=== PATIENT | female | born 1970 | race Caucasian/White ===

== ENCOUNTER 2021-10-04 09:16 | Outpatient (CLI) | payer BC, OTHER, SELFPAY ==
[2021-10-04 13:38] LABS: Basophils Absolute Auto 0.02 K/uL (0.00-0.30); Basophils Percent Auto 0.3 % (0.0-3.0); Eosinophils Absolute Auto 0.13 K/uL (0.00-0.50); Eosinophils Percent Auto 2.1 % (0.0-7.0); Hematocrit 39.6 % (33.0-51.0); Hemoglobin* 13.7 gm/dL (12.0-16.0); Immature Granulocytes Abs Auto 0.01 K/uL (0.00-0.30); Lymphocytes Absolute Auto 1.54 K/uL (0.90-2.90); Lymphocytes Percent Auto 24.7 % (20-44); Mean Corpuscular HGB Conc 35 gm/dL (32-36); Mean Corpuscular Hemoglobin 32 pg (26-34); Mean Corpuscular Volume 92 fL (80-100); Monocytes Percent Auto 8.8 % (0.0-11.0); Neutrophils Absolute Auto 3.99 K/uL (1.7-7.0); Neutrophils Percent Auto 63.9 % (42.0-72.0); Platelet Count* 293 K/uL (140-440); RDW Coefficient of Variation % 12.2 % (11.5-15.5); Red Blood Count 4.32 m/uL (4.00-5.20); White Blood Count* 6.24 K/uL (4.50-11.00)
[2021-10-04 13:40] LABS: Slide Review Reflex No
[2021-10-04 13:46] LABS: Albumin* 4.6 g/dL (3.3-5.0); Chloride* 102 mmol/L (96-114); Potassium* 4.1 mmol/L (3.6-5.1); Sodium* 136 mmol/L (135-149)
[2021-10-04 13:48] LABS: Cholesterol* 179 mg/dL (90-199)
[2021-10-04 13:49] LABS: Alanine Aminotransferase* 21 U/L (4-35); Alkaline Phosphatase* 65 U/L (40-150); Aspartate Amino Transferase* 29 U/L (12-35); Bilirubin Total* 0.6 mg/dL (0.1-1.5); Blood Urea Nitrogen* 15 mg/dL (7-30); Calcium* 9.3 mg/dL (8.4-10.6); Carbon Dioxide* 24 mmol/L (20-32); Creatinine* 0.7 mg/dL (0.5-1.5); Estimated Glomerular Filt Rate 104 ml/min; Glucose* 93 mg/dL (60-115); HDL Cholesterol* 69 mg/dL (>=50); LDL Cholesterol Calculated 88 mg/dL (<100); Total Protein* 8.1 g/dL (6.0-8.3); Triglycerides* 109 mg/dL (40-149)
[2021-10-04 14:02] LABS: Free T4 Free Thyroxine* 1.19 ng/dL (0.70-1.85)
[2021-10-05 12:42] LABS: Total T3 73 ng/dL (80-200)
== END 2021-10-04 09:17 | disposition home or self-care (01) ==
PROVIDERS: PCP Nurse Practitioner Family; Visit Provider Nurse Practitioner Family
DX: Z00.00 Encounter for general adult medical examination without abnormal findings (principal); E03.9 Hypothyroidism, unspecified; E78.5 Hyperlipidemia, unspecified; R10.31 Right lower quadrant pain; F41.9 Anxiety disorder, unspecified
CPT/HCPCS: 36415; 80053; 80061; 84439; 84443; 84480; 85025

== ENCOUNTER 2021-10-22 11:42 | Outpatient (CLI) | payer BC, OTHER, SELFPAY ==
--- OUTSIDE RECORDS SUMMARY | 2021-10-22 11:45 | XMS_ITS | Encounter Summary ---
:1970 Author Organization [facility] Address [address] [place] [address] Care Team Providers Name Role Phone Tiffanie Mcgovern APRN, KYLE Primary Care Provider [phone] Reason for Visit Reason Comments Med Refill Encounter Details Date Type Department Care Team Description 06/11/2021 Refill SE Endocrinology Muthusamy, Postablative hypothyroidism [address] [facility] MD Valerie [place], [place] [address] Social History Tobacco Use Types Packs/Day Years Used Date Former Smoker Quit: 10/2018 Smokeless Tobacco: Never Used Alcohol Use Standard Drinks/Week Comments Yes 0 (1 standard drink = 0.6 oz pure alcoho l) Alcohol Habits Answer Date Recorded How often do you have a drink containing alcohol? Never 06/09/2019 How many drinks containing alcohol do you have on a typical Not asked day when you are drinking? How often do you have six or more drinks on one occasion? No t asked Comment: Not asked Sex Assigned at Date Recorded Female 10/20/2019 7:44 AM CDT documented as of this encounter Miscellaneous Notes Telephone Encounter - Chelsea Romero RN - 06/11/2021 8:26 AM CDT Please refuse, patient has switched cares to another provider. Telephone Encounter - Jo Ann Anaya MA - 06/11/2021 7:34 AM CDT Images from the original note were not included. See patient message note dated 03/04/21: Will forward rx request to PCP. Telephone Encounter - Kathleen Martinez LPN - 06/11/2021 7:22 AM CDT Last visit in provider department: 09/27/2020 Last visit requested medication was discussed: 09/27/2020 Per note on 09/27/2020 Follow-up visit will be arranged in 6 months with repeat TSH and free T4. If stable at that point, we can consider transitioning care to primary care provider. Last Rx: 09/27/2020 # 90, 1 refill Requested Prescriptions Pending Prescriptions Disp Refills ??? levothyroxine (SYNTHROID) 100 MCG tablet [Pharmacy Med Name: LEVOTHYROXINE SODIUM 100MCG TABS] 90 tablet 1 Sig: TAKE ONE TABLET BY MOUTH DAILY - 6 DAYS OF THE WEEK FROM FRIDAY THRU FRIDAY , AND TAKE ONE AND ONE-HALF TABLETS ON FRIDAY. Labs: Component Latest Ref Rng & Units 02/21/2021 Free T4 0.78 - 2.19 ng/dL 1.24 Component Latest Ref Rng & Units 02/21/2021 TSH 0.46 - 4.68 mIU/L 2.17 No pending labs Vitals: BP Readings from Last 2 Encounters: 02/27/21 126/84 09/20/20 126/88 Upcoming appointment with provider: Visit date not found Patient is due for appointment, and labs.. PSR/Nurse: Please contact patient to assist with scheduling. documented in this encounter Plan of Treatment Not on filedocumented as of this encounter Visit Diagnoses Diagnosis Postablative hypothyroidism Other postablative hypothyroidism documented in this encounter Care Teams Air Compressor Engineer Relationship Specialty Start Date End Date Tiffanie Mcgovern, DEVELOPMENT ARCHITECT, WARES SORTER PCP - General Family Medicine 02/27/[address] [place] [address] ERNESTO MACEDO [id number] documented as of this encounter
--- OUTSIDE RECORDS SUMMARY | 2021-10-22 11:45 | XMS_ITS | Encounter Summary ---
:1970 Author Organization [facility] Address [address] [place] [address] Care Team Providers Name Role Phone Roopa Lopez MD Primary Care Provider Encounter Details Date Type Department Care Team Description 10/10/2020 Orders Only Roopa Caldwell Other migraine without [address] MD Raheel status migrainosus, not Robert Guerrero MD [phone] intractable (Primary [phone] [facility]) [place] [address] Social History Tobacco Use Types Packs/Day Years [...] AM CDT documented as of this encounter Plan of Treatment Not on filedocumented as of this encounter Visit Diagnoses Diagnosis Other migraine without status migrainosu s, not intractable - Primary documented in this encounter Care Teams Social Sciences Department Chair Relationship Specialty Start Date End Date Roopa Lopez MD PCP - General Family Medicine 07/15/19 02/26/[address] [place] [address] documented as of this encounter
--- OUTSIDE RECORDS SUMMARY | 2021-10-22 11:45 | XMS_ITS | Encounter Summary ---
:1970 Author Organization [facility] Address [address] [place] [address] Care Team Providers Name Role Phone Roopa Lopez MD Primary Care Provider Reason for Visit Reason Comments Hypothyroidism Graves' Disease Encounter Details Date Type Department Care Team Description 03/29/2020 [facility] Endocrinology Moriah, Postablative hypothyroidism (Primary Dx); [facility] MD Valerie Graves disease; [place] [address] Stress at home [phone] Social History Tobacco Use Types Packs/Day Years [...] AM CDT documented as of this encounter Patient Instructions Patient InstructionsValerie Major MD - 03/29/2020 9:00 AM CST 1. Call COVID triage line at [phone] 2. Continue the same dose of Levothyroxine 3. Recheck thyroid labs in 3 months ISITIONS LOGISTICS ANALYST documented in this encounter Progress Notes Valerie Major MD - 03/29/2020 9:00 AM CST Estab Patient Telehealth Primary Care Provider: Roopa Lopez MD Chief Complaint: Follow-up of postablative hypothyroidism and Graves' disease Subjective Patient ID: Laura Novak is a 49 y.o. female. DISEASE SUMMARY: Patient presented for initial consultation on 07/02/2019 with completely suppressed TSH with elevated free T4 and free T3 of 3.30 (0.78-2.19) and 7 (2.8-4.4) and thyrotropin receptor antibody of 2.76 (0-1.75). Her presenting symptoms include fatigue and generalized achiness since April 2019 and symptoms of palpitations, shakiness and sense of pressure in her throat for 1 month. She was initially started on methimazole but opted for radioiodine treatment and methimazole wasdiscontinued on 07/10/2019. She subsequently underwent radioiodine treatment with 14 MCI of I-131 on 07/21/2019. Noted to be hypothyroid and started on levothyroxine replacement in 09/2019. HPI S/p radioiodine treatment with 14 MCI of I-131 on 07/21/2019 Last telemedicine visit in 12/2019. Patient reports having symptoms of achiness and vomiting since yesterday night. No fever. Otherwise was feeling at baseline prior. Taking Levothyroxine appropriately and compliantly. Not taking any interfering supplements. No Biotin intake. Not much concerns with edema/fluid retention. Not taking Furosemide mostly. Continues to have low energy and daytime sleepiness. Denies any sleep concerns. No bowel concerns. Had some palpitations last night but none otherwise. No tremors. Has heat intolerance. Reports some change in mood related to stress at home. Denies any weight change. SOCIAL HISTORY: . Lives with her . Has 2 children aged 21 and 17. 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 Review of systems: As in HPI. All other systems negative. LAB RESULTS Recent Results (from the past 336 hour(s)) T4, free Collection Time: 03/27/20 9:58 AM Result Value Ref Range Free T4 1.17 0.78 - 2.19 ng/dL TSH Collection Time: 03/27/20 9:58 AM Result Value Ref Range TSH, Sensitive 0.87 0.46 - 4.68 mIU/L Outpatient Encounter Medications as of 03/29/2020 Medication Sig Dispense Refill ??? levothyroxine (SYNTHROID) 112 MCG tablet Take 1 tablet daily on empty stomach with water in morning; wait 1/2 hr to eat/drink anything else; separate vitamins to evening 90 tablet 1 ??? LORazepam (ATIVAN) 1 MG tablet May take one tab daily if needed for anxiety 30 tablet 1 ??? sertraline (ZOLOFT) 50 MG tablet TAKE ONE TABLET BY MOUTH EVERY MORNING FOR ANXIETY AND DEPRESSION (Patient taking differently: TAKE 1 TABLET BY MOUTH EVERY MORNING FOR ANXIETY AND DEPRESSION) 90 tablet 3 ??? simvastatin (ZOCOR) 20 MG tablet Take 1 tablet (20 mg total) by mouth every night 90 tablet 3 ??? traZODone (DESYREL) 50 MG tablet Take 1 tablet (50 mg total) by mouth every night 1 to 2 nightly(Patient taking differently: 1 to 2 tablets every night) 90 tablet 3 ??? verapamil ER (VERELAN) 240 MG 24 hr capsule TAKE ONE CAPSULE BY MOUTH ONCE DAILY 90 capsule 3 ??? [DISCONTINUED] levothyroxine (SYNTHROID) 112 MCG tablet Take 1 tablet daily on empty stomach with water in morning; wait 1/2 hr to eat/drink anything else; separate vitamins to evening 90 tablet 1 ??? Bacillus Coagulans-Inulin (PROBIOTIC-PREBIOTIC PO) Take 1-2 each by mouth 1 (one) time each day Chewables ??? furosemide (LASIX) 20 MG tablet TAKE ONE TABLET BY MOUTH EVERY DAY (Patient not taking: Reportedon 12/28/2019) 90 tablet 1 No facility-administered encounter medications on file as of 03/29/2020. Allergies as of 03/29/2020 - Reviewed 03/29/2020 Allergen Reaction Noted ??? Morphine Itching 07/13/2010 ??? Oxycodone-acetaminophen Itching 07/13/2010 Objective Visit Vitals Smoking Status Former Smoker Physical Exam General-appears well, no apparent distress Assessment/Plan Diagnoses and all orders for this visit: Postablative hypothyroidism - levothyroxine (SYNTHROID) 112 MCG tablet; Take 1 tablet daily on empty stomach with water in morning; wait 1/2 hr to eat/drink anything else; separate vitamins to evening - T4, free; Future - TSH; Future - T4, free; Future - TSH; Future Graves disease Stress at home S/p radioiodine treatment with 14 MCI of I-131 on 07/21/2019 1. Her thyroid levels are currently optimal and she will continue on the same dose of Levothyroxine. 2. Follow-up thyroid labs will be arranged in 3 months and follow-up visit in 6 months with repeat TSH and free T4. 3. Patient otherwise takes her levothyroxine optimally and compliantly. 4. Patient was given contact for [place] [address] triage line with acute onset symptoms including myalgias. 5. Also with ongoing stress in life, recommended patient to communicate with us if desiring to proceed with psychology counseling at any time.. Patient understands and agrees with the above plan. ISITIONS LOGISTICS ANALYST Belem Moraes - 03/29/2020 9:00 AM CST Scheduled. Patient will do labs in 3 months in [place] ISITIONS LOGISTICS ANALYST documented in this encounter Plan of Treatment Not on filedocumented as of this encounter Results TSH (09/25/2020 8:21 AM CDT) athologist Signature TSH, Sensitive 3.02 0.46 - 09/25/2020 [facility] 4.68 mIU/L 2:31 PM CDT [facility] Comment: The results from this or any other diagn ostic test should be used and interpreted only in the context of the overall clinical picture. Biotin levels in serum remain elevated f or up to 24 hours after oral or intravenous biotin adminis tration and may interfere with this assay to produce unr eliable results. Heterophilic antibodies in serum or plas ma samples may cause interference in immunoassays. ??Exposure to animal antigens, either in the environment or as part of treatment or imaging procedures, may have circulating anti-an imal antibodies present. These antibodies may interfere with the assay reagents to produce unreliable results. ??Results which are inconsistent with clinical observations indicate the need for additional testing. Specimen Anatomical Collection Method Collection Time Receive d Time (Source) Location / / Volume Laterality Blood 09/25/2020 8:21 AM 1 CDT 12:58 PM CDT Valerie Major MD LAB BLOOD ORDERABLES Performing Organization Address [facility]/ZIP [facility] [facility] [address] [place] [address] T4, free (09/25/2020 8:21 AM CDT) P athologist Signature Free T4 1.10 0.78 - 2.19 09/25/2020 [facility] ng/dL 2:31 PM CDT [facility] Comment: The results from this or any other diagn ostic test should be used and interpreted only in the context of the overall clinical picture. Heterophilic antibodies in serum or plas ma samples may cause interference in immunoassays. ??Exposure to animal antigens, either in the environment or as part of treatment or imaging procedures, may have circulating anti-an imal antibodies present. These antibodies may interfere with the assay reagents to produce unreliable results. ??Results which are inconsistent with clinical observations indicate the need for additional testing. Specimen Anatomical Collection Method Collection Time Receive d Time (Source) Location / / Volume Laterality Blood 09/25/2020 8:21 AM 1 CDT 12:58 PM CDT Valerie Major MD LAB BLOOD ORDERABLES Performing Organization Address [facility] Phon e Number [facility] [address] [place] [phone] (ABNORMAL) TSH (06/27/2020 8:27 AM CDT) Analysis Performed At Patho logist Time Signature TSH, Sensitive 0.26 (L) 0.46 - 06/27/2020 [facility] 4.68 mIU/L 2:55 PM CDT [facility] Comment: The results from this or any other diagn ostic test should be used and interpreted only in the context of the overall clinical picture. Biotin levels in serum remain elevated f or up to 24 hours after oral or intravenous biotin adminis tration and may interfere with this assay to produce unr eliable results. Heterophilic antibodies in serum or plas ma samples may cause interference in immunoassays. ??Exposure to animal antigens, either in the environment or as part of treatment or imaging procedures, may have circulating anti-an imal antibodies present. These antibodies may interfere with the assay reagents to produce unreliable results. ??Results which are inconsistent with clinical observations indicate the need for additional testing. Specimen Anatomical Collection Method Collection Time Receive d Time (Source) Location / / Volume Laterality Blood 06/27/2020 8:27 AM 1 1:08 CDT PM CDT Valerie Major MD LAB BLOOD ORDERABLES Performing Organization Address [facility] Phon e Number [facility] [address] [place] [phone] T4, free (06/27/2020 8:27 AM CDT) athologist Signature Free T4 1.31 0.78 - 2.19 06/27/2020 [facility] ng/dL 2:53 PM CDT [facility] Comment: The results from this or any other diagn ostic test should be used and interpreted only in the context of the overall clinical picture. Heterophilic antibodies in serum or plas ma samples may cause interference in immunoassays. ??Exposure to animal antigens, either in the environment or as part of treatment or imaging procedures, may have circulating anti-an imal antibodies present. These antibodies may interfere with the assay reagents to produce unreliable results. ??Results which are inconsistent with clinical observations indicate the need for additional testing. Specimen Anatomical Collection Method Collection Time Receive d Time (Source) Location / / Volume Laterality Blood 06/27/2020 8:27 AM 1 1:08 CDT PM CDT Valerie Major MD LAB BLOOD ORDERABLES Performing Organization Address City/[facility] Code [facility] e Number [facility] [address] [place] [phone] documented in this encounter Visit Diagnoses Diagnosis Postablative hypothyroidism - Primary Other postablative hypothyroidism Graves disease Toxic diffuse goiter without mention of thyrotoxic crisis or storm Stress at home documented in this encounter Care Teams Paver Relationship Specialty Start Date End Date Roopa Lopez MD PCP - General Family Medicine 07/15/19 02/26/[address] [place] [address] documented as of this encounter
--- OUTSIDE RECORDS SUMMARY | 2021-10-22 11:45 | XMS_ITS | Encounter Summary ---
:1970 Author Organization [facility] Address [address] [place] [address] Care Team Providers Name Role Phone Roopa Lopez MD Primary Care Provider Encounter Details Date Type Department Care Team Description 06/27/2020 Lab Robert Guerrero History of coronary vasospas m; [address] Mixed hyperlipidemia; [place] [address] Essential hypertension; [phone] Postablative hy pothyroidism Social History Tobacco Use Types Packs/Day Years [...] Not on filedocumented as of this encounter Procedures Procedure Name Priority Date/Time Associated Diagnosis Comme nts GLOMERULAR FILTRATION Routine 06/27/2020 8:27 Essential hypert ension Results for this RATE AM CDT procedure are i n the results section. TSH Routine 06/27/2020 8:27 Postablative Results for this AM CDT hypothyroidism procedure are in the results section. T4, FREE Routine 06/27/2020 8:27 Postablative Results for this AM CDT hypothyroidism procedure are in the results section. MAGNESIUM Routine 06/27/2020 8:27 History of coronary Resul ts for this AM CDT vasospasm procedure are i n the results section. HEMOGLOBIN A1C Routine 06/27/2020 8:27 Mixed hyperlipidemia Re sults for this AM CDT procedure are i n the results section. LIPID PANEL Routine 06/27/2020 8:27 Mixed hyperlipidemia Resu lts for this AM CDT procedure are i n the results section. COMPREHENSIVE Routine 06/27/2020 8:27 Essential hypertension R esults for this METABOLIC PANEL AM CDT procedure ar e in the results section. documented in this encounter Results Glomerular filtration rate (GFR) (06/27/2020 8:27 AM CDT) athologist Signature GFR >60 06/27/2020 [facility] 2:13 PM CDT [facility] >60 06/27/2020 [facility] Latvian GFR 2:13 PM CDT [facility] Comment: GFR calculated from serum creatinine v alue Chronic Kidney Disease less than 60 mL/m in/1.73 m2 Kidney Failure less than 15 mL/min/1.73 m2 Note: effective 07/23/06 IDMS-Traceable MDRD Study Equation used. Specimen Anatomical Collection Method Collection Time Receive d Time (Source) Location / / Volume Laterality 06/27/2020 8:27 AM 8:27 CDT AM CDT Catalina Pennington APRN, BOWLING OR SKATING FRONT DESK CLERK LAB BLOOD ORDERABLES Performing Organization Address City/State/ZIP Code Phon e Number [facility] [address] [place] [address] T4, free (06/27/2020 8:27 AM CDT) athologist Signature Free T4 1.31 0.78 - 2.19 06/27/2020 [facility] ng/dL 2:53 PM CDT [facility] Comment: [...] MD LAB BLOOD ORDERABLES Performing Organization Address [facility] Code Phon e Number [facility] [address] [place] [address] (ABNORMAL) TSH (06/27/2020 8:27 AM CDT) Analysis Performed At Patho logist Time Signature TSH, Sensitive 0.26 (L) 0.46 - 06/27/2020 [facility] 4.68 mIU/L 2:55 PM CDT [facility] Comment: The results from this [...] MD LAB BLOOD ORDERABLES Performing Organization Address City/[facility] Code Phon e Number [facility] [address] [place] [address] (ABNORMAL) Comprehensive metabolic panel (06/27/2020 8:27 AM CDT) Patholo gist Method Time Signature Total Protein 7.3 6.3 - 8.2 06/27/2020 [facility] g/dL 2:13 PM [facility] Albumin, Serum 4.2 3.5 - 5.0 06/27/2020 [facility] g/dL 2:13 PM CDT [facility] Total Bilirubin <0.7 0.1 - 1.0 06/27/2020 [facility] mg/dL 2:13 PM [facility] AST 26 8 - 43 U/L 06/27/2020 [facility] 2:13 PM [facility] Alkaline 66 38 - 128 06/27/2020 [facility] Phosphatase U/L 2:13 PM [facility] ALT (SGPT) 19 0 - 34 U/L 06/27/2020 [facility] 2:13 PM [facility] Sodium 139 135 - 145 06/27/2020 [facility] mEq/L 2:13 PM [facility] Potassium 4.1 3.5 - 5.1 06/27/2020 [facility] mEq/L 2:13 PM [facility] Chloride 106 98 - 107 06/27/2020 [facility] mEq/L 2:13 PM [facility] CO2 27 22 - 29 06/27/2020 [facility] mmol/L 2:13 PM [facility] BUN 17 5 - 25 06/27/2020 [facility] mg/dL 2:13 PM [facility] Creatinine 0.7 0.4 - 1.2 06/27/2020 [facility] mg/dL 2:13 PM [facility] Glucose 105 (H) 70 - 100 06/27/2020 [facility] mg/dL 2:13 PM [facility] Calcium, Total,S 9.3 8.4 - 10.2 06/27/2020 [facility] mg/dL 2:13 PM [facility] Specimen Anatomical Collection Method Collection Time Receive d Time (Source) Location / / Volume Laterality Blood 06/27/2020 8:27 AM CDT 12:50 PM CDT Catalina Pennington APRN, KYLE LAB BLOOD ORDERABLES Performing Organization Address City/State/ZIP Code Phon e Number [facility] [address] [place] [address] Hemoglobin A1c (06/27/2020 8:27 AM CDT) P athologist Signature Hemoglobin A1C 5.4 4.0 - 5.6 06/27/2020 [facility] % A1C 2:09 PM [facility] Comment: Reference Range 4.0-5.6% is for non-preg nant adults >=18 yrs <5.6% ? Non-Diabetic 5.7-6.4% ??Increased risk of Diabetes >=6.5% ?Indicative of Diabetes <7.0% ? ADA goal for glycemic contro l Methodology may not detect all hemoglobi n variants which can affect A1c results. Method certified by National Glycohemoglobin Standardization Program. Specimen Anatomical Collection Method Collection Time Receive d Time (Source) Location / / Volume Laterality Blood 06/27/2020 8:27 AM CDT 12:50 PM CDT Catalina Pennington APRN, CNP LAB BLOOD ORDERABLES Performing Organization Address City/State/ZIP Code Phon e Number [facility] [address] [place] [address] Lipid panel (06/27/2020 8:27 AM CDT) athologist Signature Cholesterol 166 0 - 199 06/27/2020 [facility] mg/dL 2:13 PM [facility] Comment: Recommended by National Cholesterol Education Program (ATP III) -------- Cholesterol Ranges -------- <200 ?Desirable 200-239 ? Borderline high >=240 ? High Triglycerides 126 0 - 149 mg/dL 06/27/2020 2:13 PM T [facility] Comment: -------- TRIG Ranges -------- <150 ?Normal 150-199 ? Borderline high 200-499 ? High >=500 ? Very high HDL 58 40 - 250 mg/dL 06/27/2020 2:13 PM CDT [facility] Comment: -------- HDL Ranges -------- <40 ?Low 40-59 ?Normal >=60 ? Optimal LDL Calculated 83 0 - 99 mg/dL 06/27/2020 2:13 PM CDT [facility] Comment: -------- LDL Ranges -------- <100 ? Optimal 100-129 ?Near optimal/above op timal 130-159 ?Borderline high 160-189 ?High >=190 ?Very high Fasting? Yes 06/27/2020 8:31 AM CDT [facility] Specimen Anatomical Collection Method Collection Time Receive d Time (Source) Location / / Volume Laterality Blood 06/27/2020 8:27 AM 1 CDT 12:50 PM CDT Catalina Pennington APRN, CNP LAB BLOOD ORDERABLES Performing Organization Address City/[facility]/ZIP Code Phon e Number [facility] [address] [place] [phone] Magnesium (06/27/2020 8:27 AM CDT) P athologist Signature Magnesium 2.0 1.6 - 2.3 06/27/2020 [facility] mg/dL 2:13 PM CDT [facility] Specimen Anatomical Collection Method Collection Time Receive d Time (Source) Location / / Volume Laterality Blood 06/27/2020 8:27 AM 1 CDT 12:50 PM CDT Catalina Pennington APRN, CNP LAB BLOOD ORDERABLES Performing Organization Address City/[facility] Phon e Number [facility] [address] [place] [address] documented in this encounter Visit Diagnoses Diagnosis History of coronary vasospasm Mixed hyperlipidemia Essential hypertension Unspecified essential hypertension Postablative hypothyroidism Other postablative hypothyroidism documented in this encounter Care Teams Pretzel Cooker Relationship Specialty Start Date End Date Roopa Lopez MD PCP - General Family Medicine 07/15/19 02/26/[address] [place] [address] documented as of this encounter
--- OUTSIDE RECORDS SUMMARY | 2021-10-22 11:45 | XMS_ITS | Encounter Summary ---
:1970 Author Organization [facility] Address [address] [place] [address] Care Team Providers Name Role Phone Roopa Lopez MD Primary Care Provider Reason for Visit Reason Comments tb testing Encounter Details Date Type Department Care Team Description 06/27/2020 Immunization Robert Guerrero Visit for TB skin test [address] (Primary Dx) Robert Guerrero [place] [address] Social History Tobacco Use Types Packs/Day Years [...] AM CDT documented as of this encounter Progress Notes Zuleyka Manriquez LPN - 06/27/2020 8:10 AM CDT Laura had her TB testing today, she was reminded that we need to check results in 48 hours. She willprobably have the nurse read in at her work. documented in this encounter Plan of Treatment Not on filedocumented as of this encounter Visit Diagnoses Diagnosis Visit for TB skin test - Primary documented in this encounter Care Teams Instructional Resource Teacher Relationship Specialty Start Date End Date Roopa Lopez MD PCP - General Family Medicine 07/15/19 02/26/[address] [place] [address] documented as of this encounter
--- OUTSIDE RECORDS SUMMARY | 2021-10-22 11:45 | XMS_ITS | Encounter Summary ---
:1970 Author Organization [facility] Address [address] [place] [address] Care Team Providers Name Role Phone Roopa Lopez MD Primary Care Provider Encounter Details Date Type Department Care Team Description 05/31/2020 Orders Only SE Family [facility] Roopa Lopez MD [address] [facility] [address] [place] [address] [place], [place] [phone] (Wo rk) Social History Tobacco Use Types Packs/Day Years [...] filedocumented as of this encounter Visit Diagnoses Not on filedocumented in this encounter Care Teams Neonatal Critical Care Nurse Relationship Specialty Start Date End Date Roopa Lopez MD PCP - General Family Medicine 07/15/19 02/26/[address] [place] [address] documented as of this encounter
--- OUTSIDE RECORDS SUMMARY | 2021-10-22 11:45 | XMS_ITS | Encounter Summary ---
:1970 Author Organization [facility] Address [address] [place] [address] Care Team Providers Name Role Phone Roopa Lopez MD Primary Care Provider Reason for Visit Reason Comments Med Refill Encounter Details Date Type Department Care Team Description 07/05/2020 Refill SE Endocrinology M[place], Postablative hypothyroidism [address] MD [place]erie [place], [place] [id number] Social History Tobacco Use Types Packs/Day Years [...] this encounter Miscellaneous Notes Telephone Encounter - Kathleen Martinez LPN - 07/05/2020 7:47 AM CDT [facility] is requesting medication. Previous script was sent to [facility] Last visit in provider department: 03/29/2020 Last visit requested medication was discussed: 03/29/2020 Upcoming appointment with provider: 09/27/2020 Last Rx: 03/29/2020 # 90, 1 refill Requested Prescriptions Pending Prescriptions Disp Refills ??? levothyroxine (SYNTHROID) 112 MCG tablet [Pharmacy Med Name: LEVOTHYROXINE SODIUM 112MCG TABS] 90 tablet 1 Sig: TAKE ONE TABLET BY MOUTH EVERY DAY IN THE MORNING ON AN EMPTY STOMACH WITH WATER. WAIT 30 MINUTES TO EAT/DRINK AFTER TAKING; SEPARATE VITAMINS TO EVENING. Labs: Component Latest Ref Rng & Units 06/27/2020 Free T4 0.78 - 2.19 ng/dL 1.31 Component Latest Ref Rng & Units 06/27/2020 TSH 0.46 - 4.68 mIU/L 0.26 (L) Patient has pending labs Vitals: BP Readings from Last 2 Encounters: 06/29/20 132/84 04/27/20 130/67 Please advise pharmacy on refill request, thank you! documented in this encounter Plan of Treatment Not on filedocumented as of this encounter Visit Diagnoses Diagnosis Postablative hypothyroidism Other postablative hypothyroidism documented in this encounter Care Teams Orthopedic Specialist Relationship Specialty Start Date End Date Roopa Lopez MD PCP - General Family Medicine 07/15/19 02/26/[address] [place] [address] documented as of this encounter
--- OUTSIDE RECORDS SUMMARY | 2021-10-22 11:45 | XMS_ITS | Encounter Summary ---
:1970 Author Organization [facility] Address [address] [place] [address] Care Team Providers Name Role Phone Roopa Lopez MD Primary Care Provider Reason for Visit Reason Comments Med Refill Encounter Details Date Type Department Care Team Description 10/22/2020 Refill Roopa Caldwell, History of coronary [address] [facility] [address] vasospasm [place] [address] [phone] Rogelio Guerrero ERNESTO [address] Social History Tobacco Use Types Packs/Day Years [...] this encounter Miscellaneous Notes Telephone Encounter - Maris Gunderson MA - 10/26/2020 12:47 PM CDT Last visit in provider department: 09/20/2020 Last visit requested medication was discussed: 09/20/20 Upcoming appointment with provider: none Last Rx: 09/02/20, #90, 3 refills Requested Prescriptions Pending Prescriptions Disp Refills ??? verapamil ER (VERELAN) 240 MG 24 hr capsule [Pharmacy Med Name: VERAPAMIL HCL ER 240MG CP24] 90 capsule 3 Sig: TAKE ONE CAPSULE BY MOUTH ONCE DAILY documented in this encounter Plan of Treatment Not on filedocumented as of this encounter Visit Diagnoses Diagnosis History of coronary vasospasm documented in this encounter Care Teams Core Maker Helper Relationship Specialty Start Date End Date Roopa Lopez MD PCP - General Family Medicine 07/15/19 02/26/[address] [place] [address] documented as of this encounter
--- OUTSIDE RECORDS SUMMARY | 2021-10-22 11:45 | XMS_ITS | Encounter Summary ---
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 07/15/19 02/26/21 [address] [place] [address] documented as of this encounter
--- OUTSIDE RECORDS SUMMARY | 2021-10-22 11:45 | XMS_ITS | Encounter Summary ---
:1970 Author Organization [facility] Address [address] [place] [address] Care Team Providers Name Role Phone Roopa Lopez MD Primary Care Provider Reason for Visit Reason Comments Follow-up Encounter Details Date Type Department Care Team Description 06/29/2020 Office Visit Rogelio Guerrero Catalina Pennington A, Moderate episode of recurren t major depressive disorder (HCC) (Primary Dx); [address] SURGERY ATTENDANT, SKIVER BLOCKERS Anxiety; ERNESTO Savage [address] Insomnia, unspecified type; [phone] [place], [place] Migraine with aura and without status migrainosus, not intractable; [address] Weight disorder; [phone] Urinary inconti nence, unspecified type (Work) Social History Tobacco Use Types Packs/Day Years [...] Sign Reading Time Taken Comments Blood Pressure 132/84 06/29/2020 1:00 PM CDT Pulse 62 06/29/2020 1:00 PM CDT Temperature 36.3 ??C (97.4 ??F) 06/29/2020 1:00 PM CDT Respiratory Rate 16 06/29/2020 1:00 PM CDT Oxygen Saturation 96% 06/29/2020 1:00 PM CDT Inhaled Oxygen Concentration - - Weight 90.3 kg (199 lb) 06/29/2020 1:00 PM CDT Height 173.3 cm (5' 8.23) 06/29/2020 1:00 PM CDT Body Mass Index 30.06 06/29/2020 1:00 PM CDT documented in this encounter Patient Instructions Patient InstructionsCatalina Pennington APRN, CNP - 06/29/2020 1:00 PM CDT The code red-eating tips. Discussed tricia fruit/almond flour. documented in this encounter Progress Notes Catalina Pennington APRN, CNP - 06/29/2020 1:00 PM CDT Subjective Patient ID: Laura Novak is a 49 y.o. female. Chief Complaint Patient presents with ??? Follow-up HPI Patient presents to the [facility] for questions about weight gain and depression. Her lastvisit was approximately 2 months ago with due follow-up next month. She is concern for weight gain due to some recent medication changes. History of migraine headache with aura: Overall is doing well since our last visit. She is taking verapamil daily, she use the nortriptyline nightly for 30 days then stop the medication as she ran out of it. She is using naproxen twice a day as needed. Overall her headache has been well managed and she has a mild headache sensation every other day but does not relate this to her migraine. States she feels that her head is there. Depression/anxiety: She is concerned for weight gain due to the recent medication changes. States does not feel good about herself. She has been watching her intake, participating daily exercises without improvement of weight. She has a history of eating disorder as a child. Urinary incontinence: She is participating in physical therapy and states this is helping she does not need to use the oxybutynin medication. The following portions of the patient's chart were reviewed in this encounter and updated as appropriate: Tobacco Allergies Meds Med Hx Surg Hx Fam Hx Current Outpatient Medications: ??? levothyroxine (SYNTHROID) 112 MCG tablet, Take 1 tablet daily on empty stomach with water in morning; wait 1/2 hr to eat/drink anything else; separate vitamins to evening, Disp: 90 tablet, Rfl: 1 ??? LORazepam (ATIVAN) 1 MG tablet, May take one tab daily if needed for anxiety, Disp: 30 tablet, Rfl: 1 ??? naproxen (NAPROSYN) 375 MG tablet, Take 1 tablet (375 mg total) by mouth 2 (two) times a day if needed for mild pain Take with food., Disp: , Rfl: ??? sertraline (ZOLOFT) 50 MG tablet, TAKE ONE TABLET BY MOUTH EVERY MORNING FOR ANXIETY AND DEPRESSION (Patient taking differently: TAKE 1 TABLET BY MOUTH EVERY MORNING FOR ANXIETY AND DEPRESSION), Disp: 90 tablet, Rfl: 3 ??? simvastatin (ZOCOR) 40 MG tablet, Take 1 tablet (40 mg total) by mouth every night, Disp: 90 tablet, Rfl: 3 ??? traZODone (DESYREL) 50 MG tablet, Take 3 tablets (150 mg total) by mouth every night, Disp: 90 tablet, Rfl: 3 ??? verapamil ER (VERELAN) 240 MG 24 hr capsule, TAKE ONE CAPSULE BY MOUTH ONCE DAILY, Disp: 90 capsule, Rfl: 3 ??? Bacillus Coagulans-Inulin (PROBIOTIC-PREBIOTIC PO), Take 1-2 each by mouth 1 (one) time each dayChewables, Disp: , Rfl: ??? buPROPion (WELLBUTRIN) 75 MG tablet, Take 1 tablet (75 mg total) by mouth 2 (two) times a day 75mg daily x6 days then 75mg twice a day., Disp: 60 tablet, Rfl: 1 ??? furosemide (LASIX) 20 MG tablet, TAKE ONE TABLET BY MOUTH EVERY DAY (Patient not taking: Reported on 12/28/2019), Disp: 90 tablet, Rfl: 1 ??? metoclopramide (Reglan) 10 MG tablet, Take 1 tablet (10 mg total) by mouth every 4 (four) hours if needed (nausea/vomiting/migraine. max 4 tabs/day) (Patient not taking: Reported on 06/29/2020), Disp: 10 tablet, Rfl: 3 Allergies Allergen Reactions ??? Fluorouracil Other (see comments) Hx prinzmetal angina. ??? Propranolol Other (see comments) Hx prinzmetal angina. ??? Triptans Other (see comments) Hx prinzmetal angina. ??? Morphine Itching ??? Oxycodone-Acetaminophen Itching Review of Systems All systems reviewed and negative except HPI Objective Blood pressure 132/84, pulse 62, temperature 36.3 ??C (97.4 ??F), temperature source Temporal, resp.rate 16, height 1.733 m (5' 8.23), weight 90.3 kg (199 lb), SpO2 96 %. Physical Exam Constitutional: Appearance: Normal appearance. Cardiovascular: Rate and Rhythm: Normal rate and regular rhythm. Pulmonary: Effort: Pulmonary effort is normal. Breath sounds: Normal breath sounds. Musculoskeletal: Right lower leg: No edema. Left lower leg: No edema. Neurological: Mental Status: She is alert and oriented to person, place, and time. Psychiatric: Mood and Affect: Mood normal. Behavior: Behavior normal. Thought Content: Thought content normal. Judgment: Judgment normal. Comments: [id number] Assessment/Plan Problem List Items Addressed This Visit Nervous Migraine with aura and without status migrainosus, not intractable Overview Verapamil ER 240 daily. 04/27/20 Nortriptyline 25 mg nightly; patient used for 30days with improvement. Concern for weight gain therefore will go ahead and stop. Relevant Medications traZODone (DESYREL) 50 MG tablet naproxen (NAPROSYN) 375 MG tablet buPROPion (WELLBUTRIN) 75 MG tablet Genitourinary Urinary incontinence Overview Did not need to use the oxybutynin. Is doing well on therapy. Other Recurrent major depressive disorder (HCC) - Primary Overview Major Depressive Disorder, Recurrent Episode, Unspecified Degree unknown date of dx zoloft 50mg daily Nortriptyline 25mg nightly added 04/27/20. Patient used for 30 days and stopped. Will hold for now due to concern for weight gain. 06/29/20: Start wellbutrin 75mg BID-taper up as tolerable. Relevant Medications traZODone (DESYREL) 50 MG tablet buPROPion (WELLBUTRIN) 75 MG tablet Anxiety Overview Zoloft 50mg daily Ativan prn. Last refilled 09/2019 Insomnia Overview Patient uses 150mg nightly total. Relevant Medications traZODone (DESYREL) 50 MG tablet Weight disorder Overview History of eating disorder as a child per patient. Reviewed patient's weight from 2019 until present day she has been fluctuating in the high from 188 to 199 pounds. Today she does not have any significant weight gain compared to her trends in the past. Last visit 04/27/20 patient was at 201lbs. Patient states she is been exercising daily doing weights, treadmill, and a lot of walking. She has been participating physical therapy and states her daughter is a computer technology trainer. Also trying to lose weight and watching her intake and calories. Overall states she does not feel good about herself. Reviewed her intake from yesterday. For dinner she had a salad, lunch she had enchilada, beans and rice. States she does not drink a lot of pop and if she does she drinks the mini can of soda. She takes a lot of water and does not drink any alcohol. Weight does trend down in the warmer months. Reviewed indication for Wellbutrin she was agreeable to try this. Denies any history of seizures. Has been on this many years ago without concerns. Discussed low carb changes. Do not recommend medications like phentermine due to her cardiac history. Patient declined nutrition referral. Patient Instructions The code red-eating tips. Discussed tricia fruit/almond flour. documented in this encounter Plan of Treatment Not on filedocumented as of this encounter Visit Diagnoses Diagnosis Moderate episode of recurrent major depr essive disorder (HCC) - Primary Anxiety Anxiety state, unspecified Insomnia, unspecified type Migraine with aura and without status mi grainosus, not intractable Weight disorder Urinary incontinence, unspecified type documented in this encounter Care Teams Physical Sciences Professor Relationship Specialty Start Date End Date Roopa Lopez MD PCP - General Family Medicine 07/15/19 02/26/[address] [place] [address] documented as of this encounter
--- OUTSIDE RECORDS SUMMARY | 2021-10-22 11:45 | XMS_ITS | Encounter Summary ---
:1970 Author Organization [facility] Address [address] [place] [address] Care Team Providers Name Role Phone Tiffanie Mcgovern APRN, GLAZING SUPERINTENDENT Primary Care Provider [phone] Reason for Visit Reason Comments Cough Generalized Body Aches Nasal Congestion Encounter Details Date Type Department Care Team Description 02/27/2021 Office Visit Feliciano Restrepo, COVID-19 virus infection (Pr imary Dx); [address] [place] [address] [place] [address] [place], [place] [phone] [id number] Social History Tobacco Use Types Packs/Day Years [...] Sign Reading Time Taken Comments Blood Pressure 126/84 02/27/2021 9:40 AM DIRECT SERVICE PROVIDER Pulse 72 02/27/2021 9:40 AM DIRECT SERVICE PROVIDER Temperature 37.1 ??C (98.8 ??F) 02/27/2021 9:40 AM DIRECT SERVICE PROVIDER Respiratory Rate 12 02/27/2021 9:40 AM DIRECT SERVICE PROVIDER Oxygen Saturation 96% 02/27/2021 9:40 AM DIRECT SERVICE PROVIDER Inhaled Oxygen Concentration - - Weight 86.4 kg (190 lb 8 oz) 02/27/2021 9:40 AM DIRECT SERVICE PROVIDER Height - - Body Mass Index 28.77 09/20/2020 4:05 PM CDT documented in this encounter Patient Instructions Patient InstructionsFeliciano Anderson MD - 02/27/2021 9:40 AM CST Called patient to report positive test result for COVID- 19. Patient provided instructions for monitoring and management of symptoms at home. Patient instructed to seek immediate medical attention if they develop trouble breathing, persistent pain or pressure inthe chest, new confusion, inability to wake or stay awake, bluish lips or face, and/or other severe symptoms. Patient instructed to call 911 if there is a medical emergency and notify dispatch personnel that they may have COVID-19. Patient instructed to contact their provider if they have new or worsening symptoms or any other concerns. Repeat testing is not recommended for 90 days following a positive result. Discussed importance of self-isolation and reviewed instructions to discontinue home isolation: at least 1 days (24 hours) have passed since recovery, defined as resolution of fever without the use of fever-reducing medications and improvement in respiratory symptoms (e.g., cough, shortness of breath); AND, at least 10 days have passed since symptoms first appeared. If asymptomatic, instructed to self-isolate at least 10 days since positive lab test. If you are vaccinated, you will need to quarantine regardless of vaccination status. If you are symptom free and develop symptoms, you will need to self-isolate for 10 days from the onset of your symptoms. Further instructions provided for care of close contacts without symptoms: monitor health for fever,cough and shortness of breath during the 14 days after the last day you were in close contact with the sick person with COVID-19. Do not go to work or school, and avoid public places for 14 days. If caregiver is fully vaccinated and asymptomatic, caregiver does not need to quarantine. If you are, have an upcoming surgery/procedure, or have an upcoming appointment please contact your provider right away to inform them of this positive test result. If appropriate, patient instructed to contact their employer or school district for specific instructions regarding their return to work. [facility] was notified of positive test result. CT SERVICE PROVIDER documented in this encounter Progress Notes Feliciano Anderson MD - 02/27/2021 9:40 AM CST Subjective Patient ID: Laura Novak is a 50 y.o. female. Chief Complaint Patient presents with ??? Cough ??? Generalized Body Aches ??? Nasal Congestion HPI Patient reports sore throat, body aches, cough, right lower abdominal pain, sinus drainage, ears feel plugged, and feeling feverish/ cold/ sweats, decreased appetite, change to taste, nausea without vomiting. Symptoms really hitting hard in the past 48 hours. Denies diarrhea or constipation. She just flew back from [place], [place] a couple days ago. Was celebrating daughter's 23rd birthday and went out a bit. Patient works at [email or web address] in [employer] department. The sinus drainage and lower abdominal pain have been persistent for a few weeks. She had recent Thyroid testing which was unremarkable. She does get some allergy symptoms every time she mows the lawn but no known allergies. History of total hysterectomy. Intact ovaries. Per review of chart has had RLQ pain in October 2019 and seen with unremarkable work up including CT abdomen. The following portions of the patient's chart were reviewed in this encounter and updated as appropriate: Tobacco Allergies Meds Med Hx Surg Hx Fam Hx Soc Hx Current Outpatient Medications Medication Instructions ??? levothyroxine (SYNTHROID) 100 MCG tablet Take 1 tablet daily 6 days of the week from Friday-Friday and 1 and 1/2 tablets on Friday ??? LORazepam (ATIVAN) 1 MG tablet May take one tab daily if needed for anxiety ??? ondansetron (Zofran) 4 MG tablet May take one tab every 8 hours if needed for nausea ??? sertraline (ZOLOFT) 50 MG tablet TAKE ONE TABLET BY MOUTH EVERY MORNING FOR ANXIETY AND DEPRESSION ??? simvastatin (ZOCOR) 40 mg, Oral, Nightly ??? traZODone (DESYREL) 50 MG tablet TAKE 1 TO 2 TABLETS BY MOUTH EVERY NIGHT ??? verapamil ER (VERELAN) 240 MG 24 hr capsule TAKE ONE CAPSULE BY MOUTH ONCE DAILY ??? ZOLMitriptan (Zomig) 5 MG tablet May take one at the start of a migraine and repeat in 2 hours if needed. No more than 2 in 24 hours or 4 in a week ROS ROS done as noted in HPI Objective Visit Vitals BP 126/84 (BP Location: Right arm, Patient Position: Sitting, BP Cuff Size: Adult) Pulse 72 Temp 37.1 ??C (98.8 ??F) (Temporal) Resp 12 Wt 86.4 kg (190 lb 8 oz) SpO2 96% BMI 28.77 kg/m?? Smoking Status Former Smoker BSA 2.04 m?? Physical Exam Vitals reviewed. Constitutional: General: She is not in acute distress. Appearance: She is ill-appearing. She is not diaphoretic. HENT: Nose: Congestion present. Mouth/Throat: Mouth: Mucous membranes are moist. Pharynx: Oropharynx is clear. No oropharyngeal exudate or posterior oropharyngeal erythema. Eyes: General: No scleral icterus. Conjunctiva/sclera: Conjunctivae normal. Cardiovascular: Rate and Rhythm: Normal rate and regular rhythm. Heart sounds: Normal heart sounds. No murmur heard. No friction rub. No gallop. Pulmonary: Effort: Pulmonary effort is normal. No respiratory distress. Breath sounds: Normal breath sounds. No stridor. No wheezing, rhonchi or rales. Musculoskeletal: Cervical back: Neck supple. No rigidity. Right lower leg: No edema. Left lower leg: No edema. Lymphadenopathy: Cervical: No cervical adenopathy. Neurological: General: No focal deficit present. Mental Status: She is alert and oriented to person, place, and time. Assessment/Plan Diagnosis Plan 1. COVID-19 virus infection 2. Cough Covid-19, Rudolph ID Now, PCR Flu, Rudolph ID Now, PCR Patient Instructions Called patient to report positive test result for COVID- 19. Patient provided instructions for monitoring and management of symptoms at home. Patient instructed to seek immediate medical attention if they develop trouble breathing, persistent pain or pressure inthe chest, new confusion, inability to wake or stay awake, bluish lips or face, and/or other severe symptoms. Patient instructed to call 911 if there is a medical emergency and notify dispatch personnel that they may have COVID-19. Patient instructed to contact their provider if they have new or worsening symptoms or any other concerns. Repeat testing is not recommended for 90 days following a positive result. Discussed importance of self-isolation and reviewed instructions to discontinue home isolation: at least 1 days (24 hours) have passed since recovery, defined as resolution of fever without the use of fever-reducing medications and improvement in respiratory symptoms (e.g., cough, shortness of breath); AND, at least 10 days have passed since symptoms first appeared. If asymptomatic, instructed to self-isolate at least 10 days since positive lab test. If you are vaccinated, you will need to quarantine regardless of vaccination status. If you are symptom free and develop symptoms, you will need to self-isolate for 10 days from the onset of your symptoms. Further instructions provided for care of close contacts without symptoms: monitor health for fever,cough and shortness of breath during the 14 days after the last day you were in close contact with the sick person with COVID-19. Do not go to work or school, and avoid public places for 14 days. If caregiver is fully vaccinated and asymptomatic, caregiver does not need to quarantine. If you are, have an upcoming surgery/procedure, or have an upcoming appointment please contact your provider right away to inform them of this positive test result. If appropriate, patient instructed to contact their employer or school district for specific instructions regarding their return to work. [facility] was notified of positive test result. Return if symptoms worsen or fail to improve. Note created using voice dictation software. CT SERVICE PROVIDER documented in this encounter Plan of Treatment Not on filedocumented as of this encounter Procedures Procedure Name Priority Date/Time Associated Diagnosis Comme nts FLU(A/B), RUDOLPH ID Routine 02/27/2021 10:00 AM Cough R esults for this NOW, PCR DIRECT SERVICE PROVIDER procedure are i n the results section. COVID-19, RUDOLPH ID Routine 02/27/2021 10:00 AM Cough R esults for this NOW, PCR DIRECT SERVICE PROVIDER procedure are i n the results section. documented in this encounter Results Flu, Rudolph ID Now, PCR (02/27/2021 10:00 AM DIRECT SERVICE PROVIDER) [facility] Flu Source Nasal 02/27/2021 [facility] 10:40 AM DIRECT SERVICE PROVIDER [place] Influenza A, NEGATIVE 02/27/2021 [facility] PCR 10:40 AM DIRECT SERVICE PROVIDER [place] Influenza B, NEGATIVE Negative 02/27/2021 [facility] PCR 10:40 AM DIRECT SERVICE PROVIDER [place] Flu Interp see below 02/27/2021 [facility] 10:40 AM DIRECT SERVICE PROVIDER [place] Comment: Flu A Viral RNA Not Detected; Flu B Viral RNA Not Detected. Testing was performed using the Rudolph I D NOW A & B 2 Assay. Specimen Anatomical Collection Method Collection Time Receive d Time (Source) Location / / Volume Laterality Swab 02/27/2021 10:00 02/27/2021 AM DIRECT SERVICE PROVIDER 10:07 AM DIRECT SERVICE PROVIDER Feliciano Anderson MD LAB MOLECULAR DIAGNOSTICS OR DERABLES Performing Organization Address City/State/ZIP Code Phon e Number [facility] [address] [place] [address] (ABNORMAL) Covid-19, Rudolph ID Now, PCR (02/27/2021 10:00 AM DIRECT SERVICE PROVIDER) [facility] Method Time Signature Covid Source Nasal 02/27/2021 [facility] 10:40 AM DIRECT SERVICE PROVIDER [place]ALL[place] Covid-19, ID POSITIVE (A) Negative 02/27/2021 [facility] Now PCR 10:40 AM DIRECT SERVICE PROVIDER [place] Comment: REPORTABLE DISEASE Agent. Must be report ed to MD within 1 working day. ??(Department rece iving report is responsible for filling out [facility]-Disease Report Card). Positive results do not rule out bacteri al infection or co-infection with other viruses. Testing was performed using the Rudolph I D NOW Covid-19 assay. Fact sheets for this Emergency Use Autho rization (EUA) assay can be found at the following link s: ??Rudolph NOW Fact Sheet for Health Care Providers (fda.gov) ??Rudolph NOW Fact Sheet for Patients (f da.gov) Specimen Anatomical Collection Method Collection Time Receive d Time (Source) Location / / Volume Laterality Swab (Nasal) 02/27/2021 10:00 02/27/2021 AM DIRECT SERVICE PROVIDER 10:07 AM DIRECT SERVICE PROVIDER Feliciano Anderson MD LAB MOLECULAR DIAGNOSTICS OR DERABLES Performing Organization Address City/State/ZIP Code Phon e Number [facility] [address] [place] [address] documented in this encounter Visit Diagnoses Diagnosis COVID-19 virus infection - Primary Cough documented in this encounter Additional Health Concerns Infection Onset Date Last Indicated Resolved Time COVID-19 Rule Out 02/27/2021 02/27/2021 02/27/2021 10: 40 AM DIRECT SERVICE PROVIDER documented as of this encounter Care Teams Truck Jumper Relationship Specialty Start Date End Date Tiffanie Mcgovern, EMPLOYMENT AGENCY MANAGER, GLAZING SUPERINTENDENT PCP - General Family Medicine 02/27/21 [address] [facility] [place] [address] documented as of this encounter
--- OUTSIDE RECORDS SUMMARY | 2021-10-22 11:45 | XMS_ITS | Encounter Summary ---
:1970 Author Organization [facility] Address [address] [place] [address] Care Team Providers Name Role Phone Mynor Mcgovern APRN, KYLE Primary Care Provider [phone] Reason for Visit Reason Comments Med Refill Encounter Details Date Type Department Care Team Description 08/20/2021 Refill [place] Roopa Lopez, GUSTAVO (generalized anxiety [address] [facility] 20 MD disorder) Robert Guerrero [place] [phone] [phone] [place] [address] Social History Tobacco Use Types Packs/Day Years [...] this encounter Miscellaneous Notes Telephone Encounter - Lili Carranza LPN - 08/23/2021 4:45 PM CDT PATIENT SEE'S MYNOR MCGOVERN Telephone Encounter - Ana Le MA - 08/23/2021 9:00 AM CDT Last visit in provider department: 02/27/2021 Last visit requested medication was discussed: 09/20/2020 Last Rx: 09/05/2020 # 90, 3 refill Requested Prescriptions Pending Prescriptions Disp Refills ??? sertraline (ZOLOFT) 50 MG tablet [Pharmacy Med Name: SERTRALINE HCL 50MG TABS] 90 tablet 3 Sig: TAKE ONE TABLET BY MOUTH EVERY MORNING FOR ANXIETY AND DEPRESSION 02/27/2021 PHQ9: 6 / GAD7: 3 Upcoming appointment with provider: none Pt due to be seen. Please work with your PSR to help pt set up appt. Please advise on extension until appt. documented in this encounter Plan of Treatment Not on filedocumented as of this encounter Visit Diagnoses Diagnosis GUSTAVO (generalized anxiety disorder) Generalized anxiety disorder documented in this encounter Care Teams Solar Energy Consultant And Designer Relationship Specialty Start Date End Date Mynor Mcgovern, TESTING ANALYST, MANAGER OF CASE MANAGEMENT PCP - General Family Medicine 02/27/[address] [place] [address] [place] [id number] documented as of this encounter
--- OUTSIDE RECORDS SUMMARY | 2021-10-22 11:45 | XMS_ITS | Encounter Summary ---
:1970 Author Organization [facility] Address [address] [place] [address] Care Team Providers Name Role Phone Tiffanie Mcgovern APRN, KYLE Primary Care Provider [phone] Reason for Visit Reason Comments Med Refill Encounter Details Date Type Department Care Team Description 04/03/2021 Refill [place] Roopa Lopez MD Anxiety [address] [place], [place] [address] [place], [place] [phone] [phone] (Wo rk) Social History Tobacco Use Types [...] this encounter Miscellaneous Notes Telephone Encounter - Alyce Shah - 04/04/2021 10:59 AM CST Rx faxed to [facility] BER HAND Telephone Encounter - Chelsea Romero RN - 04/04/2021 10:53 AM CST Please fax Rx to pharmacy. BER HAND Telephone Encounter - Celsa Childs MA - 04/04/2021 10:25 AM CST Last visit in provider department: 02/27/2021 Last visit requested medication was discussed: 09/20/2020 Upcoming appointment with provider: None Last Rx: 09/20/2020- 30 with 1 refill Requested Prescriptions Pending Prescriptions Disp Refills ??? LORazepam (ATIVAN) 1 MG tablet [Pharmacy Med Name: LORAZEPAM 1MG TABS] 30 tablet 1 Sig: TAKE ONE TABLET BY MOUTH EVERY DAY NEEDED FOR ANXIETY .(REFILL NO SOONER THAN 30 DAYS) 02/27/2021- PHQ-9- 6/1 GUSTAVO-7- 3/0 Vitals: BP Readings from Last 2 Encounters: 02/27/21 126/84 09/20/20 126/88 BER HAND documented in this encounter Plan of Treatment Not on filedocumented as of this encounter Visit Diagnoses Diagnosis Anxiety Anxiety state, unspecified documented in this encounter Additional Health Concerns Infection Onset Date Last Indicated Resolved Time COVID-19 Confirmed 02/27/2021 02/27/2021 05/28/2021 8: 17 PM CDT documented as of this encounter Care Teams Painter Ski Edge Relationship Specialty Start Date End Date Tiffanie Mcgovern, ELECTRONIC SECURITY TECHNICIAN, MYSQL DATABASE ADMINISTRATOR PCP - General Family Medicine 02/27/[address] [place] [address] [place] [address] documented as of this encounter
--- OUTSIDE RECORDS SUMMARY | 2021-10-22 11:45 | XMS_ITS | Encounter Summary ---
:1970 Author Organization [facility] Address [address] [place] [address] Care Team Providers Name Role Phone Roopa Lopez MD Primary Care Provider Encounter Details Date Type Department Care Team Description 07/06/2020 Orders Only SE Endocrinology Muthusamy, Postablative [address] [place] [address] Social History Tobacco Use Types Packs/Day Years [...] hypothyroidism documented in this encounter Care Teams Belt Press Operator Relationship Specialty Start Date End Date Roopa Lopez MD PCP - General Family Medicine 07/15/19 02/26/[address] [place] [address] documented as of this encounter
--- OUTSIDE RECORDS SUMMARY | 2021-10-22 11:45 | XMS_ITS | Encounter Summary ---
:1970 Author Organization [facility] Address [address] [place] [address] Care Team Providers Name Role Phone Tiffanie Mcgovern APRN, KYLE Primary Care Provider [phone] Reason for Visit Reason Comments Med Refill Encounter Details Date Type Department Care Team Description 09/13/2021 [place]ill [place] GUSTAV[place] (generalized anxiety [address] [facility] 20 MD disorder) [place] [address] [phone] [place] [address] Social History Tobacco Use Types Packs/Day Years [...] this encounter Miscellaneous Notes Telephone Encounter - Roopa Lopez MD - 09/17/2021 3:38 PM CDT Pt has a different provider Telephone Encounter - Chelsea Romero RN - 09/17/2021 1:43 PM CDT Please refuse, patient has new pcp and does not need this filled from us. Telephone Encounter - Ana Le MA - 09/17/2021 1:34 PM CDT Last visit in provider department: 09/20/2020 Last visit requested medication was discussed: 09/20/2020 Last Rx: 09/05/2020 # 90, 3 refill Requested Prescriptions Pending Prescriptions Disp Refills ??? sertraline (ZOLOFT) 50 MG tablet [Pharmacy Med Name: SERTRALINE HCL 50MG TABS] 90 tablet 3 Sig: TAKE ONE TABLET BY MOUTH EVERY MORNING FOR ANXIETY AND DEPRESSION Vitals: BP Readings from Last 2 Encounters: 02/27/21 126/84 09/20/20 126/88 Upcoming appointment with provider: Visit date not found Pt due to be seen. Please work with your PSR to help pt set up appt. Please advise on extension until appt. documented in this encounter Plan of Treatment Not on filedocumented as of this encounter Visit Diagnoses Diagnosis GUSTAVO (generalized anxiety disorder) Generalized anxiety disorder documented in this encounter Care Teams Watchmaker Apprentice Relationship Specialty Start Date End Date Tiffanie Mcgovern, POT FEEDER, LOST CHARGE CARD CLERK PCP - General Family Medicine 02/27/[address] [place] [address] [place] [address] documented as of this encounter
--- OUTSIDE RECORDS SUMMARY | 2021-10-22 11:45 | XMS_ITS | Clinical Summary ---
:1970 Author Organization [facility] Address [address] [place] [address] Care Team Providers Name Role Phone Tiffanie Mcgovern APRN, KYLE Primary Care Provider [phone] Allergies Active Allergy Reactions Severity Noted Date Comments Fluorouracil Other (see comments) High 04/28/2020 Hx prin zmetal angina. Morphine Itching Low 07/13/2010 Oxycodone-Acetaminophen Itching Low 07/13/2010 Propranolol Other (see comments) High 04/28/2020 Hx prin zmetal angina. Triptans Other (see comments) High 04/28/2020 Hx prin zmetal angina. Medications Medication Sig Dispensed Refills Start Date End Date Status sertraline (ZOLOFT) TAKE ONE TABLET BY 90 tablet 3 09/05/2020 Active 50 MG MOUTH EVERY MORNING tabletIndications: FOR ANXIETY AND GUSTAVO (generalized DEPRESSION anxiety disorder) ondansetron (Zofran) May take one tab 10 tablet 3 09/20/2020 Active 4 MG every 8 hours if tabletIndications: needed for nausea Migraine without status migrainosus, not intractable, unspecified migraine type Additional Information Patient not taking. Reported on 02/27/2021 ZOLMitriptan (Zomig) 5 MG May take one at the 9 tablet 3 05/2020 Active tabletIndications: Other start of a migraine migraine without status and repeat in 2 hours migrainosus, not intractable if needed. No more than 2 in 24 hours or 4 in a week Additional Information Patient not taking. Reported on 02/27/2021 verapamil ER (VERELAN) 240 MG 24 TAKE ONE CAPSULE BY 90 capsule 3 10/26/2020 Active hr capsuleIndications: History MOUTH ONCE DAILY of coronary vasospasm traZODone (DESYREL) 50 MG TAKE 1 TO 2 TABLETS 90 tablet 3 09/2020 Active tabletIndications: Insomnia, BY MOUTH EVERY NIGHT unspecified type LORazepam (ATIVAN) 1 MG TAKE ONE TABLET BY 30 tablet 1 022 Active tabletIndications: Anxiety MOUTH EVERY DAY NEEDED FOR ANXIETY .(REFILL NO SOONER THAN 30 DAYS) levothyroxine (SYNTHROID) 100 TAKE ONE TABLET BY 90 tablet 1 0 06/11/2021 Active MCG tabletIndications: MOUTH DAILY - 6 DAYS Postablative hypothyroidism OF THE WEEK FROM FRIDAY THRU FRIDAY , AND TAKE ONE AND ONE-HALF TABLETS ON FRIDAY. simvastatin (ZOCOR) 40 MG Take 1 tablet (40 mg 90 tablet 3 08/2021 Active tabletIndications: Mixed total) by mouth hyperlipidemia every night Active Problems Problem Noted Date Insomnia 06/29/2020 Overview: Patient uses 150mg nightly total. Weight disorder 06/29/2020 Overview: History of eating disorder as a child pe r patient. Reviewed patient's weight from 2019 until present day she has been fluctuating in the high from 188 to 199 pounds. Today she does not have any signific ant weight gain compared to her trends i n the past. Last visit 04/27/20 patient was at 201lbs. Patient states she is been exercising daily doing weights, treadmill, and a lot of walking. She has been par ticipating physical therapy and states h er daughter is a certified personal trainer. Also trying to lose weight and watching her intake and calories. Overall states she does not feel good about herself. Reviewed her intak e from yesterday. For dinner she had a s alad, lunch she had enchilada, beans and rice. States she does not drink a lot of pop and if she does she drinks the mini can of soda. She takes a lot of water and does not drink any alcohol. Weight does trend down in the warmer fris. Urinary incontinence 04/28/2020 Overview: Did not need to use the oxybutynin. Is d oing well on therapy. Last Assessment & Plan: Oxybutynin XL 5 mg daily. Refer to physi mayuri therapy. History of coronary vasospasm 04/28/2020 Overview: triptans added to allergy list to not us e. Hypothyroidism 04/25/2020 Anxiety 04/25/2020 Overview: Zoloft 50mg daily Ativan prn. Last refilled 09/2019 Essential hypertension 04/25/2020 Overview: Verapamil ER 240 daily Last Assessment & Plan: Doing well no changes needed. If needed in the future, consider amlodipine 5- 10mg daily. Graves disease 07/09/2019 Overview: Followed by Endocrinology, Dr. Ventura . Had radioactive ablation. 07/2019. GERD without esophagitis 09/25/2015 Migraine with aura and without status migrainosus, not intractable 06/08/2015 Overview: Verapamil ER 240 daily. 04/27/20 Nortriptyline 25 mg nightly; pat ient used for 30days with improvement. Concern for weight gain therefore will go ahead and stop. Last Assessment & Plan: Patient is already on verapamil for high blood pressure also will benefit her migraine. Transitioned trazodone to nortriptyline for sleep/depression/migraine prevention. Toradol given in office, with im provement before leaving. Added naproxen twice a day starting tomorrow. Due to history of prinzmetal angina will discontinue imitrex, have not taken. Hopefully we can taper up nortriptyline to 50mg nigh tly if needed. She can message us if she decides to increase the nortriptyline. Pharmacy and patient were updated on the imitrex changes. Laura was ok with sending in the reglan to use as needed for future occurrences migraine/nausea/vomiting. Today she woke up without a headache, sh e did use an Excedrin and does not have any discomfort right now. Follow up in 3mons. Hyperlipidemia 03/01/2015 Overview: 04/27/2020: Increase Zocor to 40 mg night ly Recurrent major depressive disorder 04/24/2012 Overview: Major Depressive Disorder, Recurrent Epi sode, Unspecified Degree unknown date of dx zoloft 50mg daily Nortriptyline 25mg nightly added 04/27/20 . Patient used for 30 days and stopped. Will hold for now due to concern for weight gain. 06/29/20: Start wellbutrin 75mg BID-taper up as tolerable. Resolved Problems Problem Noted Date Resolved Date Chest pain 09/25/2015 04/25/2020 Prinzmetal angina 09/15/2015 04/25/2020 Tachycardia 02/27/2015 04/25/2020 Cervicalgia 05/17/2014 04/25/2020 Encounters Date Type Specialty Care Team Description 09/13/2021 Refill Family Medicine Roopa Lopez MD GUSTAVO (generalized anxiety disorder) 08/20/2021 Refill Family Medicine Roopa Lopez MD GUSTAVO (generalized anxiety disorder) from Last 3 Months Immunizations Name Administration Dates Next Due Hepatitis B 09/27/2002, 08/18/2002, 05/19/2002, 08/22/1998 Influenza (IM) Preservative Free 12/22/2009 Influenza 6mo-49yrs Quad Preservative 01/12/2019, 12/17/2016 Free IM Tdap 08/29/2017, 10/24/2005 Family History Medical History Relation Comments Heart failure Father Hyperthyroidism Mother Michael's thyroiditis Sister Relation Status Comments Brother 1 Alive Brother 2 Alive Daughter 1 Alive Daughter 2 Alive Father Mother Alive Sister Alive Social History Tobacco Use Types Packs/Day Years [...] Date Recorded Female 10/20/2019 7:44 AM CDT Last Filed Vital Signs Vital Sign Reading Time Taken Comments Blood Pressure 126/84 02/27/2021 9:40 AM SUPERVISOR MACHINE SETTER Pulse 72 02/27/2021 9:40 AM SUPERVISOR MACHINE SETTER Temperature 37.1 ??C (98.8 ??F) 02/27/2021 9:40 AM SUPERVISOR MACHINE SETTER Respiratory Rate 12 02/27/2021 9:40 AM SUPERVISOR MACHINE SETTER Oxygen Saturation 96% 02/27/2021 9:40 AM SUPERVISOR MACHINE SETTER Inhaled Oxygen Concentration - - Weight 86.4 kg (190 lb 8 oz) 02/27/2021 9:40 AM SUPERVISOR MACHINE SETTER Height 173.3 cm (5' 8.23) 09/20/2020 4:05 PM CDT Body Mass Index 28.77 09/20/2020 4:05 PM CDT Plan of Treatment Health Maintenance Due Date Last Done Comments COVID-19 Vaccine (3 - 09/30/2020 05/03/2020, Booster for Moderna series) 04/05/2020 Mammogram 11/07/2020 11/08/2019, 10/27/2018, 10/27/2018 Colorectal Cancer Screenin05/12/2023 05/11/2020 FIT-DNA [facility] Pneumococcal Vaccine: 2034 65+ Years (1 - PCV) HPV Vaccines Aged Out No longer eligib le based on patient's age to complete this to pic [facility] Pneumococcal Vaccine: Aged Out No ivette britt eligible based <64 on patient's age to complete this to pic Pap Smear Discontinued Insurance Payer Benefit Plan / Subscriber ID Effective Dates Phone Addre ss Type Group BCBS OF BCBS OF [id number] 2020-Prese [address] [address] [place] [address] [address] [facility] [place] [id number] Care Teams Editor Map Relationship Specialty Start Date End Date Tiffanie Mcgovern, TIME CLOCK MECHANIC, RAW PRODUCTS DIRECTOR PCP - General Family Medicine 02/27/21 [address] [facility] [place] [address]
--- OUTSIDE RECORDS SUMMARY | 2021-10-22 11:45 | XMS_ITS | Encounter Summary ---
:1970 Author Organization [facility] Address [address] [place] [address] Care Team Providers Name Role Phone Roopa Lopez MD Primary Care Provider Reason for Visit Reason Comments Med Refill Encounter Details Date Type Department Care Team Description 09/03/2020 Refill [place] Gandhi, GUSTAVO (generalized anxiety [address] [facility] 20 MD disorder) Robert Guerrero [place] [address] [phone] [place] [address] Social History Tobacco Use Types Packs/Day Years [...] Telephone Encounter - Maris Gunderson MA - 09/05/2020 2:15 PM CDT Last visit in provider department: 06/29/20 Last visit requested medication was discussed: 06/29/20 Upcoming appointment with provider: none Last Rx: 09/24/19, #90, 3 refills Requested Prescriptions Pending Prescriptions Disp Refills ??? sertraline (ZOLOFT) 50 MG tablet [Pharmacy Med Name: SERTRALINE HCL 50MG TABS] 90 tablet 3 Sig: TAKE ONE TABLET BY MOUTH EVERY MORNING FOR ANXIETY AND DEPRESSION documented in this encounter Plan of Treatment Not on filedocumented as of this encounter Visit Diagnoses Diagnosis GUSTAVO (generalized anxiety disorder) Generalized anxiety disorder documented in this encounter Care Teams Power Plant Manager Relationship Specialty Start Date End Date Roopa Lopez MD PCP - General Family Medicine 07/15/19 02/26/[address] [place] [address] documented as of this encounter
--- OUTSIDE RECORDS SUMMARY | 2021-10-22 11:45 | XMS_ITS | Encounter Summary ---
:1970 Author Organization [facility] Address [address] [place] [address] Care Team Providers Name Role Phone Tiffanie Mcgovern APRN, KYLE Primary Care Provider [phone] Reason for Visit Reason Onset Date Comments Med Refill 06/13/2021 Encounter Details Date Type Department Care Team Description 06/13/2021 Refill [place] Roopa Lopez, Mixed hyperlipidemia [address] MD Rogelio Guerrero [place] [address] [address] [address] [place] [phone] [place] [address] (Wo rk) Social History Tobacco Use Types [...] this encounter Miscellaneous Notes Telephone Encounter - America Roland LPN - 06/13/2021 1:58 PM CDT Last visit in provider department: 02/27/2021 Last visit requested medication was discussed:04/27/20 Last Rx: 04/27/20 #90 3 refills Requested Prescriptions Pending Prescriptions Disp Refills ??? simvastatin (ZOCOR) 40 MG tablet 90 tablet 3 Sig: Take 1 tablet (40 mg total) by mouth every night Labs: Component Latest Ref Rng & Units 06/27/2020 Fasting? Yes Cholesterol 0 - 199 mg/dL 166 Triglycerides 0 - 149 mg/dL 126 HDL 40 - 250 mg/dL 58 LDL Calculated 0 - 99 mg/dL 83 Vitals: BP Readings from Last 2 Encounters: 02/27/21 126/84 09/20/20 126/88 Upcoming appointment with provider: Visit date not found Patient is due for CP and Lab appointment. PSR/Nurse: Please contact patient to assist with scheduling. documented in this encounter Plan of Treatment Not on filedocumented as of this encounter Visit Diagnoses Diagnosis Mixed hyperlipidemia documented in this encounter Care Teams Plate Filler Relationship Specialty Start Date End Date Tiffanie Mcgovern, DIRECTOR INDUSTRIAL, LOW PRESSURE FIRER PCP - General Family Medicine 02/27/[address] [place] [address] [place] [address] documented as of this encounter
--- OUTSIDE RECORDS SUMMARY | 2021-10-22 11:45 | XMS_ITS | Encounter Summary ---
:1970 Author Organization [facility] Address [address] [place] [address] Care Team Providers Name Role Phone Roopa Lopez MD Primary Care Provider Reason for Visit Reason Comments Graves' Disease Hypothyroidism Encounter Details Date Type Department Care Team Description 09/27/2020 [facility] Endocrinology [place], Postablative hypothyroidism (Primary Dx); [address] [facility] MD Valerie [place] [address] Social History Tobacco Use Types Packs/Day Years [...] Patient Instructions Patient InstructionsValerie Major MD - 09/27/2020 9:00 AM CDT 1. To increase thyroid dose by taking 1 tablet daily 6 days of the week and 1 and 1/2 tablet one dayof the week Recheck thyroid labs in 2 months documented in this encounter Progress Notes Valerie Major MD - 09/27/2020 9:00 AM CDT Estab Patient Telehealth Primary Care Provider: Roopa Lopez MD Chief Complaint: Follow-up of postablative hypothyroidism and Graves' disease Subjective Patient ID: Laura Novak is a 50 y.o. female. DISEASE SUMMARY: Patient presented for [...] I-131 on 07/21/2019 Last telemedicine visit in 03/2020 Taking Levothyroxine appropriately and compliantly. Not taking any interfering supplements. No Biotin intake. Reports being unable to lose weight. Looking at a supplement called [employer] level has been ok. Has been exercising and walking. No bowel concerns. No tremors or palpitations. No temperature intolerance. Reports continued stress but mood being stable. Has been noticing more migraines. SOCIAL HISTORY: . Lives with her . Has 2 children aged 21 and 17. 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 Review of systems: As in HPI. All other systems negative. LAB RESULTS Recent Results (from the past 336 hour(s)) TSH Collection Time: 09/25/20 8:21 AM Result Value Ref Range TSH, Sensitive 3.02 0.46 - 4.68 mIU/L T4, free Collection Time: 09/25/20 8:21 AM Result Value Ref Range Free T4 1.10 0.78 - 2.19 ng/dL Outpatient Encounter Medications as of 09/27/2020 Medication Sig Dispense Refill ??? levothyroxine (SYNTHROID) 100 MCG tablet Take 1 tablet daily 6 days of the week from Friday-Friday and 1 and 1/2 tablets on Friday 90 tablet 1 ??? LORazepam (ATIVAN) 1 MG tablet May take one tab daily if needed for anxiety 30 tablet 1 ??? ondansetron (Zofran) 4 MG tablet May take one tab every 8 hours if needed for nausea 10 tablet 3 ??? sertraline (ZOLOFT) 50 MG tablet TAKE ONE TABLET BY MOUTH EVERY MORNING FOR ANXIETY AND DEPRESSION 90 tablet 3 ??? simvastatin (ZOCOR) 40 MG tablet Take 1 tablet (40 mg total) by mouth every night 90 tablet 3 ??? traZODone (DESYREL) 50 MG tablet Take 3 tablets (150 mg total) by mouth every night 90 tablet 3 ??? verapamil ER (VERELAN) 240 MG 24 hr capsule TAKE ONE CAPSULE BY MOUTH ONCE DAILY 90 capsule 3 ??? [DISCONTINUED] levothyroxine (SYNTHROID) 100 MCG tablet Take 1 tablet by mouth every day in the morning on an empty stomach with water. Wait 30 minutes to eat/drink after taking, separate vitamins to evening 90 tablet 1 ??? [DISCONTINUED] Bacillus Coagulans-Inulin (PROBIOTIC-PREBIOTIC PO) Take 1-2 each by mouth 1 (one)time each day Chewables ??? [DISCONTINUED] naproxen (NAPROSYN) 375 MG tablet Take 1 tablet (375 mg total) by mouth 2 (two) times a day if needed for mild pain Take with food. No facility-administered encounter medications on file as of 09/27/2020. Allergies as of 09/27/2020 - Reviewed 09/27/2020 Allergen Reaction Noted ??? Fluorouracil Other (see comments) 04/28/2020 ??? Propranolol Other (see comments) 04/28/2020 ??? Triptans Other (see comments) 04/28/2020 ??? Morphine Itching 07/13/2010 ??? Oxycodone-acetaminophen Itching 07/13/2010 Objective Visit Vitals Smoking Status Former Smoker Physical Exam General-appears well, no apparent distress Assessment/Plan Diagnoses and all orders for this visit: Postablative hypothyroidism - TSH; Future - TSH; Future - T4, free; Future - levothyroxine (SYNTHROID) 100 MCG tablet; Take 1 tablet daily 6 days of the week from Friday-Friday and 1 and 1/2 tablets on Friday History of Graves' disease S/p radioiodine treatment with 14 MCI of I-131 on 07/21/2019 1. Her thyroid levels are currently within the normal range. With desire for weight loss maintainingTSH <3 would be reasonable. Recommended to slightly increase the dose by taking 100 MCG 1 tablet 6 days of the week and 1 and a half tablet 1 day of the week. Follow-up TSH will be completed in 2 months. 2. We reviewed details of the supplement that she is planning to take. Enforced to by morethan 4 hours from levothyroxine to prevent interference with absorption. 3. Follow-up visit will be arranged in 6 months with repeat TSH and free T4. If stable at that point, we can consider transitioning care to primary care provider. Patient understands and agrees with the above plan. Belem Moraes - 09/27/2020 9:00 AM CDT scheduled documented in this encounter Plan of Treatment Not on filedocumented as of this encounter Visit Diagnoses Diagnosis Postablative hypothyroidism - Primary Other postablative hypothyroidism History of Graves' disease documented in this encounter Care Teams Hoist Operator Relationship Specialty Start Date End Date Roopa Lopez MD PCP - General Family Medicine 07/15/19 02/26/21 [address] [place] [address] documented as of this encounter
--- OUTSIDE RECORDS SUMMARY | 2021-10-22 11:45 | XMS_ITS | Encounter Summary ---
:1970 Author Organization [facility] Address [address] [place] [address] Care Team Providers Name Role Phone Roopa Lopez MD Primary Care Provider Reason for Visit Reason Comments Migraine Encounter Details Date Type Department Care Team Description 09/20/2020 Office Visit Roopa Caldwell Migraine without status migr ainosus, not intractable, unspecified migraine type (Primary Dx); [address] [place], [place] [address] [address] [facility] [address] [place] [address] Social History Tobacco Use Types Packs/Day Years [...] Sign Reading Time Taken Comments Blood Pressure 126/88 09/20/2020 4:05 PM CDT Pulse 60 09/20/2020 4:05 PM CDT Temperature 36.8 ??C (98.3 ??F) 09/20/2020 4:05 PM CDT Respiratory Rate 16 09/20/2020 4:05 PM CDT Oxygen Saturation 94% 09/20/2020 4:05 PM CDT Inhaled Oxygen Concentration - - Weight 90.3 kg (199 lb) 09/20/2020 4:05 PM CDT Height 173.3 cm (5' 8.23) 09/20/2020 4:05 PM CDT Body Mass Index 30.06 09/20/2020 4:05 PM CDT documented in this encounter Progress Notes Roopa Lopez MD - 09/20/2020 4:00 PM CDT Estab Patient Visit Subjective Patient ID: Laura Novak is a 50 y.o. female. HPI the patient is here today because of a bad migraine headache. The patient is our 50-year-old individual who has had a history of migraine headaches going back 30+years if not more. [facility] and at that time she was taken off actually a lot of her medications that which she was using for migraines and actually her migraines improved. There was a discussion for possible Botox but she preferred not to go that route and in reality in the last year or slightly more she has had only 3 bad migraine headaches that have put her down for a couple days or so. This most recent headache now started about 3 days ago and she has tried a variety of things including Naprosyn Tylenol rest she does have some Imitrex that does not seem to work that well either. It got to the point she wanted to just come in and get a Toradol shot that usually helps settle it down. She feels its her classic her typical migraine just lasted an extra couple days longer than usual for her. She states actually she gets nauseous from this but she actually prefers to throw up if she can because it seems like her headaches get better after she throws up. She is keeping herself hydrated about as well as she could she has not felt like eating as much as she normally would eat. Review of Systems Objective Physical Exam Assessment/Plan Diagnoses and all orders for this visit: Migraine without status migrainosus, not intractable, unspecified migraine type - ketorolac (TORADOL) injection 60 mg - ondansetron (Zofran) 4 MG tablet; May take one tab every 8 hours if needed for nausea Anxiety - LORazepam (ATIVAN) 1 MG tablet; May take one tab daily if needed for anxiety The overall assessment is migraine headache lasting for approximately 3+ days. The plan at this time once we did give her a Toradol shot we then discussed Other means and methods to try to help deal with her headache and we did give her some Zofran to take for nausea if she wouldlike to we refilled her prescription for Ativan which she has not had for over a year meaning she had 30 pills a year ago and 1 refill and she still has not gone through everything. We advised her to go home try to rest she can take a Zofran for nausea she can take one of her Ativan to see if she can relax and then we recommended she consider trying sitting in a warm tub of water and having the showerhead with warm water basically positioned so it strikes her forehead and facial area as sometimes the relaxation effect of gentle showerhead spray along with relaxation of her muscles might allow her to feel better quicker. She will contact us or call us if she has questions problems or concerns her was here to drive her home. Consult time was 20 minutes all 20 minutes was spent in review of her history of migraines discussion of treatment for migraines and medication review and renewal. documented in this encounter Plan of Treatment Not on filedocumented as of this encounter Visit Diagnoses Diagnosis Migraine without status migrainosus, not intractable, unspecified migraine type - Primary Anxiety Anxiety state, unspecified documented in this encounter Administered Medications Inactive Administered Medications - up to 3 most recent administrations Medication Order MAR Action Action Date Dose Rate Site ketorolac (TORADOL) injection 60 Given 09/20/2020 4:04 PM CDT 60 mg Other mg 60 mg, Intramuscular, Once, On Fri09/20/20 at 1700, For 1 dose documented in this encounter Care Teams Informatics Application Analyst Relationship Specialty Start Date End Date Roopa Lopez MD PCP - General Family Medicine 07/15/19 02/26/[address] [place] [address] documented as of this encounter
--- OUTSIDE RECORDS SUMMARY | 2021-10-22 11:45 | XMS_ITS | Encounter Summary ---
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 Called and informed pharmacy and patient. STYRENE BEAD MOLDER Telephone Encounter - Chelsea Romero RN - 04/28/2020 11:23 AM CST Pharmacy informed. STYRENE BEAD MOLDER Telephone Encounter - Catalina Pennington APRN, CNP - 04/28/2020 10:44 AM CST Max 200mg/24hr. STYRENE BEAD MOLDER Telephone Encounter - Chelsea Romero RN - 04/28/2020 10:01 AM CST Pharmacy has a question on patients Imitrex rx. They wanted to know if there is a max daily dose forthis medication? STYRENE BEAD MOLDER Telephone Encounter - Tammi Bar - 04/28/2020 9:32 AM CST Pharmacy has questions on RX given yesterday. Please call [phone]. STYRENE BEAD MOLDER documented in this encounter Plan of Treatment Not on filedocumented as of this encounter Visit Diagnoses Not on filedocumented in this encounter Care Teams Adolescent Psychiatrist Relationship Specialty Start Date End Date Roopa Lopez MD PCP - General Family Medicine 07/15/19 02/26/[address] [place] [address] documented as of this encounter
--- OUTSIDE RECORDS SUMMARY | 2021-10-22 11:45 | XMS_ITS | Encounter Summary ---
:1970 Author Organization [facility] Address [address] [place] [address] Care Team Providers Name Role Phone Roopa Lopez MD Primary Care Provider Reason for Visit Reason Comments Med Refill Encounter Details Date Type Department Care Team Description 05/22/2020 [place], Insomnia, unspecified [address] [place] type [place]STO [place] [address] [phone] [place] [address] Social History Tobacco Use Types Packs/Day Years [...] this encounter Miscellaneous Notes Telephone Encounter - Ana Le MA - 05/24/2020 11:12 AM CDT Last visit in provider department: 04/27/2020 WAE Last visit requested medication was discussed: 04/27/2020 Upcoming appointment with provider: none Last Rx: 12/06/2019 # 90, 3 refill. Med was dc'd 04/27/2020 by Catalina Pennington CNP. Please review and advise pharmacy. Requested Prescriptions Pending Prescriptions Disp Refills ??? traZODone (DESYREL) 50 MG tablet [Pharmacy Med Name: TRAZODONE HCL 50MG TABS] 90 tablet 3 Sig: TAKE 1 TO 2 TABLETS BY MOUTH EVERY NIGHT documented in this encounter Plan of Treatment Not on filedocumented as of this encounter Visit Diagnoses Diagnosis Insomnia, unspecified type documented in this encounter Care Teams Crystal Syrup Maker Relationship Specialty Start Date End Date Roopa Lopez MD PCP - General Family Medicine 07/15/19 02/26/[address] [place] [address] documented as of this encounter
--- OUTSIDE RECORDS SUMMARY | 2021-10-22 11:45 | XMS_ITS | Encounter Summary ---
:1970 Author Organization [facility] Address [address] [place] [address] Care Team Providers Name Role Phone Roopa Lopez MD Primary Care Provider Encounter Details Date Type Department Care Team Description 01/09/2021 Orders Only SE Family [facility] Roopa Lopez MD [address] [facility] [address] [place] [address] [place], [place] [phone] (Wo rk) Social History Tobacco Use Types [...] on filedocumented in this encounter Care Teams Dope House Operator Helper Relationship Specialty Start Date End Date Roopa Lopez MD PCP - General Family Medicine 07/15/19 02/26/[address] [place] [address] documented as of this encounter
--- OUTSIDE RECORDS SUMMARY | 2021-10-22 11:45 | XMS_ITS | Encounter Summary ---
:1970 Author Organization [facility] Address [address] [place] [address] Care Team Providers Name Role Phone Roopa Lopez MD Primary Care Provider Encounter Details Date Type Department Care Team Description 09/20/2020 Telephone [place] MD [address] [facility] [address] [facility] [address] [place], [place] [address] [place], [place] [phone] (Wo rk) Social History Tobacco Use Types [...] Telephone Encounter - Chelsea Romero RN - 09/21/2020 9:56 AM CDT Patient informed. Telephone Encounter - Catalina Pennington APRN, KYLE - 09/21/2020 9:48 AM CDT Sent oral toradol 10mg Q6h prn. Hold other nsaids while using. If gets upset stomach may need to usepepcid or omeprazole (antacids). To family combs. Telephone Encounter - Lili Carranza LPN - 09/20/2020 9:42 AM CDT The Reglan is not working at all for Laura's migraines. She is wondering if there is something that is comparable to the Toradol injections that work in clinic. Is there a medication that can be prescribed that is comparable that she can use PRN at home? The vasospasm's are great lately. Imetrix she has tried and failed. documented in this encounter Plan of Treatment Not on filedocumented as of this encounter Visit Diagnoses Diagnosis Migraine with aura and without status mi grainosus, not intractable - Primary documented in this encounter Care Teams Decorator Mannequin Relationship Specialty Start Date End Date Roopa Lopez MD PCP - General Family Medicine 07/15/19 02/26/[address] [place] [address] documented as of this encounter
--- OUTSIDE RECORDS SUMMARY | 2021-10-22 11:45 | XMS_ITS | Encounter Summary ---
:1970 Author Organization [facility] Address [address] [place] [address] Care Team Providers Name Role Phone Roopa Lopez MD Primary Care Provider Encounter Details Date Type Department Care Team Description 09/25/2020 Lab Robert Guerrero Postablative hypothyroidism [address] [place], [place] [address] Social History Tobacco Use Types [...] Name Priority Date/Time Associated Diagnosis Comme nts TSH Routine 09/25/2020 8:21 AM Postablative Results f or this CDT hypothyroidism procedure are in the results section. T4, FREE Routine 09/25/2020 8:21 AM Postablative Results f or this CDT hypothyroidism procedure are in the results section. documented in this encounter Results T4, free (09/25/2020 8:21 AM CDT) P [...] MD LAB BLOOD ORDERABLES Performing Organization Address City/[facility] Code Phon e Number [facility] [address] [place] [phone] TSH (09/25/2020 8:21 AM CDT) athologist Signature [...] MD LAB BLOOD ORDERABLES Performing Organization Address City/[facility]/ZIP Code Phon e Number [facility] [address] [place] [phone] documented in this encounter Visit Diagnoses Diagnosis Postablative hypothyroidism Other postablative hypothyroidism documented in this encounter Care Teams Physical Trainer Relationship Specialty Start Date End Date Roopa Lopez MD PCP - General Family Medicine 07/15/19 02/26/[address] [place] [address] documented as of this encounter
--- OUTSIDE RECORDS SUMMARY | 2021-10-22 11:45 | XMS_ITS | Encounter Summary ---
:[address] [facility] Address [address] [place] [address] Care Team Providers Name Role Phone Roopa Lopez MD Primary Care Provider Encounter Details Date Type Department Care Team Description 02/21/2021 Lab Robert Guerrero Postablative hypothyroidism [address] [place], [place] [address] Social History Tobacco Use [...] Date/Time Associated Diagnosis Comme nts TSH Routine 02/21/2021 8:30 AM Postablative Results f or this EXHAUSTER ENGINEER hypothyroidism procedure are in the results section. T4, FREE Routine 02/21/2021 8:30 AM Postablative Results f or this EXHAUSTER ENGINEER hypothyroidism procedure are in the results section. documented in this encounter Results T4, free (02/21/2021 8:30 AM EXHAUSTER ENGINEER) P athologist Signature Free T4 1.24 0.78 - 2.19 02/21/2021 [facility] ng/dL 2:16 PM EXHAUSTER ENGINEER [facility] Comment: The results from this [...] (Source) Location / / Volume Laterality Blood 02/21/2021 8:30 AM EXHAUSTER ENGINEER 12:39 PM EXHAUSTER ENGINEER Valerie Major MD LAB BLOOD ORDERABLES Performing Organization Address City/[facility] Code Phon e Number [facility] [address] [place] [address] TSH (02/21/2021 8:30 AM EXHAUSTER ENGINEER) athologist Signature TSH, Sensitive 2.17 0.46 - 02/21/2021 [facility] 4.68 mIU/L 2:17 PM EXHAUSTER ENGINEER [facility] Comment: The results from this [...] (Source) Location / / Volume Laterality Blood 02/21/2021 8:30 AM 1 EXHAUSTER ENGINEER 12:39 PM EXHAUSTER ENGINEER Valerie Major MD LAB BLOOD ORDERABLES Performing Organization Address City/[facility] Phon e Number [facility] [address] [place] [address] documented in this encounter Visit Diagnoses Diagnosis Postablative hypothyroidism Other postablative hypothyroidism documented in this encounter Care Teams Rural Mail Carrier Relationship Specialty Start Date End Date Roopa Lopez MD PCP - General Family Medicine 07/15/19 02/26/21 [address] [facility] [address] [place] [address] documented as of this encounter
--- OUTSIDE RECORDS SUMMARY | 2021-10-22 11:45 | XMS_ITS | Encounter Summary ---
:1970 Author Organization [facility] Address [address] [place] [address] Care Team Providers Name Role Phone Roopa Lopez MD Primary Care Provider Encounter Details Date Type Department Care Team Description 06/29/2020 Lab Robert Guerrero Mixed hyperlipidemia [address] [place], [place] [address] Social History Tobacco Use [...] Name Priority Date/Time Associated Diagnosis Comme nts MICROALBUMIN/CREATI Routine 06/29/2020 8:30 AM Mixed hyperlipi demia Results for this NINE RATIO CDT procedure are i n the results section. documented in this encounter Results Microalbumin/Creatinine Ratio (06/29/2020 8:30 AM CDT) athologist Signature Microalbumin,m 7.1 0.0 - 16.6 06/29/2020 [facility] g/day mg/L 3:01 PM CDT [facility] Comment: . Creatinine, Urine 185 mg/dL 06/29/2020 3:02 PM CDT [facility] Comment: No established reference range. Microalb/Creat Ratio 4 0 - 24 mg/g 06/29/2020 3:0 2 PM CDT [facility] Specimen Anatomical Collection Method Collection Time Receive d Time (Source) Location / / Volume Laterality Urine 06/29/2020 8:30 AM CDT 12:33 PM CDT Catalina Pennington APRN, CNP LAB URINE ORDERABLES Performing Organization Address City/State/ZIP Code Phon e Number [facility] [address] [place] [address] documented in this encounter Visit Diagnoses Diagnosis Mixed hyperlipidemia documented in this encounter Care Teams Kennel Supervisor Relationship Specialty Start Date End Date Roopa Lopez MD PCP - General Family Medicine 07/15/19 02/26/[address] [place] [address] documented as of this encounter
--- OUTSIDE RECORDS SUMMARY | 2021-10-22 11:45 | XMS_ITS | Encounter Summary ---
:1970 Author Organization [facility] Address [address] [place] [address] Care Team Providers Name Role Phone Roopa Lopez MD Primary Care Provider Reason for Visit Reason Onset Date Comments Naproxen Rx 05/01/2020 Encounter Details Date Type Department Care Team Description 05/01/2020 Telephone [place] Catalina Pennington APRN, CNP Naproxen Rx [address] [facility] [place], [place] [address] [place] [address] [phone] (Wo rk) Social History Tobacco Use Types [...] Telephone Encounter - Chelsea Romero RN - 05/01/2020 10:34 AM CST Patient informed. HICS EDIT TECHNICIAN Telephone Encounter - Catalina Pennington APRN, CNP - 05/01/2020 10:26 AM CST Sent a different naproxen. Also she don't have to use Asprin 81mg daily as discussed I sent a my chart message but looks like she have not read it. HICS EDIT TECHNICIAN Telephone Encounter - Chelsea Romero RN - 05/01/2020 10:21 AM CST Pharmacy called stating the Naproxen EC is expensive and the patient did not pick this up. They are wondering they can substitute for the regular Naproxen or if it has to be delayed release? HICS EDIT TECHNICIAN Telephone Encounter - Chelsea Romero RN - 05/01/2020 9:36 AM CST No answer at pharmacy. HICS EDIT TECHNICIAN Telephone Encounter - Alyce Shah - 05/01/2020 8:35 AM CST Martin with [facility] called requesting to talk with a nurse about Pt's Naproxen delayed release Rx. Please call Martin at [phone] to advise. HICS EDIT TECHNICIAN documented in this encounter Plan of Treatment Not on filedocumented as of this encounter Visit Diagnoses Diagnosis Migraine with aura and without status mi grainosus, not intractable - Primary documented in this encounter Care Teams Veneer Measurer Relationship Specialty Start Date End Date Roopa Lopez MD PCP - General Family Medicine 07/15/19 02/26/[address] [place] [address] documented as of this encounter
--- OUTSIDE RECORDS SUMMARY | 2021-10-22 11:46 | XMS_ITS | Encounter Summary ---
:1970 Author Organization [facility] Address [address] [place] [address] Care Team Providers Name Role Phone Roopa Lopez MD Primary Care Provider Encounter Details Date Type Department Care Team Description 10/18/2019 Telephone [facility] Valerie Major MD [address] [place] [address] Social History Tobacco Use Types Packs/Day Years [...] this encounter Miscellaneous Notes Telephone Encounter - Cristiano Stratton - 10/18/2019 1:00 PM CDT Spoke with patient and she will call back once she has her schedule. Needs 2 month follow up with labs for Dr. Major documented in this encounter Plan of Treatment Not on filedocumented as of this encounter Visit Diagnoses Not on filedocumented in this encounter Care Teams Quality Intern Relationship Specialty Start Date End Date Roopa Lopez MD PCP - General Family Medicine 07/15/19 02/26/[address] [place] [address] documented as of this encounter
--- OUTSIDE RECORDS SUMMARY | 2021-10-22 11:46 | XMS_ITS | Encounter Summary ---
:1970 Author Organization [facility] Address [address] [place] [address] Care Team Providers Name Role Phone Roopa Lopez MD Primary Care Provider Reason for Visit Reason Comments Graves' Disease Encounter Details Date Type Department Care Team Description 12/28/2019 [facility] Endocrinology [place], Postablative hypothyroidism (Primary Dx); [address] [facility] MD Valerie Graves disease; [place] [address] Generalized edema [phone] Social History Tobacco Use Types Packs/Day Years [...] Patient Instructions Patient InstructionsValerie Major MD - 12/28/2019 2:00 PM CDT 1. OK to restart Lasix and continue 2. Continue the same dose of Levothyroxine 3. OK to take probiotic or vitamin. Separate more than 4 hours from thyroid documented in this encounter Progress Notes Valerie Major MD - 12/28/2019 2:00 PM CDT Estab Patient Telehealth Primary Care Provider: Roopa Lopez MD Chief Complaint: Follow-up of Graves' disease Subjective Patient ID: Laura Novak [...] I-131 on 07/21/2019 Last telemedicine visit in 10/2019. Taking Levothyroxine appropriately and compliantly. Not taking any interfering supplements. Also stopped probiotic due to concerns of interference with thyroid medication. No Biotin intake. She stopped furosemide due to perception of lack of refills. This was refilled by Dr. Lopez in 11/2019. Reports noticing generalized edema/fluid retention. Continues to have low energy. Has sleep awakening at night. Has variable bowel movements. Has some palpitations. No tremors. Has heat intolerance. Denies any weight gain. Mood stable. SOCIAL HISTORY: . Lives with her . Has 2 children aged 21 and 17. 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 Review of systems: As in HPI. All other systems negative. LAB RESULTS Recent Results (from the past 336 hour(s)) T4, free Collection Time: 12/22/19 1:11 PM Result Value Ref Range Free T4 1.24 0.78 - 2.19 ng/dL TSH Collection Time: 12/22/19 1:11 PM Result Value Ref Range TSH, Sensitive 0.46 0.46 - 4.68 mIU/L Outpatient Encounter Medications as of 12/28/2019 Medication Sig Dispense Refill ??? levothyroxine (SYNTHROID) [...] eat/drink anything else; separate vitamins to evening 60 tablet 1 ??? Bacillus Coagulans-Inulin (PROBIOTIC-PREBIOTIC PO) Take 1-2 each by mouth 1 (one) time each day Chewables ??? furosemide (LASIX) 20 MG tablet TAKE ONE TABLET BY MOUTH EVERY DAY (Patient not taking: Reportedon 12/28/2019) 90 tablet 1 ??? traZODone (DESYREL) 50 MG tablet Take 1 tablet (50 mg total) by mouth every night 1 to 2 nightly(Patient taking differently: 1 to 2 tablets every night) 90 tablet 3 No facility-administered encounter medications on file as of 12/28/2019. Allergies as of 12/28/2019 - Reviewed 12/28/2019 Allergen Reaction Noted ??? Morphine Itching 07/13/2010 ??? Oxycodone-acetaminophen Itching 07/13/2010 Objective Visit Vitals Smoking Status Former Smoker Physical Exam General-appears well, no apparent distress Assessment/Plan Diagnoses and all orders for this visit: Postablative hypothyroidism - T4, free; Future - TSH; Future - levothyroxine (SYNTHROID) 112 MCG tablet; Take 1 tablet daily on empty stomach with water in morning; wait 1/2 hr to eat/drink anything else; separate vitamins to evening Graves disease Generalized edema S/p radioiodine treatment with 14 MCI of I-131 on 07/21/2019 1. Her thyroid levels are currently optimal and she will continue on the same dose of Levothyroxine. 2. Patient understands that she can consider probiotic or multivitamin as long as it is more than 4 hours from thyroid medication. 3. Patient was reassured that it is okay to return back to diuretic if it symptomatically benefits. Potassium was normal while she was on diuretic previously. 4. Follow-up visit in 3 months with repeat TSH and free T4 arranged. Patient understands and agrees with the above plan. documented in this encounter Plan of Treatment Not on filedocumented as of this encounter Results TSH (03/27/2020 9:58 AM STAFFING PROGRAM MANAGER) athologist Signature TSH, Sensitive 0.87 0.46 - 03/28/2020 [facility] L 4.68 mIU/L 3:06 PM STAFFING PROGRAM MANAGER [facility] Comment: The results from this [...] (Source) Location / / Volume Laterality Blood 03/27/2020 9:58 AM 1:18 STAFFING PROGRAM MANAGER PM STAFFING PROGRAM MANAGER Valerie Major MD LAB BLOOD ORDERABLES Performing Organization Address City/State/ZIP Code Phon e Number [facility] [address] [place] [address] T4, free (03/27/2020 9:58 AM STAFFING PROGRAM MANAGER) athologist Signature Free T4 1.17 0.78 - 2.19 03/28/2020 [facility] ng/dL 2:36 PM STAFFING PROGRAM MANAGER [facility] Comment: The results from this [...] (Source) Location / / Volume Laterality Blood 03/27/2020 9:58 AM 1 1:18 STAFFING PROGRAM MANAGER PM STAFFING PROGRAM MANAGER Valerie Major MD LAB BLOOD ORDERABLES Performing Organization Address City/State/ZIP Code Phon e Number [facility] [address] [place] [address] documented in this encounter Visit Diagnoses Diagnosis Postablative hypothyroidism - Primary Other postablative hypothyroidism Graves disease Toxic diffuse goiter without mention of thyrotoxic crisis or storm Generalized edema Edema documented in this encounter Care Teams Hot Worker Relationship Specialty Start Date End Date Roopa Lopez MD PCP - General Family Medicine 07/15/19 02/26/[address] [place] [address] documented as of this encounter
--- OUTSIDE RECORDS SUMMARY | 2021-10-22 11:46 | XMS_ITS | Encounter Summary ---
:1970 Author Organization [facility] Address [address] [place] [address] Care Team Providers Name Role Phone Roopa Lopez MD Primary Care Provider Encounter Details Date Type Department Care Team Description 11/04/2019 Telephone ConcepcionRoopa Gandhi MD [address] [facility] 20 [address] [facility] [address] [place], [place] [address] [place], [place] [phone] (Wo rk) Social History Tobacco Use Types [...] Telephone Encounter - Chelsea Romero RN - 11/04/2019 2:34 PM CDT Results received and given to the provider. Provider contacted patient to discuss. Telephone Encounter - Alyce Shah - 11/04/2019 10:[address] referral face sheet and lab results faxed to [facility] radiology as requested (STAT). documented in this encounter Plan of Treatment Not on filedocumented as of this encounter Visit Diagnoses Not on filedocumented in this encounter Care Teams Or Nurse Manager Relationship Specialty Start Date End Date Roopa Lopez MD PCP - General Family Medicine 07/15/19 02/26/21 [address] [place] [address] documented as of this encounter
--- OUTSIDE RECORDS SUMMARY | 2021-10-22 11:46 | XMS_ITS | Encounter Summary ---
:1970 Author Organization [facility] Address [address] [place] [address] Care Team Providers Name Role Phone Roopa Lopez MD Primary Care Provider Encounter Details Date Type Department Care Team Description 02/14/2020 Lab Robert Guerrero Postablative hypothyroidism [address] [place], [place] [address] Social History Tobacco Use [...] Date/Time Associated Diagnosis Comme nts TSH Routine 02/14/2020 4:01 PM Postablative Results f or this TUGBOAT CAPTAIN hypothyroidism procedure are in the results section. T4, FREE Routine 02/14/2020 4:01 PM Postablative Results f or this TUGBOAT CAPTAIN hypothyroidism procedure are in the results section. documented in this encounter Results T4, free (02/14/2020 4:01 PM TUGBOAT CAPTAIN) P athologist Signature Free T4 1.07 0.78 - 2.19 02/15/2020 [facility] ng/dL 3:25 PM TUGBOAT CAPTAIN [facility] Comment: The results from this [...] (Source) Location / / Volume Laterality Blood 02/14/2020 4:01 PM 0 2:29 TUGBOAT CAPTAIN PM TUGBOAT CAPTAIN Valerie Major MD LAB BLOOD ORDERABLES Performing Organization Address City/[facility] Code Phon e Number [facility] [address] [place] [phone] TSH (02/14/2020 4:01 PM TUGBOAT CAPTAIN) athologist Signature TSH, Sensitive 0.93 0.46 - 02/15/2020 [facility] 4.68 mIU/L 3:36 PM TUGBOAT CAPTAIN [facility] Comment: The results from this [...] (Source) Location / / Volume Laterality Blood 02/14/2020 4:01 PM 0 2:29 TUGBOAT CAPTAIN PM TUGBOAT CAPTAIN Valerie Major MD LAB BLOOD ORDERABLES Performing Organization Address [facility] Phon e Number [facility] [address] [place] [address] documented in this encounter Visit Diagnoses Diagnosis Postablative hypothyroidism Other postablative hypothyroidism documented in this encounter Care Teams Head Refrigerating Engineer Relationship Specialty Start Date End Date Roopa Lopez MD PCP - General Family Medicine 07/15/19 02/26/[address] [place] [address] documented as of this encounter
--- OUTSIDE RECORDS SUMMARY | 2021-10-22 11:46 | XMS_ITS | Encounter Summary ---
:[address] [facility] Address [address] [place] [address] Care Team Providers Name Role Phone Roopa Lopez MD Primary Care Provider Reason for Visit Reason Onset Date Comments Med Refill 12/06/2019 Encounter Details Date Type Department Care Team Description 12/06/2019 Refill Roopa Caldwell Hyperlipidemia, unspecified hyperlipidemia type; [address] [place]heel Insomnia, unspecified [place] [address] [phone] [place] [address] Social History Tobacco Use Types Packs/Day Years [...] this encounter Miscellaneous Notes Telephone Encounter - Kika Au MA - 12/06/2019 10:18 AM CDT Last visit in provider department: 11/04/2019 Dr. Palacios PHQ-9 0 09/08/2019 [id number] 3 Last visit requested medication was discussed: 12/14/2018 Tiffanie Mcgovern Upcoming appointment with provider: Visit date not found Last Rx: Simvastatin 20mg #90 +2 refills 03/08/2019 Trazodone 50mg #90 +2 refills 04/02/2019 Requested Prescriptions Pending Prescriptions Disp Refills ??? simvastatin (ZOCOR) 20 MG tablet 90 tablet 2 Sig: Take 1 tablet (20 mg total) by mouth every night Labs: Lipids Component Latest Ref Rng & Units 12/14/2018 Cholesterol 0 - 199 mg/dL 171 Triglycerides 0 - 149 mg/dL 150 (A) HDL 40 - 60 mg/dL 59 LDL Calculated 0 - 99 mg/dL 82 Fasting? Yes Vitals: BP Readings from Last 2 Encounters: 11/04/19 144/90 10/18/19 120/62 Patient is due for appointment. PSR/Nurse: Please contact patient to assist with scheduling. documented in this encounter Plan of Treatment Not on filedocumented as of this encounter Visit Diagnoses Diagnosis Hyperlipidemia, unspecified hyperlipidem ia type Insomnia, unspecified type documented in this encounter Care Teams Technical Advisor Relationship Specialty Start Date End Date Roopa Lopez MD PCP - General Family Medicine 07/15/19 02/26/[address] [place] [address] documented as of this encounter
--- OUTSIDE RECORDS SUMMARY | 2021-10-22 11:46 | XMS_ITS | Encounter Summary ---
:1970 Author Organization [facility] Address [address] [place] [address] Care Team Providers Name Role Phone Roopa Lopez MD Primary Care Provider Encounter Details Date Type Department Care Team Description 10/22/2019 Telephone SE Endocrinology Valerie Major MD [address] [place] [address] Social History Tobacco Use Types [...] this encounter Miscellaneous Notes Telephone Encounter - Jo Ann Anaya MA - 11/12/2019 11:17 AM CDT Patient informed of above message and verbalized an understanding. [facility] Telephone Encounter - Valerie Major MD - 11/12/2019 10:30 AM CDT That lab timing was not an issue. Please inform the patient that the labs showed that her TSH was mildly low indicating that the dose is slightly too much. Recommend to cut down the dose to 112 MCG. Prescription has been forwarded. Please help postpone her visit to 6 weeks from now to see how the current dose change is working. She will need repeat thyroid labs done a couple days ahead of the visit. Order placed. Telephone Encounter - Samreen Van - 11/11/2019 9:34 AM CDT Pt is scheduled for mychart video visit on 12/16. Pt stated she did labs but isn't sure if it was toosoon. Please advise. Telephone Encounter - Cristiano Stratton - 11/03/2019 3:58 PM CDT Left message to call back Telephone Encounter - Cristiano Stratton - 10/22/2019 8:23 AM CDT Left message to call back Telephone Encounter - Cristiano Stratton - 10/22/2019 8:23 AM CDT ----- Message from Belem Moraes sent at 10/18/2019 12:06 PM CDT ----- Return in about 2 months (around 12/18/2019). With Dr Major. Patient left without setting up follow up appt documented in this encounter Plan of Treatment Not on filedocumented as of this encounter Results T4, free (12/22/2019 1:11 PM CDT) P athologist Signature Free T4 1.24 0.78 - 2.19 12/23/2019 [facility] ng/dL 1:52 PM CDT [facility] Comment: The results [...] (Source) Location / / Volume Laterality Blood 12/22/2019 1:11 PM 0 CDT 12:27 PM CDT Valerie Major MD LAB BLOOD ORDERABLES Performing Organization Address City/[facility] Code Phon e Number [facility] [address] [place] [phone] TSH (12/22/2019 1:11 PM CDT) athologist Signature TSH, Sensitive 0.46 0.46 - 12/23/2019 [facility] 4.68 mIU/L 1:52 PM CDT [facility] Comment: The results [...] (Source) Location / / Volume Laterality Blood 12/22/2019 1:11 PM 0 CDT 12:27 PM CDT Valerie Major MD LAB BLOOD ORDERABLES Performing Organization Address City/[facility]/ZIP Code Phon e Number [facility] [address] [place] [address] documented in this encounter Visit Diagnoses Diagnosis Postablative hypothyroidism Other postablative hypothyroidism documented in this encounter Care Teams Senior Engineering Tech Relationship Specialty Start Date End Date Roopa Lopez MD PCP - General Family Medicine 07/15/19 02/26/[address] [place] [address] documented as of this encounter
--- OUTSIDE RECORDS SUMMARY | 2021-10-22 11:46 | XMS_ITS | Encounter Summary ---
:1970 Author Organization [facility] Address [address] [place] [address] Care Team Providers Name Role Phone Tiffanie Mcgovern APRN, KYLE Primary Care Provider [phone] Reason for Visit Reason Comments Med Refill Encounter Details Date Type Department Care Team Description 12/28/2019 Refill SE Endocrinology Muthusamy, Edema, unspecified type [address] [facility] [place] [address] Social History Tobacco Use Types [...] this encounter Miscellaneous Notes Telephone Encounter - Tatianna Banda LPN - 12/28/2019 3:56 PM CDT Requested Prescriptions Pending Prescriptions Disp Refills ??? furosemide (LASIX) 20 MG tablet [Pharmacy Med Name: FUROSEMIDE 20MG TABS] 30 tablet 1 Sig: TAKE ONE TABLET BY MOUTH EVERY DAY #90, 1 refill e-prescribed to [facility] (requesting pharmacy) E-Prescribing Status: Receipt confirmed by pharmacy (11/14/2019 ??8:55 AM CDT) Refills available at requesting pharmacy. Pharmacy notified. documented in this encounter Plan of Treatment Not on filedocumented as of this encounter Visit Diagnoses Diagnosis Edema, unspecified type documented in this encounter Additional Health Concerns Infection Onset Date Last Indicated Resolved Time COVID-19 Rule Out 02/18/2020 02/18/2020 02/18/2020 4:4 1 PM HTML DEVELOPER COVID-19 Rule Out 02/27/2021 02/27/2021 02/27/2021 10: 40 AM HTML DEVELOPER COVID-19 Confirmed 02/27/2021 02/27/2021 05/28/2021 8: 17 PM CDT documented as of this encounter Care Teams School Fundraising Director Relationship Specialty Start Date End Date Tiffanie Mcgovern APRN, SENIOR FINANCIAL REPORTING ANALYST PCP - General Family Medicine 02/27/[address] [place] [address] documented as of this encounter
--- OUTSIDE RECORDS SUMMARY | 2021-10-22 11:46 | XMS_ITS | Encounter Summary ---
:1970 Author Organization [facility] Address [address] [place] [address] Care Team Providers Name Role Phone Roopa Lopez MD Primary Care Provider Encounter Details Date Type Department Care Team Description 09/26/2019 Orders Only SE Endocrinology Muthusamy, Postablative [address] MD Valerie hypothyroidism ([place] [address] Dx) [phone] Social History Tobacco Use Types Packs/Day Years [...] as of this encounter Results T4, free (10/14/2019 8:03 AM CDT) P athologist Signature Free T4 1.19 0.78 - 2.19 10/14/2019 [facility] ng/dL 3:54 PM CDT [facility] Comment: The results [...] (Source) Location / / Volume Laterality Blood 10/14/2019 8:03 AM 0 1:46 CDT PM CDT Valerie Major MD LAB BLOOD ORDERABLES Performing Organization Address City/[facility]/ZIP Code Phon e Number [facility] [address] [place] [address] TSH (10/14/2019 8:03 AM CDT) athologist Signature TSH, Sensitive 2.70 0.46 - 10/14/2019 [facility] 4.68 mIU/L 3:54 PM CDT [facility] Comment: The results [...] (Source) Location / / Volume Laterality Blood 10/14/2019 8:03 AM 0 1:46 CDT PM CDT Valerie Major MD LAB BLOOD ORDERABLES Performing Organization Address City/[facility]/ZIP Code Phon e Number [facility] [address] [place] [phone] documented in this encounter Visit Diagnoses Diagnosis Postablative hypothyroidism - Primary Other postablative hypothyroidism documented in this encounter Care Teams Wood Tool Maker Relationship Specialty Start Date End Date Roopa Lopez MD PCP - General Family Medicine 07/15/19 02/26/21 [address] [facility] [address] [place] [address] documented as of this encounter
--- OUTSIDE RECORDS SUMMARY | 2021-10-22 11:46 | XMS_ITS | Encounter Summary ---
:1970 Author Organization [facility] Address [address] [place] [address] Care Team Providers Name Role Phone Roopa Lopez MD Primary Care Provider Encounter Details Date Type Department Care Team Description 09/13/2019 Orders Only Roopa Caldwell Anxiety (Primary Dx) [address] [facility] 20 [place], [place] [address] [phone] [place] [address] Social History Tobacco Use Types Packs/Day Years [...] of this encounter Visit Diagnoses Diagnosis Anxiety - Primary Anxiety state, unspecified documented in this encounter Care Teams Chute Worker Relationship Specialty Start Date End Date Roopa Lopez MD PCP - General Family Medicine 07/15/19 02/26/[address] [place] [address] documented as of this encounter
--- OUTSIDE RECORDS SUMMARY | 2021-10-22 11:46 | XMS_ITS | Encounter Summary ---
:1970 Author Organization [facility] Address [address] [place] [address] Care Team Providers Name Role Phone Roopa Lopez MD Primary Care Provider Reason for Visit Reason Comments Graves' Disease Encounter Details Date Type Department Care Team Description 10/18/2019 Office Visit Endocrinology Muthusamy, Postablative hypothyroidism (Primary Dx); [facility] Valerie Graves disease; [place] [address] Edema, unspecified type [phone] Social History Tobacco Use Types Packs/Day Years [...] Sign Reading Time Taken Comments Blood Pressure 120/62 10/18/2019 10:01 AM CDT Pulse 72 10/18/2019 10:01 AM CDT Temperature 36.9 ??C (98.4 ??F) 10/18/2019 10:01 AM CDT Respiratory Rate 16 10/18/2019 10:01 AM CDT Oxygen Saturation 98% 10/18/2019 10:01 AM CDT Inhaled Oxygen Concentration - - Weight 86.7 kg (191 lb 0.5 oz) 10/18/2019 10:01 AM CDT Height 174.8 cm (5' 8.82) 10/18/2019 10:01 AM CDT Body Mass Index 28.36 10/18/2019 10:01 AM CDT documented in this encounter Patient Instructions Patient InstructionsValerie Major MD - 10/18/2019 10:15 AM CDT 1. Continue the same dose of Levothyroxine documented in this encounter Progress Notes Valerie Major MD - 10/18/2019 10:15 AM CDT Estab Patient Visit Primary Care Provider: Roopa Lopez MD Chief [...] started on levothyroxine replacement in 09/2019. HPI Last telemedicine visit on 08/12/19. Consult on 07/02/19. Weight stable. Previously had communicated regarding concerns of joint pain, trouble walking. Was noted to have concerns of leg swelling previously and provided a prescription for Lasix. She had not started it and reported that leg swelling had improved. She reports that this was recommended to be started by Dr. Satnam powers after an encounter in 09/2019. She reports that these symptoms have improved currently. Still has some fatigue. Mobility improved. Weight overall Taking Levothyroxine appropriately and compliantly. Takes MVI later in the day, but often forgets. SOCIAL HISTORY: . Lives with her . Has 2 children aged 21 and 17. 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 Review of systems: As in HPI. All other systems negative. LAB RESULTS Recent Results (from the past 336 hour(s)) T4, free Collection Time: 10/14/19 8:03 AM Result Value Ref Range Free T4 1.19 0.78 - 2.19 ng/dL TSH Collection Time: 10/14/19 8:03 AM Result Value Ref Range TSH, Sensitive 2.70 0.46 - 4.68 mIU/L Outpatient Encounter Medications as of 10/18/2019 Medication Sig Dispense Refill ??? furosemide (Lasix) 20 MG tablet Take 1 tablet (20 mg total) by mouth 1 (one) time each day 30 tablet 1 ??? levothyroxine (SYNTHROID) 125 MCG tablet Take 1 tablet daily on empty stomach with water in morning; wait 1/2 hr to eat/drink anything else; separate vitamins to evening 60 tablet 1 ??? LORazepam (ATIVAN) 1 MG tablet May take one tab daily if needed for anxiety 30 tablet 1 ??? Multiple Vitamins-Minerals (MULTIVITAMIN WOMEN PO) Take 1 tablet by mouth 1 (one) time each day ??? sertraline (ZOLOFT) 50 MG tablet TAKE ONE TABLET BY MOUTH EVERY MORNING FOR ANXIETY AND DEPRESSION (Patient taking differently: TAKE 1 1/2 TABLET BY MOUTH EVERY MORNING FOR ANXIETY AND DEPRESSION) 90 tablet 3 ??? simvastatin (ZOCOR) 20 MG tablet TAKE ONE TABLET BY MOUTH AT BEDTIME 90 tablet 2 ??? traMADol (ULTRAM) 50 MG tablet May take 1-2 every 6 hours if needed for acute dental pain limit 6/24 hours or 42/week. 42 tablet 1 ??? traZODone (DESYREL) 50 MG tablet Take 1 tablet (50 mg total) by mouth every night 1 to 2 [id number] tablet 3 ??? verapamil ER (VERELAN) 240 MG 24 hr capsule Take one a day for heart 90 capsule 3 ??? Bacillus Coagulans-Inulin (PROBIOTIC-PREBIOTIC PO) Take 1-2 each by mouth 1 (one) time each day Chewables ??? Naproxen Sodium (Aleve) 220 MG capsule Take 440 mg by mouth 1 (one) time each day Joint pain No facility-administered encounter medications on file as of 10/18/2019. Allergies as of 10/18/2019 - Reviewed 10/18/2019 Allergen Reaction Noted ??? Morphine Itching 07/13/2010 ??? Oxycodone-acetaminophen Itching 07/13/2010 Objective Visit Vitals BP 120/62 (BP Location: Left arm, Patient Position: Sitting) Pulse 72 Temp 36.9 ??C (98.4 ??F) (Temporal) Resp 16 Ht 1.748 m (5' 8.82) Wt 86.7 kg (191 lb 0.5 oz) SpO2 98% BMI 28.36 kg/m?? Smoking Status Former Smoker BSA 2.05 m?? Physical Exam General-appears well, no apparent distress Neck: thyroid mildly diffusely enlarged. No cervical/supraclavicular lymphadenopathy CVS: RRR, no murmur LE: No edema Assessment/Plan Diagnoses and all orders for this visit: Postablative hypothyroidism - T4, free; Future - TSH; Future - TSH; Future - T4, free; Future Graves disease Edema, unspecified type - Basic metabolic panel; Future S/p radioiodine treatment with 14 MCI of I-131 on 07/21/2019 1. Her thyroid levels are currently optimal and she will continue on the same dose of Levothyroxine.Guidelines for appropriate intake was reinforced. Needs close monitoring to evaluate any further changes, allowing further time for levothyroxine to reach steady state and due to continued possible dose changes from effect of radioiodine treatment. Follow-up thyroid labs arranged in 1 month and again follow-up visit in 2 months with repeat TSH and free T4. 2. With the use of diuretic, basic metabolic panel will be updated currently. 3. She will return for follow-up visit in 2 months. Patient understands and agrees with the above plan. I have spent 20 minutes in patient care and greater then 50% of the time spent in counseling on evaluation, management and plan of her endocrine issues. documented in this encounter Plan of Treatment Not on filedocumented as of this encounter Results (ABNORMAL) TSH (11/04/2019 9:40 AM CDT) Analysis Performed At Patho logist Time Signature TSH, Sensitive 0.15 (L) 0.46 - 11/04/2019 NICOLE 4.68 mIU/L 2:45 PM [facility] Comment: The results from [...] (Source) Location / / Volume Laterality Blood 11/04/2019 9:40 AM 0 1:26 CDT PM CDT Valerie Major MD LAB BLOOD ORDERABLES Performing Organization Address City/State/ZIP Code Phon e Number [facility] [address] [place] [phone] T4, free (11/04/2019 9:40 AM CDT) P athologist Signature Free T4 1.50 0.78 - 2.19 11/04/2019 [facility] ng/dL 2:32 PM [facility] Comment: The results from this [...] (Source) Location / / Volume Laterality Blood 11/04/2019 9:40 AM 0 1:26 CDT PM CDT Valerie Major MD LAB BLOOD ORDERABLES Performing Organization Address City/[facility] Phon e Number [facility] [address] [place] [phone] (ABNORMAL) Basic metabolic panel (10/18/2019 11:08 AM CDT) [facility] Time Signature Sodium 138 135 - 145 10/18/2019 NICOLE mEq/L 3:22 PM [facility] Potassium 3.6 3.5 - 5.1 10/18/2019 [place] mEq/L 3:22 PM [facility] Chloride 103 98 - 107 10/18/2019 [place] mEq/L 3:22 PM [facility] CO2 26 22 - 29 10/18/2019 [place] mmol/L 3:22 PM [facility] Creatinine 0.7 0.4 - 1.2 10/18/2019 [place] mg/dL 3:22 PM [facility] BUN 14 5 - 25 10/18/2019 [place] mg/dL 3:22 PM [facility] Glucose 105 (H) 70 - 100 10/18/2019 N[place]LE mg/dL 3:22 PM [facility] Calcium, 9.2 8.4 - 10.2 10/18/2019 N[place]LE Total,S mg/dL 3:22 PM [facility] Fasting? No 10/18/2019 NICOLE 11:08 AM [facility] Specimen Anatomical Collection Method Collection Time Receive d Time (Source) Location / / Volume Laterality Blood 10/18/2019 11:08 10/18/2019 2:17 AM T PM T Valerie Major MD LAB BLOOD ORDERABLES Performing Organization Address [facility] Phon e Number [facility] [address] [place] [address] documented in this encounter Visit Diagnoses Diagnosis Postablative hypothyroidism - Primary Other postablative hypothyroidism Graves disease Toxic diffuse goiter without mention of thyrotoxic crisis or storm Edema, unspecified type documented in this encounter Care Teams Procurement Professional Logistics Relationship Specialty Start Date End Date Roopa Lopez MD PCP - General Family Medicine 07/15/19 02/26/[address] [place] [address] documented as of this encounter
--- OUTSIDE RECORDS SUMMARY | 2021-10-22 11:46 | XMS_ITS | Encounter Summary ---
:1970 Author Organization [facility] Address [address] [place] [address] Care Team Providers Name Role Phone Tiffanie Mcgovern APRN, KYLE Primary Care Provider [phone] Encounter Details Date Type Department Care Team Description 12/06/2019 Telephone [place] Roopa Lopez MD [address] [facility] [address] [facility] [address] [place], [place] [address] [place], [place] [phone] (Wo rk) Social History Tobacco Use Types [...] Diagnoses Not on filedocumented in this encounter Additional Health Concerns Infection Onset Date Last Indicated Resolved Time COVID-19 Rule Out 02/18/2020 02/18/2020 02/18/2020 4:4 1 PM PARK MAINTENANCE TECHNICIAN COVID-19 Rule Out 02/27/2021 02/27/2021 02/27/2021 10: 40 AM PARK MAINTENANCE TECHNICIAN COVID-19 Confirmed 02/27/2021 02/27/2021 05/28/2021 8: 17 PM CDT documented as of this encounter Care Teams Refinery Operator Helper Cracking Unit Relationship Specialty Start Date End Date Tiffanie Mcgovern APRN, FRESH FOOD MANAGER PCP - General Family Medicine 02/27/[address] [place] [address] ERNESTO MACEDO [id number] documented as of this encounter
--- OUTSIDE RECORDS SUMMARY | 2021-10-22 11:46 | XMS_ITS | Encounter Summary ---
:1970 Author Organization [facility] Address [address] [place] [address] Care Team Providers Name Role Phone Roopa Lopez MD Primary Care Provider Encounter Details Date Type Department Care Team Description 11/04/2019 Telephone Penny Rasmussen MD [address] [place], [place] [address] Social History Tobacco Use [...] this encounter Miscellaneous Notes Telephone Encounter - Penny Palacios MD - 11/04/2019 12:38 PM CDT I spoke to patient on the phone regarding the results of her CT abdomen pelvis which was obtained this morning. I explained to her that it was overall reassuring no appendicitis or bowel obstruction ordiverticulitis. Equivocal for mild colitis. She is having ongoing pain, some loose stool, no blood. We discussed oral hydration. I offered to send in a prescription for nausea but she declined this. She plans to rest and monitor symptoms and if things worsen or fail to improve, she will follow-up. documented in this encounter Plan of Treatment Not on filedocumented as of this encounter Visit Diagnoses Not on filedocumented in this encounter Care Teams Claim Agent Relationship Specialty Start Date End Date Roopa Lopez MD PCP - General Family Medicine 07/15/19 02/26/[address] [place] [address] documented as of this encounter
--- OUTSIDE RECORDS SUMMARY | 2021-10-22 11:46 | XMS_ITS | Encounter Summary ---
:1970 Author Organization [facility] Address [address] [place] [address] Care Team Providers Name Role Phone Roopa Lopez MD Primary Care Provider Encounter Details Date Type Department Care Team Description 09/24/2019 Lab Robert Guerrero Glucose intolerance; [address] Graves disease ERNESTO Ramirez [address] Social History Tobacco Use Types [...] Name Priority Date/Time Associated Diagnosis Comme nts FASTING ? Routine 09/24/2019 8:07 AM Glucose intolerance Re sults for this CDT procedure are i n the results section . T3 Routine 09/24/2019 8:07 AM Graves disease Results for this CDT procedure are i n the results section . TSH Routine 09/24/2019 8:07 AM Graves disease Results for this CDT procedure are i n the results section . T4, FREE Routine 09/24/2019 8:07 AM Graves disease Results for this CDT procedure are i n the results section . GLUCOSE Routine 09/24/2019 8:07 AM Glucose intolerance Re sults for this CDT procedure are i n the results section . documented in this encounter Results Fasting ? (09/24/2019 8:07 AM CDT) athologist Signature Fasting? Yes 09/24/2019 [facility] 8:13 AM CDT [facility] Specimen Anatomical Collection Method Collection Time Receive d Time (Source) Location / / Volume Laterality 09/24/2019 8:07 AM 0 8:13 CDT AM CDT Roopa Lopez MD LAB BLOOD ORDERABLES Performing Organization Address [facility]/ZIP Code Phon e Number [facility] [address] [place] [address] (ABNORMAL) T4, free (09/24/2019 8:07 AM CDT) athologist Signature Free T4 0.16 (L) 0.78 - 2.19 09/24/2019 [facility] ng/dL 1:52 PM CDT [facility] Comment: [...] (Source) Location / / Volume Laterality Blood 09/24/2019 8:07 AM 0 CDT 12:37 PM CDT Valerie Major MD LAB BLOOD ORDERABLES Performing Organization Address City/[facility]/ZIP Code Phon e Number [facility] [address] [place] [address] (ABNORMAL) TSH (09/24/2019 8:07 AM CDT) [facility] gist Method Time Signature TSH, Sensitive 15.70 (H) 0.46 - 09/24/2019 NICOLE 4.68 mIU/L 2:04 PM CDT [facility] Comment: The [...] (Source) Location / / Volume Laterality Blood 09/24/2019 8:07 AM 0 CDT 12:37 PM CDT Valerie Major MD LAB BLOOD ORDERABLES Performing Organization Address City/[facility] Phon e Number [facility] [address] [place] [address] (ABNORMAL) T3 (09/24/2019 8:07 AM CDT) athologist Signature T3, Total 0.74 (L) 0.97 - 1.69 09/24/2019 [facility] ng/mL 2:04 PM CDT [facility] Comment: The results [...] (Source) Location / / Volume Laterality Blood 09/24/2019 8:07 AM 0 CDT 12:37 PM CDT Valerie Major MD LAB BLOOD ORDERABLES Performing Organization Address City/[facility] Phon e Number [facility] [address] [place] [address] Glucose, fasting (09/24/2019 8:07 AM CDT) athologist Signature Glucose 97 70 - 100 09/24/2019 [facility] mg/dL 1:51 PM CDT [facility] Specimen Anatomical Collection Method Collection Time Receive d Time (Source) Location / / Volume Laterality Blood (Blood, 09/24/2019 8:07 AM 09/24/19 20 Venous) CDT 12:51 PM CDT Roopa Lopez MD LAB BLOOD ORDERABLES Performing Organization Address City/State/ZIP Code Phon e Number [facility] [address] [place] [phone] documented in this encounter Visit Diagnoses Diagnosis Glucose intolerance Graves disease Toxic diffuse goiter without mention of thyrotoxic crisis or storm documented in this encounter Care Teams Local Area Network Administrator Relationship Specialty Start Date End Date Roopa Lopez MD PCP - General Family Medicine 07/15/19 02/26/[address] [place] [address] documented as of this encounter
--- OUTSIDE RECORDS SUMMARY | 2021-10-22 11:46 | XMS_ITS | Encounter Summary ---
:1970 Author Organization [facility] Address [address] [place] [address] Care Team Providers Name Role Phone Roopa Lopez MD Primary Care Provider Reason for Referral Consultation (Routine) - Closed Specialty Diagnoses / Procedures Referred By Contact Refer red To Contact Diagnoses Right lower quadrant abdominal pain Penny Palacios MD [address] [phone] [address] Phone: Fax: Referral ID Status Reason Start Date Expiration Date Visits Requ ested Visits Authorized [id number] Closed 11/04/2019 11/04/2020 1 1 Reason for Visit Reason Comments Lower Right Side Pain Encounter Details Date Type Department Care Team Description 11/04/2019 [place] Right lower quadrant [address] MD Calvin abdominal pain [place], [place] (Primary Dx ) [phone] Social History Tobacco Use Types Packs/Day Years [...] Sign Reading Time Taken Comments Blood Pressure 144/90 11/04/2019 9:16 AM CDT Pulse 74 11/04/2019 9:16 AM CDT Temperature 36.5 ??C (97.7 ??F) 11/04/2019 9:16 AM CDT Respiratory Rate 18 11/04/2019 9:16 AM CDT Oxygen Saturation 97% 11/04/2019 9:16 AM CDT Inhaled Oxygen Concentration - - Weight 85.3 kg (188 lb) 11/04/2019 9:16 AM CDT Height 174.8 cm (5' 8.82) 11/04/2019 9:16 AM CDT Body Mass Index 27.91 11/04/2019 9:16 AM CDT documented in this encounter Progress Notes Penny Palacios MD - 11/04/2019 9:20 AM CDT Estab Patient Visit Subjective Patient ID: Laura Novak is a 49 y.o. female. Chief Complaint Patient presents with ??? Lower Right Side Pain HPI Patient is a 49-year-old female with hypothyroidism who presents for worsening acute abdominal pain.This morning, the pain was severe and associated with decreased appetite, nausea and watery diarrhea. The pain is in the right lower abdomen and radiates into the groin. With movement it is worse. She has had no fever but has had chills. She reports some urinary hesitancy that has been present for thelast week. She said the pain on the right side has been present to a much lesser extent and intermittent over the last week or so and today suddenly worsened. She has had hysterectomy at age 33. She has a distant history of urinary tract infections. She has no history of kidney stones. She normally takes Lasix but did not take it this morning. She denies any chest pain. Current Outpatient Medications on File Prior to Visit Medication Sig Dispense Refill ??? Bacillus Coagulans-Inulin (PROBIOTIC-PREBIOTIC PO) Take 1-2 each by mouth 1 (one) time each day Chewables ??? furosemide (Lasix) 20 MG tablet Take [...] MOUTH AT BEDTIME 90 tablet 2 ??? traZODone (DESYREL) 50 MG tablet Take 1 tablet (50 mg total) by mouth every night 1 to 2 [id number] tablet 3 ??? verapamil ER (VERELAN) 240 MG 24 hr capsule Take one a day for heart 90 capsule 3 No current facility-administered medications on file prior to visit. Morphine and Oxycodone-acetaminophen The following portions of the patient's chart were reviewed in this encounter and updated as appropriate: Tobacco Allergies Meds Med Hx Surg Hx Fam Hx Review of Systems See HPI. Objective Physical Exam Blood pressure 144/90, pulse 74, temperature 36.5 ??C (97.7 ??F), temperature source Temporal, resp.rate 18, height 1.748 m (5' 8.82), weight 85.3 kg (188 lb), SpO2 97 %. Generally she is uncomfortable appearing but able to speak in complete sentences. She is able to get on the exam table without assistance. Pupils equal round reactive to light, sclera anicteric. Oropharynx shows moist mucous membranes. Neck supple without lymphadenopathy or thyromegaly. Heart regular rate and rhythm without murmurs rubs or gallops. Lungs clear to auscultation bilaterally. Abdomen with decreased bowel sounds and she has no distention but tenderness to palpation on the right lower abdomen with some guarding but no rebound. Palpation of the left side produces pain on the right. She has no CVA tenderness. Lower extremities without edema. Lab Results Component Value Date GLUCOSE 105 (H) 10/18/2019 CALCIUM 9.2 10/18/2019 NA 138 10/18/2019 K 3.6 10/18/2019 CO2 26 10/18/2019 CL 103 10/18/2019 BUN 14 10/18/2019 CREATININE 0.7 10/18/2019 Lab Results Component Value Date WBC 4.8 06/16/2019 HGB 13.6 06/16/2019 HCT 39.1 06/16/2019 MCV 87.1 06/16/2019 PLT 279 06/16/2019 Normal UA. Assessment/Plan Diagnoses and all orders for this visit: Right lower quadrant abdominal pain - CBC Branch Off w/Diff; Future - Urinalysis with reflex microscopic; Future - Basic metabolic panel; Future Her labs are unrevealing as to the etiology of her acute right lower abdominal pain and discussed monitoring or having a CT to exclude the possibility of appendicitis. Recommend CT which was able to beset up at [facility] in [place]. I have asked them to call me with results. I will be in touch with patient later today. This dictation was created with voice recognition software and therefore may contain errors that went unnoticed. There are no Patient Instructions on file for this visit. documented in this encounter Plan of Treatment Scheduled Referrals Name Type Priority Associated Order Schedule Diagnoses Ambulatory External Outpatient Referral Routine Right lower O rdered: Referral quadrant abdominal 0 pain documented as of this encounter Results (ABNORMAL) Urinalysis with reflex microscopic (11/04/2019 9:45 AM CDT) [facility] Method Time Signature Type CLEAN CATCH 11/04/2019 [facility] 10:12 AM CDT [place] Color, Urine YELLOW YELLOW 11/04/2019 [facility] 10:12 AM CDT [place] Clarity, CLEAR CLEAR 11/04/2019 [facility] Urine 10:12 AM CDT [place] Glucose, NEGATIVE NEGATIVE 11/04/2019 [facility] Urine mg/dL 10:12 AM CDT [place] Bilirubin, NEGATIVE NEGATIVE 11/04/2019 [facility] Urine 10:12 AM CDT [place] Ketones, NEGATIVE NEGATIVE 11/04/2019 [facility] Urine mg/dL 10:12 AM CDT [place] Specific 1.020 1.000 11/04/2019 [facility] Hale, ->=1.030 10:12 AM CDT [place] Urine Blood, Urine NEGATIVE NEGATIVE 11/04/2019 [facility] 10:12 AM CDT [place] pH, Urine 7.5 (A) 5.0 - 7.0 11/04/2019 [facility] 10:12 AM CDT [place] Protein, NEGATIVE NEGATIVE-TRA 11/04/2019 [facility] Urine CE mg/dL 10:12 AM CDT [place] Urobilinogen, 0.2 0.2 - 1.0 11/04/2019 [facility] Urine E.U./dL 10:12 AM CDT [place] Nitrite, NEGATIVE NEGATIVE 11/04/2019 [facility] Urine 10:12 AM CDT [place] Leukocytes, NEGATIVE NEGATIVE 11/04/2019 [facility] Urine 10:12 AM CDT [place] Specimen Anatomical Collection Method Collection Time Receive d Time (Source) Location / / Volume Laterality Urine (Urine, 11/04/2019 9:45 AM 11/04/19 9:47 Clean Catch) CDT AM CDT Penny Palacios MD LAB URINE ORDERABLES Performing Organization Address City/State/ZIP Code Phon e Number [facility] [address] [place] [address] Basic metabolic panel (11/04/2019 9:40 AM CDT) P athologist Signature Sodium 136 135 - 145 11/04/2019 [facility] mmol/L 10:11 AM CDT [place] Potassium 4.3 3.5 - 5.1 11/04/2019 [facility] mmol/L 10:11 AM CDT [place] Comment: . Chloride 104 98 - 107 mmol/L 11/04/2019 10:11 AM CDT [facility] [place] Comment: . CO2 27 22 - 29 mmol/L 11/04/2019 10:11 AM CDT [facility] [place] Comment: . Creatinine 0.6 0.4 - 1.2 mg/dL 11/04/2019 10:11 AM CDT [facility] [place] Comment: . BUN 12 5 - 25 mg/dL 11/04/2019 10:11 AM CDT [facility] [place] Comment: . Glucose 97 70 - 100 mg/dL 11/04/2019 10:11 AM CDT [facility] [place] Calcium, Total,S 9.7 8.4 - 10.2 mg/dL 11/04/2019 10:11 AM CDT [facility] [place] Comment: . Fasting? Yes 11/04/2019 9:50 AM CDT [facility] [place] Specimen Anatomical Collection Method Collection Time Receive d Time (Source) Location / / Volume Laterality Blood 11/04/2019 9:40 AM 0 9:50 CDT AM CDT Penny Palacios MD LAB BLOOD ORDERABLES Performing Organization Address City/State/ZIP Code Phon e Number [facility] [address] [place] [address] CBC Branch Off w/Diff (11/04/2019 9:40 AM CDT) P athologist Signature WBC 5.9 3.5 - 10.5 11/04/2019 [facility] K/uL 10:11 AM CDT [place] RBC 4.75 3.90 - 11/04/2019 [facility] 5.00 M/uL 10:11 AM CDT [place] Hemoglobin 14.5 12.0 - 11/04/2019 [facility] 15.5 g/dL 10:11 AM CDT [place] Hematocrit 41.2 35.0 - 11/04/2019 [facility] 44.0 % 10:11 AM CDT [place] Platelets 327 150 - 450 11/04/2019 [facility] K/uL 10:11 AM CDT [place] MCV 86.7 81.6 - 11/04/2019 [facility] 98.3 fL 10:11 AM CDT [place] MCH 30.5 26.0 - 11/04/2019 [facility] 32.0 pg 10:11 AM CDT [place] MCHC 35.2 32.0 - 11/04/2019 [facility] 36.0 g/dL 10:11 AM CDT [place] RDW 14.3 11.9 - 11/04/2019 [facility] 15.5 % 10:11 AM CDT [place] Lymphocytes % 26.8 % 11/04/2019 [facility] 10:11 AM CDT [place] Mid-size Cells 12.0 % 11/04/2019 [facility] 10:11 AM CDT [place] Granulocytes/Leslie 61.2 % 11/04/2019 [facility] trophils 10:11 AM CDT [place] Lymphocytes 1.6 0.9 - 2.9 11/04/2019 [facility] Absolute K/uL 10:11 AM CDT [place] MIDS Absolute 0.7 0.4 - 1.5 11/04/2019 [facility] K/uL 10:11 AM CDT [place] Granulocytes/Leslie 3.6 1.7 - 7.0 11/04/2019 [facility] trophils K/uL 10:11 AM CDT [place] Absolute Specimen Anatomical Collection Method Collection Time Receive d Time (Source) Location / / Volume Laterality Blood 11/04/2019 9:40 AM 0 9:50 CDT AM CDT Penny Palacios MD LAB BLOOD ORDERABLES Performing Organization Address City/State/ZIP Code Phon e Number [facility] [place] [address] [place] [address] documented in this encounter Visit Diagnoses Diagnosis Right lower quadrant abdominal pain - Pr imary documented in this encounter Care Teams Pit Crane Operator Relationship Specialty Start Date End Date Roopa Lopez MD PCP - General Family Medicine 07/15/19 02/26/[address] [place] [address] documented as of this encounter
--- OUTSIDE RECORDS SUMMARY | 2021-10-22 11:46 | XMS_ITS | Encounter Summary ---
:1970 Author Organization [facility] Address [address] [place] [address] Care Team Providers Name Role Phone Roopa Lopez MD Primary Care Provider Encounter Details Date Type Department Care Team Description 08/12/2019 Travel Social History Tobacco Use Types Packs/Day Years [...] Date Recorded Female 10/20/2019 7:44 AM CDT COVID-19 Exposure Response Date Recorded In the last month, have you been in contact with No / Unsure 08/12/2019 8:21 AM CDT someone who was confirmed or suspected to have Coronavirus / COVID-19? documented as of this encounter Plan of Treatment Not on filedocumented as of this encounter Visit Diagnoses Not on filedocumented in this encounter Care Teams Care Manager Relationship Specialty Start Date End Date Roopa Lopez MD PCP - General Family Medicine 07/15/19 02/26/[address] [place] [address] documented as of this encounter
--- OUTSIDE RECORDS SUMMARY | 2021-10-22 11:46 | XMS_ITS | Encounter Summary ---
:1970 Author Organization [facility] Address [address] [place] [address] Care Team Providers Name Role Phone Roopa Lopez MD Primary Care Provider Encounter Details Date Type Department Care Team Description 11/04/2019 Lab [place] Postablative hypothyroidism; [address] Right lower quadrant abdomin al pain [place]NESTO Ramirez [phone] Social History Tobacco [...] Name Priority Date/Time Associated Diagnosis Comme nts URINALYSIS WITH Routine 11/04/2019 9:45 Right lower quadrant R esults for this REFLEX MICROSCOPIC AM CDT abdominal pain procedu re are in the results section. GLOMERULAR Routine 11/04/2019 9:40 Right lower quadrant Resu lts for this FILTRATION RATE AM CDT abdominal pain procedure are in the results section. CBC BRANCH OFFICE Routine 11/04/2019 9:40 Right lower quadrant Results for this W/DIFF AM CDT abdominal pain procedure are in the results section. TSH Routine 11/04/2019 9:40 Postablative Results for this AM CDT hypothyroidism procedure are in the results section. T4, FREE Routine 11/04/2019 9:40 Postablative Results for this AM CDT hypothyroidism procedure are in the results section. BASIC METABOLIC Routine 11/04/2019 9:40 Right lower quadrant R esults for this PANEL AM CDT abdominal pain procedure are in the results section. documented in this encounter Results (ABNORMAL) Urinalysis with reflex microscopic (11/04/2019 9:45 AM CDT) [facility] Method Time Signature Type CLEAN CATCH 11/04/2019 [facility] 10:12 AM CDT [place] Color, Urine YELLOW YELLOW 11/04/2019 [facility] 10:12 AM CDT [place] Clarity, CLEAR CLEAR 11/04/2019 [facility] Urine 10:12 AM CDT [place] Glucose, NEGATIVE NEGATIVE 11/04/2019 [facility] Urine mg/dL 10:12 AM CDT [place] Bilirubin, NEGATIVE NEGATIVE 11/04/2019 [facility] Urine 10:12 AM CDT [place] Ketones, NEGATIVE NEGATIVE 11/04/2019 [facility] Urine mg/dL 10:12 AM CDT [place] Specific 1.020 1.000 11/04/2019 [facility] [place], ->=1.030 10:12 AM CDT [place] Urine Blood, Urine NEGATIVE NEGATIVE 11/04/2019 [facility] 10:12 AM CDT [place] pH, Urine 7.5 (A) 5.0 - 7.0 11/04/2019 [facility] 10:12 AM CDT [place] Protein, NEGATIVE NEGATIVE-TRA 11/04/2019 [facility] Urine CE mg/dL 10:12 AM CDT [place] Urobilinogen, 0.2 0.2 - 1.0 11/04/2019 [facility] Urine E.U./dL 10:12 AM CDT [place] Nitrite, NEGATIVE NEGATIVE 11/04/2019 [facility] Urine 10:12 AM CDT [place] Leukocytes, NEGATIVE NEGATIVE 11/04/2019 [facility] Urine 10:12 AM CDT [place] Specimen Anatomical Collection Method Collection Time Receive d Time (Source) Location / / Volume Laterality Urine (Urine, 11/04/2019 9:45 AM 11/04/19 9:47 Clean Catch) CDT AM CDT Penny Palacios MD LAB URINE ORDERABLES Performing Organization Address City/[facility] [address]/ZIP Code Phon e Number [facility] [place] [address] [place] [address] Glomerular filtration rate (GFR) (11/04/2019 9:40 AM CDT) athologist Signature GFR >60 11/04/2019 [facility] 10:11 AM CDT [facility] >60 11/04/2019 [facility] Chile[place] GFR 10:11 AM CDT [facility] Comment: GFR calculated from serum creatinine v alue Chronic Kidney Disease less than 60 mL/m in/1.73 m2 Kidney Failure less than 15 mL/min/1.73 m2 Note: effective 07/23/06 IDMS-Traceable MDRD Study Equation used. Specimen Anatomical Collection Method Collection Time Receive d Time (Source) Location / / Volume Laterality 11/04/2019 9:40 AM 0 9:40 CDT AM CDT Penny Palacios MD LAB BLOOD ORDERABLES Performing Organization Address City/[facility] [address]/ZIP Code Phon e Number [facility] [address] [place] [address] Basic metabolic panel (11/04/2019 9:40 AM CDT) athologist Signature Sodium 136 135 - 145 11/04/2019 [facility] mmol/L 10:11 AM CDT [place] Potassium 4.3 3.5 - 5.1 11/04/2019 [facility] mmol/L 10:11 AM CDT [place] Comment: . Chloride 104 98 - 107 mmol/L 11/04/2019 10:11 AM CDT [facility] [place] Comment: . CO2 27 22 - 29 mmol/L 11/04/2019 10:11 AM CDT [facility] [place] Comment: . Creatinine 0.6 0.4 - 1.2 mg/dL 11/04/2019 10:11 AM CDT [facility] [place] Comment: . BUN 12 5 - 25 mg/dL 11/04/2019 10:11 AM CDT [facility] [place] Comment: . Glucose 97 70 - 100 mg/dL 11/04/2019 10:11 AM CDT [facility] [place] Calcium, Total,S 9.7 8.4 - 10.2 mg/dL 11/04/2019 10:11 AM CDT [facility] [place] Comment: . Fasting? Yes 11/04/2019 9:50 AM CDT [facility] [place] Specimen Anatomical Collection Method Collection Time Receive d Time (Source) Location / / Volume Laterality Blood 11/04/2019 9:40 AM 0 9:50 CDT AM CDT Penny Palacios MD LAB BLOOD ORDERABLES Performing Organization Address City/State/ZIP Code Phon e Number [facility] [place] [address] [place] [address] CBC Branch Off w/Diff (11/04/2019 9:40 AM CDT) P athologist Signature WBC 5.9 3.5 - 10.5 11/04/2019 [facility] K/uL 10:11 AM CDT [place] RBC 4.75 3.90 - 11/04/2019 [facility] 5.00 M/uL 10:11 AM CDT [place] Hemoglobin 14.5 12.0 - 11/04/2019 [facility] 15.5 g/dL 10:11 AM CDT [place] Hematocrit 41.2 35.0 - 11/04/2019 [facility] 44.0 % 10:11 AM CDT [place] Platelets 327 150 - 450 11/04/2019 [facility] K/uL 10:11 AM CDT [place] MCV 86.7 81.6 - 11/04/2019 [facility] 98.3 fL 10:11 AM CDT [place] MCH 30.5 26.0 - 11/04/2019 [facility] 32.0 pg 10:11 AM CDT [place] MCHC 35.2 32.0 - 11/04/2019 [facility] 36.0 g/dL 10:11 AM CDT [place] RDW 14.3 11.9 - 11/04/2019 [facility] 15.5 % 10:11 AM CDT [place] Lymphocytes % 26.8 % 11/04/2019 [facility] 10:11 AM CDT [place] Mid-size Cells 12.0 % 11/04/2019 [facility] 10:11 AM CDT [place] Granulocytes/Leslie 61.2 % 11/04/2019 [facility] trophils 10:11 AM CDT [place] Lymphocytes 1.6 0.9 - 2.9 11/04/2019 [facility] Absolute K/uL 10:11 AM CDT [place] MIDS Absolute 0.7 0.4 - 1.5 11/04/2019 [facility] K/uL 10:11 AM CDT [place] Granulocytes/Leslie 3.6 1.7 - 7.0 11/04/2019 [facility] trophils K/uL 10:11 AM CDT [place] Absolute Specimen Anatomical Collection Method Collection Time Receive d Time (Source) Location / / Volume Laterality Blood 11/04/2019 9:40 AM 0 9:50 CDT AM CDT Penny Palacios MD LAB BLOOD ORDERABLES Performing Organization Address City/[facility] [address]/ZIP Code Phon e Number [facility] [place] [address] [place] [address] (ABNORMAL) TSH (11/04/2019 9:40 AM CDT) Analysis Performed At Patho logist Time Signature TSH, Sensitive 0.15 (L) 0.46 - 11/04/2019 [place] 4.68 mIU/L 2:45 PM CDT [facility] Comment: The results from this [...] Organization Address City/State/ZIP Code Phon e Number [facility] [address] [place] [address] T4, free (11/04/2019 9:40 AM CDT) P athologist Signature Free T4 1.50 0.78 - 2.19 11/04/2019 [facility] ng/dL 2:32 PM CDT [facility] Comment: The results [...] Organization Address City/State/ZIP Code Phon e Number [facility] [address] [place] [address] documented in this encounter Visit Diagnoses Diagnosis Postablative hypothyroidism Other postablative hypothyroidism Right lower quadrant abdominal pain documented in this encounter Care Teams Plasticator Relationship Specialty Start Date End Date Roopa Lopez MD PCP - General Family Medicine 07/15/19 02/26/[address] [place] [address] documented as of this encounter
--- OUTSIDE RECORDS SUMMARY | 2021-10-22 11:46 | XMS_ITS | Encounter Summary ---
:1970 Author Organization [facility] Address [address] [place] [address] Care Team Providers Name Role Phone Roopa Lopez MD Primary Care Provider Reason for Visit Reason Comments Med Refill Encounter Details Date Type Department Care Team Description 09/21/2019 Refill ChloeRoopa Gandhi, GUSTAVO (generalized anxiety [address] [facility] [address] MD disorder) [place] [phone] [phone] [place] [phone] Social History Tobacco Use Types Packs/Day Years [...] Telephone Encounter - Ana Le MA - 09/24/2019 7:57 AM CDT Last visit in provider department: 06/09/2019 Last visit requested medication was discussed: 06/09/2019 Upcoming appointment with provider: none Last Rx: 06/09/2019 # 90, 1 refill. Was filled at [facility] mail is requesting. Requested Prescriptions Pending Prescriptions Disp Refills ??? sertraline (ZOLOFT) 50 MG tablet [Pharmacy Med Name: SERTRALINE HCL 50MG TABS] 150 tablet 0 Sig: TAKE ONE TABLET BY MOUTH EVERY MORNING FOR ANXIETY AND DEPRESSION Labs: 09/08/2019 PHQ9: 15 / GAD7: 3 Vitals: BP Readings from Last 2 Encounters: 09/08/19 132/72 07/02/19 112/74 documented in this encounter Plan of Treatment Not on filedocumented as of this encounter Visit Diagnoses Diagnosis GUSTAVO (generalized anxiety disorder) Generalized anxiety disorder documented in this encounter Care Teams Financial Management Consultant Relationship Specialty Start Date End Date Roopa Lopez MD PCP - General Family Medicine 07/15/19 02/26/[address] [place] [address] documented as of this encounter
--- OUTSIDE RECORDS SUMMARY | 2021-10-22 11:46 | XMS_ITS | Encounter Summary ---
:1970 Author Organization [facility] Address [address] [place] [address] Care Team Providers Name Role Phone Roopa Lopez MD Primary Care Provider Encounter Details Date Type Department Care Team Description 12/22/2019 Lab [place] Postablative hypothyroidism [address] [place] [address] Social History Tobacco Use Types Packs/Day Years [...] Date/Time Associated Diagnosis Comme nts TSH Routine 12/22/2019 1:11 PM Postablative Results f or this CDT hypothyroidism procedure are in the results section. T4, FREE Routine 12/22/2019 1:11 PM Postablative Results f or this CDT hypothyroidism procedure are in the results section. documented in this encounter Results TSH (12/22/2019 1:11 PM CDT) P athologist Signature TSH, Sensitive 0.46 0.46 - [...] MD LAB BLOOD ORDERABLES Performing Organization Address [facility] Phon e Number [facility] [address] [place] [address] T4, free (12/22/2019 1:11 PM CDT) P athologist Signature Free T4 1.24 0.78 - 2.19 12/23/2019 [facility] ng/dL 1:52 PM CDT [facility] [...] MD LAB BLOOD ORDERABLES Performing Organization Address [facility] Phon e Number [facility] [address] [place] [address] documented in this encounter Visit Diagnoses Diagnosis Postablative hypothyroidism Other postablative hypothyroidism documented in this encounter Care Teams Learning Specialist Relationship Specialty Start Date End Date Roopa Lopez MD PCP - General Family Medicine 07/15/19 02/26/21 [address] [facility] [address] [place] [address] documented as of this encounter
--- OUTSIDE RECORDS SUMMARY | 2021-10-22 11:46 | XMS_ITS | Encounter Summary ---
:1970 Author Organization [facility] Address [address] [place] [address] Care Team Providers Name Role Phone Roopa Lopez MD Primary Care Provider Reason for Visit Reason Comments Med Refill Encounter Details Date Type Department Care Team Description 11/08/2019 Refill Roopa Caldwell, History of coronary [address] [facility] 20 vasospasm [place] [address] [phone] Rogelio Guerrero [place]ST[place] [address] Social History Tobacco Use Types Packs/Day Years [...] this encounter Miscellaneous Notes Telephone Encounter - Celsa Childs MA - 11/10/2019 8:58 AM CDT Last visit in provider department: 11/04/2019 Last visit requested medication was discussed: 09/02/2018 Upcoming appointment with provider: None Last Rx: 09/02/2018- 90 with 3 refills Requested Prescriptions Pending Prescriptions Disp Refills ??? verapamil ER (VERELAN) 240 MG 24 hr capsule [Pharmacy Med Name: VERAPAMIL HCL ER 240MG CP24] 90 capsule 0 Sig: TAKE ONE CAPSULE BY MOUTH ONCE DAILY Labs: Component Latest Ref Rng & Units 06/16/2019 Total Protein 6.3 - 8.2 g/dL 7.1 Albumin, Serum 3.5 - 5.0 g/dL 4.0 Total Bilirubin 0.1 - 1.0 mg/dL 0.9 AST 8 - 43 U/L 60 (H) Alkaline Phosphatase 38 - 128 U/L 42 ALT (SGPT) 0 - 34 U/L 56 (H) Sodium 135 - 145 mEq/L 134 (L) Potassium 3.5 - 5.1 mEq/L 4.0 Chloride 98 - 107 mEq/L 98 CO2 22 - 29 mmol/L 26 BUN 5 - 25 mg/dL 12 Creatinine 0.4 - 1.2 mg/dL 0.5 Glucose 70 - 100 mg/dL 156 (H) Calcium, Total,S 8.4 - 10.2 mg/dL 9.8 Fasting? No Vitals: BP Readings from Last 2 Encounters: 11/04/19 144/90 10/18/19 120/62 documented in this encounter Plan of Treatment Not on filedocumented as of this encounter Visit Diagnoses Diagnosis History of coronary vasospasm documented in this encounter Care Teams Business Associate Relationship Specialty Start Date End Date Roopa Lopez MD PCP - General Family Medicine 07/15/19 02/26/21 [address] [place] [address] documented as of this encounter
--- OUTSIDE RECORDS SUMMARY | 2021-10-22 11:46 | XMS_ITS | Encounter Summary ---
:1970 Author Organization [facility] Address [address] [place] [address] Care Team Providers Name Role Phone Roopa Lopez MD Primary Care Provider Encounter Details Date Type Department Care Team Description 09/02/2019 Lab Robert Guerrero Graves disease; [address] Edema, unspecified type ERNESTO Ramirez [address] Social History Tobacco [...] Priority Date/Time Associated Diagnosis Comme nts GLOMERULAR Routine 09/02/2019 9:17 AM Edema, unspecified Res ults for this FILTRATION RATE CDT type procedure ar e in the results section. TSH Routine 09/02/2019 9:17 AM Graves disease Results for this CDT procedure are i n the results section. T4, FREE Routine 09/02/2019 9:17 AM Graves disease Results for this CDT procedure are i n the results section. BASIC METABOLIC Routine 09/02/2019 9:17 AM Edema, unspecified Results for this PANEL CDT type procedure are i n the results section. documented in this encounter Results Glomerular filtration rate (GFR) (09/02/2019 9:17 AM CDT) P athologist Signature GFR >60 09/02/2019 [facility] 1:07 PM CDT CENTER LAB[facility]ATORY >60 09/02/2019 [facility] Solomon Islander GFR 1:07 PM T CENTER LAB[facility]ORY Comment: GFR calculated from serum creatinine v alue Chronic Kidney Disease less than 60 mL/m in/1.73 m2 Kidney Failure less than 15 mL/min/1.73 m2 Note: effective 07/23/06 IDMS-Traceable MDRD Study Equation used. Specimen Anatomical Collection Method Collection Time Receive d Time (Source) Location / / Volume Laterality 09/02/2019 9:17 AM 0 9:17 CDT AM CDT Valerie Major MD LAB BLOOD ORDERABLES Performing Organization Address City/State/ZIP Code Phon e Number [facility] [address] [place] [address] (ABNORMAL) Basic metabolic panel (09/02/2019 9:17 AM CDT) Analysis Performed At Patho logist Time Signature Sodium 138 135 - 145 09/02/2019 [place] mEq/L 1:07 PM [facility] Potassium 3.7 3.5 - 5.1 09/02/2019 [place] mEq/L 1:07 PM [facility] Chloride 105 98 - 107 09/02/2019 [place] mEq/L 1:07 PM [facility] CO2 24 22 - 29 09/02/2019 [place] mmol/L 1:07 PM [facility] Creatinine 0.5 0.4 - 1.2 09/02/2019 [place] mg/dL 1:07 PM [facility] BUN 14 5 - 25 09/02/2019 [place] mg/dL 1:07 PM [facility] Glucose 119 (H) 70 - 100 09/02/2019 [place] mg/dL 1:07 PM CDT [facility] Calcium, 9.8 8.4 - 10.2 09/02/2019 [facility] Total,S mg/dL 1:07 PM [facility] Fasting? Yes 09/02/2019 [facility] 9:20 AM [facility] Specimen Anatomical Collection Method Collection Time Receive d Time (Source) Location / / Volume Laterality Blood 09/02/2019 9:17 AM 0 1:07 CDT PM CDT Valerie Major MD LAB BLOOD ORDERABLES Performing Organization Address City/[facility]/ZIP Code Phon e Number [facility] [address] [place] [address] [facility] [address] [place] [address] LABORATORY T4, free (09/02/2019 9:17 AM CDT) athologist Signature Free T4 1.84 0.78 - 2.19 09/03/2019 [facility] ng/dL 2:34 PM [facility] Comment: The results from this or [...] (Source) Location / / Volume Laterality Blood 09/02/2019 9:17 AM 0 1:04 CDT PM CDT Valerie Major MD LAB BLOOD ORDERABLES Performing Organization Address City/State/ZIP Code Phon e Number [facility] [address] [place] [address] (ABNORMAL) TSH (09/02/2019 9:17 AM CDT) [facility] Time Signature TSH, Sensitive <0.01 (L) 0.46 - 09/03/2019 [place] 4.68 mIU/L 2:50 PM [facility] CENTER [facility]AT[facility] Comment: The results from this [...] (Source) Location / / Volume Laterality Blood 09/02/2019 9:17 AM 0 1:04 CDT PM CDT Valerie Major MD LAB BLOOD ORDERABLES Performing Organization Address City/State/ZIP Code Phon e Number [facility] [address] [place] [address] documented in this encounter Visit Diagnoses Diagnosis Graves disease Toxic diffuse goiter without mention of thyrotoxic crisis or storm Edema, unspecified type documented in this encounter Care Teams Director Of Athletics Relationship Specialty Start Date End Date Roopa Lopez MD PCP - General Family Medicine 07/15/19 02/26/21 [address] [place] [address] documented as of this encounter
--- OUTSIDE RECORDS SUMMARY | 2021-10-22 11:46 | XMS_ITS | Encounter Summary ---
:[address] [facility] Address [address] [place] [address] Care Team Providers Name Role Phone Roopa Lopez MD Primary Care Provider Encounter Details Date Type Department Care Team Description 09/13/2019 Orders Only Roopa Caldwell MD [address] [place], [place] [address] [place], [place] [phone] [address] (Wo rk) Social History Tobacco Use Types [...] on filedocumented in this encounter Care Teams Behavioral Health Technician Relationship Specialty Start Date End Date Roopa Lopez MD PCP - General Family Medicine 07/15/19 02/26/[address] [place] [address] documented as of this encounter
--- OUTSIDE RECORDS SUMMARY | 2021-10-22 11:46 | XMS_ITS | Encounter Summary ---
:1970 Author Organization [facility] Address [address] [place] [address] Care Team Providers Name Role Phone Roopa Lopez MD Primary Care Provider Encounter Details Date Type Department Care Team Description 02/18/2020 Lab [facility] Screening examination for [facility] inf ectious disease [address] [place] [address] Social History Tobacco Use Types Packs/Day Years [...] Name Priority Date/Time Associated Diagnosis Comme nts SARS CORONAVIRUS 2 Routine 02/18/2020 7:58 AM Screening Res ults for this RNA DETECTION, V HADOOP DEVELOPER examination for procedur e are in infectious disease the resul ts section. documented in this encounter Results SARS Coronavirus 2 RNA detection, v (02/18/2020 7:58 AM HADOOP DEVELOPER) [facility] Method Time Signature SARS Covid Nasopharyngeal 02/18/2020 [facility] specimen 4:41 PM HADOOP DEVELOPER LABORATORIES source Patient Race White 02/18/2020 [facility] 4:41 PM HADOOP DEVELOPER LABORATORIES Patient DECLINE 02/18/2020 [facility] Ethnicity 4:41 PM HADOOP DEVELOPER LABORATORIES SARS CoV2 Undetected Undetected 02/18/2020 [facility] RNA 4:41 PM HADOOP DEVELOPER LABORATORIES Comment: SARS-CoV-2 RNA absent. This result does not rule out COVID-19 in the patient, as the sensitiv ity of the test depends on the timing of the specimen co llection and the quality of the specimen. Result should b e correlated with patient's history and clinical presentat ion. Method - 02/18/2020 4:41 PM HADOOP DEVELOPER [facility] LABORATORIES Comment: THFSH- This test uses the TaqPath COVID- 19 Combo Kit ([employer] Murray.) and is performed on the Floqq magnetic particle processor and [employer] 7500 Fast Dx Real-Time PCR System. It has rec eived Emergency Use Authorization (EUA) by the U.S. Food and Drug Administration. Performance characterist ics were verified by [facility] in a manner consistent wi CLIA requirements. Fact sheets for this Emergency Use Autho rization (EUA) can be found at the following links: https://www.fda.gov/media/897625/downloa d for Healthcare Providers https://www.fda.gov/media/916255/downloa d for Patients Test Performed by: [place] [address] Lieutenant/Deputy: Butch Guerrero M.D. Ph. D.; CLIA# [id number] Specimen Anatomical Collection Method Collection Time Receive d Time (Source) Location / / Volume Laterality Swab 02/18/2020 7:58 AM 0 9:28 (Nasopharyngeal) HADOOP DEVELOPER AM HADOOP DEVELOPER Lina Goldstein APRN, DRY KILN LOADER LAB MOLECULAR DIAGNOSTICS O RDERABLES Performing Organization Address City/State/ZIP Code Phon e Number [facility] see result attachment for specific address documented in this encounter Visit Diagnoses Diagnosis Screening examination for infectious dis ease Screening examination for unspecified in fectious disease documented in this encounter Additional Health Concerns Infection Onset Date Last Indicated Resolved Time COVID-19 Rule Out 02/18/2020 02/18/2020 02/18/2020 4:4 1 PM HADOOP DEVELOPER documented as of this encounter Care Teams Disc Ruler Operator Relationship Specialty Start Date End Date Roopa Lopez MD PCP - General Family Medicine 07/15/19 02/26/[address] [place] [address] documented as of this encounter
--- OUTSIDE RECORDS SUMMARY | 2021-10-22 11:46 | XMS_ITS | Encounter Summary ---
:1970 Author Organization [facility] Address [address] [place] [address] Care Team Providers Name Role Phone Roopa Lopez MD Primary Care Provider Encounter Details Date Type Department Care Team Description 10/14/2019 Lab Rogelio Guerrero Postablative hypothyroidism [address] [place], [place] [address] Social History Tobacco Use [...] Date/Time Associated Diagnosis Comme nts TSH Routine 10/14/2019 8:03 AM Postablative Results f or this CDT hypothyroidism procedure are in the results section. T4, FREE Routine 10/14/2019 8:03 AM Postablative Results f or this CDT hypothyroidism procedure are in the results section. documented in this encounter Results TSH (10/14/2019 8:03 AM CDT) P athologist Signature TSH, Sensitive 2.70 0.46 - [...] MD LAB BLOOD ORDERABLES Performing Organization Address [facility] Code Phon e Number [facility] [address] [place] [phone] T4, free (10/14/2019 8:03 AM CDT) P athologist Signature Free T4 1.19 0.78 - 2.19 10/14/2019 [facility] ng/dL 3:54 PM CDT CENTER LAB[facility]ATORY Comment: [...] MD LAB BLOOD ORDERABLES Performing Organization Address [facility] Phon e Number [facility] [address] [place] [phone] documented in this encounter Visit Diagnoses Diagnosis Postablative hypothyroidism Other postablative hypothyroidism documented in this encounter Care Teams Roofer Metal Relationship Specialty Start Date End Date Roopa Lopez MD PCP - General Family Medicine 07/15/19 02/26/21 [address] [facility] [address] [place] [address] documented as of this encounter
--- OUTSIDE RECORDS SUMMARY | 2021-10-22 11:46 | XMS_ITS | Encounter Summary ---
:1970 Author Organization [facility] Address [address] [place] [address] Care Team Providers Name Role Phone Roopa Lopez MD Primary Care Provider Encounter Details Date Type Department Care Team Description 10/18/2019 Lab [facility] Edema, unspecified type [address] [place] [address] Social History Tobacco Use Types [...] Date/Time Associated Diagnosis Comme nts GLOMERULAR Routine 10/18/2019 11:08 Edema, unspecified Resul ts for this FILTRATION RATE AM CDT type procedure ar e in the results section. BASIC METABOLIC Routine 10/18/2019 11:08 Edema, unspecified Re sults for this PANEL AM CDT type procedure are i n the results section. documented in this encounter Results Glomerular filtration rate (GFR) (10/18/2019 11:08 AM CDT) P athologist Signature GFR >60 10/18/2019 [facility] 3:22 PM CDT CENTER LABORATORY >60 10/18/2019 [facility] Romanian GFR 3:22 PM [facility] Comment: GFR calculated from serum creatinine v alue Chronic Kidney Disease less than 60 mL/m in/1.73 m2 Kidney Failure less than 15 mL/min/1.73 m2 Note: effective 07/23/06 IDMS-Traceable MDRD Study Equation used. Specimen Anatomical Collection Method Collection Time Receive d Time (Source) Location / / Volume Laterality 10/18/2019 11:08 10/18/2019 AM CDT 11:08 AM CDT Valerie Major MD LAB BLOOD ORDERABLES Performing Organization Address City/State/ZIP Code Phon e Number [facility] [address] [place] [phone] (ABNORMAL) Basic metabolic panel (10/18/2019 11:08 AM CDT) Analysis Performed At Patho logist Time Signature Sodium 138 135 - 145 10/18/2019 [place] mEq/L 3:22 PM [facility] Potassium 3.6 3.5 - 5.1 10/18/2019 [place] mEq/L 3:22 PM [facility] Chloride 103 98 - 107 10/18/2019 [place] mEq/L 3:22 PM [facility] CO2 26 22 - 29 10/18/2019 [place] mmol/L 3:22 PM [facility] Creatinine 0.7 0.4 - 1.2 10/18/2019 [place] mg/dL 3:22 PM [facility] BUN 14 5 - 25 10/18/2019 [place] mg/dL 3:22 PM [facility] Glucose 105 (H) 70 - 100 10/18/2019 [place] mg/dL 3:22 PM [facility] Calcium, 9.2 8.4 - 10.2 10/18/2019 [place] Total,S mg/dL 3:22 PM [facility] Fasting? No 10/18/2019 [place] 11:08 AM [facility] Specimen Anatomical Collection Method Collection Time Receive d Time (Source) Location / / Volume Laterality Blood 10/18/2019 11:08 10/18/2019 2:17 AM CDT PM CDT Valerie Major MD LAB BLOOD ORDERABLES Performing Organization Address City/State/ZIP Code Phon e Number [facility] [address] [place] [address] documented in this encounter Visit Diagnoses Diagnosis Edema, unspecified type documented in this encounter Care Teams Endocrinology Specialist Relationship Specialty Start Date End Date Roopa Lopez MD PCP - General Family Medicine 07/15/19 02/26/[address] [place] [address] documented as of this encounter
--- OUTSIDE RECORDS SUMMARY | 2021-10-22 11:46 | XMS_ITS | Encounter Summary ---
:1970 Author Organization [facility] Address [address] [place] [address] Care Team Providers Name Role Phone Roopa Lopez MD Primary Care Provider Encounter Details Date Type Department Care Team Description 03/27/2020 Lab Robert Guerrero Postablative hypothyroidism [address] [place], [place] [address] Social History Tobacco Use [...] Date/Time Associated Diagnosis Comme nts TSH Routine 03/27/2020 9:58 AM Postablative Results f or this [facility] hypothyroidism procedure are in the results section. T4, FREE Routine 03/27/2020 9:58 AM Postablative Results f or this [employer] [employer] hypothyroidism procedure are in the results section. documented in this encounter Results TSH (03/27/2020 9:58 AM [facility]) P athologist Signature TSH, Sensitive 0.87 0.46 - 03/28/2020 [facility] 4.68 mIU/L 3:06 PM [facility] Comment: The results from this [...] Volume Laterality Blood 03/27/2020 9:58 AM 1:18 [facility] PM [facility] Valerie Major MD LAB BLOOD ORDERABLES Performing Organization Address [facility] Code Phon e Number [facility] [address] [place] [phone] T4, free (03/27/2020 9:58 AM CASING [place]W) P athologist Signature Free T4 1.17 0.78 - 2.19 03/28/2020 [facility] ng/dL 2:36 PM [facility] Comment: The results from this [...] Volume Laterality Blood 03/27/2020 9:58 AM 1:18 [place] PM [facility] Valerie Major MD LAB BLOOD ORDERABLES Performing Organization Address [facility] Phon e Number [facility] [address] [place] [phone] documented in this encounter Visit Diagnoses Diagnosis Postablative hypothyroidism Other postablative hypothyroidism documented in this encounter Care Teams Supervisor Fertilizer Relationship Specialty Start Date End Date Roopa Lopez MD PCP - General Family Medicine 07/15/19 02/26/21 [address] [facility] [address] [place] [address] documented as of this encounter
--- OUTSIDE RECORDS SUMMARY | 2021-10-22 11:46 | XMS_ITS | Encounter Summary ---
:1970 Author Organization [facility] Address [address] [place] [address] Care Team Providers Name Role Phone Roopa Lopez MD Primary Care Provider Reason for Visit Reason Onset Date Comments Covid Triage 02/18/2020 Encounter Details Date Type Department Care Team Description 02/18/2020 Telephone [facility] Jeyson Keating APRN, Covid Triage [address] [facility] [address] [place], [place] [address] [place] [address] [phone] [address] (Wo rk) Social History Tobacco Use Types [...] documented as of this encounter Progress Notes Jeyson Keating APRN, SHIPPING TECHNICIAN - 02/18/2020 7:50 AM CST 02/18/20 0700 COVID Algorithm Question A - Patient has the following symptoms: Headache;Nasal congestion;Fatigue;Muscle pain Date of onset of symptoms 02/16/20 Acuity evaluation - patient has the following symptoms: None Question B - Patient belongs to a high risk group: Healthcare professional;Has chronic health condition Question C - Patient has the following special indications Employee/Employer requesting surveillance Question D - Patient has close contact with confirmed COVID case: Yes Any positive indication in any question? Yes - proceed with COVID screening and education Last exposure: 02/16/2020 Patient instructed to report to the screening station for testing and then home. Patient instructed to remain home until: ??? Notified of results AND If symptomatic: ??? No fever for at least 24 hours (one full day without fever without the use of fever reducers AND ??? Other symptoms have improved Patient instructed that if they want to be seen by a provider for their symptoms, they can request atelehealth visit when calling to schedule. IAC EXERCISE SPECIALIST documented in this encounter Plan of Treatment Not on filedocumented as of this encounter Results SARS Coronavirus 2 RNA detection, v (02/18/2020 7:58 AM CARDIAC EXERCISE SPECIALIST) [facility] Method Time Signature SARS Covid Nasopharyngeal 02/18/2020 [facility] specimen 4:41 PM CARDIAC EXERCISE SPECIALIST LABORATORIES source Patient Race White 02/18/2020 [facility] 4:41 PM CARDIAC EXERCISE SPECIALIST LABORATORIES Patient DECLINE 02/18/2020 [facility] Ethnicity 4:41 PM CARDIAC EXERCISE SPECIALIST LABORATORIES SARS CoV2 Undetected Undetected 02/18/2020 [facility] RNA 4:41 PM CARDIAC EXERCISE SPECIALIST LABORATORIES Comment: SARS-CoV-2 RNA absent. This result does not rule out COVID-19 in the patient, as the sensitiv ity of the test depends on the timing of the specimen co llection and the quality of the specimen. Result should b e correlated with patient's history and clinical presentat ion. Method - 02/18/2020 4:41 PM CARDIAC EXERCISE SPECIALIST [facility] DICAL [facility] Comment: THFSH- This test uses the TaqPath COVID- 19 Combo Kit ([employer].) and is performed on the [employer] magnetic particle processor and [employer] Fast Dx Real-Time PCR System. It has rec eived Emergency Use Authorization (EUA) by the U.S. Food and Drug Administration. Performance characterist ics were verified by [facility] in a manner consistent wi CLIA requirements. Fact sheets for this Emergency Use Autho rization (EUA) can be found at the following links: https://www.fda.gov/media/822142/downloa d for Healthcare Providers https://www.fda.gov/media/401750/downloa d for Patients Test Performed by: [facility] [address] [place] [address] 94 Shot Coat Tender: Butch Guerrero M.D. Ph. D.; [facility]# [id number] Specimen Anatomical Collection Method Collection Time Receive d Time (Source) Location / / Volume Laterality Swab 02/18/2020 7:58 AM 0 9:28 (Nasopharyngeal) CARDIAC EXERCISE SPECIALIST AM CARDIAC EXERCISE SPECIALIST Lina Goldstein APRN, SHIPPING TECHNICIAN LAB MOLECULAR DIAGNOSTICS O RDERABLES Performing Organization Address City/State/ZIP Code Phon e Number [facility] see result attachment for specific address documented in this encounter Visit Diagnoses Diagnosis Screening examination for infectious dis ease - Primary Screening examination for unspecified in fectious disease documented in this encounter Care Teams Water Plant Pump Operator Supervisor Relationship Specialty Start Date End Date Roopa Lopez MD PCP - General Family Medicine 07/15/19 02/26/[address] [place] [address] documented as of this encounter
--- OUTSIDE RECORDS SUMMARY | 2021-10-22 11:46 | XMS_ITS | Encounter Summary ---
:1970 Author Organization [facility] Address [address] [place] [address] Care Team Providers Name Role Phone Roopa Lopez MD Primary Care Provider Reason for Visit Reason Onset Date Comments Lab request 02/14/2020 Encounter Details Date Type Department Care Team Description 02/14/2020 Telephone SE Endocrinology [place] [address] Social History Tobacco Use Types Packs/Day Years [...] Encounter - Jo Ann Anaya MA - 02/14/2020 3:05 PM CST Patient informed of above message and verbalized an understanding. INSPECTOR Telephone Encounter - Valerie Major MD - 02/14/2020 12:10 PM CST Check TSH and FT4 now. Order placed. INSPECTOR Telephone Encounter - Jo Ann Anaya MA - 02/14/2020 10:46 AM CST Patient called and is wondering about get her labs done early. She states that she is extremely fatigue and slept about 14-16 hours a day this weekend, body aches, itching, and brain fog. Patient did go for COVID testing to rule this out and she was negative. Please advise if she can go in for labs. INSPECTOR documented in this encounter Plan of Treatment Not on filedocumented as of this encounter Results TSH (02/14/2020 4:01 PM MEAT INSPECTOR) athologist Signature TSH, Sensitive 0.93 0.46 - 02/15/2020 [facility] 4.68 mIU/L 3:36 PM MEAT INSPECTOR [facility] Comment: The results from this [...] Laterality Blood 02/14/2020 4:01 PM 0 2:29 MEAT INSPECTOR PM MEAT INSPECTOR Valerie Major MD LAB BLOOD ORDERABLES Performing Organization Address City/State/ZIP Code Phon e Number [facility] [address] [place] [address] T4, free (02/14/2020 4:01 PM MEAT INSPECTOR) athologist Signature Free T4 1.07 0.78 - 2.19 02/15/2020 [facility] ng/dL 3:25 PM MEAT INSPECTOR [facility] Comment: The results from this [...] Laterality Blood 02/14/2020 4:01 PM 0 2:29 MEAT INSPECTOR PM MEAT INSPECTOR Valerie Major MD LAB BLOOD ORDERABLES Performing Organization Address City/State/ZIP Code Phon e Number [facility] [address] [place] [address] documented in this encounter Visit Diagnoses Diagnosis Postablative hypothyroidism - Primary Other postablative hypothyroidism documented in this encounter Care Teams Milanese Knitting Machine Operator Relationship Specialty Start Date End Date Roopa Lopez MD PCP - General Family Medicine 07/15/19 02/26/[address] [place] [address] documented as of this encounter
--- OUTSIDE RECORDS SUMMARY | 2021-10-22 11:46 | XMS_ITS | Encounter Summary ---
:1970 Author Organization [facility] Address [address] [place] [address] Care Team Providers Name Role Phone Roopa Lopez MD Primary Care Provider Reason for Visit Reason Comments joint pain on going swelling bilateral lower extremities Shortness of Breath multiple symptoms- emotional, tired, shaking, b rain fog, blurry vision, increased urination, weight gain, swelling, ring finger, right eye Depression Encounter Details Date Type Department Care Team Description 09/08/2019 Office Visit Roopa Caldwell Graves disease (Primary Dx); [address] MD Raheel Myalgia; [place], [place] [address] [address] Arthralgia, unspecified join t; [phone] [place] Fluid retention; [place], [place] Glucose int olerance [phone] Social History Tobacco Use Types Packs/Day Years [...] / COVID-19? documented as of this encounter Last Filed Vital Signs Vital Sign Reading Time Taken Comments Blood Pressure 132/72 09/08/2019 2:27 PM CDT Pulse 68 09/08/2019 2:27 PM CDT Temperature 36.9 ??C (98.4 ??F) 09/08/2019 2:27 PM CDT Respiratory Rate 16 09/08/2019 2:27 PM CDT Oxygen Saturation 93% 09/08/2019 2:27 PM CDT Inhaled Oxygen Concentration - - Weight 88.3 kg (194 lb 10.7 oz) 09/08/2019 2:27 PM CDT Height 174.8 cm (5' 8.82) 09/08/2019 2:27 PM CDT Body Mass Index 28.9 09/08/2019 2:27 PM CDT documented in this encounter Progress Notes Roopa Lopez MD - 09/08/2019 2:20 PM CDT Estab Patient Visit Subjective Patient ID: Laura Novak is a 49 y.o. female. HPI the patient is here today to review laboratory testing recent history of diagnosis of Graves' disease recent history of elevated fasting blood sugar along with fluid retention joint pain muscle aches having emotions are getting up and down fatigue and at times what she describes as a brain fog difficulty concentrating. Is important to note the patient been recently discovered to have Graves' disease with a suppressed TSH and elevated T3-T4 and thyrotropin antibody testing. She has seen [facility] non destructive evaluation manager Dr. Major and she has received in the last I believe 4 weeks or so a modest dose of radioactive iodine to try to suppress her thyroid functions not necessarily kill entirely her thyroid. However she has not felt better since she has had this initiated though some of her tests or studies in particular the T3-T4 levels have come down her TSH itself is still markedly suppressed and this will just take time. We did discuss with the patient that if this continues to be an issue is that this can take time that her thyroid will go up and come down and then she will have more problems and or issues that at some point in time it may be necessary for her just to receive a dose of radioactive iodine that will actually kill her thyroid and then should go on supplementation. She did state that the only way that she is kind of feeling better recently she is no longer having any cardiac palpitations. It was noted that on the particular test recently that her blood sugar was elevated fasting 118 willrecheck that the next time she has her thyroid test drawn. She is also noted fluid retention of close to maybe 15+ pounds settling in her feet. She had been given a prescription for Lasix from Dr Ventura she has not picked it up yet and we have encouraged her to do so I suspect that her fluid retention is primarily secondary to fluid retention not weight gain from calories. She has however noted that this fluid retention has happened just since she is received the radioactive iodine and she has been eating a little bit more as well. She also recently went off of her Zoloft as she was not certain that she wanted to continue to take it however at this point in time because of the mood changes and her emotional change I did feel it be reasonable to have her restart her Zoloft at the 50 mg/day level and we will probably go up to 75 mg in a period of time She has also been noticing in the last year or so that she has been having a fair amount of joint pain muscle aches and so forth without other symptoms other than achiness stiffness and so forth. Her laboratory test in regard to that have all been normal including sed rate CRP rheumatoid factor and testing cyclic citrulline peptide antibody test. It is possible she could still have some type of underlying arthritic condition and we have offered to refer her to rheumatology she works up I believe [facility] she is going to get the name or the group of lockstitch collar setter and we will refer her to them for evaluation. In the meantime we did offer her a round of prednisone as the best way to treat her underlying pain however given her somewhat elevated blood sugar given her fluid retention she did not want to start at this time and she finds that taking 2 Aleve at one time actually helps about 50% her aches and pains as such we will have her increase that to twice a day and hopefully she will get a better than 50% response overall. I did tell the patient it is possible that her underlying thyroid condition where her hormones are fluctuating could be partially responsible for a good part of her symptoms and that is possible rheumatology will not come up with anything more specific but will make the referral to get another opinion. 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 Counseled time was 25 minutes and all 25 minutes was in regard to review of her symptoms review overhistory review laboratory testing and coordination of cares. documented in this encounter Plan of Treatment Not on filedocumented as of this encounter Results Glucose, fasting (09/24/2019 8:07 AM CDT) athologist Signature Glucose 97 70 - 100 09/24/2019 [facility] mg/dL 1:51 PM CDT [facility] Specimen Anatomical Collection Method Collection Time Receive d Time (Source) Location / / Volume Laterality Blood (Blood, 09/24/2019 8:07 AM 09/24/19 20 Venous) CDT 12:51 PM CDT Roopa Lopez MD LAB BLOOD ORDERABLES Performing Organization Address City/State/ZIP Code Phon e Number [facility] [address] [place] [address] documented in this encounter Visit Diagnoses Diagnosis Graves disease - Primary Toxic diffuse goiter without mention of thyrotoxic crisis or storm Myalgia Unspecified myalgia and myositis Arthralgia, unspecified joint Fluid retention Fluid overload Glucose intolerance documented in this encounter Care Teams Prevention Rn Relationship Specialty Start Date End Date Roopa Lopez MD PCP - General Family Medicine 07/15/19 02/26/[address] [place] [address] documented as of this encounter
--- OUTSIDE RECORDS SUMMARY | 2021-10-22 11:47 | XMS_ITS | Encounter Summary ---
:1970 Author Organization [facility] Address [address] [place] [address] Care Team Providers Name Role Phone Tiffanie Mcgovern APRN, KYLE Primary Care Provider [phone] Encounter Details Date Type Department Care Team Description 06/22/2019 Orders Only Levi Godoy MD [address] [place] [address] Social History Tobacco Use Types Packs/Day Years Used Date Current Some Day Smoker Smokeless Tobacco: Never Used Alcohol Use Standard [...] been in contact with No / Unsure 06/16/2019 8:43 AM CDT someone who was confirmed or suspected to have Coronavirus / COVID-19? documented as of this encounter Plan of Treatment Not on filedocumented as of this encounter Visit Diagnoses Not on filedocumented in this encounter Care Teams Manager Home Healthcare Relationship Specialty Start Date End Date Tiffanie Mcgovern APRN, VIROLOGIST PCP - General 10/14/17 07/14/19 [address] [facility] [place] [address] documented as of this encounter
--- OUTSIDE RECORDS SUMMARY | 2021-10-22 11:47 | XMS_ITS | Encounter Summary ---
:1970 Author Organization [facility] Address [address] [place] [address] Care Team Providers Name Role Phone Roopa Lopez MD Primary Care Provider Reason for Visit Reason Comments Hyperthyroidism Encounter Details Date Type Department Care Team Description 08/12/2019 [facility] Endocrinology [place], Graves disease (Primary Dx); [address] [facility] MD Valerie [place]ema, [place] [address] Social History Tobacco Use Types [...] / COVID-19? documented as of this encounter Patient Instructions Patient InstructionsValerie Major MD - 08/12/2019 8:30 AM CDT 1. Start Lasix 20 mg daily. If too much urination can cut down to 1/2 tablet daily 2. Raise your feet above the level of heart for 30 minutes twice a day 3. Blood work in 1 week, 09/02/19 and 09/22/19 4. Walk as much as possible. Start doing some arm and leg muscle strengthening exercises documented in this encounter Progress Notes Valerie Major MD - 08/12/2019 8:30 AM CDT Estab Patient Telehealth Primary Care Provider: Roopa Lopez MD Chief Complaint: Follow-up of Graves' disease Subjective Patient ID: Laura Novak is a 48 y.o. female. HPI Patient presented for initial consultation on 07/02/2019 with completely suppressed TSH with elevatedfree T4 and free T3 of 3.30 (0.78-2.19) and 7 (2.8- 4.4) and thyrotropin receptor antibody of 2.76 (0-1.75). Her presenting symptoms include fatigue and generalized achiness since April 2019 and symptoms of palpitations, shakiness and sense of pressure in her throat for 1 month. She was initially started on methimazole but opted for radioiodine treatment and methimazole was discontinued on 07/10/2019. She subsequently underwent radioiodine treatment with 14 MCI of I-131 on 07/21/2019. Does have more energy. Still feels short of breath with activity-same. Lower extremity swelling has worsened. No orthopnea. Tremors have improved. Less palpitations. Joint pains have improved but stillpresent. BM-2-5/day, consistency varies, Mood-does have some anxiety. Working from home. SOCIAL HISTORY: . Lives with her . Has 2 children age 21 and 17. 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 Review of systems: As in HPI. All other systems negative. LAB RESULTS Recent Results (from the past 336 hour(s)) T3 Collection Time: 08/10/19 8:30 AM Result Value Ref Range T3, Total 3.16 (H) 0.97 - 1.69 ng/mL TSH Collection Time: 08/10/19 8:30 AM Result Value Ref Range TSH, Sensitive <0.01 (L) 0.46 - 4.68 mIU/L T4, free Collection Time: 08/10/19 8:30 AM Result Value Ref Range Free T4 2.63 (H) 0.78 - 2.19 ng/dL Outpatient Encounter Medications as of 08/12/2019 Medication Sig Dispense Refill ??? Bacillus Coagulans-Inulin (PROBIOTIC-PREBIOTIC PO) Take 1-2 each by mouth 1 (one) time each day Chewables ??? LORazepam (ATIVAN) 1 MG tablet Take 1 mg by mouth if needed ??? Multiple Vitamins-Minerals (MULTIVITAMIN WOMEN PO) Take 1 tablet by mouth 1 (one) time each day ??? simvastatin (ZOCOR) 20 MG tablet TAKE ONE TABLET BY MOUTH AT BEDTIME 90 tablet 2 ??? verapamil ER (VERELAN) 240 MG 24 hr capsule Take one a day for heart 90 capsule 3 ??? amoxicillin (AMOXIL) 875 MG tablet Take one twice a day for 10 days. Take with food. (Patient not taking: Reported on 08/12/2019) 20 tablet 1 ??? sertraline (ZOLOFT) 50 MG tablet Take ONE a day in the AM for anxiety/depression (Patient not taking: Reported on 08/12/2019) 90 tablet 1 ??? traMADol (ULTRAM) 50 MG tablet May take 1-2 every 6 hours if needed for acute dental pain limit 24 hours or 42/week. (Patient not taking: Reported on 08/12/2019) 42 tablet 1 ??? traZODone (DESYREL) 50 MG tablet Take 1 tablet (50 mg total) by mouth every night 1 to 2 nightly(Patient not taking: Reported on 08/12/2019) 90 tablet 3 ??? [DISCONTINUED] omeprazole (PriLOSEC) [address] capsule Take 1 capsule by mouth if needed No facility-administered encounter medications on file as of 08/12/2019. Allergies as of 08/12/2019 - Reviewed 08/12/2019 Allergen Reaction Noted ??? Morphine Nausea And Vomiting 07/13/2010 ??? Oxycodone-acetaminophen Hives and Itching 07/13/2010 Objective Visit Vitals Smoking Status Former Smoker Physical Exam General-appears well, no apparent distress Assessment/Plan Diagnoses and all orders for this visit: Graves disease - T4, free; Future - TSH; Future - T4, free; Future - TSH; Future - T3; Future Edema, unspecified type - furosemide (Lasix) 20 MG tablet; Take 1 tablet (20 mg total) by mouth 1 (one) time each day - Basic metabolic panel; Future S/p radioiodine treatment with 14 MCI of I-131 on 07/21/2019 1. There is noted to be mild decrease in degree of hyperthyroidism. We will continue to monitor closely for transition post radioiodine treatment. 2. With significant complaints of edema, recommended Lasix 20 mg daily. Will recheck basic metabolicpanel in 1 week. She understands to elevate her feet above the level of heart 30 minutes twice a day. 3. If edema and shortness of breath continues to be a significant concern, echocardiogram will be considered at follow-up. 4. During this transition I discussed about challenges with endurance and weight and to start engaging in some walking and seated arm and leg mild muscle strengthening exercises as able. She understands to also be cognitive of her diet and prevent weight gain. 5. She will have recheck thyroid labs in 3 weeks and return for follow-up visit in 6 weeks with repeat thyroid labs. Patient understands and agrees with the above plan. I have spent 20 minutes in patient care and greater then 50% of the time spent in counseling on evaluation, management and plan of her endocrine issues. documented in this encounter Plan of Treatment Not on filedocumented as of this encounter Results (ABNORMAL) T3 (09/24/2019 8:07 AM CDT) P athologist Signature T3, Total 0.74 (L) 0.97 - 1.69 09/24/2019 [facility] ng/mL 2:04 PM CDT [facility] Comment: [...] MD LAB BLOOD ORDERABLES Performing Organization Address City/[facility]/ZIP Code Phon e Number [facility] [address] [place] [phone] (ABNORMAL) TSH (09/24/2019 8:07 AM CDT) Patholo gist Method Time Signature TSH, Sensitive 15.70 (H) 0.46 - 09/24/2019 [facility] 4.68 mIU/L 2:04 PM CDT [facility] Comment: The results from this [...] MD LAB BLOOD ORDERABLES Performing Organization Address [facility] Code Phon e Number [facility] [address] [place] [phone] (ABNORMAL) T4, free (09/24/2019 8:07 AM CDT) P athologist Signature Free T4 0.16 (L) 0.78 - 2.19 09/24/2019 [facility] ng/dL 1:52 PM CDT CENTER [...] MD LAB BLOOD ORDERABLES Performing Organization Address City/[facility]/ZIP Code Phon e Number [facility] [address] [place] [address] (ABNORMAL) TSH (09/02/2019 9:17 AM CDT) Patholo gist Method Time Signature TSH, Sensitive <0.01 (L) 0.46 - 09/03/2019 [facility] 4.68 mIU/L 2:50 PM CDT [facility] Comment: The [...] MD LAB BLOOD ORDERABLES Performing Organization Address City/[facility]/ZIP Code Phon e Number [facility] [address] [place] [address] T4, free (09/02/2019 9:17 AM CDT) P athologist Signature Free T4 1.84 0.78 - 2.19 09/03/2019 [facility] ng/dL 2:34 PM CDT [facility] Comment: The results [...] Organization Address City/State/ZIP Code Phon e Number [facility] [address] [place] [phone] (ABNORMAL) Basic metabolic panel (09/02/2019 9:17 AM CDT) Analysis Performed At Patho logist Time Signature Sodium 138 135 - 145 09/02/2019 [facility] mEq/L 1:07 PM [facility] Potassium 3.7 3.5 - 5.1 09/02/2019 [facility] mEq/L 1:07 PM [facility] Chloride 105 98 - 107 09/02/2019 [facility] mEq/L 1:07 PM [facility] CO2 24 22 - 29 09/02/2019 [facility] mmol/L 1:07 PM [facility] Creatinine 0.5 0.4 - 1.2 09/02/2019 [facility] mg/dL 1:07 PM [facility] BUN 14 5 - 25 09/02/2019 [facility] mg/dL 1:07 PM [facility] Glucose 119 (H) 70 - 100 09/02/2019 [facility] mg/dL 1:07 PM [facility] Calcium, 9.8 8.4 - 10.2 09/02/2019 [facility] Total,S mg/dL 1:07 PM [facility] Fasting? Yes 09/02/2019 C JONES 9:20 AM CDT [facility] Specimen Anatomical Collection Method Collection Time Receive d Time (Source) Location / / Volume Laterality Blood 09/02/2019 9:17 AM 0 1:07 CDT PM CDT Valerie Major MD LAB BLOOD ORDERABLES Performing Organization Address City/State/ZIP Code Phon e Number [facility] [place] [place] [address] [place] [address] [facility] [address] [place] [address] LABORATORY documented in this encounter Visit Diagnoses Diagnosis Graves disease - Primary Toxic diffuse goiter without mention of thyrotoxic crisis or storm Edema, unspecified type documented in this encounter Care Teams Sign Builder Supervisor Relationship Specialty Start Date End Date Roopa Lopez MD PCP - General Family Medicine 07/15/19 02/26/[address] [place] [address] documented as of this encounter
--- OUTSIDE RECORDS SUMMARY | 2021-10-22 11:47 | XMS_ITS | Encounter Summary ---
:1970 Author Organization [facility] Address [address] [place] [address] Care Team Providers Name Role Phone Roopa Lopez MD Primary Care Provider Encounter Details Date Type Department Care Team Description 07/15/2019 Orders Only Roopa Caldwell Pain, dental (Primary [address] MD Raheel Dx) [place], [place] [address] [facility] [address] [place] [address] Social History Tobacco Use Types Packs/Day Years [...] as of this encounter Visit Diagnoses Diagnosis Pain, dental - Primary documented in this encounter Care Teams Package Collector Relationship Specialty Start Date End Date Roopa Lopez MD PCP - General Family Medicine 07/15/19 02/26/[address] [place] [address] documented as of this encounter
--- OUTSIDE RECORDS SUMMARY | 2021-10-22 11:47 | XMS_ITS | Encounter Summary ---
:1970 Author Organization [facility] Address [address] [place] [address] Care Team Providers Name Role Phone Tiffanie Mcgovern APRN, KYLE Primary Care Provider [phone] Reason for Referral Hospital - Outpatient (Routine) - Closed Specialty Diagnoses / Procedures Referred By Contact Refer red To Contact Radiology Diagnoses Valerie Major MD Nuclear Medicine Procedures Nuclear medicine thyroid uptake with scan single [address] [facility] [address] [place] [address] [place] [address] Phone: Fax: Referral ID Status Reason Start Date Expiration Date Visits Requ ested Visits Authorized [id number] Closed 07/12/2019 01/08/2020 1 1 Encounter Details Date Type Department Care Team Description 07/12/2019 Orders Only SE Endocrinology Valerie Major MD [address] [place] [address] Social History Tobacco Use Types [...] Name Priority Date/Time Associated Diagnosis Comme nts NM THYROID UPTAKE Routine 07/16/2019 11:42 AM Res ults for this WITH SCAN SINGLE CDT procedure a re in the results section. documented in this encounter Results Nuclear medicine thyroid uptake with scan single (07/16/2019 11:42 AM CDT) Anatomical Region Laterality Modality Head and Neck Nuclear Medicine Specimen (Source) Anatomical Collection Method Collection Time Re ceived Time Location / / Volume Laterality 07/16/2019 11:42 AM CDT Impressions 07/16/2019 11:50 AM CDT IMPRESSION: Total thyroid uptake at 24 hours is elev ated, measuring 50.9%. ??In the setting of a low or undetectable TSH lev el, an elevated total thyroid uptake at 24 hours can be seen in patien ts with Graves' disease. Please correlate with laboratory findings. Narrative 07/16/2019 11:50 AM CDT INDICATION: For evaluation of hyperthyroidism and to assist with dose calculation for radioiodine treatment COMPARISON: None. TECHNIQUE: Anterior and oblique planar images of th e thyroid gland were obtained. FINDINGS: There is uniform distribution of the rad iotracer diffusely throughout the thyroid gland. ??No abnormal focal areas of increased radiotracer uptake or photopenia to suggest cold nodule or hyp erfunctioning nodule. Thyroid uptake: RIGHT LOBE: 28% LEFT LOBE: 24% TOTAL: 50.9% Note: Thyroid Uptake normal range is 10- 35 % at 24 hours. Procedure Note Yuan Reardon MD - 07/16/2019 INDICATION: For evaluation of hyperthyroidism and to assist with dose calculation for radioiodine treatment COMPARISON: None. TECHNIQUE: Anterior and oblique planar images of th e thyroid gland were obtained. FINDINGS: There is uniform distribution of the rad iotracer diffusely throughout the thyroid gland. No abnormal focal areas o f increased radiotracer uptake or photopenia to suggest cold nodule or hyp erfunctioning nodule. Thyroid uptake: RIGHT LOBE: 28% LEFT LOBE: 24% TOTAL: 50.9% Note: Thyroid Uptake normal range is 10- 35 % at 24 hours. IMPRESSION: Total thyroid uptake at 24 hours is elev ated, measuring 50.9%. In the setting of a low or undetectable TSH lev el, an elevated total thyroid uptake at 24 hours can be seen in patien ts with Graves' disease. Please correlate with laboratory findings. Valerie Major MD IMG NM PROCEDURES documented in this encounter Visit Diagnoses Not on filedocumented in this encounter Care Teams Communications Professor Relationship Specialty Start Date End Date Tiffnaie Mcgovern, COOK ROAST, AVIONICS ENGINEER PCP - General 10/14/17 07/14/19 [address] [place] [address] documented as of this encounter
--- OUTSIDE RECORDS SUMMARY | 2021-10-22 11:47 | XMS_ITS | Encounter Summary ---
:1970 Author Organization [facility] Address [address] [place] [address] Care Team Providers Name Role Phone Tiffanie Mcgovern APRN, KYLE Primary Care Provider [phone] Reason for Referral Consultation (Routine) - Closed Specialty Diagnoses / Procedures Referred By Contact Refer red To Contact Endocrinology Diagnoses Hyperthyroidism Roopa Gupta MD [address] [place] [address] Referral ID Status Reason Start Date Expiration Date Visits V isits Requested Authorized [id number] Closed Specialty 06/29/2019 06/28/2020 1 1 Services Required Scheduling Instructions We are referring Laura to Dr. Ventura for evaluation of abnormal thyroid testing. We genaro blood yesterday and will be sent out today with results probably by 06/30. Please place Laura on Dr. Brandon fernandes's schedule for a phone consult on Friday to discuss lab results and to decide furthe r possible treatment options. If Dr. Ventura feels that an in person evalua tion is more appropriate patient would be willing to drive [place] [facility] Encounter Details Date Type Department Care Team Description 06/28/2019 Telephone Endocrinology Valerie Major MD [address] [place], [place] [address] Social History Tobacco Use Types Packs/Day Years [...] / COVID-19? documented as of this encounter Miscellaneous Notes Telephone Encounter - Valerie Major MD - 06/29/2019 2:[address] Gupta, patient is scheduled to see me on Friday. Thanks much for reaching out to us and the updates. Addendum Note - Roopa Gupta MD - 06/29/2019 7:44 AM CDT Addended by: Roopa GUPTA on: 06/29/2019 07:44 AM Modules accepted: Orders Telephone Encounter - Valerie Major MD - 06/28/2019 2:[address] Gupta, Tried reaching your office currently but unable to. See that she is moderately hyperthyroid. 2 additional lab tests needed-total T3 and thyrotropin receptor antibody. We can see her GRAYSON in person or via telehealth visit in endocrine. Please let us know so we can arrange. Thanks, Valerie Og nurse, JEWEL Telephone Encounter - Jo Ann Anaya MA - 06/28/2019 1:41 PM CDT Please review Dr. Gupta's note. Telephone Encounter - Cristiano Stratton - 06/28/2019 1:[address] Gupta called from [facility] wanting to know what would be needed for labs to be seen in Endocrinology. Please give him a call if need to discuss anything at all. documented in this encounter Plan of Treatment Scheduled Referrals Name Type Priority Associated Diagnoses Order S [facility] Ambulatory referral Outpatient Routine Hyperthyroidism Order ed: to Endocrinology Referral 06/29/2019 documented as of this encounter Results (ABNORMAL) Thyrotropin receptor antibody (06/28/2019 3:58 PM CDT) [facility] Method Time Signature Thyrotropin 2.76 (H) 0.00 - 06/29/2019 [facility] Receptor Ab 1.75 IU/L 7:45 PM CDT LABORATORIES Comment: ADDITIONAL INFORMATIO N At a decision limit of 1.75 IU/L, this a ssay has 97% sensitivity and 99% specificity for detection of Graves' disease. In healthy individuals and in patients with thyroid disease without diagnosis of Graves' disease, th e upper limit of anti-TSHR values are 1.22 IU/L and 1.58 IU/L, respectively (97.5th percenti les). Test Performed by: [facility] [address] [place] [address] Freight Weigher: Butch Guerrero M.D. Ph. D.; CLIA# [id number] Specimen Anatomical Collection Method Collection Time Receive d Time (Source) Location / / Volume Laterality Blood (Blood, 06/28/2019 3:58 PM 06/29/19 1:58 Venous) CDT PM CDT D. Raheel Gupta MD LAB BLOOD ORDERABLES Performing Organization Address City/State/ZIP Code Phon e Number [facility] see result attachment for specific address (ABNORMAL) T3, free (06/28/2019 3:58 PM CDT) P athologist Signature T3, Free 7.0 (H) 2.8 - 4.4 06/29/2019 [facility] pg/mL 7:51 PM CDT LABORATORIES Comment: Test Performed by: [facility] [address] [place] [address] Freight Weigher: Butch Guerrero M.D. Ph. D.; IA# [id number] Specimen Anatomical Collection Method Collection Time Receive d Time (Source) Location / / Volume Laterality Blood (Blood, 06/28/2019 3:58 PM 06/29/19 1:58 Venous) CDT PM CDT D. Raheel Gupta MD LAB BLOOD ORDERABLES Performing Organization Address City/State/ZIP Code Phon e Number [facility] see result attachment for specific address documented in this encounter Visit Diagnoses Diagnosis Hyperthyroidism - Primary Thyrotoxicosis without mention of goiter or other cause, without mention of thyrotoxic crisis or storm documented in this encounter Care Teams Paste Up Worker Relationship Specialty Start Date End Date Tiffanie Mcgovern, CONSULTING SME, BABY DOCTOR PCP - General 10/14/17 07/14/19 [address] [facility] [place] [address] documented as of this encounter
--- OUTSIDE RECORDS SUMMARY | 2021-10-22 11:47 | XMS_ITS | Encounter Summary ---
:1970 Author Organization [facility] Address [address] [place] [address] Care Team Providers Name Role Phone Tiffanie Mcgovern APRN, KYLE Primary Care Provider [phone] Encounter Details Date Type Department Care Team Description 06/28/2019 Lab [facility] Hyperthyroidism [address] [place], [place] [address] Social History Tobacco Use [...] Name Priority Date/Time Associated Diagnosis Comme nts THYROTROPIN RECEPTOR Routine 06/28/2019 3:58 PM Hyperthyroidis m Results for this ANTIBODY CDT procedure are i n the results section. T3, FREE Routine 06/28/2019 3:58 PM Hyperthyroidism Result s for this CDT procedure are i n the results section. documented in this encounter Results (ABNORMAL) T3, free (06/28/2019 3:58 PM CDT) P athologist Signature T3, Free 7.0 (H) 2.8 - 4.4 06/29/2019 [facility] pg/mL 7:51 PM CDT LABORATORIES Comment: Test Performed by: [facility] [address] [facility] [place] [address] Glass Maker: Butch Guerrero M.D. Ph. D.; CLIA# [id number] Specimen Anatomical Collection Method Collection Time Receive d Time (Source) Location / / Volume Laterality Blood (Blood, 06/28/2019 3:58 PM 06/29/19 1:58 Venous) CDT PM CDT Roopa Lopez MD LAB BLOOD ORDERABLES Performing Organization Address City/State/ZIP Code Phon e Number [facility] see result attachment for specific address (ABNORMAL) Thyrotropin receptor antibody (06/28/2019 3:58 PM CDT) Patholo gist Method Time Signature Thyrotropin 2.76 (H) 0.00 - 06/29/2019 [facility] Receptor Ab 1.75 IU/L 7:45 PM [...] respectively (97.5th percenti les). Test Performed by: [facility] [address] [facility] [place] [address] Glass Maker: Butch Guerrero M.D. Ph. D.; CLIA# [id number] Specimen Anatomical Collection Method Collection Time Receive d Time (Source) Location / / Volume Laterality Blood (Blood, 06/28/2019 3:58 PM 06/29/19 1:58 Venous) CDT PM CDT Roopa Lopez MD LAB BLOOD ORDERABLES Performing Organization Address City/State/ZIP Code Phon e Number [facility] see result attachment for specific address documented in this encounter Visit Diagnoses Diagnosis Hyperthyroidism Thyrotoxicosis without mention of goiter or other cause, without mention of thyrotoxic crisis or storm documented in this encounter Care Teams Computer Installer Relationship Specialty Start Date End Date Tiffanie Mcgovern, IT APPLICATIONS DEVELOPER, ELECTROMECHANIC PCP - General 10/14/17 07/14/19 [address] [facility] [place] [address] documented as of this encounter
--- OUTSIDE RECORDS SUMMARY | 2021-10-22 11:47 | XMS_ITS | Encounter Summary ---
:1970 Author Organization [facility] Address [address] [place] [address] Care Team Providers Name Role Phone Roopa Lopez MD Primary Care Provider Encounter Details Date Type Department Care Team Description 08/10/2019 Lab [facility] Graves disease [address] [place] [address] Social History Tobacco Use [...] Name Priority Date/Time Associated Diagnosis Comme nts T3 Routine 08/10/2019 8:30 AM Graves disease Results for this CDT procedure are i n the results section . TSH Routine 08/10/2019 8:30 AM Graves disease Results for this CDT procedure are i n the results section . T4, FREE Routine 08/10/2019 8:30 AM Graves disease Results for this CDT procedure are i n the results section . documented in this encounter Results (ABNORMAL) T4, free (08/10/2019 8:30 AM CDT) P athologist Signature Free T4 2.63 (H) 0.78 - 2.19 08/10/2019 [facility] ng/dL 3:09 PM CDT [facility] Comment: The results [...] (Source) Location / / Volume Laterality Blood 08/10/2019 8:30 AM 0 1:02 CDT PM CDT Valerie Major MD LAB BLOOD ORDERABLES Performing Organization Address City/State/ZIP Code Phon e Number [facility] [address] [place] [address] (ABNORMAL) TSH (08/10/2019 8:30 AM CDT) Patholo gist Method Time Signature TSH, Sensitive <0.01 (L) 0.46 - 08/10/2019 [place] 4.68 mIU/L 3:28 PM CDT [facility] Comment: The [...] (Source) Location / / Volume Laterality Blood 08/10/2019 8:30 AM 0 1:02 CDT PM CDT Valerie Major MD LAB BLOOD ORDERABLES Performing Organization Address City/[facility]/ZIP Code Phon e Number [facility] [address] [place] [address] (ABNORMAL) T3 (08/10/2019 8:30 AM CDT) P athologist Signature T3, Total 3.16 (H) 0.97 - 1.69 08/10/2019 [facility] ng/mL 3:28 PM CDT [facility] Comment: The results [...] (Source) Location / / Volume Laterality Blood 08/10/2019 8:30 AM 0 1:02 CDT PM CDT Valerie Major MD LAB BLOOD ORDERABLES Performing Organization Address City/[facility] Phon e Number [facility] [address] [place] [phone] documented in this encounter Visit Diagnoses Diagnosis Graves disease Toxic diffuse goiter without mention of thyrotoxic crisis or storm documented in this encounter Care Teams Wrap Turner Relationship Specialty Start Date End Date Roopa Lopez MD PCP - General Family Medicine 07/15/19 02/26/[address] [place] [address] documented as of this encounter
--- OUTSIDE RECORDS SUMMARY | 2021-10-22 11:47 | XMS_ITS | Encounter Summary ---
:1970 Author Organization [facility] Address [address] [place] [address] Care Team Providers Name Role Phone Roopa Lopez MD Primary Care Provider Encounter Details Date Type Department Care Team Description 07/21/2019 Travel Social History Tobacco Use Types Packs/Day [...] been in contact with No / Unsure 07/21/2019 7:17 AM CDT someone who was confirmed or suspected to have Coronavirus / COVID-19? documented as of this encounter Plan of Treatment Not on filedocumented as of this encounter Visit Diagnoses Not on filedocumented in this encounter Care Teams Partition Assembly Machine Operator Relationship Specialty Start Date End Date Roopa Lopez MD PCP - General Family Medicine 07/15/19 02/26/[address] [place] [address] documented as of this encounter
--- OUTSIDE RECORDS SUMMARY | 2021-10-22 11:47 | XMS_ITS | Encounter Summary ---
:1970 Author Organization [facility] Address [address] [place] [address] Care Team Providers Name Role Phone Tiffanie Mcgovern APRN, KYLE Primary Care Provider [phone] Encounter Details Date Type Department Care Team Description 06/09/2019 Telemedicine [place] Roopa Lopez GUSTAVO (generalized [address] MD Raheel anxiety disorder) [place], [place] [address] (Primary Dx) [phone] [place] [address] Social History Tobacco Use Types Packs/Day Years [...] been in contact with No / Unsure 06/09/2019 8:25 AM CDT someone who was confirmed or suspected to have Coronavirus / COVID-19? documented as of this encounter Progress Notes Roopa Lopez MD - 06/09/2019 11:20 AM CDT Telephone Visit Subjective Patient ID: Laura Novak is a 48 y.o. female. HPI this is a phone consultation with the patient today regarding her chief complaint of anxiety symptoms. This appointment was conducted by telephone without visualization by either green party due to the national emergency created by the pandemic. Therefore no physical exam was possible and we are unable to perform vital signs or other [id number] testing or assessments. The patient understands the limitations of this form of communication she understands the reason for it at this time she wished to proceedwith this consultation by phone and she states that she is in a safe private environment and her privacy is protected. The only 2 individuals present during this conversation with myself and the patient. The patient's chief complaint is an episode of some panic attack and concerns and questions regarding medications and how to take them. 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 She underwent a complete and full evaluation at [facility] they did not notice any hardening of her arteries no plaques were noted and no stents were placed but they were able to reinduce a spasm and her symptoms. As such she has been treated with calcium channel blockers since that time with a fairly reasonable response. Approximately 6 months or so ago she came to was she was having some more chest pain and discomfort we increased her dose of verapamil from 180 mg a day to 240 mg/day she saw her bird tender they agreed with pro cess and she is really done quite well since that time. A couple of months ago she came to the office and saw my nurse practitioner Dennis at that point in time she was prescribed Zoloft to help assist with issues related to anxiety and depression. However she misunderstood the instructions and she was only taking the Zoloft on a infrequent basis as she thought that was how she was supposed to take it. However she was also given Ativan which she has about 14 tablets left to use for acute anxiety and that she should do occasionally but the Zoloft she should do on a regular basis daily. She also has trazodone that she uses at night to sleep and that is one that she can use either nightly or as needed as well. Therefore we discussed with her how to take the medications the Ativan if needed the Zoloft on a daily basis and the trazodone as needed. Unfortunately she had an event last night where she went to the emergency room because she had this chest pain chest heaviness little difficulty to breathe a little increased respirations and she was not certain whether this is related to her heart or anxiety. As such she went to the emergency room she had EKG chest x-rays laboratory test and everything was quite normal and they felt it was related to most likely anxiety not her underlying vasospasm. We did spend a little bit of time in discussion with her that it will be difficult to tell the difference sometimes between anxiety symptoms as compared to her chest pain symptoms but that something she will have to do her best job as she is able to and she has questions or concerns she is to let us know. She was told that certainly if she develops any substernal chest heaviness that is persisting that does not respond to her nitroglycerin after use of 2 doses that she should then proceed and go to the emergency room. However if this chest pain resolves with the use of Ativan and she feels better she does not need togo to the emergency room. At this point in time we prescribed her Zoloft 50 mg tablet she will take 1 a day previously she wasprescribed 25 mg which is a small dose so we increased that dose. We did tell the patient that we may need to increase that dose over time and she will have to let us know as to its effectiveness and how well it is working and whether we need to go up on the dose. 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 Counseled time was 15 minutes all 15 minutes was spent in review of the patient's symptoms or history medication management. documented in this encounter Plan of Treatment Not on filedocumented as of this encounter Visit Diagnoses Diagnosis GUSTAVO (generalized anxiety disorder) - Kaitlynn epstein Generalized anxiety disorder documented in this encounter Care Teams Director Stars Relationship Specialty Start Date End Date Tiffanie Mcgovern, GROUP MANAGING DIRECTOR, ALLOCATION ANALYST PCP - General 10/14/17 07/14/19 [address] [facility] [place] [address] documented as of this encounter
--- OUTSIDE RECORDS SUMMARY | 2021-10-22 11:47 | XMS_ITS | Encounter Summary ---
:1970 Author Organization [facility] Address [address] [place] [address] Care Team Providers Name Role Phone Roopa Lopez MD Primary Care Provider Reason for Referral Hospital - Outpatient (Routine) - Closed Specialty Diagnoses / Procedures Referred By Contact Refer red To Contact Radiology Diagnoses Graves disease Valerie Major MD Nuclear Medicine Procedures Nuclear medicine thyroid therapy ablation hyperthyroid [address] [place] [address] [place] [address] Phone: Fax: Referral ID Status Reason Start Date Expiration Date Visits Requ ested Visits Authorized [id number] Closed 07/16/2019 01/12/2020 1 1 Encounter Details Date Type Department Care Team Description 07/16/2019 Orders Only SE Endocrinology Craig Major disease (Primary [address] MD Valerie Dx) [place] [address] Social History Tobacco Use Types [...] documented as of this encounter Progress Notes Valerie Major MD - 07/16/2019 3:14 PM CDT nuc ther documented in this encounter Plan of Treatment Not on filedocumented as of this encounter Procedures Procedure Name Priority Date/Time Associated Comments Diagnosis NM THYROID THERAPY Routine 07/21/2019 11:30 Graves disease Res ults for this ABLATION BASIC AM CDT procedure are in HYPERTHYROID the results section. documented in this encounter Results Nuclear medicine thyroid therapy ablation hyperthyroid (07/21/2019 11:30 AM CDT) Anatomical Region Laterality Modality Head and Neck Nuclear Medicine Specimen (Source) Anatomical Collection Method Collection Time Re ceived Time Location / / Volume Laterality 07/21/2019 11:30 AM CDT Impressions 07/21/2019 3:41 PM CDT IMPRESSION: Outpatient 14.5 mCi I-131 therapy for hy perthyroidism. Narrative 07/21/2019 3:41 PM CDT INDICATION: Recommend treatment with 14 MCI of I-131 . (200/0.59 X 40 gram)/1000 mci COMPARISON: Thyroid scan 07/16/2019 TECHNIQUE: History: 48 Yo female with symptomatic h yperthyroidism with 24 hour uptake of 50.9 % on I-123 scan performed on 10/2019. ??Patient is currently off anti-thyroid medications. Technique: Dose was prescribed (written directive) by ??Moriah in conjunction with Authorized User, ?? Yuan Reardon. ??Risks, benefits and potential complications of radioactive I -131 therapy were discussed in detail with the patient by the Radiation Medical Imaging Technician (Jaimie Maharaj). ?? Verbal and written informed consent was obtained. ??Written instructions were given for radiation safety precauti ons to be observed for 3 days as an outpatient. ??Patient-specific exposu re calculations were done by RSO to ensure estimated maximum dose to any ind ividual exposed to patient was less than 0.5 rem or 5 mSv. ??Patient wa s specifically advised to avoid close contact with children, wo men, and other members of public. ?? Patient head hysterectomy in 2003. ??Dos e was verified in dose calibrator and patient was given oral I-131 pill un rajni RSO direct supervision. ?? Exposure rate at 1 meter was documented prior to patient release. ??No immediate complications. RADIOPHARM: RADIOPHARM: I 131 SODIUM IODINE CAPSULE 14.5 millicurie 07/21/2019 ORAL FINDINGS: As above. Procedure Note Yuan Reardon MD - 07/21/2019 INDICATION: Recommend treatment with 14 MCI of I-131 . (200/0.59 X 40 gram)/1000 mci COMPARISON: Thyroid scan 07/16/2019 TECHNIQUE: History: 48 Yo female with symptomatic h yperthyroidism with 24 hour uptake of 50.9 % on I-123 scan performed on 10/2019. Patient is currently off anti-thyroid medications. Technique: Dose was prescribed (written directive) by Dr. Major in conjunction with Authorized User, Dr. Gene Reardon. Risks, benefits and potential complications of radioactive I -131 therapy were discussed in detail with the patient by the Radiation Medical Imaging Technician (Jaimie Maharaj). Verbal and written informed consent was obtained. Written instructions were given for radiation safety precauti ons to be observed for 3 days as an outpatient. Patient-specific exposure calculations were done by RSO to ensure estimated maximum dose to any ind ividual exposed to patient was less than 0.5 rem or 5 mSv. Patient was specifically advised to avoid close contact with children, wo men, and other members of public. Patient head hysterectomy in 2003. Dose was verified in dose calibrator and patient was given oral I-131 pill un rajni RSO direct supervision. Exposure rate at 1 meter was documented prior to patient release. No immediate complications. RADIOPHARM: RADIOPHARM: I 131 SODIUM IODINE CAPSULE 14.5 millicurie 07/21/2019 ORAL FINDINGS: As above. IMPRESSION: Outpatient 14.5 mCi I-131 therapy for hy perthyroidism. Valerie Major MD IM NM PROCEDURES documented in this encounter Visit Diagnoses Diagnosis Graves disease - Primary Toxic diffuse goiter without mention of thyrotoxic crisis or storm documented in this encounter Care Teams Pillowcase Cutter Relationship Specialty Start Date End Date Roopa Lopez MD PCP - General Family Medicine 07/15/19 02/26/[address] [place] [address] documented as of this encounter
--- OUTSIDE RECORDS SUMMARY | 2021-10-22 11:47 | XMS_ITS | Encounter Summary ---
:1970 Author Organization [facility] Address [address] [place] [address] Care Team Providers Name Role Phone Tiffanie Mcgovern APRN, KYLE Primary Care Provider [phone] Reason for Visit Reason Comments Hyperthyroidism Consultation (Routine) - Closed Specialty Diagnoses / Procedures Referred By Contact Refer red To Contact Endocrinology Diagnoses Hyperthyroidism Roopa Lopez MD [address] [address] Referral ID Status Reason Start Date Expiration Date Visits V isits Requested Authorized [id number] Closed Specialty 06/29/2019 06/28/2020 1 1 Services Required Encounter Details Date Type Department Care Team Description 07/02/2019 Consult [facility] Endocrinology Roopa Lopez MD [address] [place] [address] Hyperthyroidism (Primary Dx); [address] [facility] [place] [address] Social History Tobacco Use Types Packs/Day Years [...] Sign Reading Time Taken Comments Blood Pressure 112/74 07/02/2019 12:20 PM CDT Pulse 86 07/02/2019 12:20 PM CDT Temperature 36.8 ??C (98.3 ??F) 07/02/2019 12:20 PM CDT Respiratory Rate 16 07/02/2019 12:20 PM CDT Oxygen Saturation 98% 07/02/2019 12:20 PM CDT Inhaled Oxygen Concentration - - Weight 87.1 kg (192 lb 2.1 oz) 07/02/2019 12:20 PM CDT Height 175 cm (5' 8.9) 07/02/2019 12:20 PM CDT Body Mass Index 28.46 07/02/2019 12:20 PM CDT documented in this encounter Patient Instructions Patient InstructionsValerie Major MD - 07/02/2019 12:30 PM CDT 1. Start Methimazole 10 mg daily 2. Call us with questions at [phone] documented in this encounter Progress Notes Valerie Major MD - 07/02/2019 12:30 PM CDT Consultation Primary Care Provider: Tiffanie Mcgovern APRN, GUARD SUPERVISOR Referring Provider: Roopa Lopez MD Chief Complaint: New consult for evaluation and management of hyperthyroidism Subjective Patient ID: Laura Novak is a 48 y.o. female. HPI Patient is a pleasant woman who is accompanied by her with symptoms of fatigue andgeneralized achiness since April 2019. In the last month she started also experiencing palpitations, generalized shakiness, sensation of pressure in her throat. She has history of cardiac comorbidities with coronary vasospasm induced SC in 2010. Subsequently she was seen for virtual visit by cardiology at [place] and underwent Holter monitoring which did not show any significant arrhythmias in May 2019. She subsequently underwent thyroid lab testing at [facility] on 06/16/2019 that showed a completely suppressed TSH of less than 0.01 (0.46-4.68). Baseline TSH from 08/2017 was 1.46. Free T4 was elevated at 3.30 (0.78-2.19) and free T3 is 7 (2.8-4.4). Thyrotropin receptor antibody is noted to be elevated at 2.76 (0-1.75). She reports noticing fluctuation in bowel movements from several loose stools per day to being constipated. She notices increased heat intolerance. Is noted to have a 5 pound weight loss over the last 3 months. She underwent hysterectomy with intact ovaries at age 33. Denies any change in mood. She also reports noticing some exertional shortness of breath and lower extremity edema. She denies any recent viral illness or pain over the thyroid area. No history of fragility fractures. No biotin use. No use of seaweed or kelp. No recent IV contrast exposure. There is history of hypothyroidism in her mother and Michael's thyroiditis in her sister. Denies any eye symptoms with double vision or eye pain. Review of systems: As in HPI. All other systems negative. LAB RESULTS Recent Results (from the past 1008 hour(s)) SARS Coronavirus 2 RNA detection, v Collection Time: 06/14/19 8:55 AM Result Value Ref Range SARS Covid specimen source Nasopharyngeal SARS CoV2 RNA Undetected Undetected Comprehensive metabolic panel Collection Time: 06/16/19 9:03 AM Result Value Ref Range Total Protein 7.1 6.3 - 8.2 g/dL Albumin, Serum 4.0 3.5 - 5.0 g/dL Total Bilirubin 0.9 0.1 - 1.0 mg/dL AST 60 (H) 8 - 43 U/L Alkaline Phosphatase 42 38 - 128 U/L ALT (SGPT) 56 (H) 0 - 34 U/L Sodium 134 (L) 135 - 145 mEq/L Potassium 4.0 3.5 - 5.1 mEq/L Chloride 98 98 - 107 mEq/L CO2 26 22 - 29 mmol/L BUN 12 5 - 25 mg/dL Creatinine 0.5 0.4 - 1.2 mg/dL Glucose 156 (H) 70 - 100 mg/dL Calcium, Total,S 9.8 8.4 - 10.2 mg/dL Fasting? No Vitamin D, Total Collection Time: 06/16/19 9:03 AM Result Value Ref Range Vitamin D, Total 56.3 ng/mL Cyclic citrullinated peptide antibody Collection Time: 06/16/19 9:03 AM Result Value Ref Range Cyclic Citrullin Peptide Ab <15.6 <20.0 (Negative) U Thyroid Function [place] Collection Time: 06/16/19 9:03 AM Result Value Ref Range TSH, Sensitive <0.01 (L) 0.46 - 4.68 mIU/L Rheumatoid factor Collection Time: 06/16/19 9:03 AM Result Value Ref Range Rheumatoid Factor 6 1 - 11 IU/mL ROCÍO Collection Time: 06/16/19 9:03 AM Result Value Ref Range ROCÍO 0.7 <=1.0 (Negative) U C-reactive protein ([facility] preferred) Collection Time: 06/16/19 9:03 AM Result Value Ref Range CRP 2.0 0.0 - 4.9 mg/L ESR-Sed rate Collection Time: 06/16/19 9:03 AM Result Value Ref Range Sed Rate 23 0 - 29 mm/hr CBC Branch Off w/Diff Collection Time: 06/16/19 9:03 AM Result Value Ref Range WBC 4.8 3.5 - 10.5 K/uL RBC 4.49 3.90 - 5.00 M/uL Hemoglobin 13.6 12.0 - 15.5 g/dL Hematocrit 39.1 35.0 - 44.0 % Platelets 279 150 - 450 K/uL MCV 87.1 81.6 - 98.3 fL MCH 30.3 26.0 - 32.0 pg MCHC 34.8 32.0 - 36.0 g/dL RDW 11.7 (L) 11.9 - 15.5 % Lymphocytes % 22.3 18.0 - 45.0 % Mid-size Cells 12.2 (H) 3.3 - 10.1 % Granulocytes/Neutrophils 65.5 45.8 - 73.7 % Lymphocytes Absolute 1.1 0.9 - 2.9 K/uL MIDS Absolute 0.6 0.2 - 0.8 K/uL Granulocytes/Neutrophils Absolute 3.1 2.1 - 8.7 K/uL Glomerular filtration rate (GFR) Collection Time: 06/16/19 9:03 AM Result Value Ref Range GFR >60 GFR >60 T4, free Collection Time: 06/16/19 9:03 AM Result Value Ref Range Free T4 3.30 (H) 0.78 - 2.19 ng/dL Thyroperoxidase (TPO) Ab Collection Time: 06/16/19 9:03 AM Result Value Ref Range Thyroid Peroxidase (TPO) Ab 9.3 (H) <9.0 IU/mL Add-On Test Request Collection Time: 06/17/19 2:35 PM Result Value Ref Range Add-on Testing SEE BELOW Thyrotropin receptor antibody Collection Time: 06/28/19 3:58 PM Result Value Ref Range Thyrotropin Receptor Ab 2.76 (H) 0.00 - 1.75 IU/L T3, free Collection Time: 06/28/19 3:58 PM Result Value Ref Range T3, Free 7.0 (H) 2.8 - 4.4 pg/mL Outpatient Encounter Medications as of 07/02/2019 Medication Sig Dispense Refill ??? Bacillus Coagulans-Inulin (PROBIOTIC-PREBIOTIC PO) Take 1-2 each by mouth 1 (one) time each day Chewables ??? LORazepam (ATIVAN) 1 MG tablet Take 1 mg by mouth if needed ??? Multiple Vitamins-Minerals (MULTIVITAMIN WOMEN PO) Take 1 tablet by mouth 1 (one) time each day ??? omeprazole (PriLOSEC) [address] capsule Take 1 capsule by mouth if needed ??? sertraline (ZOLOFT) 50 MG tablet Take ONE a day in the AM for anxiety/depression 90 tablet 1 ??? simvastatin (ZOCOR) 20 MG tablet TAKE ONE TABLET BY MOUTH AT BEDTIME 90 tablet 2 ??? traZODone (DESYREL) 50 MG tablet Take 1 tablet (50 mg total) by mouth every night 1 to 2 [id number] tablet 3 ??? verapamil ER (VERELAN) 240 MG 24 hr capsule Take one a day for heart 90 capsule 3 No facility-administered encounter medications on file as of 07/02/2019. Allergies as of 07/02/2019 - Reviewed 07/02/2019 Allergen Reaction Noted ??? Morphine Nausea And Vomiting 07/13/2010 ??? Oxycodone-acetaminophen Hives and Itching 07/13/2010 Past Medical History: Diagnosis Date ??? Allergic ??? Allergic rhinitis ??? Arthritis ??? GERD (gastroesophageal reflux disease) ??? Headache History ??? SC (myocardial infarction) (HCC) 06/18/2010 History of cardiovascular disorder Acute SC secondary to Vasospasm. No stents required. No heart damage. This occurred on 06/18/2010 started on Verapamil and Simvastatin ??? Urinary tract infection ??? Varicella ??? Visual impairment Past Surgical History: Procedure Laterality Date ??? HYSTERECTOMY History Family History Problem Relation Age of Onset ??? Hyperthyroidism Mother ??? Heart failure Father ??? Michael's thyroiditis Sister No family history of other autoimmune disorders. SOCIAL HISTORY: . Lives with her . Has 2 children age 21 and 17. 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 Does not smoke. Rare alcohol use. Objective Visit Vitals BP 112/74 (BP Location: Left arm, Patient Position: Sitting) Pulse 86 Temp 36.8 ??C (98.3 ??F) (Temporal) Resp 16 Ht 1.75 m (5' 8.9) Wt 87.1 kg (192 lb 2.1 oz) SpO2 98% BMI 28.46 kg/m?? Smoking Status Former Smoker BSA 2.06 m?? Physical Exam General-patient appears well no apparent distress HEENT-pupils equal reactive to light, no proptosis. No eye lid redness or puffiness; no conjunctivalinjection. Normal oral cavity [id number] to palpate, no dominant nodularity or obvious enlargement. No cervical or supraclavicular lymphadenopathy Lungs-clear to auscultation Cardiovascular-regular rate and rhythm, no murmur Abdomen- soft, nontender, no hepatosplenomegaly; Extremities- tremors on outstretched hands; no lower extremity edema Neuro- deep tendon reflex 2+ Skin- normal; no pretibial myxedema Assessment/Plan Diagnoses and all orders for this visit: Hyperthyroidism Graves disease - T4, free; Future - TSH; Future - T3; Future - methIMAzole (TAPAZOLE) 10 MG tablet; Take 1 tablet (10 mg total) by mouth 1 (one) time each day 1. I reviewed the physiology of pituitary thyroid regulation and noted the labs consistent with hyperthyroidism. 2. I reviewed the differential including subacute thyroiditis, autoimmune thyroid disease and nodular thyroid disease. With elevated thyrotropin receptor antibody I discussed about most likely diagnosis being autoimmune thyroid disease/Graves' disease. 3. I discussed about role of 24-hour radioiodine uptake and scan and neck ultrasound. We have decided to hold off on these additional tests for now due to ongoing Covid-19 threat 4.. I discussed about treatment options including medical therapy, radioiodine treatment and surgery. After discussing pros and cons in detail we have decided to proceed with medical therapy currently.Started on methimazole 10 mg daily. Discussed about side effect profile including rash, migratory polyarthritis, liver disease/agranulocytosis. 5. She is on calcium channel katie and is not noted to be tachycardic. We will hold off on beta-katie use. 6. She is noted to have mild underlying elevation of liver enzymes which is likely due to the hyperthyroidism. Not a contraindication to initiation of methimazole. 7. Follow-up visit arranged in 2 weeks with repeat TSH, free T4 and total T3. The patient understands and agrees with the above recommendations. I have spent 45 minutes in patient consultation and greater than 50% of the time in discussing about further evaluation, management and followup of thyroid concerns. documented in this encounter Plan of Treatment Not on filedocumented as of this encounter Results (ABNORMAL) T3 (08/10/2019 8:30 AM CDT) P athologist Signature T3, Total 3.16 (H) 0.97 - 1.69 08/10/2019 [facility] ng/mL 3:28 PM CDT [facility] Comment: [...] MD LAB BLOOD ORDERABLES Performing Organization Address City/[facility]/ZIP Code Phon e Number [facility] [address] [place] [phone] (ABNORMAL) TSH (08/10/2019 8:30 AM CDT) Patholo gist Method Time Signature TSH, Sensitive <0.01 (L) 0.46 - 08/10/2019 [facility] 4.68 mIU/L 3:28 PM CDT [facility] Comment: The results [...] MD LAB BLOOD ORDERABLES Performing Organization Address [facility]/ZIP Code Phon e Number [facility] [address] [place] [phone] (ABNORMAL) T4, free (08/10/2019 8:30 AM CDT) P athologist Signature Free T4 2.63 (H) 0.78 - 2.19 08/10/2019 [facility] ng/dL 3:09 PM CDT [facility] Comment: [...] Organization Address City/State/ZIP Code Phon e Number [facility] [address] [place] [address] documented in this encounter Visit Diagnoses Diagnosis Hyperthyroidism - Primary Thyrotoxicosis without mention of goiter or other cause, without mention of thyrotoxic crisis or storm Graves disease Toxic diffuse goiter without mention of thyrotoxic crisis or storm documented in this encounter Care Teams Delinquency Prevention Social Worker Relationship Specialty Start Date End Date Tiffanie Mcgovern APRN, GUARD SUPERVISOR PCP - General 10/14/17 07/14/19 [address] [place] [address] documented as of this encounter
--- OUTSIDE RECORDS SUMMARY | 2021-10-22 11:47 | XMS_ITS | Encounter Summary ---
:[address] [facility] Address [address] [place] [address] Care Team Providers Name Role Phone Tiffanie Mcgovern APRN, CNP Primary Care Provider Reason for Visit Reason Comments Joint Pain Encounter Details Date Type Department Care Team Description 06/15/2019 Telemedicine Tiffanie Acuna Arthralgia, [address] M, KYLE [place] unspecified joint ERNESTO Ramirez [address] (Primary Dx) [address] [place] [address] Social History Tobacco Use Types Packs/Day Years [...] as of this encounter Patient Instructions Patient InstructionsChpatel Mcgovern APRN, CNP - 06/15/2019 1:20 PM CDT Please come in for labs documented in this encounter Progress Notes Tiffanie Mcgovern APRN, CNP - 06/15/2019 1:20 PM CDT Telephone Visit Subjective Patient ID: Laura Novak is a 48 y.o. female patient of Tiffanie Mcgovern APRN, CNP, who is called on the phone from [place] to discuss Chief Complaint Patient presents with ??? Joint Pain HPI Patient is on the phone today with joint pain that she has had since February, which is worsening, affecting her activities of daily living, even walking up stairs is becoming painful. The patient reports every joint in her body aches from her shoulders to her toes, she feels fatigued, with a low energy. The patient reports the joints do not look deformed nor warm to touch. She will have swelling in her leg ankles and feet at the end of the evening which resolved. The patient reports the symptoms are not necessarily new she feels she has had a in the wintertime for several years in a row but never this bad and they seem better as spring and summer of life. She has a decreased taste just does not fe el good and is uncertain if she lost weight. The patient did have a bout of palpitations last Friday presented to the emergency room at which time they felt it was anxiety gave her Ativan placed a Holter monitor the patient does not feel this was anxiety, and does not feel anxious at this time.. She has reached out to her senior director of global commercial technology solutions who did a Holter monitor they have not return the Holter monitor and therefore the results are unavailable. The senior director of global commercial technology solutions is going to be referring her to a [facility] again she just does not feel this is anxiety. The patient has a history of a myocardialinfarction, secondary to vasospasms, and is on a calcium channel katie per cardiology recommendations. The patient has a history of hyperlipidemia is currently on Zocor 20 mg daily and due for lipid panel at this time. The patient reports she did have a negative troponin. The patient does have some shortness of breath. No fever nor chills. The patient does have some muscle aches but did try to exercise starting exercise routine about 2 weeks ago and the muscle aches she is experiencing are from the workout otherwise she does not have muscle aches. The patient reports she did increase her vitamin D feeling that in the past this could be a vitamin D deficiency she is concerned about fibromyalgia. The patient's mother and sister both have thyroid dysfunction. The patient is a non-smoker. The patient reports when she contacted the clinic for her appointment they did send her for COVID-19testing which was negative. ROS: GENERAL: See HPI. No fever, no chills. The patient does experience fatigue. The patient has had a decreased appetite and is uncertain if she lost weight. CARDIOVASCULAR: See HPI. The patient did experience palpitations a week ago was evaluated in the emergency room diagnosed with anxiety and is following up with cardiology by doing a Holter monitor. Shereports she had a negative troponin. The patient has a history of a myocardial infarction, secondaryto vasospasms, and is on a calcium channel katie per cardiology recommendations. The patient has ahistory of hyperlipidemia is currently on Zocor 20 mg daily and due for lipid panel at this time. RESPIRATORY: See HPI. The patient does experience some shortness of breath. ENDOCRINOLOGY: See HPI. No history of thyroid dysfunction. MUSCULOSKELETAL: See HPI. The patient has joint pain in all of her joints that started in February and is worsening affecting her activities of daily living making it difficult to go up and down the stairs. NEUROLOGICAL: See HPI. The patient does have a history of migraine headaches. PSYCHIATRIC: See HPI. The patient reports she does not feel anxious at this time. EXAM: Psych: Patient is conversant and pleasant over the phone. She endorses euthymic mood and is in no acute distress. Rest of exam unable to be completed due to phone interview. Assessment/Plan Problem List Items Addressed This Visit None Visit Diagnoses Arthralgia, unspecified joint - Primary Relevant Orders CBC Branch Off w/Diff ESR-Sed rate C-reactive protein ([facility] preferred) ROCÍO Rheumatoid factor Thyroid Function Keith Cyclic citrullinated peptide antibody Vitamin D, Total Comprehensive metabolic panel Discussed the plan of care with the patient. We need to rule out autoimmune deficiency particularly her thyroid function as she did have some palpitations and it has been a while since we have evaluated her TSH particularly with her family history. The patient did come agrees to come in for the labs. The patient will continue her work-up with the senior director of global commercial technology solutions regarding palpitations during this coronavirus pandemic they will continue the evaluation when able. The patient be notified of her lab results. The patient agrees and understands this plan of care. No follow-ups on file. The patient has consented to be consulted over the telephone without the capability of a physical exam and understands that this does not replace the importance of a face to face visit if problems persist. This is being done during the phase of the CDC COVID crisis and feel that it is in the patient's best interest to be treated over the phone at this time, as the benefits outweigh the risks. Additionally, the patient was made aware that this visit will be billed by time spent. The patient indicatesunderstanding of these issues and agrees with the plan. Time spent during this phone call was 17 minutes. documented in this encounter Plan of Treatment Not on filedocumented as of this encounter Results (ABNORMAL) Comprehensive metabolic panel (06/16/2019 9:03 AM CDT) [facility] Method Time Signature Total Protein 7.1 6.3 - 8.2 06/16/2019 [facility] g/dL 12:28 PM [facility] Albumin, Serum 4.0 3.5 - 5.0 06/16/2019 [place] g/dL 12:28 PM [facility] Total Bilirubin 0.9 0.1 - 1.0 06/16/2019 [place] mg/dL 12:28 PM [facility] AST 60 (H) 8 - 43 U/L 06/16/2019 [place] 12:28 PM [facility] Alkaline 42 38 - 128 06/16/2019 [place] Phosphatase U/L 12:28 PM [facility] ALT (SGPT) 56 (H) 0 - 34 U/L 06/16/2019 [place] 12:28 PM [facility] Sodium 134 (L) 135 - 145 06/16/2019 [place] mEq/L 12:28 PM [facility] Potassium 4.0 3.5 - 5.1 06/16/2019 [place] mEq/L 12:28 PM [facility] Chloride 98 98 - 107 06/16/2019 [place] mEq/L 12:28 PM [facility] CO2 26 22 - 29 06/16/2019 [place] mmol/L 12:28 PM [facility] BUN 12 5 - 25 06/16/2019 [place] mg/dL 12:28 PM [facility] Creatinine 0.5 0.4 - 1.2 06/16/2019 [place] mg/dL 12:28 PM [facility] Glucose 156 (H) 70 - 100 06/16/2019 [place] mg/dL 12:28 PM [facility] Calcium, Total,S 9.8 8.4 - 10.2 06/16/2019 [place] mg/dL 12:28 PM [facility] Fasting? No 06/16/2019 [place] 9:12 AM [facility] Specimen Anatomical Collection Method Collection Time Receive d Time (Source) Location / / Volume Laterality Blood 06/16/2019 9:03 AM 0 CDT 11:53 AM CDT Tiffanie Mcgovern APRN, CNP LAB BLOOD ORDERABLES Performing Organization Address City/State/ZIP Code Phon e Number [facility] [address] [place] [phone] Vitamin D, Total (06/16/2019 9:03 AM CDT) P athologist Signature Vitamin D, 56.3 ng/mL 06/16/2019 [facility] Total 12:38 PM [facility] Comment: Deficient ?<20 ? ng/mL Insufficient ? 20-<30 ??ng/mL Sufficient ? 30-100 ??ng/mL Vitamin D2/D3 fractionation is recommend ed at the discretion of the clinician if Total Vitamin D is w ithin deficient or insufficient range. Specimen Anatomical Collection Method Collection Time Receive d Time (Source) Location / / Volume Laterality Blood 06/16/2019 9:03 AM 0 CDT 11:53 AM CDT Tiffanie Mcgovern APRN, CNP LAB BLOOD ORDERABLES Performing Organization Address City/State/ZIP Code Phon e Number [facility] [address] [place] [address] Cyclic citrullinated peptide antibody (06/16/2019 9:03 AM CDT) P athologist Signature Cyclic <15.6 <20.0 06/17/2019 [facility] Citrullin (Negative) 7:02 PM CDT LABORATORIES Peptide Ab U Comment: Test Performed by: [facility] [place] [address] [address] Finisher: Btuch Guerrero M.D. Ph. D.; CLIA# [id number] Specimen Anatomical Collection Method Collection Time Receive d Time (Source) Location / / Volume Laterality Blood (Blood, 06/16/2019 9:03 AM 06/16/19 2:16 Venous) CDT PM CDT Tiffanie Mcgovern APRN, CNP LAB BLOOD ORDERABLES Performing Organization Address City/[facility]/ZIP Code Phon e Number [facility] see result attachment for specific address (ABNORMAL) Thyroid Function Keith (06/16/2019 9:03 AM CDT) Patholo gist Method Time Signature TSH, Sensitive <0.01 (L) 0.46 - 06/17/2019 [place] 4.68 mIU/L 2:16 PM CDT [facility] Comment: The results [...] Location / / Volume Laterality Blood (Blood, 06/16/2019 9:03 AM 06/17/19 20 Venous) CDT 12:05 PM CDT Tiffanie Mcgovern APRN, CNP LAB BLOOD ORDERABLES Performing Organization Address City/[facility]/ZIP Code Phon e Number [facility] [address] [place] [address] Rheumatoid factor (06/16/2019 9:03 AM CDT) athologist Signature Rheumatoid 6 1 - 11 06/16/2019 [facility] Factor IU/mL 12:48 PM CDT CENTER [facility] Specimen Anatomical Collection Method Collection Time Receive d Time (Source) Location / / Volume Laterality Blood (Blood, 06/16/2019 9:03 AM 06/16/19 20 Venous) CDT 12:01 PM CDT Tiffanie Mcgovern APRN, CNP LAB BLOOD ORDERABLES Performing Organization Address [facility] Phon e Number [facility] [address] [place] [address] ROCÍO (06/16/2019 9:03 AM CDT) athologist [facility] ROCÍO 0.7 <=1.0 06/17/2019 [facility] (Negative) 4:17 PM CDT LABORATORIES U Comment: ADDITIONAL INFORMATIO N Method: Enzyme-linked immunoassay using HEp-2 nuclear extract supplemented with purified antig ens. Test Performed by: [place] [address] [address] Finisher: Butch Guerrero M.D. Ph. D.; CLIA# [id number] Specimen Anatomical Collection Method Collection Time Receive d Time (Source) Location / / Volume Laterality Blood (Blood, 06/16/2019 9:03 AM 06/16/19 20 2:16 Venous) CDT PM CDT Tiffanie Mcgovern APRN, CNP LAB BLOOD ORDERABLES Performing Organization Address [facility]/ZIP Code Phon e Number [facility] see result attachment for specific address C-reactive protein ([facility] preferred) (06/16/2019 9:03 AM CDT) athologist Signature CRP 2.0 0.0 - 4.9 06/16/2019 [facility] mg/L 12:28 PM CDT [facility] Specimen Anatomical Collection Method Collection Time Receive d Time (Source) Location / / Volume Laterality Blood 06/16/2019 9:03 AM 0 CDT 11:53 AM CDT Tiffanie Mcgovern APRN, CNP LAB BLOOD ORDERABLES Performing Organization Address City/[facility]/ZIP Code Phon e Number [facility] [address] [place] [address] ESR-Sed rate (06/16/2019 9:03 AM CDT) P athologist Signature Sed Rate 23 0 - 29 06/16/2019 [facility] mm/hr 1:44 PM CDT [facility] Specimen Anatomical Collection Method Collection Time Receive d Time (Source) Location / / Volume Laterality Blood 06/16/2019 9:03 AM 0 CDT 11:53 AM CDT Tiffanie Mcgovern APRN, KYLE LAB BLOOD ORDERABLES Performing Organization Address City/[facility]/ZIP Code Phon e Number [facility] [address] [place] [phone] (ABNORMAL) CBC Branch Off w/Diff (06/16/2019 9:03 AM CDT) Patholo gist Method Time Signature WBC 4.8 3.5 - 10.5 06/16/2019 [facility] K/uL 11:00 AM CDT [facility] RBC 4.49 3.90 - 06/16/2019 [facility] 5.00 M/uL 11:00 AM CDT [facility] Hemoglobin 13.6 12.0 - 06/16/2019 [facility] 15.5 g/dL 11:00 AM CDT [facility] Hematocrit 39.1 35.0 - 06/16/2019 [facility] 44.0 % 11:00 AM CDT [facility] Platelets 279 150 - 450 06/16/2019 [facility] K/uL 11:00 AM CDT [facility] MCV 87.1 81.6 - 06/16/2019 [facility] 98.3 fL 11:00 AM CDT [facility] MCH 30.3 26.0 - 06/16/2019 [facility] 32.0 pg 11:00 AM CDT [facility] MCHC 34.8 32.0 - 06/16/2019 [facility] 36.0 g/dL 11:00 AM CDT [facility] RDW 11.7 (L) 11.9 - 06/16/2019 [facility] JONES 15.5 % 11:00 AM CDT [facility] Lymphocytes % 22.3 18.0 - 06/16/2019 [facility] JONES 45.0 % 11:00 AM CDT [facility] Mid-size Cells 12.2 (H) 3.3 - 10.1 06/16/2019 [facility] JONES % 11:00 AM CDT [facility] Granulocytes/Leslie 65.5 45.8 - 06/16/2019 [facility] JONES trophils 73.7 % 11:00 AM CDT [facility] Lymphocytes 1.1 0.9 - 2.9 06/16/2019 [facility] JONES Absolute K/uL 11:00 AM CDT [facility] MIDS Absolute 0.6 0.2 - 0.8 06/16/2019 [facility] JONES K/uL 11:00 AM CDT [facility] Granulocytes/Leslie 3.1 2.1 - 8.7 06/16/2019 [facility] JONES trophils K/uL 11:00 AM CDT [facility] Absolute Specimen Anatomical Collection Method Collection Time Receive d Time (Source) Location / / Volume Laterality Blood 06/16/2019 9:03 AM 0 9:12 CDT AM CDT Tiffanie Mcgovern APRN, CNP LAB BLOOD ORDERABLES Performing Organization Address City/State/ZIP Code Phon e Number [facility] ROBERT LOWE [address] [place] [address] documented in this encounter Visit Diagnoses Diagnosis Arthralgia, unspecified joint - Primary documented in this encounter Care Teams Bill Poster Installer Relationship Specialty Start Date End Date Tiffanie Mcgovern APRN, HEEL PADDER PCP - General 10/14/17 07/14/19 [address] [facility] NIKKI GOVINDERNESTO [place]S [address] documented as of this encounter
--- OUTSIDE RECORDS SUMMARY | 2021-10-22 11:47 | XMS_ITS | Encounter Summary ---
:1970 Author Organization [facility] Address [address] [place] [address] Care Team Providers Name Role Phone Tiffanie Mcgovern APRN, CNP Primary Care Provider Encounter Details Date Type Department Care Team Description 06/09/2019 Travel Social History Tobacco Use Types Packs/Day [...] on filedocumented in this encounter Care Teams Financial Intern Relationship Specialty Start Date End Date Tiffanie Mcgovern APRN, KYLE PCP - General 10/14/17 07/14/19 100 [facility] [place] [address] documented as of this encounter
--- OUTSIDE RECORDS SUMMARY | 2021-10-22 11:47 | XMS_ITS | Encounter Summary ---
:1970 Author Organization [facility] Address [address] [place] [address] Care Team Providers Name Role Phone Roopa Lopez MD Primary Care Provider Encounter Details Date Type Department Care Team Description 07/15/2019 Orders Only Roopa Caldwell Dental infection [address] MD Raheel (Primary Dx) [place], [place] [address] [facility] [address] [place] [address] Social History Tobacco Use Types Packs/Day Years [...] as of this encounter Visit Diagnoses Diagnosis Dental infection - Primary documented in this encounter Care Teams Cattle Producers Relationship Specialty Start Date End Date Roopa Lopez MD PCP - General Family Medicine 07/15/19 02/26/[address] [place] [address] documented as of this encounter
--- OUTSIDE RECORDS SUMMARY | 2021-10-22 11:47 | XMS_ITS | Encounter Summary ---
:1970 Author Organization [facility] Address [address] [place] [address] Care Team Providers Name Role Phone Roopa Lopez MD Primary Care Provider Reason for Visit Reason Onset Date Comments Thyroid Problem 06/28/2019 Encounter Details Date Type Department Care Team Description 06/28/2019 [place]phone [place] Thyroid Problem [address] [place], [place] [address] [place], [place] [phone] (Wo rk) Social History Tobacco Use Types [...] Telephone Encounter - Lili Carranza LPN - 06/28/2019 1:17 PM CDT She doesn't know if this could be related but wanted to bring it to your attention that her legs, ankles, and feet on both sides have edema. She said its gone on two or three weeks. Could you ask Endocrinology about this too? Telephone Encounter - Roopa Lopez MD - 06/28/2019 1:09 PM CDT Let Laura know that I am going to discuss her thyroid tests with [facility] Endocr[facility] department. Telephone Encounter - Chelsea Romero RN - 06/28/2019 10:53 AM CDT Patient discussed her lab results with Dr. Goodman who advised that she contact the clinic Friday to get next steps. She reports that she is still having leg and hand swelling, she isn't sure if this isrelated to the thyroid. She asked that you review her results and her notes and call her. Would you like there to make a telephone visit to discuss? Please advise. Telephone Encounter - Elaine Abreu - 06/28/2019 10:42 AM CDT Please call Laura with her lab results. documented in this encounter Plan of Treatment Not on filedocumented as of this encounter Visit Diagnoses Not on filedocumented in this encounter Care Teams Corrections Sergeant Relationship Specialty Start Date End Date Roopa Lopez MD PCP - General Family Medicine 07/15/19 02/26/[address] [place] [address] documented as of this encounter
--- OUTSIDE RECORDS SUMMARY | 2021-10-22 11:47 | XMS_ITS | Encounter Summary ---
:1970 Author Organization [facility] Address [address] [place] [address] Care Team Providers Name Role Phone Tiffanie Mcgovern APRN, CNP Primary Care Provider Encounter Details Date Type Department Care Team Description 06/16/2019 Travel Social History Tobacco Use Types Packs/Day [...] on filedocumented in this encounter Care Teams Curriculum Developer Relationship Specialty Start Date End Date Tiffanie Mcgovern APRN, KYLE PCP - General 10/14/17 07/14/19 100 [facility] [place] [address] documented as of this encounter
--- OUTSIDE RECORDS SUMMARY | 2021-10-22 11:47 | XMS_ITS | Encounter Summary ---
:1970 Author Organization [facility] Address [address] [place] [address] Care Team Providers Name Role Phone Tiffanie Mcgovern APRN, KYLE Primary Care Provider [phone] Encounter Details Date Type Department Care Team Description 06/16/2019 Lab Robert Guerrero Arthralgia, unspecified join t [address] [place] [address] Social History Tobacco Use [...] Procedure Name Priority Date/Time Associated Comments Diagnosis GLOMERULAR FILTRATION Routine 06/16/2019 9:03 Arthralgia, Res ults for this RATE AM CDT unspecified joint procedure are in the results section. THYROPEROXIDASE (TPO) Routine 06/16/2019 9:03 Res ults for this AB AM CDT procedure are i n the results section. THYROID FUNCTION Routine 06/16/2019 9:03 Arthralgia, Results for this CASCADE AM CDT unspecified joint procedure are in the results section. VITAMIN D, TOTAL Routine 06/16/2019 9:03 Arthralgia, Results for this AM CDT unspecified joint procedure are in the results section. CBC BRANCH OFFICE Routine 06/16/2019 9:03 Arthralgia, Results for this W/DIFF AM CDT unspecified joint procedure are in the results section. CYCLIC CITRULLINATED Routine 06/16/2019 9:03 Arthralgia, Resu lts for this PEPTIDE ANITBODY AM CDT unspecified joint proced ure are in the results section. SEDIMENTATION RATE, Routine 06/16/2019 9:03 Arthralgia, Resul ts for this AUTOMATED AM CDT unspecified joint procedure are in the results section. RHEUMATOID FACTOR Routine 06/16/2019 9:03 Arthralgia, Results for this AM CDT unspecified joint procedure are in the results section. C-REACTIVE PROTEIN Routine 06/16/2019 9:03 Arthralgia, Result s for this AM CDT unspecified joint procedure are in the results section. ROCÍO Routine 06/16/2019 9:03 Arthralgia, Results for this AM CDT unspecified joint procedure are in the results section. T4, FREE Routine 06/16/2019 9:03 Arthralgia, Results for this AM CDT unspecified joint procedure are in the results section. COMPREHENSIVE METABOLIC Routine 06/16/2019 9:03 Arthralgia, R esults for this PANEL AM CDT unspecified joint procedure are in the results section. documented in this encounter Results (ABNORMAL) Thyroperoxidase (TPO) Ab (06/16/2019 9:03 AM CDT) [facility] Method Time Signature Thyroid 9.3 (H) <9.0 06/18/2019 [facility] Peroxidase IU/mL 1:58 PM CDT LABORATORIES (TPO) Ab Comment: Test Performed by: [facility] [address] [address] Policyholder Information Clerk: Butch Guerrero M.D. Ph. D.; CLIA# [id number] Specimen Anatomical Collection Method Collection Time Receive d Time (Source) Location / / Volume Laterality 06/16/2019 9:03 AM 0 CDT 10:09 PM CDT Tiffanie Mcgovern APRN, CNP LAB BLOOD ORDERABLES Performing Organization Address City/State/ZIP Code Phon e Number [facility] see result attachment for specific address (ABNORMAL) T4, free (06/16/2019 9:03 AM CDT) athologist Signature Free T4 3.30 (H) 0.78 - 2.19 06/17/2019 [facility] ng/dL 3:56 PM CDT CENTER [facility]ORY Comment: The results [...] Time (Source) Location / / Volume Laterality 06/16/2019 9:03 AM 0 CDT 12:05 PM CDT Tiffanie Mcgovern APRN, CNP LAB BLOOD ORDERABLES Performing Organization Address City/[facility]/ZIP Code Phon e Number [facility] [address] [place] [phone] Glomerular filtration rate (GFR) (06/16/2019 9:03 AM CDT) athologist Signature GFR >60 06/16/2019 [facility] 12:28 PM CDT [facility] >60 06/16/2019 [facility] Filipino GFR 12:28 PM CDT [facility] Comment: GFR calculated from serum creatinine v alue Chronic Kidney Disease less than 60 mL/m in/1.73 m2 Kidney Failure less than 15 mL/min/1.73 m2 Note: effective 07/23/06 IDMS-Traceable MDRD Study Equation used. Specimen Anatomical Collection Method Collection Time Receive d Time (Source) Location / / Volume Laterality 06/16/2019 9:03 AM 0 9:03 CDT AM CDT Tiffanie Mcgovern APRN, CNP LAB BLOOD ORDERABLES Performing Organization Address City/State/ZIP Code Phon e Number [facility] [address] [place] [address] (ABNORMAL) CBC Branch Off w/Diff (06/16/2019 9:03 AM CDT) [facility] Method Time Signature WBC 4.8 3.5 - 10.5 06/16/2019 [facility] K/uL 11:00 AM CDT [place] RBC 4.49 3.90 - 06/16/2019 [facility] 5.00 M/uL 11:00 AM CDT [place] Hemoglobin 13.6 12.0 - 06/16/2019 [facility] 15.5 g/dL 11:00 AM CDT [place] Hematocrit 39.1 35.0 - 06/16/2019 [facility] 44.0 % 11:00 AM CDT [place] Platelets 279 150 - 450 06/16/2019 [facility] K/uL 11:00 AM CDT [place] MCV 87.1 81.6 - 06/16/2019 [facility] 98.3 fL 11:00 AM CDT [place] MCH 30.3 26.0 - 06/16/2019 [facility] 32.0 pg 11:00 AM CDT [place] MCHC 34.8 32.0 - 06/16/2019 [facility] 36.0 g/dL 11:00 AM CDT [place] RDW 11.7 (L) 11.9 - 06/16/2019 [facility] 15.5 % 11:00 AM CDT [place] Lymphocytes % 22.3 18.0 - 06/16/2019 [facility] 45.0 % 11:00 AM CDT [place] Mid-size Cells 12.2 (H) 3.3 - 10.1 06/16/2019 [facility] % 11:00 AM CDT [place] Granulocytes/Leslie 65.5 45.8 - 06/16/2019 [facility] trophils 73.7 % 11:00 AM CDT [place] Lymphocytes 1.1 0.9 - 2.9 06/16/2019 [facility] Absolute K/uL 11:00 AM CDT [place] MIDS Absolute 0.6 0.2 - 0.8 06/16/2019 [facility] K/uL 11:00 AM CDT [place] Granulocytes/Leslie 3.1 2.1 - 8.7 06/16/2019 [facility] JONES trophils K/uL 11:00 AM CDT [place] Absolute Specimen Anatomical Collection Method Collection Time Receive d Time (Source) Location / / Volume Laterality Blood 06/16/2019 9:03 AM 0 9:12 CDT AM CDT Tiffanie Mcgovern APRN, CNP LAB BLOOD ORDERABLES Performing Organization Address City/[facility]/ZIP Code Phon e Number [facility] [place] [address] [place] [address] ESR-Sed rate (06/16/2019 9:03 AM CDT) athologist Signature Sed Rate 23 0 - 29 06/16/2019 [facility] mm/hr 1:44 PM CDT [facility] Specimen Anatomical Collection Method Collection Time Receive d Time (Source) Location / / Volume Laterality Blood 06/16/2019 9:03 AM 0 CDT 11:53 AM CDT Tiffanie Mcgovern APRN, CNP LAB BLOOD ORDERABLES Performing Organization Address City/[facility]/ZIP Code Phon e Number [facility] [address] [place] [address] C-reactive protein ([facility] preferred) (06/16/2019 9:03 AM CDT) athologist Signature CRP 2.0 0.0 - 4.9 06/16/2019 [facility] mg/L 12:28 PM CDT [facility] Specimen Anatomical Collection Method Collection Time Receive d Time (Source) Location / / Volume Laterality Blood 06/16/2019 9:03 AM 0 CDT 11:53 AM CDT Tiffanie Mcgovern APRN, CNP LAB BLOOD ORDERABLES Performing Organization Address City/[facility]/ZIP Code Phon e Number [facility] [address] [place] [address] ROCÍO (06/16/2019 9:03 AM CDT) athologist Signature ROCÍO 0.7 <=1.0 06/17/2019 [facility] (Negative) 4:17 PM CDT LABORATORIES U Comment: ADDITIONAL INFORMATIO N Method: Enzyme-linked immunoassay using HEp-2 nuclear extract supplemented with purified antig ens. Test Performed by: [facility] [address] [address] Policyholder Information Clerk: Butch Guerrero M.D. Ph. D.; CLIA# [id number] Specimen Anatomical Collection Method Collection Time Receive d Time (Source) Location / / Volume Laterality Blood (Blood, 06/16/2019 9:03 AM 06/16/19 20 2:16 Venous) CDT PM CDT Tiffanie Mcgovern APRN, CNP LAB BLOOD ORDERABLES Performing Organization Address City/State/ZIP Code Phon e Number [facility] see result attachment for specific address Rheumatoid factor (06/16/2019 9:03 AM CDT) athologist Signature Rheumatoid 6 1 - 11 06/16/2019 [facility] Factor IU/mL 12:48 PM T [facility] Specimen Anatomical Collection Method Collection Time Receive d Time (Source) Location / / Volume Laterality Blood (Blood, 06/16/2019 9:03 AM 06/16/19 20 Venous) CDT 12:01 PM CDT Tiffanie Mcgovern APRN, CNP LAB BLOOD ORDERABLES Performing Organization Address City/State/ZIP Code Phon e Number [facility] [address] [place] [address] (ABNORMAL) Thyroid Function [place] (06/16/2019 9:03 AM CDT) Patholo gist Method Time Signature TSH, Sensitive <0.01 (L) 0.46 - 06/17/2019 [facility] 4.68 mIU/L 2:16 PM CDT [facility] Comment: The results from [...] Phon e Number [facility] [address] [place] [address] Cyclic citrullinated peptide antibody (06/16/2019 9:03 AM CDT) athologist Signature Cyclic <15.6 <20.0 06/17/2019 [facility] Citrullin (Negative) 7:02 PM CDT LABORATORIES Peptide Ab U Comment: Test Performed by: [facility] [address] [address] Policyholder Information Clerk: Butch Guerrero M.D. Ph. D.; IA# [id number] Specimen Anatomical Collection Method Collection Time Receive d Time (Source) Location / / Volume Laterality Blood (Blood, 06/16/2019 9:03 AM 06/16/19 20 2:16 Venous) CDT PM CDT Tiffanie Mcgovern APRN, CNP LAB BLOOD ORDERABLES Performing Organization Address City/[facility]/ZIP Code Phon e Number [facility] see result attachment for specific address Vitamin D, Total (06/16/2019 9:03 AM CDT) athologist Signature Vitamin D, 56.3 ng/mL 06/16/2019 [facility] Total 12:38 PM CDT CENTER [facility] Comment: Deficient ?<20 ? ng/mL [...] e Number [facility] [address] [place] [address] (ABNORMAL) Comprehensive metabolic panel (06/16/2019 9:03 AM CDT) [facility] Method Time Signature Total Protein 7.1 6.3 - 8.2 06/16/2019 [facility] g/dL 12:28 PM [facility] Albumin, Serum 4.0 3.5 - 5.0 06/16/2019 [facility] g/dL 12:28 PM [facility] Total Bilirubin 0.9 0.1 - 1.0 06/16/2019 [facility] mg/dL 12:28 PM [facility] AST 60 (H) 8 - 43 U/L 06/16/2019 [facility] 12:28 PM [facility] Alkaline 42 38 - 128 06/16/2019 [facility] Phosphatase U/L 12:28 PM [facility] ALT (SGPT) 56 (H) 0 - 34 U/L 06/16/2019 [facility] 12:28 PM [facility] Sodium 134 (L) 135 - 145 06/16/2019 [facility] mEq/L 12:28 PM [facility] Potassium 4.0 3.5 - 5.1 06/16/2019 [facility] mEq/L 12:28 PM [facility] Chloride 98 98 - 107 06/16/2019 [facility] mEq/L 12:28 PM [facility] CO2 26 22 - 29 06/16/2019 [facility] mmol/L 12:28 PM [facility] BUN 12 5 - 25 06/16/2019 [facility] mg/dL 12:28 PM [facility] Creatinine 0.5 0.4 - 1.2 06/16/2019 [place] mg/dL 12:28 PM [facility] Glucose 156 (H) 70 - 100 06/16/2019 [place] mg/dL 12:28 PM [facility] Calcium, Total,S 9.8 8.4 - 10.2 06/16/2019 [facility] mg/dL 12:28 PM [facility] Fasting? No 06/16/2019 [facility] 9:12 AM [facility] Specimen Anatomical Collection Method Collection Time Receive d Time (Source) Location / / Volume Laterality Blood 06/16/2019 9:03 AM 0 CDT 11:53 AM CDT Tiffanie Mcgovern APRN, CNP LAB BLOOD ORDERABLES Performing Organization Address City/State/ZIP Code Phon e Number [facility] [address] [place] [address] documented in this encounter Visit Diagnoses Diagnosis Arthralgia, unspecified joint documented in this encounter Care Teams Restaurant Expeditor Relationship Specialty Start Date End Date Tiffanie Mcgovern APRN, COMMERCIAL HOUSEKEEPER PCP - General 10/14/17 07/14/[address] [place] [address] documented as of this encounter
--- OUTSIDE RECORDS SUMMARY | 2021-10-22 11:47 | XMS_ITS | Encounter Summary ---
:1970 Author Organization [facility] Address [address] [place] [address] Care Team Providers Name Role Phone Tiffanie Mcgovern BRIDAL CONSULTANT, SURGICAL SCHEDULER Primary Care Provider [phone] Encounter Details Date Type Department Care Team Description 06/17/2019 Orders Only Robert Guerrero Tiffanie Mcgovern, Arthralgia, [address] BRIDAL CONSULTANT, KYLE unspecified joint Robert Guerrero [place] [address] (Primary Dx) [address] [place] [address] Social History Tobacco Use Types Packs/Day Years [...] Name Priority Date/Time Associated Diagnosis Comme nts ADD-ON TEST REQUEST Routine 06/17/2019 2:35 PM Arthralgia, Re sults for this CDT unspecified joint procedure are in the results section. documented in this encounter Results Add-On Test Request (06/17/2019 2:35 PM CDT) [facility] gist Method Time Signature Add-on Testing SEE BELOW 06/17/2019 [place] 2:41 PM CDT [facility] Comment: TPO added to [id number] Specimen Anatomical Collection Method Collection Time Receive d Time (Source) Location / / Volume Laterality 06/17/2019 2:35 PM 0 2:35 CDT PM CDT Tiffanie Mcgovern APRN, SURGICAL SCHEDULER LAB BLOOD ORDERABLES Performing Organization Address City/State/ZIP Code Phon e Number [facility] [address] [place] [address] documented in this encounter Visit Diagnoses Diagnosis Arthralgia, unspecified joint - Primary documented in this encounter Care Teams Latex Caster Relationship Specialty Start Date End Date Tiffanie Mcgovern APRN, SURGICAL SCHEDULER PCP - General 10/14/17 07/14/19 [address] [place] [address] documented as of this encounter
--- OUTSIDE RECORDS SUMMARY | 2021-10-22 11:48 | XMS_ITS | Encounter Summary ---
:1970 Author Organization [facility] Address [address] [place] [address] Care Team Providers Name Role Phone Tiffanie Mcgovern APRN, COATING AND BAKING OPERATOR Primary Care Provider [phone] Encounter Details Date Type Department Care Team Description 07/21/2018 Orders Only Robert Guerrero Tiffanie Mcgovern, Screening for [address] SURFACING TECHNICIAN, KYLE diabetes mellitus Robert Guerrero [place] [address] (Primary Dx) [address] [place] [address] Social History Tobacco Use Types Packs/Day Years [...] on filedocumented as of this encounter Results Hemoglobin A1c (07/22/2018 2:20 PM CDT) athologist Signature Hemoglobin A1C 5.3 4.0 - 5.6 07/23/2018 [facility] % A1C 1:44 PM CDT CENTER LABORATORY Comment: Reference Range [...] Location / / Volume Laterality Blood (Blood, 07/22/2018 2:20 PM 07/24/19 19 Venous) CDT 12:17 PM CDT Tiffanie Mcgovern APRN, COATING AND BAKING OPERATOR LAB BLOOD ORDERABLES Performing Organization Address City/State/ZIP Code Phon e Number [facility] [address] [place] [address] documented in this encounter Visit Diagnoses Diagnosis Screening for diabetes mellitus - Primar y documented in this encounter Care Teams Welding Machine Operator Submerged Arc Relationship Specialty Start Date End Date Tiffanie Mcgovern APRN, COATING AND BAKING OPERATOR PCP - General 10/14/17 07/14/19 [address] [place] [address] documented as of this encounter
--- OUTSIDE RECORDS SUMMARY | 2021-10-22 11:48 | XMS_ITS | Encounter Summary ---
:[address] [facility] Address [address] [place] [address] Care Team Providers Name Role Phone Tiffanie Mcgovern APRN, CNP Primary Care Provider [phone] Encounter Details Date Type Department Care Team Description 11/29/2017 Orders Only Rogelio Guerrero Tiffanie Mcgovern, Diarrhea, unspecified [address] [place] type (Primary Dx) ERNESTO Savage [address] [facility] [address] [place] [address] Social History Tobacco Use Types Packs/Day Years Used Date Never Assessed Alcohol Habits Answer Date Recorded How often [...] as of this encounter Visit Diagnoses Diagnosis Diarrhea, unspecified type - Primary documented in this encounter Care Teams Mender Hand Relationship Specialty Start Date End Date Tiffanie Mcgovern APRN, CNP PCP - General 10/14/17 07/14/19 100 [place] [address] documented as of this encounter
--- OUTSIDE RECORDS SUMMARY | 2021-10-22 11:48 | XMS_ITS | Encounter Summary ---
:1970 Author Organization [facility] Address [address] [place] [address] Care Team Providers Name Role Phone Tiffanie Mcgovern APRN, CNP Primary Care Provider [phone] Encounter Details Date Type Department Care Team Description 10/27/2018 [place], [address] [place] [address] [address] [facility] [phone] [place], [place] [address] Social History Tobacco Use Types Packs/Day Years [...] this encounter Miscellaneous Notes Telephone Encounter - Tiffanie Mcgovern APRN, CNP - 10/27/2018 10:52 AM CDT The patient was notified of the mammogram results. documented in this encounter Plan of Treatment Not on filedocumented as of this encounter Visit Diagnoses Not on filedocumented in this encounter Care Teams All Source Intelligence Relationship Specialty Start Date End Date Tiffanie Mcgovern, DRUG ABUSE COUNSELOR, SENIOR TECH MANUFACTURING ENGINEERING PCP - General 10/14/17 07/14/19 100 [facility] [place] [address] documented as of this encounter
--- OUTSIDE RECORDS SUMMARY | 2021-10-22 11:48 | XMS_ITS | Encounter Summary ---
:1970 Author Organization [facility] Address [address] [place] [address] Care Team Providers Name Role Phone Tiffanie Mcgovern APRN, KYLE Primary Care Provider [phone] Encounter Details Date Type Department Care Team Description 07/22/2018 [facility] Robert Guerrero Screening for diabetes melli tus; [address] [facility] [place], [place] [address] Social History Tobacco Use [...] Name Priority Date/Time Associated Diagnosis Comme nts HEMOGLOBIN A1C Routine 07/22/2018 2:20 PM Screening for Result s for this CDT diabetes mellitus procedure are in the results section . documented in this encounter Results Hemoglobin A1c (07/22/2018 2:20 PM CDT) athologist Signature Hemoglobin A1C 5.3 4.0 - 5.6 07/23/2018 [facility] % A1C 1:44 PM CDT CENTER LABORATORY [...] CDT 12:17 PM CDT Tiffanie Mcgovern APRN, HUMAN RESOURCES SAFETY MANAGER LAB BLOOD ORDERABLES Performing Organization Address City/State/ZIP Code Phon e Number [facility] [address] [place] [address] documented in this encounter Visit Diagnoses Diagnosis Screening for diabetes mellitus Shakiness Abnormal involuntary movements documented in this encounter Care Teams Community Health Director Relationship Specialty Start Date End Date Tiffanie Mcgovern APRN, HUMAN RESOURCES SAFETY MANAGER PCP - General 10/14/17 07/14/19 [address] [place] [address] documented as of this encounter
--- OUTSIDE RECORDS SUMMARY | 2021-10-22 11:48 | XMS_ITS | Encounter Summary ---
:1970 Author Organization [facility] Address [address] [place] [address] Care Team Providers Name Role Phone Tiffanie Mcgovern APRN, KYLE Primary Care Provider [phone] Encounter Details Date Type Department Care Team Description 12/14/2018 Lab Robert Guerrero Preoperative examination; [address] Hyperlipidemia, unspecified hyperlipidemia type ERNESTO Ramirez [phone] Social History [...] Name Priority Date/Time Associated Diagnosis Comme nts CBC BRANCH OFFICE Routine 12/14/2018 10:14 Preoperative Result s for this W/DIFF AM CDT examination procedure are i n the results section. HEMOCUE GLUCOSE Routine 12/14/2018 10:14 Results for this AM CDT procedure are i n the results section. POTASSIUM Routine 12/14/2018 10:14 Results for this AM CDT procedure are i n the results section. LIPID PANEL Routine 12/14/2018 10:14 Hyperlipidemia, Results for this AM CDT unspecified procedure are i n hyperlipidemia type the resu lts section. FASTING ? Routine 12/14/2018 10:00 Results for this AM CDT procedure are i n the results section. documented in this encounter Results Potassium (12/14/2018 10:14 AM CDT) athologist Signature Potassium 4.0 3.5 - 5.1 12/15/2018 [facility] mEq/L 1:10 PM CDT [facility] Specimen Anatomical Collection Method Collection Time Receive d Time (Source) Location / / Volume Laterality 12/14/2018 10:14 12/15/2018 AM CDT 12:35 PM CDT Tiffanie Mcgovern APRN, CNP LAB BLOOD ORDERABLES Performing Organization Address City/[facility]/ZIP Code Phon e Number [facility] [address] [place] [address] HemoCue glucose (12/14/2018 10:14 AM CDT) athologist [facility] Glucose, Bld 87 70 - 100 12/14/2018 [facility] mg/dL 10:32 AM CDT [place] Comment: . Specimen Anatomical Collection Method Collection Time Receive d Time (Source) Location / / Volume Laterality 12/14/2018 10:14 12/14/2018 AM CDT 10:14 AM CDT Tiffanie Mcgovern APRN, CNP LAB BLOOD ORDERABLES Performing Organization Address City/[facility]/ZIP Code Phon e Number [facility] [place] [address] [place] [address] (ABNORMAL) Lipid panel (12/14/2018 10:14 AM CDT) athologist Signature Cholesterol 171 0 - 199 12/15/2018 [facility] mg/dL 1:10 PM CDT [facility] Comment: Recommended by National Cholesterol Education Program (ATP III) -------- Cholesterol Ranges -------- <200 ? Desirable 200-239 ? Borderline high >=240 ? High Triglycerides 150 (A) 0 - 149 mg/dL 12/15/2018 1:10 PM CDT [facility] Comment: -------- TRIG Ranges -------- <150 ?Normal 150-199 ? Borderline high 200-499 ? High >=500 ? Very high HDL 59 40 - 60 mg/dL 12/15/2018 1:10 PM CDT [facility] Comment: -------- HDL Ranges -------- <40 ?Low 40-59 ?Normal >=60 ? Optimal LDL Calculated 82 0 - 99 mg/dL 12/15/2018 1:10 PM CDT [facility] Comment: -------- LDL Ranges -------- <100 ? Optimal 100-129 ?Near optimal/above op timal 130-159 ?Borderline high 160-189 ?High >=190 ?Very high Fasting? Yes 12/14/2018 10:27 AM CDT [facility] Specimen Anatomical Collection Method Collection Time Receive d Time (Source) Location / / Volume Laterality Blood 12/14/2018 10:14 12/15/2018 AM CDT 12:35 PM CDT Tiffanie Mcgovern APRN, [employer] LAB BLOOD ORDERABLES Performing Organization Address City/State/ZIP Code Phon e Number [facility] [address] [place] [id number] CBC Branch Off w/Diff (12/14/2018 10:14 AM CDT) P athologist Signature WBC 6.2 3.5 - 10.5 12/14/2018 [facility] K/uL 10:32 AM CDT [place] RBC 4.36 3.90 - 12/14/2018 [facility] 5.00 M/uL 10:32 AM CDT [place] Hemoglobin 13.8 12.0 - 12/14/2018 [facility] 15.5 g/dL 10:32 AM CDT [place] Hematocrit 39.8 35.0 - 12/14/2018 [facility] 44.0 % 10:32 AM CDT [place] Platelets 329 150 - 450 12/14/2018 [facility] K/uL 10:32 AM CDT [place] MCV 91.3 81.6 - 12/14/2018 [facility] 98.3 fL 10:32 AM CDT [place] MCH 31.7 26.0 - 12/14/2018 [facility] 32.0 pg 10:32 AM CDT [place] MCHC 34.7 32.0 - 12/14/2018 [facility] 36.0 g/dL 10:32 AM CDT [place] RDW 12.6 11.9 - 12/14/2018 [facility] 15.5 % 10:32 AM CDT [place] Lymphocytes % 26.2 18.0 - 12/14/2018 [facility] 45.0 % 10:32 AM CDT [place] Mid-size Cells 9.2 3.3 - 10.1 12/14/2018 [facility] % 10:32 AM CDT [place] Granulocytes/Leslie 64.6 45.8 - 12/14/2018 [facility] trophils 73.7 % 10:32 AM CDT [place] Lymphocytes 1.6 0.9 - 2.9 12/14/2018 [facility] Absolute K/uL 10:32 AM CDT [place] MIDS Absolute 0.6 0.2 - 0.8 12/14/2018 [facility] K/uL 10:32 AM CDT [place] Granulocytes/Leslie 4.0 2.1 - 8.7 12/14/2018 [facility] trophils K/uL 10:32 AM CDT [place] Absolute Specimen Anatomical Collection Method Collection Time Receive d Time (Source) Location / / Volume Laterality Blood 12/14/2018 10:14 12/14/2018 AM CDT 10:14 AM CDT Tiffanie Mcgovern BRIM BUSTER, [employer]CH[employer]DEL MAKER LAB BLOOD ORDERABLES Performing Organization Address City/State/ZIP Code Phon e Number [facility] [place] [address] [place] [id number] Fasting ? (12/14/2018 10:00 AM CDT) P athologist Signature Fasting? Yes 12/14/2018 [facility] 10:27 AM CDT [place] Specimen Anatomical Collection Method Collection Time Receive d Time (Source) Location / / Volume Laterality 12/14/2018 10:00 12/14/2018 AM CDT 10:00 AM CDT Tiffanie Mcgovern APRN, CNP LAB BLOOD ORDERABLES Performing Organization Address City/State/ZIP Code Phon e Number [facility] [address] [place] [phone] documented in this encounter Visit Diagnoses Diagnosis Preoperative examination Unspecified pre-operative examination Hyperlipidemia, unspecified hyperlipidem ia type documented in this encounter Care Teams Drapery Supervisor Relationship Specialty Start Date End Date Tiffanie Mcgovern APRN, KYLE PCP - General 10/14/17 07/14/[address] [place] [address] [place] [id number] documented as of this encounter
--- OUTSIDE RECORDS SUMMARY | 2021-10-22 11:48 | XMS_ITS | Encounter Summary ---
:1970 Author Organization [facility] Address [address] [place] [address] Care Team Providers Name Role Phone Tiffanie Mcgovern STRATEGIC BUYER, DEBONE SUPERVISOR Primary Care Provider [phone] Reason for Visit Reason Comments Pre-op Exam Pre-op physiocal, DOS: 12/18, Left Hip Encounter Details Date Type Department Care Team Description 12/14/2018 Consult Tiffanie Acuna, Preoperative examination (Pr imary Dx); [address] STRATEGIC BUYER, KYLE Tear of left acetabular labrum, subseque nt encounter; ERNESTO Ramirez [address] Hyperlipidemia, unspecified hyperlipidem ia type [address] [place] [address] Social History Tobacco Use Types Packs/Day Years [...] Sign Reading Time Taken Comments Blood Pressure 110/68 12/14/2018 8:58 AM CDT Pulse 66 12/14/2018 8:58 AM CDT Temperature 36.6 ??C (97.8 ??F) 12/14/2018 8:58 AM CDT Respiratory Rate 16 12/14/2018 8:58 AM CDT Oxygen Saturation 97% 12/14/2018 8:58 AM CDT Inhaled Oxygen Concentration - - Weight 86 kg (189 lb 9.5 oz) 12/14/2018 8:58 AM CDT Height 175 cm (5' 8.9) 12/14/2018 8:58 AM CDT Body Mass Index 28.08 12/14/2018 8:58 AM CDT documented in this encounter Patient Instructions Patient InstructionsChpatel Mcgovern APRN, CNP - 12/14/2018 9:00 AM CDT Nothing to eat or drink after midnight No over the counter medications until after surgery documented in this encounter Progress Notes Tiffanie Mcgovern APRN, CNP - 12/14/2018 9:00 AM CDT Preoperative History and Physical Assessment/Plan Laura Novak is a 48 y.o. female here for a preoperative evaluation for a left hip scope, labral repair, possible pincer resection, chondroplasty, capsule closure, under the care of Dr. Cortes, at [facility] in [place], on December 18, 2018. The preoperative risk assessment has determined the following: No contraindications to planned surgery No problems updated. Laura was seen today for pre-op exam. Diagnoses and all orders for this visit: Preoperative examination (Primary) - Cancel: Glucose; Future - CBC Branch Off w/Diff; Future - X-ray Chest 2 Views; Future - X-ray Chest 2 Views - Add-On Test Request; Future - Add-On Test Request - ECG 12 lead Tear of left acetabular labrum, subsequent encounter Hyperlipidemia, unspecified hyperlipidemia type - Lipid panel; Future Discussed the plan of care with the patient. The patient may proceed with the elective proposed lefthip scope, labral repair, possible pincer resection, chondroplasty, capsule closure, under the care of Dr. Cortes, at [facility] in [place], on December 18, 2018. The patient will hold all [id number] medications at this time and take the remainder of her medications as prescribed.The patient will be notified of her labs, official radiology report of her chest x-ray, and officialcardiology report of her EKG. The patient understands she should be n.p.o. after midnight and have adriver. Subjective HPI: The patient is a pleasant 48-year-old female presenting ambulatory to the clinical setting today forhistory and physical for a left hip scope, labral repair, possible pincer resection, chondroplasty, capsule closure, under the care of Dr. Cortes, at [facility], in [place], on December 18, 2018. The patient reports she has been experiencing bilateral hip pain for the past year, withoutan injury, has been under the care of [facility], where MRIs were completed, with a labral tear of both hips, however, the right hip responded to therapy and she is no longer having any discomfort, and the left hip did not. She reports her left hip pain is worsening, a feeling of [id number].The patient reports she typically does not take anything for pain; however, yesterday after she mowed her lawn, she took a tramadol, which is infrequent. The patient reports she did have a CT scan of her left hip a couple of weeks ago for 3D risk reconstruction. The patient met with Dr. Cortes were treatment options were discussed and she plans on proceeding with preoperative clearance today. No Known Allergies Current Outpatient Medications: ??? omeprazole (PriLOSEC) [address] capsule, Take 1 capsule by mouth daily, Disp: , Rfl: ??? simvastatin (ZOCOR) 20 MG tablet, TAKE ONE TABLET BY MOUTH AT BEDTIME, Disp: 90 tablet, Rfl: 0 ??? tiZANidine (ZANAFLEX) 2 MG tablet, Take 2 mg by mouth if needed, Disp: , Rfl: ??? traMADol (ULTRAM) 50 MG tablet, Take 50 mg by mouth 1 (one) time each day if needed, Disp: , Rfl: ??? traZODone (DESYREL) 50 MG tablet, Take 1 tablet by mouth at bed time, Disp: , Rfl: ??? verapamil ER (VERELAN) 240 MG 24 hr capsule, Take one a day for heart, Disp: 90 capsule, Rfl: 3 Immunization History Administered Date(s) Administered ??? Hepatitis B 08/22/1998, 05/19/2002, 08/18/2002, 09/27/2002 ??? Influenza (IM) Preservative Free 12/22/2009 ? ? Influenza (IM)>3yr Quadrivalent Preservative Free 12/17/2016 ??? Tdap 10/24/2005, 08/29/2017 Past Medical History: Diagnosis Date ??? Allergic ??? Allergic rhinitis ??? Arthritis ??? GERD (gastroesophageal reflux disease) ??? Headache History ??? 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 No stents required. No heart damage. This occurred on 06/18/2010 started on Verapamil and Simvastatin ??? Urinary tract infection ??? Varicella ??? Visual impairment Past Surgical History: Procedure Laterality Date ??? HYSTERECTOMY History Family History Problem Relation Age of Onset ??? Heart failure Father Social History Socioeconomic History ??? Marital status: Spouse name: Not on file ??? Number of children: Not on file ??? Years of education: Not on file ??? Highest education level: Not on file Occupational History ??? Not on file Social Needs ??? Financial resource strain: Not on file ??? Food insecurity: Worry: Not on file Inability: Not on file ??? Transportation needs: Medical: Not on file Non-medical: Not on file Tobacco Use ??? Smoking status: Current Some Day Smoker ??? Smokeless tobacco: Never Used Substance and Sexual Activity ??? Alcohol use: Yes Frequency: Never ??? Drug use: Never ??? Sexual activity: Not on file Lifestyle ??? Physical activity: Days per week: Not on file Minutes per session: Not on file ??? Stress: Not on file Relationships ??? Social connections: Talks on phone: Not on file Gets together: Not on file Attends jew service: Not on file Active member of club or organization: Not on file Attends meetings of clubs or organizations: Not on file Relationship status: Not on file ??? Intimate partner violence: Fear of current or ex partner: Not on file Emotionally abused: Not on file Physically abused: Not on file Forced sexual activity: Not on file Other Topics Concern ??? Not on file Social History Narrative ??? Not on file ROS: No personal or family history of bleeding or clotting disorders. No family history of malignant hyperthermia. GENERAL: No fever, chills, sweats, change in weight, change in appetite and/or fatigue. INTEGUMENTARY: No rashes, lesions, and/or pruritus. HEAD/NECK: No headache or dizziness. EYES: No visual changes. The patient wears glasses and sees an eye doctor on a regular basis. EARS: No hearing loss, pain and/or tinnitus. NOSE: No epistaxis, discharge, sneezing, and/or chronic sinusitis. The patient developed nasal congestion and nasal drainage, clear in color 4 weeks ago, which is clearing and improving. MOUTH/THROAT: No problems with teeth, gums, and/or trouble swallowing. The patient sees a dentist lenin regular basis. CARDIOVASCULAR: The patient has a history of a myocardial infarction, secondary to vasospasms, and is on a calcium channel katie per cardiology recommendations. The patient has a history of hyperlipidemia is currently on Zocor 20 mg daily and due for lipid panel at this time. No chest pain, pressure, palpitations, peripheral edema, lightheadedness, dizziness, presyncope, syncope, and/or cardiac murmurs. RESPIRATORY: The patient reports she developed an upper respiratory infection, with a cough and associated wheezing, and to a lesser extent dyspnea, about 4 weeks ago, and feels she is recovering. No history of sleep apnea. GASTROINTESTINAL: No nausea, vomiting, diarrhea, heartburn, loss of appetite, abdominal pain, hematemesis, constipation, melena, and/or hematochezia. GENITOURINARY: No dysuria, urinary frequency, urgency, nocturia and/or hematuria. 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 ENDOCRINOLOGY: No thyroid dysfunction, diabetes, nor osteoporosis. MUSCULOSKELETAL: See HPI. The patient has had bilateral hip, labral tears, discomfort for the past year without any apparent injury. The patient's right hip pain improved with physical therapy; however, her left hip did not; therefore, they are going to proceed with left hip surgery. NEUROLOGICAL: No numbness, tingling, weakness, migraine headache, and/or seizures. PSYCHIATRIC: No anxiety nor depression. Objective Pulmonary Risk SpO2: 97 % Visit Vitals BP 110/68 (BP Location: Right arm, Patient Position: Sitting) Pulse 66 Temp 36.6 ??C (97.8 ??F) (Temporal) Resp 16 Ht 1.75 m (5' 8.9) Wt 86 kg (189 lb 9.5 oz) SpO2 97% BMI 28.08 kg/m?? Smoking Status Current Some Day Smoker BSA 2.04 m?? GENERAL: The patient is alert, orientated and in no apparent distress. HEET: Head normocephalic. Eyes - pupils round and reactive to light. EOMs intact without nystagmus. Ears - normal canals, normal, pearly lewis TMs bilaterally. Throat - normal oropharynx. Uvula rises midline. No erythema. NECK: Supple. No cervical or posterior lymphadenopathy. No thyromegaly. Neck circumference size 14.5inches. INTEGUMENTARY: Skin is warm and dry. No evidence of lesions. CARDIOVASCULAR: Normal heart rate and rhythm. No murmur. No peripheral edema. Positive peripheral pulses, x4. RESPIRATORY: Initially auscultated a possible inspiratory wheeze in the left upper lobe which cleared upon reexamination. The remainder of her lungs were clear. Oxygen level was 97% on room air. The patient did not cough during the clinical visit today. MUSCULOSKELETAL: The patient moves freely about the room. GASTROENTEROLOGY: Abdomen is soft, no organomegaly, positive bowel sounds. NEUROLOGICAL: The patient is alert and oriented to person, place, time, and situation. PSYCHIATRIC: The patient's affect is appropriate. Radiology Tests to be Ordered: Chest x-ray appears normal official radiology report is pending. EKGm ventricular rate 50 sinus bradycardia otherwise normal, official cardiology report is pending. Laboratory Tests to be Ordered: CBC with differential, potassium, glucose, and lipid panel. Lab on 12/14/2018 Component Date Value Ref Range Status ??? WBC 12/14/2018 6.2 3.5 - 10.5 K/uL Final ??? RBC 12/14/2018 4.36 3.90 - 5.00 M/uL Final ??? Hemoglobin 12/14/2018 13.8 12.0 - 15.5 g/dL Final ??? Hematocrit 12/14/2018 39.8 35.0 - 44.0 % Final ??? Platelets 12/14/2018 329 150 - 450 K/uL Final ??? MCV 12/14/2018 91.3 81.6 - 98.3 fL Final ??? MCH 12/14/2018 31.7 26.0 - 32.0 pg Final ??? MCHC 12/14/2018 34.7 32.0 - 36.0 g/dL Final ??? RDW 12/14/2018 12.6 11.9 - 15.5 % Final ??? Lymphocytes % 12/14/2018 26.2 18.0 - 45.0 % Final ??? Mid-size Cells 12/14/2018 9.2 3.3 - 10.1 % Final ??? Granulocytes/Neutrophils 12/14/2018 64.6 45.8 - 73.7 % Final ??? Lymphocytes Absolute 12/14/2018 1.6 0.9 - 2.9 K/uL Final ??? MIDS Absolute 12/14/2018 0.6 0.2 - 0.8 K/uL Final ??? Granulocytes/Neutrophils Absolute 12/14/2018 4.0 2.1 - 8.7 K/uL Final ??? Cholesterol 12/14/2018 171 0 - 199 mg/dL Final ??? Triglycerides 12/14/2018 150* 0 - 149 mg/dL Final ??? HDL 12/14/2018 59 40 - 60 mg/dL Final ??? LDL Calculated 12/14/2018 82 0 - 99 mg/dL Final ??? Fasting? 12/14/2018 Yes Final ??? Glucose, Bld 12/14/2018 87 70 - 100 mg/dL Final ??? Fasting? 12/14/2018 Yes Final ??? Potassium 12/14/2018 4.0 3.5 - 5.1 mEq/L Final Contact Anesthesiologist regarding: Referrals/Consultations: Immunizations: Tetanus Influenza Comments: You should not drive for at least 24 hours after your surgery, or as instructed by your surgeon. Instructed patient to quit tobacco use. Medication Instructions: verapamil ER (VERELAN) 240 MG 24 hr capsule KEEP taking medication through morning of surgery with asmall sip of water. simvastatin (ZOCOR) 20 MG tablet Do NOT take medication on morning of surgery. Bring this and all your medications to hospital omeprazole (PriLOSEC) [address] capsule KEEP taking medication through morning of surgery with a small sip of water. documented in this encounter Plan of Treatment Not on filedocumented as of this encounter Procedures Procedure Name Priority Date/Time Associated Diagnosis Comme nts ADD-ON TEST REQUEST Routine 12/14/2018 12:09 Preoperative Resu lts for this PM CDT examination procedure are i n the results section. XR CHEST 2 VIEWS Routine 12/14/2018 10:16 Preoperative Results for this AM CDT examination procedure are i n the results section. ECG 12-LEAD Routine 12/14/2018 12:00 Preoperative Results for this AM CDT examination procedure are i n the results section. documented in this encounter Results Add-On Test Request (12/14/2018 12:09 PM CDT) [facility] gist Method Time Signature Add-on Testing SEE BELOW 12/14/2018 [place] 12:14 PM T [facility] Comment: K+ was added to testing. Specimen Anatomical Collection Method Collection Time Receive d Time (Source) Location / / Volume Laterality 12/14/2018 12:09 12/14/2018 PM CDT 12:09 PM CDT Tiffanie Mcgovern APRN, CNP LAB BLOOD ORDERABLES Performing Organization Address City/State/ZIP Code Phon e Number [facility] [address] [place] [id number] X-ray Chest 2 Views (12/14/2018 10:16 AM CDT) Anatomical Region Laterality Modality Body Radiographic Imaging Specimen (Source) Anatomical Collection Method Collection Time Re ceived Time Location / / Volume Laterality 12/14/2018 10:16 AM CDT Impressions 12/14/2018 10:23 AM CDT IMPRESSION: Unremarkable exam. Narrative 12/14/2018 10:23 AM CDT INDICATION: preoperative examination COMPARISON: Chest x-ray September 02, 2018 FINDINGS: CHEST 2 VIEWS No pulmonary vascular cephalization. Hea rt size is within normal limits. ?? The lungs show no confluent infiltrate. ??No pneumothorax or pleural effusion. Procedure Note Ruthann Parmar MD - 12/14/2018 INDICATION: preoperative examination COMPARISON: Chest x-ray September 02, 2018 FINDINGS: CHEST 2 VIEWS No pulmonary vascular cephalization. Hea rt size is within normal limits. The lungs show no confluent infiltrate. No pneumothorax or pleural effusion. IMPRESSION: Unremarkable exam. Tiffanie Mcgovern APRN, CNP IMG XR PROCEDURES CBC Branch Off w/Diff (12/14/2018 10:14 AM CDT) P athologist Signature WBC 6.2 3.5 - 10.5 12/14/2018 [facility] K/uL 10:32 AM CDT [place] RBC 4.36 3.90 - 12/14/2018 [facility] 5.00 M/uL 10:32 AM CDT [place] Hemoglobin 13.8 12.0 - 12/14/2018 [facility] 15.5 g/dL 10:32 AM CDT [place] Hematocrit 39.8 35.0 - 12/14/2018 [facility] 44.0 % 10:32 AM CDT [place] Platelets 329 150 - 450 12/14/2018 [facility] K/uL 10:32 AM CDT [place] MCV 91.3 81.6 - 12/14/2018 [facility] 98.3 fL 10:32 AM CDT [place] MCH 31.7 26.0 - 12/14/2018 [facility] 32.0 pg 10:32 AM CDT [place] MCHC 34.7 32.0 - 12/14/2018 [facility] 36.0 g/dL 10:32 AM CDT [place] RDW 12.6 11.9 - 12/14/2018 [facility] 15.5 % 10:32 AM CDT [place] Lymphocytes % 26.2 18.0 - 12/14/2018 [facility] 45.0 % 10:32 AM CDT [place] Mid-size Cells 9.2 3.3 - 10.1 12/14/2018 [facility] % 10:32 AM CDT [place] Granulocytes/Leslie 64.6 45.8 - 12/14/2018 [facility] trophils 73.7 % 10:32 AM CDT [place] Lymphocytes 1.6 0.9 - 2.9 12/14/2018 [facility] Absolute K/uL 10:32 AM CDT [place] MIDS Absolute 0.6 0.2 - 0.8 12/14/2018 [facility] K/uL 10:32 AM CDT [place] Granulocytes/Leslie 4.0 2.1 - 8.7 12/14/2018 [facility] trophils K/uL 10:32 AM CDT [place] Absolute Specimen Anatomical Collection Method Collection Time Receive d Time (Source) Location / / Volume Laterality Blood 12/14/2018 10:14 12/14/2018 AM CDT 10:14 AM CDT Tiffanie Mcgovern STRATEGIC BUYER, DEBONE SUPERVISOR LAB BLOOD ORDERABLES Performing Organization Address City/State/ZIP Code Phon e Number [facility] [place] [address] [place] [address] (ABNORMAL) Lipid panel (12/14/2018 10:14 AM CDT) P athologist Signature Cholesterol 171 0 - 199 12/15/2018 [facility] mg/dL 1:10 PM [facility] Comment: Recommended by National Cholesterol Education Program (ATP III) -------- Cholesterol Ranges -------- <200 ? Desirable 200-239 ? Borderline high >=240 ? High Triglycerides 150 (A) 0 - 149 mg/dL 12/15/2018 1:10 PM T [facility] Comment: -------- TRIG Ranges -------- <150 ?Normal 150-199 ? Borderline high 200-499 ? High >=500 ? Very high HDL 59 40 - 60 mg/dL 12/15/2018 1:10 PM T [facility] Comment: -------- HDL Ranges -------- <40 ?Low 40-59 ?Normal >=60 ? Optimal LDL Calculated 82 0 - 99 mg/dL 12/15/2018 1:10 PM T [facility] Comment: -------- LDL Ranges -------- <100 ? Optimal 100-129 ?Near optimal/above op timal 130-159 ?Borderline high 160-189 ?High >=190 ?Very high Fasting? Yes 12/14/2018 10:27 AM CDT [facility] Specimen Anatomical Collection Method Collection Time Receive d Time (Source) Location / / Volume Laterality Blood 12/14/2018 10:14 12/15/2018 AM CDT 12:35 PM CDT Tiffanie Mcgovern APRN, CNP LAB BLOOD ORDERABLES Performing Organization Address City/State/ZIP Code Phon e Number [facility] [address] [place] [address] ECG 12 lead (12/14/2018 12:00 AM CDT) Narrative This result has an attachment that is no t available. Tiffanie Mcgovern APRN, CNP ECG ORDERABLES documented in this encounter Visit Diagnoses Diagnosis Preoperative examination - Primary Unspecified pre-operative examination Tear of left acetabular labrum, subseque nt encounter Hyperlipidemia, unspecified hyperlipidem ia type documented in this encounter Care Teams Pipe Line Repairer Relationship Specialty Start Date End Date Tiffanie Mcgovern APRN, CNP PCP - General 10/14/17 07/14/19 [address] [place] [address] documented as of this encounter
--- OUTSIDE RECORDS SUMMARY | 2021-10-22 11:48 | XMS_ITS | Encounter Summary ---
:1970 Author Organization [facility] Address [address] [place] [address] Care Team Providers Name Role Phone Tiffanie Mcgovern APRN, CNP Primary Care Provider [phone] Reason for Visit Reason Comments Sinusitis Encounter Details Date Type Department Care Team Description 01/29/2019 Office Visit Tiffanie Acuna Acute sinusitis, [address], [place] recurrence not [place] [address] specified, [address] [place] [address] unspecified location [phone] (Primary Dx) Social History Tobacco Use Types Packs/Day Years [...] Sign Reading Time Taken Comments Blood Pressure 114/74 01/29/2019 9:34 AM CAR UNLOADER Pulse 76 01/29/2019 9:34 AM CAR UNLOADER Temperature 36.2 ??C (97.1 ??F) 01/29/2019 9:34 AM CAR UNLOADER Respiratory Rate 18 01/29/2019 9:34 AM CAR UNLOADER Oxygen Saturation 95% 01/29/2019 9:34 AM CAR UNLOADER Inhaled Oxygen Concentration - - Weight 88.4 kg (194 lb 14.2 oz) 01/29/2019 9:34 AM CAR UNLOADER Height 175 cm (5' 8.9) 01/29/2019 9:34 AM CAR UNLOADER Body Mass Index 28.87 01/29/2019 9:34 AM CAR UNLOADER documented in this encounter Patient Instructions Patient InstructionsChpatel Mcgovern APRN, CNP - 01/29/2019 9:40 AM CAR UNLOADER Take antibiotic as directed UNLOADER documented in this encounter Progress Notes Tiffanie Mcgovern APRN, CNP - 01/29/2019 9:40 AM CST Estab Patient Visit Subjective Patient ID: Laura Novak is a 48 y.o. female presenting for the following concerns. Chief Complaint Patient presents with ??? Sinusitis HPI: The patient is a pleasant 48 y.o. year old female presenting ambulatory to the clinical setting concerned she has a sinus infection. The patient reports her symptoms started on Friday, 5 days ago, withnasal congestion, nasal drainage thick yellow in color, maxillary sinus pressure bilaterally, a swollen feeling around her right eye, chest tightness with a productive cough of the postnasal drainage. No wheezing but at times she does feel short of breath. The patient reports the postnasal drainage pools in the back of her throat during the night and she coughs up bloody, yellow drainage in the morning. The patient does have upper jaw discomfort, no lower jaw discomfort. The patient reports her throat has been sore, raw and her voice is hoarse. The patient has felt feverish and chilled; no actual temperature taken. The patient has taken DayQuil and NyQuil and is finding some relief, but not sustained relief. No recent travels. Immunizations are up-to-date. ROS: GENERAL: See HPI. The patient has experienced fevers and chills. EYES: The patient reports she feels pressure around her right eye. NOSE: See HPI. The patient reports she had nasal congestion, nasal drainage yellow thick in color. The patient reports she had significant maxillary sinus pressure bilaterally, worse on the right when compared to the left. MOUTH/THROAT: See HPI. The patient reports her throat feels quite raw. The patient reports the postnasal drainage pools in the back of her throat during the night and she wakes up in the morning coughing up thick yellow, bloody drainage. The patient has upper jaw discomfort, no lower jaw discomfort. RESPIRATORY: See HPI. The patient reports she has had a productive cough of the postnasal drainage. She has a sense of chest tightness and dyspnea but no wheezing. The following portions of the patient's chart were reviewed in this encounter and updated as appropriate: Tobacco Allergies Meds Problems Med Hx Surg Hx Fam Hx Current Outpatient Medications: ??? omeprazole (PriLOSEC) 20 [...] MG tablet, Take 1 tablet by mouth if needed , Disp: , Rfl: ??? verapamil ER (VERELAN) 240 MG 24 hr capsule, Take one a day for heart, Disp: 90 capsule, Rfl: 3 ??? amoxicillin (AMOXIL) 875 MG tablet, Take 1 tablet (875 mg total) by mouth 2 (two) times a day for 10 days Take with food., Disp: 20 tablet, Rfl: 0 Objective Visit Vitals BP 114/74 (BP Location: Left arm, Patient Position: Sitting) Pulse 76 Temp 36.2 ??C (97.1 ??F) (Temporal) Resp 18 Ht 1.75 m (5' 8.9) Wt 88.4 kg (194 lb 14.2 oz) SpO2 95% BMI 28.87 kg/m?? Smoking Status Current Some Day Smoker BSA 2.07 m?? GENERAL: The patient is alert, orientated, and in no apparent distress. HEENT: Head normocephalic. Facial swelling noted over the left maxillary sinus area without any erythema or skin color tissue changes. Eyes - pupils round and reactive to light. Ears - normal canals, normal pearly lewis TMs bilaterally. Throat -erythematous oropharynx with evidence of thick, yellow drainage in the posterior oropharynx. Neck - Supple. No cervical or posterior lymphadenopathy. INTEGUMENTARY: Skin is warm and dry. No evidence of lesions. CARDIOVASCULAR: Normal heart rate and rhythm. No murmur. RESPIRATORY: Lungs are clear, bilaterally. No wheezing. DIAGNOSTICS: None. Assessment/Plan Laura was seen today for sinusitis. Diagnoses and all orders for this visit: Acute sinusitis, recurrence not specified, unspecified location (Primary) - amoxicillin (AMOXIL) 875 MG tablet; Take 1 tablet (875 mg total) by mouth 2 (two) times a day for 10 days Take with food. Discussed the plan of care with the patient. Prescribed amoxicillin 875 mg tablet, 1 tablet p.o. twice daily x10 days. If the patient's symptoms persist, worsen, she agrees to contact me. The patient can continue the DayQuil and NyQuil if she finds relief from the medication. The patient agrees and und erstands this plan of care. Tiffanie Mcgovern APRN, CNP UNLOADER documented in this encounter Plan of Treatment Not on filedocumented as of this encounter Visit Diagnoses Diagnosis Acute sinusitis, recurrence not specifie d, unspecified location - Primary documented in this encounter Care Teams Superintendent Operations Division Relationship Specialty Start Date End Date Tiffanie Mcgovern APRN, HR SPECIALIST PCP - General 10/14/17 07/14/19 [address] [place] [address] documented as of this encounter
--- OUTSIDE RECORDS SUMMARY | 2021-10-22 11:48 | XMS_ITS | Encounter Summary ---
:1970 Author Organization [facility] Address [address] [place] [address] Care Team Providers Name Role Phone Tiffanie Mcgovern APRN, CNP Primary Care Provider [phone] Reason for Visit Reason Comments Follow-up Still not feeling well Encounter Details Date Type Department Care Team Description 07/17/2018 Office Visit Tiffanie Acuna Sinusitis, unspecified chron icity, unspecified location (Primary Dx); [address] [place], [place] Shakiness; [place] [address] Other fatigue; [address] [place] [address] Muscle cramps; [phone] Diaphore sis; Motion sickness , initial encounter Social History Tobacco Use Types Packs/Day Years [...] Sign Reading Time Taken Comments Blood Pressure 128/80 07/17/2018 11:20 AM CDT Pulse 64 07/17/2018 11:20 AM CDT Temperature 36.6 ??C (97.8 ??F) 07/17/2018 11:20 AM CDT Respiratory Rate 16 07/17/2018 11:20 AM CDT Oxygen Saturation 98% 07/17/2018 11:20 AM CDT Inhaled Oxygen Concentration - - Weight 85.7 kg (188 lb 15 oz) 07/17/2018 11:20 AM CDT Height 175 cm (5' 8.9) 07/17/2018 11:20 AM CDT Body Mass Index 27.98 07/17/2018 11:20 AM CDT documented in this encounter Patient Instructions Patient InstructionsChpatel Mcgovern APRN, CNP - 07/17/2018 11:20 AM CDT Take the antibiotic as prescribed documented in this encounter Progress Notes Tiffanie Mcgovern APRN, CNP - 07/17/2018 11:20 AM CDT Estab Patient Visit Subjective Patient ID: Laura Novak is a 47 y.o. female presenting for the following concerns. Chief Complaint Patient presents with ??? Follow-up Still not feeling well HPI: The patient is a pleasant 39-year-old female presenting ambulatory to the clinical setting today feeling ill since last Friday, 9 days ago. The patient's symptoms initially started with a prodromal feeling, then significant throat discomfort, which was primarily left-sided. The patient reports she c ontinues to have episodes of throat discomfort primarily in the morning, which has improved. She hasdeveloped significant nasal congestion, nasal drainage, and postnasal drainage inducing a cough of thick, chunky mucus, at times mixed with blood, unable to describe the color of the blood. The patienthas felt short of breath, no wheezing. The patient has had a headache on the top of her head this morning, took Excedrin Migraine, and now the headache is over her temporal areas bilaterally. The patient continues to have episodes of hypoglycemic, 3 episodes this week, as she did in the clinical visit, when she first arrived today, as she was sweaty, shaky, clammy, with a blood glucose of 61, ate peanut butter, with alleviation of her symptoms. 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 The patient had fevers yesterday, has felt hot, cold, sweating, no actual temperature taken. No chills. The patient has she felt tired. No nausea, vomiting, and/or diarrhea. The patient continues to have muscle cramping in her lower extremities, her toes will curl up when she is sitting, causing muscle aches. 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 No rashes. The patient has been taking Nyquil and DayQuil without relief of her persistent symptoms. Non-smoker. The patient will be going on a cruise in a couple of weeks and is requesting a scopolamine patch. ROS: GENERAL: See HPI. The patient has had fevers, chills, and diaphoresis. No actual temperature taken. INTEGUMENTARY: The patient has felt diaphoretic. The patient had unusual bruising on the inner aspect of her thighs. NOSE: The patient has had nasal congestion, nasal congestion, and postnasal drainage. MOUTH/THROAT: The patient has had intermittent throat discomfort for the past 10 days, initially on the left side, and now more significant in the morning, which seems to be improving. RESPIRATORY: See HPI. The patient has had a cough likely induced from the postnasal drainage, without wheezing or increased work of breathing. GASTROINTESTINAL: No nausea, vomiting, and/or diarrhea. MUSCULOSKELETAL: See HPI. The patient reports she has had muscle cramping for the past couple of weeks. ENDOCRINOLOGY: The patient has experienced hypoglycemic episodes, 3 in the past week. The following portions of the patient's chart were reviewed in this encounter and updated as appropriate: Tobacco Allergies Meds Med Hx Surg Hx Fam Hx Soc Hx Objective Visit Vitals BP 128/80 (BP Location: Left arm, Patient Position: Sitting) Pulse 64 Temp 36.6 ??C (97.8 ??F) (Temporal) Resp 16 Ht 1.75 m (5' 8.9) Wt 85.7 kg (188 lb 15 oz) SpO2 98% BMI 27.98 kg/m?? Smoking Status Current Some Day Smoker BSA 2.04 m?? GENERAL: The patient is alert, orientated, and in no apparent distress. HEENT: Head normocephalic. Eyes - pupils round and reactive to light. Ears - normal canals, normal, pearly lewsi TMs bilaterally. Throat - normal oropharynx. Uvula rises midline. No erythema. Neck - Supple. No cervical or posterior lymphadenopathy. No thyromegaly. INTEGUMENTARY: Skin is diaphoretic. RESPIRATORY: Lungs are clear, bilaterally. No wheezing. GASTROENTEROLOGY: Abdomen is soft, no organomegaly, positive bowel sounds. DIAGNOSTICS: CBC with diff, BMP, Lyme's, Liver, HGB A1c, and [place]. [place] negative. Lab Results Component Value Date WBC 9.9 07/17/2018 HGB 14.1 07/17/2018 HCT 39.7 07/17/2018 MCV 91.7 07/17/2018 PLT 302 07/17/2018 Assessment/Plan Laura was seen today for follow-up. Diagnoses and all orders for this visit: Sinusitis, unspecified chronicity, unspecified location (Primary) - amoxicillin (AMOXIL) 875 MG tablet; Take 1 tablet (875 mg total) by mouth 2 (two) times a day for 10 days Take with food. Shakiness - Cancel: Glucose, fasting; Future - Basic metabolic panel; Future - Hemoglobin A1c; Future Other fatigue - Mononucleosis screen; Future - CBC Branch Off w/Diff; Future - Lyme Disease Serology; Future - Liver panel; Future Muscle cramps - Lyme Disease Serology; Future Diaphoresis - CBC Branch Off w/Diff; Future - Lyme Disease Serology; Future Motion sickness, initial encounter - scopolamine (TRANSDERM-SCOP) 1 MG/3DAYS patch 72 hour; Apply 1 patch topically every 3rd (third) day Discussed the plan of care with the patient. Prescribed amoxicillin 875 mg tablet, 1 tablet p.o. twice daily x10 days quantity 20 tablets, with no refills. The patient will notify me if her symptoms persist, worsen, or other symptoms develop. The patient was encouraged to eat small meals often, to prevent hypoglycemic episodes. The patient will apply the scopolamine patch, before she boards the ship and then change every 3 days. The patient will be notified of the lab results. The patient agrees andunderstands this plan of care. Tiffanie Mcgovern APRN, GRAPHICS INTERN documented in this encounter Plan of Treatment Not on filedocumented as of this encounter Results Liver panel (07/17/2018 11:55 AM CDT) P athologist Signature Total Protein 7.8 6.3 - 8.2 07/17/2018 [place] g/dL 7:15 PM [facility] Albumin, Serum 4.4 3.5 - 5.0 07/17/2018 [place] g/dL 7:15 PM [facility] Total Bilirubin <0.7 0.1 - 1.0 07/17/2018 [place] mg/dL 7:15 PM [facility] Bilirubin, <0.1 0.0 - 0.3 07/17/2018 [place] Direct mg/dL 7:15 PM [facility] AST 26 8 - 43 U/L 07/17/2018 [place] 7:15 PM [facility] Alkaline 59 38 - 128 07/17/2018 [place] Phosphatase U/L 7:15 PM [facility] ALT (SGPT) 28 0 - 34 U/L 07/17/2018 [place] 7:15 PM [facility] Specimen Anatomical Collection Method Collection Time Receive d Time (Source) Location / / Volume Laterality Blood (Blood, 07/17/2018 11:55 07/17/2018 6:44 Venous) AM CDT PM CDT Tiffanie Mcgovern COMMERCIAL DECORATOR, GRAPHICS INTERN LAB BLOOD ORDERABLES Performing Organization Address City/State/ZIP Code Phon e Number [facility] [address] [place] [phone] (ABNORMAL) Basic metabolic panel (07/17/2018 11:55 AM CDT) Analysis Performed At Patho logist Time Signature Sodium 137 135 - 145 07/17/2018 [place] mEq/L 7:15 PM [facility] Potassium 4.2 3.5 - 5.1 07/17/2018 [place] mEq/L 7:15 PM [facility] Chloride 102 98 - 107 07/17/2018 [place] mEq/L 7:15 PM [facility] CO2 25 22 - 29 07/17/2018 [place] mmol/L 7:15 PM [facility] Creatinine 0.7 0.4 - 1.2 07/17/2018 [place] mg/dL 7:15 PM [facility] BUN 13 5 - 25 07/17/2018 [place] mg/dL 7:15 PM [facility] Glucose 109 (H) 70 - 100 07/17/2018 [place] mg/dL 7:15 PM [facility] Calcium, 9.9 8.4 - 10.2 07/17/2018 [place] Total,S mg/dL 7:15 PM [facility] Fasting? No 07/17/2018 [facility] 12:02 PM [place] Specimen Anatomical Collection Method Collection Time Receive d Time (Source) Location / / Volume Laterality Blood (Blood, 07/17/2018 11:55 07/17/2018 6:44 Venous) AM CDT PM CDT Tiffanie Mcgovern APRN, CNP LAB BLOOD ORDERABLES Performing Organization Address [facility] Phon e Number [facility] [address] [place] [address] [facility] [address] [place] [address] LABORATORY Lyme Disease Serology (07/17/2018 11:55 AM CDT) [facility] Method Time Signature Lyme Disease Negative Negative 07/20/2018 [facility] Serology 3:45 PM [facility] Comment: No evidence of antibodies to B. burgdorf serenity detected. False negative results may occur in rece ntly infected patients (<=2 weeks) due to low or undet ectable antibody levels to B. burgdorferi. If recent expo sure is suspected, a second sample should be collected and tested in 2-4 weeks. Test Performed by: [facility] [address] [place], [place] [address] Specimen Anatomical Collection Method Collection Time Receive d Time (Source) Location / / Volume Laterality Blood (Blood, 07/17/2018 11:55 07/17/2018 9:07 Venous) AM CDT PM CDT Tiffanie Mcgovern APRN, CNP LAB BLOOD ORDERABLES Performing Organization Address [facility]/ZIP [facility] Phon e Number [facility] see result attachment for specific address (ABNORMAL) CBC Branch Off w/Diff (07/17/2018 11:55 AM CDT) [facility] Method Time Signature WBC 9.9 3.5 - 10.5 07/17/2018 [facility] K/uL 12:02 PM CDT [place] RBC 4.33 3.90 - 07/17/2018 [facility] 5.00 M/uL 12:02 PM CDT [place] Hemoglobin 14.1 12.0 - 07/17/2018 [facility] 15.5 g/dL 12:02 PM CDT [place] Hematocrit 39.7 35.0 - 07/17/2018 [facility] 44.0 % 12:02 PM CDT [place] Platelets 302 150 - 450 07/17/2018 [facility] K/uL 12:02 PM CDT [place] MCV 91.7 81.6 - 07/17/2018 [facility] 98.3 fL 12:02 PM CDT [place] MCH 32.6 (H) 26.0 - 07/17/2018 [facility] 32.0 pg 12:02 PM CDT [place] MCHC 35.5 32.0 - 07/17/2018 [facility] 36.0 g/dL 12:02 PM CDT [place] RDW 12.7 11.9 - 07/17/2018 [facility] 15.5 % 12:02 PM CDT [place] Lymphocytes % 19.1 18.0 - 07/17/2018 [facility] 45.0 % 12:02 PM CDT [place] Mid-size Cells 8.9 3.3 - 10.1 07/17/2018 [facility] % 12:02 PM CDT [place] Granulocytes/Leslie 72.0 45.8 - 07/17/2018 [facility] trophils 73.7 % 12:02 PM CDT [place] Lymphocytes 1.9 0.9 - 2.9 07/17/2018 [facility] Absolute K/uL 12:02 PM CDT [place] MIDS Absolute 0.9 (H) 0.2 - 0.8 07/17/2018 [facility] K/uL 12:02 PM CDT [place] Granulocytes/Leslie 7.1 2.1 - 8.7 07/17/2018 [facility] trophils K/uL 12:02 PM CDT [place] Absolute Specimen Anatomical Collection Method Collection Time Receive d Time (Source) Location / / Volume Laterality Blood (Blood, 07/17/2018 11:55 07/17/2018 Venous) AM CDT 12:02 PM CDT Tiffanie Mcgovern APRN, CNP LAB BLOOD ORDERABLES Performing Organization Address City/[facility]/ZIP Code Phon e Number [facility] [address] [place] [address] Mononucleosis screen (07/17/2018 11:55 AM CDT) athologist Signature Monospot NEGATIVE Negative 07/17/2018 [facility] 12:04 PM CDT [place] Specimen Anatomical Collection Method Collection Time Receive d Time (Source) Location / / Volume Laterality Blood (Blood, 07/17/2018 11:55 07/17/2018 Venous) AM CDT 12:02 PM CDT Tiffanie Mcgovern APRN, CNP LAB BLOOD ORDERABLES Performing Organization Address [facility]/ZIP Code Phon e Number [facility] [place] [address] [place] [address] documented in this encounter Visit Diagnoses Diagnosis Sinusitis, unspecified chronicity, unspe cified location - Primary Shakiness Abnormal involuntary movements Other fatigue Muscle cramps Diaphoresis Generalized hyperhidrosis Motion sickness, initial encounter documented in this encounter Care Teams Woodworking Craftsman Relationship Specialty Start Date End Date Tiffanie Mcgovern APRN, CNP PCP - General 10/14/17 07/14/19 [address] [facility] [place] [address] documented as of this encounter
--- OUTSIDE RECORDS SUMMARY | 2021-10-22 11:48 | XMS_ITS | Encounter Summary ---
:1970 Author Organization [facility] Address [address] [place] [address] Care Team Providers Name Role Phone Tiffanie Mcgovern APRN, CNP Primary Care Provider [phone] Encounter Details Date Type Department Care Team Description 07/12/2018 Orders Only Robert Guerrero Tiffanie Mcgovern, Influenza-like [address] [place] illness (Primary Dx) [place] [address] [facility] [address] [place] [address] Social History Tobacco Use Types Packs/Day Years [...] as of this encounter Visit Diagnoses Diagnosis Influenza-like illness - Primary documented in this encounter Care Teams Grinder Set Up Operator External Relationship Specialty Start Date End Date Tiffanie Mcgovern APRN, CNP PCP - General 10/14/17 07/14/19 [address] [place] [address] documented as of this encounter
--- OUTSIDE RECORDS SUMMARY | 2021-10-22 11:48 | XMS_ITS | Encounter Summary ---
:1970 Author Organization [facility] Address [address] [place] [address] Care Team Providers Name Role Phone Tiffanie Mcgovern APRN, CNP Primary Care Provider Encounter Details Date Type Department Care Team Description 12/16/2018 [place] Only [place], [address] [place] Robert Guerre[place] [address] [address] [phone] [place], [place] [address] Social History Tobacco Use [...] documented as of this encounter Progress Notes Chelsea Romero RN - 12/16/2018 7:57 AM CDT ECG performed at preop visit. Please place order for this. Tiffanie Mcgovern APRN, KYLE - 12/16/2018 7:57 AM CDT Order placed. Chelsea Romero RN - 12/16/2018 7:57 AM CDT Noted. documented in this encounter Plan of Treatment Not on filedocumented as of this encounter Visit Diagnoses Not on filedocumented in this encounter Care Teams Rack Worker Relationship Specialty Start Date End Date Tiffanie Mcgovern APRN, COMMERCIAL ADMINISTRATOR PCP - General 10/14/17 07/14/19 100 [place] [address] documented as of this encounter
--- OUTSIDE RECORDS SUMMARY | 2021-10-22 11:48 | XMS_ITS | Encounter Summary ---
:1970 Author Organization [facility] Address [address] [place] [address] Care Team Providers Name Role Phone Tiffanie Mcgovern APRN, KYLE Primary Care Provider Reason for Visit Reason Comments Med Refill Encounter Details Date Type Department Care Team Description 03/06/2019 [place], Hyperlipidemia, [address] [place] unspecified [place] [address] [address] [facility] hyperlipidemia type [phone] [place], [place] [address] Social History Tobacco Use [...] this encounter Miscellaneous Notes Telephone Encounter - Beth García MA - 03/08/2019 4:13 PM CST Last visit in Provider Department: 12/14/2018 Upcoming appointment with Provider: Visit date not found Last Rx: 12/08/2018 Requested Prescriptions Pending Prescriptions Disp Refills ??? simvastatin (ZOCOR) 20 MG tablet [Pharmacy Med Name: SIMVASTATIN 20MG TABS] 90 tablet 0 Sig: TAKE ONE TABLET BY MOUTH AT BEDTIME Labs: Component Latest Ref Rng & Units 12/14/2018 Cholesterol 0 - 199 mg/dL 171 Triglycerides 0 - 149 mg/dL 150 (A) HDL 40 - 60 mg/dL 59 LDL Calculated 0 - 99 mg/dL 82 Fasting? Yes No future labs pending NATION MACHINE OPERATOR documented in this encounter Plan of Treatment Not on filedocumented as of this encounter Visit Diagnoses Diagnosis Hyperlipidemia, unspecified hyperlipidem ia type documented in this encounter Care Teams Freight Weigher Relationship Specialty Start Date End Date Tiffanie Mcgovern, SAP ADMINISTRATOR, CASE THERAPIST PCP - General 10/14/17 07/14/19 100 [facility] [place] [address] documented as of this encounter
--- OUTSIDE RECORDS SUMMARY | 2021-10-22 11:48 | XMS_ITS | Encounter Summary ---
:1970 Author Organization [facility] Address [address] [place] [address] Care Team Providers Name Role Phone Tiffanie Mcgovern APRN, CNP Primary Care Provider [phone] Encounter Details Date Type Department Care Team Description 02/11/2019 Orders Only Rogelio Guerrero Tiffanie Mcgovern, Sinusitis, [address] [place] unspecified Rogelio Guerrero [place] [address] [facility] chronicity, [address] [place] [address] unspecified location [phone] (Primary Dx) Social History Tobacco Use Types [...] as of this encounter Visit Diagnoses Diagnosis Sinusitis, unspecified chronicity, unspe cified location - Primary documented in this encounter Care Teams Plan Consultant Relationship Specialty Start Date End Date Tiffanie Mcgovern APRN, KYLE PCP - General 10/14/17 07/14/19 100 [place] [address] documented as of this encounter
--- OUTSIDE RECORDS SUMMARY | 2021-10-22 11:48 | XMS_ITS | Encounter Summary ---
:1970 Author Organization [facility] Address [address] [place] [address] Care Team Providers Name Role Phone Tiffanie Mcgovern APRN, CNP Primary Care Provider [phone] Reason for Visit Reason Comments Med Refill Encounter Details Date Type Department Care Team Description 09/02/2018 Refill [place], Hyperlipidemia, [address] [place] unspecified [place] Ramirez [address] [address] [facility] hyperlipidemia type [phone] [place], [place] [address] (Primary Dx) Social History Tobacco Use Types [...] this encounter Miscellaneous Notes Telephone Encounter - Krsytal Rice MA - 09/04/2018 1:57 PM CDT Left detailed message Telephone Encounter - Tiffanie Mcgovern APRN, CNP - 09/04/2018 1:48 PM CDT Please let the patient know that the Zocor has been renewed x90 days and she is due for medication renewal and labs. Thanks Dennis Telephone Encounter - Ana Le MA - 09/04/2018 11:43 AM CDT Simvastatin (Zocor) 20 mg tablet last rx, 08/29/17 # 90, 3 refill Last date med(s) reviewed: 08/12/17 Physical No Appt scheduled Pt due to be seen. Please work with your PSR to help pt set up appt. Please advise on extension until appt. Component Latest Ref Rng & Units 08/29/2017 Fasting? Yes Cholesterol 0 - 199 mg/dL 161 Triglycerides 0 - 149 mg/dL 162 (A) HDL 40 - 60 mg/dL 54 LDL Calculated 0 - 99 mg/dL 75 documented in this encounter Plan of Treatment Not on filedocumented as of this encounter Visit Diagnoses Diagnosis Hyperlipidemia, unspecified hyperlipidem ia type - Primary documented in this encounter Additional Health Concerns Infection Onset Date Last Indicated Resolved Time COVID-19 Rule Out 06/14/2019 06/14/2019 06/14/2019 10: 56 PM CDT COVID-19 Rule Out 02/18/2020 02/18/2020 02/18/2020 4:4 1 PM LEAD BLENDER COVID-19 Rule Out 02/27/2021 02/27/2021 02/27/2021 10: 40 AM LEAD BLENDER COVID-19 Confirmed 02/27/2021 02/27/2021 05/28/2021 8: 17 PM CDT documented as of this encounter Care Teams Payroll Director Relationship Specialty Start Date End Date Tiffanie Mcgovern APRN, TRIM SETTER HELPER PCP - General Family Medicine 02/27/21 [address] [place] [address] documented as of this encounter
--- OUTSIDE RECORDS SUMMARY | 2021-10-22 11:48 | XMS_ITS | Encounter Summary ---
:[address] [facility] Address [address] [place] [address] Care Team Providers Name Role Phone Tiffanie Mcgovern APRN, KYLE Primary Care Provider [phone] Reason for Visit Reason Comments Shortness of Breath Dizziness Encounter Details Date Type Department Care Team Description 09/02/2018 Office Visit [place] Roopa Lopez History of coronary vasospas m (Primary Dx); [address] MD Raheel Shortness of breath [place], [place] [address] [address] [place] [address] Social History Tobacco Use Types Packs/Day Years [...] Sign Reading Time Taken Comments Blood Pressure 122/82 09/02/2018 1:51 PM CDT Pulse 58 09/02/2018 1:51 PM CDT Temperature 36.6 ??C (97.9 ??F) 09/02/2018 1:51 PM CDT Respiratory Rate 20 09/02/2018 1:51 PM CDT Oxygen Saturation 98% 09/02/2018 1:51 PM CDT Inhaled Oxygen Concentration - - Weight 87.9 kg (193 lb 12.6 oz) 09/02/2018 1:51 PM CDT Height 175 cm (5' 8.9) 09/02/2018 1:51 PM CDT Body Mass Index 28.7 09/02/2018 1:51 PM CDT documented in this encounter Progress Notes Roopa Lopez MD - 09/02/2018 2:00 PM CDT Estab Patient Visit Subjective Patient ID: Laura Novak is a 48 y.o. female. HPI The patient is here today because of a 3-day history of being more short of breath a little throat or neck tightness little chest Issues feeling may be just a little lightheaded. The patient is our 48-year-old individual who 9 years ago she had an event where it started out similar to this and gradually got a lot worse as if there was an elephant sitting on her chest she went to the local emergency room and everything was actually perfectly okay her initial troponins were okayEKG okay in approximately 6 hours later as they were watching her her troponins kary they sent her down to [facility] all initial studies and tests were perfectly okay they then wound up doing a cardiac angiogram and this was actually okay however because of the rise of the troponin everything was indicated and then they tested her for possible vasospasm and reproduced spasm of her right coronary art lori and her symptoms. As such she actually did have a heart attack from the vasospasm a small area of heart damage was noted but she is done really quite well with her verapamil 180 mg dose for the last 9 years. 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 She has been nauseous has not thrown up Review of Systems Objective Physical Exam She is alert she is appears comfortable at time she looks like she is had a little prominent catching her mouth and can take a deeper breath in and actually after she stood up on occasion she had to stop hesitate and then moved forward Blood pressure 122/82 pulse is 58 regular rate and rhythm temp 97.5 respirations 20 O2 sats 98% Her pupils are equal conjunctiva clear Throat is clear Neck no neck vein distention no adenopathy no carotid bruits Lungs are clear without wheeze rales or rhonchi Cardiac is regular rate and rhythm with a heart murmur There are abdomen soft nontender no hepatosplenomegaly no epigastric tenderness Extremities are without edema Laboratory tests were not felt to be needed However chest x-ray was done was normal and an EKG that was done was normal We truly had a sense and she did to that this was probably recurrence of her vasospasm episode that she had 9 years ago she classified this has about the level of one quarter of where she was 9 years ago. We talked about giving her on Nitro tablet because this would certainly help with vasospasm but she stated the last time she had nitro she had such a severe headache afterwards that she needed IV Toradol that actually reverse the effects of the nitroglycerin and she declined the nitro We then discussed with her treatment options including going to the emergency room including being further evaluated for observation she really did not quite want to do this so that we then recommendedgoing home and taking her verapamil which she takes in the late evenings of been about almost 18 hours since her dose and recommend she went home to take the 180 mg tablet. I also told her that she needs to go to the ER if this does not improve or gets worse and she agreed I then called her a couple hours later and she was much improved and back back to normal after taking her 180 mg tablet of verapamil. We then called to her pharmacy she will pecan picker on 80 mg immediate release tablet and she will take that tonight before she goes to bed. She will then pecan picker a new tablet for 240 mg 1/day extended release and take that one time per day. If this higher dose helps she does not have to be followed up at this time. We also discussed the potential in the future if this higher dose works we will keep her on this dose but we might even consider getting her the 80 mg tablet rapid acting was that she could cut in half and take acutely if thisepisode occurs again we will see how things go. Assessment/Plan Diagnoses and all orders for this visit: History of coronary vasospasm - verapamil ER (VERELAN) 240 MG 24 hr capsule; Take one a day for heart Shortness of breath - ECG 12 lead - X-ray Chest 2 Views; Future The overall assessment is Chest pain consistent with her history of coronary arterial vasospasm. Plan was as stated documented in this encounter Plan of Treatment Not on filedocumented as of this encounter Procedures Procedure Name Priority Date/Time Associated Diagnosis Comme nts XR CHEST 2 VIEWS Routine 09/02/2018 2:44 PM Shortness of breat h Results for this CDT procedure are i n the results section. ECG 12-LEAD Routine 09/02/2018 2:29 PM Shortness of breath Re sults for this CDT procedure are i n the results section. documented in this encounter Results X-ray Chest 2 Views (09/02/2018 2:44 PM CDT) Anatomical Region Laterality Modality Body Radiographic Imaging Specimen (Source) Anatomical Collection Method Collection Time Re ceived Time Location / / Volume Laterality 09/02/2018 2:44 PM CDT Impressions 09/02/2018 2:47 PM CDT IMPRESSION: Unremarkable exam. Narrative 09/02/2018 2:47 PM CDT INDICATION: Shortness of breath COMPARISON: Chest x-ray February 27, 2015 FINDINGS: CHEST 2 VIEWS No pulmonary vascular cephalization. Hea rt size is within normal limits. ?? The lungs show no confluent infiltrate. ??No pneumothorax or pleural effusion. Procedure Note Ruthann Parmar MD - 09/02/2018 INDICATION: Shortness of breath COMPARISON: Chest x-ray February 27, 2015 FINDINGS: CHEST 2 VIEWS No pulmonary vascular cephalization. Hea rt size is within normal limits. The lungs show no confluent infiltrate. No pneumothorax or pleural effusion. IMPRESSION: Unremarkable exam. Roopa Lopez MD IMG XR PROCEDURES ECG 12 lead (09/02/2018 2:29 PM CDT) Specimen (Source) Anatomical Collection Method Collection Time Re ceived Time Location / / Volume Laterality 09/02/2018 2:29 PM CDT Narrative 09/02/2018 12:00 AM CDT This result has an attachment that is no t available. EKG performed in clinic. Patient tolerat ed well. Paper copy sent for interpretation. D. Raheel Lopez MD ECG ORDERABLES documented in this encounter Visit Diagnoses Diagnosis History of coronary vasospasm - Primary Shortness of breath documented in this encounter Care Teams Checkering Machine Operator Relationship Specialty Start Date End Date Tiffanie Mcgovern APRN, MULTIPLE GAMES DEALER PCP - General 10/14/17 07/14/19 100 [place] [address] documented as of this encounter
--- OUTSIDE RECORDS SUMMARY | 2021-10-22 11:48 | XMS_ITS | Encounter Summary ---
:1970 Author Organization [facility] Address [address] [place] [address] Care Team Providers Name Role Phone Tiffanie Mcgovern APRN, KYLE Primary Care Provider [phone] Encounter Details Date Type Department Care Team Description 07/09/2018 Lab Robert Guerrero Screening for diabetes melli tus; [address] Pharyngitis, unspecified bailey ology; [place] [address] Influenza-like illness [phone] Social History Tobacco Use Types Packs/Day Years [...] Name Priority Date/Time Associated Diagnosis Comme nts RAPID GROUP A STREP Routine 07/09/2018 4:00 PM Pharyngitis, Re sults for this SCREEN CDT unspecified etiology procedu re are in the results section. STREP A CULTURE, Routine 07/09/2018 4:00 PM Pharyngitis, Resul ts for this THROAT CDT unspecified etiology procedu re are in the results section. LYME DISEASE SEROLOGY Routine 07/09/2018 3:56 PM Influenza-lik e Results for this CDT illness procedure are i n the results section. FASTING ? Routine 07/09/2018 3:56 PM Results f or this CDT procedure are i n the results section. MANUAL DIFFERENTIAL Routine 07/09/2018 3:56 PM Pharyngitis, Re sults for this (AFTER VERIF OF AUTO) CDT unspecified etiolog y procedure are in the results section. CBC BRANCH OFFICE Routine 07/09/2018 3:56 PM Pharyngitis, Resu lts for this W/DIFF CDT unspecified etiology procedu re are in the results section. HEMOCUE GLUCOSE Routine 07/09/2018 3:56 PM Result s for this CDT procedure are i n the results section. documented in this encounter Results Strep A culture, throat (07/09/2018 4:00 PM CDT) [facility] Method Time Signature Throat Strep Negative for 07/11/2018 [facility] Culture Group A 6:37 AM CDT [facility] Strep at 48 LABORATORY hrs. Specimen Anatomical Collection Method Collection Time Receive d Time (Source) Location / / Volume Laterality 07/09/2018 4:00 PM 9 CDT 12:21 PM CDT Tiffanie Mcgovern APRN, CNP LAB MICROBIOLOGY - GENERA L ORDERABLES Performing Organization Address City/State/ZIP Code Phon e Number [facility] [address] [place] [address] Rapid strep screen (07/09/2018 4:00 PM CDT) P athologist Signature Strep A Ag, NEGATIVE Negative 07/09/2018 [facility] [place] Rapid 4:13 PM CDT [place] Specimen Anatomical Collection Method Collection Time Receive d Time (Source) Location / / Volume Laterality Swab (Throat 07/09/2018 4:00 PM 9 4:04 Swab) CDT PM CDT Tiffanie Mcgovern APRN, CNP LAB BODY FLUIDS AND STOOL S ORDERABLES Performing Organization Address City/State/ZIP Code Phon e Number [facility] [place] [employer] [address] [place] [address] Lyme Disease Serology (07/09/2018 3:56 PM CDT) [facility] Method Time Signature Lyme Disease Negative Negative 07/11/2018 [facility] Serology 12:29 PM CDT LABORATORIES Comment: No evidence of antibodies to B. burgdorf serenity detected. False negative results may occur in rece ntly infected patients (<=2 weeks) due to low or undet ectable antibody levels to B. burgdorferi. If recent expo sure is suspected, a second sample should be collected and tested in 2-4 weeks. Test Performed by: [facility] [address] [place], [place] [address] Specimen Anatomical Collection Method Collection Time Receive d Time (Source) Location / / Volume Laterality Blood (Blood, 07/09/2018 3:56 PM 07/11/19 19 1:20 Venous) CDT PM CDT Tiffanie Mcgovern APRN, BRIDGE/STRUCTURE INSPECTION TEAM LEADER LAB BLOOD ORDERABLES Performing Organization Address City/State/ZIP Code Phon e Number [facility] see result attachment for specific address (ABNORMAL) Manual Differential (after verif of auto) (07/09/2018 3:56 PM CDT) [facility] gist Method Time Signature Manual PERFORMED 07/10/2018 [place] Differential 1:30 PM [facility] Neutrophils % 86.0 % 07/10/2018 [place] 1:27 PM CDT [facility] Lymphocytes % 9.0 % 07/10/2018 [place] 1:27 PM [facility] Monocytes % 4.0 % 07/10/2018 [place] 1:27 PM [facility] Eosinophils % 1.00 % 07/10/2018 [place] 1:27 PM [facility] Basophils % 0.0 % 07/10/2018 [place] 1:27 PM [facility] Absolute 10.3 (H) 1.7 - 7.0 07/10/2018 [place] Neutrophils K/uL 1:27 PM [facility] Lymphocytes 1.1 0.9 - 2.9 07/10/2018 [place] Absolute K/uL 1:27 PM [facility] Monocytes 0.5 0.3 - 0.9 07/10/2018 [place] Absolute K/uL 1:27 PM [facility] Eosinophils 0.1 0.1 - 0.5 07/10/2018 [place] Absolute K/uL 1:27 PM [facility] Basophils 0.0 0.0 - 0.1 07/10/2018 [place] Absolute K/uL 1:27 PM [facility] Slide Review PERFORMED 07/10/2018 [place] 1:30 PM [facility] RBC Morphology NORMAL 07/10/2018 [place] 1:30 PM [facility] PLT Morphology ADEQUATE 07/10/2018 [place] 1:30 PM [facility] Total Counted 100 07/10/2018 [place] 1:30 PM [facility] Specimen Anatomical Collection Method Collection Time Receive d Time (Source) Location / / Volume Laterality 07/09/2018 3:56 PM 9 CDT 12:04 PM CDT Tiffanie Mcgovern APRN, CNP LAB BLOOD ORDERABLES Performing Organization Address City/[facility]/ZIP Code Phon e Number [facility] [address] [place] [address] Fasting ? (07/09/2018 3:56 PM CDT) athologist Signature Fasting? No 07/09/2018 4:07 [facility] PM CDT [place] Specimen Anatomical Collection Method Collection Time Receive d Time (Source) Location / / Volume Laterality 07/09/2018 3:56 PM 9 4:05 CDT PM CDT Tiffanie Mcgovern APRN, CNP LAB BLOOD ORDERABLES Performing Organization Address City/[facility]/ZIP Code Phon e Number [facility] [place] [address] [place] [address] HemoCue glucose (07/09/2018 3:56 PM CDT) P athologist Signature Glucose, Bld 98 70 - 100 07/09/2018 [facility] mg/dL 4:07 PM CDT [place] Comment: . Specimen Anatomical Collection Method Collection Time Receive d Time (Source) Location / / Volume Laterality 07/09/2018 3:56 PM 9 4:05 CDT PM CDT Tiffanie Mcgovern APRN, CNP LAB BLOOD ORDERABLES Performing Organization Address City/[facility]/ZIP Code Phon e Number [facility] [place] [address] [place] [address] (ABNORMAL) CBC Branch Off w/Diff (07/09/2018 3:56 PM CDT) [facility] gist Method Time Signature WBC 12.0 (H) 3.5 - 10.5 07/09/2018 [facility] K/uL 4:07 PM CDT [place] RBC 4.13 3.90 - 07/09/2018 [facility] 5.00 M/uL 4:07 PM CDT [place] Hemoglobin 13.6 12.0 - 07/09/2018 [facility] 15.5 g/dL 4:07 PM CDT [place] Hematocrit 37.9 35.0 - 07/09/2018 [facility] [place] 44.0 % 4:07 PM CDT [place] Platelets 320 150 - 450 07/09/2018 [facility] K/uL 4:07 PM CDT [place] MCV 91.8 81.6 - 07/09/2018 [facility] 98.3 fL 4:07 PM CDT [place] MCH 32.9 (H) 26.0 - 07/09/2018 [facility] [place] 32.0 pg 4:07 PM CDT [place] MCHC 35.9 32.0 - 07/09/2018 [facility] 36.0 g/dL 4:07 PM CDT [place] RDW 12.3 11.9 - 07/09/2018 [facility] [place] 15.5 % 4:07 PM CDT [place] Lymphocytes % 12.6 (L) 18.0 - 07/09/2018 [facility] [place] 45.0 % 4:07 PM CDT [place] Mid-size Cells 7.4 3.3 - 10.1 07/09/2018 [facility] [place] % 4:07 PM CDT [place] Granulocytes/Leslie 80.0 (H) 45.8 - 07/09/2018 [facility] trophils 73.7 % 4:07 PM CDT [place] Lymphocytes 1.5 0.9 - 2.9 07/09/2018 [facility] Absolute K/uL 4:07 PM CDT [place] MIDS Absolute 0.9 (H) 0.2 - 0.8 07/09/2018 [facility] [place] K/uL 4:07 PM CDT [place] Granulocytes/Leslie 9.6 (H) 2.1 - 8.7 07/09/2018 [facility] [place] trophils K/uL 4:07 PM CDT [place] Absolute Specimen Anatomical Collection Method Collection Time Receive d Time (Source) Location / / Volume Laterality Blood (Blood, 07/09/2018 3:56 PM 07/10/19 19 4:05 Venous) CDT PM CDT Tiffanie Mcgovern APRN, CNP LAB BLOOD ORDERABLES Performing Organization Address City/State/ZIP Code Phon e Number [facility] ROBERT GUERRERO [address] [place] [id number] documented in this encounter Visit Diagnoses Diagnosis Screening for diabetes mellitus Pharyngitis, unspecified etiology Influenza-like illness documented in this encounter Care Teams Java Spring Developer Relationship Specialty Start Date End Date Tiffanie Mcgovern APRN, KYLE PCP - General 10/14/17 07/14/19 100 [facility] [place] [address] documented as of this encounter
--- OUTSIDE RECORDS SUMMARY | 2021-10-22 11:48 | XMS_ITS | Encounter Summary ---
:1970 Author Organization [facility] Address [address] [place] [address] Care Team Providers Name Role Phone Tiffanie Mcgovern APRN, CNP Primary Care Provider [phone] Reason for Visit Reason Comments Muscle Pain Sore Throat Encounter Details Date Type Department Care Team Description 07/09/2018 [place] Pharyngitis, unspecified bailey ology (Primary Dx); [address] M, [place] Screening for diabetes mellitus; [place] [address] Influenza-like illness [address] [place] [address] Social History Tobacco Use Types Packs/Day Years [...] Sign Reading Time Taken Comments Blood Pressure 128/72 07/09/2018 3:30 PM CDT Pulse 70 07/09/2018 3:30 PM CDT Temperature 36.4 ??C (97.5 ??F) 07/09/2018 3:30 PM CDT Respiratory Rate 18 07/09/2018 3:30 PM CDT Oxygen Saturation 97% 07/09/2018 3:30 PM CDT Inhaled Oxygen Concentration - - Weight 87.1 kg (192 lb 0.3 oz) 07/09/2018 3:30 PM CDT Height 175 cm (5' 8.9) 07/09/2018 3:30 PM CDT Body Mass Index 28.44 07/09/2018 3:30 PM CDT documented in this encounter Patient Instructions Patient InstructionsChpatel Mcgovern APRN, CNP - 07/09/2018 3:20 PM CDT Tylenol and/or ibuprofen per label directions Continue to monitor and if worsening symptoms CT scan of the neck documented in this encounter Progress Notes Tiffanie Mcgovern APRN, CNP - 07/09/2018 3:20 PM CDT Estab Patient Visit Subjective Patient ID: Laura Novak is a 47 y.o. female presenting for the following concerns. Chief Complaint Patient presents with ??? Muscle Pain ??? Sore Throat HPI: The patient is a pleasant 47-year-old female presenting ambulatory to the clinical setting today stating she has not felt well for the past couple of days. The patient reports she had a prodromal feeling on Friday, 2 days ago, and then yesterday developed significant throat discomfort, primarily left sided. The patient reports she was clammy, sweaty, and shaky, as if she had low blood sugar, around 11:38 yesterday morning, ate lunch then felt slightly better. The patient redeveloped the same experience this morning, around 10:30, again felt clammy, sweaty, shaky, then ate, but did not feel significantly better. No history of diabetes. The patient has been nauseated without vomiting or abdominalpain. The patient???s appetite has decreased, and she is eating because she knows she has to. The patient developed fevers and chills; no actual temperature taken. The patient has been sweating for thepast 24 hours. The patient has a cough from the postnasal drainage, but not from her lungs. The patient has experienced muscle cramps for the past couple weeks, which are worsening, and most prevalent as she points to her thighs, so significant in her thighs yesterday, she had to stand up during a meeting to alleviate the discomfort. No headache discomfort. The patient reports she had an itchy, rash o n her elbows bilaterally about 2 weeks ago, which seems to be dissipating. The patient reports she was in a mock rescue, last , a week ago, and had ticks crawling all over her, but did not remove one. The patient does have a sensitive area in the right occipital area, which she cannot see to evaluate. The patient is a non-smoker. ROS: GENERAL: See HPI. The patient has had fevers, chills, and diaphoresis for the past 24 hours. No actual temperature taken. The patient's appetite is diminished, and she eats because she knows she has to. INTEGUMENTARY: See HPI. The patient had an itchy rash on her elbows, bilaterally, which erupted 2 weeks ago, and actually is starting to improve. NOSE: Nasal congestion postnasal drainage. MOUTH/THROAT: See HPI. The patient has a significant sore throat for the past 24 hours, more on the left than the right. RESPIRATORY: The patient has a cough from the postnasal drainage without wheezing and/or increased work of breathing. GASTROINTESTINAL: See HPI. The patient has felt nauseated without vomiting, diarrhea, and/or abdominal pain. MUSCULOSKELETAL: The patient reports she has had muscle cramping for the past couple weeks, along her anterior thighs, which is worsening to the point, she had to stand up in a meeting yesterday, because of the cramping. The following portions of the patient's chart were reviewed in this encounter and updated as appropriate: Tobacco Allergies Meds Problems Med Hx Surg Hx Fam Hx Soc Hx Objective Visit Vitals BP 128/72 (BP Location: Left arm, Patient Position: Sitting) Pulse 70 Temp 36.4 ??C (97.5 ??F) (Temporal) Resp 18 Ht 1.75 m (5' 8.9) Wt 87.1 kg (192 lb 0.3 oz) SpO2 97% BMI 28.44 kg/m?? Smoking Status Current Some Day Smoker BSA 2.06 m?? GENERAL: The patient is alert, orientated, in no apparent distress but ill-appearing. HEENT: Head normocephalic. Eyes - pupils round and reactive to light. Ears - normal canals, normal pearly lewis TMs bilaterally. Throat -slightly erythematous oropharynx. Uvula rises midline. No erythema. Neck - Supple. No cervical or posterior lymphadenopathy. INTEGUMENTARY: Examining the patient's elbow, discrete small scabs; She has a small pustule in her right occipital area, with no erythema surrounding it. CARDIOVASCULAR: Normal heart rate and rhythm. No murmur. RESPIRATORY: Lungs are clear, bilaterally. No wheezing. MUSCULOSKELETAL: The patient moves freely about the room. DIAGNOSTICS: Strep negative; throat culture pending. CBC with differential. Glucose 98. Lyme's titre, which is pending. Lab Results Component Value Date WBC 12.0 (H) 07/09/2018 HGB 13.6 07/09/2018 HCT 37.9 07/09/2018 MCV 91.8 07/09/2018 PLT 320 07/09/2018 Assessment/Plan Laura was seen today for muscle pain and sore throat. Diagnoses and all orders for this visit: Pharyngitis, unspecified etiology (Primary) - CBC Branch Off w/Diff; Future - Rapid strep screen; Future Screening for diabetes mellitus - Cancel: Glucose, fasting; Future Influenza-like illness - Lyme Disease Serology; Future Discussed the plan of care with the patient. Recommended she push fluids, take ibuprofen, Tylenol, and if her throat symptoms persist or worsen, I would recommend a CT scan of the neck concerning for aperitonsillar abscess. The patient agrees to call me with any concerns and/or questions she has. Will call the patient with the Lyme's titer results. The patient agrees and understands this plan of care. Tiffanie Mcgovern APRN, INTERNAL AUDIT DIRECTOR documented in this encounter Plan of Treatment Not on filedocumented as of this encounter Results Rapid strep screen (07/09/2018 4:00 PM CDT) P athologist Signature Strep A Ag, NEGATIVE Negative 07/09/2018 [facility] Rapid 4:13 PM CDT [place] Specimen Anatomical Collection Method Collection Time Receive d Time (Source) Location / / Volume Laterality Swab (Throat 07/09/2018 4:00 PM 9 4:04 Swab) CDT PM CDT Tiffanie Mcgovern APRN, CNP LAB BODY FLUIDS AND STOOL S ORDERABLES Performing Organization Address [facility] Code Phon e Number [facility] [place] [address] [place] [address] Lyme Disease Serology (07/09/2018 3:56 PM CDT) [facility] Method Time Signature Lyme Disease Negative Negative 07/11/2018 [facility] Serology 12:29 PM CDT LABORATORIES Comment: No evidence of antibodies to B. burgdorf serenity detected. False negative results may occur in rece ntly infected patients (<=2 weeks) due to low or undet ectable antibody levels to B. burgdorferi. If recent expo sure is suspected, a second sample should be collected and tested in 2-4 weeks. Test Performed by: [facility] [address] [place] [id number] 90 Specimen Anatomical Collection Method Collection Time Receive d Time (Source) Location / / Volume Laterality Blood (Blood, 07/09/2018 3:56 PM 07/11/19 19 1:20 Venous) CDT PM CDT Tiffanie Mcgovern APRN, CNP LAB BLOOD ORDERABLES Performing Organization Address [facility] Code Phon e Number [facility] see result attachment for specific address (ABNORMAL) CBC Branch Off w/Diff (07/09/2018 3:56 PM CDT) [facility] Method Time Signature WBC 12.0 (H) 3.5 - 10.5 07/09/2018 [facility] K/uL 4:07 PM CDT [place] RBC 4.13 3.90 - 07/09/2018 [facility] 5.00 M/uL 4:07 PM CDT [place] Hemoglobin 13.6 12.0 - 07/09/2018 [facility] 15.5 g/dL 4:07 PM CDT [place] Hematocrit 37.9 35.0 - 07/09/2018 [facility] 44.0 % 4:07 PM CDT [place] Platelets 320 150 - 450 07/09/2018 [facility] K/uL 4:07 PM CDT [place] MCV 91.8 81.6 - 07/09/2018 [facility] 98.3 fL 4:07 PM CDT [place] MCH 32.9 (H) 26.0 - 07/09/2018 [facility] 32.0 pg 4:07 PM CDT [place] MCHC 35.9 32.0 - 07/09/2018 [facility] 36.0 g/dL 4:07 PM CDT [place] RDW 12.3 11.9 - 07/09/2018 [facility] 15.5 % 4:07 PM CDT [place] Lymphocytes % 12.6 (L) 18.0 - 07/09/2018 [facility] 45.0 % 4:07 PM CDT [place] Mid-size Cells 7.4 3.3 - 10.1 07/09/2018 [facility] % 4:07 PM CDT [place] Granulocytes/Leslie 80.0 (H) 45.8 - 07/09/2018 [facility] trophils 73.7 % 4:07 PM CDT [place] Lymphocytes 1.5 0.9 - 2.9 07/09/2018 [facility] Absolute K/uL 4:07 PM CDT [place] MIDS Absolute 0.9 (H) 0.2 - 0.8 07/09/2018 [facility] K/uL 4:07 PM CDT [place] Granulocytes/Leslie 9.6 (H) 2.1 - 8.7 07/09/2018 [facility] trophils K/uL 4:07 PM CDT [place] Absolute Specimen Anatomical Collection Method Collection Time Receive d Time (Source) Location / / Volume Laterality Blood (Blood, 07/09/2018 3:56 PM 07/10/19 19 4:05 Venous) CDT PM CDT Tiffanie Mcgovern APRN, CNP LAB BLOOD ORDERABLES Performing Organization Address City/State/ZIP Code Phon e Number [facility] [place] [address] [place] [address] documented in this encounter Visit Diagnoses Diagnosis Pharyngitis, unspecified etiology - Prim yareli Screening for diabetes mellitus Influenza-like illness documented in this encounter Care Teams Restaurant Associate Relationship Specialty Start Date End Date Tiffanie Mcgovern APRN, INTERNAL AUDIT DIRECTOR PCP - General 10/14/17 07/14/19 100 [facility] [place] [address] documented as of this encounter
--- OUTSIDE RECORDS SUMMARY | 2021-10-22 11:48 | XMS_ITS | Encounter Summary ---
:1970 Author Organization [facility] Address [address] [place] [address] Care Team Providers Name Role Phone Tiffanie Mcgovern APRN, DOWEL MACHINE OPERATOR Primary Care Provider [phone] Encounter Details Date Type Department Care Team Description 07/17/2018 Lab [place] Other fatigue; [address] Shakiness; [place] [address] Muscle cramps; [phone] Diaphoresis; Influenza-like illness Social History Tobacco Use Types Packs/Day Years [...] Date/Time Associated Comments Diagnosis GLOMERULAR FILTRATION Routine 07/17/2018 11:55 Shakiness Re sults for this RATE AM CDT procedure are i n the results section. LYME DISEASE SEROLOGY Routine 07/17/2018 11:55 Other fat igue Results for this AM CDT Muscle cramps procedure are in Diaphoresis the results section. CBC BRANCH OFFICE Routine 07/17/2018 11:55 Other fatigue Results for this W/DIFF AM CDT Diaphoresis procedure are i n the results section. MONONUCLEOSIS SCREEN Routine 07/17/2018 11:55 Other fatigue Re sults for this AM CDT procedure are i n the results section. HEPATIC FUNCTION PANEL Routine 07/17/2018 11:55 Other fatigue Results for this AM CDT procedure are i n the results section. BASIC METABOLIC PANEL Routine 07/17/2018 11:55 Shakiness Re sults for this AM CDT procedure are i n the results section. documented in this encounter Results Glomerular filtration rate (GFR) (07/17/2018 11:55 AM CDT) athologist Signature GFR >60 07/17/2018 [facility] 7:15 PM CDT CENTER LABORATORY >60 07/17/2018 [facility] Chilean GFR 7:15 PM CDT CENTER LABORATORY Comment: GFR calculated from serum creatinine v alue Chronic Kidney Disease less than 60 mL/m in/1.73 m2 Kidney Failure less than 15 mL/min/1.73 m2 Note: effective 07/23/06 IDMS-Traceable MDRD Study Equation used. Specimen Anatomical Collection Method Collection Time Receive d Time (Source) Location / / Volume Laterality 07/17/2018 11:55 07/17/2018 AM CDT 11:55 AM CDT Tiffanie Mcgovern APRN, CNP LAB BLOOD ORDERABLES Performing Organization Address City/[facility]/ZIP Code Phon e Number [facility] [address] [place] [id number] Mononucleosis screen (07/17/2018 11:55 AM CDT) athologist Signature Monospot NEGATIVE Negative 07/17/2018 [facility] 12:04 PM CDT [place] Specimen Anatomical Collection Method Collection Time Receive d Time (Source) Location / / Volume Laterality Blood (Blood, 07/17/2018 11:55 07/17/2018 Venous) AM CDT 12:02 PM CDT Tiffanie Mcgovern APRN, CNP LAB BLOOD ORDERABLES Performing Organization Address City/[facility]/ZIP Code Phon e Number [facility] [address] [place] [address] (ABNORMAL) CBC Branch Off w/Diff (07/17/2018 11:55 AM CDT) [facility] Method Time Signature WBC 9.9 3.5 - 10.5 07/17/2018 [facility] K/uL 12:02 PM CDT [place] RBC 4.33 3.90 - 07/17/2018 [facility] 5.00 M/uL 12:02 PM CDT [place] Hemoglobin 14.1 12.0 - 07/17/2018 [facility] 15.5 g/dL 12:02 PM CDT [place] Hematocrit 39.7 35.0 - 07/17/2018 [facility] 44.0 % 12:02 PM CDT [place] Platelets 302 150 - 450 07/17/2018 [facility] K/uL 12:02 PM CDT [place] MCV 91.7 81.6 - 07/17/2018 [facility] 98.3 fL 12:02 PM CDT [place] MCH 32.6 (H) 26.0 - 07/17/2018 [facility] 32.0 pg 12:02 PM CDT [place] MCHC 35.5 32.0 - 07/17/2018 [facility] 36.0 g/dL 12:02 PM CDT [place] RDW 12.7 11.9 - 07/17/2018 [facility] 15.5 % 12:02 PM CDT [place] Lymphocytes % 19.1 18.0 - 07/17/2018 [facility] 45.0 % 12:02 PM CDT [place] Mid-size Cells 8.9 3.3 - 10.1 07/17/2018 [facility] % 12:02 PM CDT [place] Granulocytes/Leslie 72.0 45.8 - 07/17/2018 [facility] trophils 73.7 % 12:02 PM CDT [place] Lymphocytes 1.9 0.9 - 2.9 07/17/2018 [facility] Absolute K/uL 12:02 PM CDT [place] MIDS Absolute 0.9 (H) 0.2 - 0.8 07/17/2018 [facility] K/uL 12:02 PM CDT [place] Granulocytes/Leslie 7.1 2.1 - 8.7 07/17/2018 [facility] trophils K/uL 12:02 PM CDT [place] Absolute Specimen Anatomical Collection Method Collection Time Receive d Time (Source) Location / / Volume Laterality Blood (Blood, 07/17/2018 11:55 07/17/2018 Venous) AM CDT 12:02 PM CDT Tiffanie Mcgovern FOOD AND BEVERAGE INTERN, DOWEL MACHINE OPERATOR LAB BLOOD ORDERABLES Performing Organization Address [facility] Phon e Number [facility] [place] [address] [place] [address] Lyme Disease Serology (07/17/2018 11:55 AM CDT) [facility] gist Method Time Signature Lyme Disease Negative Negative 07/20/2018 [facility] Serology 3:45 PM CDT LABORATORIES Comment: No evidence of antibodies to B. burgdorf serenity detected. False negative results may occur in rece ntly infected patients (<=2 weeks) due to low or undet ectable antibody levels to B. burgdorferi. If recent expo sure is suspected, a second sample should be collected and tested in 2-4 weeks. Test Performed by: [facility] [address] [place], [place] [address] Specimen Anatomical Collection Method Collection Time Receive d Time (Source) Location / / Volume Laterality Blood (Blood, 07/17/2018 11:55 07/17/2018 9:07 Venous) AM CDT PM CDT Tiffanie Mcgovern APRN, CNP LAB BLOOD ORDERABLES Performing Organization Address [facility] Code Phon e Number [facility]IES see result attachment for specific address (ABNORMAL) Basic metabolic panel (07/17/2018 11:55 AM CDT) Analysis Performed At [facility] logist Time Signature Sodium 137 135 - 145 07/17/2018 [place] mEq/L 7:15 PM [facility] CENTER LABORATORY Potassium 4.2 3.5 - 5.1 07/17/2018 [place] mEq/L 7:15 PM [facility] Chloride 102 98 - 107 07/17/2018 [place] mEq/L 7:15 PM [facility] CO2 25 22 - 29 07/17/2018 [place] mmol/L 7:15 PM [facility] Creatinine 0.7 0.4 - 1.2 07/17/2018 [place] mg/dL 7:15 PM [facility] BUN 13 5 - 25 07/17/2018 [place] mg/dL 7:15 PM [facility] Glucose 109 (H) 70 - 100 07/17/2018 [place] mg/dL 7:15 PM [facility] Calcium, 9.9 8.4 - 10.2 07/17/2018 [place] Total,S mg/dL 7:15 PM [facility] Fasting? No 07/17/2018 [facility] 12:02 PM [facility] [place] Specimen Anatomical Collection Method Collection Time Receive d Time (Source) Location / / Volume Laterality Blood (Blood, 07/17/2018 11:55 07/17/2018 6:44 Venous) AM CDT PM CDT Tiffanie Mcgovern APRN, CNP LAB BLOOD ORDERABLES Performing Organization Address City/[facility]/ZIP Code Phon e Number [facility]ERT [place]ERR[place] [address] [place] [address] [facility] [address] [place] [address] LABORATORY Liver panel (07/17/2018 11:55 AM CDT) athologist Signature Total Protein 7.8 6.3 - 8.2 07/17/2018 [place] g/dL 7:15 PM [facility] Albumin, Serum 4.4 3.5 - 5.0 07/17/2018 [place] g/dL 7:15 PM [facility] Total Bilirubin <0.7 0.1 - 1.0 07/17/2018 [place] mg/dL 7:15 PM [facility] Bilirubin, <0.1 0.0 - 0.3 07/17/2018 [place] Direct mg/dL 7:15 PM [facility] AST 26 8 - 43 U/L 07/17/2018 [place] 7:15 PM [facility] Alkaline 59 38 - 128 07/17/2018 [place] Phosphatase U/L 7:15 PM [facility] ALT (SGPT) 28 0 - 34 U/L 07/17/2018 [place] 7:15 PM [facility] Specimen Anatomical Collection Method Collection Time Receive d Time (Source) Location / / Volume Laterality Blood (Blood, 07/17/2018 11:55 07/17/2018 6:44 Venous) AM CDT PM CDT Tiffanie Mcgovern APRN, CNP LAB BLOOD ORDERABLES Performing Organization Address City/[facility]/ZIP Code Phon e Number [facility] [address] [place] [address] documented in this encounter Visit Diagnoses Diagnosis Other fatigue Shakiness Abnormal involuntary movements Muscle cramps Diaphoresis Generalized hyperhidrosis Influenza-like illness documented in this encounter Care Teams Buttonhole Marker Relationship Specialty Start Date End Date Tiffanie Mcgovern APRN, DOWEL MACHINE OPERATOR PCP - General 10/14/17 07/14/19 100 [facility] [place] [address] documented as of this encounter
--- OUTSIDE RECORDS SUMMARY | 2021-10-22 11:48 | XMS_ITS | Encounter Summary ---
:1970 Author Organization [facility] Address [address] [place] [address] Care Team Providers Name Role Phone Tiffanie Mcgovern APRN, KYLE Primary Care Provider [phone] Encounter Details Date Type Department Care Team Description 05/17/2019 Travel Social History Tobacco Use Types Packs/Day [...] on filedocumented in this encounter Care Teams Supervisor Inspection Department Relationship Specialty Start Date End Date Tiffanie Mcgovern APRN, EVENT COORDINATOR MARKETING AND SALES PCP - General 10/14/17 07/14/19 100 [facility] [place] [address] documented as of this encounter
--- OUTSIDE RECORDS SUMMARY | 2021-10-22 11:48 | XMS_ITS | Encounter Summary ---
:1970 Author Organization [facility] Address [address] [place] [address] Care Team Providers Name Role Phone Tiffanie Mcgovern APRN, CNP Primary Care Provider Reason for Visit Reason Onset Date Comments PINK EYE 01/27/2018 Encounter Details Date Type Department Care Team Description 01/27/2018 Telephone CarterTiffanie Perera, PINK EYE [address] [place] [address] 100 [facility] [phone] [place], [place] [address] Social History Tobacco Use [...] Telephone Encounter - Chelsea Romero RN - 01/27/2018 11:43 AM CST Patient informed. OM STOP ATTACHER Telephone Encounter - Tiffanie Mcgovern APRN, KYLE - 01/27/2018 10:58 AM BOTTOM STOP ATTACHER Absolutely the prescription has been sent to [facility]. Happy Thanksgiving. Dennis Alberts OM STOP ATTACHER Telephone Encounter - Krystal Rice MA - 01/27/2018 9:49 AM CST Could you send drops into [facility]? OM STOP ATTACHER Telephone Encounter - Tammi Bar - 01/27/2018 9:30 AM CST Daughter had pink eye and now mother has the same. She is wondering if RX could be called to [facility]. Please advise. OM STOP ATTACHER documented in this encounter Plan of Treatment Not on filedocumented as of this encounter Visit Diagnoses Diagnosis Conjunctivitis, unspecified conjunctivit is type, unspecified laterality - Primary documented in this encounter Care Teams Knotter Hand Relationship Specialty Start Date End Date Tiffanie Mcgovern APRN, EXPEDITER SERVICE ORDER PCP - General 10/14/17 07/14/19 100 [facility] [place] [address] documented as of this encounter
--- OUTSIDE RECORDS SUMMARY | 2021-10-22 11:48 | XMS_ITS | Encounter Summary ---
:1970 Author Organization [facility] Address [address] [place] [address] Care Team Providers Name Role Phone Tiffanie Mcgovern APRN, KYLE Primary Care Provider [phone] Reason for Visit Reason Comments Med Refill Encounter Details Date Type Department Care Team Description 12/04/2018 Refill [place]iffanie Perera, Hyperlipidemia, [address] KYLE [place] unspecified ERNESTO Ramirez 550 09 100 [facility] hyperlipidemia type [phone] [place], [place] [address] Social History Tobacco Use [...] Telephone Encounter - Tatianna Banda LPN - 12/08/2018 9:33 AM CDT Last visit in Provider Department: 09/02/2018 Upcoming appointment with Provider: 12/14/2018 Last Rx: #90, 0 refills 09/04/18 Requested Prescriptions Pending Prescriptions Disp Refills ??? simvastatin (ZOCOR) 20 MG tablet [Pharmacy Med Name: SIMVASTATIN 20MG TABS] 90 tablet 0 Sig: TAKE ONE TABLET BY MOUTH AT BEDTIME Labs: Ref. Range 08/29/2017 08:17 Cholesterol Latest Ref Range: 0 - 199 mg/dL 161 Triglycerides Latest Ref Range: 0 - 149 mg/dL 162 (A) HDL Latest Ref Range: 40 - 60 mg/dL 54 LDL Calculated Latest Ref Range: 0 - 99 mg/dL 75 Vitals: BP Readings from Last 2 Encounters: 09/02/18 122/82 07/17/18 128/80 documented in this encounter Plan of Treatment Not on filedocumented as of this encounter Visit Diagnoses Diagnosis Hyperlipidemia, unspecified hyperlipidem ia type documented in this encounter Care Teams Line Clearance Foreman Relationship Specialty Start Date End Date Tiffanie Mcgovern, LABORATORY EQUIPMENT CLEANER, METALLIC YARN SLITTING MACHINE OPERATOR PCP - General 10/14/17 07/14/19 100 [place] [address] documented as of this encounter
--- OUTSIDE RECORDS SUMMARY | 2021-10-22 11:48 | XMS_ITS | Encounter Summary ---
:1970 Author Organization [facility] Address [address] [place] [address] Care Team Providers Name Role Phone Tiffanie Mcgovern GRIEVANCE AND APPEALS COORDINATOR, PSYCHOLOGY LECTURER Primary Care Provider [phone] Reason for Visit Reason Onset Date Comments [place] 05/18/2019 Encounter Details Date Type Department Care Team Description 05/18/2019 Telephone LettsTiffanie Perera, [place] [address] GRIEVANCE AND APPEALS COORDINATOR, KYLE ERNESTO Ramirez 550 [address] 100 [facility] [phone] [place], [place] [address] Social History Tobacco Use [...] Telephone Encounter - Chelsea Romero RN - 05/18/2019 11:02 AM CDT Patient said that she feels a little worse today, she doesn't have a productive cough but a dry hack. She said her body aches are what is worse and she has diarrhea. Please call patient to advise. Telephone Encounter - Lili Carranza LPN - 05/18/2019 8:35 AM CDT Call Laura and see how she is doing this afternoon. ??She was having a cough/some SOB and symptoms suggestive of the flu though a negative test. ??We did put her on Tamiflu. ??If she is getting a more productive cough I would put her on the Zpak. documented in this encounter Plan of Treatment Not on filedocumented as of this encounter Visit Diagnoses Not on filedocumented in this encounter Additional Health Concerns Infection Onset Date Last Indicated Resolved Time COVID-19 Rule Out 06/14/2019 06/14/2019 06/14/2019 10: 56 PM CDT documented as of this encounter Care Teams Linter Saw Sharpener Relationship Specialty Start Date End Date Tiffanie Mcgovern APRN, PSYCHOLOGY LECTURER PCP - General 10/14/17 07/14/[address] [place] [address] [place] [address] documented as of this encounter
--- OUTSIDE RECORDS SUMMARY | 2021-10-22 11:48 | XMS_ITS | Encounter Summary ---
:1970 Author Organization [facility] Address [address] [place] [address] Care Team Providers Name Role Phone Tiffanie Mcgovern APRN, KYLE Primary Care Provider Reason for Visit Reason Comments Flu Symptoms Encounter Details Date Type Department Care Team Description 05/17/2019 Office Visit Roopa Caldwell Cough (Primary Dx); [address] MD Raheel Body aches; ERNESTO Ramirez [phone] SOB (shortness of breath); [phone] [place]; [place] Fever, unsp ecified fever cause [phone] Social History Tobacco Use Types Packs/Day Years [...] Sign Reading Time Taken Comments Blood Pressure 144/88 05/17/2019 11:20 AM CDT Pulse 86 05/17/2019 11:20 AM CDT Temperature 35.9 ??C (96.7 ??F) 05/17/2019 11:20 AM CDT Respiratory Rate 18 05/17/2019 11:20 AM CDT Oxygen Saturation 96% 05/17/2019 11:20 AM CDT Inhaled Oxygen Concentration - - Weight 89 kg (196 lb 3.4 oz) 05/17/2019 11:20 AM CDT Height 175 cm (5' 8.9) 05/17/2019 11:20 AM CDT Body Mass Index 29.06 05/17/2019 11:20 AM CDT documented in this encounter Progress Notes Roopa Lopez MD - 05/17/2019 11:20 AM CDT Estab Patient Visit Subjective Patient ID: Laura Novak is a 48 y.o. female. HPI the patient is here today secondary to not feeling well over the previous 5 days or so. It started in the upper respiratory system little sinus nasal discharge cough and probably some possible fever is having chills. She has had no specific productive cough she has had that may be a little thicker possible phlegm production but not that much. She does feel little short of breath or chest tightness with cough and just feels quite under the weather. Her joints ache her muscles are tight she just feels pretty down. She did get a flu shot this year she is not necessarily prone to getting bronchitis is and so forth. She is alert and she appears somewhat uncomfortable blood pressures Review of Systems Objective Physical Exam slightly elevated 144/88 her pulse is 86 temp 96.7 O2 sat is 96% on room air Her ears were clear Pupils equal conjunctiva clear Tongue is moist throat is clear Neck no adenopathy Her lungs are perfectly clear without any specific wheeze rales or rhonchi Cardiac is regular rate and rhythm without heart murmur Her white blood count was normal and her rapid influenza test was negative We discussed with her that her symptoms are primarily consistent with most likely an influenza type pattern even though her rapid flu test was negative. She does not have enough evidence for a significant bronchitis despite her cough and some chest tightness as she has minimal phlegm and she thinks ismostly draining from her sinuses As such we will treat her empirically with Tamiflu and we have asked her specifically to call us if she gets worse or she has more of a productive cough. It should be noted she has had no particular travel in the last 6 months and has not been exposed anyone who could potentially have a new stringer virus. I get assessment this cough Assessment/Plan Diagnoses and all orders for this visit: Cough - Rapid influenza A/B antigens; Future Body aches - Rapid influenza A/B antigens; Future - Rapid influenza A/B antigens; Future - oseltamivir (TAMIFLU) 75 MG capsule; Take 1 capsule (75 mg total) by mouth 2 (two) times a day for5 days SOB (shortness of breath) - Rapid influenza A/B antigens; Future Chills - Rapid influenza A/B antigens; Future Fever, unspecified fever cause - Rapid influenza A/B antigens; Future With symptoms consistent with probable influenza-like illness and plan was the Tamiflu as stated. documented in this encounter Plan of Treatment Not on filedocumented as of this encounter Results Rapid influenza A/B antigens (05/17/2019 11:35 AM CDT) athologist Signature Rapid NEGATIVE Negative 05/17/2019 [facility] Influenza A 12:03 PM CDT [place] Rapid NEGATIVE Negative 05/17/2019 [facility] Influenza B 12:03 PM CDT [place] Comment: A negative test is presumptive and does not exclude influenza virus infection. Specimen Anatomical Collection Method Collection Time Receive d Time (Source) Location / / Volume Laterality Swab 05/17/2019 11:35 05/17/2019 (Nasopharynx) AM CDT 11:46 AM CDT Roopa Lopez MD LAB BODY FLUIDS AND STOOLS O RDERABLES Performing Organization Address City/State/ZIP Code Phon e Number [facility] [address] [place] [address] documented in this encounter Visit Diagnoses Diagnosis Cough - Primary Body aches Generalized pain SOB (shortness of breath) Shortness of breath Chills Chills (without fever) Fever, unspecified fever cause documented in this encounter Care Teams Bookie Relationship Specialty Start Date End Date Tiffanie Mcgovern, PAINTER SKI EDGE, EQUIPMENT HIRE MANAGER PCP - General 10/14/17 07/14/19 [address] [facility] [place] [address] documented as of this encounter
--- OUTSIDE RECORDS SUMMARY | 2021-10-22 11:48 | XMS_ITS | Encounter Summary ---
:1970 Author Organization [facility] Address [address] [place] [address] Care Team Providers Name Role Phone Tiffanie Mcgovern VISUAL EDUCATION TEACHER, LEVEL GLASS VIAL FILLER Primary Care Provider [phone] Reason for Visit Reason Onset Date Comments Pre-op H&P 12/16/2018 Encounter Details Date Type Department Care Team Description 12/16/2018 Telephone JulianTiffanie Perera, Pre-op H&P [address] VISUAL EDUCATION TEACHER, LEVEL GLASS VIAL FILLER [place] [address] [address] [facility] [phone] [place], [place] [address] Social History Tobacco Use [...] Notes Telephone Encounter - Alyce Shah - 12/16/2018 4:16 PM CDT Pre-op paperwork faxed to [facility] at [phone] as requested. Telephone Encounter - Chelsea Romero RN - 12/16/2018 3:45 PM CDT Please fax. Telephone Encounter - Tiffanie Mcgovern APRN, KYLE - 12/16/2018 3:32 PM CDT Completed. Please fax. Dennis Alberts Telephone Encounter - Chelsea Romero RN - 12/16/2018 2:54 PM CDT Pre-op physical needs to be signed. ECG no completed yet. Telephone Encounter - Alyce Shah - 12/16/2018 2:44 PM CDT Jackie with [facility] called requesting Pt's Pre-op physical and any EKG and lab work be faxed to [phone] as Pt's surgery is this Friday12/18/18. Any questions please call Jackie at [phone], documented in this encounter Plan of Treatment Not on filedocumented as of this encounter Visit Diagnoses Not on filedocumented in this encounter Care Teams Customer Service Driver Relationship Specialty Start Date End Date Tiffanie Mcgovern APRN, KYLE PCP - General 10/14/17 07/14/19 100 [facility] [place] [address] documented as of this encounter
--- OUTSIDE RECORDS SUMMARY | 2021-10-22 11:48 | XMS_ITS | Encounter Summary ---
:1970 Author Organization [facility] Address [address] [place] [address] Care Team Providers Name Role Phone Tiffanie Mcgovern APRN, KYLE Primary Care Provider [phone] Encounter Details Date Type Department Care Team Description 05/17/2019 Lab [place] SOB (shortness of breath); [address] Cough; [place] [address] [place]; [phone] Fever, unspecif ied fever cause; Body aches Social History Tobacco Use Types Packs/Day Years [...] Diagnosis Comme nts CBC BRANCH OFFICE Routine 05/17/2019 11:58 AM Res ults for this W/DIFF CDT procedure are i n the results section. RAPID INFLUENZA A/B Routine 05/17/2019 11:35 AM SOB (shortness of Results for this ANTIGENS CDT breath) procedure are in Cough the results [place] section. Fever, unspecified fever cause Body aches documented in this encounter Results (ABNORMAL) CBC Branch Off w/Diff (05/17/2019 11:58 AM CDT) [facility] Method Time Signature WBC 5.1 3.5 - 10.5 05/17/2019 [facility] K/uL 12:05 PM CDT [place] RBC 4.19 3.90 - 05/17/2019 [facility] 5.00 M/uL 12:05 PM CDT [place] Hemoglobin 13.1 12.0 - 05/17/2019 [facility] 15.5 g/dL 12:05 PM CDT [place] Hematocrit 36.9 35.0 - 05/17/2019 [facility] 44.0 % 12:05 PM CDT [place] Platelets 276 150 - 450 05/17/2019 [place] [facility] K/uL 12:05 PM CDT [place] MCV 88.1 81.6 - 05/17/2019 [place] [facility] 98.3 fL 12:05 PM CDT [place] MCH 31.3 26.0 - 05/17/2019 [facility] 32.0 pg 12:05 PM CDT [place] MCHC 35.5 32.0 - 05/17/2019 [place] [facility] 36.0 g/dL 12:05 PM CDT [place] RDW 12.1 11.9 - 05/17/2019 [place] [facility] 15.5 % 12:05 PM CDT [place] Lymphocytes % 25.9 18.0 - 05/17/2019 [place] [facility] 45.0 % 12:05 PM CDT [place] Mid-size Cells 11.1 (H) 3.3 - 10.1 05/17/2019 [place] % 12:05 PM CDT [place] Granulocytes/Leslie 63.0 45.8 - 05/17/2019 [place] trophils 73.7 % 12:05 PM CDT [place] Lymphocytes 1.3 0.9 - 2.9 05/17/2019 [place] [facility] Absolute K/uL 12:05 PM CDT [place] MIDS Absolute 0.6 0.2 - 0.8 05/17/2019 [place] K/uL 12:05 PM CDT [place] Granulocytes/Leslie 3.2 2.1 - 8.7 05/17/2019 [place] [facility] trophils K/uL 12:05 PM CDT [place] Absolute Specimen Anatomical Collection Method Collection Time Receive d Time (Source) Location / / Volume Laterality 05/17/2019 11:58 05/17/2019 AM CDT 12:02 PM CDT Roopa Lopez MD LAB BLOOD ORDERABLES Performing Organization Address City/[facility]/ZIP Code Phon e Number [place] [address] [place] [address] Rapid influenza A/B antigens (05/17/2019 11:35 AM CDT) athologist Signature Rapid NEGATIVE Negative 05/17/2019 [place] [facility] Influenza A 12:03 PM CDT [place] Rapid NEGATIVE Negative 05/17/2019 [facility] Influenza B 12:03 PM CDT [place] Comment: A negative test is presumptive and does not exclude influenza virus infection. Specimen Anatomical Collection Method Collection Time Receive d Time (Source) Location / / Volume Laterality Swab 05/17/2019 11:35 05/17/2019 (Nasopharynx) AM CDT 11:46 AM CDT Roopa Lopez MD LAB BODY FLUIDS AND STOOLS O RDERABLES Performing Organization Address City/[facility]/ZIP Code Phon e Number [place] [facility] [place] [address] [place] [address] documented in this encounter Visit Diagnoses Diagnosis SOB (shortness of breath) Shortness of breath Cough Chills Chills (without fever) Fever, unspecified fever cause Body aches Generalized pain documented in this encounter Care Teams Drawing Operator Relationship Specialty Start Date End Date Tiffanie Mcgovern, MUSHROOM SORTER GRADER, DIRECTOR OF MUSIC PCP - General 10/14/17 07/14/19 100 [place] [address] documented as of this encounter
--- OUTSIDE RECORDS SUMMARY | 2021-10-22 11:48 | XMS_ITS | Encounter Summary ---
:[address] [facility] Address [address] [place] [address] Care Team Providers Name Role Phone Tiffanie Mcgovern APRN, CNP Primary Care Provider [phone] Reason for Visit Reason Comments Sleep Aid Encounter Details Date Type Department Care Team Description 04/02/2019 Office Visit Tiffanie Acuna Anxiety (Primary Dx); [address] M, KYLE [place] Stress; ERNEST[place] Ramirez [address] Insomnia, unspecified type; [address] [place] [address] Right hip pain [phone] Social History Tobacco Use Types Packs/Day Years [...] Sign Reading Time Taken Comments Blood Pressure 108/58 04/02/2019 9:47 AM BUTTER MAKER Pulse 72 04/02/2019 9:47 AM BUTTER MAKER Temperature 36.4 ??C (97.5 ??F) 04/02/2019 9:47 AM BUTTER MAKER Respiratory Rate 18 04/02/2019 9:47 AM BUTTER MAKER Oxygen Saturation 96% 04/02/2019 9:47 AM BUTTER MAKER Inhaled Oxygen Concentration - - Weight 89.4 kg (197 lb) 04/02/2019 9:47 AM BUTTER MAKER Height 175 cm (5' 8.9) 04/02/2019 9:47 AM BUTTER MAKER Body Mass Index 29.18 04/02/2019 9:47 AM BUTTER MAKER documented in this encounter Patient Instructions Patient InstructionsChpatel Mcgovern APRN, CNP - 04/02/2019 9:40 AM BUTTER MAKER Zoloft 25 mg daily Tramadol for severe pain Trazodone 50 mg as needed Ativan 0.5 mg daily as needed for severe anxiety ER MAKER documented in this encounter Progress Notes Tiffanie Mcgovern APRN, CNP - 04/02/2019 9:40 AM CST Estab Patient Visit Subjective Patient ID: Laura Novak is a 48 y.o. female presenting for the following concerns. Chief Complaint Patient presents with ??? Sleep Aid HPI: The patient is a pleasant 48 y.o. year old female presenting ambulatory to the clinical setting withhigh levels of stress leading to insomnia and anxiety. The patient???s stepmother fell and fracturedher neck on March 13, 2019, was diagnosed with a UTI and Paget's disease, with an unclear prognosis at this time. The patient's stepmother is in a correction with a declining memory, likely early dementia, which has not been diagnosed. The patient reports she is going to be moving her biological mother from [place] to [place], next week, to assist her with her cares. The patient feels she needs to be an advocate for both her mother and her stepmother. The patient reports the cumulation of these responsibilities has certainly increased her stress, anxiety level, which has lead to insomnia, as she is sleeping poorly. The patient feels her stress level rises when she is making medical decisions for her step mother, then questions the decisions, always wanting to do the right thing, when in fact there may not be a right answer. The patient internalizes conversations and feels she is failing.The patient reports on Friday morning, 2 days ago, she experienced a panic attack, when her heart was racing, and she had burning her arms, which were numb, shaky, she could not catch her breath, and was overwhelmed with anxiety, a true panic attack. 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 She reports her attention to detail and her concentration has decreased. The patient feels as if the whole world is caving in, making it difficult for her to function, and she has never felt like this before. The patient reports she was diagnosed with depression after her daughter, who is 19 years old was born, and has not been depressed since. The patient reports she is not taking trazodone as she truly forgot it had been prescribed. The patient does have a sister who resides in [place], who has had mental health issues, and is not sharing in the responsibilities of caring for their mother. The patient is not suicidal nor has ever been suicidal. The patient denies any recreational drug use. No alcohol. Non-smoking. The patient filled out aPHQ-9 and GUSTAVO-7 form. The patient had a left labrum tear repaired in December,. The patient is now having pain in her right hip as well, with similar symptoms, and knows she has bursitis, and a likely a labrum tear, andis not able to seek medical attention at this time. The patient reports her right hip pain has been keeping her awake, and she is infrequently taking tramadol when her pain level increases beyond an acceptable, intolerable pain level. She is requesting a prescription renewal for Tramadol, and understands the addictive potential of this medication. ROS: GENERAL: See HPI. The patient is experiencing insomnia from her high levels of stress and anxiety. MUSCULOSKELETAL: See HPI. The patient had a left labrum tear repaired in December,. The patient has developed similar discomfort in her right hip, and knows she has bursitis, which keeps her awake when the pain is severe. PSYCHIATRIC: See HPI. The patient has been experiencing high levels of stress, anxiety, and had a panic attack on Friday morning, 2 days ago. The patient???s stress is related to the responsibility ofcaring for both her stepmother and mother, causing her to feel overwhelmed. The following portions of the patient's chart were reviewed in this encounter and updated as appropriate: Tobacco Allergies Meds Problems Med Hx Surg Hx Fam Hx Current Outpatient Medications: ??? simvastatin (ZOCOR) 20 MG tablet, TAKE ONE TABLET BY MOUTH AT BEDTIME, Disp: 90 tablet, Rfl: 2 ??? traMADol (ULTRAM) 50 MG tablet, Take 1 tablet (50 mg total) by mouth every 8 (eight) hours if needed for severe pain for up to 7 days, Disp: 30 tablet, Rfl: 0 ??? traZODone (DESYREL) 50 MG tablet, Take 1 tablet (50 mg total) by mouth every night 1 to 2 nightly, Disp: 90 tablet, Rfl: 3 ??? verapamil ER (VERELAN) 240 MG 24 hr capsule, Take one a day for heart, Disp: 90 capsule, Rfl: 3 ??? LORazepam (ATIVAN) 0.5 MG tablet, Take 1 tablet (0.5 mg total) by mouth 1 (one) time each day ifneeded for anxiety, Disp: 10 tablet, Rfl: 1 ??? omeprazole (PriLOSEC) [address] capsule, Take 1 capsule by mouth daily, Disp: , Rfl: ??? sertraline (ZOLOFT) 25 MG tablet, Take 1 tablet (25 mg total) by mouth 1 (one) time each day, Disp: 30 tablet, Rfl: 1 Objective Visit Vitals BP 108/58 (BP Location: Right arm, Patient Position: Sitting) Pulse 72 Temp 36.4 ??C (97.5 ??F) (Temporal) Resp 18 Ht 1.75 m (5' 8.9) Wt 89.4 kg (197 lb) SpO2 96% BMI 29.18 kg/m?? Smoking Status Current Some Day Smoker BSA 2.08 m?? GENERAL: The patient is alert, orientated, and in no apparent distress. MUSCULOSKELETAL: The patient moves freely about the room. PSYCHIATRIC: The patient's affect is appropriate. The patient became teary-eyed when discussing her mother's and her stepmother's prognoses. The patient's PHQ-9 score was 10 and her GUSTAVO-7 score was 12 today. DIAGNOSTICS: None. Assessment/Plan Encounter Diagnoses Name Primary? Anxiety Yes ??? Stress ??? Insomnia, unspecified type ??? Right hip pain Discussed the plan of care with the patient. Prescribed Zoloft 25 mg daily at bedtime, Ativan 0.5 mgdaily as needed for severe anxiety, quantity 10 tablets for 30 days, with 1 refill, trazodone 50 mg at bedtime for insomnia, and tramadol 50 mg every 8 hours as needed for severe right hip pain, quantity 30 tablets, for 7 days, with no refills. The patient agrees to follow-up in 1 month. The patient agrees and understands this plan of care. Tiffanie Mcgovern APRN, KYLE ER MAKER documented in this encounter Plan of Treatment Not on filedocumented as of this encounter Visit Diagnoses Diagnosis Anxiety - Primary Anxiety state, unspecified Stress Other psychological or physical stress, not elsewhere classified Insomnia, unspecified type Right hip pain Pain in joint, pelvic region and thigh documented in this encounter Care Teams Hide And Skin Fleshing Machine Operator Relationship Specialty Start Date End Date Tiffanie Mcgovern APRN, KYLE PCP - General 10/14/17 07/14/19 100 [facility] [place] [address] documented as of this encounter
--- OUTSIDE RECORDS SUMMARY | 2021-10-22 11:48 | XMS_ITS | Encounter Summary ---
:1970 Author Organization [facility] Address [address] [place] [address] Care Team Providers Name Role Phone Tiffanie Mcgovern DELINQUENCY PREVENTION SOCIAL WORKER, WASTEWATER PROCESS ENGINEER Primary Care Provider [phone] Reason for Visit Reason Onset Date Comments status update 05/19/2019 Encounter Details Date Type Department Care Team Description 05/19/2019 Telephone Tiffanie Acuna, status update [address] DELINQUENCY PREVENTION SOCIAL WORKER, KYLE ERNESTO Ramirez [address] [facility] [phone] [place], [place] [address] Social History Tobacco Use [...] Notes Telephone Encounter - Alyce Shah - 05/20/2019 3:59 PM CDT Note picked up by Pt's , Clint. Telephone Encounter - Chelsea Romero RN - 05/19/2019 3:23 PM CDT Patient informed, clint will pharmacy picking technician note. Telephone Encounter - Roopa Lopez MD - 05/19/2019 3:04 PM CDT Work note written. Laura can pharmacy picking technician or ask her where to fax this to. Telephone Encounter - Chelsea Romero RN - 05/19/2019 2:53 PM CDT Patient is not currently on a zpak, please send to Family la[facility]yn. She is requesting a note through Friday. Patient will call if she isn't better to make an appointment for Friday. Telephone Encounter - Roopa Lopez MD - 05/19/2019 2:40 PM CDT I would have her continue with the Tamiflu and the Zpak. If she needs a work note for this coming Friday we can extend her previous note. If she isn't much better by the end of I would recheckher on Friday with blood counts and possible chest x-ray. Telephone Encounter - Chelsea Romero RN - 05/19/2019 2:26 PM CDT Patient reports today she woke up with a headache, chills, and body aches. She said that she thinks its worse than when she saw you on Friday. Patient hasn't taken her temperature but she said she feels febrile. Telephone Encounter - Alyce Shah - 05/19/2019 1:51 PM CDT Pt called, per Dr. Lopez request, to give an update on how she is doing. Pt can be reached at [phone]. documented in this encounter Plan of Treatment Not on filedocumented as of this encounter Visit Diagnoses Diagnosis Bronchitis - Primary Bronchitis, not specified as acute or ch ronic documented in this encounter Care Teams Bookseamer Blindstitch Relationship Specialty Start Date End Date Tiffanie Mcgovern, DELINQUENCY PREVENTION SOCIAL WORKER, WASTEWATER PROCESS ENGINEER PCP - General 10/14/17 07/14/19 [address] [facility] [place] [address] documented as of this encounter
--- OUTSIDE RECORDS SUMMARY | 2021-10-22 11:48 | XMS_ITS | Encounter Summary ---
:1970 Author Organization [facility] Address [address] [place] [address] Care Team Providers Name Role Phone Tiffanie Mcgovern APRN, SAFETY AND SECURITY OFFICER Primary Care Provider [phone] Reason for Visit Reason Onset Date Comments TC FOLLOW UP 07/09/2018 Encounter Details Date Type Department Care Team Description 07/09/2018 Telephone Tiffanie Acuna TC FOLLOW UP [address] LAWN MOWER MECHANIC, KYLE ERNESTO Ramirez [address] 100 [facility] [phone] [place], [place] [address] Social History Tobacco Use [...] this encounter Miscellaneous Notes Telephone Encounter - Na Emmanuel RN - 07/11/2018 8:12 AM CDT Negative culture at 48 hours Telephone Encounter - Lili Carranza LPN - 07/09/2018 4:24 PM CDT STREP Patient #: [id number] Pharmacy: [facility] medication of choice if positive- The provider will call patient if positive and will prescribed if positive. documented in this encounter Plan of Treatment Not on filedocumented as of this encounter Visit Diagnoses Not on filedocumented in this encounter Care Teams Olive Packer Relationship Specialty Start Date End Date Tiffanie Mcgovern APRN, SAFETY AND SECURITY OFFICER PCP - General 10/14/17 07/14/[address] [place], [place] [address] [address] documented as of this encounter
--- OUTSIDE RECORDS SUMMARY | 2021-10-22 11:50 | XMS_ITS | Encounter Summary ---
:1970 Author Organization [facility] Address [address] [place] [address] Care Team Providers Name Role Phone Elsewhere, Pcp Primary Care Provider Unavailable Encounter Details Date Type Department Care Team Description 01/15/2021 Orders Only RST PCP [facility] Lili Tobar M.D. [address] [place], [place] [phone] (Wo rk) Social History Tobacco Use Types Packs/Day Years Used Date Smoking Tobacco: Former Cigarettes Smokeless Tobacco: Never Comments: occasional pack/year Alcohol Use Standard Drinks/Week Comments Yes 2 (1 standard drink = 0.6 oz pure alcoho l) Alcohol Habits Answer Date Recorded How often do you have a drink containing alcohol? 2-3 times a week 06/22/2019 How many drinks containing alcohol do you have on a 1 or 2 06/22/2019 typical day when you are drinking? How often do you have six or more drinks on one Less than mo nthly 06/22/2019 occasion? Comment: Not asked Social Isolation Answer Date Recorded In a typical week, how many times do you More than three john es a week 06/22/2019 talk on the phone with family, friends, or neighbors? How often do you get together with friends Twice a week 06/22/2019 or relatives? How often do you attend mandaeism or More than 4 times per year 06/22/2019 mandaeism services? Do you belong to any clubs or No 06/22/2019 organizations such as mandaeism groups, unions, fraternal or athletic groups, or school groups? How often do you attend meetings of the Never 06/22/2019 clubs or organizations you belong to? Are you now , , , 06/22/2019 , never or living with a partner? Physical Activity Answer Date Recorded On average, how many days per week do you engage in moderate to 0 days 06/22/2019 strenuous exercise (like walking fast, running, jogging, dancing, swimming, biking, or other activities that cause a light or heavy sweat)? On average, how many minutes do you engage in exercise at th is 0 min 06/22/2019 level? Stress Answer Date Recorded Do you feel stress - tense, restless, nervous, or anxious, o r Very much 06/22/2019 unable to sleep at night because your mind is troubled all the time - these days? Financial Resource Strain Answer Date Recorded How hard is it for you to pay for the very basics like Not v lori hard 06/22/2019 food, housing, medical care, and heating? Food Insecurity Answer Date Recorded Within the past 12 months, you worried that your food would Never true 06/22/2019 run out before you got money to buy more. Within the past 12 months, the food you bought just didn't N ever true 06/22/2019 last and you didn't have money to get more. Transportation Needs Answer Date Recorded In the past 12 months, has lack of transportation kept you f rom No 06/22/2019 medical appointments or from getting medications? In the past 12 months, has lack of transportation kept you f rom No 06/22/2019 meetings, work, or getting things needed for daily living? Education Answer Date Recorded What is the highest level of school Associate degree: academ [employer] program 06/22/2019 you have completed or the highest degree you have received? Sex Assigned at Date Recorded Not on file documented as of this encounter Plan of Treatment Not on filedocumented as of this encounter Visit Diagnoses Not on filedocumented in this encounter Additional Health Concerns Assessment Noted Time PHQ-9 Depression Total Score: 3 09/15/2015 2:08 PM CDT documented as of this encounter Care Teams Substation Operator Transforming Relationship Specialty Start Date End Date Elsewhere, Pcp PCP - General Internal Medicine 06/08/19 06/15/21 documented as of this encounter
--- OUTSIDE RECORDS SUMMARY | 2021-10-22 11:50 | XMS_ITS | Encounter Summary ---
:1970 Author Organization [facility] Address [address] [place] [address] Care Team Providers Name Role Phone Elsewhere, Pcp Primary Care Provider Unavailable Reason for Referral Specialty Diagnoses / Procedures Referred By Contact Refer red To Contact Lili Brown M.D. [facility] [address] [place] [phone] Referral ID Status Reason Start Date Expiration Date Visits Requ ested Visits Authorized MANAGER Encounter Details Date Type Department Care Team Description 01/15/2021 Orders Only RST PCP [facility] Lili Brown M.D. [address] [place] [phone] (Wo rk) Social History Tobacco [...] or relatives? How often do you attend yazidism or More than 4 times per year 06/22/2019 presybeterian services? Do you belong to any clubs or No 06/22/2019 organizations such as yazidism groups, unions, fraternal or athletic groups, or [...] highest level of school Associate degree: academ [employer] program 06/22/2019 you have completed or the highest degree you have received? Sex Assigned at Date Recorded Not on file documented as of this encounter Plan of Treatment Scheduled Referrals Name Type Priority Associated Order Schedule Diagnoses Covid immunization Outpatient Referral Routine Ex pected: office visit Booster 021 (Approximate), Expires: 01/15/2022 documented as of this encounter Visit Diagnoses Not on filedocumented in this encounter Additional Health Concerns Assessment Noted Time PHQ-9 Depression Total Score: 3 09/15/2015 2:08 PM CDT documented as of this encounter Care Teams Group Art Supervisor Relationship Specialty Start Date End Date Elsewhere, Pcp PCP - General Internal Medicine 06/08/19 06/15/21 documented as of this encounter
--- OUTSIDE RECORDS SUMMARY | 2021-10-22 11:50 | XMS_ITS | Encounter Summary ---
:1970 Author Organization [facility] Address [address] [place] [address] Care Team Providers Name Role Phone Elsewhere, Pcp Primary Care Provider Unavailable Reason for Referral Outpatient (Routine) - Closed Specialty Diagnoses / Procedures Referred By Contact Refer red To Contact Diagnoses Pain Leg Right Remberto Prasad, C.N.P. [facility] Region Procedures US Lower Extremity Veins Right [address] [place] [address] Referral ID Status Reason Start Date Expiration Date Visits Requ ested Visits Authorized [id number] Closed 06/18/2021 06/18/2022 1 1 Reason for Visit Reason Comments Leg Pain Pt presents to ED with right leg pain that started 06/14/21. Pt reports pain behind right knee and into r ight calf. Encounter Details Date Type Department Care Team Description 06/18/2021 Emergency [place] [facility] Remberto Prasad Pain Leg Right (Primary Department C.N.P. Dx) [address] [place] [address] [phone] Social History Tobacco Use Types Packs/Day Years [...] or relatives? How often do you attend judaism or More than 4 times per year 06/22/2019 alevism services? Do you belong to any clubs or No 06/22/2019 organizations such as judaism groups, unions, fraternal or athletic groups, or [...] the highest level of school Associate degree: [employer] program 06/22/2019 you have completed or the highest degree you have received? Sex Assigned at Date Recorded Not on file documented as of this encounter Last Filed Vital Signs Vital Sign Reading Time Taken Comments Blood Pressure 151/83 06/18/2021 10:15 AM CDT Pulse 62 06/18/2021 10:20 AM CDT Temperature - - Respiratory Rate - - Oxygen Saturation 98% 06/18/2021 10:20 AM CDT Inhaled Oxygen Concentration - - Weight 90 kg (198 lb 6.6 oz) 06/18/2021 10:14 AM CDT Height - - Body Mass Index 29.22 09/24/2018 10:06 AM CDT documented in this encounter Discharge Instructions Discharge InstructionsRemberto Prasad C.N.P. - 06/18/2021 12:18 PM CDT I suspect your pain likely musculoskeletal cause. However, given concern for possible DVT as well, and ultrasound has been ordered in the outpatient setting. If the ultrasound result is positive you will be notified. If negative, consider follow-up primary care providers next week for further evaluation of your pain. For pain control: Tylenol 500 mg every 4 hours as needed. Ibuprofen 400 mg every 8 hours as needed. Over the counter lidocaine or salonpas every 12 hours as needed. Flexeril 10 mg 3 times a day as needed but do not drink alcohol or operate machinery as it does cause drowsiness. If you develop complete loss of sensation, severe 10/10 pain, or worsening symptoms, you can always return to the emergency department for further evaluation. documented in this encounter Medications at Time of Discharge Medication Sig Dispensed Refills Start Date End Date cyclobenzaprine (FLEXERIL) Take 1 tablet (10 mg 21 tablet 0 06/18/2021 10 mg tablet total) by mouth 3 (three) times a day as needed for muscle spasms for up to 10 days. levothyroxine (SYNTHROID, TAKE ONE TABLET BY 0 LEVOTHROID) 100 mcg tablet MOUTH DAILY - 6 DAYS OF THE WEEK FROM FRIDAY THRU FRIDAY , AND TAKE ONE AND ONE-HALF TABLETS ON FRIDAY. LORazepam (ATIVAN) 0.5 mg Take 0.5 mg by mouth 0 04/02/2019 tablet daily as needed. nabumetone (RELAFEN) 500 Take 500 mg by mouth 0 0 08/12/2018 mg tablet as needed for pain. omeprazole (PriLOSEC) 20 Take 1 capsule by 0 10/[address] capsule mouth daily. ondansetron (ZOFRAN) 4 mg May take one tab 0 09/07 tablet every 8 hours if needed for nausea sertraline (ZOLOFT) 50 mg TAKE ONE TABLET BY 0 tablet MOUTH EVERY MORNING FOR ANXIETY AND DEPRESSION simvastatin (ZOCOR) 20 mg Take 20 mg by mouth 0 0 09/04/2018 tablet daily. traZODone (DESYREL) 50 mg Take 50 mg by mouth 0 0 08/12/2018 tablet Medrol Dose Pack scheduling ONLY. verapamil (VERELAN) 240 mg Take 240 mg by mouth 0 09/02/2018 24 hr capsule daily. documented as of this encounter ED Notes Remberto Prasad C.NMaggie - 06/18/2021 10:22 AM CDT Images from the original note were not included. SUBJECTIVE CHIEF COMPLAINT/REASON FOR VISIT Leg Pain (Pt presents to ED with right leg pain that started 06/14/21. Pt reports pain behind right knee and into right calf.) HISTORY OF PRESENT ILLNESS Laura Novak is a 50 y.o. female who presents to the ED concerning for right calf pain. Patientreports she has been having pain to the back of her knee radiating down to the right calf since June 14, 2021. She does endorse pain on palpation. She denies any recent travel, being on estrogen, recent surgery, or prolonged immobilization. She denies any history of DVT. Denies any fever, chills, or chest pain. No other complaint noted. REVIEW OF SYSTEMS Constitutional: Negative for chills and fever. HENT: Negative for facial swelling. Eyes: Negative for kimberli-orbital edema. Respiratory: Negative. Negative for cough. Cardiovascular: Negative for chest pain and leg swelling. Gastrointestinal: Negative. Genitourinary: Negative for dysuria, flank pain, frequency and urgency. Musculoskeletal: Negative. Right leg pain Skin: Negative. Neurological: Negative. Psychiatric/Behavioral: Negative. All other systems reviewed and are negative. OBJECTIVE Initial Vitals Temp Pulse Rate Heart Rate Resp Blood Pressure SpO2 -- 06/18/21 1015 -- -- 06/18/21 1015 06/18/21 1015 62 151/83 96 % Pain Score 06/18/21 1027 4 PHYSICAL EXAMINATION Constitutional: Nursing note and vitals reviewed. She appears not lethargic. No distress. HENT: Head: Normocephalic. Nose: Nose normal. Eyes: Conjunctivae are normal. Neck: No tracheal deviation present. Pulmonary/Chest: Effort normal. Abdominal: exhibits no distension. Musculoskeletal: Right lower leg: Tenderness present. No swelling, deformity, lacerations or bony tenderness. No edema. Right ankle: Normal. Legs: Comments: Tenderness on palpation along the right posterior knee. No obvious mass or swelling notedposteriorly. No swelling of the right lower extremity no. No rerythema or warmth noted. Neurological: Alert. Skin: Skin is warm and dry. She is not diaphoretic. Psychiatric: She has a normal mood and affect. ASSESSMENT/PLAN IMPRESSION AND PLAN Differential diagnoses includes the life threatening complication of DVT, compartment syndrome, Necrotizing Fasciitis. Other diagnoses considered included fractures, radiculopathy, phlebitis, arthritis, tendonitis, sprain and strain. Patient presents concerning for right leg pain. On exam, there is no swelling, erythema, or warmth noted to the right lower extremity. No unilateral leg swelling noted. No rash noted. No masses noted posterior to the right knee. Cap refill less than 2nd. Neurovascular status intact. Patient does note tenderness along palpation of the the vein. Given this, D-dimer obtain. Dimer is positive. Patient isgiven a shot of Lovenox in the ED. given she is neurovascularly intact with no fever or severe 10/10pain, do not suspect her symptom is due to compartment syndrome or necrotizing fascitis. Do not suspect arterial occlusion. After considering the context of the patient's history, exam, and diagnostic results, my impression is??leg pain. Plan: With the positive D-dimer and no ultrasound capability in this ED, did offer treatment option with the patient including transfer to another ED versus outpatient ultrasound. She is okay with outpatient ultrasound. Strict return precaution given. Patient states understanding. I personally reviewed the lab result(s) and my interpretation is abnormal. ED Course as of 06/18/21 1219 Mon Jun 18, 2021 1209 D-Dimer, P(!): 769 Final Diagnoses: as of 06/18/21 1219 Pain Leg Right Remberto Prasad, C.N.P. 06/18/21 1219 documented in this encounter Plan of Treatment Not on filedocumented as of this encounter Procedures Procedure Name Priority Date/Time Associated Comments Diagnosis PROTHROMBIN TIME (PT), STAT 06/18/2021 10:34 R esults for this P AM CDT procedure are i n the results section. D-DIMER, P STAT 06/18/2021 10:34 Results for this AM CDT procedure are i n the results section. CBC WITHOUT STAT 06/18/2021 10:34 Results for this DIFFERENTIAL, B AM CDT procedure ar e in the results section. COMPREHENSIVE STAT 06/18/2021 10:34 Results fo r this METABOLIC PANEL, S/P AM CDT procedu re are in the results section. documented in this encounter Results US Lower Extremity Veins Right (06/18/2021 1:23 PM CDT) Anatomical Region Laterality Modality Lower Extremity, Ultrasound RST LOS, Ultrasound ARZ LOS, Rig ht Ultrasound Ultrasound FLA LOS Specimen (Source) Anatomical Collection Method Collection Time Re ceived Time Location / / Volume Laterality 06/18/2021 1:24 PM CDT Impressions 06/18/2021 1:25 PM CDT Negative for acute DVT. Narrative 06/18/2021 1:25 PM CDT EXAM: US LOWER EXTREMITY VEINS RIGHT Exam performed with color and spectral D oppler analysis. COMPARISON: None. FINDINGS: RIGHT: Common Femoral Vein: Negative. Profunda Femoral Vein: Negative. Femoral Vein: Negative. Popliteal Vein: Negative. Gastrocnemius Veins: Negative where seen . Soleal Veins: Negative where seen. Posterior Tibial Veins: Negative where s een. Peroneal Veins: Negative where seen. Great Saphenous Vein: Negative where see n. Small Saphenous Vein: Not evaluated. Popliteal Fossa: Negative. Other: n/a Information on venous thrombosis and man agement can be found on the [employer] site. Link [email or web address]/[email or web address]/clinical-answers/[email or web address]/[email or web address] [email or web address] Procedure Note Grey Stratton M.D. - 06/18/2021Formatt ing of this note might be different from the original. EXAM: US LOWER EXTREMITY VEINS RIGHT Exam performed with color and spectral D oppler analysis. COMPARISON: None. FINDINGS: RIGHT: Common Femoral Vein: Negative. Profunda Femoral Vein: Negative. Femoral Vein: Negative. Popliteal Vein: Negative. Gastrocnemius Veins: Negative where seen . Soleal Veins: Negative where seen. Posterior Tibial Veins: Negative where s een. Peroneal Veins: Negative where seen. Great Saphenous Vein: Negative where see n. Small Saphenous Vein: Not evaluated. Popliteal Fossa: Negative. Other: n/a Information on venous thrombosis and man agement can be found on the [employer] site. Link [email or web address]/topic/clinical-answers/[email or web address]/[email or web address] IMPRESSION: Negative for acute DVT. Remberto EwingNMaggie IMG US PROCEDURES Prothrombin Time (PT) (06/18/2021 10:34 AM CDT) P athologist Signature Prothrombin 10.8 9.4 - 12.5 06/18/2021 [facility] Time, P sec 10:45 AM CDT INR 1.0 0.9 - 1.1 06/18/2021 [facility] 10:45 AM CDT Comment: ----ADDITIONAL INFORMATION---- Standard intensity warfarin therapeutic range: 2.0 to 3.0 ?? High intensity warfarin therapeutic rang e: 2.5 to 3.5 Specimen Anatomical Collection Method Collection Time Receive d Time (Source) Location / / Volume Laterality Blood (Blood, 06/18/2021 10:34 06/18/2021 Venous) AM CDT 10:36 AM CDT Remberto EwingNMaggie LAB BLOOD ADD-ON Performing Organization Address City/State/ZIP Code Phon e Number [address] [phone] [facility] [address] [address] Comprehensive Metabolic Panel (06/18/2021 10:34 AM CDT) P athologist Signature Potassium, P 4.2 3.6 - 5.2 06/18/2021 [facility] mmol/L 11:03 AM CDT Sodium, P 137 135 - 145 06/18/2021 [facility] mmol/L 11:03 AM CDT Chloride, P 102 98 - 107 06/18/2021 [facility] mmol/L 11:03 AM CDT Bicarbonate, P 22 22 - 29 06/18/2021 [facility] mmol/L 11:03 AM CDT Anion Gap, P 13 7 - 15 06/18/2021 [facility] 11:03 AM CDT BUN (Blood Urea 12 6 - 21 06/18/2021 [facility] Nitrogen), P mg/dL 11:03 AM CDT Creatinine, P 0.66 0.59 - 1.04 06/18/2021 [facility] mg/dL 11:03 AM CDT eGFR-Black/Afri >90 >=60 06/18/2021 [facility] can Ugandan mL/min/BSA 11:03 AM CDT Comment: ----ADDITIONAL INFORMATION---- Estimated GFR calculated using the 2009 CKD_EPI creatinine equation. eGFR Non-Black/ >90 >=60 mL/min/BSA 06/18/2021 11:03 AM CDT CN[facility] Comment: ----ADDITIONAL INFORMATION---- Estimated GFR calculated using the 2009 CKD_EPI creatinine equation. Calcium, Total, P 9.4 8.6 - 10.0 mg/dL 06/18/2021 11:0 3 AM CDT CN[facility] Glucose, P 98 70 - 140 mg/dL 06/18/2021 11:03 AM CDT CN[facility] Protein, Total, P 7.3 6.3 - 7.9 g/dL 06/18/2021 11:03 AM CDT CN[facility] Albumin, P 4.3 3.5 - 5.0 g/dL 06/18/2021 11:03 AM CDT CN[facility] Aspartate Aminotransferase 24 8 - 43 U/L 06/18/2021 1 1:03 AM CDT CNFL (AST), P Alkaline Phosphatase, P 61 35 - 104 U/L 06/18/2021 11 :03 AM CDT CN[facility] Alanine Aminotransferase (ALT), 19 7 - 45 U/L 022 11:03 AM CDT CNFL P Bilirubin, Total, P 0.6 <=1.2 mg/dL 06/18/2021 11:03 A M CDT CN[facility] Specimen Anatomical Collection Method Collection Time Receive d Time (Source) Location / / Volume Laterality Blood (Blood, 06/18/2021 10:34 06/18/2021 Venous) AM CDT 10:36 AM CDT Remberto N Shanice C.N.P. LAB BLOOD ADD-ON Performing Organization Address City/State/[facility] Code Phon e Number [facility]- [address] [place] [phone] [place] [address] CBC without Differential (06/18/2021 10:34 AM CDT) P athologist Signature Hemoglobin 13.4 11.6 - 06/18/2021 [facility] 15.0 g/dL 10:49 AM CDT Hematocrit 38.6 35.5 - 06/18/2021 [facility] 44.9 % 10:49 AM CDT Erythrocytes 4.19 3.92 - 06/18/2021 [facility] 5.13 10:49 AM CDT x10(12)/L MCV 92.1 78.2 - 06/18/2021 [facility] 97.9 fL 10:49 AM CDT RBC Distrib Width 12.3 12.2 - 06/18/2021 [facility] 16.1 % 10:49 AM CDT Platelet Count 291 157 - 371 06/18/2021 [facility] x10(9)/L 10:49 AM CDT Leukocytes 5.8 3.4 - 9.6 06/18/2021 [facility] x10(9)/L 10:49 AM CDT Specimen Anatomical Collection Method Collection Time Receive d Time (Source) Location / / Volume Laterality Blood (Blood, 06/18/2021 10:34 06/18/2021 Venous) AM CDT 10:36 AM CDT Remberto Prasad C.N.P. LAB BLOOD ADD-ON Performing Organization Address [facility] Phon e Number [facility]- [address] [place] [phone] [place] [address] (ABNORMAL) D-Dimer (06/18/2021 10:34 AM CDT) P athologist Signature D-Dimer, P 769 (H) <=500 ng/mL 06/18/2021 [facility] FEU 12:09 PM CDT Comment: D-dimer concentrations increase with age . ??For DVT/PE exclusion, in addition to clinical pre-test probabi lity, age-adjusted D-dimer cut-offs are suggested for patients >50 years old. For additional information refer to the D-dimer assay i n the Laboratory Test Catalog (LTC) and/or [employer] (NATASHA) . ----ADDITIONAL INFORMATION---- D-dimer values less than or equal to 500 ng/mL fibrinogen equivalent units (FEU) may be used in co njunction with clinical pre-test probability to exclude deep vein thrombosis (DVT) and/or pulmonary emboli sm (PE). Specimen Anatomical Collection Method Collection Time Receive d Time (Source) Location / / Volume Laterality Blood (Blood, 06/18/2021 10:34 06/18/2021 Venous) AM CDT 10:36 AM CDT Remberto Prasad C.N.P. LAB BLOOD ADD-ON Performing Organization Address City/[facility] Code Phon e Number [facility]- [address] [place] [phone] [place] [address] [address] documented in this encounter Visit Diagnoses Diagnosis Pain Leg Right - Primary Pain Leg Right documented in this encounter Administered Medications Inactive Administered Medications - up to 3 most recent administrations Medication Order MAR Action Action Date Dose Rate Site enoxaparin injection 30 Given 06/18/2021 12:18 PM 30 mg Left Upper Abdomen mg (LOVENOX) CDT 30 mg, subcutaneous, Once, On Fri06/18/21 at 1215, For 1 dose ibuprofen tablet 400 mg (ADVIL,MOTRIN) Given 06/18/2021 10:27 AM CDT 400 mg 400 mg, oral, Once, On Fri06/18/21 at 1024, For 1 dose, Take with food or milk if GI disturbances occur with use. documented in this encounter Active and Recently Administered Medications Times are shown in CDT. Scheduled Medication Order 06/16/2021 06/17/2021 06/18/2021 enoxaparin injection 30 mg (LOVENOX) (COMPLETED) 1218 (Given - Provider: Oswaldo Silverio R.N.) 30 mg, subcutaneous, Once, On Fri06/18/21 at 1215, For 1 dose ibuprofen tablet 400 mg (ADVIL,MOTRIN) (COMPLETED) 1027 (Given - Provider: Oswaldo Silverio R.N.) 400 mg, oral, Once, On Fri06/18/21 at 10 24, For 1 dose, Take with food or milk if GI disturbances occur with use. documented in this encounter Additional Health Concerns Assessment Noted Time PHQ-9 Depression Total Score: 3 09/15/2015 2:08 PM CDT documented as of this encounter Care Teams Hitting Coach Relationship Specialty Start Date End Date Elsewhere, Pcp PCP - General Internal Medicine 06/18/21 documented as of this encounter
--- OUTSIDE RECORDS SUMMARY | 2021-10-22 11:50 | XMS_ITS | Encounter Summary ---
:1970 Author Organization [facility] Address [address] [place] [address] Care Team Providers Name Role Phone Elsewhere, Pcp Primary Care Provider Unavailable Reason for Referral Outpatient (Routine) - Closed Specialty Diagnoses / Procedures Referred By Contact Refer red To Contact Diagnoses Pain Leg Right Remberto Prasad, C.N.P. [facility] [place] Region Procedures US Lower Extremity Veins Right [address] [place] [address] Referral ID Status Reason Start Date Expiration Date Visits Requ ested Visits Authorized [id number] Closed 06/18/2021 06/18/2022 1 1 Reason for Visit Outpatient (Routine) - Closed Specialty Diagnoses / Procedures Referred By Contact Refer red To Contact Diagnoses Pain Leg Right Remberto Prasad, C.N.P. [facility] [place] Region Procedures US Lower Extremity Veins Right [address] [place] [address] Referral ID Status Reason Start Date Expiration Date Visits Requ ested Visits Authorized [id number] Closed 06/18/2021 06/18/2022 1 1 Encounter Details Date Type Department Care Team Description 06/18/2021 Hospital Encounter Department of Radiology Remberto Prasad , Pain Leg Right in [place], Maryo stanley C.N.P. [address] [facility] [address] [place] [address] [place], [place] [phone] Social History Tobacco Use Types Packs/Day Years [...] or relatives? How often do you attend sabianism or More than 4 times per year 06/22/2019 quaker services? Do you belong to any clubs or No 06/22/2019 organizations such as sabianism groups, unions, fraternal or athletic groups, or [...] the highest level of school Associate degree: [employer] program 06/22/2019 you have completed or the highest degree you have received? Sex Assigned at Date Recorded Not on file documented as of this encounter Medications at Time of Discharge [...] (PriLOSEC) 20 Take 1 capsule by 0 07/0 10/[address] capsule mouth daily. ondansetron [...] capsule daily. documented as of this encounter Plan of Treatment Not on filedocumented as of this encounter Procedures Procedure Name Priority Date/Time Associated Comments Diagnosis US LOWER RAD - Routine 06/18/2021 1:23 Pain Leg Right Results f or this EXTREMITY VEINS (most inpatients PM CDT procedur e are in RIGHT and all the results outpatients) section. documented in this encounter Results US [...] man agement can be found on the [employer] site. Link [email or web address].org/topic/clinical-answers/[email or web address]/[email or web address] Procedure Note Grey Stratton M.D. - 06/18/2021Formatt [...] man agement can be found on the [employer] site. Link [email or web address]/topic/clinical-answers/[email or web address]/[email or web address] IMPRESSION: Negative for acute DVT. Remberto LOPEZ US PROCEDURES documented in this encounter Visit Diagnoses Diagnosis Pain Leg Right documented in this encounter Additional Health Concerns Assessment Noted Time PHQ-9 Depression Total Score: 3 09/15/2015 2:08 PM CDT documented as of this encounter Care Teams Supervisor [employer] Relationship Specialty Start Date End Date Elsewhere, Pcp PCP - General Internal Medicine 06/18/21 documented as of this encounter
--- OUTSIDE RECORDS SUMMARY | 2021-10-22 11:50 | XMS_ITS | Encounter Summary ---
:1970 Author Organization [facility] Address [address] [place] [address] Care Team Providers Name Role Phone Elsewhere, Pcp Primary Care Provider Unavailable Reason for Visit Reason Onset Date Comments Outpatient COVID-19 Testing 12/15/2019 Encounter Details Date Type Department Care Team Description 12/15/2019 External Outreach Department of [facility] Riddhi Rainey Infection Upper Medicine, [place] [facility] (Primary Clinic, in [place] [address] [address]) [place], [place] [address] [address] [place], [place] [phone] [address] (Work) [phone] Social History Tobacco Use Types Packs/Day Years [...] or relatives? How often do you attend catholic or More than 4 times per year 06/22/2019 tenriism services? Do you belong to any clubs or No 06/22/2019 organizations such as catholic groups, unions, fraternal or athletic groups, or [...] highest level of school Associate degree: [employer] program 06/22/2019 you have completed or the highest degree you have received? Sex Assigned at Date Recorded Not on file documented as of this encounter Progress Notes Kenyetta Cruz L.P.N. - 12/15/2019 7:53 AM CDT Encounter created for the drive-through COVID-19 testing. documented in this encounter Plan of Treatment Not on filedocumented as of this encounter Procedures Procedure Name Priority Date/Time Associated Diagnosis Comme nts SARS CORONAVIRUS-2 Routine 12/15/2019 10:15 AM Infection Upper Results for this RNA, V CDT Respiratory procedure are i n the results section. documented in this encounter Results SARS Coronavirus-2 RNA, V Symptomatic (12/15/2019 10:15 AM CDT) [facility] Method Time Signature SARS-CoV-2 Swab, 12/15/2019 [facility] Specimen Nasopharynx 9:44 PM CDT Source SARS CoV-2 Undetected Undetected 12/15/2019 [facility] RNA, TMA 9:44 PM CDT Comment: SARS-CoV-2 RNA absent. This result does not rule out COVID-19 in the patient, as the sensitivity of the test depends o n the timing of the specimen collection and the quality of the specim en. Result should be correlated with patient's history and clinical presentat ion. ----ADDITIONAL INFORMATION---- This test is performed using the Aptima SARS-CoV-2 assay ([employer] which has received Emergency Use Authori zation (EUA) by the U.S. Food and Drug Administration. Fact sheets for this Emergency Use Autho rization (EUA) assay can be found at the following links: For Healthcare Providers: https://www.fd a.gov/media/544956/download For Patients: https://www.fda.gov/media/ 654456/download Specimen Anatomical Collection Method Collection Time Receive d Time (Source) Location / / Volume Laterality Varies 12/15/2019 10:15 12/15/2019 3:12 (Nasopharynx) AM CDT PM CDT Carl Rainey P.A.-C. LAB MICROBIOLOGY - GENERAL O [place] Performing Organization Address City/State/ZIP Code Phon e Number [facility]- [address] [place] [phone] [facility] [place] [place] [address] [address] documented in this encounter Visit Diagnoses Diagnosis Infection Upper Respiratory - Primary documented in this encounter Additional Health Concerns Infection Onset Date Last Indicated Resolved Time COVID19 Pending 12/15/2019 12/15/2019 12/15/2019 9:45 PM CDT Assessment Noted Time PHQ-9 Depression Total Score: 3 09/15/2015 2:08 PM CDT documented as of this encounter Care Teams Hide Grader Relationship Specialty Start Date End Date Elsewhere, Pcp PCP - General Internal Medicine 06/08/19 06/15/21 documented as of this encounter
--- OUTSIDE RECORDS SUMMARY | 2021-10-22 11:50 | XMS_ITS | Clinical Summary ---
:1970 Author Organization [facility] Address [address] [place] [address] Care Team Providers Name Role Phone Elsewhere, Pcp Primary Care Provider Unavailable Source Comments Patient records contain information from all sites at [facility]. For routine questions regarding patient records, call [phone] during business hours, M-F 8:00 AM - 5:00 PM Central Time. Record requests for emergency care only can be directed to [phone] at any time.[facility] Allergies Active Allergy Reactions Severity Noted Date Comments Morphine Other (see comments) 07/13/2010 Oxycodone-Acetaminophen Other (see comments) 1 Medications Medication Sig Dispensed Refills Start Date End Date Status simvastatin (ZOCOR) 20 Take 20 mg by 0 09/04/2018 Active mg tablet mouth daily. verapamil (VERELAN) 240 Take 240 mg by 0 09/02/2018 Active mg 24 hr capsule mouth daily. nabumetone (RELAFEN) Take 500 mg by 0 08/12/2018 Active 500 mg tablet mouth as needed for pain. omeprazole (PriLOSEC) Take 1 capsule by 0 09/15/[address] capsule mouth daily. traZODone (DESYREL) 50 Take 50 mg by 0 08/12/2018 Active mg tablet mouth Medrol Dose Pack scheduling ONLY. LORazepam (ATIVAN) 0.5 Take 0.5 mg by 0 04/02/2019 Active mg tablet mouth daily as needed. LORazepam (ATIVAN) 1 mg Take 1 tablet (1 14 tablet 0 0 Active tablet mg total) by mouth 2 (two) times a day as needed for anxiety for up to 7 days. levothyroxine TAKE ONE TABLET 0 06/11/2021 Active (SYNTHROID, LEVOTHROID) BY MOUTH DAILY - 100 mcg tablet 6 DAYS OF THE WEEK FROM FRIDAY THRU FRIDAY , AND TAKE ONE AND ONE-HALF TABLETS ON FRIDAY. ondansetron (ZOFRAN) 4 May take one tab 0 09/20/2020 Active mg tablet every 8 hours if needed for nausea sertraline (ZOLOFT) 50 TAKE ONE TABLET 0 09/05/2020 Active mg tablet BY MOUTH EVERY MORNING FOR ANXIETY AND DEPRESSION cyclobenzaprine Take 1 tablet (10 21 tablet 0 06/18/2021 Active (FLEXERIL) 10 mg tablet mg total) by mouth 3 (three) times a day as needed for muscle spasms for up to 10 days. 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.] or relatives? How often do you attend confucianist or More than 4 times per year 06/22/2019 restoration services? Do you belong to any clubs or No 06/22/2019 organizations such as confucianist groups, unions, fraternal or athletic groups, or [...] highest level of school Associate degree: academ ic program 06/22/2019 you have completed or the highest degree you have received? Sex Assigned at Date Recorded Not on file Last Filed Vital Signs Vital Sign Reading Time Taken Comments Blood Pressure 151/83 06/18/2021 10:15 AM CDT Pulse 62 06/18/2021 10:20 AM CDT Temperature 36.4 ??C (97.5 ??F) 06/08/2019 3:55 PM CDT Respiratory Rate 14 06/08/2019 5:30 PM CDT Oxygen Saturation 98% 06/18/2021 10:20 AM CDT Inhaled Oxygen Concentration - - Weight 90 kg (198 lb 6.6 oz) 06/18/2021 10:14 AM CDT Height 175.5 cm (5' 9.09) 09/24/2018 10:06 AM CDT Body Mass Index 29.22 09/24/2018 10:06 AM CDT Plan of Treatment Health Maintenance Due Date Last Done Comments CT Colonography 1969 Cologuard 1970 Colonoscopy 1969 Colorectal Cancer Screening 1969 Depression Monitoring 1969 (PHQ-9) FIT 1969 HIV Screening 1970 Hepatitis C Screening 1970 Office Visit for Blood 1969 Pressure Check / Re-check Zoster Vaccines (1 of 2) 08/16/2019 COVID-19 Vaccine (3 - 09/30/2020 05/03/2020, 04/05/2020 Booster for Moderna series) Mammogram 11/07/2020 11/08/2019, 10/27/2018, 05/06/2017, Additional history exists Influenza Vaccine (#1) 2022 01/12/2019, 12/17/2016, 12/22/2009 Thyroid Stimulating Hormone 02/21/2022 02/21/2021, 09/26/19 21, (TSH) test for thyroid 06/27/2020, Additional function history exists Fasting Glucose for 06/18/2024 06/18/2021, 06/27/2020, Diabetes Screening 07/22/2018, Additional history exists Fasting Lipid Panel 06/27/2025 06/27/2020, 12/14/2018, 08/29/2017, Additional history exists DTaP,Tdap,and Td Vaccines 08/30/2027 08/29/2017, 10/24/2005 (3 - Td or Tdap) Hepatitis B Vaccines Completed 09/27/2002, 09/27/2002, 08/18/2002, Additional history exists Pneumococcal vaccine (0-64 Aged Out No lo nger eligible years) based on patient 's age to complete this topic Insurance Payer Benefit Plan Subscriber ID Effective Dates Phone Address Type / Group [employer] [employer] [place] [id number] 2020-Prese [phone] [address] [address] PPO BLUE SHIELD nt [address] [place] [address] Care Teams Aircraft Fueler Relationship Specialty Start Date End Date Elsewhere, Pcp PCP - General Internal Medicine 06/18/21
--- OUTSIDE RECORDS SUMMARY | 2021-10-22 11:50 | XMS_ITS | Encounter Summary ---
:1970 Author Organization [facility] Address [address] [place] [address] Care Team Providers Name Role Phone Elsewhere, Pcp Primary Care Provider Unavailable Reason for Referral Specialty Diagnoses / Procedures Referred By Contact Refer red To Contact Lili Brown M.D. [facility] [address] [place] [phone] Referral ID Status Reason Start Date Expiration Date Visits Requ ested Visits Authorized PSYCHOTHERAPIST Encounter Details Date Type Department Care Team Description 01/19/2021 Orders Only RST PCP HLTH MNT Lili Brown M.D. [address] [place] [address] [phone] (Wo rk) Social History Tobacco [...] or relatives? How often do you attend taoist or More than 4 times per year 06/22/2019 yazidism services? Do you belong to any clubs or No 06/22/2019 organizations such as taoist groups, unions, fraternal or athletic groups, or [...] highest level of school Associate degree: academ [employer] program 06/22/2019 you have completed or the highest degree you have received? Sex Assigned at Date Recorded Not on file documented as of this encounter Plan of Treatment Scheduled Referrals Name Type Priority Associated Order Schedule Diagnoses Covid immunization Outpatient Referral Routine Ex pected: office visit Booster 021 (Approximate), Expires: 01/19/2022 documented as of this encounter Visit Diagnoses Not on filedocumented in this encounter Additional Health Concerns Assessment Noted Time PHQ-9 Depression Total Score: 3 09/15/2015 2:08 PM CDT documented as of this encounter Care Teams Multi Operation Machine Operator Relationship Specialty Start Date End Date Elsewhere, Pcp PCP - General Internal Medicine 06/08/19 06/15/21 documented as of this encounter
--- OUTSIDE RECORDS SUMMARY | 2021-10-22 11:51 | XMS_ITS | Encounter Summary ---
:1970 Author Organization [facility] Address [address] [place] [address] Care Team Providers Name Role Phone Elsewhere, Pcp Primary Care Provider Unavailable Reason for Visit Outpatient (Routine) - Closed Specialty Diagnoses / Procedures Referred By Contact Refer red To Contact Diagnoses Palpitations Mahamed Campos M.D. [facility] Procedures ECG Heart Rhythm Monitor (Holter) [address] [place] [address] Referral ID Status Reason Start Date Expiration Date Visits Requ ested Visits Authorized [id number] Closed 06/09/2019 06/08/2020 1 1 Encounter Details Date Type Department Care Team Description 06/10/2019 Ancillary Procedure Department of Mahamed Campos Palp itations Cardiovascular Diseases Janene Up in [facility] [address] [facility] [address] [place] [phone] Social History Tobacco Use Types Packs/Day Years [...] or relatives? How often do you attend tenriism or More than 4 times per year 06/22/2019 jewish services? Do you belong to any clubs or No 06/22/2019 organizations such as tenriism groups, unions, fraternal or athletic groups, or [...] or getting things needed for daily living? Sex Assigned at Date Recorded Not on file documented as of this encounter Progress Notes Yash Felder, L.P.N. - 06/10/2019 3:00 PM CDT Patient here for placement of Holter monitor. Was instructed not to get Holter wet, ie- no showers or bathing. No electric blankets or heating pads. Instructions given on use of diary. Holter and diaryneed to be returned in 24 hours. Patient has no questions at this time. documented in this encounter Plan of Treatment Not on filedocumented as of this encounter Procedures Procedure Name Priority Date/Time Associated Diagnosis Comme nts HOLTER MONITOR - IN Routine 06/10/2019 3:09 PM Palpitations Re sults for this CLINIC SALESPERSON RECREATIONAL VEHICLES CDT procedure are in the results section. documented in this encounter Results HOLTER MONITOR - IN CLINIC SALESPERSON RECREATIONAL VEHICLES (06/10/2019 3:09 PM CDT) [facility] gist Method Time Signature VE Max Per [id number] HOLTER Hour Time SENTINEL Min Heart Rate [id number] HOLTER Time SENTINEL VE Max Per 7 count HOLTER Hour SENTINEL SVT Runs 1 count HOLTER SENTINEL Analysis Date 20,200,407 HOLTER SENTINEL Max Heart Rate 106 bpm HOLTER SENTINEL VT Runs 0 count HOLTER SENTINEL AF Count 0 count HOLTER SENTINEL VE Percent 0 percent HOLTER Beats SENTINEL Mean Heart 73 bpm HOLTER Rate SENTINEL SVE Total 52 count HOLTER Beats SENTINEL Holter Pauses 0 count HOLTER SENTINEL Recording Date HOLTER SENTINEL Max Heart Rate [id number] HOLTER Time SENTINEL SVE Max Per 9 count HOLTER Hour SENTINEL SVE Max Per [id number] HOLTER Hour Time SENTINEL VE Total Beats 25 count HOLTER SENTINEL Tachycardia 0 count HOLTER Runs SENTINEL SVE Percent 0 percent HOLTER Beats SENTINEL SVT Max Rate 129 bpm HOLTER SENTINEL Min Heart Rate 59 bpm HOLTER SENTINEL Bradycardia 0 count HOLTER Runs SENTINEL Specimen (Source) Anatomical Collection Method Collection Time Re ceived Time Location / / Volume Laterality 06/10/2019 2:58 PM CDT Narrative This result has an attachment that is no t available. Mahamed Campos M.D. [facility] PROCEDUR ES Performing Organization Address City/State/ZIP Code Phon e Number HOLTER SENTINEL HOLTER SENTINEL NA documented in this encounter Visit Diagnoses Diagnosis Palpitations documented in this encounter Additional Health Concerns Assessment Noted Time PHQ-9 Depression Total Score: 3 09/15/2015 2:08 PM CDT documented as of this encounter Care Teams Director Of Extension Work Relationship Specialty Start Date End Date Elsewhere, Pcp PCP - General Internal Medicine 06/08/19 06/15/21 documented as of this encounter
--- OUTSIDE RECORDS SUMMARY | 2021-10-22 11:51 | XMS_ITS | Encounter Summary ---
:1970 Author Organization [facility] Address [address] [place] [address] Care Team Providers Name Role Phone Unavailable Primary Care Provider Unavailable Reason for Visit Physical Therapy (Routine) - Closed Specialty Diagnoses / Procedures Referred By Contact Refer red To Contact Diagnoses Aftercare Surgery Injury Ganesh Cortes M.D. [facility] Procedures PT Ongoing treatment [address] [place] [address] Referral ID Status Reason Start Date Expiration Date Visits Requ ested Visits Authorized [id number] Closed 12/21/2018 03/09/2019 99 99 Encounter Details Date Type Department Care Team Description 01/08/2019 Clinical Support Department of Ganesh Cortes M.D. [address] [place] [place] [address] Aftercare Surgery Rehabilitation Alyce Salguero, P.T. [address] [place] [phone] Injury Services in [address] [phone] Social History Tobacco Use Types Packs/Day Years Used Date Smoking Tobacco: Light Smoker Cigarettes Smokeless Tobacco: Never Comments: occasional pack/year [...] or relatives? How often do you attend sabianist or More than 4 times per year 06/22/2019 methodist services? Do you belong to any clubs or No 06/22/2019 organizations such as sabianist groups, unions, fraAicent or athletic groups, or school groups? How [...] documented as of this encounter Progress Notes Alyce Salguero P.T. - 01/08/2019 3:30 PM CDT Physical Therapy Outpatient Treatment Note SUBJECTIVE Patient's Name: Laura Novak Referring Provider: Ganesh Cortes M.D. Visit Diagnosis: 1. Aftercare Surgery Injury Payor: [employer] / Plan: [employer] / Product Type: PPO / No data recorded Epic Visit Count: 3 Patient comments: Patient had her followup with her surgical team and is allowed to progress WB to 50# on the left LE. She will also discontinue the brace. Precautions: WB to 50# on the left LE; No hip flexion greater than 90 degrees, abduction restricted to 45 degrees, no extension and no ER. OBJECTIVE Pain: controlled TREATMENT Treatment today consisted of: Performed the stationary bicycle with the seat elevated in no resistance. Patient did not go beyond 90?? of hip flexion. She was able to perform 10 minutes without difficulty. Performed passive range of motion to the left upper extremity hip flexion to 80??, abduction to 30?? and log roll with the leg extended. We then progressed in added bridging into her home exercise program with cuing on TA set and glute contraction. Patient was able to perform them without difficulty. Also initiated rollouts with the physio ball. Patient will limit hip flexion to 90??. Patient is independent with all other exercises and progressing nicely. Worked on ambulation with 50 lb weight-bearing through the left lower extremity utilizing bilateral crutches. Patient is demonstrating excellent gait pattern and is able to maintain weight-bearing restrictions. Home Exercise Program/Education: Patient will add in the bridging, physio ball roll outs and stationary bicycle and her home exercise program will continuing all of her exercises. Patient also begin ambulation with weight-bearing at 50 lb utilizing bilateral crutches. Pt reports good compliance with her HEP. Assessment Clinical Impression: Patient tolerated treatment session well. Patient is progressing nicely. Patient is following restrictions very closely. She is doing well with her home exercise program. Patient will continue to benefit from skilled physical therapy to optimize range of motion, strength and function. Functional Goals and Timeframes: PT Goal #1: Patient was safe independently perform an independent home exercise program in 4 weeks. PT Goal #2: Patient will ambulate with a normalized gait pattern without the use an assistive devicein 6 weeks. PT Goal #3: Patient will demonstrate full pain-free hip range of motion within 6 weeks. PT Goal #4: Patient will be able return to prior activities without pain or irritation in 12 weeks. Plan Plan for next session: Continue with current plan of care with progression to week four exercises. Time frame: Weeks 3-6 Goals: -Protect repair -Wean from crutches -Normalize gait pattern -Initiate closed chain and weight shift exercises -Continue with phase 1 exercises as appropriate Exercises: Week 4 exercises: -Wean from crutches -Stationary bike (no resistance, seat high, no recumbent bike) -Double leg bridges with abduction -?? Kneeling weight shifts -?? Kneeling single arm row/single arm extension (with sport cord or theraband) -Standing hip abduction isometrics (against wall or foam roller) -Hip hikes (off edge of step) Time Spent with Patient Therapeutic Exercise (min): 30 min Time Calculation Total Timed Units (min): 30 min Total Treatment Time (min): 30 min Functional G-code Worksheet Alyce Salguero P.T. Department of Rehabilitation Services in [address] [phone] Dept: [phone] documented in this encounter Plan of Treatment Not on filedocumented as of this encounter Visit Diagnoses Diagnosis Aftercare Surgery Injury documented in this encounter Additional Health Concerns Assessment Noted Time PHQ-9 Depression Total Score: 3 09/15/2015 2:08 PM CDT documented as of this encounter
--- OUTSIDE RECORDS SUMMARY | 2021-10-22 11:51 | XMS_ITS | Encounter Summary ---
:1970 Author Organization [facility] Address [address] [place] [address] Care Team Providers Name Role Phone Unavailable Primary Care Provider Unavailable Reason for Visit Physical Therapy (Routine) - Closed Specialty Diagnoses / Procedures Referred By Contact Refer red To Contact Diagnoses Aftercare Surgery Injury Ganesh Cortes M.D. [facility] Procedures PT Ongoing treatment [address] [place] [address] Referral ID Status Reason Start Date Expiration Date Visits Requ ested Visits Authorized [id number] Closed 12/21/2018 03/09/2019 99 99 Encounter Details Date Type Department Care Team Description 12/29/2018 Clinical Support Department of Ganesh Cortes M.D. [address] [place] [address] Aftercare Surgery Rehabilitation Alyce Salguero, P.T. [address] [place] [phone] Injury Services in [address] [phone] Social History Tobacco Use Types Packs/Day Years [...] or relatives? How often do you attend orthodoxy or More than 4 times per year 06/22/2019 uatsdin services? Do you belong to any clubs or No 06/22/2019 organizations such as orthodoxy groups, unions, fraTrevi Therapeutics or athletic groups, or school groups? How [...] encounter Progress Notes Alyce Salguero P.T. - 12/29/2018 2:00 PM CDT Physical Therapy Outpatient Treatment Note SUBJECTIVE Patient's Name: Laura Novak Referring Provider: Ganesh Cortes M.D. Visit Diagnosis: 1. Aftercare Surgery Injury Payor: [employer] / Plan: [employer] / Product Type: PPO / No data recorded Epic Visit Count: 2 Patient comments: Patient reports she is doing well. She is having a lot of itching especially underthe brace. She does wear her brace over clothing. Precautions: NWB on the left lower extremity. No hip flexion greater than 90 degrees, abduction restricted to 45 degrees, no extension and no ER. Hip brace x 2 weeks. OBJECTIVE Pain: Pain is controlled, primarily without the pain medication. TREATMENT Treatment today consisted of: Today performed gentle range of motion for hip flexion to 70??, abduction 10?? and logroll with leg extended for assessment of mobility. Performed quad sets, gluteal sets and TA sets in supine 2 x 10 repetitions. We initiated quadruped head cat and Camel, quadruped head rock back with a slight posterior pelvic tilt, quadruped head bird dogs each at 2 x 10 repetitions. Also performed standing hip abduction with the foot internally rotated 2 x 10 repetitions. With all exercises maintain patient precautions on mobility. Home Exercise Program/Education: Patient will added exercises as performed in our session today. Shewill continue with previous exercises well. Patient remains nonweightbearing. Pt reports good compliance with her HEP. Assessment Clinical Impression: Tolerated treatment session well. Patient felt exercises felt good and did not increase her pain levels. Patient's maintain compliance to her restrictions at this time. Patient continues to benefit from skilled physical therapy for range of motion and strengthening and gait training. Functional Goals and Timeframes: PT Goal #1: [...] Plan Plan for next session: Continue with progression of protocol next session to week 3 per protocol. Exercises: Initial exercises: -Stationary bike (no resistance, seat high, no recumbent bike) -Log rolls -Hip circumductions -Soft tissue mobilizations -Seated or long sitting hamstring stretch -Isometrics (focus on TA/obliques/multifidi prior to all. Also special focus on gluteals and abductors) -Prone lying 2-3 hours a day Week 2 exercises: Continue all week 1 exercises -Quadruped cat and camel -Standing abduction with IR -Quadruped rockback (with slight posterior pelvic tilt) -Quadruped hip extensions (within motion limitations, being careful when approaching full ext in thepresence of core weakness) -Quadruped bird dogs (if demonstrating appropriate muscle firing patterns) Week 3 exercises: Continue all week 1 and 2 exercises -Double leg bridges -Stool rotations (within ROM restrictions) -Physioball rollouts Criteria to progress: -Well-controlled postoperative pain -No frontal/sagittal plane deviations of hip and pelvis when ambulating -Physician clearance Time Spent with Patient Therapeutic Exercise (min): 25 min Time Calculation Total Timed Units (min): 25 min Total Treatment Time (min): 25 min Functional G-code Worksheet Alyce Salguero P.T. Department of Rehabilitation Services in [address] [phone] Dept: [phone] documented in this encounter Plan of Treatment Not on filedocumented as of this encounter Visit Diagnoses Diagnosis Aftercare Surgery Injury documented in this encounter Additional Health Concerns Assessment Noted Time PHQ-9 Depression Total Score: 3 09/15/2015 2:08 PM CDT documented as of this encounter
--- OUTSIDE RECORDS SUMMARY | 2021-10-22 11:51 | XMS_ITS | Encounter Summary ---
:1970 Author Organization [facility] Address [address] [place] [address] Care Team Providers Name Role Phone Elsewhere, Pcp Primary Care Provider Unavailable Reason for Referral Outpatient (Routine) - Closed Specialty Diagnoses / Referred By Contact Referred To Contact Procedures Cardiovascular Diseases / Diagnoses Pain Chest Atypical Mahamed Campos, [facility] Cardiovascular Disease [facility] [address] [place] [address] Referral ID Status Reason Start Date Expiration Date Visits Requ ested Visits Authorized [id number] Closed 06/10/2019 06/09/2020 1 1 Encounter Details Date Type Department Care Team Description 06/10/2019 Orders Only Department of Mahamed Campos Pain Chest Atypical Cardiovascular Diseases Janene Up (Primary Dx) in [facility] [address] [place] [address] [place] [phone] Social History Tobacco Use Types Packs/Day Years [...] or relatives? How often do you attend zoroastrianism or More than 4 times per year 06/22/2019 tenriism services? Do you belong to any clubs or No 06/22/2019 organizations such as zoroastrianism groups, unions, fraTrig Medical or athletic groups, or school groups? How [...] Name Type Priority Associated Order Schedule Diagnoses Cardiovascular Disease Outpatient Referral Routine Pain Chest Expected: - Women's heart consult Atypical 04/2019 (clinic) (Approximate), Expires: 06/09/2022 documented as of this encounter Visit Diagnoses Diagnosis Pain Chest Atypical - Primary documented in this encounter Additional Health Concerns Assessment Noted Time PHQ-9 Depression Total Score: 3 09/15/2015 2:08 PM CDT documented as of this encounter Care Teams Welder Metal Fab Relationship Specialty Start Date End Date Elsewhere, Pcp PCP - General Internal Medicine 06/08/19 06/15/21 documented as of this encounter
--- OUTSIDE RECORDS SUMMARY | 2021-10-22 11:51 | XMS_ITS | Encounter Summary ---
:1970 Author Organization [facility] Address [address] [place] [address] Care Team Providers Name Role Phone Elsewhere, Pcp Primary Care Provider Unavailable Encounter Details Date Type Department Care Team Description 06/09/2019 Documentation Department of Cardiovascular Campos, Duncan Up, Diseases in [place] Kiran M.D. [place] [address] [facility] [address] [place] [phone] (Wo rk) Social History Tobacco Use Types [...] documented as of this encounter Progress Notes Mahamed Campos M.D. - 06/09/2019 3:15 PM CDT I returned a call to Laura. She was seen in the emergency room for a combination of symptoms. The emergency room note has not been completed at the time of my review. The patient informs me that she has experienced a squeezing sensation in the chest. She describes this as very mild and a 2/10 intensity. She further describes sometimes I can't catch my breat and notices a tightness in the neck. She also reports occasional palpitations and fluttering in the chest. She will have these episodes up to 3 times a day. Laura does have a prior history of chest pain with mildly elevated troponin I back in 2010. Coronaryangiogram showed normal coronary arteries but with administration of Methergine, the patient experienced typical chest and throat discomfort. There was no focal spasm but diffuse spasm of the ramus intermediate was noted. She was started on verapamil at that time. She had a subsequent episode of chestdiscomfort in 2016. Troponins were normal at that time and coronary angiogram once again showed normal coronary arteries. Unfortunately, nitrates have been poorly tolerated due to migraines. She has continued on verapamil 240 mg daily. I do not have a perfect explanation for her symptoms. She denies anxiety or depression although thatwas the diagnosis given in the emergency room. Although her symptoms are very mild, she is very focused on them. I tried to reassure Laura that both prior invasive coronary aniograms have all been reassuring. I am very reluctant to pursue additional coronary testing given low pretest probability of identifying pathology. Having said that, I do think there is some value in Holter monitor. Identifying a benign rhythm suchas SVT may go a long way to providing reassurance for this patient. She is agreeable with the plan. documented in this encounter Plan of Treatment Not on filedocumented as of this encounter Visit Diagnoses Not on filedocumented in this encounter Additional Health Concerns Assessment Noted Time PHQ-9 Depression Total Score: 3 09/15/2015 2:08 PM CDT documented as of this encounter Care Teams Paper Gluing Operator Relationship Specialty Start Date End Date Elsewhere, Pcp PCP - General Internal Medicine 06/08/19 06/15/21 documented as of this encounter
--- OUTSIDE RECORDS SUMMARY | 2021-10-22 11:51 | XMS_ITS | Encounter Summary ---
:1970 Author Organization [facility] Address [address] [place] [address] Care Team Providers Name Role Phone Elsewhere, Pcp Primary Care Provider Unavailable Encounter Details Date Type Department Care Team Description 06/10/2019 Clinical Communication Department of Mahamed Campos Cardiovascular Medicine Janene Up in [place] [facility] [address] [facility] [address] [place] [phone] Social History Tobacco Use Types Packs/Day Years [...] or relatives? How often do you attend jain or More than 4 times per year 06/22/2019 church services? Do you belong to any clubs or No 06/22/2019 organizations such as jain groups, unions, fraternal or athletic groups, or [...] on file documented as of this encounter Miscellaneous Notes Telephone Encounter - Mahamed Campos M.D. - 06/15/2019 11:36 AM CDT I'm ok with F2F. THanks Telephone Encounter - Keri Mcdonald M.D. - 06/14/2019 12:21 PM CDT Alex Henry I thought it would be better than she be seen in person given the anxiety issues etc. I don't see an urgency (other than her concern). I figured that a NFTF would just be a precursor to her wanting a FTF, so thought I would just do one rather than both. But if you feel strongly, then we can do a phone visit (won't be video since likely it would take place from home) Thanks Joel Telephone Encounter - Katina Head - 06/14/2019 12:[address] Mcdonald, please advise on Dr. Campos's question about a virtual consult. Thank you, Katina Telephone Encounter - Mahamed Campos M.D. - 06/14/2019 11:14 AM CDT Would it be possible for this patient to be seen sooner as a virtual consult? Thanks Andres Telephone Encounter - Katina Head - 06/14/2019 8:[address] Campos, Dr. Mcdonald did review and think this is appropriate, so I have added that indication to my list. I apologize for the miscommunication. Per Dr. Mcdonald, we will call the pt once we are able to schedule F2F. Thank you, Katina Telephone Encounter - Mahamed Campos M.D. - 06/11/2019 12:48 PM CDT Looks like my message was cut off..in continuum: Kushal Saavedra, This is a fairly young female patient diagnosed with an NSTEMI back in 2000 with a very minor elevation of troponin I (somewhat overly sensitive as you will recall). Angiogram showed mild focal spasm of the ramus intermediate during Methergine infusion, coronaries otherwise normal. Since then, she hascarried this label of coronary vasospasm and has had recurrent atypical chest pain episodes. She has also been given a recent diagnosis of anxiety and depression although she does not endorse convincing symptoms for this either. My concern is that she is getting a snowball of diagnoses and a snowball of medications with no clear end. My thought is that she would benefit from a virtual consult with [facility]. I think reassurance would go along way but I think she needs the [place] experience to reaffirm this. Thanks in advance Andres Telephone Encounter - Mahamed Campos M.D. - 06/11/2019 12:42 PM CDT Error Telephone Encounter - Katina Head - 06/11/2019 11:[address] Campos, I am attaching Dr. Mcdonald, head of [facility], so she can assess as well, as she can say for sure if this patient is appropriate. 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 - 06/11/2019 11:07 AM CDT Greetings Katina, This patient is female, has documented coronary vasospasm, and repeated evaluations for atypical chest pain. If this is not an appropriate indication for [facility], then what is? I am genuinely curious. Thanks Andres Telephone Encounter - Katina Head - 06/10/2019 2:31 PM CDT Heljohn Campos, Please place an order for a gen card internal consult as it is more appropriate for atypical chest pain, unless there were other diagnoses that need to be taken into consideration in selecting a subspeciality. [facility] does not typically see for chest pain. Then we can call to schedule. Thank you, Katina documented in this encounter Plan of Treatment Not on filedocumented as of this encounter Visit Diagnoses Not on filedocumented in this encounter Additional Health Concerns Assessment Noted Time PHQ-9 Depression Total Score: 3 09/15/2015 2:08 PM CDT documented as of this encounter Care Teams Civil Preparedness Coordinator Relationship Specialty Start Date End Date Elsewhere, Pcp PCP - General Internal Medicine 06/08/19 06/15/21 documented as of this encounter
--- OUTSIDE RECORDS SUMMARY | 2021-10-22 11:51 | XMS_ITS | Encounter Summary ---
:1970 Author Organization [facility] Address [address] [place] [address] Care Team Providers Name Role Phone Unavailable Primary Care Provider Unavailable Encounter Details Date Type Department Care Team Description 09/06/2013 Hospital Encounter [facility]X [facility] [place] Elio Roberts M.D. Social History Tobacco Use Types Packs/Day Years Used Date Smoking Tobacco: Never Assessed Alcohol Habits Answer Date Recorded [...] More than 4 times per year 06/22/2019 druze services? Do you belong to any clubs [...] Sign Reading Time Taken Comments Blood Pressure 120/70 09/06/2013 3:24 PM CDT Pulse 72 09/06/2013 3:24 PM CDT Temperature - - Respiratory Rate 16 09/06/2013 3:24 PM CDT Oxygen Saturation - - Inhaled Oxygen Concentration - - Weight 84.8 kg (186 lb 15.2 oz) 09/06/2013 3:24 PM CDT Height 173 cm (5' 8.11) 09/06/2013 3:24 PM CDT Body Mass Index 28.33 09/06/2013 3:24 PM CDT documented in this encounter Progress Notes Elio Roberts M.D. - 09/06/2013 3:16 PM CDT [id number] German comes in complaining of a headache. She has had it for the past week. She has used nobp-jev-hakrbzb medication, ibuprofen, Aleve, Tylenol, Excedrin without any benefits. She has also developed heartburn and that has been quite distressing for her, too. She is concerned because she had a heart attack about 3 years ago and her initial symptoms she thought was heartburn and so she is little bit worried about this. She does tend to get migraines. She says she gets 1 about every 3 months. It is unusual that this 1 is lasting as long as it has been. She says she has only had a couple hours in the past when she has not had the headache. She is having trouble sleeping because of this, but is gettingsome sleep. She has not had much of an appetite. She has felt nauseous but she has not thrown up. Denies any diarrhea or constipation. Denies any palpitations or shortness of breath. She thinks she maybe has had Imitrex in the past, but can't remember if it has worked or not. She is complaining of photophobia, phonophobia and nausea and these symptoms are typical for her when she gets her migraine. PHYSICAL EXAMINATION GENERAL: She is sitting in a darkened room. She has sunglasses on. She is alert and oriented, but itseems like her speech may be a little bit slow she denies any weakness or paresthesias in her arms or legs. HEENT: Head is normocephalic, atraumatic. TMs are clear. Pharynx is clear. NECK: Supple without lymphadenopathy. No carotid bruits. PERRLA. Extraocular movements are intact. LUNGS: Clear. HEART: Regular. ABDOMEN: Soft. She is a little tender in the epigastric area. There is no hepatomegaly or splenomegaly. IMPRESSION/REPORT/PLAN Migraine headache, not responsive to qegd-yzj-djuypts medications, esophageal reflux, chest pain. AnEKG was done and shows sinus bradycardia, no acute changes. Troponin was also done just to be sure she did not have any cardiac origin for this and was negative. She was given 60 mg of Toradol and a GI cocktail with slight but not dramatic relief. 6 mg of Imitrex was then given subcutaneously. She said it seemed to kind of open up, had the sensation of opening up her head and maybe a little increasedpressure, but she felt that she could maybe go home and sleep. I did give her a prescription for Vicodin and told her that she could always come back to the emergency room for their migraine protocol if her symptoms got worse again. She is wondering about tapering off her Prozac she is on 40 mg a day. I suggested she go to 20 mg a day and if she continues to feel good after a month could discontinue the Prozac. Also suggested she get some xjnj-glj-diyzawa Prilosec and take it daily for the heartburn. Elio Roberts M.D./shimon Electronically Signed By: ELIO ROBERTS MD On: 09/08/2013 07:49 AM Source: [facility] MHSDOLBEYNONRADSYS Document Id: [id number] documented in this encounter Miscellaneous Notes Miscellaneous - Raven Jaramillo LSonjaP.N. - 03/08/2014 1:52 PM CST Quality Measures Quality Measures Entered On: 03/09/2014 13:53 LEAD RIDER Performed On: 03/08/2014 13:52 LEAD RIDER by RAVEN JARAMILLO LPN Depression PHQ-9 Score : 2 RAVEN JARAMILLO LPN - 03/09/2014 13:52 LEAD RIDER Source: [facility] POWERCHART Document Id: [id number] LEAD RIDER!3 RIDER Miscellaneous - Elio Roberts M.D. - 09/06/2013 5:15 PM CDT Ambulatory Patient Summary [facility] [address] [place], [place] [id number] Visit Information Name: GERMAN NOVAK [facility] Number: [id number] Current Date: 09/06/2013 17:15:09 Physicians Attending Provider: ELIO ROBERTS MD Primary Care Provider: JUVE CHRISTIANSEN DNP, DITCH INSPECTOR YUSEFFERNANDOGERMANE has been given the following list of follow-up instructions, medication list, andpatient education materials: Follow-up Instructions Your Medications Here is a list of your medications. It is important to take your medications as directed. Use a pillbox or chart to help remind you to take your medications. Please let your doctor or nurse know if you have problems taking your medications. Medication/Strength How to Take Indications/Special Instructions/Comments/Notes for Patient Medication Changes/Routing ascorbic acid (Vitamin C 500 mg oral tablet) 1 Tablet(s), Oral, once a day aspirin (aspirin 81 mg oral tablet) 1 Tablet(s), Oral, once a day ergocalciferol (Vitamin D 400 iu oral tablet) 1 Tablet(s), Oral, once a day FLUoxetine (PROzac 20 mg oral capsule) 1 cap, Oral, once a day This is a CHANGE [facility] [address] HYDROcodone-acetaminophen (Vicodin 5 mg-300 mg oral tablet) 1 Tablet(s), Oral, every 4 hours as needed for Pain No more than 4,000mg acetaminophen/24hrs New Routed to [employer] multivitamin (Multiple Vitamins oral tablet) 1 Tablet(s), Oral, once a day simvastatin (simvastatin 20 mg oral tablet) 1 Tablet(s), Oral, once a day (at bedtime) for high cholesterols Stop Taking the Following Medications: Medication list as of 09-06-13 17:15 Attention: If you have any medications at home that are not on this list, DO NOT take them until youcontact your provider for clarification. Give a copy of your medication list to your primary care provider. Update your medication list any time medications or doses are changed and carry your medication list at all times in case of emergency. Electronically Signed By: ELIO ROBERTS MD Signed On:06-SEP-2013 17:14:45 Your Allergies & Intolerances Substance Reaction Symptoms Category Comments morphine Drug narcotic analgesics itch Drug Toradol Drug Percocet 5/325 Drug Your Problem List Problem Status Onset Comments Common migraine Active Hyperlipidemia Active 03/11/2013 02/14/12 unknown date of dx; 04/10/12 Patient stated she does not have this diagnosis History of - myocardial infarction Active 06/18/2010 04/24/12 NSTEMI 06/2010; 03/11/[address] elevation myocardial infarction secondary to coronary vasospasm Mrs. Novak was transferred from the [place] emergency department where he initial troponin was 0.06, and a CK-MB was 5.9. [facility] She was transferred to [facility] for evaluation of her elevation in her cardiac serial biomarkers. Due to her associated symptoms of headache and shortness of breath with the chest pain, a head CT was obtained upon arrival to [facility] and did not reveal any abnormalities. She also underwent a chest CT which was negative for dissection and pulmonary embolus. e proceeded with a coronary angiogram which revealed normal coronary arteries and right sided dominance. Following administration of Methergine, she experienced her typical chest and throat discomfort and although focal vasospasm was not seen, there was diffuse distal spasm of the ramus intermediate coronary artery. An echocardiogram was obtained and revealed normal left ventricular size and functionwith an ejection fraction of 58%, with focal inferolateral wall motion abnormalities in the distribution of the ramus intermediate coronary artery, the same vessel with diffuse spasm with Methergine. Verapamil and simvastatin were initiated, and sublingual nitroglycerine as needed for acute recurrent symptoms. Long acting nitrate therapy was avoided due the history of complex migraine headaches. An abdominal ultrasound was obtained to rule out biliary disease and revealed no intrahepatic or extrahepatic biliary dilatation and no cholelithiasis. 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 She has also been advised to cease using Hydroxycut, an appetite suppressant that may contain vasoconstricting agents. Major Depressive Disorder, Recurrent Episode, Unspecified Degree Active 03/11/13 unknown date of dx Echocardiogram abnormal Active 06/20/2010 03/11/13 Final Impressions 1. BEDSIDE ECHOCARDIOGRAM: 2. Normal left ventricular size; normal global systolic function; calculated ejection fraction 58%. 3. Akinesis of inferolateral (mid); hypokinesis of inferolateral (base) martinez of left ventricle. 4. Trivial mitral valve regurgitation; mild left atrial enlargement. 5. Normal right ventricular size; normal systolic function; unable to accurately estimate RV systolic pressure. 6. Trivial tricuspid valve regurgitation; normal right atrial size. Your Upcoming Appointments Date Time Location Reason Provider No Appointments found Attention: Contact your local Clinic if further appointment detail needed. Your Goals/Additional instructions: Source: [facility] POWERCHART Document Id: [id number] Miscellaneous - Elio Roberts M.D. - 09/06/2013 5:15 PM CDT Ambulatory Discharge Medication List [address] [id number] Visit Information Name: GERMAN NOVAK [facility] Number: [id number] Visit Date: 09/06/2013 17:15:08 Attending Provider: ELIO ROBERTS MD Primary Care Provider: JUVE CHRISTIANSEN [facility], DITCH INSPECTOR GERMAN NOVAK has been given the following list of medications: Your Medications It is important to take your medications as directed. Use a pill box or chart to help remind you to take your medications. Please let your doctor or nurse know if you have problems taking your medications. Medication/Strength How to Take Indications/Special Instructions/Comments/Notes for Patient Medication Changes/Routing ascorbic acid (Vitamin C 500 mg oral tablet) 1 Tablet(s), Oral, once a day aspirin (aspirin 81 mg oral tablet) 1 Tablet(s), Oral, once a day ergocalciferol (Vitamin D 400 iu oral tablet) 1 Tablet(s), Oral, once a day FLUoxetine (PROzac 20 mg oral capsule) 1 cap, Oral, once a day This is a CHANGE Routed to [address] [address] HYDROcodone-acetaminophen (Vicodin 5 mg-300 mg oral tablet) 1 Tablet(s), Oral, every 4 hours as needed for Pain No more than 4,000mg acetaminophen/24hrs [facility] (Multiple Vitamins oral tablet) 1 Tablet(s), Oral, once a day simvastatin (simvastatin 20 mg oral tablet) 1 Tablet(s), Oral, once a day (at bedtime) for high cholesterols Stop Taking the Following Medications: Medication list as of 09-06-13 17:15 Attention: If you have any medications at home that are not on this list, DO NOT take them until youcontact your provider for clarification. Give a copy of your medication list to your primary care provider. Update your medication list any time medications or doses are changed and carry your medication list at all times in case of emergency. Electronically Signed By: ELIO ROBERTS MD Signed On:06-SEP-2013 17:14:45 Additional Information: Source: [facility] POWERCHART Document Id: [id number] Miscellaneous - Robert Del Rio L.P.N. 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 trouble findiing words Peripheral Pulse Rate : 72 /min Respiratory Rate : 16 /min Heart Rhythm : Regular Systolic Blood Pressure : 120 mmHg Diastolic Blood Pressure : 70 mmHg NIBP Mean : 87 mmHg BP Location : Right upper extremity Blood Pressure Cuff Size : Regular Height : 173 cm(Converted to: 5 ft 8 inch(es), 68 inch(es)) Actual Weight : 84.8 kg(Converted to: 186 lb 15 oz) Weight Source : Standing scale Dosing Weight Clinic : 84.8 kg Clinic BSA : 2.02 Body Mass Index : 28.33 kg/m2 ROBERT DEL RIO - 09/06/2013 15:24 CDT General Info Information Given By : Patient Languages : Turkmen ROBERT DEL RIO - 09/06/2013 15:24 CDT Subjective Pain Symptoms : Yes ROBERT DEL RIO 09/06/2013 15:24 CDT Pain Pain Assessment Grid Pain 1 Location : Head Intensity : 5 ROBERT DEL RIO 09/06/2013 15:24 CDT Dependent Habits Tobacco Use/Currently Using : No Exposure to Tobacco Smoke : Care provider denies smoking in home Smoking Status : Former smoker ROBERT DEL RIO 09/06/2013 15:24 CDT Tobacco Use Grid Type : Cigarettes Last Use : 04/09/12 ROBERT DEL RIO - 09/06/2013 15:24 CDT Caffeine Use Grid Caffeine Use : Current Type : Soft drinks Frequency : Daily Amount : 1 ROBERT DEL RIO - 09/06/2013 15:24 CDT Recreational Drug Use Grid Drug Use : None ELIANE ROBERT - 09/06/2013 15:24 CDT Source: [facility] POWERCHART Document Id: [id number]!44 documented in this encounter Plan of Treatment Not on filedocumented as of this encounter Procedures Procedure Name Priority Date/Time Associated Diagnosis Comme nts TROPONIN T, 5TH Routine 09/06/2013 4:01 PM Result s for this GEN, P CDT procedure are i n the results section. documented in this encounter Results Troponin T (09/06/2013 4:01 PM CDT) P athologist Signature Troponin T, S <0.01 0.00 - 0.10 POWERCHART NGML Comment: 0.03 - 0.1 ng/mL Intermediate Z one Specimen (Source) Anatomical Collection Method Collection Time Re ceived Time Location / / Volume Laterality Blood 09/06/2013 4:01 PM CDT Elio Roberts M.D. LAB BLOOD ADD-ON Performing Organization Address City/State/ZIP Code Phon e Number POWERCHART documented in this encounter Visit Diagnoses Not on filedocumented in this encounter Additional Health Concerns Assessment Noted Time PHQ-9 Depression Total Score: 10 03/11/2013 2:22 PM CS T documented as of this encounter
--- OUTSIDE RECORDS SUMMARY | 2021-10-22 11:51 | XMS_ITS | Encounter Summary ---
:1970 Author Organization [facility] Address [address] [place] [address] Care Team Providers Name Role Phone Elsewhere, Pcp Primary Care Provider Unavailable Encounter Details Date Type Department Care Team Description 06/11/2019 Orders Only Department of Cardiovascular [place]o Campos, [place] [address] [facility] [address] [place] [phone] (Wo rk) Social History Tobacco Use Types [...] or relatives? How often do you attend hoahaoism or More than 4 times per year 06/22/2019 adventism services? Do you belong to any clubs or No 06/22/2019 organizations such as hoahaoism groups, unions, fraternal or athletic groups, or [...] documented as of this encounter Care Teams Board Filler Relationship Specialty Start Date End Date Elsewhere, Pcp PCP - General Internal Medicine 06/08/19 06/15/21 documented as of this encounter
--- OUTSIDE RECORDS SUMMARY | 2021-10-22 11:51 | XMS_ITS | Encounter Summary ---
:1970 Author Organization [facility] Address [address] [place] [address] Care Team Providers Name Role Phone Unavailable Primary Care Provider Unavailable Encounter Details Date Type Department Care Team Description 03/14/2014 Hospital Encounter HX [facility] Tiffanie Munoz, ALVERTO, C.N.P., D.N.P. [address] [place], [place] [phone] (Wo rk) Social History Tobacco Use Types [...] or relatives? How often do you attend adventist or More than 4 times per year 06/22/2019 jew services? Do you belong to any clubs or No 06/22/2019 organizations such as adventist groups, unions, fraternal or athletic groups, or [...] Sign Reading Time Taken Comments Blood Pressure - - Pulse - - Temperature - - Respiratory Rate - - Oxygen Saturation - - Inhaled Oxygen Concentration - - Weight - - Height 173 cm (5' 8.11) 03/14/2014 10:12 AM THERMODYNAMIC PHYSICIST Body Mass Index - - documented in this encounter Plan of Treatment Not on filedocumented as of this encounter Procedures Procedure Name Priority Date/Time Associated Comments Diagnosis 5-HYDROXYINDOLEACETIC Routine 03/14/2014 6:00 AM Results for this ACID, 24 HR U THERMODYNAMIC PHYSICIST procedure are in the results section. CATECHOLAMINE FRACT, Routine 03/14/2014 6:00 AM R esults for this FREE, U THERMODYNAMIC PHYSICIST procedure are i n the results section. documented in this encounter Results 5-Hydroxyindoleacetic Acid (5-HIAA), 24 Hour, Urine (03/14/2014 6:00 AM THERMODYNAMIC PHYSICIST) P athologist Signature 5-Hydroxyindole 4.8 <=8.0 POWERCHART acetic Acid, U MG24HR HXHrs 24 HR POWERCHART 5-HIAA-[place] HXTV 1425 ML POWERCHART 5-HIAA-[place] Comment: Test Performed by: [facility] [place] [address] Timekeeper Supervisor: Leanne Jorge Specimen (Source) Anatomical Collection Method Collection Time Re ceived Time Location / / Volume Laterality Urine 03/14/2014 6:00 AM THERMODYNAMIC PHYSICIST Tiffanie Munoz APRN, C.N.P., D.N.P. LAB URINE ORDE [place] Performing Organization Address City/[facility] Code Phon e Number POWERCHART (ABNORMAL) Catecholamine Fractionation, Free, 24 Hour, Urine (03/14/2014 6:00 AM THERMODYNAMIC PHYSICIST) Patholo gist Method Time Signature HXHrs Catech 24 HR POWERCHART Free-[place] HXTV Catech 1425 ML POWERCHART Free-[place] Norepinephrine 12 (L) 15 - 80 POWERCHART Epinephrine 1.1 <21 POWERCHART Dopamine 229 65 - 400 POWERCHART Comment: Test Performed by: [facility] [place] [address] Timekeeper Supervisor: Leanne Jorge Specimen (Source) Anatomical Collection Method Collection Time Re ceived Time Location / / Volume Laterality Urine 03/14/2014 6:00 AM THERMODYNAMIC PHYSICIST Tiffanie Munoz APRN, C.N.P., D.N.P. LAB URINE ORDE ED Performing Organization Address City/[facility] Code Phon e Number POWERCHART documented in this encounter Visit Diagnoses Not on filedocumented in this encounter Additional Health Concerns Assessment Noted Time PHQ-9 Depression Total Score: 10 03/11/2013 2:22 PM CS T documented as of this encounter
--- OUTSIDE RECORDS SUMMARY | 2021-10-22 11:51 | XMS_ITS | Encounter Summary ---
:1970 Author Organization [facility] Address [address] [place] [address] Care Team Providers Name Role Phone Elsewhere, Pcp Primary Care Provider Unavailable Encounter Details Date Type Department Care Team Description 06/16/2019 Documentation Department of Cardiovascular Campos, [place] Up, Medicine in [facility] [address] [facility] [address] [place] [phone] (Wo rk) Social History Tobacco Use Types [...] or relatives? How often do you attend anglican or More than 4 times per year 06/22/2019 episcopal services? Do you belong to any clubs or No 06/22/2019 organizations such as anglican groups, unions, fraternal or athletic groups, or [...] encounter Progress Notes Mahamed Campos M.D. - 06/16/2019 9:49 AM CDT ASSESSMENT / PLAN #1 Holter results #2 Infrequent ventricular ectopy (less than 1%) appears to correlate with symptom of flutter PLAN: I contacted Laura with the results of her Holter. The overall result was reassuring. The symptom of flutter correlated with rare ventricular ectopy. This is benign and does not require any further intervention. She had a very brief 3-beat run of SVT which did not appear to be symptomatic. I notified Laura that we have made arrangements for [id number]. She is very much looking forward to this. She has no additional complaints or concerns at this time but understands she can contact me in the future as needed. CT CT Job ID: [id number]/mc documented in this encounter Plan of Treatment Not on filedocumented as of this encounter Visit Diagnoses Not on filedocumented in this encounter Additional Health Concerns Assessment Noted Time PHQ-9 Depression Total Score: 3 09/15/2015 2:08 PM CDT documented as of this encounter Care Teams Bilingual Student Tutor Relationship Specialty Start Date End Date Elsewhere, Pcp PCP - General Internal Medicine 06/08/19 06/15/21 documented as of this encounter
--- OUTSIDE RECORDS SUMMARY | 2021-10-22 11:51 | XMS_ITS | Encounter Summary ---
:1970 Author Organization [facility] Address [address] [place] [address] Care Team Providers Name Role Phone Unavailable Primary Care Provider Unavailable Reason for Visit Physical Therapy (Routine) - Closed Specialty Diagnoses / Procedures Referred By Contact Refer red To Contact Diagnoses Aftercare Surgery Injury Ganesh Cortes M.D. [facility] Procedures PT Ongoing treatment [address] [place] [address] Referral ID Status Reason Start Date Expiration Date Visits Requ ested Visits Authorized [id number] Closed 12/21/2018 03/09/2019 99 99 Encounter Details Date Type Department Care Team Description 01/15/2019 Clinical Support Department of Ganesh Cortes M.D. [address] [place] [address] Aftercare Surgery Rehabilitation Alyce Salguero, P.T. [address] [place] [phone] Injury Services in [address] [phone] Social History Tobacco Use Types Packs/Day Years [...] or relatives? How often do you attend islam or More than 4 times per year 06/22/2019 jew services? Do you belong to any clubs or No 06/22/2019 organizations such as islam groups, unions, fraWisegate or athletic groups, or school groups? How [...] encounter Progress Notes Alyce Salguero P.T. - 01/15/2019 3:30 PM CST Physical Therapy Outpatient Treatment Note SUBJECTIVE Patient's Name: Laura Novak Referring Provider: Ganesh Cortes M.D. Visit Diagnosis: 1. Aftercare Surgery Injury Payor: [employer] / Plan: [employer] / Product Type: PPO / No data recorded Epic Visit Count: 4 Patient comments: patient reports that she return to work. She reported that involved a lot of walking which is causing soreness over the hip flexor. Therefore she took a break on her exercises over the week. OBJECTIVE Pain: Soreness over the left hip flexor. Patient was able to ambulate safely independently without the use an assistive device full weight-bearing on the involved lower extremity. Patient demonstrates a slight decreased stride length on the left lower extremity. Patient was able to correct this with verbal cuing. Patient was able to negotiate steps going step over step utilizing hand rail. TREATMENT Treatment today consisted of: Patient performed 5 minutes on the stationary bicycle. We then progressed home exercise program withhip hike on the step, double bridges with hip abduction utilizing a blue Thera-Band, half kneel weight shifts, half kneeling single arm rows in single arm extension with Jjyig-Iouz-hsddal, standing hipabduction isometrics against the wall. We then worked on ambulation with verbal cuing to increase stride length on the uninvolved lower extremity. Patient is safe independently ambulate without the useof assistive device at this time. Patient will also work on icing of the hip flexor to decrease soreness. Home Exercise Program/Education: Patient will at exercises into her home exercise program as performed in our therapy session today. She may discontinue week 1 exercises but will continue with week to exercises. Pt reports good compliance with her HEP. Assessment Clinical Impression: Patient tolerated treatment session well. Patient does have some irritation of the hip flexor. Patient work on calming that with rest and icing. Patient will begin ambulating without the use of assistive device. She will gradually progress home program as tolerated without pain reproduction in hip flexor. Functional Goals and Timeframes: PT Goal #1: [...] 12 weeks. Plan Plan for next session: Progress to week 5 exercises: Week 5 exercises: -Sidelying clam shells (pain free ROM, add/progress TB resistance according to firing pattern) -Standing lateral and forward/backward weight shifts -Single leg stance and balance progression -Quadruped fire hydrant -?? Kneeling upper body lifts/chops with sport cord (no torso or hip rotation) -Double leg ?? squats -Forward step-ups Time Spent with Patient Gait Training (min): 10 min Therapeutic Exercise (min): 15 min Time Calculation Total Timed Units (min): 25 min Total Treatment Time (min): 25 min Functional G-code Worksheet Alyce Salguero P.T. Department of Rehabilitation Services in [address] [phone] Dept: [phone] OR'S ASSISTANT documented in this encounter Plan of Treatment Not on filedocumented as of this encounter Visit Diagnoses Diagnosis Aftercare Surgery Injury documented in this encounter Additional Health Concerns Assessment Noted Time PHQ-9 Depression Total Score: 3 09/15/2015 2:08 PM CDT documented as of this encounter
--- OUTSIDE RECORDS SUMMARY | 2021-10-22 11:51 | XMS_ITS | Encounter Summary ---
:1970 Author Organization [facility] Address [address] [place] [address] Care Team Providers Name Role Phone Unavailable Primary Care Provider Unavailable Encounter Details Date Type Department Care Team Description 12/01/2014 Hospital Encounter HX [facility] Shayla Baez, VOCATIONAL REHABILITATION SUPERVISOR, C.N.P. [address] [place], [place] [address] (Wo rk) Social History Tobacco Use Types [...] More than 4 times per year 06/22/2019 holiness services? Do you belong to any clubs or No 06/22/2019 organizations such as orthodoxy groups, unions, fraternal or athletic groups, or [...] - - Height 173 cm (5' 8.11) 12/01/2014 4:16 PM CDT Body Mass Index - - documented in this encounter Procedure Notes Lea Stratton, L.P.N. - 12/01/2014 4:26 PM CDT PPD Reading PPD Reading Entered On: 12/01/2014 16:27 CDT Performed On: 12/01/2014 16:26 CDT by LEA STRATTON LPN PPD Reading MM of Induration : 0 mm PPD Interpretation : Negative PPD Placed On : Right inner forearm PPD Date/Time Administered : 11/29/2014 16:00 CDT LEA STRATTON LPN - 12/01/2014 16:26 CDT Source: [facility] POWERCHART Document Id: [id number] documented in this encounter Plan of Treatment Not on filedocumented as of this encounter Procedures Procedure Name Priority Date/Time Associated Diagnosis Comme nts HX TB SKIN TEST-LAB Routine 12/01/2014 4:26 PM Re sults for this CDT procedure are i n the results section. documented in this encounter Results HX TB SKIN TEST-LAB (12/01/2014 4:26 PM CDT) P athologist Signature TB Skin Test 0 MM POWERCHART TB Skin Test Negative POWERCHART Specimen (Source) Anatomical Collection Method Collection Time Re ceived Time Location / / Volume Laterality 12/01/2014 4:26 PM CDT Historical Provider LAB HISTORICAL ORDERS Performing Organization Address City/State/ZIP Code Phon e Number POWERCHART documented in this encounter Visit Diagnoses Not on filedocumented in this encounter Additional Health Concerns Assessment Noted Time PHQ-9 Depression Total Score: 10 03/11/2013 2:22 PM CS T documented as of this encounter
--- OUTSIDE RECORDS SUMMARY | 2021-10-22 11:51 | XMS_ITS | Encounter Summary ---
:1970 Author Organization [facility] Address [address] [place] [address] Care Team Providers Name Role Phone Elsewhere, Pcp Primary Care Provider Unavailable Reason for Referral Outpatient (Routine) - Closed Specialty Diagnoses / Procedures Referred By Contact Refer red To Contact Diagnoses Screening Mammogram Breast Cancer Paul Abarca M.D. [facility] [place] [facility] Procedures BI Breast Screening Bilateral [address] [place], [place] [address] [address] Referral ID Status Reason Start Date Expiration Date Visits Requ ested Visits Authorized [id number] Closed 11/05/2019 11/04/2020 1 1 Reason for Visit Outpatient (Routine) - Closed Specialty Diagnoses / Procedures Referred By Contact Refer red To Contact Diagnoses Screening Mammogram Breast Cancer Paul Abacra M.D. [facility] [place] [facility] Procedures BI Breast Screening Bilateral [address] [place] [phone] Referral ID Status Reason Start Date Expiration Date Visits Requ ested Visits Authorized [id number] Closed 11/05/2019 11/04/2020 1 1 Encounter Details Date Type Department Care Team Description 11/08/2019 Hospital Encounter Department of Paul Abarca, Screen ing Mammogram Radiology in [facility] [id number] [place] [address] [place]io Guerre[place], [phone] [place] [phone] Social History Tobacco Use Types Packs/Day Years [...] More than 4 times per year 06/22/2019 adventist services? Do you belong to any clubs [...] the highest level of school Associate degree: Engrade program 06/22/2019 you have completed or the highest degree you have received? Sex Assigned at Date Recorded Not on file documented as of this encounter Medications at Time of Discharge Medication Sig Dispensed Refills Start Date End Date LORazepam (ATIVAN) 0.5 Take 0.5 mg by mouth 0 mg tablet daily as needed. nabumetone (RELAFEN) 500 Take 500 mg by mouth as 0 08/12/2018 mg tablet needed for pain. omeprazole (PriLOSEC) 20 Take 1 capsule by mouth 0 09/15/[address] capsule daily. simvastatin (ZOCOR) 20 Take 20 mg by mouth 0 08/09 mg tablet daily. traZODone (DESYREL) 50 Take 50 mg by mouth 0 07/2018 mg tablet Medrol Dose Pack scheduling ONLY. verapamil (VERELAN) 240 Take 240 mg by mouth 0 mg 24 hr capsule daily. documented as of this encounter Plan of Treatment Not on filedocumented as of this encounter Procedures Procedure Name Priority Date/Time Associated Comments Diagnosis BI BREAST RAD - Routine 11/08/2019 1:20 Screening Results for this SCREENING (most inpatients PM CDT Mammogram Breast procedu re are in BILATERAL and all Cancer the results outpatients) section. documented in this encounter Results BI Breast Screening Bilateral (11/08/2019 1:20 PM CDT) Anatomical Region Laterality Modality Breast, Breast Imaging RST LOS, Breast Imaging ARZ LOS, [place] [address] Bilateral Mammography Imaging FLA LOS Specimen (Source) Anatomical Collection Method Collection Time Re ceived Time Location / / Volume Laterality 11/09/2019 9:54 AM CDT Impressions 11/09/2019 9:59 AM CDT Negative. RECOMMENDATION: ??Annual Screening Mammo gram ASSESSMENT: ??BI-RADS: 1: Negative. Narrative 11/09/2019 9:59 AM CDT EXAM: ??BI BREAST SCREENING BILATERAL Current study was evaluated with a [employer] Aided Detection (CAD) system. INDICATION: ??Screening mammogram. COMPARISON: ??Prior exam(s) were availab le and reviewed for comparison. DENSITY: ??c. The breast(s) are heteroge neously dense, which may obscure small masses. FINDINGS: ??No mammographic findings of malignancy. Procedure Note Grey Stratton M.D. - 11/09/2019Formatt ing of this note might be different from the original. EXAM: BI BREAST SCREENING BILATERAL Current study was evaluated with a [employer] Aided Detection (CAD) system. INDICATION: Screening mammogram. COMPARISON: Prior exam(s) were available and reviewed for comparison. DENSITY: c. The breast(s) are heterogene ously dense, which may obscure small masses. FINDINGS: No mammographic findings of ma lignancy. IMPRESSION: Negative. RECOMMENDATION: Annual Screening Mammogr am ASSESSMENT: BI-RADS: 1: Negative. Paul LOPEZ BI PROCEDURES documented in this encounter Visit Diagnoses Diagnosis Screening Mammogram Breast Cancer documented in this encounter Additional Health Concerns Assessment Noted Time PHQ-9 Depression Total Score: 3 09/15/2015 2:08 PM CDT documented as of this encounter Care Teams Restaurant Expeditor Relationship Specialty Start Date End Date Elsewhere, Pcp PCP - General Internal Medicine 06/08/19 06/15/21 documented as of this encounter
--- OUTSIDE RECORDS SUMMARY | 2021-10-22 11:51 | XMS_ITS | Encounter Summary ---
:1970 Author Organization [facility] Address [address] [place] [address] Care Team Providers Name Role Phone Elsewhere, Pcp Primary Care Provider Unavailable Reason for Visit Reason Comments Shortness of Breath Encounter Details Date Type Department Care Team Description 06/08/2019 Emergency [place] [facility] Adis Cardenas, Shortness Of Breath (Primary Dx); Department M.D. Anxiety [id number] [address] Rogelio Guerrero [place] [phone] Social History Tobacco Use Types Packs/Day [...] or relatives? How often do you attend religious or More than 4 times per year 06/22/2019 sikhism services? Do you belong to any clubs or No 06/22/2019 organizations such as religious groups, unions, fraternal or athletic groups, or [...] Sign Reading Time Taken Comments Blood Pressure 129/65 06/08/2019 5:30 PM CDT Pulse 71 06/08/2019 5:30 PM CDT Temperature 36.4 ??C (97.5 ??F) 06/08/2019 3:55 PM CDT Respiratory Rate 14 06/08/2019 5:30 PM CDT Oxygen Saturation 99% 06/08/2019 5:30 PM CDT Inhaled Oxygen Concentration - - Weight - - Height - - Body Mass Index - - documented in this encounter Medications at Time of Discharge Medication Sig Dispensed Refills Start Date End Date LORazepam (ATIVAN) 0.5 Take 0.5 mg by mouth 0 mg tablet daily as needed. LORazepam (ATIVAN) 1 mg Take 1 tablet (1 mg 14 tablet 0 tablet total) by mouth 2 (two) times a day as needed for anxiety for up to 7 days. nabumetone (RELAFEN) 500 Take 500 mg by [...] documented as of this encounter ED Notes Adis Cardenas M.D. - 06/08/2019 5:49 PM CDT SUBJECTIVE CHIEF COMPLAINT/REASON FOR VISIT Shortness of Breath HISTORY OF PRESENT ILLNESS Two weeks of variable chest discomfort associated with shortness of breath. She is particularly concerned because she had a non-STEMI ND a many years ago. As a result of that she had a cardiac catheterization that showed clean arteries. She has had no significant cardiac events since then. She quit smoking month ago she has been prescribed Zoloft that she is not taking that and she is most concerned about her heart. And does not feel that she has anxiety. REVIEW OF SYSTEMS Constitutional: Negative. HENT: Negative. Respiratory: Negative. Cardiovascular: Negative. Gastrointestinal: Negative. Endocrine: Negative. Genitourinary: Negative. Musculoskeletal: Negative. Allergic/Immunologic: Negative. Neurological: Negative. OBJECTIVE Initial Vitals Temperature Pulse Rate Heart Rate Resp Rate Blood Pressure SpO2 06/08/19 1555 06/08/19 1600 06/08/19 1555 06/08/19 1555 06/08/19 1555 06/08/19 1555 36.4 ??C 78 72 13 150/77 99 % Pain Score 06/08/19 1557 0 - No pain PHYSICAL EXAMINATION Constitutional: Nursing note reviewed. HENT: Head: Normocephalic. Mouth/Throat: Mucous membranes are moist. Eyes: Pupils are equal, round, and reactive to light. Neck: Normal range of motion. Cardiovascular: Normal rate and regular rhythm. Pulses are palpable. Pulmonary/Chest: Effort normal. Musculoskeletal: Normal range of motion. Neurological: She is alert and oriented to person, place, and time. Skin: Skin is warm. Psychiatric: Pressured speech. Anxious features. Coherent. No diaphoresis or tremulousness. ASSESSMENT/PLAN Impression and Plan Chest discomfort with dyspnea. EKG shows no ischemic changes and troponin is normal. Remarkable improvement with lorazepam Suggested that she begin her already prescribed sertraline and offered her lorazepam 1 mg b.i.d. p.r.n. for 1 week for symptoms of anxiety. Differential Diagnoses Angina, acute coronary syndrome. Generalized anxiety. Costochondritis. I reviewed previous medical records including lab results and EKG images/reports. I personally reviewed the lab result(s) and my interpretation is normal. Final Diagnoses: as of Jun 08 1529 Shortness Of Breath Anxiety Adis Cardenas M.D. 06/09/19 1535 Kari Delgado R.N. - 06/08/2019 3:50 PM CDT Patient presents to ED with complaints of increased SOB and chest tightness that she has had over the past 2 weeks but the symptoms are worse today. Kari Delgado R.N. 06/08/19 1551 documented in this encounter Plan of Treatment Not on filedocumented as of this encounter Procedures Procedure Name Priority Date/Time Associated Diagnosis Comme nts TROPONIN T, 5TH STAT 06/08/2019 4:23 PM Result s for this GEN, P CDT procedure are i n the results section. ECG Routine 06/08/2019 3:46 PM Results f or this CDT procedure are i n the results section. documented in this encounter Results Troponin T, 5th Generation (06/08/2019 4:23 PM CDT) P athologist Signature Troponin T, 5th <6 <=10 ng/L 06/08/2019 CNFL gen 4:47 PM CDT Comment: Biotin has been identified by the hailey maradiaga as a potential interfering substance. ??Higher concentr ations of biotin may be found in multivitamins, hair/nail supple ments, and workout supplements. ??If the result does not ma [facility] clinical observations, repeat testing after patient refrains fr om the use of supplements for at least 12 hours. Specimen Anatomical Collection Method Collection Time Receive d Time (Source) Location / / Volume Laterality Blood (Blood, 06/08/2019 4:23 PM 06/08/19 20 4:26 Venous) CDT PM CDT Adis Cardenas M.D. LAB BLOOD ADD-ON Performing Organization Address [facility] Phon e Number [address] [address] [place] [address] System [address] ECG 12 Lead (06/08/2019 3:46 PM CDT) P athologist Signature Ventricular Rate 74 BPM MUSE ECG/Min MO Interval 164 ms MUSE QRSD Interval 88 ms MUSE QT Interval 436 ms MUSE QTC Interval 483 ms MUSE P [place] 54 degrees MUSE R [place] 10 degrees MUSE T Wave [place] 17 degrees MUSE Specimen Anatomical Collection Method Collection Time Receive d Time (Source) Location / / Volume Laterality 06/08/2019 3:46 PM 0 3:53 CDT PM CDT Impressions MUSE - 06/08/2019 3:53 PM CDT Normal sinus rhythm Prolonged QT When compared with ECG of 14-SEP-2015 17 :22, QT has lengthened Reviewed by KARLOS Goncalves Narrative This result has an attachment that is no t available. Procedure Note Owen Harmon M.D., Ph.D. - 0 IMPRESSION: Normal sinus rhythm Prolonged QT When compared with ECG of 14-SEP-2015 17 :22, QT has lengthened Reviewed by KARLOS Goncalves Adis W Nordahl M.D. ECG ORDERABLES Performing Organization Address City/State/ZIP Code Phon e Number MUSE MUSE NA documented in this encounter Visit Diagnoses Diagnosis Shortness Of Breath - Primary Anxiety documented in this encounter Administered Medications Inactive Administered Medications - up to 3 most recent administrations Medication Order MAR Action Action Date Dose Rate Site LORazepam tablet 1 mg (ATIVAN) Given 06/08/2019 5:03 PM CDT 1 mg 1 mg, oral, Once, On Fri06/08/19 at 1657, For 1 dose documented in this encounter Active and Recently Administered Medications Times are shown in CDT. Scheduled Medication Order 06/06/2019 06/07/2019 06/08/2019 LORazepam tablet 1 mg (ATIVAN) (COMPLETED) 1703 (Given - Provider: Kari Delgado R.N.) 1 mg, oral, Once, On Fri06/08/19 at 1657, For 1 dose documented in this encounter Additional Health Concerns Assessment Noted Time PHQ-9 Depression Total Score: 3 09/15/2015 2:08 PM CDT documented as of this encounter Care Teams Labelling Machine Operator Relationship Specialty Start Date End Date Elsewhere, Pcp PCP - General Internal Medicine 06/08/19 06/15/21 documented as of this encounter
--- OUTSIDE RECORDS SUMMARY | 2021-10-22 11:51 | XMS_ITS | Encounter Summary ---
:1970 Author Organization [facility] Address [address] [place] [address] Care Team Providers Name Role Phone Elsewhere, Pcp Primary Care Provider Unavailable Reason for Referral Outpatient (Routine) - Closed Specialty Diagnoses / Procedures Referred By Contact Refer red To Contact Diagnoses Palpitations Mahamed Campos M.D. [facility] Procedures ECG Heart Rhythm Monitor (Holter) [address] [place] [address] Referral ID Status Reason Start Date Expiration Date Visits Requ ested Visits Authorized [id number] Closed 06/09/2019 06/08/2020 1 1 Encounter Details Date Type Department Care Team Description 06/09/2019 Orders Only Department of Mahamed Campos Palpitation s (Primary Cardiovascular Diseases Janene Up Dx) in [facility] [address] [facility] [address] [place] [phone] Social History Tobacco Use Types Packs/Day Years [...] or relatives? How often do you attend mosque or More than 4 times per year 06/22/2019 yarsani services? Do you belong to any clubs or No 06/22/2019 organizations such as mosque groups, unions, [employer] or athletic groups, or school groups? How [...] on filedocumented as of this encounter Results HOLTER MONITOR - IN CLINIC EGG TESTER (06/10/2019 3:09 PM CDT) [facility] gist Method Time Signature VE Max Per [id number] HOLTER Hour Time SENTINEL Min Heart Rate [id number] HOLTER Time SENTINEL VE Max Per 7 [...] Recording Date HOLTER SENTINEL Max Heart Rate [id number] HOLTER Time SENTINEL SVE Max Per 9 count HOLTER Hour SENTINEL SVE Max Per [id number] HOLTER Hour Time SENTINEL VE Total Beats [...] in this encounter Visit Diagnoses Diagnosis Palpitations - Primary documented in this encounter Additional Health Concerns Assessment Noted Time PHQ-9 Depression Total Score: 3 09/15/2015 2:08 PM CDT documented as of this encounter Care Teams Agronomy Research Manager Relationship Specialty Start Date End Date Elsewhere, Pcp PCP - General Internal Medicine 06/08/19 06/15/21 documented as of this encounter
--- OUTSIDE RECORDS SUMMARY | 2021-10-22 11:51 | XMS_ITS | Encounter Summary ---
:1970 Author Organization [facility] Address [address] [place] [address] Care Team Providers Name Role Phone Unavailable Primary Care Provider Unavailable Encounter Details Date Type Department Care Team Description 03/15/2014 Hospital Encounter HX [facility] Juve Christiansen, ALVERTO, C.N.P., D. N.P. [address] [place] [address] (Wo rk) Social History Tobacco Use Types [...] or relatives? How often do you attend advent or More than 4 times per year 06/22/2019 church services? Do you belong to any clubs or No 06/22/2019 organizations such as advent groups, unions, fraternal or athletic groups, or [...] Sign Reading Time Taken Comments Blood Pressure 116/65 03/15/2014 7:32 AM BOAT CLEANER Pulse 66 03/15/2014 7:32 AM BOAT CLEANER Temperature - - Respiratory Rate 16 03/15/2014 7:32 AM BOAT CLEANER Oxygen Saturation - - Inhaled Oxygen Concentration - - Weight 88.2 kg (194 lb 7.1 oz) 03/15/2014 7:32 AM BOAT CLEANER Height 173 cm (5' 8.11) 03/15/2014 7:32 AM BOAT CLEANER Body Mass Index 29.47 03/15/2014 7:32 AM BOAT CLEANER documented in this encounter Progress Notes Juve Christiansen D.N.P., C.N.P. - 03/15/2014 7:19 AM CST [id number] CHIEF COMPLAINT/REASON FOR VISIT Followup hyperhidrosis. HISTORY OF PRESENT ILLNESS Patient is a 43-year-old female who presents to the clinic today with ongoing complaints of excessive sweating (please see my dictation from March 08, 2014). Currently morning cortisol has been obtained and noted to be normal. However evening cortisol level is still pending. TSH on 03/08/2014 was noted to be 2.63 with a free T4 of 1.2. A 24-hour urine catecholamine and metanephrines and a 24-hour urine 5-hydroxyindoleacetic acid is presently pending. She was provided these results yesterday. She feels that her hyperhidrosis is specifically secondary to menopause in which she underwent a vaginal h ysterectomy in 2004. She is coming in today to further discuss initiation of glycopyrrolate. She otherwise denies having any other further concerns or issues. PAST MEDICAL/SURGICAL HISTORY Reviewed. Please see chart. FAMILY HISTORY Reviewed. Please see chart. MEDICATIONS Reviewed. Please see chart. ALLERGIES Reviewed. Please see chart. PHYSICAL EXAMINATION GENERAL: Patient is an alert, well-nourished, 43-year-old female who otherwise appears to be in no acute distress. HEAD: Normocephalic, atraumatic. Remainder of further examination deferred at this time. IMPRESSION/REPORT/PLAN Reports of hyperhidrosis. PLAN: Discussed overall findings at length with the patient. Presently, at this time we did opt to initiate glycopyrrolate 1 mg tablets with instructions that she can take 1/2 tablet to 1 tablet by mouth 3 times a day as needed excessive sweating. Side effects of the medication and also information regarding the medication from the [facility] Education site were discussed. Medication check with hercurrent simvastatin and as-needed usage of Excedrin were discussed at length the patient. Again, side effects of the medication were discussed. The patient felt very comfortable with this treatment plan. We initiated this medication which we will plan on having her follow up if symptoms do not improve. She denied having further questions or concerns. The patient left our clinic in no acute distress. Ready to learn. No apparent learning barriers were identified. Learning preferences include listening. Explained diagnosis and treatment plan. Patient/Child/Caregiver expressed understanding of the content. Eb Phan.P./ManoloNMaryann/shimon Electronically Signed By: JUVE CHRISTIANSEN DNP, FNP On: 03/15/2014 12:22 PM Source: [facility] MHSDOLBEYNONRADSYS Document Id: [id number] CLEANER documented in this encounter Miscellaneous Notes Miscellaneous - Juve Christiansen D.N.P., C.N.P. - 03/15/2014 8:10 AM BOAT CLEANER Ambulatory Patient Summary [address] [id number] Visit Information Name: GERMAN NOVAK JATIN [facility] Number: [id number] Current Date: 03/15/2014 08:10:26 Physicians Attending Provider: JUVE CHRISTIANSEN DNP, FNP Primary Care Provider: JUVE CHRISTIANSEN DNP, FNP GERMAN NOVAK has been given the following [...] tablet) 1 Tablet(s), Oral, once a day glycopyrrolate (glycopyrrolate 1 mg oral tablet) 0.5-1 tab(s), Oral, three times a day as needed forExcessive sweating x 90 day(s) New Routed to [facility] [address] [address] simvastatin (simvastatin 20 mg oral tablet) 1 Tablet(s), Oral, once a day (at bedtime) for high cholesterols Please advise labs needed for further refills. Stop Taking the Following Medications: Medication list as of 03-15-14 08:10 Attention: If you have any medications at home that are not on this list, DO NOT take them until youcontact your provider for clarification. Give a copy of your medication list to your primary care provider. Update your medication list any time medications or doses are changed and carry your medication list at all times in case of emergency. Electronically Signed By: JUVE CHRISTIANSEN DNP, FNP Signed On:15-MAR-2014 08:08:17 Your Allergies & Intolerances Substance Reaction Symptoms [...] vasospasm Mrs. Novak was transferred from the [place] emergency department where he initial troponin was 0.06, and a CK-MB was 5.9. [facility] She was transferred to [facility] for evaluation of her elevation in her cardiac serial biomarkers. Due to her associated symptoms of headache and shortness of breath with the chest pain, a head CT was obtained upon arrival to [facility] and did not reveal any abnormalities. 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 Your Upcoming Appointments Date Time Location Provider 03/15/2014 08:30 [facility] Room 1 Attention: Contact your local Clinic if further appointment detail needed. Your Goals/Additional instructions: Future Appointment: in June for routine exam and echo Lab: _ Radiology: _ Need Prior Auth: _ NO Prior Auth: _ Consult: _ Release of MR_ PHI_ Source: [facility] POWERCHART Document Id: [id number] CLEANER Miscellaneous - Juve Christiansen D.N.P., C.N.P. - 03/15/2014 8:10 AM BOAT CLEANER Ambulatory Discharge Medication List [address] [id number] Visit Information Name: CAROL NOVAKNDFloyd STEINER [facility] Number: [id number] Visit Date: 03/15/2014 08:10:25 Attending Provider: JUVE CHRISTIANSEN DNP, FNP Primary Care Provider: JUVE CHRISTIANSEN DNP, FNP GERMAN NOVAK has been given the following [...] tablet) 1 Tablet(s), Oral, once a day glycopyrrolate (glycopyrrolate 1 mg oral tablet) 0.5-1 tab(s), Oral, three times a day as needed forExcessive sweating x 90 day(s) New Routed to [address] [address] simvastatin (simvastatin 20 mg oral tablet) 1 Tablet(s), Oral, once a day (at bedtime) for high cholesterols Please advise labs needed for further refills. Stop Taking the Following Medications: Medication list as of 03-15-14 08:10 Attention: If you have any medications at home that are not on this list, DO NOT take them until youcontact your provider for clarification. Give a copy of your medication list to your primary care provider. Update your medication list any time medications or doses are changed and carry your medication list at all times in case of emergency. Electronically Signed By: JUVE CHRISTIANSEN DNP, FNP Signed On:15-MAR-2014 08:08:17 Additional Information: Source: [facility] [employer] Document Id: [id number] CLEANER Miscellaneous - Damaris Medrano, L.P.N. - 03/15/2014 7:40 AM CST Meaningful Use Influenza Exclusion Meaningful Use Influenza Exclusion Entered On: 03/15/2014 7:40 BOAT CLEANER Performed On: 03/15/2014 7:40 BOAT CLEANER by DAMARIS MEDRANO LPN Influenza Vaccine Exclusion Influenza Vaccine Exclusion : Patient declined DAMARIS MEDRANO LPN - 03/15/2014 7:40 BOAT CLEANER Source: [facility] [employer] Document Id: [id number] BOAT CLEANER!3 CLEANER Miscellaneous - Damaris Medrano, L.P.NSonja - 03/15/2014 7:32 AM CST Adult Evening Sitter Intake/History Adult Evening Sitter Intake/History Entered On: 03/15/2014 7:39 BOAT CLEANER Performed On: 03/15/2014 7:32 BOAT CLEANER by DAMARIS MEDRANO LPN Intake Chief Complaint : F/U on blood work and go over diet Temperature Core : 36.1 DegC(Converted to: 97.0 DegF) (LOW) Peripheral Pulse Rate : 66 /min Respiratory Rate : 16 /min Heart Rhythm : Regular Systolic Blood Pressure : 116 mmHg Diastolic Blood Pressure : 65 mmHg NIBP Mean : 82 mmHg BP Location : Left upper extremity Blood Pressure Cuff Size : Large Height : 173 cm(Converted to: 5 ft 8 inch(es), 68 inch(es)) Actual Weight : 88.2 kg(Converted to: 194 lb 7 oz) Weight Source : Standing scale Dosing Weight Clinic : 88.2 kg Clinic BSA : 2.06 Body Mass Index : 29.47 kg/m2 DAMARIS MEDRANO LPN - 03/15/2014 7:32 BOAT CLEANER General Info Information Given By : Patient Languages : [place]er Is Patient Female and 13-50 no hysterectomy : No DAMARIS MEDRANO LPN - 03/15/2014 7:32 BOAT CLEANER Subjective Pain Symptoms : No DAMARIS MEDRANO LPN - 03/15/2014 7:32 BOAT CLEANER Dependent Habits Tobacco Use/Currently Using : No Tobacco Use/Last 12 months : No Tobacco Use/Advised to Quit : No Exposure to Tobacco Smoke : Care provider denies smoking in home Smoking Status : Former smoker DAMARIS MEDRANO LPN - 03/15/2014 7:32 BOAT CLEANER Tobacco Use Grid Type : Cigarettes Last Use : 04/09/12 DAMARIS MEDRANO LPN - 03/15/2014 7:32 BOAT CLEANER Alcohol Use : Yes DAMARIS MEDRANO LPN - 03/15/2014 7:32 BOAT CLEANER Caffeine Use Grid Caffeine Use : Current Type : Soft drinks Frequency : Daily Amount : 1 DAMARIS MEDRANO LPN - 03/15/2014 7:32 BOAT CLEANER Recreational Drug Use Grid Drug Use : None DAMARIS MEDRANO LPN - 03/15/2014 7:32 BOAT CLEANER ID Screen Drug Resistant Organism : No Travel Within Last 21 Days : No DAMARIS MEDRANO LPN - 03/15/2014 7:32 BOAT CLEANER Source: [facility] POWERCHART Document Id: [id number] BOAT CLEANER!47 CLEANER documented in this encounter Plan of Treatment Not on filedocumented as of this encounter Visit Diagnoses Not on filedocumented in this encounter Additional Health Concerns Assessment Noted Time PHQ-9 Depression Total Score: 10 03/11/2013 2:22 PM CS T documented as of this encounter
--- OUTSIDE RECORDS SUMMARY | 2021-10-22 11:51 | XMS_ITS | Encounter Summary ---
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, is having symptoms that pt would like to discuss Appointment Request (Routine) - Closed Specialty Diagnoses / Procedures Referred By Contact Refer red To Contact Family Medicine Referral ID Status Reason Start Date Expiration Date Visits Requ ested Visits Authorized [id number] Closed 09/09/2018 09/09/2019 1 1 Encounter Details Date Type Department Care Team Description 09/24/2018 Office Visit Department of Mahamed Campos Pain Chest Atypical Cardiovascular Diseases Janene Up (Primary Dx) in [facility] [address] [facility] [address] [place] [phone] Social History Tobacco Use Types Packs/Day Years [...] or relatives? How often do you attend voodoo or More than 4 times per year 06/22/2019 temple services? Do you belong to any clubs or No 06/22/2019 organizations such as voodoo groups, unions, fraternal or athletic groups, or [...] Sign Reading Time Taken Comments Blood Pressure 128/58 09/24/2018 10:06 AM CDT Pulse 82 09/24/2018 10:06 AM CDT Temperature - - Respiratory Rate - - Oxygen Saturation - - Inhaled Oxygen Concentration - - Weight 86.2 kg (190 lb 0.6 oz) 09/24/2018 10:06 AM CDT Height 175.5 cm (5' 9.09) 09/24/2018 10:06 AM CDT Body Mass Index 27.99 09/24/2018 10:06 AM CDT documented in this encounter Consult Notes Mahamed Campos M.D. - 09/24/2018 9:46 AM CDT CARDIOLOGY CONSULTATION NOTE SUBJECTIVE REASON FOR CONSULT Atypical chest pain. HISTORY OF PRESENT ILLNESS Laura is a pleasant 48-year-old female from [place], [place]. 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 She previously followed in [facility] with Dr. Paul pedraza back in 2011. At that time, statin and verapamil were discontinued. She subsequently re-presented in 2015 with recurrent atypical chest symptoms which were described as heartburn or retrosternal burning. She proceeded straight to a coronary angiogram which I have personallyreviewed. She had mild tortuosity of the vessels, but no obstructive lesions and no definite vasospasm. The formal catheterization report suggested normal coronary arteries. Since then, she has been maintained on simvastatin. She was also advised to restart verapamil. She also has a history of bilateral hip dysplasia resulting in severe bilateral hip pain. This has been the primary impediment to regular aerobic activity. She has undergone evaluation in the Orthopedic Clinic ([facility] in the [facility]). She is not felt to be a surgical candidate at this time.Injection therapy provided minimal relief. There was discussion of physical therapy. It is in this context that Laura presents with recurrent burning-type chest discomfort. She also describes a dizzy sensation which she further elaborates as a sense that I can't catch my breath. When she is able to catch a good breath she says that her symptoms improve. She also has a pressure sensation in the neck and head. She describes herself as active, but does not participate in a formal exercise program. She gets her activity primarily walking her dog and taking the stairs. 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 She is with 2 kids. She is a social smoker. Social alcohol use. FAMILY HISTORY Mom is alive at age 78 with good health. Dad at 77 who following complications of brain bleed and bur hole evacuation. He had history of ischemic heart disease complicated by congestive heartfailure. He was a smoker. The patient has 3 siblings, 2 brothers, 1 sister. They are identified with hypertension and thyroid disorder. OBJECTIVE PHYSICAL EXAMINATION Vital Signs: Height 175.5 cm, weight 86.2 kg. Heart rate 82 regular. Blood pressure 128/58. General: This is a healthy-appearing middle-aged female sitting comfortably in no acute distress. Eyes: Anicteric. ENT: The mucous membranes are moist. Lungs: Clear to auscultation without dullness or wheezing breath sounds. Bilateral carotid upstrokesnormal amplitude without a bruit. Bilateral radial pulse 4/4 regular. Heart: Central venous pressure normal. Cardiac: Auscultation normal. Extremities: Warm without edema. Skin: No visible ecchymosis, bruising or breakdown. Psychiatric: Alert, oriented, responding appropriately. Neurologic: Afocal. ASSESSMENT / PLAN #1 Atypical chest pain #2 Bilateral hip pain due to hip dysplasia #3 History of [place] 2010 attributed to vasospasm #4 Tobacco abuse PLAN: 1. It was a pleasure to visit with Laura in consultation. Overall, I do not elicit concerning signs or symptoms that would suggest ischemic heart disease or heart failure. Her activity levels are modest and she does not participate in formal exercise program. This is partly due to her chronic hip painfrom hip dysplasia. I do think that she would benefit from some stress relieving and relaxation activities. Yoga may be an ideal exercise for her given the inability to walk or utilize aerobic machinesbecause of her hip pain. I did discuss with her how to access online yoga videos via [employer]. 2. I would advise 3 to 6 months of working on conditioning and stress relieving behaviors. If this provides suboptimal improvement in her atypical chest symptoms, then we could consider medical therapyfor endothelial dysfunction. 3. I have emphasized at great length the importance of quitting smoking. I emphasized the relationship between endothelial dysfunction and vasospasm. Twenty-five minutes in consultation with greater than 50% in direct hytf-up-ybfu counseling. CT CT Job ID: [id number] documented in this encounter Plan of Treatment Not on filedocumented as of this encounter Visit Diagnoses Diagnosis Pain Chest Atypical - Primary documented in this encounter Additional Health Concerns Assessment Noted Time PHQ-9 Depression Total Score: 3 09/15/2015 2:08 PM CDT documented as of this encounter
--- OUTSIDE RECORDS SUMMARY | 2021-10-22 11:51 | XMS_ITS | Encounter Summary ---
:1970 Author Organization [facility] Address [address] [place] [address] Care Team Providers Name Role Phone Unavailable Primary Care Provider Unavailable Encounter Details Date Type Department Care Team Description 06/17/2013 Hospital Encounter HX [facility] Tiffanie Christiansen, ALVERTO, C.N.P., D.N.P. [address], [place] [phone] (Wo rk) Social History [...] or relatives? How often do you attend rastafari or More than 4 times per year 06/22/2019 voodoo services? Do you belong to any clubs or No 06/22/2019 organizations such as rastafari groups, unions, fraternal or athletic groups, or [...] - - Height 173 cm (5' 8.11) 06/17/2013 7:52 AM CDT Body Mass Index - - documented in this encounter Miscellaneous Notes Miscellaneous - Tiffanie Christiansen D.N.P., C.N.P. - 06/18/2013 4:10 PM CDT Normal Results Letter 18 June 2013 GERMAN NOVAK [address] [facility] [id number] Dear GERMAN NOVAK, I am pleased to report that your cholesterols are much better! It is recommended to target your LDL (bad) cholesterol to less than 70 due to your heart history. We could either recheck this in one yearwith no changes to your medication, or we could slightly increase your cholesterol medication to improve your cholesterol numbers. Please let me know what you would like to do! If you have questions orconcerns, please do not hesitate to call our office. Result Name Current Result Previous Result Normal Range ALT (U/L) 17 06/17/2013 15 - 37 Cholesterol (mg/dL) 182 06/17/2013 (H) 271 03/11/2013 0 - 200 Trig (mg/dL) 114 06/17/2013 (H) 171 03/11/2013 9 - 150 HDL (mg/dL) (H) 67 06/17/2013 (H) 85 03/11/2013 35 - 60 LDL Calculated (mg/dL) (L) 92 06/17/2013 (H) 151 03/11/2013 100 - 129 Chol/HDL Ratio 3 06/17/2013 3 03/11/2013 Sincerely, TIFFANIE CHRISTIANSEN [address] [place] [address] Electronic Signature Electronically Signed By: TIFFANIE CHRISTIANSEN DNP, FNP On: 18 June 2013 This document has images extracted. Source: [facility] POWERCHART Document Id: [id number] Electronically signed by Vipin [facility] Lead Level Designer [id number] at 08/06/2016 9:02 AM CDT documented in this encounter Plan of Treatment Not on filedocumented as of this encounter Procedures Procedure Name Priority Date/Time Associated Comments Diagnosis LIPID PANEL, S Routine 06/17/2013 7:55 Results fo r this AM CDT procedure are i n the results section. ALANINE AMINOTRANSFERASE Routine 06/17/2013 7:55 Results for this (ALT), S/P AM CDT procedure are i n the results section. documented in this encounter Results ALT (Alanine Aminotransferase) (06/17/2013 7:55 AM CDT) P athologist Signature Alanine 17 15 - 37 UL POWERCHART Amniotransferas e, LD Specimen (Source) Anatomical Collection Method Collection Time Re ceived Time Location / / Volume Laterality Blood 06/17/2013 7:55 AM CDT Tiffanie Christiansen HOT MAN, C.N.P., D.N.P. LAB BLOOD ADD- ON Performing Organization Address City/[facility] Code Phon e Number POWERCHART (ABNORMAL) Lipid Panel (06/17/2013 7:55 AM CDT) P athologist Signature Cholesterol, 182 0 - 200 POWERCHART Total MGDL Comment: <200 mg/dL Desirable 200-239 mg/dL Borderline High >239 mg/dL High HX HDL 67 (H) 35 - 60 MGDL POWERCHART Comment: > 60 mg/dL Desirable 40 ? 60 mg/dL Low Risk <40 mg/dL Undesirable Triglycerides 114 9 - 150 MGDL POWERCHART Comment: <150 mg/dL Desirable 150-199 mg/dL Borderline High 200-499 mg/dL High > 499 Very High Calculated LDL 92 (L) 100 - 129 MGDL POWERCHART Total Cholesterol/HDL Ratio 3 PO WERCHART Specimen (Source) Anatomical Collection Method Collection Time Re ceived Time Location / / Volume Laterality Blood 06/17/2013 7:55 AM CDT Tiffanie Christiansen APRN, C.N.P., D.N.P. LAB BLOOD ADD- ON Performing Organization Address City/State/[facility] Code Phon e Number POWERCHART documented in this encounter Visit Diagnoses Not on filedocumented in this encounter Additional Health Concerns Assessment Noted Time PHQ-9 Depression Total Score: 03/11/2013 2:22 PM CS T documented as of this encounter
--- OUTSIDE RECORDS SUMMARY | 2021-10-22 11:51 | XMS_ITS | Encounter Summary ---
:1970 Author Organization [facility] Address [address] [place] [address] Care Team Providers Name Role Phone Unavailable Primary Care Provider Unavailable Encounter Details Date Type Department Care Team Description 09/14/2015 Hospital Encounter HX NO MAPPING Hilario, Helena Perdomo, YANG N, C.N.P., D.N.P. [address] [place], [place] [phone] (Wo rk) Social History [...] More than 4 times per year 06/22/2019 sikh services? Do you belong to any clubs [...] Sig Dispensed Refills Start Date End Date aspirin 81 mg chewable Chew 4 tablets once. 0 09/201509/24/2018 tablet documented as of this encounter Plan of Treatment Not on filedocumented as of this encounter Visit Diagnoses Not on filedocumented in this encounter Additional Health Concerns Assessment Noted Time PHQ-9 Depression Total Score: 10 03/11/2013 2:22 PM CS T documented as of this encounter
--- OUTSIDE RECORDS SUMMARY | 2021-10-22 11:51 | XMS_ITS | Encounter Summary ---
:1970 Author Organization [facility] Address [address] [place] [address] Care Team Providers Name Role Phone Unavailable Primary Care Provider Unavailable Encounter Details Date Type Department Care Team Description 09/14/2016 Hospital Encounter HX [facility] Alexa Abarca M.D. [address] [place] [address] ERNESTO Ramirez [phone] (Wo rk) Social History Tobacco Use Types Packs/Day Years Used Date Smoking Tobacco: Some Days Alcohol Habits Answer Date Recorded How often [...] or relatives? How often do you attend pentecostal or More than 4 times per year 06/22/2019 gnosticism services? Do you belong to any clubs or No 06/22/2019 organizations such as pentecostal groups, unions, fraternal or athletic groups, or [...] Sign Reading Time Taken Comments Blood Pressure 102/78 09/14/2016 10:19 AM CDT Pulse 68 09/14/2016 10:19 AM CDT Temperature - - Respiratory Rate 16 09/14/2016 10:19 AM CDT Oxygen Saturation - - Inhaled Oxygen Concentration - - Weight 85.5 kg (188 lb 7.9 oz) 09/14/2016 10:19 AM CDT Height 173 cm (5' 8.11) 09/14/2016 10:19 AM CDT Body Mass Index 28.57 09/14/2016 10:19 AM CDT documented in this encounter Medications at Time of Discharge Medication Sig Dispensed Refills Start Date End Date omeprazole (PriLOSEC) 20 Take 1 capsule by 0 10/[address] capsule mouth daily. aspirin 81 mg chewable Chew 4 tablets once. 0 09/201509/24/2018 tablet documented as of this encounter Progress Notes Alexa Abarca M.D. - 09/14/2016 11:45 AM CDT Clinic Full Note CHIEF COMPLAINT/REASON FOR VISIT Extreme sore throat, body aches, fever, started yesterday HISTORY OF PRESENT ILLNESS Starting yesterday, she has had a severe sore throat with myalgias and low- grade fever. She has no nausea but has decreased appetite. She is drinking fluids to keep her hydration. She has no congestion rhinorrhea, no sinus pain, and no rash. She has strep exposure. She denies cough or wheeze. MEDICATIONS aspirin 81 mg oral tablet, 324 mg, 4 tab(s), Chewed, Once simvastatin 20 mg oral tablet, 20 mg, 1 tab(s), for high cholesterolsPlease advise labs needed for further refills., PO, Bedtime, 0 refills topiramate 25 mg oral capsule, 25 mg, 1 cap(s), PO, Daily verapamil 40 mg oral tablet, 40 mg, 1 tab(s), Once daily, PO ALLERGIES morphine narcotic analgesics (itch) Percocet 5/325 Toradol PAST MEDICAL HISTORY Chronic Echocardiogram abnormal History of - myocardial infarction Hyperlipidemia Major Depressive Disorder, Recurrent Episode, Unspecified Degree Historical No historical problems PROCEDURES/SURGICAL HISTORY C VAGINAL HYSTERECTOMY - 06/06/04 (06/06/2004), LEEP procedure of cervix (08/22/1996), Total abdominal hysterectomy (corpus and cervix), with or without removal of tube(s), with or without removal of ovary(s);... SOCIAL HISTORY Date Time: 09/14/2016 10:19 Tobacco: Smoking Status: Former smoker Exposure: Care provider denies smoking in home Alcohol: Use: No Results Found Recreational Drugs: Use: None Type: No Results Found FAMILY HISTORY Mother:Positive: Hypertension; Hypothyroidism Father:Positive: Peripheral vascular disease Sister:Positive: Hypothyroidism Brother:Positive: Hypertension Brother:Positive: Hypertension SYSTEMS REVIEW CONSTITUTIONAL: No fevers, chills, sweats, weight loss, or fatigue. EYES: No blurriness or diplopia. EARS, NOSE, MOUTH, THROAT: See HPI. CARDIOVASCULAR: No chest pain or palpitations. RESPIRATORY: See HPI. GASTROINTESTINAL: No nausea, vomiting, diarrhea, constipation, abdominal pain, or black bloody or tarry stools. VITAL SIGNS T: 37.3 ??C (Core) HR: 68 RR: 16 BP: 102 / 78 HT: 173 cm WT: 85.5 kg BMI: 28.57 PHYSICAL EXAMINATION GENERAL: No acute distress. Alert and oriented x3. Normal affect. Appropriate dress and eye contact. EYE: Conjunctiva is clear. ENT: Tympanic membranes are clear. Canals are patent. Face is nontender. Nares clear. Oropharynx shows severely red tonsils that are enlarged . NECK: Supple. Shotty submandibular lymphadenopathy is present CARDIOVASCULAR: Regular rate and rhythm without murmur, gallop or rub. LUNGS: Clear to auscultation bilaterally. ABDOMEN: Soft and nontender. SKIN: Clear. IMPRESSION/REPORT/PLAN Sore Throat (ST) NOS If not feeling better in 3 days or if worsening, recommend reevaluation. Side effects of treatmentsdiscussed. Ordered: amoxicillin, 500 mg = 1 cap(s), PO, 3xDay, # 30 cap(s), 0 Refill(s), Acute, other reason (Rx) OV Est Pt Level 3 - 36440 - 15 min Rapid Strep Confirmation Electronically Signed By: ALEXA ABARCA MD On: 09/14/2016 11:48 AM Source: [employer] POWERCHART Document Id: [id number] documented in this encounter Miscellaneous Notes Miscellaneous - Alexa Abarca M.D. - 09/14/2016 11:41 AM CDT Ambulatory Patient Summary [address] [phone] Visit Information Name: GERMAN NOVAK [facility] Number: [id number] Current Date: 09/14/2016 11:41:20 Physicians Attending Provider: ALEXA ABARCA MD Primary Care Provider: PCP, ELSEWHERE YUSEFFERNANDOIVÁNFloyd STEINER has been given the following list of [...] Take Indications/Special Instructions/Comments/Notes for Patient Medication Changes/Routing amoxicillin (Amoxicot 500 mg oral capsule) 1 cap, Oral, three times a day New simvastatin (simvastatin 20 mg oral tablet) 1 Tablet(s), Oral, once a day (at bedtime) for high cholesterols Please advise labs needed for further refills. verapamil (verapamil 40 mg oral tablet) 1 Tablet(s), Oral Once daily Stop Taking the Following Medications: aspirin (aspirin 81 mg oral tablet) topiramate (topiramate 25 mg oral capsule) Medication list as of 09-14-16 11:41 Attention: If you have any medications at home that are not on this list, DO NOT take them until youcontact your provider for clarification. Give a copy of your medication list to your primary care provider. Update your medication list any time medications or doses are changed and carry your medication list at all times in case of emergency. Electronically Signed By: ALEXA ABARCA MD Signed On:14-SEP-2016 11:41:17 Your Allergies & Intolerances Substance Reaction Symptoms [...] vasospasm Mrs. Novak was transferred from the [place] emergency department where he initial troponin was 0.06, and a CK-MB was 5.9. [facility]. She was transferred to [place] [...] Your Upcoming Appointments Date Time Location Provider No Appointments found Attention: Contact your local Clinic if further appointment detail needed. Consider Using Patient Online Services Patient Online Services is a secure online and Mobile application that lets you: ?? View lab and test results ?? View portions of your medical record including clinical notes, immunizations and discharge summaries ?? Request an appointment or medication refill ?? Review your appointment schedule ?? Send secure messages to your care team Its easy to create an account if you dont have one. Go to [email or web address] and click on Create Your Account. Then, follow the directions to complete the online form. Youll be asked for your [facility] number which you can find at the top of this document. Your Goals/Additional instructions: Source: [facility] POWERCHART Document Id: [id number] A ELENA Boateng - Alexa Abarca M.D. - 09/14/2016 11:41 AM CDT Ambulatory Discharge Medication List [address] [place] [phone] Visit Information Name: GERMAN NOVAK [facility] Number: [id number] Current Date: 09/14/2016 11:41:19 Attending Provider: ALEXA ABARCA MD Primary Care Provider: PCP, DESEAN GERMAN NOVAK has been given the following list of medications: Your Medications It is important to take your medications as directed. Use a pill box or chart to help remind you to take your medications. Please let your doctor or nurse know if you have problems taking your medications. Medication/Strength How to Take Indications/Special Instructions/Comments/Notes for Patient Medication Changes/Routing amoxicillin (Amoxicot 500 mg oral capsule) 1 cap, Oral, three times a day New simvastatin (simvastatin 20 mg oral tablet) 1 Tablet(s), Oral, once a day (at bedtime) for high cholesterols Please advise labs needed for further refills. verapamil (verapamil 40 mg oral tablet) 1 Tablet(s), Oral Once daily Stop Taking the Following Medications: aspirin (aspirin 81 mg oral tablet) topiramate (topiramate 25 mg oral capsule) Medication list as of 09-14-16 11:41 Attention: If you have any medications at home that are not on this list, DO NOT take them until youcontact your provider for clarification. Give a copy of your medication list to your primary care provider. Update your medication list any time medications or doses are changed and carry your medication list at all times in case of emergency. Electronically Signed By: ALEXA ABARCA MD Signed On:14-SEP-2016 11:41:17 Additional Information: Source: [facility] POWERCHART Document Id: [id number] A ELENA Boateng - Lori Maciel L.PJayla - 09/14/2016 10:19 AM CDT Adult Cap Maker Intake/History Adult Cap Maker Intake/History Entered On: 09/14/2016 10:22 CDT Performed On: 09/14/2016 10:19 CDT by LORI MACIEL LPN Intake Chief Complaint : Extreme sore throat, body aches, fever, started yesterday Temperature Core : 37.3 DegC(Converted to: 99.1 DegF) Peripheral Pulse Rate : 68 /min Respiratory Rate : 16 /min Heart Rhythm : Regular Systolic Blood Pressure : 102 mmHg Diastolic Blood Pressure : 78 mmHg NIBP Mean : 86 mmHg BP Location : Left upper extremity Blood Pressure Cuff Size : Large Height : 173 cm(Converted to: 5 ft 8 inch(es), 68 inch(es)) Actual Weight : 85.5 kg(Converted to: 188 lb 8 oz) Weight Source : Standing scale Dosing Weight Clinic : 85.5 kg Clinic BSA : 2.03 Body Mass Index : 28.57 kg/m2 LORI MACIEL LPN - 09/14/2016 10:19 CDT General Info Languages : Faroese Is Patient Female and 13-50 no hysterectomy : No LORI MACIEL LPN - 09/14/2016 10:19 CDT Subjective Pain Symptoms : Yes LORI MACIEL LPN - 09/14/2016 10:19 CDT Pain Scale Pain Scale Verbal 0-10 : Open LORI MACIEL LPN - 09/14/2016 10:19 CDT Pain Pain Assessment Grid Pain 1 Location : Other: sore throat and body aches LORI MACIEL LPN - 09/14/2016 10:19 CDT Dependent Habits Exposure to Tobacco Smoke : Care provider denies smoking in home Smoking Status : Former smoker Tobacco 2A : Yes Tobacco Use/Currently Using : No Tobacco Use/Last 30 Days : No Tobacco Use/Last 12 months : No LORI MACIEL LPN - 09/14/2016 10:19 CDT Caffeine Use Grid Caffeine Use : Current Type : Soft drinks Frequency : Daily Amount : 1 LORI MACIEL LPN - 09/14/2016 10:19 CDT Recreational Drug Use Grid Drug Use : None LORI MACIEL LPN - 09/14/2016 10:19 CDT Source: [facility] POWERCHART Document Id: [id number] CDT!45 documented in this encounter Plan of Treatment Not on filedocumented as of this encounter Procedures Procedure Name Priority Date/Time Associated Diagnosis Comme nts RAPID STREP A Routine 09/14/2016 10:29 AM Results for this SCREEN CDT procedure are i n the results section. RAPID STREP A Routine 09/14/2016 10:29 AM Results for this SCREEN CDT procedure are i n the results section. documented in this encounter Results Rapid Strep A Screen (09/14/2016 10:29 AM CDT) [facility] Method Time Signature HXRapid Strep POWERCHART Confirmation HXFinal See Scanned POWERCHART Report Specimen Anatomical Collection Method Collection Time Receive d Time (Source) Location / / Volume Laterality Throat 09/14/2016 10:29 09/14/2016 AM CDT 10:29 AM CDT Alexa Abarca M.D. LAB MICROBIOLOGY - GENERAL O RDERABLES Performing Organization Address City/State/ZIP Code Phon e Number POWERCHART POWERCHART NA Rapid Strep A Screen (09/14/2016 10:29 AM CDT) [facility] Method Time Signature HXStrep A POWERCHART Screen Rapid HXFinal Negative for POWERCHART Strep Group A by rapid screen. HXFinal Culture POWERCHART confirmation to follow. Specimen (Source) Anatomical Collection Method Collection Time Re ceived Time Location / / Volume Laterality Throat 09/14/2016 10:29 AM CDT Alexa Abarca M.D. LAB MICROBIOLOGY - GENERAL O RDERABLES Performing Organization Address City/State/ZIP Code Phon e Number POWERCHART documented in this encounter Visit Diagnoses Not on filedocumented in this encounter Additional Health Concerns Assessment Noted Time PHQ-9 Depression Total Score: 3 09/15/2015 2:08 PM CDT documented as of this encounter
--- OUTSIDE RECORDS SUMMARY | 2021-10-22 11:51 | XMS_ITS | Encounter Summary ---
:1970 Author Organization [facility] Address [address] [place] [address] Care Team Providers Name Role Phone Elsewhere, Pcp Primary Care Provider Unavailable Reason for Visit Outpatient (Routine) - Closed Specialty Diagnoses / Referred By Contact Referred To Contact Procedures Cardiovascular Diseases / Diagnoses Pain Chest Atypical Mahamed Campos, [facility] Cardiovascular Disease M.D. [address] [place] [address] Referral ID Status Reason Start Date Expiration Date Visits Requ ested Visits Authorized [id number] Closed 06/10/2019 06/09/2020 1 1 Encounter Details Date Type Department Care Team Description 06/24/2019 Virtual Visit Department of Ashlie Jacobs Pain Chest Atypical; Cardiovascular Medicine Janene Maldonado Angina Prinzmetal (HCC) in [facility] [address] [place] [phone] Social History Tobacco Use Types Packs/Day Years [...] or relatives? How often do you attend protestant or More than 4 times per year 06/22/2019 restorationist services? Do you belong to any clubs or No 06/22/2019 organizations such as protestant groups, unions, fraternal or athletic groups, or [...] highest level of school Associate degree: academ [employer] program 06/22/2019 you have completed or the highest degree you have received? Sex Assigned at Date Recorded Not on file documented as of this encounter Consult Notes Ashlie Jacobs M.D. - 06/24/2019 9:45 AM CDT [id number] PHONE VISIT A phone call care discussion in the setting of the national COVID19 pandemic was completed consistent with [facility] institutional direction. This visit was peformed by telephone call today. Referred by : Mahamed Campos M.D. HISTORY OF PRESENT ILLNESS Ms. Laura Novak is a 48 y.o. female who had presented to the emergency department on 06/08/2019, and was subsequently seen by my colleague Dr. Campos for symptoms of chest discomfort. She has a past medical history consistent with coronary spasm, treated with verapamil. The patient is quite pleasant, and both understanding and appreciative of the phone call today in light of the COVID-19 pandemic resulting in her [id number] appointment being rescheduled. 2010: She reportedly had atypical symptoms described as chest heaviness, left arm and neck discomfort, as well as dyspnea. She had presented with a non-STEMI with evidence of elevated cardiac biomarkers, andpresence of inferolateral wall akinesis At that time she did undergo a coronary angiogram on 06/20/2010-that demonstrated: 1. Normal coronary arteries 2. Negative methergine Note, following the administration of Methergine, the patient experienced her classic chest and throat discomfort, although no coronary spasms were noted. 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 She has since continued on verapamil 240 mg daily. She has been intolerant of nitrates due to headaches. 2016: Given symptoms of dyspnea and neck tightness, and epigastric discomfort, she again underwent a coronary angiogram which was normal and did not demonstrate coronary atherosclerosis. At some point she had discontinued her verapamil, and this was restarted again. Was also question whether her symptoms could be GI related. 2019: She was well until approximately a month ago, when she started experiencing intermittent dyspnea, palpitations and neck tightness. For the most part she describes her symptoms being constant all day long, and worse with laying down. She denies any chest pain. She did have a significant episode a couple weeks ago. Symptoms are significantly improved. However even while talking to me, she reports feeling mildly short of breath (specially when talking). She also endorses experiencing dyspnea on exertion. She does not feel particularly anxious or depressed, and does not think that there is a mood component to her symptoms. On 06/08/2019, she ate cord her primary care physician for consultation, and was prompted by the phone schedulers to seek evaluation in the emergency department. Lastly, she also reports experiencing joint pains for approximately the last 2 weeks, although they are better over the last 2 days. She has never previously been on a beta-katie. Past medical history significant for undergoing hysterectomy, without oophorectomy at age 33. Family history: Father with a CABG in his 60s. He also had some valve disorder. History of CHF. Mother no premature coronary atherosclerosis or other cardiovascular disease. Social history: She is a prior smoker with a 5 pack-year smoking history, and smoked intermittently for about 30 years. No significant alcohol usage. DIAGNOSTICS I have personally reviewed the patient's available current laboratory, imaging, and other diagnosticstudies. ECG from 06/08/2019-largely unrevealing with the exception of a prolonged QT. Holter monitor 06/10/2019-no significant arrhythmias to explain the patient's episodes of chest discomfort. Laboratory studies: Her troponin on 06/08/2019 was negative. Outside laboratory studies from [facility]: 06/16/2019: TSH less than 0.01 (normal range 0.46-4.7) T4 was 3.3 (normal range 0.78-2.19) AST 60 ALT December: HDL 59 LDL 82 Triglycerides 150 She was supposedly also tested for flu and COVID-19, both of which were negative. (results not personally reviewed). ASSESSMENT / PLAN #1 Pain Chest Atypical The exact etiology of her chest pain is unclear, and may potentially be related to the prior empiricdiagnosis of coronary spasm. She has previously been on verapamil, which she continues. It is also possible that her symptoms may be a manifestation of hypothyroidism, and she was asked toseek consultation regarding further management of this. Given her negative coronary angiogram in 2016, it is very unlikely that her symptoms are due to nakul macrovascular coronary obstruction, particularly in light of a negative troponin. Additionally, her symptoms may be related to microvascular disease of the coronary arteries. For now, after discussion of the differential diagnosis, the patient favor waiting before proceedingwith additional testing. I personally do not think that these are urgent either. Will set up follow-up visit in approximately 1.5 months to follow-up. The patient was advised that if she had worsening symptoms, to give us a call back. Decision Priority (Choose one): Elective Next visit preference: Face to face (or non face to face visit). I spent 47 minutes reviewing records, testing, discussion and follow up. documented in this encounter Plan of Treatment Not on filedocumented as of this encounter Visit Diagnoses Diagnosis Pain Chest Atypical Angina Prinzmetal (HCC) documented in this encounter Additional Health Concerns Assessment Noted Time PHQ-9 Depression Total Score: 3 09/15/2015 2:08 PM CDT documented as of this encounter Care Teams Cyber Incident Analyst Relationship Specialty Start Date End Date Elsewhere, Pcp PCP - General Internal Medicine 06/08/19 06/15/21 documented as of this encounter
--- OUTSIDE RECORDS SUMMARY | 2021-10-22 11:51 | XMS_ITS | Encounter Summary ---
:1970 Author Organization [facility] Address [address] [place] [address] Care Team Providers Name Role Phone Elsewhere, Pcp Primary Care Provider Unavailable Reason for Referral MRI/CAT/PET Scan (Routine) - Closed Specialty Diagnoses / Procedures Referred By Contact Refer red To Contact Radiology Diagnoses Pain Right Lower Quadrant Penny Palacios M.D. [facility] [place] [facility] Procedures CT Abdomen Pelvis with IV Contrast [place] [facility] ABD&PELVIS [address] [place] [address] Referral ID Status Reason Start Date Expiration Date Visits Requ ested Visits Authorized [id number] Closed 11/04/2019 11/03/2020 1 1 Reason for Visit MRI/CAT/PET Scan (Routine) - Closed Specialty Diagnoses / Procedures Referred By Contact Refer red To Contact Radiology Diagnoses Pain Right Lower Quadrant Penny Palacios M.D. [facility] [place] [facility] Procedures CT Abdomen Pelvis with IV Contrast [place] ABD&PELVIS [address] [facility] [address] [place] [address] Referral ID Status Reason Start Date Expiration Date Visits Requ ested Visits Authorized [id number] Closed 11/04/2019 11/03/2020 1 1 Encounter Details Date Type Department Care Team Description 11/04/2019 Hospital Encounter Department of Penny Palacios Pain Right Lower Radiology in Rogelio Coleman M.D. [place], [place] [address] [place] [address] [address] [address] [place], [place] [phone] (Work) [phone] Social History Tobacco Use Types Packs/Day Years [...] or relatives? How often do you attend mu-ism or More than 4 times per year 06/22/2019 uatsdin services? Do you belong to any clubs or No 06/22/2019 organizations such as mu-ism groups, unions, fraternal or athletic groups, or [...] the highest level of school Associate degree: [employer] program 06/22/2019 you have completed or the [...] Procedure Name Priority Date/Time Associated Comments Diagnosis CT ABDOMEN PELVIS RAD - Routine 11/04/2019 10:56 Pain Right Lower R esults for this WITH IV CONTRAST (most inpatients AM CDT Quadrant procedu re are in and all the results outpatients) section. documented in this encounter Results CT Abdomen Pelvis with IV Contrast (11/04/2019 10:56 AM CDT) Anatomical Region Laterality Modality Abdomen, Pelvis, Abdominal RST LOS, Abdominal ARZ LOS, N/A Computed Tomography Abdominal FLA LOS Specimen (Source) Anatomical Collection Method Collection Time Re ceived Time Location / / Volume Laterality 11/04/2019 11:03 AM CDT Impressions 11/04/2019 11:11 AM CDT No appendicitis, bowel obstruction or di verticulitis. Equivocal mild colitis. Narrative 11/04/2019 11:11 AM CDT EXAM: CT ABDOMEN PELVIS WITH IV CONTRAST COMPARISON: 09/14/2015 CT FINDINGS: LUNG BASES: No consolidation or pleural effusion. LIVER: No suspicious mass or intrahepati c biliary ductal dilatation. GALL BLADDER: No radiopaque stones. PANCREAS: No suspicious mass. SPLEEN: No splenomegaly. ADRENAL GLANDS: No suspicious nodularity . KIDNEYS AND URETERS: No hydronephrosis. Symmetric nephrograms. Probable renal cysts, too small to characterize. INTRAPERITONEAL SPACE: No pneumoperitone um or significant free fluid in the abdomen or pelvis. Trace mesenteric stra nding. STOMACH AND SMALL BOWEL: No dilated loop s of small bowel or evidence for bowel obstruction. COLON: No diverticulitis. Cannot exclude subtle colonic wall thickening, however the colon is relatively decompressed, li miting evaluation. APPENDIX: No evidence for acute appendic itis. MAJOR VASCULATURE: No abdominal aortic a neurysm. LYMPH NODES: No lymphadenopathy in the a bdominal or pelvis by size criteria. PELVIS: Urinary bladder is unremarkable. ANTERIOR ABDOMINAL WALL: Unremarkable. BONES/OTHER SOFT TISSUES: No suspicious bone lesions. ??Mild sclerosis about the sacroiliac joints. Procedure Note Grey Stratton M.D. - 11/04/2019Formatt ing of this note might be different from the original. EXAM: CT ABDOMEN PELVIS WITH IV CONTRAST COMPARISON: 09/14/2015 CT FINDINGS: LUNG BASES: No consolidation or pleural effusion. LIVER: No suspicious mass or intrahepati c biliary ductal dilatation. GALL BLADDER: No radiopaque stones. PANCREAS: No suspicious mass. SPLEEN: No splenomegaly. ADRENAL GLANDS: No suspicious nodularity . KIDNEYS AND URETERS: No hydronephrosis. Symmetric nephrograms. Probable renal cysts, too small to characterize. INTRAPERITONEAL SPACE: No pneumoperitone um or significant free fluid in the abdomen or pelvis. Trace mesenteric stra nding. STOMACH AND SMALL BOWEL: No dilated loop s of small bowel or evidence for bowel obstruction. COLON: No diverticulitis. Cannot exclude subtle colonic wall thickening, however the colon is relatively decompressed, li miting evaluation. APPENDIX: No evidence for acute appendic itis. MAJOR VASCULATURE: No abdominal aortic a neurysm. LYMPH NODES: No lymphadenopathy in the a bdominal or pelvis by size criteria. PELVIS: Urinary bladder is unremarkable. ANTERIOR ABDOMINAL WALL: Unremarkable. BONES/OTHER SOFT TISSUES: No suspicious bone lesions. Mild sclerosis about the sacroiliac joints. IMPRESSION: No appendicitis, bowel obstruction or di verticulitis. Equivocal mild colitis. Penny LOPEZ CT PROCEDURES documented in this encounter Visit Diagnoses Diagnosis Pain Right Lower Quadrant documented in this encounter Administered Medications Inactive Administered Medications - up to 3 most recent administrations Medication Order MAR Action Action Date Dose Rate Site iohexoL 300 mg iodine/mL solution Given 11/04/2019 10:52 AM CDT 129 mL 129 mL (OMNIPAQUE) 129 mL, intravenous, Once in imaging, contrast, Starting on Rani 11/04/19 at 1029, For 1 dose sodium chloride 0.9 % flush 82 mL Given 11/04/2019 10:52 AM CDT 82 mL 82 mL, intravenous, Once in imaging, line care, Starting on Rani 11/04/19 at 1029, For 1 dose sodium chloride 0.9 % injection 10 mL Given 11/04/2019 10:52 AM CDT 10 mL 10 mL, intravenous, As needed, line care, Starting on Rani 11/04/19 at 1029 documented in this encounter Additional Health Concerns Assessment Noted Time PHQ-9 Depression Total Score: 3 09/15/2015 2:08 PM CDT documented as of this encounter Care Teams Piercer Relationship Specialty Start Date End Date Elsewhere, Pcp PCP - General Internal Medicine 06/08/19 06/15/21 documented as of this encounter
--- OUTSIDE RECORDS SUMMARY | 2021-10-22 11:51 | XMS_ITS | Encounter Summary ---
:1970 Author Organization [facility] Address [address] [place] [address] Care Team Providers Name Role Phone Unavailable Primary Care Provider Unavailable Encounter Details Date Type Department Care Team Description 09/14/2015 - Hospital Encounter HX RST Adis Zambrano, 09/15/2015 Janene, Ph.D. [address] [place] [address] Social History Tobacco Use Types Packs/Day Years [...] or relatives? How often do you attend oriental orthodox or More than 4 times per year 06/22/2019 protestant services? Do you belong to any clubs or No 06/22/2019 organizations such as oriental orthodox groups, unions, fraternal or athletic groups, or [...] Sign Reading Time Taken Comments Blood Pressure 121/71 09/15/2015 12:30 NIBP - Value om PM CDT [facility]. Pulse 52 09/15/2015 12:30 Value from [facility] tplus. PM CDT Temperature - - Respiratory Rate 16 09/15/2015 12:15 Value from [facility] rtplus. PM CDT Oxygen Saturation - - Inhaled Oxygen - - Concentration Weight 82.5 kg (181 lb 14.1 09/15/2015 8:00 AM Value fr om [employer]. oz) CDT Height 172 cm (5' 7.72) 09/14/2015 2:00 PM CDT Body Mass Index 27.89 09/14/2015 2:00 PM CDT documented in this encounter Medications at Time of Discharge Medication Sig Dispensed Refills Start Date End Date omeprazole (PriLOSEC) 20 Take 1 capsule by 0 070 10/[address] capsule mouth daily. aspirin 81 mg chewable Chew 4 tablets once. 0 09/201509/24/2018 tablet documented as of this encounter Plan of Treatment Not on filedocumented as of this encounter Procedures Procedure Name Priority Date/Time Associated Diagnosis Comme nts TROPONIN T, 5TH Routine 09/14/2015 5:29 PM Result s for this GEN, P CDT procedure are i n the results section. ECG Routine 09/14/2015 5:22 PM Results f or this CDT procedure are i n the results section. documented in this encounter Results Troponin T (09/14/2015 5:29 PM CDT) P athologist Signature Troponin T, S <0.01 <0.01 [facility] Specimen Anatomical Collection Method Collection Time Receive d Time (Source) Location / / Volume Laterality 09/14/2015 5:29 PM 6 5:29 CDT PM CDT Ailyn Dee M.D., Ph.D. LAB BLOOD ADD-ON Performing Organization Address City/State/ZIP Code Phon e Number [facility] [address] [place], [place] [address] [facility] ECG 12 Lead (09/14/2015 5:22 PM CDT) Specimen (Source) Anatomical Collection Method Collection Time Re ceived Time Location / / Volume Laterality 09/14/2015 5:22 PM CDT [facility] - 09/14/2015 5:27 PM CDT [id number] 17:22 VENTRICULAR RATE 52 Sinus bradycardia Low voltage QRS When compared with ECG of 14-SEP-2015 10 :15, No significant change was found [id number]^JR JENNY ROSALES^JUVENTINO Procedure Note Juventino Rosales Jr., M.D. - 05/29/2017For matting of this note might be different from the original. [id number] 17:22 VENTRICULAR RATE 52 Sinus bradycardia Low voltage QRS When compared with ECG of 14-SEP-2015 10 :15, No significant change was found [id number]^JR JENNY ROSALES^JUVENTINO Ailyn Dee M.D., Ph.D. ECG ORDERABLES Performing Organization Address City/State/ZIP Code Phon e Number HX [facility] [address] [place] [address], [place] documented in this encounter Visit Diagnoses Not on filedocumented in this encounter Additional Health Concerns Assessment Noted Time PHQ-9 Depression Total Score: 10 03/11/2013 2:22 PM CS T documented as of this encounter
--- OUTSIDE RECORDS SUMMARY | 2021-10-22 11:51 | XMS_ITS | Encounter Summary ---
:1970 Author Organization [facility] Address [address] [place] [address] Care Team Providers Name Role Phone Unavailable Primary Care Provider Unavailable Encounter Details Date Type Department Care Team Description 03/15/2014 Hospital Encounter [facility] Karen Fernandez, ALVERTO, C.N.P., D. N.P. [address], [place] [phone] (Wo rk) Social History [...] or relatives? How often do you attend hindu or More than 4 times per year 06/22/2019 uatsdin services? 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
--- OUTSIDE RECORDS SUMMARY | 2021-10-22 11:51 | XMS_ITS | Encounter Summary ---
:1970 Author Organization [facility] Address [address] [place] [address] Care Team Providers Name Role Phone Unavailable Primary Care Provider Unavailable Encounter Details Date Type Department Care Team Description 09/14/2015 Hospital Encounter HX [facility] ED Jayne Lopez M.D. [address] [place], [place] [phone] (Wo rk) Social History [...] or relatives? How often do you attend jainism or More than 4 times per year 06/22/2019 scientologist services? Do you belong to any clubs or No 06/22/2019 organizations such as jainism groups, unions, fraternal or athletic groups, or [...] Sign Reading Time Taken Comments Blood Pressure 133/84 09/14/2015 12:17 PM CDT Pulse - - Temperature - - Respiratory Rate 14 09/14/2015 12:17 PM CDT Oxygen Saturation - - Inhaled Oxygen Concentration - - Weight 88.3 kg (194 lb 10.7 oz) 09/14/2015 10:12 AM CDT Height - - Body Mass Index 29.5 12/01/2014 4:16 PM CDT documented in this encounter Discharge Summaries Valarie Centeno, R.N. - 09/14/2015 1:14 PM CDT ED Depart Summary [facility] Emergency Department Clinical Discharge Summary PERSON INFORMATION Name GERMAN NOVAK Age 45 Years 1970 12:00 AM Sex Female Language Maldivian PCP PCP, ELSEWHERE Marital Status N [id number] Visit Id Visit Reason Chest pain; rule out heart attack Specialty Enc Type Emergency Med Service Emergency Medicine Referred by Track Group [facility] ED Discharge 09/14/2015 1:05 PM Tracking Id [id number] Checkout 09/14/2015 1:05 PM Checkin 09/14/2015 10:07 AM Acuity 2 -Emergent Dispo Type Disch/Trans ShortTerm Gen Hosp-Inpt Care Arrival 09/14/2015 10:07 AM Reg Status LOS 000 02:58 Address: [address] [place] [address] [place] [phone] Comment: PROVIDER INFORMATION Provider Role Provider Contact Time CLARENCE LOPEZ MD ED Provider 09/14/15 10:09 VALARIE CENTENO SCRAP SAWYER Nurse 09/14/15 10:55 DIAGNOSIS Comment: PATIENT EDUCATION INFORMATION Instructions: Follow up: Source: [facility] [employer] Document Id: [id number] Valarie Centeno R.N. - 09/14/2015 1:14 PM CDT ED Discharge Instructions [address] [address] Name: GERMAN NOVAK Date of : 1970 12:00 AM Visit Date: 09/14/2015 10:07 AM [facility] Number: [id number] Address: [address] [place] [address] Rogelio Guerrero [place] [id number] Primary Care Provider: PCP, ELSEWHERE IMPORTANT: [facility] in [place] would like to thank you for allowing us to assist you with your healthcare needs. The following includes patient education materials and informationregarding your injury/illness. Diagnosis: Follow-Up Instructions: Your Upcoming Appointments: Date Time Location Provider No Appointments found Patient Education Materials: Consider Using Patient Online Services Patient Online [...] if you dont have one. Go to [email or web address] and click on Create Your Account. Then, follow the directions to complete the online form. Youll be asked for your [facility] number which you can find at the top of this document. ED Tests and Procedures: Order Status Automated Diff-5 Part Completed Basic Metabolic Panel Completed AST Completed ALT Completed Lipase Level Completed Bilirubin Direct Completed Bilirubin Total Completed Troponin T Completed Urinalysis with Microscopic Completed XR Chest [address] Abdomen/Pelvis w/ contrast Completed CBC (includes Auto Differential) Completed Discharge Prescriptions & Home Medications: Medication/Strength Dose Route Frequency Indications/Special Instructions/Comments/Notes aspirin (aspirin 81 mg oral tablet) 324 mg Chewed once topiramate (topiramate 25 mg oral capsule) 25 mg Oral once a day simvastatin (simvastatin 20 mg oral tablet) 20 mg Oral once a day (at bedtime) for high cholesterolsPlease advise labs needed for further refills. Comment: Attention: If you have any medications at home not on this list, DO NOT take them until you contact your provider for clarification. Give a copy of your medication list to your primary care provider. Update your medication list any time medications or doses are changed and carry your medication list at all times in case of emergency. IMPORTANT: We examined and treated you today on an emergency basis only. This was not a substitute for, or an effort to provide, complete medical care. In most cases, you must let your doctor check youagain. Tell your doctor about any new or lasting problems. We cannot recognize and treat all injuries or illnesses in one Emergency Department visit. If you had special tests, such as EKG's or X- rays, we will review them again within 24 hours. We will call you if there are any new suggestions. Please follow the instructions above carefully. If you are being transferred to another facility your followup plan of care will be determined by the receiving facility. If you are a patient that is being discharged from the Emergency Department after receiving narcotics or other medications that may impair your judgment you may be a risk to yourself or others if you operate a motor vehicle. We recommend that you arrange a ride home with a responsible libertarian. I, ROEBER, GERMAN JATIN , or responsible libertarian have received this information and my questions have been answered. I have discussed any challenges I see with this plan with the nurse or physician. Patient Signature or Responsible Green Party/Relationship Date Time Provider Signature Date Time IMPORTANT: We examined and treated you today on an emergency basis only. This was not a substitute for, or an effort to provide, complete medical care. In most cases, you must let your doctor check youagain. Tell your doctor about any new or lasting problems. We cannot recognize and treat all injuries or illnesses in one Emergency Department visit. If you had special tests, such as EKG's or X- rays, we will review them again within 24 hours. We will call you if there are any new suggestions. Please follow the instructions above carefully. If you are being transferred to another facility your followup plan of care will be determined by the receiving facility. If you are a patient that is being discharged from the Emergency Department after receiving narcotics or other medications that may impair your judgment you may be a risk to yourself or others if you operate a motor vehicle. We recommend that you arrange a ride home with a responsible libertarian. MURALI Romo WENDY SUE , or responsible libertarian have received this information and my questions have been answered. I have discussed any challenges I see with this plan with the nurse or physician. Patient Signature or Responsible Green Party/Relationship Date Time Provider Signature Date Time Source: [facility] POWERCHART Document Id: [id number] documented in this encounter Medications at Time of Discharge Medication Sig Dispensed Refills Start Date End Date aspirin 81 mg chewable Chew 4 tablets once. 0 09/201509/24/2018 tablet documented as of this encounter ED Notes Valarie Centeno R.N. - 09/14/2015 1:10 PM CDT ED Pain Assessment ED Pain Assessment Entered On: 09/14/2015 13:10 CDT Performed On: 09/14/2015 13:10 CDT by VALARIE CENTENO RN Pain Assessment Pain Symptoms : Yes VALARIE CENTENO RN - 09/14/2015 13:10 CDT Pain Scale Pain Scale Verbal 0-10 : Open VALARIE CENTENO RN - 09/14/2015 13:10 CDT Pain Pain Assessment Grid Pain 1 Pain 2 Pain 3 Location : Chest Abdomen Head Intensity : 0 0 (Comment: tight-squeeze [VALARIE CENTENO RN - 09/14/2015 13:10 CDT] ) 5 VALARIE CENTENO RN - 09/14/2015 13:10 CDT VALARIE CENTENO RN - 09/14/2015 13:10 CDT VALARIE CENTENO RN - 09/14/2015 13:10 CDT [facility] Document Id: [id number] CDT!16 Valarie Centeno R.N. - 09/14/2015 1:10 PM CDT ED Treatments and Procedures ED Treatments and Procedures Entered On: 09/14/2015 13:11 CDT Performed On: 09/14/2015 13:10 CDT by VALARIE CENTENO RN Cardiac Monitoring Monitoring Lead : II Monitoring Lead Parts Analyst : Discontinued Cardiac Rhythm Tech : Sinus bradycardia VALARIE CENTENO RN - 09/14/2015 13:10 CDT Peripheral IV Peripheral IV Assess/Intervention Grid Peripheral IV #1 Date of Insertion : 09/14/2015 CDT IV Site : Antecubital Laterality : Right Catheter Size : 18 Catheter Type : Protective Comments (Comment: IV LEFT IN PLACE FOR TRANSFER [VALARIE CENTENO RN - 09/14/2015 13:10 CDT] ) VALARIE CENTENO RN - 09/14/2015 13:10 CDT Source: [employer] Document Id: [id number] CDT!13 Valarie Centeno R.N. - 09/14/2015 1:09 PM CDT ED Disposition Summary ED Disposition Summary Entered On: 09/14/2015 13:10 CDT Performed On: 09/14/2015 13:09 CDT by VALARIE CENTENO SCRAP SAWYER Disposition Summary Present in Room During Exam/Procedure : EMS Mode of Discharge : Stretcher Transportation : Ground ambulance Nurse Receiving Report : FLORENCIO Briseno RN- [place] Ed Referral Date/Time Nurse Received Report : 09/14/2015 13:05 CDT Transporter : EMT, Auto Rental Supervisor Discharge From ED With : Able Bodied Tankerman Printed Discharge Instructions Given to Patient : No Reason Discharge Instructions Not Given : Transfer SMR-Cardiology Patient Status at Discharge from ED : Improved VALARIE CENTENO RN - 09/14/2015 13:09 CDT Source: [employer] Document Id: [id number] CDT!12 Valarie Centeno R.N. - 09/14/2015 12:16 PM CDT ED Nurse Reassess ED Nurse Reassess Entered On: 09/14/2015 12:17 CDT Performed On: 09/14/2015 12:16 CDT by MIGUELINA MARLAMABEL Gutierrez RN Pain Assessment Pain Symptoms : Yes VALARIE CENTENO RN - 09/14/2015 12:16 CDT Pain Scale Pain Scale Verbal 0-10 : Open VALARIE CENTENO RN - 09/14/2015 12:16 CDT Pain Pain Assessment Grid Pain 1 Pain 2 Pain 3 Location : Chest Abdomen Head Intensity : 0 0 (Comment: squeeze sensation [VALARIE CENTENO RN - 09/14/2015 12:16 CDT] ) 0 VALARIE CENTENO RN - 09/14/2015 12:16 CDT VALARIE CENTENO Brenda RN - 09/14/2015 12:16 CDT VALARIE CENTENO Brenda RN - 09/14/2015 12:16 CDT Comfort Measures Comfort Measures Response : Comfort level increased VALARIE CENTENO RN - 09/14/2015 12:16 CDT Resp Reassess Respiratory Patient Stated Symptoms : None VALARIE CENTENO RN - 09/14/2015 12:16 CDT CV Reassess CV Patient Stated Symptoms : None VALARIE CENTENO RN - 09/14/2015 12:16 CDT Neuro Reassess Last Well Time Known : Not applicable Orientation : Oriented x 3 Characteristics of Speech : Appropriate for age Level of Consciousness : Alert Neuro Patient Stated Symptoms : Other: arm numbness/tingling Gait : Steady VALARIE CENTENO - 09/14/2015 12:16 CDT Maame Coma Eye Opening Response Maame : Spontaneously Best Verbal Response Maame : Oriented Best Motor Response Maame : Obeys simple commands [place] Coma Score : 15 VALARIE CENTENO RN - 09/14/2015 12:16 CDT GI Reassess GI Patient Stated Symptoms : Abdominal pain VALARIE CENTENO RN - 09/14/2015 12:16 CDT /OB Reassess Patient Stated Symptoms : None VALARIE CENTENO RN - 09/14/2015 12:16 CDT Integumentary Integumentary Patient Stated Symptoms : None VALARIE CENTENO GILES - 09/14/2015 12:16 CDT Source: [employer] POWERCHART Document Id: [id number] CDT!40 Valarie Centeno R.N. - 09/14/2015 10:44 AM CDT ED Primary Assessment Document Has Been Updated ED Primary Assessment Entered On: 09/14/2015 10:48 CDT Performed On: 09/14/2015 10:44 CDT by VALARIE CENTENO RN Reason For Visit (As Of: 09/14/2015 10:48:05 CDT) Problems(Active) Common migraine (SNOMED CT :54279056 ) Name of Problem: Common migraine ; Onset Date: Unknown ; Recorder: NELLIE JOHNSON RN; Confirmation: Confirmed ; Classification: Nursing ; Code: 51479195 ; Contributor System: [employer] ; Last Updated: 06/19/2010 11:18 CDT ; Life Cycle Status: Active ; Vocabulary:SNInPronto CT Echocardiogram abnormal (SNOMED CT :753287611 ) Name of Problem: Echocardiogram abnormal ; Onset Date: 06/20/2010 ; Recorder: JUVE CHRISTIANSEN DNP, FNP; Confirmation: Confirmed ; Classification: Medical ; Code: 966417530 ; Contributor System: [employer] ; Last Updated: 07/28/2013 8:54 CDT ; Life Cycle Date: 03/11/2013 ; Life Cycle Status: Active ; Responsible Provider: JUVE CHRISTIANSEN DNP, FNP; Vocabulary: SNOMED CT ; Comments: 03/11/2013 14:44 - JUVE CHRISTIANSEN DNP, FNP Final Impressions1. BEDSIDE ECHOCARDIOGRAM: 2. Normal left ventricular size; normal global systolic function; calculated ejection fraction 58%. 3. Akinesis of inferolateral (mid); hypokinesis of inferolateral (base) martinez of left ventricle. 4. Trivial mitral valve regurgitation; mild left atrial enlargement. 5. Normalright ventricular size; normal systolic function; unable to accurately estimate RV systolic pressure. 6. Trivial tricuspid valve regurgitation; normal right atrial size. 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 Novak was transferred from the [place] emergen [facility] department where he initial troponin was 0.06, and a CK-MB was 5.9. Her ECG at the outside facility was unremarkable. She was transferred to [facility] for evaluation of her elevation in her cardiac serial biomarkers. Due to her associated symptoms of headache and shortness of breath with the chest pain, a head CT was obtained upon arrival to [facility] and did not reveal any abnormalities. She also underwent a chest CT which was negative for dissection and pulmonary embolus. She proceeded with a coronary angiogram which revealed normal coronary arteries and right sided dominance. 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 She has also been advised to cease using Hydroxycut, an appetite suppressant that may contain vasoconstricting agents. 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 ; Life Cycle Status: Active ; Responsible Provider: MAXIME VARGHESE RN; Vocabulary: SNOMED CT ; Comments: 02/14/2012 13:17 - FRANCISCO COLINDRES LPN unknown date of dx 04/10/2012 10:43 - JUAN ALBERTO CENTENO RN Patient stated she does not have this diagnosis Major Depressive Disorder, Recurrent Episode, Unspecified Degree (ICD-9-CM :296.30 ) Name of Problem: Major Depressive Disorder, Recurrent Episode, Unspecified Degree ; Recorder: NICKY MONTIEL MD; Confirmation: Confirmed ; Classification: Medical ; Code: 296.30 ; Contributor System: [employer] ; Last Updated: 04/24/2012 13:29 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 ; 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 ; Life Cycle Status: Active ; Responsible Provider: NCIKY MONTIEL MD; Vocabulary: ICD-9-CM ; Comments: 03/11/2013 13:49 - FRANCISCO COLINDRES LPN unknown date of dx Diagnoses(Active) Chest pain Date: 09/14/2015 ; Diagnosis Type: Reason For Visit ; Confirmation: Confirmed ; Clinical Dx: Chest pain ; Classification: Medical ; Clinical Service: Emergency medicine ; Code: PNED ; Probability: 0 ; Diagnosis Code: [id number] Triage Chief Complaint Description : See Triage Note Information Given By : Patient Present in Room During Exam/Procedure : Spouse Mode of Arrival ED : Private vehicle Track : Medical Languages : Maldivian Patient Informed of Triage Location : Emergency department Vital Signs Assessed : Yes GCS Assessed : Yes Treatments Prior to Arrival : Aspirin Is Patient Female and 13-50 no hysterectomy : No VALARIE CENTENO RN - 09/14/2015 10:44 CDT Vital Signs Apical Heart Rate : 59 /min (LOW) Respiratory Rate : 16 /min Systolic Blood Pressure : 132 mmHg Diastolic Blood Pressure : 88 mmHg NIBP Mean : 103 mmHg SpO2 : 96 % Oxygen Therapy : Room air VALARIE CENTENO RN - 09/14/2015 10:44 CDT [place] Coma Eye Opening Response Maame : Spontaneously Best Verbal Response [place] : Oriented Best Motor Response [place] : Obeys simple commands Maame Coma Score : 15 VALARIE CENTENO RN - 09/14/2015 10:44 CDT Pain Assessment Pain Symptoms : Yes VALARIE CENTENO RN - 09/14/2015 10:44 CDT ED Physician Notification Time ED Physician Notification Time : 09/14/2015 10:07 CDT COSMEGEO DE LA FUENTERoxanna Gutierrez RN - 09/14/2015 10:44 CDT SAEED SAEED Level 1 : No SAEED Level 2 : No SAEED Level 3 : One VALARIE CENTENO RN - 09/14/2015 10:44 CDT DCP GENERIC CODE Tracking Acuity : 2 -Emergent Tracking Group : [facility] ED GEO CENTENORoxanna Gutierrez RN - 09/14/2015 10:44 CDT Allergy (As Of: 09/14/2015 10:48:05 CDT) Allergies (Active) morphine Estimated Onset Date: Unspecified ; Created By: RAVEN DELUNA LPN; Reaction Status: Active ; Category: Drug ; Substance: morphine ; Type: Allergy ; Updated By: RAVEN DELUNA LPN; Reviewed Date: 09/14/2015 10:47 CDT narcotic analgesics Estimated Onset Date: Unspecified ; Reactions: itch ; Created By: NELLIE JOHNSON RN; Reaction Status: Active ; Category: Drug ; Substance: narcotic analgesics ; Type: Sensitivity ; Updated By: NELLIE JOHNSON RN; Reviewed Date: 09/14/2015 10:47 CDT Percocet 5/325 Estimated Onset Date: Unspecified ; Created By: RAVEN DELUNA LPN; Reaction Status:Active ; Category: Drug ; Substance: Percocet 5/325 ; Type: Allergy ; Updated By: RAVEN DELUNA LPN; Reviewed Date: 09/14/2015 10:47 CDT Toradol Estimated Onset Date: Unspecified ; Created By: RAVEN DELUNA LPN; Reaction Status: Active; Category: Drug ; Substance: Toradol ; Type: Allergy ; Updated By: RAVEN DELUNA LPN; Reviewed Date: 09/14/2015 10:47 CDT ID Screen Drug Resistant Organism : No VALARIE CENTENO RN - 09/14/2015 10:44 CDT Immunizations Immunizations Current : Yes VALARIE CENTENO RN - 09/14/2015 10:44 CDT Respiratory Airway : Patent Respirations : Unlabored Respiratory Pattern : Regular Oxygen Therapy : Room air Respiratory Detailed Assessment : Yes GEO CENTENORoxanna Gutierrez RN - 09/14/2015 10:44 CDT Resp Detailed Respiratory Patient Stated Symptoms : None COSMEMARGUERITECynthiaGEORoxanna Gutierrez RN - 09/14/2015 10:44 CDT Cardiovascular Heart Rhythm : Regular Skin Color : Normal for ethnicity Skin Description : Dry Skin Temperature : Warm Cardiovascular Detailed Assessment : Yes Monitoring Lead : II COSMESUDHAKARGEORoxanna Gutierrez RN - 09/14/2015 10:44 CDT CV Detailed CV Patient Stated Symptoms : Chest pain Nail Bed Color : [place] Capillary Refill : Less than 2 seconds Heart Sounds ICU : S1S2 Cardiac Rhythm : Sinus bradycardia Edema Assessment : No MIGUELINADALTONDAMINA Gutierrez RN - 09/14/2015 10:44 CDT Neurological Last Well Time Known : Not applicable Level of Consciousness : Alert Orientation : Oriented x 3 Characteristics of Speech : Appropriate for age Neuro Patient Stated Symptoms : Other: arm numbness/tingling Gait : Steady Swallowing Difficulty/Aspiration Risk : None MIGUELINA VALARIE Gutierrez RN - 09/14/2015 10:44 CDT ED Psychosocial Affect/Behavior : Calm, Cooperative, Appropriate Domestic Abuse Concerns : None, Unable to Screen Behavioral Health Screen/Safety Assmt : No Emotional Support Available : Yes ED Psychosocial Deviation : at bedside MIGUELINAGEORoxanna Gutierrez RN - 09/14/2015 10:44 CDT Gastrointestinal Nutrition ED : Adequate GI Detailed Assessment : Yes MIGUELINADALTONDAMIAN Gutierrez RN - 09/14/2015 10:44 CDT GI Detailed GI Patient Stated Symptoms : Abdominal pain, Nausea Bowel Movement Last Date : 09/14/2015 CDT Stool Color : Other: green Stool Description : Loose Abdomen Description : Symmetric Abdomen Palpation : Tender Tenderness : Right lower quadrant MIGUELINADALTONDAMIAN Gutierrez RN - 09/14/2015 10:44 CDT /OB Assessment Patient Stated Symptoms : None VALARIE CENTENO RN - 09/14/2015 10:44 CDT Integumentary Integumentary Patient Stated Symptoms : None Skin Turgor : Elastic Skin Integrity : Intact Mucous Membrane Color : [place] Mucous Membrane Description : Moist Skin Color : Normal for ethnicity Skin Description : Dry Skin Temperature : Warm VALARIE CENTENO RN - 09/14/2015 10:44 CDT Musculoskeletal Fall Prevention Education Provided : Yes VALARIE CENTENO RN - 09/14/2015 10:44 CDT Musculoskeletal Abnormality Ultragrid Musculoskeletal #1 Location : Bilateral arms Abnormality : Other: tingling VALARIE CENTENO RN - 09/14/2015 10:44 CDT Social Habits Exposure to Tobacco Smoke : Care provider denies smoking in home Smoking Status : Current some day smoker Tobacco 2A : Yes Tobacco Use/Currently Using : Yes Tobacco Use/Last 30 Days : Yes Tobacco Use/Last 12 months : Yes Type : Cigarettes: Less than 20 per day Tobacco Use/Advised to Quit : Yes VALARIE CENTENO RN - 09/14/2015 10:44 CDT Alcohol Use Grid Alcohol Use : Yes Frequency : Occasionally VALARIE CENTENO RN - 09/14/2015 10:44 CDT Recreational Drug Use Grid Drug Use : None VALARIE CENTENO RN - 09/14/2015 10:44 CDT Peripheral IV Peripheral IV Assess/Intervention Grid Peripheral IV #1 Date of Insertion : 09/14/2015 CDT IV Site : Antecubital Laterality : Right Catheter Size : 18 Catheter Type : Protective VALARIE CENTENO RN - 09/14/2015 10:44 CDT Source: [facility] [employer]CHART Document Id: [id number] CDT!129 Valarie Centeno R.N. - 09/14/2015 10:20 AM CDT ED Treatments and Procedures ED Treatments and Procedures Entered On: 09/14/2015 10:43 CDT Performed On: 09/14/2015 10:20 CDT by VALARIE CENTENO RN Peripheral IV Peripheral IV Assess/Intervention Grid Peripheral IV #1 IV Activity : Start Number of Attempts : 1 Date of Insertion : 09/14/2015 CDT IV Site : Antecubital Laterality : Right Catheter Size : 18 Catheter Type : Protective Site Condition : No complications Drainage Description : None Site/Line Care : Secured with tape Dressing/ Activity : Dry, Intact, Transparent Flow/ Patency : No complications IV Equipment/Supplies : Extension, set VALARIE CENTENO RN - 09/14/2015 10:42 CDT Source: [facility] [employer] Document Id: [id number] CDT!17 Valarie Centeno R.N. - 09/14/2015 10:12 AM CDT ED Triage Assessment Document Has Been Updated ED Triage Assessment Entered On: 09/14/2015 10:42 CDT Performed On: 09/14/2015 10:12 CDT by VALARIE CENTENO RN Reason For Visit (As Of: 09/14/2015 10:42:53 CDT) Problems(Active) Common migraine (SNOMED CT :46905459 ) Name of Problem: Common migraine ; Onset Date: Unknown ; Recorder: NELLIE JOHNSON RN; Confirmation: Confirmed ; Classification: Nursing ; Code: 52628632 ; Contributor System: [employer] ; Last Updated: 06/19/2010 11:18 CDT ; Life Cycle Status: Active ; Vocabulary:OOYYO CT Echocardiogram abnormal (SNOMED CT :114281189 ) Name of Problem: Echocardiogram abnormal ; Onset Date: 06/20/2010 ; Recorder: JUVE CHRISTIANSEN DNP, FNP; Confirmation: Confirmed ; Classification: Medical ; Code: [id number] ; Contributor System: [employer] ; Last Updated: 07/28/2013 8:54 CDT ; Life Cycle Date: 03/11/2013 ; Life Cycle Status: Active ; Responsible Provider: JUVE CHRISTIANSEN DNP, FNP; Vocabulary: SNOMED CT ; Comments: 03/11/2013 14:44 - JUVE CHRISTIANSEN DNP, FNP Final Impressions1. BEDSIDE ECHOCARDIOGRAM: 2. Normal left ventricular size; normal global systolic function; calculated ejection fraction 58%. 3. Akinesis of inferolateral (mid); hypokinesis of inferolateral (base) martinez of left ventricle. 4. Trivial mitral valve regurgitation; mild left atrial enlargement. 5. Normalright ventricular size; normal systolic function; unable to accurately estimate RV systolic pressure. 6. Trivial tricuspid valve regurgitation; normal right atrial size. 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 Novak was transferred from the [place] [facility] [place] [facility] department where he initial troponin was 0.06, and a CK-MB was 5.9. Her ECG at the outside facility was unremarkable. She was transferred to [facility] for evaluation of her elevation in her cardiac serial biomarkers. Due to her associated symptoms of headache and shortness of breath with the chest pain, a head CT was obtained upon arrival to [facility] and did not reveal any abnormalities. She also underwent a chest CT which was negative for dissection and pulmonary embolus. She proceeded with a coronary angiogram which revealed normal coronary arteries and right sided dominance. 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 She has also been advised to cease using Hydroxycut, an appetite suppressant that may contain vasoconstricting agents. 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/11/2012 ; Life Cycle Status: Active ; Responsible Provider: MAXIME VARGHESE RN; Vocabulary: SNOMED CT ; Comments: 02/14/2012 13:17 - FRANCISCO COLINDRES LPN unknown date of dx 04/10/2012 10:43 - JUAN ALBERTO CENTENO RN Patient stated she does not have this diagnosis Major Depressive Disorder, Recurrent Episode, Unspecified Degree (ICD-9-CM :296.30 ) Name of Problem: Major Depressive Disorder, Recurrent Episode, Unspecified Degree ; Recorder: NICKY MONTIEL MD; Confirmation: Confirmed ; Classification: Medical ; Code: 296.30 ; Contributor System: [employer] ; Last Updated: 04/24/2012 13:29 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 ; 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 ; Life Cycle Status: Active ; Responsible Provider: NICKY MONTIEL MD; Vocabulary: ICD-9-CM ; Comments: 03/11/2013 13:49 - FRANCISCO COLINDRES LPN unknown date of dx Diagnoses(Active) Chest pain Date: 09/14/2015 ; Diagnosis Type: Reason For Visit ; Confirmation: Confirmed ; Clinical Dx: Chest pain ; Classification: Medical ; Clinical Service: Emergency medicine ; Code: PNED ; Probability: 0 ; Diagnosis Code: [id number] Triage Chief Complaint Description : 45 yo female presents to the ED via private vehicle with c/o central chest burning sensation, and bilateral arm numbness which has been present since 0200. Pt. c/o right abd. px which has been present x2 weeeks. Information Given By : Patient Present in Room During Exam/Procedure : Spouse Mode of Arrival ED : Private vehicle Track : Medical Languages : Maldivian Vital Signs Assessed : Yes Treatments Prior to Arrival : Aspirin Is Patient Female and 13-50 no hysterectomy : No VALARIE CENTENO RN - 09/14/2015 10:39 CDT Vital Signs Temperature Core : 36.2 DegC(Converted to: 97.2 DegF) (LOW) Apical Heart Rate : 59 /min (LOW) Respiratory Rate : 12 /min (LOW) Systolic Blood Pressure : 152 mmHg (HI) Diastolic Blood Pressure : 88 mmHg NIBP Mean : 109 mmHg BP Location : Left upper extremity SpO2 : 96 % Oxygen Therapy : Room air Actual Weight : 88.3 kg Actual Weight Conversion to Pounds : 194.26 lb Weight Source : Standing scale VALARIE CENTENO RN - 09/14/2015 10:39 CDT Pain Assessment Pain Symptoms : Yes VALARIE CENTENO RN - 09/14/2015 10:39 CDT Pain Scale Pain Scale Verbal 0-10 : Open VALARIE CENTENO RN - 09/14/2015 10:39 CDT Pain Pain Assessment Grid Pain 1 Pain 2 Location : Chest Abdomen Laterality : Bilateral Right Intensity : 2 3 Time Pattern : Acute Acute Onset : Sudden Sudden Quality : Burning Pressure, Tightness VALARIE CENTENO RN - 09/14/2015 10:39 CDT VALARIE CENTENO RN - 09/14/2015 10:39 CDT ED Physician Notification Time ED Physician Notification Time : 09/14/2015 10:07 CDT VALARIE CENTENO RN - 09/14/2015 10:39 CDT SAEED SAEED Level 1 : No SAEED Level 2 : No SAEED Level 3 : Many Vital Signs SAEED : No VALARIE CENTENO RN - 09/14/2015 10:39 CDT DCP GENERIC CODE Tracking Acuity : 2 -Emergent Tracking Group : [facility] ED VALARIE CENTENO RN - 09/14/2015 10:39 CDT Allergy (As Of: 09/14/2015 10:42:53 CDT) Allergies (Active) morphine Estimated Onset Date: Unspecified ; Created By: RAVEN DELUNA LPN; Reaction Status: Active ; Category: Drug ; Substance: morphine ; Type: Allergy ; Updated By: RAVEN DELUNA LPN; Reviewed Date: 09/14/2015 10:42 CDT narcotic analgesics Estimated Onset Date: Unspecified ; Reactions: itch ; Created By: NELLIE JOHNSON RN; Reaction Status: Active ; Category: Drug ; Substance: narcotic analgesics ; Type: Sensitivity ; Updated By: NELLIE JOHNSON RN; Reviewed Date: 09/14/2015 10:42 CDT Percocet 5/325 Estimated Onset Date: Unspecified ; Created By: RAVEN DELUNA LPN; Reaction Status:Active ; Category: Drug ; Substance: Percocet 5/325 ; Type: Allergy ; Updated By: RAVEN DELUNA LPN; Reviewed Date: 09/14/2015 10:42 CDT Toradol Estimated Onset Date: Unspecified ; Created By: RAVEN DELUNA LPN; Reaction Status: Active; Category: Drug ; Substance: Toradol ; Type: Allergy ; Updated By: RAVEN DELUNA LPN; Reviewed Date: 09/14/2015 10:42 CDT ID Screen Drug Resistant Organism : No VALARIE CENTENO RN - 09/14/2015 10:39 CDT Immunizations Immunizations Current : Yes VALARIE CENTENO RN - 09/14/2015 10:39 CDT Source: [employer] Document Id: [id number] CDT!58 Valarie Centeno R.N. - 09/14/2015 10:12 AM CDT ED Treatments and Procedures ED Treatments and Procedures Entered On: 09/14/2015 10:44 CDT Performed On: 09/14/2015 10:12 CDT by VALARIE CENTENO RN Cardiac Monitoring Monitoring Lead : II Monitoring Lead Parts Analyst : Initiated Cardiac Rhythm Tech : Sinus bradycardia VALARIE CENTENO RN - 09/14/2015 10:43 CDT Source: [facility] POWERCHART Document Id: [id number] CDT!5 Clarence Lopez M.D. - 09/14/2015 10:09 AM CDT Chest pain Document Contains Addenda Patient: GERMAN NOVAK Age: 45 years Sex: Female : 1970 Author: CLARENCE LOPEZ MD Attachments: None Basic Information Time seen: Immediately upon arrival. History source: Patient. Arrival mode: Private vehicle. History of Present Illness The patient presents with chest pain. The onset was 09/14/2015 02:00:00 . The course/duration of symptoms is constant. Location: substernal. Radiating pain: jaw. The character of symptoms is tightness.The degree at onset was moderate. The degree at maximum was moderate. The degree at present is moderate. The exacerbating factor is none. The relieving factor is none. Risk factors consist of NSTEMI due to cornorary vasospasm June 2010. Prior episodes: coronary vasospasms with NSTEMI. Therapy today Tums, no relief. Associated symptoms: nausea. Additional history: In addition, the patient has right sided abdominal pain. Review of Systems Constitutional symptoms: Negative except as documented in HPI. Skin symptoms: Negative except as documented in HPI. Eye symptoms: Negative except as documented in HPI. Respiratory symptoms: Negative except as documented in HPI. Cardiovascular symptoms: Negative except as documented in HPI. Gastrointestinal symptoms: Abdominal pain, right lower quadrant, right flank and nausea. Musculoskeletal symptoms: Negative except as documented in HPI. Additional review of systems information: All other systems reviewed and otherwise negative. Health Status Allergies: Allergic Reactions (All) Severity Not Documented Morphine- No reactions were documented. Percocet 5/325- No reactions were documented. Toradol- No reactions were documented. Nonallergic Reactions (All) Severity Not Documented Narcotic analgesics- Itch.. Past Medical/ Family/ Social History Medical history: No active or resolved past medical history items have been selected or recorded.. Surgical history: C VAGINAL HYSTERECTOMY - 06/06/04 on 06/06/2004 at 33 Years. LEEP procedure of cervix ([id number]) on 08/22/1996 at 26 Years. Total abdominal hysterectomy (corpus and cervix), with or without removal of tube(s), with or without removal of ovary(s); (63870). Comments: 07/13/2010 11:39 - RAVEN DELUNA LPN date unknown. Family history: Hypertension Mother Brother Brother Hypothyroidism Mother Sister Peripheral vascular disease Father . Physical Examination Vital Signs: Reviewed Results: Vital Signs(Date Range: 09/13/2015 0:00 CDT - 09/14/2015 10:45 CDT). General: Alert and mild distress. Skin: Warm and dry. Head: Normocephalic and atraumatic. Neck: Trachea midline. Eye: Extraocular movements are intact. Cardiovascular: Regular rate and rhythm, No murmur, Normal peripheral perfusion and No edema. Respiratory: Lungs are clear to auscultation and respirations are non-labored. Chest wall: No tenderness. Gastrointestinal: Soft and significant tenderness to RLQ, mild RUQ tenderness. Neurological: Alert and oriented to person, place, time, and situation. Medical Decision Making Differential Diagnosis:Angina. OrdersLaunch Order Profile (Selected) Inpatient Orders Ordered Notify Nurse - EKG Ordered: Completed ALT: AST: Automated Diff-5 Part: Basic Metabolic Panel: Bilirubin Direct: Bilirubin Total: CBC (includes Auto Differential): EKG: Lipase Level: NS Bolus: 90 mL, IV Push, Once Notify Radiology - EKG Ordered: Saline flush: 10 mL, IV Push, Once Troponin T: Urinalysis with Microscopic: Zofran: 4 mg, 2 mL, IV Push, Once fentaNYL: 50 mcg, 1 mL, IV Push, Once iohexol 300 mg/mL: 140 mL, IV Push, Once Completed (Final) CT Abdomen/Pelvis w/ contrast: XR Chest 2 Views: Order Processing fentaNYL: 50 mcg, IV Push, Once Documented Medications Documented aspirin 81 mg oral tablet: 324 mg, 4 tab(s), Chewed, Once topiramate 25 mg oral capsule: 25 mg, 1 cap(s), PO, Daily. Electrocardiogram:Time 09/14/2015 10:46:00, normal sinus rhythm, No ST-T changes, normal CT & QRS intervals. Reexamination/ Reevaluation First troponin is negative. Discussed the case with Dr. Paul Jones (Cardiology). He would suggest to send the patient to [facility] for further care. Awaiting CT results and will discus with patient. Contacted [facility] and discussed with Dr. Cricket Kearney. The patient will be directly admitted to the comprehensive cardiology service. CT negative, labs are reassuring. Impression and Plan 45 year old female patient with a history of NSTEMI due to coronary vasopasm in the June of 2010 who is presenting with substernal chest pain. The patient initially expierenced an episode yesterday that resolved but then returned around 2AM last night. It is radiating to the jaw and associated with some LUE numbness. Her symptoms are reminiscent of her previous NSTEMI. Tums have not helped the pain.Ddx includes ACS, GERD, pancreatitis, less likely aortic pathology given her atypical symptoms for this condition. EKG, exam and vital signs so far are reassuring. I am planning to send serial cardiac enzymes and the patient will likely need to be admitted for observation given her history. In addition, Ms. Novak also has abdominal pain which seemed to be distinctly different from the chest pain. She is focally tender to the RLQ raising the suspicion of acute appendicits. She does have some RUQ tenderness but point of care ultrasound of the gallbladder shows a normal configured galbladder, with normal wall thickness, no pericholecystic fluid, negative sonographic Mills's sign and no stone. I will obtain a CT of the abdomen and pelvis to rule out appendicits or other significant abdominal pathology. Addendum Teaching-Supervisory Addendum-Brief Electronically Signed By: CLARENCE LOPEZ MD On: 09/14/2015 01:54 PM Modified by and Electronically Signed by: CLARENCE LOPEZ MD On: 09/14/2015 01:54 PM Source: [facility] POWERCHART Document Id: [id number] documented in this encounter Miscellaneous Notes Transfer of Care - Valarie Centeno R.N. 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 Patient's Condition for Transfer : Stable VALARIE CENTENO RN - 09/14/2015 13:11 CDT Transfer Requirements Transfer Requirements Met : Patient has received a medical screening, Patient will be transferred byqualified personnel and transportation equipment as required, including the use of necessary appropriate life support measures, Receiving facility has agreed to accept transfer and to provide appropriate medical treatments, Receiving facility has available space and qualified personnel for the treatment of the patient, Risks and benefits of transfer explained to patient Transferring Physician : CLARENCE LOPEZ MD Receiving Facility Accepting Transfer : [facility]-cARDIOLOGY Photo Booth Operator of receiving facility accepting patient : Date/Time Transfer Accepted : 09/14/2015 12:35 CDT Accepting Physician : Date/Time Physician Accepted Patient : 09/14/2015 12:35 CDT Nurse Receiving Report : Jane Harris RN Date/Time Nurse Received Report : 09/14/2015 13:05 CDT VALARIE CENTENO RN - 09/14/2015 13:11 CDT Details of Transfer Mode of Transfer : Ground ambulance Data Sent with Patient : Chart copy, Face Sheet (patient demographics), Emergency Department Notes, Progress notes, Laboratory reports, Radiology reports and copies of films as ordered (indicate which films), EKG copy, Nursing database, medication records, progress notes, Discharge Summary (if available), Physician Certification for Transfer form completed (keep original - send copy), Patient Consentfor Transfer signed (keep original - send copy), Ambulance specific Physician Certification Statement completed if going by ambulance, Interinstitutional Transfer orders Required Personnel for Transfer : EMT, Auto Rental Supervisor VALARIE CENTENO RN - 09/14/2015 13:11 CDT Vital Signs Temperature Core : 36.2 DegC(Converted to: 97.2 DegF) (LOW) Apical Heart Rate : 54 /min (LOW) Respiratory Rate : 12 /min (LOW) Systolic Blood Pressure : 137 mmHg Diastolic Blood Pressure : 82 mmHg NIBP Mean : 100 mmHg BP Location : Left upper extremity SpO2 : 98 % Oxygen Therapy : Room air VALARIE CENTENO RN - 09/14/2015 13:11 CDT Valuables/Belongings Belongings Sent Home With : ALL BELONGINGS SENT WITH PATIENT/FAMILY Home Medication Disposition : None brought in with patient VALARIE CENTENO RN - 09/14/2015 13:11 CDT Source: [employer] Document Id: [id number] CDT!31 Miscellaneous - Valarie Centeno R.N. - 09/14/2015 1:11 PM CDT Valuables/Belongings Valuables/Belongings Entered On: 09/14/2015 13:11 CDT Performed On: 09/14/2015 13:11 CDT by VALARIE CENTENO RN Valuables/Belongings Belongings Sent Home With : ALL BELONGINGS SENT WITH PATIENT/FAMILY Home Medication Disposition : None brought in with patient VALARIE CENTENO RN - 09/14/2015 13:11 CDT Source: [employer] Document Id: [id number] CDT!4 Miscellaneous - Conversion, Historical Provider Ser - 09/14/2015 1:05 PM CDT Coding Summary-Paper Based CODING DATE: 09/21/2015 FINAL [place] [facility] STATUS: Disch/Trans ShortTerm Gen Hosp-Inpt Care PAYOR: Commercial Insurance ADMIT DX: R07.2 Precordial pain REASON FOR VISIT DX: R07.2 Precordial pain FINAL DX: PRINCIPAL: R07.2 Precordial pain SECONDARY: R10.9 Unspecified abdominal pain R11.0 Nausea I25.2 Old myocardial infarction E78.5 Hyperlipidemia, unspecified F17.210 Nicotine dependence, cigarettes, uncomplicated Z88.8 Allergy status to other drugs, medicaments and biological substances status Z88.5 Allergy status to narcotic agent status PROCEDURES DOCTOR NAME DATE NOTE: The code number assigned matches the documented diagnosis and / or procedure in the patient's chart. However, the narrative phrase printed from the coding software may appear abbreviated, or result in slightly different terminology. Coded By: NGHIA LIZA Date Saved: 09/21/2015 12:30 pm [facility] Document Id: [id number] Miscellaneous - Valarie Centeno RSonjaN. - 09/14/2015 10:07 AM CDT Facility Charge Ticket 2.0 11.0 DX Facility Charge Ticket 2.0 11.0 DX Entered On: 09/14/2015 13:11 CDT Performed On: 09/14/2015 10:07 CDT by VALARIE CENTENO RN Facility Charge Ticket 2.0 11.0 DX ED Other Charges : Standard ED Encounter TVL Level Translated RTF : Chest pain TVL:5 TVL Level for Facility Charge Ticket : Level 5 Arrival Mode Calc : 129 Mode of Arrival ED : Private vehicle [facility] Mode of Arrival Interpreted : Standard [facility] Process Management : None Order Management RTF : Laboratory CBC (includes Auto Differential),09/14/15 10:26,CLARENCE LOPEZ MD Completed Basic Metabolic Panel,09/14/15 10:26,CLARENCE LOPEZ MD Completed AST,09/14/15 10:26,CLARENCE LOPEZ MD Completed ALT,09/14/15 10:26,CLARENCE LOPEZ MD Completed Lipase Level,09/14/15 10:26,CLARENCE LOPEZ MD Completed Bilirubin Direct,09/14/15 10:26,CLARENCE LOPEZ MD Completed Bilirubin Total,09/14/15 10:26,CLARENCE LOPEZ MD Completed Troponin T,09/14/15 10:26,CLARENCE LOPEZ MD Completed Urinalysis with Microscopic,09/14/15 10:26,CLARENCE LOPEZ MD Completed Automated Diff-5 Part,09/14/15 10:46,CLARENCE LOPEZ MD Completed Xray XR Chest 2 Views,09/14/15 10:27,CLARENCE LOPEZ MD Completed CT / MRI / Ultrasound CT Abdomen/Pelvis w/ contrast,09/14/15 10:34,CLARENCE LOPEZ MD Completed [facility] Order Management : CT/MRI/Ultrasound, Lab tests, Xray - plain films 30 Minutes Critical Care : No Nursing Notes RTF : Triage Forms ED Triage Assessment,09/14/15 10:12,VALARIE CENTENO RN Nursing Notes ED Primary Assessment,09/14/15 10:44,VALARIE CENTENO RN ED Nurse Reassess,09/14/15 12:16,VALARIE CENTENO RN ED Pain Assessment,09/14/15 13:10,VALARIE CENTENO RN [facility] Nursing Assessment : Triage and 6+ nursing assessments [facility] Disposition : Transfer/Return to Hospital/SNF [facility] Total Points with Diagnosis Control : 21 [facility] Visit Level : 74130 Level 5 Treatments Prior to Arrival : Aspirin VALARIE CENTENO RN - 09/14/2015 13:11 CDT Chief Complaint 11.0 Reason For Visit Category : Cardiorespiratory TVL Calculation : 20 ED Chief Complaint Cardiorespiratory 11.0 : Chest pain TVL for Facility Charge Ticket Dx : Level 5 VALARIE CENTENO RN - 09/14/2015 13:11 CDT Source: [employer] Document Id: [id number] CDT!23 documented in this encounter Plan of Treatment Not on filedocumented as of this encounter Procedures Procedure Name Priority Date/Time Associated Comments Diagnosis URINALYSIS WITH Routine 09/14/2015 10:29 Results for this MICROSCOPIC AM CDT procedure are i n the results section. AUTOMATED DIFFERENTIAL, Routine 09/14/2015 10:20 Results for this B AM CDT procedure are i n the results section. CBC WITH DIFFERENTIAL, B Routine 09/14/2015 10:20 Results for this AM CDT procedure are i n the results section. TROPONIN T, 5TH GEN, P Routine 09/14/2015 10:20 R esults for this AM CDT procedure are i n the results section. ALANINE AMINOTRANSFERASE Routine 09/14/2015 10:20 Results for this (ALT), S/P AM CDT procedure are i n the results section. ASPARTATE Routine 09/14/2015 10:20 Results for this AMINOTRANSFERASE (AST), AM CDT proc edure are in S/P the results section. LIPASE, S/P Routine 09/14/2015 10:20 Results for this AM CDT procedure are i n the results section. BILIRUBIN DIRECT, S/P Routine 09/14/2015 10:20 Re sults for this AM CDT procedure are i n the results section. BILIRUBIN, TOT, S/P Routine 09/14/2015 10:20 Resu lts for this AM CDT procedure are i n the results section. BASIC METABOLIC PANEL, Routine 09/14/2015 10:20 R esults for this S/P AM CDT procedure are i n the results section. documented in this encounter Results (ABNORMAL) Urinalysis, Complete, Includes Microscopic (09/14/2015 10:29 AM CDT) [facility] Signature Clarity Slightly Clear POWERCHART Cloudy (A) HXUr Color Yellow Colorless POWERCHART Specific 1.020 POWERCHART [place], POCT, U pH, POCT, Urine 7.5 <5.0 POWERCHART Protein, Ur, Negative Negative POWERCHART Dip MGDL Glucose Negative Negative POWERCHART MGDL Ketones, QL(U) Negative Negative POWERCHART MGDL HXBILIRUBIN Negative Negative POWERCHART HXBLOOD Negative Negative POWERCHART Leukocyte Negative Negative POWERCHART Esterase HXNITRITE Negative Negative POWERCHART Urobilinogen 0.2 0.2 MGDL POWERCHART HXUR WBC. None Seen None Seen POWERCHART HPF HXUR RBC. None Seen None Seen POWERCHART HPF Specimen (Source) Anatomical Collection Method Collection Time Re ceived Time Location / / Volume Laterality Urine, First 09/14/2015 10:29 Voided AM CDT Clarence Lopez M.D. LAB URINE ORDERABLES Performing Organization Address City/State/ZIP Code Phon e Number POWERCHART Automated Differential (09/14/2015 10:20 AM CDT) athologist Signature Absolute 4.64 1.70 - POWERCHART Neutrophils 7.00 109L Lymphocytes 1.32 0.90 - POWERCHART 2.90 X109L Monocytes 0.55 0.30 - POWERCHART 0.90 X109L Eosinophils 0.17 0.05 - POWERCHART 0.50 X109L Absolute 0.03 0.00 - POWERCHART Basophil 0.30 X109L Specimen Anatomical Collection Method Collection Time Receive d Time (Source) Location / / Volume Laterality Blood 09/14/2015 10:20 09/14/2015 AM CDT 10:20 AM CDT Clarence Lopez M.D. LAB BLOOD ADD-ON Performing Organization Address City/State/ZIP Code Phon e Number POWERCHART CBC with Differential (09/14/2015 10:20 AM CDT) P athologist Signature Leukocytes 6.7 3.4 - 10.5 POWERCHART X109L Erythrocytes 4.48 3.90 - 5.03 POWERCHART [id number] Hemoglobin 14.7 12.0 - 15.5 POWERCHART GDL Hematocrit 40.7 34.9 - 44.5 POWERCHART MCV 90.8 81.6 - 98.3 POWERCHART FL HX RDW 12.2 11.9 - 15.5 POWERCHART Platelet Count 304 150 - 450 POWERCHART X109L Specimen (Source) Anatomical Collection Method Collection Time Re ceived Time Location / / Volume Laterality Blood 09/14/2015 10:20 AM CDT Clarence Lopez M.D. LAB BLOOD ADD-ON Performing Organization Address City/State/ZIP Code Phon e Number POWERCHART Troponin T (09/14/2015 10:20 AM CDT) P athologist Signature Troponin T, S <0.01 <=0.01 NGML POWERCHART Comment: 0.03 - 0.1 ng/mL Intermediate Z one Specimen (Source) Anatomical Collection Method Collection Time Re ceived Time Location / / Volume Laterality Blood 09/14/2015 10:20 AM CDT Clarence Lopez M.D. LAB BLOOD ADD-ON Performing Organization Address City/State/ZIP Code Phon e Number POWERCHART Bilirubin, Total (09/14/2015 10:20 AM CDT) P athologist Signature Bilirubin, 0.8 0.1 - 1.0 POWERCHART Total, S MGDL Specimen (Source) Anatomical Collection Method Collection Time Re ceived Time Location / / Volume Laterality Blood 09/14/2015 10:20 AM CDT Clarence Lopez M.D. LAB BLOOD ADD-ON Performing Organization Address City/[facility]/ZIP Code Phon e Number POWERCHART Bilirubin Direct (09/14/2015 10:20 AM CDT) P athologist Signature Bilirubin, 0.1 0.0 - 0.3 POWERCHART Direct, S MGDL Specimen (Source) Anatomical Collection Method Collection Time Re ceived Time Location / / Volume Laterality Blood 09/14/2015 10:20 AM CDT Clarence Lopez M.D. LAB BLOOD ADD-ON Performing Organization Address City/[facility]/ZIP Code Phon e Number POWERCHART Lipase (09/14/2015 10:20 AM CDT) P athologist Signature Lipase, S 33.3 10.0 - 73.0 POWERCHART UL Specimen (Source) Anatomical Collection Method Collection Time Re ceived Time Location / / Volume Laterality Blood 09/14/2015 10:20 AM CDT Clarence Lopez M.D. LAB BLOOD ADD-ON Performing Organization Address [facility]/ZIP Code Phon e Number POWERCHART ALT (Alanine Aminotransferase) (09/14/2015 10:20 AM CDT) P athologist Signature Alanine 26 7 - 45 POWERCHART Amniotransferas UNITL e, LD Specimen (Source) Anatomical Collection Method Collection Time Re ceived Time Location / / Volume Laterality Blood 09/14/2015 10:20 AM CDT Clarence Lopez M.D. LAB BLOOD ADD-ON Performing Organization Address City/[facility]/ZIP Code Phon e Number POWERCHART AST (Aspartate Aminotransferase) (09/14/2015 10:20 AM CDT) Patholo gist Method Time Signature Aspartate 28 8 - 43 POWERCHART Aminotransferase UNITL (AST), S Specimen (Source) Anatomical Collection Method Collection Time Re ceived Time Location / / Volume Laterality Blood 09/14/2015 10:20 AM CDT Clarence Lopez M.D. LAB BLOOD ADD-ON Performing Organization Address City/[facility]/ZIP Code Phon e Number POWERCHART BMP (Basic Metabolic Panel) (09/14/2015 10:20 AM CDT) P athologist Signature Sodium, S 136.1 135.0 - POWERCHART 145.0 MML Potassium, S 4.0 3.6 - 4.8 POWERCHART MMOLL Chloride, S 101 98 - 107 POWERCHART MMOLL CO2 Total 23.7 23.0 - 29.0 POWERCHART MMOLL BUN (Blood Urea 8 7 - 18 MGDL POWERCHART Nitrogen), S Creatinine, S 0.66 0.60 - 1.30 POWERCHART MGDL Calcium, Total, 9.5 8.6 - 10.0 POWERCHART S MGDL Anion Gap 11 10 - 20 POWERCHART MMOLL eGFR >60 >=60 POWERCHART Black/ [id number] Mauritian Glucose 103 70 - 139 POWERCHART MGDL HXeGFR (MDRD) >60 >=60 POWERCHART [id number] Specimen (Source) Anatomical Collection Method Collection Time Re ceived Time Location / / Volume Laterality Blood 09/14/2015 10:20 AM CDT Clarence Lopez M.D. LAB BLOOD ADD-ON Performing Organization Address City/State/ZIP Code Phon e Number POWERCHART documented in this encounter Visit Diagnoses Not on filedocumented in this encounter Additional Health Concerns Assessment Noted Time PHQ-9 Depression Total Score: 10 03/11/2013 2:22 PM CS T documented as of this encounter
--- OUTSIDE RECORDS SUMMARY | 2021-10-22 11:51 | XMS_ITS | Encounter Summary ---
:1970 Author Organization [facility] Address [address] [place] [address] Care Team Providers Name Role Phone Elsewhere, Pcp Primary Care Provider Unavailable Encounter Details Date Type Department Care Team Description 06/08/2019 Nurse Triage Department of Rosario Arceo, Medicine, [facility] in [place], [place] [address] [place] [address] [place] [address] [phone] Social History Tobacco Use Types Packs/Day Years [...] or relatives? How often do you attend evangelical or More than 4 times per year 06/22/2019 amish services? Do you belong to any clubs or No 06/22/2019 organizations such as evangelical groups, unions, fraternal or athletic groups, or [...] this encounter Miscellaneous Notes Telephone Encounter - Rosario Tijerina R.N. - 06/08/2019 3:31 PM CDT COVID-19 Nurse Line Screening ASSESSMENT COVID 19 Screening Have you had close contact with a person who has a LABORATORY CONFIRMED case of COVID-19?: No - Continue screening. In the last 48 hours have you had a fever OR new symptoms?: Yes - Continue screening. Do you have any urgent symptoms?: Having trouble breathing or is your breathing worsening PLAN Endpoint recommendation: Emergency Department Care Points provided: Wash hands often with soap and water for at least 20 seconds, especially afterblowing your nose, coughing, sneezing, or having been in a public place If soap and water aren't available, use a hand apron operator that contains at least 60% alcohol Avoid touching your face, nose and eyes Stay home except to get medical care Avoid public areas (do not go to work, school, etc) Avoid public transportation Stay in a specific room away from other people and pets Use a separate bathroom ifpossible Wear a facemask if you are sick before you enter the medical office Advise to contact theiremployer/occupational health department If patient is living with a high risk family member, seek medical advice from their primary care provider. *High risk includes family member with heart of lung disease (e.g. asthma, COPD), immunosuppression (e.g. cancer, HIV/AIDS), women, or 65 years and older Education: patient/caregiver Patient/caregiver able to teach back Patient agreeable to plan of care: Yes The following references were used: [facility] Telephone Triage Protocols for Nurses Nursing judgement documented in this encounter Plan of Treatment Not on filedocumented as of this encounter Visit Diagnoses Not on filedocumented in this encounter Additional Health Concerns Assessment Noted Time PHQ-9 Depression Total Score: 3 09/15/2015 2:08 PM CDT documented as of this encounter Care Teams Big Machine Consultant Relationship Specialty Start Date End Date Elsewhere, Pcp PCP - General Internal Medicine 06/08/19 06/15/21 documented as of this encounter
--- OUTSIDE RECORDS SUMMARY | 2021-10-22 11:51 | XMS_ITS | Encounter Summary ---
:1970 Author Organization [facility] Address [address] [place] [address] Care Team Providers Name Role Phone Unavailable Primary Care Provider Unavailable Reason for Referral Physical Therapy (Routine) - Closed Specialty Diagnoses / Procedures Referred By Contact Refer red To Contact Diagnoses Aftercare Surgery Injury Ganesh Cortes M.D. [facility] [place] [facility] Procedures PT Ongoing treatment [address] [place] [address] Referral ID Status Reason Start Date Expiration Date Visits Requ ested Visits Authorized [id number] Closed 12/21/2018 03/09/2019 99 99 hysical Therapy (Routine) - Closed Specialty Diagnoses / Procedures Referred By Contact Refer red To Contact Diagnoses Aftercare Surgery Ganesh Recinos M.D. [facility] [place] [facility] Procedures PT Ongoing treatment [address] [place] [address] Referral ID Status Reason Start Date Expiration Date Visits Requ ested Visits Authorized [id number] Closed 12/21/2018 03/09/2019 99 99 Reason for Visit Physical Therapy (Routine) - Closed Specialty Diagnoses / Procedures Referred By Contact Refer red To Contact Diagnoses Aftercare Surgery Ganesh Recinos M.D. [facility] [place] [facility] Procedures PT Evaluate and treat [address] [place] [address] [address] Referral ID Status Reason Start Date Expiration Date Visits Requ ested Visits Authorized [id number] Closed 11/27/2018 11/27/2019 1 1 Encounter Details Date Type Department Care Team Description 12/21/2018 Comprehensive Visit Department of Vida Cortes M.D. [address] [place] [address] Aftercare Surgery Rehabilitation Alyce Salguero P.T. [address] [place] [phone] Injury Services in [address] [address] Social History Tobacco Use Types Packs/Day Years [...] or relatives? How often do you attend buddhism or More than 4 times per year 06/22/2019 adventism services? Do you belong to any clubs or No 06/22/2019 organizations such as buddhism groups, unions, fraternal or athletic groups, or [...] documented as of this encounter Consult Notes Alyce Salguero P.T. - 12/21/2018 3:30 PM CDT Consults Physical Therapy Outpatient Evaluation/Treatment By co-signing this note, the provider certifies the therapy being provided to this patient is reasonable and necessary for the diagnosis or treatment of this patient. SUBJECTIVE Patient's Name: Laura Novak Referring Provider: Ganesh Cortes M.D. Visit Diagnosis: 1. Aftercare Surgery Injury Payor: [employer] / Plan: [employer] / Product Type: PPO / Oris4 Visit Count: 1 PERTINENT MEDICAL / SURGICAL HISTORY: Patient Active Problem List Diagnosis ??? Depression Major Recurrent (HCC) ??? Angina Prinzmetal (HCC) ??? Aftercare Surgery Injury Past Surgical History: Procedure Laterality Date ??? LOOP ELECTRO EXCISION OF CERVIX N/A 08/22/1996 LEEP procedure of cervix ??? OTHER CONVERTED SHX (SEE COMMENT) N/A 02/06/1998 Gel ripening/Pitocin induction. >Normal spontaneous vaginal delivery, Raman ??? TOTAL ABDOMINAL HYSTERECTOMY WITH BILATERAL SALPINGO-OOPHORECTOMY N/A Total abdominal hysterectomy (corpus and cervix), with or without removal of tube(s), with or without removal of ovary(s);.. Precautions: NWB on the left lower extremity. No hip flexion greater than 90 degrees, abduction restricted to 45 degrees, no extension and no ER. Hip brace x 2 weeks. Laura Novak is a 48 y.o. female who presents to outpatient physical therapy for evaluation. Hersymptoms consist of: 1. Left hip pain Overall she reports her status is improving. History of Present Illness: patient is status post a left hip scope with labral repair, chondroplasty, capsular closure performed by Dr. Cortes at [facility] in [place] on December 18, 2018. Aggravating Factors: Movement and ambulation (NWB with crutches). Relieving Factors: Rest, ice and Tylenol. Previous Treatments: Physical Therapy and Surgery. Prior Level of Function: History of bilateral hip pain, greater than one year. Patient independent. Patient goals: To resolve pain and return to previous level of function. OBJECTIVE PHYSICAL EXAM Pain: /10, patient is trying not to take pain medication as it makes her itchy. She is taking Tylenol minimally. Ortho Exam Patient presents to physical therapy today in wheelchair. Patient has hip brace on. Patient has beenambulating with crutches at home. Longer distances are difficult due to right hip pain and upper extremity fatigue. Patient ambulates nonweightbearing on the left lower extremity with the use of crutches. Patient is able to tolerate short distances independently. Patient does fatigue quickly and has mild balance reactions. Patient was able to maintain nonweightbearing status. Patient also ambulated with the use of a front wheel walker. Patient was significantly more steady with this. Patient had improved endurance and improved posture. Recommend the patient utilize a front wheeled walker for ambulation. Would recommend patient continue to utilize crutches for stairs. Patient transfers independently. Patient does demonstrate a rapid to stand on stand to sit transfer.Patient was cued to extend the involved lower extremity and slowly lowered to sitting surface. Passive range of motion for the left hip flexion to 70??, abduction 10??. Ankle range of motion is within normal limits. Dorsiflexion, plantar flexion and extensor hallucis longus 5/5 in strength. Homans test is negative. TREATMENT Treatment today consisted of: Today performed gentle range of motion for hip flexion to 70??, abduction 10?? and logroll with leg extended for assessment of mobility. Instructed patient on ambulation. Would recommend use of a frontwheeled walker for improved stability and endurance. Patient was able to maintain nonweightbearing status. Patient was instructed on restrictions per protocol. Patient ring nonweightbearing utilizing hip brace. Patient will be void hip flexion beyond 90??. Patient will avoid hip abduction beyond 45??.Patient will avoid hip extension and external rotation. Home Exercise Program/Education: Patient is performing the CPM at home Week 1 0- 45 degrees. Week 2 0-75 degrees. Week 3 0-90 degrees. Patient provided with a home exercise program to perform only to tolerance. Patient to not push through pain. Exercises included transverse abdominal contraction 3 x 10 repetitions. Hamstring stretch in a seated position with leg extended avoiding hip flexion beyond 90??. Patient perform up to 3 repetitions times 30 seconds. Patient instructed on isometric hip abduction in supine with legs extended while performing a transverse abdominal contraction at 2 x 10 repetitions. Patient instructed on a gluteal set at 2 x 10 repetitions with patient in supine with legs extended. Patient will trial prone lying. Patient verbalized understanding. Patient given written handout with illustrations. Patient is ready to learn with no apparent learning barriers noted. Patient's spouse was present as well. Assessment Clinical Impression: Ms. Novak presents to physical therapy with signs and symptoms consistent with left hip labral repair. Impairments: Pain, decreased range of motion, decreased strength decreased mobility with restricted gait. Functional Deficits: Decreased positional and activity tolerance. Nonweightbearing left lower extremity for ambulation. Rehab Potential: Ms. Novak has good potential to achieve established physical therapy goals within the time frame outlined below, provided she actively participates in her physical therapy treatment plan and home program. Functional Goals and Timeframes: PT Goal #1: [...] pain or irritation in 12 weeks. Plan Ms. Novak was educated regarding evaluative findings, diagnosis, prognosis, potential risks and benefits of rehabilitation interventions. A collaborative effort was used to establish goals and plan ofcare. She was informed of her right to make decisions regarding her care, including refusal of examination or treatment or selection of services from another provider if desired. The treatment plan maybe progressed or modified based upon her response to treatment. Treatment Plan: Start of Plan of Care: 12/21/2018 Number of Visits: 12 visits PT Duration: 12 weeks PT Frequency: 1-2x/week Treatment interventions may include: Patient education, home exercise program, range of motion, stretching, strengthening, gait and balance training. Physical therapy plan of care will follow provider's protocol. Plan for next session: Continue with weak when exercises working on gentle passive range of motion within restrictions and initiating the following exercises per protocol: Quadruped cat and camel -Standing abduction with IR -Quadruped rockback (with slight posterior pelvic tilt) -Quadruped hip extensions (within motion limitations, being careful when approaching full ext in thepresence of core weakness) -Quadruped bird dogs (if demonstrating appropriate muscle firing patterns) Time Spent with Patient PT Evaluation (min): 40 min Time Calculation Total Treatment Time (min): 40 min Functional G-code Worksheet Alyce Salguero P.T. Department of Rehabilitation Services in [address] [address] Dept: [phone] documented in this encounter Plan of Treatment Not on filedocumented as of this encounter Visit Diagnoses Diagnosis Aftercare Surgery Injury documented in this encounter Additional Health Concerns Assessment Noted Time PHQ-9 Depression Total Score: 3 09/15/2015 2:08 PM CDT documented as of this encounter
--- OUTSIDE RECORDS SUMMARY | 2021-10-22 11:51 | XMS_ITS | Encounter Summary ---
:1970 Author Organization [facility] Address [address] [place] [address] Care Team Providers Name Role Phone Unavailable Primary Care Provider Unavailable Encounter Details Date Type Department Care Team Description 03/08/2014 Hospital Encounter HX [facility] Juve Christiansen, ALVERTO, C.N.P., D. N.P. [address] [place] [address] (Wo rk) Social History Tobacco [...] or relatives? How often do you attend worship or More than 4 times per year 06/22/2019 sikh services? Do you belong to any clubs or No 06/22/2019 organizations such as worship groups, unions, fraternal or athletic groups, or [...] Sign Reading Time Taken Comments Blood Pressure 136/74 03/08/2014 7:51 AM CONSULTING MARINE ENGINEER Pulse 60 03/08/2014 7:51 AM CONSULTING MARINE ENGINEER Temperature - - Respiratory Rate 16 03/08/2014 7:51 AM CONSULTING MARINE ENGINEER Oxygen Saturation - - Inhaled Oxygen Concentration - - Weight 87.6 kg (193 lb 2 oz) 03/08/2014 7:51 AM CONSULTING MARINE ENGINEER Height 173 cm (5' 8.11) 03/08/2014 7:51 AM CONSULTING MARINE ENGINEER Body Mass Index 29.27 03/08/2014 7:51 AM CONSULTING MARINE ENGINEER documented in this encounter Progress Notes Juve Christiansen D.N.P., C.N.P. - 03/08/2014 7:32 AM CST [id number] CHIEF COMPLAINT/REASON FOR VISIT Excessive sweating. HISTORY OF PRESENT ILLNESS Patient is a 43-year-old female who presents to the clinic today with a chief complaint of having some excessive sweating status post vaginal hysterectomy in 2004. She also has a history of a myocardial infarction in 2010. She indicates that she has excessive hot flashes which are not necessarily anxiety driven. She reports that on occasion just randomly she will perspire, drenching her clothing. Sheindicates more so her axillary area and her chest area are the causes. She indicates that this is becoming more bothersome for her. She also indicates that she has been having some difficulty being able to lose weight, however does admit that she probably could be making further dietary changes. She does report that she is currently exercising to help combat her weight. She otherwise reports that sheis not having any other complaints at this time. PAST MEDICAL/SURGICAL HISTORY Reviewed. Please see chart. FAMILY HISTORY Reviewed. Please see chart. MEDICATIONS Reviewed. Please see chart. ALLERGIES Reviewed. Please see chart. PHYSICAL EXAMINATION GENERAL: Patient is alert/oriented x3. HEAD: Normocephalic/atraumatic. PUPILS: GONZALO. OROPHARYNX: [place] and moist. TYMPANIC MEMBRANES: Bilateral TMs are clear, bony landmarks noted and within normal limits. NARES: Patent, no erythema or drainage noted. NECK: No anterior/posterior lymphadenopathy noted. HEART: Regular S1, S2, no murmurs, rubs, or gallops noted. LUNGS: Clear to auscultation, no prolonged expiratory phases, wheezing, rales, or rhonchi noted. SKIN: Without unusual rashes or suspicious lesions. DIAGNOSTICS Cortisol a.m. and p.m., TSH, free T4, 24-hour urine, 5-HIAA, and a 24-hour urine catecholamine test are presently pending. PHQ-9 score noted to be a total of 2 with a score of 0 on question #9. IMPRESSION/REPORT/PLAN Complaints of hyperhidrosis. PLAN: Discussed overall findings at length with the patient. Will have the patient return to the clinic in 1 week duration for followup on her labs. Given her medical history, we will further discuss treatment if all testing is otherwise unremarkable as also she is not a candidate for hormone replacement therapy, given her history of myocardial infarction in 2010. These plans were discussed at lengththe patient. The patient feels very comfortable with this treatment plan. She denies having further questions or concerns. The patient left clinic in no acute distress. Ready to learn. No apparent learning barriers were identified. Learning preferences include listening. Explained diagnosis and treatment plan. Patient/Child/Caregiver expressed understanding of the content. Juve Christiansen D.N.P./Ronel/shimon Electronically Signed By: JUVE CHRISTIANSEN DNP, FNP On: 03/08/2014 10:15 AM Source: [facility] MHSDOLBEYNONRADSYS Document Id: [id number] ULTING MARINE ENGINEER documented in this encounter Miscellaneous Notes Miscellaneous - Juve Christiansen D.N.P., Ken.N.P. - 03/08/2014 8:37 AM CONSULTING MARINE ENGINEER Ambulatory Patient Summary [address] [id number] Visit Information Name: MURALI GERMAN JATIN [facility] Number: [id number] Current Date: 03/08/2014 08:37:59 Physicians Attending Provider: JUVE CHRISTIANSEN DNP, FNP [...] the Following Medications: Medication list as of 03-08-14 08:37 Attention: If you have any medications at [...] Signed By: JUVE CHRISTIANSEN DNP, FNP Signed On:08-MAR-2014 08:37:28 Your Allergies & Intolerances Substance Reaction Symptoms [...] vasospasm Mrs. Novak was transferred from the [place] emergency department where he initial troponin was 0.06, and a CK-MB was 5.9. [facility]. She was transferred to [facility] for evaluation of her elevation in her cardiac serial biomarkers. Due to her associated symptoms of headache and shortness of breath with the chest pain, a head CT was obtained upon arrival to [facility] and did not reveal any abnormalities. [...] of increased severe stressors at home and [employer], we have set up a psychology [...] detail needed. Your Goals/Additional instructions: Future Appointment: follow up in one week Lab: _ Radiology: _ Need Prior Auth: _ NO Prior Auth: _ Consult: _ Release of MR_ PHI_ Source: [facility] [employer] Document Id: [id number] ULTING MARINE ENGINEER Miscellaneous - Juve Christiansen, Cynthia.N.P., C.N.P. - 03/08/2014 8:37 AM CONSULTING MARINE ENGINEER Ambulatory Discharge Medication List [address] [id number] Visit Information Name: GERMAN NOVAK [facility] Number: [id number] Visit Date: 03/08/2014 08:37:58 Attending Provider: JUVE CHRISTIANSEN DNP, FNP Primary [...] the Following Medications: Medication list as of 03-08-14 08:37 Attention: If you have any medications at [...] Signed By: JUVE CHRISTIANSEN DNP, FNP Signed On:08-MAR-2014 08:37:28 Additional Information: Source: [facility] POWERCHART Document Id: [id number] ULTING MARINE ENGINEER Miscellaneous - Conversion, Historical Provider Ser - 03/08/2014 7:51 AM CONSULTING MARINE ENGINEER Adult Frame Gate Mortiser Operator Intake/History Adult Frame Gate Mortiser Operator Intake/History Entered On: 03/08/2014 7:56 CONSULTING MARINE ENGINEER Performed On: 03/08/2014 7:51 CONSULTING MARINE ENGINEER by ARLETTE MADSEN LPN Intake Chief Complaint : excessive sweating all over body . Gaining weight. Onset of Symptoms : 2-3 months. Temperature Core : 36.2 DegC(Converted to: 97.2 DegF) (LOW) Peripheral Pulse Rate : 60 /min Respiratory Rate : 16 /min Heart Rhythm : Regular Systolic Blood Pressure : 136 mmHg Diastolic Blood Pressure : 74 mmHg NIBP Mean : 95 mmHg BP Location : Left upper extremity Blood Pressure Cuff Size : Large SpO2 : 98 % Oxygen Therapy : Room air Height : 173 cm(Converted to: 5 ft 8 inch(es), 68 inch(es)) Actual Weight : 87.6 kg(Converted to: 193 lb 2 oz) Dosing Weight Clinic : 87.6 kg Clinic BSA : 2.05 Body Mass Index : 29.27 kg/m2 ARLETTE MADSEN LPN - 03/08/2014 7:51 CONSULTING MARINE ENGINEER General Info Information Given By : Patient Languages : Occitan Is Patient Female and 13-50 no hysterectomy : No ARLETTE MADSEN [facility] - 03/08/2014 7:51 CONSULTING MARINE ENGINEER Subjective Pain Symptoms : ARLETTE Carranza [facility] - 03/08/2014 7:51 CONSULTING MARINE ENGINEER Dependent Habits Tobacco Use/Currently Using : No Exposure to Tobacco Smoke : Care provider denies smoking in home Smoking Status : Former smoker ARLETTE MADSEN [facility] - 03/08/2014 7:51 CONSULTING MARINE ENGINEER Tobacco Use Grid Type : Cigarettes Last Use : 04/09/12 ARLETTE MADSEN [facility] - 03/08/2014 7:51 CONSULTING MARINE ENGINEER Caffeine Use Grid Caffeine Use : Current Type : Soft drinks Frequency : Daily Amount : 1 ARLETTE MADSEN [facility] - 03/08/2014 7:51 CONSULTING MARINE ENGINEER Recreational Drug Use Grid Drug Use : None ARLETTE MADSEN [facility] - 03/08/2014 7:51 CONSULTING MARINE ENGINEER ID Screen Drug Resistant Organism : No Travel Within Last 21 Days : ARLETTE Carranza [facility] - 03/08/2014 7:51 CONSULTING MARINE ENGINEER Source: [employer] Document Id: [id number] CONSULTING MARINE ENGINEER!46 documented in this encounter Plan of Treatment Not on filedocumented as of this encounter Procedures Procedure Name Priority Date/Time Associated Diagnosis Comme nts THYROID-STIMULATING Routine 03/08/2014 8:25 AM Re sults for this HORMONE-SENSITIVE CONSULTING MARINE ENGINEER procedure are in (S-TSH) the results section. T4 (THYROXINE), Routine 03/08/2014 8:25 AM Result s for this FREE, S CONSULTING MARINE ENGINEER procedure are i n the results section. CORTISOL, S Routine 03/08/2014 8:25 AM Results f or this CONSULTING MARINE ENGINEER procedure are i n the results section. documented in this encounter Results T4 (Thyroxine), Free (03/08/2014 8:25 AM CONSULTING MARINE ENGINEER) P athologist Signature T4 (Thyroxine), 1.2 NGDL POWERCHART Free, S Comment: REFERENCE VALUE------ 0.8-1.8 Elevated values are seen in patients on thyroxine therapy. Test Performed by: [place] [address] Stud Sheep Farmer: Leanne Jorge Specimen (Source) Anatomical Collection Method Collection Time Re ceived Time Location / / Volume Laterality Blood 03/08/2014 8:25 AM CONSULTING MARINE ENGINEER Juve Christiansen APRN, C.N.P., D.N.P. LAB BLOOD ADD- ON Performing Organization Address City/[facility] Code Phon e Number POWERCHART Thyroid-Stimulating Hormone-Sensitive (s-TSH) (03/08/2014 8:25 AM CONSULTING MARINE ENGINEER) P athologist Signature TSH 2.63 0.27 - 4.20 POWERCHART (Thyrotropin) MIUL Specimen (Source) Anatomical Collection Method Collection Time Re ceived Time Location / / Volume Laterality Blood 03/08/2014 8:25 AM CONSULTING MARINE ENGINEER Juve Christiansen APRN, C.N.P., D.N.P. LAB BLOOD ADD- ON Performing Organization Address [facility] Code Phon e Number POWERCHART Cortisol (03/08/2014 8:25 AM CONSULTING MARINE ENGINEER) P athologist Signature Cortisol AM 16 7 - 25 POWERCHART Result MCGDL Comment: Test Performed by: [place] [address] Stud Sheep Farmer: Leanne Jorge Specimen (Source) Anatomical Collection Method Collection Time Re ceived Time Location / / Volume Laterality Blood 03/08/2014 8:25 AM CONSULTING MARINE ENGINEER Juve Christiansen APRN, C.N.P., D.N.P. LAB BLOOD ADD- ON Performing Organization Address City/[facility] Code Phon e Number POWERCHART documented in this encounter Visit Diagnoses Not on filedocumented in this encounter Additional Health Concerns Assessment Noted Time PHQ-9 Depression Total Score: 10 03/11/2013 2:22 PM CS T documented as of this encounter
--- OUTSIDE RECORDS SUMMARY | 2021-10-22 11:52 | XMS_ITS | Encounter Summary ---
:1970 Author Organization [facility] Address [address] [place] [address] Care Team Providers Name Role Phone Unavailable Primary Care Provider Unavailable Encounter Details Date Type Department Care Team Description 08/06/2009 Hospital Encounter HX [facility] Brenda Garvey M.D. [address] [place] [phone] (Wo rk) Social History Tobacco Use Types [...] More than 4 times per year 06/22/2019 taoist services? Do you belong to any clubs or No 06/22/2019 organizations such as islam groups, unions, fraternal or athletic groups, or [...]
--- OUTSIDE RECORDS SUMMARY | 2021-10-22 11:52 | XMS_ITS | Encounter Summary ---
:1970 Author Organization [facility] Address [address] [place] [address] Care Team Providers Name Role Phone Unavailable Primary Care Provider Unavailable Encounter Details Date Type Department Care Team Description 06/21/2009 Hospital Encounter HX [facility] Alaina Larkin, P.AArunC. [address] [place] [address] (Wo rk) Social History Tobacco Use Types [...] or relatives? How often do you attend religion or More than 4 times per year 06/22/2019 mormonism services? Do you belong to any clubs or No 06/22/2019 organizations such as religion groups, unions, fraternal or athletic groups, or [...]
--- OUTSIDE RECORDS SUMMARY | 2021-10-22 11:52 | XMS_ITS | Encounter Summary ---
:1970 Author Organization [facility] Address [address] [place] [address] Care Team Providers Name Role Phone Unavailable Primary Care Provider Unavailable Encounter Details Date Type Department Care Team Description 08/06/2009 Hospital Encounter HX [facility] Brenda Garvey M.D. [address] [place] [phone] (Wo rk) Social History Tobacco [...] More than 4 times per year 06/22/2019 evangelical services? Do you belong to any clubs [...]
--- OUTSIDE RECORDS SUMMARY | 2021-10-22 11:52 | XMS_ITS | Encounter Summary ---
:1970 Author Organization [facility] Address [address] [place] [address] Care Team Providers Name Role Phone Unavailable Primary Care Provider Unavailable Encounter Details Date Type Department Care Team Description 06/07/2004 Hospital Encounter [facility] Shahriar Marina M.D. [facility] [place], [place] [address] (Wo rk) Social History Tobacco Use Types [...] or relatives? How often do you attend faith or More than 4 times per year 06/22/2019 zoroastrianism services? Do you belong to any clubs or No 06/22/2019 organizations such as faith groups, unions, fraternal or athletic groups, or [...] documented as of this encounter Miscellaneous Notes Miscellaneous - Butch Parada M.D. - 06/07/2004 12:00 AM CST [id number] Date: 06/07/2004 Name: Laura Novak Birthdate: 1970 Soc.Sec.No: [id number] The patient was seen at: [facility] Restrictions if any: OFF Work from 06/06/04 until 07/19/04. Laura had major surgery 06/06/04. Butch Parada M.D. OBSTETRICS/GYNECOLOGY [facility] Source: [facility]ENTER[facility]XTRANSXRTFSYBenjamín Document Id: [id number] Electronically signed by Conversion, [facility] Mortgage Field Inspector [id number] at 08/12/2016 9:15 PM CDT Miscellaneous - Butch Parada M.D. - 06/07/2004 12:00 AM CST [id number] [facility] [address] [facility], [address] Name: Laura Novak Birthdate: 1970 SSN: [id number] [facility] Admission Date: 06/06/04 Allergy: Review of patient's allergies indicates no known allergies. PHYSICIAN's DISCHARGE / TRANSFER ORDERS DISCHARGE TO: Home MEDICATIONS: Motrin 400mg or 600 mg every 6 hours as needed for pain, take with food Tylenol extra strength, 2 every 4 hours as needed for pain DIET: regular HOSPITAL COURSE: Complications: none Discharge hemoglobin - 11.9 g/dL. Admitting Diagnosis: dysmenorrhea, menorrhagia. Discharge Diagnosis: dysmenorrhea, menorrhagia. Discharge exam - B/P - 112/63 Lungs - clear Abdomen - soft Vaginal discharge - minimal No costovertebral angle (CVA) tenderness No leg tenderness . CONDITION ON DISCHARGE: Satisfactory LEVEL OF ACTIVITY: no driving for 1 week, no intercourse for 6 weeks and no lifting over 10 lbs for 6 weeks, may bathe or shower APPOINTMENTS: With surgeon in 6 weeks REFERRALS: NONE OTHER ORDERS/COMMENTS: Call if heavy bleeding, severe cramps or temperature over 100.4 degrees DISCHARGE SUMMARY DICTATED?: See Hospital Course information above. PROCEDURE(S) PERFORMED: Total Vaginal Hysterectomy Time spent in discharging patient - less than [address] BUTCH PARADA 06/07/2004 Source: [facility] JOSE ENRIQUEHXTRANSXRTFSYS Document Id: [id number] Electronically signed by Conversion, [facility] Mortgage Field Inspector [id number] at 08/12/2016 9:15 PM CDT documented in this encounter Plan of Treatment Not on filedocumented as of this encounter Visit Diagnoses Not on filedocumented in this encounter
--- OUTSIDE RECORDS SUMMARY | 2021-10-22 11:52 | XMS_ITS | Encounter Summary ---
:1970 Author Organization [facility] Address [address] [place] [address] Care Team Providers Name Role Phone Unavailable Primary Care Provider Unavailable Encounter Details Date Type Department Care Team Description 04/24/2012 Hospital Encounter HX [facility] Nicky Llanes M.D. [address] [place] [address] ERNESTO Ramirez [phone] (Wo rk) Social History Tobacco Use Types [...] or relatives? How often do you attend christian or More than 4 times per year 06/22/2019 christian services? Do you belong to any clubs or No 06/22/2019 organizations such as christian groups, unions, fraternal or athletic groups, or [...] Sign Reading Time Taken Comments Blood Pressure 116/72 04/24/2012 9:04 AM PUTTY MAKER Pulse 64 04/24/2012 9:04 AM PUTTY MAKER Temperature - - Respiratory Rate 16 04/24/2012 9:04 AM PUTTY MAKER Oxygen Saturation - - Inhaled Oxygen Concentration - - Weight 83.7 kg (184 lb 8.4 oz) 04/24/2012 9:04 AM PUTTY MAKER Height 173 cm (5' 8.11) 04/24/2012 9:04 AM PUTTY MAKER Body Mass Index 27.97 04/24/2012 9:04 AM PUTTY MAKER documented in this encounter Progress Notes Nicky Gomez M.D. - 04/24/2012 8:37 AM CST [id number] CHIEF COMPLAINT/REASON FOR VISIT Follow-up mood and skin lesions. HISTORY OF PRESENT ILLNESS German is a 41-year-old female who comes in today to follow up on her mood. She states thatsince we increased the Prozac in February things have been going great. She really has no concerns about her mood. Her PHQ-9 score today is 4 stating that several days out of the week she feels down, depressed or hopeless, has difficulty with her sleep, feels tired or feels bad about herself. This is much improved over her score of 15 three months ago. She denies any side effects with the Prozac. The patient also reports that the spot to her right mandaeism seems to be getting a little bit more raised and darker. We had previously discussed removing it if it continued to change and the patient is interested in this. Lastly, she reports that she needs to have her lipids checked to follow up on stopping the simvastatin per cardiology's recommendation in January. CURRENT MEDICATIONS Reconciled. No changes. ALLERGIES Narcotics, namely Percocet and morphine as well as Toradol. SYSTEMS REVIEW Review of systems as per history of present illness. She does note that the spot to the right templeitches from time to time. VITAL SIGNS Temperature 36.2, pulse is 64 beats per minute. Respiratory rate is 16 breaths per minute, blood pressure is 116/72. Oxygen saturation is 98% on room air. Height is 173 cm. Weight is 83.7 kg. BMI is 27.9. PHYSICAL EXAMINATION GENERAL: Patient is alert and oriented, in no acute distress. PSYCHIATRIC: Patient's mood is euthymic. Affect is mood congruent. Speech is of regular rate and rhythm. Thought process is linear and goal directed and judgment and insight are adequate. SKIN: Over the patient's right mandaeism within her hairline, there is a brown, raised lesion that is approximately 7 mm x 8 mm. It does have some darker freckles in it and hairs growing through it. Margins are fairly distinct. PROCEDURE: Shave biopsy of the right mandaeism. We discussed the procedure today including risks of bleeding, infection and scarring. We also discussed different options for removal stating that the shave biopsy would likely be best to leave the least amount of scar. Patient voiced understanding. Consent was signed. [place] protocol was followed.The entirety of the procedure was completed by Jj Velásquez, fourth year medical student working with me today. This was under my direct supervision the entire time. The lesion was cleansed withBetadine times 3. It was then anesthetized with 1% lidocaine with epinephrine. Then using the Dermablade, the lesion was removed with a shave procedure. It was sent to pathology. Pressure was held to control the bleeding and we then used silver nitrate to cauterize any remaining blood vessels. Bleeding was minimal. Patient tolerated the procedure well. A band-aid was placed over it. IMPRESSION/REPORT/PLAN 1. Major depressive disorder in full remission. Patient will continue on her Prozac. She has had a very good response. We will see her back in 6 months to a year for this. 2. Skin lesion of uncertain behavior. Likely this is a seborrheic keratosis, but it is changing and the patient is worried about it so we completed a shave biopsy today and this will be sent to pathology. 3. Hyperlipidemia. Patient will return when she is fasting to have her cholesterol checked. PATIENT EDUCATION: Ready to learn No apparent learning barriers were identified Learning preferences include listening Explained diagnosis and treatment plan Patient/Child/Caregiver expressed understanding of the content Nicky Manzo M.D./latasha DOCID: [id number] Electronically Signed By: NICKY MONTIEL MD On: 05/01/2012 07:37 AM Modified by and Electronically Signed by: NICKY MONTIEL MD On: 05/01/2012 07:36 AM Source: [facility] [id number] Document Id: [id number] Y MAKER documented in this encounter Miscellaneous Notes Miscellaneous - Rebecca Granados LSonjaP.N. - 04/24/2012 3:07 PM CST PHQ-9 PHQ-9 Entered On: 04/24/2012 15:08 PUTTY MAKER Performed On: 04/24/2012 15:07 PUTTY MAKER by REBECCA GRANADOS CUSTOM STOCK MAKER, RT PHQ-9 Little interest or pleasure in doing things : Not at all Feeling down, depressed, or hopeless : Several days Trouble falling or staying asleep, or sleeping too much : Several days Feeling tired or having little energy : Several days Poor appetite or overeating : Not at all Feeling bad about yourself or that you are a failure : Several days Trouble concentrating on things : Not at all Moving or speaking slowly; restless or fidgety : Not at all Thoughts that you would be better off /hurting self : Not at all PHQ-9 Calculated Score : 4 Problems make work, home, or dealing with others : Not difficult at all REBECCA GRANADOS LPN, RT - 04/24/2012 15:07 PUTTY MAKER Source: [facility] LeanKit Document Id: [id number] Y MAKER Miscellaneous - Nicky Gomez M.D. - 04/24/2012 1:22 PM PUTTY MAKER Ambulatory Patient Summary [address] [address] Visit Information Name: GERMAN NOVAK [facility] Number: [id number] Current Date: 04/24/2012 13:22:57 Physicians Attending Provider: NICKY MONTIEL MD Primary Care Provider: LAVELL BUCHANAN RN, BUSINESS PLANNER Your Medications Here is a list of your medications. It is important to take your medications as directed. Use a pillbox or chart to help remind you to take your medications. Please let your doctor or nurse know if you have problems taking your medications. Medication/Strength Dose Route Frequency Indications/Special Instructions/Comments fluoxetine (Prozac 40 mg oral capsule) 40 mg Oral once a day ergocalciferol (Vitamin D 400 iu oral tablet) 400 IntU Oral once a day ascorbic acid (Vitamin C 500 mg oral tablet) 500 mg Oral once a day aspirin (aspirin 81 mg oral tablet) 1 tab(s) Oral once a day multivitamin (Multiple Vitamins oral tablet) 1 tab(s) Oral once a day Attention: If you have any medications at home that are not on this list, DO NOT take them until youcontact your provider for clarification. Your Allergies & Intolerances Substance Reaction Symptoms Category Comments morphine Drug narcotic analgesics itch Drug Toradol Drug Percocet 5/325 Drug Your Problem List Problem Status Onset Comments Common migraine Active Hyperlipidemia Active 02/14/12 unknown date of dx; 04/10/12 Patient stated she does not have this diagnosis History of - myocardial infarction Active 04/24/12 NSTEMI 06/2010 Your Upcoming Appointments Date Time Location Reason Provider No Appointments found Your Goals/Additional instructions: [facility]: [id number] Y MAKER Miscellaneous - Nicky Gomez M.D. - 04/24/2012 1:22 PM PUTTY MAKER Ambulatory Depart Summary [address] [address] Visit Information Name: GERMAN NOVAK [facility] Number: [id number] Visit Date: 04/24/2012 13:22:57 Attending Provider: NICKY MONTIEL MD Primary Care Provider: LAVELL BUCHANAN RN, BUSINESS PLANNER YUSEFFERNANDOGERMANE has been given the following list of medications: Your Medications It is important to take your medications as directed. Use a pill box or chart to help remind you to take your medications. Please let your doctor or nurse know if you have problems taking your medications. Medication/Strength Dose Route Frequency Indications/Special Instructions/Comments fluoxetine (Prozac 40 mg oral capsule) 40 mg Oral once a day ergocalciferol (Vitamin D 400 iu oral tablet) 400 IntU Oral once a day ascorbic acid (Vitamin C 500 mg oral tablet) 500 mg Oral once a day aspirin (aspirin 81 mg oral tablet) 1 tab(s) Oral once a day multivitamin (Multiple Vitamins oral tablet) 1 tab(s) Oral once a day Attention: If you have any medications at home that are not on this list, DO NOT take them until youcontact your provider for clarification. Additional Information: [facility] Document Id: [id number] Y MAKER Miscellaneous - Damaris Colindres L.P.N. 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, wants cholesterol checked, Temperature Core : 36.2C(Converted to: 97.2DegF) (LOW) Peripheral Pulse Rate : 64/min Respiratory Rate : 16/min Heart Rhythm : Regular Systolic Blood Pressure : 116mmHg Diastolic Blood Pressure : 72mmHg NIBP Mean : 87mmHg BP Location : Left upper extremity Blood Pressure Cuff Size : Regular SpO2 : 98% Oxygen Therapy : Room air Height : 173.0cm(Converted to: 5ft 8inch(es), 68.11inch(es)) Actual Weight : 83.7kg(Converted to: 184lb 8oz) Weight Source : Standing scale Dosing Weight Clinic : 83.70kg Clinic BSA : 2.01 Body Mass Index : 27.97kg/m2 DAMARIS COLINDRES LPN - 04/24/2012 9:04 PUTTY MAKER General Info Information Given By : Patient Languages : Lao DAMARIS COLINDRES LPN - 04/24/2012 9:04 PUTTY MAKER Subjective Pain Symptoms : No DAMARIS COLINDRES LPN - 04/24/2012 9:04 PUTTY MAKER Dependent Habits Tobacco Use/Currently Using : No Tobacco Use/Last 12 months : No Tobacco Use/Advised to Quit : No Exposure to Tobacco Smoke : Care provider denies smoking in home Smoking Status : Former smoker DAMARIS COLINDRES LPN - 04/24/2012 9:04 PUTTY MAKER Tobacco Use Grid Type : Cigarettes Last Use : 04/09/12 DAMARIS COLINDRES LPN - 04/24/2012 9:04 PUTTY MAKER Alcohol Use : Yes DAMARIS COLINDRES LPN - 04/24/2012 9:04 PUTTY MAKER Caffeine Use Grid Caffeine Use : Current Type : Soft drinks Frequency : Daily Amount : 1 DAMARIS COLINDRES LPN - 04/24/2012 9:04 PUTTY MAKER Recreational Drug Use Grid Drug Use : None DAMARIS COLINDRES LPN - 04/24/2012 9:04 PUTTY MAKER Allergy Allergies (Active) morphine Estimated Onset Date: Unspecified ; Created By: RAVEN DELUNA LPN; Reaction Status: Active ; Category: Drug ; Substance: morphine ; Type: Allergy ; Updated By: RAVEN DELUNA LPN; Reviewed Date: 04/24/2012 9:03 PUTTY MAKER narcotic analgesics Estimated Onset Date: Unspecified ; Reactions: itch ; Created By: NELLIE JOHNSON RN; Reaction Status: Active ; Category: Drug ; Substance: narcotic analgesics ; Type: Sensitivity ; Updated By: NELLIE JOHNSON RN; Reviewed Date: 04/24/2012 9:03 PUTTY MAKER Percocet 5/325 Estimated Onset Date: Unspecified ; Created By: RAVEN DELUNA LPN; Reaction Status:Active ; Category: Drug ; Substance: Percocet 5/325 ; Type: Allergy ; Updated By: RAVEN DELUNA LPN; Reviewed Date: 04/24/2012 9:03 PUTTY MAKER Toradol Estimated Onset Date: Unspecified ; Created By: RAVEN DELUNA LPN; Reaction Status: Active; Category: Drug ; Substance: Toradol ; Type: Allergy ; Updated By: RAVEN DELUNA LPN; Reviewed Date: 04/24/2012 9:03 PUTTY MAKER Source: [facility] [employer] Document Id: [id number] Y MAKER Miscellaneous - Barbara Mao N.P. - 04/17/2012 8:49 AM CST School or Work Excuse Document Has Been Updated School or Work Excuse Entered On: 04/17/2012 8:49 PUTTY MAKER Performed On: 04/17/2012 8:49 PUTTY MAKER by BARBARA MAO NP School or Work Excuse Date Patient Seen : 04/10/2012 PUTTY MAKER School or Work Restrictions : No Restrictions BARBARA MAO NP - 04/17/2012 8:49 PUTTY MAKER Date of Return to School/Work Without Restrictions : 04/11/2012 PUTTY MAKER BARBARA MAO NP - 04/17/2012 8:50 PUTTY MAKER Source: [facility] POWERCHART Document Id: [id number] Y MAKER Miscellaneous - Alyce Robbins - 04/14/2012 12:31 PM CST General Message Document Contains Addenda Addendum by ALYCE ROBBINS RN on 20 April 2012 15:08:53 PUTTY MAKER Thank you. Addendum by SHAWN TALLEY RN on 17 April 2012 09:33:26 PUTTY MAKER This was faxed, pt notified by message on VM Addendum by SHAWN TALLEY RN on 17 April 2012 08:38:38 PUTTY MAKER From: SHAWN TALLEY RN To: BARBARA MAO DIRECTOR PERIOPERATIVE; SHAWN TALLEY RN; Sent: 04/17/2012 08:38:38 PUTTY MAKER Subject: FW: General Message Sent to you as provider Pt requests a note that says she was seen in the ED on 04/10/12 and that she is okay to return to work. Would you be willing to write this for her? Addendum by SHAWN TALLEY RN on 15 April 2012 16:40:12 PUTTY MAKER From: SHAWN TALLEY RN To: ALYCE ROBBINS RN; Sent: 04/15/2012 16:40:12 PUTTY MAKER Subject: FW: General Message Pt requests that when this note is complete that it goes to Anna at fax [phone]. Pt requests call when done [phone]. Addendum by NICKY MONTIEL MD on 15 April 2012 12:59:58 PUTTY MAKER From: NICKY MONTIEL MD To: ALYCE ROBBINS RN; Sent: 04/15/2012 12:59:58 PUTTY MAKER Subject: RE: General Message Jen. Bill I have had no time to read that note to address this. Nicky Addendum by SHAWN TALLEY RN on 15 April 2012 10:03:04 PUTTY MAKER From: SHAWN TALLEY RN To: RESHMA LYNNE III, MD; Sent: 04/15/2012 10:03:04 PUTTY MAKER Subject: FW: General Message Sent to you as provider Pt needs note ok to return to work Was seen by Dr. Cardenas in ED 04/10/2012 for chest pain (non cardiac) Discharged home after eval.Pt isasymptomatic today. Pt requests note to include Pt seen in ED 04/10/12. OK to return to work today (04/15/12) without restrictions Addendum by ALYCE ROBBINS RN on 14 April 2012 13:28:17 PUTTY MAKER From: ALYCE ROBBINS RN To: NICKY MONTIEL MD; Sent: 04/14/2012 13:28:17 PUTTY MAKER Subject: FW: General Message Bill, please see Dr Cardenas's dictation from 04/10/2012. Let me know if this is not sufficient. Thanks. Addendum by NICKY MONTIEL MD on 14 April 2012 13:17:11 PUTTY MAKER From: NICKY MONTIEL MD To: ALYCE ROBBINS RN; Sent: 04/14/2012 13:17:11 PUTTY MAKER Subject: RE: General Message I do not know why she was seen in the ED or when she was seen. I need more information please. Nicky Alberts From: ALYCE ROBBINS RN To: NICKY MONTIEL MD; Sent: 04/14/2012 12:31:17 PUTTY MAKER Subject: General Message Seen in ED with Dr Cardenas who is not here today. Says is switching to you as PCP. Needs return to work note. Prefers include: Seen in ED but okay to return to work without restrictions. Patient will collect, needs it for work tomorrow (Wed). Can you do this for her? Source: [facility] POWERCHART Document Id: [id number] Electronically signed by Conversion, [facility] Customer Strategy Manager [id number] at 08/07/2016 7:31 PM CDT documented in this encounter Plan of Treatment Not on filedocumented as of this encounter Visit Diagnoses Not on filedocumented in this encounter Additional Health Concerns Assessment Noted Time PHQ-9 Depression Total Score: 4 04/24/2012 3:07 PM PUTTY MAKER documented as of this encounter
--- OUTSIDE RECORDS SUMMARY | 2021-10-22 11:52 | XMS_ITS | Encounter Summary ---
:1970 Author Organization [facility] Address [address] [place] [address] Care Team Providers Name Role Phone Unavailable Primary Care Provider Unavailable Encounter Details Date Type Department Care Team Description 06/07/2004 Hospital Encounter HX NO MAPPING Butch Mitchell M.D. [facility] [place], [place] [address] (Wo rk) Social History [...] or relatives? How often do you attend druze or More than 4 times per year 06/22/2019 caodaism services? Do you belong to any clubs or No 06/22/2019 organizations such as druze groups, unions, fraternal or athletic groups, or [...] of this encounter Miscellaneous Notes Miscellaneous - Conversion, Historical Provider Ser - 06/07/2004 12:00 AM TREND INVESTIGATOR [id number] Name: Laura Novak Birthdate: 1970 SSN: [id number] [facility] Allergy: Review of patient's allergies indicates no known allergies. Discharge Date: 06/07/2004 Discharge Instructions Discharged to: Home - Activities: No driving for 1 week. no intercourse for six weeks. No lifting over 10 pounds for 6 weeks. May bathe or shower. Medications: Motrin 400 or 600 mg every six hours as needed for pain, take with food. Tylenol extra strength as needed for pain, 2 every four hours. did not have these medications this A.M. Discharge Vital Signs: Temp: 98.0 degrees Fahrenheit; B/P: 112/63mHg; Pulse: 80; Respiration: 20. Pain Management: Most recent pain medication 0; . Discharge Pain Score: 0/10 . Time the discharge pain score was documented Nursing Instructions Call if heavy bleeding, severe cramps, or [id number]. Diet: regular Appointment(s): To see MD. Call for appointment with surgeon since you go to [place]. I have all of my belongings . I understand my discharge instructions. My medications were reviewed with me. Patient's Signature: Nurse Discharging this patient signature: RN Signature & Date: Lady Phan RN Date: 06/07/2004 Please see paper chart for additional discharge documentation info: (time, how & by). Source: [facility] [email or web address] Document Id: [id number] documented in this encounter Plan of Treatment Not on filedocumented as of this encounter Visit Diagnoses Not on filedocumented in this encounter
--- OUTSIDE RECORDS SUMMARY | 2021-10-22 11:52 | XMS_ITS | Encounter Summary ---
:1970 Author Organization [facility] Address [address] [place] [address] Care Team Providers Name Role Phone Unavailable Primary Care Provider Unavailable Encounter Details Date Type Department Care Team Description 02/14/2012 Hospital Encounter HX [facility] Nicky Llanes M.D. [address] [place] [address] ERNESTO Ramirez [phone] (Wo rk) Social History Tobacco Use Types [...] or relatives? How often do you attend alevism or More than 4 times per year 06/22/2019 hoahaoism services? Do you belong to any clubs or No 06/22/2019 organizations such as alevism groups, unions, fraternal or athletic groups, or [...] Sign Reading Time Taken Comments Blood Pressure 120/74 02/14/2012 1:18 PM WHEAT SHIPPER Pulse 68 02/14/2012 1:18 PM WHEAT SHIPPER Temperature - - Respiratory Rate 16 02/14/2012 1:18 PM WHEAT SHIPPER Oxygen Saturation - - Inhaled Oxygen Concentration - - Weight 84.2 kg (185 lb 10 oz) 02/14/2012 1:18 PM WHEAT SHIPPER Height 173.3 cm (5' 8.23) 02/14/2012 1:18 PM WHEAT SHIPPER Body Mass Index 28.04 02/14/2012 1:18 PM WHEAT SHIPPER documented in this encounter Progress Notes Nicky Gomez M.D. - 02/14/2012 1:11 PM CST [id number] CHIEF COMPLAINT/REASON FOR VISIT 1. Follow-up labs. 2. Right skin lesion. HISTORY OF PRESENT ILLNESS German is a 41-year-old female who recently saw her beam builder helper and had some complaints about hot flashes, feeling tired and depressed mood. He thought maybe she was going through menopause and an FSH was ordered. She comes in to follow-up on that. She had a hysterectomy at age 33 and therefore no longer has periods. She still has her ovaries. She is uncertain when her mom went through menopause but she thinks she was definitely older. The patient reports that she has had hot flashes intermittently since her hysterectomy but they are becoming more frequent. She also feels like she sweats a lot, is tired all the time and does not get good sleep. She reports that she has decreased sexual interest. She also feels like her mood is more depressed. She was started on Prozac about 1.5 years ago after she had a heart attack and she states initially it did help her mood but now for the past 3 to 4 months it has been worse. She just does not feel like herself. She filled out a PHQ9 today. The lupe henriquez's score was 15. The patient also states that she has noticed a mole in her right mu-ism in the hairline for awhile now and it seems to be getting darker and bigger. She has never had any skin lesions removed in the past. She had a lot of sun exposure when she was younger. Her father does have a history of skin canceron his back. She does not remember what type. CURRENT MEDICATIONS Reconciled. New medicine today is Prozac 40 mg by mouth daily. ALLERGIES Narcotics, Percocet, Toradol and morphine. SYSTEMS REVIEW As per history of present illness. VITAL SIGNS Temperature 36.5. Pulse is 68 beats per minute. Respiratory rate is 16 breaths per minute. Blood pressure is 120/74. Height is 173.3 cm. Weight is 84.2 kg. BMI is 28.0. PHYSICAL EXAMINATION GENERAL: The patient is alert and oriented in no acute distress. SKIN: In the patient's right mu-ism there is a well-circumscribed, minimally asymmetric, mildly raised lesion that is uniformly light brown in color measuring 6 mm x 8 mm. PSYCHIATRIC: The patient's mood appears euthymic today. Affect is mood congruent. Speech is of regular rate and rhythm. Thought process is linear and goal-directed. No suicidal ideation. LABORATORY DATA: FSH was 9.7. IMPRESSION/REPORT/PLAN 1. Major depressive disorder, moderate, recurrent. We discussed that many of the patient's symptoms could be related to worsening depression. At this time she has responded to the Prozac in the past and has tolerated it so we discussed increasing that versus switching to another medicine such as Effexor. The patient states she is willing to do either. I recommended that we first max out the Prozac dose so we will increase her to 40 mg daily. We will have her follow- up in 4 weeks' time to monitor forimprovement. We discussed that it does take about 4 to 6 weeks for this medicine to reach its full effect. 2. Suspect seborrheic keratosis to right mu-ism. At this time I think this lesion is most consistentwith a seborrheic keratosis, but again it has been getting a little bit larger. We measured it todayand we will recheck it with the patient's next visit. If it continues to grow we will remove it. 3. Hot flashes. We discussed that the patient's FSH is not in the significantly elevated phase that would make us worry about menopause but certainly she may be in the perimenopause stage. We discussedthat it is possible that the increased Prozac dose may help. Otherwise other medicine such as Effexor can be beneficial. We will continue to follow-up. Patient Education Ready to learn No apparent learning barriers were identified Learning preferences include listening Explained diagnosis and treatment plan Patient/Child/Caregiver expressed understanding of the content Nicky Manzo M.D./[facility] Electronically Signed By: NICKY MONTIEL MD On: 02/20/2012 09:48 AM Modified by and Electronically Signed by: NICKY MONTIEL MD On: 02/20/2012 09:48 AM Source: [facility] [id number] Document Id: [id number] T SHIPPER documented in this encounter Miscellaneous Notes Miscellaneous - Nicky Gomez M.D. - 02/14/2012 1:52 PM WHEAT SHIPPER Ambulatory Patient Summary [address] [address] Visit Information Name: GERMAN NOVAK [facility] Number: [id number] Current Date: 02/14/2012 13:52:23 Physicians Attending Provider: NICKY MONTIEL MD Primary Care Provider: LAVELL BUCHANAN RN, ORACLE SOA CONSULTANT Your Medications Here is a list of [...] Active Hyperlipidemia Active 02/14/12 unknown date of dx Your Upcoming Appointments Date Time Location Reason Provider No Appointments found Your Goals/Additional instructions: Source: [facility] POWERCHART Document Id: [id number] T SHIPPER Miscellaneous - Nicky Gomez M.D. - 02/14/2012 1:52 PM WHEAT SHIPPER Ambulatory Depart Summary [address] [address] Visit Information Name: GERMAN NOVAK [facility] Number: [id number] Visit Date: 02/14/2012 13:52:22 Attending Provider: NICKY MONTIEL MD Primary Care Provider: LAVELL BUCHANAN RN, ORACLE SOA CONSULTANT MURALI GERMAN STEINER has been given the following list [...] your provider for clarification. Additional Information: Source: [facility] POWERCHART Document Id: [id number] T SHIPPER Miscellaneous - Nicky Gomez M.D. - 02/14/2012 1:41 PM WHEAT SHIPPER PHQ-9 PHQ-9 Entered On: 02/14/2012 13:43 WHEAT SHIPPER Performed On: 02/14/2012 13:41 WHEAT SHIPPER by NICKY MONTIEL MD PHQ-9 Little interest or pleasure in doing things : Several days Feeling down, depressed, or hopeless : More than half the days Trouble falling or staying asleep, or sleeping too much : Nearly every day Feeling tired or having little energy : Nearly every day Poor appetite or overeating : More than half the days Feeling bad about yourself or that you are a failure : Nearly every day Trouble concentrating on things : Several days Moving or speaking slowly; restless or fidgety : Not at all Thoughts that you would be better off /hurting self : Not at all PHQ-9 Calculated Score : 15 Problems make work, home, or dealing with others : Somewhat difficult NICKY OMNTIEL MD - 02/14/2012 13:41 WHEAT SHIPPER Source: [facility] POWERCHART Document Id: [id number] T SHIPPER Miscellaneous - Damaris Medrano L.PSonjaNSonja - 02/14/2012 1:18 PM CST Adult Junior Brand Manager Intake/History Adult Junior Brand Manager Intake/History Entered On: 02/14/2012 13:23 WHEAT SHIPPER Performed On: 02/14/2012 13:18 WHEAT SHIPPER by DAMARIS MEDRANO LPN Intake Chief Complaint : Go over labs, check spot on right side of hair line Temperature Core : 36.5C(Converted to: 97.7DegF) Peripheral Pulse Rate : 68/min Respiratory Rate : 16/min Heart Rhythm : Regular Systolic Blood Pressure : 120mmHg Diastolic Blood Pressure : 74mmHg NIBP Mean : 89mmHg BP Location : Left upper extremity Blood Pressure Cuff Size : Regular Height : 173.3cm(Converted to: 5ft 8inch(es), 68.23inch(es)) Actual Weight : 84.2kg(Converted to: 185lb 10oz) Weight Source : Standing scale Dosing Weight Clinic : 84.20kg Clinic BSA : 2.01 Body Mass Index : 28.04kg/m2 DAMARIS MEDRANO LPN - 02/14/2012 13:18 WHEAT SHIPPER Subjective Pain Symptoms : No DAMARIS MEDRANO LPN - 02/14/2012 13:18 WHEAT SHIPPER Dependent Habits Tobacco Use/Currently Using : No Tobacco Use/Last 12 months : No Tobacco Use/Advised to Quit : No Exposure to Tobacco Smoke : Care provider denies smoking in home Smoking Status : Former smoker DAMARIS MEDRANO LPN - 02/14/2012 13:18 WHEAT SHIPPER Tobacco Use Grid Type : Cigarettes Last Use : 06/18/2010 DAMARIS MEDRANO LPN - 02/14/2012 13:18 WHEAT SHIPPER Alcohol Use : Yes DAMARIS MEDRANO LPN - 02/14/2012 13:18 WHEAT SHIPPER Caffeine Use Grid Caffeine Use : Current Type : Soft drinks Frequency : Daily Amount : 1 DAMARIS MEDRANO LPN - 02/14/2012 13:18 WHEAT SHIPPER Recreational Drug Use Grid Drug Use : None DAMARIS MEDRANO LPN - 02/14/2012 13:18 WHEAT SHIPPER Allergy Allergies (Active) morphine Estimated Onset Date: Unspecified ; Created By: RAVEN DELUNA LPN; Reaction Status: Active ; Category: Drug ; Substance: morphine ; Type: Allergy ; Updated By: RAVEN DELUNA LPN; Reviewed Date: 02/14/2012 13:17 WHEAT SHIPPER narcotic analgesics Estimated Onset Date: Unspecified ; Reactions: itch ; Created By: NELLIE JOHNSON RN; Reaction Status: Active ; Category: Drug ; Substance: narcotic analgesics ; Type: Sensitivity ; Updated By: NELLIE JOHNSON RN; Reviewed Date: 02/14/2012 13:17 WHEAT SHIPPER Percocet 5/325 Estimated Onset Date: Unspecified ; Created By: RAVEN DELUNA LPN; Reaction Status:Active ; Category: Drug ; Substance: Percocet 5/325 ; Type: Allergy ; Updated By: RAVEN DELUNA LPN; Reviewed Date: 02/14/2012 13:17 WHEAT SHIPPER Toradol Estimated Onset Date: Unspecified ; Created By: RAVEN DELUNA LPN; Reaction Status: Active; Category: Drug ; Substance: Toradol ; Type: Allergy ; Updated By: RAVEN DELUNA LPN; Reviewed Date: 02/14/2012 13:17 WHEAT SHIPPER Source: [facility] [employer] Document Id: [id number] T SHIPPER Miscellaneous - Damaris Medrano L.P.NSonja - 02/14/2012 1:18 PM CST Health Assessment Health Assessment Entered On: 02/14/2012 13:24 WHEAT SHIPPER Performed On: 02/14/2012 13:18 WHEAT SHIPPER by DAMARIS MEDRANO LPN Health Assessment Complete Health Assessment Complete or Modified : Annual Health Assessment Annual Health Assessment Completed : Yes DAMARIS MEDRANO LPN - 02/14/2012 13:18 WHEAT SHIPPER Nutrition Nutrition Risk Factors by History Adult : None DAMARIS MEDRANO LPN - 02/14/2012 13:18 WHEAT SHIPPER Functional Current Daily Living Assistance : None DAMARIS MEDRANO LPN - 02/14/2012 13:18 WHEAT SHIPPER Dependent Habits Tobacco Use/Currently Using : No Smoking Status : Former smoker DAMARIS MEDRANO LPN - 02/14/2012 13:18 WHEAT SHIPPER Tobacco Use Grid Type : Cigarettes Last Use : 06/18/2010 DAMARIS MEDRANO LPN - 02/14/2012 13:18 WHEAT SHIPPER Caffeine Use Grid Caffeine Use : Current Type : Soft drinks Frequency : Daily Amount : 1 DAMARIS MEDRANO LPN - 02/14/2012 13:18 WHEAT SHIPPER Psychosocial Domestic Abuse Concerns : None DAMARIS MEDRANO LPN - 02/14/2012 13:18 WHEAT SHIPPER Advance Directive Advanced Directives : No DAMARIS MEDRANO LPN - 02/14/2012 13:18 WHEAT SHIPPER Educ Needs Learning Style Preference Adult Grid Patient : None Family : None DAMARIS MEDRANO LPN - 02/14/2012 13:18 WHEAT SHIPPER Source: [employer] Document Id: [id number] T SHIPPER documented in this encounter Plan of Treatment Not on filedocumented as of this encounter Visit Diagnoses Not on filedocumented in this encounter Additional Health Concerns Assessment Noted Time PHQ-9 Depression Total Score: 15 02/14/2012 1:41 PM CS T documented as of this encounter
--- OUTSIDE RECORDS SUMMARY | 2021-10-22 11:52 | XMS_ITS | Encounter Summary ---
:1970 Author Organization [facility] Address [address] [place] [address] Care Team Providers Name Role Phone Unavailable Primary Care Provider Unavailable Encounter Details Date Type Department Care Team Description 03/11/2013 Hospital En[facility] Tiffanie Christiansen, ALVERTO, C.N.P., D.N.P. [address], [place] [phone] (Wo rk) Social History [...] or relatives? How often do you attend adventism or More than 4 times per year 06/22/2019 latter day services? Do you belong to any clubs or No 06/22/2019 organizations such as adventism groups, unions, fraternal or athletic groups, or [...] of this encounter Miscellaneous Notes Miscellaneous - Tiffanie Christiansen D.N.P., C.N.P. - 03/16/2013 7:02 AM REGULATORY LAW SPECIALIST Normal Results Letter 16 March 2013 GERMAN NOVAK [address] [facility] [id number] Dear GERMAN NOVAK, I am pleased to report that your results from the lipoprotein A were normal! (The lipoprotein A is the cholesterol test that is determined by your genetics.) Please follow up with us as we discussed during your visit or sooner if you have any concerns. If you have questions or concerns, please do not hesitate to call our office. Result Name Current Result Normal Range Lipoprotein (a)-Eligio (mg/dL) 15 03/11/2013 <=30 - Sincerely, TIFFANIE CHRISTIANSEN [address] [place] [address] Electronic Signature Electronically Signed By: TIFFANIE CHRISTIANSEN DNP, FNP On: 16 March 2013 This document has images extracted. Source: [facility] [employer]oodle Document Id: [id number] Electronically signed by Conversion, [facility] Mail Forwarding System Markup Clerk [id number] at 08/06/2016 2:46 PM CDT Miscellaneous - Tiffanie Christiansen, D.N.P., C.N.P. - 03/11/2013 10:32 AM REGULATORY LAW SPECIALIST Normal Results Letter 11 March 2013 GERMAN NOVAK [address] [facility] [id number] Dear GERMAN NOVAK, I apologize, as I was unable to reach you by phone, but I do want to talk with you at some point regarding your cholesterols. Given your history of your heart attack, we recommend your LDL (bad) cholesterol be as close to or lower than 70 as possible in order to lower your risks of future heart attacks and strokes. Your thyroid test was normal and I will send you a copy of your lipoprotein A results when they return from [place]. Please follow up with us as we discussed during your visit or soonerif you have any concerns. If you have questions or concerns, please do not hesitate to call our office. Result Name Current Result Normal Range Cholesterol (mg/dL) (H) 271 03/11/2013 0 - 200 Trig (mg/dL) (H) 171 03/11/2013 9 - 150 HDL (mg/dL) (H) 85 03/11/2013 35 - 60 LDL Calculated (mg/dL) (H) 151 03/11/2013 100 - 129 Chol/HDL Ratio 3 03/11/2013 TSH (mcIU/mL) 1.27 03/11/2013 0.30 - 5.00 Sincerely, TIFFANIE CHRISTIANSEN [address] [place] [address] Electronic Signature Electronically Signed By: TIFFANIE CHRISTIANSEN DNP, FNP On: 11 March 2013 This document has images extracted. Source: [facility] [employer] PvtCHART Document Id: [id number] Electronically signed by Conversion, [facility] Mail Forwarding System Markup Clerk [id number] at 08/06/2016 2:46 PM CDT documented in this encounter Plan of Treatment Not on filedocumented as of this encounter Procedures Procedure Name Priority Date/Time Associated Comments Diagnosis LIPID PANEL, S Routine 03/11/2013 9:24 AM Results for this REGULATORY LAW SPECIALIST procedure are i n the results section. LIPOPROTEIN (A), S/P Routine 03/11/2013 9:24 AM R esults for this REGULATORY LAW SPECIALIST procedure are i n the results section. THYROID-STIMULATING Routine 03/11/2013 9:24 AM Re sults for this HORMONE-SENSITIVE REGULATORY LAW SPECIALIST procedure are in (S-TSH) the results section. documented in this encounter Results Thyroid-Stimulating Hormone-Sensitive (s-TSH) (03/11/2013 9:24 AM REGULATORY LAW SPECIALIST) P athologist Signature TSH 1.27 0.30 - 5.00 POWERCHART (Thyrotropin) MCIUML Specimen (Source) Anatomical Collection Method Collection Time Re ceived Time Location / / Volume Laterality Blood 03/11/2013 9:24 AM REGULATORY LAW SPECIALIST Tiffanie Christiansen APRN, C.N.P., D.N.P. LAB BLOOD ADD- ON Performing Organization Address City/State/ZIP Code Phon e Number POWERCHART (ABNORMAL) Lipid Panel (03/11/2013 9:24 AM REGULATORY LAW SPECIALIST) P athologist Signature Cholesterol, 271 (H) 0 - 200 POWERCHART Total MGDL Comment: <200 mg/dL Desirable 200-239 mg/dL Borderline High >239 mg/dL High HX HDL 85 (H) 35 - 60 MGDL POWERCHART Comment: > 60 mg/dL Desirable 40 ? 60 mg/dL Low Risk <40 mg/dL Undesirable Triglycerides 171 (H) 9 - 150 MGDL POWERCHART Comment: <150 mg/dL Desirable 150-199 mg/dL Borderline High 200-499 mg/dL High > 499 Very High Calculated LDL 151 (H) 100 - 129 MGDL POWERCHART Total Cholesterol/HDL Ratio 3 PO WERCHART Specimen (Source) Anatomical Collection Method Collection Time Re ceived Time Location / / Volume Laterality Blood 03/11/2013 9:24 AM REGULATORY LAW SPECIALIST Tiffanie Christiansen APRN, C.N.P., D.N.P. LAB BLOOD ADD- ON Performing Organization Address City/State/ZIP Code Phon e Number POWERCHART Lipoprotein (a) (03/11/2013 9:24 AM REGULATORY LAW SPECIALIST) P athologist Signature Lp(a) 15 <=30 MGDL POWERCHART Cholesterol Comment: Test Performed by: [address] [address] Stabilizing Machine Operator: Babatunde elder III, M.D. Specimen (Source) Anatomical Collection Method Collection Time Re ceived Time Location / / Volume Laterality Blood 03/11/2013 9:24 AM REGULATORY LAW SPECIALIST Tiffanie Christiansen APRN, C.N.P., D.N.P. LAB BLOOD ADD- ON Performing Organization Address City/State/ZIP Code Phon e Number POWERCHART documented in this encounter Visit Diagnoses Not on filedocumented in this encounter Additional Health Concerns Assessment Noted Time PHQ-9 Depression Total Score: 10 03/11/2013 2:22 PM CS T documented as of this encounter
--- OUTSIDE RECORDS SUMMARY | 2021-10-22 11:52 | XMS_ITS | Encounter Summary ---
:1970 Author Organization [facility] Address [address] [place] [address] Care Team Providers Name Role Phone Unavailable Primary Care Provider Unavailable Encounter Details Date Type Department Care Team Description 10/19/2007 - Hospital Encounter HX [facility] [place], 10/20/2007 INPT/OBSRV M.D. [address] [place] [phone] (Wo rk) Social History Tobacco Use Types [...] or relatives? How often do you attend cheondoism or More than 4 times per year 06/22/2019 restoration services? Do you belong to any clubs or No 06/22/2019 organizations such as cheondoism groups, unions, fraternal or athletic groups, or [...]
--- OUTSIDE RECORDS SUMMARY | 2021-10-22 11:52 | XMS_ITS | Encounter Summary ---
:1970 Author Organization [facility] Address [address] [place] [address] Care Team Providers Name Role Phone Unavailable Primary Care Provider Unavailable Encounter Details Date Type Department Care Team Description 06/19/2010 - 06/21/2010 Hospital Encounter HX [facility] Social History Tobacco Use Types Packs/Day Years [...] Name Priority Date/Time Associated Diagnosis Comme nts US ABDOMEN LIMITED Routine 06/21/2010 8:31 AM Res ults for this CDT procedure are i n the results section. documented in this encounter Results US Abdomen Limited (06/21/2010 8:31 AM CDT) Anatomical Region Laterality Modality Abdomen N/A Ultrasound Specimen (Source) Anatomical Collection Method Collection Time Re ceived Time Location / / Volume Laterality 06/21/2010 8:31 AM CDT Narrative 06/21/2010 8:36 AM CDT 21-Jun-2010 08:31:00 ??Exam: US Abdomen Limited Indications: [id number] - Abd Limite d - chest pain r/t biliary - hepato- biliary ultrasound for assessment of biliary issues contributing to chest pain discomfort ORIGINAL REPORT - 21-Jun-2010 08:36:00 Limited abdominal ultrasound. The gallbladder contains anechoic bile. No cholelithiasis. No gallbladder wall thickening or pericholecystic fluid. No intrahepatic or extrahepatic biliary dilatation. Visualized portions of pancreas ar e normal. The abdominal aorta is normal in diameter. Electronically signed by: ?? Gerald Simon MD [phone] ([id number]) 21-Jun-2010 08:36 Procedure Note Naveen Simon M.D. - 06/07/2017For matting of this note might be different from the original. 21-Jun-2010 08:31:00 Exam: US Abdomen [facility] Indications: [id number] - Abd Limite d - chest pain r/t biliary - hepato- biliary ultrasound for assessment of biliary issues contributing to chest pain discomfort ORIGINAL REPORT - 21-Jun-2010 08:36:00 Limited abdominal ultrasound. The gallbladder contains anechoic bile. No cholelithiasis. No gallbladder wall thickening or pericholecystic fluid. No intrahepatic or extrahepatic biliary dilatation. Visualized portions of pancreas are normal. The abdominal aorta is normal in diameter. Electronically signed by: Gerald Simon MD [phone] ([id number]) 21-Jun-2010 08:36 Butch LOPEZ US PROCEDURES documented in this encounter Visit Diagnoses Not on filedocumented in this encounter
--- OUTSIDE RECORDS SUMMARY | 2021-10-22 11:52 | XMS_ITS | Encounter Summary ---
:1970 Author Organization [facility] Address [address] [place] [address] Care Team Providers Name Role Phone Unavailable Primary Care Provider Unavailable Encounter Details Date Type Department Care Team Description 03/11/2013 Hospital Encounter HX [facility] Tiffanie Christiansen, ALVERTO, C.N.P., D. N.P. [address] [place] [address] (Wo rk) Social History Tobacco [...] or relatives? How often do you attend nondenominational or More than 4 times per year 06/22/2019 sabianist services? Do you belong to any clubs or No 06/22/2019 organizations such as nondenominational groups, unions, fraternal or athletic groups, or [...] Sign Reading Time Taken Comments Blood Pressure 132/86 03/11/2013 2:12 PM SIGN BOARD ERECTOR Pulse 52 03/11/2013 2:12 PM SIGN BOARD ERECTOR Temperature - - Respiratory Rate 16 03/11/2013 2:12 PM SIGN BOARD ERECTOR Oxygen Saturation - - Inhaled Oxygen Concentration - - Weight 85.8 kg (189 lb 2.5 oz) 03/11/2013 2:12 PM SIGN BOARD ERECTOR Height 173 cm (5' 8.11) 03/11/2013 2:12 PM SIGN BOARD ERECTOR Body Mass Index 28.67 03/11/2013 2:12 PM SIGN BOARD ERECTOR documented in this encounter Miscellaneous Notes Miscellaneous - Tiffanie Christiansen D.N.P., C.N.P. - 03/11/2013 4:01 PM SIGN BOARD ERECTOR Ambulatory Patient Summary [id number] [place] [address] Visit Information Name: GERMAN NOVAK [facility] Number: [id number] Current Date: 03/11/2013 16:01:41 Physicians Attending Provider: TIFFANIE CHRISTIANSEN DNP, NURSE PRACTITIONER PHYSICIANS ASSISTANT Primary Care Provider: PCP, DESEAN GERMAN NOVAK [...] 1 Tablet(s), Oral, once a day FLUoxetine (Prozac 40 mg oral capsule) 1 cap, Oral, once a day multivitamin (Multiple Vitamins oral tablet) 1 Tablet(s), Oral, once a day simvastatin (simvastatin 20 mg oral tablet) 1 Tablet(s), Oral, once a day (at bedtime) for high cholesterols Stop Taking the Following Medications: Medication list as of 03-11-13 16:01 Attention: If you have any medications at home that are not on this list, DO NOT take them until youcontact your provider for clarification. Give a copy of your medication list to your primary care provider. Update your medication list any time medications or doses are changed and carry your medication list at all times in case of emergency. Your Allergies & Intolerances Substance Reaction Symptoms Category Comments morphine Drug narcotic analgesics itch Drug Toradol Drug Percocet 5/325 Drug Your Problem List Problem Status Onset Comments Common migraine Active Hyperlipidemia Active 03/11/2013 02/14/12 unknown date of dx; 04/10/12 Patient stated she does not have this diagnosis History of - myocardial infarction Active 06/18/2010 04/24/12 NSTEMI 06/2010; 01/02/[address] elevation myocardial infarction secondary to coronary vasospasm Mrs. Novak was transferred from the [facility] emergency department where he initial troponin was 0.06, and a CK-MB was 5.9. [facility] was transferred to [facility] for evaluation of her elevation in her cardiac serial biomarkers. Due to her associated symptoms of headache and shortness of breath with the chest pain, a head CT was obtained upon arrival to [facility] and did not reveal any abnormalities. [...] Upcoming Appointments Date Time Location Reason Provider 03/15/2013 14:00 [facility] yearly follow-up Joel Jones MD Attention: Contact your local Clinic if further appointment detail needed. Your Goals/Additional instructions: Source: [facility] POWERCHART Document Id: [id number] BOARD ERECTOR Miscellaneous - Tiffanie Christiansen D.N.P., C.N.P. - 03/11/2013 4:01 PM SIGN BOARD ERECTOR Ambulatory Depart Summary [id number] [place] [address] Visit Information Name: GERMAN NOVAK [facility] Number: [id number] Visit Date: 03/11/2013 16:01:38 Attending Provider: TIFFANIE CHRISTIANSEN DNP, NURSE PRACTITIONER PHYSICIANS ASSISTANT Primary Care Provider: PCP, DESEAN GERMAN NOVAK [...] 1 Tablet(s), Oral, once a day FLUoxetine (Prozac 40 mg oral capsule) 1 cap, Oral, once a day multivitamin (Multiple Vitamins oral tablet) 1 Tablet(s), Oral, once a day simvastatin (simvastatin 20 mg oral tablet) 1 Tablet(s), Oral, once a day (at bedtime) for high cholesterols Stop Taking the Following Medications: Medication list as of 03-11-13 16:01 Attention: If you have any medications at home that are not on this list, DO NOT take them until youcontact your provider for clarification. Give a copy of your medication list to your primary care provider. Update your medication list any time medications or doses are changed and carry your medication list at all times in case of emergency. Additional Information: Source: [facility] POWERCHART Document Id: [id number] BOARD ERECTOR Miscellaneous - Francisco Medrano L.P.N. - 03/11/2013 2:12 PM CST Adult Tractor Operator Battery Intake/History Adult Tractor Operator Battery Intake/History Entered On: 03/11/2013 14:18 SIGN BOARD ERECTOR Performed On: 03/11/2013 14:12 SIGN BOARD ERECTOR by FRANCISCO MEDRANO LPN Intake Chief Complaint : .Go over labs, Temperature Core : 36.4 DegC(Converted to: 97.5 DegF) (LOW) Peripheral Pulse Rate : 52 /min (LOW) Respiratory Rate : 16 /min Heart Rhythm : Regular Systolic Blood Pressure : 132 mmHg Diastolic Blood Pressure : 86 mmHg NIBP Mean : 101 mmHg BP Location : Right upper extremity Blood Pressure Cuff Size : Regular Height : 173.0 cm(Converted to: 5 ft 8 inch(es), 68.11 inch(es)) Actual Weight : 85.8 kg(Converted to: 189 lb 3 oz) Weight Source : Standing scale Dosing Weight Clinic : 85.8 kg Clinic BSA : 2.03 Body Mass Index : 28.67 kg/m2 FRANCISCO MEDRANO LPN - 03/11/2013 14:12 SIGN BOARD ERECTOR General Info Information Given By : Patient Languages : Micronesian FRANCISCO MEDRANO LPN - 03/11/2013 14:12 SIGN BOARD ERECTOR Subjective Pain Symptoms : No FRANCISCO MEDRANO LPN - 03/11/2013 14:12 SIGN BOARD ERECTOR Dependent Habits Tobacco Use/Currently Using : No Tobacco Use/Last 12 months : No Tobacco Use/Advised to Quit : No Exposure to Tobacco Smoke : Care provider denies smoking in home Smoking Status : Former smoker FRANCISCO MEDRANO LPN - 03/11/2013 14:12 SIGN BOARD ERECTOR Tobacco Use Grid Type : Cigarettes Last Use : 04/09/12 FRANCISCO MEDRANO LPN - 03/11/2013 14:12 SIGN BOARD ERECTOR Alcohol Use : Yes FRANCISCO MEDRANO LPN - 03/11/2013 14:12 SIGN BOARD ERECTOR Caffeine Use Grid Caffeine Use : Current Type : Soft drinks Frequency : Daily Amount : 1 FRANCISCO MEDRANO LPN - 03/11/2013 14:12 SIGN BOARD ERECTOR Recreational Drug Use Grid Drug Use : None MEDRANOFRANCISCO LPN - 03/11/2013 14:12 SIGN BOARD ERECTOR Source: [employer] Document Id: [id number] SIGN BOARD ERECTOR!43 BOARD ERECTOR Miscellaneous - Francisco Medrano L.PSonjaNSonja - 03/11/2013 2:12 PM CST Health Assessment Health Assessment Entered On: 03/11/2013 14:18 SIGN BOARD ERECTOR Performed On: 03/11/2013 14:12 SIGN BOARD ERECTOR by FRANCISCO MEDRANO LPN Health Assessment Complete Health Assessment Complete or Modified : Annual Health Assessment Annual Health Assessment Completed : Yes FRANCISCO MEDRANO LPN - 03/11/2013 14:12 SIGN BOARD ERECTOR Nutrition Nutrition Risk Factors by History Adult : None FRANCISCO MEDRANO LPN - 03/11/2013 14:12 SIGN BOARD ERECTOR Functional Current Daily Living Assistance : None FRANCISCO MEDRANO GEOPHYSICIST - 03/11/2013 14:12 SIGN BOARD ERECTOR Dependent Habits Tobacco Use/Currently Using : No Exposure to Tobacco Smoke : Care provider denies smoking in home Smoking Status : Former smoker FRANCISCO MEDRANO GEOPHYSICIST - 03/11/2013 14:12 SIGN BOARD ERECTOR Tobacco Use Grid Type : Cigarettes Last Use : 04/09/12 FRANCISCO MEDRANO LPN - 03/11/2013 14:12 SIGN BOARD ERECTOR Caffeine Use Grid Caffeine Use : Current Type : Soft drinks Frequency : Daily Amount : 1 FRANCISCO MEDRANO LPN - 03/11/2013 14:12 SIGN BOARD ERECTOR Recreational Drug Use Grid Drug Use : None FRANCISCO MEDRANO LPN - 03/11/2013 14:12 SIGN BOARD ERECTOR Psychosocial Domestic Abuse Concerns : None FRANCISCO MEDRANO GEOPHYSICIST - 03/11/2013 14:12 SIGN BOARD ERECTOR Advance Directive Advanced Directives : No Advance Directive Additional Information : No FRANCISCO MEDRANO LPN - 03/11/2013 14:12 SIGN BOARD ERECTOR Educ Needs Learning Style Preference Adult Grid Patient : None Family : None FRANCISCO MEDRANO LPN - 03/11/2013 14:12 SIGN BOARD ERECTOR [facility] Document Id: [id number] SIGN BOARD ERECTOR!34 BOARD ERECTOR documented in this encounter Plan of Treatment Not on filedocumented as of this encounter Visit Diagnoses Not on filedocumented in this encounter Additional Health Concerns Assessment Noted Time PHQ-9 Depression Total Score: 10 03/11/2013 2:22 PM CS T documented as of this encounter
--- OUTSIDE RECORDS SUMMARY | 2021-10-22 11:52 | XMS_ITS | Encounter Summary ---
:1970 Author Organization [facility] Address [address] [place] [address] Care Team Providers Name Role Phone Unavailable Primary Care Provider Unavailable Encounter Details Date Type Department Care Team Description 08/27/2007 Hospital Encounter HX [facility] INPT/OBSRV Lindy Palacios M.D. [address] [place] [address] (Wo rk) Social History Tobacco Use Types [...] or relatives? How often do you attend synagogue or More than 4 times per year 06/22/2019 samaritan services? Do you belong to any clubs or No 06/22/2019 organizations such as synagogue groups, unions, fraternal or athletic groups, or [...]
--- OUTSIDE RECORDS SUMMARY | 2021-10-22 11:52 | XMS_ITS | Encounter Summary ---
:1970 Author Organization [facility] Address [address] [place] [address] Care Team Providers Name Role Phone Unavailable Primary Care Provider Unavailable Encounter Details Date Type Department Care Team Description 09/08/[address] [facility] INPT/OBSRV Lindy Palacios M.D. [address] [place] [address] (Wo rk) Social History Tobacco [...] or relatives? How often do you attend shinto or More than 4 times per year 06/22/2019 tenriism services? Do you belong to any clubs or No 06/22/2019 organizations such as shinto groups, unions, fraternal or athletic groups, or [...]
--- OUTSIDE RECORDS SUMMARY | 2021-10-22 11:52 | XMS_ITS | Encounter Summary ---
:1970 Author Organization [facility] Address [address] [place] [address] Care Team Providers Name Role Phone Unavailable Primary Care Provider Unavailable Encounter Details Date Type Department Care Team Description 06/19/2010 Hospital Encounter HX NO MAPPING Social History Tobacco Use Types Packs/Day Years [...]
--- OUTSIDE RECORDS SUMMARY | 2021-10-22 11:52 | XMS_ITS | Encounter Summary ---
:1970 Author Organization [facility] Address [address] [place] [address] Care Team Providers Name Role Phone Unavailable Primary Care Provider Unavailable Encounter Details Date Type Department Care Team Description 01/13/2007 Hospital Encounter HX [facility] INPT/OBSRV Lindy Palacios M.D. [address] [place] [place] [address] (Wo rk) Social History Tobacco [...] More than 4 times per year 06/22/2019 mosque services? Do you belong to any clubs [...]
--- OUTSIDE RECORDS SUMMARY | 2021-10-22 11:52 | XMS_ITS | Encounter Summary ---
:[address] [facility] Address [address] [place] [address] Care Team Providers Name Role Phone Unavailable Primary Care Provider Unavailable Encounter Details Date Type Department Care Team Description 08/29/2010 Hospital Encounter HX [facility] Linda Martinez M.D. [address] [place] [phone] (Wo rk) Social [...] More than 4 times per year 06/22/2019 jehovah's witness services? Do you belong to any clubs [...] of this encounter Miscellaneous Notes Miscellaneous - Cj Miner L.P.N. - 08/29/2010 10:39 AM CDT Ambulatory Vitals Height Weight Ambulatory Vitals Height Weight Entered On: 08/29/2010 10:42 CDT Performed On: 08/29/2010 10:39 CDT by CJ MINER LPN Vitals/Ht/Wt Peripheral Pulse Rate: 56/min (LOW) Systolic Blood Pressure: 112mmHg Diastolic Blood Pressure: 68mmHg (Comment: Feeling Lightheaded Feeling heartburn and can't catch breath June 19 had a heart attack with update RN for further Check out [CJ MINER LPN - 08/29/2010 10:39 CDT] ) NIBP Mean: 83mmHg BP Location: Left upper extremity Heart Rhythm: Regular CJ MINER LPN - 08/29/2010 10:39 CDT Source: [facility] Specific Media Document Id: [id number] CDT!8 documented in this encounter Plan of Treatment Not on filedocumented as of this encounter Visit Diagnoses Not on filedocumented in this encounter
--- OUTSIDE RECORDS SUMMARY | 2021-10-22 11:52 | XMS_ITS | Encounter Summary ---
:1970 Author Organization [facility] Address [address] [place] [address] Care Team Providers Name Role Phone Unavailable Primary Care Provider Unavailable Encounter Details Date Type Department Care Team Description 10/28/2007 Hospital Encounter HX [facility] INPT/OBSRV [place] [address] [place] [phone] (Wo rk) Social [...]
--- OUTSIDE RECORDS SUMMARY | 2021-10-22 11:52 | XMS_ITS | Encounter Summary ---
:1970 Author Organization [facility] Address [address] [place] [address] Care Team Providers Name Role Phone Unavailable Primary Care Provider Unavailable Encounter Details Date Type Department Care Team Description 06/19/2010 Hospital Encounter HX [facility] Radha Lopez, INPT/OBSRV M.[place] [id number] [place] [id number] (Wo rk) Social [...] or relatives? How often do you attend sikh or More than 4 times per year 06/22/2019 mormon services? Do you belong to any clubs or No 06/22/2019 organizations such as sikh groups, unions, fraternal or athletic groups, or [...] on file documented as of this encounter Discharge Summaries Lea Arreola, R.N. - 06/19/2010 4:33 PM CDT Discharge Summary Discharge Summary Entered On: 06/19/2010 16:34 CDT Performed On: 06/19/2010 16:33 CDT by LEA ARREOLA RN DC Information Discharged to: Other: banner Mode of Discharge: Stretcher Discharge Transportation: Ground ambulance Accompanied By: Other: ems Report called to: transfered to [facility] er Transfer forms sent with: all emtla paers with and labs and drugs given Date/Time of Discharge: 06/19/2010 16:20 CDT LEA ARREOLA RN - 06/19/2010 16:33 CDT Source: [facility] POWER[employer] Document Id: [id number] CDT!9 Lea Arreola R.N. - 06/19/2010 4:32 PM CDT Discharge Summary Discharge Summary Entered On: 06/19/2010 16:33 CDT Performed On: 06/19/2010 16:32 CDT by LEA ARREOLA RN DC Information Date/Time of Discharge: 06/19/2010 16:20 CDT LEA ARREOLA RN - 06/19/2010 16:32 CDT Source: [facility] [employer] Document Id: [id number] CDT!3 Nellie Jerez R.N. - 06/19/2010 10:23 AM CDT ED Discharge Instructions [address] [address] Name: GERMAN NOVAK Date of : 1970 12:00 AM Visit Date: 06/19/2010 8:54 AM Address: [address] [place] [phone] Primary Care Provider: RADHA VALDERRAMA MD IMPORTANT: [facility] would like to thank you for allowing us to assist you with your healthcare needs. The following includes patient education materials and information regarding your injury/illness. Follow-Up Instructions: Patient Education Materials: Discharge Prescriptions & Home Medications: Medication/Strength Dose Route Frequency Indications/Special Instructions/Comments Misc Prescription (Misc Prescription) 1 tab Oral once a day Attention: If you have any medications at home that are not on this list, please contact your provider for clarification. Medication Reconciliation: Reconciliation is a process of identifying the most accurate list of all medications a patient is taking - including name, dosage, frequency, and route - and using this list to provide to the patient information about how to take those medications. GERMAN NOVAK or annyee has reviewed the home medications you have listed with us. Review the following instructions: You have NOT received any prescriptions and you have told us you are not currently taking any home medications You have NOT received any prescriptions. You have been provided a discharge medications list and you may CONTINUE taking your medications as previously prescribed by your regular providers. You have received the listed prescriptions and BEGIN all listed prescriptions as directed. Since you have listed no home medications, please check with your family doctor if you are taking any other medications. You have received the listed prescriptions and BEGIN all listed prescriptions as directed. Youhave been provided a discharge medications list and you may CONTINUE all home medications as previously prescribed by your regular providers. You have received the listed prescriptions and BEGIN all listed prescriptions as directed. Youhave been provided a discharge medications list. The following CHANGES have been made to your medication list; Otherwise, CONTINUE all home medications as previously prescribed by your regular provider. IMPORTANT: We examined and treated you today [...] the instructions above carefully. If you are a patient that is being discharged from the Emergency Department after receiving narcotics or other medications that may impair your judgment you may be a risk to yourself or others if you operate a motor vehicle. We recommend that you arrange a ride home with a responsible democrat. I, GERMAN NOVAK , or responsible democrat have received this information and my questions have been answered. I have discussed any challenges I see with this plan with the nurse or physician. Patient Signature or Responsible Libertarian Date/Time Provider Signature Date/Time Medication Reconciliation: Reconciliation is a process of identifying the most accurate list of all medications a patient is taking - including name, dosage, frequency, and route - and using this list to provide to the patient information about how to take those medications. GERMAN NOVAK or jeff has reviewed the home medications you have listed with us. Review the following instructions: You have NOT received any prescriptions and you have told us you are not currently taking any home medications You have NOT received any prescriptions. You have been provided a discharge medications list and you may CONTINUE taking your medications as previously prescribed by your regular providers. You have received the listed prescriptions and BEGIN all listed prescriptions as directed. Since you have listed no home medications, please check with your family doctor if you are taking any other medications. You have received the listed prescriptions and BEGIN all listed prescriptions as directed. Youhave been provided a discharge medications list and you may CONTINUE all home medications as previously prescribed by your regular providers. You have received the listed prescriptions and BEGIN all listed prescriptions as directed. Youhave been provided a discharge medications list. The following CHANGES have been made to your medication list; Otherwise, CONTINUE all home medications as previously prescribed by your regular provider. IMPORTANT: We examined and treated you today [...] the instructions above carefully. If you are a patient that is being discharged from the Emergency Department after receiving narcotics or other medications that may impair your judgment you may be a risk to yourself or others if you operate a motor vehicle. We recommend that you arrange a ride home with a responsible democrat. I, GERMAN NOVAK , or responsible democrat have received this information and my questions have been answered. I have discussed any challenges I see with this plan with the nurse or physician. Patient Signature or Responsible Libertarian Date/Time Provider Signature Date/Time Source: [employer] Document Id: [id number] Nellie Jerez R.N. - 06/19/2010 10:23 AM CDT ED Depart Summary [facility] Emergency Department Clinical Discharge Summary PERSON INFORMATION Name GERMAN NOVAK Age 39 Years 1970 12:00 AM Sex Female Language PCP RADHA VALDERRAMA MD Marital Status Visit Id Visit Reason Chest pain; chest pain Specialty Enc Type Emergency Med Service Emergency Medicine Referred by Track Group [facility] ED Discharge Tracking Id [id number] Checkout 06/19/2010 10:23 AM Checkin 06/19/2010 8:54 AM Acuity 2 -Emergent Dispo Type Admitted as Inpatient to this Hospital Arrival 06/19/2010 8:54 AM Reg Status LOS 000 01:29 Address: [address] [place] [phone] Comment: PROVIDER INFORMATION DIAGNOSIS Comment: PATIENT EDUCATION INFORMATION Instructions: Follow up: Source: [employer] Document Id: [id number] documented in this encounter H&P Notes Radha Valderrama M.D. - 06/19/2010 12:00 AM CDT [id number] IMPRESSION/REPORT/PLAN DIAGNOSTICS: An EKG is done which shows nonspecific ST segment changes. Laboratory tests are done and show a slight increase in D-dimer. The patient had a CT scan of her lungs which is negative for pulmonary embolism. EMERGENCY ROOM TREATMENT: The patient was given nitroglycerin sublingual x2 and she was also given morphine with significant relief of pain. Initial presentation pain was a 9/10. At the time the patient was transferred to the floor the pain was 2/10. The patient's hyperventilation was decreased. The findings of the laboratory work are discussed with the patient and her . PLAN: The patient is admitted for observation. We will do serial enzymes. We will also add a C-reactive protein to rule out any underlying pericarditis. The patient is given Toradol for headache. The patient also gets itchy from morphine so she was also given Zofran and Benadryl. The rest of the management will be done accordingly. CHIEF COMPLAINT/REASON FOR VISIT This 39-year-old female presented to the Emergency Room along with her complaining of chest pressure and pain radiating to the neck and a headache for about the last hour. HISTORY OF PRESENT ILLNESS She said that she could not find a comfortable position last night. She was in discomfort. She said that she has a significant amount of chest pressure. Last night around 11 o'clock she felt some tingling of her fingers and arms and then she went to sleep. The pain started at about 8 o'clock this morning when she had a significant amount of chest pressure and severe pain in her chest. She said that the pain on the pain scale was 8-9/10. She also had shortness of breath, a hard time taking a full, deep breath. She did not have any illness prior. She denies any recent fever or chills. No nausea or vomiting. She said that the mild discomfort started about a half hour before she took her Hydroxycut. She said that she takes that medication for weight loss one pill every day. She has never had any issues before. She feels the pain is radiating to both of her arms. She never had any similar symptoms before. She denies any other underlying cardiac history. She did not complain of any recent leg cramps or previous history of physical examination or deep venous thrombosis. She said that it hurts to take a deeper breath. She has a hard time taking a full deep breath. The patient is hyperventilating and appears to be in quite a bit of discomfort because of discomfort and pain. ALLERGIES No known drug allergies. SYSTEM REVIEW The patient does complain of a significant amount of headaches at the time of presentation. She said that she has a history of migraine headaches but for about the last two years she did not have any migraine headaches and to have the headache again is quite unusual. The patient denies any changes in vision. She does complain of neck stiffness and pain. No fever or chills. No hematemesis or hemoptysis. No burning urination. No abdominal pain or heartburn or belching or burping. She said that the pain is mostly in the mid sternal and anterior chest area radiating to both arms and back and also to the neck and she also has a headache. PAST MEDICAL/SURGICAL HISTORY Past medical history otherwise is fairly unremarkable. Past surgical history is significant for a hysterectomy. SOCIAL HISTORY The patient smokes about one pack of cigarettes per week. 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 She is exposed to significant allergens. She said that she denies any previous history of asthma or any significant allergies to pet dander or other allergens. The patient is and lives with her and two daughters. VITAL SIGNS Vitals are reviewed. BLOOD PRESSURE: Initial blood pressure is 148/77. OXYGEN SATURATION: 100% on room air. PHYSICAL EXAM HEENT: Pupils equal and normally reactive to light. Extraocular muscles are normal. Normal tympanic membranes bilaterally. Pharynx with mildly erythematous tonsillar pillars and uvula. NECK: No lymphadenopathy, no thyromegaly, no carotid bruits. CHEST: Slight decrease in breath sounds at the bases of both lungs. CARDIOVASCULAR: Normal S1, S2; regular rate and rhythm. No murmurs, no gallop. ABDOMEN: Soft, nontender. LEGS: No edema, no erythema. NEUROLOGIC: Cranial nerves are intact. Sensorimotor exam is unremarkable. MUSCULOSKELETAL: Unremarkable. Radha Valderrama M.D. / Electronically Signed By: RADHA VALDERRAMA MD On: 06/19/2010 04:00 Source: [facility] MHSDOLBEYNONRADSYS Document Id: [id number] documented in this encounter Nursing Notes Lea Arreola R.N. - 06/19/2010 4:27 PM CDT transfer to [facility] Pt left to [facility] after cardicac emzymes 2 draw done hepain started and nitro fusion going pt explaoned poc and family present oxygen on at 4 liters monitor was nsr left at 1620 [facility] ambulance to er Source: [facility] [employer] Document Id: [id number] Lea Arreola R.N. - 06/19/2010 10:02 AM CDT PRN Response PRN Response Entered On: 06/19/2010 10:09 CDT Performed On: 06/19/2010 10:02 CDT by LEA ARREOLA RN PRN Medication Effectiveness Evaluation PRN Medication Effective: Yes Post Medication Pain Assessment: 6 LEA ARREOLA RN - 06/19/2010 10:08 CDT Source: [employer] Document Id: [id number] CDT!4 Lea Arreola R.N. - 06/19/2010 9:38 AM CDT PRN Response PRN Response Entered On: 06/19/2010 10:08 CDT Performed On: 06/19/2010 9:38 CDT by LEA ARREOLA RN PRN Medication Effectiveness Evaluation PRN Medication Effective: Yes Post Medication Pain Assessment: 8 LEA ARREOLA RN - 06/19/2010 10:08 CDT [facility] Document Id: [id number] CDT!4 Nellie Jerez R.N. - 06/19/2010 9:31 AM CDT ED Pain Assessment ED Pain Assessment Entered On: 06/19/2010 9:31 CDT Performed On: 06/19/2010 9:31 CDT by NELLIE JEREZ RN Pain Pain Assessment Grid Pain 1 Pain 2 Location: Head Chest Laterality: Bilateral Left Intensity: 10 32 Time Pattern: Acute Acute Onset: Sudden Sudden Quality: Throbbing Throbbing Pain Radiation: No Yes Radiation Characteristics: hands Aggravating Factors: None None Alleviating Factors: None None Associated Symptoms: None None NELLIE JEREZ RN - 06/19/2010 9:31 CDT NELLIE JEREZ RN - 06/19/2010 9:31 CDT Source: [employer] Document Id: [id number] CDT!26 Nellie Jerez R.N. - 06/19/2010 9:21 AM CDT ED Primary Assessment ED Primary Assessment Entered On: 06/19/2010 9:27 CDT Performed On: 06/19/2010 9:21 CDT by NELLIE JEREZ RN Reason For Visit Diagnoses(Active) Chest pain Date: 06/19/2010 9:07 CDT ; Diagnosis Type: Reason For Visit ; Confirmation: Confirmed ; Classification: Medical ; Clinical Service: Emergency medicine ; Code: PNED ; Probability: 0 ; Diagnosis Code: [id number] Triage Chief Complaint Description: 39 year old female presents to er c/o left sided chest pain and sudden severe headache Information Given By: Patient, Spouse Accompanied By: Spouse Mode of Arrival ED: Private vehicle Track: Medical Languages: Turkmen Pain Symptoms: Yes Pain Medication Requested: No GCS Assessed: Yes NELLIE JEREZ RN - 06/19/2010 9:21 CDT Pain Pain Assessment Grid Pain 1 Pain 2 Location: Head Chest Laterality: Bilateral Left Intensity: 10 3 Time Pattern: Acute Acute Onset: Sudden Sudden Quality: Throbbing Throbbing Pain Radiation: No Yes Radiation Characteristics: hands Aggravating Factors: None None Alleviating Factors: None None Associated Symptoms: None None NELLIE JEREZ RN - 06/19/2010 9:21 CDT NELLIE JEREZ RN - 06/19/2010 9:21 CDT [place] Eye Opening Response Maame: Spontaneously Best Verbal Response [place]: Oriented Best Motor Response Maame: Obeys simple commands Maame Coma Score: 15 NELLIE JEREZ RN - 06/19/2010 9:21 CDT ED Physician Notification Time ED Physician Notification Time: 06/19/2010 8:50 CDT NELLIE JEREZ RN - 06/19/2010 9:21 CDT SAEED DCP GENERIC CODE Tracking Acuity: 2 -Emergent Tracking Group: [facility] ED NELLIE JEREZ RN - 06/19/2010 9:21 CDT Allergy Allergies (Active) narcotic analgesics Estimated Onset Date: Unspecified ; Reactions: itch ; Created By: NELLIE JEREZ RN; Reaction Status: Active ; Category: Drug ; Substance: narcotic analgesics ; Type: Sensitivity ; Updated By: NELLIE JEREZ RN; Reviewed Date: 06/19/2010 9:23 CDT ID Screen Drug Resistant Organism: No NELLIE JEREZ RN - 06/19/2010 9:21 CDT Immunizations Immunizations Current: Yes Last Tetanus: < 5 years Influenza: This year NELLIE JEREZ RN - 06/19/2010 9:21 CDT Respiratory Airway: Patent Respirations: Hyperpnea Respiratory Pattern: Regular Oxygen Start Time: 06/19/2010 8:50 CDT Oxygen Therapy: Nasal Cannula Oxygen Flow Rate: 4.000L/min NELLIE JEREZ RN - 06/19/2010 9:21 CDT Cardiovascular Heart Rhythm: Regular Skin Color: Normal for ethnicity Skin Description: Moist Skin Temperature: Cold NELLIE JEREZ RN - 06/19/2010 9:21 CDT Neurological Level of Consciousness: Alert Orientation: Oriented x 3 Characteristics of Speech: Clear NELLIE JEREZ RN - 06/19/2010 9:21 CDT ED Psychosocial Affect/Behavior: Anxious, Crying, Fearful, Restless Domestic Concerns: None NELLIE JEREZ RN - 06/19/2010 9:21 CDT Domestic Violence Screen Partner Emotional/Physical Abuse Hx: No NELLIE JEREZ RN - 06/19/2010 9:21 CDT Gastrointestinal Nutrition ED: Adequate NELLIE JEREZ RN - 06/19/2010 9:21 CDT /OB Assessment Patient Stated Symptoms: None Urine Description: Clear Urine Color: Yellow NELLIE JEREZ RN - 06/19/2010 9:21 CDT Integumentary Integumentary Patient Stated Symptoms: None NELLIE JEREZ RN - 06/19/2010 9:21 CDT Musculoskeletal Fall Prevention Education Provided: Yes NELLIE JEREZ RN - 06/19/2010 9:21 CDT Social Habits Tobacco Use Grid Tobacco Use: Within the past year Type: Cigarettes Comments (Comment: less than weekly [NELLIE JEREZ RN - 06/19/2010 9:21 CDT] ) NELLIE JEERZ RN - 06/19/2010 9:21 CDT Peripheral IV Peripheral IV Assess/Intervention Grid Peripheral IV #1 IV Activity: Start Number of Attempts: 1 Date of Insertion: 06/19/2010 CDT IV Site: Antecubital Laterality: Right Catheter Size: 18 Catheter Type: Protective Site Condition: No complications Drainage Description: None Primary Tubing Changed: 06/19/2010 CDT Dressing/ Activity: Dry Flow/ Patency: No complications IV Equipment/Supplies: IV securement device, Regular NELLIE JEREZ RN - 06/19/2010 9:21 CDT Source: Present [employer] Document Id: [id number] CDT!105 Nellie Jerez R.Chad - 06/19/2010 9:15 AM CDT ED Pain Assessment ED Pain Assessment Entered On: 06/19/2010 9:15 CDT Performed On: 06/19/2010 9:15 CDT by NELLIE JEREZ RN Pain Pain Assessment Grid Pain 1 Pain 2 Location: Head Chest Laterality: Bilateral Left Intensity: 10 3 Time Pattern: Acute Acute Onset: Sudden Sudden Quality: Throbbing Throbbing Pain Radiation: No Yes Radiation Characteristics: hands Aggravating Factors: None None Alleviating Factors: None None Associated Symptoms: None None NELLIE JEREZ RN - 06/19/2010 9:15 CDT NELLIE JEREZ RN - 06/19/2010 9:15 CDT Source: [employer] Document Id: [id number] CDT!26 Nellie Jerez RJayla - 06/19/2010 8:55 AM CDT ED Pain Assessment ED Pain Assessment Entered On: 06/19/2010 9:15 CDT Performed On: 06/19/2010 8:55 CDT by NELLIE JEREZ RN Pain Pain Assessment Grid Pain 1 Pain 2 Location: Head Chest Laterality: Bilateral Left Intensity: 10 5 Time Pattern: Acute Acute Onset: Sudden Sudden Quality: Throbbing Throbbing Pain Radiation: No Yes Radiation Characteristics: hands Aggravating Factors: None None Alleviating Factors: None None Associated Symptoms: None None NELLIE JEREZ RN - 06/19/2010 9:13 CDT NELLIE JEREZ RN - 06/19/2010 9:13 CDT Source: [employer] Document Id: [id number] CDT!26 documented in this encounter ED Notes Nellie Jerez RSonjaNSonja - 06/19/2010 10:21 AM CDT ED Treatments and Procedures ED Treatments and Procedures Entered On: 06/19/2010 10:21 CDT Performed On: 06/19/2010 10:21 CDT by NELLIE JEREZ RN Oxygen Therapy Oxygen Start Time: 06/19/2010 8:50 CDT Oxygen Therapy: Nasal Cannula Oxygen Stop Time: 06/19/2010 10:21 CDT Oxygen Flow Rate: 4.000L/min NELLIE JEREZ RN - 06/19/2010 10:21 CDT Source: [employer] Document Id: [id number] CDT!6 Radha Valderrama M.D. - 06/19/2010 9:37 AM CDT Chest pain Patient: GERMAN NOVAK - CF MRN Age: 39 years Sex: Female : 1970 Author: RADHA VALDERRAMA MD Basic Information Time seen: Immediately upon arrival. History source: Patient, family. History of Present Illness The patient presents with chest pain. The onset was 1 hours ago,patient had some numbness of hands last night and this am started having severe pain in her chest ,lot of pressure , pain scale #8 ,. andpatient was still in bed when this happened , no associated exertional activity ,took her hydroxycutthis am , patient has been taking hydroxycut for last one month , taking one pill every dfay. The course/duration of symptoms is constant. Location: Anterior central chest. Radiating pain: arm(s). bothsides of the jaw. both sides of the neck. The character of symptoms is heaviness, tightness, pressure and stabbing. The degree at onset was severe and 9 /10. . The degree at present is severe and 8 /10. . Exacerbating factors consist of breathing. The relieving factor is none. Risk factors consist of taking hydroycut one a day for weight loss. Prior episodes: none. Therapy today None. Associated symptoms: shortness of breath. Review of Systems Constitutional symptoms: Fatigue, could not rest last night , was uneasy through out the night,tossing turnig ,restless. no fever, no chills, no sweats, no weakness. Skin symptoms: no jaundice no rash, no pruritus, no abrasions. Eye symptoms: no recent vision problems no pain, no discharge. Respiratory symptoms: Shortness of breath, no cough. Cardiovascular symptoms: Chest pain. Gastrointestinal symptoms: Nausea no abdominal pain, no vomiting, no diarrhea. Genitourinary symptoms: no dysuria no hematuria. Musculoskeletal symptoms: no back pain no Muscle pain. Neurologic symptoms: Headache, dizziness,history of migraine headaches , but have not had migraine for last two years, headache today am and last night was out of ordinary , patient continue to c/o severe headache no altered level of consciousness, no numbness, no tingling, no weakness. Psychiatric symptoms: no anxiety no depression, no sleeping problems, no substance abuse. Endocrine symptoms: no polyuria no polydipsia, no polyphagia, no hyperglycemia, no hypoglycemia. Hematologic/Lymphatic symptoms: bleeding tendency negative bruising tendency negative, no petechiae,no gum bleeding, no swollen nodes. Allergy/immunologic symptoms: no seasonal allergies no food allergies, no recurrent infections, no impaired immunity. Health Status Allergies: . No active allergies recorded. Medications: . Medication Orders nitroglycerin, 0.4 mg, 1 tab(s), SL, q5min, PRN, Max of 3 doses Sodium Chloride 0.9% (Saline flush), 10 mL, IV, PRN, PRN Continuous Infusion Orders Sodium Chloride 0.9% 1,000 mL, 30 mL/hr, IV Past Medical/ Family/ Social History Medical history: Negative. Surgical history: Surgical history, No active procedure history items have been selected or recorded.hysterectomy. Family history: Not significant. 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 Physical Examination Vital signs: Per nurse's notes. General: Severe distress Skin: Warm. dry. Head: Normocephalic. atraumatic. Neck: Supple. trachea midline. no tenderness. Eye: Pupils are equal, round and reactive to light. extraocular movements are intact. normal conjunctiva. vision unchanged. Ears, nose, mouth and throat: Tympanic membranes clear. Oral mucosa moist. No pharyngeal erythema orexudate. Cardiovascular: Regular rate and rhythm. No murmur. Bruit: none. Arterial pulses: normal. Edema: none. Capillary refill: within normal limits. Respiratory: Breath sounds are equal. Respirations: tachypneic. Breath sounds: diminished, no pleural friction rub present. Retractions: none. Chest wall: No tenderness Back: Nontender. Normal range of motion. Musculoskeletal: Normal ROM. normal strength. no tenderness. no swelling. Gastrointestinal: Soft. Nontender. Non distended. Normal bowel sounds. Genitourinary Neurological: Alert and oriented to person, place, time, and situation. No focal neurological deficit observed. CN II-XII intact. normal sensory observed. normal motor observed. normal speech observed.normal coordination observed. Lymphatics: No lymphadenopathy Psychiatric: Cooperative. appropriate mood & affect. Medical Decision Making Differential Diagnosis:Atypical chest pain, dyspnea, chest pain R/o PE or MN. Electrocardiogram:The Rhythm is sinus. , The Valier is normal. , STT segments Non specific changes, T wave Normal, Ectopy None, QT interval, Previous EKG available None available. Results review:Lab results : Lab View. 06/19/2010 8:55 CDT Hgb 14.5 gm/dL Hct 41.0 % WBC 5.5 K/mcL RBC 4.32 K/mcL MCV 95.0 fL MCH 33.5 g/dL MCHC 35.3 g/dL MPV 7.1 fL RDW 11.4 % LOW Platelet 270 K/mcL Neutro % 50.9 % Lymph % 35.9 % Leon % 6.2 % Eos % 6.0 % HI Baso % 1.0 % Neutro Absolute 2.79 K/UL Lymph Absolute 1.97 K/UL Monocyte Absol 0.34 K/UL Eosino Absolute 0.33 K/UL Basophil Absol 0.05 K/UL Differential? Auto PT 9.7 second(s) INR 0.94 PTT 26.5 second(s) D-Dimer 0.56 mg/L FEU HI Sodium Lvl 135.5 mmol/L Potassium Lvl 3.7 mmol/L Chloride 101 mmol/L CO2 30.1 mmol/L HI AGAP 4 mmol/L LOW Glucose Fasting 97 mg/dL Creatinine 0.7 mg/dL EGFR >60 mL/min/1.73m2 HI EGFR >60 mL/min NA BUN 12 mg/dL BUN/Creat Ratio 17.0 Calcium Lvl 8.9 mg/dL CK-MB 5.9 ng/mL Troponin-T 0.06 ng/mL Chest X-Ray: Radiology results:Computed tomography, interpretation: negative for PE. Reexamination/ Reevaluation Re-examination/Re-evaluation:Vital signs Per nurse's notes, Course Improving, Pain status Decreased,pain level 2 out of 10, Assessment significant improvement in her symptoms. Procedure Procedure notes: patint was given 4 baby ASA, started on monitor , ekg is done , no sigificant change , given two doses of morphine , significant decrease in pain , sl nitro helped with pain. pt started vomiting , zofran was given , see all med orders Impression and Plan Diagnosis Chest pain 786.5 (Discharge, Emergency medicine, Medical) Dyspnea 786.09 (Discharge, Emergency medicine, Medical) Source: [facility] [employer] Document Id: {[id number]} documented in this encounter Miscellaneous Notes Miscellaneous - Lea Arreola R.N. - 06/19/2010 4:33 PM CDT Valuables/Belongings Valuables/Belongings Entered On: 06/19/2010 16:33 CDT Performed On: 06/19/2010 16:33 CDT by LEA ARREOLA RN Valuables/Belongings Home Medication Disposition: Sent home with family LEA ARREOLA RN - 06/19/2010 16:33 CDT Source: [employer] Document Id: [id number] CDT!3 Miscellaneous - Lea Arreola RJayla - 06/19/2010 1:35 PM CDT Adult Pain Assessment Adult Pain Assessment Entered On: 06/19/2010 13:35 CDT Performed On: 06/19/2010 13:35 CDT by LEA ARREOLA RN Pain Pain Assessment Grid Pain 1 Pain 2 Location: Head Chest Laterality: Bilateral Left Intensity: 3 1 Time Pattern: Acute Acute Onset: Sudden Sudden Quality: Throbbing Throbbing Pain Radiation: No Yes Radiation Characteristics: hands Aggravating Factors: None None Alleviating Factors: None None Associated Symptoms: None None Comment: feeling better LEA ARREOLA RN - 06/19/2010 13:35 CDT LEA ARREOLA RN - 06/19/2010 13:35 CDT Source: [employer] [facility] Document Id: [id number] CDT!27 Miscellaneous - Nellie Jerez R.N. - 06/19/2010 11:16 AM CDT Adult Admission History Adult Admission History Entered On: 06/19/2010 11:32 CDT Performed On: 06/19/2010 11:16 CDT by NELLIE JEREZ RN General Info Preferred Name: German Mode of Arrival: Cart Accompanied By: Spouse Preferred Communication Mode: Verbal Information Given By: Patient Languages: Turkmen Status: Patient denies NELLIE JEREZ RN - 06/19/2010 11:16 CDT Allergy Allergies (Active) narcotic analgesics Estimated Onset Date: Unspecified ; Reactions: itch ; Created By: NELLIE JEREZ RN; Reaction Status: Active ; Category: Drug ; Substance: narcotic analgesics ; Type: Sensitivity ; Updated By: NELLIE JEREZ RN; Reviewed Date: 06/19/2010 9:23 CDT Problem List/Diagnoses Problems(Active) Common migraine Name of Problem: Common migraine ; Onset Date: Unknown ; Recorder: NELLIE JEREZ RN;Confirmation: Confirmed ; Classification: Nursing ; Code: 738854 ; Contributor System: [employer] ; Last Updated: 06/18/2010 19:00 CDT ; Life Cycle Date: Unknown ; Life Cycle Status: Active ; Vocabulary: SNOMED CT Diagnoses(Active) Chest pain Date: 06/19/2010 9:07 CDT ; Diagnosis Type: Reason For Visit ; Confirmation: Confirmed ; Classification: Medical ; Clinical Service: Emergency medicine ; Code: PNED ; Probability: 0 ; Diagnosis Code: [id number] Chest pain 786.5 Date: 06/19/2010 11:02 CDT ; Diagnosis Type: Discharge ; Confirmation: Confirmed ; Classification: Medical ; Clinical Service: Emergency medicine ; Code: ICD-9-CM ; Probability: 0 ; Diagnosis Code: 786.50 Dyspnea 786.09 Date: 06/19/2010 11:02 CDT ; Diagnosis Type: Discharge ; Confirmation: Confirmed ; Classification: Medical ; Clinical Service: Emergency medicine ; Code: ICD-9-CM ; Probability: 0 ; Diagnosis Code: 786.09 Anesth/Transfusion Anesthesia/Transfusions: Unknown NELLIE JEREZ RN - 06/19/2010 11:16 CDT ID Screen Drug Resistant Organism: No ALEXNELLIE Roxanna RN - 06/19/2010 11:16 CDT Nutrition Nutrition Risk Factors by History Adult: None Home Diet: Regular Feeding Ability: Complete independence Eating Difficulties: None Appetite: Good NELLIE JEREZ RN - 06/19/2010 11:16 CDT Home Environment Current Daily Living Assistance: None Living Situation: Home with family care Mobility Assistance Prior to Admission: Independent NELLIE JEREZ RN - 06/19/2010 11:16 CDT Dependent Habits Tobacco Use/Currently Using: Yes NELLIE JEREZ RN - 06/19/2010 11:16 CDT Tobacco Use Grid Type: Cigarettes Last Use: 06/18/2010 Comments (Comment: approx weekly [NELLIE JEREZ RN - 06/19/2010 11:16 CDT] ) NELLIE JEREZ RN - 06/19/2010 11:16 CDT Alcohol Use: Yes NELLIE JEREZ RN - 06/19/2010 11:16 CDT AUDIT Tool How Often Do You Have A Drink: 2 to 3 times a week How Many Drinks in a Day When Drinkin or 4 Six or More Drinks On One Occassion: Weekly Audit Phase 1 Score: 7 Not Able To Stop Drinking Once Started: Never Failed To Do What Is Normally Expected: Never Needed A First Drink In The Morning: Never Feeling of Guilt/Remorse After Drinking: Never Unable to Remember What Happened: Never Has Your Drinking Caused Injury: No Anyone Concerned About Your Drinking: No AUDIT Phase 2 Score: 0 AUDIT Score: 7 NELLIE JEREZ RN - 06/19/2010 11:16 CDT Psychosocial Adult Domestic Concerns: None NELLIE JEREZ RN - 06/19/2010 11:16 CDT Advance Directive Advanced Directives: No NELLIE JEREZ RN - 06/19/2010 11:16 CDT Educ Needs Learning Style Preference Adult Grid Patient: None Family: None NELLIE JEREZ RN - 06/19/2010 11:16 CDT DC Needs Anticipated Discharge Date: 06/20/2010 CDT Discharge To, Anticipated: Home with family care NELLIE JEREZ RN - 06/19/2010 11:16 CDT Health History I Ocular Past Medical History Grid Cataract: Grandparents Glaucoma: Grandparents NELLIE JEREZ RN - 06/19/2010 11:16 CDT HEENT Peds Health History Grid Ear Infections: Self NELLIE JEREZ RN - 06/19/2010 11:16 CDT Cardiovascular Past Medical History Grid Chest Pain/Angina: Self, Father Dizziness: Self Heart Attack: Father Heart Disease: Father, Grandparents Heart Failure: Father High Blood Pressure: Father, Sibling High Cholesterol: Sibling, Father Irregular Heartbeat/Palpitations: pt states she had a heart murmur when younger NELLIE JEREZ RN - 06/19/2010 11:16 CDT Respiratory Past Medical History Grid Frequent Bronchitis: Grandparents Emphysema: Grandparents NELLIE JEREZ RN - 06/19/2010 11:16 CDT Gastrointestinal Past Medical Hx Grid Heartburn: Children NELLIE JEREZ RN - 06/19/2010 11:16 CDT Health History II Musculoskeletal Past Medical Hx Grid Arthritis: Grandparents, Mother Osteoporosis: Mother, Grandparents NELLIE JEREZ RN - 06/19/2010 11:16 CDT Endocrine/Metabolic Past Med Hx Grid Thyroid Disease: Mother, Sibling NELLIE JEREZ RN - 06/19/2010 11:16 CDT Neurological Past Medical History Grid Frequent Headaches: Self, Mother, Sibling Migraines: Self, Mother, Sibling Numbness/Tingling: Self Stroke: Grandparents NELLIE JEREZ RN - 06/19/2010 11:16 CDT [facility] Document Id: [id number] CDT!86 Miscellaneous - Nellie Jerez R.N. - 06/19/2010 11:12 AM CDT Adult Admission Assessment Adult Admission Assessment Entered On: 06/19/2010 11:16 CDT Performed On: 06/19/2010 11:12 CDT by NELLIE JEREZ RN Respiratory Respiratory Patient Stated Symptoms: None Respirations: Unlabored Respiratory Pattern: Regular All Lobes Breath Sounds: Clear Cough: None Sputum Amount: None NELLIE JEREZ RN 06/19/2010 11:12 CDT Cardiovascular CV Patient Stated Symptoms: Other: pressure Heart Rhythm: Regular Nail Bed Color: [place] Capillary Refill: Less than 2 seconds Edema: None Fredrick's Sign: Negative Pacer: No NELLIE JEREZ - 06/19/2010 11:12 CDT Pulses Grid Radial Pulse, Left: 2+ Normal Radial Pulse, Right: 2+ Normal NELLIE JEREZ - 06/19/2010 11:12 CDT Skin Color: Normal for ethnicity Skin Description: Moist Skin Temperature: Warm Activity Tolerance: Without distress NELLIE JEREZ - 06/19/2010 11:12 CDT Neurological Neuro Patient Stated Symptoms: None Orientation: Oriented x 3 Level of Consciousness: Alert Gait: Steady NELLIE JEREZ - 06/19/2010 11:12 CDT Maame Coma Eye Opening Response Maame: Spontaneously Best Verbal Response [place]: Oriented Best Motor Response Maame: Obeys simple commands Maame Coma Score: 15 NELLIE JEREZ - 06/19/2010 11:12 CDT Psycho/Emotional Pain Symptoms: Yes NELLIE JEREZ - 06/19/2010 11:12 CDT FLACC Face FLACC: No particular expression or smile Legs FLACC: Normal position or relaxed Activity FLACC: Lying quietly, normal position, moves easily Cry FLACC: No cry, awake or asleep Consolabillity FLACC: Content, relaxed FLACC Pain Scale Score: 0 NELLIE JEREZ - 06/19/2010 11:12 CDT Pain Pain Assessment Grid Pain 1 Pain 2 Location: Head Chest Laterality: Bilateral Left Intensity: 3 1 Time Pattern: Acute Acute Onset: Sudden Sudden Quality: Throbbing Throbbing Pain Radiation: No Yes Radiation Characteristics: hands Aggravating Factors: None None Alleviating Factors: None None Associated Symptoms: None None NELLIE JEREZ - 06/19/2010 11:12 CDT NELLIE JEREZ - 06/19/2010 11:12 CDT Gastrointestinal GI Patient Stated Symptoms: None Abdomen Description: Flat Abdomen Palpation: Soft Bowel Movement Last Date: 06/19/2010 CDT Bowel Sounds All Quadrants: Present NELLIE JEREZ - 06/19/2010 11:12 CDT Genitourinary Patient Stated Symptoms: None NELLIE JEREZ - 06/19/2010 11:12 CDT Integumentary Integumentary Patient Stated Symptoms: None NELLIE JEREZ RN - 06/19/2010 11:12 CDT Horace Sensory Perception Horace: No impairment Moisture Horace: Rarely moist Activity Horace: Walks frequently Mobility Horace: No limitations Nutrition Horace: Excellent NELLIE JEREZ RN - 06/19/2010 11:12 CDT Musculoskeletal Musculoskeletal Patient Stated Symptoms: None NELLIE JEREZ RN - 06/19/2010 11:12 CDT Peripheral IV Peripheral IV Assess/Intervention Grid Peripheral IV #1 IV Activity: Start Number of Attempts: 1 Date of Insertion: 06/19/2010 CDT IV Site: Antecubital Laterality: Right Catheter Size: 18 Catheter Type: Protective Site Condition: No complications Drainage Description: None Primary Tubing Changed: 06/19/2010 CDT Dressing/ Activity: Dry Flow/ Patency: No complications IV Equipment/Supplies: IV securement device, Regular NELLIE JEREZ RN - 06/19/2010 11:12 CDT Hendrich II Fall Risk Confusion/Disorientation Hendrich: No Depression Fall Risk Hendrich: No Altered Elimination Fall Risk Hendrich: No Dizziness/Vertigo Fall Risk Hendrich: No Gender, Male Fall Risk Hendrich: No Prescribed Antiepileptics Hendrich: No Prescribed Benzodiazepines Hendrich: Yes Rising From Chair Fall Risk Hendrich: Pushes up, successful in one attempt Fall Risk Score Hendrich II: 2 NELLIE JEREZ RN - 06/19/2010 11:12 CDT Source: [employer] Document Id: [id number] CDT!111 Miscellaneous - Nellie Jerez RJayla - 06/19/2010 11:10 AM CDT Adult Activities of Daily Living Adult Activities of Daily Living Entered On: 06/19/2010 11:10 CDT Performed On: 06/19/2010 11:10 CDT by NELLIE JEREZ RN ADLs I Activity Status ADL: Ambulating in room, Up with assistance Activity Assistance: Independent Range of Motion LUE: Active Range of Motion RUE: Active Range of Motion LLE: Active Range of Motion RLE: Active Ambulation Patient Effort: Good NELLIE JEREZ RN - 06/19/2010 11:10 CDT ADLs II Standard Safety: Bed in low position, Call device within reach, ID band check, Non-Slip footwear, Upper/Half-length side-rails up NELLIE JEREZ RN - 06/19/2010 11:10 CDT Source: [employer] [facility] Document Id: [id number] CDT!11 Miscellaneous - Lea Arreola R.N. - 06/19/2010 10:11 AM CDT Valuables/Belongings Valuables/Belongings Entered On: 06/19/2010 10:11 CDT Performed On: 06/19/2010 10:11 CDT by LEA ARREOLA RN Valuables/Belongings Home Medication Disposition: Sent home with family LEA ARREOLA RN - 06/19/2010 10:11 CDT Source: [employer] [facility] Document Id: [id number] CDT!3 Miscellaneous - Nellie Jerez RJayla - 06/19/2010 10:03 AM CDT Basic Admission Information Basic Admission Information Entered On: 06/19/2010 11:34 CDT Performed On: 06/19/2010 10:03 CDT by NELLIE JEREZ RN Vital Signs Temperature Core: 36.4C(Converted to: 97.5DegF) (LOW) Peripheral Pulse Rate: 64/min Respiratory Rate: 16/min Systolic Blood Pressure: 154mmHg (HI) Diastolic Blood Pressure: 89mmHg NIBP Mean: 111mmHg BP Location: Left upper extremity SpO2: 100% Oxygen Flow Rate: 2.000L/min Oxygen Therapy: Nasal Cannula NELLIE JEREZ RN - 06/19/2010 11:32 CDT Allergy Rule Allergies (Active) narcotic analgesics Estimated Onset Date: Unspecified ; Reactions: itch ; Created By: NELLIE JEREZ RN; Reaction Status: Active ; Category: Drug ; Substance: narcotic analgesics ; Type: Sensitivity ; Updated By: NELLIE JEREZ RN; Reviewed Date: 06/19/2010 9:23 CDT Valuables/Belongings Home Medication Disposition: Sent home with family NELLIE JEREZ RN - 06/19/2010 11:32 CDT Source: [employer] Document Id: [id number] CDT!14 Miscellaneous - Lea Arreola RJayla - 06/19/2010 8:54 AM CDT Facility Charge Ticket Facility Charge Ticket Entered On: 06/19/2010 10:11 CDT Performed On: 06/19/2010 8:54 CDT by LEA ARREOLA RN Facility Charge TVL Level for Facility Charge Ticket: Level 5 Mode of Arrival ED: Private vehicle [facility] Mode of Arrival Interpreted: Standard [facility] Process Management: None [facility] Order Management: EKG, RT, Ancillary Services, CT/MRI/Ultrasound, Xray - plain films, Lab tests 30 Minutes Critical Care: No [facility] Nursing Assessment: Triage and 1-2 nursing assessments [facility] Disposition: Admit - Observation, Inpatient, or other Outpatient [facility] Total Points with Diagnosis Control: 20 [facility] Visit Level: 54072 Level 5 LEA ARREOLA RN - 06/19/2010 10:11 CDT Source: [employer] Document Id: [id number] CDT!12 documented in this encounter Plan of Treatment Not on filedocumented as of this encounter Visit Diagnoses Not on filedocumented in this encounter
--- OUTSIDE RECORDS SUMMARY | 2021-10-22 11:52 | XMS_ITS | Encounter Summary ---
:1970 Author Organization [facility] Address [address] [place] [address] Care Team Providers Name Role Phone Unavailable Primary Care Provider Unavailable Encounter Details Date Type Department Care Team Description 04/10/2012 Hospital Encounter HX [facility] ED Chris Cardenas M.D. [id number] [place] [address] ERNESTO Ramirez [phone] (Wo rk) Social History Tobacco Use Types [...] or relatives? How often do you attend restorationism or More than 4 times per year 06/22/2019 hinduism services? Do you belong to any clubs or No 06/22/2019 organizations such as restorationism groups, unions, fraternal or athletic groups, or [...] Sign Reading Time Taken Comments Blood Pressure 127/86 04/10/2012 1:21 PM PHARMACY STUDENT Pulse - - Temperature - - Respiratory Rate 20 04/10/2012 1:21 PM PHARMACY STUDENT Oxygen Saturation - - Inhaled Oxygen Concentration - - Weight 92.8 kg (204 lb 9.4 oz) 04/10/2012 10:00 AM PHARMACY STUDENT Height 173 cm (5' 8.11) 04/10/2012 10:00 AM PHARMACY STUDENT Body Mass Index 31.01 04/10/2012 10:00 AM PHARMACY STUDENT documented in this encounter Discharge Summaries Valarie Centeno R.N. - 04/10/2012 1:34 PM CST ED Discharge Instructions [address] [address] Name: GERMAN NOVAK Date of : 1970 12:00 AM Visit Date: 04/10/2012 9:53 AM [facility] Number: [id number] Address: [address] [place] [phone] Primary Care Provider: LAVELL BUCHANAN RN, AIRPLANE PATROLLER IMPORTANT: [facility] in [place] would like to thank you for allowing us to assist you with your healthcare needs. The following includes patient education materials and informationregarding your injury/illness. Chief Complaint: Chest pain; HEART Follow-Up Instructions: With: Address: When: LAVELL BUCHANAN [address] [place] [address] Business (1) Within As Needed Comments: Patient Education Materials: [id number] CHEST PAIN, NONCARDIAC Based on your visit today, the exact cause of your chest pain is not certain. Your condition does not seem serious and your pain does not appear to be coming from your heart. However, sometimes the signs of a serious problem take more time to appear. Therefore, please watch for the warning signs listed below. HOME CARE: 1. Rest today and avoid strenuous activity. 2. Take any prescribed medicine as directed. FOLLOW UP with your doctor or this facility as instructed or if you do not start to feel better within 24 hours. [NOTE: If an X-ray or EKG (cardiogram) was made, it will be reviewed by another specialist. You willbe notified of any new findings that may affect your care.] GET PROMPT MEDICAL ATTENTION if any of the following occur: ?? A change in the type of pain: if it feels different, becomes more severe, lasts longer, or beginsto spread into your shoulder, arm, neck, jaw or back ?? Shortness of breath or increased pain with breathing ?? Cough with dark colored sputum (phlegm) or blood ?? Weakness, dizziness, or fainting ?? Fever over 100.0?? F (37.8?? C) Swelling, pain or redness in one leg ?? [id number] [employer], [address] [place] [address], [place] [address]. All rights reserved. This information is not intended as a substitute for professional medical care. Always follow your healthcare professional's instructions. ED Tests and Procedures: Order Status rdOxygen - ER Ordered Basic Metabolic Panel Completed CBC (includes Auto Differential) Completed CKMB Completed Creatine Kinase Completed PT/INR Completed PTT Completed Troponin T Completed XR Chest 1 view portable Completed Oxygen - ER Ordered Thyroid Stimulating Hormone Canceled Automated Diff-5 Part Completed Discharge Prescriptions & Home Medications: Medication/Strength Dose Route Frequency Indications/Special Instructions/Comments fluoxetine (Prozac 40 mg oral capsule) 40 mg Oral once a day *ergocalciferol (Vitamin D 400 iu oral tablet) 400 IntU Oral once a day *ascorbic acid (Vitamin C 500 mg oral tablet) 500 mg Oral once a day aspirin (aspirin 81 mg oral tablet) 1 tab(s) Oral once a day *multivitamin (Multiple Vitamins oral tablet) 1 tab(s) Oral once a day * You have let us know that you are not taking this medication as listed. Please talk with your primary care provider or the health care provider who prescribed the medication as soon as possible. Comment: Attention: If you have any medications at home not on this list, DO NOT take them until you contact your provider for clarification. Medication Reconciliation: [...] arrange a ride home with a responsible republican. IMURALI WENDY SUE , or responsible republican have received this information and my questions have been answered. I have discussed any challenges I see with this plan with the nurse or physician. Patient Signature or Responsible Democrat/Relationship Date Time Provider Signature Date Time Medication Reconciliation: Reconciliation is a process of [...] arrange a ride home with a responsible republican. IMURALI WENDY SUE , or responsible republican have received this information and my questions have been answered. I have discussed any challenges I see with this plan with the nurse or physician. Patient Signature or Responsible Democrat/Relationship Date Time Provider Signature Date Time This document has images extracted. Please consider using [employer] for all your patient education needs. Source: [employer] Document Id: [id number] MACY STUDENT Valarie Centeno R.N. - 04/10/2012 1:34 PM CST ED Depart Summary [facility] Emergency Department Clinical Discharge Summary PERSON INFORMATION Name GERMAN NOVAK Age 41 Years 1970 12:00 AM Sex Female Language Citizen Of [place] PCP LAVELL BUCHANAN RN, AIRPLANE PATROLLER Marital Status Visit Id Visit Reason Chest pain; HEART Specialty Enc Type Emergency Med Service Emergency Medicine Referred by Track Group [facility] ED Discharge 04/10/2012 1:32 PM Tracking Id [id number] Checkout 04/10/2012 1:32 PM Checkin 04/10/2012 9:53 AM Acuity 2 -Emergent Dispo Type * Discharged to Home or Self Care Arrival 04/10/2012 9:53 AM Reg Status Complete LOS 000 03:39 Address: [address] [place] [phone] Comment: PROVIDER INFORMATION Provider Role Provider Contact Time DIAGNOSIS Precordial chest pain 786.51 Comment: PATIENT EDUCATION INFORMATION Instructions: CHEST PAIN, NonCardiac Follow up: With: Address: When: LAVELL BUCHANAN [address] [place] [id number] [facility] () Within As Needed Comments: Source: [facility] [employer] Document Id: [id number] MACY STUDENT documented in this encounter Nursing Notes Valarie Centeno R.N. - 04/10/2012 1:20 PM CST ED Pain Assessment ED Pain Assessment Entered On: 04/10/2012 13:20 PHARMACY STUDENT Performed On: 04/10/2012 13:20 PHARMACY STUDENT by VALARIE CENTENO RN Pain Assessment Pain Symptoms : No VALARIE CENTENO RN - 04/10/2012 13:20 PHARMACY STUDENT Source: [facility] [employer]ART Document Id: [id number] MACY STUDENT Valarie Centeno R.N. - 04/10/2012 10:40 AM CST PRN Response PRN Response Entered On: 04/10/2012 10:48 PHARMACY STUDENT Performed On: 04/10/2012 10:40 PHARMACY STUDENT by VALARIE CENTENO RN PRN Medication Effectiveness Evaluation PRN Medication Effective : Yes Post Medication Pain Assessment : 0 VALARIE CENTENO RN - 04/10/2012 10:48 PHARMACY STUDENT Source: [facility] POWERCHART Document Id: [id number] MACY STUDENT William Arredondo R.N. - 04/10/2012 10:20 AM CST ED Primary Assessment ED Primary Assessment Entered On: 04/10/2012 10:30 PHARMACY STUDENT Performed On: 04/10/2012 10:20 PHARMACY STUDENT by WILLIAM ARREDONDO RN Reason For Visit Problems(Active) Common migraine Name of Problem: Common migraine ; Onset Date: Unknown ; Recorder: NELLIE JOHNSON RN;Confirmation: Confirmed ; Classification: Nursing ; Code: 995114 ; Contributor System: [employer] ; Last Updated: 06/19/2010 11:18 CDT ; Life Cycle Status: Active ; Vocabulary: SNOMED CT Hyperlipidemia Name of Problem: Hyperlipidemia ; Recorder: MAXIME VARGHESE RN; Confirmation: Confirmed ; Classification: Medical ; Code: 046893 ; Contributor System: [employer] ; Last Updated: 02/14/2012 13:41 PHARMACY STUDENT ; Life Cycle Date: 02/11/2012 ; Life Cycle Status: Active ; Responsible Provider: MAXIME VARGHESE RN; Vocabulary: SNOMED CT ; Comments: 02/14/2012 13:17 - FRANCISCO COLINDRES LPN unknown date of dx Diagnoses(Active) Chest pain Date: 04/10/2012 ; Diagnosis Type: Reason For Visit ; Confirmation: Complaint of ; Clinical Dx: Chest pain ; Classification: Medical ; Clinical Service: Emergency medicine ; Code: PNED ; Probability: 0 ; Diagnosis Code: [id number] Triage Chief Complaint Description : see triage Information Given By : Patient, Significant other Accompanied By : Significant other Mode of Arrival ED : Private vehicle Track : Medical Languages : Citizen Of [place] Patient Informed of Triage Location : Emergency department Vital Signs Assessed : Yes GCS Assessed : Yes WILLIAM ARREDONDO RN - 04/10/2012 10:20 PHARMACY STUDENT Vital Signs Temperature Core : 37.6C(Converted to: 99.7DegF) Apical Heart Rate : 78/min Respiratory Rate : 20/min Systolic Blood Pressure : 132mmHg Diastolic Blood Pressure : 93mmHg (>HHI) NIBP Mean : 106mmHg BP Location : Left upper extremity SpO2 : 99% Oxygen Saturation Monitoring Frequency : Continuous Oxygen Flow Rate : 2L/min Oxygen Therapy : Nasal Cannula WILLIAM ARREDONDO RN - 04/10/2012 10:20 PHARMACY STUDENT [place] Coma Eye Opening Response Maame : Spontaneously Best Verbal Response [place] : Oriented Best Motor Response Maame : Obeys simple commands Maame Coma Score : 15 WILLIAM ARREDONDO RN - 04/10/2012 10:20 PHARMACY STUDENT Pain Assessment Pain Symptoms : No WILLIAM ARREDONDO RN - 04/10/2012 10:20 PHARMACY STUDENT ED Physician Notification Time ED Physician Notification Time : 04/10/2012 10:00 PHARMACY STUDENT WILLIAM ARREDONDO RN - 04/10/2012 10:20 PHARMACY STUDENT SAEED SAEED Level 1 : No SAEED Level 2 : No SAEED Level 3 : Many Vital Signs SAEED : Danger zone (HR > 100, RR > 20, SaO2 < 92%) WILLIAM ARREDONDO RN - 04/10/2012 10:20 PHARMACY STUDENT DCP GENERIC CODE Tracking Acuity : 2 -Emergent Tracking Group : [facility] WILLIAM ARREDONDO RN - 04/10/2012 10:20 PHARMACY STUDENT Allergy Latex Reaction : No WILLIAM ARREDONDO RN - 04/10/2012 10:20 PHARMACY STUDENT Allergies (Active) morphine Estimated Onset Date: Unspecified ; Created By: RAVEN DELUNA LPN; Reaction Status: Active ; Category: Drug ; Substance: morphine ; Type: Allergy ; Updated By: RAVEN DELUNA LPN; Reviewed Date: 04/10/2012 10:21 PHARMACY STUDENT narcotic analgesics Estimated Onset Date: Unspecified ; Reactions: itch ; Created By: NELLIE JOHNSON RN; Reaction Status: Active ; Category: Drug ; Substance: narcotic analgesics ; Type: Sensitivity ; Updated By: NELLIE JOHNSON RN; Reviewed Date: 04/10/2012 10:21 PHARMACY STUDENT Percocet 5/325 Estimated Onset Date: Unspecified ; Created By: RAVEN DELUNA LPN; Reaction Status:Active ; Category: Drug ; Substance: Percocet 5/325 ; Type: Allergy ; Updated By: RAVEN DELUNA LPN; Reviewed Date: 04/10/2012 10:21 PHARMACY STUDENT Toradol Estimated Onset Date: Unspecified ; Created By: RAVEN DELUNA LPN; Reaction Status: Active; Category: Drug ; Substance: Toradol ; Type: Allergy ; Updated By: RAVEN DELUNA LPN; Reviewed Date: 04/10/2012 10:21 PHARMACY STUDENT ID Screen Drug Resistant Organism : No WILLIAM ARREDONDO RN - 04/10/2012 10:20 PHARMACY STUDENT Immunizations Immunizations Current : Yes Last Tetanus : < 5 years Pneumovac : None Influenza : Last year WILLIAM ARREDONDO RN - 04/10/2012 10:20 PHARMACY STUDENT Respiratory Airway : Patent Respirations : Unlabored Respiratory Pattern : Regular Oxygen Start Time : 04/10/2012 10:15 PHARMACY STUDENT Oxygen Therapy : Nasal Cannula Oxygen Flow Rate : 2L/min Respiratory Detailed Assessment : Yes WILLIAM ARREDONDO RN - 04/10/2012 10:20 PHARMACY STUDENT Resp Detailed Respiratory Patient Stated Symptoms : Shortness of breath Distress : None Cough : None Sputum Amount : None WILLIAM ARREDONDO RN - 04/10/2012 10:20 PHARMACY STUDENT Breath Sounds Assessment Grid BUL : Clear BLL : Diminished WILLIAM ARREDONDO RN - 04/10/2012 10:20 PHARMACY STUDENT Cardiovascular Heart Rhythm : Regular Skin Color : Normal for ethnicity Skin Description : Dry Skin Temperature : Warm Cardiovascular Detailed Assessment : Yes Monitoring Lead : I Monitoring Lead Security Shift Manager : Initiated WILLIAM ARREDONDO RN - 04/10/2012 10:20 PHARMACY STUDENT CV Detailed CV Patient Stated Symptoms : Palpitations Nail Bed Color : [place] Capillary Refill : Less than 2 seconds Heart Sounds ICU : S1S2 Cardiac Rhythm : Sinus rhythm WILLIAM ARREDONDO RN - 04/10/2012 10:20 PHARMACY STUDENT Edema Detailed Grid Pretibial Edema Bilateral : None WILLIAM ARREDONDO RN - 04/10/2012 10:20 PHARMACY STUDENT Radial Pulse, Left : 2+ Normal Radial Pulse, Right : 2+ Normal WILLIAM ARREDONDO RN - 04/10/2012 10:20 PHARMACY STUDENT Neurological Last Well Time Known : Not applicable Level of Consciousness : Alert Orientation : Oriented x 3 Characteristics of Speech : Appropriate for age Neuro Patient Stated Symptoms : None Gait : Steady Swallowing Difficulty/Aspiration Risk : None WILLIAM ARREDONDO RN - 04/10/2012 10:20 PHARMACY STUDENT ED Psychosocial Affect/Behavior : Calm, Cooperative, Appropriate Domestic Abuse Concerns : None Emotional Support Available : Yes WILLIAM ARREDONDO RN - 04/10/2012 10:20 PHARMACY STUDENT Gastrointestinal Nutrition ED : Adequate WILLIAM ARREDONDO RN - 04/10/2012 10:20 PHARMACY STUDENT /OB Assessment Patient Stated Symptoms : None WILLIAM ARREDONDO RN - 04/10/2012 10:20 PHARMACY STUDENT Integumentary Integumentary Patient Stated Symptoms : None Skin Turgor : Elastic Skin Integrity : Intact Mucous Membrane Color : [place] Mucous Membrane Description : Moist Skin Color : Normal for ethnicity Skin Description : Dry Skin Temperature : Warm WILLIAM ARREDONDO RN - 04/10/2012 10:20 PHARMACY STUDENT Musculoskeletal Fall Prevention Education Provided : WILLIAM COSBY RN - 04/10/2012 10:20 PHARMACY STUDENT Social Habits Tobacco Use/Currently Using : Yes Exposure to Tobacco Smoke : Care provider denies smoking in home Smoking Status : Current some day smoker WILLIAM ARREDONDO RN - 04/10/2012 10:20 PHARMACY STUDENT Tobacco Use Grid Type : Cigarettes Last Use : Last PM WILLIAM ARREDONDO RN - 04/10/2012 10:20 PHARMACY STUDENT Alcohol Use Grid Alcohol Use : Yes Last Use : Last PM WILLIAM ARREDONDO RN - 04/10/2012 10:20 PHARMACY STUDENT Recreational Drug Use Grid Drug Use : None WILLIAM ARREDONDO RN - 04/10/2012 10:20 PHARMACY STUDENT Peripheral IV Peripheral IV Assess/Intervention Grid Peripheral IV #1 Peripheral IV #2 IV Activity : Start Start Number of Attempts : 1 1 Date of Insertion : 04/10/2012 PHARMACY STUDENT 04/10/2012 PHARMACY STUDENT IV Site : Antecubital Antecubital Laterality : Left Right Catheter Size : 18 18 Catheter Type : Over the needle Over the needle Site Condition : No complications No complications Drainage Description : None None Site/Line Care : Secured with tape Secured with tape Dressing/ Activity : Dry, Intact, Transparent Dry, Intact, Transparent Flow/ Patency : No complications No complications IV Equipment/Supplies : Extension, set Extension, set WILLIAM ARREDONDO RN - 04/10/2012 10:20 PHARMACY STUDENT WILLIAM ARREDONDO RN - 04/10/2012 10:20 PHARMACY STUDENT Source: [employer] Document Id: [id number] MACY STUDENT documented in this encounter ED Notes Valarie Centeno R.N. - 04/10/2012 1:33 PM CST ED Treatments and Procedures ED Treatments and Procedures Entered On: 04/10/2012 13:33 PHARMACY STUDENT Performed On: 04/10/2012 13:33 PHARMACY STUDENT by VALARIE CENTENO RN Oxygen Therapy Oxygen Start Time : 04/10/2012 10:15 PHARMACY STUDENT Oxygen Therapy : Room air Oxygen Stop Time : 04/10/2012 10:59 PHARMACY STUDENT Oxygen Flow Rate : 2L/min VALARIE CENTENO RN - 04/10/2012 13:33 PHARMACY STUDENT Peripheral IV Peripheral IV Assess/Intervention Grid Peripheral IV #1 Peripheral IV #2 IV Activity : Discontinue Discontinue Number of Attempts : 1 1 Date of Insertion : 04/10/2012 PHARMACY STUDENT 04/10/2012 PHARMACY STUDENT IV Site : Antecubital Antecubital Laterality : Left Right Catheter Size : 18 18 Catheter Type : Over the needle Over the needle VALARIE CENTENO RN - 04/10/2012 13:33 PHARMACY STUDENT VALARIE CENTENO RN - 04/10/2012 13:33 PHARMACY STUDENT [facility] [place] Document Id: [id number] MACY STUDENT Valarie Centeno R.N. - 04/10/2012 1:31 PM CST ED Treatments and Procedures ED Treatments and Procedures Entered On: 04/10/2012 13:32 PHARMACY STUDENT Performed On: 04/10/2012 13:31 PHARMACY STUDENT by VALARIE CENTENO RN Cardiac Monitoring Monitoring Lead : I Monitoring Lead Security Shift Manager : Discontinued VALARIE CENTENO RN - 04/10/2012 13:31 PHARMACY STUDENT Oxygen Therapy Oxygen Start Time : 04/10/2012 10:15 PHARMACY STUDENT Oxygen Therapy : Room air Oxygen Flow Rate : 2L/min VALARIE CENTENO RN - 04/10/2012 13:31 PHARMACY STUDENT Peripheral IV Peripheral IV Assess/Intervention Grid Peripheral IV #1 Peripheral IV #2 IV Activity : Discontinue Discontinue Number of Attempts : 1 1 Date of Insertion : 04/10/2012 PHARMACY STUDENT 04/10/2012 PHARMACY STUDENT IV Site : Antecubital Antecubital Laterality : Left Right Catheter Size : 18 18 Catheter Type : Over the needle Over the needle Comments (Comment: iv dc cannula intact [VALARIE CENTENO RN - 04/10/2012 13:31 PHARMACY STUDENT] ) (Comment: iv dc cannula intact [VALARIE CENTENO RN - 04/10/2012 13:31 PHARMACY STUDENT] ) VALARIE CENTENO RN - 04/10/2012 13:31 PHARMACY STUDENT VALARIE CENTENO RN - 04/10/2012 13:31 PHARMACY STUDENT Source: [facility] POWERCHART Document Id: [id number] MACY STUDENT Valarie Centeno R.N. - 04/10/2012 12:59 PM CST ED Nurse Reassess ED Nurse Reassess Entered On: 04/10/2012 13:00 PHARMACY STUDENT Performed On: 04/10/2012 12:59 PHARMACY STUDENT by VALARIE CENTENO RN Pain Assessment Pain Symptoms : No VALARIE CENTENO RN - 04/10/2012 12:59 PHARMACY STUDENT Resp Reassess Respiratory Patient Stated Symptoms : None VALARIE CENTENO RN - 04/10/2012 12:59 PHARMACY STUDENT CV Reassess CV Patient Stated Symptoms : None VALARIE CENTENO RN - 04/10/2012 12:59 PHARMACY STUDENT Neuro Reassess Last Well Time Known : Not applicable Orientation : Oriented x 3 Characteristics of Speech : Appropriate for age Level of Consciousness : Alert Neuro Patient Stated Symptoms : None Gait : Steady VALARIE CENTENO RN - 04/10/2012 12:59 PHARMACY STUDENT [place] Coma Eye Opening Response [place] : Spontaneously Best Verbal Response [place] : Oriented Best Motor Response Maame : Obeys simple commands Maame Coma Score : 15 VALARIE CENTENO RN - 04/10/2012 12:59 PHARMACY STUDENT Behavioral Health Screen/Safety Reassmt Affect/Behavior : Calm, Cooperative, Appropriate VALARIE CENTENO RN - 04/10/2012 12:59 PHARMACY STUDENT GI Reassess GI Patient Stated Symptoms : None VALARIE CENTENO RN - 04/10/2012 12:59 PHARMACY STUDENT /OB Reassess Patient Stated Symptoms : None VALARIE CENTENO RN - 04/10/2012 12:59 PHARMACY STUDENT Source: [employer] Document Id: [id number] MACY STUDENT Elvis Cardenas M.D. - 04/10/2012 12:11 PM CST ED Disposition Summary ED Disposition Summary Entered On: 04/10/2012 12:12 PHARMACY STUDENT Performed On: 04/10/2012 12:11 PHARMACY STUDENT by ELVIS CARDENAS MD ED Disposition Summary Accompanied By : Spouse Mode of Discharge : Ambulatory Discharge From ED With : Home Med List Printed Discharge Instructions Given to Patient : Yes Patient Status at Discharge from ED : Improved ELVIS CARDENAS MD - 04/10/2012 12:11 PHARMACY STUDENT Source: [employer] Document Id: [id number] MACY STUDENT Valarie Centeno R.N. - 04/10/2012 11:45 AM CST ED Treatments and Procedures ED Treatments and Procedures Entered On: 04/10/2012 12:06 PHARMACY STUDENT Performed On: 04/10/2012 11:45 PHARMACY STUDENT by VALARIE CENTEON RN Ambulate Ambulation Distance : 200m Ambulation Patient Effort : Good Assistive Device : None Ambulation Patient Response : No shortness of breath/ no chest pain Ambulation Treatment Response : Expected Activity Assistance : Independent VALARIE CENTENO RN - 04/10/2012 12:02 PHARMACY STUDENT Source: [facility] POWERCHART Document Id: [id number] MACY STUDENT Valarie Centeno R.N. - 04/10/2012 11:42 AM CST ED Nurse Reassess ED Nurse Reassess Entered On: 04/10/2012 11:43 PHARMACY STUDENT Performed On: 04/10/2012 11:42 PHARMACY STUDENT by VALARIE CENTENO RN Pain Assessment Pain Symptoms : No VALARIE CENTENO RN - 04/10/2012 11:42 PHARMACY STUDENT Comfort Measures Comfort Measures Response : Comfort level increased VALARIE CENTENO RN - 04/10/2012 11:42 PHARMACY STUDENT Resp Reassess Respiratory Patient Stated Symptoms : None Distress : None Airway : Patent Respiratory Pattern : Regular Respirations : Unlabored Cough : None Sputum Amount : None VALARIE CENTENO RN - 04/10/2012 11:42 PHARMACY STUDENT CV Reassess CV Patient Stated Symptoms : None Skin Color : Normal for ethnicity Skin Description : Dry Skin Temperature : Warm Nail Bed Color : [place] Capillary Refill : Less than 2 seconds Heart Rhythm : Regular Monitoring Lead : I Cardiac Rhythm : Sinus rhythm VALARIE CENTENO RN - 04/10/2012 11:42 PHARMACY STUDENT Neuro Reassess Last Well Time Known : Not applicable Orientation : Oriented x 3 Characteristics of Speech : Appropriate for age Level of Consciousness : Alert Neuro Patient Stated Symptoms : None Gait : Steady VALARIE CENTENO RN - 04/10/2012 11:42 PHARMACY STUDENT [place] Coma Eye Opening Response [place] : Spontaneously Best Verbal Response [place] : Oriented Best Motor Response [place] : Obeys simple commands Maame Coma Score : 15 VALARIE CENTENO RN - 04/10/2012 11:42 PHARMACY STUDENT Behavioral Health Screen/Safety Reassmt Affect/Behavior : Calm, Cooperative, Appropriate VALARIE CENTENO RN - 04/10/2012 11:42 PHARMACY STUDENT GI Reassess GI Patient Stated Symptoms : None VALARIE CENTENO RN - 04/10/2012 11:42 PHARMACY STUDENT /OB Reassess Patient Stated Symptoms : None VALARIE CENTENO RN - 04/10/2012 11:42 PHARMACY STUDENT Integumentary Integumentary Patient Stated Symptoms : None VALARIE CENTENO RN - 04/10/2012 11:42 PHARMACY STUDENT Source: [facility] [place] Document Id: [id number] MACY STUDENT Valarie Centeno R.N. - 04/10/2012 10:59 AM CST ED Treatments and Procedures ED Treatments and Procedures Entered On: 04/10/2012 10:59 PHARMACY STUDENT Performed On: 04/10/2012 10:59 PHARMACY STUDENT by VALARIE CENTENO RN Oxygen Therapy Oxygen Start Time : 04/10/2012 10:15 PHARMACY STUDENT Oxygen Therapy : Nasal Cannula Oxygen Stop Time : 04/10/2012 10:59 PHARMACY STUDENT Oxygen Flow Rate : 2L/min VALARIE CENTENO RN - 04/10/2012 10:59 PHARMACY STUDENT Source: [employer] Document Id: [id number] MACY STUDENT Elvis Cardenas M.D. - 04/10/2012 10:42 AM CST Chest pain Patient: GERMAN NOVAK Age: 41 years Sex: Female : 1970 Author: ELVIS CARDENAS MD Attachments: None Associated Diagnosis: Precordial chest pain 786.51 Basic Information Time seen: Date 04/10/2012, Immediately upon arrival. History source: Patient. Arrival mode: Private vehicle, walking. History limitation: None. Additional information: Chief Complaint from Nursing Triage Note : Chief Complaint Description. 04/10/2012 10:20 PHARMACY STUDENT Chief Complaint Description see triage 04/10/2012 10:00 PHARMACY STUDENT Chief Complaint Description 41 year old female presents to the ED after presenting to clinic triage with c/o being lightheaded, feeling sweaty, and palpitations. Patient has a hx NSTEMI- June 21, 2010. History of Present Illness The patient presents with chest pain andsqueezing sub sternal central sensation with sense of heart irregularity and clammy feeling. No radiation to arms, neck, or back.. The onset was 2 hours ago. Thecourse/duration of symptoms is fluctuating in intensity and 2/10 while at home and 1-1/2 /10 after ED labs, and Xray. Relented then returned while in ED. Location: Central substernal epigastric. Radiating pain: none. The character of symptoms is tightness and pressure. The degree at onset was minimal.The degree at maximum was minimal, 0.5 /10. . There are exacerbating factors including none and resturant outing last night and 5-6 drinks and cigarettes last noc.. The relieving factor is oxygen. Riskfactors consist of coronary artery disease. Prior episodes: cardiac, myocardial infarction times 1 and last myocardial infarction was 2 year ago. Therapy today None. Associated symptoms: diaphoresis, anxiety, palpitations, denies shortness of breath, denies nausea and denies vomiting. Review of Systems Constitutional symptoms: No fever, no chills, no sweats or no weakness. Skin symptoms: No jaundice, no rash or no pruritus. Eye symptoms: No recent vision problems. ENMT symptoms: No ear pain or no sore throat. Respiratory symptoms: No hemoptysis or no stridor. Cardiovascular symptoms: Chest pain, but no palpitations, no tachycardia or no diaphoresis. Gastrointestinal symptoms: No abdominal pain, no nausea, no vomiting or no diarrhea. Genitourinary symptoms: No dysuria. Neurologic symptoms: No altered level of consciousness or no tingling. Psychiatric symptoms: Anxiety. Endocrine symptoms: No polyuria or no polyphagia. Hematologic/Lymphatic symptoms: Bleeding tendency negative or no swollen nodes. Allergy/immunologic symptoms: No impaired immunity. Additional review of systems information: All other systems reviewed and otherwise negative. Health Status Allergies: . Allergic Reactions (Selected) Severity Not Documented Morphine- No reactions were documented. Percocet 5/325- No reactions were documented. Toradol- No reactions were documented. Nonallergic Reactions (Selected) Severity Not Documented Narcotic analgesics- Itch. Medications: (Selected). Inpatient Medications Ordered Saline flush: 10 mL, IV Push, PRN, PRN: Maintain IV access Sodium Chloride 0.9% 1000 mL: 100 mL/hr, IV nitroglycerin: 0.4 mg, SL, q5min, PRN: Chest Pain Prescriptions Ordered Prozac 40 mg oral capsule: 40 mg, 1 cap(s), PO, Daily, 30 cap(s) Documented Medications Ordered Multiple Vitamins oral tablet: 1 tab(s), PO, Daily, 30 tab(s) Vitamin C 500 mg oral tablet: 500 mg, 1 tab(s), PO, Daily, 90 tab(s) Vitamin D 400 iu oral tablet: 400 IntU, 1 tab(s), PO, Daily, 100 tab(s) aspirin 81 mg oral tablet: 1 tab(s), PO, Daily, 90 tab(s) Immunizations: Include Immunizations. Previous diphtheria/pertussis, acel/tetanus adult: Ad hoc dose () 10/24/2005 CDT. hepatitis B adult vaccine: Ad hoc dose () 08/22/1998 CDT, Ad hoc dose () 05/19/2002 PHARMACY STUDENT, Ad hoc dose() 08/18/2002 CDT, Ad hoc dose () 09/27/2002 CDT. Future No future immunizations have been selected or recorded. Menstrual history: Unknown. history: not currently . Past Medical/ Family/ Social History Medical history: . No active or resolved past medical history items have been selected or recorded. Surgical history: . LEEP procedure of cervix ([id number]) in 1996 at 26 Years. Total abdominal hysterectomy (corpus and cervix), with or without removal of tube(s), with or without removal of ovary(s); ([id number]). Comments: 07/13/2010 11:39 - RAVEN DELUNA LPN date unknown Family history: Not significant. Social history: Alcohol use: Occasionally, Tobacco use: Occasionally, Drug use: Denies, Occupation: Employed, Family/social situation: . Problem list: . Problem list reviewed. Physical Examination Vital Signs Vital Signs. 04/10/2012 10:20 PHARMACY STUDENT Temperature Core 37.6 C Apical Heart Rate 78 /min Respiratory Rate 20 /min SpO2 99 % Systolic Blood Pressure 132 mmHg Diastolic Blood Pressure 93 mmHg >HHI Mean Arterial Pressure 106 mmHg BP Location Left upper 04/10/2012 10:00 PHARMACY STUDENT Temperature Core 37.5 C Apical Heart Rate 84 /min Respiratory Rate 24 /min HI SpO2 97 % Systolic Blood Pressure 135 mmHg Diastolic Blood Pressure 84 mmHg Mean Arterial Pressure 101 mmHg BP Location Left upper Measurements. 04/10/2012 10:00 PHARMACY STUDENT Height 173 cm Height Source Stated Dosing Weight 92.8 kg Actual Weight 92.8 kg Weight Source Bed scale Body Mass Index 31.01 kg/m2 SpO2. 04/10/2012 10:20 PHARMACY STUDENT SpO2 99 % 04/10/2012 10:00 PHARMACY STUDENT SpO2 97 % General: Alert and mild distress. Skin: Warm, dry and intact. Head: Normocephalic and atraumatic. Neck: Supple and no tenderness. Eye: Pupils are equal, round and reactive to light, extraocular movements are intact and vision grossly normal. Ears, nose, mouth and throat: Oral mucosa moist and no pharyngeal erythema or exudate. Cardiovascular: Regular rate and rhythm, No murmur, S1, S2, cardiac rub, click, Edema: not pedal andCapillary refill: < 2 seconds. Respiratory: Breath sounds are equal, Breath sounds: Clear, Retractions: None and Clubbing of nails:None. Chest wall: No tenderness. Back: Nontender, Normal range of motion and Normal alignment. Musculoskeletal: Normal ROM. normal strength. no tenderness. no swelling. Gastrointestinal: Soft, Non distended and Normal bowel sounds. Neurological: Alert and oriented to person, place, time, and situation, No focal neurological deficit observed, CN II-XII intact, normal sensory observed, normal motor observed and normal speech observed. Lymphatics: No lymphadenopathy. Psychiatric: Cooperative, appropriate mood & affect and normal judgment. Medical Decision Making Differential Diagnosis:Unstable angina, anxiety, atypical chest pain, gastroesophageal reflux disease, chest wall pain. Documents reviewed:Prior records. OrdersLaunch Orders. Laboratory: TSH (Order Processing): Stat, 04/10/2012 11:12 PHARMACY STUDENT, Once Patient Care: ED ACS (STEMI, NSTEMI, UA) (Order Processing) Vital Signs q 15 Minutes - ED (Order Processing): 04/10/2012 11:12 PHARMACY STUDENT Pharmacy: NS 250 mL Bolus and Continuous 1000 mL (Order Processing): 100 mL/hr, IV aspirin (Order Processing): 324 mg, PO, Once nitroglycerin additive 25 mg [0.15 mcg/kg/min] + Premix Bag 250 mL (Order Processing): 8.35 mL/hr, IV ED: Oxygen - ER (Order Processing): 04/10/2012 11:12 PHARMACY STUDENT, Once, PRN Order, to keep oxygen saturation above 90%, 24 Electrocardiogram:Normal sinus rhythm, No ST-T changes, normal DE & QRS intervals. monitoring manager:Rate 76. Results review:All Results : Results. 04/10/2012 10:59 PHARMACY STUDENT ED Treatments and Procedures - Text 04/10/2012 10:40 PHARMACY STUDENT PRN Response - Text 04/10/2012 10:32 PHARMACY STUDENT ED Nurse Reassess - Text 04/10/2012 10:30 PHARMACY STUDENT XR Chest 1 view portable Report 04/10/2012 10:20 PHARMACY STUDENT ED Nursing Note 04/10/2012 10:07 PHARMACY STUDENT ED Triage Note - Text (In Error) 04/10/2012 10:00 PHARMACY STUDENT ED Triage Note - Text 04/10/2012 11:13 PHARMACY STUDENT Apical Heart Rate 70 /min SpO2 98 % Systolic Blood Pressure 122 mmHg Diastolic Blood Pressure 80 mmHg BP Location Left upper Oxygen Therapy Room air Vital Signs Form Vital Signs Form 04/10/2012 10:59 PHARMACY STUDENT Apical Heart Rate 64 /min SpO2 97 % Systolic Blood Pressure 128 mmHg Diastolic Blood Pressure 82 mmHg BP Location Left upper Oxygen Therapy Room air Oxygen Therapy Nasal Cannula Oxygen Flow Rate 2 L/min Oxygen Start Time 04/10/2012 10:15 Oxygen Stop Time 04/10/2012 10:59 ED Treatments and Procedures Form ED Treatments and Procedures Form Vital Signs Form Vital Signs Form 04/10/2012 10:48 PHARMACY STUDENT Temperature Core 37.5 C Apical Heart Rate 69 /min Respiratory Rate 20 /min SpO2 98 % Systolic Blood Pressure 127 mmHg Diastolic Blood Pressure 84 mmHg BP Location Left upper Oxygen Therapy Nasal Cannula Oxygen Saturation Monitoring Frequency Continuous Oxygen Flow Rate 2 L/min Vital Signs Form Vital Signs Form 04/10/2012 10:40 PHARMACY STUDENT Apical Heart Rate 78 /min SpO2 96 % Systolic Blood Pressure 125 mmHg Diastolic Blood Pressure 82 mmHg BP Location Left upper PRN Medication Effective Yes Post Medication Pain Assessment 0 Response Response Oxygen Therapy Nasal Cannula Oxygen Saturation Monitoring Frequency Continuous Oxygen Flow Rate 2 L/min Vital Signs Form Vital Signs Form 04/10/2012 10:35 PHARMACY STUDENT Apical Heart Rate 77 /min SpO2 98 % Systolic Blood Pressure 132 mmHg Diastolic Blood Pressure 88 mmHg BP Location Left upper Oxygen Therapy Nasal Cannula Oxygen Saturation Monitoring Frequency Continuous Oxygen Flow Rate 2 L/min nitroglycerin 0.4 mg mg Sodium Chloride 0.9% Begin Bag 1,000 mL mL Vital Signs Form Vital Signs Form 04/10/2012 10:34 PHARMACY STUDENT aspirin 324 mg mg 04/10/2012 10:32 PHARMACY STUDENT Pain Symptoms Yes Pain 1 Location Other: Chest/Heart Pain 1 Laterality Bilateral Pain 1 Intensity 2 Pain 1 Time Pattern Acute Pain 1 Onset Sudden Pain 1 Quality Pressure, Sharp Pain 1 Radiation No Pain 1 Aggravating Factors None Pain 1 Alleviating Factors None Pain 1 Associated Symptoms Palpitations Pain 1 Interventions MD notified ED Nurse Reassess Form ED Nurse Reassess Form 04/10/2012 10:25 PHARMACY STUDENT 12 Lead EKG Done 04/10/2012 10:20 PHARMACY STUDENT Temperature Core 37.6 C Apical Heart Rate 78 /min Respiratory Rate 20 /min SpO2 99 % Systolic Blood Pressure 132 mmHg Diastolic Blood Pressure 93 mmHg >HHI Mean Arterial Pressure 106 mmHg BP Location Left upper Pain Symptoms No Distress None Nail Bed Color [place] Capillary Refill Less than 2 seconds Heart Sounds ICU S1S2 Heart Rhythm Regular CV Patient Stated Symptoms Palpitations Radial Pulse, Left 2+ Normal Radial Pulse, Right 2+ Normal Bilateral Pretibial Edema None Cardiac Rhythm Sinus rhythm Monitoring Lead I Monitoring Lead Security Shift Manager Initiated Respirations Unlabored Respiratory Patient Stated Symptoms Shortness of breath Respiratory Pattern Regular Upper Lobes Breath Sounds, Bilaterally Clear Lower Lobes Breath Sounds, Bilaterally Diminished Cough None Sputum Amount None Airway Patent Oxygen Therapy Nasal Cannula Oxygen Therapy Nasal Cannula Oxygen Saturation Monitoring Frequency Continuous Oxygen Flow Rate 2 L/min Oxygen Flow Rate 2 L/min Integumentary Patient Stated Symptoms None Skin Color Normal for ethnicity Skin Color Normal for ethnicity Skin Temperature Warm Skin Temperature Warm Skin Description Dry Skin Description Dry Skin Integrity Intact Skin Turgor Elastic Mucous Membrane Color [place] Mucous Membrane Description Moist Peripheral IV #1 Activity Start Peripheral IV #1 Date of Insertion 04/10/2012 Peripheral IV #1 Number of Attempts 1 Peripheral IV #1 Catheter Type Over the needle Peripheral IV #1 Catheter Size/Length 18 Peripheral IV #1 Site Antecubital Peripheral IV #1 Laterality Left Peripheral IV #1 Site Condition No complications Peripheral IV #1 Dressing/Activity Dry, Intact, Transparent Peripheral IV #1 Drainage Description None Peripheral IV #1 Site/Line Care Secured with tape Peripheral IV #1 Flow/Patency No complications Peripheral IV #1 Equipment/Supplies Extension, set Peripheral IV #2 Activity Start Peripheral IV #2 Date of Insertion 04/10/2012 Peripheral IV #2 Number of Attempts 1 Peripheral IV #2 Catheter Type Over the needle Peripheral IV #2 Catheter Size/Length 18 Peripheral IV #2 Site Antecubital Peripheral IV #2 Laterality Right Peripheral IV #2 Site Condition No complications Peripheral IV #2 Dressing/Activity Dry, Intact, Transparent Peripheral IV #2 Drainage Description None Peripheral IV #2 Site/Line Care Secured with tape Peripheral IV #2 Flow/Patency No complications Peripheral IV #2 Equipment/Supplies Extension, set Neuro Patient Stated Symptoms None Gait Steady Swallowing Difficulty None Characteristics of Speech Appropriate for age Level of Consciousness Alert Last Well Time Known Not applicable Eye Opening Response Maame Spontaneously Best Motor Response Maame Obeys simple commands Best Verbal Response Maame Oriented [place] Coma Score 15 Affect/Behavior Calm, Cooperative, Appropriate Orientation Oriented x 3 Domestic Abuse Concerns None Emotional Support Available Yes Nutrition ED Adequate Patient Stated Symptoms None Latex Reaction No Oxygen Start Time 04/10/2012 10:15 Tracking Acuity 2 -Emergent Tracking Group [facility] ED Drug Resistant Organism No Tobacco Use/Currently Using Yes Exposure to Tobacco Smoke Care provider denies smoking in home Tobacco Use Grid Tobacco Use Grid Alcohol Use Grid Alcohol Use Grid Recreational Drug Use Grid Recreational Drug Use Grid Chief Complaint Description see triage Mode of Arrival ED Private vehicle Track Medical Accompanied by Significant other Information Given by Patient, Significant other Immunizations Current Yes Last Tetanus < 5 years Pneumovac None Influenza Last year Languages [place] ED Physician Notification Time 04/10/2012 10:00 SAEED Level 1 No SAEED Level 2 No SAEED Level 3 Many Vital Signs SAEED Danger zone (HR > 100, RR > 20, SaO2 < 92%) Vital Signs Assessed Yes Cardiovascular Detailed Assessment Yes GCS Assessed Yes Respiratory Detailed Assessment Yes 04/10/2012 10:08 PHARMACY STUDENT Sodium Lvl 138.4 mM/L Potassium Lvl 3.8 mmol/L Chloride 103 mmol/L CO2 25.3 mmol/L AGAP 10 mmol/L Glucose Lvl 126 mg/dL Creatinine 0.68 mg/dL EGFR (MDRD) >60 mL/min/1.73m2 EGFR (MDRD) >60 mL/min/1.73m2 BUN 13 mg/dL Calcium Lvl 8.8 mg/dL CK 82 U/L CK-MB 1.7 ng/mL Troponin-T <0.01 ng/mL Hgb 13.6 g/dL Hct 39.4 % WBC 5.0 x10(9)/L RBC 4.26 x10(12)/L MCV 92.5 fL RDW 12.0 % Platelet 265 x10(9)/L Neutro % 54.9 % Lymph % 27.9 % [place] % 10.9 % Eos % 5.7 % HI Baso % 0.6 % Neutro Absolute 2.72 10(9)/L Lymph Absolute 1.38 x10(9)/L [place] Absolute 0.54 x10(9)/L Eos Absolute 0.28 x10(9)/L Baso Absolute 0.03 x10(9)/L Differential? Auto PT 9.5 second(s) INR 0.92 PTT 24.3 second(s) 04/10/2012 10:07 PHARMACY STUDENT ED Triage Assessment Adult ([facility]) Form In Error (In Error) 04/10/2012 10:00 PHARMACY STUDENT Height 173 cm Height Source Stated Dosing Weight 92.8 kg Actual Weight 92.8 kg Weight Source Bed scale Body Mass Index 31.01 kg/m2 Temperature Core 37.5 C Apical Heart Rate 84 /min Respiratory Rate 24 /min HI SpO2 97 % Systolic Blood Pressure 135 mmHg Diastolic Blood Pressure 84 mmHg Mean Arterial Pressure 101 mmHg BP Location Left upper Pain Symptoms No Oxygen Therapy Room air Eye Opening Response [place] Spontaneously Best Motor Response [place] Obeys simple commands Best Verbal Response [place] Oriented Maame Coma Score 15 Latex Reaction No Tracking Acuity 2 -Emergent Tracking Group [facility] ED Drug Resistant Organism No Chief Complaint Description 41 year old female presents to the ED after presenting to clinic triagewith c/o being lightheaded, feeling sweaty, and palpitations. Patient has a hx NSTEMI- June 21, 2010. Mode of Arrival ED Private vehicle Track Medical Accompanied by Significant other Information Given by Patient, Significant other Immunizations Current Yes Last Tetanus < 5 years Pneumovac None Influenza Last year Languages [place] ED Physician Notification Time 04/10/2012 10:00 SAEED Level 1 No SAEED Level 2 No SAEED Level 3 Many Vital Signs SAEED Danger zone (HR > 100, RR > 20, SaO2 < 92%) Vital Signs Assessed Yes GCS Assessed Yes ED Triage Assessment Adult ([facility]) Form ED Triage Assessment Adult ([facility]) Form Radiology results:X-ray, reveals no acute disease process. Reexamination/ Reevaluation Vital signs results included from flowsheet : Vital Signs 04/10/2012 11:13 PHARMACY STUDENT Apical Heart Rate 70 /min SpO2 98 % Systolic Blood Pressure 122 mmHg Diastolic Blood Pressure 80 mmHg BP Location [facility] 04/10/2012 10:59 PHARMACY STUDENT Apical Heart Rate 64 /min SpO2 97 % Systolic Blood Pressure 128 mmHg Diastolic Blood Pressure 82 mmHg BP Location [facility] 04/10/2012 10:48 PHARMACY STUDENT Temperature Core 37.5 C Apical Heart Rate 69 /min Respiratory Rate 20 /min SpO2 98 % Systolic Blood Pressure 127 mmHg Diastolic Blood Pressure 84 mmHg BP Location Left [facility] 04/10/2012 10:40 PHARMACY STUDENT Apical Heart Rate 78 /min SpO2 96 % Systolic Blood Pressure 125 mmHg Diastolic Blood Pressure 82 mmHg BP Location [facility] 04/10/2012 10:35 PHARMACY STUDENT Apical Heart Rate 77 /min SpO2 98 % Systolic Blood Pressure 132 mmHg Diastolic Blood Pressure 88 mmHg BP Location [facility] 04/10/2012 10:20 PHARMACY STUDENT Temperature Core 37.6 C Apical Heart Rate 78 /min Respiratory Rate 20 /min SpO2 99 % Systolic Blood Pressure 132 mmHg Diastolic Blood Pressure 93 mmHg >HHI Mean Arterial Pressure 106 mmHg BP Location [facility] 04/10/2012 10:00 PHARMACY STUDENT Temperature Core 37.5 C Apical Heart Rate 84 /min Respiratory Rate 24 /min HI SpO2 97 % Systolic Blood Pressure 135 mmHg Diastolic Blood Pressure 84 mmHg Mean Arterial Pressure 101 mmHg BP Location [facility] SpO2 04/10/2012 11:13 PHARMACY STUDENT SpO2 98 % 04/10/2012 10:59 PHARMACY STUDENT SpO2 97 % 04/10/2012 10:48 PHARMACY STUDENT SpO2 98 % 04/10/2012 10:40 PHARMACY STUDENT SpO2 96 % 04/10/2012 10:35 PHARMACY STUDENT SpO2 98 % 04/10/2012 10:20 PHARMACY STUDENT SpO2 99 % 04/10/2012 10:00 PHARMACY STUDENT SpO2 97 % Impression and Plan Diagnosis Precordial chest pain 786.51 (Discharge, Emergency medicine, Medical) Plan Condition: Improved. Disposition: Discharged: to home. Patient was given the following educational materials: CHEST PAIN, NonCardiac. Follow up with: Primary Care Physician, In: as needed. Counseled: Patient, Friend, Regarding diagnosis, Regarding diagnostic results, Regarding treatment plan, Regarding prescription, Patient indicated understanding of instructions. Electronically Signed By: ELVIS CARDENAS MD On: 04/10/2012 01:27 PM Modified by and Electronically Signed by: ELVIS CARDENAS MD On: 04/10/2012 01:27 PM Source: [facility] POWERCHART Document Id: [id number]} MACY STUDENT Valarie Centeno R.N. - 04/10/2012 10:32 AM CST ED Nurse Reassess ED Nurse Reassess Entered On: 04/10/2012 10:37 PHARMACY STUDENT Performed On: 04/10/2012 10:32 PHARMACY STUDENT by VALARIE CENTENO RN Pain Assessment Pain Symptoms : Yes VALARIE CENTENO RN - 04/10/2012 10:32 PHARMACY STUDENT Pain Pain Assessment Grid Pain 1 Location : Other: Chest/Heart Laterality : Bilateral Intensity : 2 Time Pattern : Acute Onset : Sudden Quality : Pressure, Sharp Pain Radiation : No Aggravating Factors : None Alleviating Factors : None Associated Symptoms : Palpitations Interventions : MD notified VALARIE CENTENO RN - 04/10/2012 10:41 PHARMACY STUDENT [facility] [place] Document Id: [id number] MACY STUDENT William Arredondo R.N. - 04/10/2012 10:00 AM CST ED Triage Assessment ED Triage Assessment Entered On: 04/10/2012 10:20 PHARMACY STUDENT Performed On: 04/10/2012 10:00 PHARMACY STUDENT by WILLIAM ARREDONDO RN Reason For Visit Problems(Active) Common migraine Name of Problem: Common migraine ; Onset Date: Unknown ; Recorder: NELLIE JOHNSON RN;Confirmation: Confirmed ; Classification: Nursing ; Code: 816802 ; Contributor System: [employer] ; Last Updated: 06/19/2010 11:18 CDT ; Life Cycle Status: Active ; Vocabulary: SNOMED CT Hyperlipidemia Name of Problem: Hyperlipidemia ; Recorder: MAXIME VARGHESE RN; Confirmation: Confirmed ; Classification: Medical ; Code: 990779 ; Contributor System: [employer] ; Last Updated: 02/14/2012 13:41 PHARMACY STUDENT ; Life Cycle Date: 02/11/2012 ; Life Cycle Status: Active ; Responsible Provider: MAXIME VARGHESE RN; Vocabulary: SNOMED CT ; Comments: 02/14/2012 13:17 - FRANCISCO COLINDRES LPN unknown date of dx Diagnoses(Active) Chest pain Date: 04/10/2012 ; Diagnosis Type: Reason For Visit ; Confirmation: Complaint of ; Clinical Dx: Chest pain ; Classification: Medical ; Clinical Service: Emergency medicine ; Code: PNED ; Probability: 0 ; Diagnosis Code: [id number] Triage Chief Complaint Description : 41 year old female presents to the ED after presenting to clinic triage with c/o being lightheaded, feeling sweaty, and palpitations. Patient has a hx NSTEMI- June 21, 2010. Information Given By : Patient, Significant other Accompanied By : Significant other Mode of Arrival ED : Private vehicle Track : Medical Languages : Citizen [place] Patient Informed of Triage Location : Emergency department Vital Signs Assessed : Yes GCS Assessed : Yes WILLIAM ARREDONDO RN - 04/10/2012 10:14 PHARMACY STUDENT Vital Signs Temperature Core : 37.5C(Converted to: 99.5DegF) Apical Heart Rate : 84/min Respiratory Rate : 24/min (HI) Systolic Blood Pressure : 135mmHg Diastolic Blood Pressure : 84mmHg NIBP Mean : 101mmHg BP Location : Left upper extremity SpO2 : 97% Oxygen Therapy : Room air Height : 173cm(Converted to: 5ft 8inch(es)) Actual Weight : 92.8kg Actual Weight Conversion to Pounds : 204.160lb Weight Source : Bed scale Dosing Weight : 92.8kg Dosing Weight Conversion to Pounds : 204.160lb Height Source : Stated Body Mass Index : 31.01kg/m2 WILLIAM ARREDONDO RN - 04/10/2012 10:14 PHARMACY STUDENT [place] Coma Eye Opening Response Maame : Spontaneously Best Verbal Response [place] : Oriented Best Motor Response Maame : Obeys simple commands [place] Coma Score : 15 WILLIAM ARREDONDO RN - 04/10/2012 10:14 PHARMACY STUDENT Pain Assessment Pain Symptoms : No WILLIAM ARREDONDO RN - 04/10/2012 10:14 PHARMACY STUDENT ED Physician Notification Time ED Physician Notification Time : 04/10/2012 10:00 PHARMACY STUDENT WILLIAM ARREDONDO RN - 04/10/2012 10:14 PHARMACY STUDENT SAEED SAEED Level 1 : No SAEED Level 2 : No SAEED Level 3 : Many Vital Signs SAEED : Danger zone (HR > 100, RR > 20, SaO2 < 92%) WILLIAM ARREDONDO RN - 04/10/2012 10:14 PHARMACY STUDENT DCP GENERIC CODE Tracking Acuity : 2 -Emergent Tracking Group : [facility] ED WILLIAM ARREDONDO RN - 04/10/2012 10:14 PHARMACY STUDENT Allergy Latex Reaction : No WILLIAM ARREDONDO RN - 04/10/2012 10:14 PHARMACY STUDENT Allergies (Active) morphine Estimated Onset Date: Unspecified ; Created By: RAVEN DELUNA LPN; Reaction Status: Active ; Category: Drug ; Substance: morphine ; Type: Allergy ; Updated By: RAVEN DELUNA LPN; Reviewed Date: 04/10/2012 10:20 PHARMACY STUDENT narcotic analgesics Estimated Onset Date: Unspecified ; Reactions: itch ; Created By: NELLIE JOHNSON RN; Reaction Status: Active ; Category: Drug ; Substance: narcotic analgesics ; Type: Sensitivity ; Updated By: NELLIE JOHNSON RN; Reviewed Date: 04/10/2012 10:20 PHARMACY STUDENT Percocet 5/325 Estimated Onset Date: Unspecified ; Created By: RAVEN DELUNA LPN; Reaction Status:Active ; Category: Drug ; Substance: Percocet 5/325 ; Type: Allergy ; Updated By: RAVEN DELUNA LPN; Reviewed Date: 04/10/2012 10:20 PHARMACY STUDENT Toradol Estimated Onset Date: Unspecified ; Created By: RAVEN DELUNA LPN; Reaction Status: Active; Category: Drug ; Substance: Toradol ; Type: Allergy ; Updated By: RAVEN DELUNA LPN; Reviewed Date: 04/10/2012 10:20 PHARMACY STUDENT ID Screen Drug Resistant Organism : No WILLIAM ARREDONDO RN - 04/10/2012 10:14 PHARMACY STUDENT Immunizations Immunizations Current : Yes Last Tetanus : < 5 years Pneumovac : None Influenza : Last year WILLIAM ARREDONDO RN - 04/10/2012 10:14 PHARMACY STUDENT Source: [facility] POWERCHART Document Id: [id number] MACY STUDENT documented in this encounter Miscellaneous Notes Miscellcriselda - Valarie Centeno R.N. - 04/10/2012 1:31 PM CST Valuables/Belongings Valuables/Belongings Entered On: 04/10/2012 13:31 PHARMACY STUDENT Performed On: 04/10/2012 13:31 PHARMACY STUDENT by VALARIE CENTENO RN Valuables/Belongings Valuables/Belongings Grid Valuables with Patient Clothes, Patient Valuables : Jacket, Pants, Shirt, Shoes, Undergarments Electronic Devices : Cell phone VALARIE CENTENO RN - 04/10/2012 13:31 PHARMACY STUDENT Home Medication Disposition : None brought in with patient VALARIE CENTENO RN - 04/10/2012 13:31 PHARMACY STUDENT Source: [facility] [place] Document Id: [id number] MACY STUDENT [employer] - Valarie Centeno R.N. - 04/10/2012 1:21 PM CST Discharge Vital Signs Form Discharge Vital Signs Form Entered On: 04/10/2012 13:21 PHARMACY STUDENT Performed On: 04/10/2012 13:21 PHARMACY STUDENT by VALARIE CENTENO RN Vital Signs Temperature Core : 37.3C(Converted to: 99.1DegF) Apical Heart Rate : 58/min (LOW) Respiratory Rate : 20/min Systolic Blood Pressure : 127mmHg Diastolic Blood Pressure : 86mmHg NIBP Mean : 100mmHg BP Location : Left upper extremity SpO2 : 98% Oxygen Therapy : Room air VALARIE CENTENO RN - 04/10/2012 13:21 PHARMACY STUDENT Source: [facility] [place] Document Id: [id number] MACY STUDENT Kilo - Valarie Centeno R.N. - 04/10/2012 9:53 AM CST Facility Charge Ticket Facility Charge Ticket Entered On: 04/10/2012 13:34 PHARMACY STUDENT Performed On: 04/10/2012 9:53 PHARMACY STUDENT by VALARIE CENTENO RN Facility Charge TVL Level for Facility Charge Ticket : Level 5 Mode of Arrival ED : Private vehicle [place] Mode of Arrival Interpreted : Standard [place] Process Management : None [place] Order Management : EKG, RT, Ancillary Services, Lab tests, Xray - plain films 30 Minutes Critical Care : No [place] Nursing Assessment : Triage and 3-5 nursing assessments [facility] Disposition : Discharge [place] Total Points with Diagnosis Control : 15 [place] Visit Level : 65360 Level 5 VALARIE CENTENO RN - 04/10/2012 13:33 PHARMACY STUDENT Chief Complaint 8.50.02 Reason For Visit Category : Cardiorespiratory ED Chief Complaint Cardiorespiratory 8.5 : Palpitations TVL Calc : 20 TVL for Facility Charge Ticket Dx : Level 5 VALARIE CENTENO RN - 04/10/2012 13:33 PHARMACY STUDENT Source: [facility] [employer] [place] Document Id: [id number] MACY STUDENT documented in this encounter Plan of Treatment Not on filedocumented as of this encounter Procedures Procedure Name Priority Date/Time Associated Comments Diagnosis CREATINE KINASE (CK) MB Routine 04/10/2012 10:08 Results for this ISOENZYME, S AM PHARMACY STUDENT procedure are i n the results section. AUTOMATED DIFFERENTIAL, Routine 04/10/2012 10:08 Results for this B AM PHARMACY STUDENT procedure are i n the results section. ACTIVATED PARTIAL Routine 04/10/2012 10:08 Result s for this THROMBOPLASTIN TIME AM PHARMACY STUDENT procedur e are in (APTT), P the results section. PROTHROMBIN TIME (PT), Routine 04/10/2012 10:08 R esults for this P AM PHARMACY STUDENT procedure are i n the results section. CBC WITH DIFFERENTIAL, Routine 04/10/2012 10:08 R esults for this B AM PHARMACY STUDENT procedure are i n the results section. TROPONIN T, 5TH GEN, P Routine 04/10/2012 10:08 R esults for this AM PHARMACY STUDENT procedure are i n the results section. CREATINE KINASE (CK), S Routine 04/10/2012 10:08 Results for this AM PHARMACY STUDENT procedure are i n the results section. BASIC METABOLIC PANEL, Routine 04/10/2012 10:08 R esults for this S/P AM PHARMACY STUDENT procedure are i n the results section. documented in this encounter Results (ABNORMAL) Automated Differential (04/10/2012 10:08 AM PHARMACY STUDENT) Analysis Performed At Patho logist Time Signature Neutro % 54.9 42.0 - POWERCHART 77.0 Lymphocytes % 27.9 23.0 - POWERCHART 44.0 HX [place] % 10.9 2.0 - 18.0 POWERCHART HX Eos % 5.7 (H) 1.0 - 5.0 POWERCHART HX Baso % 0.6 0.0 - 1.0 POWERCHART Absolute 2.72 1.70 - POWERCHART Neutrophils 7.00 109L Lymphocytes 1.38 0.90 - POWERCHART 2.90 X109L Monocytes 0.54 0.30 - POWERCHART 0.90 X109L Eosinophils 0.28 0.05 - POWERCHART 0.50 X109L Absolute 0.03 0.00 - POWERCHART Basophil 0.30 X109L Specimen Anatomical Collection Method Collection Time Receive d Time (Source) Location / / Volume Laterality Blood 04/10/2012 10:08 04/10/2012 AM PHARMACY STUDENT 10:08 AM PHARMACY STUDENT Elvis Cardenas M.D. LAB BLOOD ADD-ON Performing Organization Address City/[facility]/ZIP Code Phon e Number POWERCHART APTT (Activated Partial Thromboplastin Time) (04/10/2012 10:08 AM PHARMACY STUDENT) Analysis Performed At Patho logist Time Signature Prothrombin 24.3 23.0 - 31.0 POWERCHART Time, P SECONDS Specimen (Source) Anatomical Collection Method Collection Time Re ceived Time Location / / Volume Laterality Blood 04/10/2012 10:08 AM PHARMACY STUDENT Elvis Cardenas M.D. LAB BLOOD ADD-ON Performing Organization Address City/State/ZIP Code Phon e Number POWERCHART PT (Prothrombin Time) with INR (04/10/2012 10:08 AM PHARMACY STUDENT) Analysis Performed At Patho logist Time Signature Prothrombin 9.5 9.3 - 11.3 POWERCHART Time, P SECONDS INR 0.92 0.90 - 1.10 POWERCHART Specimen (Source) Anatomical Collection Method Collection Time Re ceived Time Location / / Volume Laterality Blood 04/10/2012 10:08 AM PHARMACY STUDENT Elvis Cardenas M.D. LAB BLOOD ADD-ON Performing Organization Address City/State/ZIP Code Phon e Number POWERCHART CBC with Differential (04/10/2012 10:08 AM PHARMACY STUDENT) P athologist Signature Leukocytes 5.0 3.4 - 10.5 POWERCHART X109L Erythrocytes 4.26 3.90 - POWERCHART 5.03 H1221L Hemoglobin 13.6 12.0 - POWERCHART 15.5 GDL Hematocrit 39.4 34.9 - POWERCHART 44.5 MCV 92.5 82.0 - POWERCHART 98.0 FL HX RDW 12.0 11.9 - POWERCHART 15.5 Platelet Count 265 150 - 450 POWERCHART X109L HXDifferential? Auto POWERCHART Specimen (Source) Anatomical Collection Method Collection Time Re ceived Time Location / / Volume Laterality Blood 04/10/2012 10:08 AM PHARMACY STUDENT Elvis Cardenas M.D. LAB BLOOD ADD-ON Performing Organization Address City/State/ZIP Code Phon e Number POWERCHART Troponin T (04/10/2012 10:08 AM PHARMACY STUDENT) P athologist Signature Troponin T, S <0.01 0.00 - 0.10 POWERCHART NGML Comment: 0.03 ? 0.1 ng/mL Intermediate Zone Specimen (Source) Anatomical Collection Method Collection Time Re ceived Time Location / / Volume Laterality Blood 04/10/2012 10:08 AM PHARMACY STUDENT Elvis Cardenas M.D. LAB BLOOD ADD-ON Performing Organization Address City/State/ZIP Code Phon e Number POWERCHART CK (Creatine Kinase) (04/10/2012 10:08 AM PHARMACY STUDENT) P athologist Signature Creatine Kinase 82 21 - 232 UL POWERCHART (CK), S Specimen (Source) Anatomical Collection Method Collection Time Re ceived Time Location / / Volume Laterality Blood 04/10/2012 10:08 AM PHARMACY STUDENT Elvis Cardenas M.D. LAB BLOOD ADD-ON Performing Organization Address City/State/ZIP Code Phon e Number POWERCHART BMP (Basic Metabolic Panel) (04/10/2012 10:08 AM PHARMACY STUDENT) P athologist Signature Sodium, S 138.4 135.0 - POWERCHART 145.0 MML Potassium, S 3.8 3.6 - 4.8 POWERCHART MMOLL Chloride, S 103 100 - 108 POWERCHART MMOLL CO2 Total 25.3 23.0 - 29.0 POWERCHART MMOLL BUN (Blood Urea 13 7 - 18 MGDL POWERCHART Nitrogen), S Creatinine, S 0.68 0.60 - 1.30 POWERCHART MGDL Calcium, Total, 8.8 8.5 - 10.1 POWERCHART S MGDL Anion Gap 10 10 - 20 POWERCHART MMOLL eGFR >60 >=60 POWERCHART Black/ [id number] [place] Glucose 126 70 - 139 POWERCHART MGDL HXeGFR (MDRD) >60 >=60 POWERCHART [id number] Comment: A GFR of <60 mL/min is indicative of chr onic kidney disease. (MDRD calculation valid on patients 18 - 70 years.) Specimen (Source) Anatomical Collection Method Collection Time Re ceived Time Location / / Volume Laterality Blood 04/10/2012 10:08 AM PHARMACY STUDENT Elvis Cardenas M.D. LAB BLOOD ADD-ON Performing Organization Address City/State/ZIP Code Phon e Number POWERCHART Creatine Kinase (CK) MB Isoenzyme (04/10/2012 10:08 AM PHARMACY STUDENT) athologist Signature Creatine 1.7 0.1 - 6.2 POWERCHART Kinase(CK) MB NGML Isoenzyme, S Specimen (Source) Anatomical Collection Method Collection Time Re ceived Time Location / / Volume Laterality Blood 04/10/2012 10:08 AM PHARMACY STUDENT Elvis Cardenas M.D. LAB BLOOD ADD-ON Performing Organization Address City/State/ZIP Code Phon e Number POWERCHART documented in this encounter Visit Diagnoses Not on filedocumented in this encounter Additional Health Concerns Assessment Noted Time PHQ-9 Depression Total Score: 15 02/14/2012 1:41 PM CS T documented as of this encounter
--- OUTSIDE RECORDS SUMMARY | 2021-10-22 11:52 | XMS_ITS | Encounter Summary ---
:1970 Author Organization [facility] Address [address] [place] [address] Care Team Providers Name Role Phone Unavailable Primary Care Provider Unavailable Encounter Details Date Type Department Care Team Description 10/23/2007 Hospital Encounter [facility]X [facility], INPT/OBSRV [facility] [address] [place] [phone] (Wo rk) Social [...] or relatives? How often do you attend jewish or More than 4 times per year 06/22/2019 latter day services? Do you belong to any clubs or No 06/22/2019 organizations such as jewish groups, unions, fraternal or athletic groups, or [...]
--- OUTSIDE RECORDS SUMMARY | 2021-10-22 11:52 | XMS_ITS | Encounter Summary ---
:1970 Author Organization [facility] Address [address] [place] [address] Care Team Providers Name Role Phone Unavailable Primary Care Provider Unavailable Encounter Details Date Type Department Care Team Description 08/09/2009 Hospital Encounter HX [facility] INPT/OBSRV Debi Baez P.A.-C. [address] [place] [address] (Wo rk) Social History Tobacco [...] More than 4 times per year 06/22/2019 episcopalian services? Do you belong to any clubs [...]
--- OUTSIDE RECORDS SUMMARY | 2021-10-22 11:52 | XMS_ITS | Encounter Summary ---
:1970 Author Organization [facility] Address [address] [place] [address] Care Team Providers Name Role Phone Unavailable Primary Care Provider Unavailable Encounter Details Date Type Department Care Team Description 03/11/2013 Hospital Encounter [facility]X [facility] FAMILY ME Juve Christiansen, ALVERTO, C.N.P., D. N.P. [address] [place] [address] (Wo rk) Social History Tobacco [...] or relatives? How often do you attend jehovah's witness or More than 4 times per year 06/22/2019 episcopal services? Do you belong to any clubs or No 06/22/2019 organizations such as jehovah's witness groups, unions, fraternal or athletic groups, or [...] documented as of this encounter Progress Notes Juve Christiansen D.N.P., C.N.P. - 03/11/2013 3:08 PM CST [id number] CHIEF COMPLAINT/REASON FOR VISIT Labs. HISTORY OF PRESENT ILLNESS Patient is a 42-year-old female who presents to the clinic today in which she indicates that she is aware that she is overdue on routine labs include a cholesterol. She actually does have a history of a myocardial infarction on June 18, 2010. It was noted that she had presented to the Emergency Room at that time with the initial troponin of 0.06 as she had just had an onset of chest pain. She was noted have a CK-MB at 5.9 and her ECG was unremarkable. She was transferred to [place] for evaluation of her elevation in cardiac 0 biomarkers. She did proceed with a coronary angiogram which revealed normal coronary arteries and a right side dominance. Following administration of Methergine, she experienced the typical chest pain she had presented with and some throat discomfort and although focal vasospasm was not seen, there was diffuse distal spasm of the ramus intermediate coronary artery. An echocardiogram was then obtained and revealed normal left ventricular size and function with the injection fraction of 58%, with focal inferior lateral wall motion abnormalities in the distribution of the ramus intermediate coronary artery, the same vessel with diffuse spasm with Methergine. She was then started on Verapamil and Simvastatin as initiated. She was coming in todayas she is currently not taking the Simvastatin and then indicates that she is unsure of what her cholesterol levels are at this time. She otherwise indicates that she also has a history of anxiety and depression which also probably contributes to her symptoms and indicates that she would like to trialtherapy for this at this time. She indicates that she is not having suicidal ideation. Denies havingany other further concerns or issues. PAST MEDICAL/SURGICAL HISTORY FAMILY HISTORY Reviewed and brought up-to-date in the EMR. Please see EMR for documentation. MEDICATIONS ALLERGIES Reviewed. Please see chart. PHYSICAL EXAM OBJECTIVE: Patient is alert/oriented x3. HEAD: Normocephalic/atraumatic. PUPILS: GONZALO. OROPHARYNX: Trommald and moist. TMs: Bilateral TMs are clear, bony landmarks noted and WNL. NARES: Patent, no erythema or drainage noted. NECK: No anterior/posterior lymphadenopathy noted. HEART: Regular S1, S2, no murmurs, rubs or gallops noted. LUNGS: Clear to auscultation, no prolonged expiratory phases, wheezing, rales or rhonchi noted. SKIN: Without unusual rashes or suspicious lesions LABORATORY DATA Total cholesterol 271, triglycerides of 71, HDL 85, lipoprotein 815, LDL 151 and TSH of 1.27. PHQ-9 score is noted be a total of 10 with a score of 0 on question #9. IMPRESSION/REPORT/PLAN 1. Hyperlipidemia. 2. Depression. PLAN 1. Hyperlipidemia: Presently discussed overall findings at length with the patient. We did opt to reinstate her simvastatin 20 mg by mouth daily a quantity of 90 with 3 refills are authorized. We will also plan on rechecking cholesterols in 3 months duration in which at that time we will also check her liver function. We will determine the course of action at that time regarding her cholesterol management as I discussed overall cholesterol management would be to target her LDL closer a goal of 70. Patient stated she understands this plan. I do also recommend she follow up with our Oral Health Therapist for further overall wellness improvement. Patient again felt comfortable with this treatment plan. 2. Depression: Presently at this time she is to continue her previously prescribed Prozac 40 mg by mouth daily but again we will plan on having her follow up with Health and Oral Health Therapist for further evaluation to see if we can provide some further improvement regarding her overall depression. We also discussed anxiety at length and the overall need to minimize this as well given her history of her ID. The patient stated she understands the plan. She otherwise denied having any further questions and felt comfortable with this treatment plan. She otherwise denied having any other further concerns or issues. Patient ambulated out of the clinic in no acute distress. PATIENT EDU #1 Patient Education Ready to learn No apparent learning barriers were identified Learning preferences include listening Explained diagnosis and treatment plan Patient/Child/Caregiver expressed understanding of the content. Juve Christiansen D.N.P./F.N.P/solis Electronically Signed By: JUVE CHRISTIANSEN DNP, FNP On: 03/20/2013 12:11 PM Source: 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 Patient was seen in [facility] on 03/11/2013 for initial wellness coaching visit around thearea of lifestyle management. CHIEF COMPLAINT/REASON FOR VISIT Initial wellness coaching visit. SESSION OVERVIEW Today I met with Laura Yeager for the first time in regard to a wellness overhaul. She met with her primary care physician, Juve Christiansen today and in a general visit with her daughter also has some blood work done on herself around her lab work and cholesterol and was surprised to find out that her cholesterol is elevated at 270. She is very nervous about this as she did have a heart attack in 2010 and this was a stress induced heart attack. Throughout our discussion we discussed her level of energy, mood, sleep and stress she rated that she has a 1 out of 10 for level of energy, a 4 out of 10 formood, is 5 out of 10 for sleep and this 6 out of 10 for stress level. She shared that she has very, very low energy and fatigue most days, her mood is compromised in addition to sleeping 10 to 12 hourseach evening. She generally will go to bed around 9 p.m. and wake up between 8:30 and 9 a.m. and still feels tired. She has 2 children, 2 daughters Samreen who is 15 and Aaron who is 13 along with her and animals that she lives with. 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 She ideally would like to feel better overall her around her health, lose 30 pounds, increase her mood, her energy and decreased stress level. She indicatedsome areas of her life that are working, one is that her girls and her relationship with them. She also enjoys her animals, her 3 cats and 2 dogs. She also enjoys working from home currently; was is not working in her life is that she needs more social interaction, her job long-term she wants something that she is more connection and purpose. She is also feeling that her sleep schedule and the amountthat she sleeps is not working for her, her connection and relationship with her is not curre ntly working at this time. She also is challenged with alcohol use of both herself and her . She also would like to have a better diet and nutrition plan. ACTION ITEMS She is interested in creating more of a healthy lifestyle and integrating activity into her life like walking at the [employer] whether it would be in the mornings or in the evenings as well. She alsowould like to cut out alcohol in addition to in integrating more healthy fruits and vegetables into her diet on a daily basis. She also is going to look up the Love Language Book and figure out by taking the online quiz what love language she is and how she gives and receives love and also what way her gives and receives love so they can have better communication and connection. FOLLOWUP PLAN We did discuss for her see the dietitian, Aiyana, as she has some questions around nutrition, carb breakdown and how she can lower her cholesterol in a healthy way. She also wants to continue to meet on a weekly basis moving forward making goals and creating a wellness lifestyle plan that works for her by managing her stress level and also increasing her level of connection with her and overallquality of life. Will complete a goal setting worksheet along with in looking into the Love Language book and will follow up on both of these items next week. Na Balderas Electronically Signed By: NA FONSECA On: 03/16/2013 04:02 PM Source: [facility] Document Id: [id number] documented in this encounter Plan of Treatment Not on filedocumented as of this encounter Visit Diagnoses Not on filedocumented in this encounter Additional Health Concerns Assessment Noted Time PHQ-9 Depression Total Score: 10 03/11/2013 2:22 PM CS T documented as of this encounter
--- OUTSIDE RECORDS SUMMARY | 2021-10-22 11:52 | XMS_ITS | Encounter Summary ---
:1970 Author Organization [facility] Address [address] [place] [address] Care Team Providers Name Role Phone Unavailable Primary Care Provider Unavailable Encounter Details Date Type Department Care Team Description 10/19/2007 Hospital Encounter HX [facility] Y[facility] Lopez, INPT/OBSRV [place] [address] [place] [phone] (Wo rk) Social [...] More than 4 times per year 06/22/2019 moravian services? Do you belong to any clubs or No 06/22/2019 organizations such as zoroastrianism groups, unions, fraternal or athletic groups, or [...]
--- OUTSIDE RECORDS SUMMARY | 2021-10-22 11:52 | XMS_ITS | Encounter Summary ---
:1970 Author Organization [facility] Address [address] [place] [address] Care Team Providers Name Role Phone Unavailable Primary Care Provider Unavailable Encounter Details Date Type Department Care Team Description 07/19/2004 Hospital Encounter HX NO MAPPING Provider, Historical Social History Tobacco Use Types Packs/Day Years [...]
--- OUTSIDE RECORDS SUMMARY | 2021-10-22 11:52 | XMS_ITS | Encounter Summary ---
:1970 Author Organization [facility] Address [address] [place] [address] Care Team Providers Name Role Phone Unavailable Primary Care Provider Unavailable Encounter Details Date Type Department Care Team Description 01/07/2011 Hospital Encounter HX NO MAPPING Akanksha Ladd M.D. [address] [place], [place] [phone] (Wo rk) Social History [...] or relatives? How often do you attend yazdanism or More than 4 times per year 06/22/2019 rastafari services? Do you belong to any clubs or No 06/22/2019 organizations such as yazdanism groups, unions, fraternal or athletic groups, or [...] documented as of this encounter Consult Notes Joel Ladd M.D. - 01/07/2011 12:00 AM CDT CARDCONOS IMPRESSION/REPORT/PLAN 1. History of stress induced acute coronary syndrome, suspect apical ballooning with no evidence of recurrence. 2. Mood disorder. 3. History of dyslipidemia, on statin therapy. RECOMMENDATIONS: The patient is a delightful 40-year-old female who had an abnormal ECG with Dr. Christianson. Those changes have resolved and she now only has evidence of early repolarization which is really a normal variant. I have reassured her about that and she is delighted. She also has likely a mood disorder and I am making a referral to psychiatry for evaluation of her depression. She tells me the depression does impair her ability to do work on a daily basis intermittently and she would like to have this evaluated. The patient's lipids have been controlled and I will defer to Dr. Christianson for further management of that. It was a pleasure to see her. MARGIN CODE: P4 CHIEF COMPLAINT/REASON FOR VISIT Laura is referred by Lindy Christianson for evaluation of possible ECG abnormality. HISTORY OF PRESENT ILLNESS She is a delightful 40-year-old female who suffered a stress induced acute coronary syndrome several years ago and comes back today because Dr. Christianson saw an abnormal ECG on recent general exam. The patient has done reasonably well without much in the way of cardiovascular symptoms. She is not having any frequent chest pain or dyspnea. She denies orthopnea and paroxysmal nocturnal dyspnea. Her major struggle has been with depression. She has been started on antidepressant therapy with Dr. Christianson and Dr. Christianson recommended she speak with me about being referred to a mental health specialist. CURRENT MEDICATIONS Fluoxetine. Aspirin. Simvastatin. Verapamil. Multivitamin. ALLERGIES Morphine. Narcotic analgesics. Percocet. Toradol. SYSTEM REVIEW Please see history of present illness. PAST MEDICAL/SURGICAL HISTORY 1. Coronary artery disease. 2. History of depression. 3. Dyslipidemia. SOCIAL HISTORY She lives at home with her family. 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 No use of tobacco or alcohol. FAMILY HISTORY Family history is negative. VITAL SIGNS HEIGHT: 172 cm WEIGHT: 81 kg HEART RATE: 58 BLOOD PRESSURE: 108/64 PHYSICAL EXAM GENERAL: Normal Body habitus. Well groomed. PSYCHIATRIC: Normal mood and affect. Oriented to person, place, and time. MUSCULOSKELETAL: Gait normal. EXTREMITIES: No clubbing or cyanosis. EYES: No xanthelasma or conjunctivitis. ENT: No oral mucosa pallor or cyanosis. HEART: Normal cardiac palpation. Normal first and second heart sounds. No murmurs, gallops, or rubs. Jugular venous pressure and pulsation normal. No lower extremity edema. VESSELS: No carotid bruits. Normal pedal pulses. LUNGS: Normal respiratory effort and air movement. Clear to auscultation. ABDOMEN: Normal sized liver and spleen. No abdominal masses or tenderness. SKIN: No stasis dermatitis or ulceration. DIAGNOSTICS: I have viewed her ECG from today and it shows sinus bradycardia rate 54, early repolarization changes, otherwise unremarkable. Akanksha Ladd M.D. /latasha CC: Lindy Christianson M.D. Electronically Signed By: Joel LADD MD On: 06/13/2011 09:42 AM Source: [facility] MHSDOLBEYNONRADSYS Document Id: [id number] documented in this encounter Miscellaneous Notes Miscellaneous - Maxime Varghese RSonjaN. 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 last one 3 weeks. Midsternal - nonradiating. Pressure in neck area. SOB. Apical Heart Rate : 58/min (LOW) Systolic Blood Pressure : 108mmHg Diastolic Blood Pressure : 64mmHg NIBP Mean : 79mmHg BP Location : Right upper extremity Height : 172cm(Converted to: 5ft 8inch(es), 67.72inch(es)) Actual Weight : 81kg(Converted to: 178lb 9oz) Dosing Weight Clinic : 81.00kg Clinic BSA : 1.97 Body Mass Index : 27.38kg/m2 MAXIME VARGHESE RN - 01/07/2011 13:50 CDT General Info Information Given By : Patient Preferred Communication Mode : Verbal Languages : Urdu MAXIME VARGHESE RN - 01/07/2011 13:50 CDT Subjective Pain Symptoms : No MAXIME VARGHESE RN - 01/07/2011 13:50 CDT Dependent Habits Tobacco Use/Currently Using : No Smoking Status : Former smoker MAXIME VARGHESE RN - 01/07/2011 13:50 CDT Tobacco Use Grid Type : Cigarettes Last Use : 06/18/2010 MAXIME VARGHESE RN - 01/07/2011 13:50 CDT Alcohol Use : Yes MAXIME VARGHESE RN - 01/07/2011 13:50 CDT Caffeine Use Grid Caffeine Use : Current Type : Soft drinks Frequency : Daily Amount : 1 MAXIME VARGHESE RN - 01/07/2011 13:50 CDT Allergy Allergies (Active) morphine Estimated Onset Date: Unspecified ; Created By: RAVEN DELUNA LPN; Reaction Status: Active ; Category: Drug ; Substance: morphine ; Type: Allergy ; Updated By: RAVEN DELUNA LPN; Reviewed Date: 01/07/2011 13:50 CDT narcotic analgesics Estimated Onset Date: Unspecified ; Reactions: itch ; Created By: NELLIE JOHNSON RN; Reaction Status: Active ; Category: Drug ; Substance: narcotic analgesics ; Type: Sensitivity ; Updated By: NELLIE JOHNSON RN; Reviewed Date: 01/07/2011 13:50 CDT Percocet 5/325 Estimated Onset Date: Unspecified ; Created By: RAVEN DELUNA LPN; Reaction Status:Active ; Category: Drug ; Substance: Percocet 5/325 ; Type: Allergy ; Updated By: RAVEN DELUNA LPN; Reviewed Date: 01/07/2011 13:50 CDT Toradol Estimated Onset Date: Unspecified ; Created By: RAVEN DELUNA LPN; Reaction Status: Active; Category: Drug ; Substance: Toradol ; Type: Allergy ; Updated By: RAVEN DELUNA LPN; Reviewed Date: 01/07/2011 13:50 CDT Health History I Ocular Past Medical History Grid Cataract : Grandparents Glaucoma : Grandparents MAXIME VARGHESE RN - 01/07/2011 13:50 CDT HEENT Peds Health History Grid Ear Infections : Self MAXIME VARGHESE RN - 01/07/2011 13:50 CDT Cardiovascular Past Medical History Grid Chest Pain/Angina : Self, Father Dizziness : Self Heart Attack : Father Heart Disease : Father, Grandparents Heart Failure : Father High Blood Pressure : Father, Sibling High Cholesterol : Sibling, Father Irregular Heartbeat/Palpitations : pt states she had a heart murmur when younger MAXIME VARGHESE RN - 01/07/2011 13:50 CDT Respiratory Past Medical History Grid Frequent Bronchitis : Grandparents Emphysema : Grandparents MAXIME VARGHESE RN - 01/07/2011 13:50 CDT Gastrointestinal Past Medical Hx Grid Heartburn : Children MAXIME VARGHESE RN - 01/07/2011 13:50 CDT [facility] Luc[facility] TechnologiesCHART Document Id: [id number] CDT!54 documented in this encounter Plan of Treatment Not on filedocumented as of this encounter Visit Diagnoses Not on filedocumented in this encounter
--- OUTSIDE RECORDS SUMMARY | 2021-10-22 11:52 | XMS_ITS | Encounter Summary ---
:1970 Author Organization [facility] Address [address] [place] [address] Care Team Providers Name Role Phone Unavailable Primary Care Provider Unavailable Encounter Details Date Type Department Care Team Description 03/11/2013 Hospital Encounter HX [facility] Karen Fernandez, ALVERTO, C.N.P., D. N.P. [address] [place], [place] [phone] (Wo rk) Social History [...]
--- OUTSIDE RECORDS SUMMARY | 2021-10-22 11:52 | XMS_ITS | Encounter Summary ---
:1970 Author Organization [facility] Address [address] [place] [address] Care Team Providers Name Role Phone Unavailable Primary Care Provider Unavailable Encounter Details Date Type Department Care Team Description 06/21/2009 Hospital Encounter HX [facility] Jaymie Lopez M.D. [address] [place] [phone] (Wo rk) Social History Tobacco Use Types [...] or relatives? How often do you attend holiness or More than 4 times per year 06/22/2019 lutheran services? Do you belong to any clubs or No 06/22/2019 organizations such as holiness groups, unions, fraternal or athletic groups, or [...]
--- OUTSIDE RECORDS SUMMARY | 2021-10-22 11:52 | XMS_ITS | Encounter Summary ---
:1970 Author Organization [facility] Address [address] [place] [address] Care Team Providers Name Role Phone Unavailable Primary Care Provider Unavailable Encounter Details Date Type Department Care Team Description 04/01/2007 Hospital Encounter HX [facility] Lopez, INPT/OBSRV [place] [address] [place] [phone] (Wo rk) Social [...] or relatives? How often do you attend amish or More than 4 times per year 06/22/2019 shinto services? Do you belong to any clubs or No 06/22/2019 organizations such as amish groups, unions, fraternal or athletic groups, or [...]
--- OUTSIDE RECORDS SUMMARY | 2021-10-22 11:52 | XMS_ITS | Encounter Summary ---
:1970 Author Organization [facility] Address [address] [place] [address] Care Team Providers Name Role Phone Unavailable Primary Care Provider Unavailable Encounter Details Date Type Department Care Team Description 06/06/2004 - Hospital Encounter HX NO MAPPING Butch Mitchell M.D. 06/07/2004 [address] [place], [place] [address] (Wo rk) Social History [...] More than 4 times per year 06/22/2019 orthodoxy services? Do you belong to any clubs [...]
--- OUTSIDE RECORDS SUMMARY | 2021-10-22 11:52 | XMS_ITS | Encounter Summary ---
:1970 Author Organization [facility] Address [address] [place] [address] Care Team Providers Name Role Phone Unavailable Primary Care Provider Unavailable Encounter Details Date Type Department Care Team Description 06/18/2004 Hospital Encounter HX [facility] Shahriar Marina M.D. [facility] [place], [place] [address] (Wo rk) Social History [...] or relatives? How often do you attend jew or More than 4 times per year 06/22/2019 sabianist services? Do you belong to any clubs or No 06/22/2019 organizations such as jew groups, unions, fraternal or athletic groups, or [...] this encounter Miscellaneous Notes Telephone Encounter - Conversion, Historical Provider Kiran - 06/18/2004 12:00 AM CDT [id number] Patient is returning your call for her surgery results. She had surgery 06/06/2004 with you. Her # [phone]. [facility] Document Id: [id number] documented in this encounter Plan of Treatment Not on filedocumented as of this encounter Visit Diagnoses Not on filedocumented in this encounter
--- OUTSIDE RECORDS SUMMARY | 2021-10-22 11:52 | XMS_ITS | Encounter Summary ---
:1970 Author Organization [facility] Address [address] [place] [address] Care Team Providers Name Role Phone Unavailable Primary Care Provider Unavailable Encounter Details Date Type Department Care Team Description 07/30/2012 Hospital Encounter HX [facility] Javan Mcdonald P.A.-C. [address] [place] [address] (Wo rk) Social History Tobacco [...] More than 4 times per year 06/22/2019 faith services? Do you belong to any clubs [...] Sign Reading Time Taken Comments Blood Pressure 104/66 07/30/2012 5:33 PM CDT Pulse 66 07/30/2012 5:33 PM CDT Temperature - - Respiratory Rate 22 07/30/2012 5:33 PM CDT Oxygen Saturation - - Inhaled Oxygen Concentration - - Weight 82.8 kg (182 lb 8.7 oz) 07/30/2012 5:33 PM CDT Height - - Body Mass Index 27.67 04/24/2012 9:04 AM ZYGLO TECHNICIAN documented in this encounter Progress Notes Estephanie Ellington - 07/30/2012 5:20 PM CDT [id number] CHIEF COMPLAINT/REASON FOR VISIT This is a 41-year-old female seen today concerned of dog scratches on her left forearm. HISTORY OF PRESENT ILLNESS She states that she was scratched yesterday. 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 She has noted some redness and swelling. It is getting very tender and she is alsofeeling a little bit nauseous from it. She is concerned that it is getting infected. CURRENT MEDICATIONS Aspirin 81 mg 1 tablet daily. Multivitamin daily. Prozac 40 mg 1 tablet daily. Vitamin C daily. Vitamin D daily. ALLERGIES Morphine. Narcotics. Percocet. Toradol. PAST MEDICAL/SURGICAL HISTORY Past medical history and surgical history are reviewed in the EMR. VITAL SIGNS Temperature is 36.6, heart rate 66, respirations 22, blood pressure 104/66, O2 sat is 98% on room air, weight 82.8 kg. PHYSICAL EXAMINATION GENERAL: She is alert, interactive and cooperative. Appears to be well- nourished, well-hydrated, in no acute distress. SKIN: On inspection of her left forearm, there are two scratches measuring approximately 7 cm in length both with some surrounding erythema, mild swelling, and a fair amount of tenderness to palpation.There is no drainage noted. IMPRESSION/REPORT/PLAN Infected scratches. PLAN: I am going to treat her with Augmentin 875 mg tabs 1 tablet by mouth 2 times a day for 10 days. She should return if it is not improving, otherwise call or return for any other questions or concerns. Estephanie Ellington P.A.-C./latasha Electronically Signed By: ESTEPHANIE ELLINGTON On: 08/04/2012 12:11 PM Source: [facility] MHSDOLBEYNONRADSYS Document Id: [id number] documented in this encounter Miscellaneous Notes Miscellaneous - Estephanie Ellington - 07/30/2012 7:58 PM CDT Ambulatory Patient Summary [id number] [place] [address] Visit Information Name: GERMAN NOVAK [facility] Number: [id number] Current Date: 07/30/2012 19:58:15 Physicians Attending Provider: ESTEPHANIE ELLINGTON Primary Care Provider: LAVELL BUCHANAN RN, TOBACCO SIEVE OPERATOR Your Medications Here is a list of your medications. It is important to take your medications as directed. Use a pillbox or chart to help remind you to take your medications. Please let your doctor or nurse know if you have problems taking your medications. Medication/Strength Dose Route Frequency Indications/Special Instructions/Comments amoxicillin-clavulanate (Augmentin 875 mg-125 mg oral tablet) 1 tab(s) Oral two times a day for 10 Days fluoxetine (Prozac 40 mg oral capsule) 40 [...] - myocardial infarction Active 04/24/12 NSTEMI 06/2010 Major Depressive Disorder, Recurrent Episode, Unspecified Degree Active Your Upcoming Appointments Date Time Location Reason Provider No Appointments found Your Goals/Additional instructions: Source: [facility] POWERCHART Document Id: [id number] Miscellaneous - Estephanie Ellington - 07/30/2012 7:58 PM CDT Ambulatory Depart Summary [address] [address] Visit Information Name: GERMAN NOVAK [facility] Number: [id number] Visit Date: 07/30/2012 19:58:14 Attending Provider: ESTEPHANIE ELLINGTON Primary Care Provider: LAVELL BUCHANAN RN, TOBACCO SIEVE OPERATOR GERMAN NOVAK has been given the following list of medications: Your Medications It is important to take your medications as directed. Use a pill box or chart to help remind you to take your medications. Please let your doctor or nurse know if you have problems taking your medications. Medication/Strength Dose Route Frequency Indications/Special Instructions/Comments amoxicillin-clavulanate (Augmentin 875 mg-125 mg oral tablet) 1 tab(s) Oral two times a day for 10 Days fluoxetine (Prozac 40 mg oral capsule) 40 [...] your provider for clarification. Additional Information: Source: [facility] POWERCHART Document Id: [id number] Miscellaneous - Lori Coyle, L.P.N. 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 Intake/History Entered On: 07/30/2012 17:36 CDT Performed On: 07/30/2012 17:33 CDT by LORI GOYAL DRAIN TILER Intake Chief Complaint : scratched yesterday on left forearm area is tender, painful, swollen sick to her stomach Temperature Core : 36.6 DegC(Converted to: 97.9 DegF) Peripheral Pulse Rate : 66 /min Respiratory Rate : 22 /min (HI) Heart Rhythm : Regular Systolic Blood Pressure : 104 mmHg Diastolic Blood Pressure : 66 mmHg NIBP Mean : 79 mmHg BP Location : Left upper extremity Blood Pressure Cuff Size : Regular SpO2 : 98 % Oxygen Therapy : Room air Actual Weight : 82.8 kg(Converted to: 182 lb 9 oz) Weight Source : Standing scale Dosing Weight Clinic : 82.8 kg SANDY GOYALFloyd Marie [facility] 07/30/2012 17:33 CDT General Info Information Given By : Patient Languages : East Timorese LORI GOYAL [facility] 07/30/2012 17:33 CDT Subjective Pain Symptoms : Yes LORI GOYAL Cynthia [facility] 07/30/2012 17:33 CDT Pain Pain Assessment Grid Pain 1 Location : Other: left forearm Intensity : 1 JAY JAY LORI Marie [facility] - 07/30/2012 17:33 CDT Dependent Habits Tobacco Use/Currently Using : No Exposure to Tobacco Smoke : Care provider denies smoking in home Smoking Status : Former smoker JAY JAY, LORI Marie [facility] - 07/30/2012 17:33 CDT Tobacco Use Grid Type : Cigarettes Last Use : 04/09/12 JAY JAY LORI Marie [facility] 07/30/2012 17:33 CDT Alcohol Use : Yes LORI GOYAL [facility] 07/30/2012 17:33 CDT Caffeine Use Grid Caffeine Use : Current Type : Soft drinks Frequency : Daily Amount : 1 JAY JAY LORI Marie [facility] - 07/30/2012 17:33 CDT Recreational Drug Use Grid Drug Use : None JAY JAY LORI Marie [facility] 07/30/2012 17:33 CDT Source: [employer] Document Id: [id number] CDT!45 documented in this encounter Plan of Treatment Not on filedocumented as of this encounter Visit Diagnoses Not on filedocumented in this encounter Additional Health Concerns Assessment Noted Time PHQ-9 Depression Total Score: 4 04/24/2012 3:07 PM ZYGLO TECHNICIAN documented as of this encounter
--- OUTSIDE RECORDS SUMMARY | 2021-10-22 11:52 | XMS_ITS | Encounter Summary ---
:1970 Author Organization [facility] Address [address] [place] [address] Care Team Providers Name Role Phone Unavailable Primary Care Provider Unavailable Encounter Details Date Type Department Care Team Description 12/07/2008 Hospital Encounter HX [facility] Jaymie Lopez M.D. [address] [place] [id number] (Wo rk) Social History Tobacco Use Types [...] or relatives? How often do you attend gnosticism or More than 4 times per year 06/22/2019 jehovah's witness services? Do you belong to any clubs or No 06/22/2019 organizations such as gnosticism groups, unions, fraternal or athletic groups, or [...]
--- OUTSIDE RECORDS SUMMARY | 2021-10-22 11:52 | XMS_ITS | Encounter Summary ---
:1970 Author Organization [facility] Address [address] [place] [address] Care Team Providers Name Role Phone Unavailable Primary Care Provider Unavailable Encounter Details Date Type Department Care Team Description 09/14/2007 Hospital Encounter HX [facility] INPT/OBSRV Morelia Reynoso M.D. [address] [place] [id number] (Wo rk) Social History Tobacco [...] More than 4 times per year 06/22/2019 anabaptism services? Do you belong to any clubs [...]
--- OUTSIDE RECORDS SUMMARY | 2021-10-22 11:52 | XMS_ITS | Encounter Summary ---
:1970 Author Organization [facility] Address [address] [place] [address] Care Team Providers Name Role Phone Unavailable Primary Care Provider Unavailable Encounter Details Date Type Department Care Team Description 02/03/2012 Hospital Encounter HX NO MAPPING Akanksha Ladd M.D. [address] [place], [place] [phone] (Wo rk) Social History [...] More than 4 times per year 06/22/2019 spiritism services? Do you belong to any clubs [...] Sign Reading Time Taken Comments Blood Pressure 122/80 02/03/2012 2:52 PM BEARING RING ASSEMBLER Pulse 60 02/03/2012 2:52 PM BEARING RING ASSEMBLER Temperature - - Respiratory Rate - - Oxygen Saturation - - Inhaled Oxygen Concentration - - Weight 84.6 kg (186 lb 8.2 oz) 02/03/2012 2:52 PM BEARING RING ASSEMBLER Height 172 cm (5' 7.72) 02/03/2012 2:52 PM BEARING RING ASSEMBLER Body Mass Index 28.6 02/03/2012 2:52 PM BEARING RING ASSEMBLER documented in this encounter Consult Notes Joel Ladd M.D. - 02/03/2012 2:41 PM CST CARDCONOS IMPRESSION/REPORT/PLAN 1. Calcium channel katie intolerance. 2. Dyslipidemia, query whether statin therapy is warranted. Recommendations: I think we can safely discontinue verapamil in this patient. This should alleviate any of the side effects she is feeling. I also am not confident she needs a statin. She did not have an atherosclerotic related ACS; instead, she had a stress related apical ballooning syndrome. She hadnormal coronaries to my recollection. Dr. Guthrie had suggested in his dismissal summary to her that she should not need to be on lifelong statin therapy. Accordingly, we will stop the simvastatin and see how she does in three months time and remeasure lipids. She will work with Alessandra Hogue to have these done and I will be happy to review with Alessandra at that time. Questions were answered. I would like to see the patient back in one year's time. MARGIN CODE: E4 CHIEF COMPLAINT/REASON FOR VISIT Cardiology consultation. 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 She is having side effects from what sounds like verapamil and is interested in coming off that medication. She is having a dry mouth and fatigue. She has been free of angina and dyspnea or any cardiovascular symptoms. She has had no further hospitalizations. Her life is going well. She saw a physician for her depression at my suggestion in December of 2010 and has been on antidepressant medication since and has been doing well. CURRENT MEDICATIONS Verapamil 240 mg a day. Simvastatin 20 mg a day. Prozac 20 mg a day. Multivitamin daily. Aspirin 81 mg a day. ALLERGIES Morphine. Narcotic analgesics. Percocet. Toradol. SYSTEM REVIEW Review of systems negative except as described in the history of present illness. PAST MEDICAL/SURGICAL HISTORY 1. Coronary artery disease. 2. History of depression. 3. Dyslipidemia. SOCIAL HISTORY She lives at home with her family. 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 No use of tobacco or alcohol. FAMILY HISTORY Family history is negative. VITAL SIGNS BLOOD PRESSURE: 122/80 PULSE: 60 WEIGHT: 84.6 kg HEIGHT: 172 PHYSICAL EXAM GENERAL: Normal Body habitus. Well groomed. PSYCHIATRIC: Normal mood and affect. Oriented to person, place, and time. MUSCULOSKELETAL: Gait normal. EXTREMITIES: No clubbing or cyanosis. EYES: No xanthelasma or conjunctivitis. ENT: No oral mucosa pallor or cyanosis. HEART: Normal cardiac palpation. Normal first and second heart sounds. No murmurs, gallops, or rubs.Jugular venous pressure and pulsation normal. No lower extremity edema. VESSELS: No carotid bruits. Normal pedal pulses. LUNGS: Normal respiratory effort and air movement. Clear to auscultation. ABDOMEN: Normal sized liver and spleen. No abdominal masses or tenderness. SKIN: No stasis dermatitis or ulceration. Akanksha Ladd M.D./latasha Electronically Signed By: Joel LADD MD On: 06/29/2012 03:19 PM Source: [facility] [email or web address] Document Id: [id number] documented in this encounter Miscellaneous Notes Miscellaneous - Maxime Varghese R.N. - 02/03/2012 2:52 PM CST Adult Sister Superior Intake/History Adult Sister Superior Intake/History Entered On: 02/03/2012 14:55 BEARING RING ASSEMBLER Performed On: 02/03/2012 14:52 BEARING RING ASSEMBLER by MAXIME VARGHESE RN Intake Chief Complaint : Here to review meds Onset of Symptoms : Wants to discuss verapamil and simvastatin. Tired. Peripheral Pulse Rate : 60/min Systolic Blood Pressure : 122mmHg Diastolic Blood Pressure : 80mmHg NIBP Mean : 94mmHg Height : 172cm(Converted to: 5ft 8inch(es), 67.72inch(es)) Actual Weight : 84.6kg(Converted to: 186lb 8oz) Dosing Weight Clinic : 84.60kg Clinic BSA : 2.01 Body Mass Index : 28.60kg/m2 MAXIME VARGHESE RN - 02/03/2012 14:52 BEARING RING ASSEMBLER General Info Information Given By : Patient Preferred Communication Mode : Verbal MAXIME VARGHESE RN - 02/03/2012 14:52 BEARING RING ASSEMBLER Subjective Pain Symptoms : No MAXIME VARGHESE RN - 02/03/2012 14:52 BEARING RING ASSEMBLER Dependent Habits Tobacco Use/Currently Using : No Smoking Status : Former smoker MAXIME VARGHESE RN - 02/03/2012 14:52 BEARING RING ASSEMBLER Tobacco Use Grid Type : Cigarettes Last Use : 06/18/2010 MAXIME VARGHESE RN - 02/03/2012 14:52 BEARING RING ASSEMBLER Alcohol Use : Yes MAXIME VARGHESE RN - 02/03/2012 14:52 BEARING RING ASSEMBLER Caffeine Use Grid Caffeine Use : Current Type : Soft drinks Frequency : Daily Amount : 1 MAXIME VARGHESE RN - 02/03/2012 14:52 BEARING RING ASSEMBLER Allergy Allergies (Active) morphine Estimated Onset Date: Unspecified ; Created By: RAVEN DELUNA LPN; Reaction Status: Active ; Category: Drug ; Substance: morphine ; Type: Allergy ; Updated By: RAVEN DELUNA LPN; Reviewed Date: 02/03/2012 14:52 BEARING RING ASSEMBLER narcotic analgesics Estimated Onset Date: Unspecified ; Reactions: itch ; Created By: NELLIE JOHNSON RN; Reaction Status: Active ; Category: Drug ; Substance: narcotic analgesics ; Type: Sensitivity ; Updated By: NELLIE JOHNSON RN; Reviewed Date: 02/03/2012 14:52 BEARING RING ASSEMBLER Percocet 5/325 Estimated Onset Date: Unspecified ; Created By: RAVEN DELUNA LPN; Reaction Status:Active ; Category: Drug ; Substance: Percocet 5/325 ; Type: Allergy ; Updated By: RAVEN DELUNA LPN; Reviewed Date: 02/03/2012 14:52 BEARING RING ASSEMBLER Toradol Estimated Onset Date: Unspecified ; Created By: RAVNE DELUNA LPN; Reaction Status: Active; Category: Drug ; Substance: Toradol ; Type: Allergy ; Updated By: RAVEN DELUNA LPN; Reviewed Date: 02/03/2012 14:52 BEARING RING ASSEMBLER Source: [facility] [employer] Document Id: [id number] ING RING ASSEMBLER documented in this encounter Plan of Treatment Not on filedocumented as of this encounter Visit Diagnoses Not on filedocumented in this encounter
--- OUTSIDE RECORDS SUMMARY | 2021-10-22 11:52 | XMS_ITS | Encounter Summary ---
:1970 Author Organization [facility] Address [address] [place] [address] Care Team Providers Name Role Phone Unavailable Primary Care Provider Unavailable Encounter Details Date Type Department Care Team Description 10/19/2007 - Hospital Encounter HX [facility] Yonas Meadows, 10/20/2007 INPT/OBSRV M.D. [id number] [place] Ramirez [phone] (Wo rk) Social [...] of this encounter Miscellaneous Notes Miscellaneous - Stiven Garza RMargaret. - 02/26/2013 8:53 AM CST Med Management Document Contains Addenda Addendum by STIVEN GARZA RN on 26 February 2013 16:01:16 LOCOMOTIVE LUBRICATING SYSTEMS CLERK noted Addendum by LAVELL BUCHANAN RN, TIP LENGTH CHECKER on 26 February 2013 12:25:19 LOCOMOTIVE LUBRICATING SYSTEMS CLERK Approved with modifications: Order:FLUoxetine (Prozac 40 mg oral capsule) 1 cap(s) PO Daily Qty: 90 cap(s) Refills: 0 Substitutions Allowed Route To Pharmacy - [facility] Signed by LAVELL BUCHANAN RN, TIP LENGTH CHECKER 02/26/2013 12:25:00 From: STIVEN GARZA RN To: LAVELL BUCHANAN RN, TIP LENGTH CHECKER; STIVEN GARZA RN; Sent: 02/26/2013 08:53:31 LOCOMOTIVE LUBRICATING SYSTEMS CLERK Subject: Med Management On hold pending signature Order:FLUoxetine (Prozac 40 mg oral capsule) 1 cap(s) PO Daily Qty: 30 cap(s) Refills: 11 Substitutions Allowed Route To Pharmacy - [facility] review refill. Karen Source: [employer] Document Id: [id number] Miscellaneous - Molly Gomez M.D. - 05/01/2012 9:12 AM LOCOMOTIVE LUBRICATING SYSTEMS CLERK biopsy results From: MOLLY MONTIEL MD To: MOLLY MONTIEL MD; Sent: 05/01/2012 09:12:10 LOCOMOTIVE LUBRICATING SYSTEMS CLERK Subject: biopsy results Spoke with Laura gunter: her biopsy results which showed a seborrheic keratosis. Discussed that this is noncancerous. Patient reports that it is healing well. She has no other concerns. Source: [employer] Document Id: [id number] documented in this encounter Plan of Treatment Not on filedocumented as of this encounter Visit Diagnoses Not on filedocumented in this encounter
--- OUTSIDE RECORDS SUMMARY | 2021-10-22 11:52 | XMS_ITS | Encounter Summary ---
:1970 Author Organization [facility] Address [address] [place] [address] Care Team Providers Name Role Phone Unavailable Primary Care Provider Unavailable Encounter Details Date Type Department Care Team Description 02/13/2012 Hospital Encounter HX [facility] Alessandra Hogue AP RN, C.N.P., D.N.P. [address] [place], [place] [phone] (Wo rk) Social History Tobacco Use Types [...] or relatives? How often do you attend restoration or More than 4 times per year 06/22/2019 church services? Do you belong to any clubs or No 06/22/2019 organizations such as restoration groups, unions, fraternal or athletic groups, or [...] Name Priority Date/Time Associated Diagnosis Comme nts FOLLICLE-STIM Routine 02/13/2012 8:05 AM Results for this HORMONE (FSH), S MONKEY TRAINER procedure a re in the results section. documented in this encounter Results FSH (Follicle-Stimulationg Hormone) (02/13/2012 8:05 AM MONKEY TRAINER) P athologist Signature Follicle-Stim 9.7 INTUL POWERCHART Hormone (FSH), S Comment: -- REFERENCE VALUE -- Premenopausal: 3.9-8.8 ??(Follicular) 4.5-22.5 (Midcycle) 1.8-5.1 ??(Luteal) Postmenopausal: 16.7-113.6 Test Performed by: [facility] [place] [address] Glue Jointer Operator: Babatunde elder III, M.D. Specimen (Source) Anatomical Collection Method Collection Time Re ceived Time Location / / Volume Laterality Blood 02/13/2012 8:05 AM MONKEY TRAINER Ken Tolentino APRN.N.P., D.N.P. LAB BLOOD ADD-ON Performing Organization Address City/State/ZIP Code Phon e Number POWERCHART documented in this encounter Visit Diagnoses Not on filedocumented in this encounter
--- OUTSIDE RECORDS SUMMARY | 2021-10-22 11:53 | XMS_ITS | Encounter Summary ---
:1970 Author Organization [facility] Address [address] [place] [address] Care Team Providers Name Role Phone Unavailable Primary Care Provider Unavailable Encounter Details Date Type Department Care Team Description 06/25/2001 - 06/29/2001 Hospital Encounter HX RST [facility] 2D Social History Tobacco Use Types Packs/Day Years [...] or relatives? How often do you attend rastafarian or More than 4 times per year 06/22/2019 mormonism services? Do you belong to any clubs or No 06/22/2019 organizations such as rastafarian groups, unions, fraternal or athletic groups, or [...] Procedure Name Priority Date/Time Associated Comments Diagnosis ECHOCARDIOGRAM Routine 06/29/2001 8:24 AM CDT MR BRAIN AND MR BRAIN Routine 06/26/2001 1:32 PM Results for this ANGIOGRAM AND MR NECK CDT proced ure are in ANGIOGRAM the results section. EEG ROUTINE - AWAKE AND Routine 06/26/2001 10:16 Results for this SLEEP AM CDT procedure are i n the results section. ECG Routine 06/25/2001 7:20 PM Results f or this CDT procedure are i n the results section. documented in this encounter Results Echocardiogram (06/29/2001 8:24 AM CDT) Anatomical Region Laterality Modality Echocardiography Specimen (Source) Anatomical Collection Method Collection Time Re ceived Time Location / / Volume Laterality 06/29/2001 8:24 AM CDT Historical Provider CV ECHO PROCEDURES MR BRAIN AND MR BRAIN ANGIOGRAM AND MR NECK ANGIOGRAM (06/26/2001 1:32 PM CDT) Anatomical Region Laterality Modality Magnetic Resonance Specimen (Source) Anatomical Collection Method Collection Time Re ceived Time Location / / Volume Laterality 06/26/2001 1:32 PM CDT Narrative 06/26/2001 4:48 PM CDT 26-Jun-2001 13:32:00 ??Exam: MRI Hd &MRA Nk wo&w &MRA Hd wo Indications: MRI MRA head and neck w/uzma ^bolus ??lanisocoria, lt arm ORIGINAL REPORT - 26-Jun-2001 16:48:00 Brain MR with contrast, contrast enhance d neck MRA, [place] MRA: Brain MR: No intracranial hemorrhage, fo mayuri mass, or mass effect. No acute infarct on diffusion. Possible small right occipital arachnoid cyst. Right mastoid inflammatory changes. Oval 1.0cm left extrac alvarial soft tissue lesion, well circum scribed, lateral to the superolateral aspect of the right orbital wall. This may represent a sebaceous cyst. ?? Neck MRI: No major vessel occlusion or s ignificant stenosis. No vascular anomalies. ?? [place] MRA: Normal examination . No evidence of vascular anomaly. No occlusion or significant stenosis. ?? ([id number]) Ind: 110.543 ?? Dia.120 ?? Electronically signed by: ?? Felipe Meadows M.D. [phone] 26-Jun-2001 16: 48 Procedure Note Felipe Meadows M.D., M.B.A. - 06/13/2017 26-Jun-2001 13:32:00 Exam: MRI Hd &MRA N k wo&w &MRA Hd wo Indications: MRI MRA head and neck w/uzma ^bolus lanisocoria, lt arm ORIGINAL REPORT - 26-Jun-2001 16:48:00 Brain MR with contrast, contrast enhance d neck MRA, [place] MRA: Brain MR: No intracranial hemorrhage, fo mayuri mass, or mass effect. No acute infarct on diffusion. Possible small right occipital arachnoid cyst. Right mastoid inflammatory changes. Oval 1.0cm left extracalvarial soft tissue lesion, well circumscribed, lateral to t he superolateral aspect of the right orbital wall. This may represent a sebaceous cyst. Neck MRI: No major vessel occlusion or s ignificant stenosis. No vascular anomalies. [place] MRA: Normal examination . No evidence of vascular anomaly. No occlusion or significant stenosis. ([id number]) Ind: 110.543 Dia.120 Electronically signed by: Felipe Meadows M.D. [phone] 26-Jun-2001 16: 48 jJ Correia M.D. IMG MRI PROCEDURES EEG routine - awake and sleep (06/26/2001 10:16 AM CDT) Specimen (Source) Anatomical Collection Method Collection Time Re ceived Time Location / / Volume Laterality 06/26/2001 10:16 AM CDT [facility] RADIOLOGY SYSTEM - 06/26/2001 10:16 AM CDT ?? 26 Jun 2001 ? Electroencephalography ?Final Report ? Referring Physician: ??Nora ?Date: ??26 Jun 2001 ?? EEG Insulator Cutter And Former: ? Jimenez [id number] [phone] ?? Clinical Problem: ? Spell- r/o s z ?? CLINICAL INTERPRETATION: ??This stud y is within normal limits during wakefulness and sleep. ??No epileptiform activity ?? was seen. ?? EEG CLASSIFICATION: ??Normal (awake and asleep); EKG and pulse oximeter monitors. ?? REPORT: ??The background during wake fulness contains frequent moderate amplitude 10 Hz alpha activity which is symmetric ?? in the posterior head regions and at tenuates bilaterally with eye opening. ??Occasional low amplitude 15-20 Hz beta ?? activity is seen symmetrically in th e anterior head regions. ??Hyperventilation produced no change, and photic ?? stimulation elicited occasional low amplitude symmetric driving responses in the posterior head regions. ?? The patient fell asleep spontaneousl y during the recording, and adequate levels of sleep were attained. ??Sleep ?? activity, including frequent V-waves and spindles, was present and symmetric, and no abnormalities were activated by ?? sleep. ?? An cushion mat maker during the recording showed a normal sinus rhythm with a rate of 52-61/minute, and an oximeter during a ?? portion of the recording showed a sa turation of 97-99 percent. Jimenez Jimenez (Signature date Jun 2001 14:14) Procedure Note Leoncio Jimenez M.D. - 06/23/2017 26 Jun 2001 Electroencephalography Fin al Report Referring Physician: Nora Date : 26 Jun 2001 EEG Insulator Cutter And Former: Jimenez Jimenez [phone] Clinical Problem: Spell- r/o sz CLINICAL INTERPRETATION: This study is within normal limits during wakefulness and sleep. No epileptiform activity was seen. EEG CLASSIFICATION: Normal (awake and a sleep); EKG and pulse oximeter monitors. REPORT: The background during wakefulne ss contains frequent moderate amplitude 10 Hz alpha activity which is symmetric in the posterior head regions and atten uates bilaterally with eye opening. Occasional low amplitude 15-20 Hz beta activity is seen symmetrically in the a nterior head regions. Hyperventilation produced no change, and photic stimulation elicited occasional low amp litude symmetric driving responses in the posterior head regions. The patient fell asleep spontaneously d uring the recording, and adequate levels of sleep were attained. Sleep activity, including frequent V-waves an d spindles, was present and symmetric, and no abnormalities were activated by sleep. An cushion mat maker during the recording melony wed a normal sinus rhythm with a rate of 52-61/minute, and an oximeter during a portion of the recording showed a satur ation of 97-99 percent. Jimenez Jimenez (Signature date Jun 2001 14:14) Historical Provider NEUROLOGY ORDERABLES Performing Organization Address City/State/ZIP Code Phon e Number HX [facility] [address] [place] [address], U ECG 12 Lead (06/25/2001 7:20 PM CDT) Specimen (Source) Anatomical Collection Method Collection Time Re ceived Time Location / / Volume Laterality 06/25/2001 7:20 PM CDT [facility] RADIOLOGY SYSTEM - 06/26/2001 4:46 AM CDT [id number] 19:20 VENTRICULAR RATE 66 Normal sinus rhythm Left atrial enlargement Otherwise normal ECG Previous tracing exists but is not avail able for comparison [id number]^MINA ??^ANIKET Procedure Note Aniket Cruz M.D. - 06/02/2017Form atting of this note might be different from the original. [id number] 19:20 VENTRICULAR RATE 66 Normal sinus rhythm Left atrial enlargement Otherwise normal ECG Previous tracing exists but is not avail able for comparison [id number]^MINA ALVARADO^ANIKET Historical Provider ECG ORDERABLES Performing Organization Address City/State/ZIP Code Phon e Number HX [facility] [address] [place] [address], U SA documented in this encounter Visit Diagnoses Not on filedocumented in this encounter
--- OUTSIDE RECORDS SUMMARY | 2021-10-22 11:53 | XMS_ITS | Encounter Summary ---
:1970 Author Organization [facility] Address [address] [place] [address] Care Team Providers Name Role Phone Unavailable Primary Care Provider Unavailable Encounter Details Date Type Department Care Team Description 06/25/2001 - 06/29/2001 Hospital Encounter HX NO MAPPING Social History [...] or relatives? How often do you attend latter-day or More than 4 times per year 06/22/2019 adventism services? Do you belong to any clubs or No 06/22/2019 organizations such as latter-day groups, unions, fraternal or athletic groups, or [...] Name Priority Date/Time Associated Diagnosis Comme nts CT HEAD WITHOUT IV Routine 06/25/2001 8:33 PM Res ults for this CONTRAST CDT procedure are i n the results section. documented in this encounter Results CT Head without IV Contrast (06/25/2001 8:33 PM CDT) Anatomical Region Laterality Modality Head N/A Computed Tomography Specimen (Source) Anatomical Collection Method Collection Time Re ceived Time Location / / Volume Laterality 06/25/2001 8:33 PM CDT Narrative 06/26/2001 8:55 AM CDT 25-Jun-2001 20:33:00 ??Exam: CT Head wo Indications: Left and right sided weakne ss ORIGINAL REPORT - 25-Jun-2001 21:38:00 ([id number]) ?? Noncontrast head CT is neg ative. Ind: 101.5424 ?? Dia.120 ?? Electronically signed by: ?? Mamta Ford [phone] ([id number]) 25-Jun-2001 2 1:38 I have reviewed the films/images and agr ee with the above interpretation. Electronically signed by: ?? Chan Anaya MD. ??[phone] 26-Jun-2001 08:55 Procedure Note Abdoulaye Anaya M.D. - 06/13/2017Formattin g of this note might be different from the original. 25-Jun-2001 20:33:00 Exam: CT Head wo Indications: Left and right sided weakne ss ORIGINAL REPORT - 25-Jun-2001 21:38:00 ([id number]) Noncontrast head CT is negati ve. Ind: 101.5424 Dia.120 Electronically signed by: Mamta Ford [phone] ([id number]) 25-Jun-2001 2 1:38 I have reviewed the films/images and agr ee with the above interpretation. Electronically signed by: Chan Anaya MD. [phone] 26-Jun-2001 08:55 Alex Ledbetter M.D. IMMary CT PROCEDURES documented in this encounter Visit Diagnoses Not on filedocumented in this encounter
--- OUTSIDE RECORDS SUMMARY | 2021-10-22 11:53 | XMS_ITS | Encounter Summary ---
:1970 Author Organization [facility] Address [address] [place] [address] Care Team Providers Name Role Phone Unavailable Primary Care Provider Unavailable Encounter Details Date Type Department Care Team Description 02/06/1998 - Hospital Encounter HX RST UN[address] 42 OBSTETRICS 02/09/1998 Social History Tobacco Use Types Packs/Day Years [...]
--- OUTSIDE RECORDS SUMMARY | 2021-10-22 11:53 | XMS_ITS | Encounter Summary ---
:1970 Author Organization [facility] Address [address] [place] [address] Care Team Providers Name Role Phone Unavailable Primary Care Provider Unavailable Encounter Details Date Type Department Care Team Description 05/10/2004 Hospital Encounter HX NO MAPPING Provider, Historical [...] or relatives? How often do you attend spiritism or More than 4 times per year 06/22/2019 episcopal services? Do you belong to any clubs or No 06/22/2019 organizations such as spiritism groups, unions, fraternal or athletic groups, or [...]
--- OUTSIDE RECORDS SUMMARY | 2021-10-22 11:53 | XMS_ITS | Encounter Summary ---
:1970 Author Organization [facility] Address [address] [place] [address] Care Team Providers Name Role Phone Unavailable Primary Care Provider Unavailable Encounter Details Date Type Department Care Team Description 02/05/1998 - Hospital Encounter HX RST UNIT 31 02/06/1998 LABOR/DELIV Social History Tobacco Use Types Packs/Day Years [...] More than 4 times per year 06/22/2019 confucianist services? Do you belong to any clubs [...]
--- OUTSIDE RECORDS SUMMARY | 2021-10-22 11:53 | XMS_ITS | Encounter Summary ---
:1970 Author Organization [facility] Address [address] [place] [address] Care Team Providers Name Role Phone Unavailable Primary Care Provider Unavailable Encounter Details Date Type Department Care Team Description 06/06/2004 Hospital Encounter HX NO MAPPING Provider, Historical [...]
--- OUTSIDE RECORDS SUMMARY | 2021-10-22 11:53 | XMS_ITS | Encounter Summary ---
:1970 Author Organization [facility] Address [address] [place] [address] Care Team Providers Name Role Phone Unavailable Primary Care Provider Unavailable Encounter Details Date Type Department Care Team Description 05/11/2004 Hospital Encounter HX [facility] Shahriar Marina M.D. [facility] [place], [place] [address] (Wo rk) Social History [...] or relatives? How often do you attend confucianism or More than 4 times per year 06/22/2019 yazidi services? Do you belong to any clubs or No 06/22/2019 organizations such as confucianism groups, unions, fraternal or athletic groups, or [...] Miscellaneous - Conversion, Historical Provider Ser - 05/11/2004 12:00 AM VP OF GLOBAL MARKETING [id number] SURGERY SCHEDULE CHECKLIST Patient Name: Laura Novak Date of : 1970 Gender: female Patient Phone numbers: [phone] (home) [phone] (work), (cell)[phone] Surgeon: Butch Mitchell M.D. DATE OF SURGERY: 06/06/2004 TIME OF SURGERY: TBD Place of Surgery: [place] Procedure/CPT Code: [id number] Diagnosis (reason for surgery)/Diagnosis Code: No diagnosis found. Case Type: AM ADMIT Pre-op MD: Meghan Date of Pre-op appt: TBD Type of anesthetic: Choice Type of prosthesis / additional equipment: NONE Allergies: Review of patient's allergies indicates not on file. Does patient have latex allergy? No Diabetes? No Social History Tobacco/Alcohol use not on file Taking herbal supplements? No Coumadin/blood thinner? No SCHEDULING INFORMATION Scheduled with: by:Diana on: 05/11/2004 Entered into Department Log/Book: YES INSURANCE INFORMATION: Payor[place] Product Type: Medicaid Note: This is the primary coverage, but no account was found for this location or the patient's primary location. Insurance/MA/WC ID number: [id number] Group #: {:if no insurance information please forward to [facility] CREDIT} Precertification Required? {to be completed by finance:[id number]} Credit Approval: {:to be completed by credit} DISCHARGE PLANNING ASSESSMENT: Plan after Discharge: {[facility] RESIDENT:[id number]} Resident of: {[facility]:455653} How are you getting home/to other facility after discharge from hospital? Telephone #: TRIGGERS FOR MORE COMPLETE DISCHARGE PLANS: {[facility] DC TRIGGER PLANS:[id number]} Person responsible for consent for procedure? {[facility] RESPONSIBLE PERSONS:807174} Patient {does:680675::does not} need further assessment to determine ability to provide for continued care and for activities of daily living (ADL's). RECOMMENDED DISCHARGE PLAN: Concerns: Referrals Completed: PREOP EDUCATION Date of Pre-0p Class: Hospital Information given: {YES IS DEFAULT/NO :[id number]::YES} Pt Education booklets: Pre-op letter for OOT pre-ops: Order for H&P consult: Have you had a heart attack or stroke in the last 6 months? NO Have you had heart surgery or a heart vessel balloon angiogaphy in the last 5 months? NO Do you have heart valve disease? NO Do you have congestive heart failure(CHF)? NO Have you had an angina attack in the last month requiring a trip to the emergency room or hospitalization? NO Have you had an asthma attack in the last month requiring a trip to the emergency room or hospitalization? NO Do you have chronic obstructive pulmonary disease (COPD)? NO Are you on home oxygen (O2) therapy? NO Do you weigh over 250 pounds? NO Do you have sleep apnea? NO Have you ever had a tracheostomy in your neck for breathing? NO Have you ever had a cervical neck fusion? NO Have you ever had cirrhosis of the liver? NO Do you require kidney dialysis? NO Do you have a personal or family history of severe allergic reactions to anesthetic agents? NO Do you have a personal family history of malignant hyperthermia or atypical pseudocholinsterase disease? NO If the patient answers YES to any of the above questions route letter to the following address (cut and paste into 'ROUTE TO' section) : C RW ANESTHESIOLOGY P RW SSC CREDIT P RW SSC SCHEDULING P RW P RW PATIENT ACCOUNTS ([facility]) Source[facility] Document Id: [id number] documented in this encounter Plan of Treatment Not on filedocumented as of this encounter Visit Diagnoses Not on filedocumented in this encounter
--- OUTSIDE RECORDS SUMMARY | 2021-10-22 11:53 | XMS_ITS | Encounter Summary ---
:1970 Author Organization [facility] Address [address] [place] [address] Care Team Providers Name Role Phone Unavailable Primary Care Provider Unavailable Encounter Details Date Type Department Care Team Description 02/04/1998 Hospital Encounter HX [facility] LABOR/DELIV Social History Tobacco Use Types Packs/Day [...] More than 4 times per year 06/22/2019 baptism services? Do you belong to any clubs [...]
--- NOTE | 2021-10-22 13:24 | W.ANESCHARGE ---
Anesthesia Charges Start Date/Time Anesthesia Start Date: 10/22/21 Anesthesia Start Time: 12:20 Stop Date/Time Anesthesia Stop Date: 10/22/21 Anesthesia Stop Time: 13:21 Summary Emergency: No
--- NOTE | 2021-10-22 13:27 | W.ANESCHARGE ---
Anesthesia Charges Start Date/Time Anesthesia Start Date: 10/22/21 Anesthesia Start Time: 12:20 Stop Date/Time Anesthesia Stop Date: 10/22/21 Anesthesia Stop Time: 13:21 Summary Emergency: No
== END 2021-10-22 11:43 | disposition home or self-care (01) ==
LOC: OP CLINIC 11:43
PROVIDERS: PCP Nurse Practitioner Family; Visit Provider Surgery
DX: Z12.11 Encounter for screening for malignant neoplasm of colon (principal); K62.1 Rectal polyp; Z83.71 Family history of colonic polyps
CPT/HCPCS: 00811; 45385; 88305

== ENCOUNTER 2022-01-22 10:04 | Outpatient (CLI) | payer BC, OTHER, SELFPAY ==
--- OUTSIDE RECORDS SUMMARY | 2022-01-22 10:07 | XMS_ITS | Encounter Summary ---
:[address] [facility] Address [address] [place] [address] Care Team Providers Name Role Phone Tiffanie Mcgovern APRN, COMPUTER SECURITY SPECIALIST Primary Care Provider [phone] Reason for Visit Reason Comments Med Refill Encounter Details Date Type Department Care Team Description 06/11/2021 Refill SE Endocrinology Muthusamy, Postablative hypothyroidism [address] [place] [address] Social History Tobacco Use Types Packs/Day Years [...] hypothyroidism documented in this encounter Care Teams Electrician Aircraft Relationship Specialty Start Date End Date Tiffanie Mcgovern, WELDER FIRST CLASS, COMPUTER SECURITY SPECIALIST PCP - General Family Medicine 02/27/21 [address] [facility] [place] [address] documented as of this encounter
--- OUTSIDE RECORDS SUMMARY | 2022-01-22 10:07 | XMS_ITS | Clinical Summary ---
:1970 Author Organization [facility] Address [address] [place] [address] Care Team Providers Name Role Phone Tiffanie Mcgovern APRN, PRIVATE EQUITY ASSOCIATE Primary Care Provider [phone] Allergies Active Allergy Reactions Severity Noted Date [...] and states h er daughter is a employment trainer. Also trying to lose weight and [...] Weight does trend down in the warmer fri. Urinary incontinence 04/28/2020 Overview: Did not need [...] Encounters Date Type Specialty Care Team Description 11/22/2021 Refill Family Medicine Roopa Lopez MD Pos tablative hypothyroidism from Last 3 Months Immunizations Name Administration [...] Comments Blood Pressure 126/84 02/27/2021 9:40 AM RECRUITER MANAGER Pulse 72 02/27/2021 9:40 AM RECRUITER MANAGER Temperature 37.1 ??C (98.8 ??F) 02/27/2021 9:40 AM RECRUITER MANAGER Respiratory Rate 12 02/27/2021 9:40 AM RECRUITER MANAGER Oxygen Saturation 96% 02/27/2021 9:40 AM RECRUITER MANAGER Inhaled Oxygen Concentration - - Weight 86.4 kg (190 lb 8 oz) 02/27/2021 9:40 AM RECRUITER MANAGER Height 173.3 cm (5' 8.23) 09/20/2020 4:05 PM CDT Body Mass Index 28.77 09/20/2020 4:05 PM CDT Plan of Treatment Health Maintenance Due Date Last Done Comments CT Colonography 1970 Colonoscopy 1970 Sigmoidoscopy 1970 iFOBT 1970 Zoster Vaccines (1 of 2) 08/16/2019 COVID-19 Vaccine (3 - Booster 09/30/2020 05/03/2020, for Moderna series) 04/05/2020 Mammogram 11/07/2020 11/08/2019, 10/27/2018, 10/27/2018 Colorectal Cancer Screening 10/22/2024 FIT-DNA 10/22/2024 10/22/2021, 05/11/2020 HPV Vaccines Aged Out No longer eligib le based on patient 's age to complete this topic Pap Smear Discontinued Pneumococcal Vaccine: Aged Out No longer eligible Pediatrics (0 to 5 Years) and ba sed on patient's age At-Risk Patients (6 to 64 to com plete this topic Years) Insurance Payer Benefit Plan / Subscriber ID Effective Dates Phone Addre ss Type Group BCBS OF BCBS OF [id number] 2020-[place] [address] [address] [place] [address] Care Teams Bowling Alley Floors Installer Relationship Specialty Start Date End Date Tiffanie Mcgovern, SUPERVISOR CONCRETE PIPE PLANT, PRIVATE EQUITY ASSOCIATE PCP - General Family Medicine 02/27/[address] [place] [address] [place] [id number]
--- OUTSIDE RECORDS SUMMARY | 2022-01-22 10:07 | XMS_ITS | Encounter Summary ---
:1970 Author Organization [facility] Address [address] [place] [address] Care Team Providers Name Role Phone Tiffanie Mcgovern APRN, MANAGER ASSURANCE Primary Care Provider [phone] Reason for Visit Reason Comments Med Refill Encounter Details Date Type Department Care Team Description 09/13/2021 Refill [place]Roopa Gandhi, GUSTAVO (generalized anxiety [address] [facility] 20 MD disorder) [place], [place] [address] [phone] [place] [address] Social History Tobacco Use Types Packs/Day Years [...] disorder documented in this encounter Care Teams Tile Layer Drainage Relationship Specialty Start Date End Date Tiffanie Mcgovern, STOCK HOLDER, MANAGER ASSURANCE PCP - General Family Medicine 02/27/[address] [place] [address] [place] [address] documented as of this encounter
--- OUTSIDE RECORDS SUMMARY | 2022-01-22 10:07 | XMS_ITS | Encounter Summary ---
:1970 Author Organization [facility] Address [address] [place] [address] Care Team Providers Name Role Phone Mynor Mcgovern APRN, LINING CLOSER Primary Care Provider [phone] Reason for Visit Reason Comments Med Refill Encounter Details Date Type Department Care Team Description 08/20/2021 Refill [place] Roopa Lopez, GUSTAVO (generalized anxiety [address] [facility] 20 MD disorder) [place], [place] [address] [phone] [place] [address] Social History Tobacco Use Types Packs/Day Years [...] disorder documented in this encounter Care Teams Trim Attacher Relationship Specialty Start Date End Date Mynor Mcgovern APRN, LINING CLOSER PCP - General Family Medicine 02/27/[address] [place] [address] documented as of this encounter
--- OUTSIDE RECORDS SUMMARY | 2022-01-22 10:08 | XMS_ITS | Encounter Summary ---
:1970 Author Organization [facility] Address [address] [place] [address] Care Team Providers Name Role Phone Roopa Lopez MD Primary Care Provider Encounter Details Date Type Department Care Team Description 10/10/2020 Orders Only Roopa Caldwell Other migraine without [address] MD Raheel status migrainosus, not [place] [phone] intractable (Primary [phone] [facility]) [place] [address] Social History Tobacco Use Types Packs/Day Years [...] Primary documented in this encounter Care Teams Leather Cutter Relationship Specialty Start Date End Date Roopa Lopez MD PCP - General Family Medicine 07/15/19 02/26/[address] [place] [address] documented as of this encounter
--- OUTSIDE RECORDS SUMMARY | 2022-01-22 10:08 | XMS_ITS | Encounter Summary ---
:1970 Author Organization [facility] Address [address] [place] [address] Care Team Providers Name Role Phone Roopa Lopez MD Primary Care Provider Reason for Visit Reason Onset Date Comments RX 04/28/2020 Encounter Details Date Type Department Care Team Description 04/28/2020 Telephone [place] Catalina Pennington APRN, KYLE RX 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 Called and informed pharmacy and patient. T GUARD Telephone Encounter - Chelsea Romero RN - 04/28/2020 11:23 AM CST Pharmacy informed. T GUARD Telephone Encounter - Catalina Pennington APRN, CNP - 04/28/2020 10:44 AM CST Max 200mg/24hr. T GUARD Telephone Encounter - Chelsea Romero RN - 04/28/2020 10:01 AM CST Pharmacy has a question on patients Imitrex rx. They wanted to know if there is a max daily dose forthis medication? T GUARD Telephone Encounter - Tammi Bar - 04/28/2020 9:32 AM CST Pharmacy has questions on RX given yesterday. Please call [phone]. T GUARD documented in this encounter Plan of Treatment Not on filedocumented as of this encounter Visit Diagnoses Not on filedocumented in this encounter Care Teams Ballpoint Pen Cartridge Tester Relationship Specialty Start Date End Date Roopa Lopez MD PCP - General Family Medicine 07/15/19 02/26/21 [address] [place] [address] documented as of this encounter
--- OUTSIDE RECORDS SUMMARY | 2022-01-22 10:08 | XMS_ITS | Encounter Summary ---
:[address] [facility] Address [address] [place] [address] Care Team Providers Name Role Phone Roopa Lopez MD Primary Care Provider Encounter Details Date Type Department Care Team Description 09/20/2020 Telephone [place] Roopa Lopez MD [address] [facility] 20 [address] [facility] [place], [place] [address] [place], [place] [phone] [address] (Wo rk) Social History Tobacco Use Types [...] informed. Telephone Encounter - Catalina Pennington APRN, CORRECTIONAL SUPERVISING COOK - 09/21/2020 9:48 AM CDT Sent oral toradol 10mg Q6h prn. Hold other nsaids while using. If gets upset stomach may need to usepepcid or omeprazole (antacids). To family lauryn. Telephone Encounter - Lili Carranza LPN - [...] Primary documented in this encounter Care Teams Braided Band Assembler Relationship Specialty Start Date End Date Roopa Lopez MD PCP - General Family Medicine 07/15/19 02/26/[address] [place] [address] documented as of this encounter
--- OUTSIDE RECORDS SUMMARY | 2022-01-22 10:08 | XMS_ITS | Encounter Summary ---
:1970 Author Organization [facility] Address [address] [place] [address] Care Team Providers Name Role Phone Roopa Lopez MD Primary Care Provider Reason for Visit Reason Comments Med Refill Encounter Details Date Type Department Care Team Description 05/22/2020 Refill [place], Insomnia, unspecified [address] [place] type [place] [phone] [phone] [place] [address] Social History Tobacco Use Types Packs/Day Years [...] type documented in this encounter Care Teams Metal Riveting Machine Operator Relationship Specialty Start Date End Date Roopa Lopez MD PCP - General Family Medicine 07/15/19 02/26/[address] [place] [address] documented as of this encounter
--- OUTSIDE RECORDS SUMMARY | 2022-01-22 10:08 | XMS_ITS | Encounter Summary ---
:1970 Author Organization [facility] Address [address] [place] [address] Care Team Providers Name Role Phone Roopa Lopez MD Primary Care Provider Encounter Details Date Type Department Care Team Description 02/14/2020 Lab [place] Guerre[place] Postablative hypothyroidism [address] [place] [address] Social History Tobacco [...] 4:01 PM Postablative Results f or this RESIDENTIAL BUILDER hypothyroidism procedure are in the results section. T4, FREE Routine 02/14/2020 4:01 PM Postablative Results f or this RESIDENTIAL BUILDER hypothyroidism procedure are in the results section. documented in this encounter Results T4, free (02/14/2020 4:01 PM RESIDENTIAL BUILDER) P athologist Signature Free T4 1.07 0.78 - 2.19 02/15/2020 [facility] ng/dL 3:25 PM [facility] Comment: The results from this [...] Laterality Blood 02/14/2020 4:01 PM 0 2:29 RESIDENTIAL BUILDER PM RESIDENTIAL BUILDER Valerie Major MD LAB BLOOD ORDERABLES Performing Organization Address City/[facility] Code Phon e Number [facility] [address] [place] [address] TSH (02/14/2020 4:01 PM RESIDENTIAL BUILDER) athologist Signature TSH, Sensitive 0.93 0.46 - 02/15/2020 [facility] 4.68 mIU/L 3:36 PM [facility] Comment: The results from this [...] Laterality Blood 02/14/2020 4:01 PM 0 2:29 RESIDENTIAL BUILDER PM RESIDENTIAL BUILDER Valerie Major MD LAB BLOOD ORDERABLES Performing Organization Address [facility] Phon e Number [facility] [address] [place] [address] documented in this encounter Visit Diagnoses Diagnosis Postablative hypothyroidism Other postablative hypothyroidism documented in this encounter Care Teams Concession Cashier Relationship Specialty Start Date End Date Roopa Lopez MD PCP - General Family Medicine 07/15/19 02/26/21 [address] [facility] 20 [place] [address] documented as of this encounter
--- OUTSIDE RECORDS SUMMARY | 2022-01-22 10:08 | XMS_ITS | Encounter Summary ---
:1970 Author Organization [facility] Address [address] [place] [address] Care Team Providers Name Role Phone Tiffanie Mcgovern APRN, ELECTRIC NEEDLE SPECIALIST Primary Care Provider [phone] Reason for Visit Reason Comments Med Refill Encounter Details Date Type Department Care Team Description 12/28/2019 Refill SE Endocrinology Muthusamy, Edema, unspecified type [address] [facility] [place] [address] Social History Tobacco Use Types Packs/Day Years [...] #90, 1 [facility] E-Prescribing Status: Receipt confirmed by pharmacy (11/14/2019 ??8:55 AM CDT) Refills available at requesting pharmacy. Pharmacy notified. documented in this encounter Plan of Treatment Not on filedocumented as of this encounter Visit Diagnoses Diagnosis Edema, unspecified type documented in this encounter Additional Health Concerns Infection Onset Date Last Indicated Resolved Time COVID-19 Rule Out 02/18/2020 02/18/2020 02/18/2020 4:4 1 PM RN HOME HEALTH COVID-19 Rule Out 02/27/2021 02/27/2021 02/27/2021 10: 40 AM RN HOME HEALTH COVID-19 Confirmed 02/27/2021 02/27/2021 05/28/2021 8: 17 PM CDT documented as of this encounter Care Teams Endband Sizer Relationship Specialty Start Date End Date Tiffanie Mcgovern APRN, ELECTRIC NEEDLE SPECIALIST PCP - General Family Medicine 02/27/[address] [place] [address] [place] [address] documented as of this encounter
--- OUTSIDE RECORDS SUMMARY | 2022-01-22 10:08 | XMS_ITS | Encounter Summary ---
:1970 Author Organization [facility] Address [address] [place] [address] Care Team Providers Name Role Phone Roopa Lopez MD Primary Care Provider Encounter Details Date Type Department Care Team Description 02/18/2020 Lab [facility] Screening examination for [address] [facility] [place] inf ectious disease [address] [place] [address] Social History Tobacco Use Types [...] Res ults for this RNA DETECTION, V GERIATRICS PHYSICIAN examination for procedur e are in infectious disease the resul ts section. documented in this encounter Results SARS Coronavirus 2 RNA detection, v (02/18/2020 7:58 AM GERIATRICS PHYSICIAN) [facility] Method Time Signature SARS Covid Nasopharyngeal 02/18/2020 [facility] specimen 4:41 PM GERIATRICS PHYSICIAN LABORATORIES source Patient Race White 02/18/2020 [facility] 4:41 PM GERIATRICS PHYSICIAN LABORATORIES Patient DECLINE 02/18/2020 [facility] Ethnicity 4:41 PM GERIATRICS PHYSICIAN LABORATORIES SARS CoV2 Undetected Undetected 02/18/2020 [facility] RNA 4:41 PM GERIATRICS PHYSICIAN LABORATORIES Comment: SARS-CoV-2 RNA absent. This result does not rule out COVID-19 in the patient, as the sensitiv ity of the test depends on the timing of the specimen co llection and the quality of the specimen. Result should b e correlated with patient's history and clinical presentat ion. Method - 02/18/2020 4:41 PM GERIATRICS PHYSICIAN [facility] Comment: THFSH- This test uses the TaqPath COVID- 19 Combo Kit (Stem Murray.) and is performed on the InstantQ magnetic particle processor and Applied Penzata Fast Dx Real-Time PCR System. It has rec eived Emergency Use Authorization (EUA) by the U.S. Food and Drug Administration. Performance characterist ics were verified by [facility] in a manner consistent wi CLIA requirements. Fact sheets for this Emergency Use Autho rization (EUA) can be found at the following links: https://www.fda.gov/media/415896/downloa d for Healthcare Providers https://www.fda.gov/media/470042/downloa d for Patients Test Performed by: [place] [address] Medical Equipment Sales: Butch Guerrero M.D. Ph. D.; CLIA# [id number] Specimen Anatomical Collection Method Collection Time Receive d Time (Source) Location / / Volume Laterality Swab 02/18/2020 7:58 AM 0 9:28 (Nasopharyngeal) GERIATRICS PHYSICIAN AM GERIATRICS PHYSICIAN Lina Goldstein APRN, FIREBOAT OPERATOR LAB MOLECULAR DIAGNOSTICS O RDERABLES Performing Organization Address City/State/ZIP Code Phon e Number [facility] see result attachment for specific address documented in this encounter Visit Diagnoses Diagnosis Screening examination for infectious dis ease Screening examination for unspecified in fectious disease documented in this encounter Additional Health Concerns Infection Onset Date Last Indicated Resolved Time COVID-19 Rule Out 02/18/2020 02/18/2020 02/18/2020 4:4 1 PM GERIATRICS PHYSICIAN documented as of this encounter Care Teams Electric Shipyard Operator Relationship Specialty Start Date End Date Roopa Lopez MD PCP - General Family Medicine 07/15/19 02/26/[address] [place] [address] documented as of this encounter
--- OUTSIDE RECORDS SUMMARY | 2022-01-22 10:08 | XMS_ITS | Encounter Summary ---
:1970 Author Organization [facility] Address [address] [place] [address] Care Team Providers Name Role Phone Roopa [...] 8:30 AM Postablative Results f or this HEAD CONCIERGE hypothyroidism procedure are in the results section. T4, FREE Routine 02/21/2021 8:30 AM Postablative Results f or this HEAD CONCIERGE hypothyroidism procedure are in the results section. documented in this encounter Results T4, free (02/21/2021 8:30 AM HEAD CONCIERGE) P athologist Signature Free T4 1.24 0.78 - 2.19 02/21/2021 [facility] ng/dL 2:16 PM [facility] Comment: The results from this [...] Volume Laterality Blood 02/21/2021 8:30 AM 1 HEAD CONCIERGE 12:39 PM HEAD CONCIERGE Valerie Major MD LAB BLOOD ORDERABLES Performing Organization Address City/[facility] Phon e Number [facility] [address] [place] [address] TSH (02/21/2021 8:30 AM HEAD CONCIERGE) athologist Signature TSH, Sensitive 2.17 0.46 - 02/21/2021 [facility] 4.68 mIU/L 2:17 PM [facility] Comment: The results from this [...] Volume Laterality Blood 02/21/2021 8:30 AM 1 HEAD CONCIERGE 12:39 PM HEAD CONCIERGE Valerie Major MD LAB BLOOD ORDERABLES Performing Organization Address City/[facility] Phon e Number [facility] [address] [place] [address] documented in this encounter Visit Diagnoses Diagnosis Postablative hypothyroidism Other postablative hypothyroidism documented in this encounter Care Teams Principal Ios Developer Relationship Specialty Start Date End Date Roopa Lopez MD PCP - General Family Medicine 07/15/19 02/26/[address] [place] [address] documented as of this encounter
--- OUTSIDE RECORDS SUMMARY | 2022-01-22 10:08 | XMS_ITS | Encounter Summary ---
:1970 Author Organization [facility] Address [address] [place] [address] Care Team Providers Name Role Phone Roopa Lopez MD Primary Care Provider Reason for Visit Reason Comments Follow-up Encounter Details Date Type Department Care Team Description 06/29/2020 Office Visit Rogelio Guerrero Catalina Pennington A, Moderate episode of recurren t major depressive disorder (HCC) (Primary Dx); [address] OBSTETRICS GYNECOLOGY PHYSICIAN, BENEFITS TECHNICIAN Anxiety; ERNESTO Savage [address] Insomnia, unspecified type; [phone] [place], [place] Migraine with aura and without status migrainosus, not intractable; [address] Weight disorder; [phone] Urinary inconti nence, unspecified type (Work) Social [...] ??? Follow-up HPI Patient presents to the [place] [facility] for questions about weight gain and [...] and states her daughter is a computer trainer. Also trying to lose weight and [...] type documented in this encounter Care Teams Regional Climate Change Analyst Relationship Specialty Start Date End Date Roopa Lopez MD PCP - General Family Medicine 07/15/19 02/26/[address] [place] [address] documented as of this encounter
--- OUTSIDE RECORDS SUMMARY | 2022-01-22 10:08 | XMS_ITS | Encounter Summary ---
:1970 Author Organization [facility] Address [address] [place] [address] Care Team Providers Name Role Phone Roopa Lopez MD Primary Care Provider Reason for Visit Reason Comments Med Refill Encounter Details Date Type Department Care Team Description 07/05/2020 Refill SE Endocrinology Muthusamy, Postablative hypothyroidism [address] [place] [address] Social History Tobacco Use Types Packs/Day Years [...] Martinez LPN - 07/05/2020 7:47 AM CDT [facility] is requesting medication. Previous script was sent to [facility] Last visit in provider department: [...] hypothyroidism documented in this encounter Care Teams Brand Analyst Relationship Specialty Start Date End Date Roopa Lopez MD PCP - General Family Medicine 07/15/19 02/26/[address] [place] [address] documented as of this encounter
--- OUTSIDE RECORDS SUMMARY | 2022-01-22 10:08 | XMS_ITS | Encounter Summary ---
:1970 Author Organization [facility] Address [address] [place] [address] Care Team Providers Name Role Phone Tiffanie Mcgovern APRN, MEDICAL/SURGERY REGISTERED NURSE Primary Care Provider [phone] Reason for Visit Reason Comments Med Refill Encounter Details Date Type Department Care Team Description 04/03/2021 Refill [place] Roopa Lopez MD Anxiety [address] [place], [place] [address] [place], [place] [phone] (Wo rk) Social History Tobacco Use Types [...] AM CST Rx fax[facility] to [facility] TH COACH Telephone Encounter - Chelsea Romero RN - 04/04/2021 10:53 AM CST Please fax Rx to pharmacy. TH COACH Telephone Encounter - Celsa Childs MA - [...] Last 2 Encounters: 02/27/21 126/84 09/20/20 126/88 TH COACH documented in this encounter Plan of Treatment Not on filedocumented as of this encounter Visit Diagnoses Diagnosis Anxiety Anxiety state, unspecified documented in this encounter Additional Health Concerns Infection Onset Date Last Indicated Resolved Time COVID-19 Confirmed 02/27/2021 02/27/2021 05/28/2021 8: 17 PM CDT documented as of this encounter Care Teams Tool Dresser Relationship Specialty Start Date End Date Tiffanie Mcgovern, KISS MIXER, MEDICAL/SURGERY REGISTERED NURSE PCP - General Family Medicine 02/27/[address] [place] [address] ERNESTO MACEDO [id number] documented as of this encounter
--- OUTSIDE RECORDS SUMMARY | 2022-01-22 10:08 | XMS_ITS | Encounter Summary ---
:[address] [facility] Address [address] [place] [address] Care Team Providers Name Role Phone Roopa Lopez MD Primary Care Provider Reason for Visit Reason Onset Date Comments Lab request 02/14/2020 Encounter Details Date Type Department Care Team Description 02/14/2020 Telephone SE Endocrinology Valerie Major MD Lab request [address] [place] [address] Social History Tobacco Use Types Packs/Day Years [...] of above message and verbalized an understanding. ASSEMBLY WIRER Telephone Encounter - Valerie Maojr MD - 02/14/2020 12:10 PM CST Check TSH and FT4 now. Order placed. ASSEMBLY WIRER Telephone Encounter - Jo Ann Anaya MA [...] if she can go in for labs. ASSEMBLY WIRER documented in this encounter Plan of Treatment Not on filedocumented as of this encounter Results TSH (02/14/2020 4:01 PM PRE ASSEMBLY WIRER) athologist Signature TSH, Sensitive 0.93 0.46 - 02/15/2020 [facility] L 4.68 mIU/L 3:36 PM PRE ASSEMBLY WIRER [facility] Comment: The results from this [...] Laterality Blood 02/14/2020 4:01 PM 0 2:29 PRE ASSEMBLY WIRER PM PRE ASSEMBLY WIRER Valerie Major MD LAB BLOOD ORDERABLES Performing Organization Address City/State/ZIP Code Phon e Number [facility] [address] [place] [address] T4, free (02/14/2020 4:01 PM PRE ASSEMBLY WIRER) athologist Signature Free T4 1.07 0.78 - 2.19 02/15/2020 [facility] ng/dL 3:25 PM PRE ASSEMBLY WIRER [facility] Comment: The results from this [...] Laterality Blood 02/14/2020 4:01 PM 0 2:29 PRE ASSEMBLY WIRER PM PRE ASSEMBLY WIRER Valerie Major MD LAB BLOOD ORDERABLES Performing Organization Address City/State/ZIP Code Phon e Number [facility] [address] [place] [address] documented in this encounter Visit Diagnoses Diagnosis Postablative hypothyroidism - Primary Other postablative hypothyroidism documented in this encounter Care Teams Wild Animal Caretaker Relationship Specialty Start Date End Date Roopa Lopez MD PCP - General Family Medicine 07/15/19 02/26/[address] [place] [address] documented as of this encounter
--- OUTSIDE RECORDS SUMMARY | 2022-01-22 10:08 | XMS_ITS | Encounter Summary ---
:1970 Author Organization [facility] Address [address] [place] [address] Care Team Providers Name Role Phone Roopa Lopez MD Primary Care Provider Reason for Visit Reason Onset Date Comments Covid Triage 02/18/2020 Encounter Details Date Type Department Care Team Description 02/18/[address] [facility] Jeyson Keating APRN, Covid Triage [address] [facility] [address] [place] [address] [place], [place] [phone] (Wo rk) Social History Tobacco Use [...] this encounter Progress Notes Jeyson Keating APRN, EMPLOYMENT OFFICER - 02/18/2020 7:50 AM CST 02/18/20 [address] [...] request atelehealth visit when calling to schedule. DEALER documented in this encounter Plan of Treatment Not on filedocumented as of this encounter Results SARS Coronavirus 2 RNA detection, v (02/18/2020 7:58 AM ART DEALER) [facility] Method Time Signature SARS Covid Nasopharyngeal 02/18/2020 [facility] specimen 4:41 PM [facility] source Patient Race White 02/18/2020 [facility] 4:41 PM [facility] Patient DECLINE 02/18/2020 [facility] Ethnicity 4:41 PM [facility] SARS CoV2 Undetected Undetected 02/18/2020 [facility] RNA 4:41 PM [facility] Comment: SARS-CoV-2 RNA absent. This result does not rule out COVID-19 in the patient, as the sensitiv ity of the test depends on the timing of the specimen co llection and the quality of the specimen. Result should b e correlated with patient's history and clinical presentat ion. Method - 02/18/2020 4:41 PM ART DEALER [facility] Comment: THFSH- This test uses the TaqPath COVID- 19 Combo Kit ([employer] Hadash Murray.) and is performed on the SponsorHub magnetic particle processor and Applied AroundWire 7500 Fast Dx Real-Time PCR System. It has rec eived Emergency Use Authorization (EUA) by the U.S. Food and Drug Administration. Performance characterist ics were verified by [facility] in a manner consistent wi CLIA requirements. Fact sheets for this Emergency Use Autho rization (EUA) can be found at the following links: https://www.fda.gov/media/509997/downloa d for Healthcare Providers https://www.fda.gov/media/930735/downloa d for Patients Test Performed by: [facility] [address] [address] Room Attendants: Butch Guerrero M.D. Ph. D.; CLIA# [id number] Specimen Anatomical Collection Method Collection Time Receive d Time (Source) Location / / Volume Laterality Swab 02/18/2020 7:58 AM 0 9:28 (Nasopharyngeal) ART DEALER AM ART DEALER Lina Goldstein APRN, EMPLOYMENT OFFICER LAB MOLECULAR DIAGNOSTICS O RDERABLES Performing Organization Address City/State/ZIP Code Phon e Number [facility] see result attachment for specific address documented in this encounter Visit Diagnoses Diagnosis Screening examination for infectious dis ease - Primary Screening examination for unspecified in fectious disease documented in this encounter Care Teams Customer Services Supervisor Relationship Specialty Start Date End Date Roopa Lopez MD PCP - General Family Medicine 07/15/19 02/26/[address] [place] [address] documented as of this encounter
--- OUTSIDE RECORDS SUMMARY | 2022-01-22 10:08 | XMS_ITS | Encounter Summary ---
:1970 Author Organization [facility] Address [address] [place] [address] Care Team Providers Name Role Phone Roopa Lopez MD Primary Care Provider Reason for Referral Consultation (Routine) - Closed Specialty Diagnoses / Procedures Referred By Contact Refer red To Contact Diagnoses Urinary incontinence, unspecified type Catalina Pennington APRN, CNP [facility] [address] [place] [address] [place] [address] Fax: Referral ID Status Reason Start Date Expiration Date Visits Requ ested Visits Authorized [id number] Closed 04/27/2020 04/27/2021 1 1 PULLER Reason for Visit Reason Comments Annual Exam Headache Bladder leakage menopause Encounter Details Date Type Department Care Team Description 04/27/2020 Office Visit Robert Guerrero Catalina Pennington Well adult exam (Primary Dx) ; [address] [facility] [address] [place] Mixed hyperlipidemia; ERNESTO Ramirez 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 (HCC); [address] Anxiety; [phone] Migraine withou t aura and without status migrainosus, not intractable; (Work) Graves disease; [phone] Urinary inconti nence, unspecified type; (Fax) History [...] Comments Blood Pressure 130/67 04/27/2020 3:24 PM CAUL PULLER Pulse 57 04/27/2020 3:24 PM CAUL PULLER Temperature 36.5 ??C (97.7 ??F) 04/27/2020 3:24 PM CAUL PULLER Respiratory Rate 18 04/27/2020 3:24 PM CAUL PULLER Oxygen Saturation - - Inhaled Oxygen Concentration - - Weight 91.4 kg (201 lb 8 oz) 04/27/2020 3:24 PM CAUL PULLER Height 173.3 cm (5' 8.23) 04/27/2020 3:24 PM CAUL PULLER Body Mass Index 30.43 04/27/2020 3:24 PM CAUL PULLER documented in this encounter Patient Instructions Patient InstructionsTjennifer Pennington APRN, KYLE - 04/27/2020 3:20 PM CST Increase zocor to 40mg nightly [place] oil in evening. Consider vitamin E 800iu [...] spasm. Refer to PT for pelvic exercises. PULLER documented in this encounter Progress Notes Catalina Pennington APRN, CNP - 04/27/2020 3:20 PM CST Subjective Patient ID: Laura Novak is a 49 y.o. female. Chief Complaint Patient presents with ??? Annual Exam ??? Headache ??? Bladder leakage ??? menopause HPI Patient presents to the [facility] for a physical exam. She has concern [...] (gastroesophageal reflux disease) ??? Headache History ??? NC (myocardial infarction) (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 No stents required. No [...] file Gets together: Not on file Attends congregational service: Not on file Active member of [...] Patient Instructions Increase zocor to 40mg nightly [place] oil in evening. Consider vitamin E 800iu [...] spasm. Refer to PT for pelvic exercises. PULLER documented in this encounter Miscellaneous Notes Assessment & Plan Note - Catalina Pennington APRN, CNP - 04/28/2020 12:41 PM CAUL PULLER Associated Problem(s): Urinary incontinence Oxybutynin XL 5 mg daily. Refer to physical therapy. PULLER Assessment & Plan Note - Catalina Pennington APRN, CNP - 04/28/2020 12:40 PM CAUL PULLER Associated Problem(s): Essential hypertension Doing well no changes needed. If needed in the future, consider amlodipine 5- 10mg daily. PULLER Assessment & Plan Note - Catalina Pennington APRN, CNP - 04/28/2020 12:38 PM CAUL PULLER Associated Problem(s): Migraine with aura and without [...] any discomfort rightnow. Follow up in 3mons. PULLER documented in this encounter Plan of Treatment Scheduled Referrals Name Type Priority Associated Diagnoses Order S chedule Ambulatory External Outpatient Referral Routine Urinary O rdered: Referral incontinence, 04/27/2020 unspecified type documented as of this encounter Procedures Procedure Name Priority Date/Time Associated Diagnosis Comme nts COLOGUARD Routine 05/11/2020 6:30 AM Well adult exam Result s for this CAUL PULLER procedure are i n the results section . documented in this encounter Results Microalbumin/Creatinine Ratio (06/29/2020 8:30 AM CDT) athologist Signature Microalbumin,m 7.1 0.0 - 16.6 06/29/2020 [facility] g/day mg/L 3:01 PM CDT [facility] Comment: . Creatinine, Urine 185 mg/dL 06/29/2020 3:02 PM CDT [facility] Comment: No established reference range. Microalb/Creat Ratio 4 0 - 24 mg/g 06/29/2020 3:0 2 PM CDT [facility] Specimen Anatomical Collection Method Collection Time Receive d Time (Source) Location / / Volume Laterality Urine 06/29/2020 8:30 AM 1 CDT 12:33 PM CDT Catalina Pennington APRN, CNP LAB URINE ORDERABLES Performing Organization Address City/State/ZIP Code Phon e Number [facility] [address] [place] [address] Magnesium (06/27/2020 8:27 AM CDT) athologist Signature Magnesium 2.0 1.6 - 2.3 06/27/2020 [facility] mg/dL 2:13 PM CDT [facility] Specimen Anatomical Collection Method Collection Time Receive d Time (Source) Location / / Volume Laterality Blood 06/27/2020 8:27 AM 1 CDT 12:50 PM CDT Catalina Pennington APRN, CNP LAB BLOOD ORDERABLES Performing Organization Address City/State/ZIP Code Phon e Number [facility] [address] [place] [address] Lipid panel (06/27/2020 8:27 AM CDT) athologist Signature Cholesterol 166 0 - 199 06/27/2020 [facility] mg/dL 2:13 PM [facility] Comment: Recommended by National Cholesterol Education Program (ATP III) -------- Cholesterol Ranges -------- <200 ?Desirable 200-239 ? Borderline high >=240 ? High Triglycerides 126 0 - 149 mg/dL 06/27/2020 2:13 PM T [facility] Comment: -------- TRIG Ranges -------- <150 ?Normal 150-199 ? Borderline high 200-499 ? High >=500 ? Very high HDL 58 40 - 250 mg/dL 06/27/2020 2:13 PM T [facility] Comment: -------- HDL Ranges -------- <40 ?Low 40-59 ?Normal >=60 ? Optimal LDL Calculated 83 0 - 99 mg/dL 06/27/2020 2:13 PM T [facility] Comment: -------- LDL Ranges -------- <100 ? Optimal 100-129 ?Near optimal/above op timal 130-159 ?Borderline high 160-189 ?High >=190 ?Very high Fasting? Yes 06/27/2020 8:31 AM T [facility] Specimen Anatomical Collection Method Collection Time Receive d Time (Source) Location / / Volume Laterality Blood 06/27/2020 8:27 AM CDT 12:50 PM CDT Catalina Pennington APRN, CNP LAB BLOOD ORDERABLES Performing Organization Address [facility] e [facility] [address] [place] [phone] Hemoglobin A1c (06/27/2020 8:27 AM CDT) P [...] CNP LAB BLOOD ORDERABLES Performing Organization Address [facility] alex Campos [facility] [address] [place] [phone] (ABNORMAL) Comprehensive metabolic panel (06/27/2020 8:27 AM CDT) Patholo gist Method Time Signature Total Protein 7.3 6.3 - 8.2 06/27/2020 [facility] g/dL 2:13 PM [facility] Albumin, Serum 4.2 3.5 - 5.0 06/27/2020 [facility] g/dL 2:13 PM [facility] Total Bilirubin <0.7 0.1 - 1.0 06/27/2020 [facility] mg/dL 2:13 PM [facility] AST 26 8 - 43 U/L 06/27/2020 [facility] 2:13 PM [facility] Alkaline 66 38 - 128 06/27/2020 [facility] Phosphatase U/L 2:13 PM [facility] ALT (SGPT) 19 0 - 34 U/L 06/27/2020 [facility] 2:13 PM [facility] Sodium 139 135 - 145 06/27/2020 [facility] mEq/L 2:13 PM [facility] Potassium 4.1 3.5 - 5.1 06/27/2020 [facility] mEq/L 2:13 PM [facility] Chloride 106 98 - 107 06/27/2020 [facility] mEq/L 2:13 PM [facility] CO2 27 22 - 29 06/27/2020 [facility] mmol/L 2:13 PM [facility] BUN 17 5 - 25 06/27/2020 [facility] mg/dL 2:13 PM [facility] Creatinine 0.7 0.4 - 1.2 06/27/2020 [facility] mg/dL 2:13 PM [facility] Glucose 105 (H) 70 - 100 06/27/2020 [facility] mg/dL 2:13 PM [facility] Calcium, Total,S 9.3 8.4 - 10.2 06/27/2020 [facility] mg/dL 2:13 PM [facility] Specimen Anatomical Collection Method Collection Time Receive d Time (Source) Location / / Volume Laterality Blood 06/27/2020 8:27 AM CDT 12:50 PM CDT Catalina Pennington APRN, PHYSICAL THERAPY SUPERVISOR LAB BLOOD ORDERABLES Performing Organization Address City/State/ZIP Code Phon e Number [facility] [address] [place] [phone] Cologuard (05/11/2020 6:30 AM CAUL PULLER) [facility] gist Method Time Signature Cologuard Negative Not Applicable [employer] (formerly [employer]) Comment: A negative result indicates a low [...] Flores al, N Eng l J Med 2014;370(14):2418-4695) The norm al value (reference range) for this assay is negative. COLOGUARD RE-SCREENING RECOMMENDATION: Periodic routine colorectal cancer screening is an important part of preventive healthcare for asymptomatic persons at average risk for colorectal cancer. Following a negative Cologuard result, the [place] Cancer Society and U.S. Multi-Society Task Force screening guidelines recommend a Cologua rd re-screening interval of 3 years. References: [place] Cancer Society (ACS). Colorectal cancer prevention and early detection. [place], [place]: [place] Cancer Soc iety; [updated 2015Jul 01]. https://www.cancer.org/cancer/ekqdt-zsbhvy-xbcuys/iqodqzxhq-xfabfaipq-fythbql/ac s-recommendations.html. Accessed November 07, 2017; Jake DK, Clarissa CR, Sung GutierrezK, Colorectal Cancer Screening: Recommendations for Ph ysicians and Patients from the U.S. Multi-Society Task Force on Colorectal Cancer Screening, Am J Gastroenterology 2017; 112:0195-0943. TEST TYPE: Composite algorithmic analysi s of [...] terval of every 3 years by the [place] Cancer Society and U.S. Multi-Society Task Force. [...] be accessed at the follow ing location: www.Neurologix.Chooos/results. Additional description of the Cologuard test process, warnings and precautions can be found at www.cologuardtest.com. Rx only. [facility], [address] [place] [address]., [place], [place], [facility], , Clinical Laboratory Sales Apprentice, BRIANNA HANDY, , [place] NO: [id number] Specimen Anatomical Collection Method Collection Time Receive d Time (Source) Location / / Volume Laterality Stool 05/11/2020 6:30 AM CAUL PULLER 12:30 PM CAUL PULLER Catalina Pennington HAZMAT CDL DRIVER, PHYSICAL THERAPY SUPERVISOR LAB BODY FLUIDS AND STOOLS O RDERABLES Performing Organization Address City/State/ZIP Code [facility] e Number [facility], [address] [place] [address] [facility] [address] documented in this [...] 30 mg Right Ventrogluteal injection 30 mg CAUL PULLER 30 mg, Intramuscular, Once, On Rani 04/27/20 at 1700, For 1 dose, In office documented in this encounter Care Teams Head Cook Relationship Specialty Start Date End Date Roopa Lopez MD PCP - General Family Medicine 07/15/19 02/26/[address] [place] [address] documented as of this encounter
--- OUTSIDE RECORDS SUMMARY | 2022-01-22 10:08 | XMS_ITS | Encounter Summary ---
:1970 Author Organization [facility] Address [address] [place] [address] Care Team Providers Name Role Phone Roopa Lopez MD Primary Care Provider Reason for Visit Reason Comments Med Refill Encounter Details Date Type Department Care Team Description 11/14/2020 [place] Insomnia, unspecified [address] [place] type Rogelio Guerrero [place] [address] [phone] ERNESTO [place] [address] Social History Tobacco Use Types Packs/Day Years [...] Telephone Encounter - Kathleen Martinez LPN - 11/14/2020 6:34 AM CDT Last visit in provider department: 09/20/2020 Last visit requested medication was discussed: 06/29/2020 with Catalina Pennington APRN, SQL SSIS DEVELOPER Upcoming appointment with provider: Visit date not found Last Rx: 06/29/2020 # 90, 3 refills Requested Prescriptions Pending Prescriptions Disp Refills ??? traZODone (DESYREL) 50 MG tablet [Pharmacy Med Name: TRAZODONE HCL 50MG TABS] 90 tablet 3 Sig: TAKE 1 TO 2 TABLETS BY MOUTH EVERY NIGHT documented in this encounter Plan of Treatment Not on filedocumented as of this encounter Visit Diagnoses Diagnosis Insomnia, unspecified type documented in this encounter Care Teams Glass Setter Relationship Specialty Start Date End Date Roopa Lopez MD PCP - General Family Medicine 07/15/19 02/26/21 [address] [place] [address] documented as of this encounter
--- OUTSIDE RECORDS SUMMARY | 2022-01-22 10:08 | XMS_ITS | Encounter Summary ---
:1970 Author Organization [facility] Address [address] [place] [address] Care Team Providers Name Role Phone Roopa Lopez MD Primary Care Provider Encounter Details Date Type Department Care Team Description 07/06/2020 Orders Only SE Endocrinology Muthusamy, Postablative [address] [place] [address] Social History Tobacco Use Types Packs/Day Years [...] hypothyroidism documented in this encounter Care Teams Pay Station Department Manager Relationship Specialty Start Date End Date Roopa Lopez MD PCP - General Family Medicine 07/15/19 02/26/[address] [place] [address] documented as of this encounter
--- OUTSIDE RECORDS SUMMARY | 2022-01-22 10:08 | XMS_ITS | Encounter Summary ---
:1970 Author Organization [facility] Address [address] [place] [address] Care Team Providers Name Role Phone Roopa Lopez MD Primary Care Provider Reason for Visit Reason Onset Date Comments Naproxen Rx 05/01/2020 Encounter Details Date Type Department Care Team Description 05/01/2020 Telephone Robert Guerrero Catalina Pennington, ALVERTO, SUPERVISOR CIGAR PROCESSING Naproxen Rx [address] [place] [address] [place] [address] [phone] (Wo rk) Social History Tobacco Use Types [...] - 05/01/2020 10:34 AM CST Patient informed. HEN AND COUNTER WORKER Telephone Encounter - Catalina Pennington APRN, CNP - 05/01/2020 10:26 AM CST Sent a different naproxen. Also she don't have to use Asprin 81mg daily as discussed I sent a my chart message but looks like she have not read it. HEN AND COUNTER WORKER Telephone Encounter - [place] Romero RN - 05/01/2020 10:21 AM CST Pharmacy called stating the Naproxen EC is expensive and the patient did not pick this up. They are wondering they can substitute for the regular Naproxen or if it has to be delayed release? HEN AND COUNTER WORKER Telephone Encounter - [place] Romero RN - 05/01/2020 9:36 AM CST No answer at pharmacy. HEN AND COUNTER WORKER Telephone Encounter - Alyce Shah - 05/01/2020 8:35 AM CST Martin with [facility] called requesting to talk with a nurse about Pt's Naproxen delayed release Rx. Please call Martin at [phone] to advise. HEN AND COUNTER WORKER documented in this encounter Plan of Treatment Not on filedocumented as of this encounter Visit Diagnoses Diagnosis Migraine with aura and without status mi grainosus, not intractable - Primary documented in this encounter Care Teams Developer Architect Relationship Specialty Start Date End Date Roopa Lopez MD PCP - General Family Medicine 07/15/19 02/26/[address] [place] [address] documented as of this encounter
--- OUTSIDE RECORDS SUMMARY | 2022-01-22 10:08 | XMS_ITS | Encounter Summary ---
:1970 Author Organization [facility] Address [address] [place] [address] Care Team Providers Name Role Phone Roopa Lopez MD Primary Care Provider Reason for Visit Reason Comments Hypothyroidism Graves' Disease Encounter Details Date Type Department Care Team Description 03/29/2020 [facility] Endocrinology [place], Postablative hypothyroidism (Primary Dx); [address] [place] Valerie Graves disease; [place] [address] Stress at home [phone] Social History Tobacco Use Types Packs/Day Years [...] CST 1. Call COVID triage line at [phone] 2. Continue the same dose of Levothyroxine 3. Recheck thyroid labs in 3 months [employer] documented in this encounter Progress Notes Valerie [...] aged 20 and 16. 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 Review of systems: As in HPI. All [...] compliantly. 4. Patient was given contact for [place] [address] triage line with acute onset symptoms including myalgias. 5. Also with ongoing stress in life, recommended patient to communicate with us if desiring to proceed with psychology counseling at any time.. Patient understands and agrees with the above plan. [facility] [employer] Belem Moraes - 03/29/2020 9:00 AM CST Scheduled. Patient will do labs in 3 months in [place] [facility] [employer] [facility] documented in this encounter Plan of Treatment [...] / Volume Laterality Blood 09/25/2020 8:21 AM CDT 12:58 PM CDT Valerie Major MD LAB BLOOD ORDERABLES Performing Organization Address [facility] Phon e Number [facility] [address] [place] [address] T4, free (09/25/2020 8:21 AM CDT) P [...] / Volume Laterality Blood 09/25/2020 8:21 AM CDT 12:58 PM CDT Valerie Major MD LAB BLOOD ORDERABLES Performing Organization Address [facility] Phon e Number [facility] [address] [place] [phone] (ABNORMAL) TSH (06/27/2020 8:27 AM CDT) Analysis [...] MD LAB BLOOD ORDERABLES Performing Organization Address [facility] e Number [facility] [address] [place] [address] T4, free (06/27/2020 8:27 AM CDT) athologist Signature Free T4 1.31 0.78 - 2.19 06/27/2020 [facility] ng/dL 2:53 PM CDT [facility] Comment: [...] MD LAB BLOOD ORDERABLES Performing Organization Address City/[facility] Phon e Number [facility] [address] [place] [address] documented in this encounter Visit Diagnoses Diagnosis Postablative hypothyroidism - Primary Other postablative hypothyroidism Graves disease Toxic diffuse goiter without mention of thyrotoxic crisis or storm Stress at home documented in this encounter Care Teams Rainbow Trout Farm Manager Relationship Specialty Start Date End Date Roopa Lopez MD PCP - General Family Medicine 07/15/19 02/26/[address] [place] [address] documented as of this encounter
--- OUTSIDE RECORDS SUMMARY | 2022-01-22 10:08 | XMS_ITS | Encounter Summary ---
:1970 Author Organization [facility] Address [address] [place] [address] Care Team Providers Name Role Phone Roopa Lopez MD Primary Care Provider Encounter Details Date Type Department Care Team Description 09/25/2020 Lab Robert Guerrero Postablative hypothyroidism [address] [place] [address] Social History Tobacco Use Types [...] MD LAB BLOOD ORDERABLES Performing Organization Address City/[facility]/ZIP Code Phon e Number [facility] [address] [place] [phone] TSH (09/25/2020 8:21 AM CDT) athologist Signature [...] Organization Address City/State/ZIP Code Phon e Number [facility] [address] [place] [address] documented in this encounter Visit Diagnoses Diagnosis Postablative hypothyroidism Other postablative hypothyroidism documented in this encounter Care Teams Hose Finisher Relationship Specialty Start Date End Date Roopa Lopez MD PCP - General Family Medicine 07/15/19 02/26/21 [address] [facility] [address] [place] [address] documented as of this encounter
--- OUTSIDE RECORDS SUMMARY | 2022-01-22 10:08 | XMS_ITS | Encounter Summary ---
:1970 Author Organization [facility] Address [address] [place] [address] Care Team Providers Name Role Phone Roopa Lopez MD Primary Care Provider Encounter Details Date Type Department Care Team Description 03/27/2020 Lab Robert Guerrero Postablative hypothyroidism [address] [place] [address] Social History Tobacco Use Types [...] 9:58 AM Postablative Results f or this MINES INSPECTOR hypothyroidism procedure are in the results section. T4, FREE Routine 03/27/2020 9:58 AM Postablative Results f or this MINES INSPECTOR hypothyroidism procedure are in the results section. documented in this encounter Results TSH (03/27/2020 9:58 AM MINES INSPECTOR) P athologist Signature TSH, Sensitive 0.87 0.46 - 03/28/2020 [facility] 4.68 mIU/L 3:06 PM MINES INSPECTOR [facility] Comment: The results from [...] Volume Laterality Blood 03/27/2020 9:58 AM 1:18 MINES INSPECTOR PM MINES INSPECTOR Valerie Major MD LAB BLOOD ORDERABLES Performing Organization Address [facility] Code Phon e Number [facility] [address] [place] [phone] T4, free (03/27/2020 9:58 AM MINES INSPECTOR) P athologist Signature Free T4 1.17 0.78 - 2.19 03/28/2020 [facility] ng/dL 2:36 PM MINES INSPECTOR [facility] Comment: The results from [...] Volume Laterality Blood 03/27/2020 9:58 AM 1:18 MINES INSPECTOR PM MINES INSPECTOR Valerie Major MD LAB BLOOD ORDERABLES Performing Organization Address City/[facility]/ZIP Code Phon e Number [facility] [address] [place] [phone] documented in this encounter Visit Diagnoses Diagnosis Postablative hypothyroidism Other postablative hypothyroidism documented in this encounter Care Teams Tariff Compiler Relationship Specialty Start Date End Date Roopa Lopez MD PCP - General Family Medicine 07/15/19 02/26/[address] [place] [address] documented as of this encounter
--- OUTSIDE RECORDS SUMMARY | 2022-01-22 10:08 | XMS_ITS | Encounter Summary ---
:1970 Author Organization [facility] Address [address] [place] [address] Care Team Providers Name Role Phone Roopa Lopez MD Primary Care Provider Reason for Visit Reason Comments tb testing Encounter Details Date Type Department Care Team Description 06/27/2020 Immunization Robert Guerrero Visit for TB skin test [address] (Primary Dx) ERNESTO [place] [address] Social History Tobacco [...] Primary documented in this encounter Care Teams Manager R D Relationship Specialty Start Date End Date Roopa Lopez MD PCP - General Family Medicine 07/15/19 02/26/[address] [place] [address] documented as of this encounter
--- OUTSIDE RECORDS SUMMARY | 2022-01-22 10:08 | XMS_ITS | Encounter Summary ---
:1970 Author Organization [facility] Address [address] [place] [address] Care Team Providers Name Role Phone Roopa Lopez MD Primary Care Provider Reason for Visit Reason Comments Migraine Encounter Details Date Type Department Care Team Description 09/20/2020 Office Visit Roopa Caldwell Migraine without status migr ainosus, not intractable, unspecified migraine type (Primary Dx); [address] MD Raheel [facility] [place], [place] [address] [facility] [address] [place] [address] Social History Tobacco Use Types Packs/Day Years [...] [facility] and at [...] dose documented in this encounter Care Teams In Home Nanny Relationship Specialty Start Date End Date Roopa Lopez MD PCP - General Family Medicine 07/15/19 02/26/[address] [place] [address] documented as of this encounter
--- OUTSIDE RECORDS SUMMARY | 2022-01-22 10:08 | XMS_ITS | Encounter Summary ---
:1970 Author Organization [facility] Address [address] [place] [address] Care Team Providers Name Role Phone Tiffanie Mcgovern APRN, MINE INSPECTOR Primary Care Provider [phone] Reason for Visit Reason Comments Cough Generalized Body Aches Nasal Congestion Encounter Details Date Type Department Care Team Description 02/27/2021 Office Visit [place] Ngo, COVID-19 virus infection (Pr imary Dx); [address] [place]NESTO [place] [address] [place] [address] [place] [phone] [address] Social History Tobacco Use Types Packs/Day Years [...] Comments Blood Pressure 126/84 02/27/2021 9:40 AM CHIEF MEDICAL DIRECTOR Pulse 72 02/27/2021 9:40 AM CHIEF MEDICAL DIRECTOR Temperature 37.1 ??C (98.8 ??F) 02/27/2021 9:40 AM CHIEF MEDICAL DIRECTOR Respiratory Rate 12 02/27/2021 9:40 AM CHIEF MEDICAL DIRECTOR Oxygen Saturation 96% 02/27/2021 9:40 AM CHIEF MEDICAL DIRECTOR Inhaled Oxygen Concentration - - Weight 86.4 kg (190 lb 8 oz) 02/27/2021 9:40 AM CHIEF MEDICAL DIRECTOR Height - - Body Mass Index 28.77 [...] specific instructions regarding their return to work. [facility] was notified of positive test result. F MEDICAL DIRECTOR documented in this encounter Progress Notes Feliciano [...] or constipation. She just flew back from [place], [place] a couple days ago. Was celebrating daughter's 23rd birthday and went out a bit. 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 The sinus drainage and lower abdominal [...] specific instructions regarding their return to work. [facility] was notified of positive test result. Return if symptoms worsen or fail to improve. Note created using voice dictation software. F MEDICAL DIRECTOR documented in this encounter Plan of Treatment Not on filedocumented as of this encounter Procedures Procedure Name Priority Date/Time Associated Diagnosis Comme nts FLU(A/B), RUDOLPH ID Routine 02/27/2021 10:00 AM Cough R esults for this NOW, PCR CHIEF MEDICAL DIRECTOR procedure are i n the results section. COVID-19, RUDOLPH ID Routine 02/27/2021 10:00 AM Cough R esults for this NOW, PCR CHIEF MEDICAL DIRECTOR procedure are i n the results section. documented in this encounter Results Flu, Rudolph ID Now, PCR (02/27/2021 10:00 AM CHIEF MEDICAL DIRECTOR) Analysis Performed At [facility] Time Signature Flu Source Nasal 02/27/2021 [facility] 10:40 AM CHIEF MEDICAL DIRECTOR FALL[place] Influenza A, NEGATIVE 02/27/2021 [facility] JONES PCR 10:40 AM CHIEF MEDICAL DIRECTOR [place] Influenza B, NEGATIVE Negative 02/27/2021 [facility] JONES PCR 10:40 AM CHIEF MEDICAL DIRECTOR [place] Flu Interp see below 02/27/2021 [facility] 10:40 AM CHIEF MEDICAL DIRECTOR FALLS Comment: Flu A Viral RNA Not Detected; Flu B Viral RNA Not Detected. Testing was performed using the Rudolph I D NOW A & B 2 Assay. Specimen Anatomical Collection Method Collection Time Receive d Time (Source) Location / / Volume Laterality Swab 02/27/2021 10:00 02/27/2021 AM CHIEF MEDICAL DIRECTOR 10:07 AM CHIEF MEDICAL DIRECTOR Feliciano Anderson MD LAB MOLECULAR DIAGNOSTICS OR DERABLES Performing Organization Address City/State/ZIP Code Phon e Number [facility] ROBERT GUERRERO [address] [place] [address] (ABNORMAL) Covid-19, Rudolph ID Now, PCR (02/27/2021 10:00 AM CHIEF MEDICAL DIRECTOR) [facility] Method Time Signature Covid Source Nasal 02/27/2021 [facility] JONES 10:40 AM CHIEF MEDICAL DIRECTOR FALL[place] Covid-19, ID POSITIVE (A) Negative 02/27/2021 [facility] JONES Now PCR 10:40 AM CHIEF MEDICAL DIRECTOR FALL[place] Comment: REPORTABLE DISEASE Agent. Must be report ed to MD within 1 working day. ??(Department rece iving report is responsible for filling out [facility]-Disease Report Card). Positive results do not [...] Laterality Swab (Nasal) 02/27/2021 10:00 02/27/2021 AM CHIEF MEDICAL DIRECTOR 10:07 AM CHIEF MEDICAL DIRECTOR Feliciano Anderson MD LAB MOLECULAR DIAGNOSTICS OR DERABLES Performing Organization Address City/State/ZIP Code Phon e Number [facility] ROBERT [place] [address] [place] [address] documented in this encounter Visit Diagnoses Diagnosis COVID-19 virus infection - Primary Cough documented in this encounter Additional Health Concerns Infection Onset Date Last Indicated Resolved Time COVID-19 Rule Out 02/27/2021 02/27/2021 02/27/2021 10: 40 AM CHIEF MEDICAL DIRECTOR documented as of this encounter Care Teams Physician Practice Administrator Relationship Specialty Start Date End Date Tiffanie Mcgovern APRN, MINE INSPECTOR PCP - General Family Medicine 02/27/[address] [place] [address] [place] [address] documented as of this encounter
--- OUTSIDE RECORDS SUMMARY | 2022-01-22 10:08 | XMS_ITS | Encounter Summary ---
:1970 Author Organization [facility] Address [address] [place] [address] Care Team Providers Name Role Phone Roopa Lopez MD Primary Care Provider Encounter Details Date Type Department Care Team Description 06/27/2020 Lab Rogelio Guerrero History of coronary vasospas m; [address] Mixed hyperlipidemia; ERNESTO [place] [address] Essential hypertension; [phone] Postablative hy pothyroidism Social History Tobacco Use [...] AM CDT) athologist Signature GFR >60 06/27/2020 [facility] 2:13 PM CDT [facility] >60 06/27/2020 [facility] [place] GFR 2:13 PM CDT [facility] Comment: GFR calculated from serum creatinine v alue Chronic Kidney Disease less than 60 mL/m in/1.73 m2 Kidney Failure less than 15 mL/min/1.73 m2 Note: effective 07/23/06 IDMS-Traceable MDRD Study Equation used. Specimen Anatomical Collection Method Collection Time Receive d Time (Source) Location / / Volume Laterality 06/27/2020 8:27 AM 8:27 CDT AM CDT Catalina Pennington APRN, CAUSTICISER LAB BLOOD ORDERABLES Performing Organization Address City/State/ZIP Code Phon e Number [facility] [address] [place] [address] T4, free (06/27/2020 8:27 AM CDT) athologist Signature Free T4 1.31 0.78 - 2.19 06/27/2020 [facility] ng/dL 2:53 PM CDT [facility] [...] BLOOD ORDERABLES Performing Organization Address [facility]/ZIP Code Phon e Number [facility] [address] [place] [address] (ABNORMAL) TSH (06/27/2020 8:27 AM CDT) Analysis [...] MD LAB BLOOD ORDERABLES Performing Organization Address City/[facility]/ZIP Code Phon e Number [facility] [address] [place] [address] (ABNORMAL) Comprehensive metabolic panel (06/27/2020 8:27 AM CDT) Patholo gist Method Time Signature Total Protein 7.3 6.3 - 8.2 06/27/2020 [facility] g/dL 2:13 PM CDT [facility] Albumin, Serum 4.2 3.5 - 5.0 06/27/2020 [facility] g/dL 2:13 PM [facility] Total Bilirubin <0.7 0.1 - 1.0 06/27/2020 [facility] mg/dL 2:13 PM [facility] AST 26 8 - 43 U/L 06/27/2020 [facility] 2:13 PM [facility] Alkaline 66 38 - 128 06/27/2020 [facility] Phosphatase U/L 2:13 PM [facility] ALT (SGPT) 19 0 - 34 U/L 06/27/2020 [facility] 2:13 PM [facility] Sodium 139 135 - 145 06/27/2020 [facility] mEq/L 2:13 PM [facility] Potassium 4.1 3.5 - 5.1 06/27/2020 [facility] mEq/L 2:13 PM [facility] Chloride 106 98 - 107 06/27/2020 [facility] mEq/L 2:13 PM [facility] CO2 27 22 - 29 06/27/2020 [facility] mmol/L 2:13 PM [facility] BUN 17 5 - 25 06/27/2020 [facility] mg/dL 2:13 PM [facility] Creatinine 0.7 0.4 - 1.2 06/27/2020 [facility] mg/dL 2:13 PM [facility] Glucose 105 (H) 70 - 100 06/27/2020 [facility] mg/dL 2:13 PM [facility] Calcium, Total,S 9.3 8.4 - 10.2 06/27/2020 [facility] mg/dL 2:13 PM [facility] Specimen Anatomical Collection Method Collection Time Receive d Time (Source) Location / / Volume Laterality Blood 06/27/2020 8:27 AM CDT 12:50 PM CDT Catalina Pennington APRN, CNP LAB BLOOD ORDERABLES Performing Organization Address City/State/ZIP Code Phon e Number [facility] [address] [place] [address] Hemoglobin A1c (06/27/2020 8:27 AM CDT) athologist Signature Hemoglobin A1C 5.4 4.0 - 5.6 06/27/2020 [facility] L % A1C 2:09 PM [facility] Comment: Reference Range 4.0-5.6% is [...] Organization Address City/State/ZIP Code Phon e Number [facility] [address] [place] [address] Lipid panel (06/27/2020 8:27 AM CDT) athologist Signature Cholesterol 166 0 - 199 06/27/2020 [facility] mg/dL 2:13 PM [facility] Comment: Recommended by National Cholesterol Education Program (ATP III) -------- Cholesterol Ranges -------- <200 ?Desirable 200-239 ? Borderline high >=240 ? High Triglycerides 126 0 - 149 mg/dL 06/27/2020 2:13 PM T [facility] Comment: -------- TRIG Ranges -------- <150 ?Normal 150-199 ? Borderline high 200-499 ? High >=500 ? Very high HDL 58 40 - 250 mg/dL 06/27/2020 2:13 PM CDT [facility] Comment: -------- HDL Ranges -------- <40 ?Low 40-59 ?Normal >=60 ? Optimal LDL Calculated 83 0 - 99 mg/dL 06/27/2020 2:13 PM CDT [facility] Comment: -------- LDL Ranges -------- <100 ? Optimal 100-129 ?Near optimal/above op timal 130-159 ?Borderline high 160-189 ?High >=190 ?Very high Fasting? Yes 06/27/2020 8:31 AM CDT [facility] Specimen Anatomical Collection Method Collection Time Receive d Time (Source) Location / / Volume Laterality Blood 06/27/2020 8:27 AM 1 CDT 12:50 PM CDT Catalina Pennington APRN, CNP LAB BLOOD ORDERABLES Performing Organization Address City/[facility]/ZIP Code Phon e Number [facility] [address] [place] [address] Magnesium (06/27/2020 8:27 AM CDT) P athologist Signature Magnesium 2.0 1.6 - 2.3 06/27/2020 [facility] mg/dL 2:13 PM CDT [facility] Specimen Anatomical Collection Method Collection Time Receive d Time (Source) Location / / Volume Laterality Blood 06/27/2020 8:27 AM 1 CDT 12:50 PM CDT Catalina Pennington APRN, CNP LAB BLOOD ORDERABLES Performing Organization Address City/[facility]/ZIP Code Phon e Number [facility] [address] [place] [address] documented in this encounter Visit Diagnoses Diagnosis History of coronary vasospasm Mixed hyperlipidemia Essential hypertension Unspecified essential hypertension Postablative hypothyroidism Other postablative hypothyroidism documented in this encounter Care Teams B2B Outside Sales Representative Relationship Specialty Start Date End Date Roopa Lopez MD PCP - General Family Medicine 07/15/19 02/26/[address] [place] [address] documented as of this encounter
--- OUTSIDE RECORDS SUMMARY | 2022-01-22 10:08 | XMS_ITS | Encounter Summary ---
:1970 Author Organization [facility] Address [address] [place] [address] Care Team Providers Name Role Phone Roopa Lopez MD Primary Care Provider Reason for Visit Reason Comments Graves' Disease Hypothyroidism Encounter Details Date Type Department Care Team Description 09/27/2020 [facility] Endocrinology Mutkt, Postablative hypothyroidism (Primary Dx); [address] MD Valerie [place] [address] Social History Tobacco Use Types Packs/Day Years [...] aged 20 and 16. 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 Review of systems: As in HPI. All [...] disease documented in this encounter Care Teams General Office Associate Relationship Specialty Start Date End Date Roopa Lopez MD PCP - General Family Medicine 07/15/19 02/26/21 [address] [place] [address] documented as of this encounter
--- OUTSIDE RECORDS SUMMARY | 2022-01-22 10:09 | XMS_ITS | Encounter Summary ---
:1970 Author Organization [facility] Address [address] [place] [address] Care Team Providers Name Role Phone Roopa Lopez MD Primary Care Provider Encounter Details Date Type Department Care Team Description 10/14/2019 Lab Robert Guerrero Postablative hypothyroidism [address] [...] MD LAB BLOOD ORDERABLES Performing Organization Address [facility] Phon e Number [facility] [address] [place] [phone] T4, free (10/14/2019 8:03 AM CDT) P athologist Signature Free T4 1.19 0.78 - 2.19 10/14/2019 [facility] ng/dL 3:54 PM CDT [facility] [...] MD LAB BLOOD ORDERABLES Performing Organization Address [facility] Phon e Number [facility] [address] [place] [phone] documented in this encounter Visit Diagnoses Diagnosis Postablative hypothyroidism Other postablative hypothyroidism documented in this encounter Care Teams Assembler Dielectric Heater Relationship Specialty Start Date End Date Roopa Lopez MD PCP - General Family Medicine 07/15/19 02/26/[address] [place] [address] documented as of this encounter
--- OUTSIDE RECORDS SUMMARY | 2022-01-22 10:09 | XMS_ITS | Encounter Summary ---
:1970 Author Organization [facility] Address [address] [place] [address] Care Team Providers Name Role Phone Roopa [...] AM CDT) athologist Signature Fasting? Yes 09/24/2019 [facility] 8:13 AM T CENTER LAB[facility]ATORY Specimen Anatomical Collection Method Collection Time Receive d Time (Source) Location / / Volume Laterality 09/24/2019 8:07 AM 0 8:13 CDT AM CDT Roopa Lopez MD LAB BLOOD ORDERABLES Performing Organization Address [facility] Code Phon e Number [facility] [address] [place] [address] (ABNORMAL) T4, free (09/24/2019 8:07 AM CDT) athologist Signature Free T4 0.16 (L) 0.78 - 2.19 09/24/2019 [facility] ng/dL 1:52 PM CDT CENTER LABORATORY Comment: [...] MD LAB BLOOD ORDERABLES Performing Organization Address City/[facility] Code Phon e Number [facility] [address] [place] [address] (ABNORMAL) TSH (09/24/2019 8:07 AM CDT) Patholo [...] MD LAB BLOOD ORDERABLES Performing Organization Address City/[facility] Code Phon e Number [facility] [address] [place] [address] (ABNORMAL) T3 (09/24/2019 8:07 AM CDT) P athologist Signature T3, Total 0.74 (L) 0.97 - 1.69 09/24/2019 [facility] ng/mL 2:04 PM CDT CENTER [...] Organization Address City/State/ZIP Code Phon e Number [facility] [address] [place] [address] Glucose, fasting (09/24/2019 8:07 AM CDT) P athologist Signature Glucose 97 70 - 100 09/24/2019 [facility] mg/dL 1:51 PM CDT CENTER [facility] Specimen Anatomical Collection Method Collection Time Receive d Time (Source) Location / / Volume Laterality Blood (Blood, 09/24/2019 8:07 AM 09/24/19 20 Venous) CDT 12:51 PM CDT Roopa Lopez MD LAB BLOOD ORDERABLES Performing Organization Address City/State/ZIP Code Phon e Number [facility] [address] [place] [address] documented in this encounter Visit Diagnoses Diagnosis Glucose intolerance Graves disease Toxic diffuse goiter without mention of thyrotoxic crisis or storm documented in this encounter Care Teams Shank Scourer Relationship Specialty Start Date End Date Roopa Lopez MD PCP - General Family Medicine 07/15/19 02/26/[address] [place] [address] documented as of this encounter
--- OUTSIDE RECORDS SUMMARY | 2022-01-22 10:09 | XMS_ITS | Encounter Summary ---
:1970 Author Organization [facility] Address [address] [place] [address] Care Team Providers Name Role Phone Roopa Lopez MD Primary Care Provider Encounter Details Date Type Department Care Team Description 10/18/2019 Telephone [facility] Endocrinology Valerie Major MD [address] [place], [place] [id number] Social History Tobacco Use Types Packs/Day Years [...] on filedocumented in this encounter Care Teams Wellness Coordinator Relationship Specialty Start Date End Date Roopa Lopez MD PCP - General Family Medicine 07/15/19 02/26/[address] [place] [address] documented as of this encounter
--- OUTSIDE RECORDS SUMMARY | 2022-01-22 10:09 | XMS_ITS | Encounter Summary ---
:1970 Author Organization [facility] Address [address] [place] [address] Care Team Providers Name Role Phone Roopa Lopez MD Primary Care Provider Encounter Details Date Type Department Care Team Description 09/13/2019 Orders Only Roopa Caldwell MD [address] [facility] [address] [place], [place] [address] [place], [place] [phone] [address] (Wo rk) Social History Tobacco Use Types [...] on filedocumented in this encounter Care Teams Grease Cup Filler Relationship Specialty Start Date End Date Roopa Lopez MD PCP - General Family Medicine 07/15/19 02/26/[address] [place] [address] documented as of this encounter
--- OUTSIDE RECORDS SUMMARY | 2022-01-22 10:09 | XMS_ITS | Encounter Summary ---
:1970 Author Organization [facility] Address [address] [place] [address] Care Team Providers Name Role Phone Tiffanie Mcgovern APRN, INFORMATION SYSTEMS PROFESSOR Primary Care Provider [phone] Encounter Details Date Type Department Care Team Description 12/06/2019 Telephone [place] Roopa Lopez MD [address] [facility] 20 [address] [facility] 20 [place], [place] [address] [place], [place] [phone] (Wo rk) Social History Tobacco Use Types [...] Out 02/18/2020 02/18/2020 02/18/2020 4:4 1 PM HIM MANAGER COVID-19 Rule Out 02/27/2021 02/27/2021 02/27/2021 10: 40 AM HIM MANAGER COVID-19 Confirmed 02/27/2021 02/27/2021 05/28/2021 8: 17 PM CDT documented as of this encounter Care Teams Psychological Stress Evaluator Relationship Specialty Start Date End Date Tiffanie Mcgovern APRN, INFORMATION SYSTEMS PROFESSOR PCP - General Family Medicine 02/27/[address] [place] [address] [place]NESTO MACEDO [id number] documented as of this encounter
--- OUTSIDE RECORDS SUMMARY | 2022-01-22 10:09 | XMS_ITS | Encounter Summary ---
:1970 Author Organization [facility] Address [address] [place] [address] Care Team Providers Name Role Phone Roopa Lopez MD Primary Care Provider Encounter Details Date Type Department Care Team Description 11/04/2019 Telephone [place] MD [address] [place], [place] [address] Social History Tobacco Use [...] on filedocumented in this encounter Care Teams Plaster Machine Tender Relationship Specialty Start Date End Date Roopa Lopez MD PCP - General Family Medicine 07/15/19 02/26/21 [address] [place] [address] documented as of this encounter
--- OUTSIDE RECORDS SUMMARY | 2022-01-22 10:09 | XMS_ITS | Encounter Summary ---
:1970 Author Organization [facility] Address [address] [place] [address] Care Team Providers Name Role Phone Roopa Lopez MD Primary Care Provider Reason for Visit Reason Comments Graves' Disease Encounter Details Date Type Department Care Team Description 10/18/2019 Office Visit SE Endocrinology Muthusamy, Postablative hypothyroidism (Primary Dx); [address] MD Valerie Graves disease; [place] [address] Edema, unspecified type [phone] Social History Tobacco Use Types Packs/Day Years [...] aged 20 and 16. 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 Review of systems: As in HPI. All [...] by mouth every night 1 to 2 [id number] tablet 3 ??? verapamil ER (VERELAN) 240 [...] - 11/04/2019 [place] 4.68 mIU/L 2:45 PM T [facility] Comment: The results from [...] Organization Address City/State/ZIP Code Phon e Number [facility] [address] [place] [address] T4, free (11/04/2019 9:40 AM CDT) P athologist Signature Free T4 1.50 0.78 - 2.19 11/04/2019 [facility] ng/dL 2:32 PM CDT CENTER LABORATORY Comment: [...] MD LAB BLOOD ORDERABLES Performing Organization Address [facility] Phon e Number [facility] [address] [place] [address] (ABNORMAL) Basic metabolic panel (10/18/2019 11:08 AM CDT) [facility] Signature Sodium 138 135 - 145 10/18/2019 [place] mEq/L 3:22 PM [facility] Potassium 3.6 3.5 - 5.1 10/18/2019 [place] mEq/L 3:22 PM [facility] Chloride 103 98 - 107 10/18/2019 [place] mEq/L 3:22 PM [facility] CO2 26 22 - 29 10/18/2019 [place] mmol/L 3:22 PM [facility] Creatinine 0.7 0.4 - 1.2 10/18/2019 [place] mg/dL 3:22 PM [facility] BUN 14 5 - 25 10/18/2019 [place] mg/dL 3:22 PM [facility] Glucose 105 (H) 70 - 100 10/18/2019 [place] mg/dL 3:22 PM [facility] Calcium, 9.2 8.4 - 10.2 10/18/2019 [place] Total,S mg/dL 3:22 PM [facility] Fasting? No 10/18/2019 [place] 11:08 AM [facility] Specimen Anatomical Collection Method Collection Time Receive d Time (Source) Location / / Volume Laterality Blood 10/18/2019 11:08 10/18/2019 2:17 AM CDT PM CDT Valerie Major MD LAB BLOOD ORDERABLES Performing Organization Address [facility] Code Phon e Number [facility] [address] [place] [address] documented in this encounter Visit Diagnoses Diagnosis Postablative hypothyroidism - Primary Other postablative hypothyroidism Graves disease Toxic diffuse goiter without mention of thyrotoxic crisis or storm Edema, unspecified type documented in this encounter Care Teams Food And Beverage Outlets Manager Relationship Specialty Start Date End Date Roopa Lopez MD PCP - General Family Medicine 07/15/19 02/26/[address] [place] [address] documented as of this encounter
--- OUTSIDE RECORDS SUMMARY | 2022-01-22 10:09 | XMS_ITS | Encounter Summary ---
:1970 Author Organization [facility] Address [address] [place] [address] Care Team Providers Name Role Phone Roopa Lopez MD Primary Care Provider Encounter Details Date Type Department Care Team Description 09/26/2019 Orders Only SE Endocrinology Muthusamy, Postablative [address] MD Valerie hypothyroidism ([place] [address] Dx) [phone] Social History Tobacco Use Types Packs/Day Years [...] Free T4 1.19 0.78 - 2.19 10/14/2019 [facility] ng/dL 3:54 PM CDT CENTER LABORATORY Comment: [...] BLOOD ORDERABLES Performing Organization Address City/[facility] Code Phon e Number [facility] [address] [place] [address] TSH (10/14/2019 8:03 AM CDT) athologist Signature [...] BLOOD ORDERABLES Performing Organization Address City/[facility] Code Phon e Number [facility] [address] [place] [address] documented in this encounter Visit Diagnoses Diagnosis Postablative hypothyroidism - Primary Other postablative hypothyroidism documented in this encounter Care Teams Science Manager Relationship Specialty Start Date End Date Roopa Lopez MD PCP - General Family Medicine 07/15/19 02/26/21 [address] [facility] 20 [place] [address] documented as of this encounter
--- OUTSIDE RECORDS SUMMARY | 2022-01-22 10:09 | XMS_ITS | Encounter Summary ---
:1970 Author Organization [facility] Address [address] [place] [address] Care Team Providers Name Role Phone Roopa Lopez MD Primary Care Provider Reason for Referral Hospital - Outpatient (Routine) - Closed Specialty Diagnoses / Procedures Referred By Contact Refer red To Contact Radiology Diagnoses Graves disease Valerie Major MD Nuclear Medicine Procedures Nuclear medicine thyroid therapy ablation hyperthyroid [address] [place] [address] [place] [address] Phone: Fax: Referral ID Status Reason Start Date Expiration Date Visits Requ ested Visits Authorized [id number] Closed 07/16/2019 01/12/2020 1 1 Encounter Details Date Type Department Care Team Description 07/16/2019 Orders Only SE Endocrinology Moriah Graves disease (Primary [address] MD Valerie Dx) [place] [address] Social History Tobacco Use Types [...] detail with the patient by the Radiation Scientific Publications Editor (Jaimie Maharaj). ?? Verbal and written informed [...] detail with the patient by the Radiation Scientific Publications Editor (Jaimie Maharaj). Verbal and written informed consent [...] mCi I-131 therapy for hy perthyroidism. Valerie LOAIZAG NM PROCEDURES documented in this encounter Visit Diagnoses Diagnosis Graves disease - Primary Toxic diffuse goiter without mention of thyrotoxic crisis or storm documented in this encounter Care Teams Mrp Controller Relationship Specialty Start Date End Date Roopa Lopez MD PCP - General Family Medicine 07/15/19 02/26/[address] [place] [address] documented as of this encounter
--- OUTSIDE RECORDS SUMMARY | 2022-01-22 10:09 | XMS_ITS | Encounter Summary ---
:1970 Author Organization [facility] Address [address] [place] [address] Care Team Providers Name Role Phone Roopa Lopez MD Primary Care Provider Encounter Details Date Type Department Care Team Description 10/18/2019 Lab SE Lab Edema, unspecified type [address] [place] [address] Social History Tobacco Use Types [...] filtration rate (GFR) (10/18/2019 11:08 AM CDT) athologist Signature GFR >60 10/18/2019 [facility] 3:22 PM [facility] >60 10/18/2019 [facility] [place] GFR 3:22 PM [facility] Comment: GFR calculated from serum creatinine [...] Organization Address City/State/ZIP Code Phon e Number [facility] [address] [place] [address] (ABNORMAL) Basic metabolic panel (10/18/2019 11:08 AM CDT) Analysis Performed At Patho logist Time Signature Sodium 138 135 - 145 10/18/2019 [place] mEq/L 3:22 PM [facility] Potassium 3.6 3.5 - 5.1 10/18/2019 [place] mEq/L 3:22 PM [facility] Chloride 103 98 - 107 10/18/2019 [place] mEq/L 3:22 PM [facility] CO2 26 22 - 29 10/18/2019 [place] mmol/L 3:22 PM [facility] Creatinine 0.7 0.4 - 1.2 10/18/2019 [place] mg/dL 3:22 PM [facility] BUN 14 5 - 25 10/18/2019 [place] mg/dL 3:22 PM [facility] Glucose 105 (H) 70 - 100 10/18/2019 [place] mg/dL 3:22 PM [facility] Calcium, 9.2 8.4 - 10.2 10/18/2019 [place] Total,S mg/dL 3:22 PM [facility] Fasting? No 10/18/2019 [place] 11:08 AM [facility] Specimen Anatomical Collection Method Collection Time Receive d Time (Source) Location / / Volume Laterality Blood 10/18/2019 11:08 10/18/2019 2:17 AM CDT PM CDT Valerie Major MD LAB BLOOD ORDERABLES Performing Organization Address City/State/ZIP Code Phon e Number [facility] [address] [place] [address] documented in this encounter Visit Diagnoses Diagnosis Edema, unspecified type documented in this encounter Care Teams Chief Green Officer Relationship Specialty Start Date End Date Roopa Lopez MD PCP - General Family Medicine 07/15/19 02/26/21 [address] [place] [address] documented as of this encounter
--- OUTSIDE RECORDS SUMMARY | 2022-01-22 10:09 | XMS_ITS | Encounter Summary ---
:1970 Author Organization [facility] Address [address] [place] [address] Care Team Providers Name Role Phone Roopa Lopez MD Primary Care Provider Encounter Details Date Type Department Care Team Description 07/15/2019 Orders Only Roopa Caldwell Dental infection [address] MD Raheel (Primary Dx) ERNESTO Ramirez [address] [address] [facility] 20 [place] [address] Social History Tobacco Use Types Packs/Day Years [...] Primary documented in this encounter Care Teams Joinery Setter Out Relationship Specialty Start Date End Date Roopa Lopez MD PCP - General Family Medicine 07/15/19 02/26/[address] [place] [address] documented as of this encounter
--- OUTSIDE RECORDS SUMMARY | 2022-01-22 10:09 | XMS_ITS | Encounter Summary ---
:1970 Author Organization [facility] Address [address] [place] [address] Care Team Providers Name Role Phone Roopa Lopez MD Primary Care Provider Encounter Details Date Type Department Care Team Description 08/10/2019 Lab [place]erre[place] Graves disease [address] [place] [address] Social History Tobacco Use [...] T4 2.63 (H) 0.78 - 2.19 08/10/2019 [facility] ng/dL 3:09 PM CDT CENTER LABORATORY Comment: [...] Organization Address City/State/ZIP Code Phon e Number LABORATORY [address] [place] [address] (ABNORMAL) TSH (08/10/2019 8:30 AM CDT) Patholo gist Method Time Signature TSH, Sensitive <0.01 (L) 0.46 - 08/10/2019 [place] 4.68 mIU/L 3:28 PM [facility]T [facility] [...] MD LAB BLOOD ORDERABLES Performing Organization Address [facility] Phon e Number LABORATORY [address] [place] [address] (ABNORMAL) T3 (08/10/2019 8:30 AM CDT) P athologist Signature T3, Total 3.16 (H) 0.97 - 1.69 08/10/2019 [facility] ng/mL 3:28 PM CDT CENTER LABORATORY Comment: [...] MD LAB BLOOD ORDERABLES Performing Organization Address [facility] Phon e Number LABORATORY [address] [place] [address] documented in this encounter Visit Diagnoses Diagnosis Graves disease Toxic diffuse goiter without mention of thyrotoxic crisis or storm documented in this encounter Care Teams Documentation Improvement Specialist Relationship Specialty Start Date End Date Roopa Lopez MD PCP - General Family Medicine 07/15/19 02/26/[address] [place] [address] documented as of this encounter
--- OUTSIDE RECORDS SUMMARY | 2022-01-22 10:09 | XMS_ITS | Encounter Summary ---
:1970 Author Organization [facility] Address [address] [place] [address] Care Team Providers Name Role Phone Roopa [...] on filedocumented in this encounter Care Teams Executive Housekeeper Relationship Specialty Start Date End Date Roopa Lopez MD PCP - General Family Medicine 07/15/19 02/26/[address] [place] [address] documented as of this encounter
--- OUTSIDE RECORDS SUMMARY | 2022-01-22 10:09 | XMS_ITS | Encounter Summary ---
:1970 Author Organization [facility] Address [address] [place] [address] Care Team Providers Name Role Phone Roopa Lopez MD Primary Care Provider Reason for Visit Reason Comments Med Refill Encounter Details Date Type Department Care Team Description 09/21/2019 [place], GUSTAVO (generalized anxiety [address] MD disorder) Robert Guerrero [place] [address] [phone] [place] [address] Social History Tobacco Use Types Packs/Day Years [...] 1 refill. Was filled at [facility] mail is requesting. Requested Prescriptions Pending Prescriptions [...] disorder documented in this encounter Care Teams Excel Vba Developer Relationship Specialty Start Date End Date Roopa Lopez MD PCP - General Family Medicine 07/15/19 02/26/[address] [place] [address] documented as of this encounter
--- OUTSIDE RECORDS SUMMARY | 2022-01-22 10:09 | XMS_ITS | Encounter Summary ---
:1970 Author Organization [facility] Address [address] [place] [address] Care Team Providers Name Role Phone Roopa Lopez MD Primary Care Provider Encounter Details Date Type Department Care Team Description 11/04/2019 Lab Robert Guerrero Postablative hypothyroidism; [address] Right lower quadrant abdomin al pain ERNESTO Savage [address] Social History Tobacco Use Types [...] [place] Specific 1.020 1.000 11/04/2019 [facility] [place], ->=1.030 10:12 AM CDT [place] Urine Blood, Urine NEGATIVE NEGATIVE 11/04/2019 [facility] 10:12 AM CDT [place] pH, Urine 7.5 (A) 5.0 - 7.0 11/04/2019 [facility] 10:12 AM CDT [place] Protein, NEGATIVE [...] MD LAB URINE ORDERABLES Performing Organization Address City/[facility]/ZIP Code Phon e Number [facility] [place] [address] [place] [address] Glomerular filtration rate (GFR) (11/04/2019 9:40 AM CDT) athologist Signature GFR >60 11/04/2019 [facility] 10:11 AM CDT [facility] >60 11/04/2019 [facility] [place] GFR 10:11 AM CDT [facility] Comment: [...] ORDERABLES Performing Organization Address City/[facility]/ZIP Code Phon e Number [facility] [address] [place] [address] Basic metabolic panel (11/04/2019 9:40 AM CDT) athologist Signature Sodium 136 135 - 145 11/04/2019 [facility] [place] mmol/L 10:11 AM CDT [place] Potassium 4.3 3.5 - 5.1 11/04/2019 [facility] mmol/L 10:11 AM CDT [place] Comment: . Chloride 104 98 - 107 mmol/L 11/04/2019 10:11 AM CDT [facility] [place] Comment: . CO2 27 22 - 29 mmol/L 11/04/2019 10:11 AM CDT O [place] Comment: . Creatinine 0.6 0.4 - 1.2 mg/dL 11/04/2019 10:11 AM CDT [facility] [place] Comment: . BUN 12 5 - 25 mg/dL 11/04/2019 10:11 AM CDT [facility] [place] Comment: . Glucose 97 70 - 100 mg/dL 11/04/2019 10:11 AM CDT O [place] Calcium, Total,S 9.7 8.4 - 10.2 mg/dL 11/04/2019 10:11 AM CDT [facility] [place] Comment: . Fasting? Yes 11/04/2019 9:50 AM CDT [facility] [place] CAN NON F[place]S Specimen Anatomical Collection Method Collection Time Receive d Time (Source) Location / / Volume Laterality Blood 11/04/2019 9:40 AM 0 9:50 CDT AM CDT Penny Palacios MD LAB BLOOD ORDERABLES Performing Organization Address City/State/ZIP Code Phon e Number [facility] [place] [address] [place] [address] CBC Branch Off w/Diff (11/04/2019 9:40 AM CDT) P athologist Signature WBC 5.9 3.5 - 10.5 11/04/2019 [facility] [place] K/uL 10:11 AM CDT [place] RBC 4.75 3.90 - 11/04/2019 [facility] [place] 5.00 M/uL 10:11 AM CDT F[place] Hemoglobin 14.5 12.0 - 11/04/2019 [facility] [place] 15.5 g/dL 10:11 AM CDT F[place] Hematocrit 41.2 35.0 - 11/04/2019 [facility] [place] 44.0 % 10:11 AM CDT [place] Platelets 327 150 - 450 11/04/2019 [facility] [place] K/uL 10:11 AM CDT [place] MCV 86.7 81.6 - 11/04/2019 [facility] [place] 98.3 fL 10:11 AM CDT [place] MCH 30.5 26.0 - 11/04/2019 [facility] [place] 32.0 pg 10:11 AM CDT [place] MCHC 35.2 32.0 - 11/04/2019 [facility] [place] 36.0 g/dL 10:11 AM CDT [place] RDW 14.3 11.9 - 11/04/2019 [facility] [place] 15.5 % 10:11 AM CDT [place] Lymphocytes % 26.8 % 11/04/2019 [facility] [place] 10:11 AM CDT [place] Mid-size Cells 12.0 % 11/04/2019 [facility] [place] 10:11 AM CDT [place] Granulocytes/Leslie 61.2 % 11/04/2019 [facility] [place] trophils 10:11 AM CDT [place] Lymphocytes 1.6 0.9 - 2.9 11/04/2019 [facility] [place] ROBERT Absolute K/uL 10:11 AM CDT [place] MIDS Absolute 0.7 0.4 - 1.5 11/04/2019 [facility] [place] K/uL 10:11 AM CDT [place] Granulocytes/Leslie 3.6 1.7 - 7.0 11/04/2019 [facility] [place] trophils K/uL 10:11 AM CDT [place] Absolute Specimen Anatomical Collection Method Collection Time Receive d Time (Source) Location / / Volume Laterality Blood 11/04/2019 9:40 AM 0 9:50 CDT AM CDT Penny Palacios MD LAB BLOOD ORDERABLES Performing Organization Address City/[facility]/ZIP Code Phon e Number [facility] [place] [address] [place] [address] (ABNORMAL) TSH (11/04/2019 9:40 AM CDT) Analysis Performed At Patho logist Time Signature TSH, Sensitive 0.15 (L) 0.46 - 11/04/2019 [place] 4.68 mIU/L 2:45 PM CDT [facility] Comment: The results from [...] ORDERABLES Performing Organization Address City/[facility]/ZIP Code Phon e Number [facility] [address] [place] [address] T4, free (11/04/2019 9:40 AM CDT) P athologist Signature Free T4 1.50 0.78 - 2.19 11/04/2019 [facility] ng/dL 2:32 PM CDT [facility]ENTER [facility] Comment: [...] Organization Address City/State/ZIP Code Phon e Number [facility] [address] [place] [address] documented in this encounter Visit Diagnoses Diagnosis Postablative hypothyroidism Other postablative hypothyroidism Right lower quadrant abdominal pain documented in this encounter Care Teams Manager Acquisition Relationship Specialty Start Date End Date Roopa Lopez MD PCP - General Family Medicine 07/15/19 02/26/[address] [place] [address] documented as of this encounter
--- OUTSIDE RECORDS SUMMARY | 2022-01-22 10:09 | XMS_ITS | Encounter Summary ---
:1970 Author Organization [facility] Address [address] [place] [address] Care Team Providers Name Role Phone Roopa Lopez MD Primary Care Provider Reason for Visit Reason Comments Med Refill Encounter Details Date Type Department Care Team Description 11/08/2019 Refill BrothersRoopa Gandhi, History of coronary [address] [facility] 20 MD vasospasm Rogelio Guerrero [place] [address] [phone] [place]NESTO [place] [address] Social History Tobacco Use Types Packs/Day Years [...] Upcoming appointment with provider: None Last Rx: 09/02/2018 with 3 refills Requested Prescriptions Pending Prescriptions [...] vasospasm documented in this encounter Care Teams Clipper Counters Relationship Specialty Start Date End Date Roopa Lopez MD PCP - General Family Medicine 07/15/19 02/26/[address] [place] [address] documented as of this encounter
--- OUTSIDE RECORDS SUMMARY | 2022-01-22 10:09 | XMS_ITS | Encounter Summary ---
:1970 Author Organization [facility] Address [address] [place] [address] Care Team Providers Name Role Phone Roopa Lopez MD Primary Care Provider Encounter Details Date Type Department Care Team Description 12/22/2019 Lab [place] Postablative hypothyroidism [address] [place] [address] Social History Tobacco Use Types Packs/Day Years [...] MD LAB BLOOD ORDERABLES Performing Organization Address [facility] Phon e Number [facility] [address] [place] [address] T4, free (12/22/2019 1:11 PM CDT) P [...] MD LAB BLOOD ORDERABLES Performing Organization Address [facility] Phon e Number [facility] [address] [place] [address] documented in this encounter Visit Diagnoses Diagnosis Postablative hypothyroidism Other postablative hypothyroidism documented in this encounter Care Teams First Line Production Supervisor Relationship Specialty Start Date End Date Roopa Lopez MD PCP - General Family Medicine 07/15/19 02/26/[address] [place] [address] documented as of this encounter
--- OUTSIDE RECORDS SUMMARY | 2022-01-22 10:09 | XMS_ITS | Encounter Summary ---
:1970 Author Organization [facility] Address [address] [place] [address] Care Team Providers Name Role Phone Roopa Lopez MD Primary Care Provider Reason for Referral Consultation (Routine) - Closed Specialty Diagnoses / Procedures Referred By Contact Refer red To Contact Diagnoses Right lower quadrant abdominal pain Penny Palacios MD [address] [place] [address] [address] [place] [address] Phone: Fax: Referral ID Status Reason Start Date Expiration Date Visits Requ ested Visits Authorized [id number] Closed 11/04/2019 11/04/2020 1 1 Reason for Visit Reason Comments Lower Right Side Pain Encounter Details Date Type Department Care Team Description 11/04/2019 [place] Right lower quadrant [address] [facility] MD Calvin abdominal pain [place], [place] (Primary Dx ) [phone] Social History Tobacco Use Types Packs/Day Years [...] by mouth every night 1 to 2 [id number] tablet 3 ??? verapamil ER (VERELAN) 240 [...] which was able to beset up at [facility] in [place]. I have asked them to call me [...] with reflex microscopic (11/04/2019 9:45 AM CDT) [facility] gist Method Time Signature Type CLEAN CATCH 11/04/2019 [facility] 10:12 AM CDT [place] Color, Urine YELLOW YELLOW 11/04/2019 [facility] 10:12 AM CDT [place] Clarity, CLEAR CLEAR 11/04/2019 [facility] Urine 10:12 AM CDT [place] Glucose, NEGATIVE NEGATIVE 11/04/2019 [facility] [place] Urine mg/dL 10:12 AM CDT F[place] Bilirubin, NEGATIVE NEGATIVE 11/04/2019 [facility] [place] Urine 10:12 AM CDT [place] Ketones, NEGATIVE NEGATIVE 11/04/2019 [facility] Urine mg/dL 10:12 AM CDT [place] Specific 1.020 1.000 11/04/2019 [facility] [place], ->=1.030 10:12 AM CDT F[place] Urine Blood, Urine NEGATIVE NEGATIVE 11/04/2019 [facility] [place] 10:12 AM CDT [place] pH, Urine 7.5 (A) 5.0 - 7.0 11/04/2019 [facility] [place] 10:12 AM CDT [place] Protein, NEGATIVE NEGATIVE-TRA 11/04/2019 [facility] [place] Urine CE mg/dL 10:12 AM CDT [place] Urobilinogen, 0.2 0.2 - 1.0 11/04/2019 [facility] [place] Urine E.U./dL 10:12 AM CDT [place] Nitrite, NEGATIVE NEGATIVE 11/04/2019 [facility] [place] Urine 10:12 AM CDT [place] Leukocytes, NEGATIVE NEGATIVE 11/04/2019 [facility] [place] Urine 10:12 AM CDT [place] Specimen Anatomical Collection Method Collection Time Receive d Time (Source) Location / / Volume Laterality Urine (Urine, 11/04/2019 9:45 AM 11/04/19 20 9:47 Clean Catch) CDT AM CDT Penny Palacios MD LAB URINE ORDERABLES Performing Organization Address City/State/ZIP Code Phon e Number [facility] [place] [address] [place] [address] Basic metabolic panel (11/04/2019 9:40 AM CDT) P athologist Signature Sodium 136 135 - 145 11/04/2019 [facility] [place] mmol/L 10:11 AM CDT [place] Potassium 4.3 3.5 - 5.1 11/04/2019 [facility] [place] mmol/L 10:11 AM CDT F[place]S Comment: . Chloride 104 98 - 107 mmol/L 11/04/2019 10:11 AM CDT [facility] [place] Comment: . CO2 27 22 - 29 mmol/L 11/04/2019 10:11 AM CDT O [place] Comment: . Creatinine 0.6 0.4 - 1.2 mg/dL 11/04/2019 10:11 AM CDT [facility] [place] Comment: . BUN 12 5 - 25 mg/dL 11/04/2019 10:11 AM CDT [facility] [place] Comment: . Glucose 97 70 - 100 mg/dL 11/04/2019 10:11 AM CDT O [place] Calcium, Total,S 9.7 8.4 - 10.2 mg/dL 11/04/2019 10:11 AM CDT [facility] [place] Comment: . Fasting? Yes 11/04/2019 9:50 AM CDT OM CAN NON FALLS Specimen Anatomical Collection Method Collection Time Receive d Time (Source) Location / / Volume Laterality Blood 11/04/2019 9:40 AM 0 9:50 CDT AM CDT Penny Palacios MD LAB BLOOD ORDERABLES Performing Organization Address City/State/ZIP Code Phon e Number C [place] [address] [place] [address] CBC Branch Off w/Diff (11/04/2019 9:40 AM CDT) P athologist Signature WBC 5.9 3.5 - 10.5 11/04/2019 [facility] [place] K/uL 10:11 AM CDT [place] RBC 4.75 3.90 - 11/04/2019 C [place] 5.00 M/uL 10:11 AM CDT [place] Hemoglobin 14.5 12.0 - 11/04/2019 C [place] 15.5 g/dL 10:11 AM CDT [place] Hematocrit 41.2 35.0 - 11/04/2019 C [place] 44.0 % 10:11 AM CDT [place] Platelets 327 150 - 450 11/04/2019 C [place] K/uL 10:11 AM CDT [place] MCV [...] CDT F[place] Mid-size Cells 12.0 % 11/04/2019 [facility] [place] 10:11 AM CDT [place] Granulocytes/Leslie 61.2 % 11/04/2019 [facility] [place] trophils 10:11 AM CDT [place] Lymphocytes 1.6 0.9 - 2.9 11/04/2019 [facility] [place] Absolute K/uL 10:11 AM CDT [place] MIDS Absolute 0.7 0.4 - 1.5 11/04/2019 [facility] [place] K/uL 10:11 AM CDT [place] Granulocytes/Leslie 3.6 1.7 - 7.0 11/04/2019 [facility] ROBERT trophils K/uL 10:11 AM CDT [place] Absolute Specimen Anatomical Collection Method Collection Time Receive d Time (Source) Location / / Volume Laterality Blood 11/04/2019 9:40 AM 0 9:50 CDT AM CDT Penny Palacios MD LAB BLOOD ORDERABLES Performing Organization Address City/State/ZIP Code Phon e Number [facility] [place] [address] [place] [address] documented in this encounter Visit Diagnoses Diagnosis Right lower quadrant abdominal pain - Pr imary documented in this encounter Care Teams Management Lecturer Relationship Specialty Start Date End Date Roopa Lopez MD PCP - General Family Medicine 07/15/19 02/26/[address] [place] [address] documented as of this encounter
--- OUTSIDE RECORDS SUMMARY | 2022-01-22 10:09 | XMS_ITS | Encounter Summary ---
:[address] [facility] Address [address] [place] [address] Care Team Providers Name Role Phone Roopa [...] on filedocumented in this encounter Care Teams Entertainer & Comic Relationship Specialty Start Date End Date Roopa Lopez MD PCP - General Family Medicine 07/15/19 02/26/[address] [place] [address] documented as of this encounter
--- OUTSIDE RECORDS SUMMARY | 2022-01-22 10:09 | XMS_ITS | Encounter Summary ---
:1970 Author Organization [facility] Address [address] [place] [address] Care Team Providers Name Role Phone Roopa [...] [address] MD Raheel Myalgia; [place], [place] [address] Arthralgia, unspecified join t; [phone] [place] Fluid retention; [place], [place] Glucose int olerance [phone] Social History Tobacco Use Types Packs/Day Years [...] and thyrotropin antibody testing. She has seen [place] air quality instrument specialist Dr. Major and she has received in [...] [facility] get the name or the group of cell coverer and we will refer her to them [...] a day with potential increase to 75 user support specialist her prescription for Lasix and taking 120 [...] Signature Glucose 97 70 - 100 09/24/2019 [facility] mg/dL 1:51 PM CDT [facility] Specimen Anatomical Collection Method Collection Time Receive d Time (Source) Location / / Volume Laterality Blood (Blood, 09/24/2019 8:07 AM 09/24/19 20 Venous) CDT 12:51 PM CDT Roopa Lopez MD LAB BLOOD ORDERABLES Performing Organization Address City/State/ZIP Code Phon e Number [facility] [address] [place] [address] documented in this encounter Visit Diagnoses Diagnosis Graves disease - Primary Toxic diffuse goiter without mention of thyrotoxic crisis or storm Myalgia Unspecified myalgia and myositis Arthralgia, unspecified joint Fluid retention Fluid overload Glucose intolerance documented in this encounter Care Teams Plate Maker Zinc Relationship Specialty Start Date End Date Roopa Lopez MD PCP - General Family Medicine 07/15/19 02/26/[address] [place] [address] documented as of this encounter
--- OUTSIDE RECORDS SUMMARY | 2022-01-22 10:09 | XMS_ITS | Encounter Summary ---
:1970 Author Organization [facility] Address [address] [place] [address] Care Team Providers Name Role Phone Roopa Lopez MD Primary Care Provider Encounter Details Date Type Department Care Team Description 09/02/2019 Lab Rogelio Guerrero Graves disease; [address] Edema, unspecified type ERNESTO [place] [address] Social History Tobacco [...] CDT) P athologist Signature GFR >60 09/02/2019 [facility] 1:07 PM T [facility] >60 09/02/2019 [facility] Bangladeshi GFR 1:07 PM T [facility] Comment: [...] Address City/State/ZIP Code Phon e Number [facility] [address] [place] [address] (ABNORMAL) Basic metabolic panel (09/02/2019 9:17 AM CDT) Analysis Performed At Patho logist Time Signature Sodium 138 135 - 145 09/02/2019 [place] mEq/L 1:07 PM [facility] Potassium 3.7 3.5 - 5.1 09/02/2019 [place] mEq/L 1:07 PM [facility] Chloride 105 98 - 107 09/02/2019 [place] mEq/L 1:07 PM [facility] CO2 24 22 - 29 09/02/2019 [place] mmol/L 1:07 PM [facility] Creatinine 0.5 0.4 - 1.2 09/02/2019 [place] mg/dL 1:07 PM [facility] BUN 14 5 - 25 09/02/2019 [place] mg/dL 1:07 PM [facility] Glucose 119 (H) 70 - 100 09/02/2019 [place] mg/dL 1:07 PM CDT [facility] Calcium, 9.8 8.4 - 10.2 09/02/2019 [place] Total,S mg/dL 1:07 PM T [facility] Fasting? Yes 09/02/2019 [facility] [place] 9:[address] [facility] [place] Specimen Anatomical Collection Method Collection Time Receive d Time (Source) Location / / Volume Laterality Blood 09/02/2019 9:17 AM 0 1:07 CDT PM CDT Valerie Major MD LAB BLOOD ORDERABLES Performing Organization Address City/[facility]/ZIP Code Phon e Number [facility] [address] [place] [address] [facility] [address] [place] [address] LABORATORY T4, free (09/02/2019 9:17 AM CDT) athologist Signature Free T4 1.84 0.78 - 2.19 09/03/2019 [facility] ng/dL 2:34 PM CDT CENTER [facility] [...] Address City/State/ZIP Code Phon e Number [facility] [address] [place] [address] (ABNORMAL) TSH (09/02/2019 9:17 AM CDT) Patholo gist Method Time Signature TSH, Sensitive <0.01 (L) 0.46 - 09/03/2019 [place] 4.68 mIU/L 2:50 PM CDT [facility] Comment: The results [...] Address City/State/ZIP Code Phon e Number [facility] [address] [place] [address] documented in this encounter Visit Diagnoses Diagnosis Graves disease Toxic diffuse goiter without mention of thyrotoxic crisis or storm Edema, unspecified type documented in this encounter Care Teams Senior Environmental Technician Relationship Specialty Start Date End Date Roopa Lopez MD PCP - General Family Medicine 07/15/19 02/26/21 [address] [place] [address] documented as of this encounter
--- OUTSIDE RECORDS SUMMARY | 2022-01-22 10:09 | XMS_ITS | Encounter Summary ---
:1970 Author Organization [facility] Address [address] [place] [address] Care Team Providers Name Role Phone Roopa Lopez MD Primary Care Provider Encounter Details Date Type Department Care Team Description 10/22/2019 Telephone [facility] Endocrinology Valerie Major MD [address] [place] [address] Social History Tobacco Use Types [...] and verbalized an understanding. [facility]red [facility] f/u appt. Telephone Encounter - Valerie Major MD - [...] LAB BLOOD ORDERABLES Performing Organization Address City/[facility]/ZIP Code Phon e Number [facility] [address] [place] [phone] TSH (12/22/2019 1:11 PM CDT) athologist Signature [...] LAB BLOOD ORDERABLES Performing Organization Address City/[facility]/ZIP Code Phon e Number [facility] [address] [place] [address] documented in this encounter Visit Diagnoses Diagnosis Postablative hypothyroidism Other postablative hypothyroidism documented in this encounter Care Teams Switcher Relationship Specialty Start Date End Date Roopa Lopez MD PCP - General Family Medicine 07/15/19 02/26/[address] [place] [address] documented as of this encounter
--- OUTSIDE RECORDS SUMMARY | 2022-01-22 10:09 | XMS_ITS | Encounter Summary ---
:1970 Author Organization [facility] Address [address] [place] [address] Care Team Providers Name Role Phone Roopa Lopez MD Primary Care Provider Reason for Visit Reason Onset Date Comments Med Refill 12/06/2019 Encounter Details Date Type Department Care Team Description 12/06/2019 Refill Roopa Cal[place] Hyperlipidemia, unspecified hyperlipidemia type; [address] MD [place]he[place] Insomnia, unspecified type [place] ERNESTO [address] [phone] [place] [address] Social History Tobacco Use Types Packs/Day Years [...] type documented in this encounter Care Teams Ward Attendant Relationship Specialty Start Date End Date Roopa Lopez MD PCP - General Family Medicine 07/15/19 02/26/[address] [place] [address] documented as of this encounter
--- OUTSIDE RECORDS SUMMARY | 2022-01-22 10:09 | XMS_ITS | Encounter Summary ---
:1970 Author Organization [facility] Address [address] [place] [address] Care Team Providers Name Role Phone Roopa Lopez MD Primary Care Provider Encounter Details Date Type Department Care Team Description 11/04/2019 Telephone [place] Roopa Lopez MD [address] [facility] [address] [place], [place] [address] [place], [place] [phone] (Wo rk) Social History Tobacco Use Types [...] sheet and lab results faxed to [facility] radiology as requested (STAT). documented in this encounter Plan of Treatment Not on filedocumented as of this encounter Visit Diagnoses Not on filedocumented in this encounter Care Teams Power Plant Manager Relationship Specialty Start Date End Date Roopa Lopez MD PCP - General Family Medicine 07/15/19 02/26/21 [address] [place] [address] documented as of this encounter
--- OUTSIDE RECORDS SUMMARY | 2022-01-22 10:09 | XMS_ITS | Encounter Summary ---
:1970 Author Organization [facility] Address [address] [place] [address] Care Team Providers Name Role Phone Roopa Lopez MD Primary Care Provider Reason for Visit Reason Comments Hyperthyroidism Encounter Details Date Type Department Care Team Description 08/12/2019 [facility] Endocrinology Moriah, Graves disease (Primary Dx); [address] [facility] MD Valerie [place], [place] [address] Social History Tobacco Use Types Packs/Day Years [...] age 20 and 16. 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 Review of systems: As in HPI. All [...] Total 0.74 (L) 0.97 - 1.69 09/24/2019 [facility] ng/mL 2:04 PM CDT CENTER LABORATORY Comment: [...] Performing Organization Address [facility] Phon e Number [facility] [address] [place] [address] (ABNORMAL) TSH (09/24/2019 8:07 AM CDT) Patholo [...] LAB BLOOD ORDERABLES Performing Organization Address City/[facility]/ZIP Code Phon e Number [facility] [address] [place] [address] (ABNORMAL) T4, free (09/24/2019 8:07 AM CDT) P athologist Signature Free T4 0.16 (L) 0.78 - 2.19 09/24/2019 [facility] ng/dL 1:52 PM CDT CENTER LABORATORY [...] LAB BLOOD ORDERABLES Performing Organization Address City/[facility]/ZIP Code Phon e Number [facility] [address] [place] [address] (ABNORMAL) TSH (09/02/2019 9:17 AM CDT) Patholo gist Method Time Signature TSH, Sensitive <0.01 (L) 0.46 - 09/03/2019 [facility] 4.68 mIU/L 2:50 PM CDT MEDICAL CENTER [...] LAB BLOOD ORDERABLES Performing Organization Address City/[facility]/ZIP Code Phon e Number [facility] [address] [place] [address] T4, free (09/02/2019 9:17 AM CDT) P athologist Signature Free T4 1.84 0.78 - 2.19 09/03/2019 [facility] ng/dL 2:34 PM CDT CENTER LABORATORY [...] Organization Address City/State/ZIP Code Phon e Number [facility] [address] [place] [address] (ABNORMAL) Basic metabolic panel (09/02/2019 9:17 AM CDT) Analysis Performed At Patho logist Time Signature Sodium 138 135 - 145 09/02/2019 [place] mEq/L 1:07 PM [facility] Potassium 3.7 3.5 - 5.1 09/02/2019 [place] mEq/L 1:07 PM [facility] Chloride 105 98 - 107 09/02/2019 [place] mEq/L 1:07 PM [facility] CO2 24 22 - 29 09/02/2019 [place] mmol/L 1:07 PM [facility] Creatinine 0.5 0.4 - 1.2 09/02/2019 [place] mg/dL 1:07 PM [facility] BUN 14 5 - 25 09/02/2019 [place] mg/dL 1:07 PM [facility] Glucose 119 (H) 70 - 100 09/02/2019 [place] mg/dL 1:07 PM [facility] Calcium, 9.8 8.4 - 10.2 09/02/2019 [place] Total,S mg/dL 1:07 PM [facility] Fasting? Yes 09/02/2019 [facility] 9:20 AM CDT [place] Specimen Anatomical Collection Method Collection Time Receive d Time (Source) Location / / Volume Laterality Blood 09/02/2019 9:17 AM 0 1:07 CDT PM CDT Valerie Major MD LAB BLOOD ORDERABLES Performing Organization Address City/State/ZIP Code Phon e Number [facility] [address] [facility] [address] [place] [address] [facility] [address] [place] [address] LABORATORY documented in this encounter Visit Diagnoses Diagnosis Graves disease - Primary Toxic diffuse goiter without mention of thyrotoxic crisis or storm Edema, unspecified type documented in this encounter Care Teams Inclinometer Tester Relationship Specialty Start Date End Date Roopa Lopez MD PCP - General Family Medicine 07/15/19 02/26/[address] [place] [address] documented as of this encounter
--- OUTSIDE RECORDS SUMMARY | 2022-01-22 10:09 | XMS_ITS | Encounter Summary ---
:1970 Author Organization [facility] Address [address] [place] [address] Care Team Providers Name Role Phone Roopa Lopez MD Primary Care Provider Reason for Visit Reason Comments Graves' Disease Encounter Details Date Type Department Care Team Description 12/28/2019 [facility] Endocrinology Moriah, Postablative hypothyroidism (Primary Dx); [address] MD Valerie Graves disease; [place] [address] Generalized edema [phone] Social History Tobacco Use Types Packs/Day Years [...] aged 20 and 16. 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 Review of systems: As in HPI. All [...] this encounter Results TSH (03/27/2020 9:58 AM CABLE INSTALLER REPAIRER) athologist Signature TSH, Sensitive 0.87 0.46 - 03/28/2020 [facility] L 4.68 mIU/L 3:06 PM CABLE INSTALLER REPAIRER CENTER LABORATORY Comment: The results from this [...] Volume Laterality Blood 03/27/2020 9:58 AM 1:18 CABLE INSTALLER REPAIRER PM CABLE INSTALLER REPAIRER Valerie Major MD LAB BLOOD ORDERABLES Performing Organization Address City/State/ZIP Code Phon e Number [facility] [address] [place] [address] T4, free (03/27/2020 9:58 AM CABLE INSTALLER REPAIRER) athologist Signature Free T4 1.17 0.78 - 2.19 03/28/2020 [facility] ng/dL 2:36 PM CABLE INSTALLER REPAIRER CENTER LABORATORY Comment: The results from this [...] Volume Laterality Blood 03/27/2020 9:58 AM 1:18 CABLE INSTALLER REPAIRER PM CABLE INSTALLER REPAIRER Valerie Major MD LAB BLOOD ORDERABLES Performing Organization Address City/State/ZIP Code Phon e Number [facility] [address] [place] [address] documented in this encounter Visit Diagnoses Diagnosis Postablative hypothyroidism - Primary Other postablative hypothyroidism Graves disease Toxic diffuse goiter without mention of thyrotoxic crisis or storm Generalized edema Edema documented in this encounter Care Teams Hairspring I Inspector Relationship Specialty Start Date End Date Roopa Lopez MD PCP - General Family Medicine 07/15/19 02/26/[address] [place] [address] documented as of this encounter
--- OUTSIDE RECORDS SUMMARY | 2022-01-22 10:10 | XMS_ITS | Encounter Summary ---
:1970 Author Organization [facility] Address [address] [place] [address] Care Team Providers Name Role Phone Tiffanie Mcgovern ENVIRONMENTAL MONITORING SPECIALIST, IT LEAD Primary Care Provider [phone] Reason for Visit Reason Onset Date Comments status update 05/19/2019 Encounter Details Date Type Department Care Team Description 05/19/2019 Telephone [place], status update [address] ENVIRONMENTAL MONITORING SPECIALIST, IT LEAD ERNESTO Ramirez [address] [address] [facility] [address] [phone] [place], [place] [address] Social History Tobacco Use [...] 3:23 PM CDT Patient informed, clint will cotton picking machine operator note. Telephone Encounter - Roopa Lopez MD - 05/19/2019 3:04 PM CDT Work note written. Laura can cotton picking machine operator or ask her where to fax this [...] is doing. Pt can be reached at [phone]. documented in this encounter Plan of Treatment Not on filedocumented as of this encounter Visit Diagnoses Diagnosis Bronchitis - Primary Bronchitis, not specified as acute or ch ronic documented in this encounter Care Teams Office Auditor Relationship Specialty Start Date End Date Tiffanie Mcgovern APRN, IT LEAD PCP - General 10/14/17 07/14/19 100 [facility] [place] [address] documented as of this encounter
--- OUTSIDE RECORDS SUMMARY | 2022-01-22 10:10 | XMS_ITS | Encounter Summary ---
:[address] [facility] Address [address] [place] [address] Care Team Providers Name Role Phone Roopa Lopez MD Primary Care Provider Reason for Visit Reason Onset Date Comments Thyroid Problem 06/28/2019 Encounter Details Date Type Department Care Team Description 06/28/2019 [place]phone [place] MD Thyroid Problem [address] [place], [place] [address] [place], [place] [phone] (Wo rk) Social History Tobacco Use Types [...] going to discuss her thyroid tests with [facility]. Telephone Encounter - Chelsea Romero [...] on filedocumented in this encounter Care Teams Alcohol Rubber Relationship Specialty Start Date End Date Roopa Lopez MD PCP - General Family Medicine 07/15/19 02/26/[address] [place] [address] documented as of this encounter
--- OUTSIDE RECORDS SUMMARY | 2022-01-22 10:10 | XMS_ITS | Encounter Summary ---
:1970 Author Organization [facility] Address [address] [place] [address] Care Team Providers Name Role Phone Tiffanie Mcgovern COOK SUPERVISOR, DIESEL ENGINE I PIPE FITTER Primary Care Provider [phone] Reason for Visit Reason Comments Med Refill Encounter Details Date Type Department Care Team Description 03/06/2019 Refill Robert Guerrero Tiffanie Mcgovern, Hyperlipidemia, [address] COOK SUPERVISOR, KYLE unspecified ERNESTO Ramirez [address] 100 [facility] hyperlipidemia type [phone] [place], [place] [address] Social History Tobacco Use [...] 82 Fasting? Yes No future labs pending AGE CONSULTANT documented in this encounter Plan of Treatment Not on filedocumented as of this encounter Visit Diagnoses Diagnosis Hyperlipidemia, unspecified hyperlipidem ia type documented in this encounter Care Teams Baggageman Relationship Specialty Start Date End Date Tiffanie Mcgovern APRN, DIESEL ENGINE I PIPE FITTER PCP - General 10/14/17 07/14/19 100 [facility] [place] [address] documented as of this encounter
--- OUTSIDE RECORDS SUMMARY | 2022-01-22 10:10 | XMS_ITS | Encounter Summary ---
:1970 Author Organization [facility] Address [address] [place] [address] Care Team Providers Name Role Phone Tiffanie Mcgovern AV SPECIALIST, IMAGING ADMINISTRATOR Primary Care Provider [phone] Reason for Visit Reason Onset Date Comments [place] 05/18/2019 Encounter Details Date Type Department Care Team Description 05/18/2019 [place]phone [place], [place] [address] AV SPECIALIST, IMAGING ADMINISTRATOR ERNESTO Ramirez [address] 100 [facility] [address] [phone] [place], [place] [address] Social History Tobacco Use [...] documented as of this encounter Care Teams Extrusion Press Adjuster Relationship Specialty Start Date End Date Tiffanie Mcgovern APRN, IMAGING ADMINISTRATOR PCP - General 10/14/17 07/14/19 100 [facility] [place] [address] documented as of this encounter
--- OUTSIDE RECORDS SUMMARY | 2022-01-22 10:10 | XMS_ITS | Encounter Summary ---
:1970 Author Organization [facility] Address [address] [place] [address] Care Team Providers Name Role Phone Tiffanie Mcgovern APRN, KYLE Primary Care Provider [phone] Encounter Details Date Type Department Care Team Description 02/11/2019 Orders Only Robert Guerrero Tiffanie Mcgovern, Sinusitis, [address] KYLE [place] unspecified ERNESTO Ramirez 100 [place] chronicity, [address] [place] [address] unspecified location [phone] (Primary Dx) Social History Tobacco Use Types [...] Primary documented in this encounter Care Teams Mergers And Acquisitions Associate Relationship Specialty Start Date End Date Tiffanie Mcgovern APRN, KYLE PCP - General 10/14/17 07/14/19 100 [place] [address] documented as of this encounter
--- OUTSIDE RECORDS SUMMARY | 2022-01-22 10:10 | XMS_ITS | Encounter Summary ---
:1970 Author Organization [facility] Address [address] [place] [address] Care Team Providers Name Role Phone Tiffanie Mcgovern APRN, MANUAL CONTROL AUGER PRESS OPERATOR Primary Care Provider [phone] Encounter Details Date Type Department Care Team Description 12/14/2018 Lab Robert Guerrero Preoperative examination; [address] Hyperlipidemia, unspecified hyperlipidemia type ERNESTO [place] [address] Social History [...] Signature Potassium 4.0 3.5 - 5.1 12/15/2018 [facility] mEq/L 1:10 PM CDT CENTER LABORATORY Specimen Anatomical Collection Method Collection Time Receive d Time (Source) Location / / Volume Laterality 12/14/2018 10:14 12/15/2018 AM CDT 12:35 PM CDT Tiffanie Mcgovern APRN, CNP LAB BLOOD ORDERABLES Performing Organization Address City/[facility]/ZIP Code Phon e Number [facility] [address] [place] [address] HemoCue glucose (12/14/2018 10:14 AM CDT) athologist Signature Glucose, Bld 87 70 - 100 12/14/2018 [facility] mg/dL 10:32 AM CDT [place] Comment: . Specimen Anatomical Collection Method Collection Time Receive d Time (Source) Location / / Volume Laterality 12/14/2018 10:14 12/14/2018 AM CDT 10:14 AM CDT Tiffanie Mcgovern APRN, CNP LAB BLOOD ORDERABLES Performing Organization Address City/[facility]/ZIP Code Phon e Number [facility] [place] [address] [place] [address] (ABNORMAL) Lipid panel (12/14/2018 10:14 AM CDT) athologist Signature Cholesterol 171 0 - 199 12/15/2018 [facility] mg/dL 1:10 PM CDT CENTER LABORATORY Comment: Recommended by National Cholesterol Education Program (ATP III) -------- Cholesterol Ranges -------- <200 ? Desirable 200-239 ? Borderline high >=240 ? High Triglycerides 150 (A) 0 - 149 mg/dL 12/15/2018 1:10 PM CDT [facility] Comment: -------- TRIG Ranges -------- <150 ?Normal 150-199 ? Borderline high 200-499 ? High >=500 ? Very high HDL 59 40 - 60 mg/dL 12/15/2018 1:10 PM CDT [facility] Comment: -------- HDL Ranges -------- <40 ?Low 40-59 ?Normal >=60 ? Optimal LDL Calculated 82 0 - 99 mg/dL 12/15/2018 1:10 PM CDT [facility] Comment: -------- LDL Ranges -------- <100 ? Optimal 100-129 ?Near optimal/above op timal 130-159 ?Borderline high 160-189 ?High >=190 ?Very high Fasting? Yes 12/14/2018 10:27 AM CDT [facility] Specimen Anatomical Collection Method Collection Time Receive d Time (Source) Location / / Volume Laterality Blood 12/14/2018 10:14 12/15/2018 AM CDT 12:35 PM CDT Tiffanie Mcgovern APRN, MANUAL CONTROL AUGER PRESS OPERATOR LAB BLOOD ORDERABLES Performing Organization Address City/State/ZIP Code Phon e Number [facility] [address] [place] [address] CBC Branch Off w/Diff (12/14/2018 10:14 AM CDT) P athologist Signature WBC 6.2 3.5 - 10.5 12/14/2018 [facility] K/uL 10:32 AM CDT [place] RBC 4.36 3.90 - 12/14/2018 [facility] 5.00 M/uL 10:32 AM CDT [place] Hemoglobin 13.8 12.0 - 12/14/2018 [facility] 15.5 g/dL 10:32 AM CDT [place] Hematocrit 39.8 35.0 - 12/14/2018 [facility] 44.0 % 10:32 AM CDT [place] Platelets 329 150 - 450 12/14/2018 [facility] K/uL 10:32 AM CDT [place] MCV 91.3 81.6 - 12/14/2018 [facility] 98.3 fL 10:32 AM CDT [place] MCH 31.7 26.0 - 12/14/2018 [facility] 32.0 pg 10:32 AM CDT [place] MCHC 34.7 32.0 - 12/14/2018 [facility] 36.0 g/dL 10:32 AM CDT [place] RDW 12.6 11.9 - 12/14/2018 [facility] 15.5 % 10:32 AM CDT [place] Lymphocytes % 26.2 18.0 - 12/14/2018 [facility] 45.0 % 10:32 AM CDT [place] Mid-size Cells 9.2 3.3 - 10.1 12/14/2018 [facility] % 10:32 AM CDT [place] Granulocytes/Leslie 64.6 45.8 - 12/14/2018 [facility] trophils 73.7 % 10:32 AM CDT [place] Lymphocytes 1.6 0.9 - 2.9 12/14/2018 [facility] Absolute K/uL 10:32 AM CDT [place] MIDS Absolute 0.6 0.2 - 0.8 12/14/2018 [facility] K/uL 10:32 AM CDT [place] Granulocytes/Leslie 4.0 2.1 - 8.7 12/14/2018 [facility] trophils K/uL 10:32 AM CDT [place] Absolute Specimen Anatomical Collection Method Collection Time Receive d Time (Source) Location / / Volume Laterality Blood 12/14/2018 10:14 12/14/2018 AM CDT 10:14 AM CDT Tiffanie Mcgovern APRN, MANUAL CONTROL AUGER PRESS OPERATOR LAB BLOOD ORDERABLES Performing Organization Address City/State/ZIP Code Phon e Number [facility] [address] [place] [address] Fasting ? (12/14/2018 10:00 AM CDT) P athologist Signature Fasting? Yes 12/14/2018 [facility] 10:27 AM CDT [place] Specimen Anatomical Collection Method Collection Time Receive d Time (Source) Location / / Volume Laterality 12/14/2018 10:00 12/14/2018 AM CDT 10:00 AM CDT Tiffanie Mcgovern APRN, CNP LAB BLOOD ORDERABLES Performing Organization Address City/State/ZIP Code Phon e Number [facility] [address] [place] [address] documented in this encounter Visit Diagnoses Diagnosis Preoperative examination Unspecified pre-operative examination Hyperlipidemia, unspecified hyperlipidem ia type documented in this encounter Care Teams Oakes Machine Operator Relationship Specialty Start Date End Date Tiffanie cMgovern APRN, MANUAL CONTROL AUGER PRESS OPERATOR PCP - General 10/14/17 07/14/19 100 [place] [address] documented as of this encounter
--- OUTSIDE RECORDS SUMMARY | 2022-01-22 10:10 | XMS_ITS | Encounter Summary ---
:1970 Author Organization [facility] Address [address] [place] [address] Care Team Providers Name Role Phone Tiffanie Mcgovern APRN, CNP Primary Care Provider [phone] Encounter Details Date Type Department Care Team [...] filedocumented in this encounter Care Teams Supervisor Coin Machine Relationship Specialty Start Date End Date Tiffanie Mcgovern APRN, KYLE PCP - General 10/14/17 07/14/19 100 [facility] [place] [address] documented as of this encounter
--- OUTSIDE RECORDS SUMMARY | 2022-01-22 10:10 | XMS_ITS | Encounter Summary ---
:1970 Author Organization [facility] Address [address] [place] [address] Care Team Providers Name Role Phone Tiffanie Mcgovern APRN, MANUAL CONTROL AUGER PRESS OPERATOR Primary Care Provider [phone] Encounter Details Date Type Department Care Team [...] on filedocumented in this encounter Care Teams Sales Incentive Analyst Relationship Specialty Start Date End Date Tiffanie Mcgovern APRN, MANUAL CONTROL AUGER PRESS OPERATOR PCP - General 10/14/17 07/14/[address] [place] [address] [place] [address] documented as of this encounter
--- OUTSIDE RECORDS SUMMARY | 2022-01-22 10:10 | XMS_ITS | Encounter Summary ---
:1970 Author Organization [facility] Address [address] [place] [address] Care Team Providers Name Role Phone Tiffanie Mcgovern APRN, CUSTOMER COUNTER ASSOCIATE Primary Care Provider [phone] Encounter Details Date Type Department Care Team Description 06/22/2019 Orders Only Levi Godoy MD [address] [place] [address] Social History Tobacco Use Types Packs/Day Years [...] on filedocumented in this encounter Care Teams Incident Response Lead Relationship Specialty Start Date End Date Tiffanie Mcgovern APRN, CUSTOMER COUNTER ASSOCIATE PCP - General 10/14/17 07/14/19 100 [facility] [address] documented as of this encounter
--- OUTSIDE RECORDS SUMMARY | 2022-01-22 10:10 | XMS_ITS | Encounter Summary ---
:1970 Author Organization [facility] Address [address] [place] [address] Care Team Providers Name Role Phone Tiffanie Mcgovern APRN, MANNEQUIN MOLD MAKER Primary Care Provider [phone] Reason for Visit Reason Comments Hyperthyroidism Consultation (Routine) - Closed Specialty Diagnoses / Procedures Referred By Contact Refer red To Contact Endocrinology Diagnoses Hyperthyroidism Roopa Lopez MD [address] [place] [address] Referral ID Status Reason Start Date Expiration Date Visits V isits Requested Authorized [id number] Closed Specialty 06/29/2019 06/28/2020 1 1 Services Required Encounter Details Date Type Department Care Team Description 07/02/2019 Consult [facility] Roopa Lopez MD [address] [place] [address] Hyperthyroidism (Primary Dx); [address] [facility] Valerie [place] [address] Social History Tobacco Use Types Packs/Day Years [...] daily 2. Call us with questions at [phone] documented in this encounter Progress Notes Valerie Major MD - 07/02/2019 12:30 PM CDT Consultation Primary Care Provider: Tiffanie Mcgovern APRN, MANNEQUIN MOLD MAKER Referring Provider: Roopa Lopez MD Chief Complaint: [...] of cardiac comorbidities with coronary vasospasm induced [place] in 2010. Subsequently she was seen for virtual visit by cardiology at [facility] and underwent Holter monitoring which did not show any significant arrhythmias in May 2019. She subsequently underwent thyroid lab testing at [facility] on 06/16/2019 that showed [...] Ab <15.6 <20.0 (Negative) U Thyroid Function [place] Collection Time: 06/16/19 9:03 AM Result Value [...] by mouth every night 1 to 2 [id number] tablet 3 ??? verapamil ER (VERELAN) 240 [...] (gastroesophageal reflux disease) ??? Headache History ??? 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 No stents required. No [...] age 20 and 16. 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 Does not smoke. Rare alcohol use. Objective [...] or puffiness; no conjunctivalinjection. Normal oral cavity [id number] to palpate, no dominant nodularity or obvious [...] Total 3.16 (H) 0.97 - 1.69 08/10/2019 [facility] ng/mL 3:28 PM CDT CENTER LABORATORY [...] Organization Address [facility]/ZIP Code Phon e Number [facility] [address] [place] [address] (ABNORMAL) TSH (08/10/2019 8:30 AM CDT) Patholo gist Method Time Signature TSH, Sensitive <0.01 (L) 0.46 - 08/10/2019 [place] 4.68 mIU/L 3:28 PM CDT MEDICAL CENTER [...] Organization Address [facility]/ZIP Code Phon e Number [facility] [address] [place] [address] (ABNORMAL) T4, free (08/10/2019 8:30 AM CDT) [...] [facility] [address] [place] [address] documented in this encounter Visit Diagnoses Diagnosis Hyperthyroidism - Primary Thyrotoxicosis without mention of goiter or other cause, without mention of thyrotoxic crisis or storm Graves disease Toxic diffuse goiter without mention of thyrotoxic crisis or storm documented in this encounter Care Teams Engine Mechanic Relationship Specialty Start Date End Date Tiffanie Mcgovern, NURSE NAVIGATOR, MANNEQUIN MOLD MAKER PCP - General 10/14/17 07/14/19 100 [place] [address] documented as of this encounter
--- OUTSIDE RECORDS SUMMARY | 2022-01-22 10:10 | XMS_ITS | Encounter Summary ---
:1970 Author Organization [facility] Address [address] [place] [address] Care Team Providers Name Role Phone Tiffanie Mcgovern QUALITY ASSURANCE MONITOR FINAL, BIG DATA LEAD Primary Care Provider [phone] Reason for Visit Reason Onset Date Comments Pre-op H&P 12/16/2018 Encounter Details Date Type Department Care Team Description 12/16/2018 [place], Pre-op H&P [address] QUALITY ASSURANCE MONITOR FINAL, BIG DATA LEAD ERNESTO Savage [address] [facility] [phone] [place], [place] [address] Social History Tobacco Use [...] 4:16 PM CDT Pre-op paperwork faxed to [facility] at [phone] as requested. Telephone Encounter - Chelsea Romero [...] - 12/16/2018 2:44 PM CDT Jackie with [facility] called requesting Pt's Pre-op physical and any EKG and lab work be faxed to [phone] as Pt's surgery is this Friday12/18/18. Any questions please call Jackie at [phone], documented in this encounter Plan of Treatment Not on filedocumented as of this encounter Visit Diagnoses Not on filedocumented in this encounter Care Teams Handicraft Or Hobby Shop Manager Relationship Specialty Start Date End Date Tiffanie Mcgovern APRN, KYLE PCP - General 10/14/17 07/14/19 [address] [place] [address] documented as of this encounter
--- OUTSIDE RECORDS SUMMARY | 2022-01-22 10:10 | XMS_ITS | Encounter Summary ---
:1970 Author Organization [facility] Address [address] [place] [address] Care Team Providers Name Role Phone Tiffanie Mcgovern INSPECTOR RAG SORTING, MANAGING DIRECTOR Primary Care Provider [phone] Reason for Visit Reason Comments Pre-op Exam Pre-op physiocal, DOS: 12/18, Left Hip Encounter Details Date Type Department Care Team Description 12/14/2018 Consult Tiffanie Acuna, Preoperative examination (Pr imary Dx); [address] INSPECTOR RAG SORTING, KYLE Tear of left acetabular labrum, subseque nt encounter; ERNESTO Ramirez [address] Hyperlipidemia, unspecified hyperlipidem ia type [address] [place] [address] Social History Tobacco Use Types Packs/Day Years [...] under the care of Dr. Cortes, at [facility] in [place], on December 18, 2018. The preoperative risk [...] under the care of Dr. Cortes, at [facility] in [place], on December 18, 2018. The patient will hold all kzdc-jxh-vivwegd medications at this time and take the [...] under the care of Dr. Cortes, at [facility], in [place], on December 18, 2018. The patient reports she has been experiencing bilateral hip pain for the past year, withoutan injury, has been under the care of [facility], where MRIs were completed, with a labral tear of both hips, however, the right hip responded to therapy and she is no longer having any discomfort, and the left hip did not. She reports her left hip pain is worsening, a feeling of [id number]-[id number].The patient reports she typically does not take [...] (gastroesophageal reflux disease) ??? Headache History ??? IN (myocardial infarction) (HCC) 06/18/2010 History of cardiovascular disorder Acute IN secondary to Vasospasm. No stents required. No [...] file Gets together: Not on file Attends taoism service: Not on file Active member of [...] dysuria, urinary frequency, urgency, nocturia and/or hematuria. ETHYLENE PLANT OPERATOR: Hysterectomy at the age of 33. [...] Add-On Test Request (12/14/2018 12:09 PM CDT) [facility] gist Method Time Signature Add-on Testing SEE BELOW 12/14/2018 [place] 12:14 PM T [facility] Comment: K+ was added to testing. Specimen Anatomical Collection Method Collection Time Receive d Time (Source) Location / / Volume Laterality 12/14/2018 12:09 12/14/2018 PM CDT 12:09 PM CDT Tiffanie Mcgovern APRN, CNP LAB BLOOD ORDERABLES Performing Organization Address City/State/ZIP Code Phon e Number [facility] [address] [place] [address] X-ray Chest 2 Views (12/14/2018 10:16 AM [...] or pleural effusion. IMPRESSION: Unremarkable exam. Tiffanie M Mcgovern INSPECTOR RAG SORTING, MANAGING DIRECTOR IMG XR PROCEDURES CBC Branch Off w/Diff (12/14/2018 10:14 AM CDT) P athologist Signature WBC 6.2 3.5 - 10.5 12/14/2018 [facility] [place] K/uL 10:32 AM CDT [place] RBC 4.36 3.90 - 12/14/2018 [facility] 5.00 M/uL 10:32 AM CDT [place] Hemoglobin 13.8 12.0 - 12/14/2018 [facility] 15.5 g/dL 10:32 AM CDT [place] Hematocrit 39.8 35.0 - 12/14/2018 [facility] [place] 44.0 % 10:32 AM CDT [place] Platelets 329 150 - 450 12/14/2018 [facility] K/uL 10:32 AM CDT [place] MCV 91.3 81.6 - 12/14/2018 [facility] 98.3 fL 10:32 AM CDT [place] MCH 31.7 26.0 - 12/14/2018 [facility] 32.0 pg 10:32 AM CDT [place] MCHC 34.7 32.0 - 12/14/2018 [facility] 36.0 g/dL 10:32 AM CDT [place] RDW 12.6 11.9 - 12/14/2018 [facility] 15.5 % 10:32 AM CDT [place] Lymphocytes % 26.2 18.0 - 12/14/2018 [facility] 45.0 % 10:32 AM CDT [place] Mid-size Cells 9.2 3.3 - 10.1 12/14/2018 [facility] % 10:32 AM CDT [place] Granulocytes/Leslie 64.6 45.8 - 12/14/2018 [facility] trophils 73.7 % 10:32 AM CDT [place] Lymphocytes 1.6 0.9 - 2.9 12/14/2018 [facility] Absolute K/uL 10:32 AM CDT [place] MIDS Absolute 0.6 0.2 - 0.8 12/14/2018 [facility] K/uL 10:32 AM CDT [place] Granulocytes/Leslie 4.0 2.1 - 8.7 12/14/2018 [facility] trophils K/uL 10:32 AM CDT [place] Absolute Specimen Anatomical Collection Method Collection Time Receive d Time (Source) Location / / Volume Laterality Blood 12/14/2018 10:14 12/14/2018 AM CDT 10:14 AM CDT Tiffanie Mcgovern APRN, MANAGING DIRECTOR LAB BLOOD ORDERABLES Performing Organization Address City/State/ZIP Code Phon e Number [facility] [place] [address] [place] [address] (ABNORMAL) Lipid panel (12/14/2018 10:14 AM CDT) athologist Signature Cholesterol 171 0 - 199 12/15/2018 [facility] mg/dL 1:10 PM CDT [facility] Comment: Recommended by National Cholesterol Education Program (ATP III) -------- Cholesterol Ranges -------- <200 ? Desirable 200-239 ? Borderline high >=240 ? High Triglycerides 150 (A) 0 - 149 mg/dL 12/15/2018 1:10 PM T [facility] Comment: -------- TRIG Ranges -------- <150 ?Normal 150-199 ? Borderline high 200-499 ? High >=500 ? Very high HDL 59 40 - 60 mg/dL 12/15/2018 1:10 PM CDT [facility] Comment: -------- HDL Ranges -------- <40 ?Low 40-59 ?Normal >=60 ? Optimal LDL Calculated 82 0 - 99 mg/dL 12/15/2018 1:10 PM CDT [facility] Comment: -------- LDL Ranges -------- <100 ? Optimal 100-129 ?Near optimal/above op timal 130-159 ?Borderline high 160-189 ?High >=190 ?Very high Fasting? Yes 12/14/2018 10:27 AM CDT [facility] Specimen Anatomical Collection Method Collection Time Receive d Time (Source) Location / / Volume Laterality Blood 12/14/2018 10:14 12/15/2018 AM CDT 12:35 PM CDT Tiffanie Mcgovern APRN, CNP LAB BLOOD ORDERABLES Performing Organization Address City/State/ZIP Code Phon e Number [facility] [address] [place] [address] ECG 12 lead (12/14/2018 12:00 AM CDT) Narrative This result has an attachment that is no t available. Tiffanie Mcgovern APRN, CNP ECG ORDERABLES documented in this encounter Visit Diagnoses Diagnosis Preoperative examination - Primary Unspecified pre-operative examination Tear of left acetabular labrum, subseque nt encounter Hyperlipidemia, unspecified hyperlipidem ia type documented in this encounter Care Teams Chalk Cutter Relationship Specialty Start Date End Date Tiffanie Mcgovern APRN, MANAGING DIRECTOR PCP - General 10/14/17 07/14/19 100 [place] [address] documented as of this encounter
--- OUTSIDE RECORDS SUMMARY | 2022-01-22 10:10 | XMS_ITS | Encounter Summary ---
:1970 Author Organization [facility] Address [address] [place] [address] Care Team Providers Name Role Phone Tiffanie Mcgovern APRN, KYLE Primary Care Provider [phone] Reason for Visit Reason Comments Sinusitis Encounter Details Date Type Department Care Team Description 01/29/2019 Office Visit Tiffanie Acuna Acute sinusitis, [address] M, ALVERTO, KYLE recurrence not ERNESTO Ramirez [address] specified, [address] [place] [address] unspecified location [phone] (Primary Dx) Social History Tobacco Use Types [...] Comments Blood Pressure 114/74 01/29/2019 9:34 AM GPS NAVIGATION INSTALLER Pulse 76 01/29/2019 9:34 AM GPS NAVIGATION INSTALLER Temperature 36.2 ??C (97.1 ??F) 01/29/2019 9:34 AM GPS NAVIGATION INSTALLER Respiratory Rate 18 01/29/2019 9:34 AM GPS NAVIGATION INSTALLER Oxygen Saturation 95% 01/29/2019 9:34 AM GPS NAVIGATION INSTALLER Inhaled Oxygen Concentration - - Weight 88.4 kg (194 lb 14.2 oz) 01/29/2019 9:34 AM GPS NAVIGATION INSTALLER Height 175 cm (5' 8.9) 01/29/2019 9:34 AM GPS NAVIGATION INSTALLER Body Mass Index 28.87 01/29/2019 9:34 AM GPS NAVIGATION INSTALLER documented in this encounter Patient Instructions Patient InstructionsChpatel Mcgovern APRN, CNP - 01/29/2019 9:40 AM GPS NAVIGATION INSTALLER Take antibiotic as directed NAVIGATION INSTALLER documented in this encounter Progress Notes Tiffanie [...] plan of care. Tiffanie Mcgovern APRN, KYLE NAVIGATION INSTALLER documented in this encounter Plan of Treatment Not on filedocumented as of this encounter Visit Diagnoses Diagnosis Acute sinusitis, recurrence not specifie d, unspecified location - Primary documented in this encounter Care Teams Disability Specialist Relationship Specialty Start Date End Date Tiffanie Mcgovern APRN, FAMILY NURSE PRACTITIONER PCP - General 10/14/17 07/14/19 100 [place] [address] documented as of this encounter
--- OUTSIDE RECORDS SUMMARY | 2022-01-22 10:10 | XMS_ITS | Encounter Summary ---
:1970 Author Organization [facility] Address [address] [place] [address] Care Team Providers Name Role Phone Tiffanie Mgcovern APRN, CNP Primary Care Provider [phone] Encounter Details Date Type Department Care Team [...] on filedocumented in this encounter Care Teams Benzene Washer Operator Relationship Specialty Start Date End Date Tiffanie Mcgovern APRN, KYLE PCP - General 10/14/17 07/14/19 100 [facility] [place] [address] documented as of this encounter
--- OUTSIDE RECORDS SUMMARY | 2022-01-22 10:10 | XMS_ITS | Encounter Summary ---
:[address] [facility] Address [address] [place] [address] Care Team Providers Name Role Phone Tiffanie Mcgovern APRN, SCHOOL OCCUPATIONAL THERAPIST Primary Care Provider [phone] Reason for Visit Reason Comments Flu Symptoms Encounter Details Date Type Department Care Team Description 05/17/2019 Office Visit Roopa Caldwell Cough (Primary Dx); [address] MD Raheel Body aches; Bruce ERNESTO [address] SOB (shortness of breath); [phone] [place]; [place] Fever, unsp ecified fever cause [phone] Social History Tobacco Use Types Packs/Day Years [...] CDT) athologist Signature Rapid NEGATIVE Negative 05/17/2019 [facility] ROBERT Influenza A 12:03 PM CDT [place] Rapid NEGATIVE Negative 05/17/2019 [facility] Influenza B 12:03 PM CDT [facility] Comment: A negative test is presumptive and does not exclude influenza virus infection. Specimen Anatomical Collection Method Collection Time Receive d Time (Source) Location / / Volume Laterality Swab 05/17/2019 11:35 05/17/2019 (Nasopharynx) AM CDT 11:46 AM CDT Roopa Lopez MD LAB BODY FLUIDS AND STOOLS O RDERABLES Performing Organization Address City/State/ZIP Code Phon e Number [facility] [place] [address] [place] [address] documented in this encounter Visit Diagnoses Diagnosis Cough - Primary Body aches Generalized pain SOB (shortness of breath) Shortness of breath Chills Chills (without fever) Fever, unspecified fever cause documented in this encounter Care Teams Marketing Designer Relationship Specialty Start Date End Date Tiffanie Mcgovern, LOOM SETTER, SCHOOL OCCUPATIONAL THERAPIST PCP - General 10/14/17 07/14/19 100 [facility] [place] [address] documented as of this encounter
--- OUTSIDE RECORDS SUMMARY | 2022-01-22 10:10 | XMS_ITS | Encounter Summary ---
:1970 Author Organization [facility] Address [address] [place] [address] Care Team Providers Name Role Phone Roopa Lopez MD Primary Care Provider Encounter Details Date Type Department Care Team Description 06/21/2019 Telephone Tiffanie Coto M, [address] [facility] REIMBURSEMENT LIAISON, [place] [address] [place] [address] [place], [place] [address] Social History Tobacco Use [...] this encounter Miscellaneous Notes Telephone Encounter - Levi Goodman MD - 06/22/2019 11:49 AM CDT She complains of general joint pain and shakiness. No appetite Discussed that she might be mildly hyperthyroid related to thyroiditis but cannot explain her joint pain based on her lab results. She will try aleve 2 po bid with meals for pain and contact Dennis on Friday about possible appointment with sylvia. Levi Goodman MD Telephone Encounter - Terrie Santos RN - 06/22/2019 11:17 AM CDT Pt had labs 06-16-19 and add on test 06-17-19, please advise pt on abnormal values C-14 and thyroid studies Telephone Encounter - Danya Jacobs - 06/21/2019 4:30 PM CDT Patient called re labs results, please advise. documented in this encounter Plan of Treatment Not on filedocumented as of this encounter Visit Diagnoses Not on filedocumented in this encounter Care Teams Donor Floor Technician Relationship Specialty Start Date End Date Roopa Lopez MD PCP - General Family Medicine 07/15/19 02/26/21 [address] [place] [address] documented as of this encounter
--- OUTSIDE RECORDS SUMMARY | 2022-01-22 10:10 | XMS_ITS | Encounter Summary ---
:1970 Author Organization [facility] Address [address] [place] [address] Care Team Providers Name Role Phone Tiffanie Mcgovern APRN, KYLE Primary Care Provider [phone] Reason for Visit Reason Comments Sleep Aid Encounter Details Date Type Department Care Team Description 04/02/2019 Office Visit Tiffanie Acuna Anxiety (Primary Dx); [address] M, KYLE DEL TORO Stress; [place] ERNESTO [address] Insomnia, unspecified type; [address] [place] [address] Right hip pain [phone] Social History Tobacco Use Types Packs/Day Years [...] Comments Blood Pressure 108/58 04/02/2019 9:47 AM MANUFACTURING SALES REPRESENTATIVE Pulse 72 04/02/2019 9:47 AM MANUFACTURING SALES REPRESENTATIVE Temperature 36.4 ??C (97.5 ??F) 04/02/2019 9:47 AM MANUFACTURING SALES REPRESENTATIVE Respiratory Rate 18 04/02/2019 9:47 AM MANUFACTURING SALES REPRESENTATIVE Oxygen Saturation 96% 04/02/2019 9:47 AM MANUFACTURING SALES REPRESENTATIVE Inhaled Oxygen Concentration - - Weight 89.4 kg (197 lb) 04/02/2019 9:47 AM MANUFACTURING SALES REPRESENTATIVE Height 175 cm (5' 8.9) 04/02/2019 9:47 AM MANUFACTURING SALES REPRESENTATIVE Body Mass Index 29.18 04/02/2019 9:47 AM MANUFACTURING SALES REPRESENTATIVE documented in this encounter Patient Instructions Patient InstructionsChpatel Mcgovern APRN, CNP - 04/02/2019 9:40 AM MANUFACTURING SALES REPRESENTATIVE Zoloft 25 mg daily Tramadol for severe pain Trazodone 50 mg as needed Ativan 0.5 mg daily as needed for severe anxiety FACTURING SALES REPRESENTATIVE documented in this encounter Progress Notes Tiffanie [...] time. The patient's stepmother is in a fpc with a declining memory, likely early dementia, which has not been diagnosed. 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 She reports her attention to detail [...] does have a sister who resides in [place], who has had mental health issues, and [...] plan of care. Tiffanie Mcgovern APRN, KYLE FACTURING SALES REPRESENTATIVE documented in this encounter Plan of Treatment Not on filedocumented as of this encounter Visit Diagnoses Diagnosis Anxiety - Primary Anxiety state, unspecified Stress Other psychological or physical stress, not elsewhere classified Insomnia, unspecified type Right hip pain Pain in joint, pelvic region and thigh documented in this encounter Care Teams Fbi Special Agent Relationship Specialty Start Date End Date Tiffanie Mcgovern APRN, PET CARE ATTENDANT PCP - General 10/14/17 07/14/19 100 [facility] [place] [address] documented as of this encounter
--- OUTSIDE RECORDS SUMMARY | 2022-01-22 10:10 | XMS_ITS | Encounter Summary ---
:1970 Author Organization [facility] Address [address] [place] [address] Care Team Providers Name Role Phone Tiffanie Mcgovern APRN, UPHOLSTERER APPRENTICE Primary Care Provider [phone] Reason for Visit Reason Onset Date Comments COVID 06/14/2019 Encounter Details Date Type Department Care Team Description 06/14/2019 Telephone SE Immunization Irena Lopez RN COVID [address] [place] [address] [place] [address] Social History Tobacco Use Types Packs/Day Years [...] documented as of this encounter Progress Notes Irena Lopez RN - 06/14/2019 8:52 AM CDT 06/14/19 0800 COVID-19 ALGORITHM Does the patient have close contact with a person with LAB confirmed COVID-19 case? No Symptoms in the past 48 hours: Body aches;Shortness of breath Does the patient have any of the following: No - send for drive thru testing documented in this encounter Plan of Treatment Not on filedocumented as of this encounter Results SARS Coronavirus 2 RNA detection, v (06/14/2019 8:55 AM CDT) [facility] Method Time Signature SARS Covid Nasopharyngeal 06/14/2019 [facility] specimen 10:56 PM LABORATORIES source CDT SARS CoV2 Undetected Undetected 06/14/2019 [facility] RNA 10:56 PM LABORATORIES CDT Comment: SARS-CoV-2 RNA is not detected. ADDITIONAL INFORMATIO N Testing was performed using the deanna SA RS-CoV-2 assay ([employer] on the Smart Sparrow0 System. Fact sheets for this Emergency Use Autho rization (EUA) assay can be found at the following link s: For Healthcare Providers: https://www.fda.gov/media/050821/downloa d For Patients: https://www.fda.gov/media/ 438161/download Test Performed by: [facility] [address] [place] [address] Senior Technical Recruiter: Butch Guerrero M.D. Ph. D.; CLIA# [id number] Specimen Anatomical Collection Method Collection Time Receive d Time (Source) Location / / Volume Laterality Swab 06/14/2019 8:55 AM 0 (Nasopharyngeal) CDT 11:02 AM CD T Bryon Adler MD LAB MOLECULAR DIAGNOSTICS OR DERABLES Performing Organization Address City/State/ZIP Code Phon e Number [facility] see result attachment for specific address documented in this encounter Visit Diagnoses Diagnosis Encounter for special screening examinat ion for infectious or parasitic disease - Primary documented in this encounter Care Teams Filler Picker Relationship Specialty Start Date End Date Tiffanie Mcgovern ALVERTO, UPHOLSTERER APPRENTICE PCP - General 10/14/17 07/14/19 100 [place] [address] documented as of this encounter
--- OUTSIDE RECORDS SUMMARY | 2022-01-22 10:10 | XMS_ITS | Encounter Summary ---
:1970 Author Organization [facility] Address [address] [place] [address] Care Team Providers Name Role Phone Tiffanie Mcgovern APRN, GASFITTER Primary Care Provider [phone] Encounter Details Date Type Department Care Team Description 06/28/2019 Lab [place] Hyperthyroidism [address] [place] [address] Social History Tobacco Use [...] Free 7.0 (H) 2.8 - 4.4 06/29/2019 [facility] pg/mL 7:51 PM CDT LABORATORIES Comment: Test Performed by: [facility] [place] [address] Fare Enforcement Officer: Butch Guerrero M.D. Ph. D.; CLIA# [id number] Specimen Anatomical Collection Method Collection Time Receive d Time (Source) Location / / Volume Laterality Blood (Blood, 06/28/2019 3:58 PM 06/29/19 1:58 Venous) CDT PM CDT D. Raheel Lopez MD LAB BLOOD ORDERABLES Performing Organization Address City/State/ZIP Code Phon e Number [facility] see result attachment for specific address (ABNORMAL) Thyrotropin receptor antibody (06/28/2019 3:58 PM CDT) Patholo gist Method Time Signature Thyrotropin 2.76 (H) 0.00 - 06/29/2019 [facility] Receptor Ab 1.75 IU/L 7:45 PM CDT LABORATORIES Comment: ADDITIONAL INFORMATIO N At a decision limit of 1.75 IU/L, this a ssay has 97% sensitivity and 99% specificity for detection of Graves' disease. In healthy individuals and in patients with thyroid disease without diagnosis of Graves' disease, e upper limit of anti-TSHR values are 1.22 IU/L and 1.58 IU/L, respectively (97.5th percenti les). Test Performed by: [facility] [place] [address] Fare Enforcement Officer: Butch Guerrero M.D. Ph. D.; CLIA# [id number] Specimen Anatomical Collection Method Collection Time Receive d Time (Source) Location / / Volume Laterality Blood (Blood, 06/28/2019 3:58 PM 06/29/19 1:58 Venous) CDT PM CDT D. Raheel Molenaar MD LAB BLOOD ORDERABLES Performing Organization Address City/State/ZIP Code Phon e Number [facility] see result attachment for specific address documented in this encounter Visit Diagnoses Diagnosis Hyperthyroidism Thyrotoxicosis without mention of goiter or other cause, without mention of thyrotoxic crisis or storm documented in this encounter Care Teams Manager Gyn Relationship Specialty Start Date End Date Tiffanie Mcgovern, BEACH PATROL LIEUTENANT, GASFITTER PCP - General 10/14/17 07/14/19 100 [facility] [place] [address] documented as of this encounter
--- OUTSIDE RECORDS SUMMARY | 2022-01-22 10:10 | XMS_ITS | Encounter Summary ---
:1970 Author Organization [facility] Address [address] [place] [address] Care Team Providers Name Role Phone Tiffanie Mcgovern APRN, MACHINE SET UP Primary Care Provider [phone] Reason for Referral Consultation (Routine) - Closed Specialty Diagnoses / Procedures Referred By Contact Refer red To Contact Endocrinology Diagnoses Hyperthyroidism Roopa Gupta MD [address] [place] [address] Referral ID Status Reason Start Date Expiration Date Visits V isits Requested Authorized [id number] Closed Specialty 06/29/2019 06/28/2020 1 1 Services [...] patient would [place] drive [place] [facility] [place] Encounter Details Date Type Department Care Team Description 06/28/2019 Telephone SE Endocrinology Valerie Major MD [address], [place] [id number] Social History Tobacco Use Types Packs/Day Years [...] Major MD - 06/28/2019 2:24 PM CDT [facility] Dr. Gupta, Tried reaching your office currently but unable to. See that she is moderately hyperthyroid. 2 additional lab tests needed-total T3 and thyrotropin receptor antibody. We can see her GRAYSON in person or via telehealth visit in endocrine. Please let us know so we can arrange. Thanks, Valerie Og nurse, FYI Telephone Encounter - Jo Ann Anaya MA - 06/28/2019 1:41 PM CDT Please review Dr. Gupta's note. Telephone Encounter - Cristiano Stratton - 06/28/2019 1:[address] Gupta called from [place] wanting to know what would be needed for labs to be seen in Endocrinology. Please give him a call if need to discuss anything at all. documented in this encounter Plan of Treatment Scheduled Referrals Name Type Priority Associated Diagnoses Order S [facility] Ambulatory referral Outpatient Routine Hyperthyroidism Order ed: to Endocrinology Referral 06/29/2019 documented as of this encounter Results (ABNORMAL) Thyrotropin receptor antibody (06/28/2019 3:58 PM CDT) [facility] Method Time Signature Thyrotropin 2.76 (H) 0.00 - 06/29/2019 [facility] Receptor Ab 1.75 IU/L 7:45 PM [...] respectively (97.5th percenti les). Test Performed by: [facility] [address] [place] [address] 34 Business Economist: Butch Guerrero M.D. Ph. D.; CLIA# [id number] Specimen Anatomical Collection Method Collection Time Receive d Time (Source) Location / / Volume Laterality Blood (Blood, 06/28/2019 3:58 PM 06/29/19 1:58 Venous) CDT PM CDT D. Raheel Gupta MD LAB BLOOD ORDERABLES Performing Organization Address City/State/ZIP Code Phon e Number [facility] see result attachment for specific address (ABNORMAL) T3, free (06/28/2019 3:58 PM CDT) P athologist Signature T3, Free 7.0 (H) 2.8 - 4.4 06/29/2019 [facility] pg/mL 7:51 PM CDT LABORATORIES Comment: Test Performed by: [facility] [address] [place] [address] Business Economist: Butch Guerrero M.D. Ph. D.; CLIA# [id number] Specimen Anatomical Collection Method Collection Time Receive d Time (Source) Location / / Volume Laterality Blood (Blood, 06/28/2019 3:58 PM 06/29/19 1:58 Venous) CDT PM CDT D. Raheel Gupta MD LAB BLOOD ORDERABLES Performing Organization Address City/State/ZIP Code Phon e Number [facility] see result attachment for specific address documented in this encounter Visit Diagnoses Diagnosis Hyperthyroidism - Primary Thyrotoxicosis without mention of goiter or other cause, without mention of thyrotoxic crisis or storm documented in this encounter Care Teams Instrument Fitter Relationship Specialty Start Date End Date Tiffanie Mcgovern APRN, MACHINE SET UP PCP - General 10/14/17 07/14/19 100 [facility] [place] [address] documented as of this encounter
--- OUTSIDE RECORDS SUMMARY | 2022-01-22 10:10 | XMS_ITS | Encounter Summary ---
:1970 Author Organization [facility] Address [address] [place] [address] Care Team Providers Name Role Phone Tiffanie Mcgovern STICKER MACHINE OPERATOR, NANNY/HOUSEHOLD MANAGER Primary Care Provider [phone] Encounter Details Date Type Department Care Team Description 06/17/2019 Orders Only Rogelio Guerrero Tiffanie Mcgovern, Arthralgia, [address] STICKER MACHINE OPERATOR, KYLE unspecified joint [place] [address] (Primary Dx) [address] [place] [address] Social History Tobacco Use Types Packs/Day Years [...] Add-On Test Request (06/17/2019 2:35 PM CDT) [facility] Method Time Signature Add-on Testing SEE BELOW 06/17/2019 [facility] 2:41 PM CDT [facility] Comment: TPO added to [id number] Specimen Anatomical Collection Method Collection Time Receive d Time (Source) Location / / Volume Laterality 06/17/2019 2:35 PM 0 2:35 CDT PM CDT Tiffanie Mcgovern APRN, KYLE LAB BLOOD ORDERABLES Performing Organization Address City/State/ZIP Code Phon e Number [facility] [address] [place] [address] documented in this encounter Visit Diagnoses Diagnosis Arthralgia, unspecified joint - Primary documented in this encounter Care Teams Underbaster Relationship Specialty Start Date End Date Tiffnaie Mcgovern APRN, NANNY/HOUSEHOLD MANAGER PCP - General 10/14/17 07/14/[address] [place] [address] documented as of this encounter
--- OUTSIDE RECORDS SUMMARY | 2022-01-22 10:10 | XMS_ITS | Encounter Summary ---
:1970 Author Organization [facility] Address [address] [place] [address] Care Team Providers Name Role Phone Tiffanie Mcgovern APRN, SOCIAL WORK SUPERVISOR Primary Care Provider [phone] Encounter Details Date Type Department Care Team Description 06/16/2019 Lab [place] Arthralgia, unspecified join t [address] [place] [address] Social History Tobacco Use Types [...] Thyroperoxidase (TPO) Ab (06/16/2019 9:03 AM CDT) [facility] Method Time Signature Thyroid 9.3 (H) <9.0 06/18/2019 [facility] Peroxidase IU/mL 1:58 PM CDT LABORATORIES (TPO) Ab Comment: Test Performed by: [facility] [address] [place] [address] Retail Sales Representative: Butch Guerrero M.D. Ph. D.; CLIA# [id number] Specimen Anatomical Collection Method Collection Time Receive d Time (Source) Location / / Volume Laterality 06/16/2019 9:03 AM 0 CDT 10:09 PM CDT Tiffanie Mcgovern APRN, CNP LAB BLOOD ORDERABLES Performing Organization Address City/State/ZIP Code Phon e Number [facility] see result attachment for specific address (ABNORMAL) T4, free (06/16/2019 9:03 AM CDT) athologist Signature Free T4 3.30 (H) 0.78 - 2.19 06/17/2019 [facility] ng/dL 3:56 PM CDT CENTER LABORATORY Comment: [...] Organization Address City/State/ZIP Code Phon e Number [facility] [address] [place] [id number] Glomerular filtration rate (GFR) (06/16/2019 9:03 AM CDT) athologist Signature GFR >60 06/16/2019 [facility] 12:28 PM CDT [facility]ENTER [facility] >60 06/16/2019 [facility] [place]orran GFR 12:28 PM CDT [facility]ENTER [facility] Comment: GFR calculated from serum creatinine v alue Chronic Kidney Disease less than 60 mL/m in/1.73 m2 Kidney Failure less than 15 mL/min/1.73 m2 Note: effective 07/23/06 IDMO-Traceable MDRD Study Equation used. Specimen Anatomical Collection Method Collection Time Receive d Time (Source) Location / / Volume Laterality 06/16/2019 9:03 AM 0 9:03 CDT AM CDT Tiffanie M Mcgovern SERVICE OPERATOR, SOCIAL WORK SUPERVISOR LAB BLOOD ORDERABLES Performing Organization Address City/State/ZIP Code Phon e Number [facility] [address] [place] [address] (ABNORMAL) CBC Branch Off w/Diff (06/16/2019 9:03 AM CDT) [facility] Method Time Signature WBC 4.8 3.5 [...] FALLS Lymphocytes % 22.3 18.0 - 06/16/2019 [facility] 45.0 % 11:00 AM CDT FALLS [...] FALL[place] Granulocytes/Leslie 3.1 2.1 - 8.7 06/16/2019 [facility] [place] [facility] trophils K/uL 11:00 AM CDT FALL[place] Absolute Specimen Anatomical Collection Method Collection Time Receive d Time (Source) Location / / Volume Laterality Blood 06/16/2019 9:03 AM 0 9:12 CDT AM CDT Tiffanie Mcgovern APRN, CNP LAB BLOOD ORDERABLES Performing Organization Address City/[facility]/ZIP Code Phon e Number [facility] [place] ROBERT GUERRERO [address] [place] [address] ESR-Sed rate (06/16/2019 9:03 AM CDT) athologist Signature Sed Rate 23 0 - 29 06/16/2019 [facility] mm/hr 1:44 PM CDT [facility]ENTER [facility] Specimen Anatomical Collection Method Collection Time Receive d Time (Source) Location / / Volume Laterality Blood 06/16/2019 9:03 AM 0 CDT 11:53 AM CDT Tiffanie Mcgovern APRN, CNP LAB BLOOD ORDERABLES Performing Organization Address City/[facility]/ZIP Code Phon e Number [facility] [address] [place] [address] C-reactive protein ([facility] preferred) (06/16/2019 9:03 AM CDT) athologist Signature CRP 2.0 0.0 - 4.9 06/16/2019 [facility] mg/L 12:28 PM CDT [facility]ENTER [facility] Specimen Anatomical Collection Method Collection Time Receive d Time (Source) Location / / Volume Laterality Blood 06/16/2019 9:03 AM 0 CDT 11:53 AM CDT Tiffanie Mcgovern APRN, CNP LAB BLOOD ORDERABLES Performing Organization Address City/State/ZIP Code Phon e Number [facility] [address] [place] [address] ROCÍO (06/16/2019 9:03 AM CDT) athologist Signature ROCÍO 0.7 <=1.0 06/17/2019 [facility] (Negative) 4:17 PM CDT LABORATORIES U Comment: ADDITIONAL INFORMATIO N Method: Enzyme-linked immunoassay using HEp-2 nuclear extract supplemented with purified antig ens. Test Performed by: [facility] [address] [place] [address] Retail Sales Representative: Butch Guerrero M.D. Ph. D.; IA# [id number] Specimen Anatomical Collection Method Collection Time Receive d Time (Source) Location / / Volume Laterality Blood (Blood, 06/16/2019 9:03 AM 06/16/19 2:16 Venous) CDT PM CDT Tiffanie Mcgovern APRN, CNP LAB BLOOD ORDERABLES Performing Organization Address City/State/ZIP Code Phon e Number [facility] see result attachment for specific address Rheumatoid factor (06/16/2019 9:03 AM CDT) P athologist Signature Rheumatoid 6 1 - 11 06/16/2019 [facility] Factor IU/mL 12:48 PM T [facility] Specimen Anatomical Collection Method Collection Time Receive d Time (Source) Location / / Volume Laterality Blood (Blood, 06/16/2019 9:03 AM 06/16/19 Venous) CDT 12:01 PM CDT Tiffanie Mcgovern APRN, CNP LAB BLOOD ORDERABLES Performing Organization Address City/[facility]/ZIP Code Phon e Number [facility] [address] [place] [address] (ABNORMAL) Thyroid Function [place] (06/16/2019 9:03 AM CDT) [facility] Method Time Signature TSH, Sensitive <0.01 (L) 0.46 - 06/17/2019 [place] 4.68 mIU/L 2:16 PM CDT [facility] Comment: The results from [...] Organization Address City/State/ZIP Code Phon e Number [facility] [address] [place] [address] Cyclic citrullinated peptide antibody (06/16/2019 9:03 AM CDT) athologist [facility] Cyclic <15.6 <20.0 06/17/2019 [facility] Citrullin (Negative) 7:02 PM CDT LABORATORIES Peptide Ab U Comment: [facility] [address] [place] [address] Retail Sales Representative: Butch Guerrero M.D. Ph. D.; CLIA# [id number] Specimen Anatomical Collection Method Collection Time Receive d Time (Source) Location / / Volume Laterality Blood (Blood, 06/16/2019 9:03 AM 06/16/19 20 2:16 Venous) CDT PM CDT Tiffanie Mcgovern APRN, CNP LAB BLOOD ORDERABLES Performing Organization Address City/[facility]/ZIP Code Phon e Number [facility] see result attachment for specific address Vitamin D, Total (06/16/2019 9:03 AM CDT) athologist Signature Vitamin D, 56.3 ng/mL 06/16/2019 [facility] Total 12:38 PM CDT CENTER LAB[facility]ATORY Comment: [...] Organization Address City/State/ZIP Code Phon e Number [facility] [address] [place] [address] (ABNORMAL) Comprehensive metabolic panel (06/16/2019 9:03 AM CDT) [facility] Method Time Signature Total Protein 7.1 6.3 - 8.2 06/16/2019 [facility] g/dL 12:28 PM [facility] Albumin, Serum 4.0 3.5 - 5.0 06/16/2019 [place] g/dL 12:28 PM [facility] Total Bilirubin 0.9 0.1 - 1.0 06/16/2019 [place] mg/dL 12:28 PM [facility] AST 60 (H) 8 - 43 U/L 06/16/2019 [place] 12:28 PM [facility] Alkaline 42 38 - 128 06/16/2019 [place] Phosphatase U/L 12:28 PM [facility] ALT (SGPT) 56 (H) 0 - 34 U/L 06/16/2019 [place] 12:28 PM [facility] Sodium 134 (L) 135 - 145 06/16/2019 [place] mEq/L 12:28 PM [facility] Potassium 4.0 3.5 - 5.1 06/16/2019 [place] mEq/L 12:28 PM [facility] Chloride 98 98 - 107 06/16/2019 [place] mEq/L 12:28 PM [facility] CO2 26 22 - 29 06/16/2019 [place] mmol/L 12:28 PM [facility] BUN 12 5 - 25 06/16/2019 [place] mg/dL 12:28 PM [facility] Creatinine 0.5 0.4 - 1.2 06/16/2019 [place] mg/dL 12:28 PM [facility] Glucose 156 (H) 70 - 100 06/16/2019 [place] mg/dL 12:28 PM [facility] Calcium, Total,S 9.8 8.4 - 10.2 06/16/2019 [place] mg/dL 12:28 PM [facility] Fasting? No 06/16/2019 [place] 9:12 AM [facility] Specimen Anatomical Collection Method Collection Time Receive d Time (Source) Location / / Volume Laterality Blood 06/16/2019 9:03 AM 0 CDT 11:53 AM CDT Tiffanie Mcgovern APRN, CNP LAB BLOOD ORDERABLES Performing Organization Address City/State/ZIP Code Phon e Number [facility] [address] [place] [address] documented in this encounter Visit Diagnoses Diagnosis Arthralgia, unspecified joint documented in this encounter Care Teams Retail Interior Designer Relationship Specialty Start Date End Date Tiffanie Mcgovern APRN, SOCIAL WORK SUPERVISOR PCP - General 10/14/17 07/14/19 100 [facility] [place] [address] documented as of this encounter
--- OUTSIDE RECORDS SUMMARY | 2022-01-22 10:10 | XMS_ITS | Encounter Summary ---
:1970 Author Organization [facility] Address [address] [place] [address] Care Team Providers Name Role Phone Tiffanie Mcgovern APRN, MATERIALS ENGINEERING TECHNICIAN Primary Care Provider [phone] Encounter Details Date Type Department Care Team Description 05/17/2019 Lab [place] Guerrero SOB (shortness of breath); [address] Cough; [place] [address] Chills; [phone] Fever, unspecif ied fever cause; Body aches [...] Branch Off w/Diff (05/17/2019 11:58 AM CDT) [facility] gist Method Time Signature WBC 5.1 3.5 - 10.5 05/17/2019 [facility] K/uL 12:05 PM CDT FALLS RBC 4.19 3.90 - 05/17/2019 [facility] 5.00 M/uL 12:05 PM CDT [place] Hemoglobin 13.1 12.0 - 05/17/2019 [facility] 15.5 g/dL 12:05 PM CDT FALL[place] Hematocrit 36.9 35.0 - 05/17/2019 [facility] 44.0 % 12:05 PM CDT FALLS Platelets 276 150 - 450 05/17/2019 [facility] K/uL 12:05 PM CDT [place] MCV 88.1 81.6 - 05/17/2019 [facility] 98.3 fL 12:05 PM CDT [place] MCH 31.3 26.0 - 05/17/2019 [facility] 32.0 pg 12:05 PM CDT [place] MCHC 35.5 32.0 - 05/17/2019 [facility] 36.0 g/dL 12:05 PM CDT [place] RDW 12.1 11.9 - 05/17/2019 [facility] 15.5 % 12:05 PM CDT [place] Lymphocytes % 25.9 18.0 - 05/17/2019 [facility] JONES 45.0 % 12:05 PM CDT [place] Mid-size Cells 11.1 (H) 3.3 - 10.1 05/17/2019 [facility] JONES % 12:05 PM CDT [place] Granulocytes/Leslie 63.0 45.8 - 05/17/2019 [facility] JONES trophils 73.7 % 12:05 PM CDT [place] Lymphocytes 1.3 0.9 - 2.9 05/17/2019 [facility] Absolute K/uL 12:05 PM CDT [place]ALL[place] MIDS Absolute 0.6 0.2 - 0.8 05/17/2019 [facility]ES K/uL 12:05 PM CDT [place] Granulocytes/Leslie 3.2 2.1 - 8.7 05/17/2019 [facility] trophils K/uL 12:05 PM CDT FALLS Absolute Specimen Anatomical Collection Method Collection Time Receive d Time (Source) Location / / Volume Laterality 05/17/2019 11:58 05/17/2019 AM CDT 12:02 PM CDT Roopa Lopez MD LAB BLOOD ORDERABLES Performing Organization Address City/[facility]/ZIP Code Phon e Number [facility] ROBERT GUERRERO [address] [place] [address] Rapid influenza A/B antigens (05/17/2019 11:35 AM CDT) athologist Signature Rapid NEGATIVE Negative 05/17/2019 [facility] ROBERT Influenza A 12:03 PM CDT [place] Rapid NEGATIVE Negative 05/17/2019 [facility] JONES Influenza B 12:03 PM CDT [place] Comment: A negative test is presumptive and does not exclude influenza virus infection. Specimen Anatomical Collection Method Collection Time Receive d Time (Source) Location / / Volume Laterality Swab 05/17/2019 11:35 05/17/2019 (Nasopharynx) AM CDT 11:46 AM CDT Roopa Lopez MD LAB BODY FLUIDS AND STOOLS O RDERABLES Performing Organization Address City/[facility]/ZIP Code Phon e Number [facility] ROBERT GUERRERO [address] [place] [address] documented in this encounter Visit Diagnoses Diagnosis SOB (shortness of breath) Shortness of breath Cough Chills Chills (without fever) Fever, unspecified fever cause Body aches Generalized pain documented in this encounter Care Teams Mechanical Manufacturing Technician Relationship Specialty Start Date End Date Tiffanie Mcgovern, MEDIA PROMOTER, MATERIALS ENGINEERING TECHNICIAN PCP - General 10/14/17 07/14/19 100 [facility] [place] [address] documented as of this encounter
--- OUTSIDE RECORDS SUMMARY | 2022-01-22 10:10 | XMS_ITS | Encounter Summary ---
:1970 Author Organization [facility] Address [address] [place] [address] Care Team Providers Name Role Phone Tiffanie Mcgovern APRN, KYLE Primary Care Provider [phone] Encounter Details Date Type Department Care Team Description 12/16/2018 Orders Only WagonerTiffanie Perera, [address] [place], KYLE [place] [address] [address] [facility] [address] [address] [phone] [place], [place] [address] Social History Tobacco Use [...] on filedocumented in this encounter Care Teams Analyst Programmer Relationship Specialty Start Date End Date Tiffanie Mcgovern APRN, AUTOMATION MANAGER PCP - General 10/14/17 07/14/19 100 [place] [address] documented as of this encounter
--- OUTSIDE RECORDS SUMMARY | 2022-01-22 10:10 | XMS_ITS | Encounter Summary ---
:1970 Author Organization [facility] Address [address] [place] [address] Care Team Providers Name Role Phone Tiffanie Mcgovern APRN, STEEL ANALYST Primary Care Provider [phone] Encounter Details Date Type Department Care Team Description 06/09/2019 Telemedicine [place] [place] GUSTAVO (generalized [address] MD Raheel anxiety disorder) [place], [place] [address] (Primary Dx) [phone] [place] [address] Social History Tobacco Use Types Packs/Day Years [...] conducted by telephone without visualization by either libertarian due to the national emergency created by the pandemic. Therefore no physical exam was possible and we are unable to perform vital signs or other [id number] testing or assessments. The patient understands the [...] underwent a complete and full evaluation at [facility] they did not notice any hardening of [...] day to 240 mg/day she saw her re dye hand they agreed with pro cess and she [...] disorder documented in this encounter Care Teams Grocery Clerk Selling Relationship Specialty Start Date End Date Tiffanie Mcgovern APRN, STEEL ANALYST PCP - General 10/14/17 07/14/19 100 [facility] [place] [address] documented as of this encounter
--- OUTSIDE RECORDS SUMMARY | 2022-01-22 10:10 | XMS_ITS | Encounter Summary ---
:1970 Author Organization [facility] Address [address] [place] [address] Care Team Providers Name Role Phone Tiffanie Mcgovern APRN, CNP Primary Care Provider [phone] Reason for Visit Reason Comments Joint Pain Encounter Details Date Type Department Care Team Description 06/15/2019 Telemedicine [place] Arthral[place], [address] M, [place] unspecified joint [place] Ramirez [address] (Primary Dx) [address] [place] [address] Social History Tobacco Use Types Packs/Day Years [...] as of this encounter Patient Instructions Patient InstructionsChrisgriselda Mcgovern APRN, CNP - 06/15/2019 1:20 PM CDT Please come in for labs documented in this encounter Progress Notes Tiffanie Mcgovern APRN, CNP - 06/15/2019 1:20 PM CDT Telephone Visit Subjective Patient ID: Laura Novak is a 48 y.o. female patient of Tiffanie Mcgovern APRN, CNP, who is called on the phone from [facility] to discuss Chief Complaint Patient presents with [...] time.. She has reached out to her transport coordinator who did a Holter monitor they have not return the Holter monitor and therefore the results are unavailable. The transport coordinator is going to be referring her to [...] ([facility] preferred) ROCÍO Rheumatoid factor Thyroid Function [place] Cyclic citrullinated peptide antibody Vitamin D, Total [...] patient will continue her work-up with the transport coordinator regarding palpitations during this coronavirus pandemic they [...] Comprehensive metabolic panel (06/16/2019 9:03 AM CDT) [facility] Time Signature Total Protein 7.1 6.3 - 8.2 06/16/2019 [place] g/dL 12:28 PM [facility] Albumin, Serum 4.0 3.5 - 5.0 06/16/2019 [place] g/dL 12:28 PM [facility] Total Bilirubin 0.9 0.1 - 1.0 06/16/2019 [place] mg/dL 12:28 PM [facility] AST 60 (H) 8 - 43 U/L 06/16/2019 [place] 12:28 PM [facility] Alkaline 42 38 - 128 06/16/2019 [place] Phosphatase U/L 12:28 PM [facility] ALT (SGPT) 56 (H) 0 - 34 U/L 06/16/2019 [place] 12:28 PM [facility] Sodium 134 (L) 135 - 145 06/16/2019 [place] mEq/L 12:28 PM [facility] Potassium 4.0 3.5 - 5.1 06/16/2019 [place] mEq/L 12:28 PM [facility] Chloride 98 98 - 107 06/16/2019 [place] mEq/L 12:28 PM [facility] CO2 26 22 - 29 06/16/2019 [place] mmol/L 12:28 PM [facility] BUN 12 5 - 25 06/16/2019 [place] mg/dL 12:28 PM [facility] Creatinine 0.5 0.4 - 1.2 06/16/2019 [place] mg/dL 12:28 PM [facility] Glucose 156 (H) 70 - 100 06/16/2019 [place] mg/dL 12:28 PM [facility] Calcium, Total,S 9.8 8.4 - 10.2 06/16/2019 [place] mg/dL 12:28 PM [facility] Fasting? No 06/16/2019 [place] 9:12 AM [facility] Specimen Anatomical Collection Method Collection Time Receive d Time (Source) Location / / Volume Laterality Blood 06/16/2019 9:03 AM 0 CDT 11:53 AM CDT Tiffanie Mcgovern APRN, LOAN INSPECTOR LAB BLOOD ORDERABLES Performing Organization Address City/State/ZIP Code Phon e Number [facility] [address] [place] [address] Vitamin D, Total (06/16/2019 9:03 AM CDT) P athologist Signature Vitamin D, 56.3 ng/mL 06/16/2019 [facility] Total 12:38 PM [facility] Comment: Deficient ?<20 ? ng/mL [...] [facility] [address] [place] [address] Cyclic citrullinated peptide antibody (06/16/2019 9:03 AM CDT) P athologist Signature Cyclic <15.6 <20.0 06/17/2019 [facility] Citrullin (Negative) 7:02 PM CDT LABORATORIES Peptide Ab U Comment: Test Performed by: [facility] [address] [place], [place] [address] Um Specialist: Butch Guerrero M.D. Ph. D.; CLIA# [id number] Specimen Anatomical Collection Method Collection Time Receive d Time (Source) Location / / Volume Laterality Blood (Blood, 06/16/2019 9:03 AM 06/16/19 2:16 Venous) CDT PM CDT Tiffanie Mcgovern APRN, CNP LAB BLOOD ORDERABLES Performing Organization Address City/[facility]/ZIP Code Phon e Number [facility] see result attachment for specific address (ABNORMAL) Thyroid Function [place] (06/16/2019 9:03 AM CDT) Patholo gist Method Time Signature TSH, Sensitive <0.01 (L) 0.46 - 06/17/2019 [place] 4.68 mIU/L 2:16 PM CDT [facility] Comment: The results [...] Laterality Blood (Blood, 06/16/2019 9:03 AM 06/17/19 Venous) CDT 12:05 PM CDT Tiffanie Mcgovern APRN, CNP LAB BLOOD ORDERABLES Performing Organization Address City/[facility]/ZIP Code Phon e Number [facility] [address] [place] [address] Rheumatoid factor (06/16/2019 9:03 AM CDT) athologist Signature Rheumatoid 6 1 - 11 [facility] Factor IU/mL 12:48 PM [facility] Specimen Anatomical Collection Method Collection Time Receive d Time (Source) Location / / Volume Laterality Blood (Blood, 06/16/2019 9:03 AM 06/16/19 20 Venous) CDT 12:01 PM CDT Tiffanie Mcgovern APRN, CNP LAB BLOOD ORDERABLES Performing Organization Address [facility] Phon e Number [facility] [address] [place] [address] ROCÍO (06/16/2019 9:03 AM CDT) athologist [facility] ROCÍO 0.7 <=1.0 06/17/2019 [facility] (Negative) 4:17 PM CDT LABORATORIES U Comment: ADDITIONAL INFORMATIO N Method: Enzyme-linked immunoassay using HEp-2 nuclear extract supplemented with purified antig ens. Test Performed by: [facility] [address] [place] [address] Um Specialist: Butch Guerrero M.D. Ph. D.; CLIA# [id number] Specimen Anatomical Collection Method Collection Time Receive d Time (Source) Location / / Volume Laterality Blood (Blood, 06/16/2019 9:03 AM 06/16/19 20 2:16 Venous) CDT PM CDT Tiffanie Mcgovern APRN, CNP LAB BLOOD ORDERABLES Performing Organization Address [facility]/ZIP [facility] Phon e Number [facility] see result attachment for specific address C-reactive protein ([facility] preferred) (06/16/2019 9:03 AM CDT) athologist [facility] CRP 2.0 0.0 - 4.9 06/16/2019 [facility] mg/L 12:28 PM CDT CENTER LABORATORY Specimen Anatomical Collection Method Collection Time Receive d Time (Source) Location / / Volume Laterality Blood 06/16/2019 9:03 AM 0 CDT 11:53 AM CDT Tiffanie Mcgovern APRN, CNP LAB BLOOD ORDERABLES Performing Organization Address City/[facility]/ZIP Code Phon e Number [facility] [address] [place] [address] ESR-Sed rate (06/16/2019 9:03 AM CDT) P athologist Signature Sed Rate 23 0 - 29 06/16/2019 [facility] mm/hr 1:44 PM CDT CENTER LAB[facility]ORY Specimen Anatomical Collection Method Collection Time Receive d Time (Source) Location / / Volume Laterality Blood 06/16/2019 9:03 AM 0 CDT 11:53 AM CDT Tiffanie Mcgovern APRN, CNP LAB BLOOD ORDERABLES Performing Organization Address City/[facility]/ZIP Code Phon e Number [facility] [address] [place] [address] (ABNORMAL) CBC Branch Off w/Diff (06/16/2019 9:03 AM CDT) Patholo gist Method Time Signature WBC 4.8 3.5 - 10.5 06/16/2019 [facility] [place] K/uL 11:00 AM CDT [place] RBC 4.49 3.90 - 06/16/2019 [facility] 5.00 M/uL 11:00 AM CDT [place] Hemoglobin 13.6 12.0 - 06/16/2019 [facility] [place] 15.5 g/dL 11:00 AM CDT [place] Hematocrit 39.1 35.0 - 06/16/2019 [facility] [place] 44.0 % 11:00 AM CDT [place] Platelets 279 150 - 450 06/16/2019 [facility] [place] K/uL 11:00 AM CDT [place] MCV 87.1 81.6 - 06/16/2019 [facility] [place] 98.3 fL 11:00 AM CDT [place] MCH 30.3 26.0 - 06/16/2019 [facility] [place] 32.0 pg 11:00 AM CDT [place] MCHC 34.8 32.0 - 06/16/2019 [facility] [place] 36.0 g/dL 11:00 AM CDT [place] RDW 11.7 (L) 11.9 - 06/16/2019 [facility] [place] 15.5 % 11:00 AM CDT [place] Lymphocytes % 22.3 18.0 - 06/16/2019 [facility] [place] 45.0 % 11:00 AM CDT [place] Mid-size Cells 12.2 (H) 3.3 - 10.1 06/16/2019 [facility] % 11:00 AM CDT [place] Granulocytes/Leslie 65.5 45.8 - 06/16/2019 [facility] [place] trophils 73.7 % 11:00 AM CDT [place] Lymphocytes 1.1 0.9 - 2.9 06/16/2019 [facility] [place] Absolute K/uL 11:00 AM CDT [place] MIDS Absolute 0.6 0.2 - 0.8 06/16/2019 [facility] [place] [facility] [place] K/uL 11:00 AM CDT [place] Granulocytes/Leslie 3.1 2.1 - 8.7 06/16/2019 [facility] [place] trophils K/uL 11:00 AM CDT [place] Absolute Specimen Anatomical Collection Method Collection Time Receive d Time (Source) Location / / Volume Laterality Blood 06/16/2019 9:03 AM 0 9:12 CDT AM CDT Tiffanie Mcgovern APRN, CNP LAB BLOOD ORDERABLES Performing Organization Address City/State/ZIP Code Phon e Number [facility] [place] [address] [place] [address] documented in this encounter Visit Diagnoses Diagnosis Arthralgia, unspecified joint - Primary documented in this encounter Care Teams Service Writer Relationship Specialty Start Date End Date Tiffanie Mcgovern APRN, LOAN INSPECTOR PCP - General 10/14/17 07/14/19 100 [facility] [place] [address] documented as of this encounter
--- OUTSIDE RECORDS SUMMARY | 2022-01-22 10:10 | XMS_ITS | Encounter Summary ---
:1970 Author Organization [facility] Address [address] [place] [address] Care Team Providers Name Role Phone Tiffanie Mcgovern APRN, SUPERVISOR ADVICE Primary Care Provider [phone] Reason for Referral Hospital - Outpatient (Routine) - Closed Specialty Diagnoses / Procedures Referred By Contact Refer red To Contact Radiology Diagnoses Valerie Major MD Nuclear Medicine Procedures Nuclear medicine thyroid uptake with scan single 210 [facility] [address] [place] [address] [place] [address] Phone: Fax: Referral ID Status Reason Start Date Expiration Date Visits Requ ested Visits Authorized [id number] Closed 07/12/2019 01/08/2020 1 1 Encounter Details Date Type Department Care Team Description 07/12/2019 Orders Only SE Endocrinology Valerie Major MD [address] [place] [address] Social History Tobacco Use Types [...] on filedocumented in this encounter Care Teams Sports Anchor Relationship Specialty Start Date End Date Tiffanie Mcgovern, BULB WEEDER, SUPERVISOR ADVICE PCP - General 10/14/17 07/14/19 100 [facility] [place] [address] documented as of this encounter
--- OUTSIDE RECORDS SUMMARY | 2022-01-22 10:11 | XMS_ITS | Encounter Summary ---
:1970 Author Organization [facility] Address [address] [place] [address] Care Team Providers Name Role Phone Tiffanie Mcgovern APRN, CNP Primary Care Provider [phone] Encounter Details Date Type Department Care Team Description 10/27/2018 Telephone BodeTiffanie Perera, [address] [place] Ramirez [address] 100 [facility] [address] [phone] [place], [place] [address] Social History Tobacco Use [...] on filedocumented in this encounter Care Teams Tube Former Operator Relationship Specialty Start Date End Date Tiffanie Mcgovern, BAGGING SALVAGER, MACHINE PACKAGER PCP - General 10/14/17 07/14/19 100 [facility] [place] [address] documented as of this encounter
--- OUTSIDE RECORDS SUMMARY | 2022-01-22 10:11 | XMS_ITS | Encounter Summary ---
:[address] [facility] Address [address] [place] [address] Care Team Providers Name Role Phone Tiffanie Mcgovern APRN, TOBACCO SAMPLER Primary Care Provider [phone] Reason for Visit Reason Comments Muscle Pain Sore Throat Encounter Details Date Type Department Care Team Description 07/09/2018 Office Visit Tiffanie Acuna Pharyngitis, unspecified bailey ology (Primary Dx); [address] M, [place] Screening for diabetes mellitus; Robert Guerrero [place] [address] Influenza-like illness [address] [place] [address] Social History Tobacco Use Types Packs/Day Years [...] Estab Patient Visit Subjective Patient ID: Laura Novka is a 47 y.o. female presenting for [...] this plan of care. Tiffanie Mcgovern APRN, TOBACCO SAMPLER documented in this encounter Plan of Treatment Not on filedocumented as of this encounter Results Rapid strep screen (07/09/2018 4:00 PM CDT) P athologist Signature Strep A Ag, NEGATIVE Negative 07/09/2018 [facility] JONES Rapid 4:13 PM CDT [place] Specimen Anatomical Collection Method Collection Time Receive d Time (Source) Location / / Volume Laterality Swab (Throat 07/09/2018 4:00 PM 9 4:04 Swab) CDT PM CDT Tiffanie Mcgovern APRN, CNP LAB BODY FLUIDS AND STOOL S ORDERABLES Performing Organization Address City/[facility]/ZIP Code Phon e Number [facility] [place] [address] [place] [address] Lyme Disease Serology (07/09/2018 3:56 PM CDT) [facility] Method Time Signature Lyme Disease Negative Negative 07/11/2018 [facility] Serology 12:29 PM CDT LABORATORIES Comment: No evidence of antibodies to B. burgdorf serenity detected. False negative results may occur in rece ntly infected patients (<=2 weeks) due to low or undet ectable antibody levels to B. burgdorferi. If recent expo sure is suspected, a second sample should be collected and tested in 2-4 weeks. Test Performed by: [facility] [address] [place], [place] [address] Specimen Anatomical Collection Method Collection Time Receive d Time (Source) Location / / Volume Laterality Blood (Blood, 07/09/2018 3:56 PM 07/11/19 19 1:20 Venous) CDT PM CDT Tiffanie Mcgovern APRN, CNP LAB BLOOD ORDERABLES Performing Organization Address City/[facility]/ZIP Code Phon e Number [facility] see result attachment for specific address (ABNORMAL) CBC Branch Off w/Diff (07/09/2018 3:56 PM CDT) [facility] Method Time Signature WBC 12.0 (H) 3.5 - 10.5 07/09/2018 [facility] JONES K/uL 4:07 PM CDT [place] RBC 4.13 3.90 - 07/09/2018 [facility] JONES 5.00 M/uL 4:07 PM CDT [place] Hemoglobin 13.6 12.0 - 07/09/2018 [facility] JONES 15.5 g/dL 4:07 PM CDT [place] Hematocrit 37.9 35.0 - 07/09/2018 [facility] JONES 44.0 % 4:07 PM CDT [place] Platelets 320 150 - 450 07/09/2018 [facility] [place] K/uL 4:07 PM CDT [place] MCV 91.8 81.6 - 07/09/2018 [facility] [place] 98.3 fL 4:07 PM CDT [place] MCH 32.9 (H) 26.0 - 07/09/2018 [facility] [place] 32.0 pg 4:07 PM CDT [place] MCHC 35.9 32.0 - 07/09/2018 [facility] [place] 36.0 g/dL 4:07 PM CDT [place] RDW 12.3 11.9 - 07/09/2018 [facility] [place] 15.5 % 4:07 PM CDT [place] Lymphocytes % 12.6 (L) 18.0 - 07/09/2018 [facility] [place]ES 45.0 % 4:07 PM CDT [place] Mid-size Cells 7.4 3.3 - 10.1 07/09/2018 [facility] [place] % 4:07 PM CDT [place] Granulocytes/Leslie 80.0 (H) 45.8 - 07/09/2018 [facility] [place] trophils 73.7 % 4:07 PM CDT [place] Lymphocytes 1.5 0.9 - 2.9 07/09/2018 [facility] [place] Absolute K/uL 4:07 PM CDT [place] MIDS Absolute 0.9 (H) 0.2 - 0.8 07/09/2018 [facility] [place] K/uL 4:07 PM CDT [place] Granulocytes/Leslie 9.6 (H) 2.1 - 8.7 07/09/2018 [facility] J[place]ES trophils K/uL 4:07 PM CDT [place] Absolute Specimen Anatomical Collection Method Collection Time Receive d Time (Source) Location / / Volume Laterality Blood (Blood, 07/09/2018 3:56 PM 07/10/19 19 4:05 Venous) CDT PM CDT Tiffanie Mcgovern APRN, KYLE LAB BLOOD ORDERABLES Performing Organization Address City/State/ZIP Code Phon e Number [facility] [place] [address] [place] [address] documented in this encounter Visit Diagnoses Diagnosis Pharyngitis, unspecified etiology - Prim yareli Screening for diabetes mellitus Influenza-like illness documented in this encounter Care Teams Auctioneer Automobile Relationship Specialty Start Date End Date Tiffanie Mcgovern APRN, TOBACCO SAMPLER PCP - General 10/14/17 07/14/19 100 [facility] [place] [address] documented as of this encounter
--- OUTSIDE RECORDS SUMMARY | 2022-01-22 10:11 | XMS_ITS | Encounter Summary ---
:1970 Author Organization [facility] Address [address] [place] [address] Care Team Providers Name Role Phone Tiffanie Mcgovern APRN, PRODUCER ARBORIST MANAGER Primary Care Provider [phone] Reason for Visit Reason Comments Shortness of Breath Dizziness Encounter Details Date Type Department Care Team Description 09/02/2018 Office Visit Roopa Caldwell History of coronary vasospas m (Primary Dx); [address] MD Raheel Shortness of breath Robert Guerre[place] [address]50 [facility] [address] [place] [address] Social History Tobacco Use Types Packs/Day Years [...] troponins kary they sent her down to [facility] all initial studies and tests were perfectly [...] 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 She has been [...] then called to her pharmacy she will fish bait picker on 80 mg immediate release tablet and she will take that tonight before she goes to bed. She will then fish bait picker a new tablet for 240 mg [...] breath documented in this encounter Care Teams Sane Nurse Relationship Specialty Start Date End Date Tiffanie Mcgovern, BRIDGE IRONWORKER HELPER, PRODUCER ARBORIST MANAGER PCP - General 10/14/17 07/14/19 100 [place] [address] documented as of this encounter
--- OUTSIDE RECORDS SUMMARY | 2022-01-22 10:11 | XMS_ITS | Encounter Summary ---
:1970 Author Organization [facility] Address [address] [place] [address] Care Team Providers Name Role Phone Tiffanie Mcgovern APRN, CASTING OPERATOR Primary Care Provider [phone] Encounter Details Date Type Department Care Team Description 07/09/2018 Lab Robert [place]erre[place] Screening for diabetes melli tus; [address] Pharyngitis, unspecified bailey ology; ERNESTO Ramirez [address] Influenza-like illness [phone] Social History Tobacco Use Types Packs/Day Years [...] A culture, throat (07/09/2018 4:00 PM CDT) [facility] Communication Science Method Time Signature Throat Strep Negative for 07/11/2018 [place] A Culture Group A 6:37 AM CDT [facility] Strep at 48 LABORATORY hrs. Specimen Anatomical Collection Method Collection Time Receive d Time (Source) Location / / Volume Laterality 07/09/2018 4:00 PM 9 CDT 12:21 PM CDT Tiffanie Mcgovern APRN, CNP LAB MICROBIOLOGY - GENERA L ORDERABLES Performing Organization Address City/[facility]/ZIP Code Phon e Number [facility] [address] [place] [address] Rapid strep screen (07/09/2018 4:00 PM CDT) P athologist Signature Strep A Ag, NEGATIVE Negative 07/09/2018 [facility] Proacta Rapid 4:13 PM CDT [place] Specimen Anatomical Collection Method Collection Time Receive d Time (Source) Location / / Volume Laterality Swab (Throat 07/09/2018 4:00 PM 9 4:04 Swab) CDT PM CDT Tiffanie Mcgovern APRN, CNP LAB BODY FLUIDS AND STOOL S ORDERABLES Performing Organization Address City/[facility]/ZIP Code Phon e Number [facility] [employer] [address] [place] [address] Lyme Disease Serology (07/09/2018 3:56 PM CDT) [facility] Communication Science Method Time Signature Lyme Disease Negative Negative 07/11/2018 [facility] Serology 12:29 PM CDT LABORATORIES Comment: No evidence of antibodies to B. burgdorf serenity detected. False negative results may occur in rece ntly infected patients (<=2 weeks) due to low or undet ectable antibody levels to B. burgdorferi. If recent expo sure is suspected, a second sample should be collected and tested in 2-4 weeks. Test Performed by: [facility] [address] [place] [address] 90 Specimen Anatomical Collection Method Collection Time Receive d Time (Source) Location / / Volume Laterality Blood (Blood, 07/09/2018 3:56 PM 07/11/19 19 1:20 Venous) CDT PM CDT Tiffanie Mcgovern APRN, CNP LAB BLOOD ORDERABLES Performing Organization Address City/State/ZIP Code Phon e Number [facility] LABORATORIES [facility] see result attachment for specific address (ABNORMAL) Manual Differential (after verif of auto) (07/09/2018 3:56 PM CDT) [facility] gist Method Time Signature Manual PERFORMED 07/10/2018 [place] Differential 1:30 PM CDT [facility] Neutrophils % 86.0 % 07/10/2018 [place] 1:27 PM CDT [facility] Lymphocytes % 9.0 % 07/10/2018 [place] 1:27 PM CDT [facility] Monocytes % 4.0 % 07/10/2018 [place] 1:27 PM CDT [facility] Eosinophils % 1.00 % 07/10/2018 [place] 1:27 PM CDT [facility] Basophils % 0.0 % 07/10/2018 [place] 1:27 PM CDT [facility] Absolute 10.3 (H) 1.7 - 7.0 07/10/2018 [place] Neutrophils K/uL 1:27 PM CDT [facility] Lymphocytes 1.1 0.9 - 2.9 07/10/2018 [place] Absolute K/uL 1:27 PM CDT [facility] Monocytes 0.5 0.3 - 0.9 07/10/2018 [place] Absolute K/uL 1:27 PM CDT [facility] Eosinophils 0.1 0.1 - 0.5 07/10/2018 [place] Absolute K/uL 1:27 PM CDT [facility] Basophils 0.0 0.0 - 0.1 07/10/2018 [place] Absolute K/uL 1:27 PM [facility] Slide Review PERFORMED 07/10/2018 [place] 1:30 PM [facility] RBC Morphology NORMAL 07/10/2018 [place] 1:30 PM [facility] PLT Morphology ADEQUATE 07/10/2018 [place] 1:30 PM [facility] Total Counted 100 07/10/2018 [place] 1:30 PM [facility] Specimen Anatomical Collection Method Collection Time Receive d Time (Source) Location / / Volume Laterality 07/09/2018 3:56 PM 9 CDT 12:04 PM CDT Tiffanie Mcgovern APRN, CNP LAB BLOOD ORDERABLES Performing Organization Address City/[facility]/ZIP Code Phon e Number [facility] [address] [place] [address] Fasting ? (07/09/2018 3:56 PM CDT) P athologist Signature Fasting? No 07/09/2018 4:07 [facility] PM CDT [place] Specimen Anatomical Collection Method Collection Time Receive d Time (Source) Location / / Volume Laterality 07/09/2018 3:56 PM 9 4:05 CDT PM CDT Tiffanie Mcgovern APRN, CNP LAB BLOOD ORDERABLES Performing Organization Address City/[facility]/ZIP Code Phon e Number [facility] [place] [address] [place] [address] HemoCue glucose (07/09/2018 3:56 PM CDT) P athologist Signature Glucose, Bld 98 70 - 100 07/09/2018 [facility] mg/dL 4:07 PM CDT [place] Comment: . Specimen Anatomical Collection Method Collection Time Receive d Time (Source) Location / / Volume Laterality 07/09/2018 3:56 PM 9 4:05 CDT PM CDT Tiffanie Mcgovern APRN, CNP LAB BLOOD ORDERABLES Performing Organization Address City/[facility]/ZIP Code Phon e Number [facility] [place] [address] [place] [address] (ABNORMAL) CBC Branch Off w/Diff (07/09/2018 3:56 PM CDT) [facility] Method Time Signature WBC 12.0 (H) 3.5 - 10.5 07/09/2018 [facility] JONES K/uL 4:07 PM CDT [place] RBC 4.13 3.90 - 07/09/2018 [facility] JONES 5.00 M/uL 4:07 PM CDT [place] Hemoglobin 13.6 12.0 - 07/09/2018 [facility] 15.5 g/dL 4:07 PM CDT [place] Hematocrit 37.9 35.0 - 07/09/2018 [facility] JONES 44.0 % 4:07 PM CDT [place] Platelets 320 150 - 450 07/09/2018 [facility] JONES K/uL 4:07 PM CDT [place] MCV 91.8 81.6 - 07/09/2018 [facility] JONES 98.3 fL 4:07 PM CDT [place] MCH 32.9 (H) 26.0 - 07/09/2018 [facility] JONES 32.0 pg 4:07 PM CDT [place] MCHC 35.9 32.0 - 07/09/2018 [facility] JONES 36.0 g/dL 4:07 PM CDT [place] RDW 12.3 11.9 - 07/09/2018 [facility] JONES 15.5 % 4:07 PM CDT [place] Lymphocytes % 12.6 (L) 18.0 - 07/09/2018 [facility] JONES 45.0 % 4:07 PM CDT [place] Mid-size Cells 7.4 3.3 - 10.1 07/09/2018 [facility] JONES % 4:07 PM CDT [place] Granulocytes/Leslie 80.0 (H) 45.8 - 07/09/2018 [facility] JONES trophils 73.7 % 4:07 PM CDT [place] Lymphocytes 1.5 0.9 - 2.9 07/09/2018 [facility] JONES Absolute K/uL 4:07 PM CDT [place] MIDS Absolute 0.9 (H) 0.2 - 0.8 07/09/2018 [facility] JONES K/uL 4:07 PM CDT [place] Granulocytes/Leslie 9.6 (H) 2.1 - 8.7 07/09/2018 [facility] JONES trophils K/uL 4:07 PM CDT [place] Absolute Specimen Anatomical Collection Method Collection Time Receive d Time (Source) Location / / Volume Laterality Blood (Blood, 07/09/2018 3:56 PM 07/10/19 19 4:05 Venous) CDT PM CDT Tiffanie Mcgovern APRN, CNP LAB BLOOD ORDERABLES Performing Organization Address City/State/ZIP Code Phon e Number [facility] ROBERT GUERRERO [address] [place] [address] documented in this encounter Visit Diagnoses Diagnosis Screening for diabetes mellitus Pharyngitis, unspecified etiology Influenza-like illness documented in this encounter Care Teams Pattern Fitter Relationship Specialty Start Date End Date Tiffanie Mcgovern APRN, CASTING OPERATOR PCP - General 10/14/17 07/14/19 100 [place] [address] documented as of this encounter
--- OUTSIDE RECORDS SUMMARY | 2022-01-22 10:11 | XMS_ITS | Encounter Summary ---
:1970 Author Organization [facility] Address [address] [place] [address] Care Team Providers Name Role Phone Tiffanie Mcgovern RIGGING SLINGER, BUILDING CONSTRUCTION INSPECTOR Primary Care Provider [phone] Reason for Visit Reason Onset Date Comments TC FOLLOW UP 07/09/2018 Encounter Details Date Type Department Care Team Description 07/09/2018 Telephone MathiasTiffanie Perera, LAURYN FOLLOW UP [address] RIGGING SLINGER, BUILDING CONSTRUCTION INSPECTOR ERNESTO Savage 550 [address] 100 COUNTS INCLUDE 234 [facility] AT [facility] AV [phone] [place], [place] [address] Social History Tobacco Use [...] 07/09/2018 4:24 PM CDT STREP Patient #: [phone] Pharmacy: Family Small medication of choice if positive- The provider will call patient if positive and will prescribed if positive. documented in this encounter Plan of Treatment Not on filedocumented as of this encounter Visit Diagnoses Not on filedocumented in this encounter Care Teams Wastewater Treatment Plant Supervisor Relationship Specialty Start Date End Date Tiffanie Mcgovern APRN, BUILDING CONSTRUCTION INSPECTOR PCP - General 10/14/17 07/14/19 100 [facility] [place] [address] documented as of this encounter
--- OUTSIDE RECORDS SUMMARY | 2022-01-22 10:11 | XMS_ITS | Encounter Summary ---
:1970 Author Organization [facility] Address [address] [place] [address] Care Team Providers Name Role Phone Tiffanie Mcgovern COUNTY HOME DEMONSTRATION AGENT, GARDEN IMPLEMENT MECHANIC Primary Care Provider [phone] Reason for Visit Reason Comments Med Refill Encounter Details Date Type Department Care Team Description 12/04/2018 Refill [place] Tiffanie Mcgovern, Hyperlipidemia, [address] COUNTY HOME DEMONSTRATION AGENT, KYLE unspecified ERNESTO Ramirez 550 [address] 100 [facility] hyperlipidemia type [phone] [place], [place] [address] Social History Tobacco Use [...] type documented in this encounter Care Teams Hull Line Crew Member Relationship Specialty Start Date End Date Tiffanie Mcgovern, COUNTY HOME DEMONSTRATION AGENT, GARDEN IMPLEMENT MECHANIC PCP - General 10/14/17 07/14/19 100 [facility] [place]NESTO [place] [address] documented as of this encounter
--- OUTSIDE RECORDS SUMMARY | 2022-01-22 10:11 | XMS_ITS | Encounter Summary ---
:1970 Author Organization [facility] Address [address] [place] [address] Care Team Providers Name Role Phone Tiffanie Mcgovern APRN, KYLE Primary Care Provider [phone] Reason for Visit Reason Comments Follow-up Still not feeling well Encounter Details Date Type Department Care Team Description 07/17/2018 Office Visit Tiffanie Acuna Sinusitis, unspecified chron icity, unspecified location (Primary Dx); [address] M, KYLE DEL [place] Shakiness; ERNESTO Savage [address] Other fatigue; [address] [place] [address] Muscle cramps; [phone] Diaphore sis; Motion sickness , initial encounter [...] light. Ears - normal canals, normal, pearly lewis TMs bilaterally. Throat - normal oropharynx. Uvula rises midline. No erythema. Neck - Supple. No cervical or posterior lymphadenopathy. No thyromegaly. INTEGUMENTARY: Skin is diaphoretic. RESPIRATORY: Lungs are clear, bilaterally. No wheezing. GASTROENTEROLOGY: Abdomen is soft, no organomegaly, positive bowel sounds. DIAGNOSTICS: CBC with diff, BMP, Lyme's, Liver, HGB A1c, and Becker. Becker negative. Lab Results Component Value Date WBC [...] this plan of care. Tiffanie Mcgovern APRN, WHISKEY REGAUGER documented in this encounter Plan of Treatment Not on filedocumented as of this encounter Results Liver panel (07/17/2018 11:55 AM CDT) P athologist Signature Total Protein 7.8 6.3 - 8.2 07/17/2018 [place] g/dL 7:15 PM [facility] Albumin, Serum 4.4 3.5 - 5.0 07/17/2018 [place] g/dL 7:15 PM [facility] Total Bilirubin <0.7 0.1 - 1.0 07/17/2018 [place] mg/dL 7:15 PM [facility] Bilirubin, <0.1 0.0 - 0.3 07/17/2018 [place] Direct mg/dL 7:15 PM [facility] AST 26 8 - 43 U/L 07/17/2018 [place] 7:15 PM [facility] Alkaline 59 38 - 128 07/17/2018 [place] Phosphatase U/L 7:15 PM [facility] ALT (SGPT) 28 0 - 34 U/L 07/17/2018 [place] 7:15 PM [facility] Specimen Anatomical Collection Method Collection Time Receive d Time (Source) Location / / Volume Laterality Blood (Blood, 07/17/2018 11:55 07/17/2018 6:44 Venous) AM CDT PM CDT Tiffanie Mcgovern APRN, KYLE LAB BLOOD ORDERABLES Performing Organization Address City/State/ZIP Code Phon e Number [facility] [address] [place] [phone] (ABNORMAL) Basic metabolic panel (07/17/2018 11:55 AM CDT) Analysis Performed At Patho logist Time Signature Sodium 137 135 - 145 07/17/2018 [place] mEq/L 7:15 PM [facility] Potassium 4.2 3.5 - 5.1 07/17/2018 [place] mEq/L 7:15 PM [facility] Chloride 102 98 - 107 07/17/2018 [place] mEq/L 7:15 PM [facility] CO2 25 22 - 29 07/17/2018 [place] mmol/L 7:15 PM [facility] Creatinine 0.7 0.4 - 1.2 07/17/2018 [place] mg/dL 7:15 PM [facility] BUN 13 5 - 25 07/17/2018 [place] mg/dL 7:15 PM [facility] Glucose 109 (H) 70 - 100 07/17/2018 [place] mg/dL 7:15 PM [facility] Calcium, 9.9 8.4 - 10.2 07/17/2018 [place] Total,S mg/dL 7:15 PM [facility] Fasting? No 07/17/2018 [facility] 12:02 PM CDT [place] Specimen Anatomical Collection Method Collection Time Receive d Time (Source) Location / / Volume Laterality Blood (Blood, 07/17/2018 11:55 07/17/2018 6:44 Venous) AM CDT PM CDT Tiffanie Mcgovern APRN, CNP LAB BLOOD ORDERABLES Performing Organization Address City/[facility] Phon e Number [facility] [address] [place] [address] [facility] [address] [place] [address] LABORATORY Lyme Disease Serology (07/17/2018 11:55 AM CDT) [facility] Method Time Signature Lyme Disease Negative Negative 07/20/2018 [facility] Serology 3:45 PM CDT LABORATORIES Comment: No evidence of antibodies to B. burgdorf serenity detected. False negative results may occur in rece ntly infected patients (<=2 weeks) due to low or undet ectable antibody levels to B. burgdorferi. If recent expo sure is suspected, a second sample should be collected and tested in 2-4 weeks. Test Performed by: [facility] [address] [place], [place] [address] Specimen Anatomical Collection Method Collection Time Receive d Time (Source) Location / / Volume Laterality Blood (Blood, 07/17/2018 11:55 07/17/2018 9:07 Venous) AM CDT PM CDT Tiffanie Mcgovern APRN, CNP LAB BLOOD ORDERABLES Performing Organization Address City/[facility]/ZIP [facility] Phon e Number [facility] see result attachment for specific address (ABNORMAL) CBC Branch Off w/Diff (07/17/2018 11:55 AM CDT) [facility] gist Method Time Signature WBC 9.9 3.5 - 10.5 07/17/2018 [facility] K/uL 12:02 PM CDT [place] RBC 4.33 3.90 - 07/17/2018 [facility] 5.00 M/uL 12:02 PM CDT [place] Hemoglobin 14.1 12.0 - 07/17/2018 [facility] 15.5 g/dL 12:02 PM CDT [place] Hematocrit 39.7 35.0 - 07/17/2018 [facility] 44.0 % 12:02 PM CDT [place] Platelets 302 150 - 450 07/17/2018 [facility] K/uL 12:02 PM CDT [place] MCV 91.7 81.6 - 07/17/2018 [facility] 98.3 fL 12:02 PM CDT [place] MCH 32.6 (H) 26.0 - 07/17/2018 [facility] 32.0 pg 12:02 PM CDT [place] MCHC 35.5 32.0 - 07/17/2018 [facility] 36.0 g/dL 12:02 PM CDT [place] RDW 12.7 11.9 - 07/17/2018 [facility] 15.5 % 12:02 PM CDT [place] Lymphocytes % 19.1 18.0 - 07/17/2018 [facility] 45.0 % 12:02 PM CDT [place] Mid-size Cells 8.9 3.3 - 10.1 07/17/2018 [facility] % 12:02 PM CDT [place] Granulocytes/Leslie 72.0 45.8 - 07/17/2018 [facility] trophils 73.7 % 12:02 PM CDT [place] Lymphocytes 1.9 0.9 - 2.9 07/17/2018 [facility] [place] Absolute K/uL 12:02 PM CDT [place] MIDS Absolute 0.9 (H) 0.2 - 0.8 07/17/2018 [facility] K/uL 12:02 PM CDT [place] Granulocytes/Leslie 7.1 2.1 - 8.7 07/17/2018 [facility] trophils K/uL 12:02 PM CDT [place] Absolute Specimen Anatomical Collection Method Collection Time Receive d Time (Source) Location / / Volume Laterality Blood (Blood, 07/17/2018 11:55 07/17/2018 Venous) AM CDT 12:02 PM CDT Tiffanie Mcgovern APRN, CNP LAB BLOOD ORDERABLES Performing Organization Address City/State/ZIP Code Phon e Number [facility] ROBERT [place]ERRERO [address] [place] [address] Mononucleosis screen (07/17/2018 11:55 AM CDT) athologist Signature Monospot NEGATIVE Negative 07/17/2018 [facility] 12:04 PM CDT [place] Specimen Anatomical Collection Method Collection Time Receive d Time (Source) Location / / Volume Laterality Blood (Blood, 07/17/2018 11:55 07/17/2018 Venous) AM CDT 12:02 PM CDT Tiffanie Mcgovern APRN, CNP LAB BLOOD ORDERABLES Performing Organization Address City/[facility]/ZIP Code Phon e Number [facility] ROBERT GUERRERO [address] [place] [address] documented in this encounter Visit Diagnoses Diagnosis Sinusitis, unspecified chronicity, unspe cified location - Primary Shakiness Abnormal involuntary movements Other fatigue Muscle cramps Diaphoresis Generalized hyperhidrosis Motion sickness, initial encounter documented in this encounter Care Teams Facilities Maintenance Worker Relationship Specialty Start Date End Date Tiffanie Mcgovern APRN, KYLE PCP - General 10/14/17 07/14/19 100 [facility] ERNESTO [place] [address] documented as of this encounter
--- OUTSIDE RECORDS SUMMARY | 2022-01-22 10:11 | XMS_ITS | Encounter Summary ---
:1970 Author Organization [facility] Address [address] [place] [address] Care Team Providers Name Role Phone Tiffanie Mcgovern REFLOW OPERATOR, HYDRAULIC LIFT DRIVER Primary Care Provider [phone] Encounter Details Date Type Department Care Team Description 07/21/2018 Orders Only Rogelio Guerrero Tiffanie Mcgovern, Screening for [address] REFLOW OPERATOR, KYLE diabetes mellitus ERNESTO Savage [address] (Primary Dx) [address] [place] [address] Social History Tobacco Use Types Packs/Day Years [...] Hemoglobin A1C 5.3 4.0 - 5.6 07/23/2018 [facility] % A1C 1:44 PM CDT CENTER [...] CDT 12:17 PM CDT Tiffanie Mcgovern APRN, HYDRAULIC LIFT DRIVER LAB BLOOD ORDERABLES Performing Organization Address City/State/ZIP Code Phon e Number [facility] [address] [place] [address] documented in this encounter Visit Diagnoses Diagnosis Screening for diabetes mellitus - Primar y documented in this encounter Care Teams Deputy Assessor Relationship Specialty Start Date End Date Tiffanie Mcgovern APRN, HYDRAULIC LIFT DRIVER PCP - General 10/14/17 07/14/[address] [place] [address] documented as of this encounter
--- OUTSIDE RECORDS SUMMARY | 2022-01-22 10:11 | XMS_ITS | Encounter Summary ---
:1970 Author Organization [facility] Address [address] [place] [address] Care Team Providers Name Role Phone Tiffanie Mcgovern APRN, HOSPITAL CNA Primary Care Provider [phone] Encounter Details Date Type Department Care Team Description 07/17/2018 Lab Robert Guerrero Other fatigue; [address] Shakiness; ERNESTO Ramirez 550 [address] Muscle cramps; [phone] Diaphoresis; Influenza-like illness Social History Tobacco Use [...] AM CDT) athologist Signature GFR >60 07/17/2018 [facility] 7:15 PM CDT CENTER LABORATORY >60 07/17/2018 [facility] Sri Lankan GFR 7:15 PM CDT CENTER LABORATORY Comment: [...] CNP LAB BLOOD ORDERABLES Performing Organization Address City/[facility]/ZIP Code Phon e Number [facility]ORY [address] [place] [address] Mononucleosis screen (07/17/2018 11:55 AM CDT) athologist Signature Monospot NEGATIVE Negative 07/17/2018 [facility] 12:04 PM CDT [place] Specimen Anatomical Collection Method Collection Time Receive d Time (Source) Location / / Volume Laterality Blood (Blood, 07/17/2018 11:55 07/17/2018 Venous) AM CDT 12:02 PM CDT Tiffanie Mcgovern APRN, CNP LAB BLOOD ORDERABLES Performing Organization Address City/[facility]/ZIP Code Phon e Number [facility] [place] [address] [place] [address] (ABNORMAL) CBC Branch Off w/Diff (07/17/2018 11:55 AM CDT) Patholo gist Method Time Signature WBC 9.9 3.5 - 10.5 07/17/2018 [facility] K/uL 12:02 PM CDT [place] RBC 4.33 3.90 - 07/17/2018 [facility] 5.00 M/uL 12:02 PM CDT [place] Hemoglobin 14.1 12.0 - 07/17/2018 [facility] 15.5 g/dL 12:02 PM CDT [place] Hematocrit 39.7 35.0 - 07/17/2018 [facility] 44.0 % 12:02 PM CDT [place] Platelets 302 150 - 450 07/17/2018 [facility] K/uL 12:02 PM CDT [place] MCV 91.7 81.6 - 07/17/2018 [facility] 98.3 fL 12:02 PM CDT [place] MCH 32.6 (H) 26.0 - 07/17/2018 [facility] 32.0 pg 12:02 PM CDT [place] MCHC 35.5 32.0 - 07/17/2018 [facility] 36.0 g/dL 12:02 PM CDT [place] RDW 12.7 11.9 - 07/17/2018 [facility] 15.5 % 12:02 PM CDT [place] Lymphocytes % 19.1 18.0 - 07/17/2018 [facility] 45.0 % 12:02 PM CDT [place] Mid-size Cells 8.9 3.3 - 10.1 07/17/2018 [facility] % 12:02 PM CDT [place] Granulocytes/Leslie 72.0 45.8 - 07/17/2018 [facility] trophils 73.7 % 12:02 PM CDT [place] Lymphocytes 1.9 0.9 - 2.9 07/17/2018 [facility] Absolute K/uL 12:02 PM CDT [place] MIDS Absolute 0.9 (H) 0.2 - 0.8 07/17/2018 [facility] K/uL 12:02 PM CDT [place] Granulocytes/Leslie 7.1 2.1 - 8.7 07/17/2018 [facility] trophils K/uL 12:02 PM CDT [place] Absolute Specimen Anatomical Collection Method Collection Time Receive d Time (Source) Location / / Volume Laterality Blood (Blood, 07/17/2018 11:55 07/17/2018 Venous) AM CDT 12:02 PM CDT Tiffanie M Mcgovern ART STUDIO TEACHER, HOSPITAL CNA LAB BLOOD ORDERABLES Performing Organization Address City/[facility] Phon e Number [facility] ROBERT GUERRERO [address] [place] [address] Lyme Disease Serology (07/17/2018 11:55 AM CDT) [facility] gist Method Time Signature Lyme Disease Negative Negative 07/20/2018 [facility] Serology 3:45 PM CDT LABORATORIES Comment: No evidence of antibodies to B. burgdorf serenity detected. False negative results may occur in rece ntly infected patients (<=2 weeks) due to low or undet ectable antibody levels to B. burgdorferi. If recent expo sure is suspected, a second sample should be collected and tested in 2-4 weeks. Test Performed by: [facility] [address] [place], [place] [address] Specimen Anatomical Collection Method Collection Time Receive d Time (Source) Location / / Volume Laterality Blood (Blood, 07/17/2018 11:55 07/17/2018 9:07 Venous) AM CDT PM CDT Tiffanie Mcgovern APRN, CNP LAB BLOOD ORDERABLES Performing Organization Address [facility] Code Phon e Number [facility]ATORIES see result attachment for specific address (ABNORMAL) Basic metabolic panel (07/17/2018 11:55 AM CDT) Analysis Performed At Path logist Time Signature Sodium 137 135 - 145 07/17/2018 [place] mEq/L 7:15 PM [facility] CENTER LABORATORY Potassium 4.2 3.5 - 5.1 07/17/2018 [place] mEq/L 7:15 PM [facility]ENTER LABOR[facility] Chloride 102 98 - 107 07/17/2018 [place] mEq/L 7:15 PM [facility] LAB[facility] CO2 25 22 - 29 07/17/2018 [place] mmol/L 7:15 PM [facility] LAB[facility] Creatinine 0.7 0.4 - 1.2 07/17/2018 [place] mg/dL 7:15 PM [facility] BUN 13 5 - 25 07/17/2018 [place] mg/dL 7:15 PM [facility] Glucose 109 (H) 70 - 100 07/17/2018 [place] mg/dL 7:15 PM [facility] Calcium, 9.9 8.4 - 10.2 07/17/2018 [place] Total,S mg/dL 7:15 PM [facility] Fasting? No 07/17/2018 [facility] 12:02 PM [facility] [place] Specimen Anatomical Collection Method Collection Time Receive d Time (Source) Location / / Volume Laterality Blood (Blood, 07/17/2018 11:55 07/17/2018 6:44 Venous) AM CDT PM CDT Tiffanie Mcgovern APRN, CNP LAB BLOOD ORDERABLES Performing Organization Address City/[facility]/ZIP Code Phon e Number [facility] [address] [place] [address] [facility] [address] [place] [phone] LABORATORY Liver panel (07/17/2018 11:55 AM CDT) athologist Signature Total Protein 7.8 6.3 - 8.2 07/17/2018 [place] g/dL 7:15 PM [facility] Albumin, Serum 4.4 3.5 - 5.0 07/17/2018 [place] g/dL 7:15 PM [facility] Total Bilirubin <0.7 0.1 - 1.0 07/17/2018 [place] mg/dL 7:15 PM [facility] Bilirubin, <0.1 0.0 - 0.3 07/17/2018 [place] Direct mg/dL 7:15 PM [facility] AST 26 8 - 43 U/L 07/17/2018 [place] 7:15 PM [facility] Alkaline 59 38 - 128 07/17/2018 [place] Phosphatase U/L 7:15 PM [facility] ALT (SGPT) 28 0 - 34 U/L 07/17/2018 [place] 7:15 PM [facility] Specimen Anatomical Collection Method Collection Time Receive d Time (Source) Location / / Volume Laterality Blood (Blood, 07/17/2018 11:55 07/17/2018 6:44 Venous) AM CDT PM CDT Tiffanie Mcgovern APRN, CNP LAB BLOOD ORDERABLES Performing Organization Address City/[facility]/ZIP Code Phon e Number [facility] [address] [place] [address] documented in this encounter Visit Diagnoses Diagnosis Other fatigue Shakiness Abnormal involuntary movements Muscle cramps Diaphoresis Generalized hyperhidrosis Influenza-like illness documented in this encounter Care Teams Junior Automation Engineer Relationship Specialty Start Date End Date Tiffanie Mcgovern APRN, HOSPITAL CNA PCP - General 10/14/17 07/14/19 [address] [place] [address] documented as of this encounter
--- OUTSIDE RECORDS SUMMARY | 2022-01-22 10:11 | XMS_ITS | Encounter Summary ---
:[address] [facility] Address [address] [place] [address] Care Team Providers Name Role Phone Tiffanie Mcgovern APRN, CNP Primary Care Provider [phone] Encounter Details Date Type Department Care Team Description 11/29/2017 Orders Only Rogelio Guerrero Tiffanie Mcgovern, Diarrhea, unspecified [address] [place] type (Primary Dx) ERNESTO Savage 100 [facility] [address] [place] [address] Social History Tobacco Use Types Packs/Day Years [...] Primary documented in this encounter Care Teams Cobol Developer Relationship Specialty Start Date End Date Tiffanie Mcgovern APRN, CNP PCP - General 10/14/17 07/14/19 [address] [place] [address] documented as of this encounter
--- OUTSIDE RECORDS SUMMARY | 2022-01-22 10:11 | XMS_ITS | Encounter Summary ---
:1970 Author Organization [facility] Address [address] [place] [address] Care Team Providers Name Role Phone Tiffanie Mcgovern APRN, KYLE Primary Care Provider [phone] Reason for Visit Reason Comments Med Refill Encounter Details Date Type Department Care Team Description 09/02/2018 Refill Robert Guerrero Tiffanie Mcgovern, Hyperlipidemia, [address] [place] unspecified ERNESTO Ramirez [address] hyperlipidemia type [phone] [place], [place] [address] (Primary Dx) Social History [...] this encounter Miscellaneous Notes Telephone Encounter - Krystal Rice MA - 09/04/2018 1:57 PM CDT [...] Out 02/18/2020 02/18/2020 02/18/2020 4:4 1 PM GLASS TECHNICIAN/INSTALLER COVID-19 Rule Out 02/27/2021 02/27/2021 02/27/2021 10: 40 AM GLASS TECHNICIAN/INSTALLER COVID-19 Confirmed 02/27/2021 02/27/2021 05/28/2021 8: 17 PM CDT documented as of this encounter Care Teams Secondary Market Manager Relationship Specialty Start Date End Date Tiffanie Mcgovern APRN, ITALIAN TEACHER PCP - General Family Medicine 02/27/[address] [place] [address] ERNESTO MACEDO [address] documented as of this encounter
--- OUTSIDE RECORDS SUMMARY | 2022-01-22 10:11 | XMS_ITS | Encounter Summary ---
:1970 Author Organization [facility] Address [address] [place] [address] Care Team Providers Name Role Phone Tiffanie Mcgovern APRN, HAIRSPRING II INSPECTOR Primary Care Provider [phone] Encounter Details Date Type Department Care Team Description 07/22/2018 [facility] [place] Screening for diabetes melli tus; [address] [facility] Robert Guerrero [place] [address] Social History Tobacco Use Types [...] Results Hemoglobin A1c (07/22/2018 2:20 PM CDT) P athologist Signature Hemoglobin A1C 5.3 4.0 - 5.6 07/23/2018 [facility] L % A1C 1:44 PM CDT CENTER LABORATORY [...] CDT 12:17 PM CDT Tiffanie Mcgovern APRN, HAIRSPRING II INSPECTOR LAB BLOOD ORDERABLES Performing Organization Address City/State/ZIP Code Phon e Number [facility] [address] [place] [address] documented in this encounter Visit Diagnoses Diagnosis Screening for diabetes mellitus Shakiness Abnormal involuntary movements documented in this encounter Care Teams Sap Solution Manager Consultant Relationship Specialty Start Date End Date Tiffanie Mcgovern APRN, HAIRSPRING II INSPECTOR PCP - General 10/14/17 07/14/19 100 [place] [address] documented as of this encounter
--- OUTSIDE RECORDS SUMMARY | 2022-01-22 10:14 | XMS_ITS | Encounter Summary ---
:1970 Author Organization [facility] Address [address] [place] [address] Care Team Providers Name Role Phone Elsewhere, Pcp Primary Care Provider Unavailable Reason for Visit Outpatient (Routine) - Closed Specialty Diagnoses / Referred By Contact Referred To Contact Procedures Cardiovascular Diseases / Diagnoses Pain Chest Atypical Mahamed Campos, [facility] Cardiovascular Disease M.D. [address] [place] [address] Referral ID Status Reason Start Date Expiration Date Visits Requ ested Visits Authorized [id number] Closed 06/10/2019 06/09/2020 1 1 Encounter Details Date Type Department Care Team Description 06/24/2019 Virtual Visit Department of Ashlie Jacobs Pain Chest Atypical; Cardiovascular Medicine Janene Maldonado Angina Prinzmetal (HCC) in [facility] [address] [place] [phone] Social History Tobacco Use Types Packs/Day Years [...] one Less than mo nthly 06/22/2019 occasion? Social Isolation Answer Date Recorded In a typical week, how many times do you More than three john es a week 06/22/2019 talk on the phone with family, friends, or neighbors? How often do you get together with friends Twice a week 06/22/2019 or relatives? How often do you attend yazidi or More than 4 times per year 06/22/2019 jew services? Do you belong to any clubs or No 06/22/2019 organizations such as yazidi groups, unions, fraternal or athletic groups, or [...] highest level of school Associate degree: academ [employer] program 06/22/2019 you have completed or the highest degree you have received? Sex Assigned at Date Recorded Not on file documented as of this encounter Consult Notes Ashlie Jacobs M.D. - 06/24/2019 9:45 AM CDT [id number] PHONE VISIT A phone call care discussion in the setting of the national COVID19 pandemic was completed consistent with [facility] institutional direction. This visit was peformed by [...] of the COVID-19 pandemic resulting in her alhl-kg-yakn appointment being rescheduled. 2010: She reportedly had [...] documented as of this encounter Care Teams Telephony Engineer Relationship Specialty Start Date End Date Elsewhere, Pcp PCP - General Internal Medicine 06/08/19 06/15/21 documented as of this encounter
--- OUTSIDE RECORDS SUMMARY | 2022-01-22 10:14 | XMS_ITS | Encounter Summary ---
:1970 Author Organization [facility] Address [address] [place] [address] Care Team Providers Name Role Phone Elsewhere, Pcp Primary Care Provider Unavailable Reason for Referral Outpatient (Routine) - Closed Specialty Diagnoses / Procedures Referred By Contact Refer red To Contact Diagnoses Pain Leg Right Remberto Prasad, C.N.P. [facility] [place] Procedures US Lower Extremity Veins Right [address] [place] [address] Referral ID Status Reason Start Date Expiration Date Visits Requ ested Visits Authorized [id number] Closed 06/18/2021 06/18/2022 1 1 Reason for Visit Outpatient (Routine) - Closed Specialty Diagnoses / Procedures Referred By Contact Refer red To Contact Diagnoses Pain Leg Right Remberto Prasad, C.N.P. [facility] [place] Procedures US Lower Extremity Veins Right [address] [place] [address] Referral ID Status Reason Start Date Expiration Date Visits Requ ested Visits Authorized [id number] Closed 06/18/2021 06/18/2022 1 1 Encounter Details Date Type Department Care Team Description 06/18/2021 Hospital Encounter Department of Radiology Remberto Prasad , Pain Leg Right in [place], Maryo stanley C.N.P. [address] [facility] [address] [place] [address] [place], [place] [phone] Social History Tobacco Use Types Packs/Day Years [...] the highest level of school Associate degree: [employer] program 06/22/2019 you have completed or the [...] (PriLOSEC) 20 Take 1 capsule by 0 /10/[address] capsule mouth daily. ondansetron (ZOFRAN) [...] man agement can be found on the [employer] site. Link [email or web address]/topic/clinical-answers/[email or web address]/cpm-[email or web address] 11243 Procedure Note Grey Stratton M.D. - 06/18/2021Formatt [...] man agement can be found on the [employer] site. Link [email or web address]://[email or web address]/topic/clinical-answers/[email or web address]/[email or web address] 15762 IMPRESSION: Negative for acute DVT. Remberto LOPEZ US PROCEDURES documented in this encounter Visit Diagnoses Diagnosis Pain Leg Right documented in this encounter Additional Health Concerns Assessment Noted Time PHQ-9 Depression Total Score: 3 09/15/2015 2:08 PM CDT documented as of this encounter Care Teams Plant Tour Guide Relationship Specialty Start Date End Date Elsewhere, Pcp PCP - General Internal Medicine 06/18/21 documented as of this encounter
--- OUTSIDE RECORDS SUMMARY | 2022-01-22 10:14 | XMS_ITS | Encounter Summary ---
:1970 Author Organization [facility] Address [address] [place] [address] Care Team Providers Name Role Phone Elsewhere, Pcp Primary Care Provider Unavailable Reason for Referral Specialty Diagnoses / Procedures Referred By Contact Refer red To Contact Lili Brown M.D. [facility] [address] [place] [phone] Referral ID Status Reason Start Date Expiration Date Visits Requ ested Visits Authorized UER SPRAYER Encounter Details Date Type Department Care Team Description 01/15/2021 Orders Only RST PCP HLTH MNT Lili Brown M.D. [address] [place] [phone] (Wo rk) Social History Tobacco [...] More than 4 times per year 06/22/2019 latter-day services? Do you belong to any clubs [...] highest level of school Associate degree: academ [employer] program 06/22/2019 you have completed or the [...] documented as of this encounter Care Teams Feather Boner Relationship Specialty Start Date End Date Elsewhere, Pcp PCP - General Internal Medicine 06/08/19 06/15/21 documented as of this encounter
--- OUTSIDE RECORDS SUMMARY | 2022-01-22 10:14 | XMS_ITS | Encounter Summary ---
:1970 Author Organization [facility] Address [address] [place] [address] Care Team Providers Name Role Phone Elsewhere, Pcp Primary Care Provider Unavailable Encounter Details Date Type Department Care Team Description 01/15/2021 Orders Only RST PCP TH Lili Tobar M.D. [address] [place], [place] [phone] (Wo rk) Social History [...] highest level of school Associate degree: academ [employer] program 06/22/2019 you have completed or the [...] documented as of this encounter Care Teams Flue Gas Analyst Relationship Specialty Start Date End Date Elsewhere, Pcp PCP - General Internal Medicine 06/08/19 06/15/21 documented as of this encounter
--- OUTSIDE RECORDS SUMMARY | 2022-01-22 10:14 | XMS_ITS | Encounter Summary ---
:1970 Author Organization [facility] Address [address] [place] [address] Care Team Providers Name Role Phone Elsewhere, Pcp Primary Care Provider Unavailable Encounter Details Date Type Department Care Team Description 06/10/2019 Clinical Communication Department of Mahamed Campos Cardiovascular Medicine Janene Up in [facility] [address] [facility] [address] [place] [phone] Social History Tobacco Use Types Packs/Day Years [...] More than 4 times per year 06/22/2019 anglican services? Do you belong to any clubs [...] way but I think she needs the [place] experience to reaffirm this. Thanks in advance Andres Telephone Encounter - Mahamed Campos M.D. - 06/11/2019 12:42 PM CDT Error Telephone Encounter - Katina Head - 06/11/2019 11:[address] Campos, I am attaching Dr. Mcdonald, head of [facility], so she can assess as well, as [...] Katina Head - 06/10/2019 2:31 PM CDT Gabino Campos, Please place an order for a [...] documented as of this encounter Care Teams Technical Publications Manager Relationship Specialty Start Date End Date Elsewhere, Pcp PCP - General Internal Medicine 06/08/19 06/15/21 documented as of this encounter
--- OUTSIDE RECORDS SUMMARY | 2022-01-22 10:14 | XMS_ITS | Encounter Summary ---
:1970 Author Organization [facility] Address [address] [place] [address] Care Team Providers Name Role Phone Elsewhere, Pcp Primary Care Provider Unavailable Encounter Details Date Type Department Care Team Description 06/16/2019 Documentation Department of Cardiovascular Campos, Duncan Up, Medicine in [facility] [address] [facility] [address] [place] [phone] (Wo rk) Social History Tobacco Use Types [...] Laura that we have made arrangements for syzo[facility]zyx [facility]. She is very much looking forward to this. She has no additional complaints or concerns at this time but understands she can contact me in the future as needed. CT CT Job ID: [id number]/mc documented in this encounter Plan of Treatment Not on filedocumented as of this encounter Visit Diagnoses Not on filedocumented in this encounter Additional Health Concerns Assessment Noted Time PHQ-9 Depression Total Score: 3 09/15/2015 2:08 PM CDT documented as of this encounter Care Teams Power Washer Relationship Specialty Start Date End Date Elsewhere, Pcp PCP - General Internal Medicine 06/08/19 06/15/21 documented as of this encounter
--- OUTSIDE RECORDS SUMMARY | 2022-01-22 10:14 | XMS_ITS | Encounter Summary ---
:1970 Author Organization [facility] Address [address] [place] [address] Care Team Providers Name Role Phone Elsewhere, Pcp Primary Care Provider Unavailable Reason for Referral Outpatient (Routine) - Closed Specialty Diagnoses / Procedures Referred By Contact Refer red To Contact Diagnoses Pain Leg Right Remberto Prasad, C.N.P. [facility] Region Procedures US Lower Extremity Veins Right [address] [place] [address] Referral ID Status Reason Start Date Expiration Date Visits Requ ested Visits Authorized [id number] Closed 06/18/2021 06/18/2022 1 1 Reason for Visit Reason Comments Leg Pain Pt presents to ED with right leg pain that started 06/14/21. Pt reports pain behind right knee and into r ight calf. Encounter Details Date Type Department Care Team Description 06/18/2021 Emergency [facility] Remberto Prasad Pain Leg Right (Primary Department C.N.P. Dx) [address] [place] [phone] Social History Tobacco Use Types Packs/Day Years [...] or relatives? How often do you attend episcopalian or More than 4 times per year 06/22/2019 presybeterian services? Do you belong to any clubs or No 06/22/2019 organizations such as episcopalian groups, unions, [employer] or athletic groups, or school groups? How [...] the highest level of school Associate degree: [employer] program 06/22/2019 you have completed or the [...] Sig Dispensed Refills Start Date End Date levothyroxine (SYNTHROID, TAKE ONE TABLET BY 0 LEVOTHROID) 100 mcg tablet MOUTH DAILY - 6 DAYS OF THE WEEK FROM FRIDAY THRU FRIDAY , AND TAKE ONE AND ONE-HALF TABLETS ON FRIDAY. ondansetron (ZOFRAN) 4 mg May take one tab 0 09/07 tablet every 8 hours if needed for nausea sertraline (ZOLOFT) 50 mg TAKE ONE TABLET BY 0 tablet MOUTH EVERY MORNING FOR ANXIETY AND DEPRESSION cyclobenzaprine (FLEXERIL) Take 1 tablet (10 mg 21 tablet 0 06/18/2021 10 mg tablet total) by mouth 3 (three) times a day as needed for muscle spasms for up to 10 days. LORazepam (ATIVAN) 0.5 mg Take 0.5 mg by mouth 0 04/02/2019 tablet daily as needed. nabumetone (RELAFEN) 500 Take 500 mg by mouth 0 0 08/12/2018 mg tablet as needed for pain. omeprazole (PriLOSEC) 20 Take 1 capsule by 0 10/[address] capsule mouth daily. simvastatin (ZOCOR) 20 mg Take 20 mg by mouth 0 0 09/04/2018 tablet daily. traZODone (DESYREL) 50 mg Take 50 mg by mouth 0 0 08/12/2018 tablet Medrol Dose Pack scheduling ONLY. verapamil (VERELAN) 240 mg Take 240 mg by mouth 0 09/02/2018 24 hr capsule daily. documented as of this encounter ED Notes Remberto Prasad C.N.P. - 06/18/2021 10:22 AM CDT Images from [...] man agement can be found on the [employer] site. Link [email or web address] Procedure Note Grey Stratton M.D. - 06/18/2021Formatt [...] man agement can be found on the [employer] site. Link [email or web address] IMPRESSION: Negative for acute DVT. Remberto EwingNMaggie [...] Address City/State/ZIP Code Phon e Number NUÑEZ [address] [address] [facility] [address] [address] Comprehensive Metabolic Panel (06/18/2021 10:34 AM [...] CNFL Nitrogen), P mg/dL 11:03 AM CDT Creatinine 0.66 0.59 - 06/18/2021 CNFL 1.04 mg/dL 11:03 AM CDT eGFR-Black/Afric >90 >=60 06/18/2021 CNFL an Solomon Islander mL/min/BSA 11:03 AM CDT Comment: ----ADDITIONAL INFORMATION---- [...] C.N.P. LAB BLOOD ADD-ON Performing Organization Address City/State/[facility] Code Phon e Number [address] [address] [place] [address] CBC without Differential (06/18/2021 10:34 AM [...] 06/18/2021 Venous) AM CDT 10:36 AM CDT Sr N Prasad C.N.P. LAB BLOOD ADD-ON Performing Organization Address [facility] Phon e Number [address] [address] [place] [address] (ABNORMAL) D-Dimer (06/18/2021 10:34 AM CDT) P athologist Signature D-Dimer, P 769 (H) <=500 ng/mL 06/18/2021 FL FEU 12:09 PM CDT Comment: D-dimer concentrations [...] Venous) AM CDT 10:36 AM CDT Remberto EwingNSonjaP. LAB BLOOD ADD-ON Performing Organization Address [facility] Code Phon e Number [address] [address] [place] [address] [address] documented in this encounter Visit Diagnoses Diagnosis Pain Leg Right - Primary Pain Leg Right documented in this encounter Administered Medications Inactive Administered Medications - up to 3 most recent administrations Medication Order MAR Action Action Date Dose Rate Site enoxaparin injection 30 Given 06/18/2021 12:18 PM 30 mg Left Upper Abdomen mg (LOVENOX) CDT 30 mg, subcutaneous, Once, On 06/18/21 at 1215, For 1 dose ibuprofen tablet [...] documented as of this encounter Care Teams Grey Iron Molder Relationship Specialty Start Date End Date Elsewhere, Pcp PCP - General Internal Medicine 06/18/21 documented as of this encounter
--- OUTSIDE RECORDS SUMMARY | 2022-01-22 10:14 | XMS_ITS | Encounter Summary ---
:1970 Author Organization [facility] Address [address] [place] [address] Care Team Providers Name Role Phone Elsewhere, Pcp Primary Care Provider Unavailable Reason for Referral Outpatient (Routine) - Closed Specialty Diagnoses / Procedures Referred By Contact Refer red To Contact Diagnoses Screening Mammogram Breast Cancer Paul Abarca M.D., Ph.D. [facility] Region Procedures BI Breast Screening Bilateral [address] [place] [address] [place] [phone] Referral ID Status Reason Start Date Expiration Date Visits Requ ested Visits Authorized [id number] Closed 11/05/2019 11/04/2020 1 1 Reason for Visit Outpatient (Routine) - Closed Specialty Diagnoses / Procedures Referred By Contact Refer red To Contact Diagnoses Screening Mammogram Breast Cancer Paul Abarca M.D., Ph.D. [facility] Region Procedures BI Breast Screening Bilateral [address] [place] [address] [place] [address] Referral ID Status Reason Start Date Expiration Date Visits Requ ested Visits Authorized [id number] Closed 11/05/2019 11/04/2020 1 1 Encounter Details Date Type Department Care Team Description 11/08/2019 Hospital Encounter Department of Paul Abarca, Chantel ing Mammogram Radiology in Rogelio Watters, Ph.D. Breast Cancer [place] [phone] [facility] [phone] [place] [address] Rogelio Guerrero, [address] [place] [address] Social History Tobacco Use Types Packs/Day [...] the highest level of school Associate degree: [email or web address] 06/22/2019 you have completed or the highest [...] Imaging RST LOS, Breast Imaging ARZ LOS, [place] [facility] Bilateral Mammography Imaging FLA LOS Specimen (Source) Anatomical Collection Method Collection Time Re ceived Time Location / / Volume Laterality 11/09/2019 9:54 AM CDT Impressions 11/09/2019 9:59 AM CDT Negative. RECOMMENDATION: ??Annual Screening Mammo gram ASSESSMENT: ??BI-RADS: 1: Negative. Narrative 11/09/2019 9:59 AM CDT EXAM: ??BI BREAST SCREENING BILATERAL Current study was evaluated with a Compu ter Aided Detection (CAD) system. INDICATION: ??Screening mammogram. [...] BILATERAL Current study was evaluated with a Compu ter Aided Detection (CAD) system. INDICATION: Screening mammogram. COMPARISON: Prior exam(s) were available and reviewed for comparison. DENSITY: c. The breast(s) are heterogene ously dense, which may obscure small masses. FINDINGS: No mammographic findings of ma lignancy. IMPRESSION: Negative. RECOMMENDATION: Annual Screening Mammogr am ASSESSMENT: BI-RADS: 1: Negative. Paul Abarca M.D., Ph.D. IMG BI PROCEDURES documented in this encounter Visit Diagnoses Diagnosis Screening Mammogram Breast Cancer documented in this encounter Additional Health Concerns Assessment Noted Time PHQ-9 Depression Total Score: 3 09/15/2015 2:08 PM CDT documented as of this encounter Care Teams Fresco Artist Relationship Specialty Start Date End Date Elsewhere, Pcp PCP - General Internal Medicine 06/08/19 06/15/21 documented as of this encounter
--- OUTSIDE RECORDS SUMMARY | 2022-01-22 10:14 | XMS_ITS | Clinical Summary ---
:1970 Author Organization [facility] Address [address] [place] [address] Care Team Providers Name Role Phone Elsewhere, Pcp Primary Care Provider Unavailable Source Comments Patient records contain information from all sites at [facility]. For routine questions regarding patient records, call [phone] during business hours, M-F 8:00 AM - 5:00 PM Central Time. Record requests for emergency care only can be directed to [phone] at any time.[facility] Allergies Active Allergy Reactions Severity [...] HepB (discontinued) 09/27/2002, 08/18/2002, 05/19/2002, adolescent/high risk 08/22/1998 Tdap 10/24/2005 Family History Medical History [...] of 2) 08/16/2019 COVID-19 Vaccine (3 - 06/28/2020 05/03/2020, 04/05/2020 Booster for Moderna series) Mammogram 11/07/2020 11/08/2019, 10/27/2018, 05/06/2017, Additional history exists Influenza Vaccine (#1) 2021 01/12/2019, 12/17/2016, 12/22/2009 Thyroid Stimulating Hormone 02/21/2022 02/21/2021, 09/26/19 21, (TSH) test for thyroid 06/27/2020, Additional function history exists Fasting Glucose for 06/18/2024 06/18/2021, 06/27/2020, Diabetes Screening 07/22/2018, Additional history exists Lipid (Cholesterol) 06/27/2025 06/27/2020, 12/14/2018, Screening 08/29/2017, Additional history exists DTaP,Tdap,and Td Vaccines 08/30/2027 08/29/2017, 10/24/2005 (3 - Td or Tdap) Hepatitis B Vaccines Completed 09/27/2002, 09/27/2002, 08/18/2002, Additional history exists Pneumococcal vaccine (0-64 Aged Out No lo nger eligible years) based on patient 's age to complete this topic Insurance Payer Benefit Plan Subscriber ID Effective Dates Phone Address Type / Group [place] [id number] 2020-Prese [phone] [address] [address] PPO [place] [address] [place] [address] Care Teams Hospice Aide Relationship Specialty Start Date End Date Elsewhere, Pcp PCP - General Internal Medicine 06/18/21
--- OUTSIDE RECORDS SUMMARY | 2022-01-22 10:14 | XMS_ITS | Encounter Summary ---
:1970 Author Organization [facility] Address [address] [place] [address] Care Team Providers Name Role Phone Elsewhere, Pcp Primary Care Provider Unavailable Reason for Referral MRI/CAT/PET Scan (Routine) - Closed Specialty Diagnoses / Procedures Referred By Contact Refer red To Contact Radiology Diagnoses Pain Right Lower Quadrant Penny Palacios M.D. [facility] [place] Region Procedures CT Abdomen Pelvis with IV Contrast [place] CT ABD&PELVIS W CNTRST [address] [place] [address] Referral ID Status Reason Start Date Expiration Date Visits Requ ested Visits Authorized [id number] Closed 11/04/2019 11/03/2020 1 1 Reason for Visit MRI/CAT/PET Scan (Routine) - Closed Specialty Diagnoses / Procedures Referred By Contact Refer red To Contact Radiology Diagnoses Pain Right Lower Quadrant Penny Palacios M.D. [facility] [place] Region Procedures CT Abdomen Pelvis with IV Contrast [place] CT ABD&PELVIS W CNTRST [address] [place] [address] Referral ID Status Reason Start Date Expiration Date Visits Requ ested Visits Authorized [id number] Closed 11/04/2019 11/03/2020 1 1 Encounter Details Date Type Department Care Team Description 11/04/2019 Hospital Encounter Department of Penny Palacios Pain Right Lower Radiology in Rogelio Coleman M.D. [place], [place] [address] [place] [address] [address] [address] [place], [place] [phone] (Work) [phone] Social History Tobacco Use Types Packs/Day Years [...] the highest level of school Associate degree: [employer] program 06/22/2019 you have completed or the [...] documented as of this encounter Care Teams Base Manager Relationship Specialty Start Date End Date Elsewhere, Pcp PCP - General Internal Medicine 06/08/19 06/15/21 documented as of this encounter
--- OUTSIDE RECORDS SUMMARY | 2022-01-22 10:14 | XMS_ITS | Encounter Summary ---
:1970 Author Organization [facility] Address [address] [place] [address] Care Team Providers Name Role Phone Elsewhere, Pcp Primary Care Provider Unavailable Reason for Visit Reason Onset Date Comments Outpatient COVID-19 Testing 12/15/2019 Encounter Details Date Type Department Care Team Description 12/15/2019 External Outreach Department of [facility] Riddhi Rainey Infection Upper Medicine, [place] Jessica BurnsABethany Respiratory (Primary Clinic, in [place] [address] [address]) [place], [place] [address] [address] [place], [place] [phone] [address] (Work) [phone] Social History Tobacco Use Types Packs/Day Years [...] highest level of school Associate degree: [employer] program 06/22/2019 you have completed or the [...] RNA, V Symptomatic (12/15/2019 10:15 AM CDT) [facility] Method Time Signature SARS-CoV-2 Swab, 12/15/2019 [...] is performed using the Aptima SARS-CoV-2 assay ([employer] which has received Emergency Use Authori zation (EUA) by the U.S. Food and Drug Administration. Fact sheets for this Emergency Use Autho rization (EUA) assay can be found at the following links: For Healthcare Providers: https://www.fd a.gov/media/593536/download For Patients: https://www.fda.gov/media/ 750403/download Specimen Anatomical Collection Method Collection Time Receive d Time (Source) Location / / Volume Laterality Varies 12/15/2019 10:15 12/15/2019 3:12 (Nasopharynx) AM CDT PM CDT Carl Rainey P.A.-C. LAB MICROBIOLOGY - GENERAL O [place] Performing Organization Address City/State/ZIP Code Phon e Number [facility]- [address] [place] [address] [address] [facility] [place] [address] System [address] documented in this encounter Visit Diagnoses Diagnosis Infection Upper Respiratory - Primary documented in this encounter Additional Health Concerns Infection Onset Date Last Indicated Resolved Time COVID19 Pending 12/15/2019 12/15/2019 12/15/2019 9:45 PM CDT Assessment Noted Time PHQ-9 Depression Total Score: 3 09/15/2015 2:08 PM CDT documented as of this encounter Care Teams Choir Singer Relationship Specialty Start Date End Date Elsewhere, Pcp PCP - General Internal Medicine 06/08/19 06/15/21 documented as of this encounter
--- OUTSIDE RECORDS SUMMARY | 2022-01-22 10:14 | XMS_ITS | Encounter Summary ---
:1970 Author Organization [facility] Address [address] [place] [address] Care Team Providers Name Role Phone Elsewhere, Pcp Primary Care Provider Unavailable Reason for Referral Specialty Diagnoses / Procedures Referred By Contact Refer red To Contact Lili Brown M.D. [facility] [address] [place] [phone] Referral ID Status Reason Start Date Expiration Date Visits Requ ested Visits Authorized ISSIONS MANAGER Encounter Details Date Type Department Care Team Description 01/19/2021 Orders Only RST PCP HLTH MNT Lili Brown M.D. [address] [place] [phone] (Wo rk) Social History Tobacco [...] 06/22/2019 organizations such as sabianist groups, unions, fraternal or athletic groups, or [...] highest level of school Associate degree: academ [employer] program 06/22/2019 you have completed or the [...] documented as of this encounter Care Teams Real Estate Leasing Manager Relationship Specialty Start Date End Date Elsewhere, Pcp PCP - General Internal Medicine 06/08/19 06/15/21 documented as of this encounter
--- OUTSIDE RECORDS SUMMARY | 2022-01-22 10:14 | XMS_ITS | Encounter Summary ---
:1970 Author Organization [facility] Address [address] [place] [address] Care Team Providers Name Role Phone Elsewhere, Pcp Primary Care Provider Unavailable Encounter Details Date Type Department Care Team Description 06/11/2019 Orders Only Department of Cardiovascular Adebayo Campos, Diseases in [place] [address] [facility] [address] [place] [phone] (Wo rk) Social History Tobacco Use Types [...] or relatives? How often do you attend latter day or More than 4 times per year 06/22/2019 bahai services? Do you belong to any clubs or No 06/22/2019 organizations such as latter day groups, unions, fraternal or athletic groups, or [...] documented as of this encounter Care Teams Animal Caregiver Relationship Specialty Start Date End Date Elsewhere, Pcp PCP - General Internal Medicine 06/08/19 06/15/21 documented as of this encounter
--- OUTSIDE RECORDS SUMMARY | 2022-01-22 10:15 | XMS_ITS | Encounter Summary ---
:1970 Author Organization [facility] Address [address] [place] [address] Care Team Providers Name Role Phone Unavailable Primary Care Provider Unavailable Reason for Visit Reason Comments Advice Only pt has seen rand cementer in the past, is having symptoms that pt would like to discuss Appointment Request (Routine) - Closed Specialty Diagnoses / Procedures Referred By Contact Refer red To Contact Family Medicine Referral ID Status Reason Start Date Expiration Date Visits Requ ested Visits Authorized [id number] Closed 09/09/2018 09/09/2019 1 1 Encounter Details Date Type Department Care Team Description 09/24/2018 Office Visit Department of Mahamed Campos Pain Chest Atypical Cardiovascular Diseases Janene Up (Primary Dx) in [facility] [address] [facility] [address] [place] [phone] [phone] Social History Tobacco Use Types Packs/Day Years [...] More than 4 times per year 06/22/2019 orthodox services? Do you belong to any clubs [...] Laura is a pleasant 48-year-old female from [place], [place]. 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 She previously followed in [facility] with Dr. Paul pedraza back in [...] has undergone evaluation in the Orthopedic Clinic ([facility] in [facility]). She is not felt to be a [...] dog and taking the stairs. 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 She is with [...] to hip dysplasia #3 History of [place] 2011 attributed to vasospasm #4 Tobacco abuse PLAN: [...] how to access online yoga videos via [employer]. 2. I would advise 3 to 6 [...] consultation with greater than 50% in direct konx-wl-idrq counseling. CT CT Job ID: [id number] documented in this encounter Plan of Treatment Not on filedocumented as of this encounter Visit Diagnoses Diagnosis Pain Chest Atypical - Primary documented in this encounter Additional Health Concerns Assessment Noted Time PHQ-9 Depression Total Score: 3 09/15/2015 2:08 PM CDT documented as of this encounter
--- OUTSIDE RECORDS SUMMARY | 2022-01-22 10:15 | XMS_ITS | Encounter Summary ---
:1970 Author Organization [facility] Address [address] [place] [address] Care Team Providers Name Role Phone Unavailable Primary Care Provider Unavailable Encounter Details Date Type Department Care Team Description 03/14/2014 Hospital Encounter HX [facility] Tiffanie Munoz, ALVERTO, C.N.P., D.N.P. [address] [place], [place] [phone] (Wo rk) Social History [...] More than 4 times per year 06/22/2019 jainism services? Do you belong to any clubs [...] 173 cm (5' 8.11) 03/14/2014 10:12 AM SIDEWALK INSPECTOR Body Mass Index - - documented in this encounter Plan of Treatment Not on filedocumented as of this encounter Procedures Procedure Name Priority Date/Time Associated Comments Diagnosis 5-HYDROXYINDOLEACETIC Routine 03/14/2014 6:00 AM Results for this ACID, 24 HR U SIDEWALK INSPECTOR procedure are in the results section. CATECHOLAMINE FRACT, Routine 03/14/2014 6:00 AM R esults for this FREE, U SIDEWALK INSPECTOR procedure are i n the results section. documented in this encounter Results 5-Hydroxyindoleacetic Acid (5-HIAA), 24 Hour, Urine (03/14/2014 6:00 AM SIDEWALK INSPECTOR) P athologist Signature 5-Hydroxyindole 4.8 <=8.0 POWERCHART acetic Acid, U MG24HR HXHrs 24 HR POWERCHART 5-HIAA-[place] HXTV 1425 ML POWERCHART 5-HIAA-[place] Comment: Test Performed by: [facility] [place] [address] Quarter Backer: Leanne Jorge Specimen (Source) Anatomical Collection Method Collection Time Re ceived Time Location / / Volume Laterality Urine 03/14/2014 6:00 AM SIDEWALK INSPECTOR Tiffanie Munoz APRN, C.N.P., D.N.P. LAB URINE ORDE RABLES Performing Organization Address City/[facility] Code Phon e Number POWERCHART (ABNORMAL) Catecholamine Fractionation, Free, 24 Hour, Urine (03/14/2014 6:00 AM SIDEWALK INSPECTOR) Patholo gist Method Time Signature HXHrs Catech 24 HR POWERCHART Free-[place] HXTV Catech 1425 ML POWERCHART Free-[place] Norepinephrine 12 (L) 15 - 80 POWERCHART Epinephrine 1.1 <21 POWERCHART Dopamine 229 65 - 400 POWERCHART Comment: Test Performed by: [facility] [place] [address] Quarter Backer: Leanne Jorge Specimen (Source) Anatomical Collection Method Collection Time Re ceived Time Location / / Volume Laterality Urine 03/14/2014 6:00 AM SIDEWALK INSPECTOR Tiffanie Munoz APRN, C.N.P., D.N.P. LAB URINE ORDE RABNICOLE Performing Organization Address City/[facility] Code Phon e Number POWERCHART documented in this encounter Visit Diagnoses Not on filedocumented in this encounter Additional Health Concerns Assessment Noted Time PHQ-9 Depression Total Score: 10 03/11/2013 2:22 PM CS T documented as of this encounter
--- OUTSIDE RECORDS SUMMARY | 2022-01-22 10:15 | XMS_ITS | Encounter Summary ---
:1970 Author Organization [facility] Address [address] [place] [address] Care Team Providers Name Role Phone Unavailable Primary Care Provider Unavailable Encounter Details Date Type Department Care Team Description 06/17/2013 Hospital Encounter [facility] Tiffanie Christiansen, ALVERTO, C.N.P., D.N.P. [address] [place], [place] [phone] (Wo rk) Social History [...] More than 4 times per year 06/22/2019 christianity services? Do you belong to any clubs [...] this encounter Miscellaneous Notes Miscellaneous - Tiffanie Christiansen, Cynthia.N.P., C.N.P. - 06/18/2013 4:10 PM CDT Normal Results Letter 18 June 2013 GERMAN NOVAK [address] [facility] [id number] Dear GERMAN NOVAK, I am pleased to [...] Chol/HDL Ratio 3 06/17/2013 3 03/11/2013 Sincerely, TIFFNAIE CHRISTIANSEN [facility] [place] [address] Electronic Signature Electronically Signed By: TIFFANIE CHRISTIANSEN DNP, FNP On: 18 June 2013 This document has images extracted. Source: [facility] Bio-Adhesive AllianceCHART Document Id: [id number] documented in this encounter Plan of Treatment [...] Blood 06/17/2013 7:55 AM CDT Tiffanie Christiansen MACHINE MARKER, C.N.P., D.N.P. LAB BLOOD ADD- ON Performing [...] LAB BLOOD ADD- ON Performing Organization Address City/State/[facility] Code Phon e Number POWERCHART documented in this encounter Visit Diagnoses Not on filedocumented in this encounter Additional Health Concerns Assessment Noted Time PHQ-9 Depression Total Score: 03/11/2013 2:22 PM CS T documented as of this encounter
--- OUTSIDE RECORDS SUMMARY | 2022-01-22 10:15 | XMS_ITS | Encounter Summary ---
:1970 Author Organization [facility] Address [address] [place] [address] Care Team Providers Name Role Phone Elsewhere, Pcp Primary Care Provider Unavailable Reason for Visit Reason Comments Shortness of Breath Encounter Details Date Type Department Care Team Description 06/08/2019 Emergency [facility] Adis Cardenas, Shortness Of Breath (Primary Dx); Department M.D. Anxiety [id number] [address] Rogelio Guerrero [place] [phone] Social History Tobacco Use Types Packs/Day [...] or relatives? How often do you attend methodist or More than 4 times per year 06/22/2019 worship services? Do you belong to any clubs or No 06/22/2019 organizations such as methodist groups, unions, fraternal or athletic groups, or [...] Sig Dispensed Refills Start Date End Date simvastatin (ZOCOR) 20 Take 20 mg by mouth 0 /2 10/2018 mg tablet daily. verapamil (VERELAN) 240 Take 240 mg by mouth 0 mg 24 hr capsule daily. LORazepam (ATIVAN) 0.5 Take 0.5 mg by [...] mouth 0 09/15/[address] capsule daily. traZODone (DESYREL) 50 Take 50 mg by mouth 0 07/2018 mg tablet Medrol Dose Pack scheduling ONLY. documented as of this encounter ED Notes Adis Cardenas M.D. - 06/08/2019 5:49 PM CDT SUBJECTIVE CHIEF COMPLAINT/REASON FOR VISIT Shortness of Breath HISTORY OF PRESENT ILLNESS Two weeks of variable chest discomfort associated with shortness of breath. She is particularly concerned because she had a non-STEMI [place] a many years ago. As a result [...] supplements. ??If the result does not [facility] clinical observations, repeat testing after patient refrains fr om the use of supplements for at least 12 hours. Specimen Anatomical Collection Method Collection Time Receive d Time (Source) Location / / Volume Laterality Blood (Blood, 06/08/2019 4:23 PM 06/08/19 20 4:26 Venous) CDT PM CDT Adis Cardenas M.D. LAB BLOOD ADD-ON Performing Organization Address City/[facility] Phon e Number [address] [address] [place] [address] [address] ECG 12 Lead (06/08/2019 3:46 PM CDT) P athologist Signature Ventricular Rate 74 BPM MUSE ECG/Min [place] Interval 164 ms MUSE QRSD Interval 88 ms MUSE QT Interval 436 ms MUSE QTC Interval 483 ms MUSE P [place] 54 degrees MUSE R [place] 10 degrees MUSE T Wave [place] 17 degrees MUSE Specimen Anatomical Collection Method [...] has lengthened Reviewed by KARLOS Goncalves Adis Cardenas M.D. ECG ORDERABLES Performing Organization Address City/State/ZIP [...] 1 mg 1 mg, oral, Once, On Tu06/08/19 at 1657, For 1 dose documented in [...] documented as of this encounter Care Teams Test Man Relationship Specialty Start Date End Date Elsewhere, Pcp PCP - General Internal Medicine 06/08/19 06/15/21 documented as of this encounter
--- OUTSIDE RECORDS SUMMARY | 2022-01-22 10:15 | XMS_ITS | Encounter Summary ---
:1970 Author Organization [facility] Address [address] [place] [address] Care Team Providers Name Role Phone Elsewhere, Pcp Primary Care Provider Unavailable Reason for Referral Outpatient (Routine) - Closed Specialty Diagnoses / Referred By Contact Referred To Contact Procedures Cardiovascular Diseases / Diagnoses Pain Chest Atypical Mahamed Campos, [facility] Cardiovascular Disease MJuancarlos [address] [place] [address] Referral ID Status Reason Start Date Expiration Date Visits Requ ested Visits Authorized [id number] Closed 06/10/2019 06/09/2020 1 1 Encounter Details Date Type Department Care Team Description 06/10/2019 Orders Only Department of Mahamed Campos Pain Chest Atypical Cardiovascular Diseases Janene Up (Primary Dx) in [facility] [address] [place] [address] [place] [phone] Social History Tobacco Use Types Packs/Day Years [...] or relatives? How often do you attend anabaptist or More than 4 times per year 06/22/2019 religion services? Do you belong to any clubs or No 06/22/2019 organizations such as anabaptist groups, unions, [employer] or athletic groups, or school groups? How [...] documented as of this encounter Care Teams Instrument Lens Grinder Apprentice Relationship Specialty Start Date End Date Elsewhere, Pcp PCP - General Internal Medicine 06/08/19 06/15/21 documented as of this encounter
--- OUTSIDE RECORDS SUMMARY | 2022-01-22 10:15 | XMS_ITS | Encounter Summary ---
:1970 Author Organization [facility] Address [address] [place] [address] Care Team Providers Name Role Phone Unavailable Primary Care Provider Unavailable Encounter Details Date Type Department Care Team Description 03/11/2013 Hospital Encounter HX [facility] Karen Fernandez, ALVERTO, C.N.P., D. N.P. [address], [place] [phone] (Wo rk) Social History [...] or relatives? How often do you attend quaker or More than 4 times per year 06/22/2019 episcopal services? Do you belong to any clubs or No 06/22/2019 organizations such as quaker groups, unions, fraternal or athletic groups, or [...]
--- OUTSIDE RECORDS SUMMARY | 2022-01-22 10:15 | XMS_ITS | Encounter Summary ---
:1970 Author Organization [facility] Address [address] [place] [address] Care Team Providers Name Role Phone Unavailable Primary Care Provider Unavailable Encounter Details Date Type Department Care Team Description 09/14/2015 - Hospital Encounter HX [facility] Adis Zambrano, 09/15/2015 Janene, Ph.D. [address] [place] [address] Social History Tobacco Use Types Packs/Day Years [...] or relatives? How often do you attend mandaen or More than 4 times per year 06/22/2019 muslim services? Do you belong to any clubs or No 06/22/2019 organizations such as mandaen groups, unions, fraternal or athletic groups, or [...] [employer]. Pulse 52 09/15/2015 12:30 Value from [facility] tplus. PM CDT Temperature - - [...] athologist Signature Troponin T, S <0.01 <0.01 [facility] Specimen Anatomical Collection Method Collection Time Receive d Time (Source) Location / / Volume Laterality 09/14/2015 5:29 PM 6 5:29 CDT PM CDT Ailyn Dee M.D., Ph.D. LAB BLOOD ADD-ON Performing Organization Address City/State/ZIP Code Phon e Number [facility] [address] [place], [place] [address] [facility] ECG 12 Lead (09/14/2015 5:22 PM CDT) Specimen (Source) Anatomical Collection Method Collection Time Re ceived Time Location / / Volume Laterality 09/14/2015 5:22 PM CDT [facility] SYSTEM - 09/14/2015 5:27 PM CDT [id number] 17:22 VENTRICULAR RATE 52 Sinus bradycardia Low voltage QRS When compared with ECG of 14-SEP-2015 10 :15, No significant change was found [id number]^JR JENNY ROSALES^JUVENTINO Procedure Note Juventino Rosales Jr., M.D. - 05/29/2017For matting of this note might be different from the original. [id number] 17:22 VENTRICULAR RATE 52 Sinus bradycardia Low voltage QRS When compared with ECG of 14-SEP-2015 10 :15, No significant change was found [id number]^JR JENNY ROSALES^JUVENTINO Ailyn Dee M.D., Ph.D. ECG ORDERABLES Performing Organization Address City/State/ZIP Code Phon e Number HX [facility] [address] [place] [address] [place] [address], [place] documented in this encounter Visit Diagnoses Not on filedocumented in this encounter Additional Health Concerns Assessment Noted Time PHQ-9 Depression Total Score: 10 03/11/2013 2:22 PM CS T documented as of this encounter
--- OUTSIDE RECORDS SUMMARY | 2022-01-22 10:15 | XMS_ITS | Encounter Summary ---
:1970 Author Organization [facility] Address [address] [place] [address] Care Team Providers Name Role Phone Unavailable Primary Care Provider Unavailable Encounter Details Date Type Department Care Team Description 09/14/2015 Hospital Encounter [facility] ED Jayne Lopez M.D. [address] [place], [place] [phone] (Wo rk) Social History [...] or relatives? How often do you attend bahai or More than 4 times per year 06/22/2019 mosque services? Do you belong to any clubs or No 06/22/2019 organizations such as bahai groups, unions, fraternal or athletic groups, or [...] in this encounter Discharge Summaries Valarie Centeno, RSonjaN. - 09/14/2015 1:14 PM CDT ED Depart Summary [facility] Emergency Department Clinical Discharge Summary PERSON INFORMATION Name GERMAN NOVAK Age 45 Years 1970 12:00 AM Sex Female Language Dominican PCP PCP, ELSEWHERE Marital Status N [id number] Visit Id Visit Reason Chest pain; rule out heart attack Specialty Enc Type Emergency Med Service Emergency Medicine Referred by Track Group [facility] ED Discharge 09/14/2015 1:05 PM Tracking Id [id number] Checkout 09/14/2015 1:05 PM Checkin 09/14/2015 10:07 AM Acuity 2 -Emergent Dispo Type Disch/Trans ShortTerm Gen Hosp-Inpt Care Arrival 09/14/2015 10:07 AM Reg Status LOS 000 02:58 Address: [address] [place] [address] [place] [phone] Comment: PROVIDER INFORMATION Provider Role Provider Contact Time CLARENCE LOPEZ MD ED Provider 09/14/15 10:09 VALARIE CENTENO TRANSFORMATION ARCHITECT Nurse 09/14/15 10:55 DIAGNOSIS Comment: PATIENT EDUCATION INFORMATION Instructions: Follow up: Source: [facility] POWERCHART Document Id: [id number] Valarie Centeno R.N. - 09/14/2015 1:14 PM CDT ED Discharge Instructions [address] [address] Name: GERMAN NOVAK Date of : 1970 12:00 AM Visit Date: 09/14/2015 10:07 AM [facility] Number: [id number] Address: [address] [place] [address] [place] [phone] Primary Care Provider: PCP, ELSEWHERE IMPORTANT: [facility] in [place] would like to thank you for allowing [...] if you dont have one. Go to [email or web address] and click on Create Your Account. Then, follow the directions to complete the online form. Youll be asked for your [facility] number which you can find at the [...] arrange a ride home with a responsible alliance party. IMURALI WENDY SUE , or responsible alliance party have received this information and my questions have been answered. I have discussed any challenges I see with this plan with the nurse or physician. Patient Signature or Responsible Republican/Relationship Date Time Provider Signature Date Time IMPORTANT: [...] arrange a ride home with a responsible alliance party. MURALI Romo WENDY SUE , or responsible alliance party have received this information and my questions have been answered. I have discussed any challenges I see with this plan with the nurse or physician. Patient Signature or Responsible Republican/Relationship Date Time Provider Signature Date Time Source: [facility] POWERCHART Document Id: [id number] documented in this encounter Medications at Time [...] CENTENO RN - 09/14/2015 13:10 CDT Source: [facility] [employer] Document Id: [id number] CDT!16 Valarie Centeno R.N. - 09/14/2015 1:10 PM CDT ED Treatments and Procedures ED Treatments and Procedures Entered On: 09/14/2015 13:11 CDT Performed On: 09/14/2015 13:10 CDT by VALARIE CENTENO RN Cardiac Monitoring Monitoring Lead : II Monitoring Lead Neurology Specialist : Discontinued Cardiac Rhythm Tech : Sinus [...] CENTENO RN - 09/14/2015 13:10 CDT Source: [facility] Document Id: [id number] CDT!13 Valarie Centeon R.N. - 09/14/2015 1:09 PM CDT ED Disposition Summary ED Disposition Summary Entered On: 09/14/2015 13:10 CDT Performed On: 09/14/2015 13:09 CDT by VALARIE CENTENO TRANSFORMATION ARCHITECT Disposition Summary Present in Room During Exam/Procedure : EMS Mode of Discharge : Stretcher Transportation : Ground ambulance Nurse Receiving Report : FLORENCIO Briseno RN- [place] [facility] Referral Date/Time Nurse Received Report : 09/14/2015 13:05 CDT Transporter : EMT, Project Management Director Discharge From ED With : Senior Asset Manager Printed Discharge Instructions Given to Patient : No Reason Discharge Instructions Not Given : Transfer SMR-Cardiology Patient Status at Discharge from ED : Improved VALARIE CENTENO RN - 09/14/2015 13:09 CDT Source: [facility] Document Id: [id number] CDT!12 Valarie Centeno R.N. - 09/14/2015 12:16 PM CDT ED Nurse Reassess ED Nurse Reassess Entered On: 09/14/2015 12:17 CDT Performed On: 09/14/2015 12:16 CDT by VALARIE CENTENO RN Pain Assessment Pain Symptoms : Yes VALARIE CENTENO GILES - 09/14/2015 12:16 CDT Pain Scale Pain Scale Verbal 0-10 : Open VALARIE CENTENO GILES - 09/14/2015 12:16 CDT Pain Pain Assessment Grid Pain 1 Pain 2 Pain 3 Location : Chest Abdomen Head Intensity : 0 0 (Comment: squeeze sensation [VALARIE CENTENO Brenda SKAGGS - 09/14/2015 12:16 CDT] ) 0 VALARIE CENTENO - 09/14/2015 12:16 CDT VALARIE CENTENO Brenda RN - 09/14/2015 12:16 CDT VALARIE CENTENO Brenad RN - 09/14/2015 12:16 CDT Comfort Measures Comfort Measures Response : Comfort level increased VALARIE CENTENO GILES - 09/14/2015 12:16 CDT Resp Reassess Respiratory Patient Stated Symptoms : None VALARIE CENTENO GILES - 09/14/2015 12:16 CDT CV Reassess CV Patient Stated Symptoms : None VALARIE CENTENO - 09/14/2015 12:16 CDT Neuro Reassess Last Well Time Known : Not applicable Orientation : Oriented x 3 Characteristics of Speech : Appropriate for age Level of Consciousness : Alert Neuro Patient Stated Symptoms : Other: arm numbness/tingling Gait : Steady VALARIE CENTENO - 09/14/2015 12:16 CDT Goree Coma Eye Opening Response Maame : Spontaneously Best Verbal Response Maame : Oriented Best Motor Response Goree : Obeys simple commands Goree Coma Score : 15 VALARIE CENTENO - 09/14/2015 12:16 CDT GI Reassess GI Patient Stated Symptoms : Abdominal pain VALARIE CENTENO RN - 09/14/2015 12:16 CDT /OB Reassess Patient Stated Symptoms : None VALARIE CENTENO GILES - 09/14/2015 12:16 CDT Integumentary Integumentary Patient Stated Symptoms : None VALARIE CENTENO GILES - 09/14/2015 12:16 CDT Source: [facility] Document Id: [id number] CDT!40 Valarie Centeno R.N. - 09/14/2015 10:44 AM CDT ED Primary Assessment Document Has Been Updated ED Primary Assessment Entered On: 09/14/2015 10:48 CDT Performed On: 09/14/2015 10:44 CDT by VALARIE CENTENO RN Reason For Visit (As Of: 09/14/2015 10:48:05 CDT) Problems(Active) Common migraine (SNOMED CT :81167864 ) Name of Problem: Common migraine ; Onset Date: Unknown ; Recorder: NELLIE JOHNSON RN; Confirmation: Confirmed ; Classification: Nursing ; Code: 40332452 ; Contributor System: Funding Circle ; Last Updated: 06/19/2010 11:18 CDT ; Life Cycle Status: Active ; Vocabulary:[place] CT Echocardiogram abnormal (SNOMED CT :440226475 ) Name of Problem: Echocardiogram abnormal ; Onset Date: 06/20/2010 ; Recorder: JUVE CHRISTIANSEN DNP, FNP; Confirmation: Confirmed ; Classification: Medical ; Code: 380092885 ; Contributor System: [employer] ; Last Updated: 07/28/2013 8:54 CDT ; [...] History of - myocardial infarction (SNOMED CT :8906101321 ) Name of Problem: History of - myocardialinfarction ; Onset Date: 06/18/2010 ; Recorder: NICKY HUMPHREYS MD; Confirmation: Confirmed ; Classification: Medical ; Code: 1077714660 ; Contributor System: PowerChart ; Last Updated: 03/11/2013 14:45 QUALITY ASSURANCE MONITOR FINAL ; 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 ; Life Cycle Status: Active ; Responsible Provider: NICKY MONTIEL MD; Vocabulary: SNOMED CT ; Comments: 04/24/2012 9:39 - NICKY MONTIEL MD NSTEMI 06/201003/11/2013 14:45 - JUVE CHRISTIANSEN DNP, PHYSICIST ACOUSTICS #[address] elevation myocardial infarction secondary to coronary vasospasm Mrs. Novak was transferred from the [place] [facility] department where he initial troponin was 0.06, and a CK-MB was 5.9. Her ECG at the outside facility was unremarkable. She was transferred to [facility] for evaluation of her elevation in her cardiac serial biomarkers. Due to her associated symptoms of headache and shortness of breath with the chest pain, a head CT was obtained upon arrival to [facility] and did not reveal any abnormalities. [...] may contain vasoconstricting agents. Hyperlipidemia (SNOMED CT :07199739 ) Name of Problem: Hyperlipidemia ; Onset Date: 03/11/2013 ; Recorder: MAXIME VARGHESE RN; Confirmation: Confirmed ; Classification: Medical ; Code: 02974404 ; Contributor System: [employer] Circle ; Last Updated: 03/11/2013 14:45 QUALITY ASSURANCE MONITOR FINAL ; Life Cycle Date: 02/11/2012 ; Life [...] Medical ; Code: 296.30 ; Contributor System: [employer] ; Last Updated: 04/24/2012 13:29 QUALITY ASSURANCE MONITOR FINAL ; 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 ; Life [...] PNED ; Probability: 0 ; Diagnosis Code: [id number] Triage Chief Complaint Description : See Triage Note Information Given By : Patient Present in Room During Exam/Procedure : Spouse Mode of Arrival ED : Private vehicle Track : Medical Languages : Dominican Patient Informed of Triage Location : Emergency [...] VALARIE CENTENO RN - 09/14/2015 10:44 CDT Maame Coma Eye Opening Response Maame : Spontaneously Best Verbal Response Maame : Oriented Best Motor Response Maame : Obeys simple commands Goree Coma Score : 15 VALARIE CENTENO RN - 09/14/2015 10:44 CDT Pain Assessment Pain Symptoms : Yes VALARIE CENTENO RN - 09/14/2015 10:44 CDT ED Physician Notification Time ED Physician Notification Time : 09/14/2015 10:07 CDT VALARIE CENTENO Brenda RN - 09/14/2015 10:44 CDT SAEED SAEED Level 1 : No SAEED Level 2 : No SAEED Level 3 : One VALARIE CENTENO RN - 09/14/2015 10:44 CDT DCP GENERIC CODE Tracking Acuity : 2 -Emergent Tracking Group : [facility] ED GEO CENTENORoxanna Brenda RN - 09/14/2015 10:44 CDT Allergy (As Of: 09/14/2015 10:48:05 CDT) Allergies (Active) morphine Estimated Onset Date: Unspecified ; Created By: RAVEN DELUNA LPN; Reaction Status: Active ; Category: Drug ; Substance: morphine ; Type: Allergy ; Updated By: RAVEN DELUNA LPN; Reviewed Date: 09/14/2015 10:47 CDT narcotic analgesics Estimated Onset Date: Unspecified ; Reactions: itch ; Created By: ENLLIE JOHNSON RN; Reaction Status: Active ; Category: [...] Room air Respiratory Detailed Assessment : Yes VALARIE CENTENO RN - 09/14/2015 10:44 CDT Resp Detailed Respiratory Patient Stated Symptoms : None VALARIE CENTENO Brenda RN - 09/14/2015 10:44 CDT Cardiovascular Heart Rhythm : Regular Skin Color : Normal for ethnicity Skin Description : Dry Skin Temperature : Warm Cardiovascular Detailed Assessment : Yes Monitoring Lead : II VALARIE CENTENO Brenda RN - 09/14/2015 10:44 CDT CV Detailed CV Patient Stated Symptoms : Chest pain Nail Bed Color : [place] Capillary Refill : Less than 2 seconds Heart Sounds ICU : S1S2 Cardiac Rhythm : Sinus bradycardia Edema Assessment : No MIGUELINADALTONDAMIAN Gutierrez RN - 09/14/2015 10:44 CDT Neurological Last Well Time Known : Not applicable Level of Consciousness : Alert Orientation : Oriented x 3 Characteristics of Speech : Appropriate for age Neuro Patient Stated Symptoms : Other: arm numbness/tingling Gait : Steady Swallowing Difficulty/Aspiration Risk : None MIGUELINAGEORoxanna Gutierrez RN - 09/14/2015 10:44 CDT ED Psychosocial Affect/Behavior : Calm, Cooperative, Appropriate Domestic Abuse Concerns : None, Unable to Screen Behavioral Health Screen/Safety Assmt : No Emotional Support Available : Yes ED Psychosocial Deviation : at bedside MIGUELINAGEORoxanna Gutierrez RN - 09/14/2015 10:44 CDT Gastrointestinal Nutrition ED : Adequate GI Detailed Assessment : Yes SBCynthiaGEORoxanna Gutierrez RN - 09/14/2015 10:44 CDT GI Detailed GI Patient Stated Symptoms : Abdominal pain, Nausea Bowel Movement Last Date : 09/14/2015 CDT Stool Color : Other: green Stool Description : Loose Abdomen Description : Symmetric Abdomen Palpation : Tender Tenderness : Right lower quadrant MIGUELINAVALARIE Brenda SKAGGS - 09/14/2015 10:44 CDT /OB Assessment Patient Stated Symptoms : None VALARIE CENTENO RN - 09/14/2015 10:44 CDT Integumentary Integumentary Patient Stated Symptoms : None Skin Turgor : Elastic Skin Integrity : Intact Mucous Membrane Color : [place] Mucous Membrane Description : Moist Skin Color [...] CENTENO RN - 09/14/2015 10:44 CDT [facility] Document Id: [id number] CDT!129 Valarie Centeno R.N. - 09/14/2015 10:20 [...] CENTENO RN - 09/14/2015 10:42 CDT Source: [facility] [employer] Document Id: [id number] CDT!17 Valarie Centeno R.N. - 09/14/2015 10:12 AM CDT ED Triage Assessment Document Has Been Updated ED Triage Assessment Entered On: 09/14/2015 10:42 CDT Performed On: 09/14/2015 10:12 CDT by VALARIE CENTENO RN Reason For Visit (As Of: 09/14/2015 10:42:53 CDT) Problems(Active) Common migraine (SNOMED CT :26963078 ) Name of Problem: Common migraine ; Onset Date: Unknown ; Recorder: NELLIE JOHNSON RN; Confirmation: Confirmed ; Classification: Nursing ; Code: 37060655 ; Contributor System: [employer] ; Last Updated: 06/19/2010 11:18 CDT ; Life Cycle Status: Active ; Vocabulary:SNBoost[place] CT Echocardiogram abnormal (SNOMED CT :982850998 ) Name of Problem: Echocardiogram abnormal ; Onset Date: 06/20/2010 ; Recorder: JUVE CHRISTIANSEN DNP, FNP; Confirmation: Confirmed ; Classification: Medical ; Code: 083832326 ; Contributor System: [employer] Circle ; Last Updated: 07/28/2013 8:54 CDT ; [...] History of - myocardial infarction (SNOMED CT :6797077057 ) Name of Problem: History of - myocardialinfarction ; Onset Date: 06/18/2010 ; Recorder: NICKY HUMPHREYS MD; Confirmation: Confirmed ; Classification: Medical ; Code: 1617006296 ; Contributor System: [employer] Circle ; Last Updated: 03/11/2013 14:45 QUALITY ASSURANCE MONITOR FINAL ; 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 ; Life Cycle Status: Active ; Responsible Provider: NICKY MONTIEL MD; Vocabulary: SNOMED CT ; Comments: 04/24/2012 9:39 - NICKY MONTIEL MD NSTEMI 06/201003/11/2013 14:45 - JUVE CHRISTIANSEN [facility], PHYSICIST ACOUSTICS #[address] elevation myocardial infarction secondary to coronary vasospasm Mrs. Novak was transferred from the [place] emerg[facility] department where he initial troponin was 0.06, and a CK-MB was 5.9. Her ECG at the outside facility was unremarkable. She was transferred to [facility] for evaluation of her elevation in her cardiac serial biomarkers. Due to her associated symptoms of headache and shortness of breath with the chest pain, a head CT was obtained upon arrival to [facility] and did not reveal any abnormalities. [...] may contain vasoconstricting agents. Hyperlipidemia (SNOMED CT :30800283 ) Name of Problem: Hyperlipidemia ; Onset Date: 03/11/2013 ; Recorder: MAXIME VARGHESE RN; Confirmation: Confirmed ; Classification: Medical ; Code: 22039301 ; Contributor System: [employer] ; Last Updated: 03/11/2013 14:45 QUALITY ASSURANCE MONITOR FINAL ; Life Cycle Date: 02/11/2012 ; Life Cycle Status: Active ; Responsible Provider: MAXIME VARGHESE RN; Vocabulary: SNOMED CT ; Comments: 02/14/2012 13:17 FRANCISCO GONZALEZ LPN unknown date of dx 04/10/2012 10:43 - JUAN ALBERTO CENTENO RN Patient stated she does not have this diagnosis Major Depressive Disorder, Recurrent Episode, Unspecified Degree (ICD-9-CM :296.30 ) Name of Problem: Major Depressive Disorder, Recurrent Episode, Unspecified Degree ; Recorder: NICKY MONTIEL MD; Confirmation: Confirmed ; Classification: Medical ; Code: 296.30 ; Contributor System: [employer] ; Last Updated: 04/24/2012 13:29 QUALITY ASSURANCE MONITOR FINAL ; 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 ; Life [...] PNED ; Probability: 0 ; Diagnosis Code: [id number] Triage Chief Complaint Description : 45 yo [...] Private vehicle Track : Medical Languages : Dominican Vital Signs Assessed : Yes Treatments Prior [...] Acuity : 2 -Emergent Tracking Group : [facility] ED VALARIE CENTENO RN - 09/14/2015 10:39 [...] CENTENO RN - 09/14/2015 10:39 CDT Source: [facility] Document Id: [id number] CDT!58 Valarie Centeno R.N. - 09/14/2015 10:12 AM CDT ED Treatments and Procedures ED Treatments and Procedures Entered On: 09/14/2015 10:44 CDT Performed On: 09/14/2015 10:12 CDT by VALARIE CENTENO RN Cardiac Monitoring Monitoring Lead : II Monitoring Lead Neurology Specialist : Initiated Cardiac Rhythm Tech : Sinus bradycardia VALARIE CENTENO RN - 09/14/2015 10:43 CDT Source: [facility] Document Id: [id number] CDT!5 Clarence Lopez M.D. - 09/14/2015 10:09 [...] at 33 Years. LEEP procedure of cervix (80084039) on 08/22/1996 at 26 Years. Total abdominal hysterectomy (corpus and cervix), with or without removal of tube(s), with or without removal of ovary(s); (03921). Comments: 07/13/2010 11:39 - RAVEN DELUNA LPN [...] normal sinus rhythm, No ST-T changes, normal MD & QRS intervals. Reexamination/ Reevaluation First troponin is negative. Discussed the case with Dr. Paul Jones (Cardiology). He would suggest to send the patient to [place] for further care. Awaiting CT results and will discus with patient. Contacted [facility] and discussed with Dr. Cricket Kearney. The [...] LOPEZ MD On: 09/14/2015 01:54 PM Source: [facility] POWERCHART Document Id: [id number] documented in this encounter Miscellaneous Notes Transfer of Care - Valarie Centeno R.N. - 09/14/2015 1:11 PM CDT Patient Transfer Patient Transfer Entered On: 09/14/2015 13:13 CDT Performed On: 09/14/2015 13:11 CDT by VALARIE CENTENO RN Patient Condition and Reason for Transfer Reason for Transfer : Medically indicated transfer, Patient requests transfer, Patient's legal workforce services representative requests transfer Patient's Condition for Transfer [...] LOPEZ MD Receiving Facility Accepting Transfer : [facility]-cARDIOLOGY Field Engineer of receiving facility accepting patient : SonjaChristel Date/Time Transfer Accepted : 09/14/2015 12:35 CDT Accepting Physician : Date/Time Physician Accepted Patient : 09/14/2015 12:35 CDT Nurse Receiving Report : Jnae Harris RN Date/Time Nurse Received Report : [...] orders Required Personnel for Transfer : EMT, Project Management Director VALARIE CENTENO RN - 09/14/2015 13:11 CDT [...] CENTENO RN - 09/14/2015 13:11 CDT Source: [facility] Document Id: [id number] CDT!31 Miscellaneous - Valarie Centeno R.N. - 09/14/2015 1:11 PM CDT Valuables/Belongings Valuables/Belongings Entered On: 09/14/2015 13:11 CDT Performed On: 09/14/2015 13:11 CDT by VALARIE CENTENO RN Valuables/Belongings Belongings Sent Home With : ALL BELONGINGS SENT WITH PATIENT/FAMILY Home Medication Disposition : None brought in with patient AVLARIE CENTENO RN - 09/14/2015 13:11 CDT Source: [facility] Document Id: [id number] CDT!4 Miscellaneous - Conversion, Historical Provider Ser - 09/14/2015 1:05 PM CDT Coding Summary-Paper Based CODING DATE: 09/21/2015 FINAL [facility] STATUS: Disch/Trans ShortTerm Gen Hosp-Inpt Care PAYOR: [...] result in slightly different terminology. Coded By: LEIGH AGRAWALZA Date Saved: 09/21/2015 12:30 pm Source: [facility] [employer] [facility] Document Id: [id number] Miscellaneous - Valarie Centeno RSonjaN. - 09/14/2015 [...] CENTENO RN Nursing Notes ED Primary Assessment,09/14/15 10:44,VAALRIE CENTENO RN ED Nurse Reassess,09/14/15 12:16,VALARIE CENTENO RN ED Pain Assessment,09/14/15 13:10,VALARIE CENTENO RN [facility] Nursing Assessment : Triage and 6+ nursing assessments [facility] Disposition : Transfer/Return to Hospital/SNF [facility] Total Points with Diagnosis Control : 21 [place] Visit Level : 36914 Level 5 Treatments Prior to Arrival : Aspirin VALARIE CENTENO RN - 09/14/2015 13:11 CDT Chief Complaint 11.0 Reason For Visit Category : Cardiorespiratory TVL Calculation : 20 ED Chief Complaint Cardiorespiratory 11.0 : Chest pain TVL for Facility Charge Ticket Dx : Level 5 VALARIE CENTENO RN - 09/14/2015 13:11 CDT Source: [facility] Document Id: [id number] CDT!23 documented in this encounter Plan of [...] Complete, Includes Microscopic (09/14/2015 10:29 AM CDT) [facility] Method Time Signature Clarity Slightly Clear POWERCHART Cloudy (A) HXUr Color Yellow Colorless POWERCHART Specific 1.020 POWERCHART [place], POCT, U pH, POCT, Urine 7.5 <5.0 [...] X109L Erythrocytes 4.48 3.90 - 5.03 POWERCHART S4621U Hemoglobin 14.7 12.0 - 15.5 POWERCHART GDL [...] M.D. LAB BLOOD ADD-ON Performing Organization Address City/[facility]/ZIP Code Phon e Number POWERCHART Bilirubin Direct (09/14/2015 10:20 AM CDT) P athologist Signature Bilirubin, 0.1 0.0 - 0.3 POWERCHART Direct, S MGDL Specimen (Source) Anatomical Collection Method Collection Time Re ceived Time Location / / Volume Laterality Blood 09/14/2015 10:20 AM CDT Clarence Lopez M.D. LAB BLOOD ADD-ON Performing Organization Address City/[facility]/ZIP Code Phon e Number POWERCHART Lipase (09/14/2015 10:20 AM CDT) P athologist Signature Lipase, S 33.3 10.0 - 73.0 POWERCHART UL Specimen (Source) Anatomical Collection Method Collection Time Re ceived Time Location / / Volume Laterality Blood 09/14/2015 10:20 AM CDT Clarence Lopez M.D. LAB BLOOD ADD-ON Performing Organization Address [facility]/ZIP Code Phon e Number POWERCHART ALT (Alanine Aminotransferase) (09/14/2015 10:20 AM CDT) P athologist Signature Alanine 26 7 - 45 POWERCHART Amniotransferas UNITL e, LD Specimen (Source) Anatomical Collection Method Collection Time Re ceived Time Location / / Volume Laterality Blood 09/14/2015 10:20 AM CDT Clarence Lopez M.D. LAB BLOOD ADD-ON Performing Organization Address City/[facility]/ZIP Code Phon e Number POWERCHART AST (Aspartate Aminotransferase) (09/14/2015 10:20 AM CDT) Patholo gist Method Time Signature Aspartate 28 8 - 43 POWERCHART Aminotransferase UNITL (AST), S Specimen (Source) Anatomical Collection Method Collection Time Re ceived Time Location / / Volume Laterality Blood 09/14/2015 10:20 AM CDT Clarence Lopez M.D. LAB BLOOD ADD-ON Performing Organization Address City/[facility]/ZIP Code Phon e Number POWERCHART BMP (Basic Metabolic Panel) (09/14/2015 10:20 AM CDT) P athologist Signature Sodium, S 136.1 135.0 - POWERCHART 145.0 MML Potassium, S 4.0 3.6 - 4.8 POWERCHART MMOLL Chloride, S 101 98 - 107 POWERCHART MMOLL CO2 Total 23.7 23.0 - POWERCHART 29.0 MMOLL BUN (Blood Urea 8 7 - 18 POWERCHART Nitrogen), S MGDL Creatinine 0.66 0.60 - POWERCHART 1.30 MGDL Calcium, Total, 9.5 8.6 - 10.0 POWERCHART S MGDL Anion Gap 11 10 - 20 POWERCHART MMOLL eGFR >60 >=60 POWERCHART Black/ [id number] Danish Glucose 103 70 - 139 POWERCHART MGDL HXeGFR (MDRD) >60 >=60 POWERCHART [id number] Specimen (Source) Anatomical Collection Method Collection Time [...]
--- OUTSIDE RECORDS SUMMARY | 2022-01-22 10:15 | XMS_ITS | Encounter Summary ---
:1970 Author Organization [facility] Address [address] [place] [address] Care Team Providers Name Role Phone Unavailable Primary Care Provider Unavailable Encounter Details Date Type Department Care Team Description 09/14/2016 Hospital Encounter HX [facility] [place] Angel Abarca M.D., Ph.D. [address] [place] [address] ERNESTO Ramirez [phone] (Wo rk) Social History [...] or relatives? How often do you attend mormon or More than 4 times per year 06/22/2019 roman catholic services? Do you belong to any clubs or No 06/22/2019 organizations such as mormon groups, unions, fraternal or athletic groups, or [...] (Rx) OV Est Pt Level 3 - 62326 - 15 min Rapid Strep Confirmation Electronically Signed By: ALEXA ABARCA MD On: 09/14/2016 11:48 AM Source: [facility] POWERCHART Document Id: [id number] documented in this encounter Miscellaneous Notes Miscellaneous - Alexa Abarca M.D. - 09/14/2016 11:41 AM CDT Ambulatory Patient Summary [address] [id number] Visit Information Name: GERMAN NOVAK [facility] Number: [id number] Current Date: 09/14/2016 11:41:20 Physicians Attending Provider: ALEXA ABARCA MD Primary Care Provider: PCP, ELSEWHERE GERMAN NOVAK JATIN has been given the following list of [...] vasospasm Mrs. Novak was transferred from the [place] emergency department where he initial troponin was 0.06, and a CK-MB was 5.9. [facility]. She was transferred to [...] if you dont have one. Go to [email or web address] and click on Create Your Account. Then, follow the directions to complete the online form. Youll be asked for your [facility] number which you can find at the top of this document. Your Goals/Additional instructions: Source: [facility] POWERCHART Document Id: [id number] A ELENA Boateng - Alexa Abarca M.D. - 09/14/2016 11:41 AM CDT Ambulatory Discharge Medication List [address] [place]io [place] [id number] Visit Information Name: GERMAN NOVAK [facility] Number: [id number] Current Date: 09/14/2016 11:41:19 Attending [...] MD Signed On:14-SEP-2016 11:41:17 Additional Information: Source: [facility] POWERCHART Document Id: [id number] A ELENA Boateng - Lori Maciel L.P.NSonja - 09/14/2016 10:19 AM CDT Adult Solar Sales Representative Intake/History Adult Solar Sales Representative Intake/History Entered On: 09/14/2016 10:22 CDT Performed [...] 09/14/2016 10:19 CDT General Info Languages : Burundian Is Patient Female and 13-50 no hysterectomy [...] MACIEL LPN - 09/14/2016 10:19 CDT Source: [facility] POWERCHART Document Id: [id number] CDT!45 documented in this encounter Plan of [...] Strep A Screen (09/14/2016 10:29 AM CDT) [facility] [place] Method Time Signature HXRapid Strep POWERCHART Confirmation HXFinal See Scanned POWERCHART Report Specimen Anatomical Collection Method Collection Time Receive d Time (Source) Location / / Volume Laterality Throat 09/14/2016 10:29 09/14/2016 AM CDT 10:29 AM CDT Alexa Abarca M.D., Ph.D. LAB MICROBIOLOGY - GENERAL O RDERABLES Performing Organization Address City/State/[facility] Code Phon e Number POWERCHART POWERCHART NA Rapid Strep A Screen (09/14/2016 10:29 AM CDT) [facility] [place] Method Time Signature HXStrep A POWERCHART Screen Rapid HXFinal Negative for POWERCHART Strep Group A by rapid screen. HXFinal Culture POWERCHART confirmation to follow. Specimen (Source) Anatomical Collection Method Collection Time Re ceived Time Location / / Volume Laterality Throat 09/14/2016 10:29 AM CDT Alexa Abarca M.D., Ph.D. LAB MICROBIOLOGY - GENERAL O RDERABLES Performing Organization Address City/State/ZIP Code Phon e Number POWERCHART documented in this encounter Visit Diagnoses Not on filedocumented in this encounter Additional Health Concerns Assessment Noted Time PHQ-9 Depression Total Score: 3 09/15/2015 2:08 PM CDT documented as of this encounter
--- OUTSIDE RECORDS SUMMARY | 2022-01-22 10:15 | XMS_ITS | Encounter Summary ---
:1970 Author Organization [facility] Address [address] [place] [address] Care Team Providers Name Role Phone Unavailable Primary Care Provider Unavailable Reason for Visit Physical Therapy (Routine) - Closed Specialty Diagnoses / Procedures Referred By Contact Refer red To Contact Diagnoses Aftercare Surgery Injury Ganesh Cortes M.D. [facility] Procedures PT Evaluate and treat [address] [place] [address] Referral ID Status Reason Start Date Expiration Date Visits Requ ested Visits Authorized [id number] Closed 11/27/2018 11/27/2019 1 1 Encounter Details Date Type Department Care Team Description 12/21/2018 Comprehensive Visit Department of Vida Cortes M.D. [address] [place] [address] Aftercare Surgery Rehabilitation Alyce Salguero, P.T. [address] [place] [phone] Injury Services in [address] [phone] Social History Tobacco Use Types Packs/Day Years [...] 06/22/2019 organizations such as restoration groups, unions, fraCtrax or athletic groups, or school groups? How [...] Visit Diagnosis: 1. Aftercare Surgery Injury Payor: [employer] / Plan: [employer] / Product Type: PPO / Epic Visit Count: 1 PERTINENT MEDICAL / SURGICAL [...] capsular closure performed by Dr. Cortes at [facility] in [place] on December 18, 2018. Aggravating Factors: Movement and ambulation (NWB with crutches). Relieving Factors: Rest, ice and Tylenol. Previous Treatments: Physical Therapy and Surgery. Prior Level of Function: History of bilateral hip pain, greater than one year. Patient independent. Patient goals: To resolve pain and return to previous level of function. OBJECTIVE PHYSICAL EXAM Pain: 08/17, patient is trying not to take pain [...] Salguero P.T. Department of Rehabilitation Services in [address] [address] Dept: [phone] documented in this encounter Plan of Treatment Not on filedocumented as of this encounter Visit Diagnoses Diagnosis Aftercare Surgery Injury documented in this encounter Additional Health Concerns Assessment Noted Time PHQ-9 Depression Total Score: 3 09/15/2015 2:08 PM CDT documented as of this encounter
--- OUTSIDE RECORDS SUMMARY | 2022-01-22 10:15 | XMS_ITS | Encounter Summary ---
:1970 Author Organization [facility] Address [address] [place] [address] Care Team Providers Name Role Phone Unavailable Primary Care Provider Unavailable Encounter Details Date Type Department Care Team Description 09/14/2015 Hospital Encounter HX NO MAPPING Hilario, Helena Perdomo, YANG N, C.N.P., D.N.P. [address] [place], [place] [phone] (Wo rk) Social History [...]
--- OUTSIDE RECORDS SUMMARY | 2022-01-22 10:15 | XMS_ITS | Encounter Summary ---
:1970 Author Organization [facility] Address [address] [place] [address] Care Team Providers Name Role Phone Unavailable Primary Care Provider Unavailable Reason for Visit Physical Therapy (Routine) - Canceled Specialty Diagnoses / Procedures Referred By Contact Refer red To Contact Diagnoses Aftercare Surgery Injury Ganesh Cortes M.D. [facility] Procedures PT Ongoing treatment [address] [place] [address] Referral ID Status Reason Start Date Expiration Date Visits V isits Requested Authorized [id number] Canceled 12/21/2018 03/09/2019 99 99 Encounter Details Date Type Department Care Team Description 01/08/2019 Clinical Support Department of Ganesh Cortes M.D. [address] [place] [address] [address] Aftercare Surgery Rehabilitation Alyce Salguero, P.T. [address] [place] [phone] Injury Services in [address] [phone] Social History Tobacco Use Types Packs/Day Years [...] or relatives? How often do you attend yarsanism or More than 4 times per year 06/22/2019 buddhist services? Do you belong to any clubs or No 06/22/2019 organizations such as yarsanism groups, unions, fraChoose Digital or athletic groups, or school groups? How [...] Salguero P.T. Department of Rehabilitation Services in [address] [address] Dept: [phone] documented in this encounter Plan of Treatment Not on filedocumented as of this encounter Visit Diagnoses Diagnosis Aftercare Surgery Injury documented in this encounter Additional Health Concerns Assessment Noted Time PHQ-9 Depression Total Score: 3 09/15/2015 2:08 PM CDT documented as of this encounter
--- OUTSIDE RECORDS SUMMARY | 2022-01-22 10:15 | XMS_ITS | Encounter Summary ---
:1970 Author Organization [facility] Address [address] [place] [address] Care Team Providers Name Role Phone Unavailable Primary Care Provider Unavailable Encounter Details Date Type Department Care Team Description 09/06/2013 Hospital Encounter HX [facility] Elio Roberts M.D. Social History Tobacco Use [...] More than 4 times per year 06/22/2019 advent services? Do you belong to any clubs [...] Roberts M.D. - 09/06/2013 3:16 PM CDT [id number] German comes in complaining of a headache. She has had it for the past week. She has used pnut-rpq-aqzmlxu medication, ibuprofen, Aleve, Tylenol, Excedrin without any [...] splenomegaly. IMPRESSION/REPORT/PLAN Migraine headache, not responsive to wopy-whi-hspunlh medications, esophageal reflux, chest pain. AnEKG was [...] the Prozac. Also suggested she get some hdsl-mtm-reoqrmb Prilosec and take it daily for the heartburn. Elio Rboerts M.D./shimon Electronically Signed By: ELIO ROBERTS MD On: 09/08/2013 07:49 AM Source: [facility] MHSDOLBEYNONRADSYS Document Id: [id number] documented in this encounter Miscellaneous Notes Miscellaneous - Raven Jaramillo L.P.N. - 03/08/2014 1:52 PM CST Quality Measures Quality Measures Entered On: 03/09/2014 13:53 CLINICAL TRIALS MANAGER Performed On: 03/08/2014 13:52 CLINICAL TRIALS MANAGER by RAVEN JARAMILLO LPN Depression PHQ-9 Score : 2 RAVEN JARAMILLO LPN - 03/09/2014 13:52 CLINICAL TRIALS MANAGER Source: [facility] POWERCHART Document Id: [id number] CLINICAL TRIALS MANAGER!3 ICAL TRIALS MANAGER Miscellaneous - Elio Roberts M.D. - 09/06/2013 5:15 PM CDT Ambulatory Patient Summary [id number] [place], [place] [id number] Visit Information Name: JASMYNEPATIENCEGERMAN KING JATIN [facility] Number: [id number] Current Date: 09/06/2013 17:15:09 Physicians Attending Provider: ELIO ROBERTS MD Primary Care Provider: JUVE CHRISTIANSEN DNP, ZONE MANAGER MURALI GERMAN JATIN has been given the following list [...] day This is a CHANGE [facility] [address] HYDROcodone-acetaminophen (Vicodin 5 mg-300 mg oral tablet) 1 Tablet(s), Oral, every 4 hours as needed for Pain No more than 4,000mg acetaminophen/24hrs New Routed to [email or web address] multivitamin (Multiple Vitamins oral tablet) 1 Tablet(s), [...] vasospasm Mrs. Novak was transferred from the [place] emergency department where he initial troponin was 0.06, and a CK-MB was 5.9. [facility]. She was transferred to [facility] for evaluation of her elevation in her cardiac serial biomarkers. Due to her associated symptoms of headache and shortness of breath with the chest pain, a head CT was obtained upon arrival to [facility] and did not reveal any abnormalities. [...] appointment detail needed. Your Goals/Additional instructions: Source: [facility] POWERCHART Document Id: [id number] Miscellaneous - Elio Roberts M.D. - 09/06/2013 5:15 PM CDT Ambulatory Discharge Medication List [address] [id number] Visit Information Name: GERMAN NOVAK [facility] Number: [id number] Visit Date: 09/06/2013 17:15:08 Attending Provider: ELIO ROBERTS MD Primary Care Provider: JUVE CHRISTIANSEN [facility] GERMAN NOVAK has been given the following [...] day This is a CHANGE Routed to [address] [address] HYDROcodone-acetaminophen (Vicodin 5 mg-300 mg oral tablet) 1 Tablet(s), Oral, every 4 hours as needed for Pain No more than 4,000mg acetaminophen/24hrs New Routed to [facility] multivitamin (Multiple Vitamins oral tablet) 1 Tablet(s), [...] MD Signed On:06-SEP-2013 17:14:45 Additional Information: Source: [facility] POWERCHART Document Id: [id number] Miscellaneous - Robert Del Rio L.P.N. - 09/06/2013 3:24 PM CDT Adult Intercell Connector Placer Intake/History Adult Intercell Connector Placer Intake/History Entered On: 09/06/2013 15:27 CDT Performed [...] Information Given By : Patient Languages : Greek ROBERT DEL RIO - 09/06/2013 15:24 CDT [...] Last Use : 04/09/12 ROBERT DEL RIO 09/06/2013 15:24 CDT Caffeine Use Grid Caffeine Use : Current Type : Soft drinks Frequency : Daily Amount : 1 ROBERT DEL RIO - 09/06/2013 15:24 CDT Recreational Drug Use Grid Drug Use : None ROBERT DEL RIO - 09/06/2013 15:24 CDT Source: [facility] POWERCHART Document Id: [id number] CDT!44 documented in this encounter Plan of [...]
--- OUTSIDE RECORDS SUMMARY | 2022-01-22 10:15 | XMS_ITS | Encounter Summary ---
:1970 Author Organization [facility] Address [address] [place] [address] Care Team Providers Name Role Phone Elsewhere, Pcp Primary Care Provider Unavailable Encounter Details Date Type Department Care Team Description 06/08/2019 Nurse Triage Department of Rosario Arceo, Medicine, [facility], C.N.P., A.P.N.P. in [place], [place] [address] [place] [address] [place] [address] [phone] Social History Tobacco Use Types Packs/Day Years [...] More than 4 times per year 06/22/2019 scientology services? Do you belong to any clubs [...] and water aren't available, use a hand proof technician helper that contains at least 60% alcohol Avoid [...] documented as of this encounter Care Teams Manager Category Relationship Specialty Start Date End Date Elsewhere, Pcp PCP - General Internal Medicine 06/08/19 06/15/21 documented as of this encounter
--- OUTSIDE RECORDS SUMMARY | 2022-01-22 10:15 | XMS_ITS | Encounter Summary ---
:1970 Author Organization [facility] Address [address] [place] [address] Care Team Providers Name Role Phone Unavailable Primary Care Provider Unavailable Encounter Details Date Type Department Care Team Description 12/01/2014 Hospital Encounter HX [facility] Shayla Baez, MANAGER COMMUNITY DEVELOPMENT, C.N.P. [address], [place] [address] (Wo rk) Social History [...] in this encounter Procedure Notes Lea Stratton, LSonjaP.N. - 12/01/2014 4:26 PM CDT PPD Reading PPD Reading Entered On: 12/01/2014 16:27 CDT Performed On: 12/01/2014 16:26 CDT by LEA STRATTON LPN PPD Reading MM of Induration : 0 mm PPD Interpretation : Negative PPD Placed On : Right inner forearm PPD Date/Time Administered : 11/29/2014 16:00 CDT LEA STRATTON LPN - 12/01/2014 16:26 CDT Source: [facility] POWERCHART Document Id: [id number] CDT!6 documented in this encounter Plan of [...]
--- OUTSIDE RECORDS SUMMARY | 2022-01-22 10:15 | XMS_ITS | Encounter Summary ---
:1970 Author Organization [facility] Address [address] [place] [address] Care Team Providers Name Role Phone Unavailable Primary Care Provider Unavailable Reason for Visit Physical Therapy (Routine) - Canceled Specialty Diagnoses / Procedures Referred By Contact Refer red To Contact Diagnoses Aftercare Surgery Injury Ganesh Cortes M.D. [facility] Procedures PT Ongoing treatment [address] [place] [address] Referral ID Status Reason Start Date Expiration Date Visits V isits Requested Authorized [id number] Canceled 12/21/2018 03/09/2019 99 99 Encounter Details Date Type Department Care Team Description 12/29/2018 Clinical Support Department of Ganesh Cortes M.D. [address] [place] [address] [address] Aftercare Surgery Rehabilitation Alyce Salguero, P.T. [address] [place] [phone] Injury Services in [address] [phone] Social History Tobacco Use Types Packs/Day Years [...] 06/22/2019 organizations such as christian groups, unions, fraLinkCycle or athletic groups, or school groups? How [...] Salguero P.T. Department of Rehabilitation Services in [address] [address] Dept: [phone] documented in this encounter Plan of Treatment Not on filedocumented as of this encounter Visit Diagnoses Diagnosis Aftercare Surgery Injury documented in this encounter Additional Health Concerns Assessment Noted Time PHQ-9 Depression Total Score: 3 09/15/2015 2:08 PM CDT documented as of this encounter
--- OUTSIDE RECORDS SUMMARY | 2022-01-22 10:15 | XMS_ITS | Encounter Summary ---
:1970 Author Organization [facility] Address [address] [place] [address] Care Team Providers Name Role Phone Unavailable Primary Care Provider Unavailable Encounter Details Date Type Department Care Team Description 03/08/2014 Hospital Encounter HX [facility] Juve Christiansen, ALVERTO, C.N.P., D. N.P. [address] [place] [address] (Wo rk) Social History Tobacco [...] Comments Blood Pressure 136/74 03/08/2014 7:51 AM FRUIT PEELER Pulse 60 03/08/2014 7:51 AM FRUIT PEELER Temperature - - Respiratory Rate 16 03/08/2014 7:51 AM FRUIT PEELER Oxygen Saturation - - Inhaled Oxygen Concentration - - Weight 87.6 kg (193 lb 2 oz) 03/08/2014 7:51 AM FRUIT PEELER Height 173 cm (5' 8.11) 03/08/2014 7:51 AM FRUIT PEELER Body Mass Index 29.27 03/08/2014 7:51 AM FRUIT PEELER documented in this encounter Progress Notes Juve Christiansen D.N.P., C.N.P. - 03/08/2014 7:32 AM CST [id number] CHIEF COMPLAINT/REASON FOR VISIT Excessive sweating. HISTORY [...] alert/oriented x3. HEAD: Normocephalic/atraumatic. PUPILS: GONZALO. OROPHARYNX: [place] and moist. TYMPANIC MEMBRANES: Bilateral TMs are [...] DNP, FNP On: 03/08/2014 10:15 AM Source: [facility] MHSDOLBEYNONRADSYS Document Id: [id number] T PEELER documented in this encounter Miscellaneous Notes Miscellaneous - Juve Christiansen D.N.P., C.N.P. - 03/08/2014 8:37 AM FRUIT PEELER Ambulatory Patient Summary [address] [id number] Visit Information Name: YUSEFGERMAN KING JATIN [facility] Number: [id number] Current Date: 03/08/2014 08:37:59 Physicians [...] the Following Medications: Medication list as of 12-30-14 08:37 Attention: If you have any medications [...] vasospasm Mrs. Novak was transferred from the [place] emergency department where he initial troponin was 0.06, and a CK-MB was 5.9. [facility]. [facility] to [facility] for evaluation of her elevation in her cardiac serial biomarkers. Due to her associated symptoms of headache and shortness of breath with the chest pain, a head CT was obtained upon arrival to [facility] and did not reveal any abnormalities. 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 - 03/08/2014 8:37 AM FRUIT PEELER Ambulatory Discharge Medication List [address] [id number] Visit Information Name: CAROL NOVAKNDFloyd STEINER [facility] Number: [id number] Visit Date: 03/08/2014 08:37:58 Attending [...] FNP Signed On:08-MAR-2014 08:37:28 Additional Information: Source: [facility] POWERCHART Document Id: [id number] T PEELER Miscellaneous - Conversion, Historical Provider Ser - 03/08/2014 7:51 AM FRUIT PEELER Adult Getter Filler Intake/History Adult Getter Filler Intake/History Entered On: 03/08/2014 7:56 FRUIT PEELER Performed On: 03/08/2014 7:51 FRUIT PEELER by ARLETTE MADSEN LPN Intake Chief Complaint [...] kg/m2 ARLETTE MADSEN LPN - 03/08/2014 7:51 FRUIT PEELER General Info Information Given By : Patient Languages : Malian Is Patient Female and 13-50 no hysterectomy : No ARLETTE MADSEN VIDEO CONTROL ENGINEER - 03/08/2014 7:51 FRUIT PEELER Subjective Pain Symptoms : No ARLETTE MADSEN VIDEO CONTROL ENGINEER - 03/08/2014 7:51 FRUIT PEELER Dependent Habits Tobacco Use/Currently Using : No Exposure to Tobacco Smoke : Care provider denies smoking in home Smoking Status : Former smoker ARLETTE MADSEN [facility] - 03/08/2014 7:51 FRUIT PEELER Tobacco Use Grid Type : Cigarettes Last Use : 04/09/12 ARLETTE MADSEN [facility] - 03/08/2014 7:51 FRUIT PEELER Caffeine Use Grid Caffeine Use : Current Type : Soft drinks Frequency : Daily Amount : 1 ARLETTE MADSEN [facility] - 03/08/2014 7:51 FRUIT PEELER Recreational Drug Use Grid Drug Use : None ARLETTE MADSEN [facility] - 03/08/2014 7:51 FRUIT PEELER ID Screen Drug Resistant Organism : No Travel Within Last 21 Days : ARLETTE Carranza [facility] - 03/08/2014 7:51 FRUIT PEELER Source: [employer] Document Id: [id number] FRUIT PEELER!46 documented in this encounter Plan of Treatment Not on filedocumented as of this encounter Procedures Procedure Name Priority Date/Time Associated Diagnosis Comme nts THYROID-STIMULATING Routine 03/08/2014 8:25 AM Re sults for this HORMONE-SENSITIVE FRUIT PEELER procedure are in (S-TSH) the results section. T4 (THYROXINE), Routine 03/08/2014 8:25 AM Result s for this FREE, S FRUIT PEELER procedure are i n the results section. CORTISOL, S Routine 03/08/2014 8:25 AM Results f or this FRUIT PEELER procedure are i n the results section. documented in this encounter Results T4 (Thyroxine), Free (03/08/2014 8:25 AM FRUIT PEELER) P athologist Signature T4 (Thyroxine), 1.2 NGDL POWERCHART Free S Comment: REFERENCE VALUE------ 0.8-1.8 Elevated values are seen in patients on thyroxine therapy. Test Performed by: [address] [address] Link Assembler: Leanne Jorge Specimen (Source) Anatomical Collection Method Collection Time Re ceived Time Location / / Volume Laterality Blood 03/08/2014 8:25 AM FRUIT PEELER Juve Christiansen APRN, C.N.P., D.N.P. LAB BLOOD ADD- ON Performing Organization Address City/[facility] Code Phon e Number POWERCHART Thyroid-Stimulating Hormone-Sensitive (s-TSH) (03/08/2014 8:25 AM FRUIT PEELER) P athologist Signature TSH 2.63 0.27 - 4.20 POWERCHART (Thyrotropin) MIUL Specimen (Source) Anatomical Collection Method Collection Time Re ceived Time Location / / Volume Laterality Blood 03/08/2014 8:25 AM FRUIT PEELER Juve Christiansen APRN, C.N.P., D.N.P. LAB BLOOD ADD- ON Performing Organization Address [facility] Phon e Number POWERCHART Cortisol (03/08/2014 8:25 AM FRUIT PEELER) P athologist Signature Cortisol AM 16 7 - 25 POWERCHART Result MCGDL Comment: Test Performed by: [place] [id number] Link Assembler: Leanne Jorge Specimen (Source) Anatomical Collection Method Collection Time Re ceived Time Location / / Volume Laterality Blood 03/08/2014 8:25 AM FRUIT PEELER Juve Christiansen APRN, C.N.P., D.N.P. LAB BLOOD ADD- ON Performing Organization Address City/[facility] Phon e Number POWERCHART documented in this encounter Visit Diagnoses Not on filedocumented in this encounter Additional Health Concerns Assessment Noted Time PHQ-9 Depression Total Score: 10 03/11/2013 2:22 PM CS T documented as of this encounter
--- OUTSIDE RECORDS SUMMARY | 2022-01-22 10:15 | XMS_ITS | Encounter Summary ---
:1970 Author Organization [facility] Address [address] [place] [address] Care Team Providers Name Role Phone Unavailable Primary Care Provider Unavailable Encounter Details Date Type Department Care Team Description 03/15/[address] [facility] Karen Fernandez, ALVERTO, C.N.P., D. N.P. [address], [place] [phone] (Wo rk) Social History [...] or relatives? How often do you attend orthodox or More than 4 times per year 06/22/2019 adventism services? Do you belong to any clubs or No 06/22/2019 organizations such as orthodox groups, unions, fraternal or athletic groups, [...] 173 cm (5' 8.11) 03/15/2014 8:21 AM BILINGUAL CUSTOMER SERVICE SPECIALIST Body Mass Index - - documented in this encounter Plan of Treatment Not on filedocumented as of this encounter Visit Diagnoses Not on filedocumented in this encounter Additional Health Concerns Assessment Noted Time PHQ-9 Depression Total Score: 10 03/11/2013 2:22 PM CS T documented as of this encounter
--- OUTSIDE RECORDS SUMMARY | 2022-01-22 10:15 | XMS_ITS | Encounter Summary ---
:1970 Author Organization [facility] Address [address] [place] [address] Care Team Providers Name Role Phone Unavailable Primary Care Provider Unavailable Encounter Details Date Type Department Care Team Description 03/15/2014 Hospital Encounter HX [facility] Juve Christiansen, ALVERTO, C.N.P., D. N.P. [address] [place] [address] (Wo rk) Social History Tobacco [...] Comments Blood Pressure 116/65 03/15/2014 7:32 AM LOADER DEMOLDER Pulse 66 03/15/2014 7:32 AM LOADER DEMOLDER Temperature - - Respiratory Rate 16 03/15/2014 7:32 AM LOADER DEMOLDER Oxygen Saturation - - Inhaled Oxygen Concentration - - Weight 88.2 kg (194 lb 7.1 oz) 03/15/2014 7:32 AM LOADER DEMOLDER Height 173 cm (5' 8.11) 03/15/2014 7:32 AM LOADER DEMOLDER Body Mass Index 29.47 03/15/2014 7:32 AM LOADER DEMOLDER documented in this encounter Progress Notes Juve Christiansen D.N.P., C.N.P. - 03/15/2014 7:19 AM CST [id number] CHIEF COMPLAINT/REASON FOR VISIT Followup hyperhidrosis. HISTORY [...] also information regarding the medication from the [facility] Education site were discussed. Medication check with [...] plan. Patient/Child/Caregiver expressed understanding of the content. Zeke PhanP./ManoloN.P/shimon Electronically Signed By: JUVE CHRISTIANSEN DNP, FNP On: 03/15/2014 12:22 PM Source: [facility] MHSDOLBEYNONRADSYS Document Id: [id number] ER DEMOLDER documented in this encounter Miscellaneous Notes Miscellaneous - Juve Christiansen D.N.P., C.N.P. - 03/15/2014 8:10 AM LOADER DEMOLDER Ambulatory Patient Summary [address] [id number] Visit Information Name: MURALI GERMAN SUE [facility] Number: [id number] Current Date: 03/15/2014 08:10:26 Physicians [...] sweating x 90 day(s) New Routed to [facility] [address] [address] simvastatin (simvastatin 20 mg oral [...] emergency. Electronically Signed By: JUVE CHRISTIANSEN DNP, FRANCOIS Signed On:15-MAR-2014 08:08:17 Your Allergies & Intolerances [...] vasospasm Mrs. Novak was transferred from the [place] emergency department where he initial troponin was 0.06, and a CK-MB was 5.9. [facility] She was transferred to [facility] for evaluation of her elevation in her cardiac serial biomarkers. Due to her associated symptoms of headache and shortness of breath with the chest pain, a head CT was obtained upon arrival to [facility] and did not reveal any abnormalities. She [...] of increased severe stressors at home and with[employer] business, we have set up a psychology [...] Appointments Date Time Location Provider 03/15/2014 08:30 [facility] Room 1 Attention: Contact your local Clinic if further appointment detail needed. Your Goals/Additional instructions: Future Appointment: in June for routine exam and echo Lab: _ Radiology: _ Need Prior Auth: _ NO Prior Auth: _ Consult: _ Release of MR_ PHI_ Source: [facility] POWERCHART Document Id: [id number] ER DEMOLDER Miscellaneous - Juve Christiansen, Cynthia.N.P., C.N.P. - 03/15/2014 8:10 AM LOADER DEMOLDER Ambulatory Discharge Medication List [address] [id number] Visit Information Name: CAROL NOVAKNDFloyd STEINER [facility] Number: [id number] Visit Date: 03/15/2014 08:10:25 Attending [...] sweating x 90 day(s) New Routed to [address] [address] simvastatin (simvastatin 20 mg oral tablet) 1 [...] FNP Signed On:15-MAR-2014 08:08:17 Additional Information: Source: [facility] POWERCHART Document Id: [id number] ER DEMOLDER Miscellaneous - Damaris Medrano L.P.N. - 03/15/2014 7:40 AM CST Meaningful Use Influenza Exclusion Meaningful Use Influenza Exclusion Entered On: 03/15/2014 7:40 LOADER DEMOLDER Performed On: 03/15/2014 7:40 LOADER DEMOLDER by DAMARIS MEDRANO LPN Influenza Vaccine Exclusion Influenza Vaccine Exclusion : Patient declined DAMARIS MEDRANO LPN - 03/15/2014 7:40 LOADER DEMOLDER Source: [facility] POWERCHART Document Id: [id number] LOADER DEMOLDER!3 ER DEMOLDER Miscellaneous - Damaris Medrano L.P.N. - 03/15/2014 7:32 AM CST Adult Rail Car Repairer Intake/History Adult Rail Car Repairer Intake/History Entered On: 03/15/2014 7:39 LOADER DEMOLDER Performed On: 03/15/2014 7:32 LOADER DEMOLDER by DAMARIS MEDRANO LPN Intake Chief Complaint [...] kg/m2 DAMARIS MEDRANO LPN - 03/15/2014 7:32 LOADER DEMOLDER General Info Information Given By : Patient Languages : Latvian Is Patient Female and 13-50 no hysterectomy : No DAMARIS MEDRANO LPN - 03/15/2014 7:32 LOADER DEMOLDER Subjective Pain Symptoms : No DAMARIS MEDRANO LPN - 03/15/2014 7:32 LOADER DEMOLDER Dependent Habits Tobacco Use/Currently Using : No Tobacco Use/Last 12 months : No Tobacco Use/Advised to Quit : No Exposure to Tobacco Smoke : Care provider denies smoking in home Smoking Status : Former smoker DAMARIS MEDRANO LPN - 03/15/2014 7:32 LOADER DEMOLDER Tobacco Use Grid Type : Cigarettes Last Use : 04/09/12 DAMARIS MEDRANO LPN - 03/15/2014 7:32 LOADER DEMOLDER Alcohol Use : Yes DAMARIS MEDRANO LPN - 03/15/2014 7:32 LOADER DEMOLDER Caffeine Use Grid Caffeine Use : Current Type : Soft drinks Frequency : Daily Amount : 1 DAMARIS MEDRANO LPN - 03/15/2014 7:32 LOADER DEMOLDER Recreational Drug Use Grid Drug Use : None DAMARIS MEDRANO LPN - 03/15/2014 7:32 LOADER DEMOLDER ID Screen Drug Resistant Organism : No Travel Within Last 21 Days : No DAMARIS MEDRANO LPN - 03/15/2014 7:32 LOADER DEMOLDER Source: [facility] POWERCHART Document Id: [id number] LOADER DEMOLDER!47 ER DEMOLDER documented in this encounter Plan of Treatment Not on filedocumented as of this encounter Visit Diagnoses Not on filedocumented in this encounter Additional Health Concerns Assessment Noted Time PHQ-9 Depression Total Score: 10 03/11/2013 2:22 PM CS T documented as of this encounter
--- OUTSIDE RECORDS SUMMARY | 2022-01-22 10:15 | XMS_ITS | Encounter Summary ---
:1970 Author Organization [facility] Address [address] [place] [address] Care Team Providers Name Role Phone Elsewhere, Pcp Primary Care Provider Unavailable Reason for Referral Outpatient (Routine) - Closed Specialty Diagnoses / Procedures Referred By Contact Refer red To Contact Diagnoses Palpitations Mahamed Campos M.D. [facility] Procedures ECG Heart Rhythm Monitor (Holter) [address] [place] [address] Referral ID Status Reason Start Date Expiration Date Visits Requ ested Visits Authorized [id number] Closed 06/09/2019 06/08/2020 1 1 Encounter Details Date Type Department Care Team Description 06/09/2019 Orders Only Department of Mahamed Campos Palpitation s (Primary Cardiovascular Diseases Janene Up Dx) in [facility] [address] [facility] [address] [place] [phone] Social History Tobacco Use Types Packs/Day Years [...] 06/22/2019 organizations such as jewish groups, unions, [employer] or athletic groups, or school groups? How [...] encounter Results HOLTER MONITOR - IN CLINIC WEATHERIZATION ADMINISTRATOR (06/10/2019 3:09 PM CDT) [facility] gist Method Time Signature VE Max Per [id number] HOLTER Hour Time SENTINEL Min Heart Rate [id number] HOLTER Time SENTINEL VE Max Per 7 [...] Recording Date HOLTER SENTINEL Max Heart Rate [id number] HOLTER Time SENTINEL SVE Max Per 9 count HOLTER Hour SENTINEL SVE Max Per [id number] HOLTER Hour Time SENTINEL VE Total Beats [...] documented as of this encounter Care Teams Guitar Maker Hand Relationship Specialty Start Date End Date Elsewhere, Pcp PCP - General Internal Medicine 06/08/19 06/15/21 documented as of this encounter
--- OUTSIDE RECORDS SUMMARY | 2022-01-22 10:15 | XMS_ITS | Encounter Summary ---
:1970 Author Organization [facility] Address [address] [place] [address] Care Team Providers Name Role Phone Elsewhere, Pcp Primary Care Provider Unavailable Encounter Details Date Type Department Care Team Description 06/09/2019 Documentation Department of Cardiovascular Campos, Duncan Up, Diseases in Santana Kiran M.D. [place] [address] [facility] [address] [place] [phone] (Wo rk) Social History Tobacco Use Types [...] documented as of this encounter Care Teams Utilities Estimator And Drafter Relationship Specialty Start Date End Date Elsewhere, Pcp PCP - General Internal Medicine 06/08/19 06/15/21 documented as of this encounter
--- OUTSIDE RECORDS SUMMARY | 2022-01-22 10:15 | XMS_ITS | Encounter Summary ---
:1970 Author Organization [facility] Address [address] [place] [address] Care Team Providers Name Role Phone Elsewhere, Pcp Primary Care Provider Unavailable Reason for Visit Outpatient (Routine) - Closed Specialty Diagnoses / Procedures Referred By Contact Refer red To Contact Diagnoses Palpitations Mahamed Campos M.D. [facility] Procedures ECG Heart Rhythm Monitor (Holter) [address] [place] [address] Referral ID Status Reason Start Date Expiration Date Visits Requ ested Visits Authorized [id number] Closed 06/09/2019 06/08/2020 1 1 Encounter Details Date Type Department Care Team Description 06/10/2019 Ancillary Procedure Department of Mahamed Campos Palp itations Cardiovascular Diseases Janene Up in [facility] [address] [facility] [address] [place] [phone] [phone] Social History Tobacco Use Types Packs/Day Years [...] or relatives? How often do you attend gnosticist or More than 4 times per year 06/22/2019 shinto services? Do you belong to any clubs or No 06/22/2019 organizations such as gnosticist groups, unions, fraternal or athletic groups, or [...] as of this encounter Progress Notes Yash Felder L.P.N. - 06/10/2019 3:00 PM CDT Patient [...] PM Palpitations Re sults for this CLINIC COMMUNITY RECREATION PROGRAMMER CDT procedure are in the results section. documented in this encounter Results HOLTER MONITOR - IN CLINIC COMMUNITY RECREATION PROGRAMMER (06/10/2019 3:09 PM CDT) [facility] gist Method Time Signature VE Max Per [id number] HOLTER Hour Time SENTINEL Min Heart Rate 03647831023737 HOLTER Time SENTINEL VE Max Per 7 [...] Recording Date HOLTER SENTINEL Max Heart Rate 24686579071113 HOLTER Time SENTINEL SVE Max Per 9 count HOLTER Hour SENTINEL SVE Max Per 12297456901933 HOLTER Hour Time SENTINEL VE Total Beats [...] documented as of this encounter Care Teams Napper Runner Relationship Specialty Start Date End Date Elsewhere, Pcp PCP - General Internal Medicine 06/08/19 06/15/21 documented as of this encounter
--- OUTSIDE RECORDS SUMMARY | 2022-01-22 10:15 | XMS_ITS | Encounter Summary ---
:1970 Author Organization [facility] Address [address] [place] [address] Care Team Providers Name Role Phone Unavailable Primary Care Provider Unavailable Reason for Visit Physical Therapy (Routine) - Canceled Specialty Diagnoses / Procedures Referred By Contact Refer red To Contact Diagnoses Aftercare Surgery Injury Ganesh Cortes M.D. [facility] Procedures PT Ongoing treatment [address] [place] [address] Referral ID Status Reason Start Date Expiration Date Visits V isits Requested Authorized [id number] Canceled 12/21/2018 03/09/2019 99 99 Encounter Details Date Type Department Care Team Description 01/15/2019 Clinical Support Department of Ganesh Cortes M.D. [address] [place] [address] Aftercare Surgery Rehabilitation Alyce Salguero, P.T. [address] [place] [phone] Injury Services in [address] [phone] Social History Tobacco Use Types Packs/Day Years [...] 06/22/2019 organizations such as sabianism groups, unions, fraOmada or athletic groups, or school groups? How [...] arm rows in single arm extension with Zqwlj-Knoi-rchbog, standing hipabduction isometrics against the wall. We [...] Salguero P.T. Department of Rehabilitation Services in [address] [address] Dept: [phone] AVER APPRENTICE DECORATIVE documented in this encounter Plan of Treatment Not on filedocumented as of this encounter Visit Diagnoses Diagnosis Aftercare Surgery Injury documented in this encounter Additional Health Concerns Assessment Noted Time PHQ-9 Depression Total Score: 3 09/15/2015 2:08 PM CDT documented as of this encounter
--- OUTSIDE RECORDS SUMMARY | 2022-01-22 10:16 | XMS_ITS | Encounter Summary ---
:1970 Author Organization [facility] Address [address] [place] [address] Care Team Providers Name Role Phone Unavailable Primary Care Provider Unavailable Encounter Details Date Type Department Care Team Description 04/01/2007 Hospital Encounter HX [facility], INPT/OBSRV [place] [address] [place] [phone] (Wo rk) Social [...] More than 4 times per year 06/22/2019 gnosticist services? Do you belong to any clubs [...]
--- OUTSIDE RECORDS SUMMARY | 2022-01-22 10:16 | XMS_ITS | Encounter Summary ---
:1970 Author Organization [facility] Address [address] [place] [address] Care Team Providers Name Role Phone Unavailable Primary Care Provider Unavailable Encounter Details Date Type Department Care Team Description 08/06/2009 Hospital Encounter HX [facility] INPT/OBSRV Brenda Garvey M.D. [address] [place], [place] [address] (Wo rk) Social History Tobacco [...]
--- OUTSIDE RECORDS SUMMARY | 2022-01-22 10:16 | XMS_ITS | Encounter Summary ---
:1970 Author Organization [facility] Address [address] [place] [address] Care Team Providers Name Role Phone Unavailable Primary Care Provider Unavailable Encounter Details Date Type Department Care Team Description 08/29/2010 Hospital Encounter HX [facility] Linda Martinez M.D. [address] [place] [phone] (Wo rk) Social [...] More than 4 times per year 06/22/2019 confucianism services? Do you belong to any clubs [...] encounter Miscellaneous Notes Miscellaneous - Cj Miner L.PSonjaNSonja - 08/29/2010 10:39 AM CDT Ambulatory Vitals [...] MINER LPN - 08/29/2010 10:39 CDT Source: [facility] Arrayit Document Id: [id number]!8 documented in this encounter Plan of Treatment Not on filedocumented as of this encounter Visit Diagnoses Not on filedocumented in this encounter
--- OUTSIDE RECORDS SUMMARY | 2022-01-22 10:16 | XMS_ITS | Encounter Summary ---
:1970 Author Organization [facility] Address [address] [place] [address] Care Team Providers Name Role Phone Unavailable Primary Care Provider Unavailable Encounter Details Date Type Department Care Team Description 04/10/2012 Hospital Encounter HX [facility] ED Chris Cardenas M.D. [id number] [place] [address] ERNESTO Ramirez [phone] (Wo rk) Social History Tobacco Use Types [...] More than 4 times per year 06/22/2019 zoroastrian services? Do you belong to any clubs [...] Comments Blood Pressure 127/86 04/10/2012 1:21 PM AUTOMOTIVE UPHOLSTERER Pulse - - Temperature - - Respiratory Rate 20 04/10/2012 1:21 PM AUTOMOTIVE UPHOLSTERER Oxygen Saturation - - Inhaled Oxygen Concentration - - Weight 92.8 kg (204 lb 9.4 oz) 04/10/2012 10:00 AM AUTOMOTIVE UPHOLSTERER Height 173 cm (5' 8.11) 04/10/2012 10:00 AM AUTOMOTIVE UPHOLSTERER Body Mass Index 31.01 04/10/2012 10:00 AM AUTOMOTIVE UPHOLSTERER documented in this encounter Discharge Summaries Valarie Centeno R.N. - 04/10/2012 1:34 PM CST ED Discharge Instructions [address] [address] Name: YUSEFFERNANDOGERMAN Date of : 1970 12:00 AM Visit Date: 04/10/2012 9:53 AM [facility] Number: [id number] Address: [address] [place] [phone] Primary Care Provider: LAVELL BUCHANAN RN, FITNESS CENTRE MANAGER IMPORTANT: [facility] in [place] would like to thank you for allowing us to assist you with your healthcare needs. The following includes patient education materials and informationregarding your injury/illness. Chief Complaint: Chest pain; HEART Follow-Up Instructions: With: Address: When: LAVELL BUCHANAN [address] [place] [id number] Business (1) Within As Needed Comments: Patient Education Materials: [id number] CHEST PAIN, NONCARDIAC Based on your visit [...] pain or redness in one leg ?? [phone] [employer], [address] [place] [address], [place] [address]. All rights reserved. This information is not [...] a ride home with a responsible democrat. IMURALI WENDY SUE , or responsible democrat have received this information and my questions have been answered. I have discussed any challenges I see with this plan with the nurse or physician. Patient Signature or Responsible Libertarian/Relationship Date Time Provider Signature Date Time Medication [...] a ride home with a responsible democrat. MURALI Romo WENDY SUE , or responsible democrat have received this information and my questions have been answered. I have discussed any challenges I see with this plan with the nurse or physician. Patient Signature or Responsible Libertarian/Relationship Date Time Provider Signature Date Time This document has images extracted. Please consider using [employer] for all your patient education needs. Source: [facility] POWERCHART Document Id: [id number] MOTIVE UPHOLSTERER Valarie Centeno R.N. - 04/10/2012 1:34 PM CST ED Depart Summary [facility] Emergency Department Clinical Discharge Summary PERSON INFORMATION Name GERMAN NOVAK Age 41 Years 1970 12:00 AM Sex Female Language Slovenian PCP LAVELL BUCHANAN RN, FITNESS CENTRE MANAGER Marital Status Visit Id Visit Reason Chest pain; HEART Specialty Enc Type Emergency Med Service Emergency Medicine Referred by Track Group [facility] ED Discharge 04/10/2012 1:32 PM Tracking Id [id number] Checkout 04/10/2012 1:32 PM Checkin 04/10/2012 9:53 AM Acuity 2 -Emergent Dispo Type * Discharged to Home or Self Care Arrival 04/10/2012 9:53 AM Reg Status Complete LOS 000 03:39 Address: [address] [place] [phone] Comment: PROVIDER INFORMATION Provider Role Provider Contact Time DIAGNOSIS Precordial chest pain 786.51 Comment: PATIENT EDUCATION INFORMATION Instructions: CHEST PAIN, NonCardiac Follow up: With: Address: When: LAVELL BUCHANAN [address] [place] [address] [phone] Business (0) Within As Needed Comments: Source: [facility] [employer] Document Id: [id number] MOTIVE UPHOLSTERER documented in this encounter Nursing Notes Valarie Centeno R.N. - 04/10/2012 1:20 PM CST ED Pain Assessment ED Pain Assessment Entered On: 04/10/2012 13:20 AUTOMOTIVE UPHOLSTERER Performed On: 04/10/2012 13:20 AUTOMOTIVE UPHOLSTERER by VALARIE CENTENO RN Pain Assessment Pain Symptoms : No VALARIE CENTENO RN - 04/10/2012 13:20 AUTOMOTIVE UPHOLSTERER Source: [facility] [employer] Document Id: [id number] MOTIVE UPHOLSTERER Valarie Centeno R.N. - 04/10/2012 10:40 AM CST PRN Response PRN Response Entered On: 04/10/2012 10:48 AUTOMOTIVE UPHOLSTERER Performed On: 04/10/2012 10:40 AUTOMOTIVE UPHOLSTERER by VALARIE CENTENO RN PRN Medication Effectiveness Evaluation PRN Medication Effective : Yes Post Medication Pain Assessment : 0 VALARIE CENTENO RN - 04/10/2012 10:48 AUTOMOTIVE UPHOLSTERER Source: [facility] [employer]CHART Document Id: [id number] MOTIVE UPHOLSTERER William Arredondo R.N. - 04/10/2012 10:20 AM CST ED Primary Assessment ED Primary Assessment Entered On: 04/10/2012 10:30 AUTOMOTIVE UPHOLSTERER Performed On: 04/10/2012 10:20 AUTOMOTIVE UPHOLSTERER by WILILAM ARREDONDO RN Reason For Visit Problems(Active) Common migraine Name of Problem: Common migraine ; Onset Date: Unknown ; Recorder: NELLIE JOHNSON RN;Confirmation: Confirmed ; Classification: Nursing ; Code: 282362 ; Contributor System: [employer] ; Last Updated: 06/19/2010 11:18 CDT ; Life Cycle Status: Active ; Vocabulary: SNOMED CT Hyperlipidemia Name of Problem: Hyperlipidemia ; Recorder: MAXIME VARGHESE RN; Confirmation: Confirmed ; Classification: Medical ; Code: 795876 ; Contributor System: [employer] ; Last Updated: 02/14/2012 13:41 AUTOMOTIVE UPHOLSTERER ; Life Cycle Date: 02/11/2012 ; Life [...] PNED ; Probability: 0 ; Diagnosis Code: [id number] Triage Chief Complaint Description : see triage Information Given By : Patient, Significant other Accompanied By : Significant other Mode of Arrival ED : Private vehicle Track : Medical Languages : Slovenian Patient Informed of Triage Location : Emergency department Vital Signs Assessed : Yes GCS Assessed : Yes WILLIAM ARREDONDO RN - 04/10/2012 10:20 AUTOMOTIVE UPHOLSTERER Vital Signs Temperature Core : 37.6C(Converted to: 99.7DegF) Apical Heart Rate : 78/min Respiratory Rate : 20/min Systolic Blood Pressure : 132mmHg Diastolic Blood Pressure : 93mmHg (>HHI) NIBP Mean : 106mmHg BP Location : Left upper extremity SpO2 : 99% Oxygen Saturation Monitoring Frequency : Continuous Oxygen Flow Rate : 2L/min Oxygen Therapy : Nasal Cannula WILLIAM ARREDONDO RN - 04/10/2012 10:20 AUTOMOTIVE UPHOLSTERER [place] Coma Eye Opening Response Maame : Spontaneously Best Verbal Response [place] : Oriented Best Motor Response Maame : Obeys simple commands [place] Coma Score : 15 WILLIAM ARREDONDO RN - 04/10/2012 10:20 AUTOMOTIVE UPHOLSTERER Pain Assessment Pain Symptoms : No WILLIAM ARREDONDO RN - 04/10/2012 10:20 AUTOMOTIVE UPHOLSTERER ED Physician Notification Time ED Physician Notification Time : 04/10/2012 10:00 AUTOMOTIVE UPHOLSTERER WILLIAM ARREDONDO RN - 04/10/2012 10:20 AUTOMOTIVE UPHOLSTERER SAEED SAEED Level 1 : No SAEED Level 2 : No SAEED Level 3 : Many Vital Signs SAEED : Danger zone (HR > 100, RR > 20, SaO2 < 92%) WILLIAM ARREDONDO RN - 04/10/2012 10:20 AUTOMOTIVE UPHOLSTERER DCP GENERIC CODE Tracking Acuity : 2 -Emergent Tracking Group : [facility] ED WILLIAM ARREDONDO RN - 04/10/2012 10:20 AUTOMOTIVE UPHOLSTERER Allergy Latex Reaction : No WILLIAM ARREDONDO RN - 04/10/2012 10:20 AUTOMOTIVE UPHOLSTERER Allergies (Active) morphine Estimated Onset Date: Unspecified ; Created By: RAVEN DELUNA LPN; Reaction Status: Active ; Category: Drug ; Substance: morphine ; Type: Allergy ; Updated By: RAVEN DELUNA LPN; Reviewed Date: 04/10/2012 10:21 AUTOMOTIVE UPHOLSTERER narcotic analgesics Estimated Onset Date: Unspecified ; Reactions: itch ; Created By: NELLIE JOHNSON RN; Reaction Status: Active ; Category: Drug ; Substance: narcotic analgesics ; Type: Sensitivity ; Updated By: NELLIE JOHNSON RN; Reviewed Date: 04/10/2012 10:21 AUTOMOTIVE UPHOLSTERER Percocet 5/325 Estimated Onset Date: Unspecified ; Created By: RAVEN DELUNA LPN; Reaction Status:Active ; Category: Drug ; Substance: Percocet 5/325 ; Type: Allergy ; Updated By: RAVEN DELUNA LPN; Reviewed Date: 04/10/2012 10:21 AUTOMOTIVE UPHOLSTERER Toradol Estimated Onset Date: Unspecified ; Created By: RAVEN DELUNA LPN; Reaction Status: Active; Category: Drug ; Substance: Toradol ; Type: Allergy ; Updated By: RAVEN DELUNA LPN; Reviewed Date: 04/10/2012 10:21 AUTOMOTIVE UPHOLSTERER ID Screen Drug Resistant Organism : No WILLIAM ARREDONDO RN - 04/10/2012 10:20 AUTOMOTIVE UPHOLSTERER Immunizations Immunizations Current : Yes Last Tetanus : < 5 years Pneumovac : None Influenza : Last year WILLIAM ARREDONDO RN - 04/10/2012 10:20 AUTOMOTIVE UPHOLSTERER Respiratory Airway : Patent Respirations : Unlabored Respiratory Pattern : Regular Oxygen Start Time : 04/10/2012 10:15 AUTOMOTIVE UPHOLSTERER Oxygen Therapy : Nasal Cannula Oxygen Flow Rate : 2L/min Respiratory Detailed Assessment : Yes WILLIAM ARREDONDO RN - 04/10/2012 10:20 AUTOMOTIVE UPHOLSTERER Resp Detailed Respiratory Patient Stated Symptoms : Shortness of breath Distress : None Cough : None Sputum Amount : None WILLIAM ARREDONDO RN - 04/10/2012 10:20 AUTOMOTIVE UPHOLSTERER Breath Sounds Assessment Grid BUL : Clear BLL : Diminished WILLIAM ARREDONDO RN - 04/10/2012 10:20 AUTOMOTIVE UPHOLSTERER Cardiovascular Heart Rhythm : Regular Skin Color : Normal for ethnicity Skin Description : Dry Skin Temperature : Warm Cardiovascular Detailed Assessment : Yes Monitoring Lead : I Monitoring Lead Tomb Maker Helper : Initiated WILLIAM ARREDONDO RN - 04/10/2012 10:20 AUTOMOTIVE UPHOLSTERER CV Detailed CV Patient Stated Symptoms : Palpitations Nail Bed Color : [place] Capillary Refill : Less than 2 seconds Heart Sounds ICU : S1S2 Cardiac Rhythm : Sinus rhythm WILLIAM ARREDONDO RN - 04/10/2012 10:20 AUTOMOTIVE UPHOLSTERER Edema Detailed Grid Pretibial Edema Bilateral : None WILLIAM ARREDONDO RN - 04/10/2012 10:20 AUTOMOTIVE UPHOLSTERER Radial Pulse, Left : 2+ Normal Radial Pulse, Right : 2+ Normal WILLIAM ARREDONDO RN - 04/10/2012 10:20 AUTOMOTIVE UPHOLSTERER Neurological Last Well Time Known : Not applicable Level of Consciousness : Alert Orientation : Oriented x 3 Characteristics of Speech : Appropriate for age Neuro Patient Stated Symptoms : None Gait : Steady Swallowing Difficulty/Aspiration Risk : None WILLIAM ARREDONDO RN - 04/10/2012 10:20 AUTOMOTIVE UPHOLSTERER ED Psychosocial Affect/Behavior : Calm, Cooperative, Appropriate Domestic Abuse Concerns : None Emotional Support Available : Yes WILLIAM ARREDONDO RN - 04/10/2012 10:20 AUTOMOTIVE UPHOLSTERER Gastrointestinal Nutrition ED : Adequate WILLIAM ARREDONDO RN - 04/10/2012 10:20 AUTOMOTIVE UPHOLSTERER /OB Assessment Patient Stated Symptoms : None WILLIAM ARREDONDO RN - 04/10/2012 10:20 AUTOMOTIVE UPHOLSTERER Integumentary Integumentary Patient Stated Symptoms : None Skin Turgor : Elastic Skin Integrity : Intact Mucous Membrane Color : [place] Mucous Membrane Description : Moist Skin Color : Normal for ethnicity Skin Description : Dry Skin Temperature : Warm WILLIAM ARREDONDO RN - 04/10/2012 10:20 AUTOMOTIVE UPHOLSTERER Musculoskeletal Fall Prevention Education Provided : WILLIAM COSBY RN - 04/10/2012 10:20 AUTOMOTIVE UPHOLSTERER Social Habits Tobacco Use/Currently Using : Yes Exposure to Tobacco Smoke : Care provider denies smoking in home Smoking Status : Current some day smoker WILLIAM ARREDONDO RN - 04/10/2012 10:20 AUTOMOTIVE UPHOLSTERER Tobacco Use Grid Type : Cigarettes Last Use : Last PM WILLIAM ARREDONDO RN - 04/10/2012 10:20 AUTOMOTIVE UPHOLSTERER Alcohol Use Grid Alcohol Use : Yes Last Use : Last PM WILLIAM ARREDONDO RN - 04/10/2012 10:20 AUTOMOTIVE UPHOLSTERER Recreational Drug Use Grid Drug Use : None WILLIAM ARREDONDO RN - 04/10/2012 10:20 AUTOMOTIVE UPHOLSTERER Peripheral IV Peripheral IV Assess/Intervention Grid Peripheral IV #1 Peripheral IV #2 IV Activity : Start Start Number of Attempts : 1 1 Date of Insertion : 04/10/2012 AUTOMOTIVE UPHOLSTERER 04/10/2012 AUTOMOTIVE UPHOLSTERER IV Site : Antecubital Antecubital Laterality : [...] set WILLIAM ARREDONDO RN - 04/10/2012 10:20 AUTOMOTIVE UPHOLSTERER WILLIAM ARREDONDO RN - 04/10/2012 10:20 AUTOMOTIVE UPHOLSTERER Source: [facility] [employer] Document Id: [id number] MOTIVE UPHOLSTERER documented in this encounter ED Notes Valarie Centeno R.N. - 04/10/2012 1:33 PM CST ED Treatments and Procedures ED Treatments and Procedures Entered On: 04/10/2012 13:33 AUTOMOTIVE UPHOLSTERER Performed On: 04/10/2012 13:33 AUTOMOTIVE UPHOLSTERER by VALARIE CENTENO RN Oxygen Therapy Oxygen Start Time : 04/10/2012 10:15 AUTOMOTIVE UPHOLSTERER Oxygen Therapy : Room air Oxygen Stop Time : 04/10/2012 10:59 AUTOMOTIVE UPHOLSTERER Oxygen Flow Rate : 2L/min VALARIE CENTENO RN - 04/10/2012 13:33 AUTOMOTIVE UPHOLSTERER Peripheral IV Peripheral IV Assess/Intervention Grid Peripheral IV #1 Peripheral IV #2 IV Activity : Discontinue Discontinue Number of Attempts : 1 1 Date of Insertion : 04/10/2012 AUTOMOTIVE UPHOLSTERER 04/10/2012 AUTOMOTIVE UPHOLSTERER IV Site : Antecubital Antecubital Laterality : Left Right Catheter Size : 18 18 Catheter Type : Over the needle Over the needle VALARIE CENTENO RN - 04/10/2012 13:33 AUTOMOTIVE UPHOLSTERER VALARIE CENTENO RN - 04/10/2012 13:33 AUTOMOTIVE UPHOLSTERER Source: [facility] [employer] Document Id: [id number] MOTIVE UPHOLSTERER Valarie Centeno R.N. - 04/10/2012 1:31 PM CST ED Treatments and Procedures ED Treatments and Procedures Entered On: 04/10/2012 13:32 AUTOMOTIVE UPHOLSTERER Performed On: 04/10/2012 13:31 AUTOMOTIVE UPHOLSTERER by VALARIE CENTENO RN Cardiac Monitoring Monitoring Lead : I Monitoring Lead Tomb Maker Helper : Discontinued VALARIE CENTENO RN - 04/10/2012 13:31 AUTOMOTIVE UPHOLSTERER Oxygen Therapy Oxygen Start Time : 04/10/2012 10:15 AUTOMOTIVE UPHOLSTERER Oxygen Therapy : Room air Oxygen Flow Rate : 2L/min VALARIE CENTENO RN - 04/10/2012 13:31 AUTOMOTIVE UPHOLSTERER Peripheral IV Peripheral IV Assess/Intervention Grid Peripheral IV #1 Peripheral IV #2 IV Activity : Discontinue Discontinue Number of Attempts : 1 1 Date of Insertion : 04/10/2012 AUTOMOTIVE UPHOLSTERER 04/10/2012 AUTOMOTIVE UPHOLSTERER IV Site : Antecubital Antecubital Laterality : Left Right Catheter Size : 18 18 Catheter Type : Over the needle Over the needle Comments (Comment: iv dc cannula intact [VALARIE CENTENO RN - 04/10/2012 13:31 AUTOMOTIVE UPHOLSTERER] ) (Comment: iv dc cannula intact [VALARIE CENTENO RN - 04/10/2012 13:31 AUTOMOTIVE UPHOLSTERER] ) VALARIE CENTENO RN - 04/10/2012 13:31 AUTOMOTIVE UPHOLSTERER VALARIE CENTENO RN - 04/10/2012 13:31 AUTOMOTIVE UPHOLSTERER Source: [facility] POWERCHART Document Id: [id number] MOTIVE UPHOLSTERER Valarie Centeno R.N. - 04/10/2012 12:59 PM CST ED Nurse Reassess ED Nurse Reassess Entered On: 04/10/2012 13:00 AUTOMOTIVE UPHOLSTERER Performed On: 04/10/2012 12:59 AUTOMOTIVE UPHOLSTERER by VALARIE CENTENO RN Pain Assessment Pain Symptoms : No VALARIE CENTENO RN - 04/10/2012 12:59 AUTOMOTIVE UPHOLSTERER Resp Reassess Respiratory Patient Stated Symptoms : None VALARIE CENTENO RN - 04/10/2012 12:59 AUTOMOTIVE UPHOLSTERER CV Reassess CV Patient Stated Symptoms : None VALARIE CENTENO RN - 04/10/2012 12:59 AUTOMOTIVE UPHOLSTERER Neuro Reassess Last Well Time Known : Not applicable Orientation : Oriented x 3 Characteristics of Speech : Appropriate for age Level of Consciousness : Alert Neuro Patient Stated Symptoms : None Gait : Steady VALARIE CENTENO RN - 04/10/2012 12:59 AUTOMOTIVE UPHOLSTERER [place] Coma Eye Opening Response [place] : Spontaneously Best Verbal Response Maame : Oriented Best Motor Response Maame : Obeys simple commands [place] Coma Score : 15 VALARIE CENTENO RN - 04/10/2012 12:59 AUTOMOTIVE UPHOLSTERER Behavioral Health Screen/Safety Reassmt Affect/Behavior : Calm, Cooperative, Appropriate VALARIE CENTENO RN - 04/10/2012 12:59 AUTOMOTIVE UPHOLSTERER GI Reassess GI Patient Stated Symptoms : None VALARIE CENTENO RN - 04/10/2012 12:59 AUTOMOTIVE UPHOLSTERER /OB Reassess Patient Stated Symptoms : None VALARIE CENTENO RN - 04/10/2012 12:59 AUTOMOTIVE UPHOLSTERER Source: [employer] Document Id: [id number] MOTIVE UPHOLSTERER Elvis Cardenas M.D. - 04/10/2012 12:11 PM CST ED Disposition Summary ED Disposition Summary Entered On: 04/10/2012 12:12 AUTOMOTIVE UPHOLSTERER Performed On: 04/10/2012 12:11 AUTOMOTIVE UPHOLSTERER by ELVIS CARDENAS MD ED Disposition Summary Accompanied By : Spouse Mode of Discharge : Ambulatory Discharge From ED With : Home Med List Printed Discharge Instructions Given to Patient : Yes Patient Status at Discharge from ED : Improved ELVIS CARDENAS MD - 04/10/2012 12:11 AUTOMOTIVE UPHOLSTERER Source: [employer] Document Id: [id number] MOTIVE UPHOLSTERER Valarie Centeno R.N. - 04/10/2012 11:45 AM CST ED Treatments and Procedures ED Treatments and Procedures Entered On: 04/10/2012 12:06 AUTOMOTIVE UPHOLSTERER Performed On: 04/10/2012 11:45 AUTOMOTIVE UPHOLSTERER by VALARIE CENTENO RN Ambulate Ambulation Distance : 200m Ambulation Patient Effort : Good Assistive Device : None Ambulation Patient Response : No shortness of breath/ no chest pain Ambulation Treatment Response : Expected Activity Assistance : Independent VALARIE CENTENO RN - 04/10/2012 12:02 AUTOMOTIVE UPHOLSTERER [facility] POWERCHART Document Id: [id number] MOTIVE UPHOLSTERER Valarie Centeno R.N. - 04/10/2012 11:42 AM CST ED Nurse Reassess ED Nurse Reassess Entered On: 04/10/2012 11:43 AUTOMOTIVE UPHOLSTERER Performed On: 04/10/2012 11:42 AUTOMOTIVE UPHOLSTERER by VALARIE CENTENO RN Pain Assessment Pain Symptoms : No VALARIE CENTENO RN - 04/10/2012 11:42 AUTOMOTIVE UPHOLSTERER Comfort Measures Comfort Measures Response : Comfort level increased VALARIE CENTENO RN - 04/10/2012 11:42 AUTOMOTIVE UPHOLSTERER Resp Reassess Respiratory Patient Stated Symptoms : None Distress : None Airway : Patent Respiratory Pattern : Regular Respirations : Unlabored Cough : None Sputum Amount : None VALARIE CENTENO RN - 04/10/2012 11:42 AUTOMOTIVE UPHOLSTERER CV Reassess CV Patient Stated Symptoms : None Skin Color : Normal for ethnicity Skin Description : Dry Skin Temperature : Warm Nail Bed Color : [place] Capillary Refill : Less than 2 seconds Heart Rhythm : Regular Monitoring Lead : I Cardiac Rhythm : Sinus rhythm VALARIE CENTENO RN - 04/10/2012 11:42 AUTOMOTIVE UPHOLSTERER Neuro Reassess Last Well Time Known : Not applicable Orientation : Oriented x 3 Characteristics of Speech : Appropriate for age Level of Consciousness : Alert Neuro Patient Stated Symptoms : None Gait : Steady VALARIE CENTENO RN - 04/10/2012 11:42 AUTOMOTIVE UPHOLSTERER Ma[place] Coma Eye Opening Response [place] : Spontaneously Best Verbal Response Maame : Oriented Best Motor Response Maame : Obeys simple commands [place] Coma Score : 15 VALARIE CENTENO RN - 04/10/2012 11:42 AUTOMOTIVE UPHOLSTERER Behavioral Health Screen/Safety Reassmt Affect/Behavior : Calm, Cooperative, Appropriate VALARIE CENTENO RN - 04/10/2012 11:42 AUTOMOTIVE UPHOLSTERER GI Reassess GI Patient Stated Symptoms : None VALARIE CENTENO RN - 04/10/2012 11:42 AUTOMOTIVE UPHOLSTERER /OB Reassess Patient Stated Symptoms : None VALARIE CENTENO RN - 04/10/2012 11:42 AUTOMOTIVE UPHOLSTERER Integumentary Integumentary Patient Stated Symptoms : None VALARIE CENTENO RN - 04/10/2012 11:42 AUTOMOTIVE UPHOLSTERER Source: [employer] Document Id: [id number] MOTIVE UPHOLSTERER Valarie Centeno R.N. - 04/10/2012 10:59 AM CST ED Treatments and Procedures ED Treatments and Procedures Entered On: 04/10/2012 10:59 AUTOMOTIVE UPHOLSTERER Performed On: 04/10/2012 10:59 AUTOMOTIVE UPHOLSTERER by VALARIE CENTENO RN Oxygen Therapy Oxygen Start Time : 04/10/2012 10:15 AUTOMOTIVE UPHOLSTERER Oxygen Therapy : Nasal Cannula Oxygen Stop Time : 04/10/2012 10:59 AUTOMOTIVE UPHOLSTERER Oxygen Flow Rate : 2L/min VALARIE CENTENO RN - 04/10/2012 10:59 AUTOMOTIVE UPHOLSTERER Source: [employer] Document Id: [id number] MOTIVE UPHOLSTERER Elvis Cardenas M.D. - 04/10/2012 10:42 AM [...] Note : Chief Complaint Description. 04/10/2012 10:20 AUTOMOTIVE UPHOLSTERER Chief Complaint Description see triage 04/10/2012 10:00 AUTOMOTIVE UPHOLSTERER Chief Complaint Description 41 year old female [...] 08/22/1998 CDT, Ad hoc dose () 05/19/2002 AUTOMOTIVE UPHOLSTERER, Ad hoc dose() 08/18/2002 CDT, Ad hoc dose () 09/27/2002 CDT. Future No future immunizations have been selected or recorded. Menstrual history: Unknown. history: not currently . Past Medical/ Family/ Social History Medical history: . No active or resolved past medical history items have been selected or recorded. Surgical history: . LEEP procedure of cervix ([id number]) in 1996 at 26 Years. Total abdominal hysterectomy (corpus and cervix), with or without removal of tube(s), with or without removal of ovary(s); ([id number]). Comments: 07/13/2010 11:39 - RAVEN DELUNA LPN date unknown Family history: Not significant. Social history: Alcohol use: Occasionally, Tobacco use: Occasionally, Drug use: Denies, Occupation: Employed, Family/social situation: . Problem list: . Problem list reviewed. Physical Examination Vital Signs Vital Signs. 04/10/2012 10:20 AUTOMOTIVE UPHOLSTERER Temperature Core 37.6 C Apical Heart Rate 78 /min Respiratory Rate 20 /min SpO2 99 % Systolic Blood Pressure 132 mmHg Diastolic Blood Pressure 93 mmHg >HHI Mean Arterial Pressure 106 mmHg BP Location Left upper 04/10/2012 10:00 AUTOMOTIVE UPHOLSTERER Temperature Core 37.5 C Apical Heart Rate 84 /min Respiratory Rate 24 /min HI SpO2 97 % Systolic Blood Pressure 135 mmHg Diastolic Blood Pressure 84 mmHg Mean Arterial Pressure 101 mmHg BP Location Left upper Measurements. 04/10/2012 10:00 AUTOMOTIVE UPHOLSTERER Height 173 cm Height Source Stated Dosing Weight 92.8 kg Actual Weight 92.8 kg Weight Source Bed scale Body Mass Index 31.01 kg/m2 SpO2. 04/10/2012 10:20 AUTOMOTIVE UPHOLSTERER SpO2 99 % 04/10/2012 10:00 AUTOMOTIVE UPHOLSTERER SpO2 97 % General: Alert and mild [...] Laboratory: TSH (Order Processing): Stat, 04/10/2012 11:12 AUTOMOTIVE UPHOLSTERER, Once Patient Care: ED ACS (STEMI, NSTEMI, UA) (Order Processing) Vital Signs q 15 Minutes - ED (Order Processing): 04/10/2012 11:12 AUTOMOTIVE UPHOLSTERER Pharmacy: NS 250 mL Bolus and Continuous 1000 mL (Order Processing): 100 mL/hr, IV aspirin (Order Processing): 324 mg, PO, Once nitroglycerin additive 25 mg [0.15 mcg/kg/min] + Premix Bag 250 mL (Order Processing): 8.35 mL/hr, IV ED: Oxygen - ER (Order Processing): 04/10/2012 11:12 AUTOMOTIVE UPHOLSTERER, Once, PRN Order, to keep oxygen saturation above 90%, 24 Electrocardiogram:Normal sinus rhythm, No ST-T changes, normal NE & QRS intervals. quality assurance monitor final:Rate 76. Results review:All Results : Results. 04/10/2012 10:59 AUTOMOTIVE UPHOLSTERER ED Treatments and Procedures - Text 04/10/2012 10:40 AUTOMOTIVE UPHOLSTERER PRN Response - Text 04/10/2012 10:32 AUTOMOTIVE UPHOLSTERER ED Nurse Reassess - Text 04/10/2012 10:30 AUTOMOTIVE UPHOLSTERER XR Chest 1 view portable Report 04/10/2012 10:20 AUTOMOTIVE UPHOLSTERER ED Nursing Note 04/10/2012 10:07 AUTOMOTIVE UPHOLSTERER ED Triage Note - Text (In Error) 04/10/2012 10:00 AUTOMOTIVE UPHOLSTERER ED Triage Note - Text 04/10/2012 11:13 AUTOMOTIVE UPHOLSTERER Apical Heart Rate 70 /min SpO2 98 % Systolic Blood Pressure 122 mmHg Diastolic Blood Pressure 80 mmHg BP Location Left upper Oxygen Therapy Room air Vital Signs Form Vital Signs Form 04/10/2012 10:59 AUTOMOTIVE UPHOLSTERER Apical Heart Rate 64 /min SpO2 97 % Systolic Blood Pressure 128 mmHg Diastolic Blood Pressure 82 mmHg BP Location Left upper Oxygen Therapy Room air Oxygen Therapy Nasal Cannula Oxygen Flow Rate 2 L/min Oxygen Start Time 04/10/2012 10:15 Oxygen Stop Time 04/10/2012 10:59 ED Treatments and Procedures Form ED Treatments and Procedures Form Vital Signs Form Vital Signs Form 04/10/2012 10:48 AUTOMOTIVE UPHOLSTERER Temperature Core 37.5 C Apical Heart Rate 69 /min Respiratory Rate 20 /min SpO2 98 % Systolic Blood Pressure 127 mmHg Diastolic Blood Pressure 84 mmHg BP Location Left upper Oxygen Therapy Nasal Cannula Oxygen Saturation Monitoring Frequency Continuous Oxygen Flow Rate 2 L/min Vital Signs Form Vital Signs Form 04/10/2012 10:40 AUTOMOTIVE UPHOLSTERER Apical Heart Rate 78 /min SpO2 96 % Systolic Blood Pressure 125 mmHg Diastolic Blood Pressure 82 mmHg BP Location Left upper PRN Medication Effective Yes Post Medication Pain Assessment 0 Response Response Oxygen Therapy Nasal Cannula Oxygen Saturation Monitoring Frequency Continuous Oxygen Flow Rate 2 L/min Vital Signs Form Vital Signs Form 04/10/2012 10:35 AUTOMOTIVE UPHOLSTERER Apical Heart Rate 77 /min SpO2 98 % Systolic Blood Pressure 132 mmHg Diastolic Blood Pressure 88 mmHg BP Location Left upper Oxygen Therapy Nasal Cannula Oxygen Saturation Monitoring Frequency Continuous Oxygen Flow Rate 2 L/min nitroglycerin 0.4 mg mg Sodium Chloride 0.9% Begin Bag 1,000 mL mL Vital Signs Form Vital Signs Form 04/10/2012 10:34 AUTOMOTIVE UPHOLSTERER aspirin 324 mg mg 04/10/2012 10:32 AUTOMOTIVE UPHOLSTERER Pain Symptoms Yes Pain 1 Location Other: [...] Form ED Nurse Reassess Form 04/10/2012 10:25 AUTOMOTIVE UPHOLSTERER 12 Lead EKG Done 04/10/2012 10:20 AUTOMOTIVE UPHOLSTERER Temperature Core 37.6 C Apical Heart Rate 78 /min Respiratory Rate 20 /min SpO2 99 % Systolic Blood Pressure 132 mmHg Diastolic Blood Pressure 93 mmHg >HHI Mean Arterial Pressure 106 mmHg BP Location Left upper Pain Symptoms No Distress None Nail Bed Color Vining Capillary Refill Less than 2 seconds Heart Sounds ICU S1S2 Heart Rhythm Regular CV Patient Stated Symptoms Palpitations Radial Pulse, Left 2+ Normal Radial Pulse, Right 2+ Normal Bilateral Pretibial Edema None Cardiac Rhythm Sinus rhythm Monitoring Lead I Monitoring Lead Tomb Maker Helper Initiated Respirations Unlabored Respiratory Patient Stated Symptoms [...] Intact Skin Turgor Elastic Mucous Membrane Color Vining Mucous Membrane Description Moist Peripheral IV #1 [...] Time Known Not applicable Eye Opening Response [place] Spontaneously Best Motor Response [place] Obeys simple commands Best Verbal Response [place] Oriented [place] Coma Score 15 Affect/Behavior Calm, Cooperative, Appropriate Orientation Oriented x 3 Domestic Abuse Concerns None Emotional Support Available Yes Nutrition ED Adequate Patient Stated Symptoms None Latex Reaction No Oxygen Start Time 04/10/2012 10:15 Tracking Acuity 2 -Emergent Tracking Group [facility] ED Drug Resistant Organism No Tobacco Use/Currently [...] years Pneumovac None Influenza Last year Languages Slovenian ED Physician Notification Time 04/10/2012 10:00 SAEED Level 1 No SAEED Level 2 No SAEED Level 3 Many Vital Signs SAEED Danger zone (HR > 100, RR > 20, SaO2 < 92%) Vital Signs Assessed Yes Cardiovascular Detailed Assessment Yes GCS Assessed Yes Respiratory Detailed Assessment Yes 04/10/2012 10:08 AUTOMOTIVE UPHOLSTERER Sodium Lvl 138.4 mM/L Potassium Lvl 3.8 [...] % 54.9 % Lymph % 27.9 % Bladen % 10.9 % Eos % 5.7 % HI Baso % 0.6 % Neutro Absolute 2.72 10(9)/L Lymph Absolute 1.38 x10(9)/L Bladen Absolute 0.54 x10(9)/L Eos Absolute 0.28 x10(9)/L Baso Absolute 0.03 x10(9)/L Differential? Auto PT 9.5 second(s) INR 0.92 PTT 24.3 second(s) 04/10/2012 10:07 AUTOMOTIVE UPHOLSTERER ED Triage Assessment Adult ([facility]) Form In Error (In Error) 04/10/2012 10:00 AUTOMOTIVE UPHOLSTERER Height 173 cm Height Source Stated Dosing [...] Oxygen Therapy Room air Eye Opening Response Maame Spontaneously Best Motor Response [place] Obeys simple commands Best Verbal Response [place] Oriented [place] Coma Score 15 Latex Reaction No Tracking Acuity 2 -Emergent Tracking Group [facility] ED Drug Resistant Organism No Chief Complaint [...] years Pneumovac None Influenza Last year Languages Slovenian ED Physician Notification Time 04/10/2012 10:00 SAEED [...] from flowsheet : Vital Signs 04/10/2012 11:13 AUTOMOTIVE UPHOLSTERER Apical Heart Rate 70 /min SpO2 98 % Systolic Blood Pressure 122 mmHg Diastolic Blood Pressure 80 mmHg BP Location [facility] 04/10/2012 10:59 AUTOMOTIVE UPHOLSTERER Apical Heart Rate 64 /min SpO2 97 % Systolic Blood Pressure 128 mmHg Diastolic Blood Pressure 82 mmHg BP Location [facility] 04/10/2012 10:48 AUTOMOTIVE UPHOLSTERER Temperature Core 37.5 C Apical Heart Rate 69 /min Respiratory Rate 20 /min SpO2 98 % Systolic Blood Pressure 127 mmHg Diastolic Blood Pressure 84 mmHg BP Location [facility] 04/10/2012 10:40 AUTOMOTIVE UPHOLSTERER Apical Heart Rate 78 /min SpO2 96 % Systolic Blood Pressure 125 mmHg Diastolic Blood Pressure 82 mmHg BP Location [facility] 04/10/2012 10:35 AUTOMOTIVE UPHOLSTERER Apical Heart Rate 77 /min SpO2 98 % Systolic Blood Pressure 132 mmHg Diastolic Blood Pressure 88 mmHg BP Location [facility] 04/10/2012 10:20 AUTOMOTIVE UPHOLSTERER Temperature Core 37.6 C Apical Heart Rate 78 /min Respiratory Rate 20 /min SpO2 99 % Systolic Blood Pressure 132 mmHg Diastolic Blood Pressure 93 mmHg >HHI Mean Arterial Pressure 106 mmHg BP Location [facility] 04/10/2012 10:00 AUTOMOTIVE UPHOLSTERER Temperature Core 37.5 C Apical Heart Rate 84 /min Respiratory Rate 24 /min HI SpO2 97 % Systolic Blood Pressure 135 mmHg Diastolic Blood Pressure 84 mmHg Mean Arterial Pressure 101 mmHg BP Location [facility] SpO2 04/10/2012 11:13 AUTOMOTIVE UPHOLSTERER SpO2 98 % 04/10/2012 10:59 AUTOMOTIVE UPHOLSTERER SpO2 97 % 04/10/2012 10:48 AUTOMOTIVE UPHOLSTERER SpO2 98 % 04/10/2012 10:40 AUTOMOTIVE UPHOLSTERER SpO2 96 % 04/10/2012 10:35 AUTOMOTIVE UPHOLSTERER SpO2 98 % 04/10/2012 10:20 AUTOMOTIVE UPHOLSTERER SpO2 99 % 04/10/2012 10:00 AUTOMOTIVE UPHOLSTERER SpO2 97 % Impression and Plan Diagnosis [...] 01:27 PM Source: [facility] POWERCHART Document Id: [id number]} MOTIVE UPHOLSTERER Valarie Centeno R.N. - 04/10/2012 10:32 AM CST ED Nurse Reassess ED Nurse Reassess Entered On: 04/10/2012 10:37 AUTOMOTIVE UPHOLSTERER Performed On: 04/10/2012 10:32 AUTOMOTIVE UPHOLSTERER by VALARIE CENTENO RN Pain Assessment Pain Symptoms : Yes VALARIE CENTENO RN - 04/10/2012 10:32 AUTOMOTIVE UPHOLSTERER Pain Pain Assessment Grid Pain 1 Location : Other: Chest/Heart Laterality : Bilateral Intensity : 2 Time Pattern : Acute Onset : Sudden Quality : Pressure, Sharp Pain Radiation : No Aggravating Factors : None Alleviating Factors : None Associated Symptoms : Palpitations Interventions : MD notified VALARIE CENTENO RN - 04/10/2012 10:41 AUTOMOTIVE UPHOLSTERER [facility] [place] Document Id: [id number] MOTIVE UPHOLSTERER William Arredondo R.N. - 04/10/2012 10:00 AM CST ED Triage Assessment ED Triage Assessment Entered On: 04/10/2012 10:20 AUTOMOTIVE UPHOLSTERER Performed On: 04/10/2012 10:00 AUTOMOTIVE UPHOLSTERER by WILLIAM ARREDONDO RN Reason For Visit Problems(Active) Common migraine Name of Problem: Common migraine ; Onset Date: Unknown ; Recorder: NELLIE JOHNSON RN;Confirmation: Confirmed ; Classification: Nursing ; Code: [id number] ; Contributor System: zoomsquareChart ; Last Updated: 06/19/2010 11:18 CDT ; Life Cycle Status: Active ; Vocabulary: SNOMED CT Hyperlipidemia Name of Problem: Hyperlipidemia ; Recorder: MAXIME VARGHESE RN; Confirmation: Confirmed ; Classification: Medical ; Code: 224763 ; Contributor System: [employer] ; Last Updated: 02/14/2012 13:41 AUTOMOTIVE UPHOLSTERER ; Life Cycle Date: 02/11/2012 ; Life [...] PNED ; Probability: 0 ; Diagnosis Code: [id number] Triage Chief Complaint Description : 41 year old female presents to the ED after presenting to clinic triage with c/o being lightheaded, feeling sweaty, and palpitations. Patient has a hx NSTEMI- June 21, 2010. Information Given By : Patient, Significant other Accompanied By : Significant other Mode of Arrival ED : Private vehicle Track : Medical Languages : Slovenian Patient Informed of Triage Location : Emergency department Vital Signs Assessed : Yes GCS Assessed : Yes WILLIAM ARREDONDO RN - 04/10/2012 10:14 AUTOMOTIVE UPHOLSTERER Vital Signs Temperature Core : 37.5C(Converted to: [...] 31.01kg/m2 WILLIAM ARREDONDO RN - 04/10/2012 10:14 AUTOMOTIVE UPHOLSTERER Maame Coma Eye Opening Response Maame : Spontaneously Best Verbal Response [place] : Oriented Best Motor Response Maame : Obeys simple commands [place] Coma Score : 15 WILLIAM ARREDONDO RN - 04/10/2012 10:14 AUTOMOTIVE UPHOLSTERER Pain Assessment Pain Symptoms : No WILLIAM ARREDONDO RN - 04/10/2012 10:14 AUTOMOTIVE UPHOLSTERER ED Physician Notification Time ED Physician Notification Time : 04/10/2012 10:00 AUTOMOTIVE UPHOLSTERER WILLIAM ARREDONDO RN - 04/10/2012 10:14 AUTOMOTIVE UPHOLSTERER SAEED SAEED Level 1 : No SAEED Level 2 : No SAEED Level 3 : Many Vital Signs SAEED : Danger zone (HR > 100, RR > 20, SaO2 < 92%) WILLIAM ARREDONDO RN - 04/10/2012 10:14 AUTOMOTIVE UPHOLSTERER DCP GENERIC CODE Tracking Acuity : 2 -Emergent Tracking Group : [facility] ED WILLIAM ARREDONDO RN - 04/10/2012 10:14 AUTOMOTIVE UPHOLSTERER Allergy Latex Reaction : No WILLIAM ARREDONDO RN - 04/10/2012 10:14 AUTOMOTIVE UPHOLSTERER Allergies (Active) morphine Estimated Onset Date: Unspecified ; Created By: RAVEN DELUNA LPN; Reaction Status: Active ; Category: Drug ; Substance: morphine ; Type: Allergy ; Updated By: RAVEN DELUNA LPN; Reviewed Date: 04/10/2012 10:20 AUTOMOTIVE UPHOLSTERER narcotic analgesics Estimated Onset Date: Unspecified ; Reactions: itch ; Created By: NELLIE JOHNSON RN; Reaction Status: Active ; Category: Drug ; Substance: narcotic analgesics ; Type: Sensitivity ; Updated By: NELLIE JOHNSON RN; Reviewed Date: 04/10/2012 10:20 AUTOMOTIVE UPHOLSTERER Percocet 5/325 Estimated Onset Date: Unspecified ; Created By: RAVEN DELUNA LPN; Reaction Status:Active ; Category: Drug ; Substance: Percocet 5/325 ; Type: Allergy ; Updated By: RAVEN DELUNA LPN; Reviewed Date: 04/10/2012 10:20 AUTOMOTIVE UPHOLSTERER Toradol Estimated Onset Date: Unspecified ; Created By: RAVEN DELUNA LPN; Reaction Status: Active; Category: Drug ; Substance: Toradol ; Type: Allergy ; Updated By: RAVEN DELUNA LPN; Reviewed Date: 04/10/2012 10:20 AUTOMOTIVE UPHOLSTERER ID Screen Drug Resistant Organism : No WILLIAM ARREDONDO RN - 04/10/2012 10:14 AUTOMOTIVE UPHOLSTERER Immunizations Immunizations Current : Yes Last Tetanus : < 5 years Pneumovac : None Influenza : Last year WILLIAM ARREDONDO RN - 04/10/2012 10:14 AUTOMOTIVE UPHOLSTERER Source: [facility] POWERCHART Document Id: [id number] MOTIVE UPHOLSTERER documented in this encounter Miscellaneous Notes Miscellaneous - Valarie Centeno R.N. - 04/10/2012 1:31 PM CST Valuables/Belongings Valuables/Belongings Entered On: 04/10/2012 13:31 AUTOMOTIVE UPHOLSTERER Performed On: 04/10/2012 13:31 AUTOMOTIVE UPHOLSTERER by VALARIE CENTENO RN Valuables/Belongings Valuables/Belongings Grid Valuables with Patient Clothes, Patient Valuables : Jacket, Pants, Shirt, Shoes, Undergarments Electronic Devices : Cell phone VALARIE CENTENO RN - 04/10/2012 13:31 AUTOMOTIVE UPHOLSTERER Home Medication Disposition : None brought in with patient VALARIE CENTENO RN - 04/10/2012 13:31 AUTOMOTIVE UPHOLSTERER Source: [employer] Document Id: [id number] MOTIVE UPHOLSTERER Kilo - Valarie Centeno R.N. - 04/10/2012 1:21 PM CST Discharge Vital Signs Form Discharge Vital Signs Form Entered On: 04/10/2012 13:21 AUTOMOTIVE UPHOLSTERER Performed On: 04/10/2012 13:21 AUTOMOTIVE UPHOLSTERER by VALARIE CENTENO RN Vital Signs Temperature Core : 37.3C(Converted to: 99.1DegF) Apical Heart Rate : 58/min (LOW) Respiratory Rate : 20/min Systolic Blood Pressure : 127mmHg Diastolic Blood Pressure : 86mmHg NIBP Mean : 100mmHg BP Location : Left upper extremity SpO2 : 98% Oxygen Therapy : Room air VALARIE CENTENO RN - 04/10/2012 13:21 AUTOMOTIVE UPHOLSTERER Source: [employer] Document Id: [id number] MOTIVE UPHOLSTERER Kilo - Valarie Centeno R.N. - 04/10/2012 9:53 AM CST Facility Charge Ticket Facility Charge Ticket Entered On: 04/10/2012 13:34 AUTOMOTIVE UPHOLSTERER Performed On: 04/10/2012 9:53 AUTOMOTIVE UPHOLSTERER by VALARIE CENTENO RN Facility Charge TVL [...] Control : 15 Lynx Visit Level : 16528 Level 5 VALARIE CENTENO RN - 04/10/2012 13:33 AUTOMOTIVE UPHOLSTERER Chief Complaint 8.50.02 Reason For Visit Category : Cardiorespiratory ED Chief Complaint Cardiorespiratory 8.5 : Palpitations TVL Calc : 20 TVL for Facility Charge Ticket Dx : Level 5 VALARIE CENTENO RN - 04/10/2012 13:33 AUTOMOTIVE UPHOLSTERER Source: [facility] POWERCHART Document Id: [id number] MOTIVE UPHOLSTERER documented in this encounter Plan of Treatment Not on filedocumented as of this encounter Procedures Procedure Name Priority Date/Time Associated Comments Diagnosis CREATINE KINASE (CK) MB Routine 04/10/2012 10:08 Results for this ISOENZYME, S AM AUTOMOTIVE UPHOLSTERER procedure are i n the results section. AUTOMATED DIFFERENTIAL, Routine 04/10/2012 10:08 Results for this B AM AUTOMOTIVE UPHOLSTERER procedure are i n the results section. ACTIVATED PARTIAL Routine 04/10/2012 10:08 Result s for this THROMBOPLASTIN TIME AM AUTOMOTIVE UPHOLSTERER procedur e are in (APTT), P the results section. PROTHROMBIN TIME (PT), Routine 04/10/2012 10:08 R esults for this P AM AUTOMOTIVE UPHOLSTERER procedure are i n the results section. CBC WITH DIFFERENTIAL, Routine 04/10/2012 10:08 R esults for this B AM AUTOMOTIVE UPHOLSTERER procedure are i n the results section. TROPONIN T, 5TH GEN, P Routine 04/10/2012 10:08 R esults for this AM AUTOMOTIVE UPHOLSTERER procedure are i n the results section. CREATINE KINASE (CK), S Routine 04/10/2012 10:08 Results for this AM AUTOMOTIVE UPHOLSTERER procedure are i n the results section. BASIC METABOLIC PANEL, Routine 04/10/2012 10:08 R esults for this S/P AM AUTOMOTIVE UPHOLSTERER procedure are i n the results section. documented in this encounter Results (ABNORMAL) Automated Differential (04/10/2012 10:08 AM AUTOMOTIVE UPHOLSTERER) Analysis Performed At Patho logist Time Signature Neutro % 54.9 42.0 - POWERCHART 77.0 Lymphocytes % 27.9 23.0 - POWERCHART 44.0 HX Bladen % 10.9 2.0 - 18.0 POWERCHART HX [...] Volume Laterality Blood 04/10/2012 10:08 04/10/2012 AM AUTOMOTIVE UPHOLSTERER 10:08 AM AUTOMOTIVE UPHOLSTERER Elvis Cardenas M.D. LAB BLOOD ADD-ON Performing Organization Address City/State/ZIP Code Phon e Number POWERCHART APTT (Activated Partial Thromboplastin Time) (04/10/2012 10:08 AM AUTOMOTIVE UPHOLSTERER) Analysis Performed At Patho logist Time Signature Prothrombin 24.3 23.0 - 31.0 POWERCHART Time, P SECONDS Specimen (Source) Anatomical Collection Method Collection Time Re ceived Time Location / / Volume Laterality Blood 04/10/2012 10:08 AM AUTOMOTIVE UPHOLSTERER Elvis Cardenas M.D. LAB BLOOD ADD-ON Performing Organization Address City/State/ZIP Code Phon e Number POWERCHART PT (Prothrombin Time) with INR (04/10/2012 10:08 AM AUTOMOTIVE UPHOLSTERER) Analysis Performed At Patho logist Time Signature Prothrombin 9.5 9.3 - 11.3 POWERCHART Time, P SECONDS INR 0.92 0.90 - 1.10 POWERCHART Specimen (Source) Anatomical Collection Method Collection Time Re ceived Time Location / / Volume Laterality Blood 04/10/2012 10:08 AM AUTOMOTIVE UPHOLSTERER Elvis Cardenas M.D. LAB BLOOD ADD-ON Performing Organization Address City/State/ZIP Code Phon e Number POWERCHART CBC with Differential (04/10/2012 10:08 AM AUTOMOTIVE UPHOLSTERER) P athologist Signature Leukocytes 5.0 3.4 - 10.5 POWERCHART X109L Erythrocytes 4.26 3.90 - POWERCHART 5.03 [id number] Hemoglobin 13.6 12.0 - POWERCHART 15.5 GDL Hematocrit 39.4 34.9 - POWERCHART 44.5 MCV 92.5 82.0 - POWERCHART 98.0 FL HX RDW 12.0 11.9 - POWERCHART 15.5 Platelet Count 265 150 - 450 POWERCHART X109L HXDifferential? Auto POWERCHART Specimen (Source) Anatomical Collection Method Collection Time Re ceived Time Location / / Volume Laterality Blood 04/10/2012 10:08 AM AUTOMOTIVE UPHOLSTERER Elvis Cardenas M.D. LAB BLOOD ADD-ON Performing Organization Address City/State/ZIP Code Phon e Number POWERCHART Troponin T (04/10/2012 10:08 AM AUTOMOTIVE UPHOLSTERER) P athologist Signature Troponin T, S <0.01 0.00 - 0.10 POWERCHART NGML Comment: 0.03 ? 0.1 ng/mL Intermediate Zone Specimen (Source) Anatomical Collection Method Collection Time Re ceived Time Location / / Volume Laterality Blood 04/10/2012 10:08 AM AUTOMOTIVE UPHOLSTERER Elvis Cardenas M.D. LAB BLOOD ADD-ON Performing Organization Address City/State/ZIP Code Phon e Number POWERCHART CK (Creatine Kinase) (04/10/2012 10:08 AM AUTOMOTIVE UPHOLSTERER) P athologist Signature Creatine Kinase 82 21 - 232 UL POWERCHART (CK), S Specimen (Source) Anatomical Collection Method Collection Time Re ceived Time Location / / Volume Laterality Blood 04/10/2012 10:08 AM AUTOMOTIVE UPHOLSTERER Elvis Cardenas M.D. LAB BLOOD ADD-ON Performing Organization Address City/State/ZIP Code Phon e Number POWERCHART BMP (Basic Metabolic Panel) (04/10/2012 10:08 AM AUTOMOTIVE UPHOLSTERER) P athologist Signature Sodium, S 138.4 135.0 - POWERCHART 145.0 MML Potassium, S 3.8 3.6 - 4.8 POWERCHART MMOLL Chloride, S 103 100 - 108 POWERCHART MMOLL CO2 Total 25.3 23.0 - POWERCHART 29.0 MMOLL BUN (Blood Urea 13 7 - 18 POWERCHART Nitrogen), S MGDL Creatinine 0.68 0.60 - POWERCHART 1.30 MGDL Calcium, Total, 8.8 8.5 - 10.1 POWERCHART S MGDL Anion Gap 10 10 - 20 POWERCHART MMOLL eGFR >60 >=60 POWERCHART Black/ [id number] Vietnamese Glucose 126 70 - 139 POWERCHART MGDL HXeGFR (MDRD) >60 >=60 POWERCHART [id number] Comment: A GFR of <60 mL/min is indicative of chr onic kidney disease. (MDRD calculation valid on patients 18 - 70 years.) Specimen (Source) Anatomical Collection Method Collection Time Re ceived Time Location / / Volume Laterality Blood 04/10/2012 10:08 AM AUTOMOTIVE UPHOLSTERER Elvis Cardenas M.D. LAB BLOOD ADD-ON Performing Organization Address City/State/ZIP Code Phon e Number POWERCHART Creatine Kinase (CK) MB Isoenzyme (04/10/2012 10:08 AM AUTOMOTIVE UPHOLSTERER) P athologist Signature Creatine 1.7 0.1 - 6.2 POWERCHART Kinase(CK) MB NGML Isoenzyme, S Specimen (Source) Anatomical Collection Method Collection Time Re ceived Time Location / / Volume Laterality Blood 04/10/2012 10:08 AM AUTOMOTIVE UPHOLSTERER Elvis Cardenas M.D. LAB BLOOD ADD-ON Performing Organization Address City/State/ZIP Code Phon e Number POWERCHART documented in this encounter Visit Diagnoses Not on filedocumented in this encounter Additional Health Concerns Assessment Noted Time PHQ-9 Depression Total Score: 15 02/14/2012 1:41 PM CS T documented as of this encounter
--- OUTSIDE RECORDS SUMMARY | 2022-01-22 10:16 | XMS_ITS | Encounter Summary ---
:1970 Author Organization [facility] Address [address] [place] [address] Care Team Providers Name Role Phone Unavailable Primary Care Provider Unavailable Encounter Details Date Type Department Care Team Description 03/11/2013 Hospital Encounter HX [facility] Tiffanie Christiansen, ALVERTO, C.N.P., D.N.P. [address], [place] [phone] (Wo rk) Social History [...] More than 4 times per year 06/22/2019 congregational services? Do you belong to any clubs [...] Christiansen D.N.P., C.N.P. - 03/16/2013 7:02 AM PAY STATION DEPARTMENT MANAGER Normal Results Letter 16 March 2013 GERMAN NOVAK [address] [facility] [id number] Dear GERMAN NOVAK, I am pleased to [...] Result Name Current Result Normal Range Lipoprotein (a)-[place] (mg/dL) 15 03/11/2013 <=30 - Sincerely, TIFFANIE CHRISTIANSEN [address] [place] [address] Electronic Signature Electronically Signed By: TIFFANIE CHRISTIANSEN DNP, FNP On: 16 March 2013 This document has images extracted. Source: [facility] Document Id: [id number] Electronically signed by Conversion, [facility] Credit Assistant [id number] at 08/06/2016 2:46 PM CDT Miscellaneous - Tiffanie Christiansen, D.N.P., C.N.P. - 03/11/2013 10:32 AM PAY STATION DEPARTMENT MANAGER Normal Results Letter 11 March 2013 GERMAN NOVAK [address] [facility] [id number] Dear GERMAN NOVAK, I apologize, as I [...] lipoprotein A results when they return from [place]. Please follow up with us as we [...] 0.30 - 5.00 Sincerely, TIFFANIE CHRISTIANSEN [address] [place] [address] Electronic Signature Electronically Signed By: TIFFANIE CHRISTIANSEN DNP, FNP On: 11 March 2013 This document has images extracted. Source: [facility] Document Id: [id number] Electronically signed by Conversion, [facility] Credit Assistant [id number] at 08/06/2016 2:46 PM CDT documented in this encounter Plan of Treatment Not on filedocumented as of this encounter Procedures Procedure Name Priority Date/Time Associated Comments Diagnosis LIPID PANEL, S Routine 03/11/2013 9:24 AM Results for this PAY STATION DEPARTMENT MANAGER procedure are i n the results section. LIPOPROTEIN (A), S/P Routine 03/11/2013 9:24 AM R esults for this PAY STATION DEPARTMENT MANAGER procedure are i n the results section. THYROID-STIMULATING Routine 03/11/2013 9:24 AM Re sults for this HORMONE-SENSITIVE PAY STATION DEPARTMENT MANAGER procedure are in (S-TSH) the results section. documented in this encounter Results Thyroid-Stimulating Hormone-Sensitive (s-TSH) (03/11/2013 9:24 AM PAY STATION DEPARTMENT MANAGER) P athologist Signature TSH 1.27 0.30 - 5.00 POWERCHART (Thyrotropin) MCIUML Specimen (Source) Anatomical Collection Method Collection Time Re ceived Time Location / / Volume Laterality Blood 03/11/2013 9:24 AM PAY STATION DEPARTMENT MANAGER Tiffanie Christiansen APRN, C.N.P., D.N.P. LAB BLOOD ADD- ON Performing Organization Address City/State/[facility] Code Phon e Number POWERCHART (ABNORMAL) Lipid Panel (03/11/2013 9:24 AM PAY STATION DEPARTMENT MANAGER) P athologist Signature Cholesterol, 271 (H) 0 [...] / Volume Laterality Blood 03/11/2013 9:24 AM PAY STATION DEPARTMENT MANAGER Tiffanie Christiansen APRN, C.N.P., D.N.P. LAB BLOOD ADD- ON Performing Organization Address City/State/ZIP Code Phon e Number POWERCHART Lipoprotein (a) (03/11/2013 9:24 AM PAY STATION DEPARTMENT MANAGER) P athologist Signature Lp(a) 15 <=30 MGDL POWERCHART Cholesterol Comment: Test Performed by: [address] [address] Top Stitcher: Babatunde elder III, M.D. Specimen (Source) Anatomical Collection Method Collection Time Re ceived Time Location / / Volume Laterality Blood 03/11/2013 9:24 AM PAY STATION DEPARTMENT MANAGER Tiffanie Christiansen APRN, C.N.P., D.N.P. LAB BLOOD ADD- ON Performing Organization Address City/State/ZIP Code Phon e Number POWERCHART documented in this encounter Visit Diagnoses Not on filedocumented in this encounter Additional Health Concerns Assessment Noted Time PHQ-9 Depression Total Score: 10 03/11/2013 2:22 PM CS T documented as of this encounter
--- OUTSIDE RECORDS SUMMARY | 2022-01-22 10:16 | XMS_ITS | Encounter Summary ---
:1970 Author Organization [facility] Address [address] [place] [address] Care Team Providers Name Role Phone Unavailable Primary Care Provider Unavailable Encounter Details Date Type Department Care Team Description 09/14/2007 Hospital Encounter HX [facility] INPT/[facility]BSRV Morelia Reynoso M.D. [address] [place] [address] (Wo rk) Social History Tobacco [...] or relatives? How often do you attend scientologist or More than 4 times per year 06/22/2019 sikhism services? Do you belong to any clubs or No 06/22/2019 organizations such as scientologist groups, unions, fraternal or athletic groups, or [...]
--- OUTSIDE RECORDS SUMMARY | 2022-01-22 10:16 | XMS_ITS | Encounter Summary ---
:1970 Author Organization [facility] Address [address] [place] [address] Care Team Providers Name Role Phone Unavailable Primary Care Provider Unavailable Encounter Details Date Type Department Care Team Description 10/28/2007 Hospital Encounter HX [facility] [place], INPT/OBSRV M.Roopa [address] [place] [phone] (Wo rk) Social [...] or relatives? How often do you attend baptist or More than 4 times per year 06/22/2019 caodaism services? Do you belong to any clubs or No 06/22/2019 organizations such as baptist groups, unions, fraternal or athletic groups, or [...]
--- OUTSIDE RECORDS SUMMARY | 2022-01-22 10:16 | XMS_ITS | Encounter Summary ---
:1970 Author Organization [facility] Address [address] [place] [address] Care Team Providers Name Role Phone Unavailable Primary Care Provider Unavailable Encounter Details Date Type Department Care Team Description 09/08/2007 Hospital Encounter [facility] INPT/OBSRV Lindy Palacios M.D. [address] [place] [phone] (Wo rk) Social History Tobacco [...] or relatives? How often do you attend zoroastrian or More than 4 times per year 06/22/2019 protestant services? Do you belong to any clubs or No 06/22/2019 organizations such as zoroastrian groups, unions, fraternal or athletic groups, or [...]
--- OUTSIDE RECORDS SUMMARY | 2022-01-22 10:16 | XMS_ITS | Encounter Summary ---
:1970 Author Organization [facility] Address [address] [place] [address] Care Team Providers Name Role Phone Unavailable Primary Care Provider Unavailable Encounter Details Date Type Department Care Team Description 02/13/2012 Hospital Encounter HX [facility] Alessandra Hogue AP RN, C.N.P., D.N.P. [address] [place], [place] [phone] (Wo rk) Social History [...] AM Results for this HORMONE (FSH), S AIRCRAFT NAVIGATOR procedure a re in the results section. documented in this encounter Results FSH (Follicle-Stimulationg Hormone) (02/13/2012 8:05 AM AIRCRAFT NAVIGATOR) P athologist Signature Follicle-Stim 9.7 INTUL POWERCHART Hormone (FSH), S Comment: -- REFERENCE VALUE -- Premenopausal: 3.9-8.8 ??(Follicular) 4.5-22.5 (Midcycle) 1.8-5.1 ??(Luteal) Postmenopausal: 16.7-113.6 Test Performed by: [address] [address] Mortgage Sales Manager: Babatunde elder III, M.D. Specimen (Source) Anatomical Collection Method Collection Time Re ceived Time Location / / Volume Laterality Blood 02/13/2012 8:05 AM AIRCRAFT NAVIGATOR Alessandra Hogue APRN, C.N.P., D.N.P. LAB BLOOD ADD-ON Performing Organization Address City/State/ZIP Code Phon e Number POWERCHART documented in this encounter Visit Diagnoses Not on filedocumented in this encounter
--- OUTSIDE RECORDS SUMMARY | 2022-01-22 10:16 | XMS_ITS | Encounter Summary ---
:[address] [facility] Address [address] [place] [address] Care Team Providers Name Role Phone Unavailable Primary Care Provider Unavailable Encounter Details Date Type Department Care Team Description 10/19/2007 Hospital Encounter HX [facility] [place], INPT/OBSRV M.Roopa [address] [place] [phone] (Wo rk) Social [...] More than 4 times per year 06/22/2019 nondenominational services? Do you belong to any clubs [...]
--- OUTSIDE RECORDS SUMMARY | 2022-01-22 10:16 | XMS_ITS | Encounter Summary ---
:1970 Author Organization [facility] Address [address] [place] [address] Care Team Providers Name Role Phone Unavailable Primary Care Provider Unavailable Encounter Details Date Type Department Care Team Description 10/23/2007 Hospital Encounter HX [facility] [place], INPT/OBSRV M.Roopa [address] [place] [phone] (Wo rk) Social [...] More than 4 times per year 06/22/2019 yazdanism services? Do you belong to any clubs [...]
--- OUTSIDE RECORDS SUMMARY | 2022-01-22 10:16 | XMS_ITS | Encounter Summary ---
:1970 Author Organization [facility] Address [address] [place] [address] Care Team Providers Name Role Phone Unavailable [...] minutes do you engage in exercise at [facility] 0 min 06/22/2019 level? Stress Answer Date [...]
--- OUTSIDE RECORDS SUMMARY | 2022-01-22 10:16 | XMS_ITS | Encounter Summary ---
:1970 Author Organization [facility] Address [address] [place] [address] Care Team Providers Name Role Phone Unavailable Primary Care Provider Unavailable Encounter Details Date Type Department Care Team Description 03/11/2013 Hospital Encounter HX [facility] Juve Christiansen, ALVERTO, C.N.P., D. N.P. [address] [place] [address] (Wo rk) Social History Tobacco [...] as of this encounter Progress Notes Juve Christiansen, RoopaN.P., C.N.P. - 03/11/2013 3:08 PM CST [id number] CHIEF COMPLAINT/REASON FOR VISIT Labs. HISTORY OF [...] ECG was unremarkable. She was transferred to [place] for evaluation of her elevation in cardiac [...] alert/oriented x3. HEAD: Normocephalic/atraumatic. PUPILS: GONZALO. OROPHARYNX: Mcclusky and moist. TMs: Bilateral TMs are clear, [...] also recommend she follow up with our Mixing House Operator for further overall wellness improvement. Patient again felt comfortable with this treatment plan. 2. Depression: Presently at this time she is to continue her previously prescribed Prozac 40 mg by mouth daily but again we will plan on having her follow up with Health and Mixing House Operator for further evaluation to see if we can provide some further improvement regarding her overall depression. We also discussed anxiety at length and the overall need to minimize this as well given her history of her NE. The patient stated she understands the plan. [...] expressed understanding of the content. Juve Christiansen D.N.P./FSonjaN.P/solis Electronically Signed By: JUVE CHRISTIANSEN DNP, FNP On: 03/20/2013 12:11 PM Source: [facility] Document Id: [id number] HOT SUPERINTENDENT documented in this encounter Consult Notes Conversion, Historical Provider Ser - 03/11/2013 3:08 PM CST [id number] HEALTH & WELLNESS COACHING Referring Physician Juve Christiansen D.N.P./F.N.PSonja Patient was seen in [facility] on 03/11/2013 for initial wellness coaching visit [...] NA FONSECA On: 03/16/2013 04:02 PM Source: [facility] Document Id: [id number] documented in this encounter Plan of Treatment Not on filedocumented as of this encounter Visit Diagnoses Not on filedocumented in this encounter Additional Health Concerns Assessment Noted Time PHQ-9 Depression Total Score: 10 03/11/2013 2:22 PM CS T documented as of this encounter
--- OUTSIDE RECORDS SUMMARY | 2022-01-22 10:16 | XMS_ITS | Encounter Summary ---
:1970 Author Organization [facility] Address [address] [place] [address] Care Team Providers Name Role Phone Unavailable Primary Care Provider Unavailable Encounter Details Date Type Department Care Team Description 06/19/2010 Hospital Encounter HX [facility] Radha Lopez, INPT/OBSRV M.[place]opa [address] [place] [phone] (Wo rk) Social [...] ARREOLA RN DC Information Discharged to: Other: [facility] Mode of Discharge: Stretcher Discharge Transportation: Ground ambulance Accompanied By: Other: ems Report called to: transfered [facility] Transfer forms sent with: all emtla paers with and labs and drugs given Date/Time of Discharge: 06/19/2010 16:20 CDT LEA ARREOLA RN - 06/19/2010 16:33 CDT Source: [facility] POWER[employer] Document Id: [id number] CDT!9 Lea Arreola R.N. - 06/19/2010 4:32 PM CDT Discharge Summary Discharge Summary Entered On: 06/19/2010 16:33 CDT Performed On: 06/19/2010 16:32 CDT by LEA ARREOLA RN DC Information Date/Time of Discharge: 06/19/2010 16:20 CDT LEA ARREOLA RN - 06/19/2010 16:32 CDT Source: [facility] [employer] Document Id: [id number] CDT!3 Nellie Jerez R.N. - 06/19/2010 10:23 AM CDT ED Discharge Instructions [address] [address] Name: GERMAN NOVAK Date of : 1970 12:00 AM Visit Date: 06/19/2010 8:54 AM Address: [address] [place] [phone] Primary Care Provider: RADHA VALDERRAMA MD IMPORTANT: [facility] would like to thank you for allowing [...] to take those medications. GERMAN NOVAK or designee has reviewed the home medications you have [...] ride home with a responsible libertarian. I, GERMAN NOVAK , or responsible libertarian have received this information and my questions have been answered. I have discussed any challenges I see with this plan with the nurse or physician. Patient Signature or Responsible Constitution Party Date/Time Provider Signature Date/Time Medication Reconciliation: Reconciliation [...] ride home with a responsible libertarian. I, GERMAN NOVAK , or responsible libertarian have received this information and my questions have been answered. I have discussed any challenges I see with this plan with the nurse or physician. Patient Signature or Responsible Constitution Party Date/Time Provider Signature Date/Time Source: [employer] Document Id: [id number] Nellie Jerez R.N. - 06/19/2010 10:23 AM CDT ED Depart Summary [facility] Emergency Department Clinical Discharge Summary PERSON INFORMATION Name GERMAN NOVAK Age 39 Years 1970 12:00 AM Sex Female Language PCP RADHA VALDERRAMA MD Marital Status N [id number] Visit Id Visit Reason Chest pain; chest pain Specialty Enc Type Emergency Med Service Emergency Medicine Referred by Track Group [facility] ED Discharge Tracking Id [id number] Checkout 06/19/2010 10:23 AM Checkin 06/19/2010 8:54 AM Acuity 2 -Emergent Dispo Type Admitted as Inpatient to this Hospital Arrival 06/19/2010 8:54 AM Reg Status LOS 000 01:29 Address: [address] [place] [phone] Comment: PROVIDER INFORMATION DIAGNOSIS Comment: PATIENT EDUCATION INFORMATION Instructions: Follow up: Source: [employer] Document Id: [id number] documented in this encounter H&P Notes Radha Valderrama M.D. - 06/19/2010 12:00 AM CDT [id number] IMPRESSION/REPORT/PLAN DIAGNOSTICS: An EKG is done which [...] per week. 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 She is exposed to significant allergens. [...] RADHA VALDERRAMA MD On: 06/19/2010 04:00 [facility]: [facility] Document Id: [id number] documented in this encounter Nursing Notes Lea Arreola R.N. - 06/19/2010 4:27 PM CDT transfer to [facility] Pt left to [facility] after cardicac emzymes 2 draw done hepain started and nitro fusion going pt explaoned poc and family present oxygen on at 4 liters monitor was nsr left at 1620 [facility] ambulance to er Source: [facility] [employer] Document Id: [id number] Lea Arreola R.N. - 06/19/2010 10:02 AM CDT PRN Response PRN Response Entered On: 06/19/2010 10:09 CDT Performed On: 06/19/2010 10:02 CDT by LEA ARREOLA RN PRN Medication Effectiveness Evaluation PRN Medication Effective: Yes Post Medication Pain Assessment: 6 LEA ARREOLA RN - 06/19/2010 10:08 CDT Source: [employer] Document Id: [id number] CDT!4 Lea Arreola R.N. - 06/19/2010 9:38 AM CDT PRN Response PRN Response Entered On: 06/19/2010 10:08 CDT Performed On: 06/19/2010 9:38 CDT by LEA ARREOLA RN PRN Medication Effectiveness Evaluation PRN Medication Effective: Yes Post Medication Pain Assessment: 8 LEA ARREOLA RN - 06/19/2010 10:08 CDT [facility] Document Id: [id number] CDT!4 Nellie Jerez R.N. - 06/19/2010 9:31 [...] JEREZ RN - 06/19/2010 9:31 CDT Source: [employer] Document Id: [id number] CDT!26 Nellie Jerez R.N. - 06/19/2010 9:21 [...] PNED ; Probability: 0 ; Diagnosis Code: [id number] Triage Chief Complaint Description: 39 year old female presents to er c/o left sided chest pain and sudden severe headache Information Given By: Patient, Spouse Accompanied By: Spouse Mode of Arrival ED: Private vehicle Track: Medical Languages: Citizen [place] Pain Symptoms: Yes Pain Medication Requested: No [...] NELLIE JEREZ RN - 06/19/2010 9:21 CDT Maame Coma Eye Opening Response Maame: Spontaneously Best Verbal Response Maame: Oriented Best Motor Response Castella: Obeys simple commands Maame Coma Score: 15 NELLIE JEREZ RN - 06/19/2010 9:21 CDT ED Physician Notification Time ED Physician Notification Time: 06/19/2010 8:50 CDT NELLIE JEREZ RN - 06/19/2010 9:21 CDT SAEED DCP GENERIC CODE Tracking Acuity: 2 -Emergent Tracking Group: [facility] ED NELLIE JEREZ RN - 06/19/2010 9:21 CDT Allergy Allergies (Active) narcotic analgesics Estimated Onset Date: Unspecified ; Reactions: itch ; Created By: NELLIE JEREZ RN; Reaction Status: Active ; Category: Drug ; Substance: narcotic analgesics ; Type: Sensitivity ; Updated By: NELLIE JEREZ RN; Reviewed Date: 06/19/2010 9:23 CDT ID Screen Drug Resistant Organism: No NELLIE JERZE RN - 06/19/2010 9:21 CDT Immunizations Immunizations [...] RN - 06/19/2010 9:21 CDT] ) NELLIE JEREZ RN - 06/19/2010 9:21 CDT Peripheral IV [...] JEREZ RN - 06/19/2010 9:21 CDT Source: [employer] Document Id: [id number] CDT!105 Nellie Jerez RMargaret. - 06/19/2010 9:15 AM CDT ED Pain [...] JEREZ RN - 06/19/2010 9:15 CDT Source: [employer] Document Id: [id number] CDT!26 Nellie Jerez R.N. - 06/19/2010 8:55 AM CDT ED Pain [...] JEREZ RN - 06/19/2010 9:13 CDT Source: [employer] Document Id: [id number] CDT!26 documented in this encounter ED Notes Nellie Jerez RJayla - 06/19/2010 10:21 AM CDT ED Treatments and Procedures ED Treatments and Procedures Entered On: 06/19/2010 10:21 CDT Performed On: 06/19/2010 10:21 CDT by NELLIE JEREZ RN Oxygen Therapy Oxygen Start Time: 06/19/2010 8:50 CDT Oxygen Therapy: Nasal Cannula Oxygen Stop Time: 06/19/2010 10:21 CDT Oxygen Flow Rate: 4.000L/min NELLIE JEREZ RN - 06/19/2010 10:21 CDT Source: [employer] Document Id: [id number] CDT!6 Radha Valderrama M.D. 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 Physical Examination Vital [...] pain, dyspnea, chest pain R/o PE or DE. Electrocardiogram:The Rhythm is sinus. , [employer] is normal. , STT segments Non specific [...] % 50.9 % Lymph % 35.9 % [place] % 6.2 % Eos % 6.0 % [...] Dyspnea 786.09 (Discharge, Emergency medicine, Medical) Source: [facility] [employer] Document Id: [id number]} documented in this encounter Miscellaneous Notes Miscellaneous - Lea Arreola RJayla - 06/19/2010 4:33 PM CDT Valuables/Belongings Valuables/Belongings Entered On: 06/19/2010 16:33 CDT Performed On: 06/19/2010 16:33 CDT by LEA ARREOLA RN Valuables/Belongings Home Medication Disposition: Sent home with family LEA ARREOLA RN - 06/19/2010 16:33 CDT Source: [employer] Document Id: [id number] CDT!3 Miscellaneous - Lea Arreola RMargaret. - 06/19/2010 1:35 PM CDT Adult Pain [...] ARREOLA RN - 06/19/2010 13:35 CDT Source: [employer] Document Id: [id number] CDT!27 Miscellaneous - Nellie Jerez R.N. - 06/19/2010 11:16 AM CDT Adult Admission History Adult Admission History Entered On: 06/19/2010 11:32 CDT Performed On: 06/19/2010 11:16 CDT by NELLIE JEREZ RN General Info Preferred Name: German Mode of Arrival: Cart Accompanied By: Spouse Preferred Communication Mode: Verbal Information Given By: Patient Languages: Citizen [place] Status: Patient denies NELLIE JEREZ RN - [...] RN;Confirmation: Confirmed ; Classification: Nursing ; Code: 384750 ; Contributor System: [employer] ; Last Updated: 06/18/2010 19:00 CDT ; Life Cycle Date: Unknown ; Life Cycle Status: Active ; Vocabulary: SNOMED CT Diagnoses(Active) Chest pain Date: 06/19/2010 9:07 CDT ; Diagnosis Type: Reason For Visit ; Confirmation: Confirmed ; Classification: Medical ; Clinical Service: Emergency medicine ; Code: PNED ; Probability: 0 ; Diagnosis Code: [id number] Chest pain 786.5 Date: 06/19/2010 11:02 CDT [...] CDT ID Screen Drug Resistant Organism: No ALEX NELLIE Mcknight RN - 06/19/2010 11:16 CDT Nutrition Nutrition [...] Medical History Grid Cataract: Grandparents Glaucoma: Grandparents MERYLLeanne NELLIE Mcknight RN - 06/19/2010 11:16 CDT HEENT Peds Health History Grid Ear Infections: Self ALEX NELLIE Mcknight RN - 06/19/2010 11:16 CDT Cardiovascular Past [...] Gastrointestinal Past Medical Hx Grid Heartburn: Children ALEX NELLIE Mcknight RN - 06/19/2010 11:16 CDT Health History II Musculoskeletal Past Medical Hx Grid Arthritis: Grandparents, Mother Osteoporosis: Mother, Grandparents NELLIE JEREZ RN - 06/19/2010 11:16 CDT Endocrine/Metabolic Past Med Hx Grid Thyroid Disease: Mother, Sibling NELLIE JEREZ RN - 06/19/2010 11:16 CDT Neurological Past Medical History Grid Frequent Headaches: Self, Mother, Sibling Migraines: Self, Mother, Sibling Numbness/Tingling: Self Stroke: Grandparents MERYLLeanneNELLIE RN - 06/19/2010 11:16 CDT Source: [employer] Document Id: [id number] CDT!86 Miscellaneous - Nellie Jerez R.N. - 06/19/2010 11:12 AM CDT Adult Admission Assessment Adult Admission Assessment Entered On: 06/19/2010 11:16 CDT Performed On: 06/19/2010 11:12 CDT by NELLIE JEREZ RN Respiratory Respiratory Patient Stated Symptoms: None Respirations: Unlabored Respiratory Pattern: Regular All Lobes Breath Sounds: Clear Cough: None Sputum Amount: None NELLIE JEREZ RN - 06/19/2010 11:12 CDT Cardiovascular CV Patient Stated Symptoms: Other: pressure Heart Rhythm: Regular Nail Bed Color: [place] Capillary Refill: Less than 2 seconds Edema: [...] 11:12 CDT Maame Coma Eye Opening Response Castella: Spontaneously Best Verbal Response Castella: Oriented Best Motor Response Castella: Obeys simple commands Castella Coma Score: 15 NELLIE JEREZ - 06/19/2010 [...] Genitourinary Patient Stated Symptoms: None NELLIE JEREZ Roxanna - 06/19/2010 11:12 CDT Integumentary Integumentary Patient [...] JEREZ RN - 06/19/2010 11:12 CDT Source: [employer] Document Id: [id number] CDT!111 Miscellaneous - Nellie Jerez RJayla - [...] JEREZ RN - 06/19/2010 11:10 CDT Source: [employer] Document Id: [id number] CDT!11 [place] - Lea Arreola R.N. - 06/19/2010 10:11 AM CDT Valuables/Belongings Valuables/Belongings Entered On: 06/19/2010 10:11 CDT Performed On: 06/19/2010 10:11 CDT by LEA ARREOLA RN Valuables/Belongings Home Medication Disposition: Sent home with family LEA ARREOLA RN - 06/19/2010 10:11 CDT Source: [employer] Document Id: [id number] CDT!3 Miscellaneous - Nellie Jerez RJayla - [...] JEREZ RN - 06/19/2010 11:32 CDT Source: [employer] Document Id: [id number] CDT!14 Miscellaneous - Lea Arreola R.N. - 06/19/2010 8:54 AM CDT Facility Charge [...] with Diagnosis Control: 20 Lynx Visit Level: 91241 Level 5 LEA ARREOLA RN - 06/19/2010 10:11 CDT Source: [employer] Document Id: [id number] CDT!12 documented in this encounter Plan of Treatment Not on filedocumented as of this encounter Visit Diagnoses Not on filedocumented in this encounter
--- OUTSIDE RECORDS SUMMARY | 2022-01-22 10:16 | XMS_ITS | Encounter Summary ---
:1970 Author Organization [facility] Address [address] [place] [address] Care Team Providers Name Role Phone Unavailable Primary Care Provider Unavailable Encounter Details Date Type Department Care Team Description 03/11/2013 Hospital Encounter HX [facility] ME Tiffanie Christiansen, ALVERTO, C.N.P., D. N.P. [address] [place] [address] (Wo rk) Social History Tobacco [...] More than 4 times per year 06/22/2019 taoism services? Do you belong to any clubs [...] Comments Blood Pressure 132/86 03/11/2013 2:12 PM METAL SPONGE MAKING MACHINE OPERATOR Pulse 52 03/11/2013 2:12 PM METAL SPONGE MAKING MACHINE OPERATOR Temperature - - Respiratory Rate 16 03/11/2013 2:12 PM METAL SPONGE MAKING MACHINE OPERATOR Oxygen Saturation - - Inhaled Oxygen Concentration - - Weight 85.8 kg (189 lb 2.5 oz) 03/11/2013 2:12 PM METAL SPONGE MAKING MACHINE OPERATOR Height 173 cm (5' 8.11) 03/11/2013 2:12 PM METAL SPONGE MAKING MACHINE OPERATOR Body Mass Index 28.67 03/11/2013 2:12 PM METAL SPONGE MAKING MACHINE OPERATOR documented in this encounter Miscellaneous Notes Miscellaneous - Tiffanie Christiansen D.N.P., C.N.P. - 03/11/2013 4:01 PM METAL SPONGE MAKING MACHINE OPERATOR Ambulatory Patient Summary [place] [address] Visit Information Name: GERMAN NOVAK [facility] Number: [id number] Current Date: 03/11/2013 16:01:41 Physicians Attending Provider: TIFFANIE CHRISTIANSEN DNP, SOLAR FIELD SERVICE TECHNICIAN Primary Care Provider: PCP, ELSEWHERE GERMAN NOVAK has been given the following [...] vasospasm Mrs. Novak was transferred from the [place] emergency department where he initial troponin was 0.06, and a CK-MB was 5.9. [facility] She was transferred to [facility] for evaluation of her elevation in her cardiac serial biomarkers. Due to her associated symptoms of headache and shortness of breath with the chest pain, a head CT was obtained upon arrival to [facility] and did not reveal any abnormalities. [...] Date Time Location Reason Provider 03/15/2013 14:00 [facility] yearly follow-up Joel Jones MD Attention: Contact your local Clinic if further appointment detail needed. Your Goals/Additional instructions: Source: [facility] POWERCHART Document Id: [id number] L SPONGE MAKING MACHINE OPERATOR Miscellaneous - Tiffanie Christiansen D.N.P., C.N.P. - 03/11/2013 4:01 PM METAL SPONGE MAKING MACHINE OPERATOR Ambulatory Depart Summary [address] [place] [address] Visit Information Name: GERMAN NOVAK [facility] Number: [id number] Visit Date: 03/11/2013 16:01:38 Attending Provider: TIFFANIE CHRISTIANSEN DNP, FNP Primary Care Provider: PCP, DESEAN GERMAN NOVAK [...] in case of emergency. Additional Information: Source: [facility] POWERCHART Document Id: [id number] L SPONGE MAKING MACHINE OPERATOR Miscellaneous - Francisco Medrano L.P.N. - 03/11/2013 2:12 PM CST Adult Nuclear Supervising Operator Intake/History Adult Nuclear Supervising Operator Intake/History Entered On: 03/11/2013 14:18 METAL SPONGE MAKING MACHINE OPERATOR Performed On: 03/11/2013 14:12 METAL SPONGE MAKING MACHINE OPERATOR by FRANCISCO MEDRANO LPN Intake Chief Complaint [...] kg/m2 FRANCISCO MEDRANO LPN - 03/11/2013 14:12 METAL SPONGE MAKING MACHINE OPERATOR General Info Information Given By : Patient Languages : Greek FRANCISCO MEDRANO LPN - 03/11/2013 14:12 METAL SPONGE MAKING MACHINE OPERATOR Subjective Pain Symptoms : No FRANCISCO MEDRANO LPN - 03/11/2013 14:12 METAL SPONGE MAKING MACHINE OPERATOR Dependent Habits Tobacco Use/Currently Using : No Tobacco Use/Last 12 months : No Tobacco Use/Advised to Quit : No Exposure to Tobacco Smoke : Care provider denies smoking in home Smoking Status : Former smoker FRANCISCO MEDRANO LPN - 03/11/2013 14:12 METAL SPONGE MAKING MACHINE OPERATOR Tobacco Use Grid Type : Cigarettes Last Use : 04/09/12 FRANCISCO MEDRANO LPN - 03/11/2013 14:12 METAL SPONGE MAKING MACHINE OPERATOR Alcohol Use : Yes FRANCISCO MEDRANO LPN - 03/11/2013 14:12 METAL SPONGE MAKING MACHINE OPERATOR Caffeine Use Grid Caffeine Use : Current Type : Soft drinks Frequency : Daily Amount : 1 FRANCISCO MEDRANO LPN - 03/11/2013 14:12 METAL SPONGE MAKING MACHINE OPERATOR Recreational Drug Use Grid Drug Use : None FRANCISCO MEDRANO LPN - 03/11/2013 14:12 METAL SPONGE MAKING MACHINE OPERATOR Source: [employer] Document Id: [id number] METAL SPONGE MAKING MACHINE OPERATOR!43 L SPONGE MAKING MACHINE OPERATOR Miscellaneous - Francisco Medrano LSonjaPSonjaNSonja - 03/11/2013 2:12 PM CST Health Assessment Health Assessment Entered On: 03/11/2013 14:18 METAL SPONGE MAKING MACHINE OPERATOR Performed On: 03/11/2013 14:12 METAL SPONGE MAKING MACHINE OPERATOR by FRANCISCO MEDRANO LPN Health Assessment Complete Health Assessment Complete or Modified : Annual Health Assessment Annual Health Assessment Completed : Yes FRANCISCO MEDRANO LPN - 03/11/2013 14:12 METAL SPONGE MAKING MACHINE OPERATOR Nutrition Nutrition Risk Factors by History Adult : None FRANCISCO MEDRANO LPN - 03/11/2013 14:12 METAL SPONGE MAKING MACHINE OPERATOR Functional Current Daily Living Assistance : None FRANCISCO MEDRANO LPN - 03/11/2013 14:12 METAL SPONGE MAKING MACHINE OPERATOR Dependent Habits Tobacco Use/Currently Using : No Exposure to Tobacco Smoke : Care provider denies smoking in home Smoking Status : Former smoker FRANCISCO MEDRANO LPN - 03/11/2013 14:12 METAL SPONGE MAKING MACHINE OPERATOR Tobacco Use Grid Type : Cigarettes Last Use : 04/09/12 FRANCISCO MEDRANO LPN - 03/11/2013 14:12 METAL SPONGE MAKING MACHINE OPERATOR Caffeine Use Grid Caffeine Use : Current Type : Soft drinks Frequency : Daily Amount : 1 FRANCISCO MEDRNAO LPN - 03/11/2013 14:12 METAL SPONGE MAKING MACHINE OPERATOR Recreational Drug Use Grid Drug Use : None FRANCISCO MEDRANO LPN - 03/11/2013 14:12 METAL SPONGE MAKING MACHINE OPERATOR Psychosocial Domestic Abuse Concerns : None FRANCISCO MEDRANO LPN - 03/11/2013 14:12 METAL SPONGE MAKING MACHINE OPERATOR Advance Directive Advanced Directives : No Advance Directive Additional Information : No FRANCISCO MEDRANO LPN - 03/11/2013 14:12 METAL SPONGE MAKING MACHINE OPERATOR Educ Needs Learning Style Preference Adult Grid Patient : None Family : None FRANCISCO MEDRANO LPN - 03/11/2013 14:12 METAL SPONGE MAKING MACHINE OPERATOR [facility] Document Id: [id number] METAL SPONGE MAKING MACHINE OPERATOR!34 L SPONGE MAKING MACHINE OPERATOR documented in this encounter Plan of Treatment Not on filedocumented as of this encounter Visit Diagnoses Not on filedocumented in this encounter Additional Health Concerns Assessment Noted Time PHQ-9 Depression Total Score: 10 03/11/2013 2:22 PM CS T documented as of this encounter
--- OUTSIDE RECORDS SUMMARY | 2022-01-22 10:16 | XMS_ITS | Encounter Summary ---
:1970 Author Organization [facility] Address [address] [place] [address] Care Team Providers Name Role Phone Unavailable Primary Care Provider Unavailable Encounter Details Date Type Department Care Team Description 07/30/2012 Hospital Encounter [facility] Javan Mcdonald P.A.-C. [address] [place] [address] (Wo rk) Social History Tobacco [...] 06/22/2019 organizations such as yarsanism groups, unions, fraternal or athletic groups, or [...] Body Mass Index 27.67 04/24/2012 9:04 AM NURSING TEACHER documented in this encounter Progress Notes Estephanie Ellington - 07/30/2012 5:20 PM CDT [id number] CHIEF COMPLAINT/REASON FOR VISIT This is a 41-year-old female seen today concerned of dog scratches on her left forearm. HISTORY OF PRESENT ILLNESS She states that she was scratched yesterday. 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 [...] ESTEPHANIE ELLINGTON On: 08/04/2012 12:11 PM Source: [facility] MHSDOLBEYNONRADSYS Document Id: [id number] documented in this encounter Miscellaneous Notes Miscellaneous - Estephanie Ellington - 07/30/2012 7:58 PM CDT Ambulatory Patient Summary [address] [place] [address] Visit Information Name: GERMAN NOVAK [facility] Number: [id number] Current Date: 07/30/2012 19:58:15 Physicians Attending Provider: ESTEPHANIE ELLINGTON Primary Care Provider: LAVELL BUCHANAN RN, FOOD PORTER Your Medications Here is a list of [...] No Appointments found Your Goals/Additional instructions: Source: [facility] POWERCHART Document Id: [id number] Miscellaneous - Estephanie Ellington - 07/30/2012 7:58 PM CDT Ambulatory Depart Summary [address] [place] [address] Visit Information Name: GERMAN NOVAK [facility] Number: [id number] Visit Date: 07/30/2012 19:58:14 Attending Provider: ESTEPHANIE ELLINGTON Primary Care Provider: LAVELL BUCHANAN RN, FOOD PORTER GERMAN NOVAK has been given the following [...] your provider for clarification. Additional Information: Source: [facility] POWERCHART Document Id: [id number] Miscellaneous - Lori Coyle, L.P.N. - 07/30/2012 5:33 PM CDT Adult Inspection Machine Tender Intake/History Adult Inspection Machine Tender Intake/History Entered On: 07/30/2012 17:36 CDT Performed On: 07/30/2012 17:33 CDT by LORI GOYAL MUSICAL INSTRUMENT SUPERVISOR Intake Chief Complaint : scratched yesterday on [...] Clinic : 82.8 kg SANDY GOYALFloyd Marie [facility] - 07/30/2012 17:33 CDT General Info Information Given By : Patient Languages : Serbian LORI GOYAL [facility] - 07/30/2012 17:33 CDT Subjective Pain Symptoms : Yes LORI GOYAL MUSICAL INSTRUMENT SUPERVISOR - 07/30/2012 17:33 CDT Pain Pain Assessment Grid Pain 1 Location : Other: left forearm Intensity : 1 SANDY GOYALY Cynthia [facility] - 07/30/2012 17:33 CDT Dependent Habits Tobacco Use/Currently Using : No Exposure to Tobacco Smoke : Care provider denies smoking in home Smoking Status : Former smoker KAITY GOYALJENNIFER Marie [facility] - 07/30/2012 17:33 CDT Tobacco Use Grid Type : Cigarettes Last Use : 04/09/12 KAITY GOYALJENNIFER Marie [facility] - 07/30/2012 17:33 CDT Alcohol Use : Yes JAY JAY LORI Marie [facility] - 07/30/2012 17:33 CDT Caffeine Use Grid Caffeine Use : Current Type : Soft drinks Frequency : Daily Amount : 1 SANDY GOYALFloyd Marie [facility] - 07/30/2012 17:33 CDT Recreational Drug Use Grid Drug Use : None KAITY GOYALJENNIFER Marie [facility] - 07/30/2012 17:33 CDT Source: [employer] Document Id: [id number]!45 documented in this encounter Plan of Treatment Not on filedocumented as of this encounter Visit Diagnoses Not on filedocumented in this encounter Additional Health Concerns Assessment Noted Time PHQ-9 Depression Total Score: 4 04/24/2012 3:07 PM NURSING TEACHER documented as of this encounter
--- OUTSIDE RECORDS SUMMARY | 2022-01-22 10:16 | XMS_ITS | Encounter Summary ---
:1970 Author Organization [facility] Address [address] [place] [address] Care Team Providers Name Role Phone Unavailable Primary Care Provider Unavailable Encounter Details Date Type Department Care Team Description 10/19/2007 - [facility] [place], 10/20/2007 INPT/OBSRV M.D. [address] [place] [phone] (Wo rk) Social [...] this encounter Miscellaneous Notes Miscellaneous - Stiven Garza, RSonjaN. - 02/26/2013 8:53 AM CST Med Management Document Contains Addenda Addendum by STIVEN GARZA RN on 26 February 2013 16:01:16 TICKET PULLER noted Addendum by LAVELL BUCHANAN RN, SYSTEMS INTEGRATION ENGINEER on 26 February 2013 12:25:19 TICKET PULLER Approved with modifications: Order:FLUoxetine (Prozac 40 mg oral capsule) 1 cap(s) PO Daily Qty: 90 cap(s) Refills: 0 Substitutions Allowed Route To Pharmacy - [facility] Signed by LAVELL BUCHANAN RN, SYSTEMS INTEGRATION ENGINEER 02/26/2013 12:25:00 From: STIVEN GARZA RN To: LAVELL BUCHANAN RN, SYSTEMS INTEGRATION ENGINEER; STIVEN GARZA RN; Sent: 02/26/2013 08:53:31 TICKET PULLER Subject: Med Management On hold pending signature Order:FLUoxetine (Prozac 40 mg oral capsule) 1 cap(s) PO Daily Qty: 30 cap(s) Refills: 11 Substitutions Allowed Route To Pharmacy - [facility] review refill. Karen Source: [employer] Document Id: [id number] Electronically signed by Conversion, [employer] Public Health Aides Teacher [id number] at 08/12/2016 11:25 AM CDT Miscellaneous - Molly Gomez M.D. - 05/01/2012 9:12 AM TICKET PULLER biopsy results From: MOLLY MONTIEL MD To: MOLLY MONTIEL MD; Sent: 05/01/2012 09:12:10 TICKET PULLER Subject: biopsy results Spoke with Laura re: her biopsy results which showed a seborrheic keratosis. Discussed that this is noncancerous. Patient reports that it is healing well. She has no other concerns. Source: [employer] Document Id: [id number] Electronically signed by Conversion, [facility] Public Health Aides Teacher [id number] at 08/12/2016 11:25 AM CDT documented in this encounter Plan of Treatment Not on filedocumented as of this encounter Visit Diagnoses Not on filedocumented in this encounter
--- OUTSIDE RECORDS SUMMARY | 2022-01-22 10:16 | XMS_ITS | Encounter Summary ---
:1970 Author Organization [facility] Address [address] [place] [address] Care Team Providers Name Role Phone Unavailable [...] 21-Jun-2010 08:31:00 ??Exam: US Abdomen Limited Indications: [id number] - Abd Limite d - chest pain [...] Electronically signed by: ?? Gerald Simon MD [phone] ([id number]) 21-Jun-2010 08:36 Procedure Note Naveen Simon M.D. - 06/07/2017For matting of this note might be different from the original. 21-Jun-2010 08:31:00 Exam: US Abdomen [facility] Indications: [id number] - Abd Limite d - chest pain [...] diameter. Electronically signed by: Gerald Simon MD [phone] ([id number]) 21-Jun-2010 08:36 Butch Patton M.D. IMMary US PROCEDURES documented in this encounter Visit Diagnoses Not on filedocumented in this encounter
--- OUTSIDE RECORDS SUMMARY | 2022-01-22 10:16 | XMS_ITS | Encounter Summary ---
:1970 Author Organization [facility] Address [address] [place] [address] Care Team Providers Name Role Phone Unavailable Primary Care Provider Unavailable Encounter Details Date Type Department Care Team Description 02/03/2012 Hospital Encounter HX NO MAPPING Akanksha Ladd M.D. [address] [place], [place] [phone] (Wo rk) Social History [...] Comments Blood Pressure 122/80 02/03/2012 2:52 PM SURGERY MANAGER Pulse 60 02/03/2012 2:52 PM SURGERY MANAGER Temperature - - Respiratory Rate - - Oxygen Saturation - - Inhaled Oxygen Concentration - - Weight 84.6 kg (186 lb 8.2 oz) 02/03/2012 2:52 PM SURGERY MANAGER Height 172 cm (5' 7.72) 02/03/2012 2:52 PM SURGERY MANAGER Body Mass Index 28.6 02/03/2012 2:52 PM SURGERY MANAGER documented in this encounter Consult Notes Joel [...] with her family. 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 No use of tobacco or alcohol. FAMILY [...] LADD MD On: 06/29/2012 03:19 PM Source: [facility] MHSDOLBEYNONRADSYS Document Id: [id number] documented in this encounter Miscellaneous Notes Miscellaneous - Maxime Varghese RMargaret. - 02/03/2012 2:52 PM CST Adult Fur Pointer Intake/History Adult Fur Pointer Intake/History Entered On: 02/03/2012 14:55 SURGERY MANAGER Performed On: 02/03/2012 14:52 SURGERY MANAGER by MAXIME VARGHESE strategic client executive Chief Complaint : Here to review meds [...] 28.60kg/m2 MAXIME VARGHESE RN - 02/03/2012 14:52 SURGERY MANAGER General Info Information Given By : Patient Preferred Communication Mode : Verbal MAXIME VARGHESE RN - 02/03/2012 14:52 SURGERY MANAGER Subjective Pain Symptoms : No MAXIME VARGHESE RN - 02/03/2012 14:52 SURGERY MANAGER Dependent Habits Tobacco Use/Currently Using : No Smoking Status : Former smoker MAXIME VARGHESE RN - 02/03/2012 14:52 SURGERY MANAGER Tobacco Use Grid Type : Cigarettes Last Use : 06/18/2010 MAXIME VARGHESE RN - 02/03/2012 14:52 SURGERY MANAGER Alcohol Use : Yes MAXIME VARGHESE RN - 02/03/2012 14:52 SURGERY MANAGER Caffeine Use Grid Caffeine Use : Current Type : Soft drinks Frequency : Daily Amount : 1 MAXIME VARGHESE RN - 02/03/2012 14:52 SURGERY MANAGER Allergy Allergies (Active) morphine Estimated Onset Date: Unspecified ; Created By: RAVEN DELUNA LPN; Reaction Status: Active ; Category: Drug ; Substance: morphine ; Type: Allergy ; Updated By: RAVEN DELUNA LPN; Reviewed Date: 02/03/2012 14:52 SURGERY MANAGER narcotic analgesics Estimated Onset Date: Unspecified ; Reactions: itch ; Created By: NELLIE JOHNSON RN; Reaction Status: Active ; Category: Drug ; Substance: narcotic analgesics ; Type: Sensitivity ; Updated By: NELLIE JOHNSON RN; Reviewed Date: 02/03/2012 14:52 SURGERY MANAGER Percocet 5/325 Estimated Onset Date: Unspecified ; Created By: RAVEN DELUNA LPN; Reaction Status:Active ; Category: Drug ; Substance: Percocet 5/325 ; Type: Allergy ; Updated By: RAVEN DELUNA LPN; Reviewed Date: 02/03/2012 14:52 SURGERY MANAGER Toradol Estimated Onset Date: Unspecified ; Created By: RAVEN DELUNA LPN; Reaction Status: Active; Category: Drug ; Substance: Toradol ; Type: Allergy ; Updated By: RAVEN DELUNA LPN; Reviewed Date: 02/03/2012 14:52 SURGERY MANAGER Source: [facility] [employer] Document Id: [id number] ERY MANAGER documented in this encounter Plan of Treatment Not on filedocumented as of this encounter Visit Diagnoses Not on filedocumented in this encounter
--- OUTSIDE RECORDS SUMMARY | 2022-01-22 10:16 | XMS_ITS | Encounter Summary ---
:1970 Author Organization [facility] Address [address] [place] [address] Care Team Providers Name Role Phone Unavailable Primary Care Provider Unavailable Encounter Details Date Type Department Care Team Description 06/21/2009 Hospital Encounter HX [facility] INPT/OBSRV Alaina Larkin, P.AArunC. [address] [place] [address] (Wo rk) Social History Tobacco [...] or relatives? How often do you attend yarsani or More than 4 times per year 06/22/2019 judaism services? Do you belong to any clubs or No 06/22/2019 organizations such as yarsani groups, unions, fraternal or athletic groups, or [...]
--- OUTSIDE RECORDS SUMMARY | 2022-01-22 10:16 | XMS_ITS | Encounter Summary ---
:1970 Author Organization [facility] Address [address] [place] [address] Care Team Providers Name Role Phone Unavailable Primary Care Provider Unavailable Encounter Details Date Type Department Care Team Description 04/24/2012 Hospital Encounter HX [facility] Nicky Llanes M.D. [address] [place] [address] ERNESTO Ramirez [phone] (Wo rk) Social History Tobacco Use Types [...] or relatives? How often do you attend moravian or More than 4 times per year 06/22/2019 sabianism services? Do you belong to any clubs or No 06/22/2019 organizations such as moravian groups, unions, fraternal or athletic groups, or [...] Comments Blood Pressure 116/72 04/24/2012 9:04 AM SUPPLIER SPECIALIST Pulse 64 04/24/2012 9:04 AM SUPPLIER SPECIALIST Temperature - - Respiratory Rate 16 04/24/2012 9:04 AM SUPPLIER SPECIALIST Oxygen Saturation - - Inhaled Oxygen Concentration - - Weight 83.7 kg (184 lb 8.4 oz) 04/24/2012 9:04 AM SUPPLIER SPECIALIST Height 173 cm (5' 8.11) 04/24/2012 9:04 AM SUPPLIER SPECIALIST Body Mass Index 27.97 04/24/2012 9:04 AM SUPPLIER SPECIALIST documented in this encounter Progress Notes Nicky Gomez M.D. - 04/24/2012 8:37 AM CST [id number] CHIEF COMPLAINT/REASON FOR VISIT Follow-up mood and [...] reports that the spot to her right oriental orthodox seems to be getting a little bit [...] are adequate. SKIN: Over the patient's right oriental orthodox within her hairline, there is a brown, raised lesion that is approximately 7 mm x 8 mm. It does have some darker freckles in it and hairs growing through it. Margins are fairly distinct. PROCEDURE: Shave biopsy of the right oriental orthodox. We discussed the procedure today including risks of bleeding, infection and scarring. We also discussed different options for removal stating that the shave biopsy would likely be best to leave the least amount of scar. Patient voiced understanding. Consent was signed. Mccracken protocol was followed.The entirety of the procedure [...] of the content Nicky Manzo M.D./latasha DOCID: [id number] Electronically Signed By: NICKY MONTIEL MD On: 05/01/2012 07:37 AM Modified by and Electronically Signed by: NICKY MONTIEL MD On: 05/01/2012 07:36 AM Source: [facility] MHSDOLBEYNONRADSYS Document Id: [id number] LIER SPECIALIST documented in this encounter Miscellaneous Notes Miscellaneous - Rebecca Granados L.PSonjaN. - 04/24/2012 3:07 PM CST PHQ-9 PHQ-9 Entered On: 04/24/2012 15:08 SUPPLIER SPECIALIST Performed On: 04/24/2012 15:07 SUPPLIER SPECIALIST by REBECCA GRANADOS ADMINISTRATION PHYSICIAN, RT PHQ-9 Little interest or pleasure in [...] REBECCA GRANADOS LPN, RT - 04/24/2012 15:07 SUPPLIER SPECIALIST Source: [facility] [employer] Document Id: [id number] LIER SPECIALIST Miscellaneous - Nicky Gomez M.D. - 04/24/2012 1:22 PM SUPPLIER SPECIALIST Ambulatory Patient Summary [address] [address] Visit Information Name: GERMAN NOVAK [facility] Number: [id number] Current Date: 04/24/2012 13:22:57 Physicians Attending Provider: NICKY MONTIEL MD Primary Care Provider: LAVELL BUCHANAN RN, AUTOMOBILE RADIO REPAIRER Your Medications Here is a list of [...] No Appointments found Your Goals/Additional instructions: [facility] Document Id: [id number] LIER SPECIALIST Miscellaneous - Nicky Gomez M.D. - 04/24/2012 1:22 PM SUPPLIER SPECIALIST Ambulatory Depart Summary [address] [address] Visit Information Name: GERMAN NOVAK [facility] Number: [id number] Visit Date: 04/24/2012 13:22:57 Attending Provider: NICKY MONTIEL MD Primary Care Provider: LAVELL BUCHANAN RN, AUTOMOBILE RADIO REPAIRER GERMAN NOVAK has been given the following [...] your provider for clarification. Additional Information: Source: [facility] TechnologyCH[facility] Document Id: [id number] LIER SPECIALIST Miscellaneous - Damaris Colindres L.P.N. - 04/24/2012 9:04 AM CST Adult Sleeping Car Porter Intake/History Adult Sleeping Car Porter Intake/History Entered On: 04/24/2012 9:10 SUPPLIER SPECIALIST Performed On: 04/24/2012 9:04 SUPPLIER SPECIALIST by DAMARIS COLINDRES LPN Intake Chief Complaint : F/U on medication increase, check spot on right oriental orthodox area, Floatlight Loading Supervisor took offall medication, wants cholesterol checked, Temperature [...] 27.97kg/m2 DAMARIS COLINDRES LPN - 04/24/2012 9:04 SUPPLIER SPECIALIST General Info Information Given By : Patient Languages : Kyrgyz DAMARIS COLINDRES LPN - 04/24/2012 9:04 SUPPLIER SPECIALIST Subjective Pain Symptoms : No DAMARIS COLINDRES LPN - 04/24/2012 9:04 SUPPLIER SPECIALIST Dependent Habits Tobacco Use/Currently Using : No Tobacco Use/Last 12 months : No Tobacco Use/Advised to Quit : No Exposure to Tobacco Smoke : Care provider denies smoking in home Smoking Status : Former smoker DAMARIS COLINDRES LPN - 04/24/2012 9:04 SUPPLIER SPECIALIST Tobacco Use Grid Type : Cigarettes Last Use : 04/09/12 DAMARIS COLINDRES LPN - 04/24/2012 9:04 SUPPLIER SPECIALIST Alcohol Use : Yes DAMARIS COLINDRES LPN - 04/24/2012 9:04 SUPPLIER SPECIALIST Caffeine Use Grid Caffeine Use : Current Type : Soft drinks Frequency : Daily Amount : 1 DAMARIS COLINDRES LPN - 04/24/2012 9:04 SUPPLIER SPECIALIST Recreational Drug Use Grid Drug Use : None DAMARIS COLINDRES LPN - 04/24/2012 9:04 SUPPLIER SPECIALIST Allergy Allergies (Active) morphine Estimated Onset Date: Unspecified ; Created By: RAVEN DELUNA LPN; Reaction Status: Active ; Category: Drug ; Substance: morphine ; Type: Allergy ; Updated By: RAVEN DELUNA LPN; Reviewed Date: 04/24/2012 9:03 SUPPLIER SPECIALIST narcotic analgesics Estimated Onset Date: Unspecified ; Reactions: itch ; Created By: NELLIE JOHNSON RN; Reaction Status: Active ; Category: Drug ; Substance: narcotic analgesics ; Type: Sensitivity ; Updated By: NELLIE JOHNSON RN; Reviewed Date: 04/24/2012 9:03 SUPPLIER SPECIALIST Percocet 5/325 Estimated Onset Date: Unspecified ; Created By: RAVEN DELUNA LPN; Reaction Status:Active ; Category: Drug ; Substance: Percocet 5/325 ; Type: Allergy ; Updated By: RAVEN DELUNA LPN; Reviewed Date: 04/24/2012 9:03 SUPPLIER SPECIALIST Toradol Estimated Onset Date: Unspecified ; Created By: RAVEN DELUNA LPN; Reaction Status: Active; Category: Drug ; Substance: Toradol ; Type: Allergy ; Updated By: RAVEN DELUNA LPN; Reviewed Date: 04/24/2012 9:03 SUPPLIER SPECIALIST Source: [facility] [employer] Document Id: [id number] LIER SPECIALIST Miscellaneous - Barbara Mao N.P. - 04/17/2012 8:49 AM CST School or Work Excuse Document Has Been Updated School or Work Excuse Entered On: 04/17/2012 8:49 SUPPLIER SPECIALIST Performed On: 04/17/2012 8:49 SUPPLIER SPECIALIST by BARBARA MAO NP School or Work Excuse Date Patient Seen : 04/10/2012 SUPPLIER SPECIALIST School or Work Restrictions : No Restrictions BARBARA MAO NP - 04/17/2012 8:49 SUPPLIER SPECIALIST Date of Return to School/Work Without Restrictions : 04/11/2012 SUPPLIER SPECIALIST BARBARA MAO NP - 04/17/2012 8:50 SUPPLIER SPECIALIST Source: [facility] [employer] Document Id: [id number] LIER SPECIALIST Miscellaneous - Alyce Robbins - 04/14/2012 12:31 PM CST General Message Document Contains Addenda Addendum by ALYCE ROBBINS RN on 20 April 2012 15:08:53 SUPPLIER SPECIALIST Thank you. Addendum by SHAWN TALLEY RN on 17 April 2012 09:33:26 SUPPLIER SPECIALIST This was faxed, pt notified by message on VM Addendum by SHAWN TALLEY RN on 17 April 2012 08:38:38 SUPPLIER SPECIALIST From: SHAWN TALLEY RN To: BARBARA MAO MORGUE LIBRARIAN; SHAWN TALLEY RN; Sent: 04/17/2012 08:38:38 SUPPLIER SPECIALIST Subject: FW: General Message Sent to you as provider Pt requests a note that says she was seen in the ED on 04/10/12 and that she is okay to return to work. Would you be willing to write this for her? Addendum by SHAWN TALLEY RN on 15 April 2012 16:40:12 SUPPLIER SPECIALIST From: SHAWN TALLEY RN To: ALYCE ROBBINS RN; Sent: 04/15/2012 16:40:12 SUPPLIER SPECIALIST Subject: FW: General Message Pt requests that when this note is complete that it goes to Anna at fax [phone]. Pt requests call when done [phone]. Addendum by NICKY MONTIEL MD on 15 April 2012 12:59:58 SUPPLIER SPECIALIST From: NICKY MONTIEL MD To: ALYCE ROBBINS RN; Sent: 04/15/2012 12:59:58 SUPPLIER SPECIALIST Subject: RE: General Message Jen. Bill I have had no time to read that note to address this. Nicky Addendum by SHAWN TALLEY RN on 15 April 2012 10:03:04 SUPPLIER SPECIALIST From: SHAWN TALLEY RN To: RESHMA LYNNE III, MD; Sent: 04/15/2012 10:03:04 SUPPLIER SPECIALIST Subject: FW: General Message Sent to you [...] ROBBINS RN on 14 April 2012 13:28:17 SUPPLIER SPECIALIST From: ALYCE ROBBINS RN To: NICKY MONTIEL MD; Sent: 04/14/2012 13:28:17 SUPPLIER SPECIALIST Subject: FW: General Message Bill, please see Dr Cardenas's dictation from 04/10/2012. Let me know if this is not sufficient. Thanks. Addendum by NICKY MONTIEL MD on 14 April 2012 13:17:11 SUPPLIER SPECIALIST From: NICKY MONTIEL MD To: ALYCE ROBBINS RN; Sent: 04/14/2012 13:17:11 SUPPLIER SPECIALIST Subject: RE: General Message I do not know why she was seen in the ED or when she was seen. I need more information please. Nicky Alberts From: ALYCE ROBBINS RN To: NICKY MONTIEL MD; Sent: 04/14/2012 12:31:17 SUPPLIER SPECIALIST Subject: General Message Seen in ED with Dr Cardenas who is not here today. Says is switching to you as PCP. Needs return to work note. Prefers include: Seen in ED but okay to return to work without restrictions. Patient will collect, needs it for work tomorrow (Wed). Can you do this for her? Source: [facility] [employer] Document Id: [id number] Electronically signed by Conversion, [facility] Grease Remover [id number] at 08/07/2016 7:31 PM CDT documented in this encounter Plan of Treatment Not on filedocumented as of this encounter Visit Diagnoses Not on filedocumented in this encounter Additional Health Concerns Assessment Noted Time PHQ-9 Depression Total Score: 4 04/24/2012 3:07 PM SUPPLIER SPECIALIST documented as of this encounter
--- OUTSIDE RECORDS SUMMARY | 2022-01-22 10:16 | XMS_ITS | Encounter Summary ---
:1970 Author Organization [facility] Address [address] [place] [address] Care Team Providers Name Role Phone Unavailable Primary Care Provider Unavailable Encounter Details Date Type Department Care Team Description 01/07/2011 Hospital Encounter HX NO MAPPING Akanksha Ladd M.D. [address] [place], [place] [phone] (Wo rk) Social History [...] home with her family. 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 No use of tobacco or alcohol. FAMILY [...] LADD MD On: 06/13/2011 09:42 AM Source: [facility] MHSDOLBEYNONRADSYS Document Id: [id number] documented in this encounter Miscellaneous Notes Miscellaneous - Maxime Varghese R.N. - 01/07/2011 1:50 PM CDT Adult Hotel Registration Clerk Intake/History Adult Hotel Registration Clerk Intake/History Entered On: 01/07/2011 13:55 CDT Performed On: 01/07/2011 13:50 CDT by MAXIME VARGHESE carbon brusher assembler Chief Complaint : Here for follow -up [...] Preferred Communication Mode : Verbal Languages : Beninese MAXIME VARGHESE RN - 01/07/2011 13:50 CDT [...] drinks Frequency : Daily Amount : 1 MXAIME VARGHESE RN - 01/07/2011 13:50 CDT Allergy [...] VARGHESE RN - 01/07/2011 13:50 CDT Source: [employer] Document Id: [id number] documented in this encounter Plan of Treatment Not on filedocumented as of this encounter Visit Diagnoses Not on filedocumented in this encounter
--- OUTSIDE RECORDS SUMMARY | 2022-01-22 10:16 | XMS_ITS | Encounter Summary ---
:1970 Author Organization [facility] Address [address] [place] [address] Care Team Providers Name Role Phone Unavailable Primary Care Provider Unavailable Encounter Details Date Type Department Care Team Description 02/14/2012 Hospital Encounter [facility] Nicky Llanes M.D. [address] [place] [address] ERNESTO Ramirez [phone] (Wo rk) Social History Tobacco Use Types [...] Comments Blood Pressure 120/74 02/14/2012 1:18 PM INTERNATIONAL EXCHANGE COORDINATOR Pulse 68 02/14/2012 1:18 PM INTERNATIONAL EXCHANGE COORDINATOR Temperature - - Respiratory Rate 16 02/14/2012 1:18 PM INTERNATIONAL EXCHANGE COORDINATOR Oxygen Saturation - - Inhaled Oxygen Concentration - - Weight 84.2 kg (185 lb 10 oz) 02/14/2012 1:18 PM INTERNATIONAL EXCHANGE COORDINATOR Height 173.3 cm (5' 8.23) 02/14/2012 1:18 PM INTERNATIONAL EXCHANGE COORDINATOR Body Mass Index 28.04 02/14/2012 1:18 PM INTERNATIONAL EXCHANGE COORDINATOR documented in this encounter Progress Notes Nicky Gomez M.D. - 02/14/2012 1:11 PM CST [id number] CHIEF COMPLAINT/REASON FOR VISIT 1. Follow-up labs. 2. Right skin lesion. HISTORY OF PRESENT ILLNESS German is a 41-year-old female who recently saw her grad intern and had some complaints about hot flashes, [...] has noticed a mole in her right jainism in the hairline for awhile now and [...] acute distress. SKIN: In the patient's right jainism there is a well-circumscribed, minimally asymmetric, mildly [...] effect. 2. Suspect seborrheic keratosis to right jainism. At this time I think this lesion [...] expressed understanding of the content Nicky Manzo M.D./[facility] Electronically Signed By: NICKY MONTIEL MD On: 02/20/2012 09:48 AM Modified by and Electronically Signed by: NICKY MONTIEL MD On: 02/20/2012 09:48 AM Source: [facility] MHSDOLBEYNONRADSYS Document Id: [id number] RNATIONAL EXCHANGE COORDINATOR documented in this encounter Miscellaneous Notes Miscellaneous - Nicky Gomez M.D. - 02/14/2012 1:52 PM INTERNATIONAL EXCHANGE COORDINATOR Ambulatory Patient Summary [address] [address] Visit Information Name: GERMAN NOVAK [facility] Number: [id number] Current Date: 02/14/2012 13:52:23 Physicians Attending Provider: NICKY MONTIEL MD Primary Care Provider: LAVELL BUCHANAN RN, TELEPHONE STATION INSTALLER Your Medications Here is a list of [...] No Appointments found Your Goals/Additional instructions: Source: [facility] POWERCHART Document Id: [id number] RNATIONAL EXCHANGE COORDINATOR Miscellaneous - Nicky Gomez M.D. - 02/14/2012 1:52 PM INTERNATIONAL EXCHANGE COORDINATOR Ambulatory Depart Summary [address] [address] Visit Information Name: GERMAN NOVAK [facility] Number: [id number] Visit Date: 02/14/2012 13:52:22 Attending Provider: NICKY MONTIEL MD Primary Care Provider: LAVELL BUCHANAN RN, TELEPHONE STATION INSTALLER MURALI GERMAN STEINER has been given the [...] your provider for clarification. Additional Information: Source: [facility] P[employer] Document Id: [id number] RNATIONAL EXCHANGE COORDINATOR Miscellaneous - Nicky Gomez M.D. - 02/14/2012 1:41 PM INTERNATIONAL EXCHANGE COORDINATOR PHQ-9 PHQ-9 Entered On: 02/14/2012 13:43 INTERNATIONAL EXCHANGE COORDINATOR Performed On: 02/14/2012 13:41 INTERNATIONAL EXCHANGE COORDINATOR by NICKY MONTIEL MD PHQ-9 Little interest [...] dealing with others : Somewhat difficult NICKY MONTIEL S MD - 02/14/2012 13:41 INTERNATIONAL EXCHANGE COORDINATOR Source: [facility] [employer] Document Id: [id number] RNATIONAL EXCHANGE COORDINATOR Miscellaneous - Damaris Medrano L.P.N. - 02/14/2012 1:18 PM CST Adult Real Estate Appraiser Supervisor Intake/History Adult Real Estate Appraiser Supervisor Intake/History Entered On: 02/14/2012 13:23 INTERNATIONAL EXCHANGE COORDINATOR Performed On: 02/14/2012 13:18 INTERNATIONAL EXCHANGE COORDINATOR by DAMARIS MEDRANO LPN Intake Chief Complaint [...] 28.04kg/m2 DAMARIS MEDRANO LPN - 02/14/2012 13:18 INTERNATIONAL EXCHANGE COORDINATOR Subjective Pain Symptoms : No DAMARIS MEDRANO LPN - 02/14/2012 13:18 INTERNATIONAL EXCHANGE COORDINATOR Dependent Habits Tobacco Use/Currently Using : No Tobacco Use/Last 12 months : No Tobacco Use/Advised to Quit : No Exposure to Tobacco Smoke : Care provider denies smoking in home Smoking Status : Former smoker DAMARIS MEDRANO LPN - 02/14/2012 13:18 INTERNATIONAL EXCHANGE COORDINATOR Tobacco Use Grid Type : Cigarettes Last Use : 06/18/2010 DAMRAIS MEDRANO LPN - 02/14/2012 13:18 INTERNATIONAL EXCHANGE COORDINATOR Alcohol Use : Yes DAMARIS MEDRANO LPN - 02/14/2012 13:18 INTERNATIONAL EXCHANGE COORDINATOR Caffeine Use Grid Caffeine Use : Current Type : Soft drinks Frequency : Daily Amount : 1 DAMARIS MEDRANO LPN - 02/14/2012 13:18 INTERNATIONAL EXCHANGE COORDINATOR Recreational Drug Use Grid Drug Use : None DAMARIS MEDRANO LPN - 02/14/2012 13:18 INTERNATIONAL EXCHANGE COORDINATOR Allergy Allergies (Active) morphine Estimated Onset Date: Unspecified ; Created By: RAVEN DELUNA LPN; Reaction Status: Active ; Category: Drug ; Substance: morphine ; Type: Allergy ; Updated By: RAVEN DELUNA LPN; Reviewed Date: 02/14/2012 13:17 INTERNATIONAL EXCHANGE COORDINATOR narcotic analgesics Estimated Onset Date: Unspecified ; Reactions: itch ; Created By: NELLIE JOHNSON RN; Reaction Status: Active ; Category: Drug ; Substance: narcotic analgesics ; Type: Sensitivity ; Updated By: NELLIE JOHNSON RN; Reviewed Date: 02/14/2012 13:17 INTERNATIONAL EXCHANGE COORDINATOR Percocet 5/325 Estimated Onset Date: Unspecified ; Created By: RAVEN DELUNA LPN; Reaction Status:Active ; Category: Drug ; Substance: Percocet 5/325 ; Type: Allergy ; Updated By: RAVEN DELUNA LPN; Reviewed Date: 02/14/2012 13:17 INTERNATIONAL EXCHANGE COORDINATOR Toradol Estimated Onset Date: Unspecified ; Created By: RAVEN DELUNA LPN; Reaction Status: Active; Category: Drug ; Substance: Toradol ; Type: Allergy ; Updated By: RAVEN DELUNA LPN; Reviewed Date: 02/14/2012 13:17 INTERNATIONAL EXCHANGE COORDINATOR Source: [facility] [employer] Document Id: [id number] RNATIONAL EXCHANGE COORDINATOR Miscellaneous - Damaris Medrano LSonjaP.N. - 02/14/2012 1:18 PM CST Health Assessment Health Assessment Entered On: 02/14/2012 13:24 INTERNATIONAL EXCHANGE COORDINATOR Performed On: 02/14/2012 13:18 INTERNATIONAL EXCHANGE COORDINATOR by DAMARIS MEDRANO LPN Health Assessment Complete Health Assessment Complete or Modified : Annual Health Assessment Annual Health Assessment Completed : Yes DAMARIS MEDRANO LPN - 02/14/2012 13:18 INTERNATIONAL EXCHANGE COORDINATOR Nutrition Nutrition Risk Factors by History Adult : None DAMARIS MEDRANO LPN - 02/14/2012 13:18 INTERNATIONAL EXCHANGE COORDINATOR Functional Current Daily Living Assistance : None ADMARIS MEDRANO LPN - 02/14/2012 13:18 INTERNATIONAL EXCHANGE COORDINATOR Dependent Habits Tobacco Use/Currently Using : No Smoking Status : Former smoker DAMARIS MEDRANO LPN - 02/14/2012 13:18 INTERNATIONAL EXCHANGE COORDINATOR Tobacco Use Grid Type : Cigarettes Last Use : 06/18/2010 DAMARIS MEDRANO LPN - 02/14/2012 13:18 INTERNATIONAL EXCHANGE COORDINATOR Caffeine Use Grid Caffeine Use : Current Type : Soft drinks Frequency : Daily Amount : 1 DAMARIS MEDRANO LPN - 02/14/2012 13:18 INTERNATIONAL EXCHANGE COORDINATOR Psychosocial Domestic Abuse Concerns : None DAMARIS MEDRANO LPN - 02/14/2012 13:18 INTERNATIONAL EXCHANGE COORDINATOR Advance Directive Advanced Directives : No DAMARIS MEDRANO LPN - 02/14/2012 13:18 INTERNATIONAL EXCHANGE COORDINATOR Educ Needs Learning Style Preference Adult Grid Patient : None Family : None DAMARIS MEDRANO LPN - 02/14/2012 13:18 INTERNATIONAL EXCHANGE COORDINATOR [facility] Document Id: [id number] RNATIONAL EXCHANGE COORDINATOR documented in this encounter Plan of Treatment Not on filedocumented as of this encounter Visit Diagnoses Not on filedocumented in this encounter Additional Health Concerns Assessment Noted Time PHQ-9 Depression Total Score: 15 02/14/2012 1:41 PM CS T documented as of this encounter
--- OUTSIDE RECORDS SUMMARY | 2022-01-22 10:16 | XMS_ITS | Encounter Summary ---
:1970 Author Organization [facility] Address [address] [place] [address] Care Team Providers Name Role Phone Unavailable Primary Care Provider Unavailable Encounter Details Date Type Department Care Team Description 08/09/2009 Hospital Encounter [facility] Debi Baez P.A.-C. [address] [place] [address] (Wo rk) Social History Tobacco [...] or relatives? How often do you attend denominational or More than 4 times per year 06/22/2019 adventism services? Do you belong to any clubs or No 06/22/2019 organizations such as denominational groups, unions, fraternal or athletic groups, or [...]
--- OUTSIDE RECORDS SUMMARY | 2022-01-22 10:16 | XMS_ITS | Encounter Summary ---
:1970 Author Organization [facility] Address [address] [place] [address] Care Team Providers Name Role Phone Unavailable Primary Care Provider Unavailable Encounter Details Date Type Department Care Team Description 12/07/2008 Hospital Encounter HX [facility] Jaymie Lopez M.D. [address] [place] [address] (Wo rk) Social History Tobacco Use Types [...]
--- OUTSIDE RECORDS SUMMARY | 2022-01-22 10:17 | XMS_ITS | Encounter Summary ---
:1970 Author Organization [facility] Address [address] [place] [address] Care Team Providers Name Role Phone Unavailable [...]
--- OUTSIDE RECORDS SUMMARY | 2022-01-22 10:17 | XMS_ITS | Encounter Summary ---
:1970 Author Organization [facility] Address [address] [place] [address] Care Team Providers Name Role Phone Unavailable Primary Care Provider Unavailable Encounter Details Date Type Department Care Team Description 06/06/2004 - Hospital Encounter HX NO MAPPING Butch Mitchell M.D. 06/07/2004 [address] [place], [place] [address] (Wo rk) Social History [...] or relatives? How often do you attend christianity or More than 4 times per year 06/22/2019 caodaism services? Do you belong to any clubs or No 06/22/2019 organizations such as christianity groups, unions, fraternal or athletic groups, or [...]
--- OUTSIDE RECORDS SUMMARY | 2022-01-22 10:17 | XMS_ITS | Encounter Summary ---
:1970 Author Organization [facility] Address [address] [place] [address] Care Team Providers Name Role Phone Unavailable Primary Care Provider Unavailable Encounter Details Date Type Department Care Team Description 06/07/2004 Hospital Encounter HX [facility] Shahriar Marina M.D. [facility] [place], [place] [address] (Wo rk) Social History [...] Parada M.D. - 06/07/2004 12:00 AM CST [id number] Date: 06/07/2004 Name: Laura Novak Birthdate: 1970 Soc.Sec.No: [id number] The patient was seen at: [facility] Restrictions if any: OFF Work from 06/06/04 until 07/19/04. Laura had major surgery 06/06/04. Butch Parada M.D. OBSTETRICS/GYNECOLOGY [facility] Document Id: [id number] Miscellaneous - Butch Parada M.D. - 06/07/2004 12:00 AM CST [id number] [place] [id number] [facility], [address] Name: Laura Novak Birthdate: 1970 SSN: [id number] [facility] Admission Date: 06/06/04 Allergy: [...] [address] BUTCH PARADA 06/07/2004 Source: [facility] JOSE ENRIQUEHXTRANSXRTFSYS Document Id: [id number] documented in this encounter Plan of Treatment Not on filedocumented as of this encounter Visit Diagnoses Not on filedocumented in this encounter
--- OUTSIDE RECORDS SUMMARY | 2022-01-22 10:17 | XMS_ITS | Encounter Summary ---
:1970 Author Organization [facility] Address [address] [place] [address] Care Team Providers Name Role Phone Unavailable Primary Care Provider Unavailable Encounter Details Date Type Department Care Team Description 06/07/2004 Hospital Encounter HX NO MAPPING Butch Mitchell M.D. [facility] [place], [place] [address] (Wo rk) Social History [...] Historical Provider Ser - 06/07/2004 12:00 AM [employer] [id number] Name: Laura Novak Birthdate: 1970 SSN: [id number] [facility] Allergy: Review of patient's allergies indicates [...] Call if heavy bleeding, severe cramps, or wisk930.4. Diet: regular Appointment(s): To see MD. Call for appointment with surgeon since you go to [facility]. I have all of my belongings . I understand my discharge instructions. My medications were reviewed with me. Patient's Signature: Nurse Discharging this patient signature: RN Signature & Date: L. Lidgerding RN Date: 06/07/2004 Please see paper chart for additional discharge documentation info: (time, how & by). Source: [facility] RWHXTRANSXRTFSYS Document Id: [id number] documented in this encounter Plan of Treatment Not on filedocumented as of this encounter Visit Diagnoses Not on filedocumented in this encounter
--- OUTSIDE RECORDS SUMMARY | 2022-01-22 10:17 | XMS_ITS | Encounter Summary ---
:1970 Author Organization [facility] Address [address] [place] [address] Care Team Providers Name Role Phone Unavailable Primary Care Provider Unavailable Encounter Details Date Type Department Care Team Description 05/11/2004 Hospital Encounter HX [facility] Shahriar Marina M.D. [facility] [place], [place] [address] (Wo rk) Social History [...] More than 4 times per year 06/22/2019 islam services? Do you belong to any clubs [...] Historical Provider Ser - 05/11/2004 12:00 AM DENTAL PROSTHETIST [id number] SURGERY SCHEDULE CHECKLIST Patient Name: Laura Novak Date of : 1970 Gender: female Patient Phone numbers: [phone] (home) [phone] (work), (cell)[phone] Surgeon: Butch Mitchell M.D. DATE OF SURGERY: 06/06/2004 TIME OF SURGERY: TBD Place of Surgery: [place] Procedure/CPT Code: [id number] Diagnosis (reason for surgery)/Diagnosis Code: No diagnosis found. Case Type: AM ADMIT Pre-op MILLA Christianson Date of Pre-op appt: TBD Type of [...] the patient's primary location. Insurance/[place]/WC ID number: [id number] Group #: {:if no insurance information please forward to [facility] CREDIT} Precertification Required? {to be completed by finance:[id number]} Credit Approval: {:to be completed by credit} DISCHARGE PLANNING ASSESSMENT: Plan after Discharge: {[facility] RESIDENT:389230} Resident of: [place]699[facility]} How are you getting home/to other facility after discharge from hospital? Telephone #: TRIGGERS FOR MORE COMPLETE DISCHARGE PLANS: {[facility] DC TRIGGER PLANS:502331} Person responsible for consent for procedure? {[facility] RESPONSIBLE PERSONS:709233} Patient {does:258937::does not} need further assessment to determine ability to provide for continued care and for activities of daily living (ADL's). RECOMMENDED DISCHARGE PLAN: Concerns: Referrals Completed: PREOP EDUCATION Date of Pre-0p Class: Hospital Information given: {YES IS DEFAULT/NO :[id number]::YES} Pt Education booklets: Pre-op letter for OOT [...] paste into 'ROUTE TO' section) : C JOSE ENRIQUE ANESTHESIOLOGY P JOSE ENRIQUE SSC CREDIT P RW SSC SCHEDULING P RW P RW PATIENT ACCOUNTS ([facility]) Source: [facility] UNITHXTRANSXRTFSYS Document Id: [id number] documented in this encounter Plan of Treatment Not on filedocumented as of this encounter Visit Diagnoses Not on filedocumented in this encounter
--- OUTSIDE RECORDS SUMMARY | 2022-01-22 10:17 | XMS_ITS | Encounter Summary ---
:1970 Author Organization [facility] Address [address] [place] [address] Care Team Providers Name Role Phone Unavailable [...] or relatives? How often do you attend mormonism or More than 4 times per year 06/22/2019 yazdanism services? Do you belong to any clubs or No 06/22/2019 organizations such as mormonism groups, unions, fraternal or athletic groups, or [...]
--- OUTSIDE RECORDS SUMMARY | 2022-01-22 10:17 | XMS_ITS | Encounter Summary ---
:1970 Author Organization [facility] Address [address] [place] [address] Care Team Providers Name Role Phone Unavailable [...]
--- OUTSIDE RECORDS SUMMARY | 2022-01-22 10:17 | XMS_ITS | Encounter Summary ---
:1970 Author Organization [facility] Address [address] [place] [address] Care Team Providers Name Role Phone Unavailable [...] More than 4 times per year 06/22/2019 oriental orthodox services? Do you belong to any [...] weakne ss ORIGINAL REPORT - 25-Jun-2001 21:38:00 ([id number]) ?? Noncontrast head CT is neg ative. Ind: 101.5424 ?? Dia.120 ?? Electronically signed by: ?? Mamta Ford [phone] ([id number]) 25-Jun-2001 2 1:38 I have reviewed the films/images and agr ee with the above interpretation. Electronically signed by: ?? Chan Anaya MD. ??[id number] 26-Jun-2001 08:55 Procedure Note Abdoulaye Anaya M.D. - 06/13/2017Formattin g of this note might be different from the original. 25-Jun-2001 20:33:00 Exam: CT Head wo Indications: Left and right sided weakne ss ORIGINAL REPORT - 25-Jun-2001 21:38:00 ([id number]) Noncontrast head CT is negati ve. Ind: 101.5424 Dia.120 Electronically signed by: Mamta Ford [phone] ([id number]) 25-Jun-2001 2 1:38 I have reviewed the films/images and agr ee with the above interpretation. Electronically signed by: Chan Anaya MD. [phone] 26-Jun-2001 08:55 Alex Ledbetter M.D. IMMary CT PROCEDURES documented in this encounter Visit Diagnoses Not on filedocumented in this encounter
--- OUTSIDE RECORDS SUMMARY | 2022-01-22 10:17 | XMS_ITS | Encounter Summary ---
:1970 Author Organization [facility] Address [address] [place] [address] Care Team Providers Name Role Phone Unavailable Primary Care Provider Unavailable Encounter Details Date Type Department Care Team Description 01/13/2007 Hospital Encounter HX [facility] INPT/OBSRV Lindy Palacios M.D. [address] [place] [address] (Wo rk) Social History Tobacco [...]
--- OUTSIDE RECORDS SUMMARY | 2022-01-22 10:17 | XMS_ITS | Encounter Summary ---
:1970 Author Organization [facility] Address [address] [place] [address] Care Team Providers Name Role Phone Unavailable [...] More than 4 times per year 06/22/2019 restorationism services? Do you belong to any clubs or No 06/22/2019 organizations such as episcopalian groups, unions, fraternal or athletic groups, or [...]
--- OUTSIDE RECORDS SUMMARY | 2022-01-22 10:17 | XMS_ITS | Encounter Summary ---
:1970 Author Organization [facility] Address [address] [place] [address] Care Team Providers Name Role Phone Unavailable [...] with contrast, contrast enhance d neck MRA, [place] MRA: Brain MR: No intracranial [...] s ignificant stenosis. No vascular anomalies. ?? [place] MRA: Normal examination . No evidence of vascular anomaly. No occlusion or significant stenosis. ?? ([id number]) Ind: 110.543 ?? Dia.120 ?? Electronically signed by: ?? Felipe Meadows M.D. [id number] 26-Jun-2001 16: 48 Procedure Note eFlipe Meadows M.D., M.B.A. - 06/13/2017 26-Jun-2001 13:32:00 Exam: MRI Hd &MRA N k wo&w &MRA Hd wo Indications: MRI MRA head and neck w/uzma ^bolus lanisocoria, lt arm ORIGINAL REPORT - 26-Jun-2001 16:48:00 Brain MR with contrast, contrast enhance d neck MRA, [place] MRA: Brain MR: No intracranial [...] or s ignificant stenosis. No vascular anomalies. [place] MRA: Normal examination . No evidence of vascular anomaly. No occlusion or significant stenosis. ([id number]) Ind: 110.543 Dia.120 Electronically signed by: Felipe Meadows M.D. [phone] 26-Jun-2001 16: 48 Jj Correia M.D. IMG MRI PROCEDURES EEG routine - awake and sleep (06/26/2001 10:16 AM CDT) Specimen (Source) Anatomical Collection Method Collection Time Re ceived Time Location / / Volume Laterality 06/26/2001 10:16 AM CDT [facility] RADIOLOGY SYSTEM - 06/26/2001 10:16 AM CDT ?? 26 Jun 2001 ? Electroencephalography ?Final Report ? Referring Physician: ??Nora ?Date: ??26 Jun 2001 ?? EEG Forensic Engineer: ? Jimenez zuleta [phone] ?? Clinical Problem: ? Spell- r/o s [...] were activated by ?? sleep. ?? An monitor worker during the recording showed a normal sinus rhythm with a rate of 52-61/minute, and an oximeter during a ?? portion of the recording showed a sa turation of 97-99 percent. Jimenez Jimenez (Signature date Jun 2001 14:14) Procedure Note Leoncio Jimenez M.D., Ph.D. - 26 Jun 2001 Electroencephalography Fin al Report Referring Physician: Nora Date : 26 Jun 2001 EEG Forensic Engineer: Jimenez Jimenez [phone] Clinical Problem: Spell- r/o sz CLINICAL INTERPRETATION: [...] no abnormalities were activated by sleep. An monitor worker during the recording melony wed a normal sinus rhythm with a rate of 52-61/minute, and an oximeter during a portion of the recording showed a satur ation of 97-99 percent. Jimenez Jimenez (Signature date Jun 2001 14:14) Historical Provider NEUROLOGY ORDERABLES Performing Organization Address City/State/ZIP Code Phon e Number HX [facility] [address] [place] [address], U SA ECG 12 Lead (06/25/2001 7:20 PM CDT) Specimen (Source) Anatomical Collection Method Collection Time Re ceived Time Location / / Volume Laterality 06/25/2001 7:20 PM CDT [facility] RADIOLOGY SYSTEM - 06/26/2001 4:46 AM CDT [id number] 19:20 VENTRICULAR RATE 66 Normal sinus rhythm Left atrial enlargement Otherwise normal ECG Previous tracing exists but is not avail able for comparison [id number]^MINA ??^ANIKET Procedure Note Aniket Cruz M.D. - 06/02/2017Form atting of this note might be different from the original. [id number] 19:20 VENTRICULAR RATE 66 Normal sinus rhythm Left atrial enlargement Otherwise normal ECG Previous tracing exists but is not avail able for comparison [id number]^MINA ALVARADO^ANIKET Historical Provider ECG ORDERABLES Performing Organization Address City/State/ZIP Code Phon e Number HX [facility] [address] [place] [address], [place] documented in this encounter Visit Diagnoses Not on filedocumented in this encounter
--- OUTSIDE RECORDS SUMMARY | 2022-01-22 10:17 | XMS_ITS | Encounter Summary ---
:1970 Author Organization [facility] Address [address] [place] [address] Care Team Providers Name Role Phone Unavailable [...]
[2022-01-22 13:54] LABS: Chloride* 103 mmol/L (96-114); Potassium* 4.3 mmol/L (3.6-5.1); Sodium* 137 mmol/L (135-149)
[2022-01-22 13:56] LABS: Creatinine* 0.6 mg/dL (0.5-1.5); Estimated Glomerular Filt Rate 108 ml/min
[2022-01-22 13:57] LABS: Blood Urea Nitrogen* 11 mg/dL (7-30); Calcium* 9.5 mg/dL (8.4-10.6); Carbon Dioxide* 25 mmol/L (20-32); Glucose* 91 mg/dL (60-115)
[2022-01-22 14:05] LABS: Basophils Absolute Auto 0.04 K/uL (0.00-0.30); Basophils Percent Auto 0.5 % (0.0-3.0); Eosinophils Absolute Auto 0.17 K/uL (0.00-0.50); Eosinophils Percent Auto 2.3 % (0.0-7.0); Hematocrit 39.8 % (33.0-51.0); Immature Granulocytes Abs Auto 0.05 K/uL (0.00-0.30); Immature Granulocytes Pct Auto 0.7 %; Lymphocytes Absolute Auto 1.78 K/uL (0.90-2.90); Lymphocytes Percent Auto 23.8 % (20-44); Mean Corpuscular HGB Conc 35 gm/dL (32-36); Mean Corpuscular Hemoglobin 32 pg (26-34); Mean Corpuscular Volume 91 fL (80-100); Monocytes Percent Auto 5.9 % (0.0-11.0); Neutrophils Absolute Auto 5.01 K/uL (1.7-7.0); Neutrophils Percent Auto 66.8 % (42.0-72.0); Platelet Count* 322 K/uL (140-440); RDW Coefficient of Variation % 12.1 % (11.5-15.5); White Blood Count* 7.49 K/uL (4.50-11.00)
[2022-01-22 14:38] LABS: Slide Review Reflex No
== END 2022-01-22 10:05 | disposition home or self-care (01) ==
PROVIDERS: PCP Nurse Practitioner Family; Visit Provider Nurse Practitioner Family
DX: M54.50 Low back pain, unspecified (principal)
CPT/HCPCS: 80048; 85025; 87086

== ENCOUNTER 2022-02-02 07:49 | Emergency (ER) | payer BC, OTHER, SELFPAY ==
--- NOTE | 2022-02-02 08:46 | CRLHL7_ITS ---
For Patients: As a result of the Century Cures Act, medical imaging exams and procedure reports are released immediately into your electronic medical record. You may view this report before your referring provider. If you have questions, please contact your health care provider. INDICATION: Injury. Pain. FINDINGS: Three views of the right ankle were obtained. There is a minimally displaced oblique fracture in the lateral malleolus. There is no other fracture seen or dislocation. There is soft tissue swelling laterally. Impression: Minimally displaced oblique fracture lateral malleolus. Soft tissue swelling. Dictated by Adis Howard MD @ 02/02/2022 9:41:12 AM (Electronically Signed)
[2022-02-02 08:52] VITALS: BP 130/69; PULSE 65; RESP 18; TEMP 36.2; O2SAT 97; BMI 29.5
--- NOTE | 2022-02-02 08:54 | ED_ITS ---
HPI - Extremity Injury (Lower) General Chief Complaint: Extremity Pain/Injury, Lower Stated Complaint: Injured RT foot ankle Time Seen by Provider: 02/02/22 07:54 History of Present Illness HPI Narrative: This 51-year-old female comes in with an injury to her right ankle that occurred in the night. She states that she was up to the bathroom and became vertiginous. She lost her balance and somehow injured her right ankle. She did not have any other injury. She has pain and swelling on the lateral aspect of her right ankle and states that she is unable to bear weight. She had another episode of vertigo while lying in bed and states that she had very loud ringing or roaring in her ear and thought that there was some kind of alarm or noises going off in the room. These symptoms of vertigo and hearing changes have now resolved. She had similar symptoms about a month ago that were much less intense. Related Data Home Medications Medication Instructions Recorded Confirmed lorazepam 1 mg tablet 1 mg PO PRN 10/04/21 01/22/22 simvastatin 40 mg tablet 40 mg PO 10/04/21 01/22/22 trazodone 50 mg tablet 50 mg PO PRN 01/22/22 01/22/22 Previous Rx's Medication Instructions Recorded sertraline 50 mg tablet 50 mg PO QDAY 90 days #90 tabs 09/17/21 verapamil 240 mg 24 hr 240 mg PO QDAY #90 caps 10/16/21 capsule,extended release levothyroxine 100 mcg tablet 100 mcg PO QDAY 90 days #90 tabs 11/30/21 Cam Walker #1 ea 02/02/22 Crutches- Adult #1 ea 02/02/22 Allergies Allergy/AdvReac Type Severity Reaction Status Date / Time fluorouracil Allergy Unknown Hx Verified 02/02/22 08:57 prinzmetal angina oxycodone Allergy Unknown Itching Verified 02/02/22 08:57 propranolol Allergy Unknown Hx Verified 02/02/22 08:57 prinzmetal angina Opioids - Morphine Analogues Allergy Verified 02/02/22 08:57 Rlozgexo-3-GT5 Antimigraine Allergy Verified 02/02/22 08:57 Agents morphine AdvReac Unknown Itching Verified 02/02/22 08:57 Review of Systems Status of ROS: Reports: 10 or more systems reviewed and unremarkable except as noted in History and below Narrative: Constitutional: No fevers, no weight gain or loss. Eyes: No discharge. No vision changes. HENT: No congestion, no sore throat, no ear pain. Cardiovascular: No chest pain, no palpitations. Respiratory: No shortness of breath, no wheezes, no cough. Gastrointestinal: No abdominal pain, no vomiting, no diarrhea. Genitourinary: No dysuria, no hematuria. Musculoskeletal: Right ankle injury. Skin: No rashes, no pruritis. Neurological: No weakness, sensory change, speech change. Vertigo symptoms with hearing changes as described above. Endo/Heme/Allergies: No bruising or bleeding. No polydipsia. Pysch: no suicidality, no anxiety, no insomnia. All other systems reviewed and are negative. [facility] Medical History (Updated 02/02/22 @ 09:53 by Fox Maldonado MD) Anxiety Depression (01/02/10) History of gastroesophageal reflux (GERD) History of Graves' disease History of hypothyroidism History of insomnia History of myocardial infarction History of tachycardia History of urinary incontinence Migraine (01/02/10) Mitral valve disorder (01/02/10) Prinzmetal angina Surgical History (Updated 10/04/21 @ 09:11 by Tiffanie Mcgovern APRN, KYLE) History of coronary angiogram History of hip surgery History of hysterectomy (01/02/10) S/P LEEP Family History (Updated 11/04/21 @ 20:02 by Tiffanie Mcgovern APRN, KYLE) Sister Michael's thyroiditis Father Heart failure Mother Hyperthyroidism Maternal Grandfather Colon cancer Social History (Updated 10/04/21 @ 08:56 by Tiffanie Mcgovern APRN, KYLE) Narrative: . 2 daughters. Non-smoker, former smoker. Alcohol 2-3/week. No illicit drug use. Options [place], mental health, adult foster care. Smoking Status: Former smoker Do you use any of these nicotine containing products: None Second hand tobacco smoke exposure: No How often do you have a drink containing alcohol: 2-4 times a month How many standard drinks containing alcohol do you have on a typical day: 1 or 2 How often do you have six or more drinks on one occasion: Never AUDIT-C Alcohol total score: 2 Non-prescribed substance use: denies use Little interest or pleasure in doing things: not at all Feeling down, depressed, or hopeless: several days service: No Exam Narrative: Exam Narrative: Constitutional: Well-developed, well-nourished, no acute distress. HEENT: Normocephalic, atraumatic. Neck: Normal range of motion. Nontender. Supple. Heart: Regular. No murmurs. Normal rate. Intact distal pulses. Lungs: Clear to auscultation. No chest discomfort. No wheezes, rhonchi, or rales. Abdomen: Normal bowel sounds. Nontender. No rebound tenderness. Genitalia: Deferred. Back: No midline tenderness. Normal range of motion. Extremities: Tenderness with swelling over the lateral malleolus of the right ankle. There is no joint instability or joint effusion. Skin: Intact. No rash. Warm. No erythema or pallor. Neurologic: No altered sensation. No weakness. Alert and oriented. Psychiatric: No suicidality. No anxiety or depression. No insomnia. Nursing notes and vitals signs are reviewed. Const: Vital Signs, click to edit/add: Vital Signs - 24 hr 02/02/22 08:52 Temperature 97.2 F L Pulse Rate [Pulse Oximeter] 65 Respiratory Rate 18 Blood Pressure [Le ft Upper Arm] 130/69 Pulse Oximetry 97 Oxygen Delivery Me thod Room Air Course Vital Signs Vital signs: Initial Vital Signs Temperature 97.2 F L 02/02/22 08:52 Temperature Source Temporal Artery Scan 02/02/22 08:52 Pulse Rate 65 02/02/22 08:52 Respiratory Rate 18 02/02/22 08:52 Blood Pressure 130/69 02/02/22 08:52 Blood Pressure Mean 89 02/02/22 08:52 Blood Pressure Position Supine 02/02/22 08:52 Pulse Oximetry 97 02/02/22 08:52 Oxygen Delivery Method 02/02/22 08:52 Vital Signs Temperature 97.2 F L 02/02/22 08:52 Pulse Rate 65 02/02/22 08:52 Respiratory Rate 18 02/02/22 08:52 Blood Pressure 130/69 02/02/22 08:52 Pulse Oximetry 97 02/02/22 08:52 Oxygen Delivery Method 02/02/22 08:52 Temperature 97.2 F L 02/02/22 08:52 Pulse Rate 65 02/02/22 08:52 Respiratory Rate 18 02/02/22 08:52 Blood Pressure 130/69 02/02/22 08:52 Pulse Oximetry 97 02/02/22 08:52 Oxygen Delivery Method 02/02/22 08:52 MDM - Extremity Injury (Lower) MDM Narrative Medical decision making narrative: This patient comes in with an injury to her right ankle. X-ray images show a minimally displaced fracture of the distal fibula of the right lower extremity. The patient was placed in a Cam walker boot. She states that she has crutches that she can use at home. I advised her to follow-up with orthopedic clinic or her primary physician. The vertigo symptoms are suspicious for Meniere's disease as she had associated hearing changes at the time she was vertiginous. I advised her to follow-up with [facility] in this regard. Imaging Data XR R Ankle: My impression: Minimally displaced fracture of the distal fibula. Discharge Plan Discharge Clinical Impression: Meniere's disease, Ankle fracture Patient Disposition: Home, Self-Care Condition: Stable Additional Instructions: Wear boot and use crutches for ambulating. Follow-up with primary physician or orthopedic clinic. Return if worsening. As for vertigo symptoms in the possibility of Meniere's disease, follow-up with [facility]. Prescriptions: New (DME) Cam Walker Misc See Rx Instructions .ROUTE .MEDSUPPLY Qty: 1 0RF Rx Instructions: As directed (DME) Crutches- Adult Misc See Rx Instructions .ROUTE .MEDSUPPLY Qty: 1 0RF Rx Instructions: As directed No Action simvastatin 40 mg tablet 40 mg PO lorazepam 1 mg tablet 1 mg PO PRN trazodone 50 mg tablet 50 mg PO PRN sertraline 50 mg tablet 50 mg PO QDAY 90 Days Qty: 90 1RF verapamil 240 mg capsule,ext rel. pellets 24 hr 240 mg PO QDAY Qty: 90 3RF levothyroxine 100 mcg tablet 100 mcg PO QDAY 90 Days Qty: 90 3RF Rx Instructions: 1.5 tabs on Friday. Follow Up/Referrals: Tiffanie Mcgovern, HIGH SCHOOL COORDINATOR, ORTHOPEDICALLY IMPAIRED TEACHER [Primary Care Provider] - Stand Alone Forms: [facility] Info Instructions
--- OUTSIDE RECORDS SUMMARY | 2022-02-02 09:20 | XMS_ITS | Encounter Summary ---
:1970 Author Organization [facility] Address [address] [place] [address] Care Team Providers Name Role Phone Roopa Lopez MD Primary Care Provider Encounter Details Date Type Department Care Team Description 09/25/2020 Lab Robert Guerrero Postablative hypothyroidism [address] [place] [phone] Social History Tobacco Use Types Packs/Day Years Used Date Smoking Tobacco: Former Cigarettes Quit : 10/2018 Smokeless Tobacco: Never Alcohol Use Standard Drinks/Week Comments Yes 0 [...] drinks on one occasion? No t asked Sex Assigned at Date Recorded Female [...] Results T4, free (09/25/2020 8:21 AM CDT) athologist Signature Free T4 1.10 0.78 - [...] MD LAB BLOOD ORDERABLES Performing Organization Address City/[facility]/ZIP Code Phon e Number [facility] [address] [place] [address] TSH (09/25/2020 8:21 AM CDT) athologist Signature [...] MD LAB BLOOD ORDERABLES Performing Organization Address City/[facility]/ZIP Code Phon e Number [facility] [address] [place] [address] documented in this encounter Visit Diagnoses Diagnosis Postablative hypothyroidism Other postablative hypothyroidism documented in this encounter Care Teams Inventory Control/Shipping Receiving Relationship Specialty Start Date End Date Roopa Lopez MD PCP - General Family Medicine 07/15/19 02/26/21 [address] [facility] 20 [place] [address] documented as of this encounter
--- OUTSIDE RECORDS SUMMARY | 2022-02-02 09:20 | XMS_ITS | Encounter Summary ---
:1970 Author Organization [facility] Address [address] [place] [address] Care Team Providers Name Role Phone Roopa Lopez MD Primary Care Provider Reason for Visit Reason Comments Med Refill Encounter Details Date Type Department Care Team Description 05/22/2020 Refill WellpinitRoopa Gandhi, Insomnia, unspecified [address] MD type Rogelio Guerrero [place]ST[place] [phone] [facility] 20 [place] [phone] [place] [address] Social History Tobacco Use Types Packs/Day Years [...] type documented in this encounter Care Teams Appraiser Personal Property Relationship Specialty Start Date End Date Roopa Lopez MD PCP - General Family Medicine 07/15/19 02/26/[address] [place] [address] documented as of this encounter
--- OUTSIDE RECORDS SUMMARY | 2022-02-02 09:20 | XMS_ITS | Encounter Summary ---
:1970 Author Organization [facility] Address [address] [place] [address] Care Team Providers Name Role Phone Roopa Lopez MD Primary Care Provider Reason for Visit Reason Comments Med Refill Encounter Details Date Type Department Care Team Description 09/03/2020 Refill [place]opa Gandhi, GUSTAVO (generalized anxiety [address] [facility] MD disorder) [place], [place] [phone] [facility] 20 [place] [phone] [place] [phone] Social History Tobacco Use Types Packs/Day Years [...] disorder documented in this encounter Care Teams Nuclear Radiation Engineer Relationship Specialty Start Date End Date Roopa Lopez MD PCP - General Family Medicine 07/15/19 02/26/21 [address] [place] [address] documented as of this encounter
--- OUTSIDE RECORDS SUMMARY | 2022-02-02 09:20 | XMS_ITS | Encounter Summary ---
:1970 Author Organization [facility] Address [address] [place] [address] Care Team Providers Name Role Phone Roopa Lopez MD Primary Care Provider Reason for Visit Reason Comments Med Refill Encounter Details Date Type Department Care Team Description 11/14/2020 Refill SharonRoopa Gandhi, Insomnia, unspecified [address] MD type Rogelio Guerrero [place] [phone] [phone] [place] [address] Social History Tobacco Use Types Packs/Day Years [...] was discussed: 06/29/2020 with Catalina Pennington APRN, CNP Upcoming appointment with provider: Visit date not [...] type documented in this encounter Care Teams Detective Supervisor Relationship Specialty Start Date End Date Roopa Lopez MD PCP - General Family Medicine 07/15/19 02/26/[address] [place] [address] documented as of this encounter
--- OUTSIDE RECORDS SUMMARY | 2022-02-02 09:20 | XMS_ITS | Encounter Summary ---
:1970 Author Organization [facility] Address [address] [place] [address] Care Team Providers Name Role Phone Roopa Lopez MD Primary Care Provider Encounter Details Date Type Department Care Team Description 10/10/2020 Orders Only Roopa Caldwell Other migraine without [address] MD Raheel status migrainosus, not Rogelio Guerrero ERNESTO [address] intractable (Primary [phone] [facility]) [place]ST[place] [phone] Social History Tobacco Use Types Packs/Day Years [...] Primary documented in this encounter Care Teams Hydrodynamics Professor Relationship Specialty Start Date End Date Roopa Lopez MD PCP - General Family Medicine 07/15/19 02/26/[address] [place] [address] documented as of this encounter
--- OUTSIDE RECORDS SUMMARY | 2022-02-02 09:20 | XMS_ITS | Encounter Summary ---
:[address] [facility] Address [address] [place] [address] Care Team Providers Name Role Phone Roopa Lopez MD Primary Care Provider Encounter Details Date Type Department Care Team Description 07/06/2020 Orders Only SE Endocrinology Muthusamy, Postablative [address] [place] [address] Social History Tobacco Use Types Packs/Day Years [...] hypothyroidism documented in this encounter Care Teams Booth Manager Relationship Specialty Start Date End Date Roopa Lopez MD PCP - General Family Medicine 07/15/19 02/26/[address] [place] [address] documented as of this encounter
--- OUTSIDE RECORDS SUMMARY | 2022-02-02 09:20 | XMS_ITS | Encounter Summary ---
:1970 Author Organization [facility] Address [address] [place] [address] Care Team Providers Name Role Phone Roopa Lopez MD Primary Care Provider Reason for Referral Consultation (Routine) - Closed Specialty Diagnoses / Procedures Referred By Contact Refer red To Contact Diagnoses Urinary incontinence, unspecified type Catalina Pennington APRN, CNP [facility] [address] [place] [address] [place] [address] Fax: Referral ID Status Reason Start Date Expiration Date Visits Requ ested Visits Authorized [id number] Closed 04/27/2020 04/27/2021 1 1 M PROJECT MANAGER Reason for Visit Reason Comments Annual Exam Headache Bladder leakage menopause Encounter Details Date Type Department Care Team Description 04/27/2020 Office Visit Rogelio Guerrero Catalina Pennington Well adult exam (Primary Dx) ; [address] [facility] [address] [place] Mixed hyperlipidemia; [place] ERNESTO 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 (HCC); [address] Anxiety; [phone] Migraine withou t aura and without status migrainosus, not intractable; (Work) Graves disease; [phone] Urinary inconti nence, unspecified type; (Fax) History [...] Comments Blood Pressure 130/67 04/27/2020 3:24 PM SCRUM PROJECT MANAGER Pulse 57 04/27/2020 3:24 PM SCRUM PROJECT MANAGER Temperature 36.5 ??C (97.7 ??F) 04/27/2020 3:24 PM SCRUM PROJECT MANAGER Respiratory Rate 18 04/27/2020 3:24 PM SCRUM PROJECT MANAGER Oxygen Saturation - - Inhaled Oxygen Concentration - - Weight 91.4 kg (201 lb 8 oz) 04/27/2020 3:24 PM SCRUM PROJECT MANAGER Height 173.3 cm (5' 8.23) 04/27/2020 3:24 PM SCRUM PROJECT MANAGER Body Mass Index 30.43 04/27/2020 3:24 PM SCRUM PROJECT MANAGER documented in this encounter Patient Instructions Patient InstructionsTjennifer Pennington APRN, FOOD ASSEMBLER - 04/27/2020 3:20 PM CST Increase zocor to 40mg nightly [place] oil in evening. Consider vitamin E 800iu [...] spasm. Refer to PT for pelvic exercises. M PROJECT MANAGER documented in this encounter Progress Notes Catalina Pennington APRN, CNP - 04/27/2020 3:20 PM CST Subjective Patient ID: Laura Novak is a 49 y.o. female. Chief Complaint Patient presents with ??? Annual Exam ??? Headache ??? Bladder leakage ??? menopause HPI Patient presents to the [facility] for a physical exam. She has concern [...] (gastroesophageal reflux disease) ??? Headache History ??? 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 No stents required. No [...] file Gets together: Not on file Attends judaism service: Not on file Active member of [...] Patient Instructions Increase zocor to 40mg nightly Norway oil in evening. Consider vitamin E 800iu [...] spasm. Refer to PT for pelvic exercises. M PROJECT MANAGER documented in this encounter Miscellaneous Notes Assessment & Plan Note - Catalina Pennington APRN, CNP - 04/28/2020 12:41 PM SCRUM PROJECT MANAGER Associated Problem(s): Urinary incontinence Oxybutynin XL 5 mg daily. Refer to physical therapy. M PROJECT MANAGER Assessment & Plan Note - Catalina Pennington APRN, CNP - 04/28/2020 12:40 PM SCRUM PROJECT MANAGER Associated Problem(s): Essential hypertension Doing well no changes needed. If needed in the future, consider amlodipine 5- 10mg daily. M PROJECT MANAGER Assessment & Plan Note - Catalina Pennington APRN, CNP - 04/28/2020 12:38 PM SCRUM PROJECT MANAGER Associated Problem(s): Migraine with aura and without [...] any discomfort rightnow. Follow up in 3mons. M PROJECT MANAGER documented in this encounter Plan of Treatment Scheduled Referrals Name Type Priority Associated Diagnoses Order S chedule Ambulatory External Outpatient Referral Routine Urinary O rdered: Referral incontinence, 04/27/2020 unspecified type documented as of this encounter Procedures Procedure Name Priority Date/Time Associated Diagnosis Comme nts COLOGUARD Routine 05/11/2020 6:30 AM Well adult exam Result s for this SCRUM PROJECT MANAGER procedure are i n the results section . documented in this encounter Results Microalbumin/Creatinine Ratio (06/29/2020 8:30 AM CDT) athologist Signature Microalbumin,m 7.1 0.0 - 16.6 06/29/2020 [facility] g/day mg/L 3:01 PM CDT [facility] Comment: . Creatinine, Urine 185 mg/dL 06/29/2020 3:02 PM CDT [facility] Comment: No established reference range. Microalb/Creat Ratio 4 0 - 24 mg/g 06/29/2020 3:0 2 PM CDT [facility] Specimen Anatomical Collection Method Collection Time Receive d Time (Source) Location / / Volume Laterality Urine 06/29/2020 8:30 AM 1 CDT 12:33 PM CDT Catalina Pennington APRN, CNP LAB URINE ORDERABLES Performing Organization Address City/State/ZIP Code Phon e Number [facility] [address] [place] [address] Magnesium (06/27/2020 8:27 AM CDT) athologist Signature Magnesium 2.0 1.6 - 2.3 06/27/2020 [facility] mg/dL 2:13 PM CDT [facility] Specimen Anatomical Collection Method Collection Time Receive d Time (Source) Location / / Volume Laterality Blood 06/27/2020 8:27 AM 1 CDT 12:50 PM CDT Catalina Pennington APRN, CNP LAB BLOOD ORDERABLES Performing Organization Address City/State/ZIP Code Phon e Number [facility] [address] [place] [address] Lipid panel (06/27/2020 8:27 AM CDT) athologist Signature Cholesterol 166 0 - 199 06/27/2020 [facility] mg/dL 2:13 PM [facility] Comment: Recommended by National Cholesterol Education [...] - 250 mg/dL 06/27/2020 2:13 PM CDT [facility] Comment: -------- HDL Ranges -------- <40 ?Low 40-59 ?Normal >=60 ? Optimal LDL Calculated 83 0 - 99 mg/dL 06/27/2020 2:13 PM T [facility] Comment: -------- LDL Ranges -------- <100 ? Optimal 100-129 ?Near optimal/above op timal 130-159 ?Borderline high 160-189 ?High >=190 ?Very high Fasting? Yes 06/27/2020 8:31 AM T [facility] Specimen Anatomical Collection Method Collection Time Receive d Time (Source) Location / / Volume Laterality Blood 06/27/2020 8:27 AM CDT 12:50 PM CDT Catalina Pennington APRN, CNP LAB BLOOD ORDERABLES Performing Organization Address [facility] e Number [facility] [address] [place] [phone] Hemoglobin A1c (06/27/2020 8:27 AM CDT) P [...] CNP LAB BLOOD ORDERABLES Performing Organization Address [facility] e Number [facility] [address] [place] [phone] (ABNORMAL) Comprehensive metabolic panel (06/27/2020 8:27 AM [...] - 43 U/L 06/27/2020 [facility] 2:13 PM CDT [facility] Alkaline 66 38 - 128 06/27/2020 [facility] Phosphatase U/L 2:13 PM [facility] ALT (SGPT) 19 0 - 34 U/L 06/27/2020 [facility] 2:13 PM [facility] Sodium 139 135 - 145 06/27/2020 [facility] mEq/L 2:13 PM [facility] Potassium 4.1 3.5 - 5.1 06/27/2020 [facility] mEq/L 2:13 PM [facility] Chloride 106 98 - 107 06/27/2020 [facility] mEq/L 2:13 PM [facility] CO2 27 22 - 29 06/27/2020 [facility] mmol/L 2:13 PM [facility] BUN 17 5 - 25 06/27/2020 [facility] mg/dL 2:13 PM [facility] Creatinine 0.7 0.4 - 1.2 06/27/2020 [facility] mg/dL 2:13 PM [facility] Glucose 105 (H) 70 - 100 06/27/2020 [facility] mg/dL 2:13 PM [facility] Calcium, Total,S 9.3 8.4 - 10.2 06/27/2020 [facility] mg/dL 2:13 PM [facility] Specimen Anatomical Collection Method Collection Time Receive d Time (Source) Location / / Volume Laterality Blood 06/27/2020 8:27 AM CDT 12:50 PM CDT Catalina Pennington APRN, FOOD ASSEMBLER LAB BLOOD ORDERABLES Performing Organization Address City/State/ZIP Code Phon e Number [facility] [address] [place] [address] Cologuard (05/11/2020 6:30 AM SCRUM PROJECT MANAGER) [facility] Method Time Signature Cologuard Negative Not Applicable [employer] Comment: A negative result indicates a low [...] Flores al, N Eng l J Med 2014;370(14):1767-1235) The norm al value (reference range) for this assay is negative. COLOGUARD RE-SCREENING RECOMMENDATION: Periodic routine colorectal cancer screening is an important part of preventive healthcare for asymptomatic persons at average risk for colorectal cancer. Following a negative Cologuard result, the [place] Cancer Society and U.S. Multi-Society Task Force screening guidelines recommend a Cologua rd re-screening interval of 3 years. References: [place] Cancer Society (ACS). Colorectal cancer prevention and early detection. [place], [place]: [place] Cancer Soc iety; [updated 2015Jul 01]. https://www.cancer.org/cancer/ptirx-dpakll-ntsjwf/kyylvlvjp-rcfmtccsm-xcfnrmj/ac s-recommendations.html. Accessed November 07, 2017; Jake DK, Clarissa CR, Sung GutierrezK, Colorectal Cancer Screening: Recommendations for Ph ysicians and Patients from the U.S. Multi-Society Task Force on Colorectal Cancer Screening, Am J Gastroenterology 2017; 112:4661-0876. TEST TYPE: Composite algorithmic analysi s of [...] terval of every 3 years by the [place] Cancer Society and U.S. Multi-Society Task Force. [...] be accessed at the follow ing location: www.Shaker/results. Additional description of the Cologuard test process, warnings and precautions can be found at www.cologuardtest.com. Rx only. [facility], [address] [place] [address]., [place], [place], [facility], , Clinical Laboratory Professor Of Violin, BRIANNA HANDY, , [place] NO: [id number] Specimen Anatomical Collection Method Collection Time Receive d Time (Source) Location / / Volume Laterality Stool 05/11/2020 6:30 AM SCRUM PROJECT MANAGER 12:30 PM SCRUM PROJECT MANAGER Catalina Pennington REAL ESTATE INVESTMENT ANALYST, FOOD ASSEMBLER LAB BODY FLUIDS AND STOOLS O RDERABLES Performing Organization Address City/State/ZIP Code Phon e Number [facility], [address] [place] [address] [facility] [address] documented in this encounter Visit [...] 30 mg Right Ventrogluteal injection 30 mg SCRUM PROJECT MANAGER 30 mg, Intramuscular, Once, On Rani 04/27/20 at 1700, For 1 dose, In office documented in this encounter Care Teams Rental Sales Representative Relationship Specialty Start Date End Date Roopa Lopez MD PCP - General Family Medicine 07/15/19 02/26/[address] [place] [address] documented as of this encounter
--- OUTSIDE RECORDS SUMMARY | 2022-02-02 09:20 | XMS_ITS | Clinical Summary ---
:1970 Author Organization [facility] Address [address] [place] [address] Care Team Providers Name Role Phone Tiffanie Mcgovern APRN, KYLE Primary Care Provider [phone] Allergies Active Allergy Reactions Severity Noted Date [...] and states h er daughter is a life skills trainer. Also trying to lose weight and [...] Comments Blood Pressure 126/84 02/27/2021 9:40 AM AUTOMOBILE TAILLIGHT ASSEMBLER Pulse 72 02/27/2021 9:40 AM AUTOMOBILE TAILLIGHT ASSEMBLER Temperature 37.1 ??C (98.8 ??F) 02/27/2021 9:40 AM AUTOMOBILE TAILLIGHT ASSEMBLER Respiratory Rate 12 02/27/2021 9:40 AM AUTOMOBILE TAILLIGHT ASSEMBLER Oxygen Saturation 96% 02/27/2021 9:40 AM AUTOMOBILE TAILLIGHT ASSEMBLER Inhaled Oxygen Concentration - - Weight 86.4 kg (190 lb 8 oz) 02/27/2021 9:40 AM AUTOMOBILE TAILLIGHT ASSEMBLER Height 173.3 cm (5' 8.23) 09/20/2020 4:05 PM CDT Body Mass Index 28.77 09/20/2020 4:05 PM CDT Plan of Treatment Health Maintenance Due Date Last Done Comments CT Colonography 1970 Colonoscopy 1970 Sigmoidoscopy 1970 iFOBT 1970 Zoster Vaccines (1 of 2) 08/16/2019 COVID-19 Vaccine (3 - Booster 06/28/2020 05/03/2020, for Moderna series) 04/05/2020 Mammogram 11/07/2020 11/08/2019, 10/27/2018, 10/27/2018 Colorectal Cancer Screening 10/22/2024 FIT-DNA 10/22/2024 10/22/2021, 05/11/2020 DTaP,Tdap,and Td Vaccines (3 08/30/2027 08/29/2017, - Td or Tdap) 10/24/2005 HPV Vaccines Aged Out No longer eligib [...] ss Type Group BCBS OF BCBS OF [id number] 2020-[place] [address] [place] [address] Care Teams Pedigree Tracer Relationship Specialty Start Date End Date Tiffanie Mcgovern, MUSIC LEADER, LINING CASER PCP - General Family Medicine 02/27/[address] [place] [address] [place]NESTO MACEDO [id number]
--- OUTSIDE RECORDS SUMMARY | 2022-02-02 09:20 | XMS_ITS | Encounter Summary ---
:1970 Author Organization [facility] Address [address] [place] [address] Care Team Providers Name Role Phone Roopa Lopez MD Primary Care Provider Encounter Details Date Type Department Care Team Description 06/27/2020 Lab Robert Guerrero History of coronary vasospas m; [address] Mixed hyperlipidemia; Robert Guerrero ERNESTO [address] Essential hypertension; [phone] Postablative hy pothyroidism Social History Tobacco Use [...] AM CDT) athologist Signature GFR >60 06/27/2020 [facility] 2:13 PM CDT [facility] >60 06/27/2020 [facility] Jordanian GFR 2:13 PM CDT [facility] Comment: GFR calculated from serum creatinine v alue Chronic Kidney Disease less than 60 mL/m in/1.73 m2 Kidney Failure less than 15 mL/min/1.73 m2 Note: effective 07/23/06 IDMS-Traceable MDRD Study Equation used. Specimen Anatomical Collection Method Collection Time Receive d Time (Source) Location / / Volume Laterality 06/27/2020 8:27 AM 8:27 CDT AM CDT Catalina Pennington APRN, TRAIN ANNOUNCER LAB BLOOD ORDERABLES Performing Organization Address City/State/ZIP Code Phon e Number [facility] [address] [place] [address] T4, free (06/27/2020 8:27 AM CDT) athologist Signature Free T4 1.31 0.78 - 2.19 06/27/2020 [facility] ng/dL 2:53 PM CDT CENTER [...] LAB BLOOD ORDERABLES Performing Organization Address [facility]/ZIP Code Phon e Number [facility] [address] [place] [address] (ABNORMAL) TSH (06/27/2020 8:27 AM CDT) Analysis [...] MD LAB BLOOD ORDERABLES Performing Organization Address City/[facility]/ZIP Code Phon e Number [facility] [address] [place] [address] (ABNORMAL) Comprehensive metabolic panel (06/27/2020 8:27 AM CDT) Patholo gist Method Time Signature Total Protein 7.3 6.3 - 8.2 06/27/2020 [facility] g/dL 2:13 PM CDT [facility] Albumin, Serum 4.2 3.5 - 5.0 06/27/2020 [facility] g/dL 2:13 PM [facility] Total Bilirubin <0.7 0.1 - 1.0 06/27/2020 [facility] mg/dL 2:13 PM [facility] AST 26 8 - 43 U/L 06/27/2020 [facility] 2:13 PM [facility] Alkaline 66 38 - 128 06/27/2020 [facility] Phosphatase U/L 2:13 PM [facility] ALT (SGPT) 19 0 - 34 U/L 06/27/2020 [facility] 2:13 PM [facility] Sodium 139 135 - 145 06/27/2020 [facility] mEq/L 2:13 PM [facility] Potassium 4.1 3.5 - 5.1 06/27/2020 [facility] mEq/L 2:13 PM [facility] Chloride 106 98 - 107 06/27/2020 [facility] mEq/L 2:13 PM [facility] CO2 27 22 - 29 06/27/2020 [facility] mmol/L 2:13 PM [facility] BUN 17 5 - 25 06/27/2020 [facility] mg/dL 2:13 PM [facility] Creatinine 0.7 0.4 - 1.2 06/27/2020 [facility] mg/dL 2:13 PM [facility] Glucose 105 (H) 70 - 100 06/27/2020 [facility] mg/dL 2:13 PM [facility] Calcium, Total,S 9.3 8.4 - 10.2 06/27/2020 [facility] mg/dL 2:13 PM [facility] Specimen Anatomical Collection Method Collection Time Receive d Time (Source) Location / / Volume Laterality Blood 06/27/2020 8:27 AM CDT 12:50 PM CDT Catalina Pennington APRN, CNP LAB BLOOD ORDERABLES Performing Organization Address City/State/ZIP Code Phon e Number [facility] [address] [place] [address] Hemoglobin A1c (06/27/2020 8:27 AM CDT) athologist Signature Hemoglobin A1C 5.4 4.0 - 5.6 06/27/2020 [facility] % A1C 2:09 PM [facility] Comment: Reference Range 4.0-5.6% is [...] [facility] [address] [place] [address] Lipid panel (06/27/2020 8:27 AM CDT) P athologist Signature Cholesterol 166 0 - 199 06/27/2020 [facility] mg/dL 2:13 PM [facility] Comment: Recommended by National Cholesterol Education Program (ATP III) -------- Cholesterol Ranges -------- <200 ?Desirable 200-239 ? Borderline high >=240 ? High Triglycerides 126 0 - 149 mg/dL 06/27/2020 2:13 PM T [facility] Comment: -------- TRIG Ranges -------- <150 ?Normal 150-199 ? Borderline high 200-499 ? High >=500 ? Very high HDL 58 40 - 250 mg/dL 06/27/2020 2:13 PM CDT [facility] Comment: -------- HDL Ranges -------- <40 ?Low 40-59 ?Normal >=60 ? Optimal LDL Calculated 83 0 - 99 mg/dL 06/27/2020 2:13 PM CDT [facility] Comment: -------- LDL Ranges -------- <100 ? Optimal 100-129 ?Near optimal/above op timal 130-159 ?Borderline high 160-189 ?High >=190 ?Very high Fasting? Yes 06/27/2020 8:31 AM CDT [facility] Specimen Anatomical Collection Method Collection Time Receive d Time (Source) Location / / Volume Laterality Blood 06/27/2020 8:27 AM 1 CDT 12:50 PM CDT Catalina Pennington APRN, CNP LAB BLOOD ORDERABLES Performing Organization Address City/[facility]/ZIP Code Phon e Number [facility] [address] [place] [address] Magnesium (06/27/2020 8:27 AM CDT) P athologist Signature Magnesium 2.0 1.6 - 2.3 06/27/2020 [facility] mg/dL 2:13 PM CDT [facility] Specimen Anatomical Collection Method Collection Time Receive d Time (Source) Location / / Volume Laterality Blood 06/27/2020 8:27 AM 1 CDT 12:50 PM CDT Catalina Pennington APRN, CNP LAB BLOOD ORDERABLES Performing Organization Address City/State/ZIP Code Phon e Number [facility] [address] [place] [address] documented in this encounter Visit Diagnoses Diagnosis History of coronary vasospasm Mixed hyperlipidemia Essential hypertension Unspecified essential hypertension Postablative hypothyroidism Other postablative hypothyroidism documented in this encounter Care Teams Residential Direct Support Professional Relationship Specialty Start Date End Date Roopa Lopez MD PCP - General Family Medicine 07/15/19 02/26/[address] [place] [address] documented as of this encounter
--- OUTSIDE RECORDS SUMMARY | 2022-02-02 09:20 | XMS_ITS | Encounter Summary ---
:1970 Author Organization [facility] Address [address] [place] [address] Care Team Providers Name Role Phone Roopa Lopez MD Primary Care Provider Encounter Details Date Type Department Care Team Description 02/18/2020 Lab [facility] Screening examination for [facility] inf ectious disease [address] [place] [address] Social History Tobacco Use Types [...] Res ults for this RNA DETECTION, V ROTARY DUMP OPERATOR examination for procedur e are in infectious disease the resul ts section. documented in this encounter Results SARS Coronavirus 2 RNA detection, v (02/18/2020 7:58 AM ROTARY DUMP OPERATOR) [facility] Method Time Signature SARS Covid Nasopharyngeal 02/18/2020 [facility] specimen 4:41 PM ROTARY DUMP OPERATOR LABORATORIES source Patient Race White 02/18/2020 [facility] 4:41 PM ROTARY DUMP OPERATOR LABORATORIES Patient DECLINE 02/18/2020 [facility] Ethnicity 4:41 PM ROTARY DUMP OPERATOR LABORATORIES SARS CoV2 Undetected Undetected 02/18/2020 [facility] RNA 4:41 PM ROTARY DUMP OPERATOR LABORATORIES Comment: SARS-CoV-2 RNA absent. This result does not rule out COVID-19 in the patient, as the sensitiv ity of the test depends on the timing of the specimen co llection and the quality of the specimen. Result should b e correlated with patient's history and clinical presentat ion. Method - 02/18/2020 4:41 PM ROTARY DUMP OPERATOR [facility] Comment: THFSH- This test uses the TaqPath COVID- 19 Combo Kit ([employer] [place].) and is performed on the [employer] magnetic particle processor and [employer] Fast Dx Real-Time PCR System. It has rec eived Emergency Use Authorization (EUA) by the U.S. Food and Drug Administration. Performance characterist ics were verified by [facility] in a manner consistent wi CLIA requirements. Fact sheets for this Emergency Use Autho rization (EUA) can be found at the following links: https://www.fda.gov/media/456923/downloa d for Healthcare Providers https://www.fda.gov/media/048698/downloa d for Patients Test Performed by: [place] [address] [address] Brusher Operator: Butch Guerrero M.D. Ph. D.; CLIA# [id number] Specimen Anatomical Collection Method Collection Time Receive d Time (Source) Location / / Volume Laterality Swab 02/18/2020 7:58 AM 0 9:28 (Nasopharyngeal) ROTARY DUMP OPERATOR AM ROTARY DUMP OPERATOR Lina Goldstein APRN, MANAGING JEWELER LAB MOLECULAR DIAGNOSTICS O RDERABLES Performing Organization Address City/State/ZIP Code Phon e Number [facility] see result attachment for specific address documented in this encounter Visit Diagnoses Diagnosis Screening examination for infectious dis ease Screening examination for unspecified in fectious disease documented in this encounter Additional Health Concerns Infection Onset Date Last Indicated Resolved Time COVID-19 Rule Out 02/18/2020 02/18/2020 02/18/2020 4:4 1 PM ROTARY DUMP OPERATOR documented as of this encounter Care Teams Senior Civil Engineer Relationship Specialty Start Date End Date Roopa Lopez MD PCP - General Family Medicine 07/15/19 02/26/[address] [place] [address] documented as of this encounter
--- OUTSIDE RECORDS SUMMARY | 2022-02-02 09:20 | XMS_ITS | Encounter Summary ---
:1970 Author Organization [facility] Address [address] [place] [address] Care Team Providers Name Role Phone Tiffanie Mcgovern APRN, ELECTRIC SIGN ASSEMBLER Primary Care Provider [phone] Reason for Visit Reason Comments Cough Generalized Body Aches Nasal Congestion Encounter Details Date Type Department Care Team Description 02/27/2021 Office Visit Feliciano Restrepo, COVID-19 virus infection (Pr imary Dx); [address] [place]hea Guerre[place] [address] [place] [address] [place] Guerrero [place] [phone] Social History Tobacco Use Types Packs/Day Years [...] Comments Blood Pressure 126/84 02/27/2021 9:40 AM SHOWER ENCLOSURE INSTALLER Pulse 72 02/27/2021 9:40 AM SHOWER ENCLOSURE INSTALLER Temperature 37.1 ??C (98.8 ??F) 02/27/2021 9:40 AM SHOWER ENCLOSURE INSTALLER Respiratory Rate 12 02/27/2021 9:40 AM SHOWER ENCLOSURE INSTALLER Oxygen Saturation 96% 02/27/2021 9:40 AM SHOWER ENCLOSURE INSTALLER Inhaled Oxygen Concentration - - Weight 86.4 kg (190 lb 8 oz) 02/27/2021 9:40 AM SHOWER ENCLOSURE INSTALLER Height - - Body Mass Index 28.77 [...] specific instructions regarding their return to work. [facility] was notified of positive test result. ER ENCLOSURE INSTALLER documented in this encounter Progress Notes Feliciano [...] or constipation. She just flew back from [place], [place] a couple days ago. Was celebrating daughter's 23rd birthday and went out a bit. 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 The sinus drainage and [...] specific instructions regarding their return to work. [facility] was notified of positive test result. Return if symptoms worsen or fail to improve. Note created using voice dictation software. ER ENCLOSURE INSTALLER documented in this encounter Plan of Treatment Not on filedocumented as of this encounter Procedures Procedure Name Priority Date/Time Associated Diagnosis Comme nts FLU(A/B), RUDOLPH ID Routine 02/27/2021 10:00 AM Cough R esults for this NOW, PCR SHOWER ENCLOSURE INSTALLER procedure are i n the results section. COVID-19, RUDOLPH ID Routine 02/27/2021 10:00 AM Cough R esults for this NOW, PCR SHOWER ENCLOSURE INSTALLER procedure are i n the results section. documented in this encounter Results Flu, Rudolph ID Now, PCR (02/27/2021 10:00 AM SHOWER ENCLOSURE INSTALLER) Analysis Performed At [facility] Impact Driven Time Signature Flu Source Nasal 02/27/2021 [facility] 10:40 AM SHOWER ENCLOSURE INSTALLER FALLS Influenza A, NEGATIVE 02/27/2021 [facility] PCR 10:40 AM SHOWER ENCLOSURE INSTALLER FALLS Influenza B, NEGATIVE Negative 02/27/2021 [facility] PCR 10:40 AM SHOWER ENCLOSURE INSTALLER FALLS Flu Interp see below 02/27/2021 [facility] 10:40 AM SHOWER ENCLOSURE INSTALLER FALLS Comment: Flu A Viral RNA Not Detected; Flu B Viral RNA Not Detected. Testing was performed using the Rudolph I D NOW A & B 2 Assay. Specimen Anatomical Collection Method Collection Time Receive d Time (Source) Location / / Volume Laterality Swab 02/27/2021 10:00 02/27/2021 AM SHOWER ENCLOSURE INSTALLER 10:07 AM SHOWER ENCLOSURE INSTALLER Feliciano Anderson MD LAB MOLECULAR DIAGNOSTICS OR DERABLES Performing Organization Address City/[facility]/ZIP Code Phon e Number [facility] ROBERT GUERRERO [address] [place] [address] (ABNORMAL) Covid-19, Rudolph ID Now, PCR (02/27/2021 10:00 AM SHOWER ENCLOSURE INSTALLER) [facility] Method Time Signature Covid Source Nasal 02/27/2021 [facility] 10:40 AM SHOWER ENCLOSURE INSTALLER FALLS Covid-19, ID POSITIVE (A) Negative 02/27/2021 [facility] JONES Now PCR 10:40 AM SHOWER ENCLOSURE INSTALLER FALLS Comment: REPORTABLE DISEASE Agent. Must be report ed to [facility] within 1 working day. ??(Department rece iving report is responsible for filling out [facility]-Disease Report Card). Positive results do not [...] Laterality Swab (Nasal) 02/27/2021 10:00 02/27/2021 AM SHOWER ENCLOSURE INSTALLER 10:07 AM SHOWER ENCLOSURE INSTALLER Feliciano Anderson MD LAB MOLECULAR DIAGNOSTICS OR DERABLES Performing Organization Address City/State/ZIP Code Phon e Number [facility] ROBERT GUERRERO [address] [place] [address] documented in this encounter Visit Diagnoses Diagnosis COVID-19 virus infection - Primary Cough documented in this encounter Additional Health Concerns Infection Onset Date Last Indicated Resolved Time COVID-19 Rule Out 02/27/2021 02/27/2021 02/27/2021 10: 40 AM SHOWER ENCLOSURE INSTALLER documented as of this encounter Care Teams Gun Club Manager Relationship Specialty Start Date End Date Tiffanie Mcgovern, BUSINESS INTELLIGENCE MANAGER, ELECTRIC SIGN ASSEMBLER PCP - General Family Medicine 02/27/[address] [place] [address] [place] [address] documented as of this encounter
--- OUTSIDE RECORDS SUMMARY | 2022-02-02 09:20 | XMS_ITS | Encounter Summary ---
:1970 Author Organization [facility] Address [address] [place] [address] Care Team Providers Name Role Phone Roopa Lopez MD Primary Care Provider Reason for Visit Reason Comments Med Refill Encounter Details Date Type Department Care Team Description 07/05/2020 Refill [facility] Endocrinology Muthusamy, Postablative hypothyroidism [address] [place] [address] Social History Tobacco Use Types Packs/Day Years [...] Martinez LPN - 07/05/2020 7:47 AM CDT [facility] is requesting medication. Previous script was sent to [facility] Last visit in provider department: [...] hypothyroidism documented in this encounter Care Teams Fisher Diver Net Relationship Specialty Start Date End Date Roopa Lopez MD PCP - General Family Medicine 07/15/19 02/26/[address] [place] [address] documented as of this encounter
--- OUTSIDE RECORDS SUMMARY | 2022-02-02 09:20 | XMS_ITS | Encounter Summary ---
:1970 Author Organization [facility] Address [address] [place] [address] Care Team Providers Name Role Phone Tiffanie Mcgovern APRN, KYLE Primary Care Provider [phone] Reason for Visit Reason Comments Med Refill Encounter Details Date Type Department Care Team Description 04/03/2021 Refill [place] Roopa Lopez MD Anxiety [address] [place], [place] [address] [place], [place] [phone] (Wo rk) Social History Tobacco Use Types [...] AM CST Rx faxed to [facility] E MACHINE FEEDER Telephone Encounter - Chelsea Romero RN - 04/04/2021 10:53 AM CST Please fax Rx to pharmacy. E MACHINE FEEDER Telephone Encounter - Celsa Childs MA - [...] Last 2 Encounters: 02/27/21 126/84 09/20/20 126/88 E MACHINE FEEDER documented in this encounter Plan of Treatment Not on filedocumented as of this encounter Visit Diagnoses Diagnosis Anxiety Anxiety state, unspecified documented in this encounter Additional Health Concerns Infection Onset Date Last Indicated Resolved Time COVID-19 Confirmed 02/27/2021 02/27/2021 05/28/2021 8: 17 PM CDT documented as of this encounter Care Teams Sleep Technologist Relationship Specialty Start Date End Date Tiffanie Mcgovern, ELECTRONIC SYSTEMS SECURITY ASSESSMENT, FAITH HEALER PCP - General Family Medicine 02/27/[address] [place] [address] [place] [address] documented as of this encounter
--- OUTSIDE RECORDS SUMMARY | 2022-02-02 09:20 | XMS_ITS | Encounter Summary ---
:1970 Author Organization [facility] Address [address] [place] [address] Care Team Providers Name Role Phone Roopa Lopez MD Primary Care Provider Encounter Details Date Type Department Care Team Description 09/20/2020 Telephone [place] Roopa Lopez MD [address] [facility] [address] [place], [place] [address] [place], [place] [phone] (Wo rk) Social History Tobacco Use Types [...] Primary documented in this encounter Care Teams Launchman Relationship Specialty Start Date End Date Roopa Lopez MD PCP - General Family Medicine 07/15/19 02/26/[address] [place] [address] documented as of this encounter
--- OUTSIDE RECORDS SUMMARY | 2022-02-02 09:20 | XMS_ITS | Encounter Summary ---
:1970 Author Organization [facility] Address [address] [place] [address] Care Team Providers Name Role Phone Roopa Lopez MD Primary Care Provider Reason for Visit Reason Comments Hypothyroidism Graves' Disease Encounter Details Date Type Department Care Team Description 03/29/2020 [facility] Endocrinology [place], Postablative hypothyroidism (Primary Dx); [address] [place] Valerie Graves disease; [place] [address] Stress at home [phone] Social History Tobacco Use Types Packs/Day Years [...] CST 1. Call COVID triage line at [phone] 2. Continue the same dose of Levothyroxine 3. Recheck thyroid labs in 3 months R STRIPPER documented in this encounter Progress Notes Valerie [...] aged 20 and 16. 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 Review of systems: As in HPI. All [...] compliantly. 4. Patient was given contact for [place] [address] triage line with acute onset symptoms including myalgias. 5. Also with ongoing stress in life, recommended patient to communicate with us if desiring to proceed with psychology counseling at any time.. Patient understands and agrees with the above plan. R STRIPPER Belem Moraes - 03/29/2020 9:00 AM CST Scheduled. Patient will do labs in 3 months in [place] R STRIPPER documented in this encounter Plan of Treatment [...] LAB BLOOD ORDERABLES Performing Organization Address [facility] Phon e Number [facility] [address] [place] [address] T4, free (09/25/2020 8:21 AM CDT) P [...] LAB BLOOD ORDERABLES Performing Organization Address [facility] Phon e Number [facility] [address] [place] [phone] (ABNORMAL) TSH (06/27/2020 8:27 AM CDT) Analysis [...] LAB BLOOD ORDERABLES Performing Organization Address [facility] e Number [facility] [address] [place] [address] T4, free (06/27/2020 8:27 AM CDT) athologist Signature Free T4 1.31 0.78 - 2.19 06/27/2020 [facility] ng/dL 2:53 PM CDT CENTER LABORATORY [...] MD LAB BLOOD ORDERABLES Performing Organization Address City/[facility] Phon e Number [facility] [address] [place] [address] documented in this encounter Visit Diagnoses Diagnosis Postablative hypothyroidism - Primary Other postablative hypothyroidism Graves disease Toxic diffuse goiter without mention of thyrotoxic crisis or storm Stress at home documented in this encounter Care Teams Home Health Care Case Manager Relationship Specialty Start Date End Date Roopa Lopez MD PCP - General Family Medicine 07/15/19 02/26/[address] [place] [address] documented as of this encounter
--- OUTSIDE RECORDS SUMMARY | 2022-02-02 09:20 | XMS_ITS | Encounter Summary ---
:1970 Author Organization [facility] Address [address] [place] [address] Care Team Providers Name Role Phone Roopa Lopez MD Primary Care Provider Reason for Visit Reason Comments Med Refill Encounter Details Date Type Department Care Team Description 10/22/2020 Refill Roopa Caldwell, History of coronary [address] [facility] 20 vasospasm [place] [address] [phone] [place] [address] Social History Tobacco Use Types Packs/Day Years [...] Upcoming appointment with provider: none Last Rx: 11/10/19, #90, 3 refills Requested Prescriptions Pending Prescriptions [...] vasospasm documented in this encounter Care Teams Orthotic Technician Relationship Specialty Start Date End Date Roopa Lopez MD PCP - General Family Medicine 07/15/19 02/26/21 [address] [place] [address] documented as of this encounter
--- OUTSIDE RECORDS SUMMARY | 2022-02-02 09:20 | XMS_ITS | Encounter Summary ---
:1970 Author Organization [facility] Address [address] [place] [address] Care Team Providers Name Role Phone Roopa [...] Primary documented in this encounter Care Teams Journeyman Wireman Relationship Specialty Start Date End Date Roopa Lopez MD PCP - General Family Medicine 07/15/19 02/26/[address] [place] [address] documented as of this encounter
--- OUTSIDE RECORDS SUMMARY | 2022-02-02 09:20 | XMS_ITS | Encounter Summary ---
:1970 Author Organization [facility] Address [address] [place] [address] Care Team Providers Name Role Phone Roopa Lopez MD Primary Care Provider Reason for Visit Reason Comments Graves' Disease Hypothyroidism Encounter Details Date Type Department Care Team Description 09/27/2020 [facility] Endocrinology [place], Postablative hypothyroidism (Primary Dx); [address] [place] Valerie History [place] [address] Social History Tobacco Use Types Packs/Day Years [...] lose weight. Looking at a supplement called [employer] level has been ok. Has been exercising and walking. No bowel concerns. No tremors or palpitations. No temperature intolerance. Reports continued stress but mood being stable. Has been noticing more migraines. SOCIAL HISTORY: . Lives with her . Has 2 children aged 21 and 17. 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 Review of systems: As in HPI. All [...] disease documented in this encounter Care Teams Framing Mill Supervisor Relationship Specialty Start Date End Date Roopa Lopez MD PCP - General Family Medicine 07/15/19 02/26/21 [address] [place] [address] documented as of this encounter
--- OUTSIDE RECORDS SUMMARY | 2022-02-02 09:20 | XMS_ITS | Encounter Summary ---
:1970 Author Organization [facility] Address [address] [place] [address] Care Team Providers Name Role Phone Roopa [...] 9:58 AM Postablative Results f or this OPTIONS TRADER hypothyroidism procedure are in the results section. T4, FREE Routine 03/27/2020 9:58 AM Postablative Results f or this OPTIONS TRADER hypothyroidism procedure are in the results section. documented in this encounter Results TSH (03/27/2020 9:58 AM OPTIONS TRADER) athologist Signature TSH, Sensitive 0.87 0.46 - 03/28/2020 [facility] 4.68 mIU/L 3:06 PM OPTIONS TRADER [facility] Comment: The results from this [...] Volume Laterality Blood 03/27/2020 9:58 AM 1:18 OPTIONS TRADER PM OPTIONS TRADER Valerie Major MD LAB BLOOD ORDERABLES Performing Organization Address [facility] Phon e Number [facility] [address] [place] [address] T4, free (03/27/2020 9:58 AM OPTIONS TRADER) P athologist Signature Free T4 1.17 0.78 - 2.19 03/28/2020 [facility] ng/dL 2:36 PM OPTIONS TRADER [facility] Comment: The results from this [...] Volume Laterality Blood 03/27/2020 9:58 AM 1:18 OPTIONS TRADER PM OPTIONS TRADER Valerie Major MD LAB BLOOD ORDERABLES Performing Organization Address [facility] Code Phon e Number [facility] [address] [place] [address] documented in this encounter Visit Diagnoses Diagnosis Postablative hypothyroidism Other postablative hypothyroidism documented in this encounter Care Teams Freelance Web Designer Relationship Specialty Start Date End Date Roopa Lopez MD PCP - General Family Medicine 07/15/19 02/26/[address] [place] [address] documented as of this encounter
--- OUTSIDE RECORDS SUMMARY | 2022-02-02 09:20 | XMS_ITS | Encounter Summary ---
:1970 Author Organization [facility] Address [address] [place] [address] Care Team Providers Name Role Phone Tiffanie Mcgovern APRN, KYLE Primary Care Provider [phone] Reason for Visit Reason Comments Med Refill Encounter Details Date Type Department Care Team Description 06/11/2021 Refill [facility] Endocrinology Muthusamy, Postablative hypothyroidism [address] [place] [address] Social History Tobacco Use Types Packs/Day Years [...] hypothyroidism documented in this encounter Care Teams Product Delivery Specialist Relationship Specialty Start Date End Date Tiffanie Mcgovern, SPECIALIST ICU, UPKEEP WORKER PCP - General Family Medicine 02/27/[address] [place] [address] [place] [address] documented as of this encounter
--- OUTSIDE RECORDS SUMMARY | 2022-02-02 09:20 | XMS_ITS | Encounter Summary ---
:1970 Author Organization [facility] Address [address] [place] [address] Care Team Providers Name Role Phone Roopa Lopez MD Primary Care Provider Reason for Visit Reason Onset Date Comments RX 04/28/2020 Encounter Details Date Type Department Care Team Description 04/28/2020 [place], LEVEL VIAL MARKER RX [address] [place] [address] [place] [address] [phone] (Wo rk) Social History Tobacco Use Types [...] angina. Called and informed pharmacy and patient. S TENDER Telephone Encounter - Chelsea Romero RN - 04/28/2020 11:23 AM CST Pharmacy informed. S TENDER Telephone Encounter - Catalina Pennington APRN, CNP - 04/28/2020 10:44 AM CST Max 200mg/24hr. S TENDER Telephone Encounter - Chelsea Romero RN - 04/28/2020 10:01 AM CST Pharmacy has a question on patients Imitrex rx. They wanted to know if there is a max daily dose forthis medication? S TENDER Telephone Encounter - Tammi Bar - 04/28/2020 9:32 AM CST Pharmacy has questions on RX given yesterday. Please call [phone]. S TENDER documented in this encounter Plan of Treatment Not on filedocumented as of this encounter Visit Diagnoses Not on filedocumented in this encounter Care Teams Conduit Reamer Operator Relationship Specialty Start Date End Date Roopa Lopez MD PCP - General Family Medicine 07/15/19 02/26/21 [address] [place] [address] documented as of this encounter
--- OUTSIDE RECORDS SUMMARY | 2022-02-02 09:20 | XMS_ITS | Encounter Summary ---
:[address] [facility] Address [address] [place] [address] Care Team Providers Name Role Phone Roopa [...] 8:30 AM Postablative Results f or this INSPECTING AND TESTING LEAD HAND hypothyroidism procedure are in the results section. T4, FREE Routine 02/21/2021 8:30 AM Postablative Results f or this INSPECTING AND TESTING LEAD HAND hypothyroidism procedure are in the results section. documented in this encounter Results T4, free (02/21/2021 8:30 AM INSPECTING AND TESTING LEAD HAND) P athologist Signature Free T4 1.24 0.78 - 2.19 02/21/2021 [facility] ng/dL 2:16 PM [facility] TEST[facility] Comment: The results from this [...] Volume Laterality Blood 02/21/2021 8:30 AM 1 INSPECTING AND TESTING LEAD HAND 12:39 PM INSPECTING AND TESTING LEAD HAND Valerie Major MD LAB BLOOD ORDERABLES Performing Organization Address [facility] Phon e Number [facility] [address] [place] [address] TSH (02/21/2021 8:30 AM INSPECTING AND TESTING LEAD HAND) athologist Signature TSH, Sensitive 2.17 0.46 - 02/21/2021 [facility] 4.68 mIU/L 2:17 PM [facility] Comment: The results from this [...] Volume Laterality Blood 02/21/2021 8:30 AM 1 INSPECTING AND TESTING LEAD HAND 12:39 PM INSPECTING AND TESTING LEAD HAND Valerie Major MD LAB BLOOD ORDERABLES Performing Organization Address City/[facility] Phon e Number [facility] [address] [place] [address] documented in this encounter Visit Diagnoses Diagnosis Postablative hypothyroidism Other postablative hypothyroidism documented in this encounter Care Teams Stage Technician Relationship Specialty Start Date End Date Roopa Lopez MD PCP - General Family Medicine 07/15/19 02/26/[address] [place] [address] documented as of this encounter
--- OUTSIDE RECORDS SUMMARY | 2022-02-02 09:20 | XMS_ITS | Encounter Summary ---
:1970 Author Organization [facility] Address [address] [place] [address] Care Team Providers Name Role Phone Mynor Mcgovern APRN, KYLE Primary Care Provider [phone] Reason for Visit Reason Comments Med Refill Encounter Details Date Type Department Care Team Description 08/20/2021 Refill [place] Roopa Lopez, GUSTAVO (generalized anxiety [address] [facility] 20 MD disorder) Rogelio Guerrero [place] [address] [phone] [place] [address] Social History Tobacco Use Types Packs/Day Years [...] disorder documented in this encounter Care Teams Water Reclamation Systems Operator Relationship Specialty Start Date End Date Mynor Mcgovern APRN, JUNIOR MARKETING ASSOCIATE PCP - General Family Medicine 02/27/[address] [place] [address] [place] [address] documented as of this encounter
--- OUTSIDE RECORDS SUMMARY | 2022-02-02 09:20 | XMS_ITS | Encounter Summary ---
:1970 Author Organization [facility] Address [address] [place] [address] Care Team Providers Name Role Phone Tiffanie Mcgovern APRN, CNP Primary Care Provider [phone] Reason for Visit Reason Comments Med Refill Encounter Details Date Type Department Care Team Description 11/22/2021 [place]ill [place] Postablative hypothyroidism [address] MD [place]elio [place] 277 89 9993 [facility] [address] [place] [phone] [place] [address] Social History Tobacco Use Types Packs/Day Years [...] encounter Miscellaneous Notes Telephone Encounter - Alyce Pablo - 11/26/2021 9:48 AM CDT Pt called back and confirmed yes, Dennis Mcgovern is her primary and she does not need us filling any prescriptions. Pt was told to double check with her pharmacy to make sure they are sending her refill requests to Dennis Mcgovern in [place]. Pt agreed. Telephone Encounter - Alyce Shah - 11/26/2021 9:01 AM CDT Noted. Telephone Encounter - Doris Garcia RN - 11/26/2021 8:34 AM CDT Left message on secured line for patient to contact PCP in [place] for refills and to advise pharmacyof change. Encouraged call to this clinic if needed. Telephone Encounter - Doris Garcia RN - 11/26/2021 8:34 AM CDT Advised patient to contact pharmacy and new provider for refills. Encouraged a call to clinic with any questions. Telephone Encounter - Maris Gunderson MA - 11/26/2021 6:05 AM CDT Last visit in provider department: 02/27/21 Last visit requested medication was discussed: med/dx has not been reviewed in the last year Last Rx: 06/11/21, #90, 1 refill Requested Prescriptions Pending Prescriptions Disp Refills ??? levothyroxine (SYNTHROID) 100 MCG tablet [Pharmacy Med Name: LEVOTHYROXINE SODIUM 100MCG TABS] 90 tablet 1 Sig: TAKE 1 TABLET BY MOUTH DAILY 6 DAYS OF THE WEEK (FRIDAY THRU FRIDAY) AND TAKE ONE AND ONE-HALF TABLETS ON FRIDAY Labs: Component Latest Ref Rng & Units 02/21/2021 TSH 0.46 - 4.68 mIU/L 2.17 Vitals: BP Readings from Last 2 Encounters: 02/27/21 126/84 09/20/20 126/88 Upcoming appointment with provider: Visit date not found Patient is due for an appointment. PSR/Nurse: Please contact patient to assist with scheduling. documented in this encounter Plan of Treatment Not on filedocumented as of this encounter Visit Diagnoses Diagnosis Postablative hypothyroidism Other postablative hypothyroidism documented in this encounter Care Teams Applications Analyst Relationship Specialty Start Date End Date Tiffanie Mcgovern, FISHERIES DIRECTOR, EAP CLINICIAN PCP - General Family Medicine 02/27/[address] [place] [address] documented as of this encounter
--- OUTSIDE RECORDS SUMMARY | 2022-02-02 09:20 | XMS_ITS | Encounter Summary ---
:[address] [facility] Address [address] [place] [address] Care Team Providers Name Role Phone Roopa Lopez MD Primary Care Provider Encounter Details Date Type Department Care Team Description 06/29/2020 Lab Robert [place] Mixed hyperlipidemia [address] ERNESTO Ramirez 550 [...] Results Microalbumin/Creatinine Ratio (06/29/2020 8:30 AM CDT) P athologist Signature Microalbumin,m 7.1 0.0 - 16.6 06/29/2020 [facility] g/day mg/L 3:01 PM CDT [facility] Comment: . Creatinine, Urine 185 mg/dL 06/29/2020 3:02 PM CDT [facility] Comment: No established reference range. Microalb/Creat Ratio 4 0 - 24 mg/g 06/29/2020 3:0 2 PM CDT [facility] Specimen Anatomical Collection Method Collection Time Receive d Time (Source) Location / / Volume Laterality Urine 06/29/2020 8:30 AM CDT 12:33 PM CDT Catalina Pennington APRN, MANAGER ORGANIZATIONAL LAB URINE ORDERABLES Performing Organization Address City/State/ZIP Code Phon e Number [facility] [address] [place] [address] documented in this encounter Visit Diagnoses Diagnosis Mixed hyperlipidemia documented in this encounter Care Teams Filler Leaf Cutter Long Relationship Specialty Start Date End Date Roopa Lopez MD PCP - General Family Medicine 07/15/19 02/26/21 [address] [place] [address] documented as of this encounter
--- OUTSIDE RECORDS SUMMARY | 2022-02-02 09:20 | XMS_ITS | Encounter Summary ---
:1970 Author Organization [facility] Address [address] [place] [address] Care Team Providers Name Role Phone Roopa Lopez MD Primary Care Provider Reason for Visit Reason Comments Migraine Encounter Details Date Type Department Care Team Description 09/20/2020 Office Visit Roopa Caldwell Migraine without status migr ainosus, not intractable, unspecified migraine type (Primary Dx); [address] [facility] 20 MD Raheel [facility] [place], [place] 499 73 5283 [facility] 20 [place] [address] Social History Tobacco Use Types Packs/Day Years [...] documented in this encounter Progress Notes Roopa Lpoez MD - 09/20/2020 4:00 PM CDT Estab Patient Visit Subjective Patient ID: Laura Novak is a 50 y.o. female. HPI the patient is here today because of a bad migraine headache. The patient is our 50-year-old individual who has had a history of migraine headaches going back 30+years if not more. [facility] and at [...] dose documented in this encounter Care Teams Early Intervention School Psychologist Relationship Specialty Start Date End Date Roopa Lopez MD PCP - General Family Medicine 07/15/19 02/26/[address] [place] [address] documented as of this encounter
--- OUTSIDE RECORDS SUMMARY | 2022-02-02 09:20 | XMS_ITS | Encounter Summary ---
:1970 Author Organization [facility] Address [address] [place] [address] Care Team Providers Name Role Phone Roopa Lopez MD Primary Care Provider Encounter Details Date Type Department Care Team Description 01/09/2021 Orders Only SE Family Med Roopa Lopez MD [address] [facility] [address] [place] [address] [place], [place] [phone] [address] (Wo rk) Social History Tobacco Use Types [...] on filedocumented in this encounter Care Teams Unit Aid Relationship Specialty Start Date End Date Roopa Lopez MD PCP - General Family Medicine 07/15/19 02/26/[address] [place] [address] documented as of this encounter
--- OUTSIDE RECORDS SUMMARY | 2022-02-02 09:20 | XMS_ITS | Encounter Summary ---
:[address] [facility] Address [address] [place] [address] Care Team Providers Name Role Phone Roopa Lopez MD Primary Care Provider Reason for Visit Reason Onset Date Comments Naproxen Rx 05/01/2020 Encounter Details Date Type Department Care Team Description 05/01/2020 Telephone [place]ina Harkins, ALVERTO, TABLE TOP TILE SETTER Naproxen Rx [address] [facility] [place] [address] [address] [place] [address] [phone] (Wo rk) Social History Tobacco Use Types [...] - 05/01/2020 10:34 AM CST Patient informed. OR CIVIL ENGINEER Telephone Encounter - Catalina Pennington APRN, CNP - 05/01/2020 10:26 AM CST Sent a different naproxen. Also she don't have to use Asprin 81mg daily as discussed I sent a my chart message but looks like she have not read it. OR CIVIL ENGINEER Telephone Encounter - Chelsea Romero RN - 05/01/2020 10:21 AM CST Pharmacy called stating the Naproxen EC is expensive and the patient did not pick this up. They are wondering they can substitute for the regular Naproxen or if it has to be delayed release? OR CIVIL ENGINEER Telephone Encounter - Chelsea Romero RN - 05/01/2020 9:36 AM CST No answer at pharmacy. OR CIVIL ENGINEER Telephone Encounter - Alyce Shah - 05/01/2020 8:35 AM CST Martin with [facility] called requesting to talk with a nurse about Pt's Naproxen delayed release Rx. Please call Martin at [phone] to advise. OR CIVIL ENGINEER documented in this encounter Plan of Treatment Not on filedocumented as of this encounter Visit Diagnoses Diagnosis Migraine with aura and without status mi grainosus, not intractable - Primary documented in this encounter Care Teams Special Education Superintendent Relationship Specialty Start Date End Date Roopa Lopez MD PCP - General Family Medicine 07/15/19 02/26/[address] [place] [address] documented as of this encounter
--- OUTSIDE RECORDS SUMMARY | 2022-02-02 09:20 | XMS_ITS | Encounter Summary ---
:1970 Author Organization [facility] Address [address] [place] [address] Care Team Providers Name Role Phone Tiffanie Mcgovern APRN, LANGUAGE ASST Primary Care Provider [phone] Reason for Visit Reason Onset Date Comments Med Refill 06/13/2021 Encounter Details Date Type Department Care Team Description 06/13/2021 Refill Roopa Caldwell, Mixed hyperlipidemia [address] [place]NESTO Concepcion [address] [phone] [place] Ramirez [address] (Wo rk) Social History Tobacco Use Types [...] hyperlipidemia documented in this encounter Care Teams Tissue Recovery Technician Relationship Specialty Start Date End Date Tiffanie Mcgovern APRN, LANGUAGE ASST PCP - General Family Medicine 02/27/[address] [place] [address] [place] [address] documented as of this encounter
--- OUTSIDE RECORDS SUMMARY | 2022-02-02 09:20 | XMS_ITS | Encounter Summary ---
:1970 Author Organization [facility] Address [address] [place] [address] Care Team Providers Name Role Phone Roopa Lopez MD Primary Care Provider Encounter Details Date Type Department Care Team Description 05/31/2020 Orders Only SE Family Med Roopa Lopez MD [address] [place] [address] [place], [place] [phone] (Wo rk) Social History Tobacco Use Types [...] on filedocumented in this encounter Care Teams Bowstring Maker Relationship Specialty Start Date End Date Roopa Lopez MD PCP - General Family Medicine 07/15/19 02/26/[address] [place] [address] documented as of this encounter
--- OUTSIDE RECORDS SUMMARY | 2022-02-02 09:20 | XMS_ITS | Encounter Summary ---
:1970 Author Organization [facility] Address [address] [place] [address] Care Team Providers Name Role Phone Roopa Lopez MD Primary Care Provider Reason for Visit Reason Comments Follow-up Encounter Details Date Type Department Care Team Description 06/29/2020 Office Visit Rogelio Guerrero Catalina Pennington A, Moderate episode of recurren t major depressive disorder (HCC) (Primary Dx); [address] PURCHASER AUTOMOTIVE PARTS, SMALL APPLIANCE ASSEMBLY SUPERVISOR Anxiety; ERNESTO [place] [address] Insomnia, unspecified type; [phone] [place], [place] Migraine with aura and without status migrainosus, not intractable; [address] Weight disorder; [phone] Urinary inconti nence, unspecified type (Work) Social [...] ??? Follow-up HPI Patient presents to the [facility] for questions about weight gain and [...] therapy and states her daughter is a regional sales trainer. Also trying to lose weight and [...] type documented in this encounter Care Teams Astrophysics Teacher Relationship Specialty Start Date End Date Roopa Lopez MD PCP - General Family Medicine 07/15/19 02/26/[address] [place] [address] documented as of this encounter
--- OUTSIDE RECORDS SUMMARY | 2022-02-02 09:20 | XMS_ITS | Encounter Summary ---
:1970 Author Organization Address [address] [place] [address] Care Team Providers Name Role Phone Tiffanie Mcgovern APRN, KYLE Primary Care Provider [phone] Reason for Visit Reason Comments Med Refill Encounter Details Date Type Department Care Team Description 09/13/2021 Refill [place], GUSTAVO (generalized anxiety [address] [facility] 20 MD disorder) Rogelio Guerrero [place] [address] [phone] [place] [address] Social History Tobacco Use Types Packs/Day Years [...] disorder documented in this encounter Care Teams Day Care Director Relationship Specialty Start Date End Date Tiffanie Mcgovern, AIR SURVEILLANCE OPERATOR, RAG GRADER PCP - General Family Medicine 02/27/[address] [place] [address] [place] [address] documented as of this encounter
--- OUTSIDE RECORDS SUMMARY | 2022-02-02 09:21 | XMS_ITS | Encounter Summary ---
:1970 Author Organization [facility] Address [address] [place] [address] Care Team Providers Name Role Phone Roopa Lopez MD Primary Care Provider Reason for Visit Reason Comments Med Refill Encounter Details Date Type Department Care Team Description 11/08/2019 Refill Roopa Caldwell, History of coronary [address] [facility] vasospasm [place] [address] [phone] [place] [address] Social History Tobacco Use Types Packs/Day Years [...] vasospasm documented in this encounter Care Teams Keeper Head Relationship Specialty Start Date End Date Roopa Lopez MD PCP - General Family Medicine 07/15/19 02/26/[address] [place] [address] documented as of this encounter
--- OUTSIDE RECORDS SUMMARY | 2022-02-02 09:21 | XMS_ITS | Encounter Summary ---
:1970 Author Organization [facility] Address [address] [place] [address] Care Team Providers Name Role Phone Roopa Lopez MD Primary Care Provider Encounter Details Date Type Department Care Team Description 10/22/2019 Telephone SE Endocrinology Valerie Major MD [address] [place], [place] [address] Social History Tobacco Use Types Packs/Day Years [...] and verbalized an understanding. Transferred [facility]/u appt. Telephone Encounter - Valerie Major [...] BLOOD ORDERABLES Performing Organization Address City/[facility]/ZIP Code Phon e Number [facility] [address] [place] [address] TSH (12/22/2019 1:11 PM CDT) athologist Signature [...] BLOOD ORDERABLES Performing Organization Address City/[facility] Code Phon e Number [facility] [address] [place] [address] documented in this encounter Visit Diagnoses Diagnosis Postablative hypothyroidism Other postablative hypothyroidism documented in this encounter Care Teams Supervisor Looping Relationship Specialty Start Date End Date Roopa Lopez MD PCP - General Family Medicine 07/15/19 02/26/21 [address] [facility] 20 [place] [address] documented as of this encounter
--- OUTSIDE RECORDS SUMMARY | 2022-02-02 09:21 | XMS_ITS | Encounter Summary ---
:1970 Author Organization [facility] Address [address] [place] [address] Care Team Providers Name Role Phone Roopa Lopez MD Primary Care Provider Encounter Details Date Type Department Care Team Description 10/18/2019 Telephone SE Endocrinology Valerie Major MD [address] [place], [place] [address] Social History Tobacco Use Types Packs/Day Years [...] on filedocumented in this encounter Care Teams Harvest Worker Fruit Relationship Specialty Start Date End Date Roopa Lopez MD PCP - General Family Medicine 07/15/19 02/26/[address] [place] [address] documented as of this encounter
--- OUTSIDE RECORDS SUMMARY | 2022-02-02 09:21 | XMS_ITS | Encounter Summary ---
:[address] [facility] Address [address] [place] [address] Care Team Providers Name Role Phone Roopa Lopez MD Primary Care Provider Reason for Visit Reason Onset Date Comments Covid Triage 02/18/2020 Encounter Details Date Type Department Care Team Description [facility] Jeyson Keating APRN, Covid Triage [address] [facility] [address] [place], [place] [address] [place] [address] [phone] [address] (Wo rk) Social History Tobacco Use [...] this encounter Progress Notes Jeyson Keating APRN, LEAD APPLICATIONS DEVELOPER - 02/18/2020 7:50 AM CST 02/18/20 0700 [...] request atelehealth visit when calling to schedule. TREASURER documented in this encounter Plan of Treatment Not on filedocumented as of this encounter Results SARS Coronavirus 2 RNA detection, v (02/18/2020 7:58 AM VP TREASURER) [facility] Method Time Signature SARS Covid Nasopharyngeal 02/18/2020 [facility] specimen 4:41 PM [facility] source Patient Race White 02/18/2020 [facility] 4:41 PM [facility] Patient DECLINE 02/18/2020 [facility] Ethnicity 4:41 PM [facility] SARS CoV2 Undetected Undetected 02/18/2020 [facility] RNA 4:41 PM [facility] Comment: SARS-CoV-2 RNA absent. This result does not rule out COVID-19 in the patient, as the sensitiv ity of the test depends on the timing of the specimen co llection and the quality of the specimen. Result should b e correlated with patient's history and clinical presentat ion. Method - 02/18/2020 4:41 PM VP TREASURER [facility] Comment: THFSH- This test uses the TaqPath COVID- 19 Combo Kit ([employer].) and is performed on the Sprig magnetic particle processor and [employer] 7500 Fast Dx Real-Time PCR System. It has rec eived Emergency Use Authorization (EUA) by the U.S. Food and Drug Administration. Performance characterist ics were verified by [facility] in a manner consistent wi CLIA requirements. Fact sheets for this Emergency Use Autho rization (EUA) can be found at the following links: https://www.fda.gov/media/391241/downloa d for Healthcare Providers https://www.fda.gov/media/252634/downloa d for Patients Test Performed by: [facility] [address] [address] 90 Agriculture Teacher: Butch Guerrero M.D. Ph. D.; CLIA# [id number] Specimen Anatomical Collection Method Collection Time Receive d Time (Source) Location / / Volume Laterality Swab 02/18/2020 7:58 AM 0 9:28 (Nasopharyngeal) VP TREASURER AM VP TREASURER Lina Goldstein APRN, LEAD APPLICATIONS DEVELOPER LAB MOLECULAR DIAGNOSTICS O RDERABLES Performing Organization Address City/State/ZIP Code Phon e Number [facility] see result attachment for specific address documented in this encounter Visit Diagnoses Diagnosis Screening examination for infectious dis ease - Primary Screening examination for unspecified in fectious disease documented in this encounter Care Teams Investment Representative Relationship Specialty Start Date End Date Roopa Lopez MD PCP - General Family Medicine 07/15/19 02/26/[address] [place] [address] documented as of this encounter
--- OUTSIDE RECORDS SUMMARY | 2022-02-02 09:21 | XMS_ITS | Encounter Summary ---
:1970 Author Organization [facility] Address [address] [place] [address] Care Team Providers Name Role Phone Roopa Lopez MD Primary Care Provider Reason for Referral Consultation (Routine) - Closed Specialty Diagnoses / Procedures Referred By Contact Refer red To Contact Diagnoses Right lower quadrant abdominal pain Penny Palacios MD [address] [place] [address] [address] [place] [address] Phone: Fax: Referral ID Status Reason Start Date Expiration Date Visits Requ ested Visits Authorized [id number] Closed 11/04/2019 11/04/2020 1 1 Reason for Visit Reason Comments Lower Right Side Pain Encounter Details Date Type Department Care Team Description 11/04/2019 Office Visit [place] Right lower quadrant [address] MD Calvin abdominal pain [place], [place] (Primary Dx ) [id number] Social History Tobacco Use Types Packs/Day Years [...] by mouth every night 1 to 2 [id number] tablet 3 ??? verapamil ER (VERELAN) 240 [...] which was able to beset up at [facility] in [place]. I have asked them to call me [...] with reflex microscopic (11/04/2019 9:45 AM CDT) [facility] gist Method Time Signature Type CLEAN CATCH 11/04/2019 [facility] 10:12 AM CDT [place] Color, Urine YELLOW YELLOW 11/04/2019 [facility] 10:12 AM CDT [place] Clarity, CLEAR CLEAR 11/04/2019 [facility] Urine 10:12 AM CDT [place] Glucose, NEGATIVE NEGATIVE 11/04/2019 [facility] Urine mg/dL 10:12 AM CDT [place] Bilirubin, NEGATIVE NEGATIVE 11/04/2019 [facility] Urine 10:12 AM CDT [place] Ketones, NEGATIVE NEGATIVE 11/04/2019 [facility] Urine mg/dL 10:12 AM CDT [place] Specific 1.020 1.000 11/04/2019 [facility] Higginson, ->=1.030 10:12 AM CDT [place] Urine Blood, Urine NEGATIVE NEGATIVE 11/04/2019 [facility] 10:12 AM CDT [place] pH, Urine 7.5 (A) 5.0 - 7.0 11/04/2019 [facility] 10:12 AM CDT [place] Protein, NEGATIVE NEGATIVE-TRA 11/04/2019 [facility] Urine CE mg/dL 10:12 AM CDT [place] Urobilinogen, 0.2 0.2 - 1.0 11/04/2019 [facility] Urine E.U./dL 10:12 AM CDT [place] Nitrite, NEGATIVE NEGATIVE 11/04/2019 [facility] Urine 10:12 AM CDT [place] Leukocytes, NEGATIVE NEGATIVE 11/04/2019 [facility] Urine 10:12 AM CDT [place] Specimen Anatomical Collection Method Collection Time Receive d Time (Source) Location / / Volume Laterality Urine (Urine, 11/04/2019 9:45 AM 11/04/19 20 9:47 Clean Catch) CDT AM CDT Penny Palacios MD LAB URINE ORDERABLES Performing Organization Address City/State/ZIP Code Phon e Number [facility] [place] [address] [place] [address] Basic metabolic panel (11/04/2019 9:40 AM CDT) P athologist Signature Sodium 136 135 - 145 11/04/2019 [facility] mmol/L 10:11 AM CDT [place] Potassium 4.3 3.5 - 5.1 11/04/2019 [facility] mmol/L 10:11 AM CDT [place] Comment: . Chloride 104 98 - 107 mmol/L 11/04/2019 10:11 AM CDT [facility] [place] Comment: . CO2 27 22 - 29 mmol/L 11/04/2019 10:11 AM CDT [facility] [place] Comment: . Creatinine 0.6 0.4 - 1.2 mg/dL 11/04/2019 10:11 AM CDT [facility] [place] Comment: . BUN 12 5 - 25 mg/dL 11/04/2019 10:11 AM CDT [facility] [place] Comment: . Glucose 97 70 - 100 mg/dL 11/04/2019 10:11 AM CDT [facility] [place] Calcium, Total,S 9.7 8.4 - 10.2 mg/dL 11/04/2019 10:11 AM CDT [facility] [place] Comment: . Fasting? Yes 11/04/2019 9:50 AM CDT [facility] CAN NON [place] Specimen Anatomical Collection Method Collection Time Receive d Time (Source) Location / / Volume Laterality Blood 11/04/2019 9:40 AM 0 9:50 CDT AM CDT Penny Palacios MD LAB BLOOD ORDERABLES Performing Organization Address City/State/ZIP Code Phon e Number [facility] [place] [address] [place] [address] CBC Branch Off w/Diff (11/04/2019 9:40 AM CDT) P athologist Signature WBC 5.9 3.5 - 10.5 11/04/2019 [facility] K/uL 10:11 AM CDT [place] RBC 4.75 3.90 - 11/04/2019 [facility] 5.00 M/uL 10:11 AM CDT [place] Hemoglobin 14.5 12.0 - 11/04/2019 [facility] 15.5 g/dL 10:11 AM CDT [place] Hematocrit 41.2 35.0 - 11/04/2019 [facility] 44.0 % 10:11 AM CDT [place] Platelets 327 150 - 450 11/04/2019 [facility] K/uL 10:11 AM CDT [place] MCV 86.7 81.6 - 11/04/2019 [facility] 98.3 fL 10:11 AM CDT [place] MCH 30.5 26.0 - 11/04/2019 [facility] 32.0 pg 10:11 AM CDT [place] MCHC 35.2 32.0 - 11/04/2019 [facility] 36.0 g/dL 10:11 AM CDT [place] RDW 14.3 11.9 - 11/04/2019 [facility] 15.5 % 10:11 AM CDT [place] Lymphocytes % 26.8 % 11/04/2019 [facility] 10:11 AM CDT [place] Mid-size Cells 12.0 % 11/04/2019 [facility]ES 10:11 AM CDT [place] Granulocytes/Leslie 61.2 % 11/04/2019 [facility] trophils 10:11 AM CDT [place] Lymphocytes 1.6 0.9 - 2.9 11/04/2019 [facility] ROBERT Absolute K/uL 10:11 AM CDT [place] MIDS Absolute 0.7 0.4 - 1.5 11/04/2019 [facility] K/uL 10:11 AM CDT [place] Granulocytes/Leslie 3.6 1.7 - 7.0 11/04/2019 [facility]ERT trophils K/uL 10:11 AM CDT [place] Absolute Specimen Anatomical Collection Method Collection Time Receive d Time (Source) Location / / Volume Laterality Blood 11/04/2019 9:40 AM 0 9:50 CDT AM CDT Penny Palacios MD LAB BLOOD ORDERABLES Performing Organization Address City/State/ZIP Code Phon e Number [facility] [place] [address] [place] [address] documented in this encounter Visit Diagnoses Diagnosis Right lower quadrant abdominal pain - Pr imary documented in this encounter Care Teams Billet Straightener Relationship Specialty Start Date End Date Roopa Lopez MD PCP - General Family Medicine 07/15/19 02/26/[address] [place] [address] documented as of this encounter
--- OUTSIDE RECORDS SUMMARY | 2022-02-02 09:21 | XMS_ITS | Encounter Summary ---
:1970 Author Organization [facility] Address [address] [place] [address] Care Team Providers Name Role Phone Roopa [...] Signature TSH, Sensitive 2.70 0.46 - [facility]L [facility]:54 PM CDT CENTER [...] Performing Organization Address [facility] Phon e Number [facility] [address] [place] [address] T4, free (10/14/2019 8:03 AM CDT) P athologist Signature Free T4 1.19 0.78 - 2.19 10/14/2019 [facility] ng/dL 3:54 PM CDT CENTER LABOR[facility]ORY [...] Performing Organization Address [facility] Phon e Number [facility] [address] [place] [address] documented in this encounter Visit Diagnoses Diagnosis Postablative hypothyroidism Other postablative hypothyroidism documented in this encounter Care Teams Associate Professor Of Biblical Studies Relationship Specialty Start Date End Date Roopa Lopez MD PCP - General Family Medicine 07/15/19 02/26/[address] [place] [address] documented as of this encounter
--- OUTSIDE RECORDS SUMMARY | 2022-02-02 09:21 | XMS_ITS | Encounter Summary ---
:1970 Author Organization [facility] Address [address] [place] [address] Care Team Providers Name Role Phone Roopa Lopez MD Primary Care Provider Encounter Details Date Type Department Care Team Description 11/04/2019 [place]phone [place] [facility] [address] [facility] [address] [place], [place] [address] [place], [place] [phone] (Wo rk) Social History Tobacco Use Types [...] face sheet and lab results faxed to [facility] radiology as requested (STAT). documented in this encounter Plan of Treatment Not on filedocumented as of this encounter Visit Diagnoses Not on filedocumented in this encounter Care Teams Channel Lip Wetter Relationship Specialty Start Date End Date Roopa Lopez MD PCP - General Family Medicine 07/15/19 02/26/[address] [place] [address] documented as of this encounter
--- OUTSIDE RECORDS SUMMARY | 2022-02-02 09:21 | XMS_ITS | Encounter Summary ---
:[address] [facility] Address [address] [place] [address] Care Team Providers Name Role Phone Roopa Lopez MD Primary Care Provider Reason for Visit Reason Comments Med Refill Encounter Details Date Type Department Care Team Description 11/11/2019 Refill Roopa Caldwell, Edema, unspecified type [address] [place]pcion [phone] [phone] [place] [address] Social History Tobacco Use Types Packs/Day Years [...] Telephone Encounter - Kika Au MA - 11/13/2019 11:31 AM CDT Last visit in provider department: 11/04/2019 Dr. Palacios Last visit requested medication was discussed: 09/08/2019 Upcoming appointment with provider: 12/28/2019 Last Rx: #30 +1 refill 08/12/2019 Requested Prescriptions Pending Prescriptions Disp Refills ??? furosemide (LASIX) 20 MG tablet [Pharmacy Med Name: FUROSEMIDE 20MG TABS] 30 tablet 1 Sig: TAKE ONE TABLET BY MOUTH EVERY DAY Labs: C-8 Component Latest Ref Rng & Units 11/04/2019 Sodium 135 - 145 mmol/L 136 Potassium 3.5 - 5.1 mmol/L 4.3 Chloride 98 - 107 mmol/L 104 CO2 22 - 29 mmol/L 27 Creatinine 0.4 - 1.2 mg/dL 0.6 BUN 5 - 25 mg/dL 12 Glucose 70 - 100 mg/dL 97 Calcium, Total,S 8.4 - 10.2 mg/dL 9.7 Fasting? Yes Vitals: BP Readings from Last 2 Encounters: 11/04/19 144/90 10/18/19 120/62 documented in this encounter Plan of Treatment Not on filedocumented as of this encounter Visit Diagnoses Diagnosis Edema, unspecified type documented in this encounter Care Teams Law Enforcement Instructor Relationship Specialty Start Date End Date Roopa Lopez MD PCP - General Family Medicine 07/15/19 02/26/[address] [place] [address] documented as of this encounter
--- OUTSIDE RECORDS SUMMARY | 2022-02-02 09:21 | XMS_ITS | Encounter Summary ---
:1970 Author Organization [facility] Address [address] [place] [address] Care Team Providers Name Role Phone Roopa [...] 4:01 PM Postablative Results f or this MARKETING COMMUNICATIONS COORDINATOR hypothyroidism procedure are in the results section. T4, FREE Routine 02/14/2020 4:01 PM Postablative Results f or this MARKETING COMMUNICATIONS COORDINATOR hypothyroidism procedure are in the results section. documented in this encounter Results T4, free (02/14/2020 4:01 PM MARKETING COMMUNICATIONS COORDINATOR) P athologist Signature Free T4 1.07 0.78 - 2.19 02/15/2020 [facility] ng/dL 3:25 PM MARKETING COMMUNICATIONS COORDINATOR [facility] Comment: The results from this [...] Laterality Blood 02/14/2020 4:01 PM 0 2:29 MARKETING COMMUNICATIONS COORDINATOR PM MARKETING COMMUNICATIONS COORDINATOR Valerie Major MD LAB BLOOD ORDERABLES Performing Organization Address City/[facility] Code Phon e Number [facility] [address] [place] [address] TSH (02/14/2020 4:01 PM MARKETING COMMUNICATIONS COORDINATOR) athologist Signature TSH, Sensitive 0.93 0.46 - 02/15/2020 [facility] L 4.68 mIU/L 3:36 PM MARKETING COMMUNICATIONS COORDINATOR [facility] Comment: The results from this [...] Laterality Blood 02/14/2020 4:01 PM 0 2:29 MARKETING COMMUNICATIONS COORDINATOR PM MARKETING COMMUNICATIONS COORDINATOR Valerie Major MD LAB BLOOD ORDERABLES Performing Organization Address [facility] Phon e Number [facility] [address] [place] [address] documented in this encounter Visit Diagnoses Diagnosis Postablative hypothyroidism Other postablative hypothyroidism documented in this encounter Care Teams Chemical Supervisor Relationship Specialty Start Date End Date Roopa Lopez MD PCP - General Family Medicine 07/15/19 02/26/[address] [place] [address] documented as of this encounter"
--- OUTSIDE RECORDS SUMMARY | 2022-02-02 09:21 | XMS_ITS | Encounter Summary ---
:1970 Author Organization [facility] Address [address] [place] [address] Care Team Providers Name Role Phone Roopa Lopez MD Primary Care Provider Reason for Visit Reason Comments Graves' Disease Encounter Details Date Type Department Care Team Description 12/28/2019 [facility] Endocrinology [place], Postablative hypothyroidism (Primary Dx); [address] MD Valerie Graves disease; [place] [address] Generalized edema [phone] Social History Tobacco Use Types Packs/Day Years [...] aged 20 and 16. 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 Review of systems: As in HPI. All [...] this encounter Results TSH (03/27/2020 9:58 AM KILN STACKER) athologist Signature TSH, Sensitive 0.87 0.46 - 03/28/2020 [facility] L 4.68 mIU/L 3:06 PM KILN STACKER [facility] Comment: The results from this [...] Laterality Blood 03/27/2020 9:58 AM 1 1:18 KILN STACKER PM KILN STACKER Valerie Major MD LAB BLOOD ORDERABLES Performing Organization Address City/State/ZIP Code Phon e Number [facility] [address] [place] [address] T4, free (03/27/2020 9:58 AM KILN STACKER) athologist Signature Free T4 1.17 0.78 - 2.19 03/28/2020 [facility] ng/dL 2:36 PM KILN STACKER [facility] Comment: The results from this [...] Volume Laterality Blood 03/27/2020 9:58 AM 1:18 KILN STACKER PM KILN STACKER Valerie Major MD LAB BLOOD ORDERABLES Performing Organization Address City/State/ZIP Code Phon e Number [facility] [address] [place] [address] documented in this encounter Visit Diagnoses Diagnosis Postablative hypothyroidism - Primary Other postablative hypothyroidism Graves disease Toxic diffuse goiter without mention of thyrotoxic crisis or storm Generalized edema Edema documented in this encounter Care Teams Content Curator Relationship Specialty Start Date End Date Roopa Lopez MD PCP - General Family Medicine 07/15/19 02/26/[address] [place] [address] documented as of this encounter
--- OUTSIDE RECORDS SUMMARY | 2022-02-02 09:21 | XMS_ITS | Encounter Summary ---
:1970 Author Organization [facility] Address [address] [place] [address] Care Team Providers Name Role Phone Roopa Lopez MD Primary Care Provider Reason for Visit Reason Onset Date Comments Med Refill 12/06/2019 Encounter Details Date Type Department Care Team Description 12/06/2019 Refill Roopa Caldwell Hyperlipidemia, unspecified hyperlipidemia type; [address] MD [place]he[place] Insomnia, unspecified type [place] Ramirez [phone] [phone] [place] [address] Social History Tobacco Use Types Packs/Day Years [...] type documented in this encounter Care Teams Donor Floor Technician Relationship Specialty Start Date End Date Roopa Lopez MD PCP - General Family Medicine 07/15/19 02/26/[address] [place] [address] documented as of this encounter
--- OUTSIDE RECORDS SUMMARY | 2022-02-02 09:21 | XMS_ITS | Encounter Summary ---
:1970 Author Organization [facility] Address [address] [place] [address] Care Team Providers Name Role Phone Roopa [...] with reflex microscopic (11/04/2019 9:45 AM CDT) [facility] Method Time Signature Type CLEAN CATCH 11/04/2019 [...] [place] Specific 1.020 1.000 11/04/2019 [facility] Naylor, ->=1.030 10:12 AM CDT F[place]S Urine Blood, [...] MD LAB URINE ORDERABLES Performing Organization Address City/[facility]/ZIP Code Phon e Number [facility] [place] [address] [place] [address] Glomerular filtration rate (GFR) (11/04/2019 9:40 AM CDT) athologist Signature GFR >60 11/04/2019 [facility] 10:11 AM CDT [facility] >60 11/04/2019 [facility] Hond[place] GFR 10:11 AM CDT [facility] Comment: [...] MD LAB BLOOD ORDERABLES Performing Organization Address City/[facility]/ZIP Code Phon e Number [facility] [address] [place] [phone] Basic metabolic panel (11/04/2019 9:40 AM CDT) athologist Signature Sodium 136 135 - 145 11/04/2019 [facility] mmol/L 10:11 AM CDT [place] Potassium 4.3 3.5 - 5.1 11/04/2019 [facility] mmol/L 10:11 AM CDT [place] Comment: . Chloride 104 98 - 107 mmol/L 11/04/2019 10:11 AM CDT [facility] [place] Comment: . CO2 27 22 - 29 mmol/L 11/04/2019 10:11 AM CDT O [facility] [place] Comment: . Creatinine 0.6 0.4 - 1.2 mg/dL 11/04/2019 10:11 AM CDT [facility] [place] Comment: . BUN 12 5 - 25 mg/dL 11/04/2019 10:11 AM CDT [facility] [place] Comment: . Glucose 97 70 - 100 mg/dL 11/04/2019 10:11 AM CDT O [facility] [place] Calcium, Total,S 9.7 8.4 - 10.2 mg/dL 11/04/2019 10:11 AM CDT [facility] [place] Comment: . Fasting? Yes 11/04/2019 9:50 AM CDT [facility] CAN NON F[place]S Specimen Anatomical Collection Method Collection Time Receive d Time (Source) Location / / Volume Laterality Blood 11/04/2019 9:40 AM 0 9:50 CDT AM CDT Penny Palacios MD LAB BLOOD ORDERABLES Performing Organization Address City/State/ZIP Code Phon e Number C [facility] [place] [address] [place] [address] CBC Branch Off w/Diff (11/04/2019 9:40 AM CDT) P athologist Signature WBC 5.9 3.5 - 10.5 11/04/2019 [facility] K/uL 10:11 AM CDT F[place]S RBC 4.75 3.90 - 11/04/2019 [facility] 5.00 M/uL 10:11 AM CDT [place] Hemoglobin 14.5 12.0 - 11/04/2019 [facility] 15.5 g/dL 10:11 AM CDT [place] Hematocrit 41.2 35.0 - 11/04/2019 [facility] 44.0 % 10:11 AM CDT [place] Platelets 327 150 - 450 11/04/2019 [facility] K/uL 10:11 AM CDT [place] MCV 86.7 81.6 - 11/04/2019 [facility] 98.3 fL 10:11 AM CDT [place] MCH 30.5 26.0 - 11/04/2019 [facility] 32.0 pg 10:11 AM CDT [place] MCHC 35.2 32.0 - 11/04/2019 [facility] 36.0 g/dL 10:11 AM CDT [place] RDW 14.3 11.9 - 11/04/2019 [facility] 15.5 % 10:11 AM CDT [place] Lymphocytes % 26.8 % 11/04/2019 [facility] 10:11 AM CDT [place] Mid-size Cells 12.0 % 11/04/2019 [facility] 10:11 AM CDT [place] Granulocytes/Leslie 61.2 % 11/04/2019 [facility] trophils 10:11 AM CDT [place] Lymphocytes 1.6 0.9 - 2.9 11/04/2019 [facility] Absolute K/uL 10:11 AM CDT [place] MIDS Absolute 0.7 0.4 - 1.5 11/04/2019 [facility] K/uL 10:11 AM CDT [place] Granulocytes/Leslie 3.6 1.7 - 7.0 11/04/2019 [facility] trophils K/uL 10:11 AM CDT [place] Absolute Specimen Anatomical Collection Method Collection Time Receive d Time (Source) Location / / Volume Laterality Blood 11/04/2019 9:40 AM 0 9:50 CDT AM CDT Penny Palacios MD LAB BLOOD ORDERABLES Performing Organization Address City/[facility]/ZIP Code Phon e Number [facility] [place] [address] [place] [address] (ABNORMAL) TSH (11/04/2019 9:40 AM CDT) Analysis Performed At Patho logist Time Signature TSH, Sensitive 0.15 (L) 0.46 - 11/04/2019 [facility] 4.68 mIU/L 2:45 PM CDT [facility] Comment: The results from this or [...] MD LAB BLOOD ORDERABLES Performing Organization Address City/[facility]/ZIP Code Phon e Number [facility] [address] [place] [address] T4, free (11/04/2019 9:40 AM CDT) P athologist Signature Free T4 1.50 0.78 - 2.19 11/04/2019 [facility] ng/dL 2:32 PM CDT [facility] Comment: [...] Organization Address City/State/ZIP Code Phon e Number [facility] [address] [place] [address] documented in this encounter Visit Diagnoses Diagnosis Postablative hypothyroidism Other postablative hypothyroidism Right lower quadrant abdominal pain documented in this encounter Care Teams Class A Regional Drivers Relationship Specialty Start Date End Date Roopa Lopez MD PCP - General Family Medicine 07/15/19 02/26/[address] [place] [address] documented as of this encounter
--- OUTSIDE RECORDS SUMMARY | 2022-02-02 09:21 | XMS_ITS | Encounter Summary ---
:1970 Author Organization [facility] Address [address] [place] [address] Care Team Providers Name Role Phone Roopa Lopez MD Primary Care Provider Encounter Details Date Type Department Care Team Description 10/18/2019 Lab SE Lab Edema, unspecified type [address] [place] [address] Social History Tobacco Use Types [...] AM CDT) athologist Signature GFR >60 10/18/2019 [facility] 3:[address] [facility] >60 10/18/2019 [facility] Somali GFR 3:[address] [facility] Comment: GFR calculated from serum [...] Number [facility] [address] [place] [phone] (ABNORMAL) Basic metabolic panel (10/18/2019 11:08 AM CDT) Analysis Performed At Patho logist Time Signature Sodium 138 135 - 145 10/18/2019 [facility] mEq/L 3:[address] [facility] Potassium 3.6 3.5 - 5.1 10/18/2019 [facility] mEq/L 3:[address] [facility] Chloride 103 98 - 107 10/18/2019 [facility] mEq/L 3:[address] [facility] CO2 26 22 - 29 10/18/2019 [facility] mmol/L 3:[address] [facility] Creatinine 0.7 0.4 - 1.2 10/18/2019 [facility] mg/dL 3:[address] [facility] BUN 14 5 - 25 10/18/2019 [facility] mg/dL 3:[address] [facility] Glucose 105 (H) 70 - 100 10/18/2019 [facility] mg/dL 3:[address] [facility] Calcium, 9.2 8.4 - 10.2 10/18/2019 [facility] Total,S mg/dL 3:[address] [facility] Fasting? No 10/18/2019 [facility] 11:[address] [facility] Specimen Anatomical Collection Method Collection Time Receive d Time (Source) Location / / Volume Laterality Blood 10/18/2019 11:08 10/18/2019 2:17 AM CDT PM CDT Valerie Major MD LAB BLOOD ORDERABLES Performing Organization Address City/State/ZIP Code Phon e Number [facility] [address] [place] [address] documented in this encounter Visit Diagnoses Diagnosis Edema, unspecified type documented in this encounter Care Teams Blade Groover Relationship Specialty Start Date End Date Roopa Lopez MD PCP - General Family Medicine 07/15/19 02/26/21 [address] [place] [address] documented as of this encounter
--- OUTSIDE RECORDS SUMMARY | 2022-02-02 09:21 | XMS_ITS | Encounter Summary ---
:1970 Author Organization [facility] Address [address] [place] [address] Care Team Providers Name Role Phone Roopa Lopez MD Primary Care Provider Reason for Visit Reason Onset Date Comments Lab request 02/14/2020 Encounter Details Date Type Department Care Team Description 02/14/2020 Telephone SE Endocrinology Valerie Major MD Lab request [address] [place] [address] Social History Tobacco Use Types Packs/Day Years [...] of above message and verbalized an understanding. MOLDER Telephone Encounter - Valerie Major MD - 02/14/2020 12:10 PM CST Check TSH and FT4 now. Order placed. MOLDER Telephone Encounter - Jo Ann Anaya MA [...] if she can go in for labs. MOLDER documented in this encounter Plan of Treatment Not on filedocumented as of this encounter Results TSH (02/14/2020 4:01 PM HULL MOLDER) athologist Signature TSH, Sensitive 0.93 0.46 - 02/15/2020 [facility] L 4.68 mIU/L 3:36 PM [facility] Comment: The results from this [...] Laterality Blood 02/14/2020 4:01 PM 0 2:29 HULL MOLDER PM HULL MOLDER Valerie Major MD LAB BLOOD ORDERABLES Performing Organization Address City/State/ZIP Code Phon e Number [facility] [address] [place] [address] T4, free (02/14/2020 4:01 PM HULL MOLDER) athologist Signature Free T4 1.07 0.78 - 2.19 02/15/2020 [facility] ng/dL 3:25 PM [facility] Comment: The results from this [...] Laterality Blood 02/14/2020 4:01 PM 0 2:29 HULL MOLDER PM HULL MOLDER Valerie Major MD LAB BLOOD ORDERABLES Performing Organization Address City/State/ZIP Code Phon e Number [facility] [address] [place] [address] documented in this encounter Visit Diagnoses Diagnosis Postablative hypothyroidism - Primary Other postablative hypothyroidism documented in this encounter Care Teams Student Career Development Specialist Relationship Specialty Start Date End Date Roopa Lopez MD PCP - General Family Medicine 07/15/19 02/26/[address] [place] [address] documented as of this encounter
--- OUTSIDE RECORDS SUMMARY | 2022-02-02 09:21 | XMS_ITS | Encounter Summary ---
:1970 Author Organization [facility] Address [address] [place] [address] Care Team Providers Name Role Phone Roopa Lopez MD Primary Care Provider Encounter Details Date Type Department Care Team Description 12/22/2019 Lab [place] Postablative hypothyroidism [address] [place] [address] Social History Tobacco Use Types Packs/Day Years [...] encounter Results TSH (12/22/2019 1:11 PM CDT) athologist Signature [...] BLOOD ORDERABLES Performing Organization Address [facility] Phon e Number [facility] [address] [place] [address] T4, free (12/22/2019 1:11 PM CDT) P athologist Signature Free T4 1.24 0.78 - 2.19 12/23/2019 [facility] ng/dL 1:52 PM CDT CENTER LAB[facility]ORY [...] BLOOD ORDERABLES Performing Organization Address [facility] Phon e Number [facility] [address] [place] [address] documented in this encounter Visit Diagnoses Diagnosis Postablative hypothyroidism Other postablative hypothyroidism documented in this encounter Care Teams Washateria Attendant Relationship Specialty Start Date End Date Roopa Lopez MD PCP - General Family Medicine 07/15/19 02/26/[address] [place] [address] documented as of this encounter
--- OUTSIDE RECORDS SUMMARY | 2022-02-02 09:21 | XMS_ITS | Encounter Summary ---
:1970 Author Organization [facility] Address [address] [place] [address] Care Team Providers Name Role Phone Roopa Lopez MD Primary Care Provider Encounter Details Date Type Department Care Team Description 09/26/2019 Orders Only SE Endocrinology Muthusamy, Postablative [address] MD Valerie hypothyroidism ([place] [address] Dx) [phone] Social History Tobacco Use Types Packs/Day Years [...] Free T4 1.19 0.78 - 2.19 10/14/2019 [facility] ng/dL 3:54 PM CDT CENTER LAB[facility]ORY Comment: [...] Organization Address City/[facility] [address]/ZIP Code Phon e Number [facility] [address] [place] [address] TSH (10/14/2019 8:03 AM CDT) athologist Signature [...] Organization Address City/[facility] [address]/[facility] Code Phon e Number [facility] [address] [place] [address] documented in this encounter Visit Diagnoses Diagnosis Postablative hypothyroidism - Primary Other postablative hypothyroidism documented in this encounter Care Teams Block Breaker Operator Relationship Specialty Start Date End Date Roopa Lopez MD PCP - General Family Medicine 07/15/19 02/26/21 1705 [facility] 20 [place] [address] documented as of this encounter
--- OUTSIDE RECORDS SUMMARY | 2022-02-02 09:21 | XMS_ITS | Encounter Summary ---
:1970 Author Organization [facility] Address [address] [place] [address] Care Team Providers Name Role Phone Roopa Lopez MD Primary Care Provider Encounter Details Date Type Department Care Team Description 11/04/2019 Telephone Penny Rasmussen MD [address] [place] [address] Social History Tobacco Use [...] on filedocumented in this encounter Care Teams Hot Dip Plater Relationship Specialty Start Date End Date Roopa Lopez MD PCP - General Family Medicine 07/15/19 02/26/21 17[address] [facility] [address] [place] [address] documented as of this encounter
--- OUTSIDE RECORDS SUMMARY | 2022-02-02 09:21 | XMS_ITS | Encounter Summary ---
:1970 Author Organization Address [address] [place] [address] Care Team Providers Name Role Phone Tiffanie Mcgovern APRN, REPORT SPECIALIST Primary Care Provider [phone] Encounter Details Date Type Department Care Team Description 12/06/2019 Telephone [place] Roopa Lopez MD [address] [place], [place] [address] [place], [place] [phone] [address] (Wo rk) Social History Tobacco Use Types [...] Out 02/18/2020 02/18/2020 02/18/2020 4:4 1 PM HARDWOOD FLOOR SANDER COVID-19 Rule Out 02/27/2021 02/27/2021 02/27/2021 10: 40 AM HARDWOOD FLOOR SANDER COVID-19 Confirmed 02/27/2021 02/27/2021 05/28/2021 8: 17 PM CDT documented as of this encounter Care Teams Technology Assistant Relationship Specialty Start Date End Date Tiffanie Mcgovern APRN, REPORT SPECIALIST PCP - General Family Medicine 02/27/[address] [place] [address] [place] MACED[place] [address] documented as of this encounter
--- OUTSIDE RECORDS SUMMARY | 2022-02-02 09:21 | XMS_ITS | Encounter Summary ---
:[address] [facility] Address [address] [place] [address] Care Team Providers Name Role Phone Tiffanie Mcgovern APRN, KYLE Primary Care Provider [phone] Reason for Visit Reason Comments Med Refill Encounter Details Date Type Department Care Team Description 12/28/2019 Refill SE Endocrinology Muthusamy, Edema, unspecified type [address] [facility] [place] [address] Social History Tobacco Use Types Packs/Day Years [...] Out 02/18/2020 02/18/2020 02/18/2020 4:4 1 PM CITY SECRETARY COVID-19 Rule Out 02/27/2021 02/27/2021 02/27/2021 10: 40 AM CITY SECRETARY COVID-19 Confirmed 02/27/2021 02/27/2021 05/28/2021 8: 17 PM CDT documented as of this encounter Care Teams Toggler Relationship Specialty Start Date End Date Tiffanie Mcgovern APRN, BORING MACHINE OPERATOR PCP - General Family Medicine 02/27/[address] [place] [address] [place] [address] documented as of this encounter
--- OUTSIDE RECORDS SUMMARY | 2022-02-02 09:21 | XMS_ITS | Encounter Summary ---
:1970 Author Organization [facility] Address [address] [place] [address] Care Team Providers Name Role Phone Roopa Lopez MD Primary Care Provider Reason for Visit Reason Comments Graves' Disease Encounter Details Date Type Department Care Team Description 10/18/2019 Office Visit Endocrinology Muthusamy, Postablative hypothyroidism (Primary Dx); [address] MD Valerie Graves disease; [place] [address] Edema, unspecified type [phone] Social History Tobacco Use Types Packs/Day Years [...] aged 20 and 16. 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 Review of systems: As in HPI. All [...] by mouth every night 1 to 2 [id number] tablet 3 ??? verapamil ER (VERELAN) 240 [...] TSH, Sensitive 0.15 (L) 0.46 - 11/04/2019 [place] 4.68 mIU/L 2:45 PM CDT [facility] Comment: The [...] 9:40 AM 0 1:26 CDT PM CDT Valeire Major MD LAB BLOOD ORDERABLES Performing Organization Address City/State/ZIP Code Phon e Number [facility] [address] [place] [address] T4, free (11/04/2019 9:40 AM CDT) P athologist Signature Free T4 1.50 0.78 - 2.19 11/04/2019 [facility] ng/dL 2:32 PM CDT CENTER LAB[facility]ATORY [...] MD LAB BLOOD ORDERABLES Performing Organization Address [facility] Phon e Number [facility] [address] [place] [address] (ABNORMAL) Basic metabolic panel (10/18/2019 11:08 AM CDT) [facility] Time Signature Sodium 138 135 - 145 10/18/2019 [place] mEq/L 3:22 PM [facility] Potassium 3.6 3.5 - 5.1 10/18/2019 [place] mEq/L 3:22 PM [facility] Chloride 103 98 - 107 10/18/2019 [place] mEq/L 3:22 PM [facility] CO2 26 22 - 29 10/18/2019 [place] mmol/L 3:22 PM [facility] Creatinine 0.7 0.4 - 1.2 10/18/2019 [place] mg/dL 3:22 PM [facility] BUN 14 5 - 25 10/18/2019 [place] mg/dL 3:22 PM [facility] Glucose 105 (H) 70 - 100 10/18/2019 [place] mg/dL 3:22 PM [facility] Calcium, 9.2 8.4 - 10.2 10/18/2019 [place] Total,S mg/dL 3:22 PM [facility] Fasting? No 10/18/2019 [place] 11:08 AM [facility] Specimen Anatomical Collection Method Collection Time Receive d Time (Source) Location / / Volume Laterality Blood 10/18/2019 11:08 10/18/2019 2:17 AM CDT PM CDT Valerie Major MD LAB BLOOD ORDERABLES Performing Organization Address [facility] Code Phon e Number [facility] [address] [place] [address] documented in this encounter Visit Diagnoses Diagnosis Postablative hypothyroidism - Primary Other postablative hypothyroidism Graves disease Toxic diffuse goiter without mention of thyrotoxic crisis or storm Edema, unspecified type documented in this encounter Care Teams Coconut Boiler Relationship Specialty Start Date End Date Roopa Lopez MD PCP - General Family Medicine 07/15/19 02/26/21 1705 [facility] [address] [place] [address] documented as of this encounter
--- OUTSIDE RECORDS SUMMARY | 2022-02-02 09:22 | XMS_ITS | Encounter Summary ---
:1970 Author Organization [facility] Address [address] [place] [address] Care Team Providers Name Role Phone Tiffanie Mcgovern APRN, KYLE Primary Care Provider [phone] Reason for Visit Reason Comments Hyperthyroidism Consultation (Routine) - Closed Specialty Diagnoses / Procedures Referred By Contact Refer red To Contact Endocrinology Diagnoses Hyperthyroidism Roopa Lopez MD [address] [place] [address] Referral ID Status Reason Start Date Expiration Date Visits V isits Requested Authorized [id number] Closed Specialty 06/29/2019 06/28/2020 1 1 Services Required Encounter Details Date Type Department Care Team Description 07/02/2019 Consult SE Endocrinology Roopa Lopez MD [address] [place] [address] Hyperthyroidism (Primary Dx); [address] [facility] Valerie Major [place] [address] Social History Tobacco Use Types Packs/Day Years [...] daily 2. 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 Subsequently she was seen for virtual visit by cardiology at [facility] and underwent Holter monitoring which did not show any significant arrhythmias in May 2019. She subsequently underwent thyroid lab testing at [facility] on 06/16/2019 that showed a completely suppressed [...] Ab <15.6 <20.0 (Negative) U Thyroid Function [place] Collection Time: 06/16/19 9:03 AM Result Value [...] by mouth every night 1 to 2 [id number] tablet 3 ??? verapamil ER (VERELAN) 240 [...] (gastroesophageal reflux disease) ??? Headache History ??? [place] (myocardial infarction) (HCC) 06/18/2010 History of cardiovascular disorder Acute [place] secondary to Vasospasm. No stents required. No [...] age 20 and 16. 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 Does not smoke. Rare alcohol use. Objective [...] or puffiness; no conjunctivalinjection. Normal oral cavity Mvlt-ikmkzzf-[id number] to palpate, no dominant nodularity or obvious [...] Total 3.16 (H) 0.97 - 1.69 08/10/2019 [facility] ng/mL 3:28 PM CDT CENTER [facility] Comment: [...] MD LAB BLOOD ORDERABLES Performing Organization Address City/[facility]/ZIP Code Phon e Number [facility] [address] [place] [address] (ABNORMAL) TSH (08/10/2019 8:30 AM CDT) Patholo [...] BLOOD ORDERABLES Performing Organization Address [facility]/ZIP Code Phon e Number [facility] [address] [place] [address] (ABNORMAL) T4, free (08/10/2019 8:30 AM CDT) [...] Code Phon e Number [facility] [address] [place] [address] documented in this encounter Visit Diagnoses Diagnosis Hyperthyroidism - Primary Thyrotoxicosis without mention of goiter or other cause, without mention of thyrotoxic crisis or storm Graves disease Toxic diffuse goiter without mention of thyrotoxic crisis or storm documented in this encounter Care Teams Division Chair Relationship Specialty Start Date End Date Tiffanie Mcgovern, STRUCTURAL ANALYSIS ENGINEER, BIOFUELS PRODUCTION ASSOCIATE PCP - General 10/14/17 07/14/19 [address] [place] [address] documented as of this encounter
--- OUTSIDE RECORDS SUMMARY | 2022-02-02 09:22 | XMS_ITS | Encounter Summary ---
:1970 Author Organization [facility] Address [address] [place] [address] Care Team Providers Name Role Phone Tiffanie Mcgovern APRN, CNP Primary Care Provider [phone] Encounter Details Date Type Department Care Team Description 06/16/2019 Travel Social History Tobacco Use Types Packs/Day Years Used Date Smoking Tobacco: Some Days Smokeless Tobacco: Never Alcohol Use Standard Drinks/Week [...] on filedocumented in this encounter Care Teams Chin Strap Sewer Relationship Specialty Start Date End Date Tiffanie Mcgovern APRN, NOVELTY MAKER PCP - General 10/14/17 07/14/19 [address] [facility] [place]NEST[place] MAC[place] [address] documented as of this encounter
--- OUTSIDE RECORDS SUMMARY | 2022-02-02 09:22 | XMS_ITS | Encounter Summary ---
:1970 Author Organization [facility] Address [address] [place] [address] Care Team Providers Name Role Phone Roopa Lopez MD Primary Care Provider Reason for Visit Reason Comments Med Refill Encounter Details Date Type Department Care Team Description 09/21/2019 Refill MetaRoopa Gandhi, GUSTAVO (generalized anxiety [address] MD disorder) [place] [address] [facility] [address] [place] [phone] [place] [address] Social History Tobacco Use Types Packs/Day Years [...] # 90, 1 refill. Was filled at [facility] mail is requesting. Requested Prescriptions Pending Prescriptions [...] disorder documented in this encounter Care Teams Fitter Machinist Relationship Specialty Start Date End Date Roopa Lopez MD PCP - General Family Medicine 07/15/19 02/26/[address] [place] [address] documented as of this encounter
--- OUTSIDE RECORDS SUMMARY | 2022-02-02 09:22 | XMS_ITS | Encounter Summary ---
:1970 Author Organization [facility] Address [address] [place] [address] Care Team Providers Name Role Phone Roopa [...] [address] MD Raheel Myalgia; [place], [place] [address] Arthralgia, unspecified join t; [phone] [place] Fluid retention; [place], [place] Glucose int olerance [address] Social History Tobacco Use Types Packs/Day Years [...] and thyrotropin antibody testing. She has seen [place] insurance job titles Dr. Major and she has received in [...] to rheumatology she works up I believe [facility] she is going to get the name or the group of financial assistance advisor and we will refer her to them [...] a day with potential increase to 75 supervisor food checkers and cashiers her prescription for Lasix and taking 120 [...] Signature Glucose 97 70 - 100 09/24/2019 [facility] mg/dL 1:51 PM CDT [facility]ENTER [facility] Specimen Anatomical Collection Method Collection Time Receive d Time (Source) Location / / Volume Laterality Blood (Blood, 09/24/2019 8:07 AM 09/24/19 20 Venous) CDT 12:51 PM CDT Roopa Lopez MD LAB BLOOD ORDERABLES Performing Organization Address City/State/ZIP Code Phon e Number [facility] [address] [place] [address] documented in this encounter Visit Diagnoses Diagnosis Graves disease - Primary Toxic diffuse goiter without mention of thyrotoxic crisis or storm Myalgia Unspecified myalgia and myositis Arthralgia, unspecified joint Fluid retention Fluid overload Glucose intolerance documented in this encounter Care Teams Director [employer] Relationship Specialty Start Date End Date Roopa Lopez MD PCP - General Family Medicine 07/15/19 02/26/[address] [place] [address] documented as of this encounter
--- OUTSIDE RECORDS SUMMARY | 2022-02-02 09:22 | XMS_ITS | Encounter Summary ---
:1970 Author Organization [facility] Address [address] [place] [address] Care Team Providers Name Role Phone Roopa [...] AM CDT) athologist Signature Fasting? Yes 09/24/2019 [facility] 8:13 AM CDT [facility]ENTER [facility] Specimen Anatomical Collection Method Collection Time Receive d Time (Source) Location / / Volume Laterality 09/24/2019 8:07 AM 0 8:13 CDT AM CDT Roopa Lopez MD LAB BLOOD ORDERABLES Performing Organization Address [facility]/ZIP Code Phon e Number [facility] [address] [place] [address] (ABNORMAL) T4, free (09/24/2019 8:07 AM CDT) athologist Signature Free T4 0.16 (L) 0.78 - 2.19 09/24/2019 [facility] ng/dL 1:52 PM CDT CENTER [...] MD LAB BLOOD ORDERABLES Performing Organization Address City/[facility]/ZIP Code Phon e Number [facility] [address] [place] [address] (ABNORMAL) TSH (09/24/2019 8:07 AM CDT) Patholo [...] MD LAB BLOOD ORDERABLES Performing Organization Address City/[facility] Code Phon e Number [facility] [address] [place] [address] (ABNORMAL) T3 (09/24/2019 8:07 AM CDT) P athologist Signature T3, Total 0.74 (L) 0.97 - 1.69 09/24/2019 [facility] ng/mL 2:04 PM CDT CENTER [...] MD LAB BLOOD ORDERABLES Performing Organization Address City/[facility] Code Phon e Number [facility] [address] [place] [address] Glucose, fasting (09/24/2019 8:07 AM CDT) P athologist Signature Glucose 97 70 - 100 09/24/2019 [facility] mg/dL 1:51 PM CDT [facility]ENTER [facility] Specimen Anatomical Collection Method Collection Time Receive d Time (Source) Location / / Volume Laterality Blood (Blood, 09/24/2019 8:07 AM 09/24/19 20 Venous) CDT 12:51 PM CDT Roopa Lopez MD LAB BLOOD ORDERABLES Performing Organization Address City/State/ZIP Code Phon e Number [facility] [address] [place] [address] documented in this encounter Visit Diagnoses Diagnosis Glucose intolerance Graves disease Toxic diffuse goiter without mention of thyrotoxic crisis or storm documented in this encounter Care Teams Concrete Hopper Operator Relationship Specialty Start Date End Date Roopa Lopez MD PCP - General Family Medicine 07/15/19 02/26/[address] [place] [address] documented as of this encounter
--- OUTSIDE RECORDS SUMMARY | 2022-02-02 09:22 | XMS_ITS | Encounter Summary ---
:1970 Author Organization [facility] Address [address] [place] [address] Care Team Providers Name Role Phone Roopa [...] CDT) P athologist Signature GFR >60 09/02/2019 [facility] 1:07 PM T [facility]ENTER [facility] >60 09/02/2019 [facility] Hungarian GFR 1:07 PM T [facility] Comment: [...] e Number [facility] [address] [place] [phone] (ABNORMAL) Basic metabolic panel (09/02/2019 9:17 AM CDT) Analysis Performed At Patho logist Time Signature Sodium 138 135 - 145 09/02/2019 [place] mEq/L 1:07 PM [facility] Potassium 3.7 3.5 - 5.1 09/02/2019 [place] mEq/L 1:07 PM [facility] Chloride 105 98 - 107 09/02/2019 [place] mEq/L 1:07 PM [facility] CO2 24 22 - 29 09/02/2019 [place] mmol/L 1:07 PM [facility] Creatinine 0.5 0.4 - 1.2 09/02/2019 [place] mg/dL 1:07 PM [facility] BUN 14 5 - 25 09/02/2019 [place] mg/dL 1:07 PM [facility] Glucose 119 (H) 70 - 100 09/02/2019 [place] mg/dL 1:07 PM CDT [facility] Calcium, 9.8 8.4 - 10.2 09/02/2019 [place] Total,S mg/dL 1:07 PM T [facility] Fasting? Yes 09/02/2019 [facility] JONES 9:20 AM [facility] Specimen Anatomical Collection Method Collection Time Receive d Time (Source) Location / / Volume Laterality Blood 09/02/2019 9:17 AM 0 1:07 CDT PM CDT Valerie Major MD LAB BLOOD ORDERABLES Performing Organization Address City/[facility] Phon e Number [facility] [address] [place] [address] [facility] [address] [place] [address] LABORATORY T4, free (09/02/2019 9:17 AM CDT) athologist Signature Free T4 1.84 0.78 - 2.19 09/03/2019 [facility] ng/dL 2:34 PM CDT CENTER [facility] [...] MD LAB BLOOD ORDERABLES Performing Organization Address City/[facility]/ZIP Code Phon e Number [facility] [address] [place] [address] (ABNORMAL) TSH (09/02/2019 9:17 AM CDT) Patholo gist Method Time Signature TSH, Sensitive <0.01 (L) 0.46 - 09/03/2019 [place] 4.68 mIU/L 2:50 PM CDT [facility] Comment: The results [...] e Number [facility] [address] [place] [address] documented in this encounter Visit Diagnoses Diagnosis Graves disease Toxic diffuse goiter without mention of thyrotoxic crisis or storm Edema, unspecified type documented in this encounter Care Teams Clerical Grader Relationship Specialty Start Date End Date Roopa Lopez MD PCP - General Family Medicine 07/15/19 02/26/[address] [place] [address] documented as of this encounter
--- OUTSIDE RECORDS SUMMARY | 2022-02-02 09:22 | XMS_ITS | Encounter Summary ---
:1970 Author Organization [facility] Address [address] [place] [address] Care Team Providers Name Role Phone Tiffanie Mcgovern APRN, BLUE LINE HANGER Primary Care Provider [phone] Encounter Details Date Type Department Care Team Description 06/28/2019 Lab Robert Guerrero Hyperthyroidism [address] [place] [address] Social History Tobacco Use [...] Free 7.0 (H) 2.8 - 4.4 06/29/2019 [facility] pg/mL 7:51 PM CDT LABORATORIES Comment: Test Performed by: [facility] [place] [address] Farm Equipment Technician: Butch Guerrero M.D. Ph. D.; CLIA# [id number] Specimen Anatomical Collection Method Collection Time Receive d Time (Source) Location / / Volume Laterality Blood (Blood, 06/28/2019 3:58 PM 06/29/19 1:58 Venous) CDT PM CDT D. Raheel Lopez MD LAB BLOOD ORDERABLES Performing Organization Address City/State/ZIP Code Phon e Number [facility] see result attachment for specific address [...] respectively (97.5th percenti les). Test Performed by: [facility] [address] [place] [address] Farm Equipment Technician: Butch Guerrero M.D. Ph. D.; CLIA# [id number] Specimen Anatomical Collection Method Collection Time Receive d Time (Source) Location / / Volume Laterality Blood (Blood, 06/28/2019 3:58 PM 06/29/19 1:58 Venous) CDT PM CDT D. Raheel Molenaar MD LAB BLOOD ORDERABLES Performing Organization Address City/State/ZIP Code Phon e Number [facility] see result attachment for specific address documented in this encounter Visit Diagnoses Diagnosis Hyperthyroidism Thyrotoxicosis without mention of goiter or other cause, without mention of thyrotoxic crisis or storm documented in this encounter Care Teams Solar Site Assessment Specialist Relationship Specialty Start Date End Date Tiffanie Mcgovern, ERP PROJECT MANAGER, BLUE LINE HANGER PCP - General 10/14/17 07/14/[address] [place] [address] documented as of this encounter
--- OUTSIDE RECORDS SUMMARY | 2022-02-02 09:22 | XMS_ITS | Encounter Summary ---
:[address] [facility] Address [address] [place] [address] Care Team Providers Name Role Phone Tiffanie Mcgovern APRN, KYLE Primary Care Provider [phone] Reason for Referral Hospital - Outpatient (Routine) - Closed Specialty Diagnoses / Procedures Referred By Contact Refer red To Contact Radiology Diagnoses Valerie Major MD Nuclear Medicine Procedures Nuclear medicine thyroid uptake with scan single 210 [facility] [address] [place] [address] [place] [address] Phone: Fax: Referral ID Status Reason Start Date Expiration Date Visits Requ ested Visits Authorized [id number] Closed 07/12/2019 01/08/2020 1 1 Encounter Details Date Type Department Care Team Description 07/12/2019 Orders Only SE Endocrinology Valerie Major MD [address] [place] [address] Social History Tobacco Use Types [...] on filedocumented in this encounter Care Teams Multimedia Engineer Relationship Specialty Start Date End Date Tiffanie Mcgovern, RESIDENT CAREGIVER, METAL NUMERICAL CONTROL PROGRAMMER PCP - General 10/14/17 07/14/19 [address] [place] [address] documented as of this encounter
--- OUTSIDE RECORDS SUMMARY | 2022-02-02 09:22 | XMS_ITS | Encounter Summary ---
:1970 Author Organization [facility] Address [address] [place] [address] Care Team Providers Name Role Phone Roopa Lopez MD Primary Care Provider Reason for Visit Reason Onset Date Comments Thyroid Problem 06/28/2019 Encounter Details Date Type Department Care Team Description 06/28/2019 Telephone Roopa Caldwell MD Thyroid Problem [address] [place], [place] [address] [place], [place] [phone] (Wo rk) Social History Tobacco Use Types [...] going to discuss her thyroid tests with [facility] [place] [facility]. Telephone Encounter - Chelsea Romero [...] on filedocumented in this encounter Care Teams Reporter Relationship Specialty Start Date End Date Roopa Lopez MD PCP - General Family Medicine 07/15/19 02/26/[address] [place] [address] documented as of this encounter
--- OUTSIDE RECORDS SUMMARY | 2022-02-02 09:22 | XMS_ITS | Encounter Summary ---
:1970 Author Organization [facility] Address [address] [place] [address] Care Team Providers Name Role Phone Tiffanie Mcgovern APRN, CNP Primary Care Provider [phone] Reason for Visit Reason Comments Joint Pain Encounter Details Date Type Department Care Team Description 06/15/2019 Telemedicine SandwichTiffanie Perera Arthralgia, [address] ALVERTO Perdomo CNP unspecified joint [place] Savage [address] (Primary Dx) [address] [place] [address] Social History Tobacco Use Types Packs/Day Years [...] who is called on the phone from [place] to discuss Chief Complaint Patient presents with [...] time.. She has reached out to her custom decorating consultant who did a Holter monitor they have not return the Holter monitor and therefore the results are unavailable. The custom decorating consultant is going to be referring her to [...] ([facility] preferred) ROCÍO Rheumatoid factor Thyroid Function [place] Cyclic citrullinated peptide antibody Vitamin D, Total [...] patient will continue her work-up with the custom decorating consultant regarding palpitations during this coronavirus pandemic they [...] Comprehensive metabolic panel (06/16/2019 9:03 AM CDT) [facility] Time Signature Total Protein 7.1 6.3 - 8.2 06/16/2019 [facility] g/dL 12:28 PM [facility] Albumin, Serum 4.0 3.5 - 5.0 06/16/2019 [facility] g/dL 12:28 PM [facility] Total Bilirubin 0.9 0.1 - 1.0 06/16/2019 [facility] mg/dL 12:28 PM [facility] AST 60 (H) 8 - 43 U/L 06/16/2019 [facility] 12:28 PM [facility] Alkaline 42 38 - 128 06/16/2019 [facility] Phosphatase U/L 12:28 PM [facility] ALT (SGPT) 56 (H) 0 - 34 U/L 06/16/2019 [facility] 12:28 PM [facility] Sodium 134 (L) 135 - 145 06/16/2019 [facility] mEq/L 12:28 PM [facility] Potassium 4.0 3.5 - 5.1 06/16/2019 [facility] mEq/L 12:28 PM [facility] Chloride 98 98 - 107 06/16/2019 [facility] mEq/L 12:28 PM [facility] CO2 26 22 - 29 06/16/2019 [facility] mmol/L 12:28 PM [facility] BUN 12 5 - 25 06/16/2019 [facility] mg/dL 12:28 PM [facility] Creatinine 0.5 0.4 - 1.2 06/16/2019 [place] mg/dL 12:28 PM [facility] Glucose 156 (H) 70 - 100 06/16/2019 [facility] mg/dL 12:28 PM [facility] Calcium, Total,S 9.8 8.4 - 10.2 06/16/2019 [facility] mg/dL 12:28 PM [facility] Fasting? No 06/16/2019 [facility] 9:12 AM [facility] Specimen Anatomical Collection Method Collection Time Receive d Time (Source) Location / / Volume Laterality Blood 06/16/2019 9:03 AM 0 CDT 11:53 AM CDT Tiffanie Mcgovern APRN, DRY PASTE SUPERVISOR LAB BLOOD ORDERABLES Performing Organization Address City/State/ZIP Code Phon e Number [facility] [address] [place] [phone] Vitamin D, Total (06/16/2019 9:03 AM CDT) P athologist Signature Vitamin D, 56.3 ng/mL 06/16/2019 [facility] Total 12:38 PM T [facility]ENTER [facility] Comment: Deficient ?<20 ? ng/mL [...] Number [facility] [address] [place] [address] Cyclic citrullinated peptide antibody (06/16/2019 9:03 AM CDT) P athologist Signature Cyclic <15.6 <20.0 06/17/2019 [facility] Citrullin (Negative) 7:02 PM CDT LABORATORIES Peptide Ab U Comment: Test Performed by: [facility] [address] [place], [place] [address] Basket Machine Operator: Butch Guerrero M.D. Ph. D.; CLIA# [id number] Specimen Anatomical Collection Method Collection Time Receive d Time (Source) Location / / Volume Laterality Blood (Blood, 06/16/2019 9:03 AM 06/16/19 2:16 Venous) CDT PM CDT Tiffanie Mcgovern APRN, CNP LAB BLOOD ORDERABLES Performing Organization Address City/[facility]/ZIP Code Phon e Number [facility] see result attachment for specific address (ABNORMAL) Thyroid Function [place] (06/16/2019 9:03 AM CDT) Patholo gist Method Time Signature TSH, Sensitive <0.01 (L) 0.46 - 06/17/2019 [facility] 4.68 mIU/L 2:16 PM CDT [facility] Comment: The results [...] CNP LAB BLOOD ORDERABLES Performing Organization Address City/[facility]/ZIP Code Phon e Number [facility] [address] [place] [address] Rheumatoid factor (06/16/2019 9:03 AM CDT) athologist Signature Rheumatoid 6 1 - 11 06/16/2019 [facility] Factor IU/mL 12:48 PM CDT [facility]ENTER [facility] Specimen Anatomical Collection Method Collection Time Receive d Time (Source) Location / / Volume Laterality Blood (Blood, 06/16/2019 9:03 AM 06/16/19 20 Venous) CDT 12:01 PM CDT Tiffanie Mcgovern APRN, CNP LAB BLOOD ORDERABLES Performing Organization Address [facility] Phon e Number [facility] [address] [place] [address] ROCÍO (06/16/2019 9:03 AM CDT) athologist [facility] ROCÍO 0.7 <=1.0 06/17/2019 [facility] (Negative) 4:17 PM CDT LABORATORIES U Comment: ADDITIONAL INFORMATIO N Method: Enzyme-linked immunoassay using HEp-2 nuclear extract supplemented with purified antig ens. Test Performed by: [facility] [address] [place] [address] 32 Basket Machine Operator: Butch Guerrero M.D. Ph. D.; CLIA# [id number] Specimen Anatomical Collection Method Collection Time Receive d Time (Source) Location / / Volume Laterality Blood (Blood, 06/16/2019 9:03 AM 06/16/19 20 2:16 Venous) CDT PM CDT Tiffanie Mcgovern APRN, CNP LAB BLOOD ORDERABLES Performing Organization Address [facility] Phon e Number [facility] see result attachment for specific address C-reactive protein ([facility] preferred) (06/16/2019 9:03 AM CDT) athologist Signature CRP 2.0 0.0 - 4.9 06/16/2019 [facility] mg/L 12:28 PM CDT [facility] Specimen Anatomical Collection Method Collection Time Receive d Time (Source) Location / / Volume Laterality Blood 06/16/2019 9:03 AM 0 CDT 11:53 AM CDT Tiffanie Mcgovern APRN, CNP LAB BLOOD ORDERABLES Performing Organization Address City/[facility]/ZIP Code Phon e Number [facility] [address] [place] [address] ESR-Sed rate (06/16/2019 9:03 AM CDT) P athologist Signature Sed Rate 23 0 - 29 06/16/2019 [facility] mm/hr 1:44 PM CDT [facility] Specimen Anatomical Collection Method Collection Time Receive d Time (Source) Location / / Volume Laterality Blood 06/16/2019 9:03 AM 0 CDT 11:53 AM CDT Tiffanie Mcgovern APRN, CNP LAB BLOOD ORDERABLES Performing Organization Address City/[facility]/ZIP Code Phon e Number [facility] [address] [place] [phone] (ABNORMAL) CBC Branch Off w/Diff (06/16/2019 9:03 AM CDT) Patholo gist Method Time Signature WBC 4.8 3.5 - 10.5 06/16/2019 [facility] [place] K/uL 11:00 AM CDT [facility] RBC 4.49 3.90 - 06/16/2019 [facility] 5.00 M/uL 11:00 AM CDT [facility] Hemoglobin 13.6 12.0 - 06/16/2019 [facility] 15.5 g/dL 11:00 AM CDT [facility] Hematocrit 39.1 35.0 - 06/16/2019 [facility] 44.0 % 11:00 AM CDT [facility] Platelets 279 150 - 450 06/16/2019 [facility] K/uL 11:00 AM CDT [place] MCV 87.1 81.6 - 06/16/2019 [facility] 98.3 fL 11:00 AM CDT [facility] MCH 30.3 26.0 - 06/16/2019 [facility] 32.0 pg 11:00 AM CDT [place] MCHC 34.8 32.0 - 06/16/2019 [facility] [place] 36.0 g/dL 11:00 AM CDT [facility] RDW 11.7 (L) 11.9 - 06/16/2019 [facility] [place] 15.5 % 11:00 AM CDT [facility] Lymphocytes % 22.3 18.0 - 06/16/2019 [facility] [place] 45.0 % 11:00 AM CDT [facility] Mid-size Cells 12.2 (H) 3.3 - 10.1 06/16/2019 [facility] % 11:00 AM CDT [facility] Granulocytes/Leslie 65.5 45.8 - 06/16/2019 [facility] [place] trophils 73.7 % 11:00 AM CDT [place] Lymphocytes 1.1 0.9 - 2.9 06/16/2019 [facility] Absolute K/uL 11:00 AM CDT [facility] MIDS Absolute 0.6 0.2 - 0.8 06/16/2019 [facility] K/uL 11:00 AM CDT [facility] Granulocytes/Leslie 3.1 2.1 - 8.7 06/16/2019 [facility] [place] trophils K/uL 11:00 AM CDT [facility] Absolute Specimen Anatomical Collection Method Collection Time Receive d Time (Source) Location / / Volume Laterality Blood 06/16/2019 9:03 AM 0 9:12 CDT AM CDT Tiffanie Mcgovern APRN, CNP LAB BLOOD ORDERABLES Performing Organization Address City/State/ZIP Code Phon e Number [facility] ROBERT GUERRERO [address] Robert Guerrero [place] [address] documented in this encounter Visit Diagnoses Diagnosis Arthralgia, unspecified joint - Primary documented in this encounter Care Teams Assistant Professor Of English Relationship Specialty Start Date End Date Tiffanie Mcgovern APRN, DRY PASTE SUPERVISOR PCP - General 10/14/17 07/14/19 [address] [facility] [place] [address] documented as of this encounter
--- OUTSIDE RECORDS SUMMARY | 2022-02-02 09:22 | XMS_ITS | Encounter Summary ---
:1970 Author Organization [facility] Address [address] [place] [address] Care Team Providers Name Role Phone Roopa Lopez MD Primary Care Provider Reason for Visit Reason Comments Hyperthyroidism Encounter Details Date Type Department Care Team Description 08/12/2019 [facility] SE Endocrinology Moriah, Graves disease (Primary Dx); [address] MD Valerie [place], [place] [address] Social History Tobacco Use Types [...] age 20 and 16. 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 Review of systems: As in HPI. All [...] if needed for acute dental pain limit 624 hours or 42/week. (Patient not taking: Reported [...] Results (ABNORMAL) T3 (09/24/2019 8:07 AM CDT) athologist Signature T3, Total 0.74 (L) 0.97 - 1.69 09/24/2019 [facility] ng/mL 2:04 PM CDT CENTER [...] MD LAB BLOOD ORDERABLES Performing Organization Address [facility] Phon e Number [facility] [address] [place] [phone] (ABNORMAL) TSH (09/24/2019 8:07 AM CDT) Patholo [...] MD LAB BLOOD ORDERABLES Performing Organization Address [facility]/ZIP Code Phon e Number [facility] [place] [address] (ABNORMAL) T4, free (09/24/2019 8:07 AM CDT) P athologist Signature Free T4 0.16 (L) 0.78 - 2.19 09/24/2019 [facility] ng/dL 1:52 PM CDT CENTER LAB[facility]ORY [...] Performing Organization Address City/[facility] Code Phon e Number [facility] [address] [place] [address] (ABNORMAL) TSH (09/02/2019 9:17 AM CDT) Patholo gist Method Time Signature TSH, Sensitive <0.01 (L) 0.46 - 09/03/2019 [facility] 4.68 mIU/L 2:50 PM CDT [facility] Comment: The results from this [...] Performing Organization Address City/[facility] Phon e Number [facility] [address] [place] [address] T4, free (09/02/2019 9:17 AM CDT) P athologist Signature Free T4 1.84 0.78 - 2.19 09/03/2019 [facility] ng/dL 2:34 PM CDT CENTER LABORATORY [...] Organization Address City/State/ZIP Code Phon e Number [facility] [address] [place] [address] (ABNORMAL) Basic metabolic panel (09/02/2019 9:17 AM CDT) Analysis Performed At Patho logist Time Signature Sodium 138 135 - 145 09/02/2019 [place] mEq/L 1:07 PM [facility] Potassium 3.7 3.5 - 5.1 09/02/2019 [place] mEq/L 1:07 PM [facility] Chloride 105 98 - 107 09/02/2019 [facility] mEq/L 1:07 PM [facility] CO2 24 22 - 29 09/02/2019 [place] mmol/L 1:07 PM [facility] Creatinine 0.5 0.4 - 1.2 09/02/2019 [place] mg/dL 1:07 PM [facility] BUN 14 5 - 25 09/02/2019 [facility] mg/dL 1:07 PM [facility] Glucose 119 (H) 70 - 100 09/02/2019 [facility] mg/dL 1:07 PM [facility] Calcium, 9.8 8.4 - 10.2 09/02/2019 [place] Total,S mg/dL 1:07 PM [facility] Fasting? Yes 09/02/2019 [facility] 9:20 AM CDT [facility] Specimen Anatomical Collection Method Collection Time Receive d Time (Source) Location / / Volume Laterality Blood 09/02/2019 9:17 AM 0 1:07 CDT PM CDT Valerie Major MD LAB BLOOD ORDERABLES Performing Organization Address City/State/ZIP Code Phon e Number [facility] [place] [address] [place] [address] [facility] [address] [place] [address] LABORATORY documented in this encounter Visit Diagnoses Diagnosis Graves disease - Primary Toxic diffuse goiter without mention of thyrotoxic crisis or storm Edema, unspecified type documented in this encounter Care Teams Crinkling Machine Operator Relationship Specialty Start Date End Date Roopa Lopez MD PCP - General Family Medicine 07/15/19 02/26/[address] [place] [address] documented as of this encounter
--- OUTSIDE RECORDS SUMMARY | 2022-02-02 09:22 | XMS_ITS | Encounter Summary ---
:1970 Author Organization [facility] Address [address] [place] [address] Care Team Providers Name Role Phone Roopa Lopez MD Primary Care Provider Reason for Referral Hospital - Outpatient (Routine) - Closed Specialty Diagnoses / Procedures Referred By Contact Refer red To Contact Radiology Diagnoses Graves disease Valerie Major MD Nuclear Medicine Procedures Nuclear medicine thyroid therapy ablation hyperthyroid [address] [place] [address] [place] [address] Phone: Fax: Referral ID Status Reason Start Date Expiration Date Visits Requ ested Visits Authorized [id number] Closed 07/16/2019 01/12/2020 1 1 Encounter Details Date Type Department Care Team Description 07/16/2019 Orders Only SE Endocrinology Moriah Graves disease (Primary [address] MD Valerie Dx) [place] [address] Social History Tobacco Use Types [...] detail with the patient by the Radiation Pizza Cook (Jaimie Maharaj). ?? Verbal and written informed [...] detail with the patient by the Radiation Pizza Cook (Jaimie Maharaj). Verbal and written informed consent [...] therapy for hy perthyroidism. Valerie Major MD IMG NM PROCEDURES documented in this encounter Visit Diagnoses Diagnosis Graves disease - Primary Toxic diffuse goiter without mention of thyrotoxic crisis or storm documented in this encounter Care Teams Rail Gang Supervisor Relationship Specialty Start Date End Date Roopa Lopez MD PCP - General Family Medicine 07/15/19 02/26/[address] [place] [address] documented as of this encounter
--- OUTSIDE RECORDS SUMMARY | 2022-02-02 09:22 | XMS_ITS | Encounter Summary ---
:1970 Author Organization [facility] Address [address] [place] [address] Care Team Providers Name Role Phone Roopa Lopez MD Primary Care Provider Encounter Details Date Type Department Care Team Description 09/13/2019 Orders Only Roopa Caldwell Anxiety (Primary Dx) [address] [facility] [address] [place] [phone] [place] [address] Social History Tobacco Use Types Packs/Day Years [...] unspecified documented in this encounter Care Teams Bedspring Assembler Relationship Specialty Start Date End Date Roopa Lopez MD PCP - General Family Medicine 07/15/19 02/26/[address] [place] [phone] documented as of this encounter
--- OUTSIDE RECORDS SUMMARY | 2022-02-02 09:22 | XMS_ITS | Encounter Summary ---
:1970 Author Organization [facility] Address [address] [place] [address] Care Team Providers Name Role Phone Roopa [...] on filedocumented in this encounter Care Teams Epic Cadence Specialists Relationship Specialty Start Date End Date Roopa Lopez MD PCP - General Family Medicine 07/15/19 02/26/[address] [place] [phone] documented as of this encounter
--- OUTSIDE RECORDS SUMMARY | 2022-02-02 09:22 | XMS_ITS | Encounter Summary ---
:1970 Author Organization [employer] Address [address] [place] [address] Care Team Providers Name Role Phone Tiffanie Mcgovern APRN, KYLE Primary Care Provider [phone] Reason for Referral Consultation (Routine) - Closed Specialty Diagnoses / Procedures Referred By Contact Refer red To Contact Endocrinology Diagnoses Hyperthyroidism Roopa Gupta MD [address] [place] [address] Referral ID Status Reason Start Date Expiration Date Visits V isits Requested Authorized [id number] Closed Specialty 06/29/2019 06/28/2020 1 1 Services [...] patient would be willing to drive to [facility] Encounter Details Date Type Department Care Team Description 06/28/2019 Telephone SE Endocrinology Valerie Major MD [address] [place] [address] Social History Tobacco Use Types [...] Major MD - 06/28/2019 2:24 PM CDT [facility] Dr. Gupta, Tried reaching your office currently [...] 1:[address] Gupta called from [place] wanting to know what would be needed for labs to be seen in Endocrinology. Please give him a call if need to discuss anything at all. documented in this encounter Plan of Treatment Scheduled Referrals Name Type Priority Associated Diagnoses Order [facility] referral Outpatient Routine Hyperthyroidism Order ed: to Endocrinology Referral 06/29/2019 documented as of this encounter Results (ABNORMAL) Thyrotropin receptor antibody (06/28/2019 3:58 PM CDT) [facility] Method Time Signature Thyrotropin 2.76 (H) 0.00 - 06/29/2019 [facility] Receptor Ab 1.75 IU/L 7:45 PM [...] respectively (97.5th percenti les). Test Performed by: [place] [id number] Spray Worker: Butch Guerrero M.D. Ph. D.; CLIA# [id number] Specimen Anatomical Collection Method Collection Time Receive d Time (Source) Location / / Volume Laterality Blood (Blood, 06/28/2019 3:58 PM 06/29/19 1:58 Venous) CDT PM CDT D. Raheel Gupta MD LAB BLOOD ORDERABLES Performing Organization Address City/State/ZIP Code Phon e Number [facility] see result attachment for specific address (ABNORMAL) T3, free (06/28/2019 3:58 PM CDT) P athologist Signature T3, Free 7.0 (H) 2.8 - 4.4 06/29/2019 [facility] pg/mL 7:51 PM CDT LABORATORIES Comment: Test Performed by: [facility] [address] [place] [address] [address] Spray Worker: Butch Guerrero M.D. Ph. D.; CLIA# [id number] Specimen Anatomical Collection Method Collection Time Receive d Time (Source) Location / / Volume Laterality Blood (Blood, 06/28/2019 3:58 PM 06/29/19 1:58 Venous) CDT PM CDT DSonja Gupta MD LAB BLOOD ORDERABLES Performing Organization Address City/State/ZIP Code Phon e Number [facility] see result attachment for specific address documented in this encounter Visit Diagnoses Diagnosis Hyperthyroidism - Primary Thyrotoxicosis without mention of goiter or other cause, without mention of thyrotoxic crisis or storm documented in this encounter Care Teams Electron Gun Inspector Relationship Specialty Start Date End Date Tiffanie Mcgovern, ANALYST MARKET INTELLIGENCE, CORRECTIONAL TREATMENT SPECIALIST PCP - General 10/14/17 07/14/19 [facility] [place] [address] documented as of this encounter
--- OUTSIDE RECORDS SUMMARY | 2022-02-02 09:22 | XMS_ITS | Encounter Summary ---
:1970 Author Organization [facility] Address [address] [place] [address] Care Team Providers Name Role Phone Tiffanie Mcgovern APRN, REVENUE ACCOUNTING MANAGER Primary Care Provider Reason for Visit Reason Onset Date Comments COVID 06/14/2019 Encounter Details Date Type Department Care Team Description 06/14/2019 Telephone SE Immunization Irena Lopez RN COVID [address] [place] [address] [place] [address] Social History Tobacco Use Types Packs/Day Years [...] RNA detection, v (06/14/2019 8:55 AM CDT) [facility] Method Time Signature SARS Covid Nasopharyngeal 06/14/2019 [facility] specimen 10:56 PM LABORATORIES source CDT SARS CoV2 Undetected Undetected 06/14/2019 [facility] RNA 10:56 PM LABORATORIES CDT Comment: SARS-CoV-2 RNA is not detected. ADDITIONAL INFORMATIO N Testing was performed using the deanna SA RS-CoV-2 assay ([employer] on the [employer] System. Fact sheets for this Emergency Use Autho rization (EUA) assay can be found at the following link s: For Healthcare Providers: https://www.fda.gov/media/642847/downloa d For Patients: https://www.fda.gov/media/ 561117/download Test Performed by: [facility] [address] [place] [address] Wood And Hardware Outfitter: Butch Guerrero M.D. Ph. D.; CLIA# [id number] Specimen Anatomical Collection Method Collection Time Receive d Time (Source) Location / / Volume Laterality Swab 06/14/2019 8:55 AM 0 (Nasopharyngeal) CDT 11:02 AM CD T Bryon Adler MD LAB MOLECULAR DIAGNOSTICS OR DERABLES Performing Organization Address City/State/ZIP Code Phon e Number [facility] see result attachment for specific address documented in this encounter Visit Diagnoses Diagnosis Encounter for special screening examinat ion for infectious or parasitic disease - Primary documented in this encounter Care Teams Air Conditioning Service Technician Relationship Specialty Start Date End Date Tiffanie Mcgovern, SCARFER OPERATOR, REVENUE ACCOUNTING MANAGER PCP - General 10/14/17 07/14/19 100 [facility] [place] [address] documented as of this encounter
--- OUTSIDE RECORDS SUMMARY | 2022-02-02 09:22 | XMS_ITS | Encounter Summary ---
:1970 Author Organization [facility] Address [address] [place] [address] Care Team Providers Name Role Phone Tiffanie Mcgovern APRN, ACCOUNTING SYSTEM EXPERT Primary Care Provider Encounter Details Date Type Department Care Team Description 06/16/2019 Lab [place] Guerre[place] Arthralgia, unspecified join t [address] ERNEST[place] Ramirez [address] [...] Thyroperoxidase (TPO) Ab (06/16/2019 9:03 AM CDT) [facility] Method Time Signature Thyroid 9.3 (H) <9.0 06/18/2019 [facility] Peroxidase IU/mL 1:58 PM CDT LABORATORIES (TPO) Ab Comment: Test Performed by: [facility] [address] [place] [address] [address] Blockers: Butch Guerrero M.D. Ph. D.; CLIA# [id number] Specimen Anatomical Collection Method Collection Time Receive d Time (Source) Location / / Volume Laterality 06/16/2019 9:03 AM 0 CDT 10:09 PM CDT Tiffanie Mcgovern APRN, CNP LAB BLOOD ORDERABLES Performing Organization Address City/State/ZIP Code Phon e Number [facility] see result attachment for specific address (ABNORMAL) T4, free (06/16/2019 9:03 AM CDT) athologist Signature Free T4 3.30 (H) 0.78 - 2.19 06/17/2019 [facility] ng/dL 3:56 PM CDT CENTER LABORATORY [...] Organization Address City/State/ZIP Code Phon e Number [facility] [address] [place] [address] Glomerular filtration rate (GFR) (06/16/2019 9:03 AM CDT) athologist Signature GFR >60 06/16/2019 [facility] 12:28 PM CDT CENTER LAB[facility]ORY >60 06/16/2019 [facility] Stateless GFR 12:28 PM CDT CENTER LABORATORY Comment: [...] 9:03 CDT AM CDT Tiffanie M Mcgovern SIGN BOARD ERECTOR, ACCOUNTING SYSTEM EXPERT LAB BLOOD ORDERABLES Performing Organization Address City/State/ZIP Code Phon e Number [facility] [address] [place] [address] (ABNORMAL) CBC Branch Off w/Diff (06/16/2019 9:03 AM CDT) [facility] Method Time Signature WBC 4.8 3.5 [...] FALLS Granulocytes/Leslie 3.1 2.1 - 8.7 06/16/2019 [facility] JONES trophils K/uL 11:00 AM CDT [place] Absolute Specimen Anatomical Collection Method Collection Time Receive d Time (Source) Location / / Volume Laterality Blood 06/16/2019 9:03 AM 0 9:12 CDT AM CDT Tiffanie Mcgovern APRN, CNP LAB BLOOD ORDERABLES Performing Organization Address City/[facility]/ZIP Code Phon e Number [facility] ROBERT GUERRERO [address] [place] [address] ESR-Sed rate (06/16/2019 9:03 AM CDT) athologist Signature Sed Rate 23 0 - 29 06/16/2019 [facility] mm/hr 1:44 PM CDT [facility] Specimen Anatomical Collection Method Collection Time Receive d Time (Source) Location / / Volume Laterality Blood 06/16/2019 9:03 AM 0 CDT 11:53 AM CDT Tiffanie Mcgovern APRN, CNP LAB BLOOD ORDERABLES Performing Organization Address City/[facility]/ZIP Code Phon e Number [facility] [address] [place] [address] C-reactive protein ([facility] preferred) (06/16/2019 9:03 AM CDT) athologist Signature CRP 2.0 0.0 - 4.9 06/16/2019 [facility] mg/L 12:28 PM CDT CENTER LABORATORY Specimen Anatomical Collection Method Collection Time Receive d Time (Source) Location / / Volume Laterality Blood 06/16/2019 9:03 AM 0 CDT 11:53 AM CDT Tiffanie Mcgovern APRN, CNP LAB BLOOD ORDERABLES Performing Organization Address City/State/ZIP Code Phon e Number [facility] [address] [place] [address] [place]O (06/16/2019 9:03 AM CDT) athologist Signature ROCÍO 0.7 <=1.0 06/17/2019 [facility] (Negative) 4:17 PM CDT LABORATORIES U Comment: ADDITIONAL INFORMATIO N Method: Enzyme-linked immunoassay using HEp-2 nuclear extract supplemented with purified antig ens. Test Performed by: [facility] [address] [place] [address] [address] Blockers: Butch Guerrero M.D. Ph. D.; IA# [id number] Specimen Anatomical Collection Method Collection Time Receive d Time (Source) Location / / Volume Laterality Blood (Blood, 06/16/2019 9:03 AM 06/16/19 2:16 Venous) CDT PM CDT Tiffanie Mcgovern APRN, CNP LAB BLOOD ORDERABLES Performing Organization Address City/State/ZIP Code Phon e Number [facility] see result attachment for specific address Rheumatoid factor (06/16/2019 9:03 AM CDT) P athologist Signature Rheumatoid 6 1 - 11 06/16/2019 [facility] Factor IU/mL 12:48 PM [facility] Specimen Anatomical Collection Method Collection Time Receive d Time (Source) Location / / Volume Laterality Blood (Blood, 06/16/2019 9:03 AM 06/16/19 Venous) CDT 12:01 PM CDT Tiffanie Mcgovern APRN, CNP LAB BLOOD ORDERABLES Performing Organization Address City/[facility]/ZIP Code Phon e Number [facility] [address] [place] [address] (ABNORMAL) Thyroid Function Real (06/16/2019 9:03 AM CDT) [facility] Method Time Signature TSH, Sensitive <0.01 (L) 0.46 - 06/17/2019 [place] 4.68 mIU/L 2:16 PM CDT [facility] [...] Organization Address City/State/ZIP Code Phon e Number [facility] [address] [place] [address] Cyclic citrullinated peptide antibody (06/16/2019 9:03 AM CDT) athologist Signature Cyclic <15.6 <20.0 06/17/2019 [facility] Citrullin (Negative) 7:02 PM CDT LABORATORIES Peptide Ab U Comment: Test Performed by: [facility] [address] [place] [address] [address] Blockers: Butch Guerrero M.D. Ph. D.; CLIA# [id number] Specimen Anatomical Collection Method Collection Time Receive d Time (Source) Location / / Volume Laterality Blood (Blood, 06/16/2019 9:03 AM 06/16/19 20 2:16 Venous) CDT PM CDT Tiffanie Mcgovern APRN, CNP LAB BLOOD ORDERABLES Performing Organization Address City/[facility]/ZIP Code Phon e Number [facility] see result attachment for specific address Vitamin D, Total (06/16/2019 9:03 AM CDT) athologist Signature Vitamin D, 56.3 ng/mL 06/16/2019 [facility] Total 12:38 PM CDT CENTER LABORATORY [...] CDT 11:53 AM CDT Tiffanie Mcgovern APRN, ACCOUNTING SYSTEM EXPERT LAB BLOOD ORDERABLES Performing Organization Address City/State/ZIP Code Phon e Number [facility] [address] [place] [address] (ABNORMAL) Comprehensive metabolic panel (06/16/2019 9:03 AM CDT) [facility] Method Time Signature Total Protein 7.1 6.3 - 8.2 06/16/2019 [place] g/dL 12:28 PM [facility] Albumin, Serum 4.0 3.5 - 5.0 06/16/2019 [place] g/dL 12:28 PM [facility] Total Bilirubin 0.9 0.1 - 1.0 06/16/2019 [place] mg/dL 12:28 PM [facility] AST 60 (H) 8 - 43 U/L 06/16/2019 [place] 12:28 PM [facility] Alkaline 42 38 - 128 06/16/2019 [place] Phosphatase U/L 12:28 PM [facility] ALT (SGPT) 56 (H) 0 - 34 U/L 06/16/2019 [place] 12:28 PM [facility] Sodium 134 (L) 135 - 145 06/16/2019 [place] mEq/L 12:28 PM [facility] Potassium 4.0 3.5 - 5.1 06/16/2019 [place] mEq/L 12:28 PM [facility] Chloride 98 98 - 107 06/16/2019 [place] mEq/L 12:28 PM [facility] CO2 26 22 - 29 06/16/2019 [place] mmol/L 12:28 PM [facility] BUN 12 5 - 25 06/16/2019 [place] mg/dL 12:28 PM [facility] Creatinine 0.5 0.4 - 1.2 06/16/2019 [place] mg/dL 12:28 PM [facility] Glucose 156 (H) 70 - 100 06/16/2019 [place] mg/dL 12:28 PM [facility] Calcium, Total,S 9.8 8.4 - 10.2 06/16/2019 [place] mg/dL 12:28 PM [facility] Fasting? No 06/16/2019 [place] 9:12 AM [facility] Specimen Anatomical Collection Method Collection Time Receive d Time (Source) Location / / Volume Laterality Blood 06/16/2019 9:03 AM 0 CDT 11:53 AM CDT Tiffanie Mcgovern APRN, CNP LAB BLOOD ORDERABLES Performing Organization Address City/State/ZIP Code Phon e Number [facility] [address] [place] [address] documented in this encounter Visit Diagnoses Diagnosis Arthralgia, unspecified joint documented in this encounter Care Teams Clothing Room Supervisor Relationship Specialty Start Date End Date Tiffanie Mcgovern APRN, ACCOUNTING SYSTEM EXPERT PCP - General 10/14/17 07/14/19 100 [facility] [place] [address] documented as of this encounter
--- OUTSIDE RECORDS SUMMARY | 2022-02-02 09:22 | XMS_ITS | Encounter Summary ---
:1970 Author Organization [facility] Address [address] [place] [address] Care Team Providers Name Role Phone Tiffanie Mcgovern COVERED BUCKLE ASSEMBLER, WEB MERCHANDISER Primary Care Provider [phone] Encounter Details Date Type Department Care Team Description 06/17/2019 Orders Only Rogelio Guerrero Tiffaine Mcgovern, Arthralgia, [address] COVERED BUCKLE ASSEMBLER, WEB MERCHANDISER unspecified joint ERNESTO [place] [address] (Primary Dx) [address] [place] [address] Social History Tobacco Use Types Packs/Day Years [...] Add-On Test Request (06/17/2019 2:35 PM CDT) [facility] gist Method Time Signature Add-on Testing SEE BELOW 06/17/2019 [place] 2:41 PM CDT [facility] Comment: TPO added to [id number] Specimen Anatomical Collection Method Collection Time Receive d Time (Source) Location / / Volume Laterality 06/17/2019 2:35 PM 0 2:35 CDT PM CDT Tiffanie Mcgovern APRN, KYLE LAB BLOOD ORDERABLES Performing Organization Address City/State/ZIP Code Phon e Number [facility] [address] [place] [address] documented in this encounter Visit Diagnoses Diagnosis Arthralgia, unspecified joint - Primary documented in this encounter Care Teams Kai[place]ahaere Relationship Specialty Start Date End Date Tiffanie Mcgovern APRN, WEB MERCHANDISER PCP - General 10/14/17 07/14/19 100 [place] [address] documented as of this encounter
--- OUTSIDE RECORDS SUMMARY | 2022-02-02 09:22 | XMS_ITS | Encounter Summary ---
:[address] [facility] Address [address] [place] [address] Care Team Providers Name Role Phone Tiffanie Mcgovern APRN, KYLE Primary Care Provider [phone] Encounter Details Date Type Department Care Team Description 06/22/2019 Orders Only Levi Godoy MD [address] [place] [address] Social History Tobacco Use Types Packs/Day Years [...] on filedocumented in this encounter Care Teams Final Expense Agent Relationship Specialty Start Date End Date Tiffanie Mcgovern APRN, SHOP MECHANIC PCP - General 10/14/17 07/14/19 100 [facility] [place] [address] documented as of this encounter
--- OUTSIDE RECORDS SUMMARY | 2022-02-02 09:22 | XMS_ITS | Encounter Summary ---
:1970 Author Organization [facility] Address [address] [place] [address] Care Team Providers Name Role Phone Roopa Lopez MD Primary Care Provider Encounter Details Date Type Department Care Team Description 07/15/2019 Orders Only Roopa Caldwell Dental infection [address] MD Raheel (Primary Dx) ERNESTO [place] [phone] [facility] [address] [place] [address] Social History Tobacco Use Types Packs/Day Years [...] Primary documented in this encounter Care Teams Telegraph Repeater Technician Relationship Specialty Start Date End Date Roopa Lopez MD PCP - General Family Medicine 07/15/19 02/26/[address] [place] [address] documented as of this encounter
--- OUTSIDE RECORDS SUMMARY | 2022-02-02 09:22 | XMS_ITS | Encounter Summary ---
:1970 Author Organization [facility] Address [address] [place] [address] Care Team Providers Name Role Phone Roopa Lopez MD Primary Care Provider Encounter Details Date Type Department Care Team Description 08/10/2019 Lab [place] Graves disease [address] [place] [address] Social History Tobacco Use Types [...] T4 2.63 (H) 0.78 - 2.19 08/10/2019 [facility] ng/dL 3:09 PM CDT CENTER LABORATORY [...] Organization Address City/State/ZIP Code Phon e Number [facility] [address] [place] [address] (ABNORMAL) TSH (08/10/2019 8:30 AM CDT) Patholo gist Method Time Signature TSH, Sensitive <0.01 (L) 0.46 - 08/10/2019 [facility] 4.68 mIU/L 3:28 PM CDT MEDICAL CENTER [...] BLOOD ORDERABLES Performing Organization Address [facility] Phon e Number [facility] [address] [place] [address] (ABNORMAL) T3 (08/10/2019 8:30 AM CDT) P athologist Signature T3, Total 3.16 (H) 0.97 - 1.69 08/10/2019 [facility] ng/mL 3:28 PM CDT CENTER LABORATORY [...] MD LAB BLOOD ORDERABLES Performing Organization Address City/[facility] e Number [facility] [address] [place] [address] documented in this encounter Visit Diagnoses Diagnosis Graves disease Toxic diffuse goiter without mention of thyrotoxic crisis or storm documented in this encounter Care Teams High School Math Teacher Relationship Specialty Start Date End Date Roopa Lopez MD PCP - General Family Medicine 07/15/19 02/26/[address] [place] [address] documented as of this encounter
--- OUTSIDE RECORDS SUMMARY | 2022-02-02 09:22 | XMS_ITS | Encounter Summary ---
:1970 Author Organization [facility] Address [address] [place] [address] Care Team Providers Name Role Phone Roopa Lopez MD Primary Care Provider Encounter Details Date Type Department Care Team Description 07/15/2019 Orders Only Roopa Caldwell Pain, dental (Primary [address] MD Raheel Dx) ERNESTO [place] [phone] [place] [address] Social History Tobacco Use Types Packs/Day Years [...] Primary documented in this encounter Care Teams Automotive Services Manager Relationship Specialty Start Date End Date Roopa Lopez MD PCP - General Family Medicine 07/15/19 02/26/[address] [place] [address] documented as of this encounter
--- OUTSIDE RECORDS SUMMARY | 2022-02-02 09:22 | XMS_ITS | Encounter Summary ---
:1970 Author Organization [facility] Address [address] [place] [address] Care Team Providers Name Role Phone Roopa Lopez MD Primary Care Provider Encounter Details Date Type Department Care Team Description 06/21/2019 Telephone Tiffanie Coto, [address] [facility] [place], [place] [address] [place] [address] [place], [place] [address] Social History Tobacco Use [...] on filedocumented in this encounter Care Teams Parachute Inspector Relationship Specialty Start Date End Date Roopa Lopez MD PCP - General Family Medicine 07/15/19 02/26/21 [address] [place] [address] documented as of this encounter
--- OUTSIDE RECORDS SUMMARY | 2022-02-02 09:22 | XMS_ITS | Encounter Summary ---
:[address] [facility] Address [address] [place] [address] Care Team Providers Name Role Phone Roopa [...] on filedocumented in this encounter Care Teams Roller Die Cutting Machine Operator Relationship Specialty Start Date End Date Roopa Lopez MD PCP - General Family Medicine 07/15/19 02/26/[address] [place] [address] documented as of this encounter
--- OUTSIDE RECORDS SUMMARY | 2022-02-02 09:22 | XMS_ITS | Encounter Summary ---
:1970 Author Organization [facility] Address [address] [place] [address] Care Team Providers Name Role Phone Roopa Lopez MD Primary Care Provider Encounter Details Date Type Department Care Team Description 09/13/2019 Orders Only Roopa Caldwell MD [address] [place], [place] [address] [place], [place] [phone] [address] (Wo rk) Social History Tobacco Use Types [...] on filedocumented in this encounter Care Teams Lab Aid Relationship Specialty Start Date End Date Roopa Lopez MD PCP - General Family Medicine 07/15/19 02/26/[address] [place] [address] documented as of this encounter
--- OUTSIDE RECORDS SUMMARY | 2022-02-02 09:23 | XMS_ITS | Encounter Summary ---
:1970 Author Organization [facility] Address [address] [place] [address] Care Team Providers Name Role Phone Tiffanie Mcgovern APRN, INGREDIENT SPECIALIST Primary Care Provider [phone] Reason for Visit Reason Comments Shortness of Breath Dizziness Encounter Details Date Type Department Care Team Description 09/02/2018 Office Visit Roopa Caldwell History of coronary vasospas m (Primary Dx); [address] MD Raheel Shortness of breath Rogel[place] Guerre[place] [phone] [facility] [address] [place] [address] Social History Tobacco Use Types Packs/Day Years [...] troponins kary they sent her down to [facility] all initial studies and tests were [...] 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 She has [...] then called to her pharmacy she will pickling grader on 80 mg immediate release tablet and she will take that tonight before she goes to bed. She will then pickling grader a new tablet for 240 mg 1/day [...] ed well. Paper copy sent for interpretation. Cynthia. Raheel Lopez MD ECG ORDERABLES documented in this encounter Visit Diagnoses Diagnosis History of coronary vasospasm - Primary Shortness of breath documented in this encounter Care Teams Well Flow Operator Relationship Specialty Start Date End Date Tiffanie Mcgovern, WIRE BRUSH MAKER, INGREDIENT SPECIALIST PCP - General 10/14/17 07/14/19 100 [place] [address] documented as of this encounter
--- OUTSIDE RECORDS SUMMARY | 2022-02-02 09:23 | XMS_ITS | Encounter Summary ---
:1970 Author Organization [facility] Address [address] [place] [address] Care Team Providers Name Role Phone Tiffanie Mcgovern LOG FEEDER, UNDERWEAR FINISHER Primary Care Provider [phone] Reason for Visit Reason Onset Date Comments status update 05/19/2019 Encounter Details Date Type Department Care Team Description 05/19/2019 Telephone [place], status update [address] LOG FEEDER, UNDERWEAR FINISHER Robert Guerrero ERNESTO [address] [address] [facility] [phone] [place], [place] [address] Social History Tobacco Use [...] 3:23 PM CDT Patient informed, clint will bean picker machine operator note. Telephone Encounter - Roopa Lopez MD - 05/19/2019 3:04 PM CDT Work note written. Laura can bean picker machine operator or ask her where to [...] is doing. Pt can be reached at [phone]. documented in this encounter Plan of Treatment Not on filedocumented as of this encounter Visit Diagnoses Diagnosis Bronchitis - Primary Bronchitis, not specified as acute or ch ronic documented in this encounter Care Teams Registered Public Health Nurse Relationship Specialty Start Date End Date Tiffanie Mcgovern, LOG FEEDER, UNDERWEAR FINISHER PCP - General 10/14/17 07/14/19 100 [facility] [place] [address] documented as of this encounter
--- OUTSIDE RECORDS SUMMARY | 2022-02-02 09:23 | XMS_ITS | Encounter Summary ---
:1970 Author Organization [facility] Address [address] [place] [address] Care Team Providers Name Role Phone Tiffanie Mcgovern APRN, KYLE Primary Care Provider [phone] Encounter Details Date Type Department Care Team Description 07/17/2018 Lab Robert Guerrero Other fatigue; [address] Shakiness; [place] [address] Muscle cramps; [phone] Diaphoresis; Influenza-like illness Social History Tobacco Use [...] AM CDT) athologist Signature GFR >60 07/17/2018 [facility] 7:15 PM CDT CENTER LAB[facility]ATORY >60 07/17/2018 [facility] Macanese GFR 7:15 PM CDT CENTER LAB[facility]ATORY Comment: [...] CNP LAB BLOOD ORDERABLES Performing Organization Address City/[facility]/ZIP Code Phon e Number [facility] [address] [place] [address] Mononucleosis screen (07/17/2018 11:55 AM CDT) athologist Signature Monospot NEGATIVE Negative 07/17/2018 [facility] 12:04 PM CDT [place] Specimen Anatomical Collection Method Collection Time Receive d Time (Source) Location / / Volume Laterality Blood (Blood, 07/17/2018 11:55 07/17/2018 Venous) AM CDT 12:02 PM CDT Tiffanie Mcgovern APRN, CNP LAB BLOOD ORDERABLES Performing Organization Address City/[facility]/ZIP Code Phon e Number [facility] [place] [address] [place] [address] (ABNORMAL) CBC Branch Off w/Diff (07/17/2018 11:55 AM CDT) Patholo gist Method Time Signature WBC 9.9 3.5 - 10.5 07/17/2018 [facility] K/uL 12:02 PM CDT [place] RBC 4.33 3.90 - 07/17/2018 [facility] 5.00 M/uL 12:02 PM CDT [place] Hemoglobin 14.1 12.0 - 07/17/2018 [facility] 15.5 g/dL 12:02 PM CDT [place] Hematocrit 39.7 35.0 - 07/17/2018 [facility] 44.0 % 12:02 PM CDT [place] Platelets 302 150 - 450 07/17/2018 [facility] K/uL 12:02 PM CDT [place] MCV 91.7 81.6 - 07/17/2018 [facility] 98.3 fL 12:02 PM CDT [place] MCH 32.6 (H) 26.0 - 07/17/2018 [facility] 32.0 pg 12:02 PM CDT [place] MCHC 35.5 32.0 - 07/17/2018 [facility] 36.0 g/dL 12:02 PM CDT [place] RDW 12.7 11.9 - 07/17/2018 [facility] 15.5 % 12:02 PM CDT [place] Lymphocytes % 19.1 18.0 - 07/17/2018 [facility] 45.0 % 12:02 PM CDT [place] Mid-size Cells 8.9 3.3 - 10.1 07/17/2018 [facility] % 12:02 PM CDT [place] Granulocytes/Leslie 72.0 45.8 - 07/17/2018 [facility] trophils 73.7 % 12:02 PM CDT [place] Lymphocytes 1.9 0.9 - 2.9 07/17/2018 [facility] Absolute K/uL 12:02 PM CDT [place] MIDS Absolute 0.9 (H) 0.2 - 0.8 07/17/2018 [facility] K/uL 12:02 PM CDT [place] Granulocytes/Leslie 7.1 2.1 - 8.7 07/17/2018 [facility] trophils K/uL 12:02 PM CDT [place] Absolute Specimen Anatomical Collection Method Collection Time Receive d Time (Source) Location / / Volume Laterality Blood (Blood, 07/17/2018 11:55 07/17/2018 Venous) AM CDT 12:02 PM CDT Tiffanie Mcgovern APRN, CNP LAB BLOOD ORDERABLES Performing Organization Address City/[facility] Phon e Number [facility] [place] [address] [place] [address] Lyme Disease Serology (07/17/2018 11:55 AM CDT) [facility] gist Method Time Signature Lyme Disease Negative Negative 07/20/2018 [facility] Serology 3:45 PM CDT LABORATORIES Comment: No evidence of antibodies to B. burgdorf serenity detected. False negative results may occur in rece ntly infected patients (<=2 weeks) due to low or undet ectable antibody levels to B. burgdorferi. If recent expo sure is suspected, a second sample should be collected and tested in 2-4 weeks. Test Performed by: [facility] [address] [place], [place] [address] Specimen Anatomical Collection Method Collection Time Receive d Time (Source) Location / / Volume Laterality Blood (Blood, 07/17/2018 11:55 07/17/2018 9:07 Venous) AM CDT PM CDT Tiffanie Mcgovern APRN, CNP LAB BLOOD ORDERABLES Performing Organization Address [facility]/ZIP Code Phon e Number [facility] see result attachment for specific address (ABNORMAL) Basic metabolic panel (07/17/2018 11:55 AM CDT) Analysis Performed At Path logist Time Signature Sodium 137 135 - 145 07/17/2018 [place] mEq/L 7:15 PM [facility] CENTER LABORATORY Potassium 4.2 3.5 - 5.1 07/17/2018 [place] mEq/L 7:15 PM [facility] Chloride 102 98 - 107 07/17/2018 [place] mEq/L 7:15 PM [facility] CO2 25 22 - 29 07/17/2018 [place] mmol/L 7:15 PM [facility] Creatinine 0.7 0.4 - 1.2 07/17/2018 [place] mg/dL 7:15 PM [facility] BUN 13 5 - 25 07/17/2018 [place] mg/dL 7:15 PM [facility] Glucose 109 (H) 70 - 100 07/17/2018 [place] mg/dL 7:15 PM [facility]T [facility] Calcium, 9.9 8.4 - 10.2 07/17/2018 [place] Total,S mg/dL 7:15 PM [facility] Fasting? No 07/17/2018 [facility] 12:02 PM [facility] [place] Specimen Anatomical Collection Method Collection Time Receive d Time (Source) Location / / Volume Laterality Blood (Blood, 07/17/2018 11:55 07/17/2018 6:44 Venous) AM CDT PM CDT Tiffanie Mcgovern APRN, CNP LAB BLOOD ORDERABLES Performing Organization Address City/[facility]/ZIP Code Phon e Number [facility] [address] [place] [address] [facility] [address] [place] [id number] LABORATORY Liver panel (07/17/2018 11:55 AM CDT) athologist Signature Total Protein 7.8 6.3 - 8.2 07/17/2018 [place] g/dL 7:15 PM [facility] Albumin, Serum 4.4 3.5 - 5.0 07/17/2018 [place] g/dL 7:15 PM [facility] Total Bilirubin <0.7 0.1 - 1.0 07/17/2018 [place] mg/dL 7:15 PM [facility] Bilirubin, <0.1 0.0 - 0.3 07/17/2018 [place] Direct mg/dL 7:15 PM [facility] AST 26 8 - 43 U/L 07/17/2018 [place] 7:15 PM [facility] Alkaline 59 38 - 128 07/17/2018 [place] Phosphatase U/L 7:15 PM [facility] ALT (SGPT) 28 0 - 34 U/L 07/17/2018 [place] 7:15 PM [facility] Specimen Anatomical Collection Method Collection Time Receive d Time (Source) Location / / Volume Laterality Blood (Blood, 07/17/2018 11:55 07/17/2018 6:44 Venous) AM CDT PM CDT Tiffanie Mcgovern APRN, CNP LAB BLOOD ORDERABLES Performing Organization Address City/[facility]/ZIP Code Phon e Number [facility] [address] [place] [address] documented in this encounter Visit Diagnoses Diagnosis Other fatigue Shakiness Abnormal involuntary movements Muscle cramps Diaphoresis Generalized hyperhidrosis Influenza-like illness documented in this encounter Care Teams Map Drafter Relationship Specialty Start Date End Date Tiffanie Mcgovern APRN, COVER MAT MACHINE OPERATOR PCP - General 10/14/17 07/14/19 100 [place] [address] documented as of this encounter
--- OUTSIDE RECORDS SUMMARY | 2022-02-02 09:23 | XMS_ITS | Encounter Summary ---
:1970 Author Organization [facility] Address [address] [place] [address] Care Team Providers Name Role Phone Tiffanie Mcgovern APRN, CNP Primary Care Provider [phone] Encounter Details Date Type Department Care Team Description 10/27/2018 Telephone Robert Guerrero Tiffanie Mcgovern, [address] [place] Ramirez [address] 100 [facility] [phone] [place], [place] [address] Social History Tobacco Use [...] on filedocumented in this encounter Care Teams Director Stars Relationship Specialty Start Date End Date Tiffanie Mcgovern, CONTROL SYSTEM MANAGER, OPTICAL ENGINEERING MANAGER PCP - General 10/14/17 07/14/19 100 [facility] [place] [address] documented as of this encounter
--- OUTSIDE RECORDS SUMMARY | 2022-02-02 09:23 | XMS_ITS | Encounter Summary ---
:1970 Author Organization [facility] Address [address] [place] [address] Care Team Providers Name Role Phone Tiffanie Mcgovern APRN, KYLE Primary Care Provider [phone] Encounter Details Date Type Department Care Team Description 12/16/2018 Orders Only [place], [address] [place], KYLE ERNESTO Ramirez [address] 100 [facility] [phone] [place], [place] [address] Social History Tobacco Use [...] on filedocumented in this encounter Care Teams Associate Professor Of History Relationship Specialty Start Date End Date Tiffanie Mcgovern APRN, HOSPITAL LABORATORY TECHNICIAN PCP - General 10/14/17 07/14/19 100 [facility] [place] [address] documented as of this encounter
--- OUTSIDE RECORDS SUMMARY | 2022-02-02 09:23 | XMS_ITS | Encounter Summary ---
:1970 Author Organization [facility] Address [address] [place] [address] Care Team Providers Name Role Phone Tiffanie Mcgovern APRN, KYLE Primary Care Provider [phone] Reason for Visit Reason Comments Med Refill Encounter Details Date Type Department Care Team Description 09/02/2018 Refill [place], Hyperlipidemia, [address] KYLE [place] unspecified ERNESTO Ramirez [address] 100 [facility] hyperlipidemia type [phone] [place], [place] [address] (Primary Dx) Social History [...] Out 02/18/2020 02/18/2020 02/18/2020 4:4 1 PM CONTACT LENS TECHNICIAN COVID-19 Rule Out 02/27/2021 02/27/2021 02/27/2021 10: 40 AM CONTACT LENS TECHNICIAN COVID-19 Confirmed 02/27/2021 02/27/2021 05/28/2021 8: 17 PM CDT documented as of this encounter Care Teams Government Affairs Fellow Relationship Specialty Start Date End Date Tiffanie Mcgovern APRN, CLINICAL RESOURCE COORDINATOR PCP - General Family Medicine 02/27/[address] [place] [address] [place] [address] documented as of this encounter
--- OUTSIDE RECORDS SUMMARY | 2022-02-02 09:23 | XMS_ITS | Encounter Summary ---
:1970 Author Organization [facility] Address [address] [place] [address] Care Team Providers Name Role Phone McgovernTiffanie APRN, SMOKE TESTER Primary Care Provider [phone] Encounter Details Date Type Department Care Team Description 06/09/2019 Telemedicine [place] Gandhi GUSTAVO (generalized [address] MD Raheel anxiety disorder) [place], [place] [address] (Primary Dx) [phone] [place] [address] Social History Tobacco Use Types Packs/Day Years [...] conducted by telephone without visualization by either constitution party due to the national emergency created by the pandemic. Therefore no physical exam was possible and we are unable to perform vital signs or other [id number] testing or assessments. The patient understands the [...] underwent a complete and full evaluation at [facility] they did not notice any hardening of [...] day to 240 mg/day she saw her main line station engineer they agreed with pro cess and she [...] disorder documented in this encounter Care Teams Bleach Boiler Packer Relationship Specialty Start Date End Date Tiffanie Mcgovern APRN, SMOKE TESTER PCP - General 10/14/17 07/14/19 100 [facility] [place] [address] documented as of this encounter
--- OUTSIDE RECORDS SUMMARY | 2022-02-02 09:23 | XMS_ITS | Encounter Summary ---
:1970 Author Organization [facility] Address [address] [place] [address] Care Team Providers Name Role Phone Tiffanie Mcgovern APRN, KYLE Primary Care Provider [phone] Encounter Details Date Type Department Care Team [...] Potassium 4.0 3.5 - 5.1 12/15/2018 [facility] mEq/L 1:10 PM CDT CENTER LABORATORY Specimen Anatomical Collection Method Collection Time Receive d Time (Source) Location / / Volume Laterality 12/14/2018 10:14 12/15/2018 AM CDT 12:35 PM CDT Tiffanie Mcgovern APRN, CNP LAB BLOOD ORDERABLES Performing Organization Address City/[facility]/ZIP Code Phon e Number [facility] [address] [place] [address] HemoCue glucose (12/14/2018 10:14 AM CDT) athologist Signature Glucose, Bld 87 70 - 100 12/14/2018 [facility] mg/dL 10:32 AM CDT [place] Comment: . Specimen Anatomical Collection Method Collection Time Receive d Time (Source) Location / / Volume Laterality 12/14/2018 10:14 12/14/2018 AM CDT 10:14 AM CDT Tiffanie Mcgovern APRN, CNP LAB BLOOD ORDERABLES Performing Organization Address City/[facility]/ZIP Code Phon e Number [facility] [place] [address] [place] [address] (ABNORMAL) Lipid panel (12/14/2018 10:14 AM CDT) athologist Signature Cholesterol 171 0 - 199 12/15/2018 [facility] mg/dL 1:10 PM CDT CENTER LABORATORY Comment: Recommended by National Cholesterol Education Program (ATP III) -------- Cholesterol Ranges -------- <200 ? Desirable 200-239 ? Borderline high >=240 ? High Triglycerides 150 (A) 0 - 149 mg/dL 12/15/2018 1:10 PM CDT [facility] Comment: -------- TRIG Ranges -------- <150 ?Normal 150-199 ? Borderline high 200-499 ? High >=500 ? Very high HDL 59 40 - 60 mg/dL 12/15/2018 1:10 PM CDT [facility] Comment: -------- HDL Ranges -------- <40 ?Low 40-59 ?Normal >=60 ? Optimal LDL Calculated 82 0 - 99 mg/dL 12/15/2018 1:10 PM CDT [facility] Comment: -------- LDL Ranges -------- <100 ? Optimal 100-129 ?Near optimal/above op timal 130-159 ?Borderline high 160-189 ?High >=190 ?Very high Fasting? Yes 12/14/2018 10:27 AM CDT [facility] Specimen Anatomical Collection Method Collection Time Receive d Time (Source) Location / / Volume Laterality Blood 12/14/2018 10:14 12/15/2018 AM CDT 12:35 PM CDT Tiffanie Mcgovern APRN, SENIOR MATERIALS PLANNER LAB BLOOD ORDERABLES Performing Organization Address City/State/ZIP Code Phon e Number [facility] [address] [place] [address] CBC Branch Off w/Diff (12/14/2018 10:14 AM CDT) P athologist Signature WBC 6.2 3.5 - 10.5 12/14/2018 [facility] K/uL 10:32 AM CDT [place] RBC 4.36 3.90 - 12/14/2018 [facility] 5.00 M/uL 10:32 AM CDT [place] Hemoglobin 13.8 12.0 - 12/14/2018 [facility] 15.5 g/dL 10:32 AM CDT [place] Hematocrit 39.8 35.0 - 12/14/2018 [facility] 44.0 % 10:32 AM CDT [place] Platelets 329 150 - 450 12/14/2018 [facility] K/uL 10:32 AM CDT [place] MCV 91.3 81.6 - 12/14/2018 [facility] 98.3 fL 10:32 AM CDT [place] MCH 31.7 26.0 - 12/14/2018 [facility] 32.0 pg 10:32 AM CDT [place] MCHC 34.7 32.0 - 12/14/2018 [facility] 36.0 g/dL 10:32 AM CDT [place] RDW 12.6 11.9 - 12/14/2018 [facility] 15.5 % 10:32 AM CDT [place] Lymphocytes % 26.2 18.0 - 12/14/2018 [facility] 45.0 % 10:32 AM CDT [place] Mid-size Cells 9.2 3.3 - 10.1 12/14/2018 [facility] % 10:32 AM CDT [place] Granulocytes/Leslie 64.6 45.8 - 12/14/2018 [facility] trophils 73.7 % 10:32 AM CDT [place] Lymphocytes 1.6 0.9 - 2.9 12/14/2018 [facility] Absolute K/uL 10:32 AM CDT [place] MIDS Absolute 0.6 0.2 - 0.8 12/14/2018 [facility] K/uL 10:32 AM CDT [place] Granulocytes/Leslie 4.0 2.1 - 8.7 12/14/2018 [facility] trophils K/uL 10:32 AM CDT [place] Absolute Specimen Anatomical Collection Method Collection Time Receive d Time (Source) Location / / Volume Laterality Blood 12/14/2018 10:14 12/14/2018 AM CDT 10:14 AM CDT Tiffanie Mcgovern APRN, SENIOR MATERIALS PLANNER LAB BLOOD ORDERABLES Performing Organization Address City/State/ZIP Code Phon e Number [facility] [address] [place] [address] Fasting ? (12/14/2018 10:00 AM CDT) P athologist Signature Fasting? Yes 12/14/2018 [facility] 10:27 AM CDT [place] Specimen Anatomical Collection Method Collection Time Receive d Time (Source) Location / / Volume Laterality 12/14/2018 10:00 12/14/2018 AM CDT 10:00 AM CDT Tiffanie Mcgovern APRN, CNP LAB BLOOD ORDERABLES Performing Organization Address City/State/ZIP Code Phon e Number [facility] [address] [place] [address] documented in this encounter Visit Diagnoses Diagnosis Preoperative examination Unspecified pre-operative examination Hyperlipidemia, unspecified hyperlipidem ia type documented in this encounter Care Teams Clinical Courier Relationship Specialty Start Date End Date Tiffanie Mcgovern APRN, SENIOR MATERIALS PLANNER PCP - General 10/14/17 07/14/19 100 [place] [address] documented as of this encounter
--- OUTSIDE RECORDS SUMMARY | 2022-02-02 09:23 | XMS_ITS | Encounter Summary ---
:1970 Author Organization [facility] Address [address] [place] [address] Care Team Providers Name Role Phone Tiffanie Mcgovern APRN, KYLE Primary Care Provider [phone] Reason for Visit Reason Comments Flu Symptoms Encounter Details Date Type Department Care Team Description 05/17/2019 Office Visit Roopa Caldwell Cough (Primary Dx); [address] MD Raheel Body aches; [place]ST[place] [address] SOB (shortness of breath); [phone] [place]; [place] Fever, unsp ecified fever cause [phone] Social History Tobacco Use Types Packs/Day Years [...] CDT) athologist Signature Rapid NEGATIVE Negative 05/17/2019 [facility] [place] Influenza A 12:03 PM CDT [place] Rapid NEGATIVE Negative 05/17/2019 [facility] Influenza B 12:03 PM CDT [place] Comment: A negative test is presumptive and does not exclude influenza virus infection. Specimen Anatomical Collection Method Collection Time Receive d Time (Source) Location / / Volume Laterality Swab 05/17/2019 11:35 05/17/2019 (Nasopharynx) AM CDT 11:46 AM CDT Roopa Lopez MD LAB BODY FLUIDS AND STOOLS O RDERABLES Performing Organization Address City/State/ZIP Code Phon e Number [facility] [place] [facility] [address] [place] [address] documented in this encounter Visit Diagnoses Diagnosis Cough - Primary Body aches Generalized pain SOB (shortness of breath) Shortness of breath Chills Chills (without fever) Fever, unspecified fever cause documented in this encounter Care Teams Roll Forger Relationship Specialty Start Date End Date Tiffanie Mcgovern, RAILROAD FIRER, CHIEF CONSOLE OPERATOR PCP - General 10/14/17 07/14/19 100 [facility] [place] [address] documented as of this encounter
--- OUTSIDE RECORDS SUMMARY | 2022-02-02 09:23 | XMS_ITS | Encounter Summary ---
:1970 Author Organization [facility] Address [address] [place] [address] Care Team Providers Name Role Phone Tiffanie Mcgovern ROTARY LITHOGRAPHIC PRESS OPERATOR, WELDING PANTOGRAPH OPERATOR Primary Care Provider [phone] Encounter Details Date Type Department Care Team Description 07/21/2018 Orders Only [place], Screening for [address] ROTARY LITHOGRAPHIC PRESS OPERATOR, WELDING PANTOGRAPH OPERATOR diabetes mellitus [place] Ramirez [address] (Primary Dx) [address] [place] [address] Social History Tobacco Use Types Packs/Day Years [...] Hemoglobin A1C 5.3 4.0 - 5.6 07/23/2018 [facility] % A1C 1:44 PM CDT CENTER LABORATORY [...] CDT 12:17 PM CDT Tiffanie Mcgovern APRN, WELDING PANTOGRAPH OPERATOR LAB BLOOD ORDERABLES Performing Organization Address City/State/ZIP Code Phon e Number [facility] [address] [place] [address] documented in this encounter Visit Diagnoses Diagnosis Screening for diabetes mellitus - Primar y documented in this encounter Care Teams Roller Hand Relationship Specialty Start Date End Date Tiffanie Mcgovern APRN, WELDING PANTOGRAPH OPERATOR PCP - General 10/14/17 07/14/19 100 [place] [address] documented as of this encounter
--- OUTSIDE RECORDS SUMMARY | 2022-02-02 09:23 | XMS_ITS | Encounter Summary ---
:1970 Author Organization [facility] Address [address] [place] [address] Care Team Providers Name Role Phone Tiffanie Mcgovern COURTROOM DEPUTY OR CALENDAR CLERK, REBEAMER Primary Care Provider [phone] Reason for Visit Reason Comments Pre-op Exam Pre-op physiocal, DOS: 12/18, Left Hip Encounter Details Date Type Department Care Team Description 12/14/2018 Consult Tiffanie Acuna, Preoperative examination (Pr imary Dx); [address] COURTROOM DEPUTY OR CALENDAR CLERK, KYLE Tear of left acetabular labrum, subseque nt encounter; ERNESTO Ramirez [address] Hyperlipidemia, unspecified hyperlipidem ia type [address] [place] [address] Social History Tobacco Use Types Packs/Day Years [...] under the care of Dr. Cortes, at [facility] in [place], on December 18, 2018. The preoperative risk [...] under the care of Dr. Cortes, at [facility] in [place], on December 18, 2018. The patient will hold all [id number] medications at this time and take the [...] the care of Dr. Cortes, at [facility], in [place], on December 18, 2018. The patient reports she has been experiencing bilateral hip pain for the past year, withoutan injury, has been under the care of [facility], where MRIs were completed, with a labral tear of both hips, however, the right hip responded to therapy and she is no longer having any discomfort, and the left hip did not. She reports her left hip pain is worsening, a feeling of [id number].The patient reports she typically does not take [...] (gastroesophageal reflux disease) ??? Headache History ??? 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 No stents required. No [...] file Gets together: Not on file Attends confucianism service: Not on file Active member of [...] dysuria, urinary frequency, urgency, nocturia and/or hematuria. REGISTERED APPRAISER: Hysterectomy at the age of 33. ENDOCRINOLOGY: [...] Add-On Test Request (12/14/2018 12:09 PM CDT) [facility] gist Method Time Signature Add-on Testing SEE BELOW 12/14/2018 [place]OWL[place] GREEN 12:14 PM T [facility] Comment: K+ was added to testing. Specimen Anatomical Collection Method Collection Time Receive d Time (Source) Location / / Volume Laterality 12/14/2018 12:09 12/14/2018 PM CDT 12:09 PM CDT Tiffanie Mcgovern APRN, CNP LAB BLOOD ORDERABLES Performing Organization Address City/State/ZIP Code Phon e Number [facility] [address] [place] [address] X-ray Chest 2 Views (12/14/2018 10:16 AM [...] effusion. IMPRESSION: Unremarkable exam. Tiffanie M Mcgovern COURTROOM DEPUTY OR CALENDAR CLERK, REBEAMER IMG XR PROCEDURES CBC Branch Off w/Diff (12/14/2018 10:14 AM CDT) P athologist Signature WBC 6.2 3.5 - 10.5 12/14/2018 [facility] K/uL 10:32 AM CDT [place] RBC 4.36 3.90 - 12/14/2018 [facility] 5.00 M/uL 10:32 AM CDT [place] Hemoglobin 13.8 12.0 - 12/14/2018 [facility] 15.5 g/dL 10:32 AM CDT [place] Hematocrit 39.8 35.0 - 12/14/2018 [facility] 44.0 % 10:32 AM CDT [place] Platelets 329 150 - 450 12/14/2018 [facility] K/uL 10:32 AM CDT [place] MCV 91.3 81.6 - 12/14/2018 [facility] 98.3 fL 10:32 AM CDT [place] MCH 31.7 26.0 - 12/14/2018 [facility] 32.0 pg 10:32 AM CDT [place] MCHC 34.7 32.0 - 12/14/2018 [facility] 36.0 g/dL 10:32 AM CDT [place] RDW 12.6 11.9 - 12/14/2018 [facility] 15.5 % 10:32 AM CDT [place] Lymphocytes % 26.2 18.0 - 12/14/2018 [facility] 45.0 % 10:32 AM CDT [place] Mid-size Cells 9.2 3.3 - 10.1 12/14/2018 [facility] % 10:32 AM CDT [place] Granulocytes/Leslie 64.6 45.8 - 12/14/2018 [facility] trophils 73.7 % 10:32 AM CDT [place] Lymphocytes 1.6 0.9 - 2.9 12/14/2018 [facility] Absolute K/uL 10:32 AM CDT [place] MIDS Absolute 0.6 0.2 - 0.8 12/14/2018 [facility] K/uL 10:32 AM CDT [place] Granulocytes/Leslie 4.0 2.1 - 8.7 12/14/2018 [facility] trophils K/uL 10:32 AM CDT [place] Absolute Specimen Anatomical Collection Method Collection Time Receive d Time (Source) Location / / Volume Laterality Blood 12/14/2018 10:14 12/14/2018 AM CDT 10:14 AM CDT Tiffanie Mcgovern APRN, REBEAMER LAB BLOOD ORDERABLES Performing Organization Address City/State/ZIP Code Phon e Number [facility] [place] [address] [place] [address] (ABNORMAL) Lipid panel (12/14/2018 10:14 AM CDT) athologist Signature Cholesterol 171 0 - 199 12/15/2018 [facility] mg/dL 1:10 PM CDT [facility] Comment: Recommended by National Cholesterol Education Program (ATP III) -------- Cholesterol Ranges -------- <200 ? Desirable 200-239 ? Borderline high >=240 ? High Triglycerides 150 (A) 0 - 149 mg/dL 12/15/2018 1:10 PM T [facility] Comment: -------- TRIG Ranges -------- <150 ?Normal 150-199 ? Borderline high 200-499 ? High >=500 ? Very high HDL 59 40 - 60 mg/dL 12/15/2018 1:10 PM CDT [facility] Comment: -------- HDL Ranges -------- <40 ?Low 40-59 ?Normal >=60 ? Optimal LDL Calculated 82 0 - 99 mg/dL 12/15/2018 1:10 PM T [facility] Comment: -------- LDL Ranges -------- <100 ? Optimal 100-129 ?Near optimal/above op timal 130-159 ?Borderline high 160-189 ?High >=190 ?Very high Fasting? Yes 12/14/2018 10:27 AM CDT [facility] Specimen Anatomical Collection Method Collection Time Receive d Time (Source) Location / / Volume Laterality Blood 12/14/2018 10:14 12/15/2018 AM CDT 12:35 PM CDT Tiffanie Mcgovern APRN, CNP LAB BLOOD ORDERABLES Performing Organization Address City/State/ZIP Code Phon e Number [facility] [address] [place] [address] ECG 12 lead (12/14/2018 12:00 AM CDT) Narrative This result has an attachment that is no t available. Tiffanie Mcgovern APRN, CNP ECG ORDERABLES documented in this encounter Visit Diagnoses Diagnosis Preoperative examination - Primary Unspecified pre-operative examination Tear of left acetabular labrum, subseque nt encounter Hyperlipidemia, unspecified hyperlipidem ia type documented in this encounter Care Teams Candy Butcher Relationship Specialty Start Date End Date Tiffanie Mcgovern APRN, REBEAMER PCP - General 10/14/17 07/14/[address] [place] [address] documented as of this encounter
--- OUTSIDE RECORDS SUMMARY | 2022-02-02 09:23 | XMS_ITS | Encounter Summary ---
:1970 Author Organization [facility] Address [address] [place] [address] Care Team Providers Name Role Phone Tiffanie Mcgovern APRN, CNP Primary Care Provider [phone] Encounter Details Date Type Department Care Team Description 02/11/2019 Orders Only Rogelio [place] Tiffanie Mcgovern, Sinusitis, [address] K[place] unspecified [place] ERNESTO [address] [facility] chronicity, [address] [place] [address] unspecified location [phone] (Primary Dx) Social History Tobacco Use Types [...] Primary documented in this encounter Care Teams Liquefaction Plant Operator Relationship Specialty Start Date End Date Tiffanie Mcgovern APRN, KYLE PCP - General 10/14/17 07/14/19 100 [place] [address] documented as of this encounter
--- OUTSIDE RECORDS SUMMARY | 2022-02-02 09:23 | XMS_ITS | Encounter Summary ---
:1970 Author Organization [facility] Address [address] [place] [address] Care Team Providers Name Role Phone Tiffanie Mcgovern APRN, KYLE Primary Care Provider [phone] Encounter Details Date Type Department Care Team [...] on filedocumented in this encounter Care Teams Skatesman Relationship Specialty Start Date End Date Tiffanie Mcgovern APRN, CLOTHING PATTERN PREPARER PCP - General 10/14/17 07/14/19 100 [facility] [place] [address] documented as of this encounter
--- OUTSIDE RECORDS SUMMARY | 2022-02-02 09:23 | XMS_ITS | Encounter Summary ---
:1970 Author Organization [facility] Address [address] [place] [address] Care Team Providers Name Role Phone Tiffanie Mcgovern APRN, KYLE Primary Care Provider [phone] Encounter Details Date Type Department Care Team Description 07/22/2018 Lab [place] Screening for diabetes melli tus; [address] [facility] [place] [address] Social History Tobacco Use Types [...] Hemoglobin A1C 5.3 4.0 - 5.6 07/23/2018 [facility] % A1C 1:44 PM CDT [facility] [...] CDT 12:17 PM CDT Tiffanie Mcgovern APRN, POST GRADUATE INTERN LAB BLOOD ORDERABLES Performing Organization Address City/State/ZIP Code Phon e Number [facility] [address] [place] [address] documented in this encounter Visit Diagnoses Diagnosis Screening for diabetes mellitus Shakiness Abnormal involuntary movements documented in this encounter Care Teams Firmware Manager Relationship Specialty Start Date End Date Tiffanie Mcgovern APRN, POST GRADUATE INTERN PCP - General 10/14/17 07/14/19 100 [place] [address] documented as of this encounter
--- OUTSIDE RECORDS SUMMARY | 2022-02-02 09:23 | XMS_ITS | Encounter Summary ---
:1970 Author Organization [facility] Address [address] [place] [address] Care Team Providers Name Role Phone Tiffanie Mcgovern CARDROOM DRAWING RUNNER, FLANGING MACHINE OPERATOR Primary Care Provider [phone] Reason for Visit Reason Onset Date Comments Pre-op H&P 12/16/2018 Encounter Details Date Type Department Care Team Description 12/16/2018 Telephone Tiffanie Acuna, Pre-op H&P [address] CARDROOM DRAWING RUNNER, FLANGING MACHINE OPERATOR ERNESTO Ramirez [address] [facility] [address] [phone] [place], [place] [address] Social History Tobacco Use [...] 4:16 PM CDT Pre-op paperwork faxed to [facility] at [phone] as requested. Telephone Encounter - Chelsea Romero [...] - 12/16/2018 2:44 PM CDT Jackie with [facility] called requesting Pt's Pre-op physical and any EKG and lab work be faxed to [phone] as Pt's surgery is this Friday12/18/18. Any questions please call Jackie at [phone], documented in this encounter Plan of Treatment Not on filedocumented as of this encounter Visit Diagnoses Not on filedocumented in this encounter Care Teams Long Distance Billing Operator Relationship Specialty Start Date End Date Tiffanie Mcgovern APRN, KYLE PCP - General 10/14/17 07/14/19 [address] [place] [address] documented as of this encounter
--- OUTSIDE RECORDS SUMMARY | 2022-02-02 09:23 | XMS_ITS | Encounter Summary ---
:1970 Author Organization [facility] Address [address] [place] [address] Care Team Providers Name Role Phone Tiffanie Mcgovern APRN, CNP Primary Care Provider [phone] Reason for Visit Reason Comments Follow-up Still not feeling well Encounter Details Date Type Department Care Team Description 07/17/2018 Office Visit Tiffanie Acuna Sinusitis, unspecified chron icity, unspecified location (Primary Dx); [address] M, KYLE [place] T[place] Shakiness; ERNESTO Ramirez [address] Other fatigue; [address] [place] [address] Muscle cramps; [phone] Diaphore sis; Motion sickness , initial encounter [...] diff, BMP, Lyme's, Liver, HGB A1c, and Bee. Bee negative. Lab Results Component Value Date WBC [...] agrees andunderstands this plan of care. Tiffanie Mcgovern, FIELD IRRIGATION WORKER, SHOULDER SAWYER documented in this encounter Plan of Treatment Not on filedocumented as of this encounter Results Liver panel (07/17/2018 11:55 AM CDT) P athologist Signature Total Protein 7.8 6.3 - 8.2 07/17/2018 [place] g/dL 7:15 PM [facility] Albumin, Serum 4.4 3.5 - 5.0 07/17/2018 [place] g/dL 7:[address] [facility] Total Bilirubin <0.7 0.1 - 1.0 07/17/2018 [place] mg/dL 7:[address] [facility] Bilirubin, <0.1 0.0 - 0.3 07/17/2018 [place] Direct mg/dL 7:[address] [facility] AST 26 8 - 43 U/L 07/17/2018 [place] 7:[address] [facility] Alkaline 59 38 - 128 07/17/2018 [place] Phosphatase U/L 7:[address] [facility] ALT (SGPT) 28 0 - 34 U/L 07/17/2018 [place] 7:[address] [facility] Specimen Anatomical Collection Method Collection Time Receive d Time (Source) Location / / Volume Laterality Blood (Blood, 07/17/2018 11:55 07/17/2018 6:44 Venous) AM CDT PM CDT Tiffanie Mcgovern APRN, SHOULDER SAWYER LAB BLOOD ORDERABLES Performing Organization Address City/State/ZIP Code Phon e Number [facility] [address] [place] [address] (ABNORMAL) Basic metabolic panel (07/17/2018 11:55 AM CDT) Analysis Performed At Patho logist Time Signature Sodium 137 135 - 145 07/17/2018 [place] mEq/L 7:15 PM [facility] Potassium 4.2 3.5 - 5.1 07/17/2018 [place] mEq/L 7:[address] [facility] Chloride 102 98 - 107 07/17/2018 [place] mEq/L 7:15 PM [facility] CO2 25 22 - 29 07/17/2018 [place] mmol/L 7:[address] [facility] Creatinine 0.7 0.4 - 1.2 07/17/2018 [place] mg/dL 7:[address] [facility] BUN 13 5 - 25 07/17/2018 [place] mg/dL 7:[address] [facility] Glucose 109 (H) 70 - 100 07/17/2018 [place] mg/dL 7:[address] [facility] Calcium, 9.9 8.4 - 10.2 07/17/2018 [place] Total,S mg/dL 7:[address] [facility] Fasting? No 07/17/2018 [facility] 12:02 PM CDT [place] Specimen Anatomical Collection Method Collection Time Receive d Time (Source) Location / / Volume Laterality Blood (Blood, 07/17/2018 11:55 07/17/2018 6:44 Venous) AM CDT PM CDT Tiffanie Mcgovern APRN, CNP LAB BLOOD ORDERABLES Performing Organization Address City/[facility] Phon e Number [facility] [address] [place] [address] [facility] [address] [place] [address] LABORATORY Lyme Disease Serology (07/17/2018 11:55 AM CDT) [facility] Method Time Signature Lyme Disease Negative Negative 07/20/2018 [facility] Serology 3:45 PM CDT LABORATORIES Comment: No evidence of antibodies to B. burgdorf serenity detected. False negative results may occur in rece ntly infected patients (<=2 weeks) due to low or undet ectable antibody levels to B. burgdorferi. If recent expo sure is suspected, a second sample should be collected and tested in 2-4 weeks. Test Performed by: [facility] [address] [place], [place] [address] Specimen Anatomical Collection Method Collection Time Receive d Time (Source) Location / / Volume Laterality Blood (Blood, 07/17/2018 11:55 07/17/2018 9:07 Venous) AM CDT PM CDT Tiffanie Mcgovern APRN, CNP LAB BLOOD ORDERABLES Performing Organization Address City/[facility]/ZIP Code Phon e Number [facility] see result attachment for specific address (ABNORMAL) CBC Branch Off w/Diff (07/17/2018 11:55 AM CDT) [facility] gist Method Time Signature WBC 9.9 3.5 - 10.5 07/17/2018 [facility] K/uL 12:02 PM CDT [place] RBC 4.33 3.90 - 07/17/2018 [facility] 5.00 M/uL 12:02 PM CDT [place] Hemoglobin 14.1 12.0 - 07/17/2018 [facility] 15.5 g/dL 12:02 PM CDT [place] Hematocrit 39.7 35.0 - 07/17/2018 [facility] 44.0 % 12:02 PM CDT [place] Platelets 302 150 - 450 07/17/2018 [facility] K/uL 12:02 PM CDT [place] MCV 91.7 81.6 - 07/17/2018 [facility] 98.3 fL 12:02 PM CDT [place] MCH 32.6 (H) 26.0 - 07/17/2018 [facility] 32.0 pg 12:02 PM CDT [place] MCHC 35.5 32.0 - 07/17/2018 [facility] 36.0 g/dL 12:02 PM CDT [place] RDW 12.7 11.9 - 07/17/2018 [facility] 15.5 % 12:02 PM CDT [place] Lymphocytes % 19.1 18.0 - 07/17/2018 [facility] 45.0 % 12:02 PM CDT [place] Mid-size Cells 8.9 3.3 - 10.1 07/17/2018 [facility] % 12:02 PM CDT [place] Granulocytes/Leslie 72.0 45.8 - 07/17/2018 [facility] trophils 73.7 % 12:02 PM CDT [place] Lymphocytes 1.9 0.9 - 2.9 07/17/2018 [facility] Absolute K/uL 12:02 PM CDT [place] MIDS Absolute 0.9 (H) 0.2 - 0.8 07/17/2018 [facility] K/uL 12:02 PM CDT [place] Granulocytes/Leslie 7.1 2.1 - 8.7 07/17/2018 [facility] trophils K/uL 12:02 PM CDT [place] Absolute Specimen Anatomical Collection Method Collection Time Receive d Time (Source) Location / / Volume Laterality Blood (Blood, 07/17/2018 11:55 07/17/2018 Venous) AM CDT 12:02 PM CDT Tiffanie Mcgovern APRN, CNP LAB BLOOD ORDERABLES Performing Organization Address City/[facility]/ZIP Code Phon e Number [facility] [place] [address] [place] [address] Mononucleosis screen (07/17/2018 11:55 AM CDT) athologist Signature Monospot NEGATIVE Negative 07/17/2018 [facility] 12:04 PM CDT [place] Specimen Anatomical Collection Method Collection Time Receive d Time (Source) Location / / Volume Laterality Blood (Blood, 07/17/2018 11:55 07/17/2018 Venous) AM CDT 12:02 PM CDT Tiffanie Mcgovern APRN, CNP LAB BLOOD ORDERABLES Performing Organization Address City/[facility] Phon e Number [facility] [place] [address] [place] [address] documented in this encounter Visit Diagnoses Diagnosis Sinusitis, unspecified chronicity, unspe cified location - Primary Shakiness Abnormal involuntary movements Other fatigue Muscle cramps Diaphoresis Generalized hyperhidrosis Motion sickness, initial encounter documented in this encounter Care Teams Client Services Specialist Relationship Specialty Start Date End Date Tiffanie Mcgovern APRN, KYLE PCP - General 10/14/17 07/14/19 100 [facility] [place] [address] documented as of this encounter
--- OUTSIDE RECORDS SUMMARY | 2022-02-02 09:23 | XMS_ITS | Encounter Summary ---
:1970 Author Organization [facility] Address [address] [place] [address] Care Team Providers Name Role Phone Tiffanie Mcgovern SUPERVISOR POULTRY PROCESSING, POLICEMAN Primary Care Provider [phone] Reason for Visit Reason Onset Date Comments TC FOLLOW UP 07/09/2018 Encounter Details Date Type Department Care Team Description 07/09/2018 Telephone Tiffanie Acuna, FOLLOW UP [address] SUPERVISOR POULTRY PROCESSING, POLICEMAN ERNESTO Ramirez [address] [facility] [phone] [place], [place] [address] Social History Tobacco Use [...] 07/09/2018 4:24 PM CDT STREP Patient #: [id number] [facility]acy[facility] medication of choice if positive- The provider will call patient if positive and will prescribed if positive. documented in this encounter Plan of Treatment Not on filedocumented as of this encounter Visit Diagnoses Not on filedocumented in this encounter Care Teams Supervisor Tunnel Heading Relationship Specialty Start Date End Date Tiffanie Mcgovern, SUPERVISOR POULTRY PROCESSING, POLICEMAN PCP - General 10/14/17 07/14/19 100 [facility] [place] [address] documented as of this encounter
--- OUTSIDE RECORDS SUMMARY | 2022-02-02 09:23 | XMS_ITS | Encounter Summary ---
:1970 Author Organization [facility] Address [address] [place] [address] Care Team Providers Name Role Phone Tiffanie Mcgovern APRN, CNP Primary Care Provider [phone] Reason for Visit Reason Comments Sleep Aid Encounter Details Date Type Department Care Team Description 04/02/2019 Office Visit Tiffanie Acuna Anxiety (Primary Dx); [address] M, KYLE DEL T[place]O Stress; ERNESTO Ramirez [address] Insomnia, unspecified type; [address] [place] [address] Right hip pain [phone] Social History Tobacco Use Types Packs/Day Years [...] Comments Blood Pressure 108/58 04/02/2019 9:47 AM FARM LOAN INSPECTOR Pulse 72 04/02/2019 9:47 AM FARM LOAN INSPECTOR Temperature 36.4 ??C (97.5 ??F) 04/02/2019 9:47 AM FARM LOAN INSPECTOR Respiratory Rate 18 04/02/2019 9:47 AM FARM LOAN INSPECTOR Oxygen Saturation 96% 04/02/2019 9:47 AM FARM LOAN INSPECTOR Inhaled Oxygen Concentration - - Weight 89.4 kg (197 lb) 04/02/2019 9:47 AM FARM LOAN INSPECTOR Height 175 cm (5' 8.9) 04/02/2019 9:47 AM FARM LOAN INSPECTOR Body Mass Index 29.18 04/02/2019 9:47 AM FARM LOAN INSPECTOR documented in this encounter Patient Instructions Patient InstructionsChpatel Mcgovern APRN, CNP - 04/02/2019 9:40 AM FARM LOAN INSPECTOR Zoloft 25 mg daily Tramadol for severe pain Trazodone 50 mg as needed Ativan 0.5 mg daily as needed for severe anxiety LOAN INSPECTOR documented in this encounter Progress Notes Tiffanie [...] time. The patient's stepmother is in a long-term with a declining memory, likely early dementia, which has not been diagnosed. 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 She reports her attention to detail [...] plan of care. Tiffanie Mcgovern APRN, KYLE LOAN INSPECTOR documented in this encounter Plan of Treatment Not on filedocumented as of this encounter Visit Diagnoses Diagnosis Anxiety - Primary Anxiety state, unspecified Stress Other psychological or physical stress, not elsewhere classified Insomnia, unspecified type Right hip pain Pain in joint, pelvic region and thigh documented in this encounter Care Teams Charge Hand Relationship Specialty Start Date End Date Tiffanie Mcgovern APRN, VISUAL EFFECTS ARTIST PCP - General 10/14/17 07/14/19 [address] [place] [address] documented as of this encounter
--- OUTSIDE RECORDS SUMMARY | 2022-02-02 09:23 | XMS_ITS | Encounter Summary ---
:1970 Author Organization [facility] Address [address] [place] [address] Care Team Providers Name Role Phone Tiffanie Mcgovern APRN, KYLE Primary Care Provider [phone] Reason for Visit Reason Onset Date Comments PINK EYE 01/27/2018 Encounter Details Date Type Department Care Team Description 01/27/2018 Telephone Tiffanie Acuna, PINK EYE [address] [place], KYLE ERNESTO Ramirez [address] [facility] [phone] [place], [place] [address] Social History Tobacco Use [...] - 01/27/2018 11:43 AM CST Patient informed. R VEHICLE FIELD REPRESENTATIVE Telephone Encounter - Tiffanie Mcgovern APRN, KYLE - 01/27/2018 10:58 AM MOTOR VEHICLE FIELD REPRESENTATIVE Absolutely the prescription has been sent to [facility]. Happy Thanksgiving. Thanks, Dennis R VEHICLE FIELD REPRESENTATIVE Telephone Encounter - Krystal Rice MA - 01/27/2018 9:49 AM CST Could you send drops into [facility]? R VEHICLE FIELD REPRESENTATIVE Telephone Encounter - Tammi Bar - 01/27/2018 9:30 AM CST Daughter had pink eye and now mother has the same. She is wondering if RX could be called to [facility]. Please advise. R VEHICLE FIELD REPRESENTATIVE documented in this encounter Plan of Treatment Not on filedocumented as of this encounter Visit Diagnoses Diagnosis Conjunctivitis, unspecified conjunctivit is type, unspecified laterality - Primary documented in this encounter Care Teams Tierce Filler Relationship Specialty Start Date End Date Tiffanie Mcgovern APRN, AREA DIRECTOR OF HOME HEALTH SALES PCP - General 10/14/17 07/14/[address] [place] [address] [place] [address] documented as of this encounter
--- OUTSIDE RECORDS SUMMARY | 2022-02-02 09:23 | XMS_ITS | Encounter Summary ---
:1970 Author Organization [facility] Address [address] [place] [address] Care Team Providers Name Role Phone Tiffanie Mcgovern APRN, CNP Primary Care Provider [phone] Encounter Details Date Type Department Care Team Description 07/12/2018 Orders Only Robert Guerrero Tiffanie Mcgovern, Influenza-like [address] KYLE DEL TORO illness (Primary Dx) ERNESTO Ramirez [address] [facility] [address] [place] [address] Social History Tobacco Use Types Packs/Day Years [...] Primary documented in this encounter Care Teams Supervisor Wet End Relationship Specialty Start Date End Date Tiffanie Mcgovern APRN, CNP PCP - General 10/14/17 07/14/19 [address] [place] [address] documented as of this encounter
--- OUTSIDE RECORDS SUMMARY | 2022-02-02 09:23 | XMS_ITS | Encounter Summary ---
:1970 Author Organization [facility] Address [address] [place] [address] Care Team Providers Name Role Phone Tiffanie Mcgovern APRN, KYLE Primary Care Provider [phone] Encounter Details Date Type Department Care Team Description 07/09/2018 Lab Robert Guerrero Screening for diabetes melli tus; [address] Pharyngitis, unspecified bailey ology; ERNESTO Ramirez [address] Influenza-like illness [phone] Social History Tobacco Use Types Packs/Day Years [...] A culture, throat (07/09/2018 4:00 PM CDT) [facility] [employer] Method Time Signature Throat Strep Negative for 07/11/2018 [place] A Culture Group A 6:37 AM CDT [facility] CENTER Strep at 48 LABORATORY hrs. Specimen Anatomical Collection Method Collection Time Receive d Time (Source) Location / / Volume Laterality 07/09/2018 4:00 PM 9 CDT 12:21 PM CDT Tiffanie Mcgovern APRN, CNP LAB MICROBIOLOGY - GENERA L ORDERABLES Performing Organization Address City/State/ZIP Code Phon e Number [facility] [address] [place] [id number] Rapid strep screen (07/09/2018 4:00 PM CDT) P athologist Signature Strep A Ag, NEGATIVE Negative 07/09/2018 [facility] [employer] Rapid 4:13 PM CDT [place] Specimen Anatomical Collection Method Collection Time Receive d Time (Source) Location / / Volume Laterality Swab (Throat 07/09/2018 4:00 PM 9 4:04 Swab) CDT PM CDT Tiffanie Mcgovern APRN, CNP LAB BODY FLUIDS AND STOOL S ORDERABLES Performing Organization Address City/[facility]/ZIP Code Phon e Number [facility] [employer] [address] [place] [address] Lyme Disease Serology (07/09/2018 3:56 PM CDT) [facility] [employer] Method Time Signature Lyme Disease Negative Negative 07/11/2018 [facility] Serology 12:29 PM CDT LABORATORIES Comment: No evidence of antibodies to B. burgdorf serenity detected. False negative results may occur in rece ntly infected patients (<=2 weeks) due to low or undet ectable antibody levels to B. burgdorferi. If recent expo sure is suspected, a second sample should be collected and tested in 2-4 weeks. Test Performed by: [facility] [address] [place] [address] Specimen Anatomical Collection Method Collection Time Receive d Time (Source) Location / / Volume Laterality Blood (Blood, 07/09/2018 3:56 PM 07/11/19 19 1:20 Venous) CDT PM CDT Tiffanie Mcgovern APRN, CNP LAB BLOOD ORDERABLES Performing Organization Address City/State/ZIP Code Phon e Number [id number] see result attachment for specific address (ABNORMAL) Manual Differential (after verif of auto) (07/09/2018 3:56 PM CDT) [facility] gist Method Time Signature Manual PERFORMED [...] 2.9 07/10/2018 [place] Absolute K/uL 1:27 PM [facility] Monocytes 0.5 0.3 - 0.9 07/10/2018 [place] Absolute K/uL 1:27 PM CDT [facility] Eosinophils 0.1 0.1 - 0.5 07/10/2018 [place] Absolute K/uL 1:27 PM CDT [facility] Basophils 0.0 0.0 - 0.1 07/10/2018 [place] Absolute K/uL 1:27 PM [facility] Slide Review PERFORMED 07/10/2018 [place] 1:30 PM [facility] RBC Morphology NORMAL 07/10/2018 [place] 1:30 PM [facility] PLT Morphology ADEQUATE 07/10/2018 [place] 1:30 PM [facility] Total Counted 100 07/10/2018 [place] 1:30 PM [facility] Specimen Anatomical Collection Method Collection Time Receive d Time (Source) Location / / Volume Laterality 07/09/2018 3:56 PM 9 CDT 12:04 PM CDT Tiffanie Mcgovern APRN, CNP LAB BLOOD ORDERABLES Performing Organization Address City/[facility]/ZIP Code Phon e Number [facility] [address] [place] [address] Fasting ? (07/09/2018 3:56 PM CDT) P athologist Signature Fasting? No 07/09/2018 4:07 [facility] PM CDT [place] Specimen Anatomical Collection Method Collection Time Receive d Time (Source) Location / / Volume Laterality 07/09/2018 3:56 PM 9 4:05 CDT PM CDT Tiffanie Mcgovern APRN, CNP LAB BLOOD ORDERABLES Performing Organization Address City/[facility]/ZIP Code Phon e Number [facility] [place] [address] [place] [address] HemoCue glucose (07/09/2018 3:56 PM CDT) P athologist Signature Glucose, Bld 98 70 - 100 07/09/2018 [facility] mg/dL 4:07 PM CDT [place] Comment: . Specimen Anatomical Collection Method Collection Time Receive d Time (Source) Location / / Volume Laterality 07/09/2018 3:56 PM 9 4:05 CDT PM CDT Tiffanie Mcgovern APRN, CNP LAB BLOOD ORDERABLES Performing Organization Address City/[facility]/ZIP Code Phon e Number [facility] [place] [address] [place] [address] (ABNORMAL) CBC Branch Off w/Diff (07/09/2018 3:56 PM CDT) [facility] Method Time Signature WBC 12.0 (H) 3.5 - 10.5 07/09/2018 [facility]ES K/uL 4:07 PM CDT [place] RBC 4.13 3.90 - 07/09/2018 [facility] JONES 5.00 M/uL 4:07 PM CDT [place] Hemoglobin 13.6 12.0 - 07/09/2018 [facility] 15.5 g/dL 4:07 PM CDT [place] Hematocrit 37.9 35.0 - 07/09/2018 [facility] JONES 44.0 % 4:07 PM CDT [place] Platelets 320 150 - 450 07/09/2018 [facility] K/uL 4:07 PM CDT [place] MCV 91.8 81.6 - 07/09/2018 [facility] J[facility]ES 98.3 fL 4:07 PM CDT [place] MCH 32.9 (H) 26.0 - 07/09/2018 [facility] JONES 32.0 pg 4:07 PM CDT [place] MCHC 35.9 32.0 - 07/09/2018 [facility] JONES 36.0 g/dL 4:07 PM CDT [place] RDW 12.3 11.9 - 07/09/2018 [facility] JONES 15.5 % 4:07 PM CDT [place] Lymphocytes % 12.6 (L) 18.0 - 07/09/2018 [facility] JONES 45.0 % 4:07 PM CDT [place] Mid-size Cells 7.4 3.3 - 10.1 07/09/2018 [facility] % 4:07 PM CDT [place] Granulocytes/Leslie 80.0 (H) 45.8 - 07/09/2018 [facility] J[facility]ES trophils 73.7 % 4:07 PM CDT [place] Lymphocytes 1.5 0.9 - 2.9 07/09/2018 [facility] Absolute K/uL 4:07 PM CDT [place] MIDS Absolute 0.9 (H) 0.2 - 0.8 07/09/2018 [facility] K/uL 4:07 PM CDT [place] Granulocytes/Leslie 9.6 (H) 2.1 - 8.7 07/09/2018 [facility] J[facility]ES trophils K/uL 4:07 PM CDT [place] Absolute Specimen Anatomical Collection Method Collection Time Receive d Time (Source) Location / / Volume Laterality Blood (Blood, 07/09/2018 3:56 PM 07/10/19 19 4:05 Venous) CDT PM CDT Tiffanie Mcgovern APRN, CNP LAB BLOOD ORDERABLES Performing Organization Address City/State/ZIP Code Phon e Number [facility] ROBERT GUERRERO [address] [place] [address] documented in this encounter Visit Diagnoses Diagnosis Screening for diabetes mellitus Pharyngitis, unspecified etiology Influenza-like illness documented in this encounter Care Teams Patient Relations Specialist Relationship Specialty Start Date End Date Tiffanie Mcgovern APRN, PRODUCT MARKETING COORDINATOR PCP - General 10/14/17 07/14/[address] [place] [address] [place] [address] documented as of this encounter
--- OUTSIDE RECORDS SUMMARY | 2022-02-02 09:23 | XMS_ITS | Encounter Summary ---
:1970 Author Organization [facility] Address [address] [place] [address] Care Team Providers Name Role Phone Tiffanie Mcgovern ASSOCIATE PROFESSOR OF ENGINEERING, SYSTEMS SUPPORT ENGINEER Primary Care Provider [phone] Reason for Visit Reason Comments Med Refill Encounter Details Date Type Department Care Team Description 12/04/2018 Refill Robert Guerrero Tiffanie Mcgovern, Hyperlipidemia, [address] ASSOCIATE PROFESSOR OF ENGINEERING, SYSTEMS SUPPORT ENGINEER unspecified ERNESTO Ramirez 550 [address] 100 [facility] hyperlipidemia type [phone] [place], [place] [address] Social History Tobacco Use [...] type documented in this encounter Care Teams Erisa Attorney Relationship Specialty Start Date End Date Tiffanie Mcgovern, ASSOCIATE PROFESSOR OF ENGINEERING, SYSTEMS SUPPORT ENGINEER PCP - General 10/14/17 07/14/19 100 [facility] [place]STO [place] [address] documented as of this encounter
--- OUTSIDE RECORDS SUMMARY | 2022-02-02 09:23 | XMS_ITS | Encounter Summary ---
:1970 Author Organization [facility] Address [address] [place] [address] Care Team Providers Name Role Phone Tiffanie Mcgovern MIXING PLANT OPERATOR, SENIOR ANDROID SOFTWARE ENGINEER Primary Care Provider [phone] Reason for Visit Reason Onset Date Comments [place] 05/18/2019 Encounter Details Date Type Department Care Team Description 05/18/2019 Telephone Tiffanie Acuna, [place] [address] MIXING PLANT OPERATOR, [place] ERNESTO [address] 100 [facility] [phone] [place], [place] [address] Social History Tobacco Use [...] documented as of this encounter Care Teams Concrete Inspector Relationship Specialty Start Date End Date Tiffanie Mcgovern APRN, SENIOR ANDROID SOFTWARE ENGINEER PCP - General 10/14/17 07/14/19 100 [facility] [place]ST[place] [address] documented as of this encounter
--- OUTSIDE RECORDS SUMMARY | 2022-02-02 09:23 | XMS_ITS | Encounter Summary ---
:1970 Author Organization [facility] Address [address] [place] [address] Care Team Providers Name Role Phone Tiffanie Mcgovern APRN, CNP Primary Care Provider [phone] Reason for Visit Reason Comments Muscle Pain Sore Throat Encounter Details Date Type Department Care Team Description 07/09/2018 [facility] Pharyngitis, unspecified bailey ology (Primary Dx); [address] M, ALVERTO, KYLE Screening for diabetes mellitus; ERNESTO Ramirez [address] Influenza-like illness [address] [place] [address] Social History Tobacco Use Types Packs/Day Years [...] this plan of care. Tiffanie Mcgovern APRN, FRONT DESK LEAD documented in this encounter Plan of Treatment Not on filedocumented as of this encounter Results Rapid strep screen (07/09/2018 4:00 PM CDT) P athologist Signature Strep A Ag, NEGATIVE Negative 07/09/2018 [facility]ON[facility] Rapid 4:13 PM CDT [place] Specimen Anatomical Collection Method Collection Time Receive d Time (Source) Location / / Volume Laterality Swab (Throat 07/09/2018 4:00 PM 9 4:04 Swab) CDT PM CDT Tiffanie Mcgovern APRN, CNP LAB BODY FLUIDS AND STOOL S ORDERABLES Performing Organization Address [facility]/ZIP Code Phon e Number [facility] [place] [address] [place] [address] Lyme Disease Serology (07/09/2018 3:56 PM CDT) [facility] Method Time Signature Lyme Disease Negative Negative 07/11/2018 [facility] Serology 12:29 PM CDT LABORATORIES Comment: No evidence of antibodies to B. burgdorf serenity detected. False negative results may occur in rece ntly infected patients (<=2 weeks) due to low or undet ectable antibody levels to B. burgdorferi. If recent expo sure is suspected, a second sample should be collected and tested in 2-4 weeks. Test [facility]: [facility] [address] [place] [address] Specimen Anatomical Collection Method Collection Time Receive d Time (Source) Location / / Volume Laterality Blood (Blood, 07/09/2018 3:56 PM 07/11/19 19 1:20 Venous) CDT PM CDT Tiffanie Mcgovern APRN, CNP LAB BLOOD ORDERABLES Performing Organization Address [facility]/ZIP Code Phon e Number [facility] LABORATORIES [facility] see result attachment for specific address (ABNORMAL) CBC Branch Off w/Diff (07/09/2018 3:56 PM CDT) [facility] Method Time Signature WBC 12.0 (H) 3.5 - 10.5 07/09/2018 [facility] JONES K/uL 4:07 PM CDT [place] RBC 4.13 3.90 - 07/09/2018 [facility] JONES 5.00 M/uL 4:07 PM CDT [place] Hemoglobin 13.6 12.0 - 07/09/2018 [facility] JONES 15.5 g/dL 4:07 PM CDT [place] Hematocrit 37.9 35.0 - 07/09/2018 [facility] JONES 44.0 % 4:07 PM CDT [place] Platelets 320 150 - 450 07/09/2018 [facility] JONES K/uL 4:07 PM CDT [place] MCV 91.8 81.6 - 07/09/2018 [facility] JONES 98.3 fL 4:07 PM CDT [place] MCH 32.9 (H) 26.0 - 07/09/2018 [facility] JONES 32.0 pg 4:07 PM CDT [place] MCHC 35.9 32.0 - 07/09/2018 [facility] JONES 36.0 g/dL 4:07 PM CDT [place] RDW 12.3 11.9 - 07/09/2018 [facility] JONES 15.5 % 4:07 PM CDT [place] Lymphocytes % 12.6 (L) 18.0 - 07/09/2018 [facility] JONES 45.0 % 4:07 PM CDT [place] Mid-size Cells 7.4 3.3 - 10.1 07/09/2018 [facility] JONES % 4:07 PM CDT [place] Granulocytes/Leslie 80.0 (H) 45.8 - 07/09/2018 [facility] JONES trophils 73.7 % 4:07 PM CDT [place] Lymphocytes 1.5 0.9 - 2.9 07/09/2018 [facility] J[place] Absolute K/uL 4:07 PM CDT [place] MIDS Absolute 0.9 (H) 0.2 - 0.8 07/09/2018 [facility] JONES K/uL 4:07 PM CDT [place] Granulocytes/Leslie 9.6 (H) 2.1 - 8.7 07/09/2018 [facility] JONES trophils K/uL 4:07 PM CDT [place] Absolute Specimen Anatomical Collection Method Collection Time Receive d Time (Source) Location / / Volume Laterality Blood (Blood, 07/09/2018 3:56 PM 07/10/19 19 4:05 Venous) CDT PM CDT Tiffanie Mcgovern APRN, KYLE LAB BLOOD ORDERABLES Performing Organization Address City/State/ZIP Code Phon e Number [facility] [place] [address] [place] [address] documented in this encounter Visit Diagnoses Diagnosis Pharyngitis, unspecified etiology - Prim yareli Screening for diabetes mellitus Influenza-like illness documented in this encounter Care Teams Swatcher Relationship Specialty Start Date End Date Tiffanie Mcgovern APRN, FRONT DESK LEAD PCP - General 10/14/17 07/14/19 100 [facility] [place]STO [place] [address] documented as of this encounter
--- OUTSIDE RECORDS SUMMARY | 2022-02-02 09:23 | XMS_ITS | Encounter Summary ---
:1970 Author Organization [facility] Address [address] [place] [address] Care Team Providers Name Role Phone Tiffanie Mcgovern GLASS ENGRAVER, GENERAL EDUCATION PROFESSOR Primary Care Provider [phone] Reason for Visit Reason Comments Med Refill Encounter Details Date Type Department Care Team Description 03/06/2019 Refill Robert Guerrero Tiffanie Mcgovern, Hyperlipidemia, [address] GLASS ENGRAVER, GENERAL EDUCATION PROFESSOR unspecified ERNESTO Ramirez [address] 100 [facility] hyperlipidemia type [phone] [place], [place] [address] Social History Tobacco Use [...] 82 Fasting? Yes No future labs pending L INSPECTOR MOVEMENT ASSEMBLY documented in this encounter Plan of Treatment Not on filedocumented as of this encounter Visit Diagnoses Diagnosis Hyperlipidemia, unspecified hyperlipidem ia type documented in this encounter Care Teams Cad Design Engineer Relationship Specialty Start Date End Date Tiffanie Mcgovern APRN, GENERAL EDUCATION PROFESSOR PCP - General 10/14/17 07/14/19 100 [facility] ERNESTO [place] [address] documented as of this encounter
--- OUTSIDE RECORDS SUMMARY | 2022-02-02 09:23 | XMS_ITS | Encounter Summary ---
:1970 Author Organization [facility] Address [address] [place] [address] Care Team Providers Name Role Phone Tiffanie Mcgovern APRN, CNP Primary Care Provider [phone] Encounter Details Date Type Department Care Team Description 11/29/2017 Orders Only Robert Guerrero Tiffanie Mcgovern, Diarrhea, unspecified [address] KYLE DEL TORO type (Primary Dx) ERNESTO Ramirez 100 [facility] [address] [place] [address] Social History Tobacco Use Types Packs/Day Years [...] Primary documented in this encounter Care Teams Pollution Control Engineer Relationship Specialty Start Date End Date Tiffanie Mcgovern APRN, CNP PCP - General 10/14/17 07/14/19 [address] [place] [address] documented as of this encounter
--- OUTSIDE RECORDS SUMMARY | 2022-02-02 09:23 | XMS_ITS | Encounter Summary ---
:1970 Author Organization [facility] Address [address] [place] [address] Care Team Providers Name Role Phone Tiffanie [...] on filedocumented in this encounter Care Teams Cage Fighter Relationship Specialty Start Date End Date Tiffanie Mcgovern APRN, BACTERIOLOGY TECHNICIAN PCP - General 10/14/17 07/14/19 100 [facility] ERNESTO [place] [address] documented as of this encounter
--- OUTSIDE RECORDS SUMMARY | 2022-02-02 09:23 | XMS_ITS | Encounter Summary ---
:1970 Author Organization [facility] Address [address] [place] [address] Care Team Providers Name Role Phone Tiffanie Mcgovern APRN, KYLE Primary Care Provider [phone] Encounter Details Date Type Department Care Team Description 05/17/2019 Lab Robert Guerrero SOB (shortness of breath); [address] Cough; Robert Guerrero ERNESTO [address] Chills; [phone] Fever, unspecif ied fever cause; Body aches [...] Branch Off w/Diff (05/17/2019 11:58 AM CDT) [facility] gist Method Time Signature WBC 5.1 3.5 - 10.5 05/17/2019 [facility] K/uL 12:05 PM CDT [place] RBC 4.19 3.90 - 05/17/2019 [facility] 5.00 M/uL 12:05 PM CDT [place] Hemoglobin 13.1 12.0 - 05/17/2019 [facility] 15.5 g/dL 12:05 PM CDT [place] Hematocrit 36.9 35.0 - 05/17/2019 [facility] 44.0 % 12:05 PM CDT [place] Platelets 276 150 - 450 05/17/2019 [facility] JONES K/uL 12:05 PM CDT [place] MCV 88.1 81.6 - 05/17/2019 [facility] 98.3 fL 12:05 PM CDT [place] MCH 31.3 26.0 - 05/17/2019 [facility] 32.0 pg 12:05 PM CDT [place] MCHC 35.5 32.0 - 05/17/2019 [facility] 36.0 g/dL 12:05 PM CDT [place] RDW 12.1 11.9 - 05/17/2019 [facility] 15.5 % 12:05 PM CDT [place] Lymphocytes % 25.9 18.0 - 05/17/2019 [facility] 45.0 % 12:05 PM CDT [place] Mid-size Cells 11.1 (H) 3.3 - 10.1 05/17/2019 [facility] % 12:05 PM CDT [place] Granulocytes/Leslie 63.0 45.8 - 05/17/2019 [facility] JONES trophils 73.7 % 12:05 PM CDT [place] Lymphocytes 1.3 0.9 - 2.9 05/17/2019 [facility] Absolute K/uL 12:05 PM CDT [place] MIDS Absolute 0.6 0.2 - 0.8 05/17/2019 [facility] K/uL 12:05 PM CDT [place] Granulocytes/Leslie 3.2 2.1 - 8.7 05/17/2019 [facility] JONES trophils K/uL 12:05 PM CDT [place] Absolute Specimen Anatomical Collection Method Collection Time Receive d Time (Source) Location / / Volume Laterality 05/17/2019 11:58 05/17/2019 AM CDT 12:02 PM CDT Roopa Lopez MD LAB BLOOD ORDERABLES Performing Organization Address City/[facility]/ZIP Code Phon e Number [facility] ROBERT GUERRERO [address] [place] [address] Rapid influenza A/B antigens (05/17/2019 11:35 AM CDT) athologist Signature Rapid NEGATIVE Negative 05/17/2019 [facility] ROBERT Influenza A 12:03 PM CDT [place] Rapid NEGATIVE Negative 05/17/2019 [facility] JONES Influenza B 12:03 PM CDT [place] Comment: A negative test is presumptive and does not exclude influenza virus infection. Specimen Anatomical Collection Method Collection Time Receive d Time (Source) Location / / Volume Laterality Swab 05/17/2019 11:35 05/17/2019 (Nasopharynx) AM CDT 11:46 AM CDT Roopa Lopez MD LAB BODY FLUIDS AND STOOLS O RDERABLES Performing Organization Address City/[facility]/ZIP Code Phon e Number [facility] ROBERT GUERRERO [address] [place] [address] documented in this encounter Visit Diagnoses Diagnosis SOB (shortness of breath) Shortness of breath Cough Chills Chills (without fever) Fever, unspecified fever cause Body aches Generalized pain documented in this encounter Care Teams Internal Affairs Investigator Relationship Specialty Start Date End Date Tiffanie Mcgovern, MARKET RESEARCHER, INVENTORY CLERK PCP - General 10/14/17 07/14/19 100 [facility] [place]STO [place] [address] documented as of this encounter
--- OUTSIDE RECORDS SUMMARY | 2022-02-02 09:23 | XMS_ITS | Encounter Summary ---
:1970 Author Organization [facility] Address [address] [place] [address] Care Team Providers Name Role Phone Tiffanie Mcgovern APRN, KYLE Primary Care Provider [phone] Reason for Visit Reason Comments Sinusitis Encounter Details Date Type Department Care Team Description 01/29/2019 Office Visit Tiffanie Acuna Acute sinusitis, [address] M, REAL ESTATE DEVELOPER, SUPERVISOR ENGRAVING recurrence not ERNESTO Ramirez [address] specified, [address] [place] [address] unspecified location [phone] (Primary Dx) Social History Tobacco Use Types [...] Comments Blood Pressure 114/74 01/29/2019 9:34 AM LICENSED MASS REAL ESTATE APPRAISER Pulse 76 01/29/2019 9:34 AM LICENSED MASS REAL ESTATE APPRAISER Temperature 36.2 ??C (97.1 ??F) 01/29/2019 9:34 AM LICENSED MASS REAL ESTATE APPRAISER Respiratory Rate 18 01/29/2019 9:34 AM LICENSED MASS REAL ESTATE APPRAISER Oxygen Saturation 95% 01/29/2019 9:34 AM LICENSED MASS REAL ESTATE APPRAISER Inhaled Oxygen Concentration - - Weight 88.4 kg (194 lb 14.2 oz) 01/29/2019 9:34 AM LICENSED MASS REAL ESTATE APPRAISER Height 175 cm (5' 8.9) 01/29/2019 9:34 AM LICENSED MASS REAL ESTATE APPRAISER Body Mass Index 28.87 01/29/2019 9:34 AM LICENSED MASS REAL ESTATE APPRAISER documented in this encounter Patient Instructions Patient InstructionsChpatel Mcgovern APRN, CNP - 01/29/2019 9:40 AM LICENSED MASS REAL ESTATE APPRAISER Take antibiotic as directed NSED MASS REAL ESTATE APPRAISER documented in this encounter Progress Notes Tiffanie [...] plan of care. Tiffanie Mcgovern APRN, KYLE NSED MASS REAL ESTATE APPRAISER documented in this encounter Plan of Treatment Not on filedocumented as of this encounter Visit Diagnoses Diagnosis Acute sinusitis, recurrence not specifie d, unspecified location - Primary documented in this encounter Care Teams Telephony Engineer Relationship Specialty Start Date End Date Tiffanie Mcgovern APRN, SUPERVISOR ENGRAVING PCP - General 10/14/17 07/14/19 100 [place] [address] documented as of this encounter
--- OUTSIDE RECORDS SUMMARY | 2022-02-02 09:25 | XMS_ITS | Clinical Summary ---
:1970 Author Organization [facility] Address [address] [place] [address] Care Team Providers Name Role Phone Elsewhere, Pcp Primary Care Provider Unavailable Source Comments Patient records contain information from all sites at [facility]. For routine questions regarding patient records, call [phone] during business hours, M-F 8:00 AM - 5:00 PM Central Time. Record requests for emergency care only can be directed to [phone] at any time.[facility] Allergies Active Allergy Reactions Severity Noted Date [...] More than 4 times per year 06/22/2019 mandaen services? Do you belong to any clubs [...] Effective Dates Phone Address Type / Group [facility] [place] [id number] 2020-Prese [phone] [address] [address] PPO BLUE SHIELD [address] [place] [address] Care Teams Hand Knitter Relationship Specialty Start Date End Date Elsewhere, Pcp PCP - General Internal Medicine 06/18/21
--- OUTSIDE RECORDS SUMMARY | 2022-02-02 09:25 | XMS_ITS | Encounter Summary ---
:1970 Author Organization [facility] Address [address] [place] [address] Care Team Providers Name Role Phone Elsewhere, Pcp Primary Care Provider Unavailable Reason for Referral Outpatient (Routine) - Closed Specialty Diagnoses / Procedures Referred By Contact Refer red To Contact Diagnoses Pain Leg Right Remberto Prasad, C.N.P. [facility] [place] Region Procedures US Lower Extremity Veins Right [address] [place] [address] Referral ID Status Reason Start Date Expiration Date Visits Requ ested Visits Authorized [id number] Closed 06/18/2021 06/18/2022 1 1 Reason for Visit Outpatient (Routine) - Closed Specialty Diagnoses / Procedures Referred By Contact Refer red To Contact Diagnoses Pain Leg Right Remberto Prasad, C.N.P. [facility] [place] Procedures US Lower Extremity Veins Right [address] [place] [address] Referral ID Status Reason Start Date Expiration Date Visits Requ ested Visits Authorized [id number] Closed 06/18/2021 06/18/2022 1 1 Encounter Details Date Type Department Care Team Description 06/18/2021 Hospital Encounter Department of Radiology Remberto Prasad , Pain Leg Right in [place], Titus angel C.N.P. [address] [facility] [address] [place] [address] [place], [place] [phone] Social History Tobacco Use Types Packs/Day Years [...] or relatives? How often do you attend temple or More than 4 times per year 06/22/2019 anglican services? Do you belong to any clubs or No 06/22/2019 organizations such as temple groups, unions, fraternal or athletic groups, or [...] the highest level of school Associate degree: [employer] program 06/22/2019 you have completed or the [...] man agement can be found on the [facility] site. Link [email or web address]/clinical-answers/[email or web address]/cpm-[email or web address] 64833 Procedure Note Grey Stratton M.D. - 06/18/2021Formatt [...] man agement can be found on the [facility] site. Link [email or web address]/topic/clinical-answers/[email or web address]/cpm-[email or web address] 98814 IMPRESSION: Negative for acute DVT. Remberto LOPEZ US PROCEDURES documented in this encounter Visit Diagnoses Diagnosis Pain Leg Right documented in this encounter Additional Health Concerns Assessment Noted Time PHQ-9 Depression Total Score: 3 09/15/2015 2:08 PM CDT documented as of this encounter Care Teams Director Of Marketing Analytics Relationship Specialty Start Date End Date Elsewhere, Pcp PCP - General Internal Medicine 06/18/21 documented as of this encounter
--- OUTSIDE RECORDS SUMMARY | 2022-02-02 09:25 | XMS_ITS | Encounter Summary ---
:1970 Author Organization [facility] Address [address] [place] [address] Care Team Providers Name Role Phone Elsewhere, Pcp Primary Care Provider Unavailable Encounter Details Date Type Department Care Team Description 01/19/2021 Orders Only RST PCP TH Lili Tobar M.D. [address] [place], [place] [phone] (Wo rk) Social History [...] or relatives? How often do you attend pentecostalism or More than 4 times per year 06/22/2019 temple services? Do you belong to any clubs or No 06/22/2019 organizations such as pentecostalism groups, unions, fraternal or athletic groups, or [...] highest level of school Associate degree: academ [employer] program 06/22/2019 you have completed or the [...] documented as of this encounter Care Teams Rest Room Attendant Relationship Specialty Start Date End Date Elsewhere, Pcp PCP - General Internal Medicine 06/08/19 06/15/21 documented as of this encounter
--- OUTSIDE RECORDS SUMMARY | 2022-02-02 09:25 | XMS_ITS | Encounter Summary ---
:1970 Author Organization [facility] Address [address] [place] [address] Care Team Providers Name Role Phone Elsewhere, Pcp Primary Care Provider Unavailable Reason for Referral Outpatient (Routine) - Closed Specialty Diagnoses / Procedures Referred By Contact Refer red To Contact Diagnoses Pain Leg Right Remberto Prasad, C.N.P. [facility] Region Procedures US Lower Extremity Veins Right [address] [place] [address] Referral ID Status Reason Start Date Expiration Date Visits Requ ested Visits Authorized [id number] Closed 06/18/2021 06/18/2022 1 1 Reason for Visit Reason Comments Leg Pain Pt presents to ED with right leg pain that started 06/14/21. Pt reports pain behind right knee and into r ight calf. Encounter Details Date Type Department Care Team Description 06/18/2021 Emergency [facility] [place] [facility] Remberto Prasad Pain Leg Right (Primary Department C.N.P. Dx) [id number] [place] [phone] Social History Tobacco Use Types Packs/Day Years [...] the highest level of school Associate degree: [employer] program 06/22/2019 you have completed or the [...] of this encounter ED Notes Remberto Prasad C.NMaryann. - 06/18/2021 10:22 AM CDT Images from [...] man agement can be found on the [facility] site. Link [email or web address]/topic/clinical-answers/[email or web address]/cpm-[email or web address] 99309 Procedure Note Grey Stratton M.D. - 06/18/2021Formatt [...] man agement can be found on the [facility] site. Link [email or web address]://[employer]ffiti.[email or web address]/topic/clinical-answers/[email or web address]/cpm-[email or web address] 94411 IMPRESSION: Negative for acute DVT. Remberto Prasad C.N.P. IMG US PROCEDURES Prothrombin Time (PT) (06/18/2021 [...] C.N.P. LAB BLOOD ADD-ON Performing Organization Address City/State/ZIP Code Phon e Number [facility] [address] [place] [address] [place] [address] System in [address] Comprehensive Metabolic Panel (06/18/2021 10:34 AM [...] CDT eGFR-Black/Afric >90 >=60 06/18/2021 CNFL an Yemeni mL/min/BSA 11:03 AM CDT Comment: ----ADDITIONAL INFORMATION---- [...] AM CDT 10:36 AM CDT Remberto Prasad CSonjaN.P. LAB BLOOD ADD-ON Performing Organization Address City/State/[facility] Code Phon e Number [facility] [address] [place] [address] [place] [address] System [address] CBC without Differential (06/18/2021 10:34 AM [...] C.N.P. LAB BLOOD ADD-ON Performing Organization Address [facility] Phon e Number [facility] [address] [place] [address] [place] [address] System [address] (ABNORMAL) D-Dimer (06/18/2021 10:34 AM CDT) [...] C.N.P. LAB BLOOD ADD-ON Performing Organization Address City/[facility] Phon e Number [facility] [address] [place] [address] [place] [address] System [address] documented in this encounter Visit Diagnoses [...] documented as of this encounter Care Teams Biology Laboratory Assistant Relationship Specialty Start Date End Date Elsewhere, Pcp PCP - General Internal Medicine 06/18/21 documented as of this encounter
--- OUTSIDE RECORDS SUMMARY | 2022-02-02 09:26 | XMS_ITS | Encounter Summary ---
:1970 Author Organization [facility] Address [address] [place] [address] Care Team Providers Name Role Phone Elsewhere, Pcp Primary Care Provider Unavailable Reason for Referral Outpatient (Routine) - Closed Specialty Diagnoses / Referred By Contact Referred To Contact Procedures Cardiovascular Diseases / Diagnoses Pain Chest Atypical Mahamed Campos [facility] Cardiovascular Disease MJuancarlos [address] [place] [address] Referral ID Status Reason Start Date Expiration Date Visits Requ ested Visits Authorized [id number] Closed 06/10/2019 06/09/2020 1 1 Encounter Details Date Type Department Care Team Description 06/10/2019 Orders Only Department of Mahamed Campos Pain Chest Atypical Cardiovascular Diseases Janene Up (Primary Dx) in [facility] [address] [facility] [address] [place] [phone] Social History Tobacco Use Types Packs/Day Years [...] or relatives? How often do you attend presybeterian or More than 4 times per year 06/22/2019 sikh services? Do you belong to any clubs or No 06/22/2019 organizations such as presybeterian groups, unions, fraDrimki or athletic groups, or school groups? How [...] documented as of this encounter Care Teams Agricultural Research Engineer Relationship Specialty Start Date End Date Elsewhere, Pcp PCP - General Internal Medicine 06/08/19 06/15/21 documented as of this encounter
--- OUTSIDE RECORDS SUMMARY | 2022-02-02 09:26 | XMS_ITS | Encounter Summary ---
:1970 Author Organization [facility] Address [address] [place] [address] Care Team Providers Name Role Phone Elsewhere, Pcp Primary Care Provider Unavailable Reason for Visit Outpatient (Routine) - Closed Specialty Diagnoses / Referred By Contact Referred To Contact Procedures Cardiovascular Diseases / Diagnoses Pain Chest Atypical Mahamed Campos, [facility] Cardiovascular Disease M.D. [address] [place] [address] Referral ID Status Reason Start Date Expiration Date Visits Requ ested Visits Authorized [id number] Closed 06/10/2019 06/09/2020 1 1 Encounter Details Date Type Department Care Team Description 06/24/2019 Virtual Visit Department of Ashlie Jacobs Pain Chest Atypical; Cardiovascular Medicine Janene Maldonado Angina Prinzmetal (HCC) in [facility] [address] [facility] [address] [place], [place] [phone] Social History Tobacco Use Types Packs/Day Years [...] highest level of school Associate degree: academ [employer] program 06/22/2019 you have completed or the highest degree you have received? Sex Assigned at Date Recorded Not on file documented as of this encounter Consult Notes Ashlie Jacobs M.D. - 06/24/2019 9:45 AM CDT YKA-HUXE-DL-FACE PHONE VISIT A phone call care discussion in the setting of the national COVID19 pandemic was completed consistent with [facility] institutional direction. This visit was peformed by [...] of the COVID-19 pandemic resulting in her lalc-uv-kwfj appointment being rescheduled. 2010: She reportedly had [...] been intolerant of nitrates due to headaches. 2015: Given symptoms of dyspnea and neck tightness, [...] documented as of this encounter Care Teams Founder President And Ceo Relationship Specialty Start Date End Date Elsewhere, Pcp PCP - General Internal Medicine 06/08/19 06/15/21 documented as of this encounter
--- OUTSIDE RECORDS SUMMARY | 2022-02-02 09:26 | XMS_ITS | Encounter Summary ---
:1970 Author Organization [facility] Address [address] [place] [address] Care Team Providers Name Role Phone Unavailable Primary Care Provider Unavailable Encounter Details Date Type Department Care Team Description 09/14/2016 Hospital Encounter HX [facility] ME Angel Abarca M.D., Ph.D. [address] [place] [address] ERNESTO Ramirez [phone] (Wo rk) Social History [...] (Rx) OV Est Pt Level 3 - 66926 - 15 min Rapid Strep Confirmation Electronically Signed By: ALEXA ABARCA MD On: 09/14/2016 11:48 AM Source: [facility] POWERCHART Document Id: [id number] documented in this encounter Miscellaneous Notes Miscellaneous - Alexa Abarca M.D. - 09/14/2016 11:41 AM CDT Ambulatory Patient Summary [address] [id number] Visit Information Name: GERMAN NOVAK [facility] Number: [id number] Current Date: 09/14/2016 11:41:20 Physicians Attending Provider: ALEXA ABARCA MD Primary Care Provider: PCP, ELSEWHERE IVÁN NOVAKFloyd STEINER has been given the following list [...] vasospasm Mrs. Novak was transferred from the [place] emergency department where he initial troponin was 0.06, and a CK-MB was 5.9. [facility]. She was transferred to [facility] for evaluation of her elevation in her cardiac serial biomarkers. Due to her associated symptoms of headache and shortness of breath with the chest pain, a head CT was obtained upon arrival to [facility] and did not reveal any abnormalities. [...] if you dont have one. Go to [email or web address] and click on Create Your Account. Then, follow the directions to complete the online form. Youll be asked for your [facility] number which you can find at the top of this document. Your Goals/Additional instructions: Source: [facility] CodelearnCHART Document Id: [id number] A ELENA Boateng - Alexa Abarca M.D. 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 Intake/History Entered On: 09/14/2016 10:22 CDT Performed [...] Mass Index : 28.57 kg/m2 LORI MACIEL [facility] - 09/14/2016 10:19 CDT General Info Languages : Gambian Is Patient Female and 13-50 no hysterectomy : No LORI MACIEL LPN - 09/14/2016 10:19 CDT Subjective Pain Symptoms : Yes LORI MACIEL PRACTICAL NURSING INSTRUCTOR - 09/14/2016 10:19 CDT Pain Scale Pain [...] MACIEL LPN - 09/14/2016 10:19 CDT Source: [facility] POWERCHART Document Id: [id number] CDT!45 documented in this encounter Plan of [...] Strep A Screen (09/14/2016 10:29 AM CDT) [facility] [employer] Method Time Signature HXRapid Strep POWERCHART Confirmation [...] Strep A Screen (09/14/2016 10:29 AM CDT) [facility] [employer] Method Time Signature HXStrep A POWERCHART Screen [...]
--- OUTSIDE RECORDS SUMMARY | 2022-02-02 09:26 | XMS_ITS | Encounter Summary ---
:1970 Author Organization [facility] Address [address] [place] [address] Care Team Providers Name Role Phone Elsewhere, Pcp Primary Care Provider Unavailable Reason for Referral Specialty Diagnoses / Procedures Referred By Contact Refer red To Contact Lili Brown M.D. 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 [address] [place], [place] [phone] (Wo rk) Social History [...] More than 4 times per year 06/22/2019 baptist services? Do you belong to any clubs or No 06/22/2019 organizations such as latter-day groups, unions, fraExternautics or athletic groups, or school groups? How [...] highest level of school Associate degree: academ writewith program 06/22/2019 you have completed or the [...] documented as of this encounter Care Teams Chief Legal Officer Relationship Specialty Start Date End Date Elsewhere, Pcp PCP - General Internal Medicine 06/08/19 06/15/21 documented as of this encounter
--- OUTSIDE RECORDS SUMMARY | 2022-02-02 09:26 | XMS_ITS | Encounter Summary ---
:1970 Author Organization [facility] Address [address] [place] [address] Care Team Providers Name Role Phone Elsewhere, Pcp Primary Care Provider Unavailable Encounter Details Date Type Department Care Team Description 06/08/2019 Nurse Triage Department of [facility] Rosario Tijerina, Medicine, [facility], C.N.P., A.P.N.P. 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
--- OUTSIDE RECORDS SUMMARY | 2022-02-02 09:26 | XMS_ITS | Encounter Summary ---
:1970 Author Organization [facility] Address [address] [place] [address] Care Team Providers Name Role Phone Unavailable Primary Care Provider Unavailable Encounter Details Date Type Department Care Team Description 09/14/2015 Hospital Encounter HX [facility] ED Jayne Lopez M.D. [address] [place], [place] [phone] (Wo rk) Social History [...] More than 4 times per year 06/22/2019 catholic services? Do you belong to any [...] PM CDT ED Depart Summary [facility] Emergency Department Clinical Discharge Summary PERSON INFORMATION Name GERMAN NOVAK Age 45 Years 1970 12:00 AM Sex Female Language Cameroonian PCP PCP, ELSEWHERE Marital Status Visit Id Visit Reason Chest pain; rule out heart attack Specialty Enc Type Emergency Med Service Emergency Medicine Referred by [facility] ED Discharge 09/14/2015 1:05 PM Tracking Id [id number] Checkout 09/14/2015 1:05 PM Checkin 09/14/2015 10:07 AM Acuity 2 -Emergent Dispo Type Disch/Trans ShortTerm Gen Hosp-Inpt Care Arrival 09/14/2015 10:07 AM Reg Status LOS 000 02:58 Address: [address] [place] [address] [place] [phone] Comment: PROVIDER INFORMATION Provider Role Provider Contact Time CLARENCE LOPEZ MD ED Provider 09/14/15 10:09 VALARIE CENTENO FICTION AND NONFICTION WRITER PROSE Nurse 09/14/15 10:55 DIAGNOSIS Comment: PATIENT EDUCATION INFORMATION Instructions: Follow up: Source: [facility] [employer] Think Document Id: [id number] Valarie Centeno R.N. - 09/14/2015 1:14 PM CDT ED Discharge Instructions [address] [address] Name: GERMAN NOVAK Date of : 1970 12:00 AM Visit Date: 09/14/2015 10:07 AM [facility] Number: [id number] Address: [address] [place] [address] [place] [phone] Primary Care Provider: PCP, ELSEWHERE IMPORTANT: [facility] in [place] would like to thank you for allowing [...] if you dont have one. Go to [email or web address] and click on Create Your Account. Then, follow the directions to complete the online form. Youll be asked for your [facility] number which you can find at the [...] nurse or physician. Patient Signature or Responsible Alliance Party/Relationship Date Time Provider Signature Date Time [...] nurse or physician. Patient Signature or Responsible Alliance Party/Relationship Date Time Provider Signature Date Time Source: [facility] POWERCHART Document Id: [id number] documented in this encounter Medications at Time [...] CENTENO RN - 09/14/2015 13:10 CDT [facility] Document Id: [id number] CDT!16 Valarie Centeno R.N. - 09/14/2015 1:10 PM CDT ED Treatments and Procedures ED Treatments and Procedures Entered On: 09/14/2015 13:11 CDT Performed On: 09/14/2015 13:10 CDT by VALARIE CENTENO RN Cardiac Monitoring Monitoring Lead : II Monitoring Lead Corporate Quality Manager : Discontinued Cardiac Rhythm Tech : Sinus [...] CENTENO RN - 09/14/2015 13:10 CDT Source: [employer] Document Id: [id number] CDT!13 Valarie Centeno R.N. - 09/14/2015 1:09 PM CDT ED Disposition Summary ED Disposition Summary Entered On: 09/14/2015 13:10 CDT Performed On: 09/14/2015 13:09 CDT by VALARIE CENTENO FICTION AND NONFICTION WRITER PROSE Disposition Summary Present in Room During Exam/Procedure : EMS Mode of Discharge : Stretcher Transportation : Ground ambulance Nurse Receiving Report : FLORENCIO Briseno RN- Erwin Ed Referral Date/Time Nurse Received Report : 09/14/2015 13:05 CDT Transporter : EMT, Milieu Manager Discharge From ED With : [employer] Printed Discharge Instructions Given to Patient : No Reason Discharge Instructions Not Given : Transfer SMR-Cardiology Patient Status at Discharge from ED : Improved VALARIE CENTENO RN - 09/14/2015 13:09 CDT Source: [employer] Document Id: [id number] CDT!12 Valarie Centeno R.N. - 09/14/2015 12:16 PM CDT ED Nurse Reassess ED Nurse Reassess Entered On: 09/14/2015 12:17 CDT Performed On: 09/14/2015 12:16 CDT by MIGUELINADALTONDAMIAN Gutierrez RN Pain Assessment Pain Symptoms : Yes VALARIE CENTENO RN - 09/14/2015 12:16 CDT Pain Scale Pain Scale Verbal 0-10 : Open VALARIE CENTENO RN - 09/14/2015 12:16 CDT Pain Pain Assessment Grid Pain 1 Pain 2 Pain 3 Location : Chest Abdomen Head Intensity : 0 0 (Comment: squeeze sensation [VALARIE CENTENO Brenda RN - 09/14/2015 12:16 CDT] ) 0 [...] arm numbness/tingling Gait : Steady VALARIE CENTENO RN - 09/14/2015 12:16 CDT Atherton Coma Eye Opening Response [place] : Spontaneously Best Verbal Response [place] : Oriented Best Motor Response Maame : Obeys simple commands [place]ther[place] Coma Score : 15 VALARIE CENTENO RN - 09/14/2015 12:16 CDT GI Reassess GI Patient Stated Symptoms : Abdominal pain VALARIE CENTENO RN - 09/14/2015 12:16 CDT /OB Reassess Patient Stated Symptoms : None VALARIE CENTENO RN - 09/14/2015 12:16 CDT Integumentary Integumentary Patient Stated Symptoms : None VALARIE CENTENO GILES - 09/14/2015 12:16 CDT Source: [facility] POWERCHART Document Id: [id number] CDT!40 Valarie Centeno R.N. - 09/14/2015 10:44 AM CDT ED Primary Assessment Document Has Been Updated ED Primary Assessment Entered On: 09/14/2015 10:48 CDT Performed On: 09/14/2015 10:44 CDT by VALARIE CENTENO RN Reason For Visit (As Of: 09/14/2015 10:48:05 CDT) Problems(Active) Common migraine (SNOMED CT :05558108 ) Name of Problem: Common migraine ; Onset Date: Unknown ; Recorder: NELLIE JOHNSON RN; Confirmation: Confirmed ; Classification: Nursing ; Code: 76960864 ; Contributor System: TeamVisibility ; Last Updated: 06/19/2010 11:18 CDT ; Life Cycle Status: Active ; Vocabulary:SNMy Health Direct CT Echocardiogram abnormal (SNOMED CT :643299594 ) Name of Problem: Echocardiogram abnormal ; Onset Date: 06/20/2010 ; Recorder: JUVE CHRISTIANSEN DNP, FNP; Confirmation: Confirmed ; Classification: Medical ; Code: 899092472 ; Contributor System: TeamVisibility ; Last Updated: 07/28/2013 8:54 CDT ; [...] History of - myocardial infarction (SNOMED CT :6568680450 ) Name of Problem: History of - myocardialinfarction ; Onset Date: 06/18/2010 ; Recorder: NICKY HUMPHREYS MD; Confirmation: Confirmed ; Classification: Medical ; Code: 7728014038 ; Contributor System: PowerChart ; Last Updated: 03/11/2013 14:45 ROVING WINDER ; 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 ; Life Cycle Status: Active ; Responsible Provider: NICKY MONTIEL MD; Vocabulary: SNOMED CT ; Comments: 04/24/2012 9:39 - NICKY MONTIEL MD NSTEMI 06/201003/11/2013 14:45 - JUVE CHRISTIANSEN DNP, BULLDOZER OPERATOR #[address] elevation myocardial infarction secondary to coronary vasospasm Mrs. Novak was transferred from the [place] emergen cy department where he initial troponin was 0.06, and a CK-MB was 5.9. Her ECG at the outside facility was unremarkable. She was transferred to [facility] for evaluation of her elevation in her cardiac serial biomarkers. Due to her associated symptoms of headache and shortness of breath with the chest pain, a head CT was obtained upon arrival to [facility] and did not reveal any abnormalities. [...] may contain vasoconstricting agents. Hyperlipidemia (SNOMED CT :51857776 ) Name of Problem: Hyperlipidemia ; Onset Date: 03/11/2013 ; Recorder: MAXIME VARGHESE RN; Confirmation: Confirmed ; Classification: Medical ; Code: 54276378 ; Contributor System: TeamVisibility ; Last Updated: 03/11/2013 14:45 ROVING WINDER ; Life Cycle Date: 02/11/2012 ; Life [...] Medical ; Code: 296.30 ; Contributor System: [place] [employer] ; Last Updated: 04/24/2012 13:29 ROVING WINDER ; 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 ; Life [...] PNED ; Probability: 0 ; Diagnosis Code: [id number] Triage Chief Complaint Description : See Triage Note Information Given By : Patient Present in Room During Exam/Procedure : Spouse Mode of Arrival ED : Private vehicle Track : Medical Languages : Cameroonian Patient Informed of Triage Location : Emergency department Vital Signs Assessed : Yes GCS Assessed : Yes Treatments Prior to Arrival : Aspirin Is Patient Female and 13-50 no hysterectomy : VALARIE Richmond RN - 09/14/2015 10:44 CDT Vital Signs Apical Heart Rate : 59 /min (LOW) Respiratory Rate : 16 /min Systolic Blood Pressure : 132 mmHg Diastolic Blood Pressure : 88 mmHg NIBP Mean : 103 mmHg SpO2 : 96 % Oxygen Therapy : Room air VALARIE CENTENO RN - 09/14/2015 10:44 CDT Maame Coma Eye Opening Response [place]ther[place] : Spontaneously Best Verbal Response Maame : Oriented Best Motor Response Maame : Obeys simple commands [place] Coma Score : 15 VALARIE CENTENO RN - 09/14/2015 10:44 CDT Pain Assessment Pain Symptoms : Yes VALARIE CENTEON RN - 09/14/2015 10:44 CDT ED Physician Notification Time ED Physician Notification Time : 09/14/2015 10:07 CDT COSMEGEO DE LA FUENTERoxanna Gutierrez RN - 09/14/2015 10:44 CDT SAEED SAEED Level 1 : No SAEED Level 2 : No SAEED Level 3 : One COSMEVALARIE DE LA FUENTE RN - 09/14/2015 10:44 CDT DCP GENERIC CODE Tracking Acuity : 2 -Emergent Tracking Group : [facility] ED GEO CENTENORoxanna Gutierrez RN - 09/14/2015 10:44 CDT Allergy (As Of: 09/14/2015 10:48:05 CDT) Allergies (Active) morphine Estimated Onset Date: Unspecified ; Created By: RAVEN DELUNA LPN; Reaction Status: Active ; Category: Drug ; Substance: morphine ; Type: Allergy ; Updated By: RAVEN DELUAN LPN; Reviewed Date: 09/14/2015 10:47 CDT narcotic analgesics Estimated Onset Date: Unspecified ; Reactions: itch ; Created By: NELLIE OJHNSON RN; Reaction Status: Active ; Category: Drug [...] Detailed Respiratory Patient Stated Symptoms : None COSMEMARGUERITECynthiaDALTONDAMIAN Gutierrez RN - 09/14/2015 10:44 CDT Cardiovascular Heart Rhythm : Regular Skin Color : Normal for ethnicity Skin Description : Dry Skin Temperature : Warm Cardiovascular Detailed Assessment : Yes Monitoring Lead : II MIGUELINAMARCELLOMABEL Gutierrez RN - 09/14/2015 10:44 CDT CV Detailed CV Patient Stated Symptoms : Chest pain Nail Bed Color : [place] Capillary Refill : Less than 2 seconds Heart Sounds ICU : S1S2 Cardiac Rhythm : Sinus bradycardia Edema Assessment : No MIGUELINA VALARIE Gutierrez RN - 09/14/2015 10:44 CDT Neurological Last Well Time Known : Not applicable Level of Consciousness : Alert Orientation : Oriented x 3 Characteristics of Speech : Appropriate for age Neuro Patient Stated Symptoms : Other: arm numbness/tingling Gait : Steady Swallowing Difficulty/Aspiration Risk : None VALARIE CENTENO RN - 09/14/2015 10:44 CDT ED Psychosocial Affect/Behavior : Calm, Cooperative, Appropriate Domestic Abuse Concerns : None, Unable to Screen Behavioral Health Screen/Safety Assmt : No Emotional Support Available : Yes ED Psychosocial Deviation : at bedside MIGUELINADALTONDAMIAN Gutierrez RN - 09/14/2015 10:44 CDT Gastrointestinal Nutrition ED : Adequate GI Detailed Assessment : Yes MIGUELINADALTONDAMIAN Gutierrez RN - 09/14/2015 10:44 CDT GI Detailed GI Patient Stated Symptoms : Abdominal pain, Nausea Bowel Movement Last Date : 09/14/2015 CDT Stool Color : Other: green Stool Description : Loose Abdomen Description : Symmetric Abdomen Palpation : Tender Tenderness : Right lower quadrant VALARIE CENTENO RN - 09/14/2015 10:44 CDT /OB Assessment Patient Stated Symptoms : None VALARIE CENTENO RN - 09/14/2015 10:44 CDT Integumentary Integumentary Patient Stated Symptoms : None Skin Turgor : Elastic Skin Integrity : Intact Mucous Membrane Color : [place] Mucous Membrane Description : Moist Skin Color [...] CENTENO RN - 09/14/2015 10:44 CDT [facility] Document Id: [id number] CDT!129 Valarie Centeno R.N. - 09/14/2015 10:20 [...] CENTENO RN - 09/14/2015 10:42 CDT Source: [facility] [employer] Document Id: [id number] CDT!17 Valarie Centeno R.N. - 09/14/2015 10:12 AM CDT ED Triage Assessment Document Has Been Updated ED Triage Assessment Entered On: 09/14/2015 10:42 CDT Performed On: 09/14/2015 10:12 CDT by VALARIE CENTENO RN Reason For Visit (As Of: 09/14/2015 10:42:53 CDT) Problems(Active) Common migraine (SNOMED CT :13253903 ) Name of Problem: Common migraine ; Onset Date: Unknown ; Recorder: NELLIE JOHNSON RN; Confirmation: Confirmed ; Classification: Nursing ; Code: 32673480 ; Contributor System: TeamVisibility ; Last Updated: 06/19/2010 11:18 CDT ; Life Cycle Status: Active ; Vocabulary:[employer] CT Echocardiogram abnormal (SNOMED CT :863924060 ) Name of Problem: Echocardiogram abnormal ; Onset Date: 06/20/2010 ; Recorder: JUVE CHRISTIANSEN DNP, FNP; Confirmation: Confirmed ; Classification: Medical ; Code: 383535462 ; Contributor System: HelidyneChart ; Last Updated: 07/28/2013 8:54 CDT ; Life Cycle Date: 03/11/2013 ; Life Cycle Status: Active ; Responsible Provider: JUVE CHRISTIANSEN DNP, FNP; Vocabulary: SNOMED CT ; Comments: 03/11/2013 14:44 - UJVE CHRISTIANSEN DNP, FNP Final Impressions1. BEDSIDE ECHOCARDIOGRAM: [...] History of - myocardial infarction (SNOMED CT :4935528438 ) Name of Problem: History of - myocardialinfarction ; Onset Date: 06/18/2010 ; Recorder: NICKY HUMPHREYS MD; Confirmation: Confirmed ; Classification: Medical ; Code: 5697915300 ; Contributor System: TeamVisibility ; Last Updated: 03/11/2013 14:45 ROVING WINDER ; 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 ; Life Cycle Status: Active ; Responsible Provider: NICKY MONTIEL MD; Vocabulary: SNOMED CT ; Comments: 04/24/2012 9:39 - NICKY MONTIEL MD NSTEMI 06/201003/11/2013 14:45 - JUVE CHRISTIANSEN [facility], BULLDOZER OPERATOR #[address] elevation myocardial infarction secondary to coronary vasospasm Mrs. Novak was transferred from the [facility] cy department where he initial troponin was 0.06, and a CK-MB was 5.9. Her ECG at the outside facility was unremarkable. She was transferred to [facility] for evaluation of her elevation in her cardiac serial biomarkers. Due to her associated symptoms of headache and shortness of breath with the chest pain, a head CT was obtained upon arrival to [facility] and did not reveal any abnormalities. [...] may contain vasoconstricting agents. Hyperlipidemia (SNOMED CT :69288788 ) Name of Problem: Hyperlipidemia ; Onset Date: 03/11/2013 ; Recorder: MAXIME VARGHESE RN; Confirmation: Confirmed ; Classification: Medical ; Code: 26834154 ; Contributor System: TeamVisibility ; Last Updated: 03/11/2013 14:45 ROVING WINDER ; Life Cycle Date: 02/11/2012 ; Life [...] Medical ; Code: 296.30 ; Contributor System: [place] [employer] ; Last Updated: 04/24/2012 13:29 ROVING WINDER ; 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 ; Life [...] PNED ; Probability: 0 ; Diagnosis Code: [id number] Triage Chief Complaint Description : 45 yo [...] Private vehicle Track : Medical Languages : Cameroonian Vital Signs Assessed : Yes Treatments Prior [...] Acuity : 2 -Emergent Tracking Group : [facility] ED VALARIE CENTENO RN - 09/14/2015 [...] CENTENO RN - 09/14/2015 10:39 CDT Source: [employer] Document Id: [id number] CDT!58 Valarie Centeno R.N. - 09/14/2015 10:12 AM CDT ED Treatments and Procedures ED Treatments and Procedures Entered On: 09/14/2015 10:44 CDT Performed On: 09/14/2015 10:12 CDT by VALARIE CENTENO RN Cardiac Monitoring Monitoring Lead : II Monitoring Lead Corporate Quality Manager : Initiated Cardiac Rhythm Tech : Sinus bradycardia VALARIE CENTENO RN - 09/14/2015 10:43 CDT Source: [facility] POWERCHART Document Id: [id number] CDT!5 Clarence Lopez M.D. - 09/14/2015 10:09 [...] at 33 Years. LEEP procedure of cervix (62942015) on 08/22/1996 at 26 Years. Total abdominal hysterectomy (corpus and cervix), with or without removal of tube(s), with or without removal of ovary(s); (07904). Comments: 07/13/2010 11:39 - RAVEN DELUNA LPN [...] normal sinus rhythm, No ST-T changes, normal NE & QRS intervals. Reexamination/ Reevaluation First troponin is negative. Discussed the case with Dr. Paul Jones (Cardiology). He would suggest to send the patient to [facility] for further care. Awaiting CT results and will discus with patient. Contacted [facility] and discussed with Dr. Cricket Kearney. The [...] LOPEZ MD On: 09/14/2015 01:54 PM Source: [facility] POWERCHART Document Id: [id number] documented in this encounter Miscellaneous Notes Transfer of Care - Valarie Centeno R.N. - 09/14/2015 1:11 PM CDT Patient Transfer Patient Transfer Entered On: 09/14/2015 13:13 CDT Performed On: 09/14/2015 13:11 CDT by VALARIE CENTENO RN Patient Condition and Reason for Transfer Reason for Transfer : Medically indicated transfer, Patient requests transfer, Patient's legal accounts receivable representative requests transfer Patient's Condition for Transfer [...] LOPEZ MD Receiving Facility Accepting Transfer : [facility]ARD[facility]OLOG[facility] Crew Boss of receiving facility accepting patient : Date/Time [...] orders Required Personnel for Transfer : EMT, Milieu Manager VALARIE CENTENO RN - 09/14/2015 13:11 CDT [...] CENTENO RN - 09/14/2015 13:11 CDT Source: [employer] Document Id: [id number] CDT!31 Miscellaneous - Valarie Centeno R.N. - 09/14/2015 1:11 PM CDT Valuables/Belongings Valuables/Belongings Entered On: 09/14/2015 13:11 CDT Performed On: 09/14/2015 13:11 CDT by VALARIE CENTENO RN Valuables/Belongings Belongings Sent Home With : ALL BELONGINGS SENT WITH PATIENT/FAMILY Home Medication Disposition : None brought in with patient VALARIE CENTENO RN - 09/14/2015 13:11 CDT Source: [employer] Document Id: [id number] CDT!4 Miscellaneous - Conversion, Historical Provider Ser - 09/14/2015 1:05 PM CDT Coding Summary-Paper Based CODING DATE: 09/21/2015 FINAL CA [facility] STATUS: Disch/Trans ShortTerm Gen Hosp-Inpt Care PAYOR: [...] LIZA Date Saved: 09/21/2015 12:30 pm Source: [facility] [employer] Document Id: [id number] Miscellaneous - Valarie Centeno RSonjaN. - 09/14/2015 [...] Control : 21 Lynx Visit Level : 81577 Level 5 Treatments Prior to Arrival : Aspirin VALARIE CENTENO RN - 09/14/2015 13:11 CDT Chief Complaint 11.0 Reason For Visit Category : Cardiorespiratory TVL Calculation : 20 ED Chief Complaint Cardiorespiratory 11.0 : Chest pain TVL for Facility Charge Ticket Dx : Level 5 VALARIE CENTENO RN - 09/14/2015 13:11 CDT Source: [employer] Document Id: [id number] CDT!23 documented in this encounter Plan of [...] Complete, Includes Microscopic (09/14/2015 10:29 AM CDT) [facility] Method Time Signature Clarity Slightly Clear POWERCHART Cloudy (A) HXUr Color Yellow Colorless POWERCHART Specific 1.020 POWERCHART [place], POCT, U pH, POCT, Urine 7.5 <5.0 [...] X109L Erythrocytes 4.48 3.90 - 5.03 POWERCHART L6505V Hemoglobin 14.7 12.0 - 15.5 POWERCHART GDL [...] M.D. LAB BLOOD ADD-ON Performing Organization Address City/[facility]/ZIP Code Phon e Number POWERCHART Bilirubin Direct (09/14/2015 10:20 AM CDT) P athologist Signature Bilirubin, 0.1 0.0 - 0.3 POWERCHART Direct, S MGDL Specimen (Source) Anatomical Collection Method Collection Time Re ceived Time Location / / Volume Laterality Blood 09/14/2015 10:20 AM CDT Clarence Lopez M.D. LAB BLOOD ADD-ON Performing Organization Address City/[facility]/ZIP Code Phon e Number POWERCHART Lipase (09/14/2015 10:20 AM CDT) P athologist Signature Lipase, S 33.3 10.0 - 73.0 POWERCHART UL Specimen (Source) Anatomical Collection Method Collection Time Re ceived Time Location / / Volume Laterality Blood 09/14/2015 10:20 AM CDT Clarence Lopez M.D. LAB BLOOD ADD-ON Performing Organization Address [facility]/ZIP Code Phon e Number POWERCHART ALT (Alanine Aminotransferase) (09/14/2015 10:20 AM CDT) P athologist Signature Alanine 26 7 - 45 POWERCHART Amniotransferas UNITL e, LD Specimen (Source) Anatomical Collection Method Collection Time Re ceived Time Location / / Volume Laterality Blood 09/14/2015 10:20 AM CDT Clarence Lopez M.D. LAB BLOOD ADD-ON Performing Organization Address City/[facility]/ZIP Code Phon e Number POWERCHART AST (Aspartate Aminotransferase) (09/14/2015 10:20 AM CDT) Patholo gist Method Time Signature Aspartate 28 8 - 43 POWERCHART Aminotransferase UNITL (AST), S Specimen (Source) Anatomical Collection Method Collection Time Re ceived Time Location / / Volume Laterality Blood 09/14/2015 10:20 AM CDT Clarence Lopez M.D. LAB BLOOD ADD-ON Performing Organization Address City/[facility]/ZIP Code Phon e Number POWERCHART BMP (Basic [...] POWERCHART MMOLL eGFR >60 >=60 POWERCHART Black/ [id number] Jordanian Glucose 103 70 - 139 POWERCHART MGDL HXeGFR (MDRD) >60 >=60 POWERCHART [id number] Specimen (Source) Anatomical Collection Method Collection Time [...]
--- OUTSIDE RECORDS SUMMARY | 2022-02-02 09:26 | XMS_ITS | Encounter Summary ---
:1970 Author Organization [facility] Address [address] [place] [address] Care Team Providers Name Role Phone Unavailable Primary Care Provider Unavailable Encounter Details Date Type Department Care Team Description 09/14/2015 Hospital Encounter HX NO MAPPING Hilario, Helena Perdomo, YANG N, C.N.P., D.N.P. [address] [place], [place] [phone] (Wo rk) Social History [...] or relatives? How often do you attend caodaism or More than 4 times per year 06/22/2019 muslim services? Do you belong to any clubs or No 06/22/2019 organizations such as caodaism groups, unions, fraternal or athletic groups, or [...]
--- OUTSIDE RECORDS SUMMARY | 2022-02-02 09:26 | XMS_ITS | Encounter Summary ---
:1970 Author Organization [facility] Address [address] [place] [address] Care Team Providers Name Role Phone Elsewhere, Pcp Primary Care Provider Unavailable Reason for Referral MRI/CAT/PET Scan (Routine) - Closed Specialty Diagnoses / Procedures Referred By Contact Refer red To Contact Radiology Diagnoses Pain Right Lower Quadrant Penny Palacios M.D. [facility] [place] [facility] Procedures CT Abdomen Pelvis with IV Contrast CT CT ABD&PELVIS [facility] [address] [place] [address] Referral ID Status Reason Start Date Expiration Date Visits Requ ested Visits Authorized [id number] Closed 11/04/2019 11/03/2020 1 1 Reason for Visit MRI/CAT/PET Scan (Routine) - Closed Specialty Diagnoses / Procedures Referred By Contact Refer red To Contact Radiology Diagnoses Pain Right Lower Quadrant Penny Palacios M.D. [facility] [place] [facility] Procedures CT Abdomen Pelvis with IV Contrast CT CT ABD&PELVIS W CNTRST [address] [place] [address] Referral ID Status Reason Start Date Expiration Date Visits Requ ested Visits Authorized [id number] Closed 11/04/2019 11/03/2020 1 1 Encounter Details Date Type Department Care Team Description 11/04/2019 Hospital Encounter Department of Penny Palacios Pain Right Lower Radiology in Rogelio Coleman M.D. [place], [place] [id number] [place] [address] [place], [place] [phone] (Work) [phone] Social History Tobacco Use Types Packs/Day Years [...] the highest level of school Associate degree: [employer] program 06/22/2019 you have completed or the [...] documented as of this encounter Care Teams Insole Department Worker Relationship Specialty Start Date End Date Elsewhere, Pcp PCP - General Internal Medicine 06/08/19 06/15/21 documented as of this encounter
--- OUTSIDE RECORDS SUMMARY | 2022-02-02 09:26 | XMS_ITS | Encounter Summary ---
:1970 Author Organization [facility] Address [address] [place] [address] Care Team Providers Name Role Phone Elsewhere, Pcp Primary Care Provider Unavailable Encounter Details Date Type Department Care Team Description 06/09/2019 Documentation Department of Cardiovascular CamposDuncan, Diseases in Santana Kiran M.D. [place] [address] [facility] [address] [place] [phone] (Wo rk) Social History Tobacco Use Types [...] documented as of this encounter Care Teams Phonograph Needle Tip Maker Relationship Specialty Start Date End Date Elsewhere, Pcp PCP - General Internal Medicine 06/08/19 06/15/21 documented as of this encounter
--- OUTSIDE RECORDS SUMMARY | 2022-02-02 09:26 | XMS_ITS | Encounter Summary ---
:1970 Author Organization [facility] Address [address] [place] [address] Care Team Providers Name Role Phone Unavailable Primary Care Provider Unavailable Encounter Details Date Type Department Care Team Description 09/14/2015 - Hospital Encounter HX RST Adis Zambrano, 09/15/2015 Janene, Ph.D. [address] [place] [phone] Social History Tobacco Use Types Packs/Day Years [...] or relatives? How often do you attend sikhism or More than 4 times per year 06/22/2019 gnosticist services? Do you belong to any clubs or No 06/22/2019 organizations such as sikhism groups, unions, fraternal or athletic groups, or [...] Chartplus. Pulse 52 09/15/2015 12:30 Value from [facility] tplus. PM CDT Temperature - - Respiratory [...] athologist Signature Troponin T, S <0.01 <0.01 [facility] NG/ML LABORATORIES - [facility] Specimen Anatomical Collection Method Collection Time Receive d Time (Source) Location / / Volume Laterality 09/14/2015 5:29 PM 6 5:29 CDT PM CDT Ailyn Dee M.D., Ph.D. LAB BLOOD ADD-ON Performing Organization Address City/State/ZIP Code Phon e Number [facility] LABORATORIES - [address] [place], [place] [address] [facility] ECG 12 Lead (09/14/2015 5:22 PM CDT) Specimen (Source) Anatomical Collection Method Collection Time Re ceived Time Location / / Volume Laterality 09/14/2015 5:22 PM CDT [facility] SYSTEM - 09/14/2015 5:27 PM CDT [id number] 17:22 VENTRICULAR RATE 52 Sinus bradycardia Low voltage QRS When compared with ECG of 14-SEP-2015 10 :15, No significant change was found [id number]^JR JENNY ROSALES^JUVENTINO Procedure Note Juventino Rosales Jr., M.D. - 05/29/2017For matting of this note might be different from the original. [id number] 17:22 VENTRICULAR RATE 52 Sinus bradycardia Low voltage QRS When compared with ECG of 14-SEP-2015 10 :15, No significant change was found [id number]^JR JENNY ROSALES^JUVENTINO Ailyn Dee M.D., Ph.D. ECG ORDERABLES Performing Organization Address City/State/ZIP Code Phon e Number [facility] [address] [place] [address], [place] documented in this encounter Visit Diagnoses Not on filedocumented in this encounter Additional Health Concerns Assessment Noted Time PHQ-9 Depression Total Score: 10 03/11/2013 2:22 PM CS T documented as of this encounter
--- OUTSIDE RECORDS SUMMARY | 2022-02-02 09:26 | XMS_ITS | Encounter Summary ---
:1970 Author Organization [facility] Address [address] [place] [address] Care Team Providers Name Role Phone Elsewhere, Pcp Primary Care Provider Unavailable Reason for Visit Reason Comments Shortness of Breath Encounter Details Date Type Department Care Team Description 06/08/2019 Emergency [facility] Adis Cardenas, Shortness Of Breath (Primary Dx); Department M.D. 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 As a result [...] Biotin has been identified by the hailey maardiaga as a potential interfering substance. ??Higher concentr ations of biotin may be found in multivitamins, hair/nail supple ments, and workout supplements. ??If the result does not [facility] clinical observations, repeat testing after patient refrains fr om the use of supplements for at least 12 hours. Specimen Anatomical Collection Method Collection Time Receive d Time (Source) Location / / Volume Laterality Blood (Blood, 06/08/2019 4:23 PM 06/08/19 20 4:26 Venous) CDT PM CDT Adis Cardenas M.D. LAB BLOOD ADD-ON Performing Organization Address City/[facility] Code Phon e Number [address] [address] [place] [address] System [address] ECG 12 Lead (06/08/2019 3:46 PM CDT) P athologist Signature Ventricular Rate 74 BPM MUSE ECG/Min MA Interval 164 ms MUSE QRSD Interval 88 ms MUSE QT Interval 436 ms MUSE QTC Interval 483 ms MUSE P [place] 54 degrees MUSE R [place] 10 degrees MUSE T Wave [place] 17 degrees MUSE Specimen Anatomical Collection Method [...] documented as of this encounter Care Teams Principal Architect Relationship Specialty Start Date End Date Elsewhere, Pcp PCP - General Internal Medicine 06/08/19 06/15/21 documented as of this encounter
--- OUTSIDE RECORDS SUMMARY | 2022-02-02 09:26 | XMS_ITS | Encounter Summary ---
:1970 Author Organization [facility] Address [address] [place] [address] Care Team Providers Name Role Phone Elsewhere, Pcp Primary Care Provider Unavailable Encounter Details Date Type Department Care Team Description 06/16/2019 Documentation Department of Cardiovascular Campos, Duncan Up, [facility] [place] [address] [facility] [address] [place] [phone] (Wo rk) Social History Tobacco Use Types [...] Laura that we have made arrangements for [facility]fi[facility]bk-olir visit [facility]. She is very much looking forward to this. She has no additional complaints or concerns at this time but understands she can contact me in the future as needed. CT CT Job ID: [id number]/mc documented in this encounter Plan of Treatment Not on filedocumented as of this encounter Visit Diagnoses Not on filedocumented in this encounter Additional Health Concerns Assessment Noted Time PHQ-9 Depression Total Score: 3 09/15/2015 2:08 PM CDT documented as of this encounter Care Teams Environmental Engineering Technician Relationship Specialty Start Date End Date Elsewhere, Pcp PCP - General Internal Medicine 06/08/19 06/15/21 documented as of this encounter
--- OUTSIDE RECORDS SUMMARY | 2022-02-02 09:26 | XMS_ITS | Encounter Summary ---
:1970 Author Organization [facility] Address [address] [place] [address] Care Team Providers Name Role Phone Unavailable Primary Care Provider Unavailable Reason for Visit Physical Therapy (Routine) - Canceled Specialty Diagnoses / Procedures Referred By Contact Refer red To Contact Diagnoses Aftercare Surgery Injury Ganesh Cortes M.D. [facility] Procedures PT Ongoing treatment [address] [place] [address] Referral ID Status Reason Start Date Expiration Date Visits V isits Requested Authorized [id number] Canceled 12/21/2018 03/09/2019 99 99 Encounter Details Date Type Department Care Team Description 01/15/2019 Clinical Support Department of Ganesh Cortes M.D. [address] [place] [address] Aftercare Surgery Rehabilitation Alyce Salguero, P.T. [address] [place] [phone] Injury Services in [address] [phone] Social History Tobacco Use Types Packs/Day Years [...] arm rows in single arm extension with Ustin-Tdxn-czwcuk, standing hipabduction isometrics against the wall. We [...] Salguero P.T. Department of Rehabilitation Services in [address] [address] Dept: [phone] ING UNIT COORDINATOR documented in this encounter Plan of Treatment Not on filedocumented as of this encounter Visit Diagnoses Diagnosis Aftercare Surgery Injury documented in this encounter Additional Health Concerns Assessment Noted Time PHQ-9 Depression Total Score: 3 09/15/2015 2:08 PM CDT documented as of this encounter
--- OUTSIDE RECORDS SUMMARY | 2022-02-02 09:26 | XMS_ITS | Encounter Summary ---
:[address] [facility] Address [address] [place] [address] Care Team Providers Name Role Phone Elsewhere, Pcp Primary Care Provider Unavailable Reason for Referral Outpatient (Routine) - Closed Specialty Diagnoses / Procedures Referred By Contact Refer red To Contact Diagnoses Screening Mammogram Breast Cancer Paul Abarca M.D., Ph.D. [facility] Region Procedures BI Breast Screening Bilateral [address] [place] [address] [place] [address] Referral ID Status Reason Start Date Expiration Date Visits Requ ested Visits Authorized [id number] Closed 11/05/2019 11/04/2020 1 1 Reason for Visit Outpatient (Routine) - Closed Specialty Diagnoses / Procedures Referred By Contact Refer red To Contact Diagnoses Screening Mammogram Breast Cancer Paul Abarca M.D., Ph.D. [facility] Region Procedures BI Breast Screening Bilateral [address] [place] [phone] Referral ID Status Reason Start Date Expiration Date Visits Requ ested Visits Authorized [id number] Closed 11/05/2019 11/04/2020 1 1 Encounter Details Date Type Department Care Team Description 11/08/2019 Hospital Encounter Department of Paul Abarca, Screen ing Mammogram Radiology in Rogelio Watters, Ph.D. Breast Cancer [address] [place] [address] Rogelio Guerrero, [phone] [place] [phone] Social History Tobacco Use Types Packs/Day Years [...] or relatives? How often do you attend congregational or More than 4 times per year 06/22/2019 voodoo services? Do you belong to any clubs or No 06/22/2019 organizations such as congregational groups, unions, fraternal or athletic groups, or [...] the highest level of school Associate degree: [employer] program 06/22/2019 you have completed or the [...] Imaging RST LOS, Breast Imaging ARZ LOS, [address] Bilateral Mammography Imaging FLA LOS Specimen [...] documented as of this encounter Care Teams Coal Crusher Operator Relationship Specialty Start Date End Date Elsewhere, Pcp PCP - General Internal Medicine 06/08/19 06/15/21 documented as of this encounter
--- OUTSIDE RECORDS SUMMARY | 2022-02-02 09:26 | XMS_ITS | Encounter Summary ---
:1970 Author Organization [facility] Address [address] [place] [address] Care Team Providers Name Role Phone Unavailable Primary Care Provider Unavailable Reason for Visit Physical Therapy (Routine) - Closed Specialty Diagnoses / Procedures Referred By Contact Refer red To Contact Diagnoses Aftercare Surgery Injury Ganesh Cortes M.D. [facility] Procedures PT Evaluate and treat [address] [place] [address] Referral ID Status Reason Start Date Expiration Date Visits Requ ested Visits Authorized [id number] Closed 11/27/2018 11/27/2019 1 1 Encounter Details Date Type Department Care Team Description 12/21/2018 Comprehensive Visit Department of Vida Cortes M.D. [address] [address] Aftercare Surgery Rehabilitation Alyce Salguero, P.T. [address] [place] [phone] Injury Services in [address] [phone] Social History Tobacco Use Types Packs/Day Years [...] Visit Diagnosis: 1. Aftercare Surgery Injury Payor: [employer] / Plan: [employer] / Product Type: PPO / [employer] Visit Count: 1 PERTINENT MEDICAL / SURGICAL [...] capsular closure performed by Dr. Cortes at [facility] in [place] on December 18, 2018. Aggravating Factors: Movement [...] P.T. Department of Rehabilitation Services in [address] [address] Dept: [phone] documented in this encounter Plan of Treatment Not on filedocumented as of this encounter Visit Diagnoses Diagnosis Aftercare Surgery Injury documented in this encounter Additional Health Concerns Assessment Noted Time PHQ-9 Depression Total Score: 3 09/15/2015 2:08 PM CDT documented as of this encounter
--- OUTSIDE RECORDS SUMMARY | 2022-02-02 09:26 | XMS_ITS | Encounter Summary ---
:1970 Author Organization [facility] Address [address] [place] [address] Care Team Providers Name Role Phone Unavailable Primary Care Provider Unavailable Reason for Visit Physical Therapy (Routine) - Canceled Specialty Diagnoses / Procedures Referred By Contact Refer red To Contact Diagnoses Aftercare Surgery Injury Ganesh Cortes M.D. [facility] Procedures PT Ongoing treatment [address] [address] Referral ID Status Reason Start Date Expiration Date Visits V isits Requested Authorized [id number] Canceled 12/21/2018 03/09/2019 99 99 Encounter Details Date Type Department Care Team Description 12/29/2018 Clinical Support Department of Ganesh Cortes M.D. [address] [place] [address] Aftercare Surgery Rehabilitation Alyce Salguero, P.T. [address] [place] [phone] Injury Services in [address] [phone] Social History Tobacco Use Types Packs/Day Years [...] Salguero P.T. Department of Rehabilitation Services in [address] [address] Dept: [phone] documented in this encounter Plan of Treatment Not on filedocumented as of this encounter Visit Diagnoses Diagnosis Aftercare Surgery Injury documented in this encounter Additional Health Concerns Assessment Noted Time PHQ-9 Depression Total Score: 3 09/15/2015 2:08 PM CDT documented as of this encounter
--- OUTSIDE RECORDS SUMMARY | 2022-02-02 09:26 | XMS_ITS | Encounter Summary ---
:1970 Author Organization [facility] Address [address] [place] [address] Care Team Providers Name Role Phone Unavailable Primary Care Provider Unavailable Reason for Visit Physical Therapy (Routine) - Canceled Specialty Diagnoses / Procedures Referred By Contact Refer red To Contact Diagnoses Aftercare Surgery Injury Ganesh Cortes M.D. [facility] Procedures PT Ongoing treatment [address] [address] Referral ID Status Reason Start Date Expiration Date Visits V isits Requested Authorized [id number] Canceled 12/21/2018 03/09/2019 99 99 Encounter Details Date Type Department Care Team Description 01/08/2019 Clinical Support Department of Ganesh Cortes M.D. [address] [place] [address] Aftercare Surgery Rehabilitation Alyce Salguero, P.T. [address] [place] [phone] Injury Services in [address] [phone] Social History Tobacco Use Types Packs/Day Years [...] or relatives? How often do you attend restorationist or More than 4 times per year 06/22/2019 pentecostalism services? Do you belong to any clubs or No 06/22/2019 organizations such as restorationist groups, unions, fraternal or athletic groups, or [...] documented as of this encounter Progress Notes Alcye Salguero P.T. - 01/08/2019 3:30 PM CDT [...] Salguero P.T. Department of Rehabilitation Services in [address] [address] Dept: [phone] documented in this encounter Plan of Treatment Not on filedocumented as of this encounter Visit Diagnoses Diagnosis Aftercare Surgery Injury documented in this encounter Additional Health Concerns Assessment Noted Time PHQ-9 Depression Total Score: 3 09/15/2015 2:08 PM CDT documented as of this encounter
--- OUTSIDE RECORDS SUMMARY | 2022-02-02 09:26 | XMS_ITS | Encounter Summary ---
:1970 Author Organization [facility] Address [address] [place] [address] Care Team Providers Name Role Phone Elsewhere, Pcp Primary Care Provider Unavailable Reason for Visit Reason Onset Date Comments Outpatient COVID-19 Testing 12/15/2019 Encounter Details Date Type Department Care Team Description 12/15/2019 External Outreach Department of [facility] Riddhi Rainey [facility] Medicine, Clarissa Jessica BurnsABethany Respiratory (Primary Clinic, in [facility] [address] [place], [place] [address] [address] [place], [place] [phone] (Work) [phone] Social History Tobacco Use Types Packs/Day Years [...] More than 4 times per year 06/22/2019 synagogue services? Do you belong to any clubs [...] highest level of school Associate degree: academ [employer] program 06/22/2019 you have completed or the [...] RNA, V Symptomatic (12/15/2019 10:15 AM CDT) [facility] Method Time Signature SARS-CoV-2 Swab, 12/15/2019 [...] is performed using the Aptima SARS-CoV-2 assay ([employer] which has received Emergency Use Authori zation (EUA) by the U.S. Food and Drug Administration. Fact sheets for this Emergency Use Autho rization (EUA) assay can be found at the following links: For Healthcare Providers: https://www.fd a.gov/media/333194/download For Patients: https://www.fda.gov/media/ 424259/download Specimen Anatomical Collection Method Collection Time Receive d Time (Source) Location / / Volume Laterality Varies 12/15/2019 10:15 12/15/2019 3:12 (Nasopharynx) AM CDT PM CDT Carl Rainey P.A.-C. LAB MICROBIOLOGY - GENERAL O [place]ON[place]IO Performing Organization Address City/State/ZIP Code Phon e Number [facility]- [address] [place] [address] [phone] [facility] [place] [address] System in [address] documented in this encounter Visit Diagnoses Diagnosis Infection Upper Respiratory - Primary documented in this encounter Additional Health Concerns Infection Onset Date Last Indicated Resolved Time COVID19 Pending 12/15/2019 12/15/2019 12/15/2019 9:45 PM CDT Assessment Noted Time PHQ-9 Depression Total Score: 3 09/15/2015 2:08 PM CDT documented as of this encounter Care Teams Home Health Attendant Relationship Specialty Start Date End Date Elsewhere, Pcp PCP - General Internal Medicine 06/08/19 06/15/21 documented as of this encounter
--- OUTSIDE RECORDS SUMMARY | 2022-02-02 09:26 | XMS_ITS | Encounter Summary ---
:1970 Author Organization [facility] Address [address] [place] [address] Care Team Providers Name Role Phone Elsewhere, Pcp Primary Care Provider Unavailable Encounter Details Date Type Department Care Team Description 01/15/2021 Orders Only RST PCP TH Lili Tobar M.D. [address] [place], [place] [phone] (Wo rk) Social History [...] highest level of school Associate degree: [email or web address] program 06/22/2019 you have completed or the [...] documented as of this encounter Care Teams Registered Nurse Practitioner Relationship Specialty Start Date End Date Elsewhere, Pcp PCP - General Internal Medicine 06/08/19 06/15/21 documented as of this encounter
--- OUTSIDE RECORDS SUMMARY | 2022-02-02 09:26 | XMS_ITS | Encounter Summary ---
:1970 Author Organization [facility] Address [address] [place] [address] Care Team Providers Name Role Phone Elsewhere, Pcp Primary Care Provider Unavailable Reason for Referral Outpatient (Routine) - Closed Specialty Diagnoses / Procedures Referred By Contact Refer red To Contact Diagnoses Palpitations Mahamed Campos M.D. [facility] Procedures ECG Heart Rhythm Monitor (Holter) [address] [place], [place] [phone] Referral ID Status Reason Start Date Expiration Date Visits Requ ested Visits Authorized [id number] Closed 06/09/2019 06/08/2020 1 1 Encounter Details Date Type Department Care Team Description 06/09/2019 Orders Only Department of Mahamed Campos Palpitation s (Primary Cardiovascular Diseases Janene Up Dx) in [facility] [address] [facility] [address] [place] [phone] Social History Tobacco Use Types Packs/Day Years [...] or relatives? How often do you attend samaritan or More than 4 times per year 06/22/2019 spiritism services? Do you belong to any clubs or No 06/22/2019 organizations such as samaritan groups, unions, Badoo or athletic groups, or school groups? How [...] encounter Results HOLTER MONITOR - IN CLINIC SHEET FINISHER (06/10/2019 3:09 PM CDT) [facility] gist Method Time Signature VE Max Per [id number] HOLTER Hour Time SENTINEL Min Heart Rate [id number] HOLTER Time SENTINEL VE Max Per 7 [...] Recording Date HOLTER SENTINEL Max Heart Rate [id number] HOLTER Time SENTINEL SVE Max Per 9 count HOLTER Hour SENTINEL SVE Max Per [id number] HOLTER Hour Time SENTINEL VE Total Beats [...] documented as of this encounter Care Teams Wet Roaster Relationship Specialty Start Date End Date Elsewhere, Pcp PCP - General Internal Medicine 06/08/19 06/15/21 documented as of this encounter
--- OUTSIDE RECORDS SUMMARY | 2022-02-02 09:26 | XMS_ITS | Encounter Summary ---
:1970 Author Organization [facility] Address [address] [place] [address] Care Team Providers Name Role Phone Elsewhere, Pcp Primary Care Provider Unavailable Reason for Visit Outpatient (Routine) - Closed Specialty Diagnoses / Procedures Referred By Contact Refer red To Contact Diagnoses Palpitations Mahamed Campos M.D. [facility] Procedures ECG Heart Rhythm Monitor (Holter) [address] [place] [address] Referral ID Status Reason Start Date Expiration Date Visits Requ ested Visits Authorized [id number] Closed 06/09/2019 06/08/2020 1 1 Encounter Details Date Type Department Care Team Description 06/10/2019 Ancillary Procedure Department of Mahamed Campos Palp itations Cardiovascular Diseases Janene Up in [facility] [address] [facility] [[email or web address] [address] [place] [phone] Social History Tobacco Use Types Packs/Day Years [...] More than 4 times per year 06/22/2019 hindu services? Do you belong to any clubs [...] PM Palpitations Re sults for this CLINIC ATMOSPHERIC TECHNICIAN CDT procedure are in the results section. documented in this encounter Results HOLTER MONITOR - IN CLINIC ATMOSPHERIC TECHNICIAN (06/10/2019 3:09 PM CDT) [facility] gist Method Time Signature VE Max Per [id number] HOLTER Hour Time SENTINEL Min Heart Rate [id number] HOLTER Time SENTINEL VE Max Per 7 [...] Recording Date HOLTER SENTINEL Max Heart Rate [id number] HOLTER Time SENTINEL SVE Max Per 9 count HOLTER Hour SENTINEL SVE Max Per [id number] HOLTER Hour Time SENTINEL VE Total Beats [...] documented as of this encounter Care Teams Head Inspector And Center Marker Relationship Specialty Start Date End Date Elsewhere, Pcp PCP - General Internal Medicine 06/08/19 06/15/21 documented as of this encounter
--- OUTSIDE RECORDS SUMMARY | 2022-02-02 09:26 | XMS_ITS | Encounter Summary ---
:1970 Author Organization [facility] Address [address] [place] [address] Care Team Providers Name Role Phone Unavailable Primary Care Provider Unavailable Encounter Details Date Type Department Care Team Description 03/15/2014 Hospital Encounter HX [facility] FAMILY ME Juve Christiansen, ALVERTO, C.N.P., D. N.P. [address] [place] [address] (Wo rk) Social History Tobacco [...] Comments Blood Pressure 116/65 03/15/2014 7:32 AM LEADERSHIP INTERN Pulse 66 03/15/2014 7:32 AM LEADERSHIP INTERN Temperature - - Respiratory Rate 16 03/15/2014 7:32 AM LEADERSHIP INTERN Oxygen Saturation - - Inhaled Oxygen Concentration - - Weight 88.2 kg (194 lb 7.1 oz) 03/15/2014 7:32 AM LEADERSHIP INTERN Height 173 cm (5' 8.11) 03/15/2014 7:32 AM LEADERSHIP INTERN Body Mass Index 29.47 03/15/2014 7:32 AM LEADERSHIP INTERN documented in this encounter Progress Notes Juve Christiansen D.N.P., C.N.P. - 03/15/2014 7:19 AM CST [id number] CHIEF COMPLAINT/REASON FOR VISIT Followup hyperhidrosis. HISTORY [...] information regarding the medication from the [facility] Education site were discussed. Medication [...] DNP, FNP On: 03/15/2014 12:22 PM Source: [facility] MHSDOLBEYNJOVANRADSYS Document Id: [id number] ERSHIP INTERN documented in this encounter Miscellaneous Notes Miscellaneous - Juve Christiansen D.N.P., C.N.P. - 03/15/2014 8:10 AM LEADERSHIP INTERN Ambulatory Patient Summary [address] [id number] Visit Information Name: GERMAN NOVAK JATIN [facility] Number: [id number] Current Date: 03/15/2014 08:10:26 [...] sweating x 90 day(s) New Routed to [facility] [address] [address] simvastatin (simvastatin 20 mg oral [...] vasospasm Mrs. Novak was transferred from the [place] emergency department where he initial troponin was 0.06, and a CK-MB was 5.9. [facility]. 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 Your Goals/Additional instructions: Future Appointment: in June for routine exam and echo Lab: _ Radiology: _ Need Prior Auth: _ NO Prior Auth: _ Consult: _ Release of MR_ PHI_ Source: [facility] POWERCHART Document Id: [id number] ERSHIP INTERN Miscellaneous - Juve Christiansen D.N.P., C.N.P. - 03/15/2014 8:10 AM LEADERSHIP INTERN Ambulatory Discharge Medication List [address] [id number] Visit Information Name: GERMAN NOVAK [facility] Number: [id number] Visit Date: 03/15/2014 08:10:25 [...] sweating x 90 day(s) New Routed to [address] [address] simvastatin (simvastatin 20 mg oral tablet) 1 [...] FNP Signed On:15-MAR-2014 08:08:17 Additional Information: Source: [facility] Pristones Document Id: [id number] ERSHIP INTERN Miscellaneous - Damaris Medrano L.P.N. - 03/15/2014 7:40 AM CST Meaningful Use Influenza Exclusion Meaningful Use Influenza Exclusion Entered On: 03/15/2014 7:40 LEADERSHIP INTERN Performed On: 03/15/2014 7:40 LEADERSHIP INTERN by DAMARIS MEDRANO LPN Influenza Vaccine Exclusion Influenza Vaccine Exclusion : Patient declined DAMARIS MEDRANO LPN - 03/15/2014 7:40 LEADERSHIP INTERN Source: [facility] Pristones Document Id: [id number] LEADERSHIP INTERN!3 ERSHIP INTERN Miscellaneous - Damaris Medrano L.P.NSonja - 03/15/2014 7:32 AM CST Adult Party Plan Selling Distributor Intake/History Adult Party Plan Selling Distributor Intake/History Entered On: 03/15/2014 7:39 LEADERSHIP INTERN Performed On: 03/15/2014 7:32 LEADERSHIP INTERN by DAMARIS MEDRANO LPN Intake Chief Complaint [...] kg/m2 DAMARIS MEDRANO LPN - 03/15/2014 7:32 LEADERSHIP INTERN General Info Information Given By : Patient Languages : Turkmen Is Patient Female and 13-50 no hysterectomy : No DAMARIS MEDRANO LPN - 03/15/2014 7:32 LEADERSHIP INTERN Subjective Pain Symptoms : No DAMARIS MEDRANO LPN - 03/15/2014 7:32 LEADERSHIP INTERN Dependent Habits Tobacco Use/Currently Using : No Tobacco Use/Last 12 months : No Tobacco Use/Advised to Quit : No Exposure to Tobacco Smoke : Care provider denies smoking in home Smoking Status : Former smoker DAMARIS MEDRANO LPN - 03/15/2014 7:32 LEADERSHIP INTERN Tobacco Use Grid Type : Cigarettes Last Use : 04/09/12 DAMARIS MEDRANO LPN - 03/15/2014 7:32 LEADERSHIP INTERN Alcohol Use : Yes DAMARIS MEDRANO LPN - 03/15/2014 7:32 LEADERSHIP INTERN Caffeine Use Grid Caffeine Use : Current Type : Soft drinks Frequency : Daily Amount : 1 DAMARIS MEDRANO LPN - 03/15/2014 7:32 LEADERSHIP INTERN Recreational Drug Use Grid Drug Use : None DAAMRIS MEDRANO LPN - 03/15/2014 7:32 LEADERSHIP INTERN ID Screen Drug Resistant Organism : No Travel Within Last 21 Days : No DAMARIS MEDRANO LPN - 03/15/2014 7:32 LEADERSHIP INTERN Source: [facility] POWERCHART Document Id: [id number] LEADERSHIP INTERN!47 ERSHIP INTERN documented in this encounter Plan of Treatment Not on filedocumented as of this encounter Visit Diagnoses Not on filedocumented in this encounter Additional Health Concerns Assessment Noted Time PHQ-9 Depression Total Score: 10 03/11/2013 2:22 PM CS T documented as of this encounter
--- OUTSIDE RECORDS SUMMARY | 2022-02-02 09:26 | XMS_ITS | Encounter Summary ---
:1970 Author Organization [facility] Address [address] [place] [address] Care Team Providers Name Role Phone Elsewhere, Pcp Primary Care Provider Unavailable Encounter Details Date Type Department Care Team Description 06/11/2019 Orders Only Department of Cardiovascular Adebayo Campos, Diseases in Santana Kiran M.D. [place] [address] [facility] [address] [place] [phone] (Wo rk) Social History Tobacco Use Types [...] More than 4 times per year 06/22/2019 cheondoism services? Do you belong to any clubs [...] documented as of this encounter Care Teams Zipper Ironer Relationship Specialty Start Date End Date Elsewhere, Pcp PCP - General Internal Medicine 06/08/19 06/15/21 documented as of this encounter
--- OUTSIDE RECORDS SUMMARY | 2022-02-02 09:26 | XMS_ITS | Encounter Summary ---
:1970 Author Organization [facility] Address [address] [place] [address] Care Team Providers Name Role Phone Unavailable Primary Care Provider Unavailable Encounter Details Date Type Department Care Team Description 03/15/2014 Hospital Encounter HX [facility] Karen Fernandez, ALVERTO, C.N.P., D. N.P. [address] [phone] (Wo rk) Social History Tobacco Use [...] 173 cm (5' 8.11) 03/15/2014 8:21 AM FUR WEIGHER Body Mass Index - - documented in this encounter Plan of Treatment Not on filedocumented as of this encounter Visit Diagnoses Not on filedocumented in this encounter Additional Health Concerns Assessment Noted Time PHQ-9 Depression Total Score: 10 03/11/2013 2:22 PM CS T documented as of this encounter
--- OUTSIDE RECORDS SUMMARY | 2022-02-02 09:26 | XMS_ITS | Encounter Summary ---
:1970 Author Organization [facility] Address [address] [place] [address] Care Team Providers Name Role Phone Unavailable Primary Care Provider Unavailable Encounter Details Date Type Department Care Team Description 12/01/2014 Hospital Encounter HX [facility] FAMILY ME Shayla Baez, LOG PEELER, C.N.P. [address] [place], [place] [address] (Wo rk) Social History [...] STRATTON LPN - 12/01/2014 16:26 CDT Source: [facility] POWERCHART Document Id: [id number] CDT!6 documented in this encounter Plan of [...]
--- OUTSIDE RECORDS SUMMARY | 2022-02-02 09:26 | XMS_ITS | Encounter Summary ---
:1970 Author Organization [facility] Address [address] [place] [address] Care Team Providers Name Role Phone Unavailable Primary Care Provider Unavailable Reason for Visit Reason Comments Advice Only pt has seen payroll coordinator in the past, is having symptoms that pt would like to discuss Appointment Request (Routine) - Closed Specialty Diagnoses / Procedures Referred By Contact Refer red To Contact Family Medicine Referral ID Status Reason Start Date Expiration Date Visits Requ ested Visits Authorized [id number] Closed 09/09/2018 09/09/2019 1 1 Encounter Details Date Type Department Care Team Description 09/24/2018 Office Visit Department of Mahamed Campos Pain Chest Atypical Cardiovascular Diseases Janene Up (Primary Dx) in [facility] [address] [facility] [address] [place] [phone] Social History Tobacco Use Types Packs/Day Years [...] Laura is a pleasant 48-year-old female from [place], [place]. 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 She previously followed in [facility] with Dr. Paul pedraza back in [...] has undergone evaluation in the Orthopedic Clinic ([facility] in the [facility]). She is not felt to be a [...] stairs. 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 She is [...] how to access online yoga videos via YouTube. 2. I would advise 3 to 6 [...] consultation with greater than 50% in direct [id number] counseling. CT CT Job ID: [id number] documented in this encounter Plan of Treatment Not on filedocumented as of this encounter Visit Diagnoses Diagnosis Pain Chest Atypical - Primary documented in this encounter Additional Health Concerns Assessment Noted Time PHQ-9 Depression Total Score: 3 09/15/2015 2:08 PM CDT documented as of this encounter
--- OUTSIDE RECORDS SUMMARY | 2022-02-02 09:26 | XMS_ITS | Encounter Summary ---
:1970 Author Organization [facility] Address [address] [place] [address] Care Team Providers Name Role Phone Elsewhere, Pcp Primary Care Provider Unavailable Encounter Details Date Type Department Care Team Description 06/10/2019 Clinical Communication Department of Mahamed Campos Cardiovascular Medicine Janene Up in [facility] [address] [facility] [address] [place] [phone] Social History Tobacco Use Types Packs/Day Years [...] ok with F2F. THanks Telephone Encounter - eKri Mcdonald M.D. - 06/14/2019 12:21 PM CDT [...] way but I think she needs the [place] experience to reaffirm this. Thanks in advance Andres Telephone Encounter - Mahamed Campos M.D. - 06/11/2019 12:42 PM CDT Error Telephone Encounter - Katina Head - 06/11/2019 11:[address] Campos, I am attaching Dr. Mcdonald, head of [facility], so she can assess as well, [...] Katina Head - 06/10/2019 2:[address] Campos, Please place an order for a [...] documented as of this encounter Care Teams Fire Apparatus Engineer Relationship Specialty Start Date End Date Elsewhere, Pcp PCP - General Internal Medicine 06/08/19 06/15/21 documented as of this encounter
--- OUTSIDE RECORDS SUMMARY | 2022-02-02 09:27 | XMS_ITS | Encounter Summary ---
:1970 Author Organization [facility] Address [address] [place] [address] Care Team Providers Name Role Phone Unavailable Primary Care Provider Unavailable Encounter Details Date Type Department Care Team Description 10/19/2007 Hospital Encounter HX [facility] Yonas Lopez, INPT/OBSRV M.D. [address] [place] [phone] (Wo rk) Social [...]
--- OUTSIDE RECORDS SUMMARY | 2022-02-02 09:27 | XMS_ITS | Encounter Summary ---
:1970 Author Organization [facility] Address [address] [place] [address] Care Team Providers Name Role Phone Unavailable Primary Care Provider Unavailable Encounter Details Date Type Department Care Team Description 03/11/2013 Hospital Encounter HX [facility] FAMILY ME Juve Christiansen, ALVERTO, C.N.P., D. N.P. [address] [place] [address] (Wo rk) Social History Tobacco [...] D.N.P., C.N.P. - 03/11/2013 3:08 PM CST [id number] CHIEF COMPLAINT/REASON FOR VISIT Labs. HISTORY OF [...] ECG was unremarkable. She was transferred to [place] for evaluation of her elevation in cardiac [...] alert/oriented x3. HEAD: Normocephalic/atraumatic. PUPILS: G[place]ZAL[place]. OROPHARYNX: [place] and moist. TMs: Bilateral TMs are clear, [...] also recommend she follow up with our Dress Fitter for further overall wellness improvement. Patient again felt comfortable with this treatment plan. 2. Depression: Presently at this time she is to continue her previously prescribed Prozac 40 mg by mouth daily but again we will plan on having her follow up with Health and Dress Fitter for further evaluation to see if we can provide some further improvement regarding her overall depression. We also discussed anxiety at length and the overall need to minimize this as well given her history of her HI. The patient stated she understands the plan. [...] DNP, FNP On: 03/20/2013 12:11 PM Source: [facility] MHSDOLBEYNONRADSYS Document Id: [id number] RWRITING ASSISTANT documented in this encounter Consult Notes Conversion, Historical Provider Ser - 03/11/2013 3:08 PM CST [id number] HEALTH & WELLNESS COACHING Referring Physician Juve Christiansen D.N.P./F.N.P. Patient was seen in [facility] on 03/11/2013 for initial wellness coaching visit [...] NA FONSECA On: 03/16/2013 04:02 PM Source: [facility] MHSDOLBEYNONRADSYS Document Id: [id number] documented in this encounter Plan of Treatment Not on filedocumented as of this encounter Visit Diagnoses Not on filedocumented in this encounter Additional Health Concerns Assessment Noted Time PHQ-9 Depression Total Score: 10 03/11/2013 2:22 PM CS T documented as of this encounter
--- OUTSIDE RECORDS SUMMARY | 2022-02-02 09:27 | XMS_ITS | Encounter Summary ---
:1970 Author Organization [facility] Address [address] [place] [address] Care Team Providers Name Role Phone Unavailable Primary Care Provider Unavailable Encounter Details Date Type Department Care Team Description 09/08/2007 Hospital Encounter HX [facility] INPT/OBSRV Lindy Palacios M.D. [address] [place], [place] [address] (Wo rk) Social History Tobacco [...]
--- OUTSIDE RECORDS SUMMARY | 2022-02-02 09:27 | XMS_ITS | Encounter Summary ---
:1970 Author Organization [facility] Address [address] [place] [address] Care Team Providers Name Role Phone Unavailable Primary Care Provider Unavailable Encounter Details Date Type Department Care Team Description 04/24/2012 Hospital Encounter HX [facility] Nicky Llanes M.D. [address] [place] [address] [place] Ramirez [phone] (Wo rk) Social History [...] More than 4 times per year 06/22/2019 anabaptist services? Do you belong to any clubs [...] Comments Blood Pressure 116/72 04/24/2012 9:04 AM MEDICAL ASSISTANT SECRETARY Pulse 64 04/24/2012 9:04 AM MEDICAL ASSISTANT SECRETARY Temperature - - Respiratory Rate 16 04/24/2012 9:04 AM MEDICAL ASSISTANT SECRETARY Oxygen Saturation - - Inhaled Oxygen Concentration - - Weight 83.7 kg (184 lb 8.4 oz) 04/24/2012 9:04 AM MEDICAL ASSISTANT SECRETARY Height 173 cm (5' 8.11) 04/24/2012 9:04 AM MEDICAL ASSISTANT SECRETARY Body Mass Index 27.97 04/24/2012 9:04 AM MEDICAL ASSISTANT SECRETARY documented in this encounter Progress Notes Nicky Gomez M.D. - 04/24/2012 8:37 AM CST [id number] CHIEF COMPLAINT/REASON FOR VISIT Follow-up mood and [...] reports that the spot to her right orthodox seems to be getting a little [...] are adequate. SKIN: Over the patient's right orthodox within her hairline, there is a brown, raised lesion that is approximately 7 mm x 8 mm. It does have some darker freckles in it and hairs growing through it. Margins are fairly distinct. PROCEDURE: Shave biopsy of the right orthodox. We discussed the procedure today including risks of bleeding, infection and scarring. We also discussed different options for removal stating that the shave biopsy would likely be best to leave the least amount of scar. Patient voiced understanding. Consent was signed. Kevil protocol was followed.The entirety of the procedure [...] of the content Nicky Manzo M.D./latasha DOCID: [id number] Electronically Signed By: NICKY MONTIEL MD On: 05/01/2012 07:37 AM Modified by and Electronically Signed by: NICKY MONTIEL MD On: 05/01/2012 07:36 AM Source: [facility] MHSDOLBEYNONRADSYS Document Id: [id number] CAL ASSISTANT SECRETARY documented in this encounter Miscellaneous Notes Miscellaneous - Rebecca Granados, LSonjaP.N. - 04/24/2012 3:07 PM CST PHQ-9 PHQ-9 Entered On: 04/24/2012 15:08 MEDICAL ASSISTANT SECRETARY Performed On: 04/24/2012 15:07 MEDICAL ASSISTANT SECRETARY by REBECCA GRANADOS TAR MAN, RT PHQ-9 Little interest or pleasure in [...] REBECCA GRANADOS LPN, RT - 04/24/2012 15:07 MEDICAL ASSISTANT SECRETARY Source: [facility] curated.by Document Id: [id number] CAL ASSISTANT SECRETARY Miscellaneous - Nicky Gomez M.D. - 04/24/2012 1:22 PM MEDICAL ASSISTANT SECRETARY Ambulatory Patient Summary [address] [address] Visit Information Name: GERMAN NOVAK [facility] Number: [id number] Current Date: 04/24/2012 13:22:57 Physicians Attending Provider: NICKY MONTIEL MD Primary Care Provider: LAVELL BUCHANAN RN, FOREST FIRE SPECIALIST SUPERVISOR Your Medications Here is a list of [...] No Appointments found Your Goals/Additional instructions: [facility] Document Id: [id number] CAL ASSISTANT SECRETARY Miscellaneous - Nicky Gomez M.D. - 04/24/2012 1:22 PM MEDICAL ASSISTANT SECRETARY Ambulatory Depart Summary [address] [address] Visit Information Name: GERMAN NOVAK [facility] Number: [id number] Visit Date: 04/24/2012 13:22:57 Attending Provider: NICKY MONTIEL MD Primary Care Provider: LAVELL BUCHANAN RN, FOREST FIRE SPECIALIST SUPERVISOR JASMYNEGREGGGERMANE has been given the following list of [...] your provider for clarification. Additional Information: [facility] Document Id: [id number] CAL ASSISTANT SECRETARY Miscellaneous - Damaris Colindres L.P.N. - 04/24/2012 9:04 AM CST Adult Dispensing Audiologist Intake/History Adult Dispensing Audiologist Intake/History Entered On: 04/24/2012 9:10 MEDICAL ASSISTANT SECRETARY Performed On: 04/24/2012 9:04 MEDICAL ASSISTANT SECRETARY by DAMARIS COLINDRES LPN Intake Chief Complaint : F/U on medication increase, check spot on right orthodox area, Tailings Man took offall medication, wants cholesterol checked, Temperature [...] 27.97kg/m2 DAMARIS COLINDRES LPN - 04/24/2012 9:04 MEDICAL ASSISTANT SECRETARY General Info Information Given By : Patient Languages : Tajik DAMARIS COLINDRES LPN - 04/24/2012 9:04 MEDICAL ASSISTANT SECRETARY Subjective Pain Symptoms : No DAMARIS COLINDRES LPN - 04/24/2012 9:04 MEDICAL ASSISTANT SECRETARY Dependent Habits Tobacco Use/Currently Using : No Tobacco Use/Last 12 months : No Tobacco Use/Advised to Quit : No Exposure to Tobacco Smoke : Care provider denies smoking in home Smoking Status : Former smoker DAMARIS COLINDRES LPN - 04/24/2012 9:04 MEDICAL ASSISTANT SECRETARY Tobacco Use Grid Type : Cigarettes Last Use : 04/09/12 DAMARIS COLINDRES LPN - 04/24/2012 9:04 MEDICAL ASSISTANT SECRETARY Alcohol Use : Yes DAMARIS COLINDRES LPN - 04/24/2012 9:04 MEDICAL ASSISTANT SECRETARY Caffeine Use Grid Caffeine Use : Current Type : Soft drinks Frequency : Daily Amount : 1 DAMARIS COLINDRES LPN - 04/24/2012 9:04 MEDICAL ASSISTANT SECRETARY Recreational Drug Use Grid Drug Use : None DAMARIS COLINDRES LPN - 04/24/2012 9:04 MEDICAL ASSISTANT SECRETARY Allergy Allergies (Active) morphine Estimated Onset Date: Unspecified ; Created By: RAVEN DELUNA LPN; Reaction Status: Active ; Category: Drug ; Substance: morphine ; Type: Allergy ; Updated By: RAVEN DELUNA LPN; Reviewed Date: 04/24/2012 9:03 MEDICAL ASSISTANT SECRETARY narcotic analgesics Estimated Onset Date: Unspecified ; Reactions: itch ; Created By: NELLIE JOHNSON RN; Reaction Status: Active ; Category: Drug ; Substance: narcotic analgesics ; Type: Sensitivity ; Updated By: NELLIE JOHNSON RN; Reviewed Date: 04/24/2012 9:03 MEDICAL ASSISTANT SECRETARY Percocet 5/325 Estimated Onset Date: Unspecified ; Created By: RAVEN DELUNA LPN; Reaction Status:Active ; Category: Drug ; Substance: Percocet 5/325 ; Type: Allergy ; Updated By: RAVEN DELUNA LPN; Reviewed Date: 04/24/2012 9:03 MEDICAL ASSISTANT SECRETARY Toradol Estimated Onset Date: Unspecified ; Created By: RAVEN DELUNA LPN; Reaction Status: Active; Category: Drug ; Substance: Toradol ; Type: Allergy ; Updated By: RAVEN DELUNA LPN; Reviewed Date: 04/24/2012 9:03 MEDICAL ASSISTANT SECRETARY Source: [facility] curated.by Document Id: [id number] CAL ASSISTANT SECRETARY Miscellaneous - Barbara Mao N.P. - 04/17/2012 8:49 AM CST School or Work Excuse Document Has Been Updated School or Work Excuse Entered On: 04/17/2012 8:49 MEDICAL ASSISTANT SECRETARY Performed On: 04/17/2012 8:49 MEDICAL ASSISTANT SECRETARY by BARBARA MAO NP School or Work Excuse Date Patient Seen : 04/10/2012 MEDICAL ASSISTANT SECRETARY School or Work Restrictions : No Restrictions BARBARA MAO NP - 04/17/2012 8:49 MEDICAL ASSISTANT SECRETARY Date of Return to School/Work Without Restrictions : 04/11/2012 MEDICAL ASSISTANT SECRETARY BARBARA MAO NP - 04/17/2012 8:50 MEDICAL ASSISTANT SECRETARY Source: [facility] POWERCHART Document Id: [id number] CAL ASSISTANT SECRETARY Miscellaneous - Alyce Robbins - 04/14/2012 12:31 PM CST General Message Document Contains Addenda Addendum by ALYCE ROBBINS RN on 20 April 2012 15:08:53 MEDICAL ASSISTANT SECRETARY Thank you. Addendum by SHAWN TALLEY RN on 17 April 2012 09:33:26 MEDICAL ASSISTANT SECRETARY This was faxed, pt notified by message on VM Addendum by SHAWN TALLEY RN on 17 April 2012 08:38:38 MEDICAL ASSISTANT SECRETARY From: SHAWN TALLEY RN To: BARBARA MAO MASON APPRENTICE; SHAWN TALLEY RN; Sent: 04/17/2012 08:38:38 MEDICAL ASSISTANT SECRETARY Subject: FW: General Message Sent to you as provider Pt requests a note that says she was seen in the ED on 04/10/12 and that she is okay to return to work. Would you be willing to write this for her? Addendum by SHAWN TALLEY RN on 15 April 2012 16:40:12 MEDICAL ASSISTANT SECRETARY From: SHAWN TALLEY RN To: ALYCE ROBBINS RN; Sent: 04/15/2012 16:40:12 MEDICAL ASSISTANT SECRETARY Subject: FW: General Message Pt requests that when this note is complete that it goes to Anna at fax [phone]. Pt requests call when done [phone]. Addendum by NICKY MONTIEL MD on 15 April 2012 12:59:58 MEDICAL ASSISTANT SECRETARY From: NICKY MONTIEL MD To: ALYCE ROBBINS RN; Sent: 04/15/2012 12:59:58 MEDICAL ASSISTANT SECRETARY Subject: RE: General Message Jen. Bill I have had no time to read that note to address this. Nicky Addendum by SHAWN TALLEY RN on 15 April 2012 10:03:04 MEDICAL ASSISTANT SECRETARY From: SHAWN TALLEY RN To: RESHMA LYNNE III, MD; Sent: 04/15/2012 10:03:04 MEDICAL ASSISTANT SECRETARY Subject: FW: General Message Sent to you [...] ROBBINS RN on 14 April 2012 13:28:17 MEDICAL ASSISTANT SECRETARY From: ALYCE ROBBINS RN To: NICKY MONTIEL MD; Sent: 04/14/2012 13:28:17 MEDICAL ASSISTANT SECRETARY Subject: FW: General Message Bill, please see Dr Cardenas's dictation from 04/10/2012. Let me know if this is not sufficient. Thanks. Addendum by NICKY MONTIEL MD on 14 April 2012 13:17:11 MEDICAL ASSISTANT SECRETARY From: NICKY MONTIEL MD To: ALYCE ROBBINS RN; Sent: 04/14/2012 13:17:11 MEDICAL ASSISTANT SECRETARY Subject: RE: General Message I do not know why she was seen in the ED or when she was seen. I need more information please. Nicky Alberts From: ALYCE ROBBINS RN To: NICKY MONTIEL MD; Sent: 04/14/2012 12:31:17 MEDICAL ASSISTANT SECRETARY Subject: General Message Seen in ED with Dr Cardenas who is not here today. Says is switching to you as PCP. Needs return to work note. Prefers include: Seen in ED but okay to return to work without restrictions. Patient will collect, needs it for work tomorrow (Wed). Can you do this for her? Source: [facility] POWERCHART Document Id: [id number] Electronically signed by Conversion, [facility] Commercial Credit Reviewer [id number] at 08/07/2016 7:31 PM CDT documented in this encounter Plan of Treatment Not on filedocumented as of this encounter Visit Diagnoses Not on filedocumented in this encounter Additional Health Concerns Assessment Noted Time PHQ-9 Depression Total Score: 4 04/24/2012 3:07 PM MEDICAL ASSISTANT SECRETARY documented as of this encounter
--- OUTSIDE RECORDS SUMMARY | 2022-02-02 09:27 | XMS_ITS | Encounter Summary ---
:1970 Author Organization [facility] Address [address] [place] [address] Care Team Providers Name Role Phone Unavailable Primary Care Provider Unavailable Encounter Details Date Type Department Care Team Description 02/13/2012 Hospital Encounter [facility]X [facility] Alessandra Hogue AP RN, C.N.P., D.N.P. [address] [place], [place] [phone] (Wo rk) Social History [...] AM Results for this HORMONE (FSH), S FINE GRADER procedure a re in the results section. documented in this encounter Results FSH (Follicle-Stimulationg Hormone) (02/13/2012 8:05 AM FINE GRADER) P athologist Signature Follicle-Stim 9.7 INTUL POWERCHART Hormone (FSH), S Comment: -- REFERENCE VALUE -- Premenopausal: 3.9-8.8 ??(Follicular) 4.5-22.5 (Midcycle) 1.8-5.1 ??(Luteal) Postmenopausal: 16.7-113.6 Test Performed by: [facility] [place] [address] Entry Level Manufacturing Engineer: Babatunde elder III, M.D. Specimen (Source) Anatomical Collection Method Collection Time Re ceived Time Location / / Volume Laterality Blood 02/13/2012 8:05 AM FINE GRADER Ken Tolentino APRN.N.P., D.N.P. LAB BLOOD ADD-ON Performing Organization Address City/State/ZIP Code Phon e Number POWERCHART documented in this encounter Visit Diagnoses Not on filedocumented in this encounter
--- OUTSIDE RECORDS SUMMARY | 2022-02-02 09:27 | XMS_ITS | Encounter Summary ---
:1970 Author Organization [facility] Address [address] [place] [address] Care Team Providers Name Role Phone Unavailable Primary Care Provider Unavailable Encounter Details Date Type Department Care Team Description 10/19/2007 - Hospital Encounter HX [facility] [place], 10/20/2007 INPT/OBSRV M.D. [address] Rogleio Guerrero [place] [phone] (Wo rk) Social History Tobacco Use [...]
--- OUTSIDE RECORDS SUMMARY | 2022-02-02 09:27 | XMS_ITS | Encounter Summary ---
:1970 Author Organization [facility] Address [address] [place] [address] Care Team Providers Name Role Phone Unavailable Primary Care Provider Unavailable Encounter Details Date Type Department Care Team Description 08/06/2009 Hospital Encounter HX [facility] INPT/OBSRV Brenda Garvey M.D. [address] [place] [phone] (Wo rk) Social History Tobacco [...]
--- OUTSIDE RECORDS SUMMARY | 2022-02-02 09:27 | XMS_ITS | Encounter Summary ---
:1970 Author Organization [facility] Address [address] [place] [address] Care Team Providers Name Role Phone Unavailable Primary Care Provider Unavailable Encounter Details Date Type Department Care Team Description 06/19/2010 - 06/21/2010 Hospital Encounter HX [facility] Social History Tobacco Use Types Packs/Day [...] More than 4 times per year 06/22/2019 buddhism services? Do you belong to any clubs [...] 21-Jun-2010 08:31:00 ??Exam: US Abdomen Limited Indications: [id number] - Abd Limite d - chest pain [...] Electronically signed by: ?? Gerald Simon MD [phone] ([id number]) 21-Jun-2010 08:36 Procedure Note Naveen Simon M.D. - 06/07/2017For matting of this note might be different from the original. 21-Jun-2010 08:31:00 Exam: US Abdomen [facility] Indications: [id number] - Abd Limite d - chest pain [...] diameter. Electronically signed by: Gerald Simon MD [phone] ([id number]) 21-Jun-2010 08:36 Butch LOPEZ US PROCEDURES documented in this encounter Visit Diagnoses Not on filedocumented in this encounter
--- OUTSIDE RECORDS SUMMARY | 2022-02-02 09:27 | XMS_ITS | Encounter Summary ---
:1970 Author Organization [facility] Address [address] [place] [address] Care Team Providers Name Role Phone Unavailable Primary Care Provider Unavailable Encounter Details Date Type Department Care Team Description 10/23/2007 Hospital Encounter HX [facility] [place], INPT/OBSRV M.D. [address] [place] Ramirez [phone] (Wo rk) Social [...]
--- OUTSIDE RECORDS SUMMARY | 2022-02-02 09:27 | XMS_ITS | Encounter Summary ---
:1970 Author Organization [facility] Address [address] [place] [address] Care Team Providers Name Role Phone Unavailable Primary Care Provider Unavailable Encounter Details Date Type Department Care Team Description 09/06/2013 Hospital Encounter HX [facility]ILY ME Elio Roberts M.D. Social History [...] Roberts M.D. - 09/06/2013 3:16 PM CDT [id number] German comes in complaining of a headache. She has had it for the past week. She has used kzim-sfw-nyzxufh medication, ibuprofen, Aleve, Tylenol, Excedrin without any [...] splenomegaly. IMPRESSION/REPORT/PLAN Migraine headache, not responsive to mgil-oqd-dlxuuls medications, esophageal reflux, chest pain. AnEKG was [...] the Prozac. Also suggested she get some lnns-jpw-yovxkbh Prilosec and take it daily for the heartburn. Elio Roberts M.D./shimon Electronically Signed By: ELIO ROBERTS MD On: 09/08/2013 07:49 AM Source: [facility] MHSDOLBEYNONRADSYS Document Id: [id number] documented in this encounter Miscellaneous Notes Miscellaneous - Raven Jaramillo LSonjaP.N. - 03/08/2014 1:52 PM CST Quality Measures Quality Measures Entered On: 03/09/2014 13:53 BUSINESS AGENT Performed On: 03/08/2014 13:52 BUSINESS AGENT by RAVEN JARAMILLO LPN Depression PHQ-9 Score : 2 RAVEN JARAMILLO LPN - 03/09/2014 13:52 BUSINESS AGENT Source: [facility] POWERCHART Document Id: [id number] BUSINESS AGENT!3 NESS AGENT Miscellaneous - Elio Roberts M.D. - 09/06/2013 5:15 PM CDT Ambulatory Patient Summary [address] [address] [place], [place] [id number] Visit Information Name: GERMAN NOVAK [facility] Number: [id number] Current Date: 09/06/2013 17:15:09 Physicians Attending Provider: ELIO ROBERTS MD Primary Care Provider: JUVE CHRISTIANSEN DNP, RUBBER AND POUNDER YUSEFFERNANDOGERMANE has been given the following list [...] day This is a CHANGE [facility] [address] HYDROcodone-acetaminophen (Vicodin 5 mg-300 mg oral tablet) 1 Tablet(s), Oral, every 4 hours as needed for Pain No more than 4,000mg acetaminophen/24hrs New Routed to [employer] multivitamin (Multiple Vitamins oral tablet) 1 Tablet(s), [...] vasospasm Mrs. Novak was transferred from the [place] emergency department where he initial troponin was 0.06, and a CK-MB was 5.9. [facility]. She was transferred to [facility] for evaluation of her elevation in her cardiac serial biomarkers. Due to her associated symptoms of headache and shortness of breath with the chest pain, a head CT was obtained upon arrival to [facility] and did not reveal any abnormalities. She [...] appointment detail needed. Your Goals/Additional instructions: Source: [facility] POWERCHART Document Id: [id number] Miscellaneous - Elio Roberts M.D. - 09/06/2013 5:15 PM CDT Ambulatory Discharge Medication List [address] [phone] Visit Information Name: GERMAN NOVAK [facility] Number: [id number] Visit Date: 09/06/2013 17:15:08 Attending Provider: ELIO ROBERTS MD Primary Care Provider: JUVE CHRISTIANSEN [facility], RUBBER AND POUNDER GERMAN NOVAK has been given the following [...] day This is a CHANGE Routed to [address] [address] HYDROcodone-acetaminophen (Vicodin 5 mg-300 mg oral tablet) 1 Tablet(s), Oral, every 4 hours as needed for Pain No more than 4,000mg acetaminophen/24hrs New Routed to [employer] multivitamin (Multiple Vitamins oral tablet) 1 Tablet(s), [...] MD Signed On:06-SEP-2013 17:14:45 Additional Information: Source: [facility] POWERCHART Document Id: [id number] Miscellaneous - Robert Del Rio L.P.N. - 09/06/2013 3:24 PM CDT Adult Lotteries Agent Intake/History Adult Lotteries Agent Intake/History Entered On: 09/06/2013 15:27 CDT Performed [...] Information Given By : Patient Languages : Hong Konger ROBERT DEL RIO - 09/06/2013 15:24 CDT Subjective Pain Symptoms : Yes ROBERT DEL RIO - 09/06/2013 15:24 CDT Pain Pain Assessment Grid Pain 1 Location : Head Intensity : 5 ROBERT DEL RIO - 09/06/2013 15:24 CDT Dependent Habits Tobacco Use/Currently [...] ELIANE ROBERT - 09/06/2013 15:24 CDT Source: [facility] POWERCHART Document Id: [id number] CDT!44 documented in this encounter Plan of [...]
--- OUTSIDE RECORDS SUMMARY | 2022-02-02 09:27 | XMS_ITS | Encounter Summary ---
:1970 Author Organization [facility] Address [address] [place] [address] Care Team Providers Name Role Phone Unavailable Primary Care Provider Unavailable Encounter Details Date Type Department Care Team Description 10/19/2007 - Hospital Encounter HX [facility] LARRY [place], 10/20/2007 INPT/OBSRV M.D. [address] Rogelio Guerrero [place] [phone] (Wo rk) Social History [...] or relatives? How often do you attend uatsdin or More than 4 times per year 06/22/2019 worship services? Do you belong to any clubs or No 06/22/2019 organizations such as uatsdin groups, unions, fraternal or athletic groups, or [...] encounter Miscellaneous Notes Miscellaneous - Stiven Garza R.N. - 02/26/2013 8:53 AM CST Med Management Document Contains Addenda Addendum by STIVEN GARZA RN on 26 February 2013 16:01:16 COMMUNITY PLANNER noted Addendum by LAVELL BUCHANAN RN, CRABBER on 26 February 2013 12:25:19 COMMUNITY PLANNER Approved with modifications: Order:FLUoxetine (Prozac 40 mg oral capsule) 1 cap(s) PO Daily Qty: 90 cap(s) Refills: 0 Substitutions Allowed Route To Pharmacy - [facility] Signed by LAVELL BUCHANAN RN, CRABBER 02/26/2013 12:25:00 From: STIVEN GARZA RN To: LAVELL BUCHANAN RN, CRABBER; STIVEN GARZA RN; Sent: 02/26/2013 08:53:31 COMMUNITY PLANNER Subject: Med Management On hold pending signature Order:FLUoxetine (Prozac 40 mg oral capsule) 1 cap(s) PO Daily Qty: 30 cap(s) Refills: 11 Substitutions Allowed Route To Pharmacy - [facility] review refill. Karen [facility] Document Id: [id number] Miscellaneous - Molly Gomez M.D. - 05/01/2012 9:12 AM COMMUNITY PLANNER biopsy results From: MOLLY MONTIEL MD To: MOLLY MONTIEL MD; Sent: 05/01/2012 09:12:10 COMMUNITY PLANNER Subject: biopsy results Spoke with Laura gunter: her biopsy results which showed a seborrheic keratosis. Discussed that this is noncancerous. Patient reports that it is healing well. She has no other concerns. Source: [facility] Document Id: [id number] documented in this encounter Plan of Treatment Not on filedocumented as of this encounter Visit Diagnoses Not on filedocumented in this encounter
--- OUTSIDE RECORDS SUMMARY | 2022-02-02 09:27 | XMS_ITS | Encounter Summary ---
:1970 Author Organization [facility] Address [address] [place] [address] Care Team Providers Name Role Phone Unavailable Primary Care Provider Unavailable Encounter Details Date Type Department Care Team Description 03/11/2013 Hospital Encounter H[facility] Tiffanie Christiansen, ALVERTO, C.N.P., D.N.P. [address] [place], [place] [phone] (Wo rk) Social History [...] More than 4 times per year 06/22/2019 denominational services? Do you belong to any clubs [...] Christiansen D.N.P., C.N.P. - 03/16/2013 7:02 AM MATRIX PLATER Normal Results Letter 16 March 2013 GERMAN NOVAK 707 [facility] [id number] Dear GERMAN NOVAK, I am pleased to [...] 03/11/2013 <=30 - Sincerely, TIFFANIE CHRISTIANSEN [address] [place] [address] Electronic Signature Electronically Signed By: TIFFANIE CHRISTIANSEN DNP, FNP On: 16 March 2013 This document has images extracted. Source: [facility] The Guild Document Id: [id number] Electronically signed by Conversion, [facility] Manufacturing Engineer Automotive [id number] at 08/06/2016 2:46 PM CDT Miscellaneous - Tiffanie Christiansen, D.N.P., C.N.P. - 03/11/2013 10:32 AM MATRIX PLATER Normal Results Letter 11 March 2013 GERMAN NOVAK 707 [facility] [id number] Dear GERMAN NOVAK, I apologize, as I [...] lipoprotein A results when they return from [place]. Please follow up with us as we [...] 0.30 - 5.00 Sincerely, TIFFANIE CHRISTIANSEN [address] [place] [address] Electronic Signature Electronically Signed By: TIFFANIE CHRISTIANSEN DNP, FNP On: 11 March 2013 This document has images extracted. Source: [facility] Zane PrepCHART Document Id: [id number] Electronically signed by Conversion, [facility] Manufacturing Engineer Automotive [id number] at 08/06/2016 2:46 PM CDT documented in this encounter Plan of Treatment Not on filedocumented as of this encounter Procedures Procedure Name Priority Date/Time Associated Comments Diagnosis LIPID PANEL, S Routine 03/11/2013 9:24 AM Results for this MATRIX PLATER procedure are i n the results section. LIPOPROTEIN (A), S/P Routine 03/11/2013 9:24 AM R esults for this MATRIX PLATER procedure are i n the results section. THYROID-STIMULATING Routine 03/11/2013 9:24 AM Re sults for this HORMONE-SENSITIVE MATRIX PLATER procedure are in (S-TSH) the results section. documented in this encounter Results Thyroid-Stimulating Hormone-Sensitive (s-TSH) (03/11/2013 9:24 AM MATRIX PLATER) P athologist Signature TSH 1.27 0.30 - 5.00 POWERCHART (Thyrotropin) MCIUML Specimen (Source) Anatomical Collection Method Collection Time Re ceived Time Location / / Volume Laterality Blood 03/11/2013 9:24 AM MATRIX PLATER Tiffanie Christiansen APRN, C.N.P., D.N.P. LAB BLOOD ADD- ON Performing Organization Address City/State/[facility] Code Phon e Number POWERCHART (ABNORMAL) Lipid Panel (03/11/2013 9:24 AM MATRIX PLATER) P athologist Signature Cholesterol, 271 (H) 0 [...] / Volume Laterality Blood 03/11/2013 9:24 AM MATRIX PLATER Tiffanie Christiansen APRN, C.N.P., D.N.P. LAB BLOOD ADD- ON Performing Organization Address City/State/ZIP Code Phon e Number POWERCHART Lipoprotein (a) (03/11/2013 9:24 AM MATRIX PLATER) P athologist Signature Lp(a) 15 <=30 MGDL POWERCHART Cholesterol Comment: Test Performed by: [address] [address] Professional Development Instructor: Babatunde elder III, M.D. Specimen (Source) Anatomical Collection Method Collection Time Re ceived Time Location / / Volume Laterality Blood 03/11/2013 9:24 AM MATRIX PLATER Tiffanie Christiansen APRN, C.N.P., D.N.P. LAB BLOOD ADD- ON Performing Organization Address City/State/ZIP Code Phon e Number POWERCHART documented in this encounter Visit Diagnoses Not on filedocumented in this encounter Additional Health Concerns Assessment Noted Time PHQ-9 Depression Total Score: 10 03/11/2013 2:22 PM CS T documented as of this encounter
--- OUTSIDE RECORDS SUMMARY | 2022-02-02 09:27 | XMS_ITS | Encounter Summary ---
:1970 Author Organization [facility] Address [address] [place] [address] Care Team Providers Name Role Phone Unavailable Primary Care Provider Unavailable Encounter Details Date Type Department Care Team Description 06/17/2013 Hospital Encounter HX [facility] Tiffanie Christiansen, ALVERTO, C.N.P., D.N.P. [address] [place], [place] [phone] (Wo rk) Social History [...] More than 4 times per year 06/22/2019 jain services? Do you belong to any clubs [...] Letter 18 June 2013 GERMAN NOVAK 707 [facility] [id number] Dear GERMAN NOVAK, I am pleased to [...] 3 06/17/2013 3 03/11/2013 Sincerely, TIFFANIE CHRISTIANSEN [facility] [place] [address] Electronic Signature Electronically Signed By: TIFFANIE CHRISTIANSEN DNP, FNP On: 18 June 2013 This document has images extracted. Source: [facility] POWERCHART Document Id: [id number] Electronically signed by Vipin [facility] Wax Pattern Repairer [id number] at 08/06/2016 9:02 AM CDT documented in [...] Blood 06/17/2013 7:55 AM CDT Tiffanie Christiansen FURNITURE DETAILER, C.N.P., D.N.P. LAB BLOOD ADD- ON Performing Organization Address [facility]/ZIP Code Phon e Number POWERCHART (ABNORMAL) Lipid [...] LAB BLOOD ADD- ON Performing Organization Address City/State/[facility] Code Phon e Number POWERCHART documented in this encounter Visit Diagnoses Not on filedocumented in this encounter Additional Health Concerns Assessment Noted Time PHQ-9 Depression Total Score: 03/11/2013 2:22 PM CS T documented as of this encounter
--- OUTSIDE RECORDS SUMMARY | 2022-02-02 09:27 | XMS_ITS | Encounter Summary ---
:1970 Author Organization [facility] Address [address] [place] [address] Care Team Providers Name Role Phone Unavailable Primary Care Provider Unavailable Encounter Details Date Type Department Care Team Description 03/08/2014 Hospital En[facility] Juve Christiansen, ALVERTO, C.N.P., D. N.P. [address] [place] [address] (Wo rk) Social History Tobacco [...] Comments Blood Pressure 136/74 03/08/2014 7:51 AM SAP BASIS Pulse 60 03/08/2014 7:51 AM SAP BASIS Temperature - - Respiratory Rate 16 03/08/2014 7:51 AM SAP BASIS Oxygen Saturation - - Inhaled Oxygen Concentration - - Weight 87.6 kg (193 lb 2 oz) 03/08/2014 7:51 AM SAP BASIS Height 173 cm (5' 8.11) 03/08/2014 7:51 AM SAP BASIS Body Mass Index 29.27 03/08/2014 7:51 AM SAP BASIS documented in this encounter Progress Notes Juve Christiansen D.N.P., C.N.P. - 03/08/2014 7:32 AM CST [id number] CHIEF COMPLAINT/REASON FOR VISIT Excessive sweating. HISTORY [...] alert/oriented x3. HEAD: Normocephalic/atraumatic. PUPILS: G[place]ZALO. OROPHARYNX: [place] and moist. TYMPANIC MEMBRANES: Bilateral TMs are [...] DNP, FNP On: 03/08/2014 10:15 AM Source: [facility] MHSDOLBEYNONRADSYS Document Id: [id number] BASIS documented in this encounter Miscellaneous Notes Miscellaneous - Juve Christiansen D.N.P., Ken.N.P. - 03/08/2014 8:37 AM SAP BASIS Ambulatory Patient Summary [address] [id number] Visit Information Name: MURALI GERMAN JATIN [facility] Number: [id number] Current Date: 03/08/2014 08:37:59 Physicians [...] a CK-MB was 5.9. [facility] was unremark[facility]. She was transferred to [facility] for evaluation of her elevation in her cardiac serial biomarkers. Due to her associated symptoms of headache and shortness of breath with the chest pain, a head CT was obtained upon arrival to [facility] and did not reveal any [...] of increased severe stressors at home and [employer] business, we have set up a psychology [...] Release of MR_ PHI_ Source: [facility] POWERCHART Document Id: [id number] BASIS Miscellaneous - Juve Christiansen, Cynthia.N.P., C.N.P. - 03/08/2014 8:37 AM SAP BASIS Ambulatory Discharge Medication List [address] [id number] Visit Information Name: GERMAN NOVAK [facility] Number: [id number] Visit Date: 03/08/2014 08:37:58 Attending [...] FNP Signed On:08-MAR-2014 08:37:28 Additional Information: Source: [facility] POWERCHART Document Id: [id number] BASIS Miscellaneous - Conversion, Historical Provider Ser - 03/08/2014 7:51 AM SAP BASIS Adult Faculty Administrator Intake/History Adult Faculty Administrator Intake/History Entered On: 03/08/2014 7:56 SAP BASIS Performed On: 03/08/2014 7:51 SAP BASIS by ARLETTE MADSEN LPN Intake Chief Complaint [...] kg/m2 ARLETTE MADSEN LPN - 03/08/2014 7:51 SAP BASIS General Info Information Given By : Patient Languages : Italian Is Patient Female and 13-50 no hysterectomy : No ARLETTE MADSEN [facility] - 03/08/2014 7:51 SAP BASIS Subjective Pain Symptoms : ARLETTE Carranza [facility] - 03/08/2014 7:51 SAP BASIS Dependent Habits Tobacco Use/Currently Using : No Exposure to Tobacco Smoke : Care provider denies smoking in home Smoking Status : Former smoker ARLETTE MADSEN [facility] - 03/08/2014 7:51 SAP BASIS Tobacco Use Grid Type : Cigarettes Last Use : 04/09/12 ARLETTE MADSEN [facility] - 03/08/2014 7:51 SAP BASIS Caffeine Use Grid Caffeine Use : Current Type : Soft drinks Frequency : Daily Amount : 1 ARLETTE MADSEN [facility] - 03/08/2014 7:51 SAP BASIS Recreational Drug Use Grid Drug Use : None ARLETTE MADSEN [facility] - 03/08/2014 7:51 SAP BASIS ID Screen Drug Resistant Organism : No Travel Within Last 21 Days : ARLETTE Carranza [facility] - 03/08/2014 7:51 SAP BASIS Source: [employer] Document Id: [id number] SAP BASIS!46 documented in this encounter Plan of Treatment Not on filedocumented as of this encounter Procedures Procedure Name Priority Date/Time Associated Diagnosis Comme nts THYROID-STIMULATING Routine 03/08/2014 8:25 AM Re sults for this HORMONE-SENSITIVE SAP BASIS procedure are in (S-TSH) the results section. T4 (THYROXINE), Routine 03/08/2014 8:25 AM Result s for this FREE, S SAP BASIS procedure are i n the results section. CORTISOL, S Routine 03/08/2014 8:25 AM Results f or this SAP BASIS procedure are i n the results section. documented in this encounter Results T4 (Thyroxine), Free (03/08/2014 8:25 AM SAP BASIS) P athologist Signature T4 (Thyroxine), 1.2 NGDL POWERCHART Free, S Comment: REFERENCE VALUE------ 0.8-1.8 Elevated values are seen in patients on thyroxine therapy. Test Performed by: [place] [address] Lube Worker: Leanne Jorge Specimen (Source) Anatomical Collection Method Collection Time Re ceived Time Location / / Volume Laterality Blood 03/08/2014 8:25 AM SAP BASIS Juve Christiansen APRN, C.N.P., D.N.P. LAB BLOOD ADD- ON Performing Organization Address City/[facility] Code Phon e Number POWERCHART Thyroid-Stimulating Hormone-Sensitive (s-TSH) (03/08/2014 8:25 AM SAP BASIS) P athologist Signature TSH 2.63 0.27 - 4.20 POWERCHART (Thyrotropin) MIUL Specimen (Source) Anatomical Collection Method Collection Time Re ceived Time Location / / Volume Laterality Blood 03/08/2014 8:25 AM SAP BASIS Juve Christiansen APRN, C.N.P., D.N.P. LAB BLOOD ADD- ON Performing Organization Address City/[facility] Code Phon e Number POWERCHART Cortisol (03/08/2014 8:25 AM SAP BASIS) P athologist Signature Cortisol AM 16 7 - 25 POWERCHART Result MCGDL Comment: Test Performed by: [place] [address] Lube Worker: Leanne Jorge Specimen (Source) Anatomical Collection Method Collection Time Re ceived Time Location / / Volume Laterality Blood 03/08/2014 8:25 AM SAP BASIS Juve Christiansen APRN, C.N.P., D.N.P. LAB BLOOD ADD- ON Performing Organization Address City/[facility] Code Phon e Number POWERCHART documented in this encounter Visit Diagnoses Not on filedocumented in this encounter Additional Health Concerns Assessment Noted Time PHQ-9 Depression Total Score: 10 03/11/2013 2:22 PM CS T documented as of this encounter
--- OUTSIDE RECORDS SUMMARY | 2022-02-02 09:27 | XMS_ITS | Encounter Summary ---
:1970 Author Organization [facility] Address [address] [place] [address] Care Team Providers Name Role Phone Unavailable Primary Care Provider Unavailable Encounter Details Date Type Department Care Team Description 03/11/2013 Hospital Encounter [facility] Tiffanie Christiansen, ALVERTO, C.N.P., D. N.P. [address] [place] [address] (Wo rk) Social History Tobacco [...] Comments Blood Pressure 132/86 03/11/2013 2:12 PM CRUST SORTER Pulse 52 03/11/2013 2:12 PM CRUST SORTER Temperature - - Respiratory Rate 16 03/11/2013 2:12 PM CRUST SORTER Oxygen Saturation - - Inhaled Oxygen Concentration - - Weight 85.8 kg (189 lb 2.5 oz) 03/11/2013 2:12 PM CRUST SORTER Height 173 cm (5' 8.11) 03/11/2013 2:12 PM CRUST SORTER Body Mass Index 28.67 03/11/2013 2:12 PM CRUST SORTER documented in this encounter Miscellaneous Notes Miscellaneous - Tiffanie Christiansen D.N.P., C.N.P. - 03/11/2013 4:01 PM CRUST SORTER Ambulatory Patient Summary [id number] [place] [address] Visit Information Name: GERMAN NOVAK [facility] Number: [id number] Current Date: 03/11/2013 16:01:41 Physicians Attending Provider: TIFFANIE CHRISTIANSEN DNP, SPARE FIXER Primary Care Provider: PCP, ELSEWHERE GERMAN NOVAK [...] vasospasm Mrs. Novak was transferred from the [place] emergency department where he initial troponin was 0.06, and a CK-MB was 5.9. [facility]. She was transferred to [facility] for evaluation of her elevation in her cardiac serial biomarkers. Due to her associated symptoms of headache and shortness of breath with the chest pain, a head CT was obtained upon arrival to [facility] and did not reveal any [...] Date Time Location Reason Provider 03/15/2013 14:00 [facility] yearly follow-up Joel Jones MD Attention: Contact your local Clinic if further appointment detail needed. Your Goals/Additional instructions: Source: [facility] POWERCHART Document Id: [id number] T SORTER Miscellaneous - Tiffanie Christiansen D.N.P., C.N.P. - 03/11/2013 4:01 PM CRUST SORTER Ambulatory Depart Summary [id number] [place] [address] Visit Information Name: GERMAN NOVAK [facility] Number: [id number] Visit Date: 03/11/2013 16:01:38 Attending Provider: TIFFANIE CHRISTIANSEN DNP, SPARE FIXER Primary Care Provider: PCP, DESEAN GERMAN NOVAK [...] in case of emergency. Additional Information: Source: [facility] POWERCHART Document Id: [id number] T SORTER Miscellaneous - Francisco Medrano L.P.N. - 03/11/2013 2:12 PM CST Adult Processing Spec Intake/History Adult Processing Spec Intake/History Entered On: 03/11/2013 14:18 CRUST SORTER Performed On: 03/11/2013 14:12 CRUST SORTER by FRANCISCO MEDRANO LPN Intake Chief Complaint [...] 2.03 Body Mass Index : 28.67 kg/m2 FARNCISCO MEDRANO LPN - 03/11/2013 14:12 CRUST SORTER General Info Information Given By : Patient Languages : Tajik FRANCISCO MEDRANO LPN - 03/11/2013 14:12 CRUST SORTER Subjective Pain Symptoms : No FRANCISCO MEDRANO LPN - 03/11/2013 14:12 CRUST SORTER Dependent Habits Tobacco Use/Currently Using : No Tobacco Use/Last 12 months : No Tobacco Use/Advised to Quit : No Exposure to Tobacco Smoke : Care provider denies smoking in home Smoking Status : Former smoker FRANCISCO MEDRANO LPN - 03/11/2013 14:12 CRUST SORTER Tobacco Use Grid Type : Cigarettes Last Use : 04/09/12 FRANCISCO MEDRANO LPN - 03/11/2013 14:12 CRUST SORTER Alcohol Use : Yes FRANCISCO MEDRANO LPN - 03/11/2013 14:12 CRUST SORTER Caffeine Use Grid Caffeine Use : Current Type : Soft drinks Frequency : Daily Amount : 1 FRANCISCO MEDRANO LPN - 03/11/2013 14:12 CRUST SORTER Recreational Drug Use Grid Drug Use : None BERNADINE FRANCISCO Peres LPN - 03/11/2013 14:12 CRUST SORTER Source: [facility] Document Id: [id number] CRUST SORTER!43 T SORTER Miscellaneous - Francisco Medrano L.PSonjaNSonja - 03/11/2013 2:12 PM CST Health Assessment Health Assessment Entered On: 03/11/2013 14:18 CRUST SORTER Performed On: 03/11/2013 14:12 CRUST SORTER by FRANCISCO MEDRANO LPN Health Assessment Complete Health Assessment Complete or Modified : Annual Health Assessment Annual Health Assessment Completed : Yes FRANCISCO MEDRANO LPN - 03/11/2013 14:12 CRUST SORTER Nutrition Nutrition Risk Factors by History Adult : None FRANCISCO MEDRANO LPN - 03/11/2013 14:12 CRUST SORTER Functional Current Daily Living Assistance : None FRANCISCO MEDRANO LPN - 03/11/2013 14:12 CRUST SORTER Dependent Habits Tobacco Use/Currently Using : No Exposure to Tobacco Smoke : Care provider denies smoking in home Smoking Status : Former smoker FRANCISCO MEDRANO LPN - 03/11/2013 14:12 CRUST SORTER Tobacco Use Grid Type : Cigarettes Last Use : 04/09/12 FRANCISCO MEDRANO LPN - 03/11/2013 14:12 CRUST SORTER Caffeine Use Grid Caffeine Use : Current Type : Soft drinks Frequency : Daily Amount : 1 FRANCISCO MEDRANO LPN - 03/11/2013 14:12 CRUST SORTER Recreational Drug Use Grid Drug Use : None FRANCISCO MEDRANO LPN - 03/11/2013 14:12 CRUST SORTER Psychosocial Domestic Abuse Concerns : None FRANCISCO MEDRANO LPN - 03/11/2013 14:12 CRUST SORTER Advance Directive Advanced Directives : No Advance Directive Additional Information : No FRANCISCO MEDRANO LPN - 03/11/2013 14:12 CRUST SORTER Educ Needs Learning Style Preference Adult Grid Patient : None Family : None FRANCISCO MEDRANO LPN - 03/11/2013 14:12 CRUST SORTER [facility] Document Id: [id number] CRUST SORTER!34 T SORTER documented in this encounter Plan of Treatment Not on filedocumented as of this encounter Visit Diagnoses Not on filedocumented in this encounter Additional Health Concerns Assessment Noted Time PHQ-9 Depression Total Score: 10 03/11/2013 2:22 PM CS T documented as of this encounter
--- OUTSIDE RECORDS SUMMARY | 2022-02-02 09:27 | XMS_ITS | Encounter Summary ---
:1970 Author Organization [facility] Address [address] [place] [address] Care Team Providers Name Role Phone Unavailable Primary Care Provider Unavailable Encounter Details Date Type Department Care Team Description 08/09/2009 Hospital Encounter HX [facility] INPT/OBSRV Debi Baez P.A.-C., P.A. [address] [place] [address] (Wo rk) Social History Tobacco [...]
--- OUTSIDE RECORDS SUMMARY | 2022-02-02 09:27 | XMS_ITS | Encounter Summary ---
:1970 Author Organization [facility] Address [address] [place] [address] Care Team Providers Name Role Phone Unavailable [...] or relatives? How often do you attend scientology or More than 4 times per year 06/22/2019 temple services? Do you belong to any clubs or No 06/22/2019 organizations such as scientology groups, unions, fraternal or athletic groups, or [...]
--- OUTSIDE RECORDS SUMMARY | 2022-02-02 09:27 | XMS_ITS | Encounter Summary ---
:1970 Author Organization [facility] Address [address] [place] [address] Care Team Providers Name Role Phone Unavailable Primary Care Provider Unavailable Encounter Details Date Type Department Care Team Description 03/11/2013 Hospital Encounter [facility] Karen Fernandez, ALVERTO, C.N.P., D. N.P. [address] [phone] (Wo rk) Social History Tobacco Use [...] or relatives? How often do you attend anabaptism or More than 4 times per year 06/22/2019 hindu services? Do you belong to any clubs or No 06/22/2019 organizations such as anabaptism groups, unions, fraternal or athletic groups, or [...]
--- OUTSIDE RECORDS SUMMARY | 2022-02-02 09:27 | XMS_ITS | Encounter Summary ---
:1970 Author Organization [facility] Address [address] [place] [address] Care Team Providers Name Role Phone Unavailable Primary Care Provider Unavailable Encounter Details Date Type Department Care Team Description 08/29/2010 Hospital Encounter HX [facility] Linda Martinez M.D. [address] [place] [address] ERNESTO Ramirez [phone] (Wo rk) Social History Tobacco Use Types [...] encounter Miscellaneous Notes Miscellaneous - Cj Miner L.P.NSonja - 08/29/2010 10:39 AM CDT Ambulatory Vitals [...] MINER LPN - 08/29/2010 10:39 CDT [facility] Document Id: [id number] CDT!8 documented in this encounter Plan of Treatment Not on filedocumented as of this encounter Visit Diagnoses Not on filedocumented in this encounter
--- OUTSIDE RECORDS SUMMARY | 2022-02-02 09:27 | XMS_ITS | Encounter Summary ---
:1970 Author Organization [facility] Address [address] [place] [address] Care Team Providers Name Role Phone Unavailable Primary Care Provider Unavailable Encounter Details Date Type Department Care Team Description 06/21/2009 Hospital Encounter HX [facility] INPT/OBSRV Alaina Larkin P.A.-C. [address] [place] [address] (Wo rk) Social History Tobacco [...]
--- OUTSIDE RECORDS SUMMARY | 2022-02-02 09:27 | XMS_ITS | Encounter Summary ---
:1970 Author Organization [facility] Address [address] [place] [address] Care Team Providers Name Role Phone Unavailable Primary Care Provider Unavailable Encounter Details Date Type Department Care Team Description 07/30/2012 Hospital Encounter HX [facility] Nestor, Javan tsang P.A.-C., P.A. [address] [place] [address] (Wo rk) Social History Tobacco [...] Body Mass Index 27.67 04/24/2012 9:04 AM DIRECTOR OF OUTREACH documented in this encounter Progress Notes Estephanie Ellington - 07/30/2012 5:20 PM CDT [id number] CHIEF COMPLAINT/REASON FOR VISIT This is a 41-year-old female seen today concerned of dog scratches on her left forearm. HISTORY OF PRESENT ILLNESS She states that she was scratched yesterday. 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 Estephanie Ellington P.A.-C./altasha Electronically Signed By: ESTEPHANIE ELLINGTON On: 08/04/2012 12:11 PM Source: [facility] MHSDOLBEYNONRADSYS Document Id: [id number] documented in this encounter Miscellaneous Notes Miscellaneous - Estephanie Ellington - 07/30/2012 7:58 PM CDT Ambulatory Patient Summary [address] [place] [address] Visit Information Name: GERMAN NOVAK [facility] Number: [id number] Current Date: 07/30/2012 19:58:15 Physicians Attending Provider: ESTEPHANIE ELLINGTON Primary Care Provider: LAVELL BUCHANAN RN, AUTO TECHNICIAN MECHANIC Your Medications Here is a list of [...] No Appointments found Your Goals/Additional instructions: Source: [facility] POWERCHART Document Id: [id number] Miscellaneous - Estephanie Ellington - 07/30/2012 7:58 PM CDT Ambulatory Depart Summary [address] [place] [address] Visit Information Name: GERMAN NOVAK [facility] Number: [id number] Visit Date: 07/30/2012 19:58:14 Attending Provider: ESTEPHANIE ELLINGTON Primary Care Provider: LAVELL BUCHANAN RN, AUTO TECHNICIAN MECHANIC GERMAN NOVAK has been given the following [...] your provider for clarification. Additional Information: Source: [facility] POWERCHART Document Id: [id number] Miscellaneous - Lori Coyle, LSonjaP.N. - 07/30/2012 5:33 PM CDT Adult Supervisor Correspondence Section Intake/History Adult Supervisor Correspondence Section Intake/History Entered On: 07/30/2012 17:36 CDT Performed On: 07/30/2012 17:33 CDT by LORI GOYAL ENVIRONMENTAL REMEDIATION CONSULTANT Intake Chief Complaint : scratched yesterday on [...] scale Dosing Weight Clinic : 82.8 kg JAY JAY LORI Marie [facility] 07/30/2012 17:33 CDT General Info Information Given By : Patient Languages : Albanian KAITY GOYALJENNIFER Marie [facility] 07/30/2012 17:33 CDT Subjective Pain Symptoms : Yes LORI GOYAL [facility] 07/30/2012 17:33 CDT Pain Pain Assessment Grid Pain 1 Location : Other: left forearm Intensity : 1 JAY JAY LORI Marie [facility] - 07/30/2012 17:33 CDT Dependent Habits Tobacco Use/Currently Using : No Exposure to Tobacco Smoke : Care provider denies smoking in home Smoking Status : Former smoker LORI GOYAL [facility] - 07/30/2012 17:33 CDT Tobacco Use Grid Type : Cigarettes Last Use : 04/09/12 LORI GOYAL [facility] 07/30/2012 17:33 CDT Alcohol Use : Yes LORI GOYAL [facility] - 07/30/2012 17:33 CDT Caffeine Use Grid Caffeine Use : Current Type : Soft drinks Frequency : Daily Amount : 1 LORI GOYAL [facility] - 07/30/2012 17:33 CDT Recreational Drug Use Grid Drug Use : None LORI GOYAL [facility] 07/30/2012 17:33 CDT Source: [employer] Document Id: [id number] CDT!45 documented in this encounter Plan of Treatment Not on filedocumented as of this encounter Visit Diagnoses Not on filedocumented in this encounter Additional Health Concerns Assessment Noted Time PHQ-9 Depression Total Score: 4 04/24/2012 3:07 PM DIRECTOR OF OUTREACH documented as of this encounter
--- OUTSIDE RECORDS SUMMARY | 2022-02-02 09:27 | XMS_ITS | Encounter Summary ---
:1970 Author Organization [facility] Address [address] [place] [address] Care Team Providers Name Role Phone Unavailable Primary Care Provider Unavailable Encounter Details Date Type Department Care Team Description 09/14/2007 Hospital Encounter HX [facility] INPT/OBSRV Morelia Reynoso M.D. [address] [place], [place] [address] (Wo rk) Social History [...]
--- OUTSIDE RECORDS SUMMARY | 2022-02-02 09:27 | XMS_ITS | Encounter Summary ---
:1970 Author Organization [facility] Address [address] [place] [address] Care Team Providers Name Role Phone Unavailable Primary Care Provider Unavailable Encounter Details Date Type Department Care Team Description 02/03/2012 Hospital Encounter HX NO MAPPING Akanksha Ladd M.D. [address] [place], [place] [phone] (Wo rk) Social History [...] Comments Blood Pressure 122/80 02/03/2012 2:52 PM FIELD MECHANIC Pulse 60 02/03/2012 2:52 PM FIELD MECHANIC Temperature - - Respiratory Rate - - Oxygen Saturation - - Inhaled Oxygen Concentration - - Weight 84.6 kg (186 lb 8.2 oz) 02/03/2012 2:52 PM FIELD MECHANIC Height 172 cm (5' 7.72) 02/03/2012 2:52 PM FIELD MECHANIC Body Mass Index 28.6 02/03/2012 2:52 PM FIELD MECHANIC documented in this encounter Consult Notes Joel [...] with her family. 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 No use of tobacco or alcohol. [...] LADD MD On: 06/29/2012 03:19 PM Source: [facility] MHSDOLBEYNONRADSYS Document Id: [id number] documented in this encounter Miscellaneous Notes Miscellaneous - Maxime Varghese R.N. - 02/03/2012 2:52 PM CST Adult Talent Acquisition Administrator Intake/History Adult Talent Acquisition Administrator Intake/History Entered On: 02/03/2012 14:55 FIELD MECHANIC Performed On: 02/03/2012 14:52 FIELD MECHANIC by MAXIME VARGHESE RN Intake Chief Complaint [...] 28.60kg/m2 MAXIME VARGHESE RN - 02/03/2012 14:52 FIELD MECHANIC General Info Information Given By : Patient Preferred Communication Mode : Verbal MAXIME VARGHESE RN - 02/03/2012 14:52 FIELD MECHANIC Subjective Pain Symptoms : No MAXIME VARGHESE RN - 02/03/2012 14:52 FIELD MECHANIC Dependent Habits Tobacco Use/Currently Using : No Smoking Status : Former smoker MAXIME VARGHESE RN - 02/03/2012 14:52 FIELD MECHANIC Tobacco Use Grid Type : Cigarettes Last Use : 06/18/2010 MAXIME VARGHESE RN - 02/03/2012 14:52 FIELD MECHANIC Alcohol Use : Yes MAXIME VARGHESE RN - 02/03/2012 14:52 FIELD MECHANIC Caffeine Use Grid Caffeine Use : Current Type : Soft drinks Frequency : Daily Amount : 1 MAXIME VARGHESE RN - 02/03/2012 14:52 FIELD MECHANIC Allergy Allergies (Active) morphine Estimated Onset Date: Unspecified ; Created By: RAVEN DELUNA LPN; Reaction Status: Active ; Category: Drug ; Substance: morphine ; Type: Allergy ; Updated By: RAVEN DELUNA LPN; Reviewed Date: 02/03/2012 14:52 FIELD MECHANIC narcotic analgesics Estimated Onset Date: Unspecified ; Reactions: itch ; Created By: NELLIE JOHNSON RN; Reaction Status: Active ; Category: Drug ; Substance: narcotic analgesics ; Type: Sensitivity ; Updated By: NELLIE JOHNSON RN; Reviewed Date: 02/03/2012 14:52 FIELD MECHANIC Percocet 5/325 Estimated Onset Date: Unspecified ; Created By: RAVEN DELUNA LPN; Reaction Status:Active ; Category: Drug ; Substance: Percocet 5/325 ; Type: Allergy ; Updated By: RAVEN DELUNA LPN; Reviewed Date: 02/03/2012 14:52 FIELD MECHANIC Toradol Estimated Onset Date: Unspecified ; Created By: RAVEN DELUNA LPN; Reaction Status: Active; Category: Drug ; Substance: Toradol ; Type: Allergy ; Updated By: RAVEN DELUNA LPN; Reviewed Date: 02/03/2012 14:52 FIELD MECHANIC Source: [facility] [employer] Document Id: [id number] D MECHANIC documented in this encounter Plan of Treatment Not on filedocumented as of this encounter Visit Diagnoses Not on filedocumented in this encounter
--- OUTSIDE RECORDS SUMMARY | 2022-02-02 09:27 | XMS_ITS | Encounter Summary ---
:1970 Author Organization [facility] Address [address] [place] [address] Care Team Providers Name Role Phone Unavailable Primary Care Provider Unavailable Encounter Details Date Type Department Care Team Description 10/28/2007 Hospital Encounter HX [facility] Yonas Lopez, INPT/OBSRV M.D. [address] [place] [phone] (Wo rk) Social [...]
--- OUTSIDE RECORDS SUMMARY | 2022-02-02 09:27 | XMS_ITS | Encounter Summary ---
:1970 Author Organization [facility] Address [address] [place] [address] Care Team Providers Name Role Phone Unavailable Primary Care Provider Unavailable Encounter Details Date Type Department Care Team Description 06/19/2010 Hospital Encounter HX [facility] Radha Lopez, INPT/OBSRV M.D. [address] [place] [phone] (Wo rk) Social [...] ARREOLA RN DC Information Discharged to: Other: [facility] Mode of Discharge: Stretcher Discharge Transportation: Ground ambulance Accompanied By: Other: ems Report called to: transfered to [facility] Transfer forms sent with: all emtla paers with and labs and drugs given Date/Time of Discharge: 06/19/2010 16:20 CDT LEA ARREOLA RN - 06/19/2010 16:33 CDT Source: [facility] POWERCHART Document Id: [id number] CDT!9 Lea Arreola R.N. - 06/19/2010 4:32 PM CDT Discharge Summary Discharge Summary Entered On: 06/19/2010 16:33 CDT Performed On: 06/19/2010 16:32 CDT by LEA ARREOLA RN DC Information Date/Time of Discharge: 06/19/2010 16:20 CDT LEA ARREOLA RN - 06/19/2010 16:32 CDT Source: [facility] [employer] Document Id: [id number] CDT!3 Nellie Jerez R.N. - 06/19/2010 10:23 AM CDT ED Discharge Instructions [address] [address] Name: GERMAN NOVAK Date of : 1970 12:00 AM Visit Date: 06/19/2010 8:54 AM Address: [address] [place] [phone] Primary Care Provider: RADHA VALDERRAMA MD IMPORTANT: [facility] would like to thank you for allowing [...] nurse or physician. Patient Signature or Responsible Republican Date/Time Provider Signature Date/Time Medication Reconciliation: Reconciliation [...] nurse or physician. Patient Signature or Responsible Republican Date/Time Provider Signature Date/Time Source: [employer] Document Id: [id number] Nellie Jerez R.N. - 06/19/2010 10:23 AM CDT ED Depart Summary [facility] Emergency Department Clinical Discharge Summary PERSON INFORMATION Name GERMAN NOVAK Age 39 Years 1970 12:00 AM Sex Female Language PCP RADHA VALDERRAMA MD Marital Status Visit Id Visit Reason Chest pain; chest pain Specialty Enc Type Emergency Med Service Emergency Medicine Referred by Track Group [facility] ED Discharge Tracking Id [id number] Checkout 06/19/2010 10:23 AM Checkin 06/19/2010 8:54 AM Acuity 2 -Emergent Dispo Type Admitted as Inpatient to this Hospital Arrival 06/19/2010 8:54 AM Reg Status LOS 000 01:29 Address: [address] [place] [phone] Comment: PROVIDER INFORMATION DIAGNOSIS Comment: PATIENT EDUCATION INFORMATION Instructions: Follow up: Source: [employer] Document Id: [id number] documented in this encounter H&P Notes Radha Valderrama M.D. - 06/19/2010 12:00 AM CDT [id number] IMPRESSION/REPORT/PLAN DIAGNOSTICS: An EKG is done which [...] per week. 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 She is exposed to significant allergens. [...] RADHA VALDERRAMA MD On: 06/19/2010 04:00 Source: [facility] MHSDOLBEYNONRADSYS Document Id: [id number] documented in this encounter Nursing Notes Lea Arreola R.N. - 06/19/2010 4:27 PM CDT transfer to [facility] Pt left to [facility] after cardicac emzymes 2 draw done hepain started and nitro fusion going pt explaoned poc and family present oxygen on at 4 liters monitor was nsr left at 1620 [facility] ambulance to er Source: [facility] [employer] Document Id: [id number] Lea Arreola R.N. - 06/19/2010 10:02 AM CDT PRN Response PRN Response Entered On: 06/19/2010 10:09 CDT Performed On: 06/19/2010 10:02 CDT by LEA ARREOLA RN PRN Medication Effectiveness Evaluation PRN Medication Effective: Yes Post Medication Pain Assessment: 6 LEA ARREOLA RN - 06/19/2010 10:08 CDT Source: [employer] Document Id: [id number] CDT!4 Lea Arreola R.N. - 06/19/2010 9:38 AM CDT PRN Response PRN Response Entered On: 06/19/2010 10:08 CDT Performed On: 06/19/2010 9:38 CDT by LEA ARREOLA RN PRN Medication Effectiveness Evaluation PRN Medication Effective: Yes Post Medication Pain Assessment: 8 LEA ARREOLA RN - 06/19/2010 10:08 CDT [facility] Document Id: [id number] CDT!4 Nellie Jerez R.N. - 06/19/2010 9:31 [...] JEREZ RN - 06/19/2010 9:31 CDT Source: [employer] Document Id: [id number] CDT!26 Nellie Jerez R.N. - 06/19/2010 9:21 [...] PNED ; Probability: 0 ; Diagnosis Code: [id number] Triage Chief Complaint Description: 39 year old female presents to er c/o left sided chest pain and sudden severe headache Information Given By: Patient, Spouse Accompanied By: Spouse Mode of Arrival ED: Private vehicle Track: Medical Languages: Kosovan Pain Symptoms: Yes Pain Medication Requested: No [...] NELLIE JEREZ RN - 06/19/2010 9:21 CDT [place] Eye Opening Response Maame: Spontaneously Best Verbal Response [place]: Oriented Best Motor Response Maame: Obeys simple commands Ma[place] Score: 15 NELLIE JEREZ RN - 06/19/2010 9:21 CDT ED Physician Notification Time ED Physician Notification Time: 06/19/2010 8:50 CDT NELLIE JEREZ RN - 06/19/2010 9:21 CDT SAEED DCP GENERIC CODE Tracking Acuity: 2 -Emergent Tracking Group: [facility] ED NELLIE JEREZ RN - 06/19/2010 9:21 [...] JEREZ RN - 06/19/2010 9:21 CDT Source: [employer] Document Id: [id number] CDT!105 Nellie Jerez R.Morelia. - 06/19/2010 9:15 AM CDT ED Pain [...] JEREZ RN - 06/19/2010 9:15 CDT Source: [employer] Document Id: [id number] CDT!26 Nellie Jerez RJayla - 06/19/2010 8:55 [...] JEREZ RN - 06/19/2010 9:13 CDT Source: [employer] Document Id: [id number] CDT!26 documented in this encounter ED Notes Nellie Jerez R.N. - 06/19/2010 10:21 AM CDT ED Treatments and Procedures ED Treatments and Procedures Entered On: 06/19/2010 10:21 CDT Performed On: 06/19/2010 10:21 CDT by NELLIE JEREZ RN Oxygen Therapy Oxygen Start Time: 06/19/2010 8:50 CDT Oxygen Therapy: Nasal Cannula Oxygen Stop Time: 06/19/2010 10:21 CDT Oxygen Flow Rate: 4.000L/min NELLIE JEREZ RN - 06/19/2010 10:21 CDT Source: [employer] Document Id: [id number] CDT!6 Radha Valderrama M.D. 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 Physical Examination Vital [...] pain, dyspnea, chest pain R/o PE or CA. Electrocardiogram:The Rhythm is sinus. , The [place] is normal. , STT segments Non specific [...] % 50.9 % Lymph % 35.9 % [place] % 6.2 % Eos % 6.0 % [...] Dyspnea 786.09 (Discharge, Emergency medicine, Medical) Source: [facility] [employer] Document Id: [id number]} documented in this encounter Miscellaneous Notes Miscellaneous - Lea Arreola R.N. - 06/19/2010 4:33 PM CDT Valuables/Belongings Valuables/Belongings Entered On: 06/19/2010 16:33 CDT Performed On: 06/19/2010 16:33 CDT by LEA ARREOLA RN Valuables/Belongings Home Medication Disposition: Sent home with family LEA ARREOLA RN - 06/19/2010 16:33 CDT Source: [employer] Document Id: [id number] CDT!3 Miscellaneous - Lea Arreola RJayla - [...] ARREOLA RN - 06/19/2010 13:35 CDT Source: [employer] Document Id: [id number] CDT!27 Miscellaneous - Nellie Jerez R.N. - 06/19/2010 11:16 AM CDT Adult Admission History Adult Admission History Entered On: 06/19/2010 11:32 CDT Performed On: 06/19/2010 11:16 CDT by NELLIE JEREZ RN General Info Preferred Name: German Mode of Arrival: Cart Accompanied By: Spouse Preferred Communication Mode: Verbal Information Given By: Patient Languages: Kosovan Status: Patient denies NELLIE JEREZ RN - [...] RN;Confirmation: Confirmed ; Classification: Nursing ; Code: 798686 ; Contributor System: [employer] ; Last Updated: 06/18/2010 19:00 CDT ; Life Cycle Date: Unknown ; Life Cycle Status: Active ; Vocabulary: SNOMED CT Diagnoses(Active) Chest pain Date: 06/19/2010 9:07 CDT ; Diagnosis Type: Reason For Visit ; Confirmation: Confirmed ; Classification: Medical ; Clinical Service: Emergency medicine ; Code: PNED ; Probability: 0 ; Diagnosis Code: [id number] Chest pain 786.5 Date: 06/19/2010 11:02 CDT [...] Organism: No NELLIE JEREZ RN - 06/19/2010 11:16 CDT Nutrition Nutrition [...] JEREZ RN - 06/19/2010 11:16 CDT [facility] Document Id: [id number] CDT!86 Miscellaneous - Nellie Jerez R.N. - [...] pressure Heart Rhythm: Regular Nail Bed Color: [place] Capillary Refill: Less than 2 seconds Edema: [...] Verbal Response Maame: Oriented Best Motor Response Maame: Obeys simple [...] Genitourinary Patient Stated Symptoms: None NELLIE JEREZ RN - 06/19/2010 11:12 CDT Integumentary Integumentary Patient [...] JEREZ RN - 06/19/2010 11:12 CDT Source: [employer] Document Id: [id number] CDT!111 Miscellaneous - Nellie Jerez RJayla - [...] JEREZ RN - 06/19/2010 11:10 CDT Source: [employer] Document Id: [id number] CDT!11 Miscellaneous - Lea Arreola R.N. - 06/19/2010 10:11 AM CDT Valuables/Belongings Valuables/Belongings Entered On: 06/19/2010 10:11 CDT Performed On: 06/19/2010 10:11 CDT by LEA ARREOLA RN Valuables/Belongings Home Medication Disposition: Sent home with family LEA ARREOLA RN - 06/19/2010 10:11 CDT Source: [employer] Document Id: [id number] CDT!3 Miscellaneous - Nellie Jerez RJayla - [...] JEREZ RN - 06/19/2010 11:32 CDT Source: [employer] Document Id: [id number] CDT!14 Miscellaneous - Lea Arreola RSonjaNSonja - 06/19/2010 8:54 AM CDT Facility Charge [...] with Diagnosis Control: 20 Lynx Visit Level: 53519 Level 5 LEA ARREOLA RN - 06/19/2010 10:11 CDT Source: [employer] Document Id: [id number] CDT!12 documented in this encounter Plan of Treatment Not on filedocumented as of this encounter Visit Diagnoses Not on filedocumented in this encounter
--- OUTSIDE RECORDS SUMMARY | 2022-02-02 09:27 | XMS_ITS | Encounter Summary ---
:1970 Author Organization [facility] Address [address] [place] [address] Care Team Providers Name Role Phone Unavailable Primary Care Provider Unavailable Encounter Details Date Type Department Care Team Description 01/07/2011 Hospital Encounter HX NO MAPPING Akanksha Ladd M.D. [address] [place], [place] [phone] (Wo rk) Social History [...] home with her family. 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 No use of tobacco or alcohol. FAMILY [...] LADD MD On: 06/13/2011 09:42 AM Source: [facility] MHSDOLBEYNONRADSYS Document Id: [id number] documented in this encounter Miscellaneous Notes Miscellaneous - Maxime Varghese R.N. - 01/07/2011 1:50 PM CDT Adult Wind Technician Intake/History Adult Wind Technician Intake/History Entered On: 01/07/2011 13:55 CDT Performed On: 01/07/2011 13:50 CDT by MAXIME VARGHESE pinsetter mechanic helper Chief Complaint : Here for follow -up [...] Preferred Communication Mode : Verbal Languages : Tristanian MAXIME VARGHESE RN - 01/07/2011 13:50 CDT [...] VARGHESE RN - 01/07/2011 13:50 CDT Source: [facility] POWERCHART Document Id: [id number] CDT!54 documented in this encounter Plan of Treatment Not on filedocumented as of this encounter Visit Diagnoses Not on filedocumented in this encounter
--- OUTSIDE RECORDS SUMMARY | 2022-02-02 09:27 | XMS_ITS | Encounter Summary ---
:1970 Author Organization [facility] Address [address] [place] [address] Care Team Providers Name Role Phone Unavailable Primary Care Provider Unavailable Encounter Details Date Type Department Care Team Description 02/14/2012 Hospital Encounter HX [facility] Molly Llanes M.D. [address] [place] [address] Rogelio Guerrero ERNESTO [id number] (Wo rk) Social [...] Comments Blood Pressure 120/74 02/14/2012 1:18 PM DENTAL OFFICE COORDINATOR Pulse 68 02/14/2012 1:18 PM DENTAL OFFICE COORDINATOR Temperature - - Respiratory Rate 16 02/14/2012 1:18 PM DENTAL OFFICE COORDINATOR Oxygen Saturation - - Inhaled Oxygen Concentration - - Weight 84.2 kg (185 lb 10 oz) 02/14/2012 1:18 PM DENTAL OFFICE COORDINATOR Height 173.3 cm (5' 8.23) 02/14/2012 1:18 PM DENTAL OFFICE COORDINATOR Body Mass Index 28.04 02/14/2012 1:18 PM DENTAL OFFICE COORDINATOR documented in this encounter Progress Notes Molly Gomez M.D. - 02/14/2012 1:11 PM CST [id number] CHIEF COMPLAINT/REASON FOR VISIT 1. Follow-up labs. 2. Right skin lesion. HISTORY OF PRESENT ILLNESS German is a 41-year-old female who recently saw her booker and had some complaints about hot flashes, [...] has noticed a mole in her right adventism in the hairline for awhile now and [...] acute distress. SKIN: In the patient's right adventism there is a well-circumscribed, minimally asymmetric, mildly [...] effect. 2. Suspect seborrheic keratosis to right adventism. At this time I think this lesion [...] plan Patient/Child/Caregiver expressed understanding of the content Molly Manzo M.D./[facility] Electronically Signed By: MOLLY MONTIEL MD On: 02/20/2012 09:48 AM Modified by and Electronically Signed by: MOLLY MONTIEL MD On: 02/20/2012 09:48 AM Source: [facility] MHSDOLBEYNONRADSYS Document Id: [id number] AL OFFICE COORDINATOR documented in this encounter Miscellaneous Notes Miscellaneous - Molly Gomez M.D. - 02/14/2012 1:52 PM DENTAL OFFICE COORDINATOR Ambulatory Patient Summary [address] [address] Visit Information Name: GERMAN NOVAK [facility] Number: [id number] Current Date: 02/14/2012 13:52:23 Physicians Attending Provider: MOLLY MONTIEL MD Primary Care Provider: LAVELL BUCHANAN RN, TILE DESIGNER Your Medications Here is a list of [...] No Appointments found Your Goals/Additional instructions: Source: [facility] P[facility]CHART Document Id: [id number] AL OFFICE COORDINATOR Miscellaneous - Molly Gomez M.D. - 02/14/2012 1:52 PM DENTAL OFFICE COORDINATOR Ambulatory Depart Summary [address] [address] Visit Information Name: GERMAN NOVAK [facility] Number: [id number] Visit Date: 02/14/2012 13:52:22 Attending Provider: MOLLY MONTIEL MD Primary Care Provider: LAVELL BUCHANAN RN, TILE DESIGNER GERMAN NOVAK has been given the following [...] your provider for clarification. Additional Information: Source: [facility] Document Id: [id number] AL OFFICE COORDINATOR Miscellaneous - Molly Gomez M.D. - 02/14/2012 1:41 PM DENTAL OFFICE COORDINATOR PHQ-9 PHQ-9 Entered On: 02/14/2012 13:43 DENTAL OFFICE COORDINATOR Performed On: 02/14/2012 13:41 DENTAL OFFICE COORDINATOR by MOLLY MONTIEL MD PHQ-9 Little interest or pleasure [...] or dealing with others : Somewhat difficult MOLLY MONTIEL MD - 02/14/2012 13:41 DENTAL OFFICE COORDINATOR Source: [facility] Document Id: [id number] AL OFFICE COORDINATOR Miscellaneous - Francisco Medrano L.PSonjaNSonja - 02/14/2012 1:18 PM CST Adult [employer] [place] Intake/History Adult [employer] [place] Intake/History Entered On: 02/14/2012 13:23 DENTAL OFFICE COORDINATOR Performed On: 02/14/2012 13:18 DENTAL OFFICE COORDINATOR by FRANCISCO MEDRANO LPN Intake Chief Complaint : Go [...] : 2.01 Body Mass Index : 28.04kg/m2 FRANCISCO MEDRANO LPN - 02/14/2012 13:18 DENTAL OFFICE COORDINATOR Subjective Pain Symptoms : No FRANCISCO MEDRANO LPN - 02/14/2012 13:18 DENTAL OFFICE COORDINATOR Dependent Habits Tobacco Use/Currently Using : No Tobacco Use/Last 12 months : No Tobacco Use/Advised to Quit : No Exposure to Tobacco Smoke : Care provider denies smoking in home Smoking Status : Former smoker FRANCISCO MEDRANO LPN - 02/14/2012 13:18 DENTAL OFFICE COORDINATOR Tobacco Use Grid Type : Cigarettes Last Use : 06/18/2010 FRANCISCO MEDRANO LPN - 02/14/2012 13:18 DENTAL OFFICE COORDINATOR Alcohol Use : Yes FRANCISCO MEDRANO LPN - 02/14/2012 13:18 DENTAL OFFICE COORDINATOR Caffeine Use Grid Caffeine Use : Current Type : Soft drinks Frequency : Daily Amount : 1 FRANCISCO MEDRANO LPN - 02/14/2012 13:18 DENTAL OFFICE COORDINATOR Recreational Drug Use Grid Drug Use : None FRANCISCO MEDRANO LPN - 02/14/2012 13:18 DENTAL OFFICE COORDINATOR Allergy Allergies (Active) morphine Estimated Onset Date: Unspecified ; Created By: RAVEN DELUNA LPN; Reaction Status: Active ; Category: Drug ; Substance: morphine ; Type: Allergy ; Updated By: RAVEN DELUNA LPN; Reviewed Date: 02/14/2012 13:17 DENTAL OFFICE COORDINATOR narcotic analgesics Estimated Onset Date: Unspecified ; Reactions: itch ; Created By: NELLIE JOHNSON RN; Reaction Status: Active ; Category: Drug ; Substance: narcotic analgesics ; Type: Sensitivity ; Updated By: NELLIE JOHNSON RN; Reviewed Date: 02/14/2012 13:17 DENTAL OFFICE COORDINATOR Percocet 5/325 Estimated Onset Date: Unspecified ; Created By: RAVEN DELUNA LPN; Reaction Status:Active ; Category: Drug ; Substance: Percocet 5/325 ; Type: Allergy ; Updated By: RAVEN DELUNA LPN; Reviewed Date: 02/14/2012 13:17 DENTAL OFFICE COORDINATOR Toradol Estimated Onset Date: Unspecified ; Created By: RAVEN DELUNA LPN; Reaction Status: Active; Category: Drug ; Substance: Toradol ; Type: Allergy ; Updated By: RAVEN DELUNA LPN; Reviewed Date: 02/14/2012 13:17 DENTAL OFFICE COORDINATOR Source: [facility] [employer] Document Id: [id number] AL OFFICE COORDINATOR Miscellaneous - Francisco Medrano L.P.NSonja - 02/14/2012 1:18 PM CST Health Assessment Health Assessment Entered On: 02/14/2012 13:24 DENTAL OFFICE COORDINATOR Performed On: 02/14/2012 13:18 DENTAL OFFICE COORDINATOR by FRANCISCO MEDRANO LPN Health Assessment Complete Health Assessment Complete or Modified : Annual Health Assessment Annual Health Assessment Completed : Yes FRANCISCO MEDRANO LPN - 02/14/2012 13:18 DENTAL OFFICE COORDINATOR Nutrition Nutrition Risk Factors by History Adult : None FRANCISCO MEDRANO LPN - 02/14/2012 13:18 DENTAL OFFICE COORDINATOR Functional Current Daily Living Assistance : None FRANCISCO MEDRANO LPN - 02/14/2012 13:18 DENTAL OFFICE COORDINATOR Dependent Habits Tobacco Use/Currently Using : No Smoking Status : Former smoker FRANCISCO MEDRANO LPN - 02/14/2012 13:18 DENTAL OFFICE COORDINATOR Tobacco Use Grid Type : Cigarettes Last Use : 06/18/2010 FRANCISCO MEDRANO LPN - 02/14/2012 13:18 DENTAL OFFICE COORDINATOR Caffeine Use Grid Caffeine Use : Current Type : Soft drinks Frequency : Daily Amount : 1 FRANCISCO MEDRANO LPN - 02/14/2012 13:18 DENTAL OFFICE COORDINATOR Psychosocial Domestic Abuse Concerns : None FRANCISCO MEDRANO LPN - 02/14/2012 13:18 DENTAL OFFICE COORDINATOR Advance Directive Advanced Directives : No FRANCISCO MEDRANO LPN - 02/14/2012 13:18 DENTAL OFFICE COORDINATOR Educ Needs Learning Style Preference Adult Grid Patient : None Family : None FRANCISCO MEDRANO LPN - 02/14/2012 13:18 DENTAL OFFICE COORDINATOR [facility] Document Id: [id number] AL OFFICE COORDINATOR documented in this encounter Plan of Treatment Not on filedocumented as of this encounter Visit Diagnoses Not on filedocumented in this encounter Additional Health Concerns Assessment Noted Time PHQ-9 Depression Total Score: 15 02/14/2012 1:41 PM CS T documented as of this encounter"
--- OUTSIDE RECORDS SUMMARY | 2022-02-02 09:27 | XMS_ITS | Encounter Summary ---
:1970 Author Organization [facility] Address [address] [place] [address] Care Team Providers Name Role Phone Unavailable Primary Care Provider Unavailable Encounter Details Date Type Department Care Team Description 04/10/2012 Hospital Encounter HX [facility] ED Chris Cardenas M.D. [address] [place] [address] ERNESTO Ramirez [phone] (Wo rk) Social History Tobacco Use Types [...] More than 4 times per year 06/22/2019 rastafarian services? Do you belong to any clubs [...] Comments Blood Pressure 127/86 04/10/2012 1:21 PM INDUSTRIAL ECONOMICS TEACHER Pulse - - Temperature - - Respiratory Rate 20 04/10/2012 1:21 PM INDUSTRIAL ECONOMICS TEACHER Oxygen Saturation - - Inhaled Oxygen Concentration - - Weight 92.8 kg (204 lb 9.4 oz) 04/10/2012 10:00 AM INDUSTRIAL ECONOMICS TEACHER Height 173 cm (5' 8.11) 04/10/2012 10:00 AM INDUSTRIAL ECONOMICS TEACHER Body Mass Index 31.01 04/10/2012 10:00 AM INDUSTRIAL ECONOMICS TEACHER documented in this encounter Discharge Summaries Valarie Centeno RSonjaN. - 04/10/2012 1:34 PM CST ED Discharge Instructions [address] [address] Name: GERMAN NOVAK Date of : 1970 12:00 AM Visit Date: 04/10/2012 9:53 AM [facility] Number: [id number] Address: [address] [place] [phone] Primary Care Provider: LAVELL BUCHANAN RN, MOTION PICTURE PROJECTIONIST APPRENTICE IMPORTANT: [facility] in [place] would like to thank you for allowing us to assist you with your healthcare needs. The following includes patient education materials and informationregarding your injury/illness. Chief Complaint: Chest pain; HEART Follow-Up Instructions: With: Address: When: LAVELL BUCHANAN [address] [place] [address] Business (1) Within As Needed Comments: Patient Education Materials: [id number] CHEST PAIN, NONCARDIAC Based on your visit [...] pain or redness in one leg ?? [id number] [employer], [address] [place] [address], [place] [address]. All rights reserved. This information is not [...] Republican/Relationship Date Time Provider Signature Date Time Medication [...] Republican/Relationship Date Time Provider Signature Date Time This document has images extracted. Please consider using [employer] for all your patient education needs. Source: [facility] [employer] Document Id: [id number] STRIAL ECONOMICS TEACHER Valarie Centeno R.N. - 04/10/2012 1:34 PM CST ED Depart Summary [facility] Emergency Department Clinical Discharge Summary PERSON INFORMATION Name GERMAN NOVAK Age 41 Years 1970 12:00 AM Sex Female Language Citizen Of [place] PCP LAVELL BUCHANAN RN, MOTION PICTURE PROJECTIONIST APPRENTICE Marital Status Visit Id Visit Reason Chest pain; HEART Specialty Enc Type Emergency Med Service Emergency Medicine Referred by Track Group [facility] ED Discharge 04/10/2012 1:32 PM Tracking Id [id number] Checkout 04/10/2012 1:32 PM Checkin 04/10/2012 9:53 AM Acuity 2 -Emergent Dispo Type * Discharged to Home or Self Care Arrival 04/10/2012 9:53 AM Reg Status Complete LOS 000 03:39 Address: [address] [place] [phone] Comment: PROVIDER INFORMATION Provider Role Provider Contact Time DIAGNOSIS Precordial chest pain 786.51 Comment: PATIENT EDUCATION INFORMATION Instructions: CHEST PAIN, NonCardiac Follow up: With: Address: When: LAVELL CHANEL [address] [place] [id number] [facility] (9) Within As Needed Comments: Source: [facility] [employer] Document Id: [id number] STRIAL ECONOMICS TEACHER documented in this encounter Nursing Notes Valarie Centeno R.N. - 04/10/2012 1:20 PM CST ED Pain Assessment ED Pain Assessment Entered On: 04/10/2012 13:20 INDUSTRIAL ECONOMICS TEACHER Performed On: 04/10/2012 13:20 INDUSTRIAL ECONOMICS TEACHER by VALARIE CENTENO RN Pain Assessment Pain Symptoms : No VALARIE CENTENO RN - 04/10/2012 13:20 INDUSTRIAL ECONOMICS TEACHER Source: [facility] [employer] Document Id: [id number] STRIAL ECONOMICS TEACHER Valarie Centeno R.N. - 04/10/2012 10:40 AM CST PRN Response PRN Response Entered On: 04/10/2012 10:48 INDUSTRIAL ECONOMICS TEACHER Performed On: 04/10/2012 10:40 INDUSTRIAL ECONOMICS TEACHER by VALARIE CENTENO RN PRN Medication Effectiveness Evaluation PRN Medication Effective : Yes Post Medication Pain Assessment : 0 VALARIE CENTENO RN - 04/10/2012 10:48 INDUSTRIAL ECONOMICS TEACHER Source: [facility] [employer] Document Id: [id number] STRIAL ECONOMICS TEACHER William Arredondo R.N. - 04/10/2012 10:20 AM CST ED Primary Assessment ED Primary Assessment Entered On: 04/10/2012 10:30 INDUSTRIAL ECONOMICS TEACHER Performed On: 04/10/2012 10:20 INDUSTRIAL ECONOMICS TEACHER by WLILIAM ARREDONDO RN Reason For Visit Problems(Active) Common migraine Name of Problem: Common migraine ; Onset Date: Unknown ; Recorder: NELLIE JOHNSON RN;Confirmation: Confirmed ; Classification: Nursing ; Code: 168149 ; Contributor System: [employer] ; Last Updated: 06/19/2010 11:18 CDT ; Life Cycle Status: Active ; Vocabulary: SNOMED CT Hyperlipidemia Name of Problem: Hyperlipidemia ; Recorder: MAXIME VARGHESE RN; Confirmation: Confirmed ; Classification: Medical ; Code: 095265 ; Contributor System: [employer] ; Last Updated: 02/14/2012 13:41 INDUSTRIAL ECONOMICS TEACHER ; Life Cycle Date: 02/11/2012 ; Life Cycle Status: Active ; Responsible Provider: MAXIME VARGHESE RN; Vocabulary: SNOMED CT ; Comments: 02/14/2012 13:17 - FRANCISCO COLINDRES STEEPING PRESS OPERATOR unknown date of dx Diagnoses(Active) Chest pain Date: 04/10/2012 ; Diagnosis Type: Reason For Visit ; Confirmation: Complaint of ; Clinical Dx: Chest pain ; Classification: Medical ; Clinical Service: Emergency medicine ; Code: PNED ; Probability: 0 ; Diagnosis Code: [id number] Triage Chief Complaint Description : see triage Information Given By : Patient, Significant other Accompanied By : Significant other Mode of Arrival ED : Private vehicle Track : Medical Languages : Citizen Of [place] Patient Informed of Triage Location : Emergency department Vital Signs Assessed : Yes GCS Assessed : Yes WILLIAM ARREDONDO RN - 04/10/2012 10:20 INDUSTRIAL ECONOMICS TEACHER Vital Signs Temperature Core : 37.6C(Converted to: 99.7DegF) Apical Heart Rate : 78/min Respiratory Rate : 20/min Systolic Blood Pressure : 132mmHg Diastolic Blood Pressure : 93mmHg (>HHI) NIBP Mean : 106mmHg BP Location : Left upper extremity SpO2 : 99% Oxygen Saturation Monitoring Frequency : Continuous Oxygen Flow Rate : 2L/min Oxygen Therapy : Nasal Cannula WILLIAM ARREDONDO RN - 04/10/2012 10:20 INDUSTRIAL ECONOMICS TEACHER Spalding Coma Eye Opening Response Maame : Spontaneously Best Verbal Response Spalding : Oriented Best Motor Response Spalding : Obeys simple commands Maame Coma Score : 15 WILLIAM ARREDONDO RN - 04/10/2012 10:20 INDUSTRIAL ECONOMICS TEACHER Pain Assessment Pain Symptoms : No WILLIAM ARREDONDO RN - 04/10/2012 10:20 INDUSTRIAL ECONOMICS TEACHER ED Physician Notification Time ED Physician Notification Time : 04/10/2012 10:00 INDUSTRIAL ECONOMICS TEACHER WILLIAM ARREDONDO RN - 04/10/2012 10:20 INDUSTRIAL ECONOMICS TEACHER SAEED SAEED Level 1 : No SAEED Level 2 : No SAEED Level 3 : Many Vital Signs SAEED : Danger zone (HR > 100, RR > 20, SaO2 < 92%) WILLIAM ARREDONDO RN - 04/10/2012 10:20 INDUSTRIAL ECONOMICS TEACHER DCP GENERIC CODE Tracking Acuity : 2 -Emergent Tracking Group : [facility] ED WILLIAM ARREDONDO RN - 04/10/2012 10:20 INDUSTRIAL ECONOMICS TEACHER Allergy Latex Reaction : No WILLIAM ARREDONDO RN - 04/10/2012 10:20 INDUSTRIAL ECONOMICS TEACHER Allergies (Active) morphine Estimated Onset Date: Unspecified ; Created By: RAVEN DELUNA LPN; Reaction Status: Active ; Category: Drug ; Substance: morphine ; Type: Allergy ; Updated By: RAVEN DELUNA LPN; Reviewed Date: 04/10/2012 10:21 INDUSTRIAL ECONOMICS TEACHER narcotic analgesics Estimated Onset Date: Unspecified ; Reactions: itch ; Created By: NELLIE JOHNSON RN; Reaction Status: Active ; Category: Drug ; Substance: narcotic analgesics ; Type: Sensitivity ; Updated By: NELLIE JOHNSON RN; Reviewed Date: 04/10/2012 10:21 INDUSTRIAL ECONOMICS TEACHER Percocet 5/325 Estimated Onset Date: Unspecified ; Created By: RAVEN DELUNA LPN; Reaction Status:Active ; Category: Drug ; Substance: Percocet 5/325 ; Type: Allergy ; Updated By: RAVEN DELUNA LPN; Reviewed Date: 04/10/2012 10:21 INDUSTRIAL ECONOMICS TEACHER Toradol Estimated Onset Date: Unspecified ; Created By: RAVEN DELUNA LPN; Reaction Status: Active; Category: Drug ; Substance: Toradol ; Type: Allergy ; Updated By: RAVEN DELUNA LPN; Reviewed Date: 04/10/2012 10:21 INDUSTRIAL ECONOMICS TEACHER ID Screen Drug Resistant Organism : No WILLIAM ARREDONDO RN - 04/10/2012 10:20 INDUSTRIAL ECONOMICS TEACHER Immunizations Immunizations Current : Yes Last Tetanus : < 5 years Pneumovac : None Influenza : Last year WILLIAM ARREDONDO RN - 04/10/2012 10:20 INDUSTRIAL ECONOMICS TEACHER Respiratory Airway : Patent Respirations : Unlabored Respiratory Pattern : Regular Oxygen Start Time : 04/10/2012 10:15 INDUSTRIAL ECONOMICS TEACHER Oxygen Therapy : Nasal Cannula Oxygen Flow Rate : 2L/min Respiratory Detailed Assessment : Yes WILLIAM ARREDONDO RN - 04/10/2012 10:20 INDUSTRIAL ECONOMICS TEACHER Resp Detailed Respiratory Patient Stated Symptoms : Shortness of breath Distress : None Cough : None Sputum Amount : None WILLIAM ARREDONDO RN - 04/10/2012 10:20 INDUSTRIAL ECONOMICS TEACHER Breath Sounds Assessment Grid BUL : Clear BLL : Diminished WILLIAM ARREDONDO RN - 04/10/2012 10:20 INDUSTRIAL ECONOMICS TEACHER Cardiovascular Heart Rhythm : Regular Skin Color : Normal for ethnicity Skin Description : Dry Skin Temperature : Warm Cardiovascular Detailed Assessment : Yes Monitoring Lead : I Monitoring Lead Associate School Psychologist : Initiated WILLIAM ARREDONDO RN - 04/10/2012 10:20 INDUSTRIAL ECONOMICS TEACHER CV Detailed CV Patient Stated Symptoms : Palpitations Nail Bed Color : [place] Capillary Refill : Less than 2 seconds Heart Sounds ICU : S1S2 Cardiac Rhythm : Sinus rhythm WILLIAM ARREDONDO RN - 04/10/2012 10:20 INDUSTRIAL ECONOMICS TEACHER Edema Detailed Grid Pretibial Edema Bilateral : None WILLIAM ARREDONDO RN - 04/10/2012 10:20 INDUSTRIAL ECONOMICS TEACHER Radial Pulse, Left : 2+ Normal Radial Pulse, Right : 2+ Normal WILLIAM ARREDONDO RN - 04/10/2012 10:20 INDUSTRIAL ECONOMICS TEACHER Neurological Last Well Time Known : Not applicable Level of Consciousness : Alert Orientation : Oriented x 3 Characteristics of Speech : Appropriate for age Neuro Patient Stated Symptoms : None Gait : Steady Swallowing Difficulty/Aspiration Risk : None WILLIAM ARREDONDO RN - 04/10/2012 10:20 INDUSTRIAL ECONOMICS TEACHER ED Psychosocial Affect/Behavior : Calm, Cooperative, Appropriate Domestic Abuse Concerns : None Emotional Support Available : Yes WILLIAM ARREDONDO RN - 04/10/2012 10:20 INDUSTRIAL ECONOMICS TEACHER Gastrointestinal Nutrition ED : Adequate WILLIAM ARREDONDO RN - 04/10/2012 10:20 INDUSTRIAL ECONOMICS TEACHER /OB Assessment Patient Stated Symptoms : None WILLIAM ARREDONDO RN - 04/10/2012 10:20 INDUSTRIAL ECONOMICS TEACHER Integumentary Integumentary Patient Stated Symptoms : None Skin Turgor : Elastic Skin Integrity : Intact Mucous Membrane Color : [place] Mucous Membrane Description : Moist Skin Color : Normal for ethnicity Skin Description : Dry Skin Temperature : Warm WILLIAM ARREDONDO RN - 04/10/2012 10:20 INDUSTRIAL ECONOMICS TEACHER Musculoskeletal Fall Prevention Education Provided : WILLIAM COSBY RN - 04/10/2012 10:20 INDUSTRIAL ECONOMICS TEACHER Social Habits Tobacco Use/Currently Using : Yes Exposure to Tobacco Smoke : Care provider denies smoking in home Smoking Status : Current some day smoker WILLIAM ARREDONDO RN - 04/10/2012 10:20 INDUSTRIAL ECONOMICS TEACHER Tobacco Use Grid Type : Cigarettes Last Use : Last PM WILLIAM ARREDONDO RN - 04/10/2012 10:20 INDUSTRIAL ECONOMICS TEACHER Alcohol Use Grid Alcohol Use : Yes Last Use : Last PM WILLIAM ARREDONDO RN - 04/10/2012 10:20 INDUSTRIAL ECONOMICS TEACHER Recreational Drug Use Grid Drug Use : None WILLIAM ARREDONDO RN - 04/10/2012 10:20 INDUSTRIAL ECONOMICS TEACHER Peripheral IV Peripheral IV Assess/Intervention Grid Peripheral IV #1 Peripheral IV #2 IV Activity : Start Start Number of Attempts : 1 1 Date of Insertion : 04/10/2012 INDUSTRIAL ECONOMICS TEACHER 04/10/2012 INDUSTRIAL ECONOMICS TEACHER IV Site : Antecubital Antecubital Laterality : [...] set WILLIAM ARREDONDO RN - 04/10/2012 10:20 INDUSTRIAL ECONOMICS TEACHER WILLIAM ARREDONDO RN - 04/10/2012 10:20 INDUSTRIAL ECONOMICS TEACHER Source: [employer] Document Id: [id number] STRIAL ECONOMICS TEACHER documented in this encounter ED Notes Valarie Centeno R.N. - 04/10/2012 1:33 PM CST ED Treatments and Procedures ED Treatments and Procedures Entered On: 04/10/2012 13:33 INDUSTRIAL ECONOMICS TEACHER Performed On: 04/10/2012 13:33 INDUSTRIAL ECONOMICS TEACHER by VALARIE CENTENO RN Oxygen Therapy Oxygen Start Time : 04/10/2012 10:15 INDUSTRIAL ECONOMICS TEACHER Oxygen Therapy : Room air Oxygen Stop Time : 04/10/2012 10:59 INDUSTRIAL ECONOMICS TEACHER Oxygen Flow Rate : 2L/min VALARIE CENTENO RN - 04/10/2012 13:33 INDUSTRIAL ECONOMICS TEACHER Peripheral IV Peripheral IV Assess/Intervention Grid Peripheral IV #1 Peripheral IV #2 IV Activity : Discontinue Discontinue Number of Attempts : 1 1 Date of Insertion : 04/10/2012 INDUSTRIAL ECONOMICS TEACHER 04/10/2012 INDUSTRIAL ECONOMICS TEACHER IV Site : Antecubital Antecubital Laterality : Left Right Catheter Size : 18 18 Catheter Type : Over the needle Over the needle VALARIE CENTENO RN - 04/10/2012 13:33 INDUSTRIAL ECONOMICS TEACHER VALARIE CENTENO RN - 04/10/2012 13:33 INDUSTRIAL ECONOMICS TEACHER Source: [employer] Document Id: [id number] STRIAL ECONOMICS TEACHER Valarie Centeno R.N. - 04/10/2012 1:31 PM CST ED Treatments and Procedures ED Treatments and Procedures Entered On: 04/10/2012 13:32 INDUSTRIAL ECONOMICS TEACHER Performed On: 04/10/2012 13:31 INDUSTRIAL ECONOMICS TEACHER by VALARIE CENTENO RN Cardiac Monitoring Monitoring Lead : I Monitoring Lead Associate School Psychologist : Discontinued VALARIE CENTENO RN - 04/10/2012 13:31 INDUSTRIAL ECONOMICS TEACHER Oxygen Therapy Oxygen Start Time : 04/10/2012 10:15 INDUSTRIAL ECONOMICS TEACHER Oxygen Therapy : Room air Oxygen Flow Rate : 2L/min VALARIE CENTENO RN - 04/10/2012 13:31 INDUSTRIAL ECONOMICS TEACHER Peripheral IV Peripheral IV Assess/Intervention Grid Peripheral IV #1 Peripheral IV #2 IV Activity : Discontinue Discontinue Number of Attempts : 1 1 Date of Insertion : 04/10/2012 INDUSTRIAL ECONOMICS TEACHER 04/10/2012 INDUSTRIAL ECONOMICS TEACHER IV Site : Antecubital Antecubital Laterality : Left Right Catheter Size : 18 18 Catheter Type : Over the needle Over the needle Comments (Comment: iv dc cannula intact [VALARIE CENTENO RN - 04/10/2012 13:31 INDUSTRIAL ECONOMICS TEACHER] ) (Comment: iv dc cannula intact [VALARIE CENTENO RN - 04/10/2012 13:31 INDUSTRIAL ECONOMICS TEACHER] ) VALARIE CENTENO RN - 04/10/2012 13:31 INDUSTRIAL ECONOMICS TEACHER VALARIE CENTENO RN - 04/10/2012 13:31 INDUSTRIAL ECONOMICS TEACHER Source: [facility] [employer] Document Id: [id number] STRIAL ECONOMICS TEACHER Valarie Centeno R.N. - 04/10/2012 12:59 PM CST ED Nurse Reassess ED Nurse Reassess Entered On: 04/10/2012 13:00 INDUSTRIAL ECONOMICS TEACHER Performed On: 04/10/2012 12:59 INDUSTRIAL ECONOMICS TEACHER by VALARIE CENTENO RN Pain Assessment Pain Symptoms : No VALARIE CENTENO RN - 04/10/2012 12:59 INDUSTRIAL ECONOMICS TEACHER Resp Reassess Respiratory Patient Stated Symptoms : None VALARIE CENTENO RN - 04/10/2012 12:59 INDUSTRIAL ECONOMICS TEACHER CV Reassess CV Patient Stated Symptoms : None VALARIE CENTENO RN - 04/10/2012 12:59 INDUSTRIAL ECONOMICS TEACHER Neuro Reassess Last Well Time Known : Not applicable Orientation : Oriented x 3 Characteristics of Speech : Appropriate for age Level of Consciousness : Alert Neuro Patient Stated Symptoms : None Gait : Steady VALARIE CENTENO RN - 04/10/2012 12:59 INDUSTRIAL ECONOMICS TEACHER Maame Coma Eye Opening Response Maame : Spontaneously Best Verbal Response Spalding : Oriented Best Motor Response Maame : Obeys simple commands Spalding Coma Score : 15 VALARIE CENTENO RN - 04/10/2012 12:59 INDUSTRIAL ECONOMICS TEACHER Behavioral Health Screen/Safety Reassmt Affect/Behavior : Calm, Cooperative, Appropriate VALARIE CENTENO RN - 04/10/2012 12:59 INDUSTRIAL ECONOMICS TEACHER GI Reassess GI Patient Stated Symptoms : None VALARIE CENTENO RN - 04/10/2012 12:59 INDUSTRIAL ECONOMICS TEACHER /OB Reassess Patient Stated Symptoms : None VALARIE CENTENO RN - 04/10/2012 12:59 INDUSTRIAL ECONOMICS TEACHER Source: [employer] Document Id: [id number] STRIAL ECONOMICS TEACHER Elvis Cardenas M.D. - 04/10/2012 12:11 PM CST ED Disposition Summary ED Disposition Summary Entered On: 04/10/2012 12:12 INDUSTRIAL ECONOMICS TEACHER Performed On: 04/10/2012 12:11 INDUSTRIAL ECONOMICS TEACHER by ELVIS CARDENAS MD ED Disposition Summary Accompanied By : Spouse Mode of Discharge : Ambulatory Discharge From ED With : Home Med List Printed Discharge Instructions Given to Patient : Yes Patient Status at Discharge from ED : Improved ELVIS CARDENAS MD - 04/10/2012 12:11 INDUSTRIAL ECONOMICS TEACHER Source: [employer] Document Id: [id number] STRIAL ECONOMICS TEACHER Valarie Centeno R.N. - 04/10/2012 11:45 AM CST ED Treatments and Procedures ED Treatments and Procedures Entered On: 04/10/2012 12:06 INDUSTRIAL ECONOMICS TEACHER Performed On: 04/10/2012 11:45 INDUSTRIAL ECONOMICS TEACHER by VALARIE CENTENO RN Ambulate Ambulation Distance : 200m Ambulation Patient Effort : Good Assistive Device : None Ambulation Patient Response : No shortness of breath/ no chest pain Ambulation Treatment Response : Expected Activity Assistance : Independent VALARIE CENTENO RN - 04/10/2012 12:02 INDUSTRIAL ECONOMICS TEACHER Source: [facility] [employer]CH[employer] Document Id: [id number] STRIAL ECONOMICS TEACHER Valarie Centeno R.N. - 04/10/2012 11:42 AM CST ED Nurse Reassess ED Nurse Reassess Entered On: 04/10/2012 11:43 INDUSTRIAL ECONOMICS TEACHER Performed On: 04/10/2012 11:42 INDUSTRIAL ECONOMICS TEACHER by VALARIE CENTENO RN Pain Assessment Pain Symptoms : No VALARIE CENTENO RN - 04/10/2012 11:42 INDUSTRIAL ECONOMICS TEACHER Comfort Measures Comfort Measures Response : Comfort level increased VALARIE CENTENO RN - 04/10/2012 11:42 INDUSTRIAL ECONOMICS TEACHER Resp Reassess Respiratory Patient Stated Symptoms : None Distress : None Airway : Patent Respiratory Pattern : Regular Respirations : Unlabored Cough : None Sputum Amount : None VALARIE CENTENO RN - 04/10/2012 11:42 INDUSTRIAL ECONOMICS TEACHER CV Reassess CV Patient Stated Symptoms : None Skin Color : Normal for ethnicity Skin Description : Dry Skin Temperature : Warm Nail Bed Color : [place] Capillary Refill : Less than 2 seconds Heart Rhythm : Regular Monitoring Lead : I Cardiac Rhythm : Sinus rhythm VALARIE CENTENO RN - 04/10/2012 11:42 INDUSTRIAL ECONOMICS TEACHER Neuro Reassess Last Well Time Known : Not applicable Orientation : Oriented x 3 Characteristics of Speech : Appropriate for age Level of Consciousness : Alert Neuro Patient Stated Symptoms : None Gait : Steady VALARIE CENTENO RN - 04/10/2012 11:42 INDUSTRIAL ECONOMICS TEACHER Maame Coma Eye Opening Response Spalding : Spontaneously Best Verbal Response Spalding : Oriented Best Motor Response Spalding : Obeys simple commands Maame Coma Score : 15 VALARIE CENTENO RN - 04/10/2012 11:42 INDUSTRIAL ECONOMICS TEACHER Behavioral Health Screen/Safety Reassmt Affect/Behavior : Calm, Cooperative, Appropriate VALARIE CENTENO RN - 04/10/2012 11:42 INDUSTRIAL ECONOMICS TEACHER GI Reassess GI Patient Stated Symptoms : None VALARIE CENTENO RN - 04/10/2012 11:42 INDUSTRIAL ECONOMICS TEACHER /OB Reassess Patient Stated Symptoms : None VALARIE CENTENO RN - 04/10/2012 11:42 INDUSTRIAL ECONOMICS TEACHER Integumentary Integumentary Patient Stated Symptoms : None VALARIE CENTENO RN - 04/10/2012 11:42 INDUSTRIAL ECONOMICS TEACHER [facility] Document Id: [id number] STRIAL ECONOMICS TEACHER Valarie Centeno R.N. - 04/10/2012 10:59 AM CST ED Treatments and Procedures ED Treatments and Procedures Entered On: 04/10/2012 10:59 INDUSTRIAL ECONOMICS TEACHER Performed On: 04/10/2012 10:59 INDUSTRIAL ECONOMICS TEACHER by VALARIE CENTENO RN Oxygen Therapy Oxygen Start Time : 04/10/2012 10:15 INDUSTRIAL ECONOMICS TEACHER Oxygen Therapy : Nasal Cannula Oxygen Stop Time : 04/10/2012 10:59 INDUSTRIAL ECONOMICS TEACHER Oxygen Flow Rate : 2L/min VALARIE CENTENO RN - 04/10/2012 10:59 INDUSTRIAL ECONOMICS TEACHER Source: [employer] Document Id: [id number] STRIAL ECONOMICS TEACHER Elvis Cardenas M.D. - 04/10/2012 10:42 AM [...] Note : Chief Complaint Description. 04/10/2012 10:20 INDUSTRIAL ECONOMICS TEACHER Chief Complaint Description see triage 04/10/2012 10:00 INDUSTRIAL ECONOMICS TEACHER Chief Complaint Description 41 year old female [...] 08/22/1998 CDT, Ad hoc dose () 05/19/2002 INDUSTRIAL ECONOMICS TEACHER, Ad hoc dose() 08/18/2002 CDT, Ad hoc dose () 09/27/2002 CDT. Future No future immunizations have been selected or recorded. Menstrual history: Unknown. history: not currently . Past Medical/ Family/ Social History Medical history: . No active or resolved past medical history items have been selected or recorded. Surgical history: . LEEP procedure of cervix ([id number]) in 1996 at 26 Years. Total abdominal hysterectomy (corpus and cervix), with or without removal of tube(s), with or without removal of ovary(s); (05139). Comments: 07/13/2010 11:39 - RAVEN DELUNA LPN date unknown Family history: Not significant. Social history: Alcohol use: Occasionally, Tobacco use: Occasionally, Drug use: Denies, Occupation: Employed, Family/social situation: . Problem list: . Problem list reviewed. Physical Examination Vital Signs Vital Signs. 04/10/2012 10:20 INDUSTRIAL ECONOMICS TEACHER Temperature Core 37.6 C Apical Heart Rate 78 /min Respiratory Rate 20 /min SpO2 99 % Systolic Blood Pressure 132 mmHg Diastolic Blood Pressure 93 mmHg >HHI Mean Arterial Pressure 106 mmHg BP Location Left upper 04/10/2012 10:00 INDUSTRIAL ECONOMICS TEACHER Temperature Core 37.5 C Apical Heart Rate 84 /min Respiratory Rate 24 /min HI SpO2 97 % Systolic Blood Pressure 135 mmHg Diastolic Blood Pressure 84 mmHg Mean Arterial Pressure 101 mmHg BP Location Left upper Measurements. 04/10/2012 10:00 INDUSTRIAL ECONOMICS TEACHER Height 173 cm Height Source Stated Dosing Weight 92.8 kg Actual Weight 92.8 kg Weight Source Bed scale Body Mass Index 31.01 kg/m2 SpO2. 04/10/2012 10:20 INDUSTRIAL ECONOMICS TEACHER SpO2 99 % 04/10/2012 10:00 INDUSTRIAL ECONOMICS TEACHER SpO2 97 % General: Alert and mild [...] Laboratory: TSH (Order Processing): Stat, 04/10/2012 11:12 INDUSTRIAL ECONOMICS TEACHER, Once Patient Care: ED ACS (STEMI, NSTEMI, UA) (Order Processing) Vital Signs q 15 Minutes - ED (Order Processing): 04/10/2012 11:12 INDUSTRIAL ECONOMICS TEACHER Pharmacy: NS 250 mL Bolus and Continuous 1000 mL (Order Processing): 100 mL/hr, IV aspirin (Order Processing): 324 mg, PO, Once nitroglycerin additive 25 mg [0.15 mcg/kg/min] + Premix Bag 250 mL (Order Processing): 8.35 mL/hr, IV ED: Oxygen - ER (Order Processing): 04/10/2012 11:12 INDUSTRIAL ECONOMICS TEACHER, Once, PRN Order, to keep oxygen saturation above 90%, 24 Electrocardiogram:Normal sinus rhythm, No ST-T changes, normal CO & QRS intervals. gambling monitor:Rate 76. Results review:All Results : Results. 04/10/2012 10:59 INDUSTRIAL ECONOMICS TEACHER ED Treatments and Procedures - Text 04/10/2012 10:40 INDUSTRIAL ECONOM[employer] TEACHER PRN Response - Text 04/10/2012 10:32 INDUSTRIAL E[employer]OM[employer] TEACHER ED Nurse Reassess - Text 04/10/2012 10:30 INDUSTRIAL ECONOM[employer] TEACHER XR Chest 1 view portable Report 04/10/2012 10:20 INDUSTRIAL ECONOM[employer] TEACHER ED Nursing Note 04/10/2012 10:07 INDUSTRIAL ECONOM[employer] TEACHER ED Triage Note - Text (In Error) 04/10/2012 10:00 INDUSTRIAL ECONOM[employer] TEACHER ED Triage Note - Text 04/10/2012 11:13 INDUSTRIAL ECONOM[employer] TEACHER Apical Heart Rate 70 /min SpO2 98 % Systolic Blood Pressure 122 mmHg Diastolic Blood Pressure 80 mmHg BP Location Left upper Oxygen Therapy Room air Vital Signs Form Vital Signs Form 04/10/2012 10:59 INDUSTRIAL ECONOM[employer] TEACHER Apical Heart Rate 64 /min SpO2 97 % Systolic Blood Pressure 128 mmHg Diastolic Blood Pressure 82 mmHg BP Location Left upper Oxygen Therapy Room air Oxygen Therapy Nasal Cannula Oxygen Flow Rate 2 L/min Oxygen Start Time 04/10/2012 10:15 Oxygen Stop Time 04/10/2012 10:59 ED Treatments and Procedures Form ED Treatments and Procedures Form Vital Signs Form Vital Signs Form 04/10/2012 10:48 INDUSTRIAL E[employer] TEACHER Temperature Core 37.5 C Apical Heart Rate 69 /min Respiratory Rate 20 /min SpO2 98 % Systolic Blood Pressure 127 mmHg Diastolic Blood Pressure 84 mmHg BP Location Left upper Oxygen Therapy Nasal Cannula Oxygen Saturation Monitoring Frequency Continuous Oxygen Flow Rate 2 L/min Vital Signs Form Vital Signs Form 04/10/2012 10:40 INDUSTRIAL E[employer] TEACHER Apical Heart Rate 78 /min SpO2 96 % Systolic Blood Pressure 125 mmHg Diastolic Blood Pressure 82 mmHg BP Location Left upper PRN Medication Effective Yes Post Medication Pain Assessment 0 Response Response Oxygen Therapy Nasal Cannula Oxygen Saturation Monitoring Frequency Continuous Oxygen Flow Rate 2 L/min Vital Signs Form Vital Signs Form 04/10/2012 10:35 INDUSTRIAL E[employer] TEACHER Apical Heart Rate 77 /min SpO2 98 % Systolic Blood Pressure 132 mmHg Diastolic Blood Pressure 88 mmHg BP Location Left upper Oxygen Therapy Nasal Cannula Oxygen Saturation Monitoring Frequency Continuous Oxygen Flow Rate 2 L/min nitroglycerin 0.4 mg mg Sodium Chloride 0.9% Begin Bag 1,000 mL mL Vital Signs Form Vital Signs Form 04/10/2012 10:34 INDUSTRIAL E[employer] TEACHER aspirin 324 mg mg 04/10/2012 10:32 INDUSTRIAL E[employer]OM[employer] TEACHER Pain Symptoms Yes Pain 1 Location Other: [...] Form ED Nurse Reassess Form 04/10/2012 10:25 INDUSTRIAL E[employer]OM[employer] TEACHER 12 Lead EKG Done 04/10/2012 10:20 INDUSTRIAL ECONOMICS TEACHER Temperature Core 37.6 C Apical Heart Rate 78 /min Respiratory Rate 20 /min SpO2 99 % Systolic Blood Pressure 132 mmHg Diastolic Blood Pressure 93 mmHg >HHI Mean Arterial Pressure 106 mmHg BP Location Left upper Pain Symptoms No Distress None Nail Bed Color [place] Capillary Refill Less than 2 seconds Heart Sounds ICU S1S2 Heart Rhythm Regular CV Patient Stated Symptoms Palpitations Radial Pulse, Left 2+ Normal Radial Pulse, Right 2+ Normal Bilateral Pretibial Edema None Cardiac Rhythm Sinus rhythm Monitoring Lead I Monitoring Lead Associate [employer] Psychologist Initiated Respirations Unlabored Respiratory Patient Stated Symptoms [...] Intact Skin Turgor Elastic Mucous Membrane Color [place] Mucous Membrane Description Moist Peripheral IV #1 [...] Opening Response Maame Spontaneously Best Motor Response Spalding Obeys simple commands Best Verbal Response Spalding Oriented Spalding Coma Score 15 Affect/Behavior Calm, Cooperative, Appropriate Orientation Oriented x 3 Domestic Abuse Concerns None Emotional Support Available Yes Nutrition ED Adequate Patient Stated Symptoms None Latex Reaction No Oxygen Start Time 04/10/2012 10:15 Tracking Acuity 2 -Emergent Tracking Group [facility] ED Drug Resistant Organism No Tobacco [...] None Influenza Last year Languages Citizen [place] ED Physician Notification Time 04/10/2012 10:00 SAEED Level 1 No SAEED Level 2 No SAEED Level 3 Many Vital Signs SAEED Danger zone (HR > 100, RR > 20, SaO2 < 92%) Vital Signs Assessed Yes Cardiovascular Detailed Assessment Yes GCS Assessed Yes Respiratory Detailed Assessment Yes 04/10/2012 10:08 INDUSTRIAL E[employer]OM[employer] TEACHER Sodium Lvl 138.4 mM/L Potassium Lvl 3.8 [...] % 54.9 % Lymph % 27.9 % [place] % 10.9 % Eos % 5.7 % HI Baso % 0.6 % Neutro Absolute 2.72 10(9)/L Lymph Absolute 1.38 x10(9)/L [place] Absolute 0.54 x10(9)/L Eos Absolute 0.28 x10(9)/L Baso Absolute 0.03 x10(9)/L Differential? Auto PT 9.5 second(s) INR 0.92 PTT 24.3 second(s) 04/10/2012 10:07 INDUSTRIAL E[employer]OM[employer] TEACHER ED Triage Assessment Adult ([facility]) Form In Error (In Error) 04/10/2012 10:00 INDUSTRIAL E[employer]OM[employer] TEACHER Height 173 cm Height Source Stated Dosing [...] Oxygen Therapy Room air Eye Opening Response Spalding Spontaneously Best Motor Response Spalding Obeys simple commands Best Verbal Response Maame Oriented Spalding Coma Score 15 Latex Reaction No Tracking Acuity 2 -Emergent Tracking Group [facility] ED Drug Resistant Organism No Chief [...] None Influenza Last year Languages Citizen [place] ED Physician Notification Time 04/10/2012 10:00 SAEED [...] from flowsheet : Vital Signs 04/10/2012 11:13 INDUSTRIAL E[employer] TEACHER Apical Heart Rate 70 /min SpO2 98 % Systolic Blood Pressure 122 mmHg Diastolic Blood Pressure 80 mmHg BP Location [facility] 04/10/2012 10:59 INDUSTRIAL E[employer]OM[employer] TEACHER Apical Heart Rate 64 /min SpO2 97 % Systolic Blood Pressure 128 mmHg Diastolic Blood Pressure 82 mmHg BP Location [facility] 04/10/2012 10:48 INDUSTRIAL E[employer]OM[employer] TEACHER Temperature Core 37.5 C Apical Heart Rate 69 /min Respiratory Rate 20 /min SpO2 98 % Systolic Blood Pressure 127 mmHg Diastolic Blood Pressure 84 mmHg BP Location [facility] 04/10/2012 10:40 INDUSTRIAL E[employer] TEACHER Apical Heart Rate 78 /min SpO2 96 % Systolic Blood Pressure 125 mmHg Diastolic Blood Pressure 82 mmHg BP Location [facility] 04/10/2012 10:35 INDUSTRIAL E[employer] TEACHER Apical Heart Rate 77 /min SpO2 98 % Systolic Blood Pressure 132 mmHg Diastolic Blood Pressure 88 mmHg BP Location [facility] 04/10/2012 10:20 INDUSTRIAL E[employer]OM[employer] TEACHER Temperature Core 37.6 C Apical Heart Rate 78 /min Respiratory Rate 20 /min SpO2 99 % Systolic Blood Pressure 132 mmHg Diastolic Blood Pressure 93 mmHg >HHI Mean Arterial Pressure 106 mmHg BP Location [facility] 04/10/2012 10:00 INDUSTRIAL E[employer]OM[employer] TEACHER Temperature Core 37.5 C Apical Heart Rate 84 /min Respiratory Rate 24 /min HI SpO2 97 % Systolic Blood Pressure 135 mmHg Diastolic Blood Pressure 84 mmHg Mean Arterial Pressure 101 mmHg BP Location [facility] SpO2 04/10/2012 11:13 INDUSTRIAL E[employer]OM[employer] TEACHER SpO2 98 % 04/10/2012 10:59 INDUSTRIAL ECONOMICS TEACHER SpO2 97 % 04/10/2012 10:48 INDUSTRIAL ECONOM[employer] TEACHER SpO2 98 % 04/10/2012 10:40 INDUSTRIAL ECONOMICS TEACHER SpO2 96 % 04/10/2012 10:35 INDUSTRIAL ECONOMICS TEACHER SpO2 98 % 04/10/2012 10:20 INDUSTRIAL ECONOM[employer] TEACHER SpO2 99 % 04/10/2012 10:00 INDUSTRIAL ECONOMICS TEACHER SpO2 97 % Impression and Plan Diagnosis [...] 01:27 PM Source: [facility] POWERCHART Document Id: [id number]} [employer] TEACHER Valarie Centeno R.N. - 04/10/2012 10:32 AM CST ED Nurse Reassess ED Nurse Reassess Entered On: 04/10/2012 10:37 INDUSTRIAL E[employer] TEACHER Performed On: 04/10/2012 10:32 INDUSTRIAL E[employer] TEACHER by VALARIE CENTENO RN Pain Assessment Pain Symptoms : Yes VALARIE CENTENO RN - 04/10/2012 10:32 INDUSTRIAL E[employer] TEACHER Pain Pain Assessment Grid Pain 1 Location : Other: Chest/Heart Laterality : Bilateral Intensity : 2 Time Pattern : Acute Onset : Sudden Quality : Pressure, Sharp Pain Radiation : No Aggravating Factors : None Alleviating Factors : None Associated Symptoms : Palpitations Interventions : MD notified VALARIE CENTENO RN - 04/10/2012 10:41 INDUSTRIAL E[employer]OM[employer] TEACHER [facility] Document Id: [id number] [employer]IAL ECONOM[employer] TEACHER William Arredondo R.N. - 04/10/2012 10:00 AM CST ED Triage Assessment ED Triage Assessment Entered On: 04/10/2012 10:20 INDUSTRIAL E[employer]OM[employer] TEACHER Performed On: 04/10/2012 10:00 INDUSTRIAL ECONOM[employer] TEACHER by WILLIAM ARREDONDO RN Reason For Visit Problems(Active) Common migraine Name of Problem: Common migraine ; Onset Date: Unknown ; Recorder: NELLIE JOHNSON RN;Confirmation: Confirmed ; Classification: Nursing ; Code: 767777 ; Contributor System: [employer] ; Last Updated: 06/19/2010 11:18 CDT ; Life Cycle Status: Active ; Vocabulary: SNOMED CT Hyperlipidemia Name of Problem: Hyperlipidemia ; Recorder: MAXIME VARGHESE RN; Confirmation: Confirmed ; Classification: Medical ; Code: [id number] ; Contributor System: [employer] ; Last Updated: 02/14/2012 13:41 INDUSTRIAL ECONOMICS TEACHER ; Life Cycle Date: 02/11/2012 ; Life [...] PNED ; Probability: 0 ; Diagnosis Code: [id number] Triage Chief Complaint Description : 41 year old female presents to the ED after presenting to clinic triage with c/o being lightheaded, feeling sweaty, and palpitations. Patient has a hx NSTEMI- June 21, 2010. Information Given By : Patient, Significant other Accompanied By : Significant other Mode of Arrival ED : Private vehicle Track : Medical Languages : Citizen [place] Patient Informed of Triage Location : Emergency department Vital Signs Assessed : Yes GCS Assessed : Yes WILLIAM ARREDONDO RN - 04/10/2012 10:14 INDUSTRIAL ECONOM[employer] TEACHER Vital Signs Temperature Core : 37.5C(Converted to: [...] 31.01kg/m2 WILLIAM ARREDONDO RN - 04/10/2012 10:14 INDUSTRIAL ECONOMICS TEACHER Maame Coma Eye Opening Response Spalding : Spontaneously Best Verbal Response Maame : Oriented Best Motor Response Maame : Obeys simple commands Maame Coma Score : 15 WILLIAM ARREDONDO RN - 04/10/2012 10:14 INDUSTRIAL E[employer] TEACHER Pain Assessment Pain Symptoms : No WILLIAM ARREDONDO RN - 04/10/2012 10:14 INDUSTRIAL E[employer] TEACHER ED Physician Notification Time ED Physician Notification Time : 04/10/2012 10:00 INDUSTRIAL E[employer] TEACHER WILLIAM ARREDONDO RN - 04/10/2012 10:14 INDUSTRIAL ECONOMICS TEACHER SAEED SAEED Level 1 : No SAEED Level 2 : No SAEED Level 3 : Many Vital Signs SAEED : Danger zone (HR > 100, RR > 20, SaO2 < 92%) WILLIAM ARREDONDO RN - 04/10/2012 10:14 INDUSTRIAL ECONOMICS TEACHER DCP GENERIC CODE Tracking Acuity : 2 -Emergent Tracking Group : [facility] ED WILLIAM ARREDONDO RN - 04/10/2012 10:14 INDUSTRIAL ECONOMICS TEACHER Allergy Latex Reaction : No WILLIAM ARREDONDO RN - 04/10/2012 10:14 INDUSTRIAL ECONOMICS TEACHER Allergies (Active) morphine Estimated Onset Date: Unspecified ; Created By: RAVEN DELUNA LPN; Reaction Status: Active ; Category: Drug ; Substance: morphine ; Type: Allergy ; Updated By: RAVEN DELUNA LPN; Reviewed Date: 04/10/2012 10:20 INDUSTRIAL ECONOMICS TEACHER narcotic analgesics Estimated Onset Date: Unspecified ; Reactions: itch ; Created By: NELLIE JOHNSON RN; Reaction Status: Active ; Category: Drug ; Substance: narcotic analgesics ; Type: Sensitivity ; Updated By: NELLIE JOHNSON RN; Reviewed Date: 04/10/2012 10:20 INDUSTRIAL ECONOMICS TEACHER Percocet 5/325 Estimated Onset Date: Unspecified ; Created By: RAVEN DELUNA LPN; Reaction Status:Active ; Category: Drug ; Substance: Percocet 5/325 ; Type: Allergy ; Updated By: RAVEN DELUNA LPN; Reviewed Date: 04/10/2012 10:20 INDUSTRIAL ECONOMICS TEACHER Toradol Estimated Onset Date: Unspecified ; Created By: RAVEN DELUNA LPN; Reaction Status: Active; Category: Drug ; Substance: Toradol ; Type: Allergy ; Updated By: RAVEN DELUNA LPN; Reviewed Date: 04/10/2012 10:20 INDUSTRIAL ECONOMICS TEACHER ID Screen Drug Resistant Organism : No WILLIAM ARREDONDO RN - 04/10/2012 10:14 INDUSTRIAL ECONOMICS TEACHER Immunizations Immunizations Current : Yes Last Tetanus : < 5 years Pneumovac : None Influenza : Last year WILLIAM ARREDONDO RN - 04/10/2012 10:14 INDUSTRIAL ECONOMICS TEACHER Source: [facility] POWERCHART Document Id: [id number] STRIAL ECONOMICS TEACHER documented in this encounter Miscellaneous Notes Miscellcriselda - Valarie Centeno R.N. - 04/10/2012 1:31 PM CST Valuables/Belongings Valuables/Belongings Entered On: 04/10/2012 13:31 INDUSTRIAL ECONOMICS TEACHER Performed On: 04/10/2012 13:31 INDUSTRIAL ECONOMICS TEACHER by VALARIE CENTENO RN Valuables/Belongings Valuables/Belongings Grid Valuables with Patient Clothes, Patient Valuables : Jacket, Pants, Shirt, Shoes, Undergarments Electronic Devices : Cell phone VALARIE CENTENO RN - 04/10/2012 13:31 INDUSTRIAL ECONOMICS TEACHER Home Medication Disposition : None brought in with patient VALARIE CENTENO RN - 04/10/2012 13:31 INDUSTRIAL ECONOMICS TEACHER [facility] Document Id: [id number] STRIAL ECONOMICS TEACHER Miscellaneous - Valarie Centeno R.N. - 04/10/2012 1:21 PM CST Discharge Vital Signs Form Discharge Vital Signs Form Entered On: 04/10/2012 13:21 INDUSTRIAL ECONOMICS TEACHER Performed On: 04/10/2012 13:21 INDUSTRIAL ECONOMICS TEACHER by VALARIE CENTENO RN Vital Signs Temperature Core : 37.3C(Converted to: 99.1DegF) Apical Heart Rate : 58/min (LOW) Respiratory Rate : 20/min Systolic Blood Pressure : 127mmHg Diastolic Blood Pressure : 86mmHg NIBP Mean : 100mmHg BP Location : Left upper extremity SpO2 : 98% Oxygen Therapy : Room air VALARIE CENTENO RN - 04/10/2012 13:21 INDUSTRIAL ECONOMICS TEACHER [facility] Document Id: [id number] STRIAL ECONOMICS TEACHER Kilo - Valarie Centeno R.N. - 04/10/2012 9:53 AM CST Facility Charge Ticket Facility Charge Ticket Entered On: 04/10/2012 13:34 INDUSTRIAL ECONOMICS TEACHER Performed On: 04/10/2012 9:53 INDUSTRIAL ECONOMICS TEACHER by VALARIE CENTENO RN Facility Charge TVL [...] Control : 15 Lynx Visit Level : 31708 Level 5 VALARIE CENTENO RN - 04/10/2012 13:33 INDUSTRIAL ECONOMICS TEACHER Chief Complaint 8.50.02 Reason For Visit Category : Cardiorespiratory ED Chief Complaint Cardiorespiratory 8.5 : Palpitations TVL Calc : 20 TVL for Facility Charge Ticket Dx : Level 5 VALARIE CENTENO RN - 04/10/2012 13:33 INDUSTRIAL ECONOMICS TEACHER Source: [facility] [employer] Document Id: [id number] STRIAL ECONOMICS TEACHER documented in this encounter Plan of Treatment Not on filedocumented as of this encounter Procedures Procedure Name Priority Date/Time Associated Comments Diagnosis CREATINE KINASE (CK) MB Routine 04/10/2012 10:08 Results for this ISOENZYME, S AM INDUSTRIAL ECONOMICS TEACHER procedure are i n the results section. AUTOMATED DIFFERENTIAL, Routine 04/10/2012 10:08 Results for this B AM INDUSTRIAL ECONOMICS TEACHER procedure are i n the results section. ACTIVATED PARTIAL Routine 04/10/2012 10:08 Result s for this THROMBOPLASTIN TIME AM INDUSTRIAL ECONOMICS TEACHER procedur e are in (APTT), P the results section. PROTHROMBIN TIME (PT), Routine 04/10/2012 10:08 R esults for this P AM INDUSTRIAL ECONOMICS TEACHER procedure are i n the results section. CBC WITH DIFFERENTIAL, Routine 04/10/2012 10:08 R esults for this B AM INDUSTRIAL ECONOMICS TEACHER procedure are i n the results section. TROPONIN T, 5TH GEN, P Routine 04/10/2012 10:08 R esults for this AM INDUSTRIAL ECONOMICS TEACHER procedure are i n the results section. CREATINE KINASE (CK), S Routine 04/10/2012 10:08 Results for this AM INDUSTRIAL ECONOMICS TEACHER procedure are i n the results section. BASIC METABOLIC PANEL, Routine 04/10/2012 10:08 R esults for this S/P AM INDUSTRIAL ECONOMICS TEACHER procedure are i n the results section. documented in this encounter Results (ABNORMAL) Automated Differential (04/10/2012 10:08 AM INDUSTRIAL ECONOMICS TEACHER) Analysis Performed At Patho logist Time Signature Neutro % 54.9 42.0 - POWERCHART 77.0 Lymphocytes % 27.9 23.0 - POWERCHART 44.0 HX [place] % 10.9 2.0 - 18.0 POWERCHART HX [...] Volume Laterality Blood 04/10/2012 10:08 04/10/2012 AM INDUSTRIAL ECONOMICS TEACHER 10:08 AM INDUSTRIAL ECONOMICS TEACHER Elvis Cardenas M.D. LAB BLOOD ADD-ON Performing Organization Address City/[facility] Code Phon e Number POWERCHART APTT (Activated Partial Thromboplastin Time) (04/10/2012 10:08 AM INDUSTRIAL ECONOMICS TEACHER) Analysis Performed At Patho logist Time Signature Prothrombin 24.3 23.0 - 31.0 POWERCHART Time, P SECONDS Specimen (Source) Anatomical Collection Method Collection Time Re ceived Time Location / / Volume Laterality Blood 04/10/2012 10:08 AM INDUSTRIAL ECONOMICS TEACHER Elvis Cardenas M.D. LAB BLOOD ADD-ON Performing Organization Address City/State/ZIP Code Phon e Number POWERCHART PT (Prothrombin Time) with INR (04/10/2012 10:08 AM INDUSTRIAL ECONOMICS TEACHER) Analysis Performed At Patho logist Time Signature Prothrombin 9.5 9.3 - 11.3 POWERCHART Time, P SECONDS INR 0.92 0.90 - 1.10 POWERCHART Specimen (Source) Anatomical Collection Method Collection Time Re ceived Time Location / / Volume Laterality Blood 04/10/2012 10:08 AM INDUSTRIAL ECONOMICS TEACHER Elvis Cardenas M.D. LAB BLOOD ADD-ON Performing Organization Address City/State/ZIP Code Phon e Number POWERCHART CBC with Differential (04/10/2012 10:08 AM INDUSTRIAL ECONOMICS TEACHER) P athologist Signature Leukocytes 5.0 3.4 - 10.5 POWERCHART X109L Erythrocytes 4.26 3.90 - POWERCHART 5.03 [id number] Hemoglobin 13.6 12.0 - POWERCHART 15.5 GDL Hematocrit 39.4 34.9 - POWERCHART 44.5 MCV 92.5 82.0 - POWERCHART 98.0 FL HX RDW 12.0 11.9 - POWERCHART 15.5 Platelet Count 265 150 - 450 POWERCHART X109L HXDifferential? Auto POWERCHART Specimen (Source) Anatomical Collection Method Collection Time Re ceived Time Location / / Volume Laterality Blood 04/10/2012 10:08 AM INDUSTRIAL ECONOMICS TEACHER Elvis Cardenas M.D. LAB BLOOD ADD-ON Performing Organization Address City/State/ZIP Code Phon e Number POWERCHART Troponin T (04/10/2012 10:08 AM INDUSTRIAL ECONOMICS TEACHER) P athologist Signature Troponin T, S <0.01 0.00 - 0.10 POWERCHART NGML Comment: 0.03 ? 0.1 ng/mL Intermediate Zone Specimen (Source) Anatomical Collection Method Collection Time Re ceived Time Location / / Volume Laterality Blood 04/10/2012 10:08 AM INDUSTRIAL ECONOMICS TEACHER Elvis Cardenas M.D. LAB BLOOD ADD-ON Performing Organization Address City/State/ZIP Code Phon e Number POWERCHART CK (Creatine Kinase) (04/10/2012 10:08 AM INDUSTRIAL ECONOMICS TEACHER) P athologist Signature Creatine Kinase 82 21 - 232 UL POWERCHART (CK), S Specimen (Source) Anatomical Collection Method Collection Time Re ceived Time Location / / Volume Laterality Blood 04/10/2012 10:08 AM INDUSTRIAL ECONOMICS TEACHER Elvis Cardenas M.D. LAB BLOOD ADD-ON Performing Organization Address City/State/ZIP Code Phon e Number POWERCHART BMP (Basic Metabolic Panel) (04/10/2012 10:08 AM INDUSTRIAL ECONOMICS TEACHER) P athologist Signature Sodium, S 138.4 135.0 [...] POWERCHART MMOLL eGFR >60 >=60 POWERCHART Black/ [id number] [place] Glucose 126 70 - 139 POWERCHART MGDL HXeGFR (MDRD) >60 >=60 POWERCHART [id number] Comment: A GFR of <60 mL/min is indicative of chr onic kidney disease. (MDRD calculation valid on patients 18 - 70 years.) Specimen (Source) Anatomical Collection Method Collection Time Re ceived Time Location / / Volume Laterality Blood 04/10/2012 10:08 AM INDUSTRIAL ECONOMICS TEACHER Elvis Cardenas M.D. LAB BLOOD ADD-ON Performing Organization Address City/State/ZIP Code Phon e Number POWERCHART Creatine Kinase (CK) MB Isoenzyme (04/10/2012 10:08 AM INDUSTRIAL ECONOMICS TEACHER) P athologist Signature Creatine 1.7 0.1 - 6.2 POWERCHART Kinase(CK) MB NGML Isoenzyme, S Specimen (Source) Anatomical Collection Method Collection Time Re ceived Time Location / / Volume Laterality Blood 04/10/2012 10:08 AM INDUSTRIAL ECONOMICS TEACHER Elvis Cardenas M.D. LAB BLOOD ADD-ON Performing Organization Address City/State/ZIP Code Phon e Number POWERCHART documented in this encounter Visit Diagnoses Not on filedocumented in this encounter Additional Health Concerns Assessment Noted Time PHQ-9 Depression Total Score: 15 02/14/2012 1:41 PM CS T documented as of this encounter
--- OUTSIDE RECORDS SUMMARY | 2022-02-02 09:27 | XMS_ITS | Encounter Summary ---
:1970 Author Organization [facility] Address [address] [place] [address] Care Team Providers Name Role Phone Unavailable Primary Care Provider Unavailable Encounter Details Date Type Department Care Team Description 08/06/2009 Hospital Encounter HX [facility] CAM INPT/OBSRV Brenda Garvey M.D. [address] [place] [address] [phone] (Wo rk) Social History Tobacco [...]
--- OUTSIDE RECORDS SUMMARY | 2022-02-02 09:27 | XMS_ITS | Encounter Summary ---
:1970 Author Organization [facility] Address [address] [place] [address] Care Team Providers Name Role Phone Unavailable Primary Care Provider Unavailable Encounter Details Date Type Department Care Team Description 12/07/2008 Hospital Encounter HX [facility] CAM INPT/OBSRV Jaymie Lopez M.D. [address] [place] [phone] (Wo rk) Social History Tobacco Use Types [...]
--- OUTSIDE RECORDS SUMMARY | 2022-02-02 09:27 | XMS_ITS | Encounter Summary ---
:1970 Author Organization [facility] Address [address] [place] [address] Care Team Providers Name Role Phone Unavailable Primary Care Provider Unavailable Encounter Details Date Type Department Care Team Description 06/21/2009 Hospital Encounter HX [facility] CAM INPT/OBSRV Jaymie Lopez M.D. [address] [place] [phone] (Wo rk) Social History Tobacco Use Types [...]
--- OUTSIDE RECORDS SUMMARY | 2022-02-02 09:27 | XMS_ITS | Encounter Summary ---
:1970 Author Organization [facility] Address [address] [place] [address] Care Team Providers Name Role Phone Unavailable Primary Care Provider Unavailable Encounter Details Date Type Department Care Team Description 03/14/2014 Hospital Encounter HX [facility] Tiffanie Munoz, ALVERTO, C.N.P., D.N.P. [address], [place] [phone] (Wo rk) Social History [...] 173 cm (5' 8.11) 03/14/2014 10:12 AM INTELLIGENCE SUPPORT OFFICER Body Mass Index - - documented in this encounter Plan of Treatment Not on filedocumented as of this encounter Procedures Procedure Name Priority Date/Time Associated Comments Diagnosis 5-HYDROXYINDOLEACETIC Routine 03/14/2014 6:00 AM Results for this ACID, 24 HR U INTELLIGENCE SUPPORT OFFICER procedure are in the results section. CATECHOLAMINE FRACT, Routine 03/14/2014 6:00 AM R esults for this FREE, U INTELLIGENCE SUPPORT OFFICER procedure are i n the results section. documented in this encounter Results 5-Hydroxyindoleacetic Acid (5-HIAA), 24 Hour, Urine (03/14/2014 6:00 AM INTELLIGENCE SUPPORT OFFICER) P athologist Signature 5-Hydroxyindole 4.8 <=8.0 POWERCHART acetic Acid, U MG24HR HXHrs 24 HR POWERCHART 5-HIAA-[place] HXTV 1425 ML POWERCHART 5-HIAA-[place] Comment: Test Performed by: [facility] [address] Cra Officer: Leanne Jorge Specimen (Source) Anatomical Collection Method Collection Time Re ceived Time Location / / Volume Laterality Urine 03/14/2014 6:00 AM INTELLIGENCE SUPPORT OFFICER Tiffanie Munoz APRN, C.N.P., D.N.P. LAB URINE ORDE RABNICOLE Performing Organization Address City/[facility] Code Phon e Number POWERCHART (ABNORMAL) Catecholamine Fractionation, Free, 24 Hour, Urine (03/14/2014 6:00 AM INTELLIGENCE SUPPORT OFFICER) Patholo gist Method Time Signature HXHrs Catech 24 HR POWERCHART Free-[place] HXTV Catech 1425 ML POWERCHART Free-[place] Norepinephrine 12 (L) 15 - 80 POWERCHART Epinephrine 1.1 <21 POWERCHART Dopamine 229 65 - 400 POWERCHART Comment: Test Performed by: [facility] [place] [address] Cra Officer: Leanne Jorge Specimen (Source) Anatomical Collection Method Collection Time Re ceived Time Location / / Volume Laterality Urine 03/14/2014 6:00 AM INTELLIGENCE SUPPORT OFFICER Tiffanie Munoz APRN, C.N.P., D.N.P. LAB URINE ORDE ED Performing Organization Address City/[facility] Code Phon e Number POWERCHART documented in this encounter Visit Diagnoses Not on filedocumented in this encounter Additional Health Concerns Assessment Noted Time PHQ-9 Depression Total Score: 10 03/11/2013 2:22 PM CS T documented as of this encounter
--- OUTSIDE RECORDS SUMMARY | 2022-02-02 09:28 | XMS_ITS | Encounter Summary ---
:1970 Author Organization [facility] Address [address] [place] [address] Care Team Providers Name Role Phone Unavailable Primary Care Provider Unavailable Encounter Details Date Type Department Care Team Description 06/06/2004 - Hospital Encounter HX NO MAPPING Butch Mitchell M.D. 06/07/2004 [facility] [place], [place] [address] (Wo rk) Social History [...]
--- OUTSIDE RECORDS SUMMARY | 2022-02-02 09:28 | XMS_ITS | Encounter Summary ---
:1970 Author Organization [facility] Address [address] [place] [address] Care Team Providers Name Role Phone Unavailable [...] with contrast, contrast enhance d neck MRA, [place] of [place] MRA: Brain MR: No intracranial [...] s ignificant stenosis. No vascular anomalies. ?? [place] of [place] MRA: Normal examination . No evidence of vascular anomaly. No occlusion or significant stenosis. ?? (PTH629) Ind: 110.543 ?? Dia.120 ?? Electronically signed by: ?? Felipe Meadows M.D. [id number] 26-Jun-2001 16: 48 Procedure Note Felipe Meadows M.D., M.B.A. - 06/13/2017 26-Jun-2001 13:32:00 Exam: MRI Hd &MRA N k wo&w &MRA Hd wo Indications: MRI MRA head and neck w/uzma ^bolus lanisocoria, lt arm ORIGINAL REPORT - 26-Jun-2001 16:48:00 Brain MR with contrast, contrast enhance d neck MRA, [place] of [place] MRA: Brain MR: No intracranial [...] or s ignificant stenosis. No vascular anomalies. [place] MRA: Normal examination . No evidence of vascular anomaly. No occlusion or significant stenosis. (QSF052) Ind: 110.543 Dia.120 Electronically signed by: Felipe Meadows M.D. [id number] 26-Jun-2001 16: 48 Jj Correia M.D. IMG MRI PROCEDURES EEG routine - awake and sleep (06/26/2001 10:16 AM CDT) Specimen (Source) Anatomical Collection Method Collection Time Re ceived Time Location / / Volume Laterality 06/26/2001 10:16 AM CDT [facility] - 06/26/2001 10:16 AM CDT ?? 26 Jun 2001 ? Electroencephalography ?Final Report ? Referring Physician: ??Nora ?Date: ??26 Jun 2001 ?? EEG Ocular Care Technician: ? Jimenez zuleta [id number] ?? Clinical Problem: ? Spell- r/o s [...] were activated by ?? sleep. ?? An color television console monitor during the recording showed a normal sinus rhythm with a rate of 52-61/minute, and an oximeter during a ?? portion of the recording showed a sa turation of 97-99 percent. Jimenez Jimenez (Signature date Jun 2001 14:14) Procedure Note Leoncio Jimenez M.D., Ph.D. - 26 Jun 2001 Electroencephalography Fin al Report Referring Physician: Nora Date : 26 Jun 2001 EEG Ocular Care Technician: Jimenez Jimenez [id number] Clinical Problem: Spell- r/o sz CLINICAL INTERPRETATION: [...] no abnormalities were activated by sleep. An color television console monitor during the recording melony wed a normal sinus rhythm with a rate of 52-61/minute, and an oximeter during a portion of the recording showed a satur ation of 97-99 percent. Jimenez Jimenez (Signature date Jun 2001 14:14) Historical Provider NEUROLOGY ORDERABLES Performing Organization Address City/State/ZIP Code Phon e Number HX [facility] [address] [place] [address], U ECG 12 Lead (06/25/2001 7:20 PM CDT) Specimen (Source) Anatomical Collection Method Collection Time Re ceived Time Location / / Volume Laterality 06/25/2001 7:20 PM CDT [facility] - 06/26/2001 4:46 AM CDT [id number] 19:20 VENTRICULAR RATE 66 Normal sinus rhythm Left atrial enlargement Otherwise normal ECG Previous tracing exists but is not avail able for comparison [id number]^MINA ??^ANIKET Procedure Note Aniket Cruz M.D. - 06/02/2017Form atting of this note might be different from the original. [id number] 19:20 VENTRICULAR RATE 66 Normal sinus rhythm Left atrial enlargement Otherwise normal ECG Previous tracing exists but is not avail able for comparison [id number]^MINA ALVARADO^ANIKET Historical Provider ECG ORDERABLES Performing Organization Address City/State/ZIP Code Phon e Number HX [facility] [address] [place] [address], U SA documented in this encounter Visit Diagnoses Not on filedocumented in this encounter
--- OUTSIDE RECORDS SUMMARY | 2022-02-02 09:28 | XMS_ITS | Encounter Summary ---
:1970 Author Organization [facility] Address [address] [place] [address] Care Team Providers Name Role Phone Unavailable Primary Care Provider Unavailable Encounter Details Date Type Department Care Team Description 04/01/2007 Hospital Encounter HX [facility] Yonas Lopez, INPT/OBSRV M.D. [address] [place] [phone] (Wo rk) [...]
--- OUTSIDE RECORDS SUMMARY | 2022-02-02 09:28 | XMS_ITS | Encounter Summary ---
:[address] [facility] Address [address] [place] [address] Care Team Providers Name Role Phone Unavailable Primary Care Provider Unavailable Encounter Details Date Type Department Care Team Description 06/07/2004 Hospital Encounter HX NO MAPPING Butch Mitchell M.D. [facility] [place], [place] [address] (Wo rk) Social History [...] Historical Provider Ser - 06/07/2004 12:00 AM NEWSPERSON [id number] Name: Laura Novak Birthdate: 1970 SSN: [id number] [facility] Allergy: Review of patient's allergies indicates [...] Call if heavy bleeding, severe cramps, or snbi065.4. Diet: regular Appointment(s): To see MD. Call for appointment with surgeon since you go to [place]. I have all of my belongings . I understand my discharge instructions. My medications were reviewed with me. Patient's Signature: Nurse Discharging this patient signature: RN Signature & Date: Lady Phan RN Date: 06/07/2004 Please see paper chart for additional discharge documentation info: (time, how & by). [facility] Document Id: [id number] documented in this encounter Plan of Treatment Not on filedocumented as of this encounter Visit Diagnoses Not on filedocumented in this encounter
--- OUTSIDE RECORDS SUMMARY | 2022-02-02 09:28 | XMS_ITS | Encounter Summary ---
:1970 Author Organization [facility] Address [address] [place] [address] Care Team Providers Name Role Phone Unavailable [...]
--- OUTSIDE RECORDS SUMMARY | 2022-02-02 09:28 | XMS_ITS | Encounter Summary ---
:1970 Author Organization [facility] Address [address] [place] [address] Care Team Providers Name Role Phone Unavailable [...]
--- OUTSIDE RECORDS SUMMARY | 2022-02-02 09:28 | XMS_ITS | Encounter Summary ---
:1970 Author Organization [facility] Address [address] [place] [address] Care Team Providers Name Role Phone Unavailable Primary Care Provider Unavailable Encounter Details Date Type Department Care Team Description 06/18/2004 Hospital Encounter HX [facility] Shahriar Marina M.D. [address] [place] [address] (Wo rk) Social History Tobacco [...] or relatives? How often do you attend muslim or More than 4 times per year 06/22/2019 alevism services? Do you belong to any clubs or No 06/22/2019 organizations such as muslim groups, unions, fraternal or athletic groups, or [...] Provider Kiran - 06/18/2004 12:00 AM CDT [id number] Patient is returning your call for her surgery results. She had surgery 06/06/2004 with you. Her # [phone]. [facility] Document Id: [id number] documented in this encounter Plan of Treatment Not on filedocumented as of this encounter Visit Diagnoses Not on filedocumented in this encounter
--- OUTSIDE RECORDS SUMMARY | 2022-02-02 09:28 | XMS_ITS | Encounter Summary ---
:1970 Author Organization [facility] Address [address] [place] [address] Care Team Providers Name Role Phone Unavailable Primary Care Provider Unavailable Encounter Details Date Type Department Care Team Description 08/27/2007 Hospital Encounter [facility]X [facility] INPT/OBSRV Lindy Palacios M.D. [address] [place], [place] [address] (Wo rk) Social History [...]
--- OUTSIDE RECORDS SUMMARY | 2022-02-02 09:28 | XMS_ITS | Encounter Summary ---
:1970 Author Organization [facility] Address [address] [place] [address] Care Team Providers Name Role Phone Unavailable [...]
--- OUTSIDE RECORDS SUMMARY | 2022-02-02 09:28 | XMS_ITS | Encounter Summary ---
:1970 Author Organization [facility] Address [address] [place] [address] Care Team Providers Name Role Phone Unavailable Primary Care Provider Unavailable Encounter Details Date Type Department Care Team Description 06/07/2004 Hospital Encounter HX [facility] Shahriar Marina M.D. [address] [place] [address] (Wo rk) Social History Tobacco [...] Parada M.D. - 06/07/2004 12:00 AM CST [id number] Date: 06/07/2004 Name: Laura Novak Birthdate: 1970 Soc.Sec.No: [id number] The patient was seen at: [facility] Restrictions if any: OFF Work from 06/06/04 until 07/19/04. Laura had major surgery 06/06/04. Butch Parada M.D. OBSTETRICS/GYNECOLOGY [facility] Source: [facility] Document Id: [id number] Miscellaneous - Butch Parada M.D. - 06/07/2004 12:00 AM CST [id number] [facility] [address] [facility], [address] Name: Laura Novak Birthdate: 1970 SSN: [id number] [facility] Admission Date: 06/06/04 Allergy: [...] [address] BUTCH PARADA 06/07/2004 Source: [facility] RWHXTRANSXRTFSYS Document Id: [id number] documented in this encounter Plan of Treatment Not on filedocumented as of this encounter Visit Diagnoses Not on filedocumented in this encounter
--- OUTSIDE RECORDS SUMMARY | 2022-02-02 09:28 | XMS_ITS | Encounter Summary ---
:1970 Author Organization [facility] Address [address] [place] [address] Care Team Providers Name Role Phone Unavailable Primary Care Provider Unavailable Encounter Details Date Type Department Care Team Description 01/13/2007 Hospital Encounter HX [facility] CAM INPT/OBSRV Lindy Palacios M.D. [address] [place], [place] [address] (Wo rk) Social History [...]
--- OUTSIDE RECORDS SUMMARY | 2022-02-02 09:28 | XMS_ITS | Encounter Summary ---
:1970 Author Organization [facility] Address [address] [place] [address] Care Team Providers Name Role Phone Unavailable [...]
--- OUTSIDE RECORDS SUMMARY | 2022-02-02 09:28 | XMS_ITS | Encounter Summary ---
:1970 Author Organization [facility] Address [address] [place] [address] Care Team Providers Name Role Phone Unavailable [...] weakne ss ORIGINAL REPORT - 25-Jun-2001 21:38:00 ([id number]) ?? Noncontrast head CT is neg ative. Ind: 101.5424 ?? Dia.120 ?? Electronically signed by: ?? Mamta Ford [phone] ([id number]) 25-Jun-2001 2 1:38 I have reviewed the films/images and agr ee with the above interpretation. Electronically signed by: ?? Chan Anaya MD. ??[id number] 26-Jun-2001 08:55 Procedure Note Abdoulaye Anaya M.D. - 06/13/2017Formattin g of this note might be different from the original. 25-Jun-2001 20:33:00 Exam: CT Head wo Indications: Left and right sided weakne ss ORIGINAL REPORT - 25-Jun-2001 21:38:00 ([id number]) Noncontrast head CT is negati ve. Ind: 101.5424 Dia.120 Electronically signed by: Mamta Ford [phone] ([id number]) 25-Jun-2001 2 1:38 I have reviewed the films/images and agr ee with the above interpretation. Electronically signed by: Chan Anaya MD. [phone] 26-Jun-2001 08:55 Alex Ledbetter M.D. IMMary CT PROCEDURES documented in this encounter Visit Diagnoses Not on filedocumented in this encounter
--- OUTSIDE RECORDS SUMMARY | 2022-02-02 09:28 | XMS_ITS | Encounter Summary ---
:1970 Author Organization [facility] Address [address] [place] [address] Care Team Providers Name Role Phone Unavailable [...]
--- OUTSIDE RECORDS SUMMARY | 2022-02-02 09:28 | XMS_ITS | Encounter Summary ---
:1970 Author Organization [facility] Address [address] [place] [address] Care Team Providers Name Role Phone Unavailable Primary Care Provider Unavailable Encounter Details Date Type Department Care Team Description 05/11/2004 Hospital Encounter HX [facility] Shahriar Marina M.D. [address] [place] [address] (Wo rk) Social History Tobacco [...] Historical Provider Ser - 05/11/2004 12:00 AM SANITATION WORKER [id number] SURGERY SCHEDULE CHECKLIST Patient Name: Laura Novak Date of : 1970 Gender: female Patient Phone numbers: [phone] (home) [phone] (work), (cell)[phone] Surgeon: Butch Mitchell M.D. DATE OF SURGERY: 06/06/2004 TIME OF SURGERY: TBD Place of Surgery: [place] Procedure/CPT Code: [id number] Diagnosis (reason for surgery)/Diagnosis Code: No diagnosis found. Case Type: AM ADMIT Pre-op MDVineet Christianson Date of Pre-op appt: TBD Type [...] the patient's primary location. Insurance/[place] ID number: [id number] Group #: {:if no insurance information please forward to [facility] CREDIT} Precertification Required? {to be completed by finance:[id number]} Credit Approval: {:to be completed by credit} DISCHARGE PLANNING ASSESSMENT: Plan after Discharge: [place] [place]:[id number]} Resident of: {[facility]:[id number]} How are you getting home/to other facility after discharge from hospital? Telephone #: TRIGGERS FOR MORE COMPLETE DISCHARGE PLANS: {[facility] [place] TRIGGER PLANS:758914} Person responsible for consent for procedure? {[facility] RESPONSIBLE PERSONS:131724} Patient {does:417756::does not} need further assessment to determine ability to provide for continued care and for activities of daily living (ADL's). RECOMMENDED DISCHARGE PLAN: Concerns: Referrals Completed: PREOP EDUCATION Date of Pre-0p Class: Hospital Information given: {YES IS DEFAULT/NO :[id number]::YES} Pt Education booklets: Pre-op letter for OOT [...] SCHEDULING P RW P RW PATIENT ACCOUNTS ([facility]) [facility] Document Id: [id number] documented in this encounter Plan of Treatment Not on filedocumented as of this encounter Visit Diagnoses Not on filedocumented in this encounter
--- OUTSIDE RECORDS SUMMARY | 2022-02-02 09:28 | XMS_ITS | Encounter Summary ---
:1970 Author Organization [facility] Address [address] [place] [address] Care Team Providers Name Role Phone Unavailable [...]
== END 2022-02-02 10:00 | disposition home or self-care (01) ==
PROVIDERS: Emergency Provider Emergency Medicine Emergency Medical Services; PCP Nurse Practitioner Family
DX: S82.401A Unspecified fracture of shaft of right fibula, initial encounter for closed fracture (principal); H81.09 Meniere's disease, unspecified ear
CPT/HCPCS: 73610; 99283; 99284

== ENCOUNTER 2022-02-12 17:30 | Outpatient (CLI) | payer OTHER, BC, SELFPAY ==
--- OUTSIDE RECORDS SUMMARY | 2022-02-12 17:33 | XMS_ITS | Encounter Summary ---
:1970 Author Organization [facility] Address [address] [place] [address] Care Team Providers Name Role Phone Roopa Lopez MD Primary Care Provider Reason for Visit Reason Comments Med Refill Encounter Details Date Type Department Care Team Description 11/14/2020 [place]ill [place], Insomnia, unspecified [address] MD type Rogelio Guerrero [place] [phone] [phone] [place] [address] Social History Tobacco Use Types Packs/Day Years [...] type documented in this encounter Care Teams Icing And Glaze Maker Relationship Specialty Start Date End Date Roopa Lopez MD PCP - General Family Medicine 07/15/19 02/26/[address] [place] [address] documented as of this encounter
--- OUTSIDE RECORDS SUMMARY | 2022-02-12 17:33 | XMS_ITS | Encounter Summary ---
:1970 Author Organization [facility] Address [address] [place] [address] Care Team Providers Name Role Phone Tiffanie Mcgovern APRN, CNP Primary Care Provider [phone] Reason for Visit Reason Comments Med Refill Encounter Details Date Type Department Care Team Description 11/22/2021 [place]ill [place] Postablative hypothyroidism [address] [place] Rogelio Pick[place] [phone] [facility] [address] [place] [phone] [place] [address] Social History Tobacco Use Types Packs/Day Years [...] they are sending her refill requests to eDnnis Mcgovern in [place]. Pt agreed. Telephone Encounter - Alyce Shah - 11/26/2021 9:01 AM CDT Noted. Telephone Encounter - Doris Garcia RN - 11/26/2021 8:34 AM CDT Left message on secured line for patient to contact PCP in [place] for refills and to advise pharmacyof change. [...] hypothyroidism documented in this encounter Care Teams Oxidized Finish Plater Relationship Specialty Start Date End Date Tiffanie Mcgovern, DOG BATHER, FILLER MIXER PCP - General Family Medicine 02/27/[address] [place] [address] documented as of this encounter
--- OUTSIDE RECORDS SUMMARY | 2022-02-12 17:33 | XMS_ITS | Encounter Summary ---
:1970 Author Organization [facility] Address [address] [place] [address] Care Team Providers Name Role Phone Tiffanie Mcgovern APRN, STRAPPING MACHINE OPERATOR Primary Care Provider [phone] Reason for Visit Reason Comments Cough Generalized Body Aches Nasal Congestion Encounter Details Date Type Department Care Team Description 02/27/2021 Office Visit Feliciano Restrepo, COVID-19 virus infection (Pr imary Dx); [address] MD Rhea Guerrero [place] [address] [place] [address] Robert Guerrero [place]NESTO [phone] [address] Social History Tobacco Use Types Packs/Day Years [...] Comments Blood Pressure 126/84 02/27/2021 9:40 AM PROTECTIVE SIGNAL INSTALLER HELPER Pulse 72 02/27/2021 9:40 AM PROTECTIVE SIGNAL INSTALLER HELPER Temperature 37.1 ??C (98.8 ??F) 02/27/2021 9:40 AM PROTECTIVE SIGNAL INSTALLER HELPER Respiratory Rate 12 02/27/2021 9:40 AM PROTECTIVE SIGNAL INSTALLER HELPER Oxygen Saturation 96% 02/27/2021 9:40 AM PROTECTIVE SIGNAL INSTALLER HELPER Inhaled Oxygen Concentration - - Weight 86.4 kg (190 lb 8 oz) 02/27/2021 9:40 AM PROTECTIVE SIGNAL INSTALLER HELPER Height - - Body Mass Index 28.77 [...] specific instructions regarding their return to work. [facility] was notified of positive test result. ECTIVE SIGNAL INSTALLER HELPER documented in this encounter Progress Notes Feliciano [...] or constipation. She just flew back from [place], [place] a couple days ago. Was celebrating daughter's 23rd birthday and went out a bit. 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 The sinus drainage and [...] specific instructions regarding their return to work. [facility] was notified of positive test result. Return if symptoms worsen or fail to improve. Note created using voice dictation software. ECTIVE SIGNAL INSTALLER HELPER documented in this encounter Plan of Treatment Not on filedocumented as of this encounter Procedures Procedure Name Priority Date/Time Associated Diagnosis Comme nts FLU(A/B), RUDOLPH ID Routine 02/27/2021 10:00 AM Cough R esults for this NOW, PCR PROTECTIVE SIGNAL INSTALLER HELPER procedure are i n the results section. COVID-19, RUDOLPH ID Routine 02/27/2021 10:00 AM Cough R esults for this NOW, PCR PROTECTIVE SIGNAL INSTALLER HELPER procedure are i n the results section. documented in this encounter Results Flu, Rudolph ID Now, PCR (02/27/2021 10:00 AM PROTECTIVE SIGNAL INSTALLER HELPER) Analysis Performed At [facility] Aspida Time Signature Flu Source Nasal 02/27/2021 [facility] 10:40 AM PROTECTIVE SIGNAL INSTALLER HELPER FALLS Influenza A, NEGATIVE 02/27/2021 [facility] PCR 10:40 AM PROTECTIVE SIGNAL INSTALLER HELPER FALLS Influenza B, NEGATIVE Negative 02/27/2021 [facility] JONES PCR 10:40 AM PROTECTIVE SIGNAL INSTALLER HELPER FALLS Flu Interp see below 02/27/2021 [facility] 10:40 AM PROTECTIVE SIGNAL INSTALLER HELPER FALLS Comment: Flu A Viral RNA Not Detected; Flu B Viral RNA Not Detected. Testing was performed using the Rudolph I D NOW A & B 2 Assay. Specimen Anatomical Collection Method Collection Time Receive d Time (Source) Location / / Volume Laterality Swab 02/27/2021 10:00 02/27/2021 AM PROTECTIVE SIGNAL INSTALLER HELPER 10:07 AM PROTECTIVE SIGNAL INSTALLER HELPER Feliciano Anderson MD LAB MOLECULAR DIAGNOSTICS OR DERABLES Performing Organization Address City/[facility]/ZIP Code Phon e Number [facility] ROBERT GUERRERO [address] [place] [address] (ABNORMAL) Covid-19, Rudolph ID Now, PCR (02/27/2021 10:00 AM PROTECTIVE SIGNAL INSTALLER HELPER) [facility] Method Time Signature Covid Source Nasal 02/27/2021 [facility] 10:40 AM PROTECTIVE SIGNAL INSTALLER HELPER FALLS Covid-19, ID POSITIVE (A) Negative 02/27/2021 [facility] JONES Now PCR 10:40 AM PROTECTIVE SIGNAL INSTALLER HELPER FALLS Comment: REPORTABLE DISEASE Agent. Must be report ed to [facility] within 1 working day. ??(Department rece iving report is responsible for filling out [facility]-Disease Report Card). Positive results do not [...] Laterality Swab (Nasal) 02/27/2021 10:00 02/27/2021 AM PROTECTIVE SIGNAL INSTALLER HELPER 10:07 AM PROTECTIVE SIGNAL INSTALLER HELPER Feliciano Anderson MD LAB MOLECULAR DIAGNOSTICS OR DERABLES Performing Organization Address City/State/ZIP Code Phon e Number [facility] ROBERT GUERRERO [address] [place] [address] documented in this encounter Visit Diagnoses Diagnosis COVID-19 virus infection - Primary Cough documented in this encounter Additional Health Concerns Infection Onset Date Last Indicated Resolved Time COVID-19 Rule Out 02/27/2021 02/27/2021 02/27/2021 10: 40 AM PROTECTIVE SIGNAL INSTALLER HELPER documented as of this encounter Care Teams Frame Wirer Relationship Specialty Start Date End Date Tiffanie Mcgovern, BEAD INSPECTOR, STRAPPING MACHINE OPERATOR PCP - General Family Medicine 02/27/[address] [place] [address] [place] [address] documented as of this encounter
--- OUTSIDE RECORDS SUMMARY | 2022-02-12 17:33 | XMS_ITS | Clinical Summary ---
:1970 Author Organization [facility] Address [address] [place] [address] Care Team Providers Name Role Phone Tiffanie Mcgovern APRN, KYLE Primary Care Provider [phone] Allergies Active Allergy Reactions Severity Noted Date [...] and states h er daughter is a strainer mill operator. Also trying to lose weight and watching [...] Comments Blood Pressure 126/84 02/27/2021 9:40 AM PLATE MAKER ZINC Pulse 72 02/27/2021 9:40 AM PLATE MAKER ZINC Temperature 37.1 ??C (98.8 ??F) 02/27/2021 9:40 AM PLATE MAKER ZINC Respiratory Rate 12 02/27/2021 9:40 AM PLATE MAKER ZINC Oxygen Saturation 96% 02/27/2021 9:40 AM PLATE MAKER ZINC Inhaled Oxygen Concentration - - Weight 86.4 kg (190 lb 8 oz) 02/27/2021 9:40 AM PLATE MAKER ZINC Height 173.3 cm (5' 8.23) 09/20/2020 4:05 [...] ss Type Group BCBS OF BCBS OF [id number] 2020[place] [address] [place] [address] Care Teams Dispensing Operator Relationship Specialty Start Date End Date Tiffanie Mcgovern, YOUTH DEVELOPMENT PROFESSIONAL, PHOTO OPTICS TECHNICIAN PCP - General Family Medicine 02/27/[address] [place] [address] [place] [id number]
--- OUTSIDE RECORDS SUMMARY | 2022-02-12 17:33 | XMS_ITS | Encounter Summary ---
:1970 Author Organization [facility] Address [address] [place] [address] Care Team Providers Name Role Phone Roopa Lopez MD Primary Care Provider Reason for Visit Reason Comments Med Refill Encounter Details Date Type Department Care Team Description 10/22/2020 Refill Roopa Caldwell, History of coronary [address] [facility] 20 vasospasm [place] [address] [phone] [place] [address] Social History Tobacco Use Types Packs/Day Years [...] vasospasm documented in this encounter Care Teams Chief Service Dispatcher Relationship Specialty Start Date End Date Roopa Lopez MD PCP - General Family Medicine 07/15/19 02/26/21 [address] [place] [address] documented as of this encounter
--- OUTSIDE RECORDS SUMMARY | 2022-02-12 17:33 | XMS_ITS | Encounter Summary ---
:1970 Author Organization [facility] Address [address] [place] [address] Care Team Providers Name Role Phone Roopa Lopez MD Primary Care Provider Reason for Visit Reason Comments Migraine Encounter Details Date Type Department Care Team Description 09/20/2020 Office Visit Roopa Caldwell Migraine without status migr ainosus, not intractable, unspecified migraine type (Primary Dx); [address] [facility] 20 MD Raheel [facility] [place], [place] [address] 8015 [facility] 20 [place] [address] Social History Tobacco Use Types Packs/Day Years [...] [facility] and [facility] [...] dose documented in this encounter Care Teams Television News Anchor Relationship Specialty Start Date End Date Roopa Lopez MD PCP - General Family Medicine 07/15/19 02/26/[address] [place] [address] documented as of this encounter
--- OUTSIDE RECORDS SUMMARY | 2022-02-12 17:33 | XMS_ITS | Encounter Summary ---
:1970 Author Organization [facility] Address [address] [place] [address] Care Team Providers Name Role Phone Roopa Lopez MD Primary Care Provider Encounter Details Date Type Department Care Team Description 10/10/2020 Orders Only Roopa Caldwell Other migraine without [address] MD Raheel status migrainosus, not Rogelio Guerrero [place] [address] intractable (Primary [phone] [facility]) [place] [address] Social History Tobacco Use Types Packs/Day Years [...] Primary documented in this encounter Care Teams Inductor Tester Relationship Specialty Start Date End Date Roopa Lopez MD PCP - General Family Medicine 07/15/19 02/26/[address] [place] [address] documented as of this encounter
--- OUTSIDE RECORDS SUMMARY | 2022-02-12 17:33 | XMS_ITS | Encounter Summary ---
:1970 Author Organization [facility] Address [address] [place] [address] Care Team Providers Name Role Phone Roopa Lopze MD Primary Care Provider Reason for Visit Reason Comments Graves' Disease Hypothyroidism Encounter Details Date Type Department Care Team Description 09/27/2020 [facility] Endocrinology Mutkt, Postablative hypothyroidism (Primary Dx); [address] MD Valerie [place] [address] Social History Tobacco Use Types Packs/Day Years [...] lose weight. Looking at a supplement called [employer] level has been ok. Has been exercising and walking. No bowel concerns. No tremors or palpitations. No temperature intolerance. Reports continued stress but mood being stable. Has been noticing more migraines. SOCIAL HISTORY: . Lives with her . Has 2 children aged 21 and 17. 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 Review of systems: As in HPI. All [...] disease documented in this encounter Care Teams Retail Equipment Associate Relationship Specialty Start Date End Date Roopa Lopez MD PCP - General Family Medicine 07/15/19 02/26/21 [address] [place] [address] documented as of this encounter
--- OUTSIDE RECORDS SUMMARY | 2022-02-12 17:33 | XMS_ITS | Encounter Summary ---
:1970 Author Organization [facility] Address [address] [place] [address] Care Team Providers Name Role Phone Roopa Lopez MD Primary Care Provider Encounter Details Date Type Department Care Team Description 01/09/2021 Orders Only SE Family Med Roopa Lopez MD [address] [facility] [address] [place] [address] [place], [place] [phone] (Wo rk) Social History Tobacco Use Types [...] on filedocumented in this encounter Care Teams Records Tech Relationship Specialty Start Date End Date Roopa Lopez MD PCP - General Family Medicine 07/15/19 02/26/[address] [place] [address] documented as of this encounter
--- OUTSIDE RECORDS SUMMARY | 2022-02-12 17:33 | XMS_ITS | Encounter Summary ---
:1970 Author Organization [facility] Address [address] [place] [address] Care Team Providers Name Role Phone Roopa Lopez MD Primary Care Provider Encounter Details Date Type Department Care Team Description 09/20/2020 Telephone [place] Roopa Lopez MD [address] [facility] [address] [place], [place] [address] [place], [place] [phone] (Wo rk) Social History Tobacco Use Types [...] Primary documented in this encounter Care Teams Plasma Center Nurse Relationship Specialty Start Date End Date Roopa Lopez MD PCP - General Family Medicine 07/15/19 02/26/[address] [place] [address] documented as of this encounter
--- OUTSIDE RECORDS SUMMARY | 2022-02-12 17:33 | XMS_ITS | Encounter Summary ---
:1970 Author Organization [facility] Address [address] [place] [address] Care Team Providers Name Role Phone Roopa Lopez MD Primary Care Provider Encounter Details Date Type Department Care Team Description 07/06/2020 Orders Only SE Endocrinology Muthusamy, Postablative [address] [place] [address] Social History Tobacco Use Types Packs/Day Years [...] hypothyroidism documented in this encounter Care Teams Contract Law Specialist Relationship Specialty Start Date End Date Roopa Lopez MD PCP - General Family Medicine 07/15/19 02/26/[address] [place] [address] documented as of this encounter
--- OUTSIDE RECORDS SUMMARY | 2022-02-12 17:33 | XMS_ITS | Encounter Summary ---
:1970 Author Organization [facility] Address [address] [place] [address] Care Team Providers Name Role Phone Roopa Lopez MD Primary Care Provider Reason for Visit Reason Comments Med Refill Encounter Details Date Type Department Care Team Description 07/05/2020 Refill SE Endocrinology Muthusamy, Postablative hypothyroidism [address] [place] [address] Social History Tobacco Use Types Packs/Day Years [...] Martinez LPN - 07/05/2020 7:47 AM CDT [facility] is requesting medication. Previous script was sent to [facility] Last visit in provider department: [...] documented in this encounter Care Teams Senior Dot Net Developer Relationship Specialty Start Date End Date Roopa Lopez MD PCP - General Family Medicine 07/15/19 02/26/[address] [place] [address] documented as of this encounter
--- OUTSIDE RECORDS SUMMARY | 2022-02-12 17:33 | XMS_ITS | Encounter Summary ---
:1970 Author Organization [facility] Address [address] [place] [address] Care Team Providers Name Role Phone Roopa Lopez MD Primary Care Provider Reason for Visit Reason Comments Follow-up Encounter Details Date Type Department Care Team Description 06/29/2020 Office Visit Rogelio Guerrero Catalina Pennington A, Moderate episode of recurren t major depressive disorder (HCC) (Primary Dx); [address] [employer] Anxiety; ER[place]ST[place] Savage [address] Insomnia, unspecified type; [phone] [place], [place] Migraine with aura and without status migrainosus, not intractable; [address] Weight disorder; [phone] Urinary inconti nence, unspecified type (Work) Social [...] ??? Follow-up HPI Patient presents to the [facility] for questions about weight gain and [...] therapy and states her daughter is a workplace trainer and assessor. Also trying to lose weight and watching [...] type documented in this encounter Care Teams Group Leader Relationship Specialty Start Date End Date Roopa Lopez MD PCP - General Family Medicine 07/15/19 02/26/[address] [place] [address] documented as of this encounter
--- OUTSIDE RECORDS SUMMARY | 2022-02-12 17:33 | XMS_ITS | Encounter Summary ---
:1970 Author Organization [facility] Address [address] [place] [address] Care Team Providers Name Role Phone Tiffanie Mcgovern APRN, KYLE Primary Care Provider [phone] Reason for Visit Reason Comments Med Refill Encounter Details Date Type Department Care Team Description 04/03/2021 Refill [place] Roopa Lopez MD Anxiety [address] [place], [place] [address] [place], [place] [phone] [phone] (Wo rk) Social History Tobacco Use Types [...] AM CST Rx faxed to [facility] LE WORKER Telephone Encounter - Chelsea Romero RN - 04/04/2021 10:53 AM CST Please fax Rx to pharmacy. LE WORKER Telephone Encounter - Celsa Childs MA - [...] Last 2 Encounters: 02/27/21 126/84 09/20/20 126/88 LE WORKER documented in this encounter Plan of Treatment Not on filedocumented as of this encounter Visit Diagnoses Diagnosis Anxiety Anxiety state, unspecified documented in this encounter Additional Health Concerns Infection Onset Date Last Indicated Resolved Time COVID-19 Confirmed 02/27/2021 02/27/2021 05/28/2021 8: 17 PM CDT documented as of this encounter Care Teams Shipfitter Relationship Specialty Start Date End Date Tiffanie Mcgovern, RN HOUSE SUPERVISOR, MANAGER LONG TERM CARE PCP - General Family Medicine 02/27/[address] [place] [address] [place] [address] documented as of this encounter
--- OUTSIDE RECORDS SUMMARY | 2022-02-12 17:33 | XMS_ITS | Encounter Summary ---
:1970 Author Organization [facility] Address [address] [place] [address] Care Team Providers Name Role Phone Roopa Lopez MD Primary Care Provider Reason for Visit Reason Comments Med Refill Encounter Details Date Type Department Care Team Description 09/03/2020 [place] GUSTAVO (generalized anxiety [address] [facility] MD disorder) [place], [place] [address] [address] [facility] 20 [place] [phone] [place] Ramirez [address] Social History Tobacco Use Types Packs/Day Years [...] disorder documented in this encounter Care Teams Hull Molder Relationship Specialty Start Date End Date Roopa Lopez MD PCP - General Family Medicine 07/15/19 02/26/21 [address] [place] [address] documented as of this encounter
--- OUTSIDE RECORDS SUMMARY | 2022-02-12 17:33 | XMS_ITS | Encounter Summary ---
:1970 Author Organization [facility] Address [address] [place] [address] Care Team Providers Name Role Phone Roopa [...] Primary documented in this encounter Care Teams Algebra Tutor Relationship Specialty Start Date End Date Roopa Lopez MD PCP - General Family Medicine 07/15/19 02/26/[address] [place] [address] documented as of this encounter
--- OUTSIDE RECORDS SUMMARY | 2022-02-12 17:33 | XMS_ITS | Encounter Summary ---
:[address] [facility] Address [address] [place] [address] Care Team Providers Name Role Phone Roopa [...] LAB BLOOD ORDERABLES Performing Organization Address City/[facility]/ZIP Code Phon e Number [facility] [address] [place] [address] TSH (09/25/2020 8:21 AM CDT) athologist Signature [...] LAB BLOOD ORDERABLES Performing Organization Address City/[facility]/ZIP Code Phon e Number [facility] [address] [place] [address] documented in this encounter Visit Diagnoses Diagnosis Postablative hypothyroidism Other postablative hypothyroidism documented in this encounter Care Teams Calculation Reviewer Relationship Specialty Start Date End Date Roopa Lopez MD PCP - General Family Medicine 07/15/19 02/26/21 [address] [facility] 20 [place] [address] documented as of this encounter
--- OUTSIDE RECORDS SUMMARY | 2022-02-12 17:33 | XMS_ITS | Encounter Summary ---
:1970 Author Organization [facility] Address [address] [place] [address] Care Team Providers Name Role Phone Tiffanie Mcgovern APRN, INFORMATION COORDINATOR Primary Care Provider Reason for Visit Reason Onset Date Comments Med Refill 06/13/2021 Encounter Details Date Type Department Care Team Description 06/13/2021 Refill Roopa Caldwell, Mixed hyperlipidemia [address] [place] Concepcion [address] [phone] [place] [address] (Wo rk) Social History Tobacco Use Types [...] hyperlipidemia documented in this encounter Care Teams Lumber Trimmer Relationship Specialty Start Date End Date Tiffanie Mcgovern APRN, INFORMATION COORDINATOR PCP - General Family Medicine 02/27/[address] [place] [address] [place] [address] documented as of this encounter
--- OUTSIDE RECORDS SUMMARY | 2022-02-12 17:33 | XMS_ITS | Encounter Summary ---
:1970 Author Organization [facility] Address [address] [place] [address] Care Team Providers Name Role Phone Roopa [...] Urine 185 mg/dL 06/29/2020 3:02 PM CDT [facility] Comment: No established reference range. Microalb/Creat Ratio 4 0 - 24 mg/g 06/29/2020 3:0 2 PM CDT [facility] Specimen Anatomical Collection Method Collection Time Receive d Time (Source) Location / / Volume Laterality Urine 06/29/2020 8:30 AM CDT 12:33 PM CDT Catalina Pennington APRN, DOCK COORDINATOR LAB URINE ORDERABLES Performing Organization Address City/State/ZIP Code Phon e Number [facility] [address] [place] [address] documented in this encounter Visit Diagnoses Diagnosis Mixed hyperlipidemia documented in this encounter Care Teams Supervisor Garage Relationship Specialty Start Date End Date Roopa Lopez MD PCP - General Family Medicine 07/15/19 02/26/21 [address] [place] [address] documented as of this encounter
--- OUTSIDE RECORDS SUMMARY | 2022-02-12 17:33 | XMS_ITS | Encounter Summary ---
:1970 Author Organization [facility] Address [address] [place] [address] Care Team Providers Name Role Phone Roopa [...] 8:30 AM Postablative Results f or this INSPECTOR EXPERIMENTAL ASSEMBLY hypothyroidism procedure are in the results section. T4, FREE Routine 02/21/2021 8:30 AM Postablative Results f or this INSPECTOR EXPERIMENTAL ASSEMBLY hypothyroidism procedure are in the results section. documented in this encounter Results T4, free (02/21/2021 8:30 AM INSPECTOR EXPERIMENTAL ASSEMBLY) P athologist Signature Free T4 1.24 0.78 - 2.19 02/21/2021 [facility] ng/dL 2:16 PM [facility]IMENT[facility] Comment: The results from this [...] Volume Laterality Blood 02/21/2021 8:30 AM 1 INSPECTOR EXPERIMENTAL ASSEMBLY 12:39 PM INSPECTOR EXPERIMENTAL ASSEMBLY Valerie Major MD LAB BLOOD ORDERABLES Performing Organization Address [facility] Phon e Number [facility] [address] [place] [address] TSH (02/21/2021 8:30 AM INSPECTOR EXPERIMENTAL ASSEMBLY) athologist Signature TSH, Sensitive 2.17 0.46 - 02/21/2021 [facility] 4.68 mIU/L 2:17 PM [facility]IMENT[facility] Comment: The results from this [...] Volume Laterality Blood 02/21/2021 8:30 AM 1 INSPECTOR EXPERIMENTAL ASSEMBLY 12:39 PM INSPECTOR EXPERIMENTAL ASSEMBLY Valerie Major MD LAB BLOOD ORDERABLES Performing Organization Address City/[facility] Phon e Number [facility] [address] [place] [address] documented in this encounter Visit Diagnoses Diagnosis Postablative hypothyroidism Other postablative hypothyroidism documented in this encounter Care Teams Drive In Waiter/Waitress Relationship Specialty Start Date End Date Roopa Lopez MD PCP - General Family Medicine 07/15/19 02/26/[address] [place] [address] documented as of this encounter
--- OUTSIDE RECORDS SUMMARY | 2022-02-12 17:33 | XMS_ITS | Encounter Summary ---
:[address] [facility] Address [address] [place] [address] Care Team Providers Name Role Phone Tiffanie Mcgovern APRN, KYLE Primary Care Provider [phone] Reason for Visit Reason Comments Med Refill Encounter Details Date Type Department Care Team Description 09/13/2021 [place]ill [place], GUSTAVO (generalized anxiety [address] [facility] 20 MD disorder) Rogelio Guerrero MD [address] [phone] [place] [address] Social History Tobacco Use Types Packs/Day Years [...] disorder documented in this encounter Care Teams District Manager Postal Service Relationship Specialty Start Date End Date Tiffanie Mcgovern, SOCIAL WORK SPECIALIST, WATCH CASE POLISHER PCP - General Family Medicine 02/27/[address] [place] [address] [place] [address] documented as of this encounter
--- OUTSIDE RECORDS SUMMARY | 2022-02-12 17:33 | XMS_ITS | Encounter Summary ---
:1970 Author Organization [facility] Address [address] [place] [address] Care Team Providers Name Role Phone Tiffanie Mcgovern APRN, KYLE Primary Care Provider [phone] Reason for Visit Reason Comments Med Refill Encounter Details Date Type Department Care Team Description 06/11/2021 Refill [facility] Endocrinology Muthusamy, Postablative hypothyroidism [address] [place] [address] Social History Tobacco Use Types Packs/Day Years [...] hypothyroidism documented in this encounter Care Teams Account Information Clerk Relationship Specialty Start Date End Date Tiffanie Mcgovern, MACHINIST LINOTYPE, POST ACUTE CARE NURSE PCP - General Family Medicine 02/27/[address] [place] [address] [place] [id number] documented as of this encounter
--- OUTSIDE RECORDS SUMMARY | 2022-02-12 17:34 | XMS_ITS | Encounter Summary ---
:1970 Author Organization [facility] Address [address] [place] [address] Care Team Providers Name Role Phone Roopa Lopez MD Primary Care Provider Reason for Visit Reason Comments Med Refill Encounter Details Date Type Department Care Team Description 05/22/2020 [place]ill [place], Insomnia, unspecified [address] MD type Rogelio Guerrero ERNESTO [phone] [facility] [address] [place] [phone] [place] [phone] Social History Tobacco Use Types Packs/Day Years [...] type documented in this encounter Care Teams Occupational Safety And Health Manager Relationship Specialty Start Date End Date Roopa Lopez MD PCP - General Family Medicine 07/15/19 02/26/[address] [place] [address] documented as of this encounter
--- OUTSIDE RECORDS SUMMARY | 2022-02-12 17:34 | XMS_ITS | Encounter Summary ---
:[address] [facility] Address [address] [place] [address] Care Team Providers Name Role Phone Roopa Lopez MD Primary Care Provider Encounter Details Date Type Department Care Team Description 02/18/2020 Lab [facility] Screening examination for [facility] inf ectious disease [address] [place] [address] Social History Tobacco Use Types [...] Res ults for this RNA DETECTION, V DIRECTOR BEHAVIORAL HEALTH examination for procedur e are in infectious disease the resul ts section. documented in this encounter Results SARS Coronavirus 2 RNA detection, v (02/18/2020 7:58 AM DIRECTOR BEHAVIORAL HEALTH) [facility] Method Time Signature SARS Covid Nasopharyngeal 02/18/2020 [facility] specimen 4:41 PM [facility] source Patient Race White 02/18/2020 [facility] 4:41 PM [facility] Patient DECLINE 02/18/2020 [facility] Ethnicity 4:41 PM [facility] SARS CoV2 Undetected Undetected 02/18/2020 [facility] RNA 4:41 PM [facility] Comment: SARS-CoV-2 RNA absent. This result does not rule out COVID-19 in the patient, as the sensitiv ity of the test depends on the timing of the specimen co llection and the quality of the specimen. Result should b e correlated with patient's history and clinical presentat ion. Method - 02/18/2020 4:41 PM DIRECTOR BEHAVIORAL HEALTH [facility] Comment: THFSH- This test uses the TaqPath COVID- 19 Combo Kit ([employer] Murray.) and is performed on the [employer] magnetic particle processor and [employer] Fast Dx Real-Time PCR System. It has rec eived Emergency Use Authorization (EUA) by the U.S. Food and Drug Administration. Performance characterist ics were verified by [facility] in a manner consistent wi CLIA requirements. Fact sheets for this Emergency Use Autho rization (EUA) can be found at the following links: https://www.fda.gov/media/348422/downloa d for Healthcare Providers https://www.fda.gov/media/267628/downloa d for Patients Test Performed by: [place] [address] Director Ambulatory: Butch Guerrero M.D. Ph. D.; CLIA# [id number] Specimen Anatomical Collection Method Collection Time Receive d Time (Source) Location / / Volume Laterality Swab 02/18/2020 7:58 AM 0 9:28 (Nasopharyngeal) DIRECTOR BEH[facility]IORAL HEALTH AM [facility] Lina Goldstein APRN, MONEY POSITION OFFICER LAB MOLECULAR DIAGNOSTICS O RDERABLES Performing Organization Address City/State/ZIP Code Phon e Number [facility] see result attachment for specific address documented in this encounter Visit Diagnoses Diagnosis Screening examination for infectious dis ease Screening examination for unspecified in fectious disease documented in this encounter Additional Health Concerns Infection Onset Date Last Indicated Resolved Time COVID-19 Rule Out 02/18/2020 02/18/2020 02/18/2020 4:4 1 PM DIRECTOR BEH[facility]IORAL HEALTH documented as of this encounter Care Teams [employer] Lieutenant Relationship Specialty Start Date End Date Roopa Lopez MD PCP - General Family Medicine 07/15/19 02/26/[address] [place] [address] documented as of this encounter
--- OUTSIDE RECORDS SUMMARY | 2022-02-12 17:34 | XMS_ITS | Encounter Summary ---
:1970 Author Organization [facility] Address [address] [place] [address] Care Team Providers Name Role Phone Roopa Lopez MD Primary Care Provider Reason for Visit Reason Onset Date Comments RX 04/28/2020 Encounter Details Date Type Department Care Team Description 04/28/2020 Telephone [place]ark[place] APRN, TERRITORY SERVICE REPRESENTATIVE RX [address] [place] [address] [place] [address] [phone] (Wo rk) Social History Tobacco Use Types [...] angina. Called and informed pharmacy and patient. ING INSTRUCTOR Telephone Encounter - Chelsea Romero RN - 04/28/2020 11:23 AM CST Pharmacy informed. ING INSTRUCTOR Telephone Encounter - Catalina Pennington APRN, CNP - 04/28/2020 10:44 AM CST Max 200mg/24hr. ING INSTRUCTOR Telephone Encounter - Chelsea Romero RN - 04/28/2020 10:01 AM CST Pharmacy has a question on patients Imitrex rx. They wanted to know if there is a max daily dose forthis medication? ING INSTRUCTOR Telephone Encounter - Tammi Bar - 04/28/2020 9:32 AM CST Pharmacy has questions on RX given yesterday. Please call [phone]. ING INSTRUCTOR documented in this encounter Plan of Treatment Not on filedocumented as of this encounter Visit Diagnoses Not on filedocumented in this encounter Care Teams Manufacturer'S Representative Relationship Specialty Start Date End Date Roopa Lopez MD PCP - General Family Medicine 07/15/19 02/26/21 [address] [place] [address] documented as of this encounter
--- OUTSIDE RECORDS SUMMARY | 2022-02-12 17:34 | XMS_ITS | Encounter Summary ---
:1970 Author Organization [facility] Address [address] [place] [address] Care Team Providers Name Role Phone Roopa Lopez MD Primary Care Provider Encounter Details Date Type Department Care Team Description 06/27/2020 Lab Robert Guerrero History of coronary vasospas m; [address] Mixed hyperlipidemia; Robert Guerrero ERNESTO [address] [address] Essential hypertension; [phone] Postablative hy pothyroidism Social History Tobacco Use [...] AM CDT) athologist Signature GFR >60 06/27/2020 [facility] 2:13 PM CDT [facility] >60 06/27/2020 [facility] [place] GFR 2:13 PM CDT [facility] Comment: GFR calculated from serum creatinine v alue Chronic Kidney Disease less than 60 mL/m in/1.73 m2 Kidney Failure less than 15 mL/min/1.73 m2 Note: effective 07/23/06 IDMS-Traceable MDRD Study Equation used. Specimen Anatomical Collection Method Collection Time Receive d Time (Source) Location / / Volume Laterality 06/27/2020 8:27 AM 8:27 CDT AM CDT Catalina Pennington APRN, BONE PROCESS OPERATOR LAB BLOOD ORDERABLES Performing Organization Address City/State/ZIP Code Phon e Number [facility] [address] [place] [phone] T4, free (06/27/2020 8:27 AM CDT) athologist Signature Free T4 1.31 0.78 - 2.19 06/27/2020 [facility] ng/dL 2:53 PM CDT [facility] Comment: [...] MD LAB BLOOD ORDERABLES Performing Organization Address [facility]/ZIP Code Phon e Number [facility] [address] [place] [address] (ABNORMAL) TSH (06/27/2020 8:27 AM CDT) Analysis [...] LAB BLOOD ORDERABLES Performing Organization Address City/[facility]/ZIP Code Phon e Number [facility] [address] [place] [address] (ABNORMAL) Comprehensive metabolic panel (06/27/2020 8:27 AM CDT) Patholo gist Method Time Signature Total Protein 7.3 6.3 - 8.2 06/27/2020 [facility] g/dL 2:13 PM CDT [facility] Albumin, Serum 4.2 3.5 - 5.0 06/27/2020 [facility] g/dL 2:13 PM [facility] Total Bilirubin <0.7 0.1 - 1.0 06/27/2020 [facility] mg/dL 2:13 PM [facility] AST 26 8 - 43 U/L 06/27/2020 [facility] 2:13 PM [facility] Alkaline 66 38 - 128 06/27/2020 [facility] Phosphatase U/L 2:13 PM [facility] ALT (SGPT) 19 0 - 34 U/L 06/27/2020 [facility] 2:13 PM [facility] Sodium 139 135 - 145 06/27/2020 [facility] mEq/L 2:13 PM [facility] Potassium 4.1 3.5 - 5.1 06/27/2020 [facility] mEq/L 2:13 PM [facility] Chloride 106 98 - 107 06/27/2020 [facility] mEq/L 2:13 PM [facility] CO2 27 22 - 29 06/27/2020 [facility] mmol/L 2:13 PM [facility] BUN 17 5 - 25 06/27/2020 [facility] mg/dL 2:13 PM [facility] Creatinine 0.7 0.4 - 1.2 06/27/2020 [facility] mg/dL 2:13 PM [facility] Glucose 105 (H) 70 - 100 06/27/2020 [facility] mg/dL 2:13 PM [facility] Calcium, Total,S 9.3 8.4 - 10.2 06/27/2020 [facility] mg/dL 2:13 PM [facility] Specimen Anatomical Collection Method Collection Time Receive d Time (Source) Location / / Volume Laterality Blood 06/27/2020 8:27 AM CDT 12:50 PM CDT Catalina Pennington APRN, CNP LAB BLOOD ORDERABLES Performing Organization Address City/State/ZIP Code Phon e Number [facility] [address] [place] [address] Hemoglobin A1c (06/27/2020 8:27 AM CDT) athologist Signature Hemoglobin A1C 5.4 4.0 - 5.6 06/27/2020 [facility] % A1C 2:09 PM [facility] Comment: Reference Range 4.0-5.6% [...] Address City/State/ZIP Code Phon e Number [facility] [address] [place] [address] Lipid panel (06/27/2020 8:27 AM CDT) P athologist Signature Cholesterol 166 0 - 199 06/27/2020 [facility] mg/dL 2:13 PM [facility] Comment: Recommended by National Cholesterol Education Program (ATP III) -------- Cholesterol Ranges -------- <200 ?Desirable 200-239 ? Borderline high >=240 ? High Triglycerides 126 0 - 149 mg/dL 06/27/2020 2:13 PM T [facility] Comment: -------- TRIG Ranges -------- <150 ?Normal 150-199 ? Borderline high 200-499 ? High >=500 ? Very high HDL 58 40 - 250 mg/dL 06/27/2020 2:13 PM CDT [facility] Comment: -------- HDL Ranges -------- <40 ?Low 40-59 ?Normal >=60 ? Optimal LDL Calculated 83 0 - 99 mg/dL 06/27/2020 2:13 PM CDT [facility] Comment: -------- LDL Ranges -------- <100 ? Optimal 100-129 ?Near optimal/above op timal 130-159 ?Borderline high 160-189 ?High >=190 ?Very high Fasting? Yes 06/27/2020 8:31 AM CDT [facility] Specimen Anatomical Collection Method Collection Time Receive d Time (Source) Location / / Volume Laterality Blood 06/27/2020 8:27 AM 1 CDT 12:50 PM CDT Catalina Pennington APRN, CNP LAB BLOOD ORDERABLES Performing Organization Address City/[facility]/ZIP Code Phon e Number [facility] [address] [place] [address] Magnesium (06/27/2020 8:27 AM CDT) P athologist Signature Magnesium 2.0 1.6 - 2.3 06/27/2020 [facility] mg/dL 2:13 PM CDT [facility] Specimen Anatomical Collection Method Collection Time Receive d Time (Source) Location / / Volume Laterality Blood 06/27/2020 8:27 AM 1 CDT 12:50 PM CDT Catalina Pennington APRN, CNP LAB BLOOD ORDERABLES Performing Organization Address City/State/ZIP Code Phon e Number [facility] [address] [place] [address] documented in this encounter Visit Diagnoses Diagnosis History of coronary vasospasm Mixed hyperlipidemia Essential hypertension Unspecified essential hypertension Postablative hypothyroidism Other postablative hypothyroidism documented in this encounter Care Teams Transverse Abdominal Muscle Nurse Relationship Specialty Start Date End Date Roopa Lopez MD PCP - General Family Medicine 07/15/19 02/26/[address] [place] [address] documented as of this encounter
--- OUTSIDE RECORDS SUMMARY | 2022-02-12 17:34 | XMS_ITS | Encounter Summary ---
:1970 Author Organization [facility] Address [address] [place] [address] Care Team Providers Name Role Phone Roopa Lopez MD Primary Care Provider Reason for Visit Reason Onset Date Comments Lab request 02/14/2020 Encounter Details Date Type Department Care Team Description 02/14/2020 Telephone [facility] Endocrinology Valerie Major MD Lab request [address] [place] [address] Social History Tobacco Use Types Packs/Day Years [...] of above message and verbalized an understanding. [employer] HAND[employer]ER Telephone Encounter - Valerie Major MD - 02/14/2020 12:10 PM CST Check TSH and FT4 now. Order placed. [employer] HAND[employer]ER Telephone Encounter - Jo Ann Anaya MA [...] if she can go in for labs. [employer] HAND[employer]ER documented in this encounter Plan of Treatment Not on filedocumented as of this encounter Results TSH (02/14/2020 4:01 PM M[employer]ITIONS HANDLER) athologist Signature TSH, Sensitive 0.93 0.46 - 02/15/2020 [facility] L 4.68 mIU/L 3:36 PM [facility] Comment: The results from this [...] Laterality Blood 02/14/2020 4:01 PM 0 2:29 M[employer]S HAND[employer]ER PM [employer] HAND[employer]ER Valerie Major MD LAB BLOOD ORDERABLES Performing Organization Address City/State/ZIP Code Phon e Number [facility] [address] [place] [address] T4, free (02/14/2020 4:01 PM MUNITIONS HANDLER) athologist Signature Free T4 1.07 0.78 - 2.19 02/15/2020 [facility] ng/dL 3:25 PM [facility] Comment: The results from this [...] Laterality Blood 02/14/2020 4:01 PM 0 2:29 [employer] HAND[employer] PM [employer] HAND[employer]ER Valerie Major MD LAB BLOOD ORDERABLES Performing Organization Address City/State/ZIP Code Phon e Number [facility] [address] [place] [address] documented in this encounter Visit Diagnoses Diagnosis Postablative hypothyroidism - Primary Other postablative hypothyroidism documented in this encounter Care Teams Rat Farmer Relationship Specialty Start Date End Date Roopa Lopez MD PCP - General Family Medicine 07/15/19 02/26/[address] [place] [address] documented as of this encounter
--- OUTSIDE RECORDS SUMMARY | 2022-02-12 17:34 | XMS_ITS | Encounter Summary ---
:1970 Author Organization [facility] Address [address] [place] [address] Care Team Providers Name Role Phone Roopa Lopez MD Primary Care Provider Reason for Referral Consultation (Routine) - Closed Specialty Diagnoses / Procedures Referred By Contact Refer red To Contact Diagnoses Urinary incontinence, unspecified type Catalina Pennington APRN, CNP [facility] [address] [place] [address] [place] [address] Fax: Referral ID Status Reason Start Date Expiration Date Visits Requ ested Visits Authorized [id number] Closed 04/27/2020 04/27/2021 1 1 ET LAYER Reason for Visit Reason Comments Annual Exam Headache Bladder leakage menopause Encounter Details Date Type Department Care Team Description 04/27/2020 Office Visit Rogelio Guerrero Catalina Pennington Well adult exam (Primary Dx) ; [address] [facility] 20 [place] Mixed hyperlipidemia; [place] ERNESTO [address] Essential hypertension; [phone] [place], [place] Moderate episo de of recurrent major depressive disorder (HCC); [address] Anxiety; [phone] Migraine withou t aura and without status migrainosus, not intractable; (Work) Graves disease; [phone] Urinary inconti nence, unspecified type; (Fax) History [...] Comments Blood Pressure 130/67 04/27/2020 3:24 PM CARPET LAYER Pulse 57 04/27/2020 3:24 PM CARPET LAYER Temperature 36.5 ??C (97.7 ??F) 04/27/2020 3:24 PM CARPET LAYER Respiratory Rate 18 04/27/2020 3:24 PM CARPET LAYER Oxygen Saturation - - Inhaled Oxygen Concentration - - Weight 91.4 kg (201 lb 8 oz) 04/27/2020 3:24 PM CARPET LAYER Height 173.3 cm (5' 8.23) 04/27/2020 3:24 PM CARPET LAYER Body Mass Index 30.43 04/27/2020 3:24 PM CARPET LAYER documented in this encounter Patient Instructions Patient InstructionsTjennifer Pennington APRN, GANG INVESTIGATOR - 04/27/2020 3:20 PM CST Increase zocor to 40mg nightly [facility] oil in evening. Consider vitamin E 800iu [...] spasm. Refer to PT for pelvic exercises. ET LAYER documented in this encounter Progress Notes Catalina Pennington APRN, CNP - 04/27/2020 3:20 PM CST Subjective Patient ID: Laura Novak is a 49 y.o. female. Chief Complaint Patient presents with ??? Annual Exam ??? Headache ??? Bladder leakage ??? menopause HPI Patient presents to the [facility] for a physical exam. She has [...] (gastroesophageal reflux disease) ??? Headache History ??? [place] (myocardial infarction) ([facility]) 06/18/2010 History of cardiovascular disorder Acute OK secondary to Vasospasm. No stents required. No [...] file Gets together: Not on file Attends yarsani service: Not on file Active member of [...] Patient Instructions Increase zocor to 40mg nightly [facility] oil in evening. Consider vitamin E 800iu [...] spasm. Refer to PT for pelvic exercises. ET LAYER documented in this encounter Miscellaneous Notes Assessment & Plan Note - Catalina Pennington APRN, CNP - 04/28/2020 12:41 PM CARPET LAYER Associated Problem(s): Urinary incontinence Oxybutynin XL 5 mg daily. Refer to physical therapy. ET LAYER Assessment & Plan Note - Catalina Pennington APRN, CNP - 04/28/2020 12:40 PM CARPET LAYER Associated Problem(s): Essential hypertension Doing well no changes needed. If needed in the future, consider amlodipine 5- 10mg daily. ET LAYER Assessment & Plan Note - Catalina Pennington APRN, CNP - 04/28/2020 12:38 PM CARPET LAYER Associated Problem(s): Migraine with aura and without [...] any discomfort rightnow. Follow up in 3mons. ET LAYER documented in this encounter Plan of Treatment Scheduled Referrals Name Type Priority Associated Diagnoses Order S chedule Ambulatory External Outpatient Referral Routine Urinary O rdered: Referral incontinence, 04/27/2020 unspecified type documented as of this encounter Procedures Procedure Name Priority Date/Time Associated Diagnosis Comme nts COLOGUARD Routine 05/11/2020 6:30 AM Well adult exam Result s for this CARPET LAYER procedure are i n the results section . documented in this encounter Results Microalbumin/Creatinine Ratio (06/29/2020 8:30 AM CDT) athologist Signature Microalbumin,m 7.1 0.0 - 16.6 06/29/2020 [facility] g/day mg/L 3:01 PM CDT [facility] Comment: . Creatinine, Urine 185 mg/dL 06/29/2020 3:02 PM CDT [facility] Comment: No established reference range. Microalb/Creat Ratio 4 0 - 24 mg/g 06/29/2020 3:0 2 PM CDT [facility] Specimen Anatomical Collection Method Collection Time Receive d Time (Source) Location / / Volume Laterality Urine 06/29/2020 8:30 AM 1 CDT 12:33 PM CDT Catalina Pennington APRN, CNP LAB URINE ORDERABLES Performing Organization Address City/State/ZIP Code Phon e Number [facility] [address] [place] [address] Magnesium (06/27/2020 8:27 AM CDT) athologist Signature Magnesium 2.0 1.6 - 2.3 06/27/2020 [facility] mg/dL 2:13 PM CDT [facility] Specimen Anatomical Collection Method Collection Time Receive d Time (Source) Location / / Volume Laterality Blood 06/27/2020 8:27 AM 1 CDT 12:50 PM CDT Catalina Pennington APRN, CNP LAB BLOOD ORDERABLES Performing Organization Address City/State/ZIP Code Phon e Number [facility] [address] [place] [address] Lipid panel (06/27/2020 8:27 AM CDT) athologist Signature Cholesterol 166 0 - 199 06/27/2020 [facility] mg/dL 2:13 PM [facility] Comment: Recommended by National Cholesterol Education Program (ATP III) -------- Cholesterol Ranges -------- <200 ?Desirable 200-239 ? Borderline high >=240 ? High Triglycerides 126 0 - 149 mg/dL 06/27/2020 2:13 PM T [facility] Comment: -------- TRIG Ranges -------- <150 ?Normal 150-199 ? Borderline high 200-499 ? High >=500 ? Very high HDL 58 40 - 250 mg/dL 06/27/2020 2:[address] [facility] Comment: -------- HDL Ranges -------- <40 ?Low 40-59 ?Normal >=60 ? Optimal LDL Calculated 83 0 - 99 mg/dL 06/27/2020 2:13 PM T [facility] Comment: -------- LDL Ranges -------- <100 ? Optimal 100-129 ?Near optimal/above op timal 130-159 ?Borderline high 160-189 ?High >=190 ?Very high Fasting? Yes 06/27/2020 8:31 AM T [facility] Specimen Anatomical Collection Method Collection Time Receive d Time (Source) Location / / Volume Laterality Blood 06/27/2020 8:27 AM CDT 12:50 PM CDT Catalina Pennington APRN, CNP LAB BLOOD ORDERABLES Performing Organization Address [facility] e Number [facility] [address] [place] [phone] Hemoglobin A1c (06/27/2020 8:27 AM CDT) P [...] CNP LAB BLOOD ORDERABLES Performing Organization Address [facility] e Number [facility] [address] [place] [phone] (ABNORMAL) Comprehensive metabolic panel (06/27/2020 8:27 AM [...] 128 06/27/2020 [facility] Phosphatase U/L 2:13 PM [facility] ALT (SGPT) 19 0 - 34 U/L 06/27/2020 [facility] 2:13 PM [facility] Sodium 139 135 - 145 06/27/2020 [facility] mEq/L 2:13 PM [facility] Potassium 4.1 3.5 - 5.1 06/27/2020 [facility] mEq/L 2:13 PM [facility] Chloride 106 98 - 107 06/27/2020 [facility] mEq/L 2:13 PM [facility] CO2 27 22 - 29 06/27/2020 [facility] mmol/L 2:13 PM [facility] BUN 17 5 - 25 06/27/2020 [facility] mg/dL 2:13 PM [facility] Creatinine 0.7 0.4 - 1.2 06/27/2020 [facility] mg/dL 2:13 PM [facility] Glucose 105 (H) 70 - 100 06/27/2020 [facility] mg/dL 2:13 PM [facility] Calcium, Total,S 9.3 8.4 - 10.2 06/27/2020 [facility] mg/dL 2:13 PM [facility] Specimen Anatomical Collection Method Collection Time Receive d Time (Source) Location / / Volume Laterality Blood 06/27/2020 8:27 AM CDT 12:50 PM CDT Catalina Pennington APRN, GANG INVESTIGATOR LAB BLOOD ORDERABLES Performing Organization Address City/State/ZIP Code Phon e Number [facility] [address] [place] [address] Cologuard (05/11/2020 6:30 AM CARPET LAYER) [facility] Method Time Signature Cologuard Negative Not Applicable EXACT Asantae, Unmetric Comment: A negative result indicates a low [...] Flores al, N Eng l J Med 2014;370(14):6407-4037) The norm al value (reference range) for this assay is negative. COLOGUARD RE-SCREENING RECOMMENDATION: Periodic routine colorectal cancer screening is an important part of preventive healthcare for asymptomatic persons at average risk for colorectal cancer. Following a negative Cologuard result, the [place] [employer] Society and U.S. Multi-Society Task Force screening guidelines recommend a Cologua rd re-screening interval of 3 years. References: [place] [employer] Society (ACS). Colorectal cancer prevention and early detection. [place], [place]: [place] [employer] Soc iety; [updated 2015Jul 01]. https://www.cancer.org/cancer/qhxfz-wsocwf-hztskq/ulfqmkbay-prcclejed-egdxyus/ac s-recommendations.html. Accessed November 07, 2017; Jake DK, Clarissa CR, Sung GutierrezK, Colorectal Cancer Screening: Recommendations for Ph ysicians and Patients from the U.S. Multi-Society Task Force on Colorectal Cancer Screening, Am J Gastroenterology 2017; 112:7513-8586. TEST TYPE: Composite algorithmic analysi s of [...] terval of every 3 years by the [place] [employer] Society and U.S. Multi-Society Task Force. [...] be accessed at the follow ing location: www.[facility]ittlebee/results. Additional description of the Cologuard test process, warnings and precautions can be found at www.cologuardtest.com. Rx only. [employer], [address] [place] [address]., [place], [place], [facility], , Clinical Laboratory Power Tool Repairer, BRIANNA HANDY, , [place] NO: [id number] Specimen Anatomical Collection Method Collection Time Receive d Time (Source) Location / / Volume Laterality Stool 05/11/2020 6:30 AM CARPET LAYER 12:30 PM CARPET LAYER Catalina Pennington COUNSELING PSYCHOLOGIST, GANG INVESTIGATOR LAB BODY FLUIDS AND STOOLS O RDERABLES Performing Organization Address City/State/ZIP Code Phon e Number [employer], [address] [place] [address] [facility] [address] documented in this [...] 30 mg Right Ventrogluteal injection 30 mg CARPET LAYER 30 mg, Intramuscular, Once, On Rani 04/27/20 at 1700, For 1 dose, In office documented in this encounter Care Teams Piano Professor Relationship Specialty Start Date End Date Roopa Lopez MD PCP - General Family Medicine 07/15/19 02/26/[address] [place] [address] documented as of this encounter
--- OUTSIDE RECORDS SUMMARY | 2022-02-12 17:34 | XMS_ITS | Encounter Summary ---
:1970 Author Organization [facility] Address [address] [place] [address] Care Team Providers Name Role Phone Roopa [...] 4:01 PM Postablative Results f or this WARP TIER hypothyroidism procedure are in the results section. T4, FREE Routine 02/14/2020 4:01 PM Postablative Results f or this WARP TIER hypothyroidism procedure are in the results section. documented in this encounter Results T4, free (02/14/2020 4:01 PM WARP TIER) P athologist Signature Free T4 1.07 0.78 - 2.19 02/15/2020 [facility] ng/dL 3:25 PM W[facility] Comment: The results from this [...] Laterality Blood 02/14/2020 4:01 PM 0 2:29 WARP TIER PM WARP TIER Valerie Major MD LAB BLOOD ORDERABLES Performing Organization Address City/[facility] Code Phon e Number [facility] [address] [place] [address] TSH (02/14/2020 4:01 PM WARP TIER) athologist Signature TSH, Sensitive 0.93 0.46 - 02/15/2020 [facility] 4.68 mIU/L 3:36 PM [facility] Comment: The results from this [...] Laterality Blood 02/14/2020 4:01 PM 0 2:29 WARP TIER PM WARP TIER Valerie Major MD LAB BLOOD ORDERABLES Performing Organization Address [facility] Phon e Number [facility] [address] [place] [address] documented in this encounter Visit Diagnoses Diagnosis Postablative hypothyroidism Other postablative hypothyroidism documented in this encounter Care Teams Tarring Machine Operator Relationship Specialty Start Date End Date Roopa Lopez MD PCP - General Family Medicine 07/15/19 02/26/[address] [place] [address] documented as of this encounter
--- OUTSIDE RECORDS SUMMARY | 2022-02-12 17:34 | XMS_ITS | Encounter Summary ---
:1970 Author Organization [facility] Address [address] [place] [address] Care Team Providers Name Role Phone Roopa Lopez MD Primary Care Provider Encounter Details Date Type Department Care Team Description 12/22/2019 Lab [place] Postablative hypothyroidism [address] [place] [address] Social History Tobacco Use Types Packs/Day Years [...] 1:11 PM 0 CDT 12:27 PM CDT aVlerie Major MD LAB BLOOD ORDERABLES Performing Organization Address [facility] Phon e Number [facility] [address] [place] [address] T4, free (12/22/2019 1:11 PM CDT) P athologist Signature Free T4 1.24 0.78 - 2.19 12/23/2019 [facility] ng/dL 1:52 PM CDT [facility] [...] MD LAB BLOOD ORDERABLES Performing Organization Address [facility] Phon e Number [facility] [address] [place] [address] documented in this encounter Visit Diagnoses Diagnosis Postablative hypothyroidism Other postablative hypothyroidism documented in this encounter Care Teams Thread Roller Relationship Specialty Start Date End Date Roopa Lopez MD PCP - General Family Medicine 07/15/19 02/26/[address] [place] [address] documented as of this encounter
--- OUTSIDE RECORDS SUMMARY | 2022-02-12 17:34 | XMS_ITS | Encounter Summary ---
:1970 Author Organization [facility] Address [address] [place] [address] Care Team Providers Name Role Phone Tiffanie Mcgovern APRN, METAL FURNACE OPERATOR Primary Care Provider [phone] Encounter Details Date Type Department Care Team Description 12/06/2019 Telephone [place] Roopa Lopez MD [address] [place], [place] [address] [place], [place] [phone] (Wo rk) Social History Tobacco Use Types [...] Out 02/18/2020 02/18/2020 02/18/2020 4:4 1 PM HAMPER MAKER MACHINE COVID-19 Rule Out 02/27/2021 02/27/2021 02/27/2021 10: 40 AM HAMPER MAKER MACHINE COVID-19 Confirmed 02/27/2021 02/27/2021 05/28/2021 8: 17 PM CDT documented as of this encounter Care Teams Hospice Plan Administrator Relationship Specialty Start Date End Date Tiffanie Mcgovern APRN, METAL FURNACE OPERATOR PCP - General Family Medicine 02/27/[address] [place] [address] [place]O [address] documented as of this encounter
--- OUTSIDE RECORDS SUMMARY | 2022-02-12 17:34 | XMS_ITS | Encounter Summary ---
:1970 Author Organization [facility] Address [address] [place] [address] Care Team Providers Name Role Phone Roopa Lopez MD Primary Care Provider Encounter Details Date Type Department Care Team Description 11/04/2019 [place] [address] [facility] [address] [place], [place] [address] [place], [place] [phone] (Wo rk) Social History Tobacco Use Types [...] face sheet and lab results faxed to [facility] radiology as requested (STAT). documented in this encounter Plan of Treatment Not on filedocumented as of this encounter Visit Diagnoses Not on filedocumented in this encounter Care Teams Road Design Engineer Relationship Specialty Start Date End Date Roopa Lopez MD PCP - General Family Medicine 07/15/19 02/26/[address] [place] [address] documented as of this encounter
--- OUTSIDE RECORDS SUMMARY | 2022-02-12 17:34 | XMS_ITS | Encounter Summary ---
:[address] [facility] Address [address] [place] [address] Care Team Providers Name Role Phone Roopa Lopez MD Primary Care Provider Reason for Visit Reason Comments Med Refill Encounter Details Date Type Department Care Team Description 11/08/2019 Refill Roopa Caldwell, History of coronary [address] [facility] vasospasm [place] [address] [phone] [place] [address] Social History Tobacco Use Types Packs/Day Years [...] vasospasm documented in this encounter Care Teams School Athletic Director Relationship Specialty Start Date End Date Roopa Lopez MD PCP - General Family Medicine 07/15/19 02/26/[address] [place] [address] documented as of this encounter
--- OUTSIDE RECORDS SUMMARY | 2022-02-12 17:34 | XMS_ITS | Encounter Summary ---
:1970 Author Organization [facility] Address [address] [place] [address] Care Team Providers Name Role Phone Roopa Lopez MD Primary Care Provider Reason for Visit Reason Onset Date Comments Covid Triage 02/18/2020 Encounter Details Date Type Department Care Team Description [facility] Jeyson Keating APRN, Covid Triage [address] [facility] [address] [place], [place] [address] [place] [address] [phone] (Wo rk) Social History Tobacco Use [...] this encounter Progress Notes Jeyson Keating APRN, SOFTWARE SYSTEMS ANALYST - 02/18/2020 7:50 AM CST 02/18/20 [address]700 [...] request atelehealth visit when calling to schedule. HBOOK ASSEMBLER documented in this encounter Plan of Treatment Not on filedocumented as of this encounter Results SARS Coronavirus 2 RNA detection, v (02/18/2020 7:58 AM MATCHBOOK ASSEMBLER) [facility] Method Time Signature SARS Covid Nasopharyngeal 02/18/2020 [facility] specimen 4:41 PM MATCHBOOK ASSEMBLER LAB[facility]ATORIES source Patient Race White 02/18/2020 [facility] 4:41 PM MATCHBOOK ASSEMBLER LABORATORIES Patient DECLINE 02/18/2020 [facility] Ethnicity 4:41 PM MATCHBOOK ASSEMBLER LAB[facility]ATORIES SARS CoV2 Undetected Undetected 02/18/2020 [facility] RNA 4:41 PM MATCHBOOK ASSEMBLER [facility] Comment: SARS-CoV-2 RNA absent. This result does not rule out COVID-19 in the patient, as the sensitiv ity of the test depends on the timing of the specimen co llection and the quality of the specimen. Result should b e correlated with patient's history and clinical presentat ion. Method - 02/18/2020 4:41 PM MATCHBOOK ASSEMBLER [facility] Comment: THFSH- This test uses the TaqPath COVID- 19 Combo Kit (Life 7digital Murray.) and is performed on the [employer]) magnetic particle processor and [employer] Yobongo 7500 Fast Dx Real-Time PCR System. It has rec eived Emergency Use Authorization (EUA) by the U.S. Food and Drug Administration. Performance characterist ics were verified by [facility] in a manner consistent wi CLIA requirements. Fact sheets for this Emergency Use Autho rization (EUA) can be found at the following links: https://www.fda.gov/media/661886/downloa d for Healthcare Providers https://www.fda.gov/media/952510/downloa d for Patients Test Performed by: [facility] [address] [address] 90 [employer] Truck Driver: Butch Guerrero M.D. Ph. D.; CLIA# [id number] Specimen Anatomical Collection Method Collection Time Receive d Time (Source) Location / / Volume Laterality Swab 02/18/2020 7:58 AM 0 9:28 (Nasopharyngeal) MATCHBOOK ASSEMBLER AM MATCHBOOK ASSEMBLER Lina Goldstein APRN, SOFTWARE SYSTEMS ANALYST LAB MOLECULAR DIAGNOSTICS O RDERABLES Performing Organization Address City/State/ZIP Code Phon e Number [facility] see result attachment for specific address documented in this encounter Visit Diagnoses Diagnosis Screening examination for infectious dis ease - Primary Screening examination for unspecified in fectious disease documented in this encounter Care Teams Hang Gliding Instructor Relationship Specialty Start Date End Date Roopa Lopez MD PCP - General Family Medicine 07/15/19 02/26/[address] [place] [address] documented as of this encounter
--- OUTSIDE RECORDS SUMMARY | 2022-02-12 17:34 | XMS_ITS | Encounter Summary ---
:1970 Author Organization [facility] Address [address] [place] [address] Care Team Providers Name Role Phone Roopa Lopez MD Primary Care Provider Reason for Visit Reason Comments Hypothyroidism Graves' Disease Encounter Details Date Type Department Care Team Description 03/29/2020 [facility] Endocrinology [place], Postablative hypothyroidism (Primary Dx); [address] MD Valerie Graves disease; [place] [address] Stress at home [phone] Social History Tobacco Use Types Packs/Day Years [...] CST 1. Call COVID triage line at [phone] 2. Continue the same dose of Levothyroxine 3. Recheck thyroid labs in 3 months LE PLANT OPERATORS documented in this encounter Progress Notes Valerie [...] aged 20 and 16. 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 Review of systems: As in HPI. All [...] compliantly. 4. Patient was given contact for [place] [address] triage line with acute onset symptoms including myalgias. 5. Also with ongoing stress in life, recommended patient to communicate with us if desiring to proceed with psychology counseling at any time.. Patient understands and agrees with the above plan. LE PLANT OPERATORS Belem Moraes - 03/29/2020 9:00 AM CST Scheduled. Patient will do labs in 3 months in hurt LE PLANT OPERATORS documented in this encounter Plan of Treatment [...] MD LAB BLOOD ORDERABLES Performing Organization Address [facility] Phon e Number [facility] [address] [place] [address] T4, free (09/25/2020 8:21 AM CDT) P [...] MD LAB BLOOD ORDERABLES Performing Organization Address [facility] Phon e Number [facility] [address] [place] [address] (ABNORMAL) TSH (06/27/2020 8:27 AM CDT) Analysis [...] MD LAB BLOOD ORDERABLES Performing Organization Address [facility] e Number [facility] [address] [place] [address] T4, free (06/27/2020 8:27 AM CDT) athologist Signature Free T4 1.31 0.78 - 2.19 06/27/2020 [facility] ng/dL 2:53 PM CDT [facility] [...] MD LAB BLOOD ORDERABLES Performing Organization Address City/[facility] Phon e Number [facility] [address] [place] [address] documented in this encounter Visit Diagnoses Diagnosis Postablative hypothyroidism - Primary Other postablative hypothyroidism Graves disease Toxic diffuse goiter without mention of thyrotoxic crisis or storm Stress at home documented in this encounter Care Teams Laborer Tanbark Relationship Specialty Start Date End Date Roopa Lopez MD PCP - General Family Medicine 07/15/19 02/26/[address] [place] [address] documented as of this encounter
--- OUTSIDE RECORDS SUMMARY | 2022-02-12 17:34 | XMS_ITS | Encounter Summary ---
:1970 Author Organization [facility] Address [address] [place] [address] Care Team Providers Name Role Phone Tiffanie Mcgovern APRN, KYLE Primary Care Provider Reason for Visit Reason Comments Med Refill Encounter Details Date Type Department Care Team Description 12/28/2019 Refill SE Endocrinology Muthusamy, Edema, unspecified type [address] [facility] [place] [address] Social History Tobacco Use Types Packs/Day Years [...] Out 02/18/2020 02/18/2020 02/18/2020 4:4 1 PM TEAR DOWN MAN COVID-19 Rule Out 02/27/2021 02/27/2021 02/27/2021 10: 40 AM TEAR DOWN MAN COVID-19 Confirmed 02/27/2021 02/27/2021 05/28/2021 8: 17 PM CDT documented as of this encounter Care Teams Pocket Setter Relationship Specialty Start Date End Date Tiffanie Mcgovern APRN, CODING CONSULTANT PCP - General Family Medicine 02/27/[address] [place] [address] [place] [address] documented as of this encounter
--- OUTSIDE RECORDS SUMMARY | 2022-02-12 17:34 | XMS_ITS | Encounter Summary ---
:1970 Author Organization [facility] Address [address] [place] [address] Care Team Providers Name Role Phone Roopa [...] with reflex microscopic (11/04/2019 9:45 AM CDT) [facility] Method Time Signature Type CLEAN CATCH [...] [place] Specific 1.020 1.000 11/04/2019 [facility] Marks, ->=1.030 10:12 AM CDT [place] Urine Blood, [...] MD LAB URINE ORDERABLES Performing Organization Address City/[facility]/ZIP Code Phon e Number [facility] [place] [address] [place] [address] Glomerular filtration rate (GFR) (11/04/2019 9:40 AM CDT) athologist Signature GFR >60 11/04/2019 [facility] 10:11 AM CDT [facility] >60 11/04/2019 [facility] Malaysian GFR 10:11 AM CDT [facility] Comment: [...] MD LAB BLOOD ORDERABLES Performing Organization Address City/[facility]/ZIP Code Phon e Number [facility] [address] [place] [address] Basic metabolic panel (11/04/2019 9:40 AM CDT) athologist Signature Sodium 136 135 - 145 11/04/2019 [facility] mmol/L 10:11 AM CDT [place] Potassium 4.3 3.5 - 5.1 11/04/2019 [facility] mmol/L 10:11 AM CDT [place] Comment: . Chloride 104 98 - 107 mmol/L 11/04/2019 10:11 AM CDT [facility] [place] Comment: . CO2 27 22 - 29 mmol/L 11/04/2019 10:11 AM CDT [facility] [place] [place] Comment: . Creatinine 0.6 0.4 - 1.2 mg/dL 11/04/2019 10:11 AM CDT [facility] [place] Comment: . BUN 12 5 - 25 mg/dL 11/04/2019 10:11 AM CDT [facility] [place] Comment: . Glucose 97 70 - 100 mg/dL 11/04/2019 10:11 AM CDT [facility] [place] Calcium, Total,S 9.7 8.4 - 10.2 mg/dL 11/04/2019 10:11 AM CDT [facility] [place] Comment: . Fasting? Yes 11/04/2019 9:50 AM CDT [facility] [place] Specimen Anatomical Collection Method Collection Time Receive d Time (Source) Location / / Volume Laterality Blood 11/04/2019 9:40 AM 0 9:50 CDT AM CDT Penny Palacios MD LAB BLOOD ORDERABLES Performing Organization Address City/State/ZIP Code Phon e Number [facility] [place] [address] [place] [address] CBC Branch Off w/Diff (11/04/2019 9:40 AM CDT) P athologist Signature WBC 5.9 3.5 - 10.5 11/04/2019 [facility] K/uL 10:11 AM CDT [place] RBC 4.75 3.90 - 11/04/2019 [facility] 5.00 M/uL 10:11 AM CDT [place] Hemoglobin 14.5 12.0 - 11/04/2019 [facility] 15.5 g/dL 10:11 AM CDT [place] Hematocrit 41.2 35.0 - 11/04/2019 [facility] 44.0 % 10:11 AM CDT [place] Platelets 327 150 - 450 11/04/2019 [facility] K/uL 10:11 AM CDT [place] MCV 86.7 81.6 - 11/04/2019 [facility] 98.3 fL 10:11 AM CDT [place] MCH 30.5 26.0 - 11/04/2019 [facility] 32.0 pg 10:11 AM CDT [place] MCHC 35.2 32.0 - 11/04/2019 [facility] 36.0 g/dL 10:11 AM CDT [place] RDW 14.3 11.9 - 11/04/2019 [facility] 15.5 % 10:11 AM CDT [place] Lymphocytes % 26.8 % 11/04/2019 [facility] 10:11 AM CDT [place] Mid-size Cells 12.0 % 11/04/2019 [facility] 10:11 AM CDT [place] Granulocytes/Leslie 61.2 % 11/04/2019 [facility] trophils 10:11 AM CDT [place] Lymphocytes 1.6 0.9 - 2.9 11/04/2019 [facility] Absolute K/uL 10:11 AM CDT [place] MIDS Absolute 0.7 0.4 - 1.5 11/04/2019 [facility] K/uL 10:11 AM CDT [place] Granulocytes/Leslie 3.6 1.7 - 7.0 11/04/2019 [facility] trophils K/uL 10:11 AM CDT [place] Absolute Specimen Anatomical Collection Method Collection Time Receive d Time (Source) Location / / Volume Laterality Blood 11/04/2019 9:40 AM 0 9:50 CDT AM CDT Penny Palacios MD LAB BLOOD ORDERABLES Performing Organization Address City/[facility]/ZIP Code Phon e Number [facility] [place] [address] [place] [address] (ABNORMAL) TSH (11/04/2019 9:40 AM CDT) Analysis Performed At Patho logist Time Signature TSH, Sensitive 0.15 (L) 0.46 - 11/04/2019 [place] 4.68 mIU/L 2:45 PM CDT [facility] Comment: The results from this or [...] MD LAB BLOOD ORDERABLES Performing Organization Address City/[facility]/ZIP Code Phon e Number [facility] [address] [place] [address] T4, free (11/04/2019 9:40 AM CDT) P [...] e Number [facility] [address] [place] [address] documented in this encounter Visit Diagnoses Diagnosis Postablative hypothyroidism Other postablative hypothyroidism Right lower quadrant abdominal pain documented in this encounter Care Teams Leasing Representative Relationship Specialty Start Date End Date Roopa Lopez MD PCP - General Family Medicine 07/15/19 02/26/[address] [place] [address] documented as of this encounter
--- OUTSIDE RECORDS SUMMARY | 2022-02-12 17:34 | XMS_ITS | Encounter Summary ---
:1970 Author Organization [facility] Address [address] [place] [address] Care Team Providers Name Role Phone Roopa Lopez MD Primary Care Provider Encounter Details Date Type Department Care Team Description 11/04/2019 Telephone Penny Rasmussen MD [address] [place], [place] [address] Social History Tobacco Use [...] on filedocumented in this encounter Care Teams Electro Mechanical Assembler Relationship Specialty Start Date End Date Roopa Lopez MD PCP - General Family Medicine 07/15/19 02/26/21 [address] [facility] [address] [place] [address] documented as of this encounter
--- OUTSIDE RECORDS SUMMARY | 2022-02-12 17:34 | XMS_ITS | Encounter Summary ---
:1970 Author Organization [facility] Address [address] [place] [address] Care Team Providers Name Role Phone Roopa Lopez MD Primary Care Provider Reason for Visit Reason Onset Date Comments Naproxen Rx 05/01/2020 Encounter Details Date Type Department Care Team Description 05/01/2020 Telephone ImperialCatalina Harkins, ALVERTO, INTRAMURAL DIRECTOR Naproxen Rx [address] [facility] [place] [address] [place] [address] [phone] (Wo rk) Social History Tobacco Use Types [...] - 05/01/2020 10:34 AM CST Patient informed. ANY DOCTOR Telephone Encounter - Catalina Pennington APRN, CNP - 05/01/2020 10:26 AM CST Sent a different naproxen. Also she don't have to use Asprin 81mg daily as discussed I sent a my chart message but looks like she have not read it. ANY DOCTOR Telephone Encounter - Chelsea Romero RN - 05/01/2020 10:21 AM CST Pharmacy called stating the Naproxen EC is expensive and the patient did not pick this up. They are wondering they can substitute for the regular Naproxen or if it has to be delayed release? ANY DOCTOR Telephone Encounter - Chelsea Romero RN - 05/01/2020 9:36 AM CST No answer at pharmacy. ANY DOCTOR Telephone Encounter - Alyce Shah - 05/01/2020 8:35 AM CST Martin with [facility] called requesting to talk with a nurse about Pt's Naproxen delayed release Rx. Please call Martin at [phone] to advise. ANY DOCTOR documented in this encounter Plan of Treatment Not on filedocumented as of this encounter Visit Diagnoses Diagnosis Migraine with aura and without status mi grainosus, not intractable - Primary documented in this encounter Care Teams Tattoo Designer Relationship Specialty Start Date End Date Roopa Lopez MD PCP - General Family Medicine 07/15/19 02/26/[address] [place] [address] documented as of this encounter
--- OUTSIDE RECORDS SUMMARY | 2022-02-12 17:34 | XMS_ITS | Encounter Summary ---
:1970 Author Organization [facility] Address [address] [place] [address] Care Team Providers Name Role Phone Roopa Lopez MD Primary Care Provider Reason for Referral Consultation (Routine) - Closed Specialty Diagnoses / Procedures Referred By Contact Refer red To Contact Diagnoses Right lower quadrant abdominal pain Penny Palacios MD [address] [place] [address] [address] [place] [address] Phone: Fax: Referral ID Status Reason Start Date Expiration Date Visits Requ ested Visits Authorized [id number] Closed 11/04/2019 11/04/2020 1 1 Reason for Visit Reason Comments Lower Right Side Pain Encounter Details Date Type Department Care Team Description 11/04/2019 Office Visit [place]arnellPenny Carrero Right lower quadrant [address] MD Calvin abdominal pain [place], [place] (Primary Dx ) [id number] Social History [...] by mouth every night 1 to 2 [id number] tablet 3 ??? verapamil ER (VERELAN) 240 [...] which was able to beset up at [place] in [place]. I have asked them to call me [...] with reflex microscopic (11/04/2019 9:45 AM CDT) [facility] gist Method Time Signature Type CLEAN CATCH 11/04/2019 [facility] 10:12 AM CDT [place] Color, Urine YELLOW YELLOW 11/04/2019 [facility] 10:12 AM CDT [place] Clarity, CLEAR CLEAR 11/04/2019 [facility] Urine 10:12 AM CDT [place] Glucose, NEGATIVE NEGATIVE 11/04/2019 [facility] Urine mg/dL 10:12 AM CDT [place] Bilirubin, NEGATIVE NEGATIVE 11/04/2019 [facility] Urine 10:12 AM CDT [place] Ketones, NEGATIVE NEGATIVE 11/04/2019 [facility] Urine mg/dL 10:12 AM CDT [place] Specific 1.020 1.000 11/04/2019 [facility] [place] [place], ->=1.030 10:12 AM CDT [place] Urine Blood, Urine NEGATIVE NEGATIVE 11/04/2019 [facility] 10:12 AM CDT [place] pH, Urine 7.5 (A) 5.0 - 7.0 11/04/2019 [facility] 10:12 AM CDT [place] Protein, NEGATIVE NEGATIVE-TRA 11/04/2019 [facility] Urine CE mg/dL 10:12 AM CDT [place] Urobilinogen, 0.2 0.2 - 1.0 11/04/2019 [facility] Urine E.U./dL 10:12 [...] Number [facility] [place] [address] [place] [address] Basic metabolic panel (11/04/2019 9:40 AM CDT) P athologist Signature Sodium 136 135 - 145 11/04/2019 [facility] [place] mmol/L 10:11 AM CDT [place] Potassium 4.3 3.5 - 5.1 11/04/2019 [facility] mmol/L 10:11 AM CDT [place] Comment: . Chloride 104 98 - 107 mmol/L 11/04/2019 10:11 AM CDT [facility] [place] Comment: . CO2 27 22 - 29 mmol/L 11/04/2019 10:11 AM CDT [facility] [place] Comment: . Creatinine 0.6 0.4 - 1.2 mg/dL 11/04/2019 10:11 AM CDT [facility] [place] Comment: . BUN 12 5 - 25 mg/dL 11/04/2019 10:11 AM CDT [facility] [place] Comment: . Glucose 97 70 - 100 mg/dL 11/04/2019 10:11 AM CDT [facility] [place] Calcium, Total,S 9.7 8.4 - 10.2 mg/dL 11/04/2019 10:11 AM CDT [facility] [place] Comment: . Fasting? Yes 11/04/2019 9:50 AM CDT [facility] CAN NON [place]S Specimen Anatomical Collection Method Collection Time Receive d Time (Source) Location / / Volume Laterality Blood 11/04/2019 9:40 AM 0 9:50 CDT AM CDT Penny Palacios MD LAB BLOOD ORDERABLES Performing Organization Address City/State/ZIP Code Phon e Number [facility] [place] [address] [place] [address] CBC Branch Off w/Diff (11/04/2019 9:40 AM CDT) P athologist Signature WBC 5.9 3.5 - 10.5 11/04/2019 [facility] K/uL 10:11 AM CDT [place] RBC 4.75 3.90 - 11/04/2019 [facility] 5.00 M/uL 10:11 AM CDT [place] Hemoglobin 14.5 12.0 - 11/04/2019 [facility] 15.5 g/dL 10:11 AM CDT [place] Hematocrit 41.2 35.0 - 11/04/2019 [facility] 44.0 % 10:11 AM CDT [place] Platelets 327 150 - 450 11/04/2019 [facility] K/uL 10:11 AM CDT [place] MCV 86.7 81.6 - 11/04/2019 [facility] [place] 98.3 fL 10:11 AM CDT [place] MCH 30.5 26.0 - 11/04/2019 [facility] [place] 32.0 pg 10:11 AM CDT [place] MCHC 35.2 32.0 - 11/04/2019 [facility] [place] 36.0 g/dL 10:11 AM CDT [place] RDW 14.3 11.9 - 11/04/2019 [facility] [place] 15.5 % 10:11 AM CDT [place] Lymphocytes % 26.8 % 11/04/2019 [facility] 10:11 AM CDT [place] Mid-size Cells 12.0 % 11/04/2019 [facility] 10:11 AM CDT [place] Granulocytes/Leslie 61.2 % 11/04/2019 [facility] trophils 10:11 AM CDT [place] Lymphocytes 1.6 0.9 - 2.9 11/04/2019 [facility] Absolute K/uL 10:11 AM CDT [place] MIDS Absolute 0.7 0.4 - 1.5 11/04/2019 [facility] [place] K/uL 10:11 AM CDT [place] Granulocytes/Leslie 3.6 1.7 - 7.0 11/04/2019 [facility] trophils K/uL 10:11 AM CDT [place] Absolute Specimen Anatomical Collection Method Collection Time Receive d Time (Source) Location / / Volume Laterality Blood 11/04/2019 9:40 AM 0 9:50 CDT AM CDT Penny Palacios MD LAB BLOOD ORDERABLES Performing Organization Address City/State/ZIP Code Phon e Number [facility] [place] [address] [place] [address] documented in this encounter Visit Diagnoses Diagnosis Right lower quadrant abdominal pain - Pr imary documented in this encounter Care Teams Internal Controls Consultant Relationship Specialty Start Date End Date Roopa Lopez MD PCP - General Family Medicine 07/15/19 02/26/[address] [place] [address] documented as of this encounter
--- OUTSIDE RECORDS SUMMARY | 2022-02-12 17:34 | XMS_ITS | Encounter Summary ---
:1970 Author Organization [facility] Address [address] [place] [address] Care Team Providers Name Role Phone Roopa Lopez MD Primary Care Provider Reason for Visit Reason Onset Date Comments Med Refill 12/06/2019 Encounter Details Date Type Department Care Team Description 12/06/2019 Refill Roopa Caldwell Hyperlipidemia, unspecified hyperlipidemia type; [address] [place] Raheel Insomnia, unspecified type [place]STO Ramirez [address] [phone] [place] [address] Social History Tobacco Use Types Packs/Day Years [...] type documented in this encounter Care Teams Instructional Resource Teacher Relationship Specialty Start Date End Date Roopa Lopez MD PCP - General Family Medicine 07/15/19 02/26/[address] [place] [address] documented as of this encounter
--- OUTSIDE RECORDS SUMMARY | 2022-02-12 17:34 | XMS_ITS | Encounter Summary ---
:[address] [facility] Address [address] [place] [address] Care Team Providers Name Role Phone Roopa Lopez MD Primary Care Provider Reason for Visit Reason Comments Med Refill Encounter Details Date Type Department Care Team Description 11/11/2019 Refill Roopa Caldwell, Edema, unspecified type [address] [place]NEST[place] Concepcion [address] [phone] Rogelio [place] [address] Social History Tobacco Use Types Packs/Day Years [...] type documented in this encounter Care Teams Powerhouse Oiler Relationship Specialty Start Date End Date Roopa Lopez MD PCP - General Family Medicine 07/15/19 02/26/[address] [place] [address] documented as of this encounter
--- OUTSIDE RECORDS SUMMARY | 2022-02-12 17:34 | XMS_ITS | Encounter Summary ---
:1970 Author Organization Address [address] [place] [address] Care Team Providers Name Role Phone Roopa Lopez MD Primary Care Provider Reason for Visit Reason Comments Graves' Disease Encounter Details Date Type Department Care Team Description 12/28/2019 [facility] Endocrinology [place], Postablative hypothyroidism (Primary Dx); [address] MD Valerie Graves disease; [place] [address] Generalized edema [phone] Social History Tobacco Use Types Packs/Day Years [...] aged 20 and 16. 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 Review of systems: As in HPI. All [...] this encounter Results TSH (03/27/2020 9:58 AM VETERINARY TECHNOLOGIST) athologist Signature TSH, Sensitive 0.87 0.46 - 03/28/2020 [facility] L 4.68 mIU/L 3:06 PM VETERINARY TECHNOLOGIST [facility] Comment: The results from this [...] Laterality Blood 03/27/2020 9:58 AM 1 1:18 VETERINARY TECHNOLOGIST PM VETERINARY TECHNOLOGIST Valerie Major MD LAB BLOOD ORDERABLES Performing Organization Address City/State/ZIP Code Phon e Number [facility] [address] [place] [address] T4, free (03/27/2020 9:58 AM VETERINARY TECHNOLOGIST) athologist Signature Free T4 1.17 0.78 - 2.19 03/28/2020 [facility] ng/dL 2:36 PM VETERINARY TECHNOLOGIST [facility] Comment: The results from this [...] Volume Laterality Blood 03/27/2020 9:58 AM 1:18 VETERINARY TECHNOLOGIST PM VETERINARY TECHNOLOGIST Valerie Major MD LAB BLOOD ORDERABLES Performing Organization Address City/State/ZIP Code Phon e Number [facility] [address] [place] [address] documented in this encounter Visit Diagnoses Diagnosis Postablative hypothyroidism - Primary Other postablative hypothyroidism Graves disease Toxic diffuse goiter without mention of thyrotoxic crisis or storm Generalized edema Edema documented in this encounter Care Teams Hide Sorter Relationship Specialty Start Date End Date Roopa Lopez MD PCP - General Family Medicine 07/15/19 02/26/[address] [place] [address] documented as of this encounter
--- OUTSIDE RECORDS SUMMARY | 2022-02-12 17:34 | XMS_ITS | Encounter Summary ---
:[address] [facility] Address [address] [place] [address] Care Team Providers Name Role Phone Roopa [...] 9:58 AM Postablative Results f or this NETWORK SYSTEMS ENGINEER hypothyroidism procedure are in the results section. T4, FREE Routine 03/27/2020 9:58 AM Postablative Results f or this NETWORK SYSTEMS ENGINEER hypothyroidism procedure are in the results section. documented in this encounter Results TSH (03/27/2020 9:58 AM NETWORK SYSTEMS ENGINEER) athologist Signature TSH, Sensitive 0.87 0.46 - 03/28/2020 [facility] 4.68 mIU/L 3:06 PM NETWORK SYSTEMS ENGINEER [facility] Comment: The results from [...] Volume Laterality Blood 03/27/2020 9:58 AM 1:18 NETWORK SYSTEMS ENGINEER PM NETWORK SYSTEMS ENGINEER Valerie Major MD LAB BLOOD ORDERABLES Performing Organization Address [facility] Phon e Number [facility] [address] [place] [address] T4, free (03/27/2020 9:58 AM NETWORK SYSTEMS ENGINEER) P athologist Signature Free T4 1.17 0.78 - 2.19 03/28/2020 [facility] ng/dL 2:36 PM NETWORK SYSTEMS ENGINEER [facility] Comment: The results from [...] Volume Laterality Blood 03/27/2020 9:58 AM 1:18 NETWORK SYSTEMS ENGINEER PM NETWORK SYSTEMS ENGINEER Valerie Major MD LAB BLOOD ORDERABLES Performing Organization Address [facility] Code Phon e Number [facility] [address] [place] [address] documented in this encounter Visit Diagnoses Diagnosis Postablative hypothyroidism Other postablative hypothyroidism documented in this encounter Care Teams Guide Rail Cleaner Relationship Specialty Start Date End Date Roopa Lopez MD PCP - General Family Medicine 07/15/19 02/26/[address] [place] [address] documented as of this encounter
--- OUTSIDE RECORDS SUMMARY | 2022-02-12 17:34 | XMS_ITS | Encounter Summary ---
:1970 Author Organization [facility] Address [address] [place] [address] Care Team Providers Name Role Phone Roopa Lopez MD Primary Care Provider Encounter Details Date Type Department Care Team Description 05/31/2020 Orders Only SE Family Med Roopa Lopez MD [address] [place] [address] [place], [place] [phone] (Wo rk) Social History Tobacco Use Types [...] on filedocumented in this encounter Care Teams Distribution Clerk Relationship Specialty Start Date End Date Roopa Lopez MD PCP - General Family Medicine 07/15/19 02/26/[address] [place] [address] documented as of this encounter
--- OUTSIDE RECORDS SUMMARY | 2022-02-12 17:35 | XMS_ITS | Encounter Summary ---
:1970 Author Organization [facility] Address [address] [place] [address] Care Team Providers Name Role Phone Tiffanie Mcgovern APRN, CNP Primary Care Provider [phone] Encounter Details Date Type Department Care Team [...] on filedocumented in this encounter Care Teams Vocational Ed Instructor Relationship Specialty Start Date End Date Tiffanie Mcgovern APRN, MEDICAL ASSISTANT OB GYN PCP - General 10/14/17 07/14/19 [address] [facility] [place] [address] documented as of this encounter
--- OUTSIDE RECORDS SUMMARY | 2022-02-12 17:35 | XMS_ITS | Encounter Summary ---
:1970 Author Organization [facility] Address [address] [place] [address] Care Team Providers Name Role Phone Roopa Lopez MD Primary Care Provider Reason for Visit Reason Comments joint pain on going swelling bilateral lower extremities Shortness of Breath multiple symptoms- emotional, tired, shaking, b rain fog, blurry vision, increased urination, weight gain, swelling, ring finger, right eye Depression Encounter Details Date Type Department Care Team Description 09/08/2019 Office Visit Roopa Caldwlel Graves disease (Primary Dx); [address] MD Raheel Myalgia; [place], [place] [address] Arthralgia, unspecified join t; [phone] [place] Fluid retention; [place], [place] Glucose int olerance [address] Social History Tobacco Use Types Packs/Day Years [...] and thyrotropin antibody testing. She has seen [place] virtual reality specialist Dr. 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 [address] [place] [address] documented in this encounter Visit Diagnoses Diagnosis Graves disease - Primary Toxic diffuse goiter without mention of thyrotoxic crisis or storm Myalgia Unspecified myalgia and myositis Arthralgia, unspecified joint Fluid retention Fluid overload Glucose intolerance documented in this encounter Care Teams Operations Research Analyst Relationship Specialty Start Date End Date Roopa Lopez MD PCP - General Family Medicine 07/15/19 02/26/[address] [place] [address] documented as of this encounter
--- OUTSIDE RECORDS SUMMARY | 2022-02-12 17:35 | XMS_ITS | Encounter Summary ---
:1970 Author Organization [facility] Address [address] [place] [address] Care Team Providers Name Role Phone Tiffanie Mcgovern APRN, KYLE Primary Care Provider [phone] Reason for Referral Consultation (Routine) - Closed Specialty Diagnoses / Procedures Referred By Contact Refer red To Contact Endocrinology Diagnoses Hyperthyroidism Roopa Gupta MD [address] [place] [address] Referral ID Status Reason Start Date Expiration Date Visits V isits Requested Authorized [id number] Closed Specialty 06/29/2019 06/28/2020 1 1 Services [...] Endocrinology Valerie Major MD [address] [place] [address] Social History Tobacco Use Types [...] Major MD - 06/28/2019 2:24 PM CDT [facility] Dr. Gupta, Tried reaching your office currently [...] 1:[address] Gupta called from [place] wanting to know what would be needed for labs to be seen in Endocrinology. Please give him a call if need to discuss anything at all. documented in this encounter Plan of Treatment Scheduled Referrals Name Type Priority Associated Diagnoses Order [facility] Ambulatory referral Outpatient Routine Hyperthyroidism Order ed: to Endocrinology Referral 06/29/2019 documented as of this encounter Results (ABNORMAL) Thyrotropin receptor antibody (06/28/2019 3:58 PM CDT) [facility] Method Time Signature Thyrotropin 2.76 (H) 0.00 - 06/29/2019 [facility] Receptor Ab 1.75 IU/L 7:45 PM [...] respectively (97.5th percenti les). Test Performed by: [place] [id number] [employer] Application Analyst: Butch Guerrero M.D. Ph. D.; CLIA# [id number] Specimen Anatomical Collection Method Collection Time Receive d Time (Source) Location / / Volume Laterality Blood (Blood, 06/28/2019 3:58 PM 06/29/19 1:58 Venous) CDT PM CDT D. Raheel Gupta MD LAB BLOOD ORDERABLES Performing Organization Address City/State/ZIP Code Phon e Number [facility] see result attachment for specific address (ABNORMAL) T3, free (06/28/2019 3:58 PM CDT) P athologist Signature T3, Free 7.0 (H) 2.8 - 4.4 06/29/2019 [facility] pg/mL 7:51 PM CDT LABORATORIES Comment: Test Performed by: [facility] [address] [place] [id number] [employer] Application Analyst: Butch Guerrero M.D. Ph. D.; CLIA# [id number] Specimen Anatomical Collection Method Collection Time Receive d Time (Source) Location / / Volume Laterality Blood (Blood, 06/28/2019 3:58 PM 06/29/19 1:58 Venous) CDT PM CDT DSonja Gupta MD LAB BLOOD ORDERABLES Performing Organization Address City/State/ZIP Code Phon e Number [facility] see result attachment for specific address documented in this encounter Visit Diagnoses Diagnosis Hyperthyroidism - Primary Thyrotoxicosis without mention of goiter or other cause, without mention of thyrotoxic crisis or storm documented in this encounter Care Teams Bakery Clerk Relationship Specialty Start Date End Date Tiffanie Mcgovern, JOIST SETTER, REMOVABLE PROSTHODONTIST PCP - General 10/14/17 07/14/19 100 [facility] [place] [address] documented as of this encounter
--- OUTSIDE RECORDS SUMMARY | 2022-02-12 17:35 | XMS_ITS | Encounter Summary ---
:1970 Author Organization [facility] Address [address] [place] [address] Care Team Providers Name Role Phone Tiffanie Mcgovern APRN, KYLE Primary Care Provider [phone] Encounter Details Date Type Department Care Team Description 06/22/2019 Orders Only Levi Godoy MD [address] [place] [address] Social History Tobacco Use Types Packs/Day Years [...] on filedocumented in this encounter Care Teams Chief Controller Tower Relationship Specialty Start Date End Date Tiffanie Mcgovern APRN, INSTRUCTIONAL SUPPORT TECHNICIAN PCP - General 10/14/17 07/14/19 100 [facility] [place] [address] documented as of this encounter
--- OUTSIDE RECORDS SUMMARY | 2022-02-12 17:35 | XMS_ITS | Encounter Summary ---
:1970 Author Organization [facility] Address [address] [place] [address] Care Team Providers Name Role Phone Roopa Lopez MD Primary Care Provider Reason for Visit Reason Comments Hyperthyroidism Encounter Details Date Type Department Care Team Description 08/12/2019 [facility] SE Endocrinology [place], Graves disease (Primary Dx); [address] MD Valerie [place], [place] [address] Social History Tobacco Use Types [...] age 20 and 16. 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 Review of systems: As in HPI. All [...] Total 0.74 (L) 0.97 - 1.69 09/24/2019 [facility] ng/mL 2:04 PM CDT CENTER LABORATORY Comment: [...] MD LAB BLOOD ORDERABLES Performing Organization Address [facility] Phon e Number [facility] [address] [place] [address] (ABNORMAL) TSH (09/24/2019 8:07 AM CDT) Patholo [...] MD LAB BLOOD ORDERABLES Performing Organization Address [facility]/ZIP Code Phon e Number [facility] [address] [place] [address] (ABNORMAL) T4, free (09/24/2019 8:07 AM CDT) P athologist Signature Free T4 0.16 (L) 0.78 - 2.19 09/24/2019 [facility] ng/dL 1:52 PM CDT CENTER LABORATORY [...] MD LAB BLOOD ORDERABLES Performing Organization Address City/[facility] Code Phon e Number [facility] [address] [place] [address] (ABNORMAL) TSH (09/02/2019 9:17 AM CDT) Patholo gist Method Time Signature TSH, Sensitive <0.01 (L) 0.46 - 09/03/2019 [facility] 4.68 mIU/L 2:50 PM CDT [facility] Comment: [...] MD LAB BLOOD ORDERABLES Performing Organization Address City/[facility] Phon e Number [facility] [address] [place] [address] T4, free (09/02/2019 9:17 AM CDT) P athologist Signature Free T4 1.84 0.78 - 2.19 09/03/2019 [facility] ng/dL 2:34 PM CDT CENTER LAB[facility] [...] [facility] [address] [place] [address] (ABNORMAL) Basic metabolic panel (09/02/2019 9:17 AM CDT) Analysis Performed At Patho logist Time Signature Sodium 138 135 - 145 09/02/2019 [facility] mEq/L 1:07 PM [facility] Potassium 3.7 3.5 - 5.1 09/02/2019 [place] mEq/L 1:07 PM [facility] Chloride 105 98 - 107 09/02/2019 [place] mEq/L 1:07 PM [facility] CO2 24 22 - 29 09/02/2019 [place] mmol/L 1:07 PM [facility] Creatinine 0.5 0.4 - 1.2 09/02/2019 [place] mg/dL 1:07 PM [facility] BUN 14 5 - 25 09/02/2019 [place] mg/dL 1:07 PM [facility] Glucose 119 (H) 70 - 100 09/02/2019 [place] mg/dL 1:07 PM [facility] Calcium, 9.8 8.4 - 10.2 09/02/2019 [place] Total,S mg/dL 1:07 PM [facility] Fasting? Yes 09/02/2019 [facility] 9:20 AM CDT [place] Specimen Anatomical Collection Method Collection Time Receive d Time (Source) Location / / Volume Laterality Blood 09/02/2019 9:17 AM 0 1:07 CDT PM CDT Valerie Major MD LAB BLOOD ORDERABLES Performing Organization Address City/State/ZIP Code Phon e Number [facility] [place] [address] [place] [address] [facility] [address] [place] [address] LABORATORY documented in this encounter Visit Diagnoses Diagnosis Graves disease - Primary Toxic diffuse goiter without mention of thyrotoxic crisis or storm Edema, unspecified type documented in this encounter Care Teams Court Attendant Relationship Specialty Start Date End Date Roopa Lopez MD PCP - General Family Medicine 07/15/19 02/26/[address] [place] [address] documented as of this encounter
--- OUTSIDE RECORDS SUMMARY | 2022-02-12 17:35 | XMS_ITS | Encounter Summary ---
:[address] [facility] Address [address] [place] [address] Care Team Providers Name Role Phone Roopa Lopez MD Primary Care Provider Encounter Details Date Type Department Care Team Description 10/18/2019 Telephone SE Endocrinology Valerie Major MD [address] [place], [place] [address] Social History Tobacco Use Types Packs/Day Years [...] on filedocumented in this encounter Care Teams Leather Scraper Relationship Specialty Start Date End Date Roopa Lopez MD PCP - General Family Medicine 07/15/19 02/26/[address] [place] [address] documented as of this encounter
--- OUTSIDE RECORDS SUMMARY | 2022-02-12 17:35 | XMS_ITS | Encounter Summary ---
:1970 Author Organization [facility] Address [address] [place] [address] Care Team Providers Name Role Phone Roopa Lopez MD Primary Care Provider Encounter Details Date Type Department Care Team Description 07/15/2019 Orders Only Roopa Caldwell Dental infection [address] [place] Raheel (Primary Dx) [place] [phone] [facility] [address] [place] [address] Social History Tobacco Use Types Packs/Day Years [...] Primary documented in this encounter Care Teams Hydrometeorologist Relationship Specialty Start Date End Date Roopa Lopez MD PCP - General Family Medicine 07/15/19 02/26/[address] [place] [address] documented as of this encounter
--- OUTSIDE RECORDS SUMMARY | 2022-02-12 17:35 | XMS_ITS | Encounter Summary ---
:1970 Author Organization [facility] Address [address] [place] [address] Care Team Providers Name Role Phone Tiffanie Mcgovern APRN, KYLE Primary Care Provider [phone] Reason for Referral Hospital - Outpatient (Routine) - Closed Specialty Diagnoses / Procedures Referred By Contact Refer red To Contact Radiology Diagnoses Valerie Major MD Nuclear Medicine Procedures Nuclear medicine thyroid uptake with scan single 210 [facility] [address] [place] [address] [place] [address] Phone: Fax: Referral ID Status Reason Start Date Expiration Date Visits Requ ested Visits Authorized [id number] Closed 07/12/2019 01/08/2020 1 1 Encounter Details Date Type Department Care Team Description 07/12/2019 Orders Only SE Endocrinology Valerie Major MD [address] [place] [address] Social History Tobacco Use Types [...] filedocumented in this encounter Care Teams Manager In Training Relationship Specialty Start Date End Date Tiffanie Mcgovern, SALES SUPPORT SPECIALIST, WELL SERVICING RIG OPERATOR PCP - General 10/14/17 07/14/19 100 [facility] [address] documented as of this encounter
--- OUTSIDE RECORDS SUMMARY | 2022-02-12 17:35 | XMS_ITS | Encounter Summary ---
:1970 Author Organization [facility] Address [address] [place] [address] Care Team Providers Name Role Phone Roopa [...] AM CDT) athologist Signature Fasting? Yes 09/24/2019 [facility] 8:13 AM CDT CENTER LAB[facility]ORY Specimen Anatomical Collection Method Collection Time Receive d Time (Source) Location / / Volume Laterality 09/24/2019 8:07 AM 0 8:13 CDT AM CDT Roopa Lopez MD LAB BLOOD ORDERABLES Performing Organization Address [facility]/ZIP Code Phon e Number [facility] [address] [place] [address] (ABNORMAL) T4, free (09/24/2019 8:07 AM CDT) athologist Signature Free T4 0.16 (L) 0.78 - 2.19 09/24/2019 [facility] ng/dL 1:52 PM CDT CENTER LAB[facility]ATORY Comment: [...] MD LAB BLOOD ORDERABLES Performing Organization Address City/[facility]/ZIP Code Phon e Number [facility] [address] [place] [address] (ABNORMAL) TSH (09/24/2019 8:07 AM CDT) Patholo [...] MD LAB BLOOD ORDERABLES Performing Organization Address City/[facility] Code Phon e Number [facility] [address] [place] [address] (ABNORMAL) T3 (09/24/2019 8:07 AM CDT) P athologist Signature T3, Total 0.74 (L) 0.97 - 1.69 09/24/2019 [facility] ng/mL 2:04 PM CDT CENTER LABORATORY [...] MD LAB BLOOD ORDERABLES Performing Organization Address City/[facility] Code Phon e Number [facility] [address] [place] [address] Glucose, fasting (09/24/2019 8:07 AM CDT) P athologist Signature Glucose 97 70 - 100 09/24/2019 [facility] mg/dL 1:51 PM CDT CENTER LAB[facility]ORY Specimen Anatomical Collection Method Collection Time Receive d Time (Source) Location / / Volume Laterality Blood (Blood, 09/24/2019 8:07 AM 09/24/19 20 Venous) CDT 12:51 PM CDT Roopa Lopez MD LAB BLOOD ORDERABLES Performing Organization Address City/State/ZIP Code Phon e Number [facility] [address] [place] [address] documented in this encounter Visit Diagnoses Diagnosis Glucose intolerance Graves disease Toxic diffuse goiter without mention of thyrotoxic crisis or storm documented in this encounter Care Teams Daytime Caregiver Relationship Specialty Start Date End Date Roopa Lopez MD PCP - General Family Medicine 07/15/19 02/26/[address] [place] [address] documented as of this encounter
--- OUTSIDE RECORDS SUMMARY | 2022-02-12 17:35 | XMS_ITS | Encounter Summary ---
:1970 Author Organization [facility] Address [address] [place] [address] Care Team Providers Name Role Phone Roopa [...] on filedocumented in this encounter Care Teams Traffic Survey Technician Relationship Specialty Start Date End Date Rooap Lopez MD PCP - General Family Medicine 07/15/19 02/26/[address] [place] [address] documented as of this encounter
--- OUTSIDE RECORDS SUMMARY | 2022-02-12 17:35 | XMS_ITS | Encounter Summary ---
:1970 Author Organization [facility] Address [address] [place] [address] Care Team Providers Name Role Phone Roopa Lopez MD Primary Care Provider Encounter Details Date Type Department Care Team Description 06/21/2019 Telephone Tiffanie Coto, 405 [facility] FIXTURE MAKER, [place] [address] [place] [address] [place], [place] [address] Social History Tobacco Use [...] on filedocumented in this encounter Care Teams Fisher Crab Relationship Specialty Start Date End Date Roopa Lopez MD PCP - General Family Medicine 07/15/19 02/26/21 [address] [place] [address] documented as of this encounter
--- OUTSIDE RECORDS SUMMARY | 2022-02-12 17:35 | XMS_ITS | Encounter Summary ---
:1970 Author Organization [facility] Address [address] [place] [address] Care Team Providers Name Role Phone Tiffanie Mcgovern INSTRUCTIONAL SERVICES LIBRARIAN, FIRE OPERATIONS FORESTER Primary Care Provider [phone] Encounter Details Date Type Department Care Team Description 06/17/2019 Orders Only Rogelio Guerrero Tiffanie Mcgovern, Arthralgia, [address] INSTRUCTIONAL SERVICES LIBRARIAN, FIRE OPERATIONS FORESTER unspecified joint [place] [address] (Primary Dx) [address] [place] [address] Social History Tobacco Use Types Packs/Day Years [...] Add-On Test Request (06/17/2019 2:35 PM CDT) [facility] gist Method Time Signature Add-on Testing SEE BELOW 06/17/2019 [place] 2:41 PM CDT [facility] Comment: TPO added to [id number] Specimen Anatomical Collection Method Collection Time Receive d Time (Source) Location / / Volume Laterality 06/17/2019 2:35 PM 0 2:35 CDT PM CDT Tiffanie Mcgovern APRN, KYLE LAB BLOOD ORDERABLES Performing Organization Address City/State/ZIP Code Phon e Number [facility] [address] [place] [address] documented in this encounter Visit Diagnoses Diagnosis Arthralgia, unspecified joint - Primary documented in this encounter Care Teams Carbon Blocks Press Operator Relationship Specialty Start Date End Date Tiffanie Mcgovern APRN, FIRE OPERATIONS FORESTER PCP - General 10/14/17 07/14/19 100 [place] [address] documented as of this encounter
--- OUTSIDE RECORDS SUMMARY | 2022-02-12 17:35 | XMS_ITS | Encounter Summary ---
:1970 Author Organization [facility] Address [address] [place] [address] Care Team Providers Name Role Phone Roopa Lopez MD Primary Care Provider Reason for Visit Reason Onset Date Comments Thyroid Problem 06/28/2019 Encounter Details Date Type Department Care Team Description 06/28/2019 Telephone Roopa Caldwell MD Thyroid Problem [address] [place], [place] [address] [place], [place] [phone] [address] (Wo rk) Social History Tobacco Use Types [...] going to discuss her thyroid tests with [facility] End[facility] department. Telephone Encounter - Chelsea Romero [...] on filedocumented in this encounter Care Teams Marble Polisher Relationship Specialty Start Date End Date Roopa Lopez MD PCP - General Family Medicine 07/15/19 02/26/[address] [place] [address] documented as of this encounter
--- OUTSIDE RECORDS SUMMARY | 2022-02-12 17:35 | XMS_ITS | Encounter Summary ---
:1970 Author Organization [facility] Address [address] [place] [address] Care Team Providers Name Role Phone Roopa Lopez MD Primary Care Provider Reason for Visit Reason Comments Med Refill Encounter Details Date Type Department Care Team Description 09/21/2019 Refill [place], GUSTAVO (generalized anxiety [address] MD disorder) Robert Guerre[place] [address] [facility] [address] [place] [phone] [place] [address] Social History Tobacco Use Types Packs/Day Years [...] # 90, 1 refill. Was filled at [facility] mail is requesting. Requested Prescriptions Pending Prescriptions [...] disorder documented in this encounter Care Teams Credit Risk Associate Relationship Specialty Start Date End Date Roopa Lopez MD PCP - General Family Medicine 07/15/19 02/26/[address] [place] [address] documented as of this encounter
--- OUTSIDE RECORDS SUMMARY | 2022-02-12 17:35 | XMS_ITS | Encounter Summary ---
:1970 Author Organization [facility] Address [address] [place] [address] Care Team Providers Name Role Phone Roopa Lopez MD Primary Care Provider Encounter Details Date Type Department Care Team Description 10/22/2019 Telephone SE Endocrinology Valerie Major MD [address] [place], [place] [address] Social History Tobacco Use Types Packs/Day Years [...] and verbalized an understanding. Transferred patient to [facility] f/u appt. Telephone Encounter - Valerie [...] MD LAB BLOOD ORDERABLES Performing Organization Address City/[facility]/ZIP Code Phon e Number [facility] [address] [place] [address] TSH (12/22/2019 1:11 PM CDT) athologist Signature [...] MD LAB BLOOD ORDERABLES Performing Organization Address City/[facility] Code Phon e Number [facility] [address] [place] [address] documented in this encounter Visit Diagnoses Diagnosis Postablative hypothyroidism Other postablative hypothyroidism documented in this encounter Care Teams Facilities Painter Relationship Specialty Start Date End Date Roopa Lopez MD PCP - General Family Medicine 07/15/19 02/26/21 17[address] [facility] [address] [place] [address] documented as of this encounter
--- OUTSIDE RECORDS SUMMARY | 2022-02-12 17:35 | XMS_ITS | Encounter Summary ---
:1970 Author Organization [facility] Address [address] [place] [address] Care Team Providers Name Role Phone Roopa [...] CDT) P athologist Signature GFR >60 09/02/2019 [facility] 1:07 PM T CENTER LAB[facility]ATORY >60 09/02/2019 [facility] [place] GFR 1:07 PM T CENTER LAB[facility]ORY Comment: [...] Organization Address City/State/ZIP Code Phon e Number [facility] [address] [place] [address] (ABNORMAL) Basic metabolic panel (09/02/2019 9:17 AM CDT) Analysis Performed At Patho logist Time Signature Sodium 138 135 - 145 09/02/2019 [place] mEq/L 1:07 PM [facility] Potassium 3.7 3.5 - 5.1 09/02/2019 [place] mEq/L 1:07 PM [facility] Chloride 105 98 - 107 09/02/2019 [place] mEq/L 1:07 PM [facility] CO2 24 22 - 29 09/02/2019 [place] mmol/L 1:07 PM [facility] Creatinine 0.5 0.4 - 1.2 09/02/2019 [place] mg/dL 1:07 PM [facility] BUN 14 5 - 25 09/02/2019 [place] mg/dL 1:07 PM [facility] Glucose 119 (H) 70 - 100 09/02/2019 [place] mg/dL 1:07 PM CDT [facility] Calcium, 9.8 8.4 - 10.2 09/02/2019 [place] Total,S mg/dL 1:07 PM T [facility] Fasting? Yes 09/02/2019 [facility] 9:20 AM [facility] Specimen Anatomical Collection Method Collection Time Receive d Time (Source) Location / / Volume Laterality Blood 09/02/2019 9:17 AM 0 1:07 CDT PM CDT Valerie Major MD LAB BLOOD ORDERABLES Performing Organization Address City/[facility] Phon e Number [facility] [address] [place] [address] [facility] [address] [place] [address] LABORATORY T4, free (09/02/2019 9:17 AM CDT) athologist Signature Free T4 1.84 0.78 - 2.19 09/03/2019 [facility] ng/dL 2:34 PM CDT CENTER LABORATORY [...] MD LAB BLOOD ORDERABLES Performing Organization Address City/[facility]/ZIP Code Phon e Number [facility] [address] [place] [address] (ABNORMAL) TSH (09/02/2019 9:17 AM CDT) Patholo gist Method Time Signature TSH, Sensitive <0.01 (L) 0.46 - 09/03/2019 [place] 4.68 mIU/L 2:50 PM CDT [facility] LAB[facility]ORY Comment: The results [...] Organization Address City/State/ZIP Code Phon e Number [facility] [address] [place] [address] documented in this encounter Visit Diagnoses Diagnosis Graves disease Toxic diffuse goiter without mention of thyrotoxic crisis or storm Edema, unspecified type documented in this encounter Care Teams Technical Service Engineer Relationship Specialty Start Date End Date Roopa Lopez MD PCP - General Family Medicine 07/15/19 02/26/[address] [place] [address] documented as of this encounter
--- OUTSIDE RECORDS SUMMARY | 2022-02-12 17:35 | XMS_ITS | Encounter Summary ---
:[address] [facility] Address [address] [place] [address] Care Team Providers Name Role Phone Roopa Lopez MD Primary Care Provider Encounter Details Date Type Department Care Team Description 08/10/2019 Lab Robert Guerrero Graves disease [address] [place] [address] Social History Tobacco Use Types [...] T4 2.63 (H) 0.78 - 2.19 08/10/2019 [facility] ng/dL 3:09 PM CDT CENTER LABORATORY [...] Organization Address City/State/ZIP Code Phon e Number [facility] [address] [place] [address] (ABNORMAL) TSH (08/10/2019 8:30 AM CDT) Patholo gist Method Time Signature TSH, Sensitive <0.01 (L) 0.46 - 08/10/2019 [facility] 4.68 mIU/L 3:28 PM CDT MEDICAL CENTER [...] MD LAB BLOOD ORDERABLES Performing Organization Address [facility] Phon e Number [facility] [address] [place] [phone] (ABNORMAL) T3 (08/10/2019 8:30 AM CDT) P athologist Signature T3, Total 3.16 (H) 0.97 - 1.69 08/10/2019 [facility] ng/mL 3:28 PM CDT CENTER [...] MD LAB BLOOD ORDERABLES Performing Organization Address City/[facility] e Number [facility] [address] [place] [address] documented in this encounter Visit Diagnoses Diagnosis Graves disease Toxic diffuse goiter without mention of thyrotoxic crisis or storm documented in this encounter Care Teams Staff Internist Office Based Only Relationship Specialty Start Date End Date Roopa Lopez MD PCP - General Family Medicine 07/15/19 02/26/[address] [place] [address] documented as of this encounter
--- OUTSIDE RECORDS SUMMARY | 2022-02-12 17:35 | XMS_ITS | Encounter Summary ---
:1970 Author Organization [facility] Address [address] [place] [address] Care Team Providers Name Role Phone Roopa Lopez MD Primary Care Provider Reason for Referral Hospital - Outpatient (Routine) - Closed Specialty Diagnoses / Procedures Referred By Contact Refer red To Contact Radiology Diagnoses Graves disease Valerie Major MD Nuclear Medicine Procedures Nuclear medicine thyroid therapy ablation hyperthyroid [address] [place] [address] [place] [address] Phone: Fax: Referral ID Status Reason Start Date Expiration Date Visits Requ ested Visits Authorized [id number] Closed 07/16/2019 01/12/2020 1 1 Encounter Details Date Type Department Care Team Description 07/16/2019 Orders Only SE Endocrinology Moriah Graves disease (Primary [address] MD Valerie Dx) [place] [address] Social History Tobacco Use Types [...] detail with the patient by the Radiation Special Events Driver (Jaimie Maharaj). ?? Verbal and written informed [...] detail with the patient by the Radiation Special Events Driver (Jaimie Maharaj). Verbal and written informed consent [...] storm documented in this encounter Care Teams Public Safety Director Relationship Specialty Start Date End Date Roopa Lopez MD PCP - General Family Medicine 07/15/19 02/26/[address] [place] [address] documented as of this encounter
--- OUTSIDE RECORDS SUMMARY | 2022-02-12 17:35 | XMS_ITS | Encounter Summary ---
:1970 Author Organization [facility] Address [address] [place] [address] Care Team Providers Name Role Phone Tiffanie Mcgovern APRN, MILL HOUSE SUPERVISOR Primary Care Provider [phone] Encounter Details Date Type Department Care Team Description 06/28/2019 Lab Robert Guerrero Hyperthyroidism [address] [place] [address] Social History Tobacco Use [...] Free 7.0 (H) 2.8 - 4.4 06/29/2019 [facility] pg/mL 7:51 PM CDT LABORATORIES Comment: Test Performed by: [facility] [place] [address] Gluing Machine Operator Electronic: Butch Guerrero M.D. Ph. D.; CLIA# [id number] Specimen Anatomical Collection Method Collection Time Receive d Time (Source) Location / / Volume Laterality Blood (Blood, 06/28/2019 3:58 PM 06/29/19 1:58 Venous) CDT PM CDT D. Raheel Lopez MD LAB BLOOD ORDERABLES Performing Organization Address City/State/ZIP Code Phon e Number [facility] see result attachment for specific address [...] respectively (97.5th percenti les). Test Performed by: [facility] [address] [place] [address] Gluing Machine Operator Electronic: Butch Guerrero M.D. Ph. D.; CLIA# [id number] Specimen Anatomical Collection Method Collection Time Receive d Time (Source) Location / / Volume Laterality Blood (Blood, 06/28/2019 3:58 PM 06/29/19 1:58 Venous) CDT PM CDT D. Raheel Molenaar MD LAB BLOOD ORDERABLES Performing Organization Address City/State/ZIP Code Phon e Number [facility] see result attachment for specific address documented in this encounter Visit Diagnoses Diagnosis Hyperthyroidism Thyrotoxicosis without mention of goiter or other cause, without mention of thyrotoxic crisis or storm documented in this encounter Care Teams Ranch Cook Relationship Specialty Start Date End Date Tiffanie Mcgovern, FIRE PROTECTION ENGINEERING TECHNICIAN, MILL HOUSE SUPERVISOR PCP - General 10/14/17 07/14/[address] [place] [place] [phone] documented as of this encounter
--- OUTSIDE RECORDS SUMMARY | 2022-02-12 17:35 | XMS_ITS | Encounter Summary ---
:1970 Author Organization [facility] Address [address] [place] [address] Care Team Providers Name Role Phone Roopa Lopez MD Primary Care Provider Encounter Details Date Type Department Care Team Description 10/18/2019 Lab SE Lab Edema, unspecified type [address] [place] [address] Social History Tobacco Use Types [...] AM CDT) athologist Signature GFR >60 10/18/2019 [facility] 3:22 PM [facility] >60 10/18/2019 [facility] [place] GFR 3:22 PM [facility] Comment: GFR calculated from serum [...] Organization Address City/State/ZIP Code Phon e Number [facility] [address] [place] [address] (ABNORMAL) Basic metabolic panel (10/18/2019 11:08 AM CDT) Analysis Performed At Patho logist Time Signature Sodium 138 135 - 145 10/18/2019 [place] mEq/L 3:22 PM [facility] Potassium 3.6 3.5 - 5.1 10/18/2019 [place] mEq/L 3:22 PM [facility] Chloride 103 98 - 107 10/18/2019 [place] mEq/L 3:22 PM [facility] CO2 26 22 - 29 10/18/2019 [place] mmol/L 3:22 PM [facility] Creatinine 0.7 0.4 - 1.2 10/18/2019 [place] mg/dL 3:22 PM [facility] BUN 14 5 - 25 10/18/2019 [place] mg/dL 3:22 PM [facility] Glucose 105 (H) 70 - 100 10/18/2019 [place] mg/dL 3:22 PM [facility] Calcium, 9.2 8.4 - 10.2 10/18/2019 [place] Total,S mg/dL 3:22 PM [facility] Fasting? No 10/18/2019 [place] 11:08 AM [facility] Specimen Anatomical Collection Method Collection Time Receive d Time (Source) Location / / Volume Laterality Blood 10/18/2019 11:08 10/18/2019 2:17 AM CDT PM CDT Valerie Major MD LAB BLOOD ORDERABLES Performing Organization Address City/State/ZIP Code Phon e Number [facility] [address] [place] [address] documented in this encounter Visit Diagnoses Diagnosis Edema, unspecified type documented in this encounter Care Teams Chief Power Dispatcher Relationship Specialty Start Date End Date Roopa Lopez MD PCP - General Family Medicine 07/15/19 02/26/21 [address] [place] [address] documented as of this encounter
--- OUTSIDE RECORDS SUMMARY | 2022-02-12 17:35 | XMS_ITS | Encounter Summary ---
:1970 Author Organization [facility] Address [address] [place] [address] Care Team Providers Name Role Phone Roopa Lopez MD Primary Care Provider Encounter Details Date Type Department Care Team Description 09/26/2019 Orders Only SE Endocrinology Muthusamy, Postablative [address] MD Valerie hypothyroidism ([place] [address] Dx) [phone] Social History Tobacco Use Types Packs/Day Years [...] Free T4 1.19 0.78 - 2.19 10/14/2019 [facility] ng/dL 3:54 PM CDT CENTER [...] MD LAB BLOOD ORDERABLES Performing Organization Address City/[facility]/ZIP Code Phon e Number [facility] [address] [place] [address] TSH (10/14/2019 8:03 AM CDT) athologist Signature [...] AM 0 1:46 CDT PM CDT Valerie Mjaor MD LAB BLOOD ORDERABLES Performing Organization Address City/[facility] Code Phon e Number [facility] [address] [place] [address] documented in this encounter Visit Diagnoses Diagnosis Postablative hypothyroidism - Primary Other postablative hypothyroidism documented in this encounter Care Teams Bindery Machine Setter Relationship Specialty Start Date End Date Roopa Lopez MD PCP - General Family Medicine 07/15/19 02/26/21 [address] [facility] [address] [facility] [place] [address] documented as of this encounter
--- OUTSIDE RECORDS SUMMARY | 2022-02-12 17:35 | XMS_ITS | Encounter Summary ---
:1970 Author Organization [facility] Address [address] [place] [address] Care Team Providers Name Role Phone Roopa Lopez MD Primary Care Provider Encounter Details Date Type Department Care Team Description 09/13/2019 Orders Only Roopa [place] Anxiety (Primary Dx) [address] [facility] [place] Rogelio [place] [address] [place] [phone] [place] [address] Social History Tobacco Use Types Packs/Day Years [...] unspecified documented in this encounter Care Teams Global Recruiter Relationship Specialty Start Date End Date Roopa Lopez MD PCP - General Family Medicine 07/15/19 02/26/[address] [place] [address] documented as of this encounter
--- OUTSIDE RECORDS SUMMARY | 2022-02-12 17:35 | XMS_ITS | Encounter Summary ---
:1970 Author Organization [facility] Address [address] [place] [address] Care Team Providers Name Role Phone Roopa Lopez MD Primary Care Provider Reason for Visit Reason Comments Graves' Disease Encounter Details Date Type Department Care Team Description 10/18/2019 Office Visit Endocrinology Muthusamy, Postablative hypothyroidism (Primary Dx); [address] MD Valerie Graves disease; [place] [address] Edema, unspecified type [phone] Social History Tobacco Use Types Packs/Day Years [...] aged 20 and 16. 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 Review of systems: As in HPI. [...] by mouth every night 1 to 2 [id number] tablet 3 ??? verapamil ER (VERELAN) 240 [...] TSH, Sensitive 0.15 (L) 0.46 - 11/04/2019 [place] 4.68 mIU/L 2:45 PM CDT MEDICAL CENTER [...] e Number [facility] [address] [place] [address] T4, free (11/04/2019 9:40 AM CDT) P athologist Signature Free T4 1.50 0.78 - 2.19 11/04/2019 [facility] ng/dL 2:32 PM CDT CENTER LABORATORY [...] MD LAB BLOOD ORDERABLES Performing Organization Address [facility] Phon e Number [facility] [address] [place] [address] (ABNORMAL) Basic metabolic panel (10/18/2019 11:08 AM CDT) [facility] Time Signature Sodium 138 135 - 145 10/18/2019 [place] mEq/L 3:22 PM [facility] Potassium 3.6 3.5 - 5.1 10/18/2019 [place] mEq/L 3:22 PM [facility] Chloride 103 98 - 107 10/18/2019 [place] mEq/L 3:22 PM [facility] CO2 26 22 - 29 10/18/2019 [place] mmol/L 3:22 PM [facility] Creatinine 0.7 0.4 - 1.2 10/18/2019 [place] mg/dL 3:22 PM [facility] BUN 14 5 - 25 10/18/2019 [place] mg/dL 3:22 PM [facility] Glucose 105 (H) 70 - 100 10/18/2019 [place] mg/dL 3:22 PM [facility] Calcium, 9.2 8.4 - 10.2 10/18/2019 [place] Total,S mg/dL 3:22 PM [facility] Fasting? No 10/18/2019 [place] 11:08 AM [facility] Specimen Anatomical Collection Method Collection Time Receive d Time (Source) Location / / Volume Laterality Blood 10/18/2019 11:08 10/18/2019 2:17 AM CDT PM CDT Valerie Major MD LAB BLOOD ORDERABLES Performing Organization Address [facility] Code Phon e Number [facility] [address] [place] [address] documented in this encounter Visit Diagnoses Diagnosis Postablative hypothyroidism - Primary Other postablative hypothyroidism Graves disease Toxic diffuse goiter without mention of thyrotoxic crisis or storm Edema, unspecified type documented in this encounter Care Teams Pole Incisor Operator Relationship Specialty Start Date End Date Roopa Lopez MD PCP - General Family Medicine 07/15/19 02/26/21 17[address] [facility] [address] [place] [address] documented as of this encounter
--- OUTSIDE RECORDS SUMMARY | 2022-02-12 17:35 | XMS_ITS | Encounter Summary ---
:1970 Author Organization [facility] Address [address] [place] [address] Care Team Providers Name Role Phone Roopa [...] on filedocumented in this encounter Care Teams Torts Law Professor Relationship Specialty Start Date End Date Roopa Lopez MD PCP - General Family Medicine 07/15/19 02/26/[address] [place] [address] documented as of this encounter
--- OUTSIDE RECORDS SUMMARY | 2022-02-12 17:35 | XMS_ITS | Encounter Summary ---
:1970 Author Organization [facility] Address [address] [place] [address] Care Team Providers Name Role Phone Tiffanie Mcgovern APRN, CURING MACHINE OPERATOR Primary Care Provider Encounter Details Date Type [...] Thyroperoxidase (TPO) Ab (06/16/2019 9:03 AM CDT) [facility] Method Time Signature Thyroid 9.3 (H) <9.0 06/18/2019 [facility] Peroxidase IU/mL 1:58 PM CDT LABORATORIES (TPO) Ab Comment: Test Performed by: [facility] [address] [place] [address]81 Green Marketing Specialist: Butch Guerrero M.D. Ph. D.; CLIA# [id number] Specimen Anatomical Collection Method Collection Time Receive d Time (Source) Location / / Volume Laterality 06/16/2019 9:03 AM 0 CDT 10:09 PM CDT Tiffanie Mcgovern APRN, CNP LAB BLOOD ORDERABLES Performing Organization Address City/State/ZIP Code Phon e Number [facility] see result attachment for specific address (ABNORMAL) T4, free (06/16/2019 9:03 AM CDT) athologist Signature Free T4 3.30 (H) 0.78 - 2.19 06/17/2019 [facility] ng/dL 3:56 PM CDT CENTER LABORATORY Comment: [...] Organization Address City/State/ZIP Code Phon e Number [facility] [address] [place] [phone] Glomerular filtration rate (GFR) (06/16/2019 9:03 AM CDT) athologist Signature GFR >60 06/16/2019 [facility] 12:28 PM CDT CENTER LABORATORY >60 06/16/2019 [facility] Trinidadian GFR 12:28 PM CDT CENTER LABORATORY Comment: [...] 9:03 CDT AM CDT Tiffanie M Mcgovern FITTINGS FINISHER, CURING MACHINE OPERATOR LAB BLOOD ORDERABLES Performing Organization Address City/State/ZIP Code Phon e Number [facility] [address] [place] [address] (ABNORMAL) CBC Branch Off w/Diff (06/16/2019 9:03 AM CDT) [facility] Method Time Signature WBC 4.8 3.5 [...] FALLS Granulocytes/Leslie 3.1 2.1 - 8.7 06/16/2019 [facility] JONES trophils K/uL 11:00 AM CDT FALLS Absolute Specimen Anatomical Collection Method Collection Time Receive d Time (Source) Location / / Volume Laterality Blood 06/16/2019 9:03 AM 0 9:12 CDT AM CDT Tiffanie Mcgovern APRN, CNP LAB BLOOD ORDERABLES Performing Organization Address City/[facility]/ZIP Code Phon e Number [facility] ROBERT GUERRERO [address] [place] [address] ESR-Sed rate (06/16/2019 9:03 AM CDT) athologist Signature Sed Rate 23 0 - 29 06/16/2019 [facility] mm/hr 1:44 PM CDT [facility] Specimen Anatomical Collection Method Collection Time Receive d Time (Source) Location / / Volume Laterality Blood 06/16/2019 9:03 AM 0 CDT 11:53 AM CDT Tiffanie Mcgovern APRN, CNP LAB BLOOD ORDERABLES Performing Organization Address City/[facility]/ZIP Code Phon e Number [facility] [address] [place] [address] C-reactive protein ([facility] preferred) (06/16/2019 9:03 AM CDT) athologist Signature CRP 2.0 0.0 - 4.9 06/16/2019 [facility] mg/L 12:28 PM CDT CENTER LABORATORY Specimen Anatomical Collection Method Collection Time Receive d Time (Source) Location / / Volume Laterality Blood 06/16/2019 9:03 AM 0 CDT 11:53 AM CDT Tiffanie Mcgovern APRN, CNP LAB BLOOD ORDERABLES Performing Organization Address City/State/ZIP Code Phon e Number [facility] [address] [place] [address] ROCÍO (06/16/2019 9:03 AM CDT) athologist Signature ROCÍO 0.7 <=1.0 06/17/2019 [facility] (Negative) 4:17 PM CDT LABORATORIES U Comment: ADDITIONAL INFORMATIO N Method: Enzyme-linked immunoassay using HEp-2 nuclear extract supplemented with purified antig ens. Test Performed by: [facility] [address] [place] [address] 52 Green Marketing Specialist: Butch Guerrero M.D. Ph. D.; IA# [id number] Specimen Anatomical Collection Method Collection Time Receive d Time (Source) Location / / Volume Laterality Blood (Blood, 06/16/2019 9:03 AM 06/16/19 2:16 Venous) CDT PM CDT Tiffanie Mcgovern APRN, CNP LAB BLOOD ORDERABLES Performing Organization Address City/State/ZIP Code Phon e Number [facility] see result attachment for specific address Rheumatoid factor (06/16/2019 9:03 AM CDT) P athologist Signature Rheumatoid 6 1 - 11 06/16/2019 [facility] Factor IU/mL 12:48 PM [facility] Specimen Anatomical Collection Method Collection Time Receive d Time (Source) Location / / Volume Laterality Blood (Blood, 06/16/2019 9:03 AM 06/16/19 Venous) CDT 12:01 PM CDT Tiffanie Mcgovern APRN, CNP LAB BLOOD ORDERABLES Performing Organization Address City/[facility]/ZIP Code Phon e Number [facility] [address] [place] [phone] (ABNORMAL) Thyroid Function [place] (06/16/2019 9:03 AM CDT) [facility] gist Method Time Signature TSH, Sensitive <0.01 (L) 0.46 - 06/17/2019 [place] 4.68 mIU/L 2:16 PM CDT [facility] Comment: The results from [...] Organization Address City/State/ZIP Code Phon e Number [facility] [address] [place] [address] Cyclic citrullinated peptide antibody (06/16/2019 9:03 AM CDT) athologist Signature Cyclic <15.6 <20.0 06/17/2019 [facility] Citrullin (Negative) 7:02 PM CDT LABORATORIES Peptide Ab U Comment: Test Performed by: [facility] [address] [place] [address] 90 Green Marketing Specialist: Butch Guerrero M.D. Ph. D.; CLIA# [id number] Specimen Anatomical Collection Method Collection Time Receive d Time (Source) Location / / Volume Laterality Blood (Blood, 06/16/2019 9:03 AM 06/16/19 20 2:16 Venous) CDT PM CDT Tiffnaie Mcgovern APRN, CNP LAB BLOOD ORDERABLES Performing Organization Address City/[facility]/ZIP Code Phon e Number [facility] see result attachment for specific address Vitamin D, Total (06/16/2019 9:03 AM CDT) athologist Signature Vitamin D, 56.3 ng/mL 06/16/2019 [facility] Total 12:38 PM CDT CENTER LABORATORY Comment: [...] CDT 11:53 AM CDT Tiffanie Mcgovern APRN, CURING MACHINE OPERATOR LAB BLOOD ORDERABLES Performing Organization Address City/State/ZIP Code Phon e Number [facility] [address] [place] [address] (ABNORMAL) Comprehensive metabolic panel (06/16/2019 9:03 AM CDT) [facility] Method Time Signature Total Protein 7.1 6.3 - 8.2 06/16/2019 [place] g/dL 12:28 PM [facility] Albumin, Serum 4.0 3.5 - 5.0 06/16/2019 [place] g/dL 12:28 PM [facility] Total Bilirubin 0.9 0.1 - 1.0 06/16/2019 [place] mg/dL 12:28 PM [facility] AST 60 (H) 8 - 43 U/L 06/16/2019 [place] 12:28 PM [facility] Alkaline 42 38 - 128 06/16/2019 [place] Phosphatase U/L 12:28 PM [facility] ALT (SGPT) 56 (H) 0 - 34 U/L 06/16/2019 [place] 12:28 PM [facility] Sodium 134 (L) 135 - 145 06/16/2019 [place] mEq/L 12:28 PM [facility] Potassium 4.0 3.5 - 5.1 06/16/2019 [place] mEq/L 12:28 PM [facility] Chloride 98 98 - 107 06/16/2019 [place] mEq/L 12:28 PM [facility] CO2 26 22 - 29 06/16/2019 [place] mmol/L 12:28 PM [facility] BUN 12 5 - 25 06/16/2019 [place] mg/dL 12:28 PM [facility] Creatinine 0.5 0.4 - 1.2 06/16/2019 [place] mg/dL 12:28 PM [facility] Glucose 156 (H) 70 - 100 06/16/2019 [place] mg/dL 12:28 PM [facility] LAB[facility]ORY Calcium, Total,S 9.8 8.4 - 10.2 06/16/2019 [place] mg/dL 12:28 PM [facility] LABOR[facility]ORY Fasting? No 06/16/2019 [place] 9:12 AM [facility] Specimen Anatomical Collection Method Collection Time Receive d Time (Source) Location / / Volume Laterality Blood 06/16/2019 9:03 AM 0 CDT 11:53 AM CDT Tiffanie Mcgovern APRN, CNP LAB BLOOD ORDERABLES Performing Organization Address City/State/ZIP Code Phon e Number [facility] [address] [place] [address] documented in this encounter Visit Diagnoses Diagnosis Arthralgia, unspecified joint documented in this encounter Care Teams Brush Holder Inspector Relationship Specialty Start Date End Date Tiffanie cMgovern APRN, CURING MACHINE OPERATOR PCP - General 10/14/17 07/14/19 [address] [facility] [place] [address] documented as of this encounter
--- OUTSIDE RECORDS SUMMARY | 2022-02-12 17:35 | XMS_ITS | Encounter Summary ---
:[address] [facility] Address [address] [place] [address] Care Team Providers Name Role Phone Roopa Lopez MD Primary Care Provider Encounter Details Date Type Department Care Team Description 09/13/2019 Orders Only Roopa [place] MD [address] [place], [place] [address] [place], [place] [phone] [address] (Wo rk) Social History Tobacco Use Types [...] filedocumented in this encounter Care Teams Distribution Systems Serviceperson Relationship Specialty Start Date End Date Roopa Lopez MD PCP - General Family Medicine 07/15/19 02/26/[address] [place] [address] documented as of this encounter
--- OUTSIDE RECORDS SUMMARY | 2022-02-12 17:35 | XMS_ITS | Encounter Summary ---
:1970 Author Organization [facility] Address [address] [place] [address] Care Team Providers Name Role Phone Roopa Lopez MD Primary Care Provider Encounter Details Date Type Department Care Team Description 07/15/2019 Orders Only Roopa [place] Pain, dental (Primary [address] MD Raheel Dx) ERNESTO [place] [phone] [place] [address] Social History Tobacco Use Types Packs/Day Years [...] Primary documented in this encounter Care Teams Sisal Operator Relationship Specialty Start Date End Date Roopa Lopez MD PCP - General Family Medicine 07/15/19 02/26/[address] [place] [address] documented as of this encounter
--- OUTSIDE RECORDS SUMMARY | 2022-02-12 17:35 | XMS_ITS | Encounter Summary ---
:1970 Author Organization [facility] Address [address] [place] [address] Care Team Providers Name Role Phone Roopa [...] Signature TSH, Sensitive 2.70 0.46 - [facility] mIU/L 3:54 PM CDT CENTER [...] MD LAB BLOOD ORDERABLES Performing Organization Address [facility] Phon e Number [facility] [address] [place] [address] T4, free (10/14/2019 8:03 AM CDT) P athologist Signature Free T4 1.19 0.78 - 2.19 10/14/2019 [facility] ng/dL 3:54 PM CDT CENTER LABORATORY [...] MD LAB BLOOD ORDERABLES Performing Organization Address [facility] Phon e Number [facility] [address] [place] [address] documented in this encounter Visit Diagnoses Diagnosis Postablative hypothyroidism Other postablative hypothyroidism documented in this encounter Care Teams Policy Adviser Relationship Specialty Start Date End Date Roopa Lopez MD PCP - General Family Medicine 07/15/19 02/26/[address] [place] [address] documented as of this encounter
--- OUTSIDE RECORDS SUMMARY | 2022-02-12 17:35 | XMS_ITS | Encounter Summary ---
:1970 Author Organization [facility] Address [address] [place] [address] Care Team Providers Name Role Phone Tiffanie Mcgovern APRN, KYLE Primary Care Provider Reason for Visit Reason Comments Hyperthyroidism Consultation (Routine) - Closed Specialty Diagnoses / Procedures Referred By Contact Refer red To Contact Endocrinology Diagnoses Hyperthyroidism Roopa Lopez MD [address] [place] [address] Referral ID Status Reason Start Date Expiration Date Visits V isits Requested Authorized [id number] Closed Specialty 06/29/2019 06/28/2020 1 1 Services Required Encounter Details Date Type Department Care Team Description 07/02/2019 Consult [facility] Endocrinology Roopa Lopez MD [address] [place] [address] Hyperthyroidism (Primary Dx); [address] [facility] [place] [address] Social History Tobacco Use Types Packs/Day Years [...] daily 2. Call us with questions at [phone] documented in this encounter Progress Notes Valerie Major MD - 07/02/2019 12:30 PM CDT Consultation Primary Care Provider: Tiffanie Mcgovern APRN, OXYGEN FURNACE OPERATOR Referring Provider: Roopa Lopez MD Chief Complaint: [...] of cardiac comorbidities with coronary vasospasm induced ND in 2010. Subsequently she was seen for virtual visit by cardiology at [facility] and underwent Holter monitoring which did not show any significant arrhythmias in May 2019. She subsequently underwent thyroid lab testing at [facility] on 06/16/2019 that showed a completely suppressed [...] Ab <15.6 <20.0 (Negative) U Thyroid Function Cooter Collection Time: 06/16/19 9:03 AM Result Value [...] by mouth every night 1 to 2 tablet 3 ??? verapamil ER (VERELAN) 240 [...] age 20 and 16. 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 Does not smoke. Rare alcohol use. Objective [...] or puffiness; no conjunctivalinjection. Normal oral cavity Gjhs-snlhnin-seiiriijm to palpate, no dominant nodularity or obvious [...] Total 3.16 (H) 0.97 - 1.69 08/10/2019 [facility] ng/mL 3:28 PM CDT CENTER LABORATORY [...] MD LAB BLOOD ORDERABLES Performing Organization Address City/[facility]/ZIP Code Phon e Number [facility] [address] [place] [address] (ABNORMAL) TSH (08/10/2019 8:30 AM CDT) Patholo [...] LAB BLOOD ORDERABLES Performing Organization Address [facility]/ZIP Code Phon e Number [facility] [address] [place] [phone] (ABNORMAL) T4, free (08/10/2019 8:30 AM CDT) [...] Address City/State/ZIP Code Phon e Number [facility] [address] [place] [address] documented in this encounter Visit Diagnoses Diagnosis Hyperthyroidism - Primary Thyrotoxicosis without mention of goiter or other cause, without mention of thyrotoxic crisis or storm Graves disease Toxic diffuse goiter without mention of thyrotoxic crisis or storm documented in this encounter Care Teams Tele Grout Sewer Line Repairer Relationship Specialty Start Date End Date Tiffanie Mcgovern, GOLF SUPERINTENDENT, OXYGEN FURNACE OPERATOR PCP - General 10/14/17 07/14/19 [address] [place] [address] documented as of this encounter
--- OUTSIDE RECORDS SUMMARY | 2022-02-12 17:36 | XMS_ITS | Encounter Summary ---
:1970 Author Organization [facility] Address [address] [place] [address] Care Team Providers Name Role Phone Tiffanie Mcgovern LANDSCAPE MANAGER, MUD JACK NOZZLE WORKER Primary Care Provider [phone] Reason for Visit Reason Comments Med Refill Encounter Details Date Type Department Care Team Description 03/06/2019 Refill Robert Guerrero Tiffanie Mcgovern, Hyperlipidemia, [address] LANDSCAPE MANAGER, MUD JACK NOZZLE WORKER unspecified ERNESTO Ramirez [address] 100 [facility] hyperlipidemia type [phone] [place], [place] [address] Social History Tobacco Use [...] 82 Fasting? Yes No future labs pending ING MACHINE OPERATOR SINGLE NEEDLE documented in this encounter Plan of Treatment Not on filedocumented as of this encounter Visit Diagnoses Diagnosis Hyperlipidemia, unspecified hyperlipidem ia type documented in this encounter Care Teams Salvage Supervisor Relationship Specialty Start Date End Date Tiffanie Mcgovern APRN, MUD JACK NOZZLE WORKER PCP - General 10/14/17 07/14/19 100 [facility] [place] [address] documented as of this encounter
--- OUTSIDE RECORDS SUMMARY | 2022-02-12 17:36 | XMS_ITS | Encounter Summary ---
:1970 Author Organization [facility] Address [address] [place] [address] Care Team Providers Name Role Phone Tiffanie Mcgovern APRN, ASSET ACCOUNTANT Primary Care Provider [phone] Reason for Visit Reason Comments Shortness of Breath Dizziness Encounter Details Date Type Department Care Team Description 09/02/2018 Office Visit Roopa Caldwell History of coronary vasospas m (Primary Dx); [address] MD Raheel Shortness of breath Rogelio Guerrero [place] [address] 2593 [facility] [address] [place] [address] Social History Tobacco Use Types Packs/Day Years [...] troponins kary they sent her down to 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 She has been [...] then called to her pharmacy she will greens picker on 80 mg immediate release tablet and she will take that tonight before she goes to bed. She will then greens picker a new tablet for 240 mg [...] breath documented in this encounter Care Teams Food Counter Attendant Relationship Specialty Start Date End Date Tiffanie Mcgovern, DIRECTOR MARKET INTELLIGENCE, ASSET ACCOUNTANT PCP - General 10/14/17 07/14/19 100 [place] [address] documented as of this encounter
--- OUTSIDE RECORDS SUMMARY | 2022-02-12 17:36 | XMS_ITS | Encounter Summary ---
:1970 Author Organization [facility] Address [address] [place] [address] Care Team Providers Name Role Phone Tiffanie Mcgovern ACCOUNT STRATEGIST, FLIGHT TEST SHOP MECHANIC Primary Care Provider [phone] Reason for Visit Reason Onset Date Comments TC FOLLOW UP 07/09/2018 Encounter Details Date Type Department Care Team Description 07/09/2018 Telephone Tiffanie Acuna, FOLLOW UP [address] ACCOUNT STRATEGIST, FLIGHT TEST SHOP MECHANIC ERNESTO Ramirez [address] 100 [facility] [phone] [place], [place] [address] Social History Tobacco Use [...] 07/09/2018 4:24 PM CDT STREP Patient #: [id number] Pharmacy: Family Small medication of choice if positive- The provider will call patient if positive and will prescribed if positive. documented in this encounter Plan of Treatment Not on filedocumented as of this encounter Visit Diagnoses Not on filedocumented in this encounter Care Teams Transportation Dispatcher Relationship Specialty Start Date End Date Tiffanie Mcgovern, ACCOUNT STRATEGIST, FLIGHT TEST SHOP MECHANIC PCP - General 10/14/17 07/14/19 100 [facility] [place] [address] documented as of this encounter
--- OUTSIDE RECORDS SUMMARY | 2022-02-12 17:36 | XMS_ITS | Encounter Summary ---
:1970 Author Organization [facility] Address [address] [place] [address] Care Team Providers Name Role Phone Tiffanie Mcgovern APRN, CNP Primary Care Provider [phone] Encounter Details Date Type Department Care Team Description 07/12/2018 Orders Only Robert Guerrero Tiffanie Mcgovern, Influenza-like [address] KYLE [place] illness (Primary Dx) ERNESTO Ramirez 100 [facility] [address] [place] [address] Social History Tobacco Use Types Packs/Day Years [...] Primary documented in this encounter Care Teams Filleter Relationship Specialty Start Date End Date Tiffanie Mcgovern APRN, CNP PCP - General 10/14/17 07/14/19 [address] [place] [address] documented as of this encounter
--- OUTSIDE RECORDS SUMMARY | 2022-02-12 17:36 | XMS_ITS | Encounter Summary ---
:1970 Author Organization [facility] Address [address] [place] [address] Care Team Providers Name Role Phone Tiffanie Mcgovern FELT HANGER, PRODUCTION TRAINER Primary Care Provider [phone] Reason for Visit Reason Comments Med Refill Encounter Details Date Type Department Care Team Description 12/04/2018 Refill Robert Guerrero Tiffanie Mcgovern, Hyperlipidemia, [address] FELT HANGER, PRODUCTION TRAINER unspecified ERNESTO Ramirez [address] 100 [facility] hyperlipidemia type [phone] [place], [place] [address] Social History Tobacco Use [...] type documented in this encounter Care Teams Vessel Scrapper Helper Relationship Specialty Start Date End Date Tiffanie Mcgovern, FELT HANGER, PRODUCTION TRAINER PCP - General 10/14/17 07/14/19 100 [facility] [place] [address] documented as of this encounter
--- OUTSIDE RECORDS SUMMARY | 2022-02-12 17:36 | XMS_ITS | Encounter Summary ---
:1970 Author Organization [facility] Address [address] [place] [address] Care Team Providers Name Role Phone McgovernTiffanie APRN, WEDGER Primary Care Provider [phone] Encounter Details Date Type Department Care Team Description 06/09/2019 Telemedicine [place] GUSTAVO (generalized [address] MD Raheel anxiety disorder) [place], [place] [address] (Primary Dx) [phone] [place] [address] Social History Tobacco Use Types Packs/Day Years [...] conducted by telephone without visualization by either alliance party due to the national emergency created by the pandemic. Therefore no physical exam was possible and we are unable to perform vital signs or other ioycf-lu-[id number] testing or assessments. The patient understands the [...] a complete and full evaluation at [facility] they did not notice any hardening of [...] day to 240 mg/day she saw her client project coordinator they agreed with pro cess and she [...] disorder documented in this encounter Care Teams General Practitioner Relationship Specialty Start Date End Date Tiffanie Mcgovern APRN, WEDGER PCP - General 10/14/17 07/14/19 100 [facility] [place] [address] documented as of this encounter
--- OUTSIDE RECORDS SUMMARY | 2022-02-12 17:36 | XMS_ITS | Encounter Summary ---
:1970 Author Organization [facility] Address [address] [place] [address] Care Team Providers Name Role Phone Tiffanie Mcgovern APRN, CNP Primary Care Provider [phone] Reason for Visit Reason Comments Joint Pain Encounter Details Date Type Department Care Team Description 06/15/2019 Telemedicine FriesTiffanie Perera Arthralgia, [address] ALVERTO Perdomo CNP unspecified joint ERNESTO Savage [address] (Primary Dx) [address] [place] [address] Social History Tobacco Use Types Packs/Day Years [...] who is called on the phone from [facility] to discuss Chief Complaint Patient presents with [...] time.. She has reached out to her filler machine operator who did a Holter monitor they have not return the Holter monitor and therefore the results are unavailable. The filler machine operator is going to be referring her to [...] ([facility] preferred) ROCÍO Rheumatoid factor Thyroid Function Berkley Cyclic citrullinated peptide antibody Vitamin D, Total [...] patient will continue her work-up with the filler machine operator regarding palpitations during this coronavirus pandemic they [...] Comprehensive metabolic panel (06/16/2019 9:03 AM CDT) [facility] Time Signature Total Protein 7.1 6.3 - 8.2 06/16/2019 [facility] g/dL 12:[address] [facility] Albumin, Serum 4.0 3.5 - 5.0 06/16/2019 [facility] g/dL 12:[address] [facility] Total Bilirubin 0.9 0.1 - 1.0 06/16/2019 [facility] mg/dL 12:[address] [facility] AST 60 (H) 8 - 43 U/L 06/16/2019 [facility] 12:[address] [facility] Alkaline 42 38 - 128 06/16/2019 [facility] Phosphatase U/L 12:[address] [facility] ALT (SGPT) 56 (H) 0 - 34 U/L 06/16/2019 [facility] 12:[address] [facility] Sodium 134 (L) 135 - 145 06/16/2019 [facility] mEq/L 12:[address] [facility] Potassium 4.0 3.5 - 5.1 06/16/2019 [facility] mEq/L 12:[address] [facility] Chloride 98 98 - 107 06/16/2019 [facility] mEq/L 12:[address] [facility] CO2 26 22 - 29 06/16/2019 [facility] mmol/L 12:[address] [facility] BUN 12 5 - 25 06/16/2019 [facility] mg/dL 12:[address] [facility] Creatinine 0.5 0.4 - 1.2 06/16/2019 [facility] mg/dL 12:[address] [facility] Glucose 156 (H) 70 - 100 06/16/2019 [facility] mg/dL 12:[address] [facility] Calcium, Total,S 9.8 8.4 - 10.2 06/16/2019 [facility] mg/dL 12:[address] [facility] Fasting? No 06/16/2019 [facility] 9:[address] [facility] Specimen Anatomical Collection Method Collection Time Receive d Time (Source) Location / / Volume Laterality Blood 06/16/2019 9:03 AM 0 CDT 11:53 AM CDT Tiffanie Mcgovern APRN, MIRROR DEPARTMENT SUPERVISOR LAB BLOOD ORDERABLES Performing Organization Address City/State/ZIP Code Phon e Number [facility] [address] [place] [address] Vitamin D, Total (06/16/2019 9:03 AM CDT) P athologist Signature Vitamin D, 56.3 ng/mL 06/16/2019 [facility] Total 12:38 PM T CENTER LABORATORY [...] Address City/State/ZIP Code Phon e Number [facility] [address] [place] [address] Cyclic citrullinated peptide antibody (06/16/2019 9:03 AM CDT) P athologist Signature Cyclic <15.6 <20.0 06/17/2019 [facility] Citrullin (Negative) 7:02 PM CDT LABORATORIES Peptide Ab U Comment: Test Performed by: [facility] [address] [place], [place] [address] Gas Welding Machine Operator: Butch Guerrero M.D. Ph. D.; CLIA# [id number] Specimen Anatomical Collection Method Collection Time Receive d Time (Source) Location / / Volume Laterality Blood (Blood, 06/16/2019 9:03 AM 06/16/19 2:16 Venous) CDT PM CDT Tiffanie Mcgovern APRN, CNP LAB BLOOD ORDERABLES Performing Organization Address City/[facility]/ZIP Code Phon e Number [facility] see result attachment for specific address (ABNORMAL) Thyroid Function Berkley (06/16/2019 9:03 AM CDT) Patholo gist Method Time Signature TSH, Sensitive <0.01 (L) 0.46 - 06/17/2019 [facility] 4.68 mIU/L 2:16 PM CDT [facility] Comment: The results from [...] CNP LAB BLOOD ORDERABLES Performing Organization Address City/[facility]/ZIP Code Phon e Number [facility] [address] [place] [address] Rheumatoid factor (06/16/2019 9:03 AM CDT) athologist Signature Rheumatoid 6 1 - 11 06/16/2019 [facility] Factor IU/mL 12:48 PM CDT CENTER LABORATORY Specimen Anatomical Collection Method Collection Time Receive d Time (Source) Location / / Volume Laterality Blood (Blood, 06/16/2019 9:03 AM 06/16/19 20 Venous) CDT 12:01 PM CDT Tiffanie Mcgovern APRN, CNP LAB BLOOD ORDERABLES Performing Organization Address [facility] Phon e Number [facility] [address] [place] [phone] ROCÍO (06/16/2019 9:03 AM CDT) athologist [facility] ROCÍO 0.7 <=1.0 06/17/2019 [facility] (Negative) 4:17 PM CDT LABORATORIES U Comment: ADDITIONAL INFORMATIO N Method: Enzyme-linked immunoassay using HEp-2 nuclear extract supplemented with purified antig ens. Test Performed by: [facility] [address] [place] [address] 15 Gas Welding Machine Operator: Butch Guerrero M.D. Ph. D.; CLIA# [id number] Specimen Anatomical Collection Method Collection Time Receive d Time (Source) Location / / Volume Laterality Blood (Blood, 06/16/2019 9:03 AM 06/16/19 20 2:16 Venous) CDT PM CDT Tiffanie Mcgovern APRN, CNP LAB BLOOD ORDERABLES Performing Organization Address [facility] Phon e Number [facility] see result attachment for specific address C-reactive protein ([facility] preferred) (06/16/2019 9:03 AM CDT) athologist Signature CRP 2.0 0.0 - 4.9 06/16/2019 [facility] mg/L 12:28 PM CDT CENTER LAB[facility]ATORY Specimen Anatomical Collection Method Collection Time Receive d Time (Source) Location / / Volume Laterality Blood 06/16/2019 9:03 AM 0 CDT 11:53 AM CDT Tiffanie Mcgovern APRN, CNP LAB BLOOD ORDERABLES Performing Organization Address City/[facility]/ZIP Code Phon e Number [facility] [address] [place] [address] ESR-Sed rate (06/16/2019 9:03 AM CDT) P athologist Signature Sed Rate 23 0 - 29 06/16/2019 [facility] mm/hr 1:44 PM CDT CENTER LABORATORY Specimen Anatomical Collection Method Collection Time Receive d Time (Source) Location / / Volume Laterality Blood 06/16/2019 9:03 AM 0 CDT 11:53 AM CDT Tiffanie Mcgovern APRN, CNP LAB BLOOD ORDERABLES Performing Organization Address City/[facility]/ZIP Code Phon e Number [facility] [address] [place] [phone] (ABNORMAL) CBC Branch Off w/Diff (06/16/2019 9:03 AM CDT) Patholo gist Method Time Signature WBC 4.8 3.5 - 10.5 06/16/2019 [facility] JONES K/uL 11:00 AM [...] CDT [place] MCHC 34.8 32.0 - 06/16/2019 [facility] JONES 36.0 g/dL 11:00 AM CDT [place] RDW 11.7 (L) 11.9 - 06/16/2019 [facility] JONES 15.5 % 11:00 AM CDT [place] Lymphocytes % 22.3 18.0 - 06/16/2019 [facility] JONES 45.0 % 11:00 AM CDT [place] Mid-size Cells 12.2 (H) 3.3 - 10.1 06/16/2019 [facility] JONES % 11:00 AM CDT [place] Granulocytes/Leslie 65.5 45.8 - 06/16/2019 [facility] JONES trophils 73.7 % 11:00 AM CDT [place] Lymphocytes 1.1 0.9 - 2.9 06/16/2019 [facility] JONES Absolute K/uL 11:00 AM CDT [place] MIDS Absolute 0.6 0.2 - 0.8 06/16/2019 [facility] JONES K/uL 11:00 AM CDT [place] Granulocytes/Leslie 3.1 2.1 - 8.7 06/16/2019 [facility] JONES trophils K/uL 11:00 AM CDT [place] Absolute Specimen Anatomical Collection Method Collection Time Receive d Time (Source) Location / / Volume Laterality Blood 06/16/2019 9:03 AM 0 9:12 CDT AM CDT Tiffanie Mcgovern APRN, CNP LAB BLOOD ORDERABLES Performing Organization Address City/State/ZIP Code Phon e Number [facility] ROBERT GUERRERO [address] Robert Guerrero [place] [address] documented in this encounter Visit Diagnoses Diagnosis Arthralgia, unspecified joint - Primary documented in this encounter Care Teams Master Chef Relationship Specialty Start Date End Date Tiffanie Mcgovern APRN, MIRROR DEPARTMENT SUPERVISOR PCP - General 10/14/17 07/14/19 100 [facility] [place] [address] documented as of this encounter
--- OUTSIDE RECORDS SUMMARY | 2022-02-12 17:36 | XMS_ITS | Encounter Summary ---
:1970 Author Organization [facility] Address [address] [place] [address] Care Team Providers Name Role Phone Tiffanie Mcgovern APRN, CNP Primary Care Provider [phone] Reason for Visit Reason Comments Follow-up Still not feeling well Encounter Details Date Type Department Care Team Description 07/17/2018 Office Visit Tiffanie Acuna Sinusitis, unspecified chron icity, unspecified location (Primary Dx); [address] M, KYLE DEL TORO Shakiness; ERNESTO Ramirez [address] Other fatigue; [address] [place] [address] Muscle cramps; [phone] Diaphore sis; Motion sickness , initial encounter [...] diff, BMP, Lyme's, Liver, HGB A1c, and [place]. [place] negative. Lab Results Component Value Date WBC [...] andunderstands this plan of care. Tiffanie Mcgovern, CAPABILITY LEAD, BILLING CONTROL CLERK documented in this encounter Plan of Treatment Not on filedocumented as of this encounter Results Liver panel (07/17/2018 11:55 AM CDT) P athologist Signature Total Protein 7.8 6.3 - 8.2 07/17/2018 [place] g/dL 7:15 PM [facility] Albumin, Serum 4.4 3.5 - 5.0 07/17/2018 [place] g/dL 7:15 PM [facility] Total Bilirubin <0.7 0.1 - 1.0 07/17/2018 [place] mg/dL 7:15 PM [facility] Bilirubin, <0.1 0.0 - 0.3 07/17/2018 [place] Direct mg/dL 7:15 PM [facility] AST 26 8 - 43 U/L 07/17/2018 [place] 7:15 PM [facility] Alkaline 59 38 - 128 07/17/2018 [place] Phosphatase U/L 7:15 PM [facility] ALT (SGPT) 28 0 - 34 U/L 07/17/2018 [place] 7:15 PM [facility] Specimen Anatomical Collection Method Collection Time Receive d Time (Source) Location / / Volume Laterality Blood (Blood, 07/17/2018 11:55 07/17/2018 6:44 Venous) AM CDT PM CDT Tiffanie Mcgovern APRN, BILLING CONTROL CLERK LAB BLOOD ORDERABLES Performing Organization Address City/State/ZIP Code Phon e Number [facility] [address] [place] [address] (ABNORMAL) Basic metabolic panel (07/17/2018 11:55 AM CDT) Analysis Performed At Patho logist Time Signature Sodium 137 135 - 145 07/17/2018 [place] mEq/L 7:15 PM [facility] Potassium 4.2 3.5 - 5.1 07/17/2018 [place] mEq/L 7:15 PM [facility] Chloride 102 98 - 107 07/17/2018 [place] mEq/L 7:15 PM [facility] CO2 25 22 - 29 07/17/2018 [place] mmol/L 7:15 PM [facility] Creatinine 0.7 0.4 - 1.2 07/17/2018 [place] mg/dL 7:15 PM [facility] BUN 13 5 - 25 07/17/2018 [place] mg/dL 7:15 PM [facility] Glucose 109 (H) 70 - 100 07/17/2018 [place] mg/dL 7:15 PM [facility] Calcium, 9.9 8.4 - 10.2 07/17/2018 [place] Total,S mg/dL 7:15 PM [facility] Fasting? No 07/17/2018 [facility] 12:02 PM CDT [place] Specimen Anatomical Collection Method Collection Time Receive d Time (Source) Location / / Volume Laterality Blood (Blood, 07/17/2018 11:55 07/17/2018 6:44 Venous) AM CDT PM CDT Tiffanie Mcgovern APRN, CNP LAB BLOOD ORDERABLES Performing Organization Address City/[facility] Phon e Number [facility] [address] [place] [address] [facility] [address] [place] [address] LABORATORY Lyme Disease Serology (07/17/2018 11:55 AM CDT) [facility] Method Time Signature Lyme Disease Negative Negative 07/20/2018 [facility] Serology 3:45 PM CDT LABORATORIES Comment: No evidence of antibodies to B. burgdorf serenity detected. False negative results may occur in rece ntly infected patients (<=2 weeks) due to low or undet ectable antibody levels to B. burgdorferi. If recent expo sure is suspected, a second sample should be collected and tested in 2-4 weeks. Test Performed by: [facility] [address] [place], [place] [address] Specimen Anatomical Collection Method Collection Time Receive d Time (Source) Location / / Volume Laterality Blood (Blood, 07/17/2018 11:55 07/17/2018 9:07 Venous) AM CDT PM CDT Tiffanie Mcgovern APRN, CNP LAB BLOOD ORDERABLES Performing Organization Address City/[facility]/ZIP Code Phon e Number [facility] see result attachment for specific address (ABNORMAL) CBC Branch Off w/Diff (07/17/2018 11:55 AM CDT) [facility] gist Method Time Signature WBC 9.9 [...] CNP LAB BLOOD ORDERABLES Performing Organization Address City/[facility]/ZIP Code Phon e Number [facility] ROBERT GUERRERO [address] [place] [address] Mononucleosis screen (07/17/2018 11:55 AM CDT) athologist Signature Monospot NEGATIVE Negative 07/17/2018 [facility] 12:04 PM CDT [place] Specimen Anatomical Collection Method Collection Time Receive d Time (Source) Location / / Volume Laterality Blood (Blood, 07/17/2018 11:55 07/17/2018 Venous) AM CDT 12:02 PM CDT Tiffanie Mcgovern APRN, CNP LAB BLOOD ORDERABLES Performing Organization Address City/[facility] Phon e Number [facility] ROBERT GUERRERO [address] [place] [address] documented in this encounter Visit Diagnoses Diagnosis Sinusitis, unspecified chronicity, unspe cified location - Primary Shakiness Abnormal involuntary movements Other fatigue Muscle cramps Diaphoresis Generalized hyperhidrosis Motion sickness, initial encounter documented in this encounter Care Teams Activities Manager Relationship Specialty Start Date End Date Tiffanie Mcgovern APRN, KYLE PCP - General 10/14/17 07/14/19 100 [facility] [place] [address] documented as of this encounter
--- OUTSIDE RECORDS SUMMARY | 2022-02-12 17:36 | XMS_ITS | Encounter Summary ---
:1970 Author Organization [facility] Address [address] [place] [address] Care Team Providers Name Role Phone Tiffanie Mcgovern APRN, CNP Primary Care Provider [phone] Encounter Details Date Type Department Care Team Description 10/27/2018 Telephone [place] Tiffanie Mcgovern, [address] K[place] T[place]O ERNESTO Ramirez [address] [address] [facility] [phone] [place], [place] [address] Social History Tobacco Use [...] on filedocumented in this encounter Care Teams Public Finance Specialist Relationship Specialty Start Date End Date Tiffanie Mcgovern, SUPERVISOR ROLLER SHOP, CONTROL ROOM SUPERVISOR PCP - General 10/14/17 07/14/19 100 [facility] [place] [address] documented as of this encounter
--- OUTSIDE RECORDS SUMMARY | 2022-02-12 17:36 | XMS_ITS | Encounter Summary ---
:1970 Author Organization [facility] Address [address] [place] [address] Care Team Providers Name Role Phone Tiffanie Mcgovern BALL MAKER, STAPLE FIBER WASHER Primary Care Provider [phone] Reason for Visit Reason Onset Date Comments status update 05/19/2019 Encounter Details Date Type Department Care Team Description 05/19/2019 Telephone WorthamTiffanie Perera, status update [address] BALL MAKER, STAPLE FIBER WASHER [place] ERNESTO [address] [address] [facility] [address] [phone] [place], [place] [address] Social History Tobacco Use [...] 3:23 PM CDT Patient informed, clint will garbage pick up worker note. Telephone Encounter - Roopa Lopez MD - 05/19/2019 3:04 PM CDT Work note written. Laura can garbage pick up worker or ask her where to fax this [...] is doing. Pt can be reached at [phone]. documented in this encounter Plan of Treatment Not on filedocumented as of this encounter Visit Diagnoses Diagnosis Bronchitis - Primary Bronchitis, not specified as acute or ch ronic documented in this encounter Care Teams Production Supervisor Trainee Relationship Specialty Start Date End Date Tiffanie Mcgovern, BALL MAKER, STAPLE FIBER WASHER PCP - General 10/14/17 07/14/19 100 [facility] [place] [address] documented as of this encounter
--- OUTSIDE RECORDS SUMMARY | 2022-02-12 17:36 | XMS_ITS | Encounter Summary ---
:1970 Author Organization [facility] Address [address] [place] [address] Care Team Providers Name Role Phone Tiffanie Mcgovern NOXIOUS WEEDS AND PEST INSPECTOR, ROCK LOADER Primary Care Provider [phone] Reason for Visit Reason Comments Pre-op Exam Pre-op physiocal, DOS: 12/18, Left Hip Encounter Details Date Type Department Care Team Description 12/14/2018 Consult Tiffanie Acuna, Preoperative examination (Pr imary Dx); [address] NOXIOUS WEEDS AND PEST INSPECTOR, KYLE Tear of left acetabular labrum, subseque nt encounter; ERNESTO Ramirez [address] Hyperlipidemia, unspecified hyperlipidem ia type [address] [place] [address] Social History Tobacco Use Types Packs/Day Years [...] under the care of Dr. Cortes, at [facility] in [place], on December 18, 2018. The preoperative risk [...] under the care of Dr. Cortes, at [facility] in [place], on December 18, 2018. The patient will hold all [id number] medications at this time and take the [...] under the care of Dr. Cortes, at [facility], in [place], on December 18, 2018. The patient reports she has been experiencing bilateral hip pain for the past year, withoutan injury, has been under the care of [facility], where MRIs were completed, with a labral tear of both hips, however, the right hip responded to therapy and she is no longer having any discomfort, and the left hip did not. She reports her left hip pain is worsening, a feeling of [id number].The patient reports she typically does not take [...] (gastroesophageal reflux disease) ??? Headache History ??? 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 No stents required. No [...] file Gets together: Not on file Attends mormon service: Not on file Active member of [...] dysuria, urinary frequency, urgency, nocturia and/or hematuria. RV DETAILER: Hysterectomy at the age of 33. ENDOCRINOLOGY: [...] Add-On Test Request (12/14/2018 12:09 PM CDT) [facility] gist Method Time Signature Add-on Testing SEE BELOW 12/14/2018 [place] 12:14 PM T [facility] Comment: K+ was added to testing. Specimen Anatomical Collection Method Collection Time Receive d Time (Source) Location / / Volume Laterality 12/14/2018 12:09 12/14/2018 PM CDT 12:09 PM CDT Tiffanie Mcgovern APRN, CNP LAB BLOOD ORDERABLES Performing Organization Address City/State/ZIP Code Phon e Number [facility] [address] [place] [address] X-ray Chest 2 Views (12/14/2018 10:16 AM [...] effusion. IMPRESSION: Unremarkable exam. Tiffanie M Mcgovern NOXIOUS WEEDS AND PEST INSPECTOR, ROCK LOADER IMG XR PROCEDURES CBC Branch Off w/Diff (12/14/2018 10:14 AM CDT) P athologist Signature WBC 6.2 3.5 - 10.5 12/14/2018 [facility] K/uL 10:32 AM CDT [place] RBC 4.36 3.90 - 12/14/2018 [facility] 5.00 M/uL 10:32 AM CDT [place] Hemoglobin 13.8 12.0 - 12/14/2018 [facility] 15.5 g/dL 10:32 AM CDT [place] Hematocrit 39.8 35.0 - 12/14/2018 [facility] 44.0 % 10:32 AM CDT [place] Platelets 329 150 - 450 12/14/2018 [facility] K/uL 10:32 AM CDT [place] MCV 91.3 81.6 - 12/14/2018 [facility] 98.3 fL 10:32 AM CDT [place] MCH 31.7 26.0 - 12/14/2018 [facility] 32.0 pg 10:32 AM CDT [place] MCHC 34.7 32.0 - 12/14/2018 [facility] 36.0 g/dL 10:32 AM CDT [place] RDW 12.6 11.9 - 12/14/2018 [facility] 15.5 % 10:32 AM CDT [place] Lymphocytes % 26.2 18.0 - 12/14/2018 [facility] 45.0 % 10:32 AM CDT [place] Mid-size Cells 9.2 3.3 - 10.1 12/14/2018 [facility] % 10:32 AM CDT [place] Granulocytes/Leslie 64.6 45.8 - 12/14/2018 [facility] trophils 73.7 % 10:32 AM CDT [place] Lymphocytes 1.6 0.9 - 2.9 12/14/2018 [facility] Absolute K/uL 10:32 AM CDT [place] MIDS Absolute 0.6 0.2 - 0.8 12/14/2018 [facility] K/uL 10:32 AM CDT [place] Granulocytes/Elslie 4.0 2.1 - 8.7 12/14/2018 [facility] trophils K/uL 10:32 AM CDT [place] Absolute Specimen Anatomical Collection Method Collection Time Receive d Time (Source) Location / / Volume Laterality Blood 12/14/2018 10:14 12/14/2018 AM CDT 10:14 AM CDT Tiffanie Mcgovern APRN, ROCK LOADER LAB BLOOD ORDERABLES Performing Organization Address City/State/ZIP Code Phon e Number [facility] [place]ERT GUERRERO [address] [place] [address] (ABNORMAL) Lipid panel (12/14/2018 10:14 AM CDT) athologist Signature Cholesterol 171 0 - 199 12/15/2018 [facility] mg/dL 1:10 PM CDT CENTER [facility]ORY Comment: Recommended by National Cholesterol Education Program (ATP III) -------- Cholesterol Ranges -------- <200 ? Desirable 200-239 ? Borderline high >=240 ? High Triglycerides 150 (A) 0 - 149 mg/dL 12/15/2018 1:10 PM T [facility] Comment: -------- TRIG Ranges -------- <150 ?Normal 150-199 ? Borderline high 200-499 ? High >=500 ? Very high HDL 59 40 - 60 mg/dL 12/15/2018 1:[address] [facility] Comment: -------- HDL Ranges -------- <40 ?Low 40-59 ?Normal >=60 ? Optimal LDL Calculated 82 0 - 99 mg/dL 12/15/2018 1:10 PM T [facility] Comment: -------- LDL Ranges -------- <100 ? Optimal 100-129 ?Near optimal/above op timal 130-159 ?Borderline high 160-189 ?High >=190 ?Very high Fasting? Yes 12/14/2018 10:27 AM CDT [facility] Specimen Anatomical Collection Method Collection Time Receive d Time (Source) Location / / Volume Laterality Blood 12/14/2018 10:14 12/15/2018 AM CDT 12:35 PM CDT Tiffanie Mcgovern APRN, CNP LAB BLOOD ORDERABLES Performing Organization Address City/State/ZIP Code Phon e Number [facility] [address] [place] [address] ECG 12 lead (12/14/2018 12:00 AM CDT) Narrative This result has an attachment that is no t available. Tiffanie Mcgovern APRN, CNP ECG ORDERABLES documented in this encounter Visit Diagnoses Diagnosis Preoperative examination - Primary Unspecified pre-operative examination Tear of left acetabular labrum, subseque nt encounter Hyperlipidemia, unspecified hyperlipidem ia type documented in this encounter Care Teams Wood Finisher Apprentice Relationship Specialty Start Date End Date Tiffanie Mcgovern APRN, ROCK LOADER PCP - General 10/14/17 07/14/[address] [place] [address] documented as of this encounter
--- OUTSIDE RECORDS SUMMARY | 2022-02-12 17:36 | XMS_ITS | Encounter Summary ---
:1970 Author Organization [facility] Address [address] [place] [address] Care Team Providers Name Role Phone Tiffanie Mcgovern APRN, KYLE Primary Care Provider [phone] Reason for Visit Reason Comments Flu Symptoms Encounter Details Date Type Department Care Team Description 05/17/2019 Office Visit Roopa Caldwell Cough (Primary Dx); [address] MD Raheel Body aches; ERNESTO Ramirez [address] SOB (shortness of breath); [phone] [place]; ERNESTO Ramirez Fever, unsp ecified fever cause [id number] Social History Tobacco Use Types Packs/Day Years [...] CDT) athologist Signature Rapid NEGATIVE Negative 05/17/2019 [facility] Influenza A 12:03 PM CDT [place] Rapid NEGATIVE Negative 05/17/2019 [facility] Influenza B 12:03 PM CDT [place] Comment: A negative test is presumptive and does not exclude influenza virus infection. Specimen Anatomical Collection Method Collection Time Receive d Time (Source) Location / / Volume Laterality Swab 05/17/2019 11:35 05/17/2019 (Nasopharynx) AM CDT 11:46 AM CDT Roopa Lopez MD LAB BODY FLUIDS AND STOOLS O RDERABLES Performing Organization Address City/State/ZIP Code Phon e Number [facility] ROBERT GUERRERO [address] [place] [address] documented in this encounter Visit Diagnoses Diagnosis Cough - Primary Body aches Generalized pain SOB (shortness of breath) Shortness of breath Chills Chills (without fever) Fever, unspecified fever cause documented in this encounter Care Teams Correctional Food Service Supervisor Relationship Specialty Start Date End Date Tiffanie Mcgovern, ASSET PROTECTION AGENT, SECURITY AMBASSADOR PCP - General 10/14/17 07/14/19 100 [facility] [place] [address] documented as of this encounter
--- OUTSIDE RECORDS SUMMARY | 2022-02-12 17:36 | XMS_ITS | Encounter Summary ---
:1970 Author Organization [facility] Address [address] [place] [address] Care Team Providers Name Role Phone Tiffanie Mcgovern APRN, KYLE Primary Care Provider [phone] Encounter Details Date Type Department Care Team [...] filedocumented in this encounter Care Teams Power System Engineer Relationship Specialty Start Date End Date Tiffanie Mcgovern APRN, RECEIVABLE EXECUTIVE PCP - General 10/14/17 07/14/19 100 [facility] [place] [address] documented as of this encounter
--- OUTSIDE RECORDS SUMMARY | 2022-02-12 17:36 | XMS_ITS | Encounter Summary ---
:1970 Author Organization [facility] Address [address] [place] [address] Care Team Providers Name Role Phone Tiffanie Mcgovern DENTAL CHAIR ASSEMBLER, MANAGER OPERATING Primary Care Provider [phone] Reason for Visit Reason Onset Date Comments Pre-op H&P 12/16/2018 Encounter Details Date Type Department Care Team Description 12/16/2018 Telephone Tiffanie Acuna, Pre-op H&P [address] DENTAL CHAIR ASSEMBLER, MANAGER OPERATING ERNESTO Ramirez [address] [address] [facility] [phone] [place], [place] [address] Social History Tobacco Use [...] 4:16 PM CDT Pre-op paperwork faxed to [facility] at [phone] as requested. Telephone Encounter - Chelsea Romero [...] - 12/16/2018 2:44 PM CDT Jackie with [facility] called requesting Pt's Pre-op physical and any EKG and lab work be faxed to [phone] as Pt's surgery is this Friday12/18/18. Any questions please call Jackie at [phone], documented in this encounter Plan of Treatment Not on filedocumented as of this encounter Visit Diagnoses Not on filedocumented in this encounter Care Teams Credit Clerk Relationship Specialty Start Date End Date Tiffanie Mcgovern APRN, KYLE PCP - General 10/14/17 07/14/19 [address] [place] [address] documented as of this encounter
--- OUTSIDE RECORDS SUMMARY | 2022-02-12 17:36 | XMS_ITS | Encounter Summary ---
:1970 Author Organization [facility] Address [address] [place] [address] Care Team Providers Name Role Phone Tiffanie Mcgovern APRN, KYLE Primary Care Provider [phone] Encounter Details Date Type Department Care Team Description 12/16/2018 Orders Only [place], [address] [place], KYLE ERNESTO Ramirez [address] 100 [facility] [phone] [place], [place] [address] Social History Tobacco Use [...] on filedocumented in this encounter Care Teams Parts Room Associate Relationship Specialty Start Date End Date Tiffanie Mcgovern APRN, DIRECTOR OF FINANCIAL AID PCP - General 10/14/17 07/14/19 100 [place] [address] documented as of this encounter
--- OUTSIDE RECORDS SUMMARY | 2022-02-12 17:36 | XMS_ITS | Encounter Summary ---
:1970 Author Organization [facility] Address [address] [place] [address] Care Team Providers Name Role Phone Tiffanie Mcgovern APRN, CNP Primary Care Provider [phone] Encounter Details Date Type Department Care Team Description 02/11/2019 Orders Only [place]elio Guerrero Tiffanie Mcgovern, Sinusitis, [address] KYLE [place] T[place]O unspecified [place] ERNESTO 100 [facility] chronicity, [address] [place] [address] unspecified location [phone] (Primary Dx) Social History Tobacco Use Types [...] Primary documented in this encounter Care Teams Sample Processor Relationship Specialty Start Date End Date Tiffanie Mcgovern APRN, KYLE PCP - General 10/14/17 07/14/19 100 [place] [address] documented as of this encounter
--- OUTSIDE RECORDS SUMMARY | 2022-02-12 17:36 | XMS_ITS | Encounter Summary ---
:1970 Author Organization [facility] Address [address] [place] [address] Care Team Providers Name Role Phone Tiffanie Mcgovern BUILDINGS AND GROUNDS COORDINATOR, NURSE CHARGE RN Primary Care Provider [phone] Encounter Details Date Type Department Care Team Description 07/21/2018 Orders Only KeyesTiffanie Perera, Screening for [address] BUILDINGS AND GROUNDS COORDINATOR, NURSE CHARGE RN diabetes mellitus ERNESTO Ramirez [address] (Primary Dx) [address] [place] [address] Social History Tobacco Use Types Packs/Day Years [...] Hemoglobin A1C 5.3 4.0 - 5.6 07/23/2018 [facility] % A1C 1:44 PM CDT CENTER [...] CDT 12:17 PM CDT Tiffanie Mcgovern APRN, NURSE CHARGE RN LAB BLOOD ORDERABLES Performing Organization Address City/State/ZIP Code Phon e Number [facility] [address] [place] [address] documented in this encounter Visit Diagnoses Diagnosis Screening for diabetes mellitus - Primar y documented in this encounter Care Teams Paint Coating Machine Operator Relationship Specialty Start Date End Date Tiffanie Mcgovern APRN, NURSE CHARGE RN PCP - General 10/14/17 07/14/19 100 [place] [address] documented as of this encounter
--- OUTSIDE RECORDS SUMMARY | 2022-02-12 17:36 | XMS_ITS | Encounter Summary ---
:1970 Author Organization [facility] Address [address] [place] [address] Care Team Providers Name Role Phone Tiffanie Mcgovern APRN, KYLE Primary Care Provider [phone] Reason for Visit Reason Comments Sinusitis Encounter Details Date Type Department Care Team Description 01/29/2019 Office Visit Tiffanie Acuna Acute sinusitis, [address] M, HOOKMAN, ORTHOPEDICS PEDIATRIC PHYSICIAN recurrence not ERNESTO Ramirez [address] specified, [address] [place] [address] unspecified location [phone] (Primary Dx) Social History Tobacco Use Types [...] Comments Blood Pressure 114/74 01/29/2019 9:34 AM POULTRY INSEMINATOR Pulse 76 01/29/2019 9:34 AM POULTRY INSEMINATOR Temperature 36.2 ??C (97.1 ??F) 01/29/2019 9:34 AM POULTRY INSEMINATOR Respiratory Rate 18 01/29/2019 9:34 AM POULTRY INSEMINATOR Oxygen Saturation 95% 01/29/2019 9:34 AM POULTRY INSEMINATOR Inhaled Oxygen Concentration - - Weight 88.4 kg (194 lb 14.2 oz) 01/29/2019 9:34 AM POULTRY INSEMINATOR Height 175 cm (5' 8.9) 01/29/2019 9:34 AM POULTRY INSEMINATOR Body Mass Index 28.87 01/29/2019 9:34 AM POULTRY INSEMINATOR documented in this encounter Patient Instructions Patient InstructionsChpatel Mcgovern APRN, CNP - 01/29/2019 9:40 AM POULTRY INSEMINATOR Take antibiotic as directed TRY INSEMINATOR documented in this encounter Progress Notes Tiffanie [...] plan of care. Tiffanie Mcgovern APRN, KYLE TRY INSEMINATOR documented in this encounter Plan of Treatment Not on filedocumented as of this encounter Visit Diagnoses Diagnosis Acute sinusitis, recurrence not specifie d, unspecified location - Primary documented in this encounter Care Teams Manager Therapy Relationship Specialty Start Date End Date Tiffanie Mcgovern APRN, ORTHOPEDICS PEDIATRIC PHYSICIAN PCP - General 10/14/17 07/14/19 100 [place] [address] documented as of this encounter
--- OUTSIDE RECORDS SUMMARY | 2022-02-12 17:36 | XMS_ITS | Encounter Summary ---
:1970 Author Organization [facility] Address [address] [place] [address] Care Team Providers Name Role Phone Tiffanie Mcgovern LABORATORY MILLER, WIRE WEAVER HELPER Primary Care Provider [phone] Reason for Visit Reason Onset Date Comments [place] 05/18/2019 Encounter Details Date Type Department Care Team Description 05/18/2019 Telephone Tiffanie Acuna, [place] [address] LABORATORY MILLER, KYLE DossMears ERNEST[place] [address] 100 [facility] [phone] [place], [place] [address] Social History Tobacco Use [...] documented as of this encounter Care Teams Dial Screw Assembler Relationship Specialty Start Date End Date Tiffanie Mcgovern APRN, WIRE WEAVER HELPER PCP - General 10/14/17 07/14/19 100 [facility] [place] [address] documented as of this encounter
--- OUTSIDE RECORDS SUMMARY | 2022-02-12 17:36 | XMS_ITS | Encounter Summary ---
:[address] [facility] Address [address] [place] [address] Care Team Providers Name Role Phone Tiffanie Mcgovern APRN, TRAIN RESERVATION CLERK Primary Care Provider Reason for Visit Reason Onset Date Comments COVID 06/14/2019 Encounter Details Date Type Department Care Team Description 06/14/2019 Telephone SE Immunization Irena Lopez RN COVID [address] [place] [address] [place] [address] Social History Tobacco Use Types Packs/Day Years [...] RNA detection, v (06/14/2019 8:55 AM CDT) [facility] Method Time Signature SARS Covid Nasopharyngeal 06/14/2019 [facility] specimen 10:56 PM LABORATORIES source CDT SARS CoV2 Undetected Undetected 06/14/2019 [facility] RNA 10:56 PM LABORATORIES CDT Comment: SARS-CoV-2 RNA is not detected. ADDITIONAL INFORMATIO N Testing was performed using the deanna SA RS-CoV-2 assay ([employer] on the [employer] System. Fact sheets for this Emergency Use Autho rization (EUA) assay can be found at the following link s: For Healthcare Providers: https://www.fda.gov/media/343488/downloa d For Patients: https://www.fda.gov/media/ 222836/download Test Performed by: [facility] [address] [place] [address] Mental Health Unit Lead Psychologist: Butch Guerrero M.D. Ph. D.; CLIA# [id number] Specimen Anatomical Collection Method Collection Time Receive d Time (Source) Location / / Volume Laterality Swab 06/14/2019 8:55 AM 0 (Nasopharyngeal) CDT 11:02 AM CD T Bryon Adler MD LAB MOLECULAR DIAGNOSTICS OR DERABLES Performing Organization Address City/State/ZIP Code Phon e Number [facility] eflow [facility] eflow see result attachment for specific address documented in this encounter Visit Diagnoses Diagnosis Encounter for special screening examinat ion for infectious or parasitic disease - Primary documented in this encounter Care Teams Party Plan Demonstrator Relationship Specialty Start Date End Date Tiffanie Mcgovern, HAND SCRAPER, TRAIN RESERVATION CLERK PCP - General 10/14/17 07/14/[address] [facility] [place] [address] documented as of this encounter
--- OUTSIDE RECORDS SUMMARY | 2022-02-12 17:36 | XMS_ITS | Encounter Summary ---
:1970 Author Organization [facility] Address [address] [place] [address] Care Team Providers Name Role Phone Tiffanie Mcgovern APRN, KYLE Primary Care Provider [phone] Reason for Visit Reason Comments Med Refill Encounter Details Date Type Department Care Team Description 09/02/2018 Refill [place]ola[place]iffanie Perera, Hyperlipidemia, [address] KYLE [place] unspecified ERNESTO Ramirez 550 [address] 100 [facility] hyperlipidemia type [phone] [place], [place] [address] (Primary Dx) Social History [...] Out 02/18/2020 02/18/2020 02/18/2020 4:4 1 PM AUTO EMISSIONS TECHNICIAN COVID-19 Rule Out 02/27/2021 02/27/2021 02/27/2021 10: 40 AM AUTO EMISSIONS TECHNICIAN COVID-19 Confirmed 02/27/2021 02/27/2021 05/28/2021 8: 17 PM CDT documented as of this encounter Care Teams Ve Teacher Relationship Specialty Start Date End Date Tiffanie Mcgovern APRN, RISK PROFESSIONAL PCP - General Family Medicine 02/27/[address] [place] [address] [place] [address] documented as of this encounter
--- OUTSIDE RECORDS SUMMARY | 2022-02-12 17:36 | XMS_ITS | Encounter Summary ---
:[address] [facility] Address [address] [place] [address] Care Team Providers Name Role Phone Tiffanie Mcgovern APRN, CNP Primary Care Provider [phone] Reason for Visit Reason Comments Sleep Aid Encounter Details Date Type Department Care Team Description 04/02/2019 Office Visit Tiffanie Acuna Anxiety (Primary Dx); [address] M, KYLE [place] Stress; [place] Ramirez [address] Insomnia, unspecified type; [address] [place] [address] Right hip pain [phone] Social History Tobacco Use Types Packs/Day Years [...] Comments Blood Pressure 108/58 04/02/2019 9:47 AM NUCLEAR WEAPONS SPECIALIST Pulse 72 04/02/2019 9:47 AM NUCLEAR WEAPONS SPECIALIST Temperature 36.4 ??C (97.5 ??F) 04/02/2019 9:47 AM NUCLEAR WEAPONS SPECIALIST Respiratory Rate 18 04/02/2019 9:47 AM NUCLEAR WEAPONS SPECIALIST Oxygen Saturation 96% 04/02/2019 9:47 AM NUCLEAR WEAPONS SPECIALIST Inhaled Oxygen Concentration - - Weight 89.4 kg (197 lb) 04/02/2019 9:47 AM NUCLEAR WEAPONS SPECIALIST Height 175 cm (5' 8.9) 04/02/2019 9:47 AM NUCLEAR WEAPONS SPECIALIST Body Mass Index 29.18 04/02/2019 9:47 AM NUCLEAR WEAPONS SPECIALIST documented in this encounter Patient Instructions Patient InstructionsChpatel Mcgovern APRN, CNP - 04/02/2019 9:40 AM NUCLEAR WEAPONS SPECIALIST Zoloft 25 mg daily Tramadol for severe pain Trazodone 50 mg as needed Ativan 0.5 mg daily as needed for severe anxiety EAR WEAPONS SPECIALIST documented in this encounter Progress Notes Tiffanie [...] time. The patient's stepmother is in a fdc with a declining memory, likely early dementia, which has not been diagnosed. 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 She reports her attention to detail [...] plan of care. Tiffanie Mcgovern APRN, KYLE EAR WEAPONS SPECIALIST documented in this encounter Plan of Treatment Not on filedocumented as of this encounter Visit Diagnoses Diagnosis Anxiety - Primary Anxiety state, unspecified Stress Other psychological or physical stress, not elsewhere classified Insomnia, unspecified type Right hip pain Pain in joint, pelvic region and thigh documented in this encounter Care Teams Supervisor Particleboard Relationship Specialty Start Date End Date Tiffanie Mcgovern APRN, HOTEL VALET ATTENDANT PCP - General 10/14/17 07/14/19 [address] [place] [address] documented as of this encounter
--- OUTSIDE RECORDS SUMMARY | 2022-02-12 17:36 | XMS_ITS | Encounter Summary ---
:1970 Author Organization [facility] Address [address] [place] [address] Care Team Providers Name Role Phone Tiffanie Mcgovern APRN, KYLE Primary Care Provider [phone] Encounter Details Date Type Department Care Team Description 07/17/2018 Lab Robert Guerrero Other fatigue; [address] [place]; [place] [address] Muscle cramps; [phone] Diaphoresis; Influenza-like illness Social History Tobacco Use [...] AM CDT) athologist Signature GFR >60 07/17/2018 [facility] 7:15 PM CDT CENTER LABORATORY >60 07/17/2018 [facility] GFR 7:15 PM CDT CENTER LABORATORY Comment: [...] [facility]/ZIP Code Phon e Number [facility] [address] [place] [address] Mononucleosis screen (07/17/2018 11:55 AM CDT) athologist Signature Monospot NEGATIVE Negative 07/17/2018 [facility] 12:04 PM CDT [place] Specimen Anatomical Collection Method Collection Time Receive d Time (Source) Location / / Volume Laterality Blood (Blood, 07/17/2018 11:55 07/17/2018 Venous) AM CDT 12:02 PM CDT Tiffanie Mcgovern APRN, CNP LAB BLOOD ORDERABLES Performing Organization Address City/[facility]/ZIP Code Phon e Number [facility] [place] [address] [place] [address] (ABNORMAL) CBC Branch Off w/Diff (07/17/2018 11:55 AM CDT) Patholo gist Method Time Signature WBC 9.9 3.5 - 10.5 07/17/2018 [facility] K/uL 12:02 PM CDT [place] RBC 4.33 3.90 - 07/17/2018 [facility] 5.00 M/uL 12:02 PM CDT [place] Hemoglobin 14.1 12.0 - 07/17/2018 [facility] 15.5 g/dL 12:02 PM CDT [place] Hematocrit 39.7 35.0 - 07/17/2018 [facility] 44.0 % 12:02 PM CDT [place] Platelets 302 150 - 450 07/17/2018 [facility] K/uL 12:02 PM CDT [place] MCV 91.7 81.6 - 07/17/2018 [facility] 98.3 fL 12:02 PM CDT [place] MCH 32.6 (H) 26.0 - 07/17/2018 [facility] 32.0 pg 12:02 PM CDT [place] MCHC 35.5 32.0 - 07/17/2018 [facility] 36.0 g/dL 12:02 PM CDT [place] RDW 12.7 11.9 - 07/17/2018 [facility] 15.5 % 12:02 PM CDT [place] Lymphocytes % 19.1 18.0 - 07/17/2018 [facility] 45.0 % 12:02 PM CDT [place] Mid-size Cells 8.9 3.3 - 10.1 07/17/2018 [facility] % 12:02 PM CDT [place] Granulocytes/Leslie 72.0 45.8 - 07/17/2018 [facility] trophils 73.7 % 12:02 PM CDT [place] Lymphocytes 1.9 0.9 - 2.9 07/17/2018 [facility] Absolute K/uL 12:02 PM CDT [place] MIDS Absolute 0.9 (H) 0.2 - 0.8 07/17/2018 [facility] K/uL 12:02 PM CDT [place] Granulocytes/Leslie 7.1 2.1 - 8.7 07/17/2018 [facility] trophils K/uL 12:02 PM CDT [place] Absolute Specimen Anatomical Collection Method Collection Time Receive d Time (Source) Location / / Volume Laterality Blood (Blood, 07/17/2018 11:55 07/17/2018 Venous) AM CDT 12:02 PM CDT Tiffanie Mcgovern APRN, CNP LAB BLOOD ORDERABLES Performing Organization Address City/[facility] Phon e Number [facility] ROBERT GUERRERO [address] [place] [address] Lyme Disease Serology (07/17/2018 11:55 AM CDT) [facility] gist Method Time Signature Lyme Disease Negative Negative 07/20/[address] [facility] Serology 3:45 PM CDT LABORATORIES Comment: No evidence of antibodies to B. burgdorf serenity detected. False negative results may occur in rece ntly infected patients (<=2 weeks) due to low or undet ectable antibody levels to B. burgdorferi. If recent expo sure is suspected, a second sample should be collected and tested in 2-4 weeks. Test Performed by: [facility] [address] [place], [place] [address] Specimen Anatomical Collection Method Collection Time Receive d Time (Source) Location / / Volume Laterality Blood (Blood, 07/17/2018 11:55 07/17/2018 9:07 Venous) AM CDT PM CDT Tiffanie Mcgovern APRN, CNP LAB BLOOD ORDERABLES Performing Organization Address [facility]/ZIP Code Phon e Number [facility] LABORATORIES see result attachment for specific address (ABNORMAL) Basic metabolic panel (07/17/2018 11:55 AM CDT) Analysis Performed At Path logist Time Signature Sodium 137 135 - 145 07/17/2018 [place] mEq/L 7:15 PM [facility] CENTER LABORATORY Potassium 4.2 3.5 - 5.1 07/17/2018 [place] mEq/L 7:15 PM [facility] Chloride 102 98 - 107 07/17/2018 [place] mEq/L 7:15 PM [facility] CO2 25 22 - 29 07/17/2018 [place] mmol/L 7:15 PM [facility] Creatinine 0.7 0.4 - 1.2 07/17/2018 [place] mg/dL 7:15 PM [facility] LABORATORY BUN 13 5 - 25 07/17/2018 [place] mg/dL 7:15 PM [facility] LABORATORY Glucose 109 (H) 70 - 100 07/17/2018 [facility] mg/dL 7:15 PM CDT [facility] LAB[facility]ORY Calcium, 9.9 8.4 - 10.2 07/17/2018 [place] Total,S mg/dL 7:15 PM [facility] LABORATORY Fasting? No 07/17/2018 [facility] 12:02 PM [facility] Specimen Anatomical Collection Method Collection Time Receive d Time (Source) Location / / Volume Laterality Blood (Blood, 07/17/2018 11:55 07/17/2018 6:44 Venous) AM CDT PM CDT Tiffanie Mcgovern APRN, CNP LAB BLOOD ORDERABLES Performing Organization Address City/[facility]/ZIP Code Phon e Number [facility] [address] [place] [address] [facility] [address] [place] [id number] LABORATORY Liver panel (07/17/2018 11:55 AM CDT) athologist Signature Total Protein 7.8 6.3 - 8.2 07/17/2018 [place] g/dL 7:15 PM [facility] LABORATORY Albumin, Serum 4.4 3.5 - 5.0 07/17/2018 [place] g/dL 7:15 PM [facility] LABORATORY Total Bilirubin <0.7 0.1 - 1.0 07/17/2018 [place] mg/dL 7:15 PM [facility] LAB[facility]ORY Bilirubin, <0.1 0.0 - 0.3 07/17/2018 [facility] Direct mg/dL 7:15 PM [facility] LABORATORY AST 26 8 - 43 U/L 07/17/2018 [place] 7:15 PM [facility] LABOR[facility]ORY Alkaline 59 38 - 128 07/17/2018 [place] Phosphatase U/L 7:15 PM [facility] LABOR[facility]ORY ALT (SGPT) 28 0 - 34 U/L 07/17/2018 [place] 7:15 PM [facility] LAB[facility] Specimen Anatomical Collection Method Collection Time Receive d Time (Source) Location / / Volume Laterality Blood (Blood, 07/17/2018 11:55 07/17/2018 6:44 Venous) AM CDT PM CDT Tiffanie Mcgovern APRN, CNP LAB BLOOD ORDERABLES Performing Organization Address City/[facility]/ZIP Code Phon e Number [facility] [address] [place] [address] documented in this encounter Visit Diagnoses Diagnosis Other fatigue Shakiness Abnormal involuntary movements Muscle cramps Diaphoresis Generalized hyperhidrosis Influenza-like illness documented in this encounter Care Teams Director Of Broadcast Relationship Specialty Start Date End Date Tiffanie Mcgovern APRN, INSURANCE SALES ASSISTANT PCP - General 10/14/17 07/14/19 100 [place] [address] documented as of this encounter
--- OUTSIDE RECORDS SUMMARY | 2022-02-12 17:36 | XMS_ITS | Encounter Summary ---
:1970 Author Organization [facility] Address [address] [place] [address] Care Team Providers Name Role Phone Tiffanie Mcgovern APRN, KYLE Primary Care Provider [phone] Encounter Details Date Type Department Care Team Description 05/17/2019 Lab Robert Guerrero SOB (shortness of breath); [address] Cough; Robert Guerrero ERNEST[place] [address] Chills; [phone] Fever, unspecif ied fever cause; Body aches [...] Branch Off w/Diff (05/17/2019 11:58 AM CDT) [facility] gist Method Time Signature WBC 5.1 3.5 - 10.5 05/17/2019 [facility] K/uL 12:05 PM CDT [place] RBC 4.19 3.90 - 05/17/2019 [facility] 5.00 M/uL 12:05 PM CDT [place] Hemoglobin 13.1 12.0 - 05/17/2019 [facility] 15.5 g/dL 12:05 PM CDT [place] Hematocrit 36.9 35.0 - 05/17/2019 [facility] 44.0 % 12:05 PM CDT [place] Platelets 276 150 - 450 05/17/2019 [facility] K/uL 12:05 PM CDT [place] MCV 88.1 81.6 - 05/17/2019 [facility] 98.3 fL 12:05 PM CDT [place] MCH 31.3 26.0 - 05/17/2019 [facility] 32.0 pg 12:05 PM CDT [place] MCHC [...] CDT [place] Granulocytes/Leslie 63.0 45.8 - 05/17/2019 [facility] trophils 73.7 % 12:05 PM CDT [place] Lymphocytes 1.3 0.9 - 2.9 05/17/2019 [facility] Absolute K/uL 12:05 PM CDT [place] MIDS Absolute 0.6 0.2 - 0.8 05/17/2019 [facility] K/uL 12:05 PM CDT [place] Granulocytes/Leslie 3.2 2.1 - 8.7 05/17/2019 [facility] trophils K/uL 12:05 PM CDT [place] Absolute Specimen Anatomical Collection Method Collection Time Receive d Time (Source) Location / / Volume Laterality 05/17/2019 11:58 05/17/2019 AM CDT 12:02 PM CDT Roopa Lopez MD LAB BLOOD ORDERABLES Performing Organization Address City/[facility]/ZIP Code Phon e Number [facility] [place]ERT GUERRERO [address] [place] [id number] Rapid influenza A/B antigens (05/17/2019 11:35 AM CDT) athologist Signature Rapid NEGATIVE Negative 05/17/2019 [facility] Influenza A 12:03 PM CDT [place] Rapid NEGATIVE Negative 05/17/2019 [facility] Influenza B 12:03 PM CDT [place] Comment: A negative test is presumptive and does not exclude influenza virus infection. Specimen Anatomical Collection Method Collection Time Receive d Time (Source) Location / / Volume Laterality Swab 05/17/2019 11:35 05/17/2019 (Nasopharynx) AM CDT 11:46 AM CDT Roopa Lopez MD LAB BODY FLUIDS AND STOOLS O RDERABLES Performing Organization Address City/[facility]/ZIP Code Phon e Number [facility] [place]ERT GUERRERO [address] [place] [id number] documented in this encounter Visit Diagnoses Diagnosis SOB (shortness of breath) Shortness of breath Cough Chills Chills (without fever) Fever, unspecified fever cause Body aches Generalized pain documented in this encounter Care Teams Electric Motor Tester Assembler Relationship Specialty Start Date End Date Tiffanie Mcgovern, COMMISSIONED POLICE OFFICER, SLOT MANAGER PCP - General 10/14/17 07/14/19 100 [facility] [place] [address] documented as of this encounter
--- OUTSIDE RECORDS SUMMARY | 2022-02-12 17:36 | XMS_ITS | Encounter Summary ---
:1970 Author Organization [facility] Address [address] [place] [address] Care Team Providers Name Role Phone Tiffanie [...] on filedocumented in this encounter Care Teams Coding Director Relationship Specialty Start Date End Date Tiffanie Mcgovern APRN, WOODS LABORER PCP - General 10/14/17 07/14/19 100 [facility] [place] [address] documented as of this encounter
--- OUTSIDE RECORDS SUMMARY | 2022-02-12 17:36 | XMS_ITS | Encounter Summary ---
:1970 Author Organization [facility] Address [address] [place] [address] Care Team Providers Name Role Phone Tiffanie Mcgovern APRN, KYLE Primary Care Provider [phone] Encounter Details Date Type Department Care Team Description 07/09/2018 Lab [place] Screening for diabetes melli tus; [address] Pharyngitis, unspecified bailey ology; [place]NEST[place] Ramirez [address] Influenza-like illness [phone] Social History Tobacco Use Types Packs/Day Years [...] A culture, throat (07/09/2018 4:00 PM CDT) [facility] [employer] Method Time Signature Throat Strep Negative for 07/11/2018 [place] A Culture Group A 6:37 AM CDT [facility] Strep at 48 LABORATORY hrs. Specimen Anatomical Collection Method Collection Time Receive d Time (Source) Location / / Volume Laterality 07/09/2018 4:00 PM 9 CDT 12:21 PM CDT Tiffanie Mcgovern APRN, CNP LAB MICROBIOLOGY - GENERA L ORDERABLES Performing Organization Address City/State/ZIP Code Phon e Number [facility]ORY [address] [place] [id number] Rapid strep screen (07/09/2018 4:00 PM CDT) P athologist Signature Strep A Ag, NEGATIVE Negative 07/09/2018 [facility] [place] [place] [employer] Rapid 4:13 PM CDT [place] Specimen Anatomical Collection Method Collection Time Receive d Time (Source) Location / / Volume Laterality Swab (Throat 07/09/2018 4:00 PM 9 4:04 Swab) CDT PM CDT Tiffanie Mcgovern APRN, CNP LAB BODY FLUIDS AND STOOL S ORDERABLES Performing Organization Address City/[facility]/ZIP Code Phon e Number [facility] [employer] [address] [place] [address] Lyme Disease Serology (07/09/2018 3:56 PM CDT) [facility] [employer] Method Time Signature Lyme Disease Negative Negative 07/11/2018 [facility] Serology 12:29 PM CDT LABORATORIES Comment: No evidence of antibodies to B. burgdorf serenity detected. False negative results may occur in rece ntly infected patients (<=2 weeks) due to low or undet ectable antibody levels to B. burgdorferi. If recent expo sure is suspected, a second sample should be collected and tested in 2-4 weeks. Test Performed by: [facility] [address] [place] [address] 90 Specimen Anatomical Collection Method Collection Time Receive d Time (Source) Location / / Volume Laterality Blood (Blood, 07/09/2018 3:56 PM 07/11/19 19 1:20 Venous) CDT PM CDT Tiffanie Mcgovern APRN, CNP LAB BLOOD ORDERABLES Performing Organization Address City/State/ZIP Code Phon e Number [facility] LABORATORIES [facility] see result attachment for specific address (ABNORMAL) Manual Differential (after verif of auto) (07/09/2018 3:56 PM CDT) [facility] gist Method Time Signature Manual PERFORMED [...] LABORATORY Basophils 0.0 0.0 - 0.1 07/10/2018 [place] Absolute K/uL 1:27 PM [facility] LABORATORY Slide Review PERFORMED 07/10/2018 [place] 1:30 PM [facility] LABORATORY RBC Morphology NORMAL 07/10/2018 [place] 1:30 PM [facility] LABORATORY PLT Morphology ADEQUATE 07/10/2018 [place] 1:30 PM [facility] LABORATORY Total Counted 100 07/10/2018 [place] 1:30 PM [facility] LABORATORY Specimen Anatomical Collection Method Collection Time Receive d Time (Source) Location / / Volume Laterality 07/09/2018 3:56 PM 9 CDT 12:04 PM CDT Tiffanie Mcgovern APRN, CNP LAB BLOOD ORDERABLES Performing Organization Address City/[facility]/ZIP Code Phon e Number [facility] [address] [place] [address] Fasting ? (07/09/2018 3:56 PM CDT) P athologist Signature Fasting? No 07/09/2018 4:07 [facility] PM CDT [place] Specimen Anatomical Collection Method Collection Time Receive d Time (Source) Location / / Volume Laterality 07/09/2018 3:56 PM 9 4:05 CDT PM CDT Tiffanie Mcgovern APRN, CNP LAB BLOOD ORDERABLES Performing Organization Address City/[facility]/ZIP Code Phon e Number [facility] [place] [address] [place] [address] HemoCue glucose (07/09/2018 3:56 PM CDT) P athologist Signature Glucose, Bld 98 70 - 100 07/09/2018 [facility] mg/dL 4:07 PM CDT [place] Comment: . Specimen Anatomical Collection Method Collection Time Receive d Time (Source) Location / / Volume Laterality 07/09/2018 3:56 PM 9 4:05 CDT PM CDT Tiffanie Mcgovern APRN, CNP LAB BLOOD ORDERABLES Performing Organization Address City/[facility]/ZIP Code Phon e Number [facility] [place] [address] [place] [address] (ABNORMAL) CBC Branch Off w/Diff (07/09/2018 3:56 PM CDT) [facility] Method Time Signature WBC 12.0 (H) 3.5 - 10.5 07/09/2018 [facility] [place]ES K/uL 4:07 PM CDT [place] RBC 4.13 3.90 - 07/09/2018 [facility] [place] JONES 5.00 M/uL 4:07 PM CDT [place] Hemoglobin 13.6 12.0 - 07/09/2018 [facility] 15.5 g/dL 4:07 PM CDT [place] Hematocrit 37.9 35.0 - 07/09/2018 [facility] [place] JONES 44.0 % 4:07 PM CDT [place] Platelets 320 150 - 450 07/09/2018 [facility] [place]ES K/uL 4:07 PM CDT [place] MCV 91.8 81.6 - 07/09/2018 [facility] [place] JONES 98.3 fL 4:07 PM CDT [place] MCH 32.9 (H) 26.0 - 07/09/2018 [facility] [place] JONES 32.0 pg 4:07 PM CDT [place] MCHC 35.9 32.0 - 07/09/2018 [facility] [place] [place] JONES 36.0 g/dL 4:07 PM CDT [place] RDW 12.3 11.9 - 07/09/2018 [facility] [place] JONES 15.5 % 4:07 PM CDT [place] Lymphocytes % 12.6 (L) 18.0 - 07/09/2018 [facility] [place] JONES 45.0 % 4:07 PM CDT [place] Mid-size Cells 7.4 3.3 - 10.1 07/09/2018 [facility] [place] JONES % 4:07 PM CDT [place] Granulocytes/Leslie 80.0 (H) 45.8 - 07/09/2018 [facility] [place] J[place]ES trophils 73.7 % 4:07 PM CDT [place] Lymphocytes 1.5 0.9 - 2.9 07/09/2018 [facility] [place]ES Absolute K/uL 4:07 PM CDT [place] MIDS Absolute 0.9 (H) 0.2 - 0.8 07/09/2018 [facility] [place] [place]ES K/uL 4:07 PM CDT [place] Granulocytes/Leslie 9.6 (H) 2.1 - 8.7 07/09/2018 [facility] [place]ES trophils K/uL 4:07 PM CDT [place] Absolute Specimen Anatomical Collection Method Collection Time Receive d Time (Source) Location / / Volume Laterality Blood (Blood, 07/09/2018 3:56 PM 07/10/19 19 4:05 Venous) CDT PM CDT Tiffanie Mcgovern APRN, CNP LAB BLOOD ORDERABLES Performing Organization Address City/State/ZIP Code Phon e Number [facility] [place] ROBERT GUERRERO [address] [place] [address] documented in this encounter Visit Diagnoses Diagnosis Screening for diabetes mellitus Pharyngitis, unspecified etiology Influenza-like illness documented in this encounter Care Teams Facility Operations Manager Relationship Specialty Start Date End Date Tiffanie Mcgovern APRN, FACULTY RESEARCH ASSISTANT PCP - General 10/14/17 07/14/[address] [place] [address] [place] [address] documented as of this encounter
--- OUTSIDE RECORDS SUMMARY | 2022-02-12 17:36 | XMS_ITS | Encounter Summary ---
:1970 Author Organization [facility] Address [address] [place] [address] Care Team Providers Name Role Phone Tiffanie Mcgovern APRN, KYLE Primary Care Provider Encounter Details Date Type [...] Signature Potassium 4.0 3.5 - 5.1 12/15/2018 [facility] mEq/L 1:10 PM CDT CENTER LABORATORY Specimen Anatomical Collection Method Collection Time Receive d Time (Source) Location / / Volume Laterality 12/14/2018 10:14 12/15/2018 AM CDT 12:35 PM CDT Tiffanie Mcgovern APRN, CNP LAB BLOOD ORDERABLES Performing Organization Address City/[facility]/ZIP Code Phon e Number [facility] [address] [place] [address] HemoCue glucose (12/14/2018 10:14 AM CDT) athologist Signature Glucose, Bld 87 70 - 100 12/14/2018 [facility] JONES mg/dL 10:32 AM CDT [place] Comment: . Specimen Anatomical Collection Method Collection Time Receive d Time (Source) Location / / Volume Laterality 12/14/2018 10:14 12/14/2018 AM CDT 10:14 AM CDT Tiffanie Mcgovern APRN, CNP LAB BLOOD ORDERABLES Performing Organization Address City/[facility]/ZIP Code Phon e Number [facility] [place] [address] [place] [address] (ABNORMAL) Lipid panel (12/14/2018 10:14 AM CDT) athologist Signature Cholesterol 171 0 - 199 12/15/2018 [facility] mg/dL 1:10 PM CDT CENTER LABORATORY Comment: Recommended by National Cholesterol Education Program (ATP III) -------- Cholesterol Ranges -------- <200 ? Desirable 200-239 ? Borderline high >=240 ? High Triglycerides 150 (A) 0 - 149 mg/dL 12/15/2018 1:10 PM CDT [facility] Comment: -------- TRIG Ranges -------- <150 ?Normal 150-199 ? Borderline high 200-499 ? High >=500 ? Very high HDL 59 40 - 60 mg/dL 12/15/2018 1:10 PM CDT [facility] LABOR[facility] Comment: -------- HDL Ranges -------- <40 ?Low 40-59 ?Normal >=60 ? Optimal LDL Calculated 82 0 - 99 mg/dL 12/15/2018 1:10 PM CDT [facility] Comment: -------- LDL Ranges -------- <100 ? Optimal 100-129 ?Near optimal/above op timal 130-159 ?Borderline high 160-189 ?High >=190 ?Very high Fasting? Yes 12/14/2018 10:27 AM CDT [facility] LAB[facility] Specimen Anatomical Collection Method Collection Time Receive d Time (Source) Location / / Volume Laterality Blood 12/14/2018 10:14 12/15/2018 AM CDT 12:35 PM CDT Tiffanie Mcgovern APRN, EVP GLOBAL PRODUCT LEADERSHIP LAB BLOOD ORDERABLES Performing Organization Address City/State/ZIP Code Phon e Number [facility] [address] [place] [address] CBC Branch Off w/Diff (12/14/2018 10:14 AM CDT) P athologist Signature WBC 6.2 3.5 - 10.5 12/14/2018 [facility] ROBERT K/uL 10:32 AM CDT [place] RBC 4.36 3.90 - 12/14/2018 [facility] JONES 5.00 M/uL 10:32 AM CDT [place] Hemoglobin 13.8 12.0 - 12/14/2018 [facility] 15.5 g/dL 10:32 AM CDT [place] Hematocrit 39.8 35.0 - 12/14/2018 [facility] [place]ON[facility] 44.0 % 10:32 AM CDT [place] Platelets 329 150 - 450 12/14/2018 [facility] K/uL 10:32 AM CDT [place] MCV 91.3 81.6 - 12/14/2018 [facility] [place] 98.3 fL 10:32 AM CDT [place] MCH 31.7 26.0 - 12/14/2018 [facility] 32.0 pg 10:32 AM CDT [place] MCHC 34.7 32.0 - 12/14/2018 [facility] [place] 36.0 g/dL 10:32 AM CDT [place] RDW 12.6 11.9 - 12/14/2018 [facility] 15.5 % 10:32 AM CDT [place] Lymphocytes % 26.2 18.0 - 12/14/2018 [facility] 45.0 % 10:32 AM CDT [place] Mid-size Cells 9.2 3.3 - 10.1 12/14/2018 [facility] % 10:32 AM CDT [place] Granulocytes/Leslie 64.6 45.8 - 12/14/2018 [facility] [place] trophils 73.7 % 10:32 AM CDT [place] Lymphocytes 1.6 0.9 - 2.9 12/14/2018 [facility] Absolute K/uL 10:32 AM CDT [place] MIDS Absolute 0.6 0.2 - 0.8 12/14/2018 [facility] K/uL 10:32 AM CDT [place] Granulocytes/Leslie 4.0 2.1 - 8.7 12/14/2018 [facility] trophils K/uL 10:32 AM CDT [place] Absolute Specimen Anatomical Collection Method Collection Time Receive d Time (Source) Location / / Volume Laterality Blood 12/14/2018 10:14 12/14/2018 AM CDT 10:14 AM CDT Tiffanie Mcgovern APRN, EVP [employer] LEADERSHIP LAB BLOOD ORDERABLES Performing Organization Address City/State/ZIP Code Phon e Number [facility] [place]ERT GU[place] [address] [place] [address] Fasting ? (12/14/2018 10:00 AM CDT) P athologist Signature Fasting? Yes 12/14/2018 [facility] 10:27 AM CDT [place] Specimen Anatomical Collection Method Collection Time Receive d Time (Source) Location / / Volume Laterality 12/14/2018 10:00 12/14/2018 AM CDT 10:00 AM CDT Tiffanie Mcgovern APRN, CNP LAB BLOOD ORDERABLES Performing Organization Address City/State/ZIP Code Phon e Number [facility] [place] GUERRERO [address] [place] [address] documented in this encounter Visit Diagnoses Diagnosis Preoperative examination Unspecified pre-operative examination Hyperlipidemia, unspecified hyperlipidem ia type documented in this encounter Care Teams Mechanical Developer Prover Relationship Specialty Start Date End Date Tiffanie Mcgovern APRN, EVP [employer] LEADERSHIP PCP - General 10/14/17 07/14/19 100 [facility] [place] [address] documented as of this encounter
--- OUTSIDE RECORDS SUMMARY | 2022-02-12 17:36 | XMS_ITS | Encounter Summary ---
:[address] [facility] Address [address] [place] [address] Care Team Providers Name Role Phone Tiffanie Mgcovern APRN, KYLE Primary Care Provider [phone] Encounter Details Date Type Department Care Team Description 07/22/2018 Lab [place] Screening for diabetes melli tus; [address] [facility] [place] [address] Social History Tobacco Use Types [...] Hemoglobin A1C 5.3 4.0 - 5.6 07/23/2018 [facility] % A1C 1:44 PM CDT [...] CDT 12:17 PM CDT Tiffanie Mcgovern APRN, GROUP CARE WORKER LAB BLOOD ORDERABLES Performing Organization Address City/State/ZIP Code Phon e Number [facility] [address] [place] [address] documented in this encounter Visit Diagnoses Diagnosis Screening for diabetes mellitus Shakiness Abnormal involuntary movements documented in this encounter Care Teams Air Value Tester Relationship Specialty Start Date End Date Tiffanie Mcgovern APRN, GROUP CARE WORKER PCP - General 10/14/17 07/14/19 [address] [place] [address] documented as of this encounter
--- OUTSIDE RECORDS SUMMARY | 2022-02-12 17:37 | XMS_ITS | Encounter Summary ---
:[address] [facility] Address [address] [place] [address] Care Team Providers Name Role Phone Tiffanie Mcgovern APRN, CNP Primary Care Provider [phone] Reason for Visit Reason Comments Muscle Pain Sore Throat Encounter Details Date Type Department Care Team Description 07/09/2018 Office Visit [place] Pharyngitis, unspecified bailey ology (Primary Dx); [address] M, ALVERTO, KYLE Screening for diabetes mellitus; [place] Ramirez [address] Influenza-like illness [address] [place] [address] Social History Tobacco Use Types Packs/Day Years [...] this plan of care. Tiffanie Mcgovern APRN, VISUAL ASSOCIATE documented in this encounter Plan of Treatment Not on filedocumented as of this encounter Results Rapid strep screen (07/09/2018 4:00 PM CDT) P athologist Signature Strep A Ag, NEGATIVE Negative 07/09/2018 [facility] [place] Rapid 4:13 PM CDT [place] Specimen Anatomical Collection Method Collection Time Receive d Time (Source) Location / / Volume Laterality Swab (Throat 07/09/2018 4:00 PM 9 4:04 Swab) CDT PM CDT Tiffanie Mcgovern APRN, CNP LAB BODY FLUIDS AND STOOL S ORDERABLES Performing Organization Address [facility]/ZIP Code Phon e Number [facility] [place] [address] [place] [address] Lyme Disease Serology (07/09/2018 3:56 PM CDT) [facility] Method Time Signature Lyme Disease Negative Negative 07/11/2018 [facility] Serology 12:29 PM CDT LABORATORIES Comment: No evidence of antibodies to B. burgdorf serenity detected. False negative results may occur in rece ntly infected patients (<=2 weeks) due to low or undet ectable antibody levels to B. burgdorferi. If recent expo sure is suspected, a second sample should be collected and tested in 2-4 weeks. Test Performed by: [facility] [address] [place] [address] Specimen Anatomical Collection Method Collection Time Receive d Time (Source) Location / / Volume Laterality Blood (Blood, 07/09/2018 3:56 PM 07/11/19 19 1:20 Venous) CDT PM CDT Tiffanie Mcgovern APRN, CNP LAB BLOOD ORDERABLES Performing Organization Address [facility]/ZIP Code Phon e Number [facility] see result attachment for specific address (ABNORMAL) CBC Branch Off w/Diff (07/09/2018 3:56 PM CDT) [facility] Method Time Signature WBC 12.0 (H) 3.5 - 10.5 07/09/2018 [facility] [place] K/uL 4:07 PM CDT [place] RBC 4.13 3.90 - 07/09/2018 [facility] [place] 5.00 M/uL 4:07 PM CDT [place] Hemoglobin 13.6 12.0 - 07/09/2018 [facility] [place] 15.5 g/dL 4:07 PM CDT [place] Hematocrit 37.9 35.0 - 07/09/2018 [facility] [place] 44.0 % 4:07 PM CDT [place] Platelets 320 150 - 450 07/09/2018 [facility] [place] K/uL 4:07 PM CDT [place] MCV 91.8 81.6 - 07/09/2018 [facility] [place] 98.3 fL 4:07 PM CDT [place] MCH 32.9 (H) 26.0 - 07/09/2018 [facility] [place] 32.0 pg 4:07 PM CDT [place] MCHC 35.9 32.0 - 07/09/2018 [facility] [place] 36.0 g/dL 4:07 PM CDT [place] RDW 12.3 11.9 - 07/09/2018 [facility] [place] 15.5 % 4:07 PM CDT [place] Lymphocytes % 12.6 (L) 18.0 - 07/09/2018 [facility] [place] 45.0 % 4:07 PM CDT [place] Mid-size Cells 7.4 3.3 - 10.1 07/09/2018 [facility] [place] % 4:07 PM CDT [place] Granulocytes/Leslie 80.0 (H) 45.8 - 07/09/2018 [facility] [place] trophils 73.7 % 4:07 PM CDT [place] Lymphocytes 1.5 0.9 - 2.9 07/09/2018 [facility] [place] Absolute K/uL 4:07 PM CDT [place] MIDS Absolute 0.9 (H) 0.2 - 0.8 07/09/2018 [facility] [place] K/uL 4:07 PM CDT [place] Granulocytes/Leslie 9.6 (H) 2.1 - 8.7 07/09/2018 [facility] [place] trophils K/uL 4:07 PM CDT [place] Absolute Specimen Anatomical Collection Method Collection Time Receive d Time (Source) Location / / Volume Laterality Blood (Blood, 07/09/2018 3:56 PM 07/10/19 19 4:05 Venous) CDT PM CDT Tiffanie Mcgovern APRN, KYLE LAB BLOOD ORDERABLES Performing Organization Address City/State/ZIP Code Phon e Number [facility] [place] [address] [place] [address] documented in this encounter Visit Diagnoses Diagnosis Pharyngitis, unspecified etiology - Prim yareli Screening for diabetes mellitus Influenza-like illness documented in this encounter Care Teams Bead Maker Relationship Specialty Start Date End Date Tiffanie Mcgovern APRN, VISUAL ASSOCIATE PCP - General 10/14/17 07/14/19 100 [facility] [place] [address] documented as of this encounter
--- OUTSIDE RECORDS SUMMARY | 2022-02-12 17:37 | XMS_ITS | Encounter Summary ---
:1970 Author Organization [facility] Address [address] [place] [address] Care Team Providers Name Role Phone Tiffanie Mcgovern APRN, KYLE Primary Care Provider [phone] Reason for Visit Reason Onset Date Comments PINK EYE 01/27/2018 Encounter Details Date Type Department Care Team Description 01/27/2018 Telephone Tiffanie Acuna, PINK EYE [address] AL[place]O, KYLE [place]NESTO [place] [address] 100 [facility] [phone] [place], [place] [address] Social History Tobacco Use [...] - 01/27/2018 11:43 AM CST Patient informed. TRUCTION PROJECT MANAGER Telephone Encounter - Tiffanie Mcgovern APRN, KYLE - 01/27/2018 10:58 AM CONSTRUCTION PROJECT MANAGER Absolutely the prescription has been sent to [facility]. Happy Thanksgiving. Thanks, Dennis TRUCTION PROJECT MANAGER Telephone Encounter - Krystal Rice MA - 01/27/2018 9:49 AM CST Could you send drops into [facility]? TRUCTION PROJECT MANAGER Telephone Encounter - Tammi Bar - 01/27/2018 9:30 AM CST Daughter had pink eye and now mother has the same. She is wondering if RX could be called to [facility]. Please advise. TRUCTION PROJECT MANAGER documented in this encounter Plan of Treatment Not on filedocumented as of this encounter Visit Diagnoses Diagnosis Conjunctivitis, unspecified conjunctivit is type, unspecified laterality - Primary documented in this encounter Care Teams Sash Repairer Relationship Specialty Start Date End Date Tiffanie Mcgovern APRN, SOLE SEWER HAND PCP - General 10/14/17 07/14/[address] [place] [address] [place] [address] documented as of this encounter
--- OUTSIDE RECORDS SUMMARY | 2022-02-12 17:37 | XMS_ITS | Encounter Summary ---
:1970 Author Organization [facility] Address [address] [place] [address] Care Team Providers Name Role Phone Tiffanie Mcgovern APRN, CNP Primary Care Provider [phone] Encounter Details Date Type Department Care Team Description 11/29/2017 Orders Only [place] Guerre[place] Tiffanie Mcgovern, Diarrhea, unspecified [address] KYLE [place] type (Primary Dx) ERNESTO [place] [address] [facility] [address] [place] [address] Social History Tobacco Use Types Packs/Day Years [...] Primary documented in this encounter Care Teams Entrepreneurship Program Director Relationship Specialty Start Date End Date Tiffanie Mcgovern APRN, CNP PCP - General 10/14/17 07/14/19 [address] [place] [address] documented as of this encounter
--- OUTSIDE RECORDS SUMMARY | 2022-02-12 17:39 | XMS_ITS | Encounter Summary ---
:1970 Author Organization [facility] Address [address] [place] [address] Care Team Providers Name Role Phone Unavailable Primary Care Provider Unavailable Encounter Details Date Type Department Care Team Description 09/14/2015 - Hospital Encounter HX RST Adis Zambrano, 09/15/2015 Janene, Ph.D. [address] [place] [phone] Social History Tobacco Use Types Packs/Day Years [...] Chartplus. Pulse 52 09/15/2015 12:30 Value from [facility] tplus. PM CDT Temperature - - Respiratory [...] athologist Signature Troponin T, S <0.01 <0.01 [facility] Specimen Anatomical Collection Method Collection Time Receive d Time (Source) Location / / Volume Laterality 09/14/2015 5:29 PM 6 5:29 CDT PM CDT Ailyn Dee M.D., Ph.D. LAB BLOOD ADD-ON Performing Organization Address City/State/ZIP Code Phon e Number [facility] - [address] [place], [place] [address] [facility] ECG 12 Lead (09/14/2015 5:22 PM CDT) Specimen (Source) Anatomical Collection Method Collection Time Re ceived Time Location / / Volume Laterality 09/14/2015 5:22 PM CDT [facility] SYSTEM - 09/14/2015 5:27 PM CDT [id number] 17:22 VENTRICULAR RATE 52 Sinus bradycardia Low voltage QRS When compared with ECG of 14-SEP-2015 10 :15, No significant change was found [id number]^JR JENNY ROSALES^JUVENTINO Procedure Note Juventino Rosales Jr., M.D. - 05/29/2017For matting of this note might be different from the original. [id number] 17:22 VENTRICULAR RATE 52 Sinus bradycardia Low voltage QRS When compared with ECG of 14-SEP-2015 10 :15, No significant change was found [id number]^JR JENNY ROSALES^JUVENTINO Ailyn Dee M.D., Ph.D. ECG ORDERABLES Performing Organization Address City/State/ZIP Code Phon e Number HX [facility] [address] [place] [address], [place] documented in this encounter Visit Diagnoses Not on filedocumented in this encounter Additional Health Concerns Assessment Noted Time PHQ-9 Depression Total Score: 10 03/11/2013 2:22 PM CS T documented as of this encounter
--- OUTSIDE RECORDS SUMMARY | 2022-02-12 17:39 | XMS_ITS | Encounter Summary ---
:1970 Author Organization [facility] Address [address] [place] [address] Care Team Providers Name Role Phone Unavailable Primary Care Provider Unavailable Reason for Visit Physical Therapy (Routine) - Canceled Specialty Diagnoses / Procedures Referred By Contact Refer red To Contact Diagnoses Aftercare Surgery Injury Ganesh Cortes M.D. [facility] Procedures PT Ongoing treatment [address] [place] [place] [address] Referral ID Status Reason Start Date Expiration Date Visits V isits Requested Authorized [id number] Canceled 12/21/2018 03/09/2019 99 99 Encounter Details Date Type Department Care Team Description 01/08/2019 Clinical Support Department of Ganesh Cortes M.D. [address] [place] [address] Aftercare Surgery Rehabilitation Alyce Salguero, P.T. [address] [place] [phone] Injury Services in [address] [phone] Social History Tobacco Use Types Packs/Day Years [...] Salguero P.T. Department of Rehabilitation Services in [address] [address] Dept: [phone] documented in this encounter Plan of Treatment Not on filedocumented as of this encounter Visit Diagnoses Diagnosis Aftercare Surgery Injury documented in this encounter Additional Health Concerns Assessment Noted Time PHQ-9 Depression Total Score: 3 09/15/2015 2:08 PM CDT documented as of this encounter
--- OUTSIDE RECORDS SUMMARY | 2022-02-12 17:39 | XMS_ITS | Encounter Summary ---
:1970 Author Organization [facility] Address [address] [place] [address] Care Team Providers Name Role Phone Unavailable Primary Care Provider Unavailable Reason for Visit Physical Therapy (Routine) - Closed Specialty Diagnoses / Procedures Referred By Contact Refer red To Contact Diagnoses Aftercare Surgery Injury Ganesh Cortes M.D. [facility] Procedures PT Evaluate and treat [address] [place] [address] Referral ID Status Reason Start Date Expiration Date Visits Requ ested Visits Authorized [id number] Closed 11/27/2018 11/27/2019 1 1 Encounter Details Date Type Department Care Team Description 12/21/2018 Comprehensive Visit Department of Vida Cortes M.D. [address] [place] [address] Aftercare Surgery Rehabilitation Alyce Salguero, P.T. [address] [place] [phone] Injury Services in [address] [phone] Social History Tobacco Use Types Packs/Day Years [...] Visit Diagnosis: 1. Aftercare Surgery Injury Payor: [employer] / Plan: [employer] / Product Type: PPO / Metooo Visit Count: 1 PERTINENT MEDICAL / SURGICAL [...] capsular closure performed by Dr. Cortes at [facility] in [place] on December 18, 2018. Aggravating Factors: Movement [...] Salguero P.T. Department of Rehabilitation Services in [address] [address] Dept: [phone] documented in this encounter Plan of Treatment Not on filedocumented as of this encounter Visit Diagnoses Diagnosis Aftercare Surgery Injury documented in this encounter Additional Health Concerns Assessment Noted Time PHQ-9 Depression Total Score: 3 09/15/2015 2:08 PM CDT documented as of this encounter
--- OUTSIDE RECORDS SUMMARY | 2022-02-12 17:39 | XMS_ITS | Encounter Summary ---
:1970 Author Organization [facility] Address [address] [place] [address] Care Team Providers Name Role Phone Elsewhere, Pcp Primary Care Provider Unavailable Reason for Referral Outpatient (Routine) - Closed Specialty Diagnoses / Procedures Referred By Contact Refer red To Contact Diagnoses Pain Leg Right Remberto Prasad, C.N.P. [facility] [place] [facility] Procedures US Lower Extremity Veins Right [address] [place] [address] Referral ID Status Reason Start Date Expiration Date Visits Requ ested Visits Authorized [id number] Closed 06/18/2021 06/18/2022 1 1 Reason for Visit Outpatient (Routine) - Closed Specialty Diagnoses / Procedures Referred By Contact Refer red To Contact Diagnoses Pain Leg Right Remberto Prasad, C.N.P. [facility] [place] [facility] Procedures US Lower Extremity Veins Right [address] [place] [address] Referral ID Status Reason Start Date Expiration Date Visits Requ ested Visits Authorized [id number] Closed 06/18/2021 06/18/2022 1 1 Encounter Details Date Type Department Care Team Description 06/18/2021 Hospital Encounter Department of Radiology Remberto Prasad , Pain Leg Right in [place], Titus angel C.N.P. [address] [facility] [address] [place] [address] [place], [place] [phone] Social History Tobacco Use Types Packs/Day [...] the highest level of school Associate degree: [employer] program 06/22/2019 you have completed or the [...] man agement can be found on the [employer] site. Link [email or web address] Procedure Note Grey Stratton M.D. - 06/18/2021Formatt [...] man agement can be found on the [employer] site. Link [email or web address] [email or web address] IMPRESSION: Negative for acute DVT. Remberto LOPEZ US PROCEDURES documented in this encounter Visit Diagnoses Diagnosis Pain Leg Right documented in this encounter Additional Health Concerns Assessment Noted Time PHQ-9 Depression Total Score: 3 09/15/2015 2:08 PM CDT documented as of this encounter Care Teams Field Horticultural Specialty Grower Relationship Specialty Start Date End Date Elsewhere, Pcp PCP - General Internal Medicine 06/18/21 documented as of this encounter
--- OUTSIDE RECORDS SUMMARY | 2022-02-12 17:39 | XMS_ITS | Encounter Summary ---
:1970 Author Organization [facility] Address [address] [place] [address] Care Team Providers Name Role Phone Elsewhere, Pcp Primary Care Provider Unavailable Encounter Details Date Type Department Care Team Description 06/11/2019 Orders Only Department of Cardiovascular Adebayo Campos, Diseases in Santana Kiran M.D. [place] [address] [facility] [address] [place] [phone] (Wo rk) Social History Tobacco Use Types [...] 06/22/2019 organizations such as mosque groups, unions, fraternal or athletic groups, or [...] documented as of this encounter Care Teams Solar Technician Relationship Specialty Start Date End Date Elsewhere, Pcp PCP - General Internal Medicine 06/08/19 06/15/21 documented as of this encounter
--- OUTSIDE RECORDS SUMMARY | 2022-02-12 17:39 | XMS_ITS | Encounter Summary ---
:1970 Author Organization [facility] Address [address] [place] [address] Care Team Providers Name Role Phone Elsewhere, Pcp Primary Care Provider Unavailable Encounter Details Date Type Department Care Team Description 06/08/2019 Nurse Triage Department of [facility] Rosario Tijerina, Medicine, [facility], C.N.P., A.P.N.P. in [place], [place] [address] [place] [address] [place] [address] [phone] Social History Tobacco Use Types Packs/Day Years [...] or relatives? How often do you attend roman catholic or More than 4 times per year 06/22/2019 denominational services? Do you belong to any clubs or No 06/22/2019 organizations such as roman catholic groups, unions, fraternal or athletic groups, [...] and water aren't available, use a hand stereotype molder that contains at least 60% alcohol Avoid [...] as of this encounter Care Teams Manager Print Relationship Specialty Start Date End Date Elsewhere, Pcp PCP - General Internal Medicine 06/08/19 06/15/21 documented as of this encounter
--- OUTSIDE RECORDS SUMMARY | 2022-02-12 17:39 | XMS_ITS | Encounter Summary ---
:1970 Author Organization [facility] Address [address] [place] [address] Care Team Providers Name Role Phone Elsewhere, Pcp Primary Care Provider Unavailable Reason for Referral Specialty Diagnoses / Procedures Referred By Contact Refer red To Contact Lili Brown M.D. [facility] [address] [place] [phone] Referral ID Status Reason Start Date Expiration Date Visits Requ ested Visits Authorized HOUSE CRA Encounter Details Date Type Department Care Team Description 01/15/2021 Orders Only RST PCP HLTH MNT Lili Brown M.D. [address] [place], [place] [phone] (Wo rk) Social History [...] 06/22/2019 organizations such as nondenominational groups, unions, [employer] or athletic groups, or school groups? How [...] highest level of school Associate degree: academ [employer] program 06/22/2019 you have completed or the [...] documented as of this encounter Care Teams Occupational Rehabilitation Aide Relationship Specialty Start Date End Date Elsewhere, Pcp PCP - General Internal Medicine 06/08/19 06/15/21 documented as of this encounter
--- OUTSIDE RECORDS SUMMARY | 2022-02-12 17:39 | XMS_ITS | Encounter Summary ---
:1970 Author Organization [facility] Address [address] [place] [address] Care Team Providers Name Role Phone Elsewhere, Pcp Primary Care Provider Unavailable Reason for Referral MRI/CAT/PET Scan (Routine) - Closed Specialty Diagnoses / Procedures Referred By Contact Refer red To Contact Radiology Diagnoses Pain Right Lower Quadrant Penny Palacios M.D. [facility] [place] [facility] Procedures CT Abdomen Pelvis with IV Contrast [place] CT ABD&PELVIS W [facility] [address] [place] [address] Referral ID Status Reason Start Date Expiration Date Visits Requ ested Visits Authorized [id number] Closed 11/04/2019 11/03/2020 1 1 Reason for Visit MRI/CAT/PET Scan (Routine) - Closed Specialty Diagnoses / Procedures Referred By Contact Refer red To Contact Radiology Diagnoses Pain Right Lower Quadrant Penny Palacios M.D. [facility] [place] [facility] Procedures CT Abdomen Pelvis with IV Contrast [place] CT ABD&PELVIS W CNTRST [address] [place] [address] Referral ID Status Reason Start Date Expiration Date Visits Requ ested Visits Authorized [id number] Closed 11/04/2019 11/03/2020 1 1 Encounter Details Date Type Department Care Team Description 11/04/2019 Hospital Encounter Department of Penny Palacios Pain Right Lower Radiology in Rogelio Coleman M.D. [place], [place] [id number] [place] [address] [place], [place] [phone] (Work) [phone] Social History Tobacco Use Types Packs/Day Years [...] the highest level of school Associate degree: [employer] program 06/22/2019 you have completed or the [...] documented as of this encounter Care Teams Rolloff Driver Relationship Specialty Start Date End Date Elsewhere, Pcp PCP - General Internal Medicine 06/08/19 06/15/21 documented as of this encounter
--- OUTSIDE RECORDS SUMMARY | 2022-02-12 17:39 | XMS_ITS | Encounter Summary ---
:1970 Author Organization [facility] Address [address] [place] [address] Care Team Providers Name Role Phone Unavailable Primary Care Provider Unavailable Reason for Visit Physical Therapy (Routine) - Canceled Specialty Diagnoses / Procedures Referred By Contact Refer red To Contact Diagnoses Aftercare Surgery Injury Ganesh Cortes M.D. [facility] Procedures PT Ongoing treatment [address] [place] [address] Referral ID Status Reason Start Date Expiration Date Visits V isits Requested Authorized [id number] Canceled 12/21/2018 03/09/2019 99 99 Encounter Details Date Type Department Care Team Description 12/29/2018 Clinical Support Department of Ganesh Cortes M.D. [address] [address] Aftercare Surgery Rehabilitation Alyce Salguero, P.T. [address] [place] [phone] Injury Services in [address] [phone] Social History Tobacco Use Types Packs/Day Years [...] Salguero P.T. Department of Rehabilitation Services in [address] [address] Dept: [phone] documented in this encounter Plan of Treatment Not on filedocumented as of this encounter Visit Diagnoses Diagnosis Aftercare Surgery Injury documented in this encounter Additional Health Concerns Assessment Noted Time PHQ-9 Depression Total Score: 3 09/15/2015 2:08 PM CDT documented as of this encounter
--- OUTSIDE RECORDS SUMMARY | 2022-02-12 17:39 | XMS_ITS | Encounter Summary ---
:1970 Author Organization [facility] Address [address] [place] [address] Care Team Providers Name Role Phone Elsewhere, Pcp Primary Care Provider Unavailable Encounter Details Date Type Department Care Team Description 06/09/2019 Documentation Department of Cardiovascular CamposDuncan, Diseases in Santana Kiran M.D. [place] [address] [facility] [address] [place] [phone] (Wo rk) Social History Tobacco Use Types [...] documented as of this encounter Care Teams Golf Stud Riveter Relationship Specialty Start Date End Date Elsewhere, Pcp PCP - General Internal Medicine 06/08/19 06/15/21 documented as of this encounter
--- OUTSIDE RECORDS SUMMARY | 2022-02-12 17:39 | XMS_ITS | Encounter Summary ---
:1970 Author Organization [facility] Address [address] [place] [address] Care Team Providers Name Role Phone Elsewhere, Pcp Primary Care Provider Unavailable Encounter Details Date Type Department Care Team Description 01/19/2021 Orders Only RST PCP TH Lili Tobar M.D. [address] [place], [place] [phone] (Wo rk) Social History [...] highest level of school Associate degree: academ [employer] program 06/22/2019 you have completed or the [...] documented as of this encounter Care Teams Software Sales Relationship Specialty Start Date End Date Elsewhere, Pcp PCP - General Internal Medicine 06/08/19 06/15/21 documented as of this encounter
--- OUTSIDE RECORDS SUMMARY | 2022-02-12 17:39 | XMS_ITS | Encounter Summary ---
:1970 Author Organization [facility] Address [address] [place] [address] Care Team Providers Name Role Phone Elsewhere, Pcp Primary Care Provider Unavailable Reason for Referral Outpatient (Routine) - Closed Specialty Diagnoses / Procedures Referred By Contact Refer red To Contact Diagnoses Palpitations Mahamed Campos M.D. [facility] Procedures ECG Heart Rhythm Monitor (Holter) [address] [place], [place] [phone] Referral ID Status Reason Start Date Expiration Date Visits Requ ested Visits Authorized [id number] Closed 06/09/2019 06/08/2020 1 1 Encounter Details Date Type Department Care Team Description 06/09/2019 Orders Only Department of Mahamed Campos Palpitation s (Primary Cardiovascular Diseases Janene Up Dx) in [facility] [address] [facility] [address] [place] [phone] Social History Tobacco Use Types Packs/Day Years [...] or relatives? How often do you attend taoism or More than 4 times per year 06/22/2019 christianity services? Do you belong to any clubs or No 06/22/2019 organizations such as taoism groups, unions, [employer] or athletic groups, or school groups? How [...] encounter Results HOLTER MONITOR - IN CLINIC SHIELD OPERATOR (06/10/2019 3:09 PM CDT) [facility] gist Method Time Signature VE Max Per [id number] HOLTER Hour Time SENTINEL Min Heart Rate [id number] HOLTER Time SENTINEL VE Max Per 7 [...] Recording Date HOLTER SENTINEL Max Heart Rate [id number] HOLTER Time SENTINEL SVE Max Per 9 count HOLTER Hour SENTINEL SVE Max Per [id number] HOLTER Hour Time SENTINEL VE Total Beats [...] documented as of this encounter Care Teams Soakers Supervisor Relationship Specialty Start Date End Date Elsewhere, Pcp PCP - General Internal Medicine 06/08/19 06/15/21 documented as of this encounter
--- OUTSIDE RECORDS SUMMARY | 2022-02-12 17:39 | XMS_ITS | Clinical Summary ---
:1970 Author Organization [facility] Address [address] [place] [address] Care Team Providers Name Role Phone Elsewhere, Pcp Primary Care Provider Unavailable Source Comments Patient records contain information from all sites at [facility]. For routine questions regarding patient records, call [phone] during business hours, M-F 8:00 AM - 5:00 PM Central Time. Record requests for emergency care only can be directed to [phone] at any time.[facility] Allergies Active Allergy Reactions Severity Noted [...] Effective Dates Phone Address Type / Group [facility] [place] [id number] 2020-Prese [phone] [address] [address] PPO BLUE SHIELD nt [address] [place] [address] Care Teams Combat Information Center Officer Relationship Specialty Start Date End Date Elsewhere, Pcp PCP - General Internal Medicine 06/18/21
--- OUTSIDE RECORDS SUMMARY | 2022-02-12 17:39 | XMS_ITS | Encounter Summary ---
:1970 Author Organization [facility] Address [address] [place] [address] Care Team Providers Name Role Phone Unavailable Primary Care Provider Unavailable Reason for Visit Physical Therapy (Routine) - Canceled Specialty Diagnoses / Procedures Referred By Contact Refer red To Contact Diagnoses Aftercare Surgery Injury Ganesh Cortes M.D. [facility] Procedures PT Ongoing treatment [address] [place] [address] [address] Referral ID Status Reason Start Date Expiration Date Visits V isits Requested Authorized [id number] Canceled 12/21/2018 03/09/2019 99 99 Encounter Details Date Type Department Care Team Description 01/15/2019 Clinical Support Department of Ganesh Cortes M.D. [address] [place] [address] Aftercare Surgery Rehabilitation Alyce Salguero, P.T. [address] [place] [phone] Injury Services in [address] [phone] Social History Tobacco Use Types Packs/Day Years [...] arm rows in single arm extension with Loqah-Aqrr-jywvza, standing hipabduction isometrics against the wall. We [...] Salguero P.T. Department of Rehabilitation Services in [address] [address] Dept: [phone] RICT PLANT SUPERVISOR documented in this encounter Plan of Treatment Not on filedocumented as of this encounter Visit Diagnoses Diagnosis Aftercare Surgery Injury documented in this encounter Additional Health Concerns Assessment Noted Time PHQ-9 Depression Total Score: 3 09/15/2015 2:08 PM CDT documented as of this encounter
--- OUTSIDE RECORDS SUMMARY | 2022-02-12 17:39 | XMS_ITS | Encounter Summary ---
:1970 Author Organization [facility] Address [address] [place] [address] Care Team Providers Name Role Phone Elsewhere, Pcp Primary Care Provider Unavailable Reason for Visit Outpatient (Routine) - Closed Specialty Diagnoses / Referred By Contact Referred To Contact Procedures Cardiovascular Diseases / Diagnoses Pain Chest Atypical Mahamed Campos, [facility] Cardiovascular Disease M.D. [address] [place] [address] Referral ID Status Reason Start Date Expiration Date Visits Requ ested Visits Authorized [id number] Closed 06/10/2019 06/09/2020 1 1 Encounter Details Date Type Department Care Team Description 06/24/2019 Virtual Visit Department of Ashlie Jacobs Pain Chest Atypical; Cardiovascular Medicine Janene Maldonado Angina Prinzmetal (HCC) in [facility] [address] [facility] [address] [place], [place] [phone] Social History Tobacco Use Types [...] highest level of school Associate degree: academ [employer] program 06/22/2019 you have completed or the highest degree you have received? Sex Assigned at Date Recorded Not on file documented as of this encounter Consult Notes Ashlie Jacobs M.D. - 06/24/2019 9:45 AM CDT [id number] PHONE VISIT A phone call care discussion in the setting of the national COVID19 pandemic was completed consistent with [facility] institutional direction. This visit was peformed by [...] of the COVID-19 pandemic resulting in her xqhb-ms-jfih appointment being rescheduled. 2010: She reportedly had [...] as of this encounter Care Teams Home Care Provider Relationship Specialty Start Date End Date Elsewhere, Pcp PCP - General Internal Medicine 06/08/19 06/15/21 documented as of this encounter
--- OUTSIDE RECORDS SUMMARY | 2022-02-12 17:39 | XMS_ITS | Encounter Summary ---
:1970 Author Organization [facility] Address [address] [place] [address] Care Team Providers Name Role Phone Unavailable Primary Care Provider Unavailable Reason for Visit Reason Comments Advice Only pt has seen production painter in the past, is having symptoms that pt would like to discuss Appointment Request (Routine) - Closed Specialty Diagnoses / Procedures Referred By Contact Refer red To Contact Family Medicine Referral ID Status Reason Start Date Expiration Date Visits Requ ested Visits Authorized [id number] Closed 09/09/2018 09/09/2019 1 1 Encounter Details Date Type Department Care Team Description 09/24/2018 Office Visit Department of Mahamed Campos Pain Chest Atypical Cardiovascular Diseases Janene Up (Primary Dx) in [facility] [address] [facility] [address] [place] [address]7 848 [phone] Social History Tobacco Use Types Packs/Day Years [...] Laura is a pleasant 48-year-old female from [place], [place]. 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 She previously followed in [facility] with Dr. Paul pedraza back in [...] has undergone evaluation in the Orthopedic Clinic ([facility] in the [facility]). She is not felt to be [...] stairs. 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 She is with [...] consultation with greater than 50% in direct ecor-gv-uzws counseling. CT CT Job ID: [id number] documented in this encounter Plan of Treatment Not on filedocumented as of this encounter Visit Diagnoses Diagnosis Pain Chest Atypical - Primary documented in this encounter Additional Health Concerns Assessment Noted Time PHQ-9 Depression Total Score: 3 09/15/2015 2:08 PM CDT documented as of this encounter
--- OUTSIDE RECORDS SUMMARY | 2022-02-12 17:39 | XMS_ITS | Encounter Summary ---
:1970 Author Organization [facility] Address [address] [place] [address] Care Team Providers Name Role Phone Elsewhere, Pcp Primary Care Provider Unavailable Reason for Referral Outpatient (Routine) - Closed Specialty Diagnoses / Procedures Referred By Contact Refer red To Contact Diagnoses Screening Mammogram Breast Cancer Paul Abarca M.D., Ph.D. [facility] Region Procedures BI Breast Screening Bilateral [address] [place] [address] [place] [address] Referral ID Status Reason Start Date Expiration Date Visits Requ ested Visits Authorized [id number] Closed 11/05/2019 11/04/2020 1 1 Reason for Visit Outpatient (Routine) - Closed Specialty Diagnoses / Procedures Referred By Contact Refer red To Contact Diagnoses Screening Mammogram Breast Cancer Paul Abarca M.D., Ph.D. [facility] Region Procedures BI Breast Screening Bilateral [address] [place] [phone] Referral ID Status Reason Start Date Expiration Date Visits Requ ested Visits Authorized [id number] Closed 11/05/2019 11/04/2020 1 1 Encounter Details Date Type Department Care Team Description 11/08/2019 Hospital Encounter Department of Paul Abarca, Screen ing Mammogram Radiology in Rogelio Watters, Ph.D. Breast Cancer [address] [place] [address] Rogelio Guerrero, [address] [place] [phone] Social History Tobacco Use Types Packs/Day Years [...] the highest level of school Associate degree: [employer] program 06/22/2019 you have completed or the [...] Imaging RST LOS, Breast Imaging ARZ LOS, [place] st Bilateral Mammography Imaging FLA LOS Specimen [...] documented as of this encounter Care Teams Forensic Chemist Relationship Specialty Start Date End Date Elsewhere, Pcp PCP - General Internal Medicine 06/08/19 06/15/21 documented as of this encounter
--- OUTSIDE RECORDS SUMMARY | 2022-02-12 17:39 | XMS_ITS | Encounter Summary ---
:1970 Author Organization [facility] Address [address] [place] [address] Care Team Providers Name Role Phone Elsewhere, Pcp Primary Care Provider Unavailable Encounter Details Date Type Department Care Team Description 06/10/2019 Clinical Communication Department of Mahamed Campos Cardiovascular Medicine Janene Up in [facility] [address] [facility] [address] [place] [phone] Social History Tobacco Use Types Packs/Day Years [...] way but I think she needs the [place] experience to reaffirm this. Thanks in advance Andres Telephone Encounter - Mahamed Campos M.D. - 06/11/2019 12:42 PM CDT Error Telephone Encounter - Katina Head - 06/11/2019 11:[address] Campos, I am attaching Dr. Mcdonald, head of [facility], so she can assess as well, as [...] documented as of this encounter Care Teams Ware Carrier Relationship Specialty Start Date End Date Elsewhere, Pcp PCP - General Internal Medicine 06/08/19 06/15/21 documented as of this encounter
--- OUTSIDE RECORDS SUMMARY | 2022-02-12 17:39 | XMS_ITS | Encounter Summary ---
:1970 Author Organization [facility] Address [address] [place] [address] Care Team Providers Name Role Phone Elsewhere, Pcp Primary Care Provider Unavailable Encounter Details Date Type Department Care Team Description 01/15/2021 Orders Only RST PCP TH Lili Tobar M.D. [address] [place], [place] [phone] (Wo rk) Social History [...] or relatives? How often do you attend baptism or More than 4 times per year 06/22/2019 mormon services? Do you belong to any clubs or No 06/22/2019 organizations such as baptism groups, unions, fraternal or athletic groups, or [...] highest level of school Associate degree: academ [employer] program 06/22/2019 you have completed or the [...] documented as of this encounter Care Teams Corporate Safety Coordinator Relationship Specialty Start Date End Date Elsewhere, Pcp PCP - General Internal Medicine 06/08/19 06/15/21 documented as of this encounter
--- OUTSIDE RECORDS SUMMARY | 2022-02-12 17:39 | XMS_ITS | Encounter Summary ---
:1970 Author Organization [facility] Address [address] [place] [address] Care Team Providers Name Role Phone Elsewhere, Pcp Primary Care Provider Unavailable Reason for Visit Reason Comments Shortness of Breath Encounter Details Date Type Department Care Team Description 06/08/2019 Emergency [facility] Adis Cardenas, Shortness Of Breath (Primary Dx); Department M.D. Anxiety [id number] [address] [place], [place] [phone] Social History Tobacco Use Types Packs/Day [...] particularly concerned because she had a non-STEMI WA a many years ago. As a result [...] supplements. ??If the result does not [facility] clinical observations, repeat testing after patient refrains fr om the use of supplements for at least 12 hours. Specimen Anatomical Collection Method Collection Time Receive d Time (Source) Location / / Volume Laterality Blood (Blood, 06/08/2019 4:23 PM 06/08/19 20 4:26 Venous) CDT PM CDT Adis Cardenas M.D. LAB BLOOD ADD-ON Performing Organization Address City/[facility] Code Phon e Number [address] [address] [place] [address] System [address] ECG 12 Lead (06/08/2019 3:46 PM CDT) P athologist Signature Ventricular Rate 74 BPM MUSE ECG/Min NM Interval 164 ms MUSE QRSD Interval 88 ms MUSE QT Interval 436 ms MUSE QTC Interval 483 ms MUSE P Drums 54 degrees MUSE R Drums 10 degrees MUSE T Wave Drums 17 degrees MUSE Specimen Anatomical Collection Method [...] documented as of this encounter Care Teams Sanding Line Operator Relationship Specialty Start Date End Date Elsewhere, Pcp PCP - General Internal Medicine 06/08/19 06/15/21 documented as of this encounter
--- OUTSIDE RECORDS SUMMARY | 2022-02-12 17:39 | XMS_ITS | Encounter Summary ---
:1970 Author Organization [facility] Address [address] [place] [address] Care Team Providers Name Role Phone Elsewhere, Pcp Primary Care Provider Unavailable Reason for Visit Reason Onset Date Comments Outpatient COVID-19 Testing 12/15/2019 Encounter Details Date Type Department Care Team Description 12/15/2019 External Outreach Department of [facility] Riddhi Rainey [facility] Medicine, [place] Jessica BurnsABethany Respiratory (Primary Clinic, in [facility] [address] Dx) [place], [place] [address] [address] [place], [place] [phone] [address] (Work) [phone] Social History Tobacco Use Types Packs/Day Years [...] or relatives? How often do you attend congregation or More than 4 times per year 06/22/2019 scientologist services? Do you belong to any clubs or No 06/22/2019 organizations such as congregation groups, unions, fraternal or athletic groups, or [...] highest level of school Associate degree: academ [employer] program 06/22/2019 you have completed or [...] RNA, V Symptomatic (12/15/2019 10:15 AM CDT) [facility] Method Time Signature SARS-CoV-2 Swab, 12/15/2019 ECLR [...] is performed using the Aptima SARS-CoV-2 assay ([employer] which has received Emergency Use Authori zation (EUA) by the U.S. Food and Drug Administration. Fact sheets for this Emergency Use Autho rization (EUA) assay can be found at the following links: For Healthcare Providers: https://www.fd a.gov/media/389788/download For Patients: https://www.fda.gov/media/ 660656/download Specimen Anatomical Collection Method Collection Time Receive d Time (Source) Location / / Volume Laterality Varies 12/15/2019 10:15 12/15/2019 3:12 (Nasopharynx) AM CDT PM CDT Carl Rainey P.A.-C. LAB MICROBIOLOGY - GENERAL O BONIFACIO Performing Organization Address City/State/ZIP Code Phon e Number [facility]- [address] [place] [address] [facility] [address] System [address] documented in this encounter Visit Diagnoses Diagnosis Infection Upper Respiratory - Primary documented in this encounter Additional Health Concerns Infection Onset Date Last Indicated Resolved Time COVID19 Pending 12/15/2019 12/15/2019 12/15/2019 9:45 PM CDT Assessment Noted Time PHQ-9 Depression Total Score: 3 09/15/2015 2:08 PM CDT documented as of this encounter Care Teams Rn Telephone Triage Relationship Specialty Start Date End Date Elsewhere, Pcp PCP - General Internal Medicine 06/08/19 06/15/21 documented as of this encounter
--- OUTSIDE RECORDS SUMMARY | 2022-02-12 17:39 | XMS_ITS | Encounter Summary ---
:1970 Author Organization [facility] Address [address] [place] [address] Care Team Providers Name Role Phone Elsewhere, Pcp Primary Care Provider Unavailable Encounter Details Date Type Department Care Team Description 06/16/2019 Documentation Department of Cardiovascular Campos, Duncan Up, [facility] [address] [facility] [address] [place] [phone] (Wo rk) Social History Tobacco Use Types [...] Laura that we have made arrangements for [facility]. She is very much looking forward to this. She has no additional complaints or concerns at this time but understands she can contact me in the future as needed. CT CT Job ID: [id number] documented in this encounter Plan of Treatment Not on filedocumented as of this encounter Visit Diagnoses Not on filedocumented in this encounter Additional Health Concerns Assessment Noted Time PHQ-9 Depression Total Score: 3 09/15/2015 2:08 PM CDT documented as of this encounter Care Teams Prison Psychiatrist Relationship Specialty Start Date End Date Elsewhere, Pcp PCP - General Internal Medicine 06/08/19 06/15/21 documented as of this encounter
--- OUTSIDE RECORDS SUMMARY | 2022-02-12 17:39 | XMS_ITS | Encounter Summary ---
:1970 Author Organization [facility] Address [address] [place] [address] Care Team Providers Name Role Phone Unavailable Primary Care Provider Unavailable Encounter Details Date Type Department Care Team Description 09/14/2016 Hospital Encounter HX [facility] Angel Abarca M.D., Ph.D. [address] [place] [address] ERNESTO Ramirez [phone] (Wo rk) Social History [...] (Rx) OV Est Pt Level 3 - 95432 - 15 min Rapid Strep Confirmation Electronically Signed By: ALEXA ABARCA MD On: 09/14/2016 11:48 AM Source: [facility] POWERCHART Document Id: [id number] documented in this encounter Miscellaneous Notes Miscellaneous - Alexa Abarca M.D. - 09/14/2016 11:41 AM CDT Ambulatory Patient Summary [address] [id number] Visit Information Name: GERMAN NOVAK [facility] Number: [id number] Current Date: 09/14/2016 11:41:20 Physicians [...] vasospasm Mrs. Novak was transferred from the [place] emergency department where he initial troponin was 0.06, and a CK-MB was 5.9. [facility]. She was transferred to [...] if you dont have one. Go to [email or web address] and click on Create Your Account. Then, follow the directions to complete the online form. Youll be asked for your [facility] number which you can find at the top of this document. Your Goals/Additional instructions: Source: [facility] [employer] Group[employer]ART Document Id: [id number] A ELENA Boateng - Alexa Abarca M.D. - 09/14/2016 11:41 AM CDT Ambulatory Discharge Medication List [address] [place], [place] [phone] Visit Information Name: GERMAN NOVAK [facility] Number: [id number] Current Date: 09/14/2016 11:41:19 Attending [...] MD Signed On:14-SEP-2016 11:41:17 Additional Information: Source: [facility] [employer] Group[employer]ART Document Id: [id number] A ELENA Boateng - Lori Maciel L.PSonjaNSonja - 09/14/2016 10:19 AM CDT Adult Rhia Intake/History Adult Rhia Intake/History Entered On: 09/14/2016 10:22 CDT Performed [...] Mass Index : 28.57 kg/m2 LORI MACIEL [facility] - 09/14/2016 10:19 CDT General Info Languages : Gabonese Is Patient Female and 13-50 no hysterectomy : No LORI MACIEL LPN - 09/14/2016 10:19 CDT Subjective Pain Symptoms : Yes LORI MACIEL WOODYARD OPERATOR - 09/14/2016 10:19 CDT Pain Scale Pain [...] MACIEL LPN - 09/14/2016 10:19 CDT Source: [facility] POWERCHART Document Id: [id number]!45 documented in this encounter Plan of [...] Strep A Screen (09/14/2016 10:29 AM CDT) [facility] Method Time Signature HXRapid Strep POWERCHART Confirmation [...] Strep A Screen (09/14/2016 10:29 AM CDT) [facility] Method Time Signature HXStrep A POWERCHART Screen [...]
--- OUTSIDE RECORDS SUMMARY | 2022-02-12 17:39 | XMS_ITS | Encounter Summary ---
:1970 Author Organization [facility] Address [address] [place] [address] Care Team Providers Name Role Phone Elsewhere, Pcp Primary Care Provider Unavailable Reason for Visit Outpatient (Routine) - Closed Specialty Diagnoses / Procedures Referred By Contact Refer red To Contact Diagnoses Palpitations Mahamed Campos M.D. [facility] Procedures ECG Heart Rhythm Monitor (Holter) [address] [place] [address] Referral ID Status Reason Start Date Expiration Date Visits Requ ested Visits Authorized [id number] Closed 06/09/2019 06/08/2020 1 1 Encounter Details Date Type Department Care Team Description 06/10/2019 Ancillary Procedure Department of Mahamed Capmos Palp itations Cardiovascular Diseases Janene Up in [facility] [address] [facility] [address] [place] [phone] Social History Tobacco Use Types Packs/Day Years [...] PM Palpitations Re sults for this CLINIC DIRECTOR OF OPERATIONS SUPPORT CDT procedure are in the results section. documented in this encounter Results HOLTER MONITOR - IN CLINIC DIRECTOR OF OPERATIONS SUPPORT (06/10/2019 3:09 PM CDT) [facility] gist Method Time Signature VE Max Per [id number] HOLTER Hour Time SENTINEL Min Heart Rate [id number] HOLTER Time SENTINEL VE Max Per 7 [...] Recording Date HOLTER SENTINEL Max Heart Rate [id number] HOLTER Time SENTINEL SVE Max Per 9 count HOLTER Hour SENTINEL SVE Max Per [id number] HOLTER Hour Time SENTINEL VE Total Beats [...] documented as of this encounter Care Teams Hire Car Driver Relationship Specialty Start Date End Date Elsewhere, Pcp PCP - General Internal Medicine 06/08/19 06/15/21 documented as of this encounter
--- OUTSIDE RECORDS SUMMARY | 2022-02-12 17:39 | XMS_ITS | Encounter Summary ---
:1970 Author Organization [facility] Address [address] [place] [address] Care Team Providers Name Role Phone Elsewhere, Pcp Primary Care Provider Unavailable Reason for Referral Outpatient (Routine) - Closed Specialty Diagnoses / Procedures Referred By Contact Refer red To Contact Diagnoses Pain Leg Right Remberto Prasad, C.N.P. [facility] Region Procedures US Lower Extremity Veins Right [address] [place] [address] Referral ID Status Reason Start Date Expiration Date Visits Requ ested Visits Authorized [id number] Closed 06/18/2021 06/18/2022 1 1 Reason for Visit Reason Comments Leg Pain Pt presents to ED with right leg pain that started 06/14/21. Pt reports pain behind right knee and into r ight calf. Encounter Details Date Type Department Care Team Description 06/18/2021 Emergency [place] [facility] Remberto Prasad Pain Leg Right (Primary Department C.N.P. Dx) [address] [place] [phone] Social History Tobacco Use Types Packs/Day Years [...] the highest level of school Associate degree: [employer] program 06/22/2019 you have completed or the [...] man agement can be found on the [facility] site. Link [email or web address]/topic/[email or web address]-answers/[email or web address] [email or web address] Procedure Note Grey Stratton M.D. - 06/18/2021Formatt [...] man agement can be found on the [facility] site. Link [email or web address]/topic/clinical-answers/[email or web address]/cpm-[email or web address] 96135 IMPRESSION: Negative for acute DVT. Remberto Prasad [...] Address City/State/ZIP Code Phon e Number [facility]- [address] [place] [address] [facility] [address] Comprehensive Metabolic Panel (06/18/2021 10:34 AM [...] CDT eGFR-Black/Afric >90 >=60 06/18/2021 CNFL an Wallisian mL/min/BSA 11:03 AM CDT Comment: ----ADDITIONAL INFORMATION---- [...] CSonjaN.P. LAB BLOOD ADD-ON Performing Organization Address City/State/[facility] Code Phon e Number [facility]- [address] [place] [address] [facility] [address] CBC without Differential (06/18/2021 10:34 AM [...] C.N.P. LAB BLOOD ADD-ON Performing Organization Address [facility] Phon e Number [facility]- [address] [place] [address] [place] [address] [address] (ABNORMAL) D-Dimer (06/18/2021 10:34 AM CDT) [...] C.N.P. LAB BLOOD ADD-ON Performing Organization Address City/[facility] Phon e Number [facility]- [address] [place] [address] [place] [address] System [address] documented in this encounter Visit Diagnoses [...] documented as of this encounter Care Teams Internal Medicine Hospitalist Relationship Specialty Start Date End Date Elsewhere, Pcp PCP - General Internal Medicine 06/18/21 documented as of this encounter
--- OUTSIDE RECORDS SUMMARY | 2022-02-12 17:39 | XMS_ITS | Encounter Summary ---
:1970 Author Organization [facility] Address [address] [place] [address] Care Team Providers Name Role Phone Elsewhere, Pcp Primary Care Provider Unavailable Reason for Referral Outpatient (Routine) - Closed Specialty Diagnoses / Referred By Contact Referred To Contact Procedures Cardiovascular Diseases / Diagnoses Pain Chest Atypical Mahamed Campos [facility] Cardiovascular Disease MJuancarlos [address] [place] [address] Referral ID Status Reason Start Date Expiration Date Visits Requ ested Visits Authorized [id number] Closed 06/10/2019 06/09/2020 1 1 Encounter Details Date Type Department Care Team Description 06/10/2019 Orders Only Department of Mahamed Campos Pain Chest Atypical Cardiovascular Diseases Janene Up (Primary Dx) in [facility] [address] [facility] [address] [place] [phone] Social History Tobacco Use Types Packs/Day Years [...] 06/22/2019 organizations such as shinto groups, unions, fraSimply Measured or athletic groups, or school groups? How [...] documented as of this encounter Care Teams Self Propelled Hot Mix Roller Operator Relationship Specialty Start Date End Date Elsewhere, Pcp PCP - General Internal Medicine 06/08/19 06/15/21 documented as of this encounter
--- OUTSIDE RECORDS SUMMARY | 2022-02-12 17:40 | XMS_ITS | Encounter Summary ---
:1970 Author Organization [facility] Address [address] [place] [address] Care Team Providers Name Role Phone Unavailable Primary Care Provider Unavailable Encounter Details Date Type Department Care Team Description 08/29/2010 Hospital Encounter HX [facility] Linda Martinez M.D. [address] [place] [address] ERNESTO Ramirez [phone] (Wo rk) Social History Tobacco Use Types [...] MINER LPN - 08/29/2010 10:39 CDT [facility] Document Id: [id number]!8 documented in this encounter Plan of Treatment Not on filedocumented as of this encounter Visit Diagnoses Not on filedocumented in this encounter
--- OUTSIDE RECORDS SUMMARY | 2022-02-12 17:40 | XMS_ITS | Encounter Summary ---
:1970 Author Organization [facility] Address [address] [place] [address] Care Team Providers Name Role Phone Unavailable Primary Care Provider Unavailable Encounter Details Date Type Department Care Team Description 03/11/2013 Hospital Encounter HX [facility] ME Juve Christiansen, ALVERTO, C.N.P., D. N.P. [address] [place] [address] (Wo rk) Social History Tobacco [...] D.N.P., C.N.P. - 03/11/2013 3:08 PM CST [id number] CHIEF COMPLAINT/REASON FOR VISIT Labs. HISTORY OF [...] ECG was unremarkable. She was transferred to [facility] for evaluation of her elevation in cardiac [...] alert/oriented x3. HEAD: Normocephalic/atraumatic. PUPILS: GONZALO. OROPHARYNX: [place] and moist. TMs: Bilateral TMs are clear, [...] also recommend she follow up with our Econometrics Professor for further overall wellness improvement. Patient again felt comfortable with this treatment plan. 2. Depression: Presently at this time she is to continue her previously prescribed Prozac 40 mg by mouth daily but again we will plan on having her follow up with Health and Econometrics Professor for further evaluation to see if we can provide some further improvement regarding her overall depression. We also discussed anxiety at length and the overall need to minimize this as well given her history of her [place]. The patient stated she understands the plan. 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 Patient was seen in [facility] on 03/11/2013 for initial wellness coaching [...] NA FONSECA On: 03/16/2013 04:02 PM Source: [facility] MHSDOLBEYNONRADSYS Document Id: [id number] documented in this encounter Plan of Treatment Not on filedocumented as of this encounter Visit Diagnoses Not on filedocumented in this encounter Additional Health Concerns Assessment Noted Time PHQ-9 Depression Total Score: 10 03/11/2013 2:22 PM CS T documented as of this encounter
--- OUTSIDE RECORDS SUMMARY | 2022-02-12 17:40 | XMS_ITS | Encounter Summary ---
:1970 Author Organization [facility] Address [address] [place] [address] Care Team Providers Name Role Phone Unavailable Primary Care Provider Unavailable Encounter Details Date Type Department Care Team Description 03/15/[address] [facility] ME Juve Christiansen, ALVERTO, C.N.P., D. N.P. 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 - 03/15/2014 7:19 AM CST [id number] CHIEF COMPLAINT/REASON FOR VISIT Followup hyperhidrosis. HISTORY [...] also information regarding the medication from the [facility] Education site were discussed. Medication check [...] DNP, FNP On: 03/15/2014 12:22 PM Source: [facility] MHSDOLBEYNJOVANRADSYS Document Id: [id number] ITY WORKER [employer] documented in this encounter Miscellaneous Notes Miscellaneous - Juve Christiansen D.N.P., C.N.P. - 03/15/2014 8:10 AM UTILITY WORK[employer] Ambulatory Patient Summary [address] [id number] Visit Information Name: GERMAN NOVAK JATIN [facility] Number: [id number] Current Date: 03/15/2014 08:10:26 [...] sweating x 90 day(s) New Routed to [facility] [address] [address] simvastatin (simvastatin 20 mg oral [...] vasospasm Mrs. Novak was transferred from the [place] emergency department where he initial troponin was 0.06, and a CK-MB was 5.9. [facility]. [facility] was transferred to [facility] for evaluation of her elevation in her cardiac serial biomarkers. Due to her associated symptoms of headache and shortness of breath with the chest pain, a head CT was obtained upon arrival to [facility] and did not reveal any abnormalities. 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 Your Goals/Additional instructions: Future Appointment: in June for routine exam and echo Lab: _ Radiology: _ Need Prior Auth: _ NO Prior Auth: _ Consult: _ Release of MR_ PHI_ Source: [facility] POWERCHART Document Id: [id number] IT[employer] WORK[employer] Miscellaneous - Juve Christiansen D.N.P., C.N.P. - 03/15/2014 8:10 AM UTILITY WORK[employer] Ambulatory Discharge Medication List [address] [id number] Visit Information Name: GERMAN NOVAK [facility] Number: [id number] Visit Date: 03/15/2014 08:10:25 [...] sweating x 90 day(s) New Routed to [address] [address] simvastatin (simvastatin 20 mg oral tablet) 1 [...] FNP Signed On:15-MAR-2014 08:08:17 Additional Information: Source: [facility] [email or web address] Document Id: [id number] IT[employer] WORK[employer] Miscellaneous - Damaris Medrano L.P.N. - 03/15/2014 7:40 AM CST Meaningful Use Influenza Exclusion Meaningful Use Influenza Exclusion Entered On: 03/15/2014 7:40 [employer] Performed On: 03/15/2014 7:40 [employer] by DAMARIS MEDRANO LPN Influenza Vaccine Exclusion Influenza Vaccine Exclusion : Patient declined DAMARIS MEDRANO LPN - 03/15/2014 7:40 UT[employer] WORK[employer] Source: [facility] [email or web address] Document Id: [id number] UT[employer] WORK[employer]!3 ITY WORK[employer] Miscellaneous - Damaris Medrano L.P.NSonja - 03/15/2014 7:32 AM CST Adult Early Childhood Special Educator Intake/History Adult Early Childhood Special Educator Intake/History Entered On: 03/15/2014 7:39 [employer] WORK[employer] Performed On: 03/15/2014 7:32 [employer] by DAMARIS MEDRANO LPN Intake Chief Complaint [...] kg/m2 DAMARIS MEDRANO LPN - 03/15/2014 7:32 [employer] General Info Information Given By : Patient Languages : Greenlandic Is Patient Female and 13-50 no hysterectomy : No DAMARIS MEDRANO LPN - 03/15/2014 7:32 [employer] Subjective Pain Symptoms : No DAMARIS MEDRANO LPN - 03/15/2014 7:32 UT[employer] WORK[employer] Dependent Habits Tobacco Use/Currently Using : No Tobacco Use/Last 12 months : No Tobacco Use/Advised to Quit : No Exposure to Tobacco Smoke : Care provider denies smoking in home Smoking Status : Former smoker DAMARIS MEDRANO LPN - 03/15/2014 7:32 [employer] Tobacco Use Grid Type : Cigarettes Last Use : 04/09/12 DAMARIS MEDRANO LPN - 03/15/2014 7:32 [employer] WORK[employer] Alcohol Use : Yes DAMARIS MEDRANO LPN - 03/15/2014 7:32 [employer] WORK[employer] Caffeine Use Grid Caffeine Use : Current Type : Soft drinks Frequency : Daily Amount : 1 DAMARIS MEDRANO LPN - 03/15/2014 7:32 UT[employer] WORK[employer] Recreational Drug Use Grid Drug Use : None DAMARIS MEDRANO LPN - 03/15/2014 7:32 UT[employer] WORK[employer] ID Screen Drug Resistant Organism : No Travel Within Last 21 Days : No DAMARIS MEDRANO LPN - 03/15/2014 7:32 UTILITY WORKER [employer] Source: [facility] POWERCHART Document Id: [id number] UTILITY WORK[employer]!47 ITY WORKER [employer] documented in this encounter Plan of Treatment Not on filedocumented as of this encounter Visit Diagnoses Not on filedocumented in this encounter Additional Health Concerns Assessment Noted Time PHQ-9 Depression Total Score: 10 03/11/2013 2:22 PM CS T documented as of this encounter
--- OUTSIDE RECORDS SUMMARY | 2022-02-12 17:40 | XMS_ITS | Encounter Summary ---
:1970 Author Organization [facility] Address [address] [place] [address] Care Team Providers Name Role Phone Unavailable Primary Care Provider Unavailable Encounter Details Date Type Department Care Team Description 01/07/2011 Hospital Encounter HX NO MAPPING Akanksha Ladd M.D. [address] [place], [place] [phone] (Wo rk) Social History [...] More than 4 times per year 06/22/2019 pentecostal services? Do you belong to any clubs [...] home with her family. 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 No use of tobacco or alcohol. FAMILY [...] LADD MD On: 06/13/2011 09:42 AM Source: [facility] MHSDOLBEYNONRADSYS Document Id: [id number] documented in this encounter Miscellaneous Notes Miscellaneous - Maxime Varghese R.N. - 01/07/2011 1:50 PM CDT Adult Thai Masseur Intake/History Adult Thai Masseur Intake/History Entered On: 01/07/2011 13:55 CDT Performed On: 01/07/2011 13:50 CDT by MAXIME VARGHESE bpm solution architect Chief Complaint : Here for follow -up [...] Preferred Communication Mode : Verbal Languages : [place]an MAXIME VARGHESE RN - 01/07/2011 13:50 CDT [...] VARGHESE RN - 01/07/2011 13:50 CDT Source: [facility] POWERCHART Document Id: [id number] CDT!54 documented in this encounter Plan of Treatment Not on filedocumented as of this encounter Visit Diagnoses Not on filedocumented in this encounter
--- OUTSIDE RECORDS SUMMARY | 2022-02-12 17:40 | XMS_ITS | Encounter Summary ---
:1970 Author Organization [facility] Address [address] [place] [address] Care Team Providers Name Role Phone Unavailable Primary Care Provider Unavailable Encounter Details Date Type Department Care Team Description 12/01/2014 Hospital Encounter HX [facility] ME Shayla Baez, VP PUBLISHER DEVELOPMENT, C.N.P. [address] [place], [place] [address] (Wo rk) Social History [...] or relatives? How often do you attend episcopal or More than 4 times per year 06/22/2019 gnosticism services? Do you belong to any clubs or No 06/22/2019 organizations such as episcopal groups, unions, fraternal or athletic groups, or [...] STRATTON LPN - 12/01/2014 16:26 CDT Source: [facility] POWERCHART Document Id: [id number] CDT!6 documented in this encounter Plan of [...]
--- OUTSIDE RECORDS SUMMARY | 2022-02-12 17:40 | XMS_ITS | Encounter Summary ---
:1970 Author Organization [facility] Address [address] [place] [address] Care Team Providers Name Role Phone Unavailable Primary Care Provider Unavailable Encounter Details Date Type Department Care Team Description 06/19/2010 Hospital Encounter HX [facility] Radha Lopez, INPT/OBSRV M.D. [address] [place] [phone] (Wo rk) Social [...] ARREOLA RN DC Information Discharged to: Other: [facility] Mode of Discharge: Stretcher Discharge Transportation: Ground ambulance Accompanied By: Other: ems Report called to: transfered to [facility] Transfer forms sent with: all emtla paers with and labs and drugs given Date/Time of Discharge: 06/19/2010 16:20 CDT LEA ARREOLA RN - 06/19/2010 16:33 CDT Source: [facility] POWERCHART Document Id: [id number] CDT!9 Lea Arreola R.N. - 06/19/2010 4:32 PM CDT Discharge Summary Discharge Summary Entered On: 06/19/2010 16:33 CDT Performed On: 06/19/2010 16:32 CDT by LEA ARREOLA RN DC Information Date/Time of Discharge: 06/19/2010 16:20 CDT LEA ARREOLA RN - 06/19/2010 16:32 CDT Source: [facility] Nano ePrint Document Id: [id number] CDT!3 Nellie Jerez R.N. - 06/19/2010 10:23 AM CDT ED Discharge Instructions [address] [address] Name: GERMAN NOVAK Date of : 1970 12:00 AM Visit Date: 06/19/2010 8:54 AM Address: [address] [place] [phone] Primary Care Provider: RADHA VALDERRAMA MD IMPORTANT: [facility] would like to thank you for allowing [...] or physician. Patient Signature or Responsible Green Party Date/Time Provider Signature Date/Time Medication Reconciliation: [...] or physician. Patient Signature or Responsible Green Party Date/Time Provider Signature Date/Time Source: [employer] Document Id: [id number] Nellie Jerez R.N. - 06/19/2010 10:23 AM CDT ED Depart Summary [facility] Emergency Department Clinical Discharge Summary PERSON INFORMATION Name GERMAN NOVAK Age 39 Years 1970 12:00 AM Sex Female Language PCP RADHA VALDERRAMA MD Marital Status Visit Id Visit Reason Chest pain; chest pain Specialty Enc Type Emergency Med Service Emergency Medicine Referred by Track Group [facility] ED Discharge Tracking Id [id number] Checkout 06/19/2010 10:23 AM Checkin 06/19/2010 8:54 AM Acuity 2 -Emergent Dispo Type Admitted as Inpatient to this Hospital Arrival 06/19/2010 8:54 AM Reg Status LOS 000 01:29 Address: [address] [place] [phone] Comment: PROVIDER INFORMATION DIAGNOSIS Comment: PATIENT EDUCATION INFORMATION Instructions: Follow up: Source: [employer] Document Id: [id number] documented in this encounter H&P Notes Radha Valderrama M.D. - 06/19/2010 12:00 AM CDT [id number] IMPRESSION/REPORT/PLAN DIAGNOSTICS: An EKG is done which [...] per week. 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 She is exposed to significant [...] RADHA VALDERRAMA MD On: 06/19/2010 04:00 Source: [facility] MHSDOLBEYNONRADSYS Document Id: [id number] documented in this encounter Nursing Notes Lea Arreola R.N. - 06/19/2010 4:27 PM CDT transfer to [facility] Pt left to [facility] after cardicac emzymes 2 draw done hepain started and nitro fusion going pt explaoned poc and family present oxygen on at 4 liters monitor was nsr left at 1620 [facility] ambulance to er Source: [facility] [employer] ePrint Document Id: [id number] Lea Arreola R.N. - 06/19/2010 10:02 AM CDT PRN Response PRN Response Entered On: 06/19/2010 10:09 CDT Performed On: 06/19/2010 10:02 CDT by LEA ARREOLA RN PRN Medication Effectiveness Evaluation PRN Medication Effective: Yes Post Medication Pain Assessment: 6 LEA ARREOLA RN - 06/19/2010 10:08 CDT Source: [employer] Document Id: [id number] CDT!4 Lea Arreola R.N. - 06/19/2010 9:38 AM CDT PRN Response PRN Response Entered On: 06/19/2010 10:08 CDT Performed On: 06/19/2010 9:38 CDT by LEA ARREOLA RN PRN Medication Effectiveness Evaluation PRN Medication Effective: Yes Post Medication Pain Assessment: 8 LEA ARREOLA RN - 06/19/2010 10:08 CDT Source: [facility] Document Id: [id number] CDT!4 Nellie Jerez R.N. - 06/19/2010 9:31 [...] NELLIE JEREZ RN - 06/19/2010 9:31 CDT NELILE JEREZ RN - 06/19/2010 9:31 CDT Source: [employer] Document Id: [id number] CDT!26 Nellie Jerez R.N. - 06/19/2010 9:21 [...] PNED ; Probability: 0 ; Diagnosis Code: [id number] Triage Chief Complaint Description: 39 year old female presents to er c/o left sided chest pain and sudden severe headache Information Given By: Patient, Spouse Accompanied By: Spouse Mode of Arrival ED: Private vehicle Track: Medical Languages: Hungarian Pain Symptoms: Yes Pain Medication Requested: No [...] NELLIE JEREZ RN - 06/19/2010 9:21 CDT [place] Coma Eye Opening Response Maame: Spontaneously Best Verbal Response [place]: Oriented Best Motor Response Maame: Obeys simple commands Maame Coma Score: 15 NELLIE JEREZ RN - 06/19/2010 9:21 CDT ED Physician Notification Time ED Physician Notification Time: 06/19/2010 8:50 CDT NELLIE JEREZ RN - 06/19/2010 9:21 CDT SAEED DCP GENERIC CODE Tracking Acuity: 2 -Emergent Tracking Group: [facility] ED NELLIE JEREZ RN - 06/19/2010 9:21 [...] JEREZ RN - 06/19/2010 9:21 CDT Source: [employer] Document Id: [id number] CDT!105 Nellie Jerez R.Morelia. - 06/19/2010 9:15 [...] JEREZ RN - 06/19/2010 9:15 CDT Source: [employer] Document Id: [id number] CDT!26 Nellie Jerez RJayla - 06/19/2010 8:55 [...] JEREZ RN - 06/19/2010 9:13 CDT Source: [employer] Document Id: [id number] CDT!26 documented in this encounter ED Notes [...] JEREZ RN - 06/19/2010 10:21 CDT Source: [employer] Document Id: [id number] CDT!6 Radha Valderrama M.D. 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 Physical Examination Vital [...] pain, dyspnea, chest pain R/o PE or OK. Electrocardiogram:The Rhythm is sinus. , The [place] is normal. , STT segments Non specific [...] % 50.9 % Lymph % 35.9 % [place] % 6.2 % Eos % 6.0 % [...] Dyspnea 786.09 (Discharge, Emergency medicine, Medical) Source: [facility] [employer] ePrint Document Id: [id number] documented in this encounter Miscellaneous Notes Miscellaneous - Lea Arreola R.N. - 06/19/2010 4:33 PM CDT Valuables/Belongings Valuables/Belongings Entered On: 06/19/2010 16:33 CDT Performed On: 06/19/2010 16:33 CDT by LEA ARREOLA RN Valuables/Belongings Home Medication Disposition: Sent home with family LEA ARREOLA RN - 06/19/2010 16:33 CDT Source: [facility] Document Id: [id number] CDT!3 Miscellaneous - Lea Arreola RJayla - [...] ARREOLA RN - 06/19/2010 13:35 CDT Source: [employer] Document Id: [id number] CDT!27 Miscellaneous - Nellie Jerez R.N. - 06/19/2010 11:16 AM CDT Adult Admission History Adult Admission History Entered On: 06/19/2010 11:32 CDT Performed On: 06/19/2010 11:16 CDT by NELLIE JEREZ RN General Info Preferred Name: German Mode of Arrival: Cart Accompanied By: Spouse Preferred Communication Mode: Verbal Information Given By: Patient Languages: Hungarian Status: Patient denies NELLIE JEREZ RN - [...] RN;Confirmation: Confirmed ; Classification: Nursing ; Code: 498946 ; Contributor System: 2Win-S[employer] ; Last Updated: 06/18/2010 19:00 CDT ; Life Cycle Date: Unknown ; Life Cycle Status: Active ; Vocabulary: SNOMED CT Diagnoses(Active) Chest pain Date: 06/19/2010 9:07 CDT ; Diagnosis Type: Reason For Visit ; Confirmation: Confirmed ; Classification: Medical ; Clinical Service: Emergency medicine ; Code: PNED ; Probability: 0 ; Diagnosis Code: [id number] Chest pain 786.5 Date: 06/19/2010 11:02 CDT [...] JEREZ RN - 06/19/2010 11:16 CDT Source: [facility] Document Id: [id number] CDT!86 Miscellaneous - Nellie Jerez R.N. - [...] pressure Heart Rhythm: Regular Nail Bed Color: [place] Capillary Refill: Less than 2 seconds Edema: [...] JEREZ RN - 06/19/2010 11:12 CDT Source: [employer] Document Id: [id number] CDT!111 Miscellaneous - Nellie Jerez RJayla - [...] JEREZ RN - 06/19/2010 11:10 CDT Source: [employer] Document Id: [id number] CDT!11 Miscellaneous - Lea Arreola R.N. - 06/19/2010 10:11 AM CDT Valuables/Belongings Valuables/Belongings Entered On: 06/19/2010 10:11 CDT Performed On: 06/19/2010 10:11 CDT by LEA ARREOLA RN Valuables/Belongings Home Medication Disposition: Sent home with family LEA ARREOLA RN - 06/19/2010 10:11 CDT Source: [employer] Document Id: [id number] CDT!3 Miscellaneous - Nellie Jerez RJayla - [...] JEREZ RN - 06/19/2010 11:32 CDT Source: [employer] Document Id: [id number] CDT!14 Miscellaneous - Lea Arreola RSonjaNSonja - [...] with Diagnosis Control: 20 Lynx Visit Level: 31846 Level 5 LEA ARREOLA RN - 06/19/2010 10:11 CDT Source: [employer] Document Id: [id number] CDT!12 documented in this encounter Plan of Treatment Not on filedocumented as of this encounter Visit Diagnoses Not on filedocumented in this encounter
--- OUTSIDE RECORDS SUMMARY | 2022-02-12 17:40 | XMS_ITS | Encounter Summary ---
:1970 Author Organization [facility] Address [address] [place] [address] Care Team Providers Name Role Phone Unavailable Primary Care Provider Unavailable Encounter Details Date Type Department Care Team Description 03/15/2014 Hospital Encounter HX [facility] Karen Fernandez, ALVERTO, C.N.P., D. N.P. [address] [phone] (Wo rk) Social History Tobacco Use [...] 173 cm (5' 8.11) 03/15/2014 8:21 AM RN ASSESSMENT Body Mass Index - - documented in this encounter Plan of Treatment Not on filedocumented as of this encounter Visit Diagnoses Not on filedocumented in this encounter Additional Health Concerns Assessment Noted Time PHQ-9 Depression Total Score: 10 03/11/2013 2:22 PM CS T documented as of this encounter
--- OUTSIDE RECORDS SUMMARY | 2022-02-12 17:40 | XMS_ITS | Encounter Summary ---
:1970 Author Organization [facility] Address [address] [place] [address] Care Team Providers Name Role Phone Unavailable Primary Care Provider Unavailable Encounter Details Date Type Department Care Team Description 08/09/2009 Hospital Encounter HX [facility] INPT/OBSRV Debi Baez P.A.-C., P.A. [address] [place] [address] (Wo rk) Social History Tobacco [...]
--- OUTSIDE RECORDS SUMMARY | 2022-02-12 17:40 | XMS_ITS | Encounter Summary ---
:[address] [facility] Address [address] [place] [address] Care Team Providers Name Role Phone Unavailable Primary Care Provider Unavailable Encounter Details Date Type Department Care Team Description 03/08/2014 Hospital Encounter HX [facility] Juve Christiansen, ALVERTO, C.N.P., D. N.P. [address] [place] [address] (Wo rk) Social History Tobacco [...] Comments Blood Pressure 136/74 03/08/2014 7:51 AM SALVAGE GRINDER Pulse 60 03/08/2014 7:51 AM SALVAGE GRINDER Temperature - - Respiratory Rate 16 03/08/2014 7:51 AM SALVAGE GRINDER Oxygen Saturation - - Inhaled Oxygen Concentration - - Weight 87.6 kg (193 lb 2 oz) 03/08/2014 7:51 AM SALVAGE GRINDER Height 173 cm (5' 8.11) 03/08/2014 7:51 AM SALVAGE GRINDER Body Mass Index 29.27 03/08/2014 7:51 AM SALVAGE GRINDER documented in this encounter Progress Notes Juve Christiansen D.N.P., C.N.P. - 03/08/2014 7:32 AM CST [id number] CHIEF COMPLAINT/REASON FOR VISIT Excessive sweating. HISTORY [...] alert/oriented x3. HEAD: Normocephalic/atraumatic. PUPILS: GONZALO. OROPHARYNX: Essig and moist. TYMPANIC MEMBRANES: Bilateral TMs are [...] DNP, FNP On: 03/08/2014 10:15 AM Source: [facility] MHSDOLBEYNONRADSYS Document Id: [id number] AGE GRINDER documented in this encounter Miscellaneous Notes Miscellaneous - Juve Christiansen D.N.P., Ken.N.P. - 03/08/2014 8:37 AM SALVAGE GRINDER Ambulatory Patient Summary [address] [id number] Visit Information Name: MURALI GERMAN JATIN [facility] Number: [id number] Current Date: 03/08/2014 08:37:59 Physicians [...] vasospasm Mrs. Novak was transferred from the [place] emergency department where he initial troponin was 0.06, and a CK-MB was 5.9. Her ECG at [facility] at [place] was unremarkable. She was transferred to [facility] for evaluation of her elevation in her cardiac serial biomarkers. Due to her associated symptoms of headache and shortness of breath with the chest pain, a head CT was obtained upon arrival to [facility] and did not reveal any [...] of increased severe stressors at home and [employer] business, we have set up a psychology [...] Consult: _ Release of MR_ PHI_ Source: [facility] POWERCHART Document Id: [id number] AGE GRINDER Miscellaneous - Juve Christiansen, Cynthia.N.P., C.N.P. - 03/08/2014 8:37 AM SALVAGE GRINDER Ambulatory Discharge Medication List [address] [id number] Visit Information Name: GERMAN NOVAK [facility] Number: [id number] Visit Date: 03/08/2014 08:37:58 Attending [...] FNP Signed On:08-MAR-2014 08:37:28 Additional Information: Source: [facility] POWERCHART Document Id: [id number] AGE GRINDER Miscellaneous - Conversion, Historical Provider Ser - 03/08/2014 7:51 AM SALVAGE GRINDER Adult Svp Research [employer] Analysis Intake/History Adult Svp [employer] Analysis Intake/History Entered On: 03/08/2014 7:56 SALVAGE GRINDER Performed On: 03/08/2014 7:51 SALVAGE GRINDER by ARLETTE MADSEN LPN Intake Chief Complaint [...] kg/m2 ARLETTE MADSEN LPN - 03/08/2014 7:51 SALVAGE GRINDER General Info Information Given By : Patient Languages : Sinhala Is Patient Female and 13-50 no hysterectomy : No ARLETTE MADSEN [facility] - 03/08/2014 7:51 SALVAGE GRINDER Subjective Pain Symptoms : ARLETTE Carranza [facility] - 03/08/2014 7:51 SALVAGE GRINDER Dependent Habits Tobacco Use/Currently Using : No Exposure to Tobacco Smoke : Care provider denies smoking in home Smoking Status : Former smoker ARLETTE MADSEN [facility] - 03/08/2014 7:51 SALVAGE GRINDER Tobacco Use Grid Type : Cigarettes Last Use : 04/09/12 ARLETTE MADSEN [facility] - 03/08/2014 7:51 SALVAGE GRINDER Caffeine Use Grid Caffeine Use : Current Type : Soft drinks Frequency : Daily Amount : 1 ARLETET MADSEN [facility] - 03/08/2014 7:51 SALVAGE GRINDER Recreational Drug Use Grid Drug Use : None ARLETTE MADSEN [facility] - 03/08/2014 7:51 SALVAGE GRINDER ID Screen Drug Resistant Organism : No Travel Within Last 21 Days : ARLETTE Carranza [facility] - 03/08/2014 7:51 SALVAGE GRINDER Source: [employer] Document Id: [id number] SALVAGE GRINDER!46 documented in this encounter Plan of Treatment Not on filedocumented as of this encounter Procedures Procedure Name Priority Date/Time Associated Diagnosis Comme nts THYROID-STIMULATING Routine 03/08/2014 8:25 AM Re sults for this HORMONE-SENSITIVE SALVAGE GRINDER procedure are in (S-TSH) the results section. T4 (THYROXINE), Routine 03/08/2014 8:25 AM Result s for this FREE, S SALVAGE GRINDER procedure are i n the results section. CORTISOL, S Routine 03/08/2014 8:25 AM Results f or this SALVAGE GRINDER procedure are i n the results section. documented in this encounter Results T4 (Thyroxine), Free (03/08/2014 8:25 AM SALVAGE GRINDER) P athologist Signature T4 (Thyroxine), 1.2 NGDL POWERCHART Free, S Comment: REFERENCE VALUE------ 0.8-1.8 Elevated values are seen in patients on thyroxine therapy. Test Performed by: [place] [address] Water Valve Mechanic: Leanne Jorge Specimen (Source) Anatomical Collection Method Collection Time Re ceived Time Location / / Volume Laterality Blood 03/08/2014 8:25 AM SALVAGE GRINDER Juve Christiansen APRN, C.N.P., D.N.P. LAB BLOOD ADD- ON Performing Organization Address City/[facility] Code Phon e Number POWERCHART Thyroid-Stimulating Hormone-Sensitive (s-TSH) (03/08/2014 8:25 AM SALVAGE GRINDER) P athologist Signature TSH 2.63 0.27 - 4.20 POWERCHART (Thyrotropin) MIUL Specimen (Source) Anatomical Collection Method Collection Time Re ceived Time Location / / Volume Laterality Blood 03/08/2014 8:25 AM SALVAGE GRINDER Juve Christiansen APRN, C.N.P., D.N.P. LAB BLOOD ADD- ON Performing Organization Address City/[facility] Code Phon e Number POWERCHART Cortisol (03/08/2014 8:25 AM SALVAGE GRINDER) P athologist Signature Cortisol AM 16 7 - 25 POWERCHART Result [facility] Comment: Test Performed by: [place] [address] Water Valve Mechanic: Leanne Jorge Specimen (Source) Anatomical Collection Method Collection Time Re ceived Time Location / / Volume Laterality Blood 03/08/2014 8:25 AM SALVAGE GRINDER Juve Christiansen APRN, C.N.P., D.N.P. LAB BLOOD ADD- ON Performing Organization Address City/[facility] Code Phon e Number POWERCHART documented in this encounter Visit Diagnoses Not on filedocumented in this encounter Additional Health Concerns Assessment Noted Time PHQ-9 Depression Total Score: 10 03/11/2013 2:22 PM CS T documented as of this encounter
--- OUTSIDE RECORDS SUMMARY | 2022-02-12 17:40 | XMS_ITS | Encounter Summary ---
:1970 Author Organization [facility] Address [address] [place] [address] Care Team Providers Name Role Phone Unavailable Primary Care Provider Unavailable Encounter Details Date Type Department Care Team Description 02/14/2012 Hospital Encounter HX [facility] Molly Llanes M.D. [address] [place] [address] Rogelio Guerrero ERNESTO [phone] (Wo rk) Social [...] Comments Blood Pressure 120/74 02/14/2012 1:18 PM BRAIDED RUG MAKER Pulse 68 02/14/2012 1:18 PM BRAIDED RUG MAKER Temperature - - Respiratory Rate 16 02/14/2012 1:18 PM BRAIDED RUG MAKER Oxygen Saturation - - Inhaled Oxygen Concentration - - Weight 84.2 kg (185 lb 10 oz) 02/14/2012 1:18 PM BRAIDED RUG MAKER Height 173.3 cm (5' 8.23) 02/14/2012 1:18 PM BRAIDED RUG MAKER Body Mass Index 28.04 02/14/2012 1:18 PM BRAIDED RUG MAKER documented in this encounter Progress Notes Molly Gomez M.D. - 02/14/2012 1:11 PM CST [id number] CHIEF COMPLAINT/REASON FOR VISIT 1. Follow-up labs. 2. Right skin lesion. HISTORY OF PRESENT ILLNESS German is a 41-year-old female who recently saw her orchard pruner and had some complaints about hot flashes, [...] has noticed a mole in her right quaker in the hairline for awhile now and [...] acute distress. SKIN: In the patient's right quaker there is a well-circumscribed, minimally asymmetric, mildly [...] effect. 2. Suspect seborrheic keratosis to right quaker. At this time I think this lesion [...] expressed understanding of the content Molly Manzo M.D./[facility] Electronically Signed By: MOLLY MONTIEL MD On: 02/20/2012 09:48 AM Modified by and Electronically Signed by: MOLLY MONTIEL MD On: 02/20/2012 09:48 AM Source: [facility] MHSDOLBEYNONRADSYS Document Id: [id number] DED RUG MAKER documented in this encounter Miscellaneous Notes Miscellaneous - Molly Gomez M.D. - 02/14/2012 1:52 PM BRAIDED RUG MAKER Ambulatory Patient Summary [address] [id number] Visit Information Name: GERMAN NOVAK [facility] Number: [id number] Current Date: 02/14/2012 13:52:23 Physicians Attending Provider: MOLLY MONTIEL MD Primary Care Provider: LAVELL BUCHANAN RN, PLASTIC DOLLS MOLD FILLER Your Medications Here is a list of [...] No Appointments found Your Goals/Additional instructions: Source: [facility] POWERCHART Document Id: [id number] DED RUG MAKER Miscellaneous - Molly Gomez M.D. - 02/14/2012 1:52 PM BRAIDED RUG MAKER Ambulatory Depart Summary [address] [address] Visit Information Name: GERMAN NOVAK [facility] Number: [id number] Visit Date: 02/14/2012 13:52:22 Attending Provider: MOLLY MONTIEL MD Primary Care Provider: LAVELL BUCHANAN RN, PLASTIC DOLLS MOLD FILLER GERMAN NOVAK has been given the following [...] your provider for clarification. Additional Information: Source: [facility] POWERCHART Document Id: [id number] DED RUG MAKER Miscellaneous - Molly Gomez M.D. - 02/14/2012 1:41 PM BRAIDED RUG MAKER PHQ-9 PHQ-9 Entered On: 02/14/2012 13:43 BRAIDED RUG MAKER Performed On: 02/14/2012 13:41 BRAIDED RUG MAKER by MOLLY MONTIEL MD PHQ-9 Little interest [...] difficult MOLLY MONTIEL MD - 02/14/2012 13:41 BRAIDED RUG MAKER Source: [facility] POWERCHART Document Id: [id number] DED RUG MAKER Miscellaneous - Francisco Medrano L.PSonjaNSonja - 02/14/2012 1:18 PM CST Adult Parcel Post Carrier Intake/History Adult Parcel Post Carrier Intake/History Entered On: 02/14/2012 13:23 BRAIDED RUG MAKER Performed On: 02/14/2012 13:18 BRAIDED RUG MAKER by FRANCISCO MEDRANO LPN Intake Chief Complaint [...] 28.04kg/m2 FRANCISCO MEDRANO LPN - 02/14/2012 13:18 BRAIDED RUG MAKER Subjective Pain Symptoms : No FRANCISCO MEDRANO LPN - 02/14/2012 13:18 BRAIDED RUG MAKER Dependent Habits Tobacco Use/Currently Using : No Tobacco Use/Last 12 months : No Tobacco Use/Advised to Quit : No Exposure to Tobacco Smoke : Care provider denies smoking in home Smoking Status : Former smoker FRANCISCO MEDRANO LPN - 02/14/2012 13:18 BRAIDED RUG MAKER Tobacco Use Grid Type : Cigarettes Last Use : 06/18/2010 FRANCISCO MEDRANO LPN - 02/14/2012 13:18 BRAIDED RUG MAKER Alcohol Use : Yes FRANCISCO MEDRANO LPN - 02/14/2012 13:18 BRAIDED RUG MAKER Caffeine Use Grid Caffeine Use : Current Type : Soft drinks Frequency : Daily Amount : 1 FRANCISCO MEDRANO LPN - 02/14/2012 13:18 BRAIDED RUG MAKER Recreational Drug Use Grid Drug Use : None FRANCISCO MEDRANO LPN - 02/14/2012 13:18 BRAIDED RUG MAKER Allergy Allergies (Active) morphine Estimated Onset Date: Unspecified ; Created By: RAVEN DELUNA LPN; Reaction Status: Active ; Category: Drug ; Substance: morphine ; Type: Allergy ; Updated By: RAVEN DELUNA LPN; Reviewed Date: 02/14/2012 13:17 BRAIDED RUG MAKER narcotic analgesics Estimated Onset Date: Unspecified ; Reactions: itch ; Created By: NELLIE JOHNSON RN; Reaction Status: Active ; Category: Drug ; Substance: narcotic analgesics ; Type: Sensitivity ; Updated By: NELLIE JOHNSON RN; Reviewed Date: 02/14/2012 13:17 BRAIDED RUG MAKER Percocet 5/325 Estimated Onset Date: Unspecified ; Created By: RAVEN DELUNA LPN; Reaction Status:Active ; Category: Drug ; Substance: Percocet 5/325 ; Type: Allergy ; Updated By: RAVEN DELUNA LPN; Reviewed Date: 02/14/2012 13:17 BRAIDED RUG MAKER Toradol Estimated Onset Date: Unspecified ; Created By: RAVEN DELUNA LPN; Reaction Status: Active; Category: Drug ; Substance: Toradol ; Type: Allergy ; Updated By: RAVEN DELUNA LPN; Reviewed Date: 02/14/2012 13:17 BRAIDED RUG MAKER Source: [facility] [employer] Document Id: [id number] DED RUG MAKER Miscellaneous - Francisco Medrano L.P.NSonja - 02/14/2012 1:18 PM CST Health Assessment Health Assessment Entered On: 02/14/2012 13:24 BRAIDED RUG MAKER Performed On: 02/14/2012 13:18 BRAIDED RUG MAKER by FRANCISCO MEDRANO LPN Health Assessment Complete Health Assessment Complete or Modified : Annual Health Assessment Annual Health Assessment Completed : Yes FRANCISCO MEDRANO LPN - 02/14/2012 13:18 BRAIDED RUG MAKER Nutrition Nutrition Risk Factors by History Adult : None FRANCISCO MEDRANO LPN - 02/14/2012 13:18 BRAIDED RUG MAKER Functional Current Daily Living Assistance : None FRANCISCO MEDRANO LPN - 02/14/2012 13:18 BRAIDED RUG MAKER Dependent Habits Tobacco Use/Currently Using : No Smoking Status : Former smoker FRANCISCO MEDRANO LPN - 02/14/2012 13:18 BRAIDED RUG MAKER Tobacco Use Grid Type : Cigarettes Last Use : 06/18/2010 FRANCISCO MEDRANO LPN - 02/14/2012 13:18 BRAIDED RUG MAKER Caffeine Use Grid Caffeine Use : Current Type : Soft drinks Frequency : Daily Amount : 1 FRANCISCO MEDRANO LPN - 02/14/2012 13:18 BRAIDED RUG MAKER Psychosocial Domestic Abuse Concerns : None FRANCISCO MEDRANO LPN - 02/14/2012 13:18 BRAIDED RUG MAKER Advance Directive Advanced Directives : No FRANCISCO MEDRANO LPN - 02/14/2012 13:18 BRAIDED RUG MAKER Educ Needs Learning Style Preference Adult Grid Patient : None Family : None FRANCISCO MEDRANO LPN - 02/14/2012 13:18 BRAIDED RUG MAKER [facility] Document Id: [id number] DED RUG MAKER documented in this encounter Plan of Treatment Not on filedocumented as of this encounter Visit Diagnoses Not on filedocumented in this encounter Additional Health Concerns Assessment Noted Time PHQ-9 Depression Total Score: 15 02/14/2012 1:41 PM CS T documented as of this encounter
--- OUTSIDE RECORDS SUMMARY | 2022-02-12 17:40 | XMS_ITS | Encounter Summary ---
:1970 Author Organization [facility] Address [address] [place] [address] Care Team Providers Name Role Phone Unavailable Primary Care Provider Unavailable Encounter Details Date Type Department Care Team Description 07/30/2012 Hospital Encounter HX [facility] [place] Nestor, Javan tsang P.A.-C., P.A. [address] [place] [address] (Wo rk) [...] Body Mass Index 27.67 04/24/2012 9:04 AM LACE AND TEXTILES RESTORER documented in this encounter Progress Notes Estephanie Ellington - 07/30/2012 5:20 PM CDT [id number] CHIEF COMPLAINT/REASON FOR VISIT This is a 41-year-old female seen today concerned of dog scratches on her left forearm. HISTORY OF PRESENT ILLNESS She states that she was scratched yesterday. 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 [...] On: 08/04/2012 12:11 PM Source: [facility] MHSDOLBEYNONRADSYS Document Id: [id number] documented in this encounter Miscellaneous Notes Miscellaneous - Estephanie Ellington - 07/30/2012 7:58 PM CDT Ambulatory Patient Summary [phone] [place] [address] Visit Information Name: GERMAN NOVAK [facility] Number: [id number] Current Date: 07/30/2012 19:58:15 Physicians Attending Provider: ESTEPHANIE ELLINGTON Primary Care Provider: LAVELL BUCHANAN RN, SNORKELLING INSTRUCTOR Your Medications Here is a list of [...] found Your Goals/Additional instructions: Source: [facility] POWERCHART Document Id: [id number] Miscellaneous - Estephanie Ellington - 07/30/2012 7:58 PM CDT Ambulatory Depart Summary [address] [place] [address] Visit Information Name: GERMAN NOVAK [facility] Number: [id number] Visit Date: 07/30/2012 19:58:14 Attending Provider: ESTEPHANIE ELLINGTON Primary Care Provider: LAVELL BUCHANAN RN, SNORKELLING INSTRUCTOR GERMAN NOVAK has been given the following [...] for clarification. Additional Information: Source: [facility] POWERCHART Document Id: [id number] Miscellaneous - Lori Coyle, LSonjaP.N. - 07/30/2012 5:33 PM CDT Adult Web Consultant Intake/History Adult Web Consultant Intake/History Entered On: 07/30/2012 17:36 CDT Performed On: 07/30/2012 17:33 CDT by LORI GOYAL EDUCATION DEPARTMENT REGISTRAR Intake Chief Complaint : scratched yesterday on [...] : 82.8 kg JAY JAY LORI Marie [facility] 07/30/2012 17:33 CDT General Info Information Given By : Patient Languages : Yi KAITY GOYALJENNIFER Marie [facility] 07/30/2012 17:33 CDT Subjective Pain Symptoms : Yes LORI GOYAL [facility] 07/30/2012 17:33 CDT Pain Pain Assessment Grid Pain 1 Location : Other: left forearm Intensity : 1 JAY JAY LORI Marie [facility] - 07/30/2012 17:33 CDT Dependent Habits Tobacco Use/Currently Using : No Exposure to Tobacco Smoke : Care provider denies smoking in home Smoking Status : Former smoker LORI GOYAL [facility] - 07/30/2012 17:33 CDT Tobacco Use Grid Type : Cigarettes Last Use : 04/09/12 LORI GOYAL [facility] 07/30/2012 17:33 CDT Alcohol Use : Yes LORI GOYAL [facility] - 07/30/2012 17:33 CDT Caffeine Use Grid Caffeine Use : Current Type : Soft drinks Frequency : Daily Amount : 1 LORI GOYAL [facility] - 07/30/2012 17:33 CDT Recreational Drug Use Grid Drug Use : None LORI GOYAL [facility] 07/30/2012 17:33 CDT Source: [facility] Document Id: [id number]!45 documented in this encounter Plan of Treatment Not on filedocumented as of this encounter Visit Diagnoses Not on filedocumented in this encounter Additional Health Concerns Assessment Noted Time PHQ-9 Depression Total Score: 4 04/24/2012 3:07 PM LACE AND TEXTILES RESTORER documented as of this encounter
--- OUTSIDE RECORDS SUMMARY | 2022-02-12 17:40 | XMS_ITS | Encounter Summary ---
:1970 Author Organization [facility] Address [address] [place] [address] Care Team Providers Name Role Phone Unavailable Primary Care Provider Unavailable Encounter Details Date Type Department Care Team Description 09/14/2015 Hospital Encounter HX NO MAPPING Hilario, Helena Perdomo, YANG N, C.N.P., D.N.P. [address] [place], [place] [phone] (Wo rk) Social History [...]
--- OUTSIDE RECORDS SUMMARY | 2022-02-12 17:40 | XMS_ITS | Encounter Summary ---
:1970 Author Organization [facility] Address [address] [place] [address] Care Team Providers Name Role Phone Unavailable Primary Care Provider Unavailable Encounter Details Date Type Department Care Team Description 06/17/2013 Hospital Encounter [facility]X [facility] Tiffanie Christiansen, ALVERTO, C.N.P., D.N.P. [address], [place] [phone] (Wo rk) Social History [...] Letter 18 June 2013 GERMAN NOVAK [address] [facility], [place] [id number] Dear GERMAN NOVAK, I am pleased to [...] 3 06/17/2013 3 03/11/2013 Sincerely, TIFFANIE CHRISTIANSEN [facility] [place] [address] Electronic Signature Electronically Signed By: TIFFANIE CHRISTIANSEN DNP, FNP On: 18 June 2013 This document has images extracted. Source: [facility] POWERCHART Document Id: [id number] Electronically signed by Vipin [facility] Pre Fabricator [id number] at 08/06/2016 9:02 AM CDT documented in [...] Blood 06/17/2013 7:55 AM CDT Tiffanie Christiansen LOFTSMAN, C.N.P., D.N.P. LAB BLOOD ADD- ON Performing Organization Address [facility]/ZIP Code Phon e Number POWERCHART (ABNORMAL) Lipid [...] LAB BLOOD ADD- ON Performing Organization Address City/State/[facility] Code Phon e Number POWERCHART documented in this encounter Visit Diagnoses Not on filedocumented in this encounter Additional Health Concerns Assessment Noted Time PHQ-9 Depression Total Score: 03/11/2013 2:22 PM CS T documented as of this encounter
--- OUTSIDE RECORDS SUMMARY | 2022-02-12 17:40 | XMS_ITS | Encounter Summary ---
:1970 Author Organization [facility] Address [address] [place] [address] Care Team Providers Name Role Phone Unavailable [...] 21-Jun-2010 08:31:00 ??Exam: US Abdomen Limited Indications: [id number] - Abd Limite d - chest pain [...] Electronically signed by: ?? Gerald Simon MD [phone] ([id number]) 21-Jun-2010 08:36 Procedure Note Naveen Simon M.D. - 06/07/2017For matting of this note might be different from the original. 21-Jun-2010 08:31:00 Exam: US Abdomen [facility] Indications: [id number] - Abd Limite d - chest pain [...] diameter. Electronically signed by: Gerald Simon MD [phone] ([id number]) 21-Jun-2010 08:36 Butch LOPEZ US PROCEDURES documented in this encounter Visit Diagnoses Not on filedocumented in this encounter
--- OUTSIDE RECORDS SUMMARY | 2022-02-12 17:40 | XMS_ITS | Encounter Summary ---
:1970 Author Organization [facility] Address [address] [place] [address] Care Team Providers Name Role Phone Unavailable Primary Care Provider Unavailable Encounter Details Date Type Department Care Team Description 09/06/2013 Hospital Encounter HX [facility]ILY [facility] Elio Roberts M.D. Social [...] or relatives? How often do you attend hinduism or More than 4 times per year 06/22/2019 yazdanism services? Do you belong to any clubs or No 06/22/2019 organizations such as hinduism groups, unions, fraternal or athletic groups, or [...] Roberts M.D. - 09/06/2013 3:16 PM CDT [id number] German comes in complaining of a headache. She has had it for the past week. She has used ajrb-kdq-ejcnkuz medication, ibuprofen, Aleve, Tylenol, Excedrin without any [...] splenomegaly. IMPRESSION/REPORT/PLAN Migraine headache, not responsive to pwze-jjm-nfseqqx medications, esophageal reflux, chest pain. AnEKG was [...] the Prozac. Also suggested she get some dqxs-kan-ncejyrd Prilosec and take it daily for the heartburn. Elio Roberts M.D./shimon Electronically Signed By: ELIO ROBERTS MD On: 09/08/2013 07:49 AM Source: [facility] MHSDOLBEYNONRADSYS Document Id: [id number] documented in this encounter Miscellaneous Notes Miscellaneous - Raven Jaramillo LSonjaP.N. - 03/08/2014 1:52 PM CST Quality Measures Quality Measures Entered On: 03/09/2014 13:53 WINTERIZER Performed On: 03/08/2014 13:52 WINTERIZER by RAVEN JARAMILLO LPN Depression PHQ-9 Score : 2 RAVEN JARAMILLO LPN - 03/09/2014 13:52 WINTERIZER Source: [facility] POWERCHART Document Id: [id number] WINTERIZER!3 ERIZER Miscellaneous - Elio Roberts M.D. - 09/06/2013 5:15 PM CDT Ambulatory Patient Summary [id number] [place], [place] [phone] Visit Information Name: GERMAN NOVAK [facility] Number: [id number] Current Date: 09/06/2013 17:15:09 Physicians Attending Provider: ELIO ROBERTS MD Primary Care Provider: JUVE CHRISTIANSEN DNP, CONVEYOR SYSTEM OPERATOR YUSEFFERNANDOGERMANE has been given the following list [...] day This is a CHANGE [facility] [address] HYDROcodone-acetaminophen (Vicodin 5 mg-300 mg oral tablet) 1 Tablet(s), Oral, every 4 hours as needed for Pain No more than 4,000mg acetaminophen/24hrs New Routed to [facility] multivitamin (Multiple Vitamins oral tablet) 1 Tablet(s), [...] vasospasm Mrs. Novak was transferred from the [place] emergency department where he initial troponin was 0.06, and a CK-MB was 5.9. [facility]. She was transferred to [facility] for evaluation of her elevation in her cardiac serial biomarkers. Due to her associated symptoms of headache and shortness of breath with the chest pain, a head CT was obtained upon arrival to [facility] and did not reveal any abnormalities. [...] appointment detail needed. Your Goals/Additional instructions: Source: [facility] POWERCHART Document Id: [id number] Miscellaneous - Elio Roberts M.D. - 09/06/2013 5:15 PM CDT Ambulatory Discharge Medication List [address] [id number] Visit Information Name: GERMAN NOVAK [facility] Number: [id number] Visit Date: 09/06/2013 17:15:08 Attending Provider: ELIO ROBERTS MD Primary Care Provider: JUVE CHRISTIANSEN [facility], CONVEYOR SYSTEM OPERATOR GERMAN NOVAK has been given the [...] day This is a CHANGE Routed to [address] [address] HYDROcodone-acetaminophen (Vicodin 5 mg-300 mg oral tablet) [...] MD Signed On:06-SEP-2013 17:14:45 Additional Information: Source: [facility] POWERCHART Document Id: [id number] Miscellaneous - Robert Del Rio L.P.N. - 09/06/2013 3:24 PM CDT Adult Program Coordinator Intake/History Adult Program Coordinator Intake/History Entered On: 09/06/2013 15:27 CDT Performed [...] Information Given By : Patient Languages : Kuwaiti ROBERT DEL RIO - 09/06/2013 15:24 CDT [...] ELIANE ROBERT - 09/06/2013 15:24 CDT Source: [facility] POWERCHART Document Id: [id number] CDT!44 documented in this encounter Plan of [...]
--- OUTSIDE RECORDS SUMMARY | 2022-02-12 17:40 | XMS_ITS | Encounter Summary ---
:1970 Author Organization [facility] Address [address] [place] [address] Care Team Providers Name Role Phone Unavailable Primary Care Provider Unavailable Encounter Details Date Type Department Care Team Description 08/06/[address] [facility] INPT/OBSRV Brenda Garvey M.D. [address] [place] [phone] (Wo rk) Social History Tobacco [...]
--- OUTSIDE RECORDS SUMMARY | 2022-02-12 17:40 | XMS_ITS | Encounter Summary ---
:1970 Author Organization [facility] Address [address] [place] [address] Care Team Providers Name Role Phone Unavailable Primary Care Provider Unavailable Encounter Details Date Type Department Care Team Description 03/11/2013 Hospital Encounter HX [facility] Karen Fernandez, ALVERTO, C.N.P., D. N.P. [address] [address] [phone] (Wo rk) Social History Tobacco Use [...]
--- OUTSIDE RECORDS SUMMARY | 2022-02-12 17:40 | XMS_ITS | Encounter Summary ---
:1970 Author Organization [facility] Address [address] [place] [address] Care Team Providers Name Role Phone Unavailable Primary Care Provider Unavailable Encounter Details Date Type Department Care Team Description 02/03/2012 Hospital Encounter HX NO MAPPING Akanksha Ladd M.D. [address] [place], [place] [phone] (Wo rk) Social History [...] Comments Blood Pressure 122/80 02/03/2012 2:52 PM VACUUM TESTER CANS Pulse 60 02/03/2012 2:52 PM VACUUM TESTER CANS Temperature - - Respiratory Rate - - Oxygen Saturation - - Inhaled Oxygen Concentration - - Weight 84.6 kg (186 lb 8.2 oz) 02/03/2012 2:52 PM VACUUM TESTER CANS Height 172 cm (5' 7.72) 02/03/2012 2:52 PM VACUUM TESTER CANS Body Mass Index 28.6 02/03/2012 2:52 PM VACUUM TESTER CANS documented in this encounter Consult Notes Joel [...] with her family. 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 No use of tobacco or alcohol. [...] LADD MD On: 06/29/2012 03:19 PM Source: [facility] MHSDOLBEYNONRADSYS Document Id: [id number] documented in this encounter Miscellaneous Notes Miscellaneous - Maxime Varghese R.N. - 02/03/2012 2:52 PM CST Adult Residence Leasing Agent Intake/History Adult Residence Leasing Agent Intake/History Entered On: 02/03/2012 14:55 VACUUM TESTER CANS Performed On: 02/03/2012 14:52 VACUUM TESTER CANS by MAXIME VARGHESE RN Intake Chief Complaint [...] 28.60kg/m2 MAXIME VARGHESE RN - 02/03/2012 14:52 VACUUM TESTER CANS General Info Information Given By : Patient Preferred Communication Mode : Verbal MAXIME VARGHESE RN - 02/03/2012 14:52 VACUUM TESTER CANS Subjective Pain Symptoms : No MAXIME VARGHESE RN - 02/03/2012 14:52 VACUUM TESTER CANS Dependent Habits Tobacco Use/Currently Using : No Smoking Status : Former smoker MAXIME VARGHESE RN - 02/03/2012 14:52 VACUUM TESTER CANS Tobacco Use Grid Type : Cigarettes Last Use : 06/18/2010 MAXIME VARGHESE RN - 02/03/2012 14:52 VACUUM TESTER CANS Alcohol Use : Yes MAXIME VARGHESE RN - 02/03/2012 14:52 VACUUM TESTER CANS Caffeine Use Grid Caffeine Use : Current Type : Soft drinks Frequency : Daily Amount : 1 MAXIME VARGHESE RN - 02/03/2012 14:52 VACUUM TESTER CANS Allergy Allergies (Active) morphine Estimated Onset Date: Unspecified ; Created By: RAVEN DELUNA LPN; Reaction Status: Active ; Category: Drug ; Substance: morphine ; Type: Allergy ; Updated By: RAVEN DELUNA LPN; Reviewed Date: 02/03/2012 14:52 VACUUM TESTER CANS narcotic analgesics Estimated Onset Date: Unspecified ; Reactions: itch ; Created By: NELLIE JOHNSON RN; Reaction Status: Active ; Category: Drug ; Substance: narcotic analgesics ; Type: Sensitivity ; Updated By: NELLIE JOHNSON RN; Reviewed Date: 02/03/2012 14:52 VACUUM TESTER CANS Percocet 5/325 Estimated Onset Date: Unspecified ; Created By: RAVEN DELUNA LPN; Reaction Status:Active ; Category: Drug ; Substance: Percocet 5/325 ; Type: Allergy ; Updated By: RAVEN DELUNA LPN; Reviewed Date: 02/03/2012 14:52 VACUUM TESTER CANS Toradol Estimated Onset Date: Unspecified ; Created By: RAVEN DELUNA LPN; Reaction Status: Active; Category: Drug ; Substance: Toradol ; Type: Allergy ; Updated By: RAVEN DELUNA LPN; Reviewed Date: 02/03/2012 14:52 VACUUM TESTER CANS Source: [facility] Seniorlink Document Id: [id number] UM TESTER CANS documented in this encounter Plan of Treatment Not on filedocumented as of this encounter Visit Diagnoses Not on filedocumented in this encounter
--- OUTSIDE RECORDS SUMMARY | 2022-02-12 17:40 | XMS_ITS | Encounter Summary ---
:1970 Author Organization [facility] Address [address] [place] [address] Care Team Providers Name Role Phone Unavailable Primary Care Provider Unavailable Encounter Details Date Type Department Care Team Description 09/14/2015 Hospital Encounter [facility]X [facility] ED Jayne Lopez M.D. [address] [place], [place] [address] [phone] (Wo rk) Social History [...] 09/14/2015 1:14 PM CDT ED Depart Summary [facility] Emergency Department Clinical Discharge Summary PERSON INFORMATION Name GERMAN NOVAK Age 45 Years 1970 12:00 AM Sex Female Language Belgian PCP PCP, ELSEWHERE Marital Status Visit Id Visit Reason Chest pain; rule out heart attack Specialty Enc Type Emergency Med Service Emergency Medicine Referred by [facility] ED Discharge 09/14/2015 1:05 PM Tracking Id [id number] Checkout 09/14/2015 1:05 PM Checkin 09/14/2015 10:07 AM Acuity 2 -Emergent Dispo Type Disch/Trans ShortTerm Gen Hosp-Inpt Care Arrival 09/14/2015 10:07 AM Reg Status LOS 000 02:58 Address: [address] [place] [address] [place] [id number] Comment: PROVIDER INFORMATION Provider Role Provider Contact Time CLARENCE LOPEZ MD ED Provider 09/14/15 10:09 VALARIE CENTENO HOSPICE OFFICE COORDINATOR Nurse 09/14/15 10:55 DIAGNOSIS Comment: PATIENT EDUCATION INFORMATION Instructions: Follow up: Source: [facility] [employer] Document Id: [id number] Valarie Centeno R.N. - 09/14/2015 1:14 PM CDT ED Discharge Instructions [address] [address] Name: GERMAN NOVAK Date of : 1970 12:00 AM Visit Date: 09/14/2015 10:07 AM [facility] Number: [id number] Address: [address] [place] [address] [place] [id number] Primary Care Provider: PCP, ELSEWHERE IMPORTANT: [facility] in [place] would like to thank you for allowing [...] if you dont have one. Go to [email or web address] and click on Create Your Account. Then, follow the directions to complete the online form. Youll be asked for your [facility] number which you can find at [...] ride home with a responsible democrat. I, ROEBER, GERMAN JATIN , or responsible democrat have received this information and my questions have been answered. I have discussed any challenges I see with this plan with the nurse or physician. Patient Signature or Responsible Democrat/Relationship Date Time Provider Signature Date Time IMPORTANT: [...] Democrat/Relationship Date Time Provider Signature Date Time Source: [facility] POWER[employer]ART Document Id: [id number] documented in this encounter Medications at Time [...] CENTENO RN - 09/14/2015 13:10 CDT [facility] Document Id: [id number] CDT!16 Valarie Centeno R.N. - 09/14/2015 1:10 PM CDT ED Treatments and Procedures ED Treatments and Procedures Entered On: 09/14/2015 13:11 CDT Performed On: 09/14/2015 13:10 CDT by VALARIE CENTENO RN Cardiac Monitoring Monitoring Lead : II Monitoring Lead Identity Management Developer : Discontinued Cardiac Rhythm Tech : Sinus [...] CENTENO RN - 09/14/2015 13:10 CDT Source: [employer] Document Id: [id number] CDT!13 Valarie Centeno R.N. - 09/14/2015 1:09 PM CDT ED Disposition Summary ED Disposition Summary Entered On: 09/14/2015 13:10 CDT Performed On: 09/14/2015 13:09 CDT by VALARIE CENTENO HOSPICE OFFICE COORDINATOR Disposition Summary Present in Room During Exam/Procedure : EMS Mode of Discharge : Stretcher Transportation : Ground ambulance Nurse Receiving Report : FLORENCIO Briseno RN- [place] [facility] Referral Date/Time Nurse Received Report : 09/14/2015 13:05 CDT Transporter : EMT, Transition Teacher Discharge From ED With : Sane Nurse Printed Discharge Instructions Given to Patient : No Reason Discharge Instructions Not Given : Transfer SMR-Cardiology Patient Status at Discharge from ED : Improved VALARIE CENTENO RN - 09/14/2015 13:09 CDT Source: [employer] Document Id: [id number] CDT!12 Valarie Centeno R.N. - 09/14/2015 12:16 [...] VALARIE CENTENO RN - 09/14/2015 12:16 CDT [place] Coma Eye Opening Response [place] : Spontaneously Best Verbal Response [place] : Oriented Best Motor Response Maame : Obeys simple commands [place] Coma Score : 15 VALARIE CENTENO RN - 09/14/2015 12:16 CDT GI Reassess GI Patient Stated Symptoms : Abdominal pain VALARIE CENTENO RN - 09/14/2015 12:16 CDT /OB Reassess Patient Stated Symptoms : None VALARIE CENTENO RN - 09/14/2015 12:16 CDT Integumentary Integumentary Patient Stated Symptoms : None VALARIE CENTENO GILES - 09/14/2015 12:16 CDT Source: [employer] POWERCHART Document Id: [id number] CDT!40 Valarie Centeno R.N. - 09/14/2015 10:44 AM CDT ED Primary Assessment Document Has Been Updated ED Primary Assessment Entered On: 09/14/2015 10:48 CDT Performed On: 09/14/2015 10:44 CDT by VALARIE CENTENO RN Reason For Visit (As Of: 09/14/2015 10:48:05 CDT) Problems(Active) Common migraine (SNOMED CT :19027398 ) Name of Problem: Common migraine ; Onset Date: Unknown ; Recorder: NELLIE JOHNSON RN; Confirmation: Confirmed ; Classification: Nursing ; Code: 10775388 ; Contributor System: [employer] ; Last Updated: 06/19/2010 11:18 CDT ; Life Cycle Status: Active ; Vocabulary:SNfromAtoB CT Echocardiogram abnormal (SNOMED CT :013330877 ) Name of Problem: Echocardiogram abnormal ; Onset Date: 06/20/2010 ; Recorder: JUVE CHRISTIANSEN DNP, FNP; Confirmation: Confirmed ; Classification: Medical ; Code: 070746671 ; Contributor System: [employer] ; Last Updated: 07/28/2013 8:54 CDT ; [...] History of - myocardial infarction (SNOMED CT :2046142483 ) Name of Problem: History of - myocardialinfarction ; Onset Date: 06/18/2010 ; Recorder: NICKY HUMPHREYS MD; Confirmation: Confirmed ; Classification: Medical ; Code: 7440172394 ; Contributor System: PowerChart ; Last Updated: 03/11/2013 14:45 EXTRACTION MACHINE OPERATOR ; 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 ; Life Cycle Status: Active ; Responsible Provider: NICKY MONTIEL MD; Vocabulary: SNOMED CT ; Comments: 04/24/2012 9:39 - NICKY MONTIEL MD NSTEMI 06/201003/11/2013 14:45 - JUVE CHRISTIANSEN DNP, LUMP RECEIVER #[address] elevation myocardial infarction secondary to coronary vasospasm Mrs. Novak was transferred from the [place] emerg[facility] cy department where he initial troponin [...] may contain vasoconstricting agents. Hyperlipidemia (SNOMED CT :29352648 ) Name of Problem: Hyperlipidemia ; Onset Date: 03/11/2013 ; Recorder: MAXIME VARGHESE RN; Confirmation: Confirmed ; Classification: Medical ; Code: 84408809 ; Contributor System: [employer] ; Last Updated: 03/11/2013 14:45 EXTRACTION MACHINE OPERATOR ; Life Cycle Date: 02/11/2012 ; Life [...] Medical ; Code: 296.30 ; Contributor System: Apparent ; Last Updated: 04/24/2012 13:29 EXTRACTION MACHINE OPERATOR ; 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 ; Life [...] PNED ; Probability: 0 ; Diagnosis Code: [id number] Triage Chief Complaint Description : See Triage Note Information Given By : Patient Present in Room During Exam/Procedure : Spouse Mode of Arrival ED : Private vehicle Track : Medical Languages : Belgian Patient Informed of Triage Location : Emergency [...] 10:44 CDT Maame Coma Eye Opening Response [place] : Spontaneously Best Verbal Response Maame : Oriented Best Motor Response Maame : Obeys simple commands [place] Coma Score : 15 VALARIE CENTENO RN [...] Acuity : 2 -Emergent Tracking Group : [facility] ED GEO CENTENORoxanna Gutierrez RN - [...] : Chest pain Nail Bed Color : [place] Capillary Refill : Less than 2 seconds [...] Integrity : Intact Mucous Membrane Color : [place] Mucous Membrane Description : Moist Skin Color [...] CENTENO RN - 09/14/2015 10:44 CDT [facility] Document Id: [id number] CDT!129 Valarie Centeno R.N. - 09/14/2015 10:20 [...] CENTENO RN - 09/14/2015 10:42 CDT Source: [facility] [employer] Document Id: [id number] CDT!17 Valarie Centeno R.N. - 09/14/2015 10:12 AM CDT ED Triage Assessment Document Has Been Updated ED Triage Assessment Entered On: 09/14/2015 10:42 CDT Performed On: 09/14/2015 10:12 CDT by VALARIE CENTENO RN Reason For Visit (As Of: 09/14/2015 10:42:53 CDT) Problems(Active) Common migraine (SNOMED CT :73120647 ) Name of Problem: Common migraine ; Onset Date: Unknown ; Recorder: NELLIE JOHNSON RN; Confirmation: Confirmed ; Classification: Nursing ; Code: 17345173 ; Contributor System: [employer] ; Last Updated: 06/19/2010 11:18 CDT ; Life Cycle Status: Active ; Vocabulary:[employer] CT Echocardiogram abnormal (SNOMED CT :027384804 ) Name of Problem: Echocardiogram abnormal ; Onset Date: 06/20/2010 ; Recorder: JUVE CHRISTIANSEN DNP, FNP; Confirmation: Confirmed ; Classification: Medical ; Code: 986112151 ; Contributor System: [employer] ; Last Updated: 07/28/2013 8:54 CDT ; [...] History of - myocardial infarction (SNOMED CT :8520607560 ) Name of Problem: History of - myocardialinfarction ; Onset Date: 06/18/2010 ; Recorder: NICKY HUMPHREYS MD; Confirmation: Confirmed ; Classification: Medical ; Code: 7676552912 ; Contributor System: [employer] ; Last Updated: 03/11/2013 14:45 EXTRACTION MACHINE OPERATOR ; 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 ; Life Cycle Status: Active ; Responsible Provider: NICKY MONTIEL MD; Vocabulary: SNOMED CT ; Comments: 04/24/2012 9:39 - NICKY MONTIEL MD NSTEMI 06/201003/11/2013 14:45 - JUVE [facility]STIANSEN [facility], LUMP RECEIVER #[address] elevation myocardial infarction secondary to coronary vasospasm Mrs. Novak was transferred from the [facility] cy department where he initial troponin [...] may contain vasoconstricting agents. Hyperlipidemia (SNOMED CT :45430006 ) Name of Problem: Hyperlipidemia ; Onset Date: 03/11/2013 ; Recorder: MAXIME VARGHESE RN; Confirmation: Confirmed ; Classification: Medical ; Code: 38989806 ; Contributor System: [employer] ; Last Updated: 03/11/2013 14:45 EXTRACTION MACHINE OPERATOR ; Life Cycle Date: 02/11/2012 ; Life [...] Medical ; Code: 296.30 ; Contributor System: Apparent ; Last Updated: 04/24/2012 13:29 EXTRACTION MACHINE OPERATOR ; 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 ; Life [...] PNED ; Probability: 0 ; Diagnosis Code: [id number] Triage Chief Complaint Description : 45 yo [...] Private vehicle Track : Medical Languages : Belgian Vital Signs Assessed : Yes Treatments Prior [...] Acuity : 2 -Emergent Tracking Group : [facility] ED VALARIE CENTENO RN - 09/14/2015 [...] CENTENO RN - 09/14/2015 10:39 CDT Source: [employer] Document Id: [id number] CDT!58 Valarie Centeno R.N. - 09/14/2015 10:12 AM CDT ED Treatments and Procedures ED Treatments and Procedures Entered On: 09/14/2015 10:44 CDT Performed On: 09/14/2015 10:12 CDT by VALARIE CENTENO RN Cardiac Monitoring Monitoring Lead : II Monitoring Lead Identity Management Developer : Initiated Cardiac Rhythm Tech : Sinus bradycardia VALARIE CENTENO RN - 09/14/2015 10:43 CDT Source: [facility] POWERCHART Document Id: [id number] CDT!5 Clarence Lopez M.D. - 09/14/2015 10:09 [...] at 33 Years. LEEP procedure of cervix (01648915) on 08/22/1996 at 26 Years. Total abdominal hysterectomy (corpus and cervix), with or without removal of tube(s), with or without removal of ovary(s); (67699). Comments: 07/13/2010 11:39 - RAVEN DELUNA LPN [...] normal sinus rhythm, No ST-T changes, normal NJ & QRS intervals. Reexamination/ Reevaluation First troponin is negative. Discussed the case with Dr. Paul Jones (Cardiology). He would suggest to send the patient to [place] for further care. Awaiting CT results and will discus with patient. Contacted [facility] and discussed with Dr. Cricket Kearney. The [...] LOPEZ MD On: 09/14/2015 01:54 PM Source: [facility] POWERCHART Document Id: [id number] documented in this encounter Miscellaneous Notes Transfer of Care - Valarie Centeno R.N. - 09/14/2015 1:11 PM CDT Patient Transfer Patient Transfer Entered On: 09/14/2015 13:13 CDT Performed On: 09/14/2015 13:11 CDT by VALARIE CENTENO RN Patient Condition and Reason for Transfer Reason for Transfer : Medically indicated transfer, Patient requests transfer, Patient's legal outbound call center representative requests transfer Patient's Condition for Transfer [...] LOPEZ MD Receiving Facility Accepting Transfer : [facility]-cARDIOLOGY Apparatus Operator of receiving facility accepting patient : [...] orders Required Personnel for Transfer : EMT, Transition Teacher VALARIE CENTENO RN - 09/14/2015 13:11 CDT [...] CENTENO RN - 09/14/2015 13:11 CDT Source: [employer] Document Id: [id number] CDT!31 Miscellaneous - Valarie Centeno R.N. - 09/14/2015 1:11 PM CDT Valuables/Belongings Valuables/Belongings Entered On: 09/14/2015 13:11 CDT Performed On: 09/14/2015 13:11 CDT by VALARIE CENTENO RN Valuables/Belongings Belongings Sent Home With : ALL BELONGINGS SENT WITH PATIENT/FAMILY Home Medication Disposition : None brought in with patient VALARIE CENTENO RN - 09/14/2015 13:11 CDT Source: [employer] Document Id: [id number] CDT!4 Miscellaneous - Conversion, Historical Provider Ser - 09/14/2015 1:05 PM CDT Coding Summary-Paper Based CODING DATE: 09/21/2015 FINAL [facility] STATUS: Disch/Trans ShortTerm Gen Hosp-Inpt Care [...] LIZA Date Saved: 09/21/2015 12:30 pm Source: [facility] [employer] Document Id: [id number] Miscellaneous - Valarie Centeno RSonjaN. - 09/14/2015 [...] Control : 21 Lynx Visit Level : 76922 Level 5 Treatments Prior to Arrival : Aspirin VALARIE CENTENO RN - 09/14/2015 13:11 CDT Chief Complaint 11.0 Reason For Visit Category : Cardiorespiratory TVL Calculation : 20 ED Chief Complaint Cardiorespiratory 11.0 : Chest pain TVL for Facility Charge Ticket Dx : Level 5 VALARIE CENTENO RN - 09/14/2015 13:11 CDT Source: [employer] Document Id: [id number] CDT!23 documented in this encounter Plan of [...] Complete, Includes Microscopic (09/14/2015 10:29 AM CDT) [facility] Method Time Signature Clarity Slightly Clear POWERCHART Cloudy (A) HXUr Color Yellow Colorless POWERCHART Specific 1.020 POWERCHART Homer, POCT, U pH, POCT, Urine 7.5 <5.0 [...] X109L Erythrocytes 4.48 3.90 - 5.03 POWERCHART Z4837D Hemoglobin 14.7 12.0 - 15.5 POWERCHART GDL [...] M.D. LAB BLOOD ADD-ON Performing Organization Address City/[facility]/ZIP Code Phon e Number POWERCHART Bilirubin Direct (09/14/2015 10:20 AM CDT) P athologist Signature Bilirubin, 0.1 0.0 - 0.3 POWERCHART Direct, S MGDL Specimen (Source) Anatomical Collection Method Collection Time Re ceived Time Location / / Volume Laterality Blood 09/14/2015 10:20 AM CDT Clarence Lopez M.D. LAB BLOOD ADD-ON Performing Organization Address City/[facility]/ZIP Code Phon e Number POWERCHART Lipase (09/14/2015 10:20 AM CDT) P athologist Signature Lipase, S 33.3 10.0 - 73.0 POWERCHART UL Specimen (Source) Anatomical Collection Method Collection Time Re ceived Time Location / / Volume Laterality Blood 09/14/2015 10:20 AM CDT Clarence Lopez M.D. LAB BLOOD ADD-ON Performing Organization Address [facility]/ZIP Code Phon e Number POWERCHART ALT (Alanine Aminotransferase) (09/14/2015 10:20 AM CDT) P athologist Signature Alanine 26 7 - 45 POWERCHART Amniotransferas UNITL e, LD Specimen (Source) Anatomical Collection Method Collection Time Re ceived Time Location / / Volume Laterality Blood 09/14/2015 10:20 AM CDT Clarence Lopez M.D. LAB BLOOD ADD-ON Performing Organization Address City/[facility]/ZIP Code Phon e Number POWERCHART AST (Aspartate Aminotransferase) (09/14/2015 10:20 AM CDT) Patholo gist Method Time Signature Aspartate 28 8 - 43 POWERCHART Aminotransferase UNITL (AST), S Specimen (Source) Anatomical Collection Method Collection Time Re ceived Time Location / / Volume Laterality Blood 09/14/2015 10:20 AM CDT Clarence Lopez M.D. LAB BLOOD ADD-ON Performing Organization Address City/[facility]/ZIP Code Phon e Number POWERCHART BMP (Basic [...] POWERCHART MMOLL eGFR >60 >=60 POWERCHART Black/ [id number] Lao Glucose 103 70 - 139 POWERCHART MGDL HXeGFR (MDRD) >60 >=60 POWERCHART [id number] Specimen (Source) Anatomical Collection Method Collection Time [...]
--- OUTSIDE RECORDS SUMMARY | 2022-02-12 17:40 | XMS_ITS | Encounter Summary ---
:1970 Author Organization [facility] Address [address] [place] [address] Care Team Providers Name Role Phone Unavailable Primary Care Provider Unavailable Encounter Details Date Type Department Care Team Description 03/11/2013 Hospital En[facility] Tiffanie Christiansen, ALVERTO, C.N.P., D.N.P. [address] [place], [place] [phone] (Wo rk) Social History [...] Christiansen D.N.P., C.N.P. - 03/16/2013 7:02 AM COVERSTITCH ELASTIC ATTACHER Normal Results Letter 16 March 2013 GERMAN NOVAK [address] [facility] [id number] Dear GERMAN NOVAK, I am pleased to [...] 03/11/2013 <=30 - Sincerely, TIFFANIE CHRISTIANSEN [address] [place] [address] Electronic Signature Electronically Signed By: TIFFANIE CHRISTIANSEN DNP, FNP On: 16 March 2013 This document has images extracted. Source: [facility] [employer] Document Id: [id number] Electronically signed by Conversion, [facility] Insurance Licensing Supervisor [id number] at 08/06/2016 2:46 PM CDT Miscellaneous - Tiffanie Christiansen, D.N.P., C.N.P. - 03/11/2013 10:32 AM COVERSTITCH ELASTIC ATTACHER Normal Results Letter 11 March 2013 GERMAN NOVAK [address] [facility] [id number] Dear GERMAN NOVAK, I apologize, as I [...] lipoprotein A results when they return from [place]. Please follow up with us as we [...] 0.30 - 5.00 Sincerely, TIFFANIE CHRISTIANSEN [address] [place] [address] Electronic Signature Electronically Signed By: TIFFANIE CHRISTIANSEN DNP, FNP On: 11 March 2013 This document has images extracted. Source: [facility] [employer] Document Id: [id number] Electronically signed by Conversion, [facility] Insurance Licensing Supervisor [id number] at 08/06/2016 2:46 PM CDT documented in this encounter Plan of Treatment Not on filedocumented as of this encounter Procedures Procedure Name Priority Date/Time Associated Comments Diagnosis LIPID PANEL, S Routine 03/11/2013 9:24 AM Results for this COVERSTITCH ELASTIC ATTACHER procedure are i n the results section. LIPOPROTEIN (A), S/P Routine 03/11/2013 9:24 AM R esults for this COVERSTITCH ELASTIC ATTACHER procedure are i n the results section. THYROID-STIMULATING Routine 03/11/2013 9:24 AM Re sults for this HORMONE-SENSITIVE COVERSTITCH ELASTIC ATTACHER procedure are in (S-TSH) the results section. documented in this encounter Results Thyroid-Stimulating Hormone-Sensitive (s-TSH) (03/11/2013 9:24 AM COVERSTITCH ELASTIC ATTACHER) P athologist Signature TSH 1.27 0.30 - 5.00 POWERCHART (Thyrotropin) MCIUML Specimen (Source) Anatomical Collection Method Collection Time Re ceived Time Location / / Volume Laterality Blood 03/11/2013 9:24 AM COVERSTITCH ELASTIC ATTACHER Tiffanie Christiansen APRN, C.N.P., D.N.P. LAB BLOOD ADD- ON Performing Organization Address City/State/[facility] Code Phon e Number POWERCHART (ABNORMAL) Lipid Panel (03/11/2013 9:24 AM COVERSTITCH ELASTIC ATTACHER) P athologist Signature Cholesterol, 271 (H) 0 [...] / Volume Laterality Blood 03/11/2013 9:24 AM COVERSTITCH ELASTIC ATTACHER Tiffanie Christiansen APRN, C.N.P., D.N.P. LAB BLOOD ADD- ON Performing Organization Address City/State/ZIP Code Phon e Number POWERCHART Lipoprotein (a) (03/11/2013 9:24 AM COVERSTITCH ELASTIC ATTACHER) P athologist Signature Lp(a) 15 <=30 MGDL POWERCHART Cholesterol Comment: Test Performed by: [address] [address] Specialist Field Engineer: Babatunde elder III, M.D. Specimen (Source) Anatomical Collection Method Collection Time Re ceived Time Location / / Volume Laterality Blood 03/11/2013 9:24 AM COVERSTITCH ELASTIC ATTACHER Tiffanie Christiansen APRN, C.N.P., D.N.P. LAB BLOOD ADD- ON Performing Organization Address City/State/ZIP Code Phon e Number POWERCHART documented in this encounter Visit Diagnoses Not on filedocumented in this encounter Additional Health Concerns Assessment Noted Time PHQ-9 Depression Total Score: 10 03/11/2013 2:22 PM CS T documented as of this encounter
--- OUTSIDE RECORDS SUMMARY | 2022-02-12 17:40 | XMS_ITS | Encounter Summary ---
:1970 Author Organization [facility] Address [address] [place] [address] Care Team Providers Name Role Phone Unavailable Primary Care Provider Unavailable Encounter Details Date Type Department Care Team Description 04/10/2012 Hospital Encounter HX [facility] ED Chris Cardenas M.D. [address] [place] [address] ERNESTO Ramirez [phone] (Wo rk) Social History Tobacco Use Types [...] Comments Blood Pressure 127/86 04/10/2012 1:21 PM [facility] Pulse - - Temperature - - Respiratory Rate 20 04/10/2012 1:21 PM [facility] Oxygen Saturation - - Inhaled Oxygen Concentration - - Weight 92.8 kg (204 lb 9.4 oz) 04/10/2012 10:00 AM [facility] Height 173 cm (5' 8.11) 04/10/2012 10:00 AM [facility] Body Mass Index 31.01 04/10/2012 10:00 AM [facility] documented in this encounter Discharge Summaries Valarie Centeno RSonjaN. - 04/10/2012 1:34 PM CST ED Discharge Instructions [address] [address] Name: GERMAN NOVAK Date of : 1970 12:00 AM Visit Date: 04/10/2012 9:53 AM [facility] Number: [id number] Address: [address] [place] [address] [phone] Primary Care Provider: LAVELL BUCHANAN RN, COSTUME SPECIALIST IMPORTANT: [facility] in [place] would like to thank you for allowing us to assist you with your healthcare needs. The following includes patient education materials and informationregarding your injury/illness. Chief Complaint: Chest pain; HEART Follow-Up Instructions: With: Address: When: LAVELL BUCHANAN [address] [place] [address] Business (1) Within As Needed Comments: Patient Education Materials: [id number] CHEST PAIN, NONCARDIAC Based on your visit [...] pain or redness in one leg ?? [phone] [employer], [address] [place] [address], [place] [address]. All rights reserved. This information is not [...] Party/Relationship Date Time Provider Signature Date Time Medication [...] a ride home with a responsible republican. MURALI Romo WENDY SUE , or responsible republican have received this information and my questions have been answered. I have discussed any challenges I see with this plan with the nurse or physician. Patient Signature or Responsible Alliance Party/Relationship Date Time Provider Signature Date Time This document has images extracted. Please consider using [employer] for all your patient education needs. Source: [facility] [employer] Document Id: [id number] LER Valarie Centeno R.N. - 04/10/2012 1:34 PM CST ED Depart Summary [facility] Emergency Department Clinical Discharge Summary PERSON INFORMATION Name GERMAN NOVAK Age 41 Years 1970 12:00 AM Sex Female Language Burkinan PCP LAVELL BUCHANAN RN, COSTUME SPECIALIST Marital Status Visit Id Visit Reason Chest pain; HEART Specialty Enc Type Emergency Med Service Emergency Medicine Referred by Track Group [facility] ED Discharge 04/10/2012 1:32 PM Tracking Id [id number] Checkout 04/10/2012 1:32 PM Checkin 04/10/2012 9:53 AM Acuity 2 -Emergent Dispo Type * Discharged to Home or Self Care Arrival 04/10/2012 9:53 AM Reg Status Complete LOS 000 03:39 Address: [address] [place] [address] [phone] Comment: PROVIDER INFORMATION Provider Role Provider Contact Time DIAGNOSIS Precordial chest pain 786.51 Comment: PATIENT EDUCATION INFORMATION Instructions: CHEST PAIN, NonCardiac Follow up: With: Address: When: LAVELL CHANEL [address] [place] [id number] [facility] (5) Within As Needed Comments: Source: [facility] [employer] Document Id: [id number] LER documented in this encounter Nursing Notes Valarie Centeno R.N. - 04/10/2012 1:20 PM CST ED Pain Assessment ED Pain Assessment Entered On: 04/10/2012 13:20 [facility] Performed On: 04/10/2012 13:20 [facility] by VALARIE CENTENO RN Pain Assessment Pain Symptoms : No VALARIE CENTENO RN - 04/10/2012 13:20 [facility] Source: [facility] [employer] Document Id: [id number] LER Valarie Centeno R.N. - 04/10/2012 10:40 AM CST PRN Response PRN Response Entered On: 04/10/2012 10:48 [facility]ER Performed On: 04/10/2012 10:40 [facility] by VALARIE CENTENO RN PRN Medication Effectiveness Evaluation PRN Medication Effective : Yes Post Medication Pain Assessment : 0 VALARIE CENTENO RN - 04/10/2012 10:48 [facility]ER Source: [facility] [employer] Document Id: [id number] LER William Arredondo R.N. - 04/10/2012 10:20 AM CST ED Primary Assessment ED Primary Assessment Entered On: 04/10/2012 10:30 [facility]ER Performed On: 04/10/2012 10:20 [facility] by WILLIAM ARREDONDO RN Reason For Visit Problems(Active) Common migraine Name of Problem: Common migraine ; Onset Date: Unknown ; Recorder: NELLIE JOHNSON RN;Confirmation: Confirmed ; Classification: Nursing ; Code: 324653 ; Contributor System: [employer] ; Last Updated: 06/19/2010 11:18 CDT ; Life Cycle Status: Active ; Vocabulary: SNOMED CT Hyperlipidemia Name of Problem: Hyperlipidemia ; Recorder: MAXIME VARGHESE RN; Confirmation: Confirmed ; Classification: Medical ; Code: 844237 ; Contributor System: [employer] ; Last Updated: 02/14/2012 13:41 [facility]AR[facility]ER ; Life Cycle Date: 02/11/2012 ; Life Cycle Status: Active ; Responsible Provider: MAXIME VARGHESE RN; Vocabulary: SNOMED CT ; Comments: 02/14/2012 13:17 - FRANCISCO COLINDRES DOLL MAKER unknown date of dx Diagnoses(Active) Chest pain Date: 04/10/2012 ; Diagnosis Type: Reason For Visit ; Confirmation: Complaint of ; Clinical Dx: Chest pain ; Classification: Medical ; Clinical Service: Emergency medicine ; Code: PNED ; Probability: 0 ; Diagnosis Code: [id number] Triage Chief Complaint Description : see triage Information Given By : Patient, Significant other Accompanied By : Significant other Mode of Arrival ED : Private vehicle Track : Medical Languages : Burkinan Patient Informed of Triage Location : Emergency department Vital Signs Assessed : Yes GCS Assessed : Yes WILLIAM ARREDONDO RN - 04/10/2012 10:20 [facility]ER Vital Signs Temperature Core : 37.6C(Converted to: 99.7DegF) Apical Heart Rate : 78/min Respiratory Rate : 20/min Systolic Blood Pressure : 132mmHg Diastolic Blood Pressure : 93mmHg (>HHI) NIBP Mean : 106mmHg BP Location : Left upper extremity SpO2 : 99% Oxygen Saturation Monitoring Frequency : Continuous Oxygen Flow Rate : 2L/min Oxygen Therapy : Nasal Cannula WILLIAM ARREDONDO RN - 04/10/2012 10:20 [place]ER [place] Coma Eye Opening Response Maame : Spontaneously Best Verbal Response [place] : Oriented Best Motor Response [place] : Obeys simple commands Maame Coma Score : 15 WILLIAM ARREDONDO RN - 04/10/2012 10:20 [facility] Pain Assessment Pain Symptoms : No WILLIAM ARREDONDO RN - 04/10/2012 10:20 [facility] ED Physician Notification Time ED Physician Notification Time : 04/10/2012 10:00 [facility] WILLIAM ARREDONDO RN - 04/10/2012 10:20 [facility] SAEED SAEED Level 1 : No SAEED Level 2 : No SAEED Level 3 : Many Vital Signs SAEED : Danger zone (HR > 100, RR > 20, SaO2 < 92%) WILLIAM ARREDONDO RN - 04/10/2012 10:20 [facility] DCP GENERIC CODE Tracking Acuity : 2 -Emergent Tracking Group : [facility] ED WILLIAM ARREDONDO RN - 04/10/2012 10:20 [facility] Allergy Latex Reaction : No WILLIAM ARREDONDO RN - 04/10/2012 10:20 [facility] Allergies (Active) morphine Estimated Onset Date: Unspecified ; Created By: RAVEN DELUNA LPN; Reaction Status: Active ; Category: Drug ; Substance: morphine ; Type: Allergy ; Updated By: RAVEN DELUNA LPN; Reviewed Date: 04/10/2012 10:21 [facility] narcotic analgesics Estimated Onset Date: Unspecified ; Reactions: itch ; Created By: NELLIE JOHNSON RN; Reaction Status: Active ; Category: Drug ; Substance: narcotic analgesics ; Type: Sensitivity ; Updated By: NELLIE JOHNSON RN; Reviewed Date: 04/10/2012 10:21 [facility] Percocet 5/325 Estimated Onset Date: Unspecified ; Created By: RAVEN DELUNA LPN; Reaction Status:Active ; Category: Drug ; Substance: Percocet 5/325 ; Type: Allergy ; Updated By: RAVEN DELUNA LPN; Reviewed Date: 04/10/2012 10:21 [facility] Toradol Estimated Onset Date: Unspecified ; Created By: RAVEN DELUNA LPN; Reaction Status: Active; Category: Drug ; Substance: Toradol ; Type: Allergy ; Updated By: RAVEN DELUNA LPN; Reviewed Date: 04/10/2012 10:21 [facility] ID Screen Drug Resistant Organism : No WILLIAM ARREDONDO RN - 04/10/2012 10:20 [facility] Immunizations Immunizations Current : Yes Last Tetanus : < 5 years Pneumovac : None Influenza : Last year WILLIAM ARREDONDO RN - 04/10/2012 10:20 [facility] Respiratory Airway : Patent Respirations : Unlabored Respiratory Pattern : Regular Oxygen Start Time : 04/10/2012 10:15 [facility] Oxygen Therapy : Nasal Cannula Oxygen Flow Rate : 2L/min Respiratory Detailed Assessment : Yes WILLIAM ARREDONDO RN - 04/10/2012 10:20 [facility] Resp Detailed Respiratory Patient Stated Symptoms : Shortness of breath Distress : None Cough : None Sputum Amount : None WILLIAM ARREDONDO RN - 04/10/2012 10:20 [facility] Breath Sounds Assessment Grid BUL : Clear BLL : Diminished WILLIAM ARREDONDO RN - 04/10/2012 10:20 [facility] Cardiovascular Heart Rhythm : Regular Skin Color : Normal for ethnicity Skin Description : Dry Skin Temperature : Warm Cardiovascular Detailed Assessment : Yes Monitoring Lead : I Monitoring Lead Caustic Strength Inspector : Initiated WILLIAM ARREDONDO RN - 04/10/2012 10:20 [facility] CV Detailed CV Patient Stated Symptoms : Palpitations Nail Bed Color : [place] Capillary Refill : Less than 2 seconds Heart Sounds ICU : S1S2 Cardiac Rhythm : Sinus rhythm WILLIAM ARREDONDO RN - 04/10/2012 10:20 [facility] Edema Detailed Grid Pretibial Edema Bilateral : None WILLIAM ARREDONDO RN - 04/10/2012 10:20 [facility] Radial Pulse, Left : 2+ Normal Radial Pulse, Right : 2+ Normal WILLIAM ARREDONDO RN - 04/10/2012 10:20 [facility] Neurological Last Well Time Known : Not applicable Level of Consciousness : Alert Orientation : Oriented x 3 Characteristics of Speech : Appropriate for age Neuro Patient Stated Symptoms : None Gait : Steady Swallowing Difficulty/Aspiration Risk : None WILLIAM ARREDONDO RN - 04/10/2012 10:20 [facility] ED Psychosocial Affect/Behavior : Calm, Cooperative, Appropriate Domestic Abuse Concerns : None Emotional Support Available : Yes WILLIAM ARREDONDO RN - 04/10/2012 10:20 [facility] Gastrointestinal Nutrition ED : Adequate WILLIAM ARREDONDO RN - 04/10/2012 10:20 [facility] /OB Assessment Patient Stated Symptoms : None WILLIAM ARREDONDO RN - 04/10/2012 10:20 [facility] Integumentary Integumentary Patient Stated Symptoms : None Skin Turgor : Elastic Skin Integrity : Intact Mucous Membrane Color : [place] Mucous Membrane Description : Moist Skin Color : Normal for ethnicity Skin Description : Dry Skin Temperature : Warm WILLIAM ARREDONDO RN - 04/10/2012 10:20 [facility] Musculoskeletal Fall Prevention Education Provided : WILLIAM COSBY RN - 04/10/2012 10:20 [facility]ER Social Habits Tobacco Use/Currently Using : Yes Exposure to Tobacco Smoke : Care provider denies smoking in home Smoking Status : Current some day smoker WILLIAM ARREDONDO RN - 04/10/2012 10:20 [facility] Tobacco Use Grid Type : Cigarettes Last Use : Last PM WILLIAM ARREDONDO RN - 04/10/2012 10:20 [facility] Alcohol Use Grid Alcohol Use : Yes Last Use : Last PM WILLIAM ARREDONDO RN - 04/10/2012 10:20 [facility] Recreational Drug Use Grid Drug Use : None WILLIAM ARREDONDO RN - 04/10/2012 10:20 [facility] Peripheral IV Peripheral IV Assess/Intervention Grid Peripheral IV #1 Peripheral IV #2 IV Activity : Start Start Number of Attempts : 1 1 Date of Insertion : 04/10/2012 [facility]ER 04/10/2012 [facility] IV Site : Antecubital Antecubital Laterality : [...] set WILLIAM ARREDONDO RN - 04/10/2012 10:20 [facility] WILLIAM ARREDONDO RN - 04/10/2012 10:20 [facility]ER Source: [employer] Document Id: [id number] LER documented in this encounter ED Notes Valarie Centeno R.N. - 04/10/2012 1:33 PM CST ED Treatments and Procedures ED Treatments and Procedures Entered On: 04/10/2012 13:33 [facility]ER Performed On: 04/10/2012 13:33 [facility] by VALARIE CENTENO RN Oxygen Therapy Oxygen Start Time : 04/10/2012 10:15 [facility] Oxygen Therapy : Room air Oxygen Stop Time : 04/10/2012 10:59 [facility]ER Oxygen Flow Rate : 2L/min VALARIE CENTENO RN - 04/10/2012 13:33 [facility] Peripheral IV Peripheral IV Assess/Intervention Grid Peripheral IV #1 Peripheral IV #2 IV Activity : Discontinue Discontinue Number of Attempts : 1 1 Date of Insertion : 04/10/2012 [facility]ER 04/10/2012 [facility] IV Site : Antecubital Antecubital Laterality : Left Right Catheter Size : 18 18 Catheter Type : Over the needle Over the needle VALARIE CENTENO RN - 04/10/2012 13:33 [facility]ER VALARIE CENTENO RN - 04/10/2012 13:33 [facility]ER Source: [employer] Document Id: [id number] LER Valarie Centeno R.N. - 04/10/2012 1:31 PM CST ED Treatments and Procedures ED Treatments and Procedures Entered On: 04/10/2012 13:32 [facility]ER Performed On: 04/10/2012 13:31 [facility]ER by VALARIE CENTENO RN Cardiac Monitoring Monitoring Lead : I Monitoring Lead Caustic Strength Inspector : Discontinued VALARIE CENTENO RN - 04/10/2012 13:31 [facility] Oxygen Therapy Oxygen Start Time : 04/10/2012 10:15 [facility]ER Oxygen Therapy : Room air Oxygen Flow Rate : 2L/min VALARIE CENTENO RN - 04/10/2012 13:31 [facility] Peripheral IV Peripheral IV Assess/Intervention Grid Peripheral IV #1 Peripheral IV #2 IV Activity : Discontinue Discontinue Number of Attempts : 1 1 Date of Insertion : 04/10/2012 [facility]ER 04/10/2012 [facility] IV Site : Antecubital Antecubital Laterality : Left Right Catheter Size : 18 18 Catheter Type : Over the needle Over the needle Comments (Comment: iv dc cannula intact [VALARIE CENTENO RN - 04/10/2012 13:31 [facility]ER] ) (Comment: iv dc cannula intact [VALARIE CENTENO RN - 04/10/2012 13:31 PEAR[facility]ER] ) VALARIE CENTENO RN - 04/10/2012 13:31 [facility]ER VALARIE CENTENO RN - 04/10/2012 13:31 [facility]ER Source: [facility] POWERCHART Document Id: [id number] LER Valarie Centeno R.N. - 04/10/2012 12:59 PM CST ED Nurse Reassess ED Nurse Reassess Entered On: 04/10/2012 13:00 [facility]ER Performed On: 04/10/2012 12:59 [facility]ER by VALARIE CENTENO RN Pain Assessment Pain Symptoms : No VALARIE CENTENO RN - 04/10/2012 12:59 [facility]ER Resp Reassess Respiratory Patient Stated Symptoms : None VALARIE CENTENO RN - 04/10/2012 12:59 [facility] CV Reassess CV Patient Stated Symptoms : None VALARIE CENTENO RN - 04/10/2012 12:59 [facility] Neuro Reassess Last Well Time Known : Not applicable Orientation : Oriented x 3 Characteristics of Speech : Appropriate for age Level of Consciousness : Alert Neuro Patient Stated Symptoms : None Gait : Steady VALARIE CENTENO RN - 04/10/2012 12:59 [facility]AR[facility]ER Maame Coma Eye Opening Response Maame : Spontaneously Best Verbal Response [place] : Oriented Best Motor Response Maame : Obeys simple commands [place] Coma Score : 15 VALARIE CENTENO RN - 04/10/2012 12:59 [facility] Behavioral Health Screen/Safety Reassmt Affect/Behavior : Calm, Cooperative, Appropriate VALARIE CENTENO RN - 04/10/2012 12:59 [facility] GI Reassess GI Patient Stated Symptoms : None VALARIE CENTENO RN - 04/10/2012 12:59 [facility] /OB Reassess Patient Stated Symptoms : None VALARIE CENTENO RN - 04/10/2012 12:59 [facility]ER Source: [employer] Document Id: [id number] LER Elvis Cardenas M.D. - 04/10/2012 12:11 PM CST ED Disposition Summary ED Disposition Summary Entered On: 04/10/2012 12:12 [facility]ER Performed On: 04/10/2012 12:11 [facility] by ELVIS CARDENAS MD ED Disposition Summary Accompanied By : Spouse Mode of Discharge : Ambulatory Discharge From ED With : Home Med List Printed Discharge Instructions Given to Patient : Yes Patient Status at Discharge from ED : Improved ELVIS CARDENAS MD - 04/10/2012 12:11 [facility]ER Source: [employer] Document Id: [id number] LER Valarie Centeno R.N. - 04/10/2012 11:45 AM CST ED Treatments and Procedures ED Treatments and Procedures Entered On: 04/10/2012 12:06 [facility]ER Performed On: 04/10/2012 11:45 [facility] by VALARIE CENTENO RN Ambulate Ambulation Distance : 200m Ambulation Patient Effort : Good Assistive Device : None Ambulation Patient Response : No shortness of breath/ no chest pain Ambulation Treatment Response : Expected Activity Assistance : Independent VALARIE CENTENO RN - 04/10/2012 12:02 [facility]ER Source: [facility]OWER[facility]ART Document Id: [id number] LER Valarie Centeno R.N. - 04/10/2012 11:42 AM CST ED Nurse Reassess ED Nurse Reassess Entered On: 04/10/2012 11:43 [facility]ER Performed On: 04/10/2012 11:42 [facility]ER by VALARIE CENTENO RN Pain Assessment Pain Symptoms : No VALARIE CENTENO RN - 04/10/2012 11:42 [facility]ER Comfort Measures Comfort Measures Response : Comfort level increased VALARIE CENTENO RN - 04/10/2012 11:42 [facility]ER Resp Reassess Respiratory Patient Stated Symptoms : None Distress : None Airway : Patent Respiratory Pattern : Regular Respirations : Unlabored Cough : None Sputum Amount : None VALARIE CENTENO RN - 04/10/2012 11:42 [facility]ER CV Reassess CV Patient Stated Symptoms : None Skin Color : Normal for ethnicity Skin Description : Dry Skin Temperature : Warm Nail Bed Color : [place] Capillary Refill : Less than 2 seconds Heart Rhythm : Regular Monitoring Lead : I Cardiac Rhythm : Sinus rhythm VALARIE CENTENO RN - 04/10/2012 11:42 [facility]ER Neuro Reassess Last Well Time Known : Not applicable Orientation : Oriented x 3 Characteristics of Speech : Appropriate for age Level of Consciousness : Alert Neuro Patient Stated Symptoms : None Gait : Steady VALARIE CENTENO RN - 04/10/2012 11:42 [facility]ER Maame Coma Eye Opening Response [place] : Spontaneously Best Verbal Response [place] : Oriented Best Motor Response [place] : Obeys simple commands Maame Coma Score : 15 VALARIE CENTENO RN - 04/10/2012 11:42 [facility] Behavioral Health Screen/Safety Reassmt Affect/Behavior : Calm, Cooperative, Appropriate VALARIE CENTENO RN - 04/10/2012 11:42 [facility] GI Reassess GI Patient Stated Symptoms : None VALARIE CENTENO RN - 04/10/2012 11:42 [facility] /OB Reassess Patient Stated Symptoms : None VALARIE CENTENO RN - 04/10/2012 11:42 [facility] Integumentary Integumentary Patient Stated Symptoms : None VALARIE CENTENO RN - 04/10/2012 11:42 [facility] Document Id: [id number] LER Valarie Centeno R.N. - 04/10/2012 10:59 AM CST ED Treatments and Procedures ED Treatments and Procedures Entered On: 04/10/2012 10:59 [facility]ER Performed On: 04/10/2012 10:59 [facility] by VALARIE CENTENO RN Oxygen Therapy Oxygen Start Time : 04/10/2012 10:15 [facility]ER Oxygen Therapy : Nasal Cannula Oxygen Stop Time : 04/10/2012 10:59 [facility]ER Oxygen Flow Rate : 2L/min VALARIE CENTENO RN - 04/10/2012 10:59 [facility]ER Source: [facility] Document Id: [id number] LER Elvis Cardenas M.D. - 04/10/2012 10:42 AM [...] Note : Chief Complaint Description. 04/10/2012 10:20 [facility]ER Chief Complaint Description see triage 04/10/2012 10:00 [facility]ER Chief Complaint Description 41 year old female [...] 08/22/1998 CDT, Ad hoc dose () 05/19/2002 PE[facility]ER, Ad hoc dose() 08/18/2002 CDT, Ad hoc dose () 09/27/2002 CDT. Future No future immunizations have been selected or recorded. Menstrual history: Unknown. history: not currently . Past Medical/ Family/ Social History Medical history: . No active or resolved past medical history items have been selected or recorded. Surgical history: . LEEP procedure of cervix ([id number]) in 1996 at 26 Years. Total abdominal hysterectomy (corpus and cervix), with or without removal of tube(s), with or without removal of ovary(s); ([id number]). Comments: 07/13/2010 11:39 - RAVEN DELUNA LPN date unknown Family history: Not significant. Social history: Alcohol use: Occasionally, Tobacco use: Occasionally, Drug use: Denies, Occupation: Employed, Family/social situation: . Problem list: . Problem list reviewed. Physical Examination Vital Signs Vital Signs. 04/10/2012 10:20 [facility]ER Temperature Core 37.6 C Apical Heart Rate 78 /min Respiratory Rate 20 /min SpO2 99 % Systolic Blood Pressure 132 mmHg Diastolic Blood Pressure 93 mmHg >HHI Mean Arterial Pressure 106 mmHg BP Location Left upper 04/10/2012 10:00 [facility]ER Temperature Core 37.5 C Apical Heart Rate 84 /min Respiratory Rate 24 /min HI SpO2 97 % Systolic Blood Pressure 135 mmHg Diastolic Blood Pressure 84 mmHg Mean Arterial Pressure 101 mmHg BP Location Left upper Measurements. 04/10/2012 10:00 PEARLER Height 173 cm Height Source Stated Dosing Weight 92.8 kg Actual Weight 92.8 kg Weight Source Bed scale Body Mass Index 31.01 kg/m2 SpO2. 04/10/2012 10:20 [facility]ER SpO2 99 % 04/10/2012 10:00 [facility]ER SpO2 97 % General: Alert and mild [...] Laboratory: TSH (Order Processing): Stat, 04/10/2012 11:12 [facility]ER, Once Patient Care: ED ACS (STEMI, NSTEMI, UA) (Order Processing) Vital Signs q 15 Minutes - ED (Order Processing): 04/10/2012 11:12 [facility] Pharmacy: NS 250 mL Bolus and Continuous 1000 mL (Order Processing): 100 mL/hr, IV aspirin (Order Processing): 324 mg, PO, Once nitroglycerin additive 25 mg [0.15 mcg/kg/min] + Premix Bag 250 mL (Order Processing): 8.35 mL/hr, IV ED: Oxygen - ER (Order Processing): 04/10/2012 11:12 PEAR[facility]ER, Once, PRN Order, to keep oxygen saturation above 90%, 24 Electrocardiogram:Normal sinus rhythm, No ST-T changes, normal CO & QRS intervals. carbonating stone cleaner:Rate 76. Results review:All Results : Results. 04/10/2012 10:59 [facility]ER ED Treatments and Procedures - Text 04/10/2012 10:40 [facility]ER PRN Response - Text 04/10/2012 10:32 [facility] ED Nurse Reassess - Text 04/10/2012 10:30 [facility]AR[facility]ER XR Chest 1 view portable Report 04/10/2012 10:20 [facility] ED Nursing Note 04/10/2012 10:07 [facility] ED Triage Note - Text (In Error) 04/10/2012 10:00 [facility] ED Triage Note - Text 04/10/2012 11:13 [facility]ER Apical Heart Rate 70 /min SpO2 98 % Systolic Blood Pressure 122 mmHg Diastolic Blood Pressure 80 mmHg BP Location Left upper Oxygen Therapy Room air Vital Signs Form Vital Signs Form 04/10/2012 10:59 [facility]ER Apical Heart Rate 64 /min SpO2 97 % Systolic Blood Pressure 128 mmHg Diastolic Blood Pressure 82 mmHg BP Location Left upper Oxygen Therapy Room air Oxygen Therapy Nasal Cannula Oxygen Flow Rate 2 L/min Oxygen Start Time 04/10/2012 10:15 Oxygen Stop Time 04/10/2012 10:59 ED Treatments and Procedures Form ED Treatments and Procedures Form Vital Signs Form Vital Signs Form 04/10/2012 10:48 [facility]ER Temperature Core 37.5 C Apical Heart Rate 69 /min Respiratory Rate 20 /min SpO2 98 % Systolic Blood Pressure 127 mmHg Diastolic Blood Pressure 84 mmHg BP Location Left upper Oxygen Therapy Nasal Cannula Oxygen Saturation Monitoring Frequency Continuous Oxygen Flow Rate 2 L/min Vital Signs Form Vital Signs Form 04/10/2012 10:40 [facility]ER Apical Heart Rate 78 /min SpO2 96 % Systolic Blood Pressure 125 mmHg Diastolic Blood Pressure 82 mmHg BP Location Left upper PRN Medication Effective Yes Post Medication Pain Assessment 0 Response Response Oxygen Therapy Nasal Cannula Oxygen Saturation Monitoring Frequency Continuous Oxygen Flow Rate 2 L/min Vital Signs Form Vital Signs Form 04/10/2012 10:35 [facility]ER Apical Heart Rate 77 /min SpO2 98 % Systolic Blood Pressure 132 mmHg Diastolic Blood Pressure 88 mmHg BP Location Left upper Oxygen Therapy Nasal Cannula Oxygen Saturation Monitoring Frequency Continuous Oxygen Flow Rate 2 L/min nitroglycerin 0.4 mg mg Sodium Chloride 0.9% Begin Bag 1,000 mL mL Vital Signs Form Vital Signs Form 04/10/2012 10:34 [facility]ER aspirin 324 mg mg 04/10/2012 10:32 [facility]ER Pain Symptoms Yes Pain 1 Location Other: [...] Form ED Nurse Reassess Form 04/10/2012 10:25 PEAR[facility]ER 12 Lead EKG Done 04/10/2012 10:20 [facility]ER Temperature Core 37.6 C Apical Heart Rate 78 /min Respiratory Rate 20 /min SpO2 99 % Systolic Blood Pressure 132 mmHg Diastolic Blood Pressure 93 mmHg >HHI Mean Arterial Pressure 106 mmHg BP Location Left upper Pain Symptoms No Distress None Nail Bed Color [place] Capillary Refill Less than 2 seconds Heart Sounds ICU S1S2 Heart Rhythm Regular CV Patient Stated Symptoms Palpitations Radial Pulse, Left 2+ Normal Radial Pulse, Right 2+ Normal Bilateral Pretibial Edema None Cardiac Rhythm Sinus rhythm Monitoring Lead I Monitoring Lead Caustic Strength Inspector Initiated Respirations Unlabored Respiratory Patient Stated Symptoms [...] Intact Skin Turgor Elastic Mucous Membrane Color [place] Mucous Membrane Description Moist Peripheral IV #1 [...] Opening Response Maame Spontaneously Best Motor Response [place] Obeys simple commands Best Verbal Response [place] Oriented [place] Coma Score 15 Affect/Behavior Calm, Cooperative, Appropriate Orientation Oriented x 3 Domestic Abuse Concerns None Emotional Support Available Yes Nutrition ED Adequate Patient Stated Symptoms None Latex Reaction No Oxygen Start Time 04/10/2012 10:15 Tracking Acuity 2 -Emergent Tracking Group [facility] ED Drug Resistant Organism No Tobacco [...] years Pneumovac None Influenza Last year Languages Burkinan ED Physician Notification Time 04/10/2012 10:00 SAEED Level 1 No SAEED Level 2 No SAEED Level 3 Many Vital Signs SAEED Danger zone (HR > 100, RR > 20, SaO2 < 92%) Vital Signs Assessed Yes Cardiovascular Detailed Assessment Yes GCS Assessed Yes Respiratory Detailed Assessment Yes 04/10/2012 10:08 [facility] Sodium Lvl 138.4 mM/L Potassium Lvl 3.8 [...] % 54.9 % Lymph % 27.9 % [place] % 10.9 % Eos % 5.7 % HI Baso % 0.6 % Neutro Absolute 2.72 10(9)/L Lymph Absolute 1.38 x10(9)/L [place] Absolute 0.54 x10(9)/L Eos Absolute 0.28 x10(9)/L Baso Absolute 0.03 x10(9)/L Differential? Auto PT 9.5 second(s) INR 0.92 PTT 24.3 second(s) 04/10/2012 10:07 [facility] ED Triage Assessment Adult ([facility]) Form In Error (In Error) 04/10/2012 10:00 [facility] Height 173 cm Height Source Stated Dosing [...] Oxygen Therapy Room air Eye Opening Response [place] Spontaneously Best Motor Response [place] Obeys simple commands Best Verbal Response Maame Oriented [place] Coma Score 15 Latex Reaction No Tracking Acuity 2 -Emergent Tracking Group [facility] ED Drug Resistant Organism No Chief [...] years Pneumovac None Influenza Last year Languages Burkinan ED Physician Notification Time 04/10/2012 10:00 SAEED [...] from flowsheet : Vital Signs 04/10/2012 11:13 [facility] Apical Heart Rate 70 /min SpO2 98 % Systolic Blood Pressure 122 mmHg Diastolic Blood Pressure 80 mmHg BP Location [facility] 04/10/2012 10:59 [facility] Apical Heart Rate 64 /min SpO2 97 % Systolic Blood Pressure 128 mmHg Diastolic Blood Pressure 82 mmHg BP Location [facility] 04/10/2012 10:48 [facility] Temperature Core 37.5 C Apical Heart Rate 69 /min Respiratory Rate 20 /min SpO2 98 % Systolic Blood Pressure 127 mmHg Diastolic Blood Pressure 84 mmHg BP Location [facility] 04/10/2012 10:40 [facility] Apical Heart Rate 78 /min SpO2 96 % Systolic Blood Pressure 125 mmHg Diastolic Blood Pressure 82 mmHg BP Location [facility] 04/10/2012 10:35 [facility] Apical Heart Rate 77 /min SpO2 98 % Systolic Blood Pressure 132 mmHg Diastolic Blood Pressure 88 mmHg BP Location [facility] 04/10/2012 10:20 [facility] Temperature Core 37.6 C Apical Heart Rate 78 /min Respiratory Rate 20 /min SpO2 99 % Systolic Blood Pressure 132 mmHg Diastolic Blood Pressure 93 mmHg >HHI Mean Arterial Pressure 106 mmHg BP Location [facility] 04/10/2012 10:00 [facility] Temperature Core 37.5 C Apical Heart Rate 84 /min Respiratory Rate 24 /min HI SpO2 97 % Systolic Blood Pressure 135 mmHg Diastolic Blood Pressure 84 mmHg Mean Arterial Pressure 101 mmHg BP Location [facility] SpO2 04/10/2012 11:13 [facility] SpO2 98 % 04/10/2012 10:59 [facility] SpO2 97 % 04/10/2012 10:48 [facility] SpO2 98 % 04/10/2012 10:40 [facility] SpO2 96 % 04/10/2012 10:35 [facility] SpO2 98 % 04/10/2012 10:20 [facility] SpO2 99 % 04/10/2012 10:00 [facility] SpO2 97 % Impression and Plan Diagnosis [...] 01:27 PM Source: [facility] POWERCHART Document Id: [id number]} LER Valarie Centeno R.N. - 04/10/2012 10:32 AM CST ED Nurse Reassess ED Nurse Reassess Entered On: 04/10/2012 10:37 [facility] Performed On: 04/10/2012 10:32 [facility] by VALARIE CENTENO RN Pain Assessment Pain Symptoms : Yes VALARIE CENTENO RN - 04/10/2012 10:32 [facility] Pain Pain Assessment Grid Pain 1 Location : Other: Chest/Heart Laterality : Bilateral Intensity : 2 Time Pattern : Acute Onset : Sudden Quality : Pressure, Sharp Pain Radiation : No Aggravating Factors : None Alleviating Factors : None Associated Symptoms : Palpitations Interventions : MD notified VALARIE CENTENO RN - 04/10/2012 10:41 [facility] Document Id: [id number] LER William Arredondo R.N. - 04/10/2012 10:00 AM CST ED Triage Assessment ED Triage Assessment Entered On: 04/10/2012 10:20 [facility] Performed On: 04/10/2012 10:00 [facility] by WILLIAM ARREDONDO RN Reason For Visit Problems(Active) Common migraine Name of Problem: Common migraine ; Onset Date: Unknown ; Recorder: NELLIE JOHNSON RN;Confirmation: Confirmed ; Classification: Nursing ; Code: 033712 ; Contributor System: [employer] ; Last Updated: 06/19/2010 11:18 CDT ; Life Cycle Status: Active ; Vocabulary: SNOMED CT Hyperlipidemia Name of Problem: Hyperlipidemia ; Recorder: MAXIME VARGHESE RN; Confirmation: Confirmed ; Classification: Medical ; Code: 201161 ; Contributor System: [employer] ; Last Updated: 02/14/2012 13:41 [facility] ; Life Cycle Date: 02/11/2012 ; Life [...] PNED ; Probability: 0 ; Diagnosis Code: [id number] Triage Chief Complaint Description : 41 year old female presents to the ED after presenting to clinic triage with c/o being lightheaded, feeling sweaty, and palpitations. Patient has a hx NSTEMI- June 21, 2010. Information Given By : Patient, Significant other Accompanied By : Significant other Mode of Arrival ED : Private vehicle Track : Medical Languages : Burkinan Patient Informed of Triage Location : Emergency department Vital Signs Assessed : Yes GCS Assessed : Yes WILLIAM ARREDONDO RN - 04/10/2012 10:14 [facility] Vital Signs Temperature Core : 37.5C(Converted to: [...] 31.01kg/m2 WILLIAM ARREDONDO RN - 04/10/2012 10:14 [facility] Maame Coma Eye Opening Response [place] : Spontaneously Best Verbal Response Maame : Oriented Best Motor Response Maame : Obeys simple commands Maame Coma Score : 15 WILLIAM ARREDONDO RN - 04/10/2012 10:14 [facility] Pain Assessment Pain Symptoms : No WILLIAM ARREDONDO RN - 04/10/2012 10:14 [facility] ED Physician Notification Time ED Physician Notification Time : 04/10/2012 10:00 [facility] WILLIAM ARREDONDO RN - 04/10/2012 10:14 [facility] SAEED SAEED Level 1 : No SAEED Level 2 : No SAEED Level 3 : Many Vital Signs SAEED : Danger zone (HR > 100, RR > 20, SaO2 < 92%) WILLIAM ARREDONDO RN - 04/10/2012 10:14 [facility] DCP GENERIC CODE Tracking Acuity : 2 -Emergent Tracking Group : [facility] ED WILLIAM ARREDONDO RN - 04/10/2012 10:14 [facility] Allergy Latex Reaction : No WILLIAM ARREDONDO RN - 04/10/2012 10:14 [facility] Allergies (Active) morphine Estimated Onset Date: Unspecified ; Created By: RAVEN DELUNA LPN; Reaction Status: Active ; Category: Drug ; Substance: morphine ; Type: Allergy ; Updated By: RAVEN DELUNA LPN; Reviewed Date: 04/10/2012 10:20 [facility] narcotic analgesics Estimated Onset Date: Unspecified ; Reactions: itch ; Created By: NELLIE JOHNSON RN; Reaction Status: Active ; Category: Drug ; Substance: narcotic analgesics ; Type: Sensitivity ; Updated By: NELLIE JOHNSON RN; Reviewed Date: 04/10/2012 10:20 [facility] Percocet 5/325 Estimated Onset Date: Unspecified ; Created By: RAVEN DELUNA LPN; Reaction Status:Active ; Category: Drug ; Substance: Percocet 5/325 ; Type: Allergy ; Updated By: RAVEN DELUNA LPN; Reviewed Date: 04/10/2012 10:20 [facility] Toradol Estimated Onset Date: Unspecified ; Created By: RAVEN DELUNA LPN; Reaction Status: Active; Category: Drug ; Substance: Toradol ; Type: Allergy ; Updated By: RAVEN DELUNA LPN; Reviewed Date: 04/10/2012 10:20 [facility] ID Screen Drug Resistant Organism : No WILLIAM ARREDONDO RN - 04/10/2012 10:14 [facility] Immunizations Immunizations Current : Yes Last Tetanus : < 5 years Pneumovac : None Influenza : Last year WILLIAM ARREDONDO RN - 04/10/2012 10:14 [facility] Source: [facility] POWERCHART Document Id: [id number] LER documented in this encounter Miscellaneous Notes Miscellcriselda - Valarie Centeno R.N. - 04/10/2012 1:31 PM CST Valuables/Belongings Valuables/Belongings Entered On: 04/10/2012 13:31 [facility] Performed On: 04/10/2012 13:31 [facility] by VALARIE CENTENO RN Valuables/Belongings Valuables/Belongings Grid Valuables with Patient Clothes, Patient Valuables : Jacket, Pants, Shirt, Shoes, Undergarments Electronic Devices : Cell phone VALARIE CENTENO RN - 04/10/2012 13:31 [facility] Home Medication Disposition : None brought in with patient VALARIE CENTENO RN - 04/10/2012 13:31 [facility] Document Id: [id number] LER Miscellaneous - Valarie Centeno R.N. - 04/10/2012 1:21 PM CST Discharge Vital Signs Form Discharge Vital Signs Form Entered On: 04/10/2012 13:21 [facility] Performed On: 04/10/2012 13:21 [facility] by VALARIE CENTENO RN Vital Signs Temperature Core : 37.3C(Converted to: 99.1DegF) Apical Heart Rate : 58/min (LOW) Respiratory Rate : 20/min Systolic Blood Pressure : 127mmHg Diastolic Blood Pressure : 86mmHg NIBP Mean : 100mmHg BP Location : Left upper extremity SpO2 : 98% Oxygen Therapy : Room air VALARIE CENTENO RN - 04/10/2012 13:21 [facility] [facility] Document Id: [id number] LER [place] - Valarie Centeno R.N. - 04/10/2012 9:53 AM CST Facility Charge Ticket Facility Charge Ticket Entered On: 04/10/2012 13:34 [facility] Performed On: 04/10/2012 9:53 [facility] by VALARIE CENTENO RN Facility Charge TVL [...] Control : 15 Lynx Visit Level : 69995 Level 5 VALARIE CENTENO RN - 04/10/2012 13:33 [facility] Chief Complaint 8.50.02 Reason For Visit Category : Cardiorespiratory ED Chief Complaint Cardiorespiratory 8.5 : Palpitations TVL Calc : 20 TVL for Facility Charge Ticket Dx : Level 5 VALARIE CENTENO RN - 04/10/2012 13:33 [place] Source: [facility] [employer] Document Id: [id number] LER documented in this encounter Plan of Treatment Not on filedocumented as of this encounter Procedures Procedure Name Priority Date/Time Associated Comments Diagnosis CREATINE KINASE (CK) MB Routine 04/10/2012 10:08 Results for this ISOENZYME, S AM [facility] procedure are i n the results section. AUTOMATED DIFFERENTIAL, Routine 04/10/2012 10:08 Results for this B AM [facility] procedure are i n the results section. ACTIVATED PARTIAL Routine 04/10/2012 10:08 Result s for this THROMBOPLASTIN TIME AM [facility] procedur e are in (APTT), P the results section. PROTHROMBIN TIME (PT), Routine 04/10/2012 10:08 R esults for this P AM [facility] procedure are i n the results section. CBC WITH DIFFERENTIAL, Routine 04/10/2012 10:08 R esults for this B AM [facility] procedure are i n the results section. TROPONIN T, 5TH GEN, P Routine 04/10/2012 10:08 R esults for this AM [facility] procedure are i n the results section. CREATINE KINASE (CK), S Routine 04/10/2012 10:08 Results for this AM [facility] procedure are i n the results section. BASIC METABOLIC PANEL, Routine 04/10/2012 10:08 R esults for this S/P AM [facility] procedure are i n the results section. documented in this encounter Results (ABNORMAL) Automated Differential (04/10/2012 10:08 AM [facility]) Analysis Performed At Patho logist Time Signature Neutro % 54.9 42.0 - POWERCHART 77.0 Lymphocytes % 27.9 23.0 - POWERCHART 44.0 HX [place] % 10.9 2.0 - 18.0 POWERCHART HX [...] Volume Laterality Blood 04/10/2012 10:08 04/10/2012 AM [facility] 10:08 AM [facility] Elvis Cardenas M.D. LAB BLOOD ADD-ON Performing Organization Address City/[facility] Code Phon e Number POWERCHART APTT (Activated Partial Thromboplastin Time) (04/10/2012 10:08 AM [facility]) Analysis Performed At Patho logist Time Signature Prothrombin 24.3 23.0 - 31.0 POWERCHART Time, P SECONDS Specimen (Source) Anatomical Collection Method Collection Time Re ceived Time Location / / Volume Laterality Blood 04/10/2012 10:08 AM [facility] Elvis Cardenas M.D. LAB BLOOD ADD-ON Performing Organization Address City/State/ZIP Code Phon e Number POWERCHART PT (Prothrombin Time) with INR (04/10/2012 10:08 AM [facility]) Analysis Performed At Patho logist Time Signature Prothrombin 9.5 9.3 - 11.3 POWERCHART Time, P SECONDS INR 0.92 0.90 - 1.10 POWERCHART Specimen (Source) Anatomical Collection Method Collection Time Re ceived Time Location / / Volume Laterality Blood 04/10/2012 10:08 AM [facility] Elvis Cardenas M.D. LAB BLOOD ADD-ON Performing Organization Address City/State/ZIP Code Phon e Number POWERCHART CBC with Differential (04/10/2012 10:08 AM [facility]) P athologist Signature Leukocytes 5.0 3.4 - 10.5 POWERCHART X109L Erythrocytes 4.26 3.90 - POWERCHART 5.03 [id number] Hemoglobin 13.6 12.0 - POWERCHART 15.5 GDL Hematocrit 39.4 34.9 - POWERCHART 44.5 MCV 92.5 82.0 - POWERCHART 98.0 FL HX RDW 12.0 11.9 - POWERCHART 15.5 Platelet Count 265 150 - 450 POWERCHART X109L HXDifferential? Auto POWERCHART Specimen (Source) Anatomical Collection Method Collection Time Re ceived Time Location / / Volume Laterality Blood 04/10/2012 10:08 AM [facility] Elvis Cardenas M.D. LAB BLOOD ADD-ON Performing Organization Address City/State/ZIP Code Phon e Number POWERCHART Troponin T (04/10/2012 10:08 AM [facility]) P athologist Signature Troponin T, S <0.01 0.00 - 0.10 POWERCHART NGML Comment: 0.03 ? 0.1 ng/mL Intermediate Zone Specimen (Source) Anatomical Collection Method Collection Time Re ceived Time Location / / Volume Laterality Blood 04/10/2012 10:08 AM [facility] Elvis Cardenas M.D. LAB BLOOD ADD-ON Performing Organization Address City/State/ZIP Code Phon e Number POWERCHART CK (Creatine Kinase) (04/10/2012 10:08 AM [facility]) P athologist Signature Creatine Kinase 82 21 - 232 UL POWERCHART (CK), S Specimen (Source) Anatomical Collection Method Collection Time Re ceived Time Location / / Volume Laterality Blood 04/10/2012 10:08 AM [facility] Elvis Cardenas M.D. LAB BLOOD ADD-ON Performing Organization Address City/State/ZIP Code Phon e Number POWERCHART BMP (Basic Metabolic Panel) (04/10/2012 10:08 AM [facility]) P athologist Signature Sodium, S 138.4 135.0 [...] POWERCHART MMOLL eGFR >60 >=60 POWERCHART Black/ [id number] [place] Glucose 126 70 - 139 POWERCHART MGDL HXeGFR (MDRD) >60 >=60 POWERCHART [id number] Comment: A GFR of <60 mL/min is indicative of chr onic kidney disease. (MDRD calculation valid on patients 18 - 70 years.) Specimen (Source) Anatomical Collection Method Collection Time Re ceived Time Location / / Volume Laterality Blood 04/10/2012 10:08 AM [facility] Elvis Cardenas M.D. LAB BLOOD ADD-ON Performing Organization Address City/State/ZIP Code Phon e Number POWERCHART Creatine Kinase (CK) MB Isoenzyme (04/10/2012 10:08 AM [facility]) P athologist Signature Creatine 1.7 0.1 - 6.2 POWERCHART Kinase(CK) MB NGML Isoenzyme, S Specimen (Source) Anatomical Collection Method Collection Time Re ceived Time Location / / Volume Laterality Blood 04/10/2012 10:08 AM [facility] Elvis Cardenas M.D. LAB BLOOD ADD-ON Performing Organization Address City/State/ZIP Code Phon e Number POWERCHART documented in this encounter Visit Diagnoses Not on filedocumented in this encounter Additional Health Concerns Assessment Noted Time PHQ-9 Depression Total Score: 15 02/14/2012 1:41 PM CS T documented as of this encounter
--- OUTSIDE RECORDS SUMMARY | 2022-02-12 17:40 | XMS_ITS | Encounter Summary ---
:1970 Author Organization [facility] Address [address] [place] [address] Care Team Providers Name Role Phone Unavailable Primary Care Provider Unavailable Encounter Details Date Type Department Care Team Description 04/24/2012 Hospital Encounter HX [facility] [place] Nicky Llanes M.D. [address] [place] [address] [place] Ramirez [phone] (Wo rk) Social History [...] Comments Blood Pressure 116/72 04/24/2012 9:04 AM REGISTERED NURSE CARDIOVASCULAR ICU Pulse 64 04/24/2012 9:04 AM REGISTERED NURSE CARDIOVASCULAR ICU Temperature - - Respiratory Rate 16 04/24/2012 9:04 AM REGISTERED NURSE CARDIOVASCULAR ICU Oxygen Saturation - - Inhaled Oxygen Concentration - - Weight 83.7 kg (184 lb 8.4 oz) 04/24/2012 9:04 AM REGISTERED NURSE CARDIOVASCULAR ICU Height 173 cm (5' 8.11) 04/24/2012 9:04 AM REGISTERED NURSE CARDIOVASCULAR ICU Body Mass Index 27.97 04/24/2012 9:04 AM REGISTERED NURSE CARDIOVASCULAR ICU documented in this encounter Progress Notes Nicky Gomez M.D. - 04/24/2012 8:37 AM CST [id number] CHIEF COMPLAINT/REASON FOR VISIT Follow-up mood and [...] reports that the spot to her right yazidi seems to be getting a little bit [...] are adequate. SKIN: Over the patient's right yazidi within her hairline, there is a brown, raised lesion that is approximately 7 mm x 8 mm. It does have some darker freckles in it and hairs growing through it. Margins are fairly distinct. PROCEDURE: Shave biopsy of the right yazidi. We discussed the procedure today including risks of bleeding, infection and scarring. We also discussed different options for removal stating that the shave biopsy would likely be best to leave the least amount of scar. Patient voiced understanding. Consent was signed. Almo protocol was followed.The entirety of the procedure [...] of the content Nicky Manzo M.D./latasha DOCID: [id number] Electronically Signed By: NICKY MONTIEL MD On: 05/01/2012 07:37 AM Modified by and Electronically Signed by: NICKY MONTIEL MD On: 05/01/2012 07:36 AM Source: [facility] MHSDOLBEYNONRADSYS Document Id: [id number] STERED NURSE CARDIOVASCULAR ICU documented in this encounter Miscellaneous Notes Miscellaneous - Rebecca Granados, LSonjaP.N. - 04/24/2012 3:07 PM CST PHQ-9 PHQ-9 Entered On: 04/24/2012 15:08 REGISTERED NURSE CARDIOVASCULAR ICU Performed On: 04/24/2012 15:07 REGISTERED NURSE CARDIOVASCULAR ICU by REBECCA GRANADOS FIELD CROP FARMING SUPERVISOR, RT PHQ-9 Little interest or pleasure in [...] REBECCA GRANADOS LPN, RT - 04/24/2012 15:07 REGISTERED NURSE CARDIOVASCULAR ICU Source: [facility] Voy[employer]ByMe Document Id: [id number] STERED NURSE CARDIOVASCULAR ICU Miscellaneous - Nicky Gomez M.D. - 04/24/2012 1:22 PM REGISTERED NURSE CARDIOVASCULAR ICU Ambulatory Patient Summary [address] [address] Visit Information Name: GERMAN NOVAK [facility] Number: [id number] Current Date: 04/24/2012 13:22:57 Physicians Attending Provider: NICKY MONTIEL MD Primary Care Provider: LAVELL BUCHANAN RN, FOOD CONSULTANT Your Medications Here is a list [...] No Appointments found Your Goals/Additional instructions: Source: [facility] Microelectrónica Document Id: [id number] STERED NURSE CARDIOVASCULAR ICU Miscellaneous - Nicky Gomez M.D. - 04/24/2012 1:22 PM REGISTERED NURSE CARDIOVASCULAR ICU Ambulatory Depart Summary [address] [address] Visit Information Name: GERMAN NOVAK [facility] Number: [id number] Visit Date: 04/24/2012 13:22:57 Attending Provider: NICKY MONTIEL MD Primary Care Provider: LAVELL BUCHANAN RN, FOOD CONSULTANT JASMYNEGREGGGERMNAE has been given the following list of [...] your provider for clarification. Additional Information: Source: [facility]ICQuintel TechnologyCHART Document Id: [id number] STERED NURSE CARDIOVASCULAR ICU Miscellaneous - Damaris Colindres L.P.N. 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, wants cholesterol checked, Temperature [...] 27.97kg/m2 DAMARIS COLINDRES LPN - 04/24/2012 9:04 REGISTERED NURSE CARDIOVASCULAR ICU General Info Information Given By : Patient Languages : Turkish DAMARIS COLINDRES LPN - 04/24/2012 9:04 REGISTERED NURSE CARDIOVASCULAR ICU Subjective Pain Symptoms : No DAMARIS COLINDRES LPN - 04/24/2012 9:04 REGISTERED NURSE CARDIOVASCULAR ICU Dependent Habits Tobacco Use/Currently Using : No Tobacco Use/Last 12 months : No Tobacco Use/Advised to Quit : No Exposure to Tobacco Smoke : Care provider denies smoking in home Smoking Status : Former smoker DAMARIS COLINDRES LPN - 04/24/2012 9:04 REGISTERED NURSE CARDIOVASCULAR ICU Tobacco Use Grid Type : Cigarettes Last Use : 04/09/12 DAMARIS COLINDRES LPN - 04/24/2012 9:04 REGISTERED NURSE CARDIOVASCULAR ICU Alcohol Use : Yes DAMARIS COLINDRES LPN - 04/24/2012 9:04 REGISTERED NURSE CARDIOVASCULAR ICU Caffeine Use Grid Caffeine Use : Current Type : Soft drinks Frequency : Daily Amount : 1 DAMARIS COLINDRES LPN - 04/24/2012 9:04 REGISTERED NURSE CARDIOVASCULAR ICU Recreational Drug Use Grid Drug Use : None DAMARIS COLINDRES LPN - 04/24/2012 9:04 REGISTERED NURSE CARDIOVASCULAR ICU Allergy Allergies (Active) morphine Estimated Onset Date: Unspecified ; Created By: RAVEN DELUNA LPN; Reaction Status: Active ; Category: Drug ; Substance: morphine ; Type: Allergy ; Updated By: RAVEN DELUNA LPN; Reviewed Date: 04/24/2012 9:03 REGISTERED NURSE CARDIOVASCULAR ICU narcotic analgesics Estimated Onset Date: Unspecified ; Reactions: itch ; Created By: NELLIE JOHNSON RN; Reaction Status: Active ; Category: Drug ; Substance: narcotic analgesics ; Type: Sensitivity ; Updated By: NELLIE JOHNSON RN; Reviewed Date: 04/24/2012 9:03 REGISTERED NURSE CARDIOVASCULAR ICU Percocet 5/325 Estimated Onset Date: Unspecified ; Created By: RAVEN DELUNA LPN; Reaction Status:Active ; Category: Drug ; Substance: Percocet 5/325 ; Type: Allergy ; Updated By: RAVEN DELUNA LPN; Reviewed Date: 04/24/2012 9:03 REGISTERED NURSE CARDIOVASCULAR ICU Toradol Estimated Onset Date: Unspecified ; Created By: RAVEN DELUNA LPN; Reaction Status: Active; Category: Drug ; Substance: Toradol ; Type: Allergy ; Updated By: RAVEN DELUNA LPN; Reviewed Date: 04/24/2012 9:03 REGISTERED NURSE CARDIOVASCULAR ICU Source: [facility] VoyageByMe Document Id: [id number] STERED NURSE CARDIOVASCULAR ICU Miscellaneous - Barbara Mao N.P. - 04/17/2012 8:49 AM CST School or Work Excuse Document Has Been Updated School or Work Excuse Entered On: 04/17/2012 8:49 REGISTERED NURSE CARDIOVASCULAR ICU Performed On: 04/17/2012 8:49 REGISTERED NURSE CARDIOVASCULAR ICU by BARBARA MAO NP School or Work Excuse Date Patient Seen : 04/10/2012 REGISTERED NURSE CARDIOVASCULAR ICU School or Work Restrictions : No Restrictions BARBARA MAO NP - 04/17/2012 8:49 REGISTERED NURSE CARDIOVASCULAR ICU Date of Return to School/Work Without Restrictions : 04/11/2012 REGISTERED NURSE CARDIOVASCULAR ICU BARBARA MAO NP - 04/17/2012 8:50 REGISTERED NURSE CARDIOVASCULAR ICU Source: [facility] POWERCHART Document Id: [id number] STERED NURSE CARDIOVASCULAR ICU Miscellaneous - Alyce Robbins - 04/14/2012 12:31 PM CST General Message Document Contains Addenda Addendum by ALYCE ROBBINS RN on 20 April 2012 15:08:53 REGISTERED NURSE CARDIOVASCULAR ICU Thank you. Addendum by SHAWN TALLEY RN on 17 April 2012 09:33:26 REGISTERED NURSE CARDIOVASCULAR ICU This was faxed, pt notified by message on VM Addendum by SHAWN TALLEY RN on 17 April 2012 08:38:38 REGISTERED NURSE CARDIOVASCULAR ICU From: SHAWN TALLEY RN To: BARBARA MAO GEAR SHAVER SET UP OPERATOR; SHAWN TALLEY RN; Sent: 04/17/2012 08:38:38 REGISTERED NURSE CARDIOVASCULAR ICU Subject: FW: General Message Sent to you as provider Pt requests a note that says she was seen in the ED on 04/10/12 and that she is okay to return to work. Would you be willing to write this for her? Addendum by SHAWN TALLEY RN on 15 April 2012 16:40:12 REGISTERED NURSE CARDIOVASCULAR ICU From: SHAWN TALLEY RN To: ALYCE ROBBINS RN; Sent: 04/15/2012 16:40:12 REGISTERED NURSE CARDIOVASCULAR ICU Subject: FW: General Message Pt requests that when this note is complete that it goes to Anna at fax [phone]. Pt requests call when done [phone]. Addendum by NICKY MONTIEL MD on 15 April 2012 12:59:58 REGISTERED NURSE CARDIOVASCULAR ICU From: NICKY MONTIEL MD To: ALYCE ROBBINS RN; Sent: 04/15/2012 12:59:58 REGISTERED NURSE CARDIOVASCULAR ICU Subject: RE: General Message Jen. Bill I have had no time to read that note to address this. Nicky Addendum by SHAWN TALLEY RN on 15 April 2012 10:03:04 REGISTERED NURSE CARDIOVASCULAR ICU From: SHAWN TALLEY RN To: RESHMA LYNNE III, MD; Sent: 04/15/2012 10:03:04 REGISTERED NURSE CARDIOVASCULAR ICU Subject: FW: General Message Sent to you [...] ROBBINS RN on 14 April 2012 13:28:17 REGISTERED NURSE CARDIOVASCULAR ICU From: ALYCE ROBBINS RN To: NICKY MONTIEL MD; Sent: 04/14/2012 13:28:17 REGISTERED NURSE CARDIOVASCULAR ICU Subject: FW: General Message Bill, please see Dr Cardenas's dictation from 04/10/2012. Let me know if this is not sufficient. Thanks. Addendum by NICKY MONTIEL MD on 14 April 2012 13:17:11 REGISTERED NURSE CARDIOVASCULAR ICU From: NICKY MONTIEL MD To: ALYCE ROBBINS RN; Sent: 04/14/2012 13:17:11 REGISTERED NURSE CARDIOVASCULAR ICU Subject: RE: General Message I do not know why she was seen in the ED or when she was seen. I need more information please. Nicky Alberts From: ALYCE ROBBINS RN To: NICKY MONTIEL MD; Sent: 04/14/2012 12:31:17 REGISTERED NURSE CARDIOVASCULAR ICU Subject: General Message Seen in ED with Dr Cardenas who is not here today. Says is switching to you as PCP. Needs return to work note. Prefers include: Seen in ED but okay to return to work without restrictions. Patient will collect, needs it for work tomorrow (Wed). Can you do this for her? Source: [facility] POWERCHART Document Id: [id number] Electronically signed by Conversion, [facility] Hoop Flaring Machine Operator [id number] at 08/07/2016 7:31 PM CDT documented in this encounter Plan of Treatment Not on filedocumented as of this encounter Visit Diagnoses Not on filedocumented in this encounter Additional Health Concerns Assessment Noted Time PHQ-9 Depression Total Score: 4 04/24/2012 3:07 PM REGISTERED NURSE CARDIOVASCULAR ICU documented as of this encounter
--- OUTSIDE RECORDS SUMMARY | 2022-02-12 17:40 | XMS_ITS | Encounter Summary ---
:[address] [facility] Address [address] [place] [address] Care Team Providers Name Role Phone Unavailable [...]
--- OUTSIDE RECORDS SUMMARY | 2022-02-12 17:40 | XMS_ITS | Encounter Summary ---
:1970 Author Organization [facility] Address [address] [place] [address] Care Team Providers Name Role Phone Unavailable Primary Care Provider Unavailable Encounter Details Date Type Department Care Team Description 03/14/2014 Hospital En[facility] Tiffanie Munoz, ALVERTO, C.N.P., D.N.P. [address], [place] [phone] (Wo rk) Social History [...] 173 cm (5' 8.11) 03/14/2014 10:12 AM INSTRUMENT STERILIZER Body Mass Index - - documented in this encounter Plan of Treatment Not on filedocumented as of this encounter Procedures Procedure Name Priority Date/Time Associated Comments Diagnosis 5-HYDROXYINDOLEACETIC Routine 03/14/2014 6:00 AM Results for this ACID, 24 HR U INSTRUMENT STERILIZER procedure are in the results section. CATECHOLAMINE FRACT, Routine 03/14/2014 6:00 AM R esults for this FREE, U INSTRUMENT STERILIZER procedure are i n the results section. documented in this encounter Results 5-Hydroxyindoleacetic Acid (5-HIAA), 24 Hour, Urine (03/14/2014 6:00 AM INSTRUMENT STERILIZER) P athologist Signature 5-Hydroxyindole 4.8 <=8.0 POWERCHART acetic Acid, U MG24HR HXHrs 24 HR POWERCHART 5-HIAA-[place] HXTV 1425 ML POWERCHART 5-HIAA-[place] Comment: Test Performed by: [facility] [place] [address] Emergency Management Specialist: Leanne Jorge Specimen (Source) Anatomical Collection Method Collection Time Re ceived Time Location / / Volume Laterality Urine 03/14/2014 6:00 AM INSTRUMENT STERILIZER Tiffanie Munoz APRN, C.N.P., D.N.P. LAB URINE ORDE [place] Performing Organization Address City/[facility] Code Phon e Number POWERCHART (ABNORMAL) Catecholamine Fractionation, Free, 24 Hour, Urine (03/14/2014 6:00 AM INSTRUMENT STERILIZER) Patholo gist Method Time Signature HXHrs Catech 24 HR POWERCHART Free-[place] HXTV Catech 1425 ML POWERCHART Free-[place] Norepinephrine 12 (L) 15 - 80 POWERCHART Epinephrine 1.1 <21 POWERCHART Dopamine 229 65 - 400 POWERCHART Comment: Test Performed by: [facility] [place] [address] Emergency Management Specialist: Leanne Jorge Specimen (Source) Anatomical Collection Method Collection Time Re ceived Time Location / / Volume Laterality Urine 03/14/2014 6:00 AM INSTRUMENT STERILIZER Tiffanie Munoz APRN, C.N.P., D.N.P. LAB URINE ORDE ED Performing Organization Address City/[facility] Code Phon e Number POWERCHART documented in this encounter Visit Diagnoses Not on filedocumented in this encounter Additional Health Concerns Assessment Noted Time PHQ-9 Depression Total Score: 10 03/11/2013 2:22 PM CS T documented as of this encounter
--- OUTSIDE RECORDS SUMMARY | 2022-02-12 17:40 | XMS_ITS | Encounter Summary ---
:1970 Author Organization [facility] Address [address] [place] [address] Care Team Providers Name Role Phone Unavailable Primary Care Provider Unavailable Encounter Details Date Type Department Care Team Description 03/11/2013 Hospital Encounter HX [facility] Tiffanie Christiansen, ALVERTO, C.N.P., D. N.P. [address] [place] [address] (Wo rk) Social History Tobacco [...] 06/22/2019 organizations such as taoism groups, unions, fraternal or athletic groups, or [...] Comments Blood Pressure 132/86 03/11/2013 2:[address] FREIGHT CONDUCTOR Pulse 52 03/11/2013 2:[address] FREIGHT CONDUCTOR Temperature - - Respiratory Rate 16 03/11/2013 2:[address] FREIGHT CONDUCTOR Oxygen Saturation - - Inhaled Oxygen Concentration - - Weight 85.8 kg (189 lb 2.5 oz) 03/11/2013 2:[address] FREIGHT CONDUCTOR Height 173 cm (5' 8.11) 03/11/2013 2:[address] FREIGHT CONDUCTOR Body Mass Index 28.67 03/11/2013 2:[address] FREIGHT CONDUCTOR documented in this encounter Miscellaneous Notes Miscellaneous - Tiffanie Christiansen D.N.P., C.N.P. - 03/11/2013 4:[address] FREIGHT CONDUCTOR Ambulatory Patient Summary [address] [place] [address] Visit Information Name: GERMAN NOVAK [facility] Number: [id number] Current Date: 03/11/2013 16:01:41 Physicians Attending Provider: TIFFANIE CHRISTIANSEN DNP, ED SPECIAL EDUCATION TEACHER Primary Care Provider: PCP, ELSEWHERE GERMAN NOVAK [...] vasospasm Mrs. Novak was transferred from the [place] emergency department where he initial troponin was 0.06, and a CK-MB was 5.9. [facility]. [facility] was transferred to [facility] for evaluation of her elevation in her cardiac serial biomarkers. Due to her associated symptoms of headache and shortness of breath with the chest pain, a head CT was obtained upon arrival to [facility] and did not reveal any abnormalities. [...] Date Time Location Reason Provider 03/15/2013 14:00 [facility] yearly follow-up Joel Jones MD Attention: Contact your local Clinic if further appointment detail needed. Your Goals/Additional instructions: Source: [facility] POWERCHART Document Id: [id number] FREIGHT CONDUCTOR Miscellaneous - Tiffanie Christiansen D.N.P., C.N.P. - 03/11/2013 4:[address] FREIGHT CONDUCTOR Ambulatory Depart Summary [address] [place] [address] Visit Information Name: GERMAN NOVAK [facility] Number: [id number] Visit Date: 03/11/2013 16:01:38 Attending Provider: TIFFANIE CHRISTIANSEN DNP, ED SPECIAL EDUCATION TEACHER Primary Care Provider: PCP, DESEAN GERMAN NOVAK [...] in case of emergency. Additional Information: Source: [facility] POWERCHART Document Id: [id number] FREIGHT CONDUCTOR Miscellaneous - Francisco Medrano L.P.N. - 03/11/2013 2:12 PM CST Adult Safety Council Director Intake/History Adult Safety Council Director Intake/History Entered On: 03/11/2013 14:18 ROAD FREIGHT CONDUCTOR Performed On: 03/11/2013 14:12 ROAD FREIGHT CONDUCTOR by FRANCISCO MEDRANO LPN Intake Chief Complaint [...] kg/m2 FRANCISCO MEDRANO LPN - 03/11/2013 14:12 ROAD FREIGHT CONDUCTOR General Info Information Given By : Patient Languages : Sinhala FRANCISCO MEDRANO LPN - 03/11/2013 14:12 ROAD FREIGHT CONDUCTOR Subjective Pain Symptoms : No FRANCISCO MEDRANO LPN - 03/11/2013 14:12 ROAD FREIGHT CONDUCTOR Dependent Habits Tobacco Use/Currently Using : No Tobacco Use/Last 12 months : No Tobacco Use/Advised to Quit : No Exposure to Tobacco Smoke : Care provider denies smoking in home Smoking Status : Former smoker FRANCISCO MEDRANO LPN - 03/11/2013 14:12 ROAD FREIGHT CONDUCTOR Tobacco Use Grid Type : Cigarettes Last Use : 04/09/12 FRANCISCO MEDRANO LPN - 03/11/2013 14:12 ROAD FREIGHT CONDUCTOR Alcohol Use : Yes FRANCISCO MEDRANO LPN - 03/11/2013 14:12 ROAD FREIGHT CONDUCTOR Caffeine Use Grid Caffeine Use : Current Type : Soft drinks Frequency : Daily Amount : 1 FRANCISCO MEDRANO LPN - 03/11/2013 14:12 ROAD FREIGHT CONDUCTOR Recreational Drug Use Grid Drug Use : None BERNADINE FRANCISCO Peres LPN - 03/11/2013 14:12 ROAD FREIGHT CONDUCTOR Source: [employer] Document Id: [id number] ROAD FREIGHT CONDUCTOR!43 FREIGHT CONDUCTOR Miscellaneous - Francisco Medrano L.PSonjaNSonja - 03/11/2013 2:12 PM CST Health Assessment Health Assessment Entered On: 03/11/2013 14:18 ROAD FREIGHT CONDUCTOR Performed On: 03/11/2013 14:12 ROAD FREIGHT CONDUCTOR by FRANCISCO MEDRANO LPN Health Assessment Complete Health Assessment Complete or Modified : Annual Health Assessment Annual Health Assessment Completed : Yes FRANCISCO MEDRANO LPN - 03/11/2013 14:12 ROAD FREIGHT CONDUCTOR Nutrition Nutrition Risk Factors by History Adult : None FRANCISCO MEDRANO LPN - 03/11/2013 14:12 ROAD FREIGHT CONDUCTOR Functional Current Daily Living Assistance : None FRANCISCO MEDRANO LPN - 03/11/2013 14:12 ROAD FREIGHT CONDUCTOR Dependent Habits Tobacco Use/Currently Using : No Exposure to Tobacco Smoke : Care provider denies smoking in home Smoking Status : Former smoker FRANCISCO MEDRANO LPN - 03/11/2013 14:12 ROAD FREIGHT CONDUCTOR Tobacco Use Grid Type : Cigarettes Last Use : 04/09/12 FRANCISCO MEDRANO LPN - 03/11/2013 14:12 ROAD FREIGHT CONDUCTOR Caffeine Use Grid Caffeine Use : Current Type : Soft drinks Frequency : Daily Amount : 1 FRANCISCO MEDRANO LPN - 03/11/2013 14:12 ROAD FREIGHT CONDUCTOR Recreational Drug Use Grid Drug Use : None FRANCISCO MEDRANO LPN - 03/11/2013 14:12 ROAD FREIGHT CONDUCTOR Psychosocial Domestic Abuse Concerns : None FRANCISCO MEDRANO LPN - 03/11/2013 14:12 ROAD FREIGHT CONDUCTOR Advance Directive Advanced Directives : No Advance Directive Additional Information : No FRANCISCO MEDRANO LPN - 03/11/2013 14:12 ROAD FREIGHT CONDUCTOR Educ Needs Learning Style Preference Adult Grid Patient : None Family : None FRANCISCO MEDRANO LPN - 03/11/2013 14:12 ROAD FREIGHT CONDUCTOR [facility] Document Id: [id number] ROAD FREIGHT CONDUCTOR!34 FREIGHT CONDUCTOR documented in this encounter Plan of Treatment Not on filedocumented as of this encounter Visit Diagnoses Not on filedocumented in this encounter Additional Health Concerns Assessment Noted Time PHQ-9 Depression Total Score: 10 03/11/2013 2:22 PM CS T documented as of this encounter
--- OUTSIDE RECORDS SUMMARY | 2022-02-12 17:41 | XMS_ITS | Encounter Summary ---
:1970 Author Organization [facility] Address [address] [place] [address] Care Team Providers Name Role Phone Unavailable Primary Care Provider Unavailable Encounter Details Date Type Department Care Team Description 06/07/2004 Hospital Encounter HX [facility] Shahriar Marina M.D. [address] [place] [phone] (Wo rk) Social History Tobacco [...] Parada M.D. - 06/07/2004 12:00 AM CST [id number] Date: 06/07/2004 Name: Laura Novak Birthdate: 1970 Soc.Sec.No: [id number] The patient was seen at: [facility] Restrictions if any: OFF Work from 06/06/04 until 07/19/04. Laura had major surgery 06/06/04. Butch Parada M.D. OBSTETRICS/GYNECOLOGY [facility] Source: [facility] Document Id: [id number] Electronically signed by Conversion, [facility] Hat Band Attacher [id number] at 08/12/2016 9:15 PM CDT Miscellaneous - Butch Parada M.D. - 06/07/2004 12:[id number] [facility] [address] [facility], [address] Name: Laura Novak Birthdate: 1970 SSN: [id number] [facility] Admission Date: 06/06/04 Allergy: Review [...] [address] BUTCH PARADA 06/07/2004 Source: [facility] RWHXTRANSXRTFSYS Document Id: [id number] Electronically signed by Conversion, [facility] Hat Band Attacher [id number] at 08/12/2016 9:15 PM CDT documented in this encounter Plan of Treatment Not on filedocumented as of this encounter Visit Diagnoses Not on filedocumented in this encounter
--- OUTSIDE RECORDS SUMMARY | 2022-02-12 17:41 | XMS_ITS | Encounter Summary ---
:1970 Author Organization [facility] Address [address] [place] [address] Care Team Providers Name Role Phone Unavailable Primary Care Provider Unavailable Encounter Details Date Type Department Care Team Description 10/19/2007 Hospital Encounter HX [facility] Lopez, INPT/OBSRV M.D. [address] [place] [phone] (Wo rk) Social [...]
--- OUTSIDE RECORDS SUMMARY | 2022-02-12 17:41 | XMS_ITS | Encounter Summary ---
:1970 Author Organization [facility] Address [address] [place] [address] Care Team Providers Name Role Phone Unavailable Primary Care Provider Unavailable Encounter Details Date Type Department Care Team Description 10/19/2007 - Hospital Encounter [facility] Yonas [place], 10/20/2007 INPT/OBSRV M.D. [address] Rogelio Guerrero [place] [phone] (Wo rk) [...]
--- OUTSIDE RECORDS SUMMARY | 2022-02-12 17:41 | XMS_ITS | Encounter Summary ---
:1970 Author Organization [facility] Address [address] [place] [address] Care Team Providers Name Role Phone Unavailable Primary Care Provider Unavailable Encounter Details Date Type Department Care Team Description 09/14/2007 Hospital Encounter HX [facility] INPT/OBSRV Morelia Reynoso M.D. [address] [place], [place] [address] (Wo rk) Social History [...]
--- OUTSIDE RECORDS SUMMARY | 2022-02-12 17:41 | XMS_ITS | Encounter Summary ---
:1970 Author Organization [facility] Address [address] [place] [address] Care Team Providers Name Role Phone Unavailable Primary Care Provider Unavailable Encounter Details Date Type Department Care Team Description 12/07/2008 Hospital Encounter HX [facility] INPT/OBSRV Jaymie Lopez M.D. [address] [place] [address] (Wo rk) Social History Tobacco Use Types [...]
--- OUTSIDE RECORDS SUMMARY | 2022-02-12 17:41 | XMS_ITS | Encounter Summary ---
:1970 Author Organization [facility] Address [address] [place] [address] Care Team Providers Name Role Phone Unavailable Primary Care Provider Unavailable Encounter Details Date Type Department Care Team Description 06/21/2009 Hospital Encounter HX [facility] CAM INPT/OBSRV Jaymie Lopez M.D. [address] [place] [address] (Wo rk) Social History Tobacco Use Types [...]
--- OUTSIDE RECORDS SUMMARY | 2022-02-12 17:41 | XMS_ITS | Encounter Summary ---
:1970 Author Organization [facility] Address [address] [place] [address] Care Team Providers Name Role Phone Unavailable Primary Care Provider Unavailable Encounter Details Date Type Department Care Team Description 06/06/2004 - Hospital Encounter HX NO MAPPING Butch Mitchell M.D. 06/07/2004 [facility] [place], [place] [address] (Wo rk) Social History [...]
--- OUTSIDE RECORDS SUMMARY | 2022-02-12 17:41 | XMS_ITS | Encounter Summary ---
:1970 Author Organization [facility] Address [address] [place] [address] Care Team Providers Name Role Phone Unavailable Primary Care Provider Unavailable Encounter Details Date Type Department Care Team Description 10/28/2007 Hospital Encounter HX [facility] Yonas Lopez, INPT/OBSRV M.D. [address] [place] [phone] (Wo rk) Social [...]
--- OUTSIDE RECORDS SUMMARY | 2022-02-12 17:41 | XMS_ITS | Encounter Summary ---
:1970 Author Organization [facility] Address [address] [place] [address] Care Team Providers Name Role Phone Unavailable [...]
--- OUTSIDE RECORDS SUMMARY | 2022-02-12 17:41 | XMS_ITS | Encounter Summary ---
:1970 Author Organization [facility] Address [address] [place] [address] Care Team Providers Name Role Phone Unavailable Primary Care Provider Unavailable Encounter Details Date Type Department Care Team Description 01/13/2007 Hospital Encounter HX [facility] CAM INPT/OBSRV Lindy Palacios M.D. [address] [place], [place] [address] (Wo rk) Social History [...]
--- OUTSIDE RECORDS SUMMARY | 2022-02-12 17:41 | XMS_ITS | Encounter Summary ---
:1970 Author Organization [facility] Address [address] [place] [address] Care Team Providers Name Role Phone Unavailable [...] with contrast, contrast enhance d neck MRA, [place] MRA: Brain MR: No intracranial [...] s ignificant stenosis. No vascular anomalies. ?? [place] MRA: Normal examination . No evidence of vascular anomaly. No occlusion or significant stenosis. ?? ([id number]) Ind: 110.543 ?? Dia.120 ?? Electronically signed by: ?? Felipe Meadows M.D. [id number] 26-Jun-2001 16: 48 Procedure Note Felipe Meadows M.D., M.B.A. - 06/13/2017 26-Jun-2001 13:32:00 Exam: MRI Hd &MRA N k wo&w &MRA Hd wo Indications: MRI MRA head and neck w/uzma ^bolus lanisocoria, lt arm ORIGINAL REPORT - 26-Jun-2001 16:48:00 Brain MR with contrast, contrast enhance d neck MRA, [place] MRA: Brain MR: No intracranial [...] or s ignificant stenosis. No vascular anomalies. [place] MRA: Normal examination . No evidence of vascular anomaly. No occlusion or significant stenosis. ([id number]) Ind: 110.543 Dia.120 Electronically signed by: Felipe Meadows M.D. [id number] 26-Jun-2001 16: 48 Jj Correia M.D. IMG MRI PROCEDURES EEG routine - awake and sleep (06/26/2001 10:16 AM CDT) Specimen (Source) Anatomical Collection Method Collection Time Re ceived Time Location / / Volume Laterality 06/26/2001 10:16 AM CDT [facility] RADIOLOGY SYSTEM - 06/26/2001 10:16 AM CDT ?? 26 Jun 2001 ? Electroencephalography ?Final Report ? Referring Physician: ??Nora ?Date: ??26 Jun 2001 ?? EEG Program Control Analyst: ? Jimenez zuleta [id number] ?? Clinical Problem: ? Spell- r/o s [...] were activated by ?? sleep. ?? An surveillance system monitor during the recording showed a normal sinus rhythm with a rate of 52-61/minute, and an oximeter during a ?? portion of the recording showed a sa turation of 97-99 percent. Jimenez Jimenez (Signature date Jun 2001 14:14) Procedure Note Leoncio Jimenez M.D., Ph.D. - 26 Jun 2001 Electroencephalography Fin al Report Referring Physician: Nora Date : 26 Jun 2001 EEG Program Control Analyst: Jimenez Jimenez [id number] Clinical Problem: Spell- r/o sz CLINICAL INTERPRETATION: [...] no abnormalities were activated by sleep. An surveillance system monitor during the recording melony wed a normal sinus rhythm with a rate of 52-61/minute, and an oximeter during a portion of the recording showed a satur ation of 97-99 percent. Jimenez Jimenez (Signature date Jun 2001 14:14) Historical Provider NEUROLOGY ORDERABLES Performing Organization Address City/State/ZIP Code Phon e Number HX [facility] [address] [place] [address], U ECG 12 Lead (06/25/2001 7:20 PM CDT) Specimen (Source) Anatomical Collection Method Collection Time Re ceived Time Location / / Volume Laterality 06/25/2001 7:20 PM CDT [facility] RADIOLOGY SYSTEM - 06/26/2001 4:46 AM CDT [id number] 19:20 VENTRICULAR RATE 66 Normal sinus rhythm Left atrial enlargement Otherwise normal ECG Previous tracing exists but is not avail able for comparison 12026^MINA ??^ANIKET Procedure Note Aniket Cruz M.D. - 06/02/2017Form atting of this note might be different from the original. [id number] 19:20 VENTRICULAR RATE 66 Normal sinus rhythm Left atrial enlargement Otherwise normal ECG Previous tracing exists but is not avail able for comparison 37043^MINA ALVARADO^ANIKET Historical Provider ECG ORDERABLES Performing Organization Address City/State/ZIP Code Phon e Number HX [facility] [address] [place] [address], U SA documented in this encounter Visit Diagnoses Not on filedocumented in this encounter
--- OUTSIDE RECORDS SUMMARY | 2022-02-12 17:41 | XMS_ITS | Encounter Summary ---
:1970 Author Organization [facility] Address [address] [place] [address] Care Team Providers Name Role Phone Unavailable Primary Care Provider Unavailable Encounter Details Date Type Department Care Team Description 05/11/2004 Hospital Encounter HX [facility] Shahriar Marina M.D. [address] [place] [phone] (Wo rk) Social History Tobacco [...] Historical Provider Ser - 05/11/2004 12:00 AM REPORTS ANALYSIS MANAGER [id number] SURGERY SCHEDULE CHECKLIST Patient Name: Laura Novak Date of : 1970 Gender: female Patient Phone numbers: [phone] (home) [phone] (work), (cell)[phone] Surgeon: Butch Mitchell M.D. DATE OF SURGERY: 06/06/2004 TIME OF SURGERY: TBD Place of Surgery: [place] Procedure/CPT Code: [id number] Diagnosis (reason for surgery)/Diagnosis Code: No diagnosis [...] the patient's primary location. Insurance/MA/WC ID number: [id number] Group #: {:if no insurance information please forward to [facility] CREDIT} Precertification Required? {to be completed by finance:[id number]} Credit Approval: {:to be completed by credit} DISCHARGE PLANNING ASSESSMENT: Plan after Discharge: {[facility] RESIDENT:[id number]} Resident of: {[facility]:[id number]} How are you getting home/to other facility after discharge from hospital? Telephone #: TRIGGERS FOR MORE COMPLETE DISCHARGE PLANS: {[facility] DC TRIGGER PLANS:959693} Person responsible for consent for procedure? {[facility] RESPONSIBLE PERSONS:428795} Patient {does:887881::does not} need further assessment to determine ability to provide for continued care and for activities of daily living (ADL's). RECOMMENDED DISCHARGE PLAN: Concerns: Referrals Completed: PREOP EDUCATION Date of Pre-0p Class: Hospital Information given: {YES IS DEFAULT/NO :337297::YES} Pt Education booklets: Pre-op letter for OOT [...] SCHEDULING P RW P RW PATIENT ACCOUNTS ([facility]) Source[facility] Document Id: [id number] documented in this encounter Plan of Treatment Not on filedocumented as of this encounter Visit Diagnoses Not on filedocumented in this encounter
--- OUTSIDE RECORDS SUMMARY | 2022-02-12 17:41 | XMS_ITS | Encounter Summary ---
:1970 Author Organization [facility] Address [address] [place] [address] Care Team Providers Name Role Phone Unavailable Primary Care Provider Unavailable Encounter Details Date Type Department Care Team Description 04/01/2007 Hospital Encounter HX [facility] Yonas Lopez, INPT/OBSRV M.D. [address] [place] [phone] (Wo rk) Social [...]
--- OUTSIDE RECORDS SUMMARY | 2022-02-12 17:41 | XMS_ITS | Encounter Summary ---
:1970 Author Organization [facility] Address [address] [place] [address] Care Team Providers Name Role Phone Unavailable Primary Care Provider Unavailable Encounter Details Date Type Department Care Team Description 06/07/2004 Hospital Encounter HX NO MAPPING Butch Mitchell M.D. [facility] [place], [place] [address] (Wo rk) Social History [...] Historical Provider Ser - 06/07/2004 12:00 AM HALL COORDINATOR [id number] Name: Laura Novak Birthdate: 1970 SSN: [id number] [facility] Allergy: Review of patient's allergies indicates no [...] Call if heavy bleeding, severe cramps, or lebo947.4. Diet: regular Appointment(s): To see MD. Call for appointment with surgeon since you go to [place]. I have all of my belongings . I understand my discharge instructions. My medications were reviewed with me. Patient's Signature: Nurse Discharging this patient signature: RN Signature & Date: Lady Phan RN Date: 06/07/2004 Please see paper chart for additional discharge documentation info: (time, how & by). Source: [facility] Document Id: [id number] documented in this encounter Plan of Treatment Not on filedocumented as of this encounter Visit Diagnoses Not on filedocumented in this encounter
--- OUTSIDE RECORDS SUMMARY | 2022-02-12 17:41 | XMS_ITS | Encounter Summary ---
:1970 Author Organization [facility] Address [address] [place] [address] Care Team Providers Name Role Phone Unavailable [...]
--- OUTSIDE RECORDS SUMMARY | 2022-02-12 17:41 | XMS_ITS | Encounter Summary ---
:1970 Author Organization [facility] Address [address] [place] [address] Care Team Providers Name Role Phone Unavailable Primary Care Provider Unavailable Encounter Details Date Type Department Care Team Description 08/06/2009 Hospital Encounter HX [facility] CAM INPT/OBSRV Brenda Garvey M.D. [address] [place] [phone] (Wo rk) Social History Tobacco [...]
--- OUTSIDE RECORDS SUMMARY | 2022-02-12 17:41 | XMS_ITS | Encounter Summary ---
:1970 Author Organization [facility] Address [address] [place] [address] Care Team Providers Name Role Phone Unavailable Primary Care Provider Unavailable Encounter Details Date Type Department Care Team Description 06/21/2009 Hospital Encounter HX [facility] CAM INPT/OBSRV Alaina Larkin P.A.-C. [address] [place] [address] (Wo rk) Social History Tobacco [...]
--- OUTSIDE RECORDS SUMMARY | 2022-02-12 17:41 | XMS_ITS | Encounter Summary ---
:1970 Author Organization [facility] Address [address] [place] [address] Care Team Providers Name Role Phone Unavailable [...] weakne ss ORIGINAL REPORT - 25-Jun-2001 21:38:00 ([id number]) ?? Noncontrast head CT is neg ative. Ind: 101.5424 ?? Dia.120 ?? Electronically signed by: ?? Mamta Ford [phone] ([id number]) 25-Jun-2001 2 1:38 I have reviewed the films/images and agr ee with the above interpretation. Electronically signed by: ?? Chan Anaya MD. ??[id number] 26-Jun-2001 08:55 Procedure Note Abdoulaye Anaya M.D. - 06/13/2017Formattin g of this note might be different from the original. 25-Jun-2001 20:33:00 Exam: CT Head wo Indications: Left and right sided weakne ss ORIGINAL REPORT - 25-Jun-2001 21:38:00 ([id number]) Noncontrast head CT is negati ve. Ind: 101.5424 Dia.120 Electronically signed by: Mamta Ford [phone] ([id number]) 25-Jun-2001 2 1:38 I have reviewed the films/images and agr ee with the above interpretation. Electronically signed by: Chan Anaya MD. [id number] 26-Jun-2001 08:55 Alex Ledbetter M.D. IMMary CT PROCEDURES documented in this encounter Visit Diagnoses Not on filedocumented in this encounter
--- OUTSIDE RECORDS SUMMARY | 2022-02-12 17:41 | XMS_ITS | Encounter Summary ---
:1970 Author Organization [facility] Address [address] [place] [address] Care Team Providers Name Role Phone Unavailable [...]
--- OUTSIDE RECORDS SUMMARY | 2022-02-12 17:41 | XMS_ITS | Encounter Summary ---
:1970 Author Organization [facility] Address [address] [place] [address] Care Team Providers Name Role Phone Unavailable Primary Care Provider Unavailable Encounter Details Date Type Department Care Team Description 09/08/2007 Hospital Encounter HX [facility] CAM INPT/OBSRV Lindy Palacios M.D. [address] [place], [place] [address] (Wo rk) Social History [...]
--- OUTSIDE RECORDS SUMMARY | 2022-02-12 17:41 | XMS_ITS | Encounter Summary ---
:1970 Author Organization [facility] Address [address] [place] [address] Care Team Providers Name Role Phone Unavailable [...]
--- OUTSIDE RECORDS SUMMARY | 2022-02-12 17:41 | XMS_ITS | Encounter Summary ---
:1970 Author Organization [facility] Address [address] [place] [address] Care Team Providers Name Role Phone Unavailable Primary Care Provider Unavailable Encounter Details Date Type Department Care Team Description 08/27/2007 Hospital Encounter HX [facility] CAM INPT/OBSRV Lindy Palacios M.D. [address] [place], [place] [address] (Wo rk) Social History [...]
--- OUTSIDE RECORDS SUMMARY | 2022-02-12 17:41 | XMS_ITS | Encounter Summary ---
:1970 Author Organization [facility] Address [address] [place] [address] Care Team Providers Name Role Phone Unavailable [...]
--- OUTSIDE RECORDS SUMMARY | 2022-02-12 17:41 | XMS_ITS | Encounter Summary ---
:1970 Author Organization [facility] Address [address] [place] [address] Care Team Providers Name Role Phone Unavailable [...]
--- OUTSIDE RECORDS SUMMARY | 2022-02-12 17:41 | XMS_ITS | Encounter Summary ---
:1970 Author Organization [facility] Address [address] [place] [address] Care Team Providers Name Role Phone Unavailable Primary Care Provider Unavailable Encounter Details Date Type Department Care Team Description 10/19/2007 - Hospital Encounter HX [facility]ARR[facility] Yonas [place], 10/20/2007 INPT/OBSRV M.D. [address] Rogelio Guerrero [place] [phone] (Wo rk) [...] for the very basics like Not v loir hard 06/22/2019 food, housing, medical care, and [...] GARZA RN on 26 February 2013 16:01:16 TECHNOLOGY COACH noted Addendum by LAVELL BUCHANAN RN, HOOP MAKER MACHINE on 26 February 2013 12:25:19 TECHNOLOGY COACH Approved with modifications: Order:FLUoxetine (Prozac 40 mg oral capsule) 1 cap(s) PO Daily Qty: 90 cap(s) Refills: 0 Substitutions Allowed Route To Pharmacy - [facility] Signed by LAVELL BUCHANAN RN, HOOP MAKER MACHINE 02/26/2013 12:25:00 From: STIVEN GARZA RN To: LAVELL BUCHANAN RN, HOOP MAKER MACHINE; STIVEN GARZA RN; Sent: 02/26/2013 08:53:31 TECHNOLOGY COACH Subject: Med Management On hold pending signature Order:FLUoxetine (Prozac 40 mg oral capsule) 1 cap(s) PO Daily Qty: 30 cap(s) Refills: 11 Substitutions Allowed Route To Pharmacy - [facility] review refill. Karen [facility] Document Id: [id number] Miscellaneous - Molly Gomez M.D. - 05/01/2012 9:12 AM TECHNOLOGY COACH biopsy results From: MOLLY MONTIEL MD To: MOLLY MONTIEL MD; Sent: 05/01/2012 09:12:10 TECHNOLOGY COACH Subject: biopsy results Spoke with Laura gunter: her biopsy results which showed a seborrheic keratosis. Discussed that this is noncancerous. Patient reports that it is healing well. She has no other concerns. Source: [employer] Document Id: [id number] documented in this encounter Plan of Treatment Not on filedocumented as of this encounter Visit Diagnoses Not on filedocumented in this encounter
--- OUTSIDE RECORDS SUMMARY | 2022-02-12 17:41 | XMS_ITS | Encounter Summary ---
:1970 Author Organization [facility] Address [address] [place] [address] Care Team Providers Name Role Phone Unavailable Primary Care Provider Unavailable Encounter Details Date Type Department Care Team Description 06/18/2004 Hospital Encounter HX [facility] Shahriar Marina M.D. [address] [place] [phone] (Wo rk) Social History Tobacco [...] Provider Kiran - 06/18/2004 12:00 AM CDT [id number] Patient is returning your call for her surgery results. She had surgery 06/06/2004 with you. Her # [phone]. Source[facility] Document Id: [id number] documented in this encounter Plan of Treatment Not on filedocumented as of this encounter Visit Diagnoses Not on filedocumented in this encounter
--- OUTSIDE RECORDS SUMMARY | 2022-02-12 17:41 | XMS_ITS | Encounter Summary ---
:1970 Author Organization [facility] Address [address] [place] [address] Care Team Providers Name Role Phone Unavailable Primary Care Provider Unavailable Encounter Details Date Type Department Care Team Description 10/23/2007 Hospital Encounter HX [facility] Yonas Lopez, INPT/OBSRV M.D. [address] [place] [phone] (Wo rk) Social [...]
[2022-02-15 11:55] LABS: Follicle Stimulating Hormone 59.5 IU/L
== END 2022-02-12 17:31 | disposition home or self-care (01) ==
LOC: KYNREF 17:31
PROVIDERS: PCP Nurse Practitioner Family; Visit Provider Nurse Practitioner Family
DX: N95.1 Menopausal and female climacteric states (principal)
CPT/HCPCS: 83001

== ENCOUNTER 2022-09-03 09:01 | Outpatient (CLI) | payer BC, SELFPAY | END 2022-09-03 09:02 | disposition home or self-care (01) | LOC: KYNREF 16:09 | PROVIDERS: PCP Nurse Practitioner Family; Visit Provider Nurse Practitioner Family | DX: E03.9 Hypothyroidism, unspecified (principal); E66.9 Obesity, unspecified | CPT/HCPCS: 84443 ==

== ENCOUNTER 2022-09-24 14:49 | Outpatient (CLI) | payer BC, SELFPAY | END 2022-09-24 14:50 | disposition home or self-care (01) | PROVIDERS: PCP Nurse Practitioner Family; Visit Provider Nurse Practitioner Family | DX: M25.50 Pain in unspecified joint (principal); E03.9 Hypothyroidism, unspecified; I10 Essential (primary) hypertension; E78.5 Hyperlipidemia, unspecified | CPT/HCPCS: 84443; 85651; 86039; 86140; 86431 ==

== ENCOUNTER 2023-07-15 11:58 | Outpatient (CLI) | payer OTHER, SELFPAY ==
--- OUTSIDE RECORDS SUMMARY | 2023-07-15 12:00 | XMS_ITS | Encounter Summary ---
Author Name Unknown Organization [facility] Address [address] [place] [address] Care Team Providers Care Can Maker Name Role Phone Tiffanie Mcgovern NP Primary Care Provider Encounter Details Date Type Department Care Team (Latest Contact Info) Description 07/11/2023 Travel Social History Tobacco Use Types Packs/Day Years Used Date Smoking Tobacco: Former Smokeless Tobacco: Never Comments:10+ years ago quit. Adolescent Education Answer Date Record ed Getting School Help Needed Not on file 12/14 Sex and Gender Information Value Date Recorded Sex Assigned at Not on file Gender Identity Not on file Sexual Orientation Not on file documented as of this encounter Plan of Treatment Not on file documented as of this encounter Visit Diagnoses Not on filedocumented in this encounter Care Teams Can Maker Relationship Specialty Start Date End Date Tiffanie Mcgovern NP [address] [address] PCP - General 07/11/23 documented as of this encounter
--- OUTSIDE RECORDS SUMMARY | 2023-07-15 12:00 | XMS_ITS | Referral Summary ---
Author Name Unknown Organization [facility] Address [address] [place] [id number] Care Team Providers Care Beauty Director Name Role Phone Tiffanie Mcgovern NP Primary Care Provider [phone] Encounters Date Type Department Care Team Description 07/11/2023 Travel 07/11/2023 9:12 AM CDT - 07/11/2023 1:16 PM CDT Emergency [facility] [address] [place] [address] Amara Bliss MD Chest pain, unspecified type; Upper abdominal pain; Hypertension, unspecified type; Pulmonary nodules; Nonintractable episodic headache, unspecified headache type Discharge Disposition: Home or Self Care from Last 3 Months Allergies No known active allergies Medications Medication Sig Dispensed Refills Start Date End Date Status simvastatin (ZOCOR) 20 MG tablet [SIMVASTATIN (ZOCOR) 20 MG TABLET] 05/19/2017 Active verapamil (VERELAN PM) 180 MG 24 hr capsule [VERAPAMIL (VERELAN PM) 180 MG 24 HR CAPSULE] 05/19/2017 Active methocarbamol (ROBAXIN) 500 MG tabletIndications:Neck pain,Neck strain,Myofascial pain [METHOCARBAMOL (ROBAXIN) 500 MG TABLET] 1-2 tabs po q HS. May cause drowsiness. Do not drive while taking this medication. 60 tablet 3 06/03/2017 Active traZODone (DESYREL) 50 MG tablet [TRAZODONE (DESYREL) 50 MG TABLET] 03/12/2018 Active nabumetone (RELAFEN) 500 MG tabletIndications:Neck pain,Thoracic spine pain [NABUMETONE (RELAFEN) 500 MG TABLET] TAKE ONE TO TWO TABLETS (500 TO 1,000MG) BY MOUTH TWICE DAILY NEEDED FOR PAIN 60 tablet 0 08/12/2018 Active tiZANidine (ZANAFLEX) 2 MG tabletIndications:Myof ascial pain,Sleep difficulties [TIZANIDINE (ZANAFLEX) 2 MG TABLET] TAKE ONE TO TWO TABLETS (2 TO 4 MG TOTAL) BY MOUTH TWICE DAILY NEEDED FOR MUSCLE SPASMS 30 tablet 0 09/07/2018 Active Social History Tobacco Use Types Packs/Day Years Used Date Smoking Tobacco: Former Smokeless Tobacco: Never Comments:10+ years ago quit. Adolescent Education Answer Date Record ed Getting School Help Needed Not on file 12/14 Sex and Gender Information Value Date Recorded Sex Assigned at Not on file Gender Identity Not on file Sexual Orientation Not on file Last Filed Vital Signs Vital Sign Reading Time Taken Comments Blood Pressure 148/101 07/11/2023 1:15 PM CDT Pulse 60 07/11/2023 10:40 AM CDT Temperature 36.8 ??C (98.3 ??F) 07/11/2023 9:08 AM CD T Respiratory Rate 11 07/11/2023 10:30 AM CDT Oxygen Saturation 99% 07/11/2023 1:15 PM CDT Inhaled Oxygen Concentration - - Weight 90.7 kg (200 lb) 07/11/2023 9:06 AM CDT Height 175.3 cm (5' 9) 07/11/2023 9:06 AM CDT Body Mass Index 29.53 07/11/2023 9:06 AM CDT Plan of Treatment Not on file Procedures Procedure Name Priority Date/Time Associated Diagnosis Comments CT AORTIC SURVEY W CONTRAST STAT 07/11/2023 10:55 AM CDT CBC WITH PLATELETS & DIFFERENTIAL STAT 07/11/2023 9:27 AM CDT EXTRA RED TOP TUBE STAT 07/11/2023 9: 27 AM CDT EXTRA TUBE STAT 07/11/2023 9:27 AM CDT NT PROBNP INPATIENT STAT 07/11/2023 9 :27 AM CDT D DIMER QUANTITATIVE STAT 07/11/2023 9:27 AM CDT EXTRA BLUE TOP TUBE STAT 07/11/2023 9 :27 AM CDT CBC WITH PLATELETS AND DIFFERENTIAL STAT 07/11/2023 9:27 AM CDT EXTRA TUBE STAT 07/11/2023 9:27 AM CDT TROPONIN T, HIGH SENSITIVITY STAT 07/11/2023 9:27 AM CDT LIPASE STAT 07/11/2023 9:27 AM CDT COMPREHENSIVE METABOLIC PANEL STAT 07/11/2023 9:27 AM CDT EKG 12-LEAD, TRACING ONLY STAT 07/11/2023 9:01 AM CDT MA SCREENING BILATERAL W/ ROD Routine 10/27/2018 7:45 AM CDT Screening mammogram, encounter for from Last 3 Months or Most Recently Relevant to Health Maintenance Results * CT Aortic Survey w Contrast (07/11/2023 10:55 AM CDT) Anatomical Region Laterality Modality Abdomen/Pelvis, Chest, SUBRA D CT BODY, UMP CT CHEST, UMP CT ABDOMEN PELVIS, RAD CT Computed Tomography Impressions 07/11/2023 11:32 AM CDT IMPRESSION: 1. ??No aortic aneurysm or dissection. No acute findings in the chest, abdomen and pelvis. 2. ??Few small pulmonary nodules measuring up to 5 mm. See follow-up guidelines. REFERENCE: Guidelines for Management of Incidental Pulmonary Nodules Detected on CT Images: From the Fleischner Society 2017. Guidelines apply to incidental nodules in patients who are 35 years or older. Guidelines do not apply to lung cancer screening, patients with immunosuppression, or patients with known primary cancer. MULTIPLE NODULES Nodule size <6 mm Low-risk patients: No follow-up needed. High-risk patients: Optional follow-up at 12 months. ODIN FELICIANO MD SYSTEM ID: ??[id number] Narrative 07/11/2023 11:[address] AORTIC SURVEY W CONTRAST 07/11/2023 10:55 AM CLINICAL HISTORY: chest/abd pain, hypertension TECHNIQUE: CT aortic angiogram was performed with contrast. Multiplanar reformats were obtained. Dose reduction techniques were used. CONTRAST: 72mL Isovue-370 COMPARISON: None. FINDINGS: CT aortic angiogram: No aortic aneurysm or dissection. Widely patent origins of the great vessels from the aortic arch. Conventional mesenteric arterial anatomy without stenosis. Patent bilateral renal, common iliac, external and internal iliac and common femoral artery without significant stenosis. Minimal calcified atheromatous plaque in the infrarenal abdominal aorta. LUNGS AND PLEURA: The lungs are clear. No pleural effusion. A few small pulmonary nodules. For example, there is a 5 mm nodule along the right minor fissure, 4 mm subpleural right middle lobe nodule (7/174), 5 mm subpleural nodule in the left upper lobe (7/151) and 5 mm subpleural nodule in the right middle lobe (7/177). MEDIASTINUM/AXILLAE: No lymphadenopathy. No central pulmonary emboli. No pericardial effusion. No coronary artery calcifications. HEPATOBILIARY: Normal. PANCREAS: Normal. SPLEEN: Normal. ADRENAL GLANDS: Normal. KIDNEYS/BLADDER: Normal. BOWEL: No small bowel or colonic obstruction or inflammatory changes. Normal appendix. PELVIC ORGANS: Hysterectomy. ADDITIONAL FINDINGS: No lymphadenopathy. No ascites or fluid collections. MUSCULOSKELETAL: No suspicious lesions in the bones. Procedure Note Odin Feliciano MD - 07/11/2023 CT AORTIC SURVEY W CONTRAST 07/11/2023 10:55 AM CLINICAL HISTORY: chest/abd pain, hypertension TECHNIQUE: CT aortic angiogram was performed with contrast. Multiplanar reformats were obtained. Dose reduction techniques were used. CONTRAST: 72mL Isovue-370 COMPARISON: None. FINDINGS: CT aortic angiogram: No aortic aneurysm or dissection. Widely patent origins of the great vessels from the aortic arch. Conventional mesenteric arterial anatomy without stenosis. Patent bilateral renal, common iliac, external and internal iliac and common femoral artery without significant stenosis. Minimal calcified atheromatous plaque in the infrarenal abdominal aorta. LUNGS AND PLEURA: The lungs are clear. No pleural effusion. A few small pulmonary nodules. For example, there is a 5 mm nodule along the right minor fissure, 4 mm subpleural right middle lobe nodule (7/174), 5 mm subpleural nodule in the left upper lobe (7/151) and 5 mm subpleural nodule in the right middle lobe (7/177). MEDIASTINUM/AXILLAE: No lymphadenopathy. No central pulmonary emboli. No pericardial effusion. No coronary artery calcifications. HEPATOBILIARY: Normal. PANCREAS: Normal. SPLEEN: Normal. ADRENAL GLANDS: Normal. KIDNEYS/BLADDER: Normal. BOWEL: No small bowel or colonic obstruction or inflammatory changes. Normal appendix. PELVIC ORGANS: Hysterectomy. ADDITIONAL FINDINGS: No lymphadenopathy. No ascites or fluid collections. MUSCULOSKELETAL: No suspicious lesions in the bones. IMPRESSION: 1. No aortic aneurysm or dissection. No acute findings in the chest, abdomen and pelvis. 2. Few small pulmonary nodules measuring up to 5 mm. See follow-up guidelines. REFERENCE: Guidelines for Management of Incidental Pulmonary Nodules Detected on CT Images: From the Fleischner Society 2017. Guidelines apply to incidental nodules in patients who are 35 years or older. Guidelines do not apply to lung cancer screening, patients with immunosuppression, or patients with known primary cancer. MULTIPLE NODULES Nodule size <6 mm Low-risk patients: No follow-up needed. High-risk patients: Optional follow-up at 12 months. ODIN FELICIANO MD SYSTEM ID: [id number] Amara Bliss MD [place] [facility] ORDERABLE S * Extra Red Top Tube (07/11/2023 9:27 AM CDT) Pathologist [facility] Hold Specimen [facility] 07/11/2023 11:01 AM CDT LABORATORY Blood VENOUS LINE / Unknown Venipuncture / Unknown 07/11/2023 9:27 AM CDT 07/11/2023 9:59 AM CDT Amara Bliss MD LAB - BLOOD [facility] Organization Address City/State/ZIP Co de Phone Number [facility] [address] Lab (1st floor, no room number) [place] [address] * Extra Blue Top Tube (07/11/2023 9:27 AM CDT) Hold Specimen [facility] 07/11/2023 10:46 AM CDT [facility] LABORATORY Blood VENOUS LINE / Unknown Venipuncture / Unknown 07/11/2023 9:27 AM CDT 07/11/2023 9:34 AM CDT Amara Bliss MD LAB - BLOOD [facility] [address] Lab (1st floor, no room number) [place] [phone] * CBC with platelets and differential (07/11/2023 9:27 AM CDT) WBC Count 5.2 4.0 - 11.0 10e3/uL 07/11/2023 9:37 AM CDT [facility] LAB[facility]ATORY RBC Count 4.58 3.80 - 5.20 10e6/uL 07/11/2023 9:37 AM CDT [facility] Hemoglobin 14.3 11.7 - 15.7 g/dL 07/11/2023 9:37 AM CDT [facility] Hematocrit 41.1 35.0 - 47.0 % 07/11/2023 9:37 AM CDT [facility] MCV 90 78 - 100 fL 07/11/2023 9:37 AM CDT [facility] MCH 31.2 26.5 - 33.0 pg 07/11/2023 9:37 AM CDT [facility] MCHC 34.8 31.5 - 36.5 g/dL 07/11/2023 9:37 AM CDT [facility] RDW 11.9 10.0 - 15.0 % 07/11/2023 9:37 AM CDT [facility] Platelet Count 286 150 - 450 10e3/uL 07/11/2023 9:37 AM CDT [facility] % Neutrophils 61 % 07/11/2023 9:37 AM CDT [facility] % Lymphocytes 28 % 07/11/2023 9:37 AM CDT [facility] % Monocytes 6 % 07/11/2023 9:37 AM CDT [facility] % Eosinophils 4 % 07/11/2023 9:37 AM CDT [facility] % Basophils 1 % 07/11/2023 9:37 AM CDT [facility] % Immature Granulocytes 0 % 07/11/2023 9:37 AM CDT [facility]ORY NRBCs per 100 WBC 0 <1 /100 024 9:37 AM CDT [facility] Absolute Neutrophils 3.2 1.6 - 8.3 10e3/uL 07/11/2023 9:37 AM CDT [facility] Absolute Lymphocytes 1.5 0.8 - 5.3 10e3/uL 07/11/2023 9:37 AM CDT [facility] Absolute Monocytes 0.3 0.0 - 1.3 10e3/uL 07/11/2023 9:37 AM CDT [facility] Absolute Eosinophils 0.2 0.0 - 0.7 10e3/uL 07/11/2023 9:37 AM CDT [facility] Absolute Basophils 0.1 0.0 - 0.2 10e3/uL 07/11/2023 9:37 AM CDT [facility] Absolute Immature Granulocytes 0.0 <=0.4 10e3/uL 07/11/2023 9:37 AM CDT [facility] Absolute NRBCs 0.0 10e3/uL 07/11/2023 9:37 AM CDT [facility] Blood VENOUS LINE / Unknown Venipuncture / Unknown 07/11/2023 9:27 AM CDT 07/11/2023 9:34 AM CDT Amara Bliss MD LAB - BLOOD [facility] Organization Address City/State/ZIP Co de Phone Number [facility]AT[facility] [address] Lab (1st floor, no room number) [place] [address] * Troponin T, High Sensitivity (07/11/2023 9:27 AM CDT) [facility] Signature Troponin T, High Sensitivity <6 <=14 ng/L 07/11/2023 9:55 AM CDT [facility] LAB[facility]ATORY Comment: Either a High Sensitivity Troponin T baseline (0 hours) value = 100 ng/L, or an increase in High Sensitivity Troponin T = 7 ng/L at 2 hours compared to 0 hours (2-0 hours), suggests myocardial injury, and urgent clinical attention is required. ?? If the 2-0 hours increase is <7 ng/L, a High Sensitivity Troponin T result above gender-specific reference ranges warrants further evaluation. Recommendations for further evaluation include correlation with clinical decision-making tool (e.g., HEART), a 3rd High Sensitivity Troponin T test 2 hours after the 2nd (a 20% change from baseline would represent concern), admission for observation, close PCC/cardiology follow-up, or urgent outpatient provocative testing. Blood VENOUS LINE / Unknown Venipuncture / Unknown 07/11/2023 9:27 AM CDT 07/11/2023 9:34 AM CDT Amara Bliss MD LAB - BLOOD [facility] LABORATORY [facility] [address] Lab (1st floor, no room number) [place] [address] * BNP (07/11/2023 9:27 AM CDT) [facility] N terminal Pro BNP Inpatient 152 0 - 900 pg/mL 07/11/2023 10:15 AM CDT LABORATORY Comment: Reference range shown and results flagged as abnormal are suggested inpatient cut points for confirming diagnosis if CHF in an acute setting. Establishing a baseline value for each individual patient is useful for follow-up. An inpatient or emergency department NT-proPBNP <300 pg/mL effectively rules out acute CHF, with 99% negative predictive value. The outpatient non-acute reference range for ruling out CHF is: 0-125 pg/mL (age 18 to less than 75) 0-450 pg/mL (age 75 yrs and older) Blood VENOUS LINE / Unknown Venipuncture / Unknown 07/11/2023 9:27 AM CDT 07/11/2023 9:34 AM CDT Amara Bliss MD LAB - BLOOD [facility] LABORATORY [facility] [address] Lab (1st floor, no room number) [place] [address] * Lipase (07/11/2023 9:27 AM CDT) Lipase 44 13 - 60 U/L 07/11/2023 9:55 AM CDT LABORATORY Blood VENOUS LINE / Unknown Venipuncture / Unknown 07/11/2023 9:27 AM CDT 07/11/2023 9:34 AM CDT Amara Bliss MD LAB - BLOOD [place] Performing Organization Address [facility]/ZIP Co de Phone Number LABORATORY [facility] [address] Lab (1st floor, no room number) [place] [address] * D dimer quantitative (07/11/2023 9:27 AM CDT) D-Dimer Quantitative 0.44 0.00 - 0.50 ug/mL FEU 07/11/2023 10:13 AM CDT LABORATORY Blood VENOUS LINE / Unknown Venipuncture / Unknown 07/11/2023 9:27 AM CDT 07/11/2023 9:34 AM CDT Narrative [facility] LABORATORY - 07/11/2023 10:13 AM CDT This D-dimer assay is intended for use in conjunction with a clinical pretest probability assessment model to exclude pulmonary embolism (PE) and deep venous thrombosis (DVT) in outpatients suspected of PE or DVT. The cut-off value is 0.50 ug/mL FEU. For patients 50 years of age or older, the application of age-adjusted cut-off values for D-Dimer may increase the specificity without significant effect on sensitivity. The literature suggested calculation age adjusted cut-off in ug/L = age in years x 10 ug/L. The results in this laboratory are reported as ug/mL rather than ug/L. The calculation for age adjusted cut off in ug/mL= age in years x 0.01 ug/mL. For example, the cut off for a 76 year old male is 75 x 0.01 ug/mL = 0.76 ug/mL (760 ug/L). M Adela et al. Age adjusted D-dimer cut-off levels to rule out pulmonary embolism: The ADJUST-PE Study. LIONEL 2014;311:6666-3962.; HJ Tatiana et al. Diagnostic accuracy of conventional or age adjusted D-dimer cutoff values in older patients with suspected venous thromboembolism. Systemic review and meta-analysis. BMJ 2013:346:f2492. Amara Bliss MD LAB - BLOOD [facility] LAB[facility]AT[facility] [address] [facility] Lab (1st floor, no room number) [place] [address] * (ABNORMAL) Comprehensive metabolic panel (07/11/2023 9:27 AM CDT) [facility] Sodium 137 135 - 145 mmol/L 07/11/2023 9:55 AM CDT [facility] LABORATORY Comment:Reference intervals for this test were updated on 12/03/2022 to more accurately reflect our healthy population. There may be differences in the flagging of prior results with similar values performed with this method. Interpretation of those prior results can be made in the context of the updated reference intervals. Potassium 4.1 3.4 - 5.3 mmol/L 07/11/2023 9:55 AM CDT [facility] LAB[facility]ATORY Carbon Dioxide (CO2) 26 22 - 29 mmol/L 07/11/2023 9:55 AM CDT [facility] LAB[facility] Anion Gap 11 7 - 15 mmol/L 07/11/2023 9:55 AM CDT [facility] LAB[facility] Urea Nitrogen 5.9(L) 6.0 - 20.0 mg/dL 07/11/2023 9:55 AM CDT [facility] LAB[facility] Creatinine 0.70 0.51 - 0.95 mg/dL 07/11/2023 9:55 AM CDT [facility] LAB[facility] GFR Estimate >90 >60 mL/min/1. 73m2 07/11/2023 9:55 AM CDT [facility] Calcium 9.9 8.6 - 10.0 mg/dL 07/11/2023 9:55 AM CDT [facility] Chloride 100 98 - 107 mmol/L 07/11/2023 9:55 AM CDT [facility] Glucose 102(H) 70 - 99 mg/dL 07/11/2023 9:55 AM CDT [facility] Alkaline Phosphatase 56 40 - 150 U/L 07/11/2023 9:55 AM CDT [facility] Comment:Reference intervals for this test were updated on 01/21/2023 to more accurately reflect our healthy population. There may be differences in the flagging of prior results with similar values performed with this method. Interpretation of those prior results can be made in the context of the updated reference intervals. AST 28 0 - 45 U/L 07/11/2023 9:55 AM CDT [facility] Comment:Reference intervals for this test were updated on 08/19/2022 to more accurately reflect our healthy population. There may be differences in the flagging of prior results with similar values performed with this method. Interpretation of those prior results can be made in the context of the updated reference intervals. ALT 21 0 - 50 U/L 07/11/2023 9:55 AM CDT [facility] Comment:Reference intervals for this test were updated on 08/19/2022 to more accurately reflect our healthy population. There may be differences in the flagging of prior results with similar values performed with this method. Interpretation of those prior results can be made in the context of the updated reference intervals. Protein Total 7.8 6.4 - 8.3 g/dL 07/11/2023 9:55 AM CDT [facility] Albumin 4.7 3.5 - 5.2 g/dL 07/11/2023 9:55 AM CDT [facility] Bilirubin Total 0.5 <=1.2 mg/dL 07/11/2023 9:55 AM CDT [facility] Blood VENOUS LINE / Unknown Venipuncture / Unknown 07/11/2023 9:27 AM CDT 07/11/2023 9:34 AM CDT Amara Bliss MD LAB - BLOOD [facility] Organization Address City/State/ZIP Co de Phone Number [facility] LABORATORY [facility] [address] [facility] Lab (1st floor, no room number) [place] [address], [facility] * EKG 12-lead, tracing only (07/11/2023 9:01 AM CDT) Systolic Blood Pressure mmHg RADIOLOGY RESULTS Diastolic Blood Pressure mmHg RADIOLOGY RESULTS Ventricular Rate 60 BPM RAD IOLOGY RESULTS Atrial Rate 60 BPM RADIOLOG Y RESULTS LA Interval 162 ms RADIOLOG Y RESULTS QRS Duration 90 ms RADIOLO GY RESULTS QT 454 ms RADIOLOGY RESULTS QTc 454 ms RADIOLOGY RESULTS P [place] 70 degrees RADIOLOGY RESULTS R AXIS 9 degrees RADIOLOGY RESULTS T [place] 44 degrees RADIOLOGY RESULTS Interpretation ECG Sinus rhythm Cannot rule out Anterior infarct , age undetermined Abnormal ECG No previous ECGs available Unconfirmed report - interpretation of this ECG is computer generated - see medical record for final interpretation Confirmed by - EMERGENCY ROOM, PHYSICIAN ([id number]), health editor AL ROBERTS ([id number]) on 07/11/2023 9:18:08 AM RADIOLOGY RESULTS 07/11/2023 9:01 AM CDT 07/11/2023 9:18 AM CDT Amara Bliss MD ECG ORDERABLES RADIOLOGY RESULTS * MA Screen Bilateral w/Rod (10/27/2018 7:45 AM CDT) Anatomical Region Laterality Modality Breast Bilateral Other Narrative 10/27/2018 8:44 AM CDT BILATERAL FULL FIELD DIGITAL SCREENING MAMMOGRAM WITH TOMOSYNTHESIS Performed on: 10/27/18. Compared to: 05/06/2017 Mammo Screening Bilateral and 08/17/2015 Mammo Screening Bilateral Findings: The breasts have scattered areas of fibroglandular densities. There is no radiographic evidence of malignancy. This study was evaluated with the assistance of Computer-Aided Detection. Breast Tomosynthesis was used in interpretation. Repeat routine screening mammogram in one year is recommended. ACR BI-RADS Category 1: Negative Procedure Note Katherin Shirley MD - 08/16/2020 BILATERAL FULL FIELD DIGITAL SCREENING MAMMOGRAM WITH TOMOSYNTHESIS Performed on: 10/27/18. Compared to: 05/06/2017 Mammo Screening Bilateral and 08/17/2015 MammoScreening Bilateral Findings: The breasts have scattered areas of fibroglandular densities.There is no radiographic evidence of malignancy. This study was evaluatedwith the assistance of Computer-Aided Detection. Breast Tomosynthesis wasused in interpretation. Repeat routine screening mammogram in one year is recommended. ACR BI-RADS Category 1: Negative Tiffanie Mcgovern NP IMG MAMMOGRAPHY ORDE ED from Last 3 Months or Most Recently Relevant to Health Maintenance Care Teams Beauty Director Relationship Specialty Start Date End Date Tiffanie Mcgovern NP [address] [address] PCP - General 07/11/23
--- OUTSIDE RECORDS SUMMARY | 2023-07-15 12:00 | XMS_ITS | Clinical Summary ---
Author Name Unknown Organization [facility] Address [address] [place] [id number] Care Team Providers Care Revolving Field Assembler Name Role Phone Tiffanie Mcgovern NP Primary Care Provider Allergies No known active allergies Medications Medication [...] MUSCLE SPASMS 30 tablet 0 09/07/2018 Active Encounters Date Type Department Care Team Description 07/11/2023 9:12 AM CDT - 07/11/2023 1:16 PM CDT Emergency [facility] Emergency Dept [address] [place] [address] Amara Bliss MD Chest pain, unspecified type; Upper abdominal pain; Hypertension, unspecified type; Pulmonary nodules; Nonintractable episodic headache, unspecified headache type Discharge Disposition: Home or Self Care 07/11/2023 Travel from Last 3 Months Family History Medical History Relation Comments Breast Cancer Cousin Relation Status Comments Cousin Social History Tobacco Use Types Packs/Day Years [...] 07/11/2023 9:06 AM CDT Plan of Treatment Health Maintenance Due Date Last Done Comments ADVANCE CARE PLANNING 1969 ANNUAL REVIEW OF HM ORDERS 1969 CT COLONOGRAPHY 1969 FIT 1969 FLEX SIG 1969 LIPID 1969 YEARLY PREVENTIVE VISIT 1969 sDNA (Cologuard) 1969 COLONOSCOPY 08/16/1979 COLORECTAL CANCER SCREENING 08/16/1979 HIV SCREENING 1984 HEPATITIS C SCREENING 08/16/1987 PAP 1990 LUNG CANCER SCREENING 08/16/2019 ZOSTER IMMUNIZATION (1 of 2) 08/16/2019 MAMMO SCREENING 10/27/2020 10/27/2018, 10/09, 05/06/2017, Additional history exists COVID-19 Vaccine (3 - season) 2022 05/03/2020, 04/05/2020 PHQ-2 (once per calendar year) 2023 GLUCOSE 07/10/2026 07/11/2023 DTAP/TDAP/TD IMMUNIZATION (3 - Td or Tdap) 08/30/2027 08/29/2017, 10/24/2005 HEPATITIS B IMMUNIZATION Completed 003, 08/18/2002, 05/19/2002, Additional history exists INFLUENZA VACCINE Completed 12/05/2022, , 12/17/2016, Additional history exists HPV IMMUNIZATION Aged Out No longer e ligible based on patient's age to complete this topic IPV IMMUNIZATION Aged Out No longer e ligible based on patient's age to complete this topic MENINGITIS IMMUNIZATION Aged Out No l onger eligible based on patient's age to complete this topic Pneumococcal Vaccine: Pediatrics (0 to 5 Years) and At-Risk Patients (6 to 64 Years) Aged Out No longer eligible based on patient's age to complete this topic RSV MONOCLONAL ANTIBODY Aged Out No l onger eligible based on patient's age to complete this topic Procedures Procedure Name Priority Date/Time Associated Diagnosis [...] 12 months. ODIN FELICIANO MD SYSTEM ID: [id number] Narrative 07/11/2023 11:[address] AORTIC [...] 12 months. ODIN FELICIANO MD SYSTEM ID: [id number] Amara Bliss MD IMG CT ORDERABLE S * Extra Red Top Tube (07/11/2023 9:27 AM CDT) Hold Specimen [facility] 07/11/2023 11:01 AM CDT LABORATORY Blood VENOUS LINE / Unknown Venipuncture / Unknown 07/11/2023 9:27 AM CDT 07/11/2023 9:59 AM CDT Amara Bliss MD LAB - BLOOD RUBEN WARD [facility] Organization Address City/State/ZIP Co de Phone Number [facility] Acute [facility] Lab [address] [facility] Lab (1st floor, no room number) [place] [address], [facility] * Extra Blue Top Tube (07/11/2023 9:27 AM CDT) Hold Specimen [facility] 07/11/2023 10:46 AM CDT [facility] LABORATORY Blood VENOUS LINE / Unknown Venipuncture / Unknown 07/11/2023 9:27 AM CDT 07/11/2023 9:34 AM CDT Amara Bliss MD LAB - BLOOD RUBEN WARD [facility] Organization Address City/State/ZIP Co de Phone Number [facility] LABORATORY [facility] Care Lab [address] Lab (1st floor, no room number) [place] [address] * CBC with platelets and differential (07/11/2023 [...] NRBCs 0.0 10e3/uL 07/11/2023 9:37 AM CDT LABORATORY Blood VENOUS LINE / Unknown Venipuncture / Unknown 07/11/2023 9:27 AM CDT 07/11/2023 9:34 AM CDT Amara Bliss MD LAB - BLOOD [facility] Organization Address City/State/ZIP Co de Phone Number LABORATORY [facility] [address] Lab (1st floor, no room number) [place] [address] * Troponin T, High Sensitivity (07/11/2023 9:27 AM CDT) [facility] Troponin T, High Sensitivity <6 <=14 ng/L [...] Bliss MD LAB - BLOOD RUBEN WARD [facility] Lab [address] Lab (1st floor, no room number) [place] [address] * BNP (07/11/2023 9:27 AM CDT) [facility] N terminal Pro BNP Inpatient 152 0 [...] Bliss MD LAB - BLOOD RUBEN WARD [facility] Care Lab [address] Lab (1st floor, no room number) [place] [address], [facility] * Lipase (07/11/2023 9:27 AM CDT) Lipase 44 13 - 60 U/L 07/11/2023 9:55 AM CDT [facility] LABORATORY Blood VENOUS LINE / Unknown Venipuncture / Unknown 07/11/2023 9:27 AM CDT 07/11/2023 9:34 AM CDT Amara Bliss MD LAB - BLOOD RUBEN WARD [facility] [address] Lab (1st floor, no room number) [place] [address], [facility] * D dimer quantitative (07/11/2023 9:27 AM CDT) D-Dimer Quantitative 0.44 0.00 - 0.50 ug/mL FEU 07/11/2023 10:13 AM CDT [facility] LABORATORY Blood VENOUS LINE [...] 0.01 ug/mL = 0.76 ug/mL (760 ug/L). Leanne Chapman et al. Age adjusted D-dimer cut-off levels to rule out pulmonary embolism: The ADJUST-PE Study. LIONEL 2014;311:8322-8657.; HJ Tatiana et al. Diagnostic accuracy of conventional or age adjusted D-dimer cutoff values in older patients with suspected venous thromboembolism. Systemic review and meta-analysis. BMJ 2013:346:f2492. Amara Bliss MD LAB - BLOOD RUBEN WARD [facility] [address] Lab (1st floor, no room number) [place] [address] * (ABNORMAL) Comprehensive metabolic panel (07/11/2023 9:27 AM CDT) [facility] Signature Sodium 137 135 - 145 mmol/L 07/11/2023 9:55 AM CDT LABORATORY Comment:Reference intervals for this test were updated on 12/03/2022 to more accurately reflect our healthy population. There may be differences in the flagging of prior results with similar values performed with this method. Interpretation of those prior results can be made in the context of the updated reference intervals. Potassium 4.1 3.4 - 5.3 mmol/L 07/11/2023 9:55 AM CDT LABORATORY Carbon Dioxide (CO2) 26 22 - 29 mmol/L 07/11/2023 9:55 AM CDT [facility] LABORATORY Anion Gap 11 7 - 15 mmol/L 07/11/2023 9:55 AM CDT [facility] LABORATORY Urea Nitrogen 5.9(L) 6.0 - 20.0 mg/dL 07/11/2023 9:55 AM CDT LABORATORY Creatinine 0.70 0.51 - 0.95 mg/dL 07/11/2023 9:55 AM CDT [facility] LABORATORY GFR Estimate >90 >60 mL/min/1. 73m2 07/11/2023 9:55 AM CDT LABORATORY Calcium 9.9 8.6 - 10.0 mg/dL 07/11/2023 9:55 AM CDT LABORATORY Chloride 100 98 - 107 mmol/L 07/11/2023 9:55 AM CDT LABORATORY Glucose 102(H) 70 - 99 mg/dL 07/11/2023 9:55 AM CDT LABORATORY Alkaline Phosphatase 56 40 - 150 [...] Bliss MD LAB - BLOOD RUBEN WARD [facility] Organization Address City/State/ZIP Co de Phone Number [facility] LABORATORY [facility] [address] Lab (1st floor, no room number) [place] [address], [facility] * EKG 12-lead, tracing only (07/11/2023 9:01 AM CDT) Systolic Blood Pressure mmHg RADIOLOGY RESULTS Diastolic Blood Pressure mmHg RADIOLOGY RESULTS Ventricular Rate 60 BPM RAD IOLOGY RESULTS Atrial Rate 60 BPM RADIOLOG Y RESULTS [place] Interval 162 ms RADIOLOG Y RESULTS QRS Duration 90 ms RADIOLO GY RESULTS QT 454 ms RADIOLOGY RESULTS QTc 454 ms RADIOLOGY RESULTS P [place] 70 degrees RADIOLOGY RESULTS R AXIS 9 degrees RADIOLOGY RESULTS T [place] 44 degrees RADIOLOGY RESULTS Interpretation ECG Sinus rhythm Cannot rule out Anterior infarct , age undetermined Abnormal ECG No previous ECGs available Unconfirmed report - interpretation of this ECG is computer generated - see medical record for final interpretation Confirmed by - EMERGENCY ROOM, PHYSICIAN ([id number]), editor magazine AL ROBERTS ([id number]) on 07/11/2023 9:18:08 AM RADIOLOGY RESULTS 07/11/2023 [...] BI-RADS Category 1: Negative Tiffanie Mcgovern NP [facility] MAMMOGRAPHY ORDE ED from Last 3 Months or Most Recently Relevant to Health Maintenance Care Teams Revolving Field Assembler Relationship Specialty Start Date End Date Tiffanie Mcgovern NP [address] [address] PCP - General 07/11/23
--- OUTSIDE RECORDS SUMMARY | 2023-07-15 12:01 | XMS_ITS | Encounter Summary ---
Author Name Unknown Organization [facility] Address [address] [place] [id number] Care Team Providers Care Attendant [employer] Name Role Phone Tiffanie Mcgovern NP Primary Care Provider Reason for Visit * Reason Comments Chest Pain Encounter Details Date Type Department Care Team (Late st Contact Info) Description 07/11/2023 9:12 AM CDT - 07/11/2023 1:[address] [facility] Emergency Dept [address] [place] [address] Amara Bliss MD [facility] [address] [place] [address] Chest pain, unspecified type; Upper abdominal pain; Hypertension, unspecified type; Pulmonary nodules; Nonintractable episodic headache, unspecified headache type Discharge Disposition: Home or Self Care Social History Tobacco Use Types Packs/Day Years [...] Mass Index 29.53 07/11/2023 9:06 AM CDT documented in this encounter Discharge Instructions * Discharge Instructions* Amara Bliss MD - 07/11/2023 11:35 AM CDT Discharge Instructions Abdominal Pain Abdominal pain (belly pain) can be caused by many things. Your evaluation today does not show the exact cause for your pain. Your provider today has decided that it is unlikely your pain is due to a life threatening problem, or a problem requiring surgery or hospital admission. Sometimes those problems cannot be found right away, so it is very important that you follow up as directed. Sometimes only the changes which occur over time allow the cause of your pain to be found. Generally, every Emergency Department visit should have a follow-up clinic visit with either a primary or a specialty clinic/provider. Please follow-up as instructed by your emergency provider today.With abdominal pain, we often recommend very close follow-up, such as the following day. ADULTS: Return to the Emergency Department right away if: You get an oral temperature above 102oF or as directed by your provider. You have blood in your stools. This may be bright red or appear as black, tarry stools. You keep vomiting (throwing up) or cannot drink liquids. You see blood when you vomit. You cannot have a bowel movement or you cannot pass gas. Your stomach gets bloated or bigger. Your skin or the whites of your eyes look yellow. You faint. You have bloody, frequent or painful urination (peeing). You have new symptoms or anything that worries you. CHILDREN: Return to the Emergency Department right away if your child has any of the above-listed symptoms or the following: Pushes your hand away or screams/cries when his/her belly is touched. You notice your child is very fussy or weak. Your child is very tired and is too tired to eat or drink. Your child is dehydrated. Signs of dehydration can be: Significant change in the amount of wet diapers/urine. Your infant or child starts to have dry mouth and lips, or no saliva (spit) or tears. WOMEN: Return to the Emergency Department right away if you have any of the above-listed symptoms or the following: You have bleeding, leaking fluid or passing tissue from the vagina. You have worse pain or cramping, or pain in your shoulder or back. You have vomiting that will not stop. You have a temperature of 100oF or more. Your baby is not moving as much as usual. You faint. You get a bad headache with or without eye problems and abdominal pain. You have a seizure. You have unusual discharge from your vagina and abdominal pain. Abdominal pain is pretty common during . Your pain may or may not be related to your . You should follow-up closely with your OB provider so they can evaluate you and your baby. Until you follow-up with your regular provider, do the following: Avoid sex and do not put anything in your vagina. Drink clear fluids. Only take medications approved by your provider. MORE INFORMATION: Appendicitis: A possible cause of abdominal pain in any person who still has their appendix is acute appendicitis. Appendicitis is often hard to diagnose. Testing does not always rule out early appendicitis or other causes of abdominal pain. Close follow-up with your provider and re-evaluations maybe needed to figure out the reason for your abdominal pain. Follow-up: It is very important that you make an appointment with your clinic and go to the appointment. If you do not follow-up with your primary provider, it may result in missing an important development which could result in permanent injury or disability and/or lasting pain. If there is any problem keeping your appointment, call your provider or return to the Emergency Department. Medications: Take your medications as directed by your provider today. Before using [id number] medications, ask your provider and make sure to take the medications as directed. If you have any questions about medications, ask your provider. Diet: Resume your normal diet as much as possible, but do not eat fried, fatty or spicy foods whileyou have pain. Do not drink alcohol or have caffeine. Do not smoke tobacco. Probiotics: If you have been given an antibiotic, you may want to also take a probiotic pill or eatyogurt with live cultures. Probiotics have good bacteria to help your intestines stay healthy. Studies have shown that probiotics help prevent diarrhea (loose stools) and other intestine problems (including C. diff infection) when you take antibiotics. You can buy these without a prescription in the pharmacy section of the store. If you were given a prescription for medicine here today, be sure to read all of the information (including the package insert) that comes with your prescription. This will include important information about the medicine, its side effects, and any warnings that you need to know about. The pharmacist who fills the prescription can provide more information and answer questions you may have about the medicine. If you have questions or concerns that the pharmacist cannot address, please call or return to the Emergency Department. Remember that you can always come back to the Emergency Department if you are not able to see your regular provider in the amount of time listed above, if you get any new symptoms, or if there is anything that worries you. Discharge Instructions Hypertension - High Blood Pressure During you visit to the Emergency Department, your blood pressure was higher than the recommended blood pressure. This may be related to stress, pain, medication or other temporary conditions. In these cases, your blood pressure may return to normal on its own. If you have a history of high blood pressure, you may need to have your provider adjust your medications. Sometimes, your high measurement here may indicate that you have developed high blood pressure that will stay high unless it is treated. As a general rule, high blood pressure causes problems over years rather than days, weeks, or months. So, while it is important to treat blood pressure, it is rarely important to treat blood pres sure immediately. Occasionally we will begin a medication in the Emergency Department; more often we will recommend close follow-up for medications with a primary doctor/clinic. Generally, every Emergency Department visit should have a follow-up clinic visit with either a primary or a specialty clinic/provider. Please follow-up as instructed by your emergency provider today. Return to the Emergency Department if you start to have: A severe headache. Chest pain. Shortness of breath. Weakness or numbness that affects one part of the body. Confusion. Vision changes. Significant swelling of legs and/or eyes. A reaction to any medication started in the Emergency Department. What can I do to help myself? Avoid alcohol. Take any blood pressure medicine that you are prescribed. Get a good night???s sleep. Lower your salt intake. Exercise. Lose weight. Manage stress. See your doctor regularly If blood pressure medication was started in the Emergency Department: The medicine may not have an immediate effect. The body and brain determine what blood pressure youhave. The medicine???s job is to retrain the body???s ???thermostat?? to a lower blood pressure. You will need to follow up with your provider to see how this medicine is working for you. If you were given a prescription for medicine here today, be sure to read all of the information (including the package insert) that comes with your prescription. This will include important information about the medicine, its side effects, and any warnings that you need to know about. The pharmacist who fills the prescription can provide more information and answer questions you may have about the medicine. If you have questions or concerns that the pharmacist cannot address, please call or return to the Emergency Department. Remember that you can always come back to the Emergency Department if you are not able to see your regular provider in the amount of time listed above, if you get any new symptoms, or if there is anything that worries you. Discharge Instructions Headache You were seen today for a headache. Headaches may be caused by many different things such as muscletension, sinus inflammation, anxiety and stress, having too little sleep, too much alcohol, some medical conditions or injury. You may have a migraine, which is caused by changes in the blood vesselsin your head. At this time your provider does not find that your headache is a sign of anything recinos erous or life-threatening. However, sometimes the signs of serious illness do not show up right away. Generally, every Emergency Department visit should have a follow-up clinic visit with either a primary or a specialty clinic/provider. Please follow-up as instructed by your emergency provider today. Return to the Emergency Department if: You get a new fever of 100.4??F or higher. Your headache gets much worse. You get a stiff neck with your headache. You get a new headache that is significantly different or worse than headaches you have had before. You are vomiting (throwing up) and cannot keep food or water down. You have blurry or double vision or other problems with your eyes. You have a new weakness on one side of your body. You have difficulty with balance which is new. You or your family thinks you are confused. You have a seizure. What can I do to help myself? Pain medications - You may take a pain medication such as Tylenol?? (acetaminophen), Advil??, Motrin?? (ibuprofen) or Aleve?? (naproxen). Take a pain reliever as soon as you notice symptoms. Starting medications as soon as you start to have symptoms may lessen the amount of pain you have. Relaxing in a quiet, dark room may help. Get enough sleep and eat meals regularly. You may need to watch for certain foods or other things which may trigger your headaches. Keeping ajournal of your headaches and possible triggers may help you and your primary provider to identify things which you should avoid which may be causing your headaches. If you were given a prescription for medicine here today, be sure to read all of the information (including the package insert) that comes with your prescription. This will include important information about the medicine, its side effects, and any warnings that you need to know about. The pharmacist who fills the prescription can provide more information and answer questions you may have about the medicine. If you have questions or concerns that the pharmacist cannot address, please call or return to the Emergency Department. Remember that you can always come back to the Emergency Department if you are not able to see your regular provider in the amount of time listed above, if you get any new symptoms, or if there is anything that worries you. * Attachments The following attachments cannot be sent through Care Everywhere. * Pulmonary Nodules: General Info (Guamanian) * Chest Pain (Guamanian) documented in this encounter Medications at Time of Discharge Medication Sig Dispensed Refills Start Date End Date methocarbamol (ROBAXIN) 500 MG tabletIndications:Neck pain,Neck strain,Myofascial pain [METHOCARBAMOL (ROBAXIN) 500 MG TABLET] 1-2 tabs po q HS. May cause drowsiness. Do not drive while taking this medication. 60 tablet 3 06/03/2017 nabumetone (RELAFEN) 500 MG tabletIndications:Neck pain,Thoracic spine pain [NABUMETONE (RELAFEN) 500 MG TABLET] TAKE ONE TO TWO TABLETS (500 TO 1,000MG) BY MOUTH TWICE DAILY NEEDED FOR PAIN 60 tablet 0 08/12/2018 simvastatin (ZOCOR) 20 MG tablet [SIMVASTATIN (ZOCOR) 20 MG TABLET] 05/19/2017 tiZANidine (ZANAFLEX) 2 MG tabletIndications:Myofasc ial pain,Sleep difficulties [TIZANIDINE (ZANAFLEX) 2 MG TABLET] TAKE ONE TO TWO TABLETS (2 TO 4 MG TOTAL) BY MOUTH TWICE DAILY NEEDED FOR MUSCLE SPASMS 30 tablet 0 09/07/2018 traZODone (DESYREL) 50 MG tablet [TRAZODONE (DESYREL) 50 MG TABLET] 03/12/2018 verapamil (VERELAN PM) 180 MG 24 hr capsule [VERAPAMIL (VERELAN PM) 180 MG 24 HR CAPSULE] 05/19/2017 documented as of this encounter ED Notes * Janette Klein RN - 07/11/2023 9:09 AM CDT Patient reports chest pain and pain in the central abdomen. Pt has history of vasospasms that have lead to a heart attack. Patient reports symptoms feel similar to previously. * Amara Bliss MD - 07/11/2023 8:52 AM CDT Emergency Department Note History of Present Illness Chief Complaint Chest Pain HPI Laura Novak is a 52 year old female with a history of coronary vasospasm, myocardial infraction,Grave's disease, hypertension, and hyperlipidemia who presents with chest pain. She initially experienced an intermittent burning sensation in her chest for the past month, but it has become more constant over the past couple of days. Additionally, she developed some slight posterior pressure during this time frame, which felt similar to a headache she had when during her myocardial infarction. Other recent symptoms mentioned include shortness of breath, throat pressure, phlegm in her throat,nausea, and chills. She mentions feeling febrile, but has not measured her temperature. She denies r ecent long distance trips, surgeries, prolonged periods of immobilization, or hormone therapy. She did experience some leg pain about a month ago and had an elevated Ddimer when she was seen for it, but imaging did not show any clots. However, she was still given 1 dose of Lovenox. She further denies visual disturbance, vomiting, hematochezia, or melena. Independent Historian None Review of External Notes No previous ECGs available for review. No recent office visits this year available for review. Past Medical History Medical History and Problem List Subserous leiomyoma of uterus Coronary vasospasm Insomnia Weight disorder Hypothyroidism Anxiety HTN Grave's disease GERD Migraine w/ aura HLD MDD Prinzmetal angina IN Medications Robaxin Relafen Zocor Zanaflex Desyrel Verelan Sudafed Flexeril Surgical History Vaginal hysterectomy Physical Exam Patient Vitals for the past 24 hrs: BP Temp Pulse Resp SpO2 Height Weight 07/11/23 1040 (!) 162/88 -- 60 -- 93 % -- -- 07/11/23 1030 (!) 162/90 -- 57 11 97 % -- -- 07/11/23 1015 (!) 171/92 -- 64 11 97 % -- -- 07/11/23 1000 (!) 161/94 -- 60 16 92 % -- -- 07/11/23 0952 -- -- 63 15 92 % -- -- 07/11/23 0951 -- -- 57 12 91 % -- -- 07/11/23 0950 (!) 157/94 -- 57 -- 93 % -- -- 07/11/23 0945 (!) 137/91 -- 70 -- 94 % -- -- 07/11/23 0943 -- -- 69 11 97 % -- -- 07/11/23 0942 135/82 -- 71 10 95 % -- -- 07/11/23 0940 135/82 -- 73 19 94 % -- -- 07/11/23 0927 (!) 159/94 -- -- -- 99 % -- -- 07/11/23 0912 (!) 169/104 -- -- -- -- -- -- 07/11/23 0908 (!) 178/102 98.3 ??F (36.8 ??C) -- -- -- -- -- 07/11/23 0906 -- -- 67 18 99 % 1.753 m (5' 9) 90.7 kg (200 lb) Physical Exam General: Adult female sitting upright Eyes: PERRL, Conjunctive within normal limits ENT: Moist mucous membranes, oropharynx clear. CV: Normal S1S2, no murmur, rub or gallop. Regular rate and rhythm. Radial pulses intact bilaterally. No appreciable JVD. Resp: Clear to auscultation bilaterally, no wheezes, rales or rhonchi. Normal respiratory effort. GI: Abdomen is soft and nondistended. Mild generalized upper abdominal tenderness to palpation. No palpable masses. No rebound or guarding. MSK: No edema. Nontender. Normal active range of motion. No calf asymmetry appreciated. Skin: Warm and dry. No rashes or lesions or ecchymoses on visible skin. Neuro: Alert and oriented. Responds appropriately to all questions and commands. No focal findings appreciated. Normal muscle tone. Psych: Normal mood and affect. Pleasant. Diagnostics Lab Results Labs Ordered and Resulted from Time of ED Arrival to Time of ED Departure COMPREHENSIVE METABOLIC PANEL - Abnormal Result Value Sodium 137 Potassium 4.1 Carbon Dioxide (CO2) 26 Anion Gap 11 Urea Nitrogen 5.9 (*) Creatinine 0.70 GFR Estimate >90 Calcium 9.9 Chloride 100 Glucose 102 (*) Alkaline Phosphatase 56 AST 28 ALT 21 Protein Total 7.8 Albumin 4.7 Bilirubin Total 0.5 LIPASE - Normal Lipase 44 TROPONIN T, HIGH SENSITIVITY - Normal Troponin T, High Sensitivity <6 D DIMER QUANTITATIVE - Normal D-Dimer Quantitative 0.44 NT PROBNP INPATIENT - Normal N terminal Pro BNP Inpatient 152 CBC WITH PLATELETS AND DIFFERENTIAL WBC Count 5.2 RBC Count 4.58 Hemoglobin 14.3 Hematocrit 41.1 MCV 90 MCH 31.2 MCHC 34.8 RDW 11.9 Platelet Count 286 % Neutrophils 61 % Lymphocytes 28 % Monocytes 6 % Eosinophils 4 % Basophils 1 % Immature Granulocytes 0 NRBCs per 100 WBC 0 Absolute Neutrophils 3.2 Absolute Lymphocytes 1.5 Absolute Monocytes 0.3 Absolute Eosinophils 0.2 Absolute Basophils 0.1 Absolute Immature Granulocytes 0.0 Absolute NRBCs 0.[address] Aortic Survey w Contrast Final Result IMPRESSION: 1. No aortic aneurysm or dissection. [...] 12 months. ODIN FELICIANO MD SYSTEM ID: [id number] Results per radiology EKG ECG taken at 900, ECG read at 04 Normal sinus rhythm Cannot rule Anterior infract, age undetermined Abnormal ECG Rate 60 bpm. KS interval 162 ms. QRS duration 90 ms. QT/QTc 454/454 ms. P-R-T axes 70 9 44. Independent Interpretation None Medications Administered Medications nitroGLYcerin (NITROSTAT) sublingual tablet 0.4 mg (0.4 mg Sublingual $Given 07/11/23 0935) ketorolac (TORADOL) injection 15 mg (15 mg Intravenous $Given 07/11/23 0928) famotidine (PEPCID) tablet 20 mg (20 mg Oral $Given 07/11/23 0940) alum & mag hydroxide-simethicone (MAALOX) suspension 30 mL (30 mLs Oral $Given 07/11/23 0941) iopamidol (ISOVUE-370) solution 72 mL (72 mLs Intravenous $Given 07/11/23 1046) sodium chloride (PF) 0.9% PF flush 60 mL (60 mLs Intravenous $Given 07/11/23 1046) acetaminophen (TYLENOL) tablet 1,000 mg (1,000 mg Oral $Given 07/11/23 1239) Discussion of Management None Social Determinants of Health adding to complexity of care None ED Course ED Course as of 07/11/23 1306 FriJuly 11, 2023 0919 I obtained history and examined the patient as noted above. 1050 I reassessed the patient. No new concerns. She is noting some improvement. 1251 I rechecked the patient and explained findings. She states that she overall feels better, but still has some of her symptoms. I discussed plan for discharge home. Medical Decision Making / Diagnosis MDM Laura Novak is a 52 year old female with a history of headaches, hypertension, previous coronaryartery vasospasm who presents emergency department with concerns for chest pain and abdominal pain as well as a headache. On arrival she was hypertensive and remained so, however not concerning with hypertensive emergency despite the chest pain. She has had multiple days of symptoms have been constant and despite this there is no convincing evidence of ischemia or injury to the heart. I considered alternative etiologies including PE, aortic pathology, pulmonary pathology, or esophageal spasm/esophagitis given her description of the pain. After comprehensive evaluation there is no clear cause for her symptoms. I am not concerned about the head CT representing acute intracranial hemorrhage ormass and do not feel emergent imaging of the brain is needed. She had improvement in her symptoms ov er her stay with interventions. She is still mildly symptomatic but felt comfortable to plan for discharge home. She is recommended close follow-up with her primary care provider within 3 days given unclear nature of her symptoms and return precautions were discussed. Using reasonable clinical judgment, there is not appear to be an acute life-threatening issue at this time however the patient understands that she should return should her symptoms worsen. All questions were answered prior to discharge. Disposition The patient was discharged. ICD-10 Codes: ICD-10-CM 1. Chest pain, unspecified type R07.9 2. Upper abdominal pain R10.10 3. Hypertension, unspecified type I10 4. Pulmonary nodules R91.8 5. Nonintractable episodic headache, unspecified headache type R51.9 Scribe Disclosure: I, uLis Eastman, am serving as a scribe at 10:19 AM on 07/11/2023 to document services personally performed by Amara Bliss MD based on my observations and the provider's statements to me. [employer] Amara Bliss MD 07/12/23 0835 documented in this encounter Plan of Treatment Not on file documented as of this encounter Procedures Procedure Name Priority Date/Time Associated Diagnosis Comments CT AORTIC SURVEY W CONTRAST STAT 07/11/2023 10:55 AM CDT EXTRA TUBE STAT 07/11/2023 9:27 AM CDT EXTRA TUBE STAT 07/11/2023 9:27 AM CDT EXTRA RED TOP TUBE STAT 07/11/2023 9: 27 AM CDT EXTRA BLUE TOP TUBE STAT 07/11/2023 9 :27 AM CDT CBC WITH PLATELETS AND DIFFERENTIAL STAT 07/11/2023 9:27 AM CDT TROPONIN T, HIGH SENSITIVITY STAT 07/11/2023 9:27 AM CDT CBC WITH PLATELETS & DIFFERENTIAL STAT 07/11/2023 9:27 AM CDT NT PROBNP INPATIENT STAT 07/11/2023 9 :27 AM CDT LIPASE STAT 07/11/2023 9:27 AM CDT D DIMER QUANTITATIVE STAT 07/11/2023 9:27 AM CDT COMPREHENSIVE METABOLIC PANEL STAT 07/11/2023 9:27 AM CDT EKG 12-LEAD, TRACING ONLY STAT 07/11/2023 9:01 AM CDT documented in this encounter Results * CT Aortic Survey w Contrast [...] 12 months. ODIN FELICIANO MD SYSTEM ID: [id number] Narrative 07/11/2023 11:[address] AORTIC [...] 12 months. ODIN FELICIANO MD SYSTEM ID: [id number] Amara Bliss MD [facility] [place] ORDERABLE S * Extra Red Top Tube (07/11/2023 9:27 AM CDT) Pathologist [facility] Hold Specimen [facility] 07/11/2023 11:01 AM CDT LABORATORY Blood VENOUS LINE / Unknown Venipuncture / Unknown 07/11/2023 9:27 AM CDT 07/11/2023 9:59 AM CDT Amara Bliss MD LAB - BLOOD RUBEN WARD [facility] Organization Address City/State/ZIP Co de Phone Number [facility] Acute Care Lab [address] Lab (1st floor, no room number) [place] [address] * BNP (07/11/2023 9:27 AM CDT) Pathologist [facility] N terminal Pro BNP Inpatient 152 0 - 900 pg/mL 07/11/2023 10:15 AM CDT [facility] LABORATORY Comment: Reference range shown and results [...] - BLOOD RUBEN WARD [facility] Organization Address City/State/ZIP Co de Phone Number LABORATORY [facility] Acute [facility] Lab [address] Lab (1st floor, no room number) [place] [address] * D dimer quantitative (07/11/2023 9:27 AM CDT) [facility] D-Dimer Quantitative 0.44 0.00 - 0.50 ug/mL FEU 07/11/2023 10:13 AM CDT [facility] LABORATORY Blood VENOUS LINE / Unknown Venipuncture / Unknown 07/11/2023 9:27 AM CDT 07/11/2023 9:34 AM CDT Narrative LABORATORY - 07/11/2023 10:13 AM CDT This [...] out pulmonary embolism: The ADJUST-PE Study. LIONEL 2014;[id number].; HJ Tatiana et al. Diagnostic accuracy of conventional or age adjusted D-dimer cutoff values in older patients with suspected venous thromboembolism. Systemic review and meta-analysis. BMJ 2013:346:f2492. Amara Bliss MD LAB - BLOOD RUBEN WARD [facility] Acute Care Lab [address] [employer] Lab (1st floor, no room number) [address] * Extra Blue Top Tube (07/11/2023 9:27 AM CDT) [facility] Hold Specimen [facility] 07/11/2023 10:46 AM CDT LABORATORY Blood VENOUS LINE / Unknown Venipuncture / Unknown 07/11/2023 9:27 AM CDT 07/11/2023 9:34 AM CDT Amara Bliss MD LAB - BLOOD RUBEN WARD [facility] [address] Lab (1st floor, no room number) [address] * CBC with platelets and differential (07/11/2023 9:27 AM CDT) Pathologist [facility] WBC Count 5.2 4.0 - 11.0 10e3/uL [...] MD LAB - BLOOD RUBEN WARD LABORATORY [facility] Care Lab [address] Lab (1st floor, no room number) [place] [address] * Troponin T, High Sensitivity (07/11/2023 9:27 AM CDT) [facility] Troponin T, High Sensitivity <6 <=14 ng/L [...] MD LAB - BLOOD RUBEN WARD LABORATORY [facility] [address] Lab (1st floor, no room number) [place] [id number] * Lipase (07/11/2023 9:27 AM CDT) Lipase 44 13 - 60 U/L 07/11/2023 9:55 AM CDT [facility] Blood VENOUS LINE / Unknown Venipuncture / Unknown 07/11/2023 9:27 AM CDT 07/11/2023 9:34 AM CDT Amara Bliss MD LAB - BLOOD RUBEN WARD [facility] [address] Lab (1st floor, no room number) [place] [id number] * (ABNORMAL) Comprehensive metabolic panel (07/11/2023 9:27 AM CDT) Sodium 137 135 - 145 mmol/L 07/11/2023 [...] - BLOOD RUBEN WARD [facility] Organization Address City/State/ZIP Co de Phone Number [facility]OR[facility] [address] Lab (1st floor, no room number) [place] [address], [facility] * EKG 12-lead, tracing only (07/11/2023 9:01 AM CDT) Systolic Blood Pressure mmHg RADIOLOGY RESULTS Diastolic Blood Pressure mmHg RADIOLOGY RESULTS Ventricular Rate 60 BPM RAD IOLOGY RESULTS Atrial Rate 60 BPM RADIOLOG Y RESULTS [place] Interval 162 ms RADIOLOG Y RESULTS QRS Duration 90 ms RADIOLO GY RESULTS QT 454 ms RADIOLOGY RESULTS QTc 454 ms RADIOLOGY RESULTS P [place] 70 degrees RADIOLOGY RESULTS R AXIS 9 degrees RADIOLOGY RESULTS T [place] 44 degrees RADIOLOGY RESULTS Interpretation ECG Sinus rhythm Cannot rule out Anterior infarct , age undetermined Abnormal ECG No previous ECGs available Unconfirmed report - interpretation of this ECG is computer generated - see medical record for final interpretation Confirmed by - EMERGENCY ROOM, PHYSICIAN ([id number]), editor producer AL ROBERTS ([id number]) on 07/11/2023 9:18:08 AM RADIOLOGY RESULTS 07/11/2023 9:01 AM CDT 07/11/2023 9:18 AM CDT Amara Bliss MD ECG ORDERABLES RADIOLOGY RESULTS documented in this encounter Visit Diagnoses Diagnosis Chest pain, unspecified type Upper abdominal pain Abdominal pain, other specified site Hypertension, unspecified type Pulmonary nodules Other nonspecific abnormal finding of lung field Nonintractable episodic headache, unspecified headache type documented in this encounter Administered Medications Inactive Administered Medications - up to 3 most recent administrations Medication Order MAR Action Action Date Dose Rate Site acetaminophen (TYLENOL) tablet 1,000 mg 1,000 mg, Oral, ONCE, On Fri07/11/23 at 1235, For 1 dose, Maximum acetaminophen dose from all sources = 75 mg/kg/day not to exceed 4 gram $Given 07/11/2023 12:39 PM CDT 1,000 mg alum & mag hydroxide-simethicone (MAALOX) suspension 30 mL 30 mL, Oral, ONCE, On Fri07/11/23 at 0935, For 1 dose, Shake well. $Given 07/11/2023 9:41 AM CDT 30 mLs famotidine (PEPCID) tablet 20 mg 20 mg, Oral, ONCE, On Fri07/11/23 at 0935, For 1 dose $Given 07/11/2023 9:40 AM CDT 20 mg iopamidol (ISOVUE-370) solution 72 mL 72 mL, Intravenous, ONCE, On Fri07/11/23 at 1045, For 1 dose $Given 07/11/2023 10:46 AM CDT 72 mLs ketorolac (TORADOL) injection 15 mg 15 mg, Intravenous, ONCE, On Fri07/11/23 at 0920, For 1 dose, Can cause pain on injection. If ordered intravenously (IV) : administer through a running maintenance fluid over 1 minute followed by a flush. If patient complains of pain on injection, may dilute 15-30 mg in 5 mL and push over 1 to 2 minutes. $Given 07/11/2023 9:28 AM CDT 15 mg nitroGLYcerin (NITROSTAT) sublingual tablet 0.4 mg 0.4 mg, Sublingual, EVERY 5 MIN PRN, chest pain, Starting on Fri07/11/23 at 0917, For 3 doses $Given 07/11/2023 9:35 AM CDT 0.4 mg sodium chloride (PF) 0.9% PF flush 60 mL 60 mL, Intravenous, ONCE, On Fri07/11/23 at 1045, For 1 dose $Given 07/11/2023 10:46 AM CDT 60 mLs documented in this encounter Active and Recently Administered Medications Times are shown in CDT. Scheduled Medication Order 07/09/2023 07/10/2023 07/11/2023 acetaminophen (TYLENOL) tablet 1,000 mg (COMPLETED) 1,000 mg, Oral, ONCE, On Fri07/11/23 at 1235, For 1 dose, Maximum acetaminophen dose from all sources = 75 mg/kg/day not to exceed 4 gram 1239 ($Given - Provi rajni: Ana Issa RN - Comment: for headache) alum & mag hydroxide-simethicone (MAALOX) suspension 30 mL (COMPLETED) 30 mL, Oral, ONCE, On Fri07/11/23 at 0935, For 1 dose, Shake well. 0941 ($Given - Provi rajni: Aan Issa RN) famotidine (PEPCID) tablet 20 mg (COMPLETED) 20 mg, Oral, ONCE, On Fri07/11/23 at 0935, For 1 dose 0940 ($Given - Provi rajni: Kumrija A Son, RN) iopamidol (ISOVUE-370) solution 72 mL (COMPLETED) 72 mL, Intravenous, ONCE, On Fri07/11/23 at 1045, For 1 dose 1046 ($Given - Provi rajni: Tobias Abraham, RT) ketorolac (TORADOL) injection 15 mg (COMPLETED) 15 mg, Intravenous, ONCE, On Fri07/11/23 at 0920, For 1 dose, Can cause pain on injection. If ordered intravenously (IV) : administer through a running maintenance fluid over 1 minute followed by a flush. If patient complains of pain on injection, may dilute 15-30 mg in 5 mL and push over 1 to 2 minutes. 0928 ($Given - Provi rajni: Ana Issa RN - Comment: given pre nitro per provider as pt states gets bad headaches with nitro) sodium chloride (PF) 0.9% PF flush 60 mL (COMPLETED) 60 mL, Intravenous, ONCE, On Fri07/11/23 at 1045, For 1 dose 1046 ($Given - Provi rajni: Tobias Abraham, RT) PRN Medication Order 07/09/2023 07/10/2023 07/11/2023 nitroGLYcerin (NITROSTAT) sublingual tablet 0.4 mg 0.4 mg, Sublingual, EVERY 5 MIN PRN, chest pain, Starting on Fri07/11/23 at 0917, For 3 doses 0935 ($Given - Provi rajni: Ana Issa RN - Comment: 159/94) documented in this encounter Care Teams Attendant [employer] Store Relationship Specialty Start Date End Date Tiffanie Mcgovern NP [address] [address] PCP - General 07/11/23 documented as of this encounter
--- OUTSIDE RECORDS SUMMARY | 2023-07-15 12:01 | XMS_ITS | Encounter Summary ---
Author Name Unknown Organization [facility] er Address [address] [place] [address] Care Team Providers Care Certified Retinal Angiographer Name Role Phone Tiffanie Mcgovern APRN, DIGITAL PHOTOGRAPHER Primary Care Provi rajni Reason for Visit * Reason Comments Med Refill Encounter Details Date Type Department Care Team (Late st Contact Info) Description 11/22/2021 Refill [place] [address] [address] Roopa Lopez MD [address] [address] [place] [address] Postablative hypothyroidism Social History Tobacco Use Types Packs/Day Years Used Date Smoking Tobacco: Former Cigarettes Q uit: 10/2018 Smokeless Tobacco: Never Alcohol Use Standard Drinks/Week Comments Yes 0 (1 standard drink = 0.6 oz pur e alcohol) AUDIT-C Answer Date Recorded Frequency of Alcohol Consumption Never 07/09/2018 Average Number of Drinks Not on file Frequency of Binge Drinking Not on file 04/2018 PHQ-2 Answer Date Recorded PHQ-9 Total Score 6 02/27/2021 Sex and Gender Information Value Date Recorded Sex Assigned at Female 10/20/2019 7:44 AM CDT Gender Identity Female 10/20/2019 7:44 AM CDT Sexual Orientation Straight 10/20/2019 7: 44 AM CDT documented as of this encounter Miscellaneous Notes * Telephone Encounter - Alyce Shah - 11/26/2021 9:48 AM CDT Pt called back and confirmed yes, Dennis Mcgovern is her primary and she does not need us filling any prescriptions. Pt was told to double check with her pharmacy to make sure they are sending her refill requests to Dennis Mcgovern in [place]. Pt agreed. * Telephone Encounter - Alyce Shah - 11/26/2021 9:01 AM CDT Noted. * Telephone Encounter - Doris Garcia RN - 11/26/2021 8:34 AM CDT Left message on secured line for patient to contact PCP in [place] for refills and to advise pharmacy of change. Encouraged call to this clinic if needed. * Telephone Encounter - Doris Garcia RN - 11/26/2021 8:34 AM CDT Advised patient to contact pharmacy and new provider for refills. Encouraged a call to clinic with any questions. * Telephone Encounter - Maris Gunderson MA - [...] hypothyroidism documented in this encounter Care Teams Certified Retinal Angiographer Relationship Specialty Start Date End Date Tiffanie Mcgovern, HEAD TURBINE OPERATOR, DIGITAL PHOTOGRAPHER [address] [place] [address] PCP - General Family Medicine 02/27/21 documented as of this encounter
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
--- OUTSIDE RECORDS SUMMARY | 2023-07-15 12:01 | XMS_ITS | Encounter Summary ---
Author Name Unknown Organization [facility] er Address [address] [place] [address] Care Team Providers Care Pen Rider Name Role Phone Mynor Mcgovern APRN, LEAD QUALITY TECHNICIAN Primary Care Provi rajni Reason for Visit * Reason Comments Med Refill Encounter Details Date Type Department Care Team (Late st Contact Info) Description 08/20/2021 Refill [place] [address] [address] Roopa Lopez MD [address] [address] [place] [address] GUSTAVO (generalized anxiety disorder) Social History Tobacco Use Types Packs/Day Years [...] encounter Miscellaneous Notes * Telephone Encounter - Lili Carranza LPN - 08/23/2021 4:45 PM CDT PATIENT SEE'S MYNOR MCGOVERN * Telephone Encounter - Ana Le MA - [...] disorder documented in this encounter Care Teams Pen Rider Relationship Specialty Start Date End Date Mynor Mcgovern APRN, LEAD QUALITY TECHNICIAN [address] [place] [address] PCP - General Family Medicine 02/27/21 documented as of this encounter
--- OUTSIDE RECORDS SUMMARY | 2023-07-15 12:01 | XMS_ITS | Encounter Summary ---
Author Name Unknown Organization [facility] er Address [address] [place] [address] Care Team Providers Care Weather Anchor Name Role Phone Tiffanie Mcgovern INVENTORY CHECKER, SOUND TECHNICIAN Primary Care Provi rajni Reason for Visit * Reason Comments Med Refill Encounter Details Date Type Department Care Team (Late st Contact Info) Description 09/02/2018 Refill [place] [address] [place] [address] Tiffanie Mcgovern, INVENTORY CHECKER, SOUND TECHNICIAN [address] [place] [address] Hyperlipidemia, unspecified hyperlipidemia type (Primary Dx) Social History Tobacco Use Types Packs/Day Years Used Date Smoking Tobacco: Some Days Smokeless Tobacco: Never Alcohol Use Standard Drinks/Week Comments Yes 0 (1 standard drink = 0.6 oz pur e alcohol) AUDIT-C Answer Date Recorded Frequency of Alcohol Consumption Never 07/09/2018 Average Number of Drinks Not on file 019 Frequency of Binge Drinking Not on file 04/2018 PHQ-2 Answer Date Recorded PHQ-2 Score 0 07/09/2018 Sex and Gender Information Value Date Recorded Sex Assigned at Female 10/20/2019 7:44 AM CDT Gender Identity Female 10/20/2019 7:44 AM CDT Sexual Orientation Straight 10/20/2019 7: 44 AM CDT documented as of this encounter Miscellaneous Notes * Telephone Encounter - Krystal Rice MA - 09/04/2018 1:57 PM CDT Left detailed message * Telephone Encounter - Tiffanie Mcgovern APRN, CNP - 09/04/2018 1:48 PM CDT Please let the patient know that the Zocor has been renewed x90 days and she is due for medication renewal and labs. Thanks Dennis * Telephone Encounter - Ana Le MA [...] this encounter Visit Diagnoses Diagnosis Hyperlipidemia, unspecified hyperlipidemia type- Primary documented in this encounter Additional Health Concerns Infection Onset Date Last Indicated Resolved Time COVID-19 Rule Out 06/14/2019 06/14/2019 06/14/2019 10:56 PM CDT COVID-19 Rule Out 02/18/2020 02/18/2020 02/18/2020 4:41 PM CONCENTRATOR OPERATOR COVID-19 Rule Out 02/27/2021 02/27/2021 02/27/2021 10:40 AM CONCENTRATOR OPERATOR COVID-19 Confirmed 02/27/2021 02/27/2021 2 8:17 PM CDT documented as of this encounter Care Teams Weather Anchor Relationship Specialty Start Date End Date Tiffanie Mcgovern APRN, KYLE [address] [facility] [place] [address] PCP - General Family Medicine 02/27/21 documented as of this encounter
--- OUTSIDE RECORDS SUMMARY | 2023-07-15 12:01 | XMS_ITS | Encounter Summary ---
Author Name Unknown Organization [facility] Address [address] [place] [address] Care Team Providers Care Textile Supervisor Name Role Phone Frw, None Primary Care Provider Tiffanie Crow NP Primary Care Provider [phone] Encounter Details Date Type Department Care Team (Late st Contact Info) Description 06/07/2004 [facility] [place] [address] [place] [phone] Butch Mitchell MD Social History Tobacco Use Types Packs/Day Years Used Date Smoking Tobacco: Former Smokeless Tobacco: Never Comments:10+ years ago quit. Sex and Gender Information Value Date Recorded Sex Assigned at Not on file Gender Identity Not on file Sexual Orientation Not on file documented as of this encounter Plan of Treatment Not on file documented as of this encounter Visit Diagnoses Not on filedocumented in this encounter Care Teams Textile Supervisor Relationship Specialty Start Date End Date Frw, None PCP - General 04/02/00 11/07/16 Tiffanie Mcgovern NP [address] [address] PCP - General 07/11/23 documented as of this encounter
--- OUTSIDE RECORDS SUMMARY | 2023-07-15 12:01 | XMS_ITS | Encounter Summary ---
Author Name Unknown Organization [facility] er Address [address] [place] [address] Care Team Providers Care Residential Treatment Counselor Name Role Phone Tiffanie Mcgovern APRN, DEEP FAT COOK FRY Primary Care Provi rajni Encounter Details Date Type Department Care Team (Late st Contact Info) Description 12/06/2019 Telephone Robert Guerrero [address] [place] [address] Roopa Lopez MD 1705 [facility] 20 [place] [address] Social History Tobacco Use Types Packs/Day Years [...] PHQ-2 Answer Date Recorded PHQ-2 Score 0 11/04/2019 Sex and Gender Information Value Date Recorded [...] Time COVID-19 Rule Out 02/18/2020 02/18/2020 02/18/2020 4:41 PM INDUSTRIAL ARTS TEACHER COVID-19 Rule Out 02/27/2021 02/27/2021 02/27/2021 10:40 AM INDUSTRIAL ARTS TEACHER COVID-19 Confirmed 02/27/2021 02/27/2021 8:17 PM CDT documented as of this encounter Care Teams Residential Treatment Counselor Relationship Specialty Start Date End Date Tiffanie Mcgovern, TOPPER PRESS OPERATOR AUTOMATIC, DEEP FAT COOK FRY [address] [facility] [address] PCP - General Family Medicine 02/27/21 documented as of this encounter
--- OUTSIDE RECORDS SUMMARY | 2023-07-15 12:01 | XMS_ITS | Encounter Summary ---
Author Name Unknown Organization [facility] er Address [address] [place] [address] Care Team Providers Care Call Or Contact Centre Team Leader Name Role Phone Tiffanie Mcgovern APRN, SECURITY OFFICER SUPERVISOR Primary Care Provi rajni Reason for Visit * Reason Comments Med Refill Encounter Details Date Type Department Care Team (Late st Contact Info) Description 12/28/2019 Refill [facility] [address] [place] [address] Valerie Major MD [address] [place] [phone] Edema, unspecified type Social History Tobacco Use Types Packs/Day Years [...] encounter Miscellaneous Notes * Telephone Encounter - Tatianna Banda LPN - [...] Rule Out 02/18/2020 02/18/2020 02/18/2020 4:41 PM INSTALLATION SPECIALIST COVID-19 Rule Out 02/27/2021 02/27/2021 02/27/2021 10:40 AM INSTALLATION SPECIALIST COVID-19 Confirmed 02/27/2021 02/27/2021 2 8:17 PM CDT documented as of this encounter Care Teams Call Or Contact Centre Team Leader Relationship Specialty Start Date End Date Tiffanie Mcgovern, SAXOPHONE PLAYER, SECURITY OFFICER SUPERVISOR [address] [place] [address] PCP - General Family Medicine 02/27/21 documented as of this encounter
== END 2023-07-15 11:59 | disposition home or self-care (01) ==
PROVIDERS: PCP Nurse Practitioner Family; Visit Provider Nurse Practitioner Family
DX: E03.9 Hypothyroidism, unspecified (principal); Z13.220 Encounter for screening for lipoid disorders; Z13.21 Encounter for screening for nutritional disorder; R47.89 Other speech disturbances
CPT/HCPCS: 80061; 82607; 84436; 84439; 84443; 84480

== ENCOUNTER 2023-07-16 07:53 | Outpatient (CLI) | payer OTHER, SELFPAY ==
--- OUTSIDE RECORDS SUMMARY | 2023-07-18 11:20 | XMS_ITS | Referral Summary ---
Author Name Unknown Organization [facility] Address [address] [place] [address] Care Team Providers Care Public Health Engineer Name Role Phone Tiffanie Mcgovern NP Primary Care Provider Encounters Date Type Department Care Team Description 07/11/2023 Travel 07/11/2023 9:12 AM CDT - 07/11/2023 1:16 PM CDT Emergency [facility] Emergency Dept [address] [place] [address] Amara Bliss MD Chest pain, unspecified type; [...] 12 months. ODIN FELICIANO MD SYSTEM ID: ??[id number] Narrative 07/11/2023 11:[address] AORTIC [...] 12 months. ODIN FELICIANO MD SYSTEM ID: [id number] Amara Bliss MD [facility] ORDERABLE S * Extra Red Top Tube (07/11/2023 9:27 AM CDT) Pathologist [facility] Hold Specimen [facility] 07/11/2023 11:01 AM CDT LABORATORY Blood VENOUS LINE / Unknown Venipuncture / Unknown 07/11/2023 9:27 AM CDT 07/11/2023 9:59 AM CDT Amara Bliss MD LAB - BLOOD RUBEN WARD [facility] Organization Address City/State/ZIP Co de Phone Number [facility] [address] Lab (1st floor, no room number) [place] [address] * Extra Blue Top Tube (07/11/2023 9:27 AM CDT) Hold Specimen [facility] 07/11/2023 10:46 AM CDT RH LABORATORY Blood VENOUS LINE / Unknown Venipuncture / Unknown 07/11/2023 9:27 AM CDT 07/11/2023 9:34 AM CDT Amara Bliss MD LAB - BLOOD RUBEN WARD [facility] LABORATORY [facility] [address] Lab (1st floor, no room number) [place] [phone] * CBC with platelets and differential (07/11/2023 [...] Amara Bliss MD LAB - BLOOD ORDE [facility] Organization Address City/State/ZIP Co de Phone Number RH LABORATORY [facility] [address] Lab (1st floor, no room number) [place] [address] * Troponin T, High Sensitivity (07/11/2023 9:27 AM CDT) [facility] Signature Troponin T, High Sensitivity <6 <=14 [...] MD LAB - BLOOD RUBEN WARD LABORATORY [facility] [address] Lab (1st floor, no room number) [place] [address] * BNP (07/11/2023 9:27 AM CDT) [facility] N terminal Pro BNP Inpatient 152 0 [...] MD LAB - BLOOD RUBEN WARD LABORATORY [facility] [address] Lab (1st floor, no room number) [place] [address] * Lipase (07/11/2023 9:27 AM CDT) Lipase 44 13 - 60 U/L 07/11/2023 9:55 AM CDT LABORATORY Blood VENOUS LINE / Unknown Venipuncture / Unknown 07/11/2023 9:27 AM CDT 07/11/2023 9:34 AM CDT Amara Bliss MD LAB - BLOOD IRVONAJared WARD Performing Organization Address [facility]/ZIP Co de Phone Number LABORATORY [facility] [address] Lab (1st floor, no room number) [place] [address] * D dimer quantitative (07/11/2023 9:27 [...] out pulmonary embolism: The ADJUST-PE Study. LIONEL 2014;311:8899-2518.; HJ Tatiana et al. Diagnostic accuracy of conventional or age adjusted D-dimer cutoff values in older patients with suspected venous thromboembolism. Systemic review and meta-analysis. BMJ 2013:346:f2492. Amara Bliss MD LAB - BLOOD RUBEN WARD RH LABORATORY [facility] [address] [facility] Lab (1st floor, no room number) [place] [address] * (ABNORMAL) Comprehensive metabolic panel (07/11/2023 9:27 AM CDT) [facility] Sodium 137 135 - 145 mmol/L 07/11/2023 [...] Bliss MD LAB - BLOOD RUBEN WARD [facility] Organization Address City/State/ZIP Co de Phone Number RH LABORATORY [facility] [address] [facility] Lab (1st floor, no room number) [place] [address], [facility] * EKG 12-lead, tracing only (07/11/2023 9:01 AM CDT) Systolic Blood Pressure mmHg RADIOLOGY RESULTS Diastolic Blood Pressure mmHg RADIOLOGY RESULTS Ventricular Rate 60 BPM RAD IOLOGY RESULTS Atrial Rate 60 BPM RADIOLOG Y RESULTS HI Interval 162 ms RADIOLOG Y RESULTS QRS Duration 90 ms RADIOLO GY RESULTS QT 454 ms RADIOLOGY RESULTS QTc 454 ms RADIOLOGY RESULTS P Duarte 70 degrees RADIOLOGY RESULTS R AXIS 9 degrees RADIOLOGY RESULTS T Duarte 44 degrees RADIOLOGY RESULTS Interpretation ECG Sinus rhythm Cannot rule out Anterior infarct , age undetermined Abnormal ECG No previous ECGs available Unconfirmed report - interpretation of this ECG is computer generated - see medical record for final interpretation Confirmed by - EMERGENCY ROOM, PHYSICIAN ([id number]), editor sound AL ROBERTS ([id number]) on 07/11/2023 9:18:08 AM RADIOLOGY RESULTS 07/11/2023 [...] Recently Relevant to Health Maintenance Care Teams Public Health Engineer Relationship Specialty Start Date End Date Tiffanie Mcgovern NP [address] [address] PCP - General 07/11/23
--- OUTSIDE RECORDS SUMMARY | 2023-07-18 11:20 | XMS_ITS | Encounter Summary ---
Author Name Unknown Organization [facility] er Address [address] [place] [address] Care Team Providers Care Color Checker Roving Or Yarn Name Role Phone Mynor Mcgovern APRN, SKI BINDING FITTER AND REPAIRER Primary Care Provi rajni Reason for Visit * Reason Comments Med Refill Encounter Details Date Type Department Care Team (Late st Contact Info) Description 08/20/2021 Refill [place] [address] [address] Roopa Lopez MD 170[facility] 20 [place] [address] GUSTAVO (generalized anxiety disorder) Social History Tobacco [...] disorder documented in this encounter Care Teams Color Checker Roving Or Yarn Relationship Specialty Start Date End Date Mynor Mcgovern APRN, SKI BINDING FITTER AND REPAIRER [address] [place] [address] PCP - General Family Medicine 02/27/21 documented as of this encounter
--- OUTSIDE RECORDS SUMMARY | 2023-07-18 11:20 | XMS_ITS | Encounter Summary ---
Author Name Unknown Organization [facility] er Address [address] [place] [address] Care Team Providers Care Stock Clerk Name Role Phone Tiffanie Mcgovern APRN, WASH OIL COOLER OPERATOR Primary Care Provi rajni Reason for Visit * Reason Comments Med Refill Encounter Details Date Type Department Care Team (Late st Contact Info) Description 12/28/2019 Refill [facility] [address] [place] [address] Valerie Major MD [address] [place] [phone] Edema, unspecified type Social History Tobacco Use [...] Rule Out 02/18/2020 02/18/2020 02/18/2020 4:41 PM PHYSICIAN OFFICE NURSE COVID-19 Rule Out 02/27/2021 02/27/2021 02/27/2021 10:40 AM PHYSICIAN OFFICE NURSE COVID-19 Confirmed 02/27/2021 02/27/2021 2 8:17 PM CDT documented as of this encounter Care Teams Stock Clerk Relationship Specialty Start Date End Date Tiffanie Mcgovern, FOOD EDITOR, WASH OIL COOLER OPERATOR [address] [place] [address] PCP - General Family Medicine 02/27/21 documented as of this encounter
--- OUTSIDE RECORDS SUMMARY | 2023-07-18 11:20 | XMS_ITS | Encounter Summary ---
Author Name Unknown Organization [facility] Address [address] [place] [address] Care Team Providers Care Gum Machine Filler Name Role Phone Tiffanie Mcgovern NP Primary Care Provider [phone] Encounter Details Date Type Department Care Team [...] on filedocumented in this encounter Care Teams Gum Machine Filler Relationship Specialty Start Date End Date Tiffanie Mcgovern NP [address] [address] PCP - General 07/11/23 documented as of this encounter
--- OUTSIDE RECORDS SUMMARY | 2023-07-18 11:20 | XMS_ITS | Encounter Summary ---
Author Name Unknown Organization [facility] er Address [address] [place] [address] Care Team Providers Care Packaging Manager Name Role Phone Tiffanie Mcgovern APRN, TDP DISPLAYS ANALYST Primary Care Provi rajni Reason for Visit * Reason Comments Med Refill Encounter Details Date Type Department Care Team (Late st Contact Info) Description 11/22/2021 Refill [place] [address] [address] Roopa Lopez MD 170[facility] 20 [place] [address] Postablative hypothyroidism Social History Tobacco Use Types [...] her refill requests to Dennis Mcgovern in [place]. Pt agreed. * Telephone Encounter - Alyce Shah - 11/26/2021 9:01 AM CDT Noted. * Telephone Encounter - Dorsi Garcia RN - 11/26/2021 8:34 AM CDT Left message on secured line for patient to contact PCP in [place] for refills and to advise pharmacy of [...] hypothyroidism documented in this encounter Care Teams Packaging Manager Relationship Specialty Start Date End Date Tiffanie Mcgovern, PROCESS CONTROLS TECHNICIAN, TDP DISPLAYS ANALYST [address] [place] [address] PCP - General Family Medicine 02/27/21 documented as of this encounter
--- OUTSIDE RECORDS SUMMARY | 2023-07-18 11:20 | XMS_ITS | Clinical Summary ---
Author Name Unknown Organization [facility] er Address [address] [place] [address] Care Team Providers Care Health Information Technician Name Role Phone Tiffanie Mcgovern APRN, TRASH TRUCK DRIVER Primary Care Provi rajni Allergies Active Allergy [...] by mouth 1 (one) time each day 07/25/2022 Active PARoxetine (PAXIL) 20 MG tablet Take 1 tablet (20 mg total) by mouth 1 (one) time each day in the morning 09/02/2022 Active fluticasone (FLONASE) 50 MCG/ACT nasal sprayIndications:Aller gic Rhinitis Administer 2 sprays into each nostril 1 (one) time each day 16 g 2 12/30/2022 4 Active cetirizine (ZyrTEC ALLERGY) 10 MG tabletIndications:Nasa l congestion Take 1 tablet (10 mg total) by mouth 1 (one) time each day 30 tablet 2 12/30/2022 Active Sodium Chloride-Sodium Bicarb ([place] Saline Nasal Neti Rinse) 1.57 g packIndications:Nasal congestion Administer 1 each into affected nostril(s) 2 (two) times a day 50 each 12/30/2022 Active cyclobenzaprine (FLEXERIL) 10 MG tabletIndications:Arth ralgia of right temporomandibular joint Take 1 tablet (10 mg total) by mouth at night if needed for muscle spasms 30 tablet 12/30/2022 Active pseudoephedrine (Sudafed) 30 MG tabletIndications:Nasa l congestion Take 1 tablet (30 mg total) by mouth every 4 (four) hours if needed for congestion 30 tablet 12/30/2022 Active Active Problems Problem Noted Date [...] therapy and states her daughter is a rehab trainer. Also trying to lose weight and [...] week 12/30/2022 How often do you attend [facility] or rastafarian services? 1 to 4 times per year 12/30/2022 Do you belong to any clubs o r organizations such as spiritism groups, unions, fraternal [...] Date Recorded PHQ-9 Total Score 4 12/30/2022 [facility] - Occupational Stress [...] place to sleep or slept in a longterm (including now)? No 12/30/2022 Sex and Gender [...] Procedure Name Priority Date/Time Associated Diagnosis Comments COLOGUARD Routine 05/11/2020 6:30 AM INTERCELL CONNECTOR PLACER Well adult exam from Last 3 Months or Most Recently Relevant to Health Maintenance Results * Cologuard (05/11/2020 6:30 AM INTERCELL CONNECTOR PLACER) Cologuard result Negative Not Applicable Note Comment: A negative result indicates a low likelihood that a colorectal cancer (CRC) or an advanced adenoma (adenomatous polyps with more advanced pre-malignant features) is present. The chance that a person with a negative Cologuard test has a colorectal cancer is less than 1 in 1500 (negative predictive value >99.9%) or has an advanced adenoma is less than 5.3% (negative predictive value 94.7%). These data are based on a prospective cross-sectional screening study of 10,000 individuals at average risk for colorectal cancer who were screened with both Cologuard and colonoscopy. (Sabino Gaona et al, N Engl J Med 2014;370(14):0046-0302) The normal value (reference range) for this assay is negative. COLOGUARD RE-SCREENING RECOMMENDATION: Periodic routine colorectal cancer screening is an important part of preventive healthcare for asymptomatic persons at average risk for colorectal cancer. Following a negative Cologuard result, the [place] Cancer Society and U.S. Multi-Society Task Force screening guidelines recommend a Cologuard re-screening interval of 3 years. References: [place] [employer] Society (ACS). Colorectal cancer prevention and early detection. [place], [place]: [place] [employer] Society; [updated 2015Jul 01]. https://www.cancer.org/cancer/hlvvl-ufxtvs-lpvjpm/eimuhjaim-ctxvdmhjr-xthyeam/ac s-rec ommendations.html. Accessed November 07, 2017; Jake DK, Clarissa CR, Sung GutierrezK, Colorectal Cancer Screening: Recommendations for Physicians and Patients from the U.S. Multi-Society Task Force on Colorectal Cancer Screening, Am J Gastroenterology 2017; 112:2069-0240. TEST TYPE: Composite algorithmic analysis of stool DNA-biomarkers with hemoglobin immunoassay. ??Quantitative values of individual biomarkers are not reportable and are not associated with individual biomarker result reference ranges. PRECAUTIONS AND LIMITATIONS: Cologuard is intended for colorectal cancer screening of adults of either sex, 45 years or older, who are at average-risk for colorectal cancer (CRC). Cologuard has been approved for use by the U.S. FDA. Cologuard may produce a false negative or false positive result. A negative Cologuard test result does not guarantee the absence of CRC or advanced adenoma (pre-cancer). Patients with a negative Cologuard test result should be advised to continue participating in a colorectal cancer screening program. The screening interval for Cologuard is currently recommended at an interval of every 3 years by the [place] [employer] Society and U.S. Multi-Society Task Force. A false positive result occurs when Cologuard produces a positive result, even though a colonoscopy may not find colorectal cancer or precancerous polyps. The performance of Cologuard has been established in a cross sectional study (i.e., single point in time) of average-risk adults aged 50-84. Cologuard performance in patients ages 45 to 49 years was estimated by sub-group analysis of near-age groups. Cologuard performance data in a 10,000 patient pivotal study using colonoscopy as the reference method can be accessed at the following location: www.[employer]/results. Additional description of the Cologuard test process, warnings and precautions can be found at www.cologuardtest.com. Rx only. [employer], [address] [place], [address], , Clinical Laboratory Pedicurist, BRIANNA HANDY, , MELIDAIA NO: [id number] Stool 05/11/2020 6:30 AM INTERCELL CONNECTOR PLACER 05/12/2020 12:30 PM INTERCELL CONNECTOR PLACER Catalina Pennington APRN, TRASH TRUCK DRIVER LAB BODY FLUIDS AN D STOOLS ORDERABLES [employer] [address] [place] [address], from Last 3 Months or Most Recently Relevant to Health Maintenance Care Teams Health Information Technician Relationship Specialty Start Date End Date Tiffanie Mcgovern, ORDER BUILDER, TRASH TRUCK DRIVER [address] [facility] [place] [address] PCP - General Family Medicine 02/27/21
--- OUTSIDE RECORDS SUMMARY | 2023-07-18 11:20 | XMS_ITS | Encounter Summary ---
Author Name Unknown Organization [facility] er Address [address] [place] [address] Care Team Providers Care Videotape Sales Representative Name Role Phone Tiffanie Mcgovern APRN, MANAGER ER Primary Care Provi rajni Encounter Details Date Type Department Care Team (Late st Contact Info) Description 12/06/2019 Telephone Robert Guerrero [address] [place] [address] Roopa Lopez MD 1705 [facility] 20 [place] [address] Social History Tobacco Use Types Packs/Day Years [...] Rule Out 02/18/2020 02/18/2020 02/18/2020 4:41 PM ALLERGY SPECIALIST COVID-19 Rule Out 02/27/2021 02/27/2021 02/27/2021 10:40 AM ALLERGY SPECIALIST COVID-19 Confirmed 02/27/2021 02/27/2021 8:17 PM CDT documented as of this encounter Care Teams Videotape Sales Representative Relationship Specialty Start Date End Date Tiffanie Mcgovern, PRICE ECONOMIST, MANAGER ER [address] [place] [place] [address] PCP - General Family Medicine 02/27/21 documented as of this encounter
--- OUTSIDE RECORDS SUMMARY | 2023-07-18 11:20 | XMS_ITS | Clinical Summary ---
Author Name Unknown Organization [place] Address [address] [place] [address] Care Team Providers Care Apartment House Manager Name Role Phone Tiffanie Mcgovern NP Primary [...] CDT - 07/11/2023 1:16 PM CDT Emergency [facility] Emergency Dept [address] [place] [address] Amara Bliss MD Chest pain, unspecified type; [...] 12 months. ODIN FELICIANO MD SYSTEM ID: ??[id number] Narrative 07/11/2023 11:[address] AORTIC [...] 12 months. ODIN FELICIANO MD SYSTEM ID: [id number] Amara Bliss MD IMG CT ORDERABLE S * Extra Red Top Tube (07/11/2023 9:27 AM CDT) Hold Specimen [facility] 07/11/2023 11:01 AM CDT LABORATORY Blood VENOUS LINE / Unknown Venipuncture / Unknown 07/11/2023 9:27 AM CDT 07/11/2023 9:59 AM CDT Amara Bliss MD LAB - BLOOD RUBEN WARD [facility] Organization Address City/State/ZIP Co de Phone Number [facility] Acute Care Lab [address] [facility] Lab (1st floor, no room number) [place] [address], [facility] * Extra Blue Top Tube (07/11/2023 9:27 AM CDT) Hold Specimen [facility] 07/11/2023 10:46 AM CDT RH LABORATORY Blood VENOUS LINE / Unknown Venipuncture / Unknown 07/11/2023 9:27 AM CDT 07/11/2023 9:34 AM CDT Amara Bliss MD LAB - BLOOD RUBEN WARD [facility] Organization Address City/State/ZIP Co de Phone Number RH LABORATORY [facility] Acute Care Lab [address] Lab (1st floor, no room number) [place] [address] * CBC with platelets and differential [...] CDT Amara Bliss MD LAB - BLOOD [facility] Organization Address City/State/ZIP Co de Phone Number LABORATORY [facility] Acute Care Lab [address] Lab (1st floor, no room number) [place] [address] * Troponin T, High Sensitivity (07/11/2023 9:27 AM CDT) [facility] Troponin T, High Sensitivity <6 <=14 ng/L [...] Bliss MD LAB - BLOOD RUBEN WARD [facility] Acute Care Lab [address] Lab (1st floor, no room number) [place] [address] * BNP (07/11/2023 9:27 AM CDT) [facility] N terminal Pro BNP Inpatient 152 [id number] [...] Bliss MD LAB - BLOOD RUBEN WARD [facility] Acute Care Lab [address] Lab (1st floor, no room number) [place] [address], [facility] * Lipase (07/11/2023 9:27 AM CDT) Lipase 44 13 - 60 U/L 07/11/2023 9:55 AM CDT RH LABORATORY Blood VENOUS LINE / Unknown Venipuncture / Unknown 07/11/2023 9:27 AM CDT 07/11/2023 9:34 AM CDT Amara Bliss MD LAB - BLOOD RUBEN WARD [facility] LABORATORY [facility] Acute Care Lab [address] Lab (1st floor, no room number) [place] [address], [facility] * D dimer quantitative (07/11/2023 9:27 AM [...] out pulmonary embolism: The ADJUST-PE Study. LIONEL 2014;311:4842-2400.; HJ Tatiana et al. Diagnostic accuracy of conventional or age adjusted D-dimer cutoff values in older patients with suspected venous thromboembolism. Systemic review and meta-analysis. BMJ 2013:346:f2492. Amara Bliss MD LAB - BLOOD RUBEN WARD RH LABORATORY [facility] Acute Care Lab [address] Lab (1st floor, no room number) [place] [address] * (ABNORMAL) Comprehensive metabolic panel (07/11/2023 9:27 AM CDT) [facility] Signature Sodium 137 135 - 145 [...] Bliss MD LAB - BLOOD RUBEN WARD [facility] Organization Address City/State/ZIP Co de Phone Number RH LABORATORY [facility] Acute Care Lab [address] Lab (1st floor, no room number) [place] [address], [facility] * EKG 12-lead, tracing only (07/11/2023 9:01 AM CDT) Systolic Blood Pressure mmHg RADIOLOGY RESULTS Diastolic Blood Pressure mmHg RADIOLOGY RESULTS Ventricular Rate 60 BPM RAD IOLOGY RESULTS Atrial Rate 60 BPM RADIOLOG Y RESULTS ME Interval 162 ms RADIOLOG Y RESULTS QRS Duration 90 ms RADIOLO GY RESULTS QT 454 ms RADIOLOGY RESULTS QTc 454 ms RADIOLOGY RESULTS [place] 70 degrees RADIOLOGY RESULTS R AXIS 9 degrees RADIOLOGY RESULTS T [place] 44 degrees RADIOLOGY RESULTS Interpretation ECG Sinus rhythm Cannot rule out Anterior infarct , age undetermined Abnormal ECG No previous ECGs available Unconfirmed report - interpretation of this ECG is computer generated - see medical record for final interpretation Confirmed by - EMERGENCY ROOM, PHYSICIAN ([id number]), editor house organ AL ROBERTS ([id number]) on 07/11/2023 9:18:08 AM RADIOLOGY RESULTS 07/11/2023 [...] BI-RADS Category 1: Negative Tiffanie Mcgovern NP [facility] MAMMOGRAPHY ORDE ED from Last 3 Months or Most Recently Relevant to Health Maintenance Care Teams Apartment House Manager Relationship Specialty Start Date End Date Tiffanie Mcgovern NP [address] [address] PCP - General 07/11/23
--- OUTSIDE RECORDS SUMMARY | 2023-07-18 11:20 | XMS_ITS | Encounter Summary ---
Author Name Unknown Organization [place] Address [address] [place] [address] Care Team Providers Care Bridge Maintainer Name Role Phone Frw, None Primary Care Provider Tiffanie Crow NP Primary Care Provider Encounter Details Date Type Department Care Team (Late st Contact Info) Description 06/07/2004 [facility] [place] PHOTOCOPYING MACHINE OPERATOR [address] [place] [phone] Butch Mitchell MD Social History Tobacco Use [...] on filedocumented in this encounter Care Teams Bridge Maintainer Relationship Specialty Start Date End Date Frw, None PCP - General 04/02/00 11/07/16 Tiffanie cMgovern NP [address] [address] PCP - General 07/11/23 documented as of this encounter
--- OUTSIDE RECORDS SUMMARY | 2023-07-18 11:20 | XMS_ITS | Encounter Summary ---
Author Name Unknown Organization [place] Address [address] [place] [address] Care Team Providers Care Sports Bookmaker Name Role Phone Tiffanie Mcgovern NP Primary Care Provider [phone] Reason for Visit * Reason Comments Chest Pain Encounter Details Date Type Department Care Team (Late st Contact Info) Description 07/11/2023 9:12 AM CDT - 07/11/2023 1:16 PM CDT Emergency [facility] Emergency Dept [address] [place] [address] Amara Bliss MD [facility] [address] [place] [address] Chest pain, unspecified type; Upper abdominal pain; [...] in the amount of wet diapers/urine. Your or child starts to have dry mouth [...] directed by your provider today. Before using [id number] medications, ask your provider and make sure [...] Care Everywhere. * Pulmonary Nodules: General Info (Russian) * Chest Pain (Russian) documented in this encounter Medications at Time [...] Migraine w/ aura HLD MDD Prinzmetal angina [place] Medications Robaxin Relafen Zocor Zanaflex Desyrel Verelan [...] 12 months. ODIN FELICIANO MD SYSTEM ID: [id number] Results per radiology EKG ECG taken at 900, ECG read at 04 Normal sinus rhythm Cannot rule Anterior infract, age undetermined Abnormal ECG Rate 60 bpm. NC interval 162 ms. QRS duration 90 ms. [...] unspecified headache type R51.9 Scribe Disclosure: I, Luis Eastman, am serving as a scribe at [...] 12 months. ODIN FELICIANO MD SYSTEM ID: ??[id number] Narrative 07/11/2023 11:[address] AORTIC [...] 12 months. ODIN FELICIANO MD SYSTEM ID: [id number] Amara Bliss MD [facility] CT ORDERABLE S * Extra Red Top Tube (07/11/2023 9:27 AM CDT) Pathologist [facility] Hold Specimen [facility] 07/11/2023 11:01 AM CDT LABORATORY Blood VENOUS LINE / Unknown Venipuncture / Unknown 07/11/2023 9:27 AM CDT 07/11/2023 9:59 AM CDT Amara Bliss MD LAB - BLOOD RUBEN WARD [facility] Organization Address City/State/ZIP Co de Phone Number [facility] Acute Care Lab [address] Lab (1st floor, no room number) [place] [address] * BNP (07/11/2023 9:27 AM CDT) Pathologist [facility] N terminal Pro BNP Inpatient 152 0 [...] Bliss MD LAB - BLOOD RUBEN WARD [facility] Organization Address City/State/ZIP Co de Phone Number LABORATORY [facility] Acute Care Lab [address] Lab (1st floor, no room number) [place] [address] * D dimer quantitative (07/11/2023 9:27 AM CDT) [facility] D-Dimer Quantitative 0.44 0.00 - 0.50 ug/mL [...] out pulmonary embolism: The ADJUST-PE Study. LIONEL 2014;311:2505-5551.; HJ Tatiana et al. Diagnostic accuracy of conventional or age adjusted D-dimer cutoff values in older patients with suspected venous thromboembolism. Systemic review and meta-analysis. BMJ 2013:346:f2492. Amara Bliss MD LAB - BLOOD RUBEN WARD [facility] Acute Care Lab [address] [employer] Lab (1st floor, no room number) [address] * Extra Blue Top Tube (07/11/2023 9:27 AM CDT) [facility] Hold Specimen [facility] 07/11/2023 10:46 AM CDT LABORATORY Blood VENOUS LINE / Unknown Venipuncture / Unknown 07/11/2023 9:27 AM CDT 07/11/2023 9:34 AM CDT Amara Bliss MD LAB - BLOOD RUBEN WARD [facility] Care Lab [address] Lab (1st floor, no room number) [address] * CBC with platelets and differential (07/11/2023 9:27 AM CDT) Pathologist [facility] WBC Count 5.2 4.0 - 11.0 10e3/uL [...] [facility] [address] Lab (1st floor, no room number) [place] [address] * Troponin T, High Sensitivity (07/11/2023 9:27 AM CDT) [facility] Troponin T, High Sensitivity <6 [...] MD LAB - BLOOD RUBEN WARD LABORATORY [facility] Acute Care Lab [address] Lab (1st floor, no room number) [place] [phone] * Lipase (07/11/2023 9:27 AM CDT) Lipase 44 13 - 60 U/L 07/11/2023 9:55 AM CDT RH LABORATORY Blood VENOUS LINE / Unknown Venipuncture / Unknown 07/11/2023 9:27 AM CDT 07/11/2023 9:34 AM CDT Amara Bliss MD LAB - BLOOD RUBEN WARD RH LABORATORY [facility] Acute Care Lab [address] Lab (1st floor, no room number) [place] [phone] * (ABNORMAL) Comprehensive metabolic panel (07/11/2023 [...] Bliss MD LAB - BLOOD RUBEN WARD [facility] Organization Address City/State/ZIP Co de Phone Number RH LABORATORY [facility] Acute Care Lab [address] Lab (1st floor, no room number) [place] [address], [facility] * EKG 12-lead, tracing only (07/11/2023 9:01 AM CDT) Systolic Blood Pressure mmHg RADIOLOGY RESULTS Diastolic Blood Pressure mmHg RADIOLOGY RESULTS Ventricular Rate 60 BPM RAD IOLOGY RESULTS Atrial Rate 60 BPM RADIOLOG Y RESULTS NC Interval 162 ms RADIOLOG Y RESULTS QRS Duration 90 ms RADIOLO GY RESULTS QT 454 ms RADIOLOGY RESULTS QTc 454 ms RADIOLOGY RESULTS P [employer] 70 degrees RADIOLOGY RESULTS R AXIS 9 degrees RADIOLOGY RESULTS T [employer] 44 degrees RADIOLOGY RESULTS Interpretation ECG Sinus rhythm Cannot rule out Anterior infarct , age undetermined Abnormal ECG No previous ECGs available Unconfirmed report - interpretation of this ECG is computer generated - see medical record for final interpretation Confirmed by - EMERGENCY ROOM, PHYSICIAN ([id number]), social media editor AL ROBERTS ([id number]) on 07/11/2023 9:18:08 AM RADIOLOGY RESULTS 07/11/2023 [...] Shake well. 0941 ($Given - Provi rajni: Ana Issa RN) famotidine (PEPCID) tablet 20 mg [...] 159/94) documented in this encounter Care Teams Sports Bookmaker Relationship Specialty Start Date End Date Tiffanie Mcgovern NP [address] [address] PCP - General 07/11/23 documented as of this encounter
--- OUTSIDE RECORDS SUMMARY | 2023-07-18 11:21 | XMS_ITS | Encounter Summary ---
Author Name Unknown Organization [facility] er Address [address] [place] [address] Care Team Providers Care Billet Header Name Role Phone Tiffanie Mcgovern [employer], [employer] SUPERVISOR Primary Care Provi rajni Reason for Visit * Reason Comments Med Refill Encounter Details Date Type Department Care Team (Late st Contact Info) Description 09/02/2018 Refill Robert Guerrero [address] [place] [address] Tiffanie Mcgovern, [employer], [employer] SUPERVISOR [address] [place] [address] Hyperlipidemia, unspecified hyperlipidemia type (Primary Dx) Social [...] Rule Out 02/18/2020 02/18/2020 02/18/2020 4:41 PM CHILI POWDER MIXER COVID-19 Rule Out 02/27/2021 02/27/2021 02/27/2021 10:40 AM CHILI [employer] COVID-19 Confirmed 02/27/2021 02/27/2021 2 8:17 PM CDT documented as of this encounter Care Teams Billet Header Relationship Specialty Start Date End Date Tiffanie Mcgovern APRN, KYLE [address] [facility] [place] [address] PCP - General Family Medicine 02/27/21 documented as of this encounter
== END 2023-07-16 07:54 | disposition home or self-care (01) ==
LOC: NFLDREF 07-18 11:18
PROVIDERS: PCP Nurse Practitioner Family; Referring Provider Nurse Practitioner Family; Visit Provider Nurse Practitioner Family
DX: R10.13 Epigastric pain (principal)
CPT/HCPCS: 87338

== ENCOUNTER 2023-08-05 13:36 | Outpatient (CLI) | payer OTHER, SELFPAY ==
--- OUTSIDE RECORDS SUMMARY | 2023-08-05 13:38 | XMS_ITS | Referral Summary ---
Author Organization [place] Address [address] [place] [address] Care Team Providers Care Corporate Strategy Associate Name Role Phone Tiffanie Mcgovern NP Primary Care Provider Encounters Date Type Department Care Team Description 07/11/2023 Travel 07/11/2023 9:12 AM CDT - 07/11/2023 1:16 PM CDT Emergency [facility] Emergency Dept [address] [place] [phone] Amara Bliss MD Chest pain, unspecified type; [...] Getting School Help Needed Not on file 07/10 Sex and Gender Information Value Date Recorded [...] 12 months. ODIN FELICIANO MD SYSTEM ID: ??[id number] Narrative 07/11/2023 11:[address] AORTIC [...] 12 months. ODIN FELICIANO MD SYSTEM ID: [id number] Amara Bliss MD [facility] CT ORDERABLE S * Extra Red Top Tube (07/11/2023 9:27 AM CDT) Pathologist [facility] Hold Specimen [facility] 07/11/2023 11:01 AM CDT LABORATORY Blood VENOUS LINE / Unknown Venipuncture / Unknown 07/11/2023 9:27 AM CDT 07/11/2023 9:59 AM CDT Amara Bliss MD LAB - BLOOD RUBEN WARD [facility] Organization Address City/State/ZIP Co de Phone Number [facility] Acute Care Lab [address] Lab (1st floor, no room number) [place] [phone] * Extra Blue Top Tube (07/11/2023 9:27 AM CDT) Hold Specimen [facility] 07/11/2023 10:46 AM CDT RH LABORATORY Blood VENOUS LINE / Unknown Venipuncture / Unknown 07/11/2023 9:27 AM CDT 07/11/2023 9:34 AM CDT Amara Bliss MD LAB - BLOOD RUBEN WARD RH LABORATORY [facility] Lab [address] [email or web address] Lab (1st floor, no room number) [place] [phone] [place] [address] * CBC with platelets and differential (07/11/2023 9:27 AM CDT) [facility] Signature WBC Count 5.2 4.0 - 11.0 10e3/uL [...] Amara Bliss MD LAB - BLOOD ORDE [facility] Organization Address City/State/ZIP Co de Phone Number RH LABORATORY [facility] Acute Care Lab [address] Lab (1st floor, no room number) [place] [address], [facility] * Troponin T, High Sensitivity (07/11/2023 9:27 AM CDT) [facility] Troponin T, High Sensitivity <6 <=14 ng/L [...] LAB - BLOOD RUBEN WARD [facility] Acute Care Lab [address] Lab (1st floor, no room number) [place] [address] * BNP (07/11/2023 9:27 AM CDT) [facility] N terminal Pro BNP Inpatient 152 0 [...] Bliss MD LAB - BLOOD RUBEN WARD Performing Organization Address City/[facility]/ZIP Co de Phone Number LABORATORY [facility] Acute Care Lab [address] Lab (1st floor, no room number) [place] [phone] [place] [address] * Lipase (07/11/2023 9:27 AM CDT) Lipase 44 13 - 60 U/L 07/11/2023 9:55 AM CDT LABORATORY Blood VENOUS LINE / Unknown Venipuncture / Unknown 07/11/2023 9:27 AM CDT 07/11/2023 9:34 AM CDT Amara Bliss MD LAB - BLOOD [facility] Performing Organization Address [facility]/ZIP Co de Phone Number LABORATORY [facility] Acute Care Lab [address] Lab (1st floor, no room number) [place] [phone] * D dimer quantitative (07/11/2023 [...] out pulmonary embolism: The ADJUST-PE Study. LIONEL 2014;311:1165-5083.; HJ Tatiana et al. Diagnostic accuracy of conventional or age adjusted D-dimer cutoff values in older patients with suspected venous thromboembolism. Systemic review and meta-analysis. BMJ 2013:346:f2492. Amara Bliss MD LAB - BLOOD RUBEN WARD RH LABORATORY [facility] Acute Care Lab [address] [facility] Lab (1st floor, no room number) [place] [address] * (ABNORMAL) Comprehensive metabolic panel (07/11/2023 9:27 AM CDT) [facility] Sodium 137 135 - 145 mmol/L 07/11/2023 [...] Bliss MD LAB - BLOOD RUBEN WARD [facility] Organization Address City/State/ZIP Co de Phone Number RH LABORATORY [facility] Acute Care Lab [address] Lab (1st floor, no room number) [place] [address], [place] * EKG 12-lead, tracing only (07/11/2023 9:01 AM CDT) Systolic Blood Pressure mmHg RADIOLOGY RESULTS Diastolic Blood Pressure mmHg RADIOLOGY RESULTS Ventricular Rate 60 BPM RAD IOLOGY RESULTS Atrial Rate 60 BPM RADIOLOG Y RESULTS IN Interval 162 ms RADIOLOG Y RESULTS QRS Duration 90 ms RADIOLO GY RESULTS QT 454 ms RADIOLOGY RESULTS QTc 454 ms RADIOLOGY RESULTS P [place] 70 degrees RADIOLOGY RESULTS R AXIS 9 degrees RADIOLOGY RESULTS T [place] 44 degrees RADIOLOGY RESULTS Interpretation ECG Sinus rhythm Cannot rule out Anterior infarct , age undetermined Abnormal ECG No previous ECGs available Unconfirmed report - interpretation of this ECG is computer generated - see medical record for final interpretation Confirmed by - EMERGENCY ROOM, PHYSICIAN ([id number]), state editor AL ROBERTS ([id number]) on 07/11/2023 9:18:08 AM RADIOLOGY RESULTS 07/11/2023 [...] Recently Relevant to Health Maintenance Care Teams Corporate Strategy Associate Relationship Specialty Start Date End Date Tiffanie Mcgovern NP [address] [address] PCP - General 07/11/23
--- OUTSIDE RECORDS SUMMARY | 2023-08-05 13:38 | XMS_ITS | Clinical Summary ---
Author Organization [place] Address [address] [place] [address] Care Team Providers Care Salt Washer Harvesting Station Name Role Phone Tiffanie Mcgovern NP Primary [...] CDT - 07/11/2023 1:16 PM CDT Emergency [facility] Emergency Dept [address] [place] [address] Amara Bliss MD Chest pain, unspecified type; [...] FIT 1969 FLEX SIG 1969 LIPID 1969 sDNA (Cologuard) 1969 COLONOSCOPY 08/16/1979 COLORECTAL CANCER SCREENING 08/16/1979 HIV SCREENING 1984 HEPATITIS C SCREENING 08/16/1987 PAP 1990 LUNG CANCER SCREENING 08/16/2019 ZOSTER IMMUNIZATION (1 of 2) 08/16/2019 MAMMO SCREENING 10/27/2020 10/27/2018, 10/09, 05/06/2017, Additional history exists YEARLY PREVENTIVE VISIT 04/27/2021 04/27/2020 COVID-19 Vaccine (3 - season) 2022 05/03/2020, [...] 12 months. ODIN FELICIANO MD SYSTEM ID: [id number] Narrative 07/11/2023 11:[address] AORTIC [...] 12 months. ODIN FELICIANO MD SYSTEM ID: [id number] Amara Bliss MD IM CT ORDERABLE S * Extra Red Top Tube (07/11/2023 9:27 AM CDT) Hold Specimen [facility] 07/11/2023 11:01 AM CDT LABORATORY Blood VENOUS LINE / Unknown Venipuncture / Unknown 07/11/2023 9:27 AM CDT 07/11/2023 9:59 AM CDT Amara Bliss MD LAB - BLOOD RUBEN WARD [facility] Organization Address City/State/ZIP Co de Phone Number [facility] Acute Care Lab [address] [facility] Lab (1st floor, no room number) [place] [address], [facility] * Extra Blue Top Tube (07/11/2023 9:27 AM CDT) Hold Specimen [facility] 07/11/2023 10:46 AM CDT RH LABORATORY Blood VENOUS LINE / Unknown Venipuncture / Unknown 07/11/2023 9:27 AM CDT 07/11/2023 9:34 AM CDT Amara Bliss MD LAB - BLOOD RUBEN WARD [facility] Organization Address City/State/ZIP Co de Phone Number RH LABORATORY [facility] Acute Care Lab [address] Lab (1st floor, no room number) [place] [address] [[email or web address]] * CBC with platelets and differential (07/11/2023 [...] CDT Amara Bliss MD LAB - BLOOD [facility] Organization Address City/State/ZIP Co de Phone Number LABORATORY [facility] Acute [facility] Lab [address] [facility] Lab (1st floor, no room number) [place] [address] [[email or web address]] * Troponin T, High Sensitivity (07/11/2023 9:27 AM CDT) [facility] Troponin T, High Sensitivity <6 <=14 ng/L [...] AM CDT 07/11/2023 9:34 AM CDT Amara Blsis MD LAB - BLOOD RUBEN WARD Performing Organization Address City/[facility]/ZIP Co de Phone Number [facility] Care Lab [address] Lab (1st floor, no room number) [place] [address] [[email or web address]] * BNP (07/11/2023 9:27 AM CDT) [facility] N terminal Pro BNP Inpatient [id number] [...] Bliss MD LAB - BLOOD RUBEN WARD [facility] Lab [address] Lab (1st floor, no room number) [place] [address], [facility] * Lipase (07/11/2023 9:27 AM CDT) Lipase 44 13 - 60 U/L 07/11/2023 9:55 AM CDT RH LABORATORY Blood VENOUS LINE / Unknown Venipuncture / Unknown 07/11/2023 9:27 AM CDT 07/11/2023 9:34 AM CDT Amara Bliss MD LAB - BLOOD RUBEN WARD [facility] LABORATORY [facility] [address] Lab (1st floor, no room number) [place] [address] [[email or web address]] * D dimer quantitative (07/11/2023 9:27 AM [...] out pulmonary embolism: The ADJUST-PE Study. LIONEL 2014;311:2668-7402.; HJ Tatiana et al. Diagnostic accuracy of conventional or age adjusted D-dimer cutoff values in older patients with suspected venous thromboembolism. Systemic review and meta-analysis. BMJ 2013:346:f2492. Amara Bliss MD LAB - BLOOD RUBEN WARD [facility] LABORATORY [facility] [address] Lab (1st floor, no room number) [place] [address] [[email or web address]] * (ABNORMAL) Comprehensive metabolic panel (07/11/2023 9:27 AM CDT) [facility] Sodium 137 135 - 145 mmol/L 07/11/2023 [...] LAB - BLOOD RUBEN WARD RH LABORATORY [facility] [address] Lab (1st floor, no room number) [place] [address], [facility] * EKG 12-lead, tracing only (07/11/2023 9:01 AM CDT) Systolic Blood Pressure mmHg RADIOLOGY RESULTS Diastolic Blood Pressure mmHg RADIOLOGY RESULTS Ventricular Rate 60 BPM RAD IOLOGY RESULTS Atrial Rate 60 BPM RADIOLOG Y RESULTS CT Interval 162 ms RADIOLOG Y RESULTS QRS Duration 90 ms RADIOLO GY RESULTS QT 454 ms RADIOLOGY RESULTS QTc 454 ms RADIOLOGY RESULTS P [place] 70 degrees RADIOLOGY RESULTS R AXIS 9 degrees RADIOLOGY RESULTS T [place] 44 degrees RADIOLOGY RESULTS Interpretation ECG Sinus rhythm Cannot rule out Anterior infarct , age undetermined Abnormal ECG No previous ECGs available Unconfirmed report - interpretation of this ECG is computer generated - see medical record for final interpretation Confirmed by - EMERGENCY ROOM, PHYSICIAN ([id number]), pictures editor AL ROBERTS ([id number]) on 07/11/2023 9:18:08 AM RADIOLOGY RESULTS 07/11/2023 [...] Negative Tiffanie Mcgovern NP IMG MAMMOGRAPHY ORDE RABNICOLE from Last 3 Months or Most Recently Relevant to Health Maintenance Care Teams Salt Washer Harvesting Station Relationship Specialty Start Date End Date Tiffanie Mcgovern NP [address] [address] PCP - General 07/11/23
--- OUTSIDE RECORDS SUMMARY | 2023-08-05 13:38 | XMS_ITS | Encounter Summary ---
Author Organization [facility] er Address [address] [place] [address] Care Team Providers Care Plate Corrector Name Role Phone Tiffanie Mcgovern APRN, MITOCHONDRIAL DISORDERS COUNSELOR Primary Care Provi rajni Reason for Visit * Reason Comments Med Refill Encounter Details Date Type Department Care Team (Late st Contact Info) Description 12/28/2019 Refill [facility] [address] [place] [address] Valerie Major MD [address] [place] [phone] Edema, unspecified type Social History Tobacco Use [...] Rule Out 02/18/2020 02/18/2020 02/18/2020 4:41 PM SENIOR WEB DEVELOPER COVID-19 Rule Out 02/27/2021 02/27/2021 02/27/2021 10:40 AM SENIOR WEB DEVELOPER COVID-19 Confirmed 02/27/2021 02/27/2021 2 8:17 PM CDT documented as of this encounter Care Teams Plate Corrector Relationship Specialty Start Date End Date Tiffanie Mcgovern, DIRECT MARKETING EXECUTIVE, MITOCHONDRIAL DISORDERS COUNSELOR [address] [place] [address] PCP - General Family Medicine 02/27/21 documented as of this encounter
--- OUTSIDE RECORDS SUMMARY | 2023-08-05 13:38 | XMS_ITS | Encounter Summary ---
Author Organization [place] Address [address] [place] [address] Care Team Providers Care Retail Sales Teammate Name Role Phone Frw, None Primary Care Provider Tiffanie Crow NP Primary Care Provider Encounter Details Date Type Department Care Team (Late st Contact Info) Description 06/07/2004 [facility] in [place] A CLASS LINEMAN [address] [place] [phone] Butch Mitchell MD Social History Tobacco Use [...] on filedocumented in this encounter Care Teams Retail Sales Teammate Relationship Specialty Start Date End Date Frw, None PCP - General 04/02/00 11/07/16 Tiffanie Mcgovern NP [address] [address] PCP - General 07/11/23 documented as of this encounter
--- OUTSIDE RECORDS SUMMARY | 2023-08-05 13:38 | XMS_ITS | Encounter Summary ---
Author Organization [facility] er Address [address] [place] [address] Care Team Providers Care Ticket Collector Name Role Phone Tiffanie Mcgovern APRN, ONCOLOGY RN Primary Care Provi rajni Reason for Visit * Reason Comments Med Refill Encounter Details Date Type Department Care Team (Late st Contact Info) Description 11/22/2021 Refill [place] [address] [address] Roopa Lopez MD 1705 [facility] [address] [place] [address] Postablative hypothyroidism Social History Tobacco Use Types [...] her refill requests to Dennis Mcgovern in [place]. Pt agreed. * Telephone Encounter - Alyce Shah - 11/26/2021 9:01 AM CDT Noted. * Telephone Encounter - Doris Garcia RN - 11/26/2021 8:34 AM CDT Left message on secured line for patient to contact PCP in [place] for refills and to advise pharmacy of [...] hypothyroidism documented in this encounter Care Teams Ticket Collector Relationship Specialty Start Date End Date Tiffanie Mcgovern, PEOPLE MANAGER, ONCOLOGY RN [address] [place] [address] PCP - General Family Medicine 02/27/21 documented as of this encounter
--- OUTSIDE RECORDS SUMMARY | 2023-08-05 13:38 | XMS_ITS | Encounter Summary ---
Author Organization [facility] er Address [address] [place] [address] Care Team Providers Care Investment Professional Name Role Phone Mynor Mcgovern APRN, HANDKERCHIEF PRESSER Primary Care Provi rajni Reason for Visit * Reason Comments Med Refill Encounter Details Date Type Department Care Team (Late st Contact Info) Description 08/20/2021 Refill [place] [address] [address] Roopa Lopez MD 1705 [facility] [address] [place] [address] GUSTAVO (generalized anxiety disorder) Social History Tobacco [...] disorder documented in this encounter Care Teams Investment Professional Relationship Specialty Start Date End Date Mynor Mcgovern APRN, HANDKERCHIEF PRESSER [address] [place] [address] PCP - General Family Medicine 02/27/21 documented as of this encounter
--- OUTSIDE RECORDS SUMMARY | 2023-08-05 13:38 | XMS_ITS | Clinical Summary ---
Author Organization [facility] er Address [address] [place] [address] Care Team Providers Care Credit Compliance Officer Name Role Phone Tiffanie Mcgovern APRN, FERMENTER HELPER Primary Care Provi rajni Allergies Active Allergy [...] tablet 2 12/30/2022 Active Sodium Chloride-Sodium Bicarb ([place] Saline Nasal Neti Rinse) 1.57 g [...] therapy and states her daughter is a circus trainer. Also trying to lose weight and [...] week 12/30/2022 How often do you attend [facility] or anabaptist services? 1 to 4 times per year 12/30/2022 Do you belong to any clubs o r organizations such as jainism groups, unions, fraternal [...] Date Recorded PHQ-9 Total Score 4 12/30/2022 [facility] - Occupational Stress [...] place to sleep or slept in a chcf (including now)? No 12/30/2022 Sex and Gender [...] 11/07/2020 11/08/2019, 10/27/2018, 10/27/2018 COVID-19 Vaccine (3 2022-2 4 season) 2022 05/03/2020, 04/05/2020 Influenza [...] Diagnosis Comments COLOGUARD Routine 05/11/2020 6:30 AM INGOT BUGGY OPERATOR Well adult exam from Last 3 Months or Most Recently Relevant to Health Maintenance Results * Cologuard (05/11/2020 6:30 AM INGOT BUGGY OPERATOR) Cologuard result Negative Not Applicable [employer] Comment: A negative result indicates a low [...] Gaona et al, N Engl J Med 2014;370(14):6182-9198) The normal value (reference range) for this assay is negative. COLOGUARD RE-SCREENING RECOMMENDATION: Periodic routine colorectal cancer screening is an important part of preventive healthcare for asymptomatic persons at average risk for colorectal cancer. Following a negative Cologuard result, the [place] Cancer Society and U.S. Multi-Society Task Force screening guidelines recommend a Cologuard re-screening interval of 3 years. References: [place] [employer] Society (ACS). Colorectal cancer prevention and early detection. [place], [place]: [place] [employer] Society; [updated 2015Jul 01]. https://www.cancer.org/cancer/njquf-oonotg-tyusfi/bhzimjamu-bxqrihydx-cznxpen/ac s-rec ommendations.html. Accessed November 07, 2017; Jake DK, Clarissa CR, Sung GutierrezK, Colorectal Cancer Screening: Recommendations for Physicians and Patients from the U.S. Multi-Society Task Force on Colorectal Cancer Screening, Am J Gastroenterology 2017; 112:6728-5590. TEST TYPE: Composite algorithmic analysis of stool [...] interval of every 3 years by the [place] Cancer Society and U.S. Multi-Society Task Force. [...] can be accessed at the following location: www.[employer]/results. Additional description of the Cologuard test process, warnings and precautions can be found at www.cologuardtest.com. Rx only. [employer], [address] [place], [address], , Clinical Laboratory Cardiovascular Or Nurse, BRIANNA HANDY, , CLIA NO: [id number] Stool 05/11/2020 6:30 AM INGOT BUGGY OPERATOR 05/12/2020 12:30 PM INGOT BUGGY OPERATOR Catalina Pennington APRN, FERMENTER HELPER LAB BODY FLUIDS AN D STOOLS ORDERABLES [employer] [address] [place] [id number], from Last 3 Months or Most Recently Relevant to Health Maintenance Care Teams Credit Compliance Officer Relationship Specialty Start Date End Date Tiffanie Mcgovern APRN, FERMENTER HELPER [address] [facility] [place] [address] PCP - General Family Medicine 02/27/21
--- OUTSIDE RECORDS SUMMARY | 2023-08-05 13:38 | XMS_ITS | Encounter Summary ---
Author Organization [facility] Address [address] [place] [address] Care Team Providers Care Pillow Cleaner Name Role Phone Tiffanie Mcgovern NP Primary [...] on filedocumented in this encounter Care Teams Pillow Cleaner Relationship Specialty Start Date End Date Tiffanie Mcgovern NP [address] [address] PCP - General 07/11/23 documented as of this encounter
--- OUTSIDE RECORDS SUMMARY | 2023-08-05 13:38 | XMS_ITS | Encounter Summary ---
Author Organization [place] Address [address] [place] [address] Care Team Providers Care Patrol Community Service Officer Name Role Phone Tiffanie Mcgovern NP Primary Care Provider Reason for Visit * Reason Comments Chest Pain Encounter Details Date Type Department Care Team (Late st Contact Info) Description 07/11/2023 9:12 AM CDT - 07/11/2023 1:16 PM CDT Emergency [facility] Emergency Dept [address] [place] [address] Amara Bliss MD [facility] [address] [place] [address] Chest pain, unspecified type; Upper abdominal pain; [...] directed by your provider today. Before using [id number] medications, ask your provider and make sure [...] Care Everywhere. * Pulmonary Nodules: General Info (Polish) * Chest Pain (Polish) documented in this encounter Medications at Time [...] Migraine w/ aura HLD MDD Prinzmetal angina NE Medications Robaxin Relafen Zocor Zanaflex Desyrel Verelan [...] 12 months. ODIN FELICIANO MD SYSTEM ID: [id number] Results per radiology EKG ECG taken at 900, ECG read at 04 Normal sinus rhythm Cannot rule Anterior infract, age undetermined Abnormal ECG Rate 60 bpm. TX interval 162 ms. QRS duration 90 ms. [...] unspecified headache type R51.9 Scribe Disclosure: I, Luisnayan [place], am serving as a scribe at [...] 12 months. ODIN FELICIANO MD SYSTEM ID: [id number] Narrative 07/11/2023 11:[address] AORTIC [...] 12 months. ODIN FELICIANO MD SYSTEM ID: [id number] Amara Bliss MD [facility] CT ORDERABLE S * Extra Red Top Tube (07/11/2023 9:27 AM CDT) Pathologist [facility] Hold Specimen [facility] 07/11/2023 11:01 AM CDT LABORATORY Blood VENOUS LINE / Unknown Venipuncture / Unknown 07/11/2023 9:27 AM CDT 07/11/2023 9:59 AM CDT Amara Bliss MD LAB - BLOOD RUBEN WARD [facility] Organization Address City/State/ZIP Co de Phone Number [facility] Acute Care Lab [address] Lab (1st floor, no room number) [place] [address] * BNP (07/11/2023 9:27 AM CDT) [facility] N terminal Pro BNP Inpatient 152 [id number] [...] Address City/State/ZIP Co de Phone Number LABORATORY [facility] Acute Care Lab [address] Lab (1st floor, no room number) [place] [address] * D dimer quantitative (07/11/2023 9:27 AM CDT) [facility] D-Dimer Quantitative 0.44 0.00 - 0.50 ug/mL [...] out pulmonary embolism: The ADJUST-PE Study. LIONEL 2014;311:4165-1712.; HJ Tatiana et al. Diagnostic accuracy of conventional or age adjusted D-dimer cutoff values in older patients with suspected venous thromboembolism. Systemic review and meta-analysis. BMJ 2013:346:f2492. Amara Bliss MD LAB - BLOOD RUBEN WARD [facility] Care Lab [address] [employer] Lab (1st floor, no room number) [place] [phone] [place] [address] * Extra Blue Top Tube (07/11/2023 9:27 AM CDT) [facility] Hold Specimen [facility] 07/11/2023 10:46 AM CDT LABORATORY Blood VENOUS LINE / Unknown Venipuncture / Unknown 07/11/2023 9:27 AM CDT 07/11/2023 9:34 AM CDT Amara Bliss MD LAB - BLOOD RUBEN WARD [facility] Care Lab [address] Lab (1st floor, no room number) [address] * CBC with platelets and differential (07/11/2023 9:27 AM CDT) [facility] WBC Count 5.2 4.0 - 11.0 10e3/uL [...] MD LAB - BLOOD RUBEN WARD LABORATORY [facility] Care Lab [address] Lab (1st floor, no room number) [place] [address] * Troponin T, High Sensitivity (07/11/2023 9:27 AM CDT) [facility] Troponin T, High Sensitivity <6 <=14 ng/L [...] MD LAB - BLOOD RUBEN WARD LABORATORY [facility] Acute Care Lab [address] Lab (1st floor, no room number) [place] [phone] * Lipase (07/11/2023 9:27 AM CDT) Lipase 44 13 - 60 U/L 07/11/2023 9:55 AM CDT RH LABORATORY Blood VENOUS LINE / Unknown Venipuncture / Unknown 07/11/2023 9:27 AM CDT 07/11/2023 9:34 AM CDT Amara Bliss MD LAB - BLOOD RUBEN WARD LABORATORY [facility] Acute Care Lab [address] Lab (1st floor, no room number) [place] [phone] * (ABNORMAL) Comprehensive metabolic panel (07/11/2023 9:27 [...] City/State/ZIP Co de Phone Number RH LABORATORY [facility] Acute Care Lab [address] [facility] Lab (1st floor, no room number) [place] [address], [facility] * EKG 12-lead, tracing only (07/11/2023 9:01 AM CDT) Systolic Blood Pressure mmHg RADIOLOGY RESULTS Diastolic Blood Pressure mmHg RADIOLOGY RESULTS Ventricular Rate 60 BPM RAD IOLOGY RESULTS Atrial Rate 60 BPM RADIOLOG Y RESULTS TX Interval 162 ms RADIOLOG Y RESULTS QRS Duration 90 ms RADIOLO GY RESULTS QT 454 ms RADIOLOGY RESULTS QTc 454 ms RADIOLOGY RESULTS P [place] 70 degrees RADIOLOGY RESULTS R AXIS 9 degrees RADIOLOGY RESULTS T [place] 44 degrees RADIOLOGY RESULTS Interpretation ECG Sinus rhythm Cannot rule out Anterior infarct , age undetermined Abnormal ECG No previous ECGs available Unconfirmed report - interpretation of this ECG is computer generated - see medical record for final interpretation Confirmed by - EMERGENCY ROOM, PHYSICIAN ([id number]), photograph editor AL ROBERST ([id number]) on 07/11/2023 9:18:08 AM RADIOLOGY RESULTS 07/11/2023 [...] minutes. 0928 ($Given - Provi rajni: Ana Issa, RN - Comment: given pre nitro per [...] doses 0935 ($Given - Provi rajni: Ana Issa, RN - Comment: 159/94) documented in this encounter Care Teams Patrol Community Service Officer Relationship Specialty Start Date End Date Tiffanie Mcgovern NP [address] [address] PCP - General 07/11/23 documented as of this encounter
--- OUTSIDE RECORDS SUMMARY | 2023-08-05 13:39 | XMS_ITS | Encounter Summary ---
Author Organization [facility] er Address [address] [place] [address] Care Team Providers Care Java Developer With Security Clearance Name Role Phone Tiffanie Mcgovern PALLETIZER, COMMUNICATION ANALYST Primary Care Provi rajni Reason for Visit * Reason Comments Med Refill Encounter Details Date Type Department Care Team (Late st Contact Info) Description 09/02/2018 Refill [facility] [address] [place] [address] Tiffanie Mcgovern, PALLETIZER, COMMUNICATION ANALYST [address] [place] [address] Hyperlipidemia, unspecified hyperlipidemia type (Primary Dx) Social [...] Rule Out 02/18/2020 02/18/2020 02/18/2020 4:41 PM SHIP WIRER COVID-19 Rule Out 02/27/2021 02/27/2021 02/27/2021 10:40 AM SHIP WIRER COVID-19 Confirmed 02/27/2021 02/27/2021 2 8:17 PM CDT documented as of this encounter Care Teams Java Developer With Security Clearance Relationship Specialty Start Date End Date Tiffanie Mcgovern APRN, KYLE [address] [facility] [place] [address] PCP - General Family Medicine 02/27/21 documented as of this encounter
--- OUTSIDE RECORDS SUMMARY | 2023-08-05 13:39 | XMS_ITS | Encounter Summary ---
Author Organization [facility] er Address [address] [place] [address] Care Team Providers Care Check Airman Name Role Phone Tiffanie Mcgovern APRN, APPLICATION PROGRAMMER ANALYST Primary Care Provi rajni Encounter Details Date Type Department Care Team (Late st Contact Info) Description 12/06/2019 Telephone [place] [address] [place] [address] Roopa Loepz MD [address] [facility] [address] [place] [address] Social History Tobacco Use Types Packs/Day Years [...] Rule Out 02/18/2020 02/18/2020 02/18/2020 4:41 PM INSTRUCTIONAL SERVICES LIBRARIAN COVID-19 Rule Out 02/27/2021 02/27/2021 02/27/2021 10:40 AM INSTRUCTIONAL SERVICES LIBRARIAN COVID-19 Confirmed 02/27/2021 02/27/2021 2 8:17 PM CDT documented as of this encounter Care Teams Check Airman Relationship Specialty Start Date End Date Tiffanie Mcgovern, SFDC ARCHITECT, APPLICATION PROGRAMMER ANALYST [address] [facility] [address] PCP - General Family Medicine 02/27/21 documented as of this encounter
[2023-08-05 15:05] VITALS: BP 145/84; PULSE 70
--- NOTE | 2023-08-05 15:20 | W.PM.STED ---
Stress Test Note Date Date of test: 08/05/23 Providers Primary care provider: Tiffanie Mcgovern Stress test physician: Vinod Mendez Stress Test Note Stress test ordered: Stress Echo Indication for test: Chest pain Results discussion: Patient is a very nice 52-year-old female presents here for the above test. Discussion the risks benefits side effects and she would like to proceed after informed consent is given. Pretest EKG shows normal sinus rhythm with a ventricular rate of 52 blood pressure was 162/74. No acute ST wave changes are noted. Standard [facility] protocol is followed for a time course of 8 minutes 4 seconds, achieved a metabolic equivalent of 9.7 Mets conditioning was felt to be good. Her maximum heart rate was 156 and maximum blood pressure was 205/94. Review of her tracing, showed no acute ST wave changes suggestive of ischemia, there was no dysrhythmias. Test was terminated because of fulfillment of protocol and overall fatigue. Subjectively she did have any chest pain. Impression: Negative electrographic tracing of stress echo Follow up suggested: Await echo images these will be read by Cardiology, clinical correlation with these will be needed. Patient left this testing facility in excellent condition there were no complications
--- NOTE | 2023-08-05 16:00 | CRLHL7_ITS ---
For Patients: As a result of the Century Cures Act, medical imaging exams and procedure reports are released immediately into your electronic medical record. You may view this report before your referring provider. If you have questions, please contact your health care provider. INDICATION: Right lower quadrant pain COMPARISON: none TECHNIQUE: 2D lewis scale and color Doppler images were acquired of the pelvis using a transabdominal and transvaginal approach. Power Doppler evaluation of both ovaries also performed. FINDINGS: The uterus is absent. The right ovary measures 2.5 x 2.1 x 2.1 cm in size and the left ovary measures 2.6 x 1.4 x 1.5 cm. The ovaries demonstrate normal arterial and venous blood flow on color Doppler analysis. There are no suspicious fluid collections within the cul-de-sac. Normal power/spectral Doppler imaging of the ovaries. IMPRESSION: Status post hysterectomy. Normal ovaries. No ovarian torsion or adnexal mass. No excess pelvic free fluid. Dictated by Levi Cameron MD @ 08/06/2023 11:50:25 AM (Electronically Signed)
== END 2023-08-05 13:37 | disposition home or self-care (01) ==
LOC: STRESS 13:36
PROVIDERS: PCP Nurse Practitioner Family; Visit Provider Family Medicine
DX: R10.31 Right lower quadrant pain
CPT/HCPCS: 76830; 76856; 93016; 93325; 93351; 93976

== ENCOUNTER 2023-08-08 15:33 | Outpatient (CLI) | payer OTHER, SELFPAY ==
--- OUTSIDE RECORDS SUMMARY | 2023-08-11 20:26 | XMS_ITS | Encounter Summary ---
Author Organization [place] Address [address] [place] [address] Care Team Providers Care Public Transit Bus Driver Name Role Phone Frw, None Primary Care Provider Tiffanie Crow NP Primary Care Provider Encounter Details Date Type Department Care Team (Late st Contact Info) Description 06/07/2004 [facility] [place] ENROBING MACHINE FEEDER [address] [place] [phone] Butch Mitchell MD Social History Tobacco Use [...] filedocumented in this encounter Care Teams Public Transit Bus Driver Relationship Specialty Start Date End Date Frw, None PCP - General 04/02/00 11/07/16 Tiffanie Mcgovern NP [address] [address] PCP - General 07/11/23 documented as of this encounter
--- OUTSIDE RECORDS SUMMARY | 2023-08-11 20:26 | XMS_ITS | Referral Summary ---
Author Organization [place] Address [address] [place] [address] Care Team Providers Care Circular Knitter Helper Name Role Phone Tiffanie Mcgovern NP Primary Care Provider [phone] Encounters Date Type Department Care Team Description 07/11/2023 Travel 07/11/2023 9:12 AM CDT - 07/11/2023 1:16 PM CDT Emergency [facility] Emergency Dept [address] [place] [phone] Amara Bliss MD Chest pain, unspecified type; [...] 12 months. ODIN FELICIANO MD SYSTEM ID: [id number] Narrative 07/11/2023 11:[address] AORTIC [...] 12 months. ODIN FELICIANO MD SYSTEM ID: [id number] Amara Bliss MD [facility] ORDERABLE S * Extra Red Top Tube (07/11/2023 9:27 AM CDT) Pathologist [facility] Hold Specimen [facility] 07/11/2023 11:01 AM CDT LABORATORY Blood VENOUS LINE / Unknown Venipuncture / Unknown 07/11/2023 9:27 AM CDT 07/11/2023 9:59 AM CDT Amara Bliss MD LAB - BLOOD RUBEN WARD [facility] Organization Address City/State/ZIP Co de Phone Number [facility] Acute Care Lab [address] Lab (1st floor, no room number) [place] [phone] * Extra Blue Top Tube (07/11/2023 9:27 AM CDT) Hold Specimen [facility] 07/11/2023 10:46 AM CDT RH LABORATORY Blood VENOUS LINE / Unknown Venipuncture / Unknown 07/11/2023 9:27 AM CDT 07/11/2023 9:34 AM CDT Amara Bliss MD LAB - BLOOD RUBEN WARD RH LABORATORY [facility] Lab [address] [employer] Lab (1st floor, no room number) [place] [phone] [place] [address] * CBC with platelets and differential (07/11/2023 9:27 AM CDT) [facility] Signature WBC Count 5.2 4.0 - 11.0 [...] Amara Bliss MD LAB - BLOOD ORDE [facility] Organization Address City/State/ZIP Co de Phone Number RH LABORATORY [facility] Acute Care Lab [address] Lab (1st floor, no room number) [place] [address], [facility] * Troponin T, High Sensitivity (07/11/2023 9:27 AM CDT) [facility] Troponin T, High Sensitivity <6 <=14 ng/L [...] Bliss MD LAB - BLOOD RUBEN WARD [facility] Acute Care Lab [address] Lab (1st floor, no room number) [place] [address] * BNP (07/11/2023 9:27 AM CDT) [facility] N terminal Pro BNP Inpatient 152 [id number] [...] - BLOOD RUBEN WARD Performing Organization Address City/[facility]/ZIP Co de Phone Number LABORATORY [facility] Acute Care Lab [address] Lab (1st floor, no room number) [place] [phone] [place] [address] * Lipase (07/11/2023 9:27 AM CDT) Lipase 44 13 - 60 U/L 07/11/2023 9:55 AM CDT LABORATORY Blood VENOUS LINE / Unknown Venipuncture / Unknown 07/11/2023 9:27 AM CDT 07/11/2023 9:34 AM CDT Amara Bliss MD LAB - [facility]LOOD [facility] Performing Organization Address [facility]/ZIP Co de Phone Number LABORATORY [facility] Acute Care Lab [address] Lab (1st floor, no room number) [place] [phone] * D dimer quantitative (07/11/2023 [...] out pulmonary embolism: The ADJUST-PE Study. LIONEL 2014;311:4315-1905.; HJ Tatiana et al. Diagnostic accuracy of conventional or age adjusted D-dimer cutoff values in older patients with suspected venous thromboembolism. Systemic review and meta-analysis. BMJ 2013:346:f2492. Amara Bliss MD LAB - BLOOD RUBEN WARD RH LABORATORY [facility] Acute Care Lab [address] [facility] Lab (1st floor, no room number) [place] [address] * (ABNORMAL) Comprehensive metabolic panel (07/11/2023 9:27 AM CDT) [facility] Sodium 137 135 - 145 mmol/L 07/11/2023 [...] Bliss MD LAB - BLOOD RUBEN WARD [facility] Organization Address City/State/ZIP Co de Phone Number RH LABORATORY [facility] Acute Care Lab [address] Lab (1st floor, no room number) [place] [address], [place] * EKG 12-lead, tracing only (07/11/2023 9:01 AM CDT) Systolic Blood Pressure mmHg RADIOLOGY RESULTS Diastolic Blood Pressure mmHg RADIOLOGY RESULTS Ventricular Rate 60 BPM RAD IOLOGY RESULTS Atrial Rate 60 BPM RADIOLOG Y RESULTS [place] Interval 162 ms RADIOLOG Y RESULTS QRS Duration 90 ms RADIOLO GY RESULTS QT 454 ms RADIOLOGY RESULTS QTc 454 ms RADIOLOGY RESULTS P [place] 70 degrees RADIOLOGY RESULTS R AXIS 9 degrees RADIOLOGY RESULTS T [place] 44 degrees RADIOLOGY RESULTS Interpretation ECG Sinus rhythm Cannot rule out Anterior infarct , age undetermined Abnormal ECG No previous ECGs available Unconfirmed report - interpretation of this ECG is computer generated - see medical record for final interpretation Confirmed by - EMERGENCY ROOM, PHYSICIAN ([id number]), writer editor AL ROBERTS ([id number]) on 07/11/2023 9:18:08 AM RADIOLOGY RESULTS 07/11/2023 [...] Recently Relevant to Health Maintenance Care Teams Circular Knitter Helper Relationship Specialty Start Date End Date Tiffanie Mcgovern NP [address] [address] PCP - General 07/11/23
--- OUTSIDE RECORDS SUMMARY | 2023-08-11 20:26 | XMS_ITS | Clinical Summary ---
Author Organization [place] Address [address] [place] [address] Care Team Providers Care Juvenile Officer Name Role Phone Tiffanie Mcgovern NP [...] CDT - 07/11/2023 1:16 PM CDT Emergency [facility] Emergency Dept [address] [place] [address] Amara Bliss MD Chest pain, unspecified type; [...] 12 months. ODIN FELICIANO MD SYSTEM ID: ??[id number] Narrative 07/11/2023 11:[address] AORTIC [...] 12 months. ODIN FELICIANO MD SYSTEM ID: [id number] Amara Bliss MD IM CT ORDERABLE S * Extra Red Top Tube (07/11/2023 9:27 AM CDT) Hold Specimen [facility] 07/11/2023 11:01 AM CDT LABORATORY Blood VENOUS LINE / Unknown Venipuncture / Unknown 07/11/2023 9:27 AM CDT 07/11/2023 9:59 AM CDT Amara Bliss MD LAB - BLOOD RUBEN WARD [facility] Organization Address City/State/ZIP Co de Phone Number [facility] Acute Care Lab [address] [facility] Lab (1st floor, no room number) [place] [address], [facility] * Extra Blue Top Tube (07/11/2023 9:27 AM CDT) Hold Specimen [facility] 07/11/2023 10:46 AM CDT RH LABORATORY Blood VENOUS LINE / Unknown Venipuncture / Unknown 07/11/2023 9:27 AM CDT 07/11/2023 9:34 AM CDT Amara Bliss MD LAB - BLOOD RUBEN WARD [facility] Organization Address City/State/ZIP Co de Phone Number RH LABORATORY [facility] Acute Care Lab [address] Lab (1st floor, no room number) [place] [address] * CBC with platelets and differential [...] CDT Amara Bliss MD LAB - BLOOD [facility] Organization Address City/State/ZIP Co de Phone Number LABORATORY [facility] Acute Care Lab [address] [facility] Lab (1st floor, no room number) [place] [address] * Troponin T, High Sensitivity (07/11/2023 9:27 AM CDT) [facility] Troponin T, High Sensitivity <6 <=14 ng/L [...] - BLOOD RUBEN WARD Performing Organization Address City/[facility]/ZIP Co de Phone Number [facility] Care Lab [address] Lab (1st floor, no room number) [place] [address] * BNP (07/11/2023 9:27 AM CDT) [facility] N terminal Pro BNP Inpatient 152 [id number] [...] Bliss MD LAB - BLOOD RUBEN WARD [facility] Acute Care Lab [address] Lab (1st floor, no room number) [place] [address], [facility] * Lipase (07/11/2023 9:27 AM CDT) Lipase 44 13 - 60 U/L 07/11/2023 9:55 AM CDT RH LABORATORY Blood VENOUS LINE / Unknown Venipuncture / Unknown 07/11/2023 9:27 AM CDT 07/11/2023 9:34 AM CDT Amara Bliss MD LAB - BLOOD RUBEN WARD RH LABORATORY [facility] Acute Care Lab [address] Lab (1st floor, no room number) [place] [address] * D dimer quantitative (07/11/2023 9:27 [...] out pulmonary embolism: The ADJUST-PE Study. LIONEL 2014;311:5901-7299.; HJ Tatiana et al. Diagnostic accuracy of conventional or age adjusted D-dimer cutoff values in older patients with suspected venous thromboembolism. Systemic review and meta-analysis. BMJ 2013:346:f2492. Amara Bliss MD LAB - BLOOD RUBEN WARD RH LABORATORY [facility] Acute Care Lab [address] Lab (1st floor, no room number) [place] [address] * (ABNORMAL) Comprehensive metabolic panel (07/11/2023 9:27 AM CDT) [facility] Sodium 137 135 - 145 mmol/L 07/11/2023 [...] LAB - BLOOD RUBEN WARD RH LABORATORY [facility] Acute Care Lab [address] Lab (1st floor, no room number) [place] [address], [facility] * EKG 12-lead, tracing only (07/11/2023 9:01 AM CDT) Systolic Blood Pressure mmHg RADIOLOGY RESULTS Diastolic Blood Pressure mmHg RADIOLOGY RESULTS Ventricular Rate 60 BPM RAD IOLOGY RESULTS Atrial Rate 60 BPM RADIOLOG Y RESULTS [place] Interval 162 ms RADIOLOG Y RESULTS QRS Duration 90 ms RADIOLO GY RESULTS QT 454 ms RADIOLOGY RESULTS QTc 454 ms RADIOLOGY RESULTS P [place] 70 degrees RADIOLOGY RESULTS R AXIS 9 degrees RADIOLOGY RESULTS T [place] 44 degrees RADIOLOGY RESULTS Interpretation ECG Sinus rhythm Cannot rule out Anterior infarct , age undetermined Abnormal ECG No previous ECGs available Unconfirmed report - interpretation of this ECG is computer generated - see medical record for final interpretation Confirmed by - EMERGENCY ROOM, PHYSICIAN ([id number]), video editor AL ROBERTS ([id number]) on 07/11/2023 9:18:08 AM RADIOLOGY RESULTS 07/11/2023 [...] Recently Relevant to Health Maintenance Care Teams Juvenile Officer Relationship Specialty Start Date End Date Tiffanie Mcgovern NP [address] [address] PCP - General 07/11/23
--- OUTSIDE RECORDS SUMMARY | 2023-08-11 20:26 | XMS_ITS | Encounter Summary ---
Author Organization [place] Address [address] [place] [address] Care Team Providers Care Regional Sales Consultant Name Role Phone Tiffanie Mcgovern NP Primary [...] on filedocumented in this encounter Care Teams Regional Sales Consultant Relationship Specialty Start Date End Date Tiffanie Mcgovern NP [address] [address] PCP - General 07/11/23 documented as of this encounter
--- OUTSIDE RECORDS SUMMARY | 2023-08-11 20:26 | XMS_ITS | Encounter Summary ---
Author Organization [place] Address [address] [place] [address] Care Team Providers Care Roofing Superintendent Name Role Phone Tiffanie Mcgovern NP Primary Care Provider Reason for Visit * Reason Comments Chest Pain Encounter Details Date Type Department Care Team (Late st Contact Info) Description 07/11/2023 9:12 AM CDT - 07/11/2023 1:16 PM CDT Emergency [facility] Emergency Dept [address] [place] [address] Amara Bliss MD [facility] [address] [place] [address] Chest pain, unspecified type; Upper abdominal pain; [...] directed by your provider today. Before using [id number] medications, ask your provider and make sure [...] Care Everywhere. * Pulmonary Nodules: General Info (Korean) * Chest Pain (Korean) documented in this encounter Medications at Time [...] Migraine w/ aura HLD MDD Prinzmetal angina [place] Medications Robaxin Relafen Zocor Zanaflex Desyrel Verelan [...] 12 months. ODIN FELICIANO MD SYSTEM ID: [id number] Results per radiology EKG ECG taken at [...] 12 months. ODIN FELICIANO MD SYSTEM ID: [id number] Narrative 07/11/2023 11:[address] AORTIC [...] 12 months. ODIN FELICIANO MD SYSTEM ID: [id number] Amara Bliss MD [facility] ORDERABLE S * Extra Red Top Tube (07/11/2023 9:27 AM CDT) Pathologist [facility] Hold Specimen [facility] 07/11/2023 11:01 AM CDT LABORATORY Blood VENOUS LINE / Unknown Venipuncture / Unknown 07/11/2023 9:27 AM CDT 07/11/2023 9:59 AM CDT Amara Bliss MD LAB - BLOOD RUBEN WARD [place] Organization Address City/State/ZIP Co de Phone Number [facility] Acute Care Lab [address] Lab (1st floor, no room number) [place] [address] * BNP (07/11/2023 9:27 AM CDT) [facility] N terminal Pro BNP Inpatient 152 [...] Bliss MD LAB - BLOOD RUBEN WARD [place] Organization Address City/State/ZIP Co de Phone Number LABORATORY [facility] Acute Care Lab [address] Lab (1st floor, no room number) [place] [address] * D dimer quantitative (07/11/2023 9:27 AM CDT) [facility] D-Dimer Quantitative 0.44 0.00 - [...] out pulmonary embolism: The ADJUST-PE Study. LIONEL 2014;311:6201-4868.; HJ Tatiana et al. Diagnostic accuracy of conventional or age adjusted D-dimer cutoff values in older patients with suspected venous thromboembolism. Systemic review and meta-analysis. BMJ 2013:346:f2492. Amara Bliss MD LAB - BLOOD RUBEN WARD [facility] Care Lab [address] [place] Lab (1st floor, no room number) [place] [phone] [place] [address] * Extra Blue Top Tube (07/11/2023 9:27 AM CDT) [facility] Hold Specimen [facility] 07/11/2023 10:46 AM CDT LABORATORY Blood VENOUS LINE / Unknown Venipuncture / Unknown 07/11/2023 9:27 AM CDT 07/11/2023 9:34 AM CDT Amara Bliss MD LAB - BLOOD RUBEN WARD [facility] Care Lab [address] Lab (1st floor, no room number) [address] * CBC with platelets and differential (07/11/2023 9:27 AM CDT) [facility] WBC Count 5.2 4.0 - 11.0 10e3/uL [...] MD LAB - BLOOD RUBEN WARD LABORATORY [facility] Care Lab [address] Lab (1st floor, no room number) [place] [address] * Troponin T, High Sensitivity (07/11/2023 9:27 AM CDT) [facility] Troponin T, High Sensitivity <6 [...] MD LAB - BLOOD RUBEN WARD LABORATORY [facility] Acute Care Lab [address] Lab (1st floor, no room number) [place] [phone] * Lipase (07/11/2023 9:27 AM CDT) Lipase 44 13 - 60 U/L 07/11/2023 9:55 AM CDT RH LABORATORY Blood VENOUS LINE / Unknown Venipuncture / Unknown 07/11/2023 9:27 AM CDT 07/11/2023 9:34 AM CDT Amara Bliss MD LAB - BLOOD RUBEN WARD LABORATORY [facility] Acute Care Lab [address] Lab (1st floor, no room number) [place] [phone] * (ABNORMAL) Comprehensive metabolic panel (07/11/2023 [...] Bliss MD LAB - BLOOD RUBEN WARD [place] Organization Address City/State/ZIP Co de Phone Number RH LABORATORY [facility] Acute Care Lab [address] [facility] Lab (1st floor, no room number) [place] [address], [facility] * EKG 12-lead, tracing only (07/11/2023 9:01 AM CDT) Systolic Blood Pressure mmHg RADIOLOGY RESULTS Diastolic Blood Pressure mmHg RADIOLOGY RESULTS Ventricular Rate 60 BPM RAD IOLOGY RESULTS Atrial Rate 60 BPM RADIOLOG Y RESULTS [place] Interval 162 ms RADIOLOG Y RESULTS QRS Duration 90 ms RADIOLO GY RESULTS QT 454 ms RADIOLOGY RESULTS QTc 454 ms RADIOLOGY RESULTS P [place] 70 degrees RADIOLOGY RESULTS R AXIS 9 degrees RADIOLOGY RESULTS T [place] 44 degrees RADIOLOGY RESULTS Interpretation ECG Sinus rhythm Cannot rule out Anterior infarct , age undetermined Abnormal ECG No previous ECGs available Unconfirmed report - interpretation of this ECG is computer generated - see medical record for final interpretation Confirmed by - EMERGENCY ROOM, PHYSICIAN ([id number]), pictures editor AL ROBERTS ([id number]) on 07/11/2023 9:18:08 AM RADIOLOGY RESULTS 07/11/2023 [...] 159/94) documented in this encounter Care Teams Roofing Superintendent Relationship Specialty Start Date End Date Tiffanie Mcgovern NP [address] [address] PCP - General 07/11/23 documented as of this encounter
--- OUTSIDE RECORDS SUMMARY | 2023-08-11 20:27 | XMS_ITS | Encounter Summary ---
Author Organization [facility] er Address [address] [place] [address] Care Team Providers Care Epic Cadence Analyst Name Role Phone Tiffanie Mcgovern APRN, BUILD TECHNICIAN Primary Care Provi rajni Reason for Visit * Reason Comments Med Refill Encounter Details Date Type Department Care Team (Late st Contact Info) Description 12/28/2019 Refill [facility] [address] [place] [address] Valerie Major MD [address] [place] [phone] Edema, unspecified type Social History Tobacco Use [...] Rule Out 02/18/2020 02/18/2020 02/18/2020 4:41 PM CARTON LINER COVID-19 Rule Out 02/27/2021 02/27/2021 02/27/2021 10:40 AM CARTON LINER COVID-19 Confirmed 02/27/2021 02/27/2021 2 8:17 PM CDT documented as of this encounter Care Teams Epic Cadence Analyst Relationship Specialty Start Date End Date Tiffanie Mcgovern, BLOCK INSPECTOR, BUILD TECHNICIAN [address] [place] [address] PCP - General Family Medicine 02/27/21 documented as of this encounter
--- OUTSIDE RECORDS SUMMARY | 2023-08-11 20:27 | XMS_ITS | Clinical Summary ---
Author Organization [facility] er Address [address] [place] [address] Care Team Providers Care Payment Manager Name Role Phone Tiffanie Mcgovern APRN, INFORMATION LEAD Primary Care Provi rajni Allergies Active Allergy [...] tablet 2 12/30/2022 Active Sodium Chloride-Sodium Bicarb ([place] Saline Nasal Neti Rinse) 1.57 g packIndications:Nasal [...] therapy and states her daughter is a staff trainer. Also trying to lose weight and [...] week 12/30/2022 How often do you attend [facility] or christian services? 1 to 4 times per year 12/30/2022 Do you belong to any clubs o r organizations such as buddhist groups, unions, fraternal or athletic groups, or [...] Date Recorded PHQ-9 Total Score 4 12/30/2022 [facility] - Occupational [...] place to sleep or slept in a snf (including now)? No 12/30/2022 Sex and Gender [...] Diagnosis Comments COLOGUARD Routine 05/11/2020 6:30 AM SALES CLERK SUPERVISOR Well adult exam from Last 3 Months or Most Recently Relevant to Health Maintenance Results * Cologuard (05/11/2020 6:30 AM SALES CLERK SUPERVISOR) Cologuard result Negative Not Applicable [employer] Comment: A negative result indicates a low [...] Gaona et al, N Engl J Med 2014;370(14):4738-7010) The normal value (reference range) for this assay is negative. COLOGUARD RE-SCREENING RECOMMENDATION: Periodic routine colorectal cancer screening is an important part of preventive healthcare for asymptomatic persons at average risk for colorectal cancer. Following a negative Cologuard result, the [place] Cancer Society and U.S. Multi-Society Task Force screening guidelines recommend a Cologuard re-screening interval of 3 years. References: [place] Cancer Society (ACS). Colorectal cancer prevention and early detection. [place], [place]: [place] Cancer Society; [updated 2015Jul 01]. https://www.cancer.org/cancer/zgcis-tdxxxh-hcsqkw/tlbtibwkf-czbqgxbqz-rjgaorx/ac s-rec ommendations.html. Accessed November 07, 2017; Jake DK, Clarissa CR, Sung GutierrezK, Colorectal Cancer Screening: Recommendations for Physicians and Patients from the U.S. Multi-Society Task Force on Colorectal Cancer Screening, Am J Gastroenterology 2017; 112:2813-8673. TEST TYPE: Composite algorithmic analysis of stool [...] interval of every 3 years by the [place] Cancer Society and U.S. Multi-Society Task Force. [...] can be accessed at the following location: www.ImpressPages/results. Additional description of the Cologuard test process, warnings and precautions can be found at www.cologuardtest.com. Rx only. CRESCEL, [address] [place], [address], , Clinical Laboratory Psychological Science Professor, BRIANNA HANDY, , CLIA NO: [id number] Stool 05/11/2020 6:30 AM SALES CLERK SUPERVISOR 05/12/2020 12:30 PM SALES CLERK SUPERVISOR Catalina Pennington APRN, INFORMATION LEAD LAB BODY FLUIDS AN D STOOLS ORDERABLES [employer] [address] [place] [address], from Last 3 Months or Most Recently Relevant to Health Maintenance Care Teams Payment Manager Relationship Specialty Start Date End Date Tiffanie Mcgovern APRN, INFORMATION LEAD [address] [facility] [place] [address] PCP - General Family Medicine 02/27/21
--- OUTSIDE RECORDS SUMMARY | 2023-08-11 20:27 | XMS_ITS | Encounter Summary ---
Author Organization [facility] er Address [address] [place] [address] Care Team Providers Care Chemical Engraver Name Role Phone Mynor Mcgovern APRN, WAFER POLISHING WORKER Primary Care Provi rajni Reason for Visit * Reason Comments Med Refill Encounter Details Date Type Department Care Team (Late st Contact Info) Description 08/20/2021 Refill [place] [address] [address] Roopa Lopez MD [address] [facility] [address] [place] [address] GUSTAVO (generalized anxiety disorder) Social History Tobacco [...] disorder documented in this encounter Care Teams Chemical Engraver Relationship Specialty Start Date End Date Mynor Mcgovern APRN, WAFER POLISHING WORKER [address] [place] [address] PCP - General Family Medicine 02/27/21 documented as of this encounter
--- OUTSIDE RECORDS SUMMARY | 2023-08-11 20:27 | XMS_ITS | Encounter Summary ---
Author Organization [facility] er Address [address] [place] [address] Care Team Providers Care Stripper And Printer Name Role Phone Tiffanie Mcgovern APRN, MOTEL MAID Primary Care Provi rajni Encounter Details Date Type Department Care Team (Late st Contact Info) Description 12/06/2019 Telephone [place] [address] [place] [address] Roopa Lopez MD 1705 [facility] 20 [place] [address] Social History Tobacco Use Types Packs/Day Years [...] Rule Out 02/18/2020 02/18/2020 02/18/2020 4:41 PM FIRST COAT SANDER COVID-19 Rule Out 02/27/2021 02/27/2021 02/27/2021 10:40 AM FIRST COAT SANDER COVID-19 Confirmed 02/27/2021 02/27/2021 2 8:17 PM CDT documented as of this encounter Care Teams Stripper And Printer Relationship Specialty Start Date End Date Tiffanie Mcgovern, RATINGS ANALYST, MOTEL MAID [address] [facility] [place] [address] PCP - General Family Medicine 02/27/21 documented as of this encounter
--- OUTSIDE RECORDS SUMMARY | 2023-08-11 20:27 | XMS_ITS | Encounter Summary ---
Author Organization [facility] er Address [address] [place] [address] Care Team Providers Care Coil Connector Repairer Name Role Phone Tiffanie Mcgovern DISPOSAL OPERATOR, HIDE SHAKER Primary Care Provi rajni Reason for Visit * Reason Comments Med Refill Encounter Details Date Type Department Care Team (Late st Contact Info) Description 09/02/2018 Refill Rogelio Guerrero [address] [place] [address] Tiffanie Mcgovern, DISPOSAL OPERATOR, HIDE SHAKER [address] [place] [address] Hyperlipidemia, unspecified hyperlipidemia type (Primary Dx) Social [...] Rule Out 02/18/2020 02/18/2020 02/18/2020 4:41 PM COMMERCIAL SUBCONTRACTOR COVID-19 Rule Out 02/27/2021 02/27/2021 02/27/2021 10:40 AM COMMERCIAL SUBCONTRACTOR COVID-19 Confirmed 02/27/2021 02/27/2021 2 8:17 PM CDT documented as of this encounter Care Teams Coil Connector Repairer Relationship Specialty Start Date End Date Tiffanie Mcgovern APRN, KYLE [address] [facility] [place] [address] PCP - General Family Medicine 02/27/21 documented as of this encounter
--- OUTSIDE RECORDS SUMMARY | 2023-08-11 20:27 | XMS_ITS | Encounter Summary ---
Author Organization [facility] er Address [address] [place] [address] Care Team Providers Care Delivery Room Clerk Name Role Phone Tiffanie Mcgovern APRN, WIRE WEAVER CLOTH Primary Care Provi rajni Reason for Visit * Reason Comments Med Refill Encounter Details Date Type Department Care Team (Late st Contact Info) Description 11/22/2021 Refill [place] [address] [address] Roopa Lopez MD 1705 [facility] 20 [place] [address] Postablative hypothyroidism Social History Tobacco Use Types [...] her refill requests to Dennis Mcgovern in [place]. Pt agreed. * Telephone Encounter - Alyce Shah - 11/26/2021 9:01 AM CDT Noted. * Telephone Encounter - Doris Garcia RN - 11/26/2021 8:34 AM CDT Left message on secured line for patient to contact PCP in [place] for refills and to advise pharmacy of [...] hypothyroidism documented in this encounter Care Teams Delivery Room Clerk Relationship Specialty Start Date End Date Tiffanie Mcgovern, HOSPITAL MONITOR, WIRE WEAVER CLOTH 100 [place] [address] PCP - General Family Medicine 02/27/21 documented as of this encounter
== END 2023-08-08 15:34 | disposition home or self-care (01) ==
LOC: NFLDREF 08-11 20:24
PROVIDERS: PCP Nurse Practitioner Family; Referring Provider Nurse Practitioner Family; Visit Provider Nurse Practitioner Family
DX: M79.10 Myalgia, unspecified site (principal); R52 Pain, unspecified
CPT/HCPCS: 86618

== ENCOUNTER 2023-08-21 08:35 | Outpatient (CLI) | payer MEDICAID, SELFPAY ==
--- OUTSIDE RECORDS SUMMARY | 2023-08-21 08:40 | XMS_ITS | Clinical Summary ---
Author Organization [place] Address [address] [place] [address] Care Team Providers Care Coffee Brewer Name Role Phone Tiffanie Mcgovern NP Primary Care Provider [phone] Allergies No known active allergies Medications Medication [...] CDT - 07/11/2023 1:16 PM CDT Emergency [facility] Emergency Dept [address] [place] [address] Amara Bliss MD Chest pain, unspecified type; [...] 12 months. ODIN FELICIANO MD SYSTEM ID: [id number] Narrative 07/11/2023 11:[address] AORTIC [...] 12 months. ODIN FELICIANO MD SYSTEM ID: [id number] Amara Bliss MD IM CT ORDERABLE S * Extra Red Top Tube (07/11/2023 9:27 AM CDT) Hold Specimen [facility] 07/11/2023 11:01 AM CDT LABORATORY Blood VENOUS LINE / Unknown Venipuncture / Unknown 07/11/2023 9:27 AM CDT 07/11/2023 9:59 AM CDT Amara Bliss MD LAB - BLOOD RUBEN WARD [facility] Organization Address City/State/ZIP Co de Phone Number [facility] Acute Care Lab [address] [facility] Lab (1st floor, no room number) [place] [address], [facility] * Extra Blue Top Tube (07/11/2023 9:27 AM CDT) Hold Specimen [facility] 07/11/2023 10:46 AM CDT RH LABORATORY Blood VENOUS LINE / Unknown Venipuncture / Unknown 07/11/2023 9:27 AM CDT 07/11/2023 9:34 AM CDT Amara Bliss MD LAB - BLOOD RUBEN WARD [facility] Organization Address City/State/ZIP Co de Phone Number RH LABORATORY [facility] Acute Care Lab [address] Lab (1st floor, no room number) [place] [address] * CBC with platelets and differential (07/11/2023 [...] CDT Amara Bliss MD LAB - BLOOD [facility] Organization Address City/State/ZIP Co de Phone Number LABORATORY [facility] Lab [address] [facility] Lab (1st floor, no room number) [place] [address] * Troponin T, High Sensitivity (07/11/2023 9:27 AM CDT) [facility] Troponin T, High Sensitivity <6 <=14 ng/L [...] - BLOOD RUBEN WARD Performing Organization Address City/[facility]/ZIP Co de Phone Number [facility] Care Lab [address] Lab (1st floor, no room number) [place] [address] * BNP (07/11/2023 9:27 AM CDT) [facility] N terminal Pro BNP Inpatient 152 0 [...] Bliss MD LAB - BLOOD RUBEN WARD [facility] Acute Care Lab [address] Lab (1st floor, no room number) [place] [address], [facility] * Lipase (07/11/2023 9:27 AM CDT) Lipase 44 13 - 60 U/L 07/11/2023 9:55 AM CDT RH LABORATORY Blood VENOUS LINE / Unknown Venipuncture / Unknown 07/11/2023 9:27 AM CDT 07/11/2023 9:34 AM CDT Amara Bliss MD LAB - BLOOD RUBEN WARD [facility] LABORATORY [facility] [address] Lab (1st floor, no room number) [place] [address] * D dimer quantitative (07/11/2023 9:27 AM [...] out pulmonary embolism: The ADJUST-PE Study. LIONEL 2014;311:1498-2559.; HJ Tatiana et al. Diagnostic accuracy of conventional or age adjusted D-dimer cutoff values in older patients with suspected venous thromboembolism. Systemic review and meta-analysis. BMJ 2013:346:f2492. Amara Bliss MD LAB - BLOOD RUBEN WARD [facility] LABORATORY [facility] [address] Lab (1st floor, no room number) [place] [address] * (ABNORMAL) Comprehensive metabolic panel (07/11/2023 9:27 AM CDT) [facility] Sodium 137 135 - 145 mmol/L 07/11/2023 [...] LAB - BLOOD RUBEN WARD [facility] LABORATORY [facility] [address] Lab (1st floor, no room number) [place] [address], [facility] * EKG 12-lead, tracing only (07/11/2023 9:01 AM CDT) Systolic Blood Pressure mmHg RADIOLOGY RESULTS Diastolic Blood Pressure mmHg RADIOLOGY RESULTS Ventricular Rate 60 BPM RAD IOLOGY RESULTS Atrial Rate 60 BPM RADIOLOG Y RESULTS [place] Interval 162 ms RADIOLOG Y RESULTS QRS Duration 90 ms RADIOLO GY RESULTS QT 454 ms RADIOLOGY RESULTS QTc 454 ms RADIOLOGY RESULTS P Posen 70 degrees RADIOLOGY RESULTS R AXIS 9 degrees RADIOLOGY RESULTS T Posen 44 degrees RADIOLOGY RESULTS Interpretation ECG Sinus rhythm Cannot rule out Anterior infarct , age undetermined Abnormal ECG No previous ECGs available Unconfirmed report - interpretation of this ECG is computer generated - see medical record for final interpretation Confirmed by - EMERGENCY ROOM, PHYSICIAN ([id number]), social media editor AL ROBERTS ([id number]) on 07/11/2023 9:18:08 AM RADIOLOGY RESULTS 07/11/2023 [...] Recently Relevant to Health Maintenance Care Teams Coffee Brewer Relationship Specialty Start Date End Date Tiffanie Mcgovern NP [address] [address] PCP - General 07/11/23
--- OUTSIDE RECORDS SUMMARY | 2023-08-21 08:41 | XMS_ITS | Encounter Summary ---
Author Organization [facility] er Address [address] [place] [address] Care Team Providers Care Quantitative Analyst Developer Name Role Phone Mynor Mcgovern APRN, ASSISTANT ATHLETIC TRAINER Primary Care Provi rajni Reason for Visit * Reason Comments Med Refill Encounter Details Date Type Department Care Team (Late st Contact Info) Description 08/20/2021 Refill [place] [address] [address] Roopa Lopez MD 1705 [facility] 20 [place] [address] GUSTAVO (generalized anxiety disorder) Social History Tobacco [...] disorder documented in this encounter Care Teams Quantitative Analyst Developer Relationship Specialty Start Date End Date Mynor Mcgovern APRN, ASSISTANT ATHLETIC TRAINER 100 [place] [address] PCP - General Family Medicine 02/27/21 documented as of this encounter
--- OUTSIDE RECORDS SUMMARY | 2023-08-21 08:41 | XMS_ITS | Encounter Summary ---
Author Organization [facility] er Address [address] [place] [address] Care Team Providers Care Jewelry Repairer Name Role Phone Tiffanie Mcgovern APRN, FIELD CANE SCALE CLERK Primary Care Provi rajni Reason for Visit * Reason Comments Med Refill Encounter Details Date Type Department Care Team (Late st Contact Info) Description 12/28/2019 Refill [facility] [address] [place] [address] Valerie Major MD [address] [place] [phone] Edema, unspecified type Social History Tobacco Use [...] Rule Out 02/18/2020 02/18/2020 02/18/2020 4:41 PM CROWN POUNCER COVID-19 Rule Out 02/27/2021 02/27/2021 02/27/2021 10:40 AM CROWN POUNCER COVID-19 Confirmed 02/27/2021 02/27/2021 2 8:17 PM CDT documented as of this encounter Care Teams Jewelry Repairer Relationship Specialty Start Date End Date Tiffanie Mcgovern, KNIFE SETTER GRINDER MACHINE, FIELD CANE SCALE CLERK 100 [place] [address] PCP - General Family Medicine 02/27/21 documented as of this encounter
--- OUTSIDE RECORDS SUMMARY | 2023-08-21 08:41 | XMS_ITS | Encounter Summary ---
Author Organization [facility] er Address [address] [place] [address] Care Team Providers Care Lubrication Worker Name Role Phone Tiffanie Mcgovern RESOURCE DIRECTOR, CDL TRUCK DRIVER Primary Care Provi rajni Reason for Visit * Reason Comments Med Refill Encounter Details Date Type Department Care Team (Late st Contact Info) Description 09/02/2018 Refill Rogelio Guerrero [address] [place] [address] Tiffanie Mcgovern, RESOURCE DIRECTOR, CDL TRUCK DRIVER [address] [place] [address] Hyperlipidemia, unspecified hyperlipidemia type (Primary Dx) Social [...] Rule Out 02/18/2020 02/18/2020 02/18/2020 4:41 PM ELECTRIC SCREW DRIVER OPERATOR COVID-19 Rule Out 02/27/2021 02/27/2021 02/27/2021 10:40 AM ELECTRIC SCREW DRIVER OPERATOR COVID-19 Confirmed 02/27/2021 02/27/2021 2 8:17 PM CDT documented as of this encounter Care Teams Lubrication Worker Relationship Specialty Start Date End Date Tiffanie Mcgovern APRN, KYLE [address] [facility] [address] PCP - General Family Medicine 02/27/21 documented as of this encounter
--- OUTSIDE RECORDS SUMMARY | 2023-08-21 08:41 | XMS_ITS | Encounter Summary ---
Author Organization [facility] er Address [address] [place] [address] Care Team Providers Care Knockdown Man Name Role Phone Tiffanie Mcgovern APRN, DANCING INSTRUCTOR Primary Care Provi rajni Reason for Visit * Reason Comments Med Refill Encounter Details Date Type Department Care Team (Late st Contact Info) Description 11/22/2021 Refill [place] [address] [address] Roopa Lopez MD 1705 [facility] 20 [place] [address] Postablative hypothyroidism Social History Tobacco Use Types [...] her refill requests to Dennis Mcgovern in [place]. Pt agreed. * Telephone Encounter - Alyce Shah - 11/26/2021 9:01 AM CDT Noted. * Telephone Encounter - Doris Garcia RN - 11/26/2021 8:34 AM CDT Left message on secured line for patient to contact PCP in [place] for refills and to advise pharmacy of [...] hypothyroidism documented in this encounter Care Teams Knockdown Man Relationship Specialty Start Date End Date Tiffanie Mcgovern, TAX MANAGER PUBLIC, DANCING INSTRUCTOR 100 [place] [address] PCP - General Family Medicine 02/27/21 documented as of this encounter
--- OUTSIDE RECORDS SUMMARY | 2023-08-21 08:41 | XMS_ITS | Clinical Summary ---
Author Organization [facility] er Address [address] [place] [address] Care Team Providers Care Vp & General Counsel Name Role Phone Tiffanie Mcgovern APRN, ENROLLMENT COORDINATOR Primary Care Provi rajni Allergies Active Allergy [...] tablet 2 12/30/2022 Active Sodium Chloride-Sodium Bicarb ([place] Saline Nasal Neti Rinse) 1.57 g packIndications:Nasal [...] therapy and states her daughter is a education trainer. Also trying to lose weight and [...] week 12/30/2022 How often do you attend [facility] or [facility] services? 1 to 4 times per year 12/30/2022 Do you belong to any clubs o r organizations such as restorationist groups, unions, fraternal [...] Date Recorded PHQ-9 Total Score 4 12/30/2022 [facility] - Occupational Stress [...] place to sleep or slept in a intermediate (including now)? No 12/30/2022 Sex and Gender [...] Diagnosis Comments COLOGUARD Routine 05/11/2020 6:30 AM CANNON PINION ADJUSTER Well adult exam from Last 3 Months or Most Recently Relevant to Health Maintenance Results * Cologuard (05/11/2020 6:30 AM CANNON PINION ADJUSTER) Cologuard result Negative Not Applicable [employer] Comment: A negative result indicates a low [...] Gaona et al, N Engl J Med 2014;370(14):6621-3411) The normal value (reference range) for this assay is negative. COLOGUARD RE-SCREENING RECOMMENDATION: Periodic routine colorectal cancer screening is an important part of preventive healthcare for asymptomatic persons at average risk for colorectal cancer. Following a negative Cologuard result, the [place] Cancer Society and U.S. Multi-Society Task Force screening guidelines recommend a Cologuard re-screening interval of 3 years. References: [place] Cancer Society (ACS). Colorectal cancer prevention and early detection. [place], [place]: [place] Cancer Society; [updated 2015Jul 01]. https://www.cancer.org/cancer/vxotc-aczvik-fmfjmf/uhohnvwns-puhqrmfsd-ientpnh/ac s-rec ommendations.html. Accessed November 07, 2017; Jake DK, Clarissa CR, Sung GutierrezK, Colorectal Cancer Screening: Recommendations for Physicians and Patients from the U.S. Multi-Society Task Force on Colorectal Cancer Screening, Am J Gastroenterology 2017; 112:2630-7437. TEST TYPE: Composite algorithmic analysis of stool [...] every 3 years by the [place] Cancer Society and U.S. Multi-Society Task Force. [...] can be accessed at the following location: www.[employer]/results. Additional description of the Cologuard test process, warnings and precautions can be found at www.cologuardtest.com. Rx only. [employer], [address] [place], [address], , Clinical Laboratory Credit Professional, BRIANNA HANDY, , CLIA NO: [id number] Stool 05/11/2020 6:30 AM CANNON PINION ADJUSTER 05/12/2020 12:30 PM CANNON PINION ADJUSTER Catalina Pennington APRN, ENROLLMENT COORDINATOR LAB BODY FLUIDS AN D STOOLS ORDERABLES [employer] [address] [place] [address], from Last 3 Months or Most Recently Relevant to Health Maintenance Care Teams Vp & General Counsel Relationship Specialty Start Date End Date Tiffanie Mcgovern APRN, ENROLLMENT COORDINATOR 100 [facility] [place] [address] PCP - General Family Medicine 02/27/21
--- OUTSIDE RECORDS SUMMARY | 2023-08-21 08:41 | XMS_ITS | Encounter Summary ---
Author Organization [facility] er Address [address] [place] [address] Care Team Providers Care Diesel Engineer Name Role Phone Tiffanie Mcgovern APRN, SILK SPOTTER Primary Care Provi rajni Encounter Details Date Type Department Care Team (Late st Contact Info) Description 12/06/2019 Telephone [place] [address] [place] [address] Roopa Lopez MD 1705 [facility] 20 [place] [address] Social History Tobacco Use Types Packs/Day Years [...] Rule Out 02/18/2020 02/18/2020 02/18/2020 4:41 PM ICER MACHINE OPERATOR COVID-19 Rule Out 02/27/2021 02/27/2021 02/27/2021 10:40 AM ICER MACHINE OPERATOR COVID-19 Confirmed 02/27/2021 02/27/2021 2 8:17 PM CDT documented as of this encounter Care Teams Diesel Engineer Relationship Specialty Start Date End Date Tiffanie Mcgovern, COMPOSITION ROLL MAKER AND CUTTER, SILK SPOTTER 100 [place] [address] PCP - General Family Medicine 02/27/21 documented as of this encounter
--- OUTSIDE RECORDS SUMMARY | 2023-08-21 08:41 | XMS_ITS | Encounter Summary ---
Author Organization [place] Address [address] [place] [address] Care Team Providers Care Vice President Integrated Name Role Phone Frw, None Primary Care Provider Tiffanie Crow NP Primary Care Provider Encounter Details Date Type Department Care Team (Late st Contact Info) Description 06/07/2004 [facility] in [place] FILM EDITOR SUPERVISOR [address] [place] [phone] Butch Mitchell MD Social History Tobacco Use [...] on filedocumented in this encounter Care Teams Vice President Integrated Relationship Specialty Start Date End Date Frw, None PCP - General 04/02/00 11/07/16 Tiffanie Mcgovern NP [address] [address] PCP - General 07/11/23 documented as of this encounter
--- OUTSIDE RECORDS SUMMARY | 2023-08-21 08:41 | XMS_ITS | Encounter Summary ---
Author Organization [place] Address [address] [place] [address] Care Team Providers Care Curb Machine Operator Name Role Phone Tiffanie Mcgovern NP Primary [...] on filedocumented in this encounter Care Teams Curb Machine Operator Relationship Specialty Start Date End Date Tiffanie Mcgovern NP [address] [address] PCP - General 07/11/23 documented as of this encounter
--- NOTE | 2023-08-21 08:45 | CRLHL7_ITS ---
For Patients: As a result of the Century Cures Act, medical imaging exams and procedure reports are released immediately into your electronic medical record. You may view this report before your referring provider. If you have questions, please contact your health care provider. BILATERAL DIGITAL SCREENING MAMMOGRAM WITH COMPUTER-AIDED DETECTION AND TOMOSYNTHESIS CLINICAL HISTORY: Routine screening exam. COMPARISON: 05/29/2021, 11/08/2019. TECHNIQUE: Digital mammogram in CC and MLO projections including computer-aided detection (CAD). Tomosynthesis was used in this interpretation. BREAST COMPOSITION: There are areas of scattered fibroglandular density. FINDINGS: RIGHT Breast: No suspicious findings. LEFT Breast: Focal asymmetric density upper outer quadrant 7 cm from the nipple. IMPRESSION: LEFT breast asymmetry/mass. RECOMMENDATIONS: Additional mammographic views of the LEFT breast including 3D spot compression CC/MLO. LEFT breast ultrasound may also be required. BI-RADS Category 0: Incomplete: Need Additional Imaging Evaluation and/or Prior Mammograms for Comparison The [facility] will contact the patient for follow-up. A lay language report of this examination will be provided to the patient. Dictated by Levi Cameron MD @ 08/25/2023 10:59:24 AM /Dictated by: Levi Cameron MD @ 08/25/2023 10:59:00 AM (Electronically Signed)
== END 2023-08-21 08:36 | disposition home or self-care (01) ==
LOC: MAMMO 08:38
PROVIDERS: PCP Nurse Practitioner Family; Visit Provider Nurse Practitioner Family
DX: Z12.31 Encounter for screening mammogram for malignant neoplasm of breast (principal); N63.20 Unspecified lump in the left breast, unspecified quadrant
CPT/HCPCS: 77063; 77067

== ENCOUNTER 2023-08-29 07:30 | Outpatient (CLI) | payer MEDICAID, SELFPAY ==
--- OUTSIDE RECORDS SUMMARY | 2023-08-29 07:32 | XMS_ITS | Encounter Summary ---
Author Organization [place] Address [address] [place] [address] Care Team Providers Care Bed Rubber Name Role Phone Tiffanie Mcgovern NP Primary [...] on filedocumented in this encounter Care Teams Bed Rubber Relationship Specialty Start Date End Date Tiffanie Mcgovern NP [address] [address] PCP - General 07/11/23 documented as of this encounter
--- OUTSIDE RECORDS SUMMARY | 2023-08-29 07:32 | XMS_ITS | Referral Summary ---
Author Organization [place] Address [address] [place] [address] Care Team Providers Care Hydro Operator Name Role Phone Tiffanie Mcgovern NP Primary Care Provider Encounters Date Type Department Care Team Description 07/11/2023 Travel 07/11/2023 9:12 AM CDT - 07/11/2023 1:16 PM CDT Emergency [facility] Emergency Dept [address] [place] [phone] Amara Bliss MD Chest pain, unspecified type; [...] 12 months. ODIN FELICIANO MD SYSTEM ID: ??[id number] Narrative 07/11/2023 11:[address] AORTIC [...] 12 months. ODIN FELICIANO MD SYSTEM ID: [id number] Amara Bliss MD [facility] ORDERABLE S * Extra Red Top Tube (07/11/2023 9:27 AM CDT) Pathologist [facility] Hold Specimen [facility] 07/11/2023 11:01 AM CDT LABORATORY Blood VENOUS LINE / Unknown Venipuncture / Unknown 07/11/2023 9:27 AM CDT 07/11/2023 9:59 AM CDT Amara Bliss MD LAB - BLOOD RUBEN WARD [facility] Organization Address City/State/ZIP Co de Phone Number [facility] Acute [facility] Lab [address] Lab (1st floor, no room number) [place] [phone] * Extra Blue Top Tube (07/11/2023 9:27 AM CDT) Hold Specimen [facility] 07/11/2023 10:46 AM CDT RH LABORATORY Blood VENOUS LINE / Unknown Venipuncture / Unknown 07/11/2023 9:27 AM CDT 07/11/2023 9:34 AM CDT Amara Bliss MD LAB - BLOOD RUBEN WARD RH LABORATORY [facility] Acute [facility] Emergency Department Lab [address] [employer] Lab (1st floor, no room number) [place] [phone] [place] [address] * CBC with platelets and differential (07/11/2023 9:27 AM CDT) [facility] Signature WBC Count 5.2 4.0 - 11.0 [...] Amara Bliss MD LAB - BLOOD ORDE [facility] Organization Address City/State/ZIP Co de Phone Number RH LABORATORY [facility] Acute Care Lab [address] Lab (1st floor, no room number) [place] [address], [facility] * Troponin T, High Sensitivity (07/11/2023 9:27 AM CDT) [facility] Troponin T, High Sensitivity <6 <=14 ng/L [...] Bliss MD LAB - BLOOD RUBEN WARD [facility] [address] Lab (1st floor, no room number) [place] [address] * BNP (07/11/2023 9:27 AM CDT) [facility] N terminal Pro BNP Inpatient 152 [id number] [...] - BLOOD RUBEN WARD Performing Organization Address City/[facility]/ZIP Co de Phone Number LABORATORY [facility] Acute Care Lab [address] Lab (1st floor, no room number) [place] [phone] [place] [address] * Lipase (07/11/2023 9:27 AM CDT) Lipase 44 13 - 60 U/L 07/11/2023 9:55 AM CDT LABORATORY Blood VENOUS LINE / Unknown Venipuncture / Unknown 07/11/2023 9:27 AM CDT 07/11/2023 9:34 AM CDT Amara Bliss MD LAB - BLOOD TOLUCAJared [facility] Performing Organization Address [facility]/ZIP Co de Phone Number LABORATORY [facility] Acute Care Lab [address] Lab (1st floor, no room number) [place] [phone] * D dimer quantitative (07/11/2023 9:27 [...] out pulmonary embolism: The ADJUST-PE Study. LIONEL 2014;311:5525-2735.; HJ Tatiana et al. Diagnostic accuracy of conventional or age adjusted D-dimer cutoff values in older patients with suspected venous thromboembolism. Systemic review and meta-analysis. BMJ 2013:346:f2492. Amara Bliss MD LAB - BLOOD RUBEN WARD RH LABORATORY [facility] Acute Care Lab [address] [facility] Lab (1st floor, no room number) [place] [address] * (ABNORMAL) Comprehensive metabolic panel (07/11/2023 9:27 AM CDT) [facility] Sodium 137 135 - 145 mmol/L 07/11/2023 [...] Bliss MD LAB - BLOOD RUBEN WARD [facility] Organization Address City/State/ZIP Co de Phone Number RH LABORATORY [facility] Acute Care Lab [address] Lab (1st floor, no room number) [place] [address], [place] * EKG 12-lead, tracing only (07/11/2023 9:01 AM CDT) Systolic Blood Pressure mmHg RADIOLOGY RESULTS Diastolic Blood Pressure mmHg RADIOLOGY RESULTS Ventricular Rate 60 BPM RAD IOLOGY RESULTS Atrial Rate 60 BPM RADIOLOG Y RESULTS [place] Interval 162 ms RADIOLOG Y RESULTS QRS Duration 90 ms RADIOLO GY RESULTS QT 454 ms RADIOLOGY RESULTS QTc 454 ms RADIOLOGY RESULTS P [place] 70 degrees RADIOLOGY RESULTS R AXIS 9 degrees RADIOLOGY RESULTS T [place] 44 degrees RADIOLOGY RESULTS Interpretation ECG Sinus rhythm Cannot rule out Anterior infarct , age undetermined Abnormal ECG No previous ECGs available Unconfirmed report - interpretation of this ECG is computer generated - see medical record for final interpretation Confirmed by - EMERGENCY ROOM, PHYSICIAN ([id number]), film editor AL ROBERTS ([id number]) on 07/11/2023 9:18:08 AM RADIOLOGY RESULTS 07/11/2023 [...] Recently Relevant to Health Maintenance Care Teams Hydro Operator Relationship Specialty Start Date End Date Tiffanie Mcgovern NP [address] [address] PCP - General 07/11/23
--- OUTSIDE RECORDS SUMMARY | 2023-08-29 07:32 | XMS_ITS | Encounter Summary ---
Author Organization [place] Address [address] [place] [address] Care Team Providers Care Fitness Technician Name Role Phone Tiffanie Mcgovern NP Primary Care Provider Reason for Visit * Reason Comments Chest Pain Encounter Details Date Type Department Care Team (Late st Contact Info) Description 07/11/2023 9:12 AM CDT - 07/11/2023 1:16 PM CDT Emergency [facility] Emergency Dept [address] [place] [address] Amara Bliss MD [facility] [address] [place] [address] Chest pain, unspecified type; Upper abdominal pain; [...] directed by your provider today. Before using [id number] medications, ask your provider and make sure [...] Care Everywhere. * Pulmonary Nodules: General Info (Azeri) * Chest Pain (Azeri) documented in this encounter Medications at Time [...] Migraine w/ aura HLD MDD Prinzmetal angina RI Medications Robaxin Relafen Zocor Zanaflex Desyrel Verelan [...] 12 months. ODIN FELICIANO MD SYSTEM ID: [id number] Results per radiology EKG ECG taken at 900, ECG read at 04 Normal sinus rhythm Cannot rule Anterior infract, age undetermined Abnormal ECG Rate 60 bpm. NM interval 162 ms. QRS duration 90 ms. [...] 12 months. ODIN FELICIANO MD SYSTEM ID: ??[id number] Narrative 07/11/2023 11:[address] AORTIC [...] 12 months. ODIN FELICIANO MD SYSTEM ID: [id number] Amara Bliss MD [facility] ORDERABLE S * Extra Red Top Tube (07/11/2023 9:27 AM CDT) Pathologist [facility] Hold Specimen [facility] 07/11/2023 11:01 AM CDT LABORATORY Blood VENOUS LINE / Unknown Venipuncture / Unknown 07/11/2023 9:27 AM CDT 07/11/2023 9:59 AM CDT Amara Bliss MD LAB - BLOOD RUBEN WARD [facility] Organization Address City/State/ZIP Co de Phone Number [facility] Acute Care Lab [address] Lab (1st floor, no room number) [place] [address] * BNP (07/11/2023 9:27 AM CDT) [facility] N terminal Pro BNP Inpatient [...] Bliss MD LAB - BLOOD RUBEN WARD [facility] Organization Address City/State/ZIP Co de Phone Number LABORATORY [facility] Acute Care Lab [address] Lab (1st floor, no room number) [place] [address] * D dimer quantitative (07/11/2023 9:27 AM CDT) [facility] D-Dimer Quantitative 0.44 0.00 - 0.50 ug/mL [...] out pulmonary embolism: The ADJUST-PE Study. LIONEL 2014;311:4773-7259.; HJ Tatiana et al. Diagnostic accuracy of conventional or age adjusted D-dimer cutoff values in older patients with suspected venous thromboembolism. Systemic review and meta-analysis. BMJ 2013:346:f2492. Amara Bliss MD LAB - BLOOD RUBEN WARD [facility] Care Lab [address] [employer] Lab (1st floor, no room number) [place] [address] [place] [address] * Extra Blue Top Tube (07/11/2023 9:27 AM CDT) [facility] Hold Specimen [facility] 07/11/2023 10:46 AM CDT LABORATORY Blood VENOUS LINE / Unknown Venipuncture / Unknown 07/11/2023 9:27 AM CDT 07/11/2023 9:34 AM CDT Amara Bliss MD LAB - BLOOD RUBEN WARD [facility] Care Lab [address] Lab (1st floor, no room number) [address] * CBC with platelets and differential (07/11/2023 9:27 AM CDT) [facility] WBC Count 5.2 4.0 - 11.0 10e3/uL [...] MD LAB - BLOOD RUBEN WARD LABORATORY [facility] Care Lab [address] Lab (1st floor, no room number) [place] [address] * Troponin T, High Sensitivity (07/11/2023 9:27 AM CDT) [facility] Troponin T, High Sensitivity <6 [...] [facility] Acute Care Lab [address] Lab (1st floor, no room number) [place] [phone] * Lipase (07/11/2023 9:27 AM CDT) Lipase 44 13 - 60 U/L 07/11/2023 9:55 AM CDT RH LABORATORY Blood VENOUS LINE / Unknown Venipuncture / Unknown 07/11/2023 9:27 AM CDT 07/11/2023 9:34 AM CDT Amara Bliss MD LAB - BLOOD RUBEN WARD LABORATORY [facility] Acute Care Lab [address] Lab (1st floor, no room number) [place] [phone] * (ABNORMAL) Comprehensive metabolic panel [...] Bliss MD LAB - BLOOD RUBEN WARD [facility] Organization Address City/State/ZIP Co de Phone Number RH LABORATORY [facility] Acute Care Lab [address] [facility] Lab (1st floor, no room number) [place] [address], [facility] * EKG 12-lead, tracing only (07/11/2023 9:01 AM CDT) Systolic Blood Pressure mmHg RADIOLOGY RESULTS Diastolic Blood Pressure mmHg RADIOLOGY RESULTS Ventricular Rate 60 BPM RAD IOLOGY RESULTS Atrial Rate 60 BPM RADIOLOG Y RESULTS NM Interval 162 ms RADIOLOG Y RESULTS QRS Duration 90 ms RADIOLO GY RESULTS QT 454 ms RADIOLOGY RESULTS QTc 454 ms RADIOLOGY RESULTS P [place] 70 degrees RADIOLOGY RESULTS R AXIS 9 degrees RADIOLOGY RESULTS T [place] 44 degrees RADIOLOGY RESULTS Interpretation ECG Sinus rhythm Cannot rule out Anterior infarct , age undetermined Abnormal ECG No previous ECGs available Unconfirmed report - interpretation of this ECG is computer generated - see medical record for final interpretation Confirmed by - EMERGENCY ROOM, PHYSICIAN ([id number]), editorial writer AL ROBERTS ([id number]) on 07/11/2023 9:18:08 AM RADIOLOGY RESULTS 07/11/2023 [...] 159/94) documented in this encounter Care Teams Fitness Technician Relationship Specialty Start Date End Date Tiffanie Mcgovern NP [address] [address] PCP - General 07/11/23 documented as of this encounter
--- OUTSIDE RECORDS SUMMARY | 2023-08-29 07:32 | XMS_ITS | Clinical Summary ---
Author Organization [place] Address [address] [place] [address] Care Team Providers Care Guillotine Trimmer Name Role Phone Tiffanie Mcgovern NP Primary Care Provider [phone] Allergies No known active allergies Medications Medication [...] CDT - 07/11/2023 1:16 PM CDT Emergency [facility] Emergency Dept [address] [place] [address] Amara Bliss MD Chest pain, unspecified type; [...] 12 months. ODIN FELICIANO MD SYSTEM ID: ??[id number] Narrative 07/11/2023 11:[address] AORTIC [...] 12 months. ODIN FELICIANO MD SYSTEM ID: [id number] Amara Bliss MD IM CT ORDERABLE S * Extra Red Top Tube (07/11/2023 9:27 AM CDT) Hold Specimen [facility] 07/11/2023 11:01 AM CDT LABORATORY Blood VENOUS LINE / Unknown Venipuncture / Unknown 07/11/2023 9:27 AM CDT 07/11/2023 9:59 AM CDT Amara Bliss MD LAB - BLOOD RUBEN WARD [facility] Organization Address City/State/ZIP Co de Phone Number [facility] Acute Care Lab [address] [facility] Lab (1st floor, no room number) [place] [address], [facility] * Extra Blue Top Tube (07/11/2023 9:27 AM CDT) Hold Specimen [facility] 07/11/2023 10:46 AM CDT RH LABORATORY Blood VENOUS LINE / Unknown Venipuncture / Unknown 07/11/2023 9:27 AM CDT 07/11/2023 9:34 AM CDT Amara Bliss MD LAB - BLOOD RUBEN WARD [facility] Organization Address City/State/ZIP Co de Phone Number RH LABORATORY [facility] Acute Care Lab [address] Lab (1st floor, no room number) [place] [address] * CBC with platelets and differential (07/11/2023 [...] CDT Amara Bliss MD LAB - BLOOD [facility] Organization Address City/State/ZIP Co de Phone Number LABORATORY [facility] Acute Care Lab [address] [facility] Lab (1st floor, no room number) [place] [address] * Troponin T, High Sensitivity (07/11/2023 9:27 AM CDT) [facility] Troponin T, High Sensitivity <6 <=14 [...] - BLOOD RUBEN WARD Performing Organization Address City/[facility]/ZIP Co de Phone Number [facility] Care Lab [address] Lab (1st floor, no room number) [place] [address] * BNP (07/11/2023 9:27 AM CDT) [facility] N terminal Pro BNP Inpatient 152 [...] Bliss MD LAB - BLOOD RUBEN WARD [facility] Acute Care Lab [address] Lab (1st floor, no room number) [place] [address], [facility] * Lipase (07/11/2023 9:27 AM CDT) Lipase 44 13 - 60 U/L 07/11/2023 9:55 AM CDT RH LABORATORY Blood VENOUS LINE / Unknown Venipuncture / Unknown 07/11/2023 9:27 AM CDT 07/11/2023 9:34 AM CDT Amara lBiss MD LAB - BLOOD RUBEN WARD [facility] LABORATORY [facility] Acute Care Lab [address] Lab (1st floor, no room number) [place] [address] * D dimer quantitative (07/11/2023 9:27 AM [...] out pulmonary embolism: The ADJUST-PE Study. LIONEL 2014;311:6227-6413.; HJ Tatiana et al. Diagnostic accuracy of conventional or age adjusted D-dimer cutoff values in older patients with suspected venous thromboembolism. Systemic review and meta-analysis. BMJ 2013:346:f2492. Amara Bliss MD LAB - BLOOD RUBEN WARD [facility] LABORATORY [facility] Acute Care Lab [address] Lab (1st floor, no room number) [place] [address] * (ABNORMAL) Comprehensive metabolic panel (07/11/2023 9:27 AM CDT) [facility] Sodium 137 135 - 145 mmol/L [...] LAB - BLOOD RUBEN WARD RH LABORATORY [facility] Acute Care Lab [address] Lab (1st floor, no room number) [place] [address], [facility] * EKG 12-lead, tracing only (07/11/2023 9:01 AM CDT) Systolic Blood Pressure mmHg RADIOLOGY RESULTS Diastolic Blood Pressure mmHg RADIOLOGY RESULTS Ventricular Rate 60 BPM RAD IOLOGY RESULTS Atrial Rate 60 BPM RADIOLOG Y RESULTS RI Interval 162 ms RADIOLOG Y RESULTS QRS Duration 90 ms RADIOLO GY RESULTS QT 454 ms RADIOLOGY RESULTS QTc 454 ms RADIOLOGY RESULTS P [place] 70 degrees RADIOLOGY RESULTS R AXIS 9 degrees RADIOLOGY RESULTS T [place] 44 degrees RADIOLOGY RESULTS Interpretation ECG Sinus rhythm Cannot rule out Anterior infarct , age undetermined Abnormal ECG No previous ECGs available Unconfirmed report - interpretation of this ECG is computer generated - see medical record for final interpretation Confirmed by - EMERGENCY ROOM, PHYSICIAN ([id number]), commissioning editor AL ROBERTS ([id number]) on 07/11/2023 9:18:08 AM RADIOLOGY RESULTS 07/11/2023 [...] Recently Relevant to Health Maintenance Care Teams Guillotine Trimmer Relationship Specialty Start Date End Date Tiffanie Mcgovern NP [address] [address] PCP - General 07/11/23
--- OUTSIDE RECORDS SUMMARY | 2023-08-29 07:33 | XMS_ITS | Encounter Summary ---
Author Organization [facility] er Address [address] [place] [address] Care Team Providers Care Reception Centre Manager Name Role Phone Mynor Mcgovern APRN, PRINT PRODUCER Primary Care Provi rajni Reason for Visit * Reason Comments Med Refill Encounter Details Date Type Department Care Team (Late st Contact Info) Description 08/20/2021 Refill [place] [address] [address] Roopa Lopez MD 1705 [facility] 20 [place] [address] GUSTAVO (generalized anxiety disorder) Social History Tobacco [...] disorder documented in this encounter Care Teams Reception Centre Manager Relationship Specialty Start Date End Date Mynor Mcgovern APRN, PRINT PRODUCER [address] [place] [address] PCP - General Family Medicine 02/27/21 documented as of this encounter
--- OUTSIDE RECORDS SUMMARY | 2023-08-29 07:33 | XMS_ITS | Encounter Summary ---
Author Organization [facility] er Address [address] [place] [address] Care Team Providers Care Infection Control Coordinator Name Role Phone Tiffanie Mcgovern APRN, ADVANCE SEAL DELIVERY SYSTEM MAINTAINER Primary Care Provi rajni Reason for Visit * Reason Comments Med Refill Encounter Details Date Type Department Care Team (Late st Contact Info) Description 12/28/2019 Refill [facility] [address] [place] [address] Valerie Major MD [address] [place] [phone] Edema, unspecified type Social History Tobacco Use [...] Rule Out 02/18/2020 02/18/2020 02/18/2020 4:41 PM CVICU RN COVID-19 Rule Out 02/27/2021 02/27/2021 02/27/2021 10:40 AM CVICU RN COVID-19 Confirmed 02/27/2021 02/27/2021 2 8:17 PM CDT documented as of this encounter Care Teams Infection Control Coordinator Relationship Specialty Start Date End Date Tiffanie Mcgovern, SUPERVISOR SLEEPING BAG DEPARTMENT, ADVANCE SEAL DELIVERY SYSTEM MAINTAINER [address] [place] [address] PCP - General Family Medicine 02/27/21 documented as of this encounter
--- OUTSIDE RECORDS SUMMARY | 2023-08-29 07:33 | XMS_ITS | Encounter Summary ---
Author Organization [facility] er Address [address] [place] [address] Care Team Providers Care Fixer Boarding Room Name Role Phone Tiffanie Mcgovern CHECK PROCESSING CLERK, RN SPINE Primary Care Provi rajni Reason for Visit * Reason Comments Med Refill Encounter Details Date Type Department Care Team (Late st Contact Info) Description 09/02/2018 Refill [place] [address] [place] [address] Tiffanie Mcgovern, CHECK PROCESSING CLERK, RN SPINE [address] [place] [address] Hyperlipidemia, unspecified hyperlipidemia type (Primary Dx) Social [...] Rule Out 02/18/2020 02/18/2020 02/18/2020 4:41 PM TAIL END RIDER COVID-19 Rule Out 02/27/2021 02/27/2021 02/27/2021 10:40 AM TAIL END RIDER COVID-19 Confirmed 02/27/2021 02/27/2021 2 8:17 PM CDT documented as of this encounter Care Teams Fixer Boarding Room Relationship Specialty Start Date End Date Tiffanie Mcgovern APRN, KYLE [address] [facility] [place] [address] PCP - General Family Medicine 02/27/21 documented as of this encounter
--- OUTSIDE RECORDS SUMMARY | 2023-08-29 07:33 | XMS_ITS | Encounter Summary ---
Author Organization [facility] er Address [address] [place] [address] Care Team Providers Care Burn Out Tender Lace Name Role Phone Tiffanie Mcgovern APRN, FRENCH PASTRY COOK Primary Care Provi rajni Reason for Visit * Reason Comments Med Refill Encounter Details Date Type Department Care Team (Late st Contact Info) Description 11/22/2021 Refill [place] [address] [address] Roopa Lopez MD 1705 [facility] 20 [place] [address] Postablative hypothyroidism Social History Tobacco Use Types [...] her refill requests to Dennis Mcgovern in [place]. Pt agreed. * Telephone Encounter - Alyce Shah - 11/26/2021 9:01 AM CDT Noted. * Telephone Encounter - Doris Garcia RN - 11/26/2021 8:34 AM CDT Left message on secured line for patient to contact PCP in [place] for refills and to advise pharmacy of [...] hypothyroidism documented in this encounter Care Teams Burn Out Tender Lace Relationship Specialty Start Date End Date Tiffanei Mcgovern, DATA CENTER OPERATOR, FRENCH PASTRY COOK [address] [place] [address] PCP - General Family Medicine 02/27/21 documented as of this encounter
--- OUTSIDE RECORDS SUMMARY | 2023-08-29 07:33 | XMS_ITS | Encounter Summary ---
Author Organization [place] Address [address] [place] [address] Care Team Providers Care Rigging Helper Name Role Phone Frw, None Primary Care Provider Tiffanie Crow NP Primary Care Provider Encounter Details Date Type Department Care Team (Late st Contact Info) Description 06/07/2004 [facility] [place] GAS APPLIANCE INSTALLER [address] [place] [phone] Butch Mitchell MD Social History Tobacco Use [...] on filedocumented in this encounter Care Teams Rigging Helper Relationship Specialty Start Date End Date Frw, None PCP - General 04/02/00 11/07/16 Tiffanie Mcgovern NP [address] [address] PCP - General 07/11/23 documented as of this encounter
--- OUTSIDE RECORDS SUMMARY | 2023-08-29 07:33 | XMS_ITS | Encounter Summary ---
Author Organization [facility] er Address [address] [place] [address] Care Team Providers Care Formulator Name Role Phone Tiffanie Mcgovern APRN, PIECE WORKER Primary Care Provi rajni Encounter Details Date Type Department Care Team (Late st Contact Info) Description 12/06/2019 Telephone [place] [address] [place] [address] Roopa Lopez MD 1705 [facility] 20 [place] [address] Social History Tobacco Use Types Packs/Day Years [...] Rule Out 02/18/2020 02/18/2020 02/18/2020 4:41 PM PERINATAL DIRECTOR COVID-19 Rule Out 02/27/2021 02/27/2021 02/27/2021 10:40 AM PERINATAL DIRECTOR COVID-19 Confirmed 02/27/2021 02/27/2021 2 8:17 PM CDT documented as of this encounter Care Teams Formulator Relationship Specialty Start Date End Date Tiffanie Mcgovern, VIRTUAL ASSISTANT, PIECE WORKER [address] [facility] [place] [address] PCP - General Family Medicine 02/27/21 documented as of this encounter
--- OUTSIDE RECORDS SUMMARY | 2023-08-29 07:33 | XMS_ITS | Clinical Summary ---
Author Organization [facility] er Address [address] [place] [address] Care Team Providers Care Senior Economist Name Role Phone Tiffanie Mcgovern APRN, CARE SPECIALIST Primary Care Provi ranji Allergies Active Allergy Reactions Criticality Noted Date [...] tablet 2 12/30/2022 Active Sodium Chloride-Sodium Bicarb ([facility] Saline Nasal Neti Rinse) 1.57 g packIndications:Nasal [...] therapy and states her daughter is a warehouse trainer. Also trying to lose weight and [...] 12/30/2022 How often do you attend [facility] or sikhism services? 1 to 4 times per year 12/30/2022 Do you belong to any clubs o r organizations such as adventism groups, unions, fraternal [...] Date Recorded PHQ-9 Total Score 4 12/30/2022 [facility] Occupat ional [facility] - Occupational Stress [...] place to sleep or slept in a long-term (including now)? No 12/30/2022 Sex and Gender [...] Diagnosis Comments COLOGUARD Routine 05/11/2020 6:30 AM HAND DECORATOR Well adult exam from Last 3 Months or Most Recently Relevant to Health Maintenance Results * Cologuard (05/11/2020 6:30 AM HAND DECORATOR) Cologuard result Negative Not Applicable [employer] Comment: A negative result indicates a low [...] Gaona et al, N Engl J Med 2014;370(14):1174-2515) The normal value (reference range) for this assay is negative. COLOGUARD RE-SCREENING RECOMMENDATION: Periodic routine colorectal cancer screening is an important part of preventive healthcare for asymptomatic persons at average risk for colorectal cancer. Following a negative Cologuard result, the [place] Cancer Society and U.S. Multi-Society Task Force screening guidelines recommend a Cologuard re-screening interval of 3 years. References: [place] [employer] Society (ACS). Colorectal cancer prevention and early detection. [place], [place]: [place] [employer]; [updated 2015Jul 01]. https://www.cancer.org/cancer/tztvl-krzoey-jbmlho/cgrwionpw-vyzdomrjo-ylofagf/ac s-rec ommendations.html. Accessed November 07, 2017; Jake DK, Clarissa CR, Sung GutierrezK, Colorectal Cancer Screening: Recommendations for Physicians and Patients from the U.S. Multi-Society Task Force on Colorectal Cancer Screening, Am J Gastroenterology 2017; 112:5546-7313. TEST TYPE: Composite algorithmic analysis of stool [...] interval of every 3 years by the [place] [employer] Society and U.S. Multi-Society Task Force. [...] can be accessed at the following location: www.[employer]ago/results. Additional description of the Cologuard test process, warnings and precautions can be found at www.cologuardtest.com. Rx only. [facility], [address] [place], [address], , Clinical Laboratory Leather Goods Maker, BRIANNA HANDY, , CLIA NO: [id number] Stool 05/11/2020 6:30 AM HAND DECORATOR 05/12/2020 12:30 PM HAND DECORATOR Catalina Pennington APRN, CARE SPECIALIST LAB BODY FLUIDS AN D STOOLS ORDERABLES [facility] [address] [place] [id number], from Last 3 Months or Most Recently Relevant to Health Maintenance Care Teams Senior Economist Relationship Specialty Start Date End Date Tiffanie Mcgovern APRN, CARE SPECIALIST [address] [facility] [place] [address] PCP - General Family Medicine 02/27/21
--- NOTE | 2023-08-29 07:45 | CRLHL7_ITS ---
For Patients: As a result of the Cures Act, medical imaging exams and procedure reports are released immediately into your electronic medical record. You may view this report before your referring provider. If you have questions, please contact your health care provider. LEFT DIAGNOSTIC DIGITAL MAMMOGRAM WITH COMPUTER-AIDED DETECTION AND TOMOSYNTHESIS LEFT BREAST ULTRASOUND CLINICAL HISTORY: LEFT breast mass/asymmetry. COMPARISON: 08/21/2023 TECHNIQUE: Digital LEFT mammogram in two projections with computer-aided detection. Tomosynthesis was used in this interpretation. Real-time ultrasound imaging of LEFT breast with imaging documentation. BREAST COMPOSITION: There are scattered areas of fibroglandular density. FINDINGS: 3D spot compression CC/MLO LEFT breast mammogram images submitted. Decreased conspicuity of previously noted asymmetric density. No suspicious mass or architectural distortion. Targeted LEFT breast ultrasound performed at 2 o`clock, 6 cm from the nipple. Normal fibroglandular tissue is present. No fibrocystic change or mass. IMPRESSION: No evidence of malignancy. Normal fibroglandular tissue. RECOMMENDATION: Annual BILATERAL screening mammography. BI-RADS Category: 2. Benign Results and recommendations discussed with the patient. A lay language report of this examination will be provided to the patient. Dictated by Levi Cameron MD @ 08/29/2023 9:55:27 AM CRL:[email or web address] RD/Dictated by: Levi Cameron MD @ 08/29/2023 9:55:[address]/Dictated by: Levi Cameron MD @ 08/29/2023 9:55:00 AM (Electronically Signed)
--- NOTE | 2023-08-29 08:15 | CRLHL7_ITS ---
For Patients: As a result of the Century Cures Act, medical imaging exams and procedure reports are released immediately into your electronic medical record. You may view this report before your referring provider. If you have questions, please contact your health care provider. PLEASE SEE LEFT DIAGNOSTIC MAMMOGRAM OF SAME DAY FOR COMBINED REPORT. CRL:[email or web address] RD/Dictated by: Levi Cameron MD @ 08/29/2023 9:55:00 AM (Electronically Signed)
== END 2023-08-29 07:31 | disposition home or self-care (01) ==
LOC: MAMMO 07:31
PROVIDERS: PCP Nurse Practitioner Family; Visit Provider Nurse Practitioner Family
DX: N63.20 Unspecified lump in the left breast, unspecified quadrant (principal); R92.8 Other abnormal and inconclusive findings on diagnostic imaging of breast
CPT/HCPCS: 76642; 77065; G0279

== ENCOUNTER 2023-10-07 10:26 | Outpatient (CLI) | payer OTHER, SELFPAY ==
--- OUTSIDE RECORDS SUMMARY | 2023-10-07 10:47 | XMS_ITS | Clinical Summary ---
Author Organization [facility] Address [address] [place] [address] Care Team Providers Care Buttonhole Tacker Name Role Phone Tiffanie Mcgovern NP Primary [...] CDT - 07/11/2023 1:16 PM CDT [facility] Emergency Dept [address] [place] [address] Amara Bliss MD Chest pain, unspecified type; [...] 04/05/2020 PHQ-2 (once per calendar year) 2023 INFLUENZA VACCINE (#1) 2023 , 01/12/2019, 12/17/2016, Additional history exists GLUCOSE 07/10/2026 07/11/2023 DTAP/TDAP/TD IMMUNIZATION (3 - Td or Tdap) 08/30/2027 08/29/2017, 10/24/2005 HEPATITIS B IMMUNIZATION Completed 003, 08/18/2002, 05/19/2002, Additional history exists HPV IMMUNIZATION Aged Out [...] 12 months. ODIN FELICIANO MD SYSTEM ID: [id number] Narrative 07/11/2023 11:[address] AORTIC [...] 12 months. ODIN FELICIANO MD SYSTEM ID: [id number] Amara Bliss MD [facility] [place] ORDERABLE S * Extra Red Top Tube (07/11/2023 9:27 AM CDT) Hold Specimen [facility] 07/11/2023 11:01 AM CDT LABORATORY Blood VENOUS LINE / Unknown Venipuncture / Unknown 07/11/2023 9:27 AM CDT 07/11/2023 9:59 AM CDT Amara Bliss MD LAB - BLOOD RUBEN WARD [facility] Organization Address City/State/ZIP Co de Phone Number [facility] Acute Care Lab [address] Lab (1st floor, no room number) [place] [address], [facility] * Extra Blue Top Tube (07/11/2023 9:27 AM CDT) Hold Specimen [facility] 07/11/2023 10:46 AM CDT RH LABORATORY Blood VENOUS LINE / Unknown Venipuncture / Unknown 07/11/2023 9:27 AM CDT 07/11/2023 9:34 AM CDT Amara Bliss MD LAB - BLOOD RUBEN WARD [facility] LABORATORY [facility] Acute Care Lab [address] Lab (1st floor, no room number) [place] [address] * CBC with platelets and differential [...] 0.0 <=0.4 10e3/uL 07/11/2023 9:37 AM CDT LABORATORY Absolute NRBCs 0.0 10e3/uL 07/11/2023 9:37 AM CDT LABORATORY Blood VENOUS LINE / Unknown Venipuncture / Unknown 07/11/2023 9:27 AM CDT 07/11/2023 9:34 AM CDT Amara Bliss MD LAB - BLOOD RUBEN WARD [facility] Organization Address City/State/ZIP Co de Phone Number LABORATORY [facility] Acute Care Lab [address] [facility] Lab (1st floor, no room number) [place] [address] * Troponin T, High Sensitivity (07/11/2023 9:27 AM CDT) [facility] Troponin T, High Sensitivity <6 <=14 ng/L [...] - BLOOD RUBEN WARD Performing Organization Address City/[facility]/ZIP Co de Phone Number [facility] Care Lab [address] Lab (1st floor, no room number) [place] [address] * BNP (07/11/2023 9:27 AM CDT) [facility] N terminal Pro BNP Inpatient 152 0 [...] - BLOOD RUBEN WARD Performing Organization Address City/[facility]/ZIP Co de Phone Number [facility] Acute Care Lab [address] Lab (1st floor, no room number) [place] [address], [facility] * Lipase (07/11/2023 9:27 AM CDT) Lipase 44 13 - 60 U/L 07/11/2023 9:55 AM CDT LABORATORY Blood VENOUS LINE / Unknown Venipuncture / Unknown 07/11/2023 9:27 AM CDT 07/11/2023 9:34 AM CDT Amara Bliss MD LAB - BLOOD RUBEN WARD [facility] LABORATORY [facility] Acute Care Lab [address] [facility], no room number) [place] [address] * D dimer quantitative (07/11/2023 9:27 [...] out pulmonary embolism: The ADJUST-PE Study. LIONEL 2014;311:1174-6994.; HJ Tatiana et al. Diagnostic accuracy of conventional or age adjusted D-dimer cutoff values in older patients with suspected venous thromboembolism. Systemic review and meta-analysis. BMJ 2013:346:f2492. Amara Bliss MD LAB - BLOOD RUBEN WARD [facility] Organization Address City/State/ZIP Co de Phone Number RH LABORATORY [facility] Acute Care Lab [address] Lab (1st floor, no room number) [place] [address] * (ABNORMAL) Comprehensive metabolic panel (07/11/2023 9:27 AM CDT) [facility] Sodium 137 135 - 145 mmol/L 07/11/2023 [...] LAB - BLOOD RUBEN WARD RH LABORATORY [facility] Acute Care Lab [address] [facility] Lab (1st floor, no room number) [place] [address], [facility] * EKG 12-lead, tracing only (07/11/2023 9:01 AM CDT) Systolic Blood Pressure mmHg RADIOLOGY RESULTS Diastolic Blood Pressure mmHg RADIOLOGY RESULTS Ventricular Rate 60 BPM RAD IOLOGY RESULTS Atrial Rate 60 BPM RADIOLOG Y RESULTS [place] Interval 162 ms RADIOLOG Y RESULTS QRS Duration 90 ms RADIOLO GY RESULTS QT 454 ms RADIOLOGY RESULTS QTc 454 ms RADIOLOGY RESULTS P [place] 70 degrees RADIOLOGY RESULTS R AXIS 9 degrees RADIOLOGY RESULTS T [place] 44 degrees RADIOLOGY RESULTS Interpretation ECG Sinus rhythm Cannot rule out Anterior infarct , age undetermined Abnormal ECG No previous ECGs available Unconfirmed report - interpretation of this ECG is computer generated - see medical record for final interpretation Confirmed by - EMERGENCY ROOM, PHYSICIAN ([id number]), editorial specialist AL ROBERTS ([id number]) on 07/11/2023 9:18:08 AM RADIOLOGY RESULTS 07/11/2023 [...] 1: Negative Tiffanie Mcgovern NP IMG MAMMOGRAPHY RUBEN WARD from Last 3 Months or Most Recently Relevant to Health Maintenance Care Teams Buttonhole Tacker Relationship Specialty Start Date End Date Tiffanie Mcgovern NP [address] [address] PCP - General 07/11/23
--- OUTSIDE RECORDS SUMMARY | 2023-10-07 10:48 | XMS_ITS | Encounter Summary ---
Author Organization [facility] Address [address] [place] [address] Care Team Providers Care Table Attendant Name Role Phone Frw, None Primary Care Provider Tiffanie Crow NP Primary Care Provider [phone] Encounter Details Date Type Department Care Team (Late st Contact Info) Description 06/07/2004 [facility] [place] CONSULTING BUSINESS DEVELOPER [address] [place] [phone] Butch Mitchell MD Social History Tobacco Use [...] on filedocumented in this encounter Care Teams Table Attendant Relationship Specialty Start Date End Date Frw, None PCP - General 04/02/00 11/07/16 Tiffanie Mcgovern NP [address] [address] PCP - General 07/11/23 documented as of this encounter
--- OUTSIDE RECORDS SUMMARY | 2023-10-07 10:48 | XMS_ITS | Clinical Summary ---
Author Organization [facility] er Address [address] [place] [address] Care Team Providers Care Ship Rigger Apprentice Name Role Phone Tiffanie Mcgovern APRN, BARNWORKER GROOM Primary Care Provi rajni Allergies Active Allergy [...] tablet 2 12/30/2022 Active Sodium Chloride-Sodium Bicarb ([place] Saline Nasal Neti Rinse) 1.57 g packIndications:Nasal [...] therapy and states her daughter is a ehr trainer. Also trying to lose weight and [...] week 12/30/2022 How often do you attend [facility] or jewish services? 1 to 4 times per year 12/30/2022 Do you belong to any clubs o r organizations such as moravian groups, unions, fraternal [...] place to sleep or slept in a fci (including now)? No 12/30/2022 Sex and Gender [...] 4 season) 2022 05/03/2020, 04/05/2020 Influenza Vaccine (#1) 2023 9, 12/17/2016, 12/22/2009 Colorectal Cancer Screening 10/22/2024 FIT-DNA [...] Diagnosis Comments COLOGUARD Routine 05/11/2020 6:30 AM CHARACTER ACTOR Well adult exam from Last 3 Months or Most Recently Relevant to Health Maintenance Results * Cologuard (05/11/2020 6:30 AM CHARACTER ACTOR) Cologuard result Negative Not Applicable [facility] Referrals Comment: A negative result indicates a low [...] Gaona et al, N Engl J Med 2014;370(14):5486-3916) The normal value (reference range) for this assay is negative. COLOGUARD RE-SCREENING RECOMMENDATION: Periodic routine colorectal cancer screening is an important part of preventive healthcare for asymptomatic persons at average risk for colorectal cancer. Following a negative Cologuard result, the Chinese Cancer Society and U.S. Multi-Society Task Force screening guidelines recommend a Cologuard re-screening interval of 3 years. References: [employer] Cancer Society (ACS). Colorectal cancer prevention and early detection. [place], [place]: [place] Cancer Society; [updated 2015Jul 01]. https://www.cancer.org/cancer/vljkz-ucloyd-hnsnge/ydtlyaoxp-wsurfnwwa-kiwcrpz/ac s-rec ommendations.html. Accessed November 07, 2017; Jake DK, Clarissa CR, Sung GutierrezK, Colorectal Cancer Screening: Recommendations for Physicians and Patients from the U.S. Multi-Society Task Force on Colorectal Cancer Screening, Am J Gastroenterology 2017; 112:8766-2163. TEST TYPE: Composite algorithmic analysis of stool [...] interval of every 3 years by the [place] Cancer Society and U.S. Multi-Society Task Force. [...] can be accessed at the following location: www.[employer]/results. Additional description of the Cologuard test process, warnings and precautions can be found at www.cologuardtest.com. Rx only. [facility], [address] [place], [address], , Clinical Laboratory Route Driver, BRIANNA HANDY, , CLIA NO: [id number] Stool 05/11/2020 6:30 AM CHARACTER ACTOR 05/12/2020 12:30 PM CHARACTER ACTOR Catalina Pennington APRN, BARNWORKER GROOM LAB BODY FLUIDS AN D STOOLS ORDERABLES [facility] [address] [place] [address], from Last 3 Months or Most Recently Relevant to Health Maintenance Care Teams Ship Rigger Apprentice Relationship Specialty Start Date End Date Tiffanie Mcgovern APRN, BARNWORKER GROOM [address] [facility] [place] [address] PCP - General Family Medicine 02/27/21
--- OUTSIDE RECORDS SUMMARY | 2023-10-07 10:48 | XMS_ITS | Referral Summary ---
Author Organization [facility] Address [address] [place] [id number] Care Team Providers Care Basketball Assembler Name Role Phone Elsewhere, Pcp Primary Care Provider Unavailabl e Source Comments Patient records contain information from all sites at [facility]. For routine questions regarding patient records, call [phone] during business hours, M-F 8:00 AM - 5:00 PM Central Time. Record requests for emergency care only can be directed to [phone] at any time.[facility] Encounters Date Type Department Care Team Description 09/30/2023 8:01 AM CDT - 09/30/2023 11:59 PM CDT Hospital Encounter Department of Laboratory Medicine and Pathology, [facility] in [place], [place] [address] [place] [phone] Crystal Le M.D. Graves' Disease Discharge Disposition: Home or Self Care 09/30/2023 10:15 AM CDT Office Visit Division of Endocrinology in [place], [place] [address] [place] [phone] Crystal Le M.D. Graves' Disease (Primary Dx) 09/26/2023 Orders Only Division of Endocrinology in [place], [place] [address] [place] [phone] Crystal Le M.D. Graves' Disease (Primary Dx) 09/26/2023 Clinical Communication Division of Endocrinology in [place], [place] [address] [place] [phone] Crystal Le M.D. 09/19/2023 Clinical Communication Primary Care on Demand at [facility] [address] [address] Feliciano Robins M.D. 07/29/2023 Clinical Communication Primary Care on Demand at [facility] [address] [place] [phone] Feliciano Robins M.D. 07/16/2023 [facility] [address] [place] [address] Tiffanie Mcgovern C.N.P. Symptom Nervous System (Primary Dx) from Last 3 Months Allergies Active Allergy Reactions Criticality Noted Date Comments Morphine Other (see comments) 07/13/2010 Opioids - Morphine Analogues Itching 023 Oxycodone-Acetaminophen Other (see comments) Medications Medication Sig Dispensed Refills Start Date End Date Status simvastatin (ZOCOR) 20 mg tablet Take 20 mg by mouth daily. 09/04/2018 Active verapamil (VERELAN) 240 mg 24 hr capsule Take 240 mg by mouth daily. 09/02/2018 Active traZODone (DESYREL) 50 mg tablet Take 50 mg by mouth Medrol Dose Pack scheduling ONLY. 08/12/2018 Active LORazepam (ATIVAN) 0.5 mg tablet Take 0.5 mg by mouth daily as needed. 04/02/2019 Active LORazepam (ATIVAN) 1 mg tablet Take 1 tablet (1 mg total) by mouth 2 (two) times a day as needed for anxiety for up to 7 days. 14 tablet 06/08/2019 Active Additional Information Patient not taking.Reported on 09/30/2023 levothyroxine (SYNTHROID, LEVOTHROID) 100 mcg tablet TAKE ONE TABLET BY MOUTH DAILY - 6 DAYS OF THE WEEK FROM FRIDAY THRU FRIDAY , AND TAKE ONE AND ONE-HALF TABLETS ON FRIDAY. 06/11/2021 Active traMADoL (ULTRAM) 50 mg tablet 09/30/2022 Active ZOLMitriptan (ZOMIG) 5 mg tablet May take one at the start of a migraine and repeat in 2 hours if needed. No more than 2 in 24 hours or 4 in a week 10/10/2020 Active cetirizine (ZyrTEC) 10 mg tablet Take 1 tablet by mouth daily. 12/30/2022 Active DULoxetine (Cymbalta) [address] capsule 08/25/2023 Active methocarbamoL (Robaxin) 500 mg tablet [METHOCARBAMOL (ROBAXIN) 500 MG TABLET] 1-2 tabs po q HS. May cause drowsiness. Do not drive while taking this medication. 06/03/2017 Active tiZANidine (Zanaflex) 2 mg tablet [TIZANIDINE (ZANAFLEX) 2 MG TABLET] TAKE ONE TO TWO TABLETS (2 TO 4 MG TOTAL) BY MOUTH TWICE DAILY NEEDED FOR MUSCLE SPASMS 09/07/2018 Active phentermine 30 mg capsule Take 30 mg by mouth every morning. Active nabumetone (RELAFEN) 500 mg tablet Take 500 mg by mouth as needed for pain. 08/12/2018 09/30/19 24 Discontinued sertraline (ZOLOFT) 50 mg tablet TAKE ONE TABLET BY MOUTH EVERY MORNING FOR ANXIETY AND DEPRESSION 09/05/2020 09/30/19 24 Discontinued(Alt ernate therapy) cyclobenzaprine (FLEXERIL) 10 mg tablet Take 1 tablet (10 mg total) by mouth 3 (three) times a day as needed for muscle spasms for up to 10 days. 21 tablet 06/18/2021 09/30/19 24 Discontinued amoxicillin (AMOXIL) 875 mg tablet 08/08/2022 09/30/19 24 Discontinued diclofenac sodium (VOLTAREN) 75 mg EC tablet 09/24/2022 09/30/19 24 Discontinued fluconazole (DIFLUCAN) 200 mg tablet 10/03/2022 09/30/19 24 Discontinued PARoxetine (PAXIL) 20 mg tablet 09/02/2022 09/30/19 24 Discontinued cyclobenzaprine (FLEXERIL) 10 mg tablet Take 10 mg by mouth at bedtime as needed. 12/30/2022 09/30/19 24 Discontinued naproxen (NAPROSYN) 375 mg tablet Take 375 mg by mouth. 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 Major Depressive Disorder, Recurrent, Unspecifie d 04/24/2012 Overview (07/30/2016): Major Depressive Disorder, Recurrent Episode, Unspecified Degree unknown date of dx Aftercare Surgery Injury Immunizations Name Administration Dates Next Due HepB (discontinued) adolesce nt/high risk 09/27/2002,08/18/2002,05/19/2002,1998 HepB Adult 09/27/2002, 3,05/19/2002,1998 Influenza (IM) Preservative Free 12/22/2009 Influenza, Injectable, Mdck, Quadrivalent 12/05/2022 Influenza, Unspecified 12/04/2022 Tdap 08/29/2017,10/24/2005 influenza vaccine quad (FLUZONE/FLUARIX) (6 months and older)(PF) 01/12/2019,12/17/2016 Social History Tobacco Use Types Packs/Day Years Used Date Smoking Tobacco: Former Cigarettes 0.3 13 0 03/10/1984 - 03/10/1997 Smokeless Tobacco: Never Tobacco Cessation:Counseling Given: Not Answered Comments:occasional pack/year Alcohol Use Standard Drinks/Week Comments Yes 2 (1 standard drink = 0.6 oz pur e alcohol) Social Connection and Isolat ion Panel [NHANES] Answer Date Recorded In a typical week, how many times do you talk on the phone with family, friends, or neighbors? More than three times a week 06/22/2019 How often do you get togethe r with friends or relatives? Twice a week 06/22/2019 How often do you attend chur ch or congregational services? More than 4 times per year 06/22/2019 Do you belong to any clubs o r organizations such as hoahaoism groups, unions, fraternal or athletic groups, or school groups? No 06/22/2019 How often do you attend meet ings of the clubs or organizations you belong to? Never 06/22/2019 Are you , , di vorced, , never , or living with a partner? 06/22/2019 AUDIT-C Answer Date Recorded Q1: How often do you have a drink containing alc ohol? 2-3 times a week 06/22/2019 Q2: How many drinks containi ng alcohol do you have on a typical day when you are drinking? 1 or 2 06/22/2019 Q3: How often do you have si x or more drinks on one occasion? Less than monthly 06/22/2019 Overall Financial Resource Strain (CARDIA) Answe r Date Recorded How hard is it for you to pa y for the very basics like food, housing, medical care, and heating? Not very hard 01/15/2023 [facility] Occupat ional Health - Occupational Stress Questionnaire Answer Date Recorded Do you feel stress - tense, restless, nervous, or anxious, or unable to sleep at night because your mind is troubled all the time - these days? Very much 06/22/2019 Exercise Vital Sign Answer Date Recorde d On average, how many days pe r week do you engage in moderate to strenuous exercise (like a brisk walk)? 0 days 01/15/2023 On average, how many minutes do you engage in exercise at this level? 0 min 01/15/2023 Hunger Vital Sign Answer Date Recorded Within the past 12 months, y ou worried that your food would run out before you got the money to buy more. Never true 01/16/20 Within the past 12 months, t he food you bought just didn't last and you didn't have money to get more. Never true 01/15/2023 PRAPARE - Transportation Answer Date Re corded In the past 12 months, has l ack of transportation kept you from medical appointments or from getting medications? No 10/2022 In the past 12 months, has l ack of transportation kept you from meetings, work, or from getting things needed for daily living? No 01/15/2023 Nutrition Answer Date Recorded Nutrition: EVOO Fat Source Unknown 01/15 On average, how many serving s of fruits and vegetables do you eat per day (serving size is equal to 1 cup or approximately the size of a tennis ball)? 0-2 01/15/2023 Dental Answer Date Recorded Dental: Regular Dentist Yes 01/16/20 Employment Answer Date Recorded Employment status Employed and actively working without restrictions 01/15/2023 Housing Stability Answer Date Recorded What is your living situation today? I have a [facility] place to live 01/15/2023 Education Answer Date Recorded What is the highest level of school you have completed or the highest degree you have received? Associate degree: academic program 06/22/2019 Sex and Gender Information Value Date Recorded Sex Assigned at Female 01/15/2023 10:13 AM JUDO TEACHER Gender Identity Female 01/15/2023 10:13 AM JUDO TEACHER Sexual Orientation Straight 01/15/2023 10 :13 AM JUDO TEACHER Last Filed Vital Signs Vital Sign Reading Time Taken Comments Blood Pressure 137/76 09/30/2023 9:53 AM CDT Pulse 68 09/30/2023 9:53 AM CDT Temperature 36.5 ??C (97.7 ??F) 01/17/2023 9:26 AM CS T Respiratory Rate 14 06/08/2019 5:30 PM CDT Oxygen Saturation 98% 06/18/2021 10: 20 AM CDT Inhaled Oxygen Concentration - - Weight 90.7 kg (199 lb 15.3 oz) 09/30/2023 9:53 AM CDT Height 174.9 cm (5' 8.86) 09/30/2023 9:53 AM CD T Body Mass Index 29.65 09/30/2023 9:53 AM CDT Plan of Treatment Not on file Procedures Procedure Name Priority Date/Time Associated Diagnosis Comments T4 (THYROXINE), FREE, S Routine 09/30/2023 8:15 AM CDT Graves' Disease THYROID-STIMULATING HORMONE-SENSITIVE (S-TSH) Routine 09/30/2023 8:15 AM CDT Graves' Disease OUTSIDE MR NEURO Routine 07/24/2023 6:05 PM CDT COMPREHENSIVE METABOLIC PANEL, S/P STAT 06/18/2021 10:34 AM CDT BI BREAST SCREENING BILATERAL RAD - Routine (most inpatients and all outpatients) 11/08/2019 1:20 PM CDT Screening Mammogram Breast Cancer LIPID PANEL, S Routine 06/17/2013 7:55 AM CDT from Last 3 Months or Most Recently Relevant to Health Maintenance Results * S-TSH (Thyroid-Stimulating Hormone - Sensitive) (09/30/2023 8:15 AM CDT) TSH, Sensitive 3.2 0.3 - 4.2 mIU/L 09/30/2023 9:25 AM CDT DTL Blood (Blood, Venous) 09/30/2023 8:15 AM CDT 09/30/2023 8:53 AM CDT Crystal Le M.D. LAB BLOOD ADD-ON Performing Organization Address [facility] Co de Phone Number [facility] [address] [place] [address] * T4 (Thyroxine), Free (09/30/2023 8:15 AM CDT) T4 (Thyroxine), Free, S 1.1 0.9 - 1.7 ng/dL 09/30/2023 9:25 AM CDT DT Blood (Blood, Venous) 09/30/2023 8:15 AM CDT 09/30/2023 8:53 AM CDT Crystal Le M.D. LAB BLOOD ADD-ON Performing Organization Address [facility] Co de Phone Number [facility] [address] [place] [address] * MRI-Brain W/O-Outside MR Neuro (07/24/2023 6:05 PM CDT) Narrative [facility] - 08/22/2023 3:17 PM CDT This order has been created and auto-finalized to support the import of outside images. If available, original interpretation can be found on the Media Tab in Chart Review, in Document Viewer, as an image in QREADS or as an Addendum. If a re-interpretation or overread is required please follow defined workflow.?? Provider Not In System IMG MRI PROCEDURE S Performing Organization Address [facility] Co de Phone Number [facility] NA * BI Breast Screening Bilateral (11/08/2019 1:20 PM CDT) Anatomical Region Laterality Modality Breast, Breast Imaging RST L OS, Breast Imaging ARZ LOS, Breast Imaging FLA LOS Bilateral Mammography 11/09/2019 9:54 AM CDT Impressions 11/09/2019 9:59 AM CDT Negative. RECOMMENDATION: ??Annual Screening Mammogram ASSESSMENT: ??BI-RADS: 1: Negative. Narrative 11/09/2019 9:59 AM CDT EXAM: ??BI BREAST SCREENING BILATERAL Current study was evaluated with a Computer Aided Detection (CAD) system. INDICATION: ??Screening mammogram. COMPARISON: ??Prior exam(s) were available and reviewed for comparison. DENSITY: ??c. The breast(s) are heterogeneously dense, which may obscure small masses. FINDINGS: ??No mammographic findings of malignancy. Procedure Note Grey Stratton M.D. - 11/09/2019 EXAM: BI BREAST SCREENING BILATERAL Current study was evaluated with a Computer Aided Detection (CAD) system. INDICATION: Screening mammogram. COMPARISON: Prior exam(s) were available and reviewed for comparison. DENSITY: c. The breast(s) are heterogeneously dense, which may obscuresmall masses. FINDINGS: No mammographic findings of malignancy. IMPRESSION: Negative. RECOMMENDATION: Annual Screening Mammogram ASSESSMENT: BI-RADS: 1: Negative. Paul Abarca M.D., Ph.D. [facility] ES * (ABNORMAL) Lipid Panel (06/17/2013 7:55 AM CDT) Cholesterol, Total 182 0 - 200 MGDL POWERCHART Comment: <200 mg/dL Desirable 200-239 mg/dL Borderline High >239 mg/dL High HX HDL 67(H) 35 - 60 MGDL POWERCHART Comment: > 60 mg/dL Desirable 40 ? 60 mg/dL Low Risk <40 mg/dL Undesirable Triglycerides 114 9 - 150 MGDL POWERCHART Comment: <150 mg/dL Desirable 150-199 mg/dL Borderline High 200-499 mg/dL High > 499 Very High Calculated LDL 92(L) 100 - 129 MGDL POWERCHART Total Cholesterol/HDL Ratio 3 POWERCHART Blood 06/17/2013 7:55 AM CDT Kaylin Fan APRNNSonjaP., D.N.P. LAB BLOOD ADD-ON POWERCHART from Last 3 Months or Most Recently Relevant to Health Maintenance Care Teams Basketball Assembler Relationship Specialty Start Date End Date Elsewhere, Pcp PCP - General Internal Medicine 06/18/21
--- OUTSIDE RECORDS SUMMARY | 2023-10-07 10:48 | XMS_ITS | Encounter Summary ---
Author Organization [facility] Address [address] [place] [phone] Care Team Providers Care Forepart Laster Name Role Phone Tiffanie Mcgovern NP Primary Care Provider Reason for Visit * Reason Comments Chest Pain Encounter Details Date Type Department Care Team (Late st Contact Info) Description 07/11/2023 9:12 AM CDT - 07/11/2023 1:16 PM CDT Emergency [facility] Emergency Dept [address] [place] [address] Amara Bliss MD [facility] [address] [place] [address] Chest pain, unspecified type; Upper abdominal pain; [...] directed by your provider today. Before using ejzu-hqv-[id number] medications, ask your provider and make sure [...] Care Everywhere. * Pulmonary Nodules: General Info (Japanese) * Chest Pain (Japanese) documented in this encounter Medications at Time [...] Migraine w/ aura HLD MDD Prinzmetal angina [place] Medications Robaxin Relafen Zocor Zanaflex Desyrel Verelan [...] 12 months. ODIN FELICIANO MD SYSTEM ID: [id number] Results per radiology EKG ECG taken at 900, ECG read at 04 Normal sinus rhythm Cannot rule Anterior infract, age undetermined Abnormal ECG Rate 60 bpm. GA interval 162 ms. QRS duration 90 ms. [...] 12 months. ODIN FELICIANO MD SYSTEM ID: ??[id number] Narrative 07/11/2023 11:[address] AORTIC [...] 12 months. ODIN FELICIANO MD SYSTEM ID: [id number] Amara Bliss MD [facility] CT ORDERABLE S * Extra Red Top Tube (07/11/2023 9:27 AM CDT) Pathologist [facility] Hold Specimen [facility] 07/11/2023 11:01 AM CDT LABORATORY Blood VENOUS LINE / Unknown Venipuncture / Unknown 07/11/2023 9:27 AM CDT 07/11/2023 9:59 AM CDT Amara Bliss MD LAB - BLOOD RUBEN WARD [facility] Organization Address City/State/ZIP Co de Phone Number [facility] Acute Care Lab [address] Lab (1st floor, no room number) [place] [phone] * BNP (07/11/2023 9:27 AM CDT) [facility] N terminal Pro BNP Inpatient 152 [...] Bliss MD LAB - BLOOD RUBEN WARD [facility] Organization Address City/State/ZIP Co de Phone Number LABORATORY [facility] Acute Care Lab [address] Lab (1st floor, no room number) [place] [phone] * D dimer quantitative (07/11/2023 9:27 AM CDT) [facility] D-Dimer Quantitative 0.44 0.00 - 0.50 [...] out pulmonary embolism: The ADJUST-PE Study. LIONEL 2014;311:7275-7532.; HJ Tatiana et al. Diagnostic accuracy of conventional or age adjusted D-dimer cutoff values in older patients with suspected venous thromboembolism. Systemic review and meta-analysis. BMJ 2013:346:f2492. Amara Bliss MD LAB - BLOOD RUBEN WARD [facility] Care Lab [address] [employer] Lab (1st floor, no room number) [place] [phone] [place] [address] * Extra Blue Top Tube (07/11/2023 9:27 AM CDT) [facility] Hold Specimen [facility] 07/11/2023 10:46 AM CDT LABORATORY Blood VENOUS LINE / Unknown Venipuncture / Unknown 07/11/2023 9:27 AM CDT 07/11/2023 9:34 AM CDT Amara Bliss MD LAB - BLOOD RUBEN WARD [facility] Care Lab [address] Lab (1st floor, no room number) [address] * CBC with platelets and differential (07/11/2023 9:27 AM CDT) [facility] WBC Count 5.2 4.0 - 11.0 10e3/uL [...] MD LAB - BLOOD RUBEN WARD LABORATORY [facility] Care [facility] [address] Lab (1st floor, no room number) [place] [address] * Troponin T, High Sensitivity (07/11/2023 9:27 AM CDT) [facility] Troponin T, High Sensitivity <6 <=14 [...] MD LAB - BLOOD RUBEN WARD LABORATORY [facility] Acute Care Lab [address] Lab (1st floor, no room number) [place] [phone] * Lipase (07/11/2023 9:27 AM CDT) Lipase 44 13 - 60 U/L 07/11/2023 9:55 AM CDT [facility] LABORATORY Blood VENOUS LINE / Unknown Venipuncture / Unknown 07/11/2023 9:27 AM CDT 07/11/2023 9:34 AM CDT Amara Bliss MD LAB - BLOOD RUBEN WARD LABORATORY [facility] Acute Care Lab [address] Lab (1st floor, no room number) [place] [phone] * (ABNORMAL) Comprehensive metabolic panel (07/11/2023 9:27 [...] Amara Bliss MD LAB - BLOOD RUBEN WADR [facility] Organization Address City/State/ZIP Co de Phone Number [facility] LABORATORY [facility] Acute Care Lab [address] [facility] Lab (1st floor, no room number) [place] [address], [facility] * EKG 12-lead, tracing only (07/11/2023 9:01 AM CDT) Systolic Blood Pressure mmHg RADIOLOGY RESULTS Diastolic Blood Pressure mmHg RADIOLOGY RESULTS Ventricular Rate 60 BPM RAD IOLOGY RESULTS Atrial Rate 60 BPM RADIOLOG Y RESULTS GA Interval 162 ms RADIOLOG Y RESULTS QRS Duration 90 ms RADIOLO GY RESULTS QT 454 ms RADIOLOGY RESULTS QTc 454 ms RADIOLOGY RESULTS P [place] 70 degrees RADIOLOGY RESULTS R AXIS 9 degrees RADIOLOGY RESULTS T [place] 44 degrees RADIOLOGY RESULTS Interpretation ECG Sinus rhythm Cannot rule out Anterior infarct , age undetermined Abnormal ECG No previous ECGs available Unconfirmed report - interpretation of this ECG is computer generated - see medical record for final interpretation Confirmed by - EMERGENCY ROOM, PHYSICIAN ([id number]), non linear editor AL ROBERTS ([id number]) on 07/11/2023 9:18:08 AM RADIOLOGY RESULTS 07/11/2023 [...] 159/94) documented in this encounter Care Teams Forepart Laster Relationship Specialty Start Date End Date Tiffanie Mcgovern NP [address] [address] PCP - General 07/11/23 documented as of this encounter
--- OUTSIDE RECORDS SUMMARY | 2023-10-07 10:48 | XMS_ITS | Referral Summary ---
Author Organization [employer] Address [address] [place] [address] Care Team Providers Care Portfolio Strategist Name Role Phone Tiffanie Mcgovern NP Primary Care Provider Encounters Date Type Department Care Team Description 07/11/2023 Travel 07/11/2023 9:12 AM CDT - 07/11/2023 1:16 PM CDT Emergency [facility] Emergency Dept [address] [place] [phone] Amara Bliss MD Chest pain, unspecified type; [...] 12 months. ODIN FELICIANO MD SYSTEM ID: [id number] Narrative 07/11/2023 11:[address] AORTIC [...] 12 months. ODIN FELICIANO MD SYSTEM ID: [id number] Amara Bliss MD [facility] ORDERABLE S * Extra Red Top Tube (07/11/2023 9:27 AM CDT) Pathologist [facility] Hold Specimen [facility] 07/11/2023 11:01 AM CDT LABORATORY Blood VENOUS LINE / Unknown Venipuncture / Unknown 07/11/2023 9:27 AM CDT 07/11/2023 9:59 AM CDT Amara Bliss MD LAB - BLOOD RUBEN WARD [facility] Organization Address City/State/ZIP Co de Phone Number [facility] Acute Care Lab [address] Lab (1st floor, no room number) [place] [phone] * Extra Blue Top Tube (07/11/2023 9:27 AM CDT) Hold Specimen [facility] 07/11/2023 10:46 AM CDT RH LABORATORY Blood VENOUS LINE / Unknown Venipuncture / Unknown 07/11/2023 9:27 AM CDT 07/11/2023 9:34 AM CDT Amara Bliss MD LAB - BLOOD RBUEN WARD [facility] LABORATORY [facility] Lab [address] [employer] Lab (1st floor, no room number) [place] [phone] [place] [address] * CBC with platelets and differential (07/11/2023 9:27 AM CDT) [facility] Signature WBC Count 5.2 4.0 - [...] Bliss MD LAB - BLOOD ORDE [facility] Organization Address City/State/ZIP Co de Phone Number RH LABORATORY [facility] Acute Care Lab [address] Lab (1st floor, no room number) [place] [address], [facility] * Troponin T, High Sensitivity (07/11/2023 9:27 AM CDT) [facility] Troponin T, High Sensitivity <6 <=14 [...] Bliss MD LAB - BLOOD RUBEN WARD [facility] Acute [facility] Lab [address] Lab (1st floor, no room number) [place] [address] * BNP (07/11/2023 9:27 AM CDT) [facility] N terminal Pro BNP Inpatient 152 [...] - BLOOD RUBEN WARD Performing Organization Address City/[facility]/ZIP Co de Phone Number LABORATORY [facility] Acute [facility] Lab [address] Lab (1st floor, no room number) [place] [phone] [place] [address] * Lipase (07/11/2023 9:27 AM CDT) Lipase 44 13 - 60 U/L 07/11/2023 9:55 AM CDT LABORATORY Blood VENOUS LINE / Unknown Venipuncture / Unknown 07/11/2023 9:27 AM CDT 07/11/2023 9:34 AM CDT Amara Bliss MD LAB - BLOOD TRACYJared [facility] Performing Organization Address [facility]/ZIP Co de Phone Number LABORATORY [facility] Acute [facility] Lab [address] Lab (1st floor, no room number) [place] [phone] * D dimer quantitative (07/11/2023 9:27 [...] out pulmonary embolism: The ADJUST-PE Study. LIONEL 2014;311:0678-2461.; HJ Tatiana et al. Diagnostic accuracy of conventional or age adjusted D-dimer cutoff values in older patients with suspected venous thromboembolism. Systemic review and meta-analysis. BMJ 2013:346:f2492. Amara Bliss MD LAB - BLOOD RUBEN WARD RH LABORATORY [facility] Acute Care Lab [address] [facility] Lab (1st floor, no room number) [place] [address] * (ABNORMAL) Comprehensive metabolic panel (07/11/2023 9:27 AM CDT) [facility] Sodium 137 135 - 145 mmol/L [...] Bliss MD LAB - BLOOD RUBEN WARD [facility] Organization Address City/State/ZIP Co de Phone Number RH LABORATORY [facility] Acute [facility] Lab [address] Lab (1st floor, no room number) [place] [address], [place] * EKG 12-lead, tracing only (07/11/2023 9:01 AM CDT) Systolic Blood Pressure mmHg RADIOLOGY RESULTS Diastolic Blood Pressure mmHg RADIOLOGY RESULTS Ventricular Rate 60 BPM RAD IOLOGY RESULTS Atrial Rate 60 BPM RADIOLOG Y RESULTS [place] Interval 162 ms RADIOLOG Y RESULTS QRS Duration 90 ms RADIOLO GY RESULTS QT 454 ms RADIOLOGY RESULTS QTc 454 ms RADIOLOGY RESULTS P Hixson 70 degrees RADIOLOGY RESULTS R AXIS 9 degrees RADIOLOGY RESULTS T Hixson 44 degrees RADIOLOGY RESULTS Interpretation ECG Sinus rhythm Cannot rule out Anterior infarct , age undetermined Abnormal ECG No previous ECGs available Unconfirmed report - interpretation of this ECG is computer generated - see medical record for final interpretation Confirmed by - EMERGENCY ROOM, PHYSICIAN ([id number]), video effects editor AL ROBERTS ([id number]) on 07/11/2023 9:18:08 AM RADIOLOGY RESULTS 07/11/2023 [...] Recently Relevant to Health Maintenance Care Teams Portfolio Strategist Relationship Specialty Start Date End Date Tiffanie Mcgovern NP [address] [address] PCP - General 07/11/23
--- OUTSIDE RECORDS SUMMARY | 2023-10-07 10:48 | XMS_ITS | Encounter Summary ---
Author Organization [facility] er Address [address] [place] [address] Care Team Providers Care Technician Inventory Specialist Name Role Phone Tiffanie Mcgovern APRN, PICU NURSE Primary Care Provi rajni Reason for Visit * Reason Comments Med Refill Encounter Details Date Type Department Care Team (Late st Contact Info) Description 11/22/2021 Refill [place] [address] [address] Roopa Lopez MD 1705 [facility] [address] [place] [address] Postablative hypothyroidism Social History Tobacco Use Types [...] her refill requests to Dennis Mcgovern in [place]. Pt agreed. * Telephone Encounter - Alyce Shah - 11/26/2021 9:01 AM CDT Noted. * Telephone Encounter - Doris Garcia RN - 11/26/2021 8:34 AM CDT Left message on secured line for patient to contact PCP in [place] for refills and to advise pharmacy of [...] hypothyroidism documented in this encounter Care Teams Technician Inventory Specialist Relationship Specialty Start Date End Date iTffanie Mcgovern, SAFETY FIRE BOSS, PICU NURSE [address] [place] [address] PCP - General Family Medicine 02/27/21 documented as of this encounter
--- OUTSIDE RECORDS SUMMARY | 2023-10-07 10:48 | XMS_ITS | Encounter Summary ---
Author Organization [facility] er Address [address] [place] [address] Care Team Providers Care Worship Director Name Role Phone Tiffanie Mcgovern APRN, VP PUBLISHER DEVELOPMENT Primary Care Provi rajni Reason for Visit * Reason Comments Med Refill Encounter Details Date Type Department Care Team (Late st Contact Info) Description 12/28/2019 Refill [facility] [address] [place] [address] Valerie Major MD [address] [place] [phone] Edema, unspecified type Social History Tobacco Use [...] Rule Out 02/18/2020 02/18/2020 02/18/2020 4:41 PM CRM SPECIALIST COVID-19 Rule Out 02/27/2021 02/27/2021 02/27/2021 10:40 AM CRM SPECIALIST COVID-19 Confirmed 02/27/2021 02/27/2021 2 8:17 PM CDT documented as of this encounter Care Teams Worship Director Relationship Specialty Start Date End Date Tiffanie Mcgovern, FRENCH CORD BINDER, VP PUBLISHER DEVELOPMENT [address] [place] [address] PCP - General Family Medicine 02/27/21 documented as of this encounter
--- OUTSIDE RECORDS SUMMARY | 2023-10-07 10:48 | XMS_ITS | Encounter Summary ---
Author Organization [facility] Address [address] [place] [address] Care Team Providers Care Boring Machine Operator Name Role Phone Tiffanie Mcgovern [...] on filedocumented in this encounter Care Teams Boring Machine Operator Relationship Specialty Start Date End Date Tiffanie Mcgovern NP [address] [address] PCP - General 07/11/23 documented as of this encounter
--- OUTSIDE RECORDS SUMMARY | 2023-10-07 10:48 | XMS_ITS | Clinical Summary ---
Author Organization [facility] Address [address] [place] [address] Care Team Providers Care Relish Maker Name Role Phone Elsewhere, Pcp Primary Care Provider Unavailabl e Source Comments Patient records contain information from all sites at [facility]. For routine questions regarding patient records, call [phone] during business hours, M-F 8:00 AM - 5:00 PM Central Time. Record requests for emergency care only can be directed to [phone] at any time.[facility] Allergies Active Allergy Reactions Criticality Noted Date [...] unknown date of dx Aftercare Surgery Injury Encounters Date Type Department Care Team Description 09/30/2023 10:15 AM CDT Office Visit Division of Endocrinology in [place], [place] [address] [place] [address] Crystal Le M.D. Graves' Disease (Primary Dx) 09/30/2023 8:01 AM CDT - 09/30/2023 11:59 PM CDT Hospital Encounter Department of Laboratory Medicine and Pathology, [facility], in [place], [place] [address] [place] [address] Cyrstal Le M.D. Graves' Disease Discharge Disposition: Home or Self Care 09/26/2023 Orders Only Division of Endocrinology in [place], [place] [address] [place] [address] Crystal Le M.D. Graves' Disease (Primary Dx) 09/26/2023 Clinical Communication Division of Endocrinology in [place], [place] [address] [place] [address] Crystal Le M.D. 09/19/2023 Clinical Communication Primary Care on Demand at [facility] [address] [place] [address] Feliciano Robins M.D. 07/29/2023 Clinical Communication Primary Care on Demand at [facility] [address] [place] [address] Feliciano Robins M.D. 07/16/2023 [facility] AND [facility] [address] [place] [address] Tiffanie Mcgovern C.NSonjaP. Symptom Nervous System (Primary Dx) from Last 3 Months Immunizations Name Administration Dates Next Due HepB (discontinued) adolesce nt/high risk 09/27/2002,08/18/2002,05/19/2002,1998 HepB Adult 09/27/2002, 3,05/19/2002,1998 Influenza (IM) Preservative Free 12/22/2009 Influenza, Injectable, Mdck, Quadrivalent 12/05/2022 Influenza, Unspecified 12/04/2022 Tdap 08/29/2017,10/24/2005 influenza vaccine quad (FLUZONE/FLUARIX) (6 months and older)(PF) 01/12/2019,12/17/2016 Family History Medical History Relation Name Comments Hypertension Brother 1 Spencer Hypertension Brother 2 Conrado Miller Breast cancer Cousin Coronary artery disease Father Carlos Miller Peripheral vascular disease Father Carlos Miller Anesthesia problems Mother Shelia Miller Hypertension Mother Shelia Miller Hypothyroidism Mother Shelia Miller Migraines Mother Shelia Miller Thyroid disease Mother Shelia Miller Hypothyroidism Sister 1 Anxiety disorder Sister 2 Nuria Jurek Depression Sister 2 Nuria Jurek Migraines Sister 2 Nuria Jurek Psychiatric Sister 2 Nuria Jurek Suicide Attempts Sister 2 Nuria Jurek Thyroid disease Sister 2 Nuria Jurek Relation Name Status Comments Brother 1 Spencer Brother 2 Conrado Miller Cousin Other Father Carlos Miller Mother Shelia Miller Sister 1 Sister 2 Nuria Miller Social History Tobacco Use Types Packs/Day Years [...] week 06/22/2019 How often do you attend [facility] scient[facility] services? More than 4 times per year 06/22/2019 Do you belong to any clubs o r organizations such as yazidism groups, unions, fraternal [...] care, and heating? Not very hard 01/15/2023 [facility] of Occupat ional [facility] - Occupational Stress Questionnaire Answer Date Recorded [...] money to buy more. Never true 01/16/20 23 Within the past 12 months, t he [...] Date Recorded Nutrition: EVOO Fat Source Unknown 11/08 /2023 On average, how many serving s of [...] your living situation today? I have a [facility] place to live 01/15/2023 Education Answer Date Recorded What is the highest level of school you have completed or the highest degree you have received? Associate degree: academic program 06/22/2019 Sex and Gender Information Value Date Recorded Sex Assigned at Female 01/15/2023 10:13 AM FURNACE INSTALLER HELPER Gender Identity Female 01/15/2023 10:13 AM FURNACE INSTALLER HELPER Sexual Orientation Straight 01/15/2023 10 :13 AM FURNACE INSTALLER HELPER Last Filed Vital Signs Vital Sign Reading [...] 09/30/2023 9:53 AM CDT Plan of Treatment Health Maintenance Due Date Last Done Comments CT Colonography 1969 Colonoscopy 1969 Depression Monitoring (PHQ-9) 1969 FIT 1969 HIV Screening 1969 Hepatitis C Screening 1969 Zoster Vaccines (1 of 2) 08/16/2019 Mammogram 11/07/2020 11/08/2019, 10/09, 10/27/2018, Additional history exists COVID-19 Vaccine ( season) 2022 05/03/2020, 04/05/2020 Cologuard 05/12/2023 05/11/2020 Colorectal Cancer Screening 05/12/2023 Influenza Vaccine (#1) 2023 , 12/04/2022, 01/12/2019, Additional history exists Office Visit for Blood Pressure Check / Re-check 09/29/2024 09/30/2023 Thyroid Stimulating Hormone (TSH) test for thyroid function 09/29/2024 09/30/2023, 01/17/2023, 02/21/2021, Additional history exists Lipid (Cholesterol) Screening 06/27/2025 06/27/2020, 12/14/2018, 08/29/2017, Additional history exists Fasting Glucose for Diabetes Screening 07/10/2026 07/11/2023, 06/18/2021, 06/27/2020, Additional history exists DTaP,Tdap,and Td Vaccines (3 - Td or Tdap) 08/30/2027 08/29/2017, 10/24/2005 Hepatitis B Vaccines Completed 09/27/2002, 09/27/2002, 08/18/2002, Additional history exists Pneumococcal vaccine (0-64 years) Aged Out No longer eligible based on [...] M.D. LAB BLOOD ADD-ON Performing Organization Address [facility] Co de Phone Number [facility] [address] [place] [address] * T4 (Thyroxine), Free (09/30/2023 8:15 AM CDT) T4 (Thyroxine), Free, S 1.1 0.9 - 1.7 ng/dL 09/30/2023 9:25 AM CDT DT Blood (Blood, Venous) 09/30/2023 8:15 AM CDT 09/30/2023 8:53 AM CDT Crystal Le M.D. LAB BLOOD ADD-ON Performing Organization Address [facility] Co de Phone Number [facility] [address] [place] [address], [place] [address] * MRI-Brain W/O-Outside MR Neuro (07/24/2023 6:05 [...] Not In System IMG MRI PROCEDURE S IIMS NA * BI Breast Screening Bilateral [...] BI-RADS: 1: Negative. Paul Abarca M.D., Ph.D. [facility] BI PROCEDUR ES * (ABNORMAL) Lipid Panel (06/17/2013 7:55 [...] 3 POWERCHART Blood 06/17/2013 7:55 AM CDT Tiffanie Munoz APRN, C.N.P., D.N.P. LAB BLOOD ADD-ON POWERCHART from Last 3 Months or Most Recently Relevant to Health Maintenance Care Teams Relish Maker Relationship Specialty Start Date End Date Elsewhere, Pcp PCP - General Internal Medicine 06/18/21
--- OUTSIDE RECORDS SUMMARY | 2023-10-07 10:48 | XMS_ITS | Encounter Summary ---
Author Organization [facility] er Address [address] [place] [address] Care Team Providers Care Device Processing Engineer Name Role Phone Tiffanie Mcgovern GRADE SCHOOL TEACHER, COPPER MINER BLASTING Primary Care Provi rajni Reason for Visit * Reason Comments Med Refill Encounter Details Date Type Department Care Team (Late st Contact Info) Description 09/02/2018 Refill [place] [address] [place] [address] Tiffanie Mcgovern, GRADE SCHOOL TEACHER, COPPER MINER BLASTING [address] [place] [address] Hyperlipidemia, unspecified hyperlipidemia type (Primary Dx) Social [...] Out 02/18/2020 02/18/2020 02/18/2020 4:41 PM SENIOR CAREGIVER COVID-19 Rule Out 02/27/2021 02/27/2021 02/27/2021 10:40 AM SENIOR CAREGIVER COVID-19 Confirmed 02/27/2021 02/27/2021 2 8:17 PM CDT documented as of this encounter Care Teams Device Processing Engineer Relationship Specialty Start Date End Date Tiffanie Mcgovern APRN, KYLE [address] [facility] [address] PCP - General Family Medicine 02/27/21 documented as of this encounter"
--- OUTSIDE RECORDS SUMMARY | 2023-10-07 10:48 | XMS_ITS | Encounter Summary ---
Author Organization [facility] er Address [address] [place] [address] Care Team Providers Care Mid Level Java Developer Name Role Phone Mynor Mcgovern APRN, WHEELCHAIR DRIVER Primary Care Provi rajni Reason for Visit * Reason Comments Med Refill Encounter Details Date Type Department Care Team (Late st Contact Info) Description 08/20/2021 Refill [place] [address] [address] Roopa Lopez MD 1705 [facility] [address] [place] [address] GUSTAVO (generalized anxiety disorder) Social History Tobacco [...] disorder documented in this encounter Care Teams Mid Level Java Developer Relationship Specialty Start Date End Date Mynor Mcgovern APRN, WHEELCHAIR DRIVER [address] [place] [address] PCP - General Family Medicine 02/27/21 documented as of this encounter
--- OUTSIDE RECORDS SUMMARY | 2023-10-07 10:48 | XMS_ITS | Encounter Summary ---
Author Organization [facility] er Address [address] [place] [address] Care Team Providers Care Field Merchandiser Name Role Phone Tiffanie Mcgovern APRN, POCKET FLAP CREASING MACHINE OPERATOR Primary Care Provi rajni Encounter Details Date Type Department Care Team (Late st Contact Info) Description 12/06/2019 Telephone [place] [address] [place] [address] Roopa Lopez MD 1705 [facility] [address] [place] [address] Social History Tobacco Use Types Packs/Day Years [...] Rule Out 02/18/2020 02/18/2020 02/18/2020 4:41 PM BLOCKER HAND COVID-19 Rule Out 02/27/2021 02/27/2021 02/27/2021 10:40 AM BLOCKER HAND COVID-19 Confirmed 02/27/2021 02/27/2021 8:17 PM CDT documented as of this encounter Care Teams Field Merchandiser Relationship Specialty Start Date End Date Tiffanie Mcgovern, INFORMATION AND REFERRAL DIRECTOR, POCKET FLAP CREASING MACHINE OPERATOR [address] [facility] [place] [address] PCP - General Family Medicine 02/27/21 documented as of this encounter
--- OUTSIDE RECORDS SUMMARY | 2023-10-07 10:49 | XMS_ITS | Encounter Summary ---
Author Organization [facility] Address [address] [place] [address] Care Team Providers Care Water Rights Specialist Name Role Phone Elsewhere, Pcp Primary Care Provider Unavailabl e Reason for Referral * Outpatient (Routine) - Authorized Specialty Diagnoses / Procedures Referred By Tyrone t Referred To Contact Neurology Diagnoses Symptom Nervous System Tiffanie Mcgovern, C.N.P. [address] [place] [address] [facility] Referral ID Status Reason Start Date Expiration Date V isits Requested Visits Authorized [id number] Authorized 07/16/2023 01/14/2025 1 1 Encounter Details Date Type Department Care Team (Late st Contact Info) Description 07/16/2023 [facility] AND [facility] [address] [place] [address] Tiffanie Mcgovern, C.N.P. [address] [place] [phone] Symptom Nervous System (Primary Dx) Social History Tobacco Use Types Packs/Day Years Used Date Smoking Tobacco: Former Cigarettes 0.3 13 0 03/10/1984 - 03/10/1997 Smokeless Tobacco: Never Comments:occasional pack/yea r Alcohol Use Standard Drinks/Week Comments Yes 2 [...] often do you attend chur ch or taoism services? More than 4 times per year 06/22/2019 Do you belong to any clubs o r organizations such as rastafarian groups, unions, fraternal [...] care, and heating? Not very hard 01/15/2023 [facility] [place] [facility] of Occupat ional Health - Occupational Stress [...] your living situation today? I have a [facility] place to live 01/15/2023 Education Answer Date Recorded What is the highest level of school you have completed or the highest degree you have received? Associate degree: academic program 06/22/2019 Sex and Gender Information Value Date Recorded Sex Assigned at Female 01/15/2023 10:13 AM PAN SHOVER Gender Identity Female 01/15/2023 10:13 AM PAN SHOVER Sexual Orientation Straight 01/15/2023 10 :13 AM PAN SHOVER documented as of this encounter Plan of Treatment Scheduled Referrals Name Type Priority Associated Diagnoses Orde r Schedule Neurology Referral Outpatient Referral Routine Symptom Nervous System Expected: 07/16/2023 (Approximate), Expires: 10/15/2024 documented as of this encounter Visit Diagnoses Diagnosis Symptom Nervous System- Primary documented in this encounter Additional Health Concerns Assessment Noted Time PHQ-9 Depression Total Score: 3 09/15/19 16 2:08 PM CDT documented as of this encounter Care Teams Water Rights Specialist Relationship Specialty Start Date End Date Elsewhere, Pcp PCP - General Internal Medicine 06/18/21 documented as of this encounter
--- OUTSIDE RECORDS SUMMARY | 2023-10-07 10:49 | XMS_ITS | Encounter Summary ---
Author Organization [facility] Address [address] [place] [address] Care Team Providers Care Rib Builder Name Role Phone Elsewhere, Pcp Primary Care Provider Unavailabl e Encounter Details Date Type Department Care Team (Late st Contact Info) Description 07/29/2023 Clinical Communication Primary Care on Demand at [facility] [address] [place] [address] Feliciano Robins M.D. [address] [place] [address] Social History Tobacco Use Types Packs/Day Years [...] often do you attend chur ch or worship services? More than 4 times per year 06/22/2019 Do you belong to any clubs o r organizations such as mandaen groups, unions, fraternal [...] care, and heating? Not very hard 01/15/2023 [facility] [place] of Occupat ional Health - Occupational Stress [...] your living situation today? I have a [facility] place to live 01/15/2023 Education Answer Date Recorded What is the highest level of school you have completed or the highest degree you have received? Associate degree: academic program 06/22/2019 Sex and Gender Information Value Date Recorded Sex Assigned at Female 01/15/2023 10:13 AM INSPECTOR BICYCLE Gender Identity Female 01/15/2023 10:13 AM INSPECTOR BICYCLE Sexual Orientation Straight 01/15/2023 10 :13 AM INSPECTOR BICYCLE documented as of this encounter Plan of Treatment Not on file documented as of this encounter Visit Diagnoses Not on filedocumented in this encounter Additional Health Concerns Assessment Noted Time PHQ-9 Depression Total Score: 3 09/15/19 16 2:08 PM CDT documented as of this encounter Care Teams Rib Builder Relationship Specialty Start Date End Date Elsewhere, Pcp PCP - General Internal Medicine 06/18/21 documented as of this encounter
--- OUTSIDE RECORDS SUMMARY | 2023-10-07 10:49 | XMS_ITS | Encounter Summary ---
Author Organization [facility] Address [address] [place] [address] Care Team Providers Care Home Staging Specialist Name Role Phone Elsewhere, Pcp Primary Care Provider Unavailabl e Reason for Referral * Outpatient (Routine) - Authorized Specialty Diagnoses / Procedures Referred By Tyrone ogden Referred To Contact Ophthalmology Diagnoses Graves' Disease Crystal Le M.D. [address] [place] [address] [facility] Referral ID Status Reason Start Date Expiration Date V isits Requested Visits Authorized [id number] Authorized 09/30/2023 03/31/2025 1 1 Scheduling Instructions Please bunch when she is here for Rheum appts in Jan 2024. 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 [address] [place] [address] [place] MESA [phone] Referral ID Status Reason Start Date Expiration Date Visits Re quested Visits Authorized [id number] Closed 09/02/2023 09/01/2024 1 1 Encounter Details Date Type Department Care Team (Latest Contact Info) Description 09/30/2023 10:15 AM CDT Office Visit Division of Endocrinology in [place], [place] [address] [place] [phone] Crystal Le M.D. [address] [place] [address] Graves' Disease (Primary Dx) Social History Tobacco Use Types [...] often do you attend chur ch or samaritan services? More than 4 times per year 06/22/2019 Do you belong to any clubs o r organizations such as restorationism groups, unions, fraternal [...] care, and heating? Not very hard 01/15/2023 [facility] [place] of Occupat ional Health - Occupational Stress [...] your living situation today? [facility] 01/15/2023 Education Answer Date Recorded What is the highest level of school you have completed or the highest degree you have received? Associate degree: academic program 06/22/2019 Sex and Gender Information Value Date Recorded Sex Assigned at Female 01/15/2023 10:13 AM DISPATCHER ELECTRIC POWER Gender Identity Female 01/15/2023 10:13 AM DISPATCHER ELECTRIC POWER Sexual Orientation Straight 01/15/2023 10 :13 AM DISPATCHER ELECTRIC POWER documented as of this encounter Last Filed Vital Signs Vital Sign Reading Time Taken Comments Blood Pressure 137/76 09/30/2023 9:53 AM CDT Pulse 68 09/30/2023 9:53 AM CDT Temperature - - Respiratory Rate - - Oxygen Saturation - - Inhaled Oxygen Concentration - - Weight 90.7 kg (199 lb 15.3 oz) 09/30/2023 9:53 AM CDT Height 174.9 cm (5' 8.86) 09/30/2023 9:53 AM CD T Body Mass Index 29.65 09/30/2023 9:53 AM CDT documented in this encounter Consult Notes * Crystal Le M.D. - 09/30/2023 10:15 AM CDT SUBJECTIVE Referred by Dr. Garcia, Rheumatology CHIEF COMPLAINT / REASON FOR VISIT Laura Novak is a 53 y.o. female who presents for a consult on hypothyroidism. HISTORY OF PRESENT ILLNESS Per Dr. Le on 10-11-22: Supervisory note for Dr. Shah. I agree with excellent history, physical, impression, report, and plan. She is a 52yof from [place], [place]. She has h/o Graves treated c SO in 07/2019 after that developed Hypothyroidism, was on Levothyroxine 100 c suppressed TSH of 0.013 in July 2022, then decreased dose down to 88 mcg a day and with this dose the TSH is 1.5 from 09-24-22; normal-excellent! Physical exam: Skin: no thyroid dermopathy. Thyroid: Barely palpable 10g thyroid gland easily mobile with swallowing (excellent SO effect). Lymph: No cervical or supraclavicular lymphadenopathy. Ext: some swelling, tenderness and limited ROM fingers both hands, possible Calcinosis, possible telangiectasia L. #1. Hypothyroidism after SO treatment for Graves disease Continue with Levothyroxine 88mcg a day, the TSH is normal. #2. Possible scleroderma or inflammatory arthritis. Will check many of the rosa and defer to Rheumatology for further eval and treatment. Will check Celiac disease screen as well. She had a positive RNA polymerase III rosa 25.1 (less than 20 is negative);defer to Rheum. Per Dr. Le on 09-30-23 for a face to face visit: Reviewed labs in detail with her today. She was on Levothyroxine 100mcg po daily and 1 1/2 tabs on Friday and 8 weeks ago her Tsh was suppressed to 0.09. So dose was changed down to Levothyroxine 75mcg po daily. Currently her TSH is 3.2 and fT4 is 1.1, these are both normal, so continue Levothyroxine 75mcg po daily. She is still complaining of diffuse body pains, aches, joint swelling, etc-defer to Rheumatology visit in January of this year 2023. She saw a local eye doctor for eye exam which was Negative. Patient is compliant with thyroid hormone therapy. Patient takes thyroid hormone as directed on any empty stomach (no food x 2-3 hrs beforehand), alone without other meds and supplements and waits 30-60 minutes until eating/drinking or taking other med. The following portions of the patient's history were reviewed and updated as appropriate: allergies, current medications, family history, medical history, social history, surgical history, and problem list. REVIEW OF SYSTEMS All other systems reviewed and are negative. OBJECTIVE PHYSICAL EXAM Physical Exam Vital Signs: BP 137/76 (BP Location: Right arm, Patient Position: Sitting, Cuff Size: Regular) Pulse 68 Ht 174.9 cm Wt 90.7 kg BMI 29.65 kg/m?? General: Normal mood; well nourished; appears to be in no acute distress. Cool brown purse from [employer]! Skin: No xanthomas or xanthelasmas. HEENT: NC/AT, PERRL, normal oropharynx; EOMI. Thyroid: Barely palpable thyroid gland Lymph: No cervical or supraclavicular lymphadenopathy. Lungs: Chest clear to auscultation, normal respirations. Heart: Normal rate, regular rhythm, normal heart sounds and no murmur, rub or gallop. Abdomen: Normal bowel sounds; palpation normal, no tenderness and no distension. Extremities: No clubbing, cyanosis or edema. Neuro: Grossly non-focal, upper extremity tremor not present. Spine: No tenderness to palpation or percussion along the spine. Gait: Normal. Diagnostics: Lab Results Component Value Date TSH 3.2 09/30/2023 FREET4 1.1 09/30/2023 ASSESSMENT / PLAN #1. Graves s/p SO 07/2019 (Hypothyroidism s/p SO 07/2019) TSH is normal at 3.2 on Levothyroxine 75mcg po daily, continue the same. Can f/u c local PCP. [facility] January when she returns to see Rheum. TT: 41 CT: 31 documented in this encounter Plan of Treatment Scheduled Referrals Name Type Priority Associated Diagnoses Order Schedule Ophthalmology - Thyroid eye disease consult (clinic) Outpatient Referral Routine Graves' Disease Expected: 12/31/2023, Expires: 12/30/2024 documented as of this encounter Visit Diagnoses Diagnosis Graves' Disease- Primary documented in this encounter Additional Health Concerns Assessment Noted Time PHQ-9 Depression Total Score: 3 09/15/19 16 2:08 PM CDT documented as of this encounter Care Teams Home Staging Specialist Relationship Specialty Start Date End Date Elsewhere, Pcp PCP - General Internal Medicine 06/18/21 documented as of this encounter
--- OUTSIDE RECORDS SUMMARY | 2023-10-07 10:49 | XMS_ITS | Encounter Summary ---
Author Organization [facility] Address [address] [place] [address] Care Team Providers Care Workers Compensation Paralegal Name Role Phone Elsewhere, Pcp Primary Care Provider Unavailabl e Encounter Details Date Type Department Care Team (Latest Contact Info) Description 09/30/2023 8:01 AM CDT - 09/30/2023 11:59 PM CDT Hospital Encounter Department of Laboratory Medicine and Pathology, [facility] in [place], [place] [address] [place] [address] Rey, Crystal Butts M.D. [address] [place] [address] Graves' Disease Discharge Disposition: Home or Self Care Social [...] often do you attend chur ch or tenriism services? More than 4 times per year 06/22/2019 Do you belong to any clubs o r organizations such as anabaptism groups, unions, fraternal [...] care, and heating? Not very hard 01/15/2023 [facility] of Occupat ional Health - Occupational [...] Sex Assigned at Female 01/15/2023 10:13 AM CASH MANAGER Gender Identity Female 01/15/2023 10:13 AM CASH MANAGER Sexual Orientation Straight 01/15/2023 10 :13 AM CASH MANAGER documented as of this encounter Medications at Time of Discharge Medication Sig Dispensed Refills Start Date End Date cetirizine (ZyrTEC) 10 mg tablet Take 1 tablet by mouth daily. 12/30/2022 DULoxetine (Cymbalta) [address] capsule 08/25/2023 levothyroxine (SYNTHROID, LEVOTHROID) 100 mcg tablet TAKE ONE TABLET BY MOUTH DAILY - 6 DAYS OF THE WEEK FROM FRIDAY THRU FRIDAY , AND TAKE ONE AND ONE-HALF TABLETS ON FRIDAY. 06/11/2021 LORazepam (ATIVAN) 0.5 mg tablet Take 0.5 mg by mouth daily as needed. 04/02/2019 methocarbamoL (Robaxin) 500 mg tablet [METHOCARBAMOL (ROBAXIN) 500 MG TABLET] 1-2 tabs po q HS. May cause drowsiness. Do not drive while taking this medication. 06/03/2017 phentermine 30 mg capsule Take 30 mg by mouth every morning. simvastatin (ZOCOR) 20 mg tablet Take 20 mg by mouth daily. 09/04/2018 tiZANidine (Zanaflex) 2 mg tablet [TIZANIDINE (ZANAFLEX) 2 MG TABLET] TAKE ONE TO TWO TABLETS (2 TO 4 MG TOTAL) BY MOUTH TWICE DAILY NEEDED FOR MUSCLE SPASMS 09/07/2018 traMADoL (ULTRAM) 50 mg tablet 09/30/2022 traZODone (DESYREL) 50 mg tablet Take 50 mg by mouth Medrol Dose Pack scheduling ONLY. 08/12/2018 verapamil (VERELAN) 240 mg 24 hr capsule Take 240 mg by mouth daily. 09/02/2018 ZOLMitriptan (ZOMIG) 5 mg tablet May take one at the start of a migraine and repeat in 2 hours if needed. No more than 2 in 24 hours or 4 in a week 10/10/2020 documented as of this encounter Plan of Treatment Not on file documented as of this encounter Procedures Procedure Name Priority Date/Time Associated Diagnosis Comments THYROID-STIMULATING HORMONE-SENSITIVE (S-TSH) Routine 09/30/2023 8:15 AM CDT Graves' Disease T4 (THYROXINE), FREE, S Routine 09/30/2023 8:15 AM CDT Graves' Disease documented in this encounter Results * T4 (Thyroxine), Free (09/30/2023 8:15 AM CDT) T4 (Thyroxine), Free, S 1.1 0.9 - 1.7 ng/dL 09/30/2023 9:25 AM CDT DTL Blood (Blood, Venous) 09/30/2023 8:15 AM CDT 09/30/2023 8:53 AM CDT Narrative Authorizing Provider Result Butch Le M.D. LAB BLOOD ADD-ON [facility] [address] [place] [address], [facility] [address] [place] [address] * S-TSH (Thyroid-Stimulating Hormone - Sensitive) (09/30/2023 8:15 AM CDT) TSH, Sensitive 3.2 0.3 - 4.2 mIU/L 09/30/2023 9:25 AM CDT DTL Blood (Blood, Venous) 09/30/2023 8:15 AM CDT 09/30/2023 8:53 AM CDT Crystal Le M.D. LAB BLOOD ADD-ON [facility] [address] [place] [address], [facility] DTL [facility] [address] [place] [address] documented in this encounter Visit Diagnoses Diagnosis Graves' Disease documented in this encounter Additional Health Concerns Assessment Noted Time PHQ-9 Depression Total Score: 3 09/15/19 16 2:08 PM CDT documented as of this encounter Care Teams Workers Compensation Paralegal Relationship Specialty Start Date End Date Elsewhere, Pcp PCP - General Internal Medicine 06/18/21 documented as of this encounter
--- OUTSIDE RECORDS SUMMARY | 2023-10-07 10:49 | XMS_ITS | Encounter Summary ---
Author Organization [facility] Address [address] [place] [address] Care Team Providers Care Ed Teacher Name Role Phone Elsewhere, Pcp Primary Care Provider Unavailabl e Encounter Details Date Type Department Care Team (Late st Contact Info) Description 09/26/2023 Orders Only Division of Endocrinology in [place], [place] [address] [place] [phone] ReyCrystal M.D. [address] [place] [address] Graves' Disease (Primary Dx) Social History Tobacco [...] often do you attend chur ch or voodoo services? More than 4 times per year 06/22/2019 Do you belong to any clubs o r organizations such as mormonism groups, unions, fraternal [...] care, and heating? Not very hard 01/15/2023 [facility] [place] of Occupat ional Health - Occupational Stress [...] Sex Assigned at Female 01/15/2023 10:13 AM RADIATION ENGINEER Gender Identity Female 01/15/2023 10:13 AM RADIATION ENGINEER Sexual Orientation Straight 01/15/2023 10 :13 AM RADIATION ENGINEER documented as of this encounter Plan of Treatment Not on file documented as of this encounter Results * T4 (Thyroxine), Free (09/30/2023 8:15 AM CDT) T4 (Thyroxine), Free, S 1.1 0.9 - 1.7 ng/dL 09/30/2023 9:25 AM CDT DTL Blood (Blood, Venous) 09/30/2023 8:15 AM CDT 09/30/2023 8:53 AM CDT Narrative Authorizing Provider Result Butch Le M.D. LAB BLOOD ADD-ON Performing Organization Address City/[facility]/ZIP Co de Phone Number [facility] [address] [place] [address], [facility] [address] [place] [address] * S-TSH (Thyroid-Stimulating Hormone - Sensitive) (09/30/2023 8:15 AM CDT) TSH, Sensitive 3.2 0.3 - 4.2 mIU/L 09/30/2023 9:25 AM CDT DTL Blood (Blood, Venous) 09/30/2023 8:15 AM CDT 09/30/2023 8:53 AM CDT Narrative Authorizing Provider Result Butch Le M.D. LAB BLOOD ADD-ON Performing Organization Address City/[facility]/ZIP Co de Phone Number [facility] [address] [place] [address], [facility] DTL [facility] [address] [place] [address] documented in this encounter Visit Diagnoses Diagnosis Graves' Disease- Primary documented in this encounter Additional Health Concerns Assessment Noted Time PHQ-9 Depression Total Score: 3 09/15/19 16 2:08 PM CDT documented as of this encounter Care Teams Ed Teacher Relationship Specialty Start Date End Date Elsewhere, Pcp PCP - General Internal Medicine 06/18/21 documented as of this encounter
--- OUTSIDE RECORDS SUMMARY | 2023-10-07 10:49 | XMS_ITS | Encounter Summary ---
Author Organization [facility] Address [address] [place] [address] Care Team Providers Care Guest Relations Coordinator Name Role Phone Elsewhere, Pcp Primary Care Provider Unavailabl e Encounter Details Date Type Department Care Team (Late st Contact Info) Description 09/19/2023 Clinical Communication Primary Care on Demand at [facility] [address] [place] [address] Feliciano Robins M.D. [address] [place] [address] Social History Tobacco Use Types [...] care, and heating? Not very hard 01/15/2023 [facility] [place] of Occupat ional Health - Occupational Stress [...] Sex Assigned at Female 01/15/2023 10:13 AM FOOD AND BEVERAGE ORDER CLERK Gender Identity Female 01/15/2023 10:13 AM FOOD AND BEVERAGE ORDER CLERK Sexual Orientation Straight 01/15/2023 10 :13 AM FOOD AND BEVERAGE ORDER CLERK documented as of this encounter Plan of Treatment Not on file documented as of this encounter Visit Diagnoses Not on filedocumented in this encounter Additional Health Concerns Assessment Noted Time PHQ-9 Depression Total Score: 3 09/15/19 16 2:08 PM CDT documented as of this encounter Care Teams Guest Relations Coordinator Relationship Specialty Start Date End Date Elsewhere, Pcp PCP - General Internal Medicine 06/18/21 documented as of this encounter
--- OUTSIDE RECORDS SUMMARY | 2023-10-07 10:49 | XMS_ITS ---
Author Organization [facility] Address [address] [place] [address] Care Team Providers Care Reference Services Head Name Role Phone Unavailable Unavailable Unavailable Surgery Details Not on file Complications Check Surgery Details section. Procedure Estimated Blood Loss Check Surgery Details section. Procedure Findings Check Surgery Details section. Procedure Specimens Taken Check Surgery Details section.
--- OUTSIDE RECORDS SUMMARY | 2023-10-07 10:49 | XMS_ITS | Encounter Summary ---
Author Organization [facility] Address [address] [place] [address] Care Team Providers Care Inspector And Sorter Name Role Phone Elsewhere, Pcp Primary Care Provider Unavailabl e Encounter Details Date Type Department Care Team (Latest Contact Info) Description 09/26/2023 Clinical Communication Division of Endocrinology in [place], [place] [address] [place] [address] Crystal Le M.D. [address] [place] [address] Social History Tobacco Use Types Packs/Day Years [...] often do you attend chur ch or rastafarian services? More than 4 times per year 06/22/2019 Do you belong to any clubs o r organizations such as jew groups, unions, fraternal [...] care, and heating? Not very hard 01/15/2023 [facility] of Occupat ional Health - Occupational Stress [...] Answer Date Recorded Dental: Regular Dentist Yes 11/08/20 23 Employment Answer Date Recorded Employment status Employed [...] Sex Assigned at Female 01/15/2023 10:13 AM JERKER Gender Identity Female 01/15/2023 10:13 AM JERKER Sexual Orientation Straight 01/15/2023 10 :13 AM JERKER documented as of this encounter Plan of Treatment Not on file documented as of this encounter Visit Diagnoses Not on filedocumented in this encounter Additional Health Concerns Assessment Noted Time PHQ-9 Depression Total Score: 3 09/15/19 16 2:08 PM CDT documented as of this encounter Care Teams Inspector And Sorter Relationship Specialty Start Date End Date Elsewhere, Pcp PCP - General Internal Medicine 06/18/21 documented as of this encounter
--- NOTE | 2023-10-07 11:50 | W.ANESCHARGE ---
Anesthesia Charges Start Date/Time Anesthesia Start Date: 10/07/23 Anesthesia Start Time: 11:51 Stop Date/Time Anesthesia Stop Date: 10/07/23 Anesthesia Stop Time: 12:18
--- NOTE | 2023-10-07 12:21 | W.ANESCHARGE ---
Anesthesia Charges Start Date/Time Anesthesia Start Date: 10/07/23 Anesthesia Start Time: 11:51 Stop Date/Time Anesthesia Stop Date: 10/07/23 Anesthesia Stop Time: 12:18
== END 2023-10-07 10:27 | disposition home or self-care (01) ==
LOC: OP CLINIC 10:26
PROVIDERS: PCP Nurse Practitioner Family; Visit Provider Surgery
DX: R13.10 Dysphagia, unspecified (principal); K22.89 Other specified disease of esophagus; K31.89 Other diseases of stomach and duodenum; K44.9 Diaphragmatic hernia without obstruction or gangrene
CPT/HCPCS: 00731; 43239; 88305; 88342; J2704; J3490

== ENCOUNTER 2023-11-17 08:30 | Outpatient (CLI) | payer OTHER, SELFPAY ==
--- OUTSIDE RECORDS SUMMARY | 2023-11-17 08:33 | XMS_ITS | Referral Summary ---
Author Organization [facility] Address [address] [place] [address] Care Team Providers Care Antenna Specialist Name Role Phone Tiffanie Mcgovern NP Primary [...] Procedure Name Priority Date/Time Associated Diagnosis Comments COMPREHENSIVE METABOLIC PANEL STAT 07/11/2023 9:27 AM CDT MA SCREENING BILATERAL W/ CANDY Routine 10/27/2018 7:45 AM CDT Screening mammogram, encounter for from Last 3 Months or Most Recently Relevant to Health Maintenance Results * (ABNORMAL) Comprehensive metabolic panel (07/11/2023 9:27 AM CDT) [facility] Sodium 137 135 - 145 mmol/L [...] 0.5 <=1.2 mg/dL 07/11/2023 9:55 AM CDT LABORATORY Blood VENOUS LINE / Unknown Venipuncture / Unknown 07/11/2023 9:27 AM CDT 07/11/2023 9:34 AM CDT Amara Bliss MD LAB - BLOOD ORDJared WARD [facility] [address] Lab (1st floor, no room number) [place] [address], [facility] * MA Screen Bilateral w/Candy (10/27/2018 7:45 AM CDT) Anatomical Region Laterality [...] 1: Negative Tiffanie Mcgovern NP IMG MAMMOGRAPHY ORDJared WARD from Last 3 Months or Most Recently Relevant to Health Maintenance Care Teams Antenna Specialist Relationship Specialty Start Date End Date Tiffanie Mcgovern NP [address] [address] PCP - General 07/11/23
--- OUTSIDE RECORDS SUMMARY | 2023-11-17 08:33 | XMS_ITS | Clinical Summary ---
Author Organization [facility] Address [address] [place] [address] Care Team Providers Care Spa Manager Name Role Phone Tiffanie Mcgovern NP [...] MUSCLE SPASMS 30 tablet 0 09/07/2018 Active Family History Medical History Relation Comments Breast [...] history exists YEARLY PREVENTIVE VISIT 04/27/2021 04/27/2020 PHQ-2 (once per calendar year) 2023 COVID-19 Vaccine ( season) 2023 05/03/2020, 04/05/2020 INFLUENZA VACCINE (#1) 2023 3, 01/12/2019, 12/17/2016, Additional history exists GLUCOSE 07/10/2026 [...] 9:27 AM CDT MA SCREENING BILATERAL W/ ROD [...] AM CDT 07/11/2023 9:34 AM CDT Amara Jessica Jonkman MD LAB - BLOOD RUBEN WARD [facility] [address] [facility] Lab (1st floor, no room number) [place] [address], [facility] * MA Screen Bilateral w/Rod (10/27/2018 7:45 [...] BI-RADS Category 1: Negative Tiffanie Mcgovern NP IMMary MAMMOGRAPHY RUBEN WRAD from Last 3 Months or Most Recently Relevant to Health Maintenance Care Teams Spa Manager Relationship Specialty Start Date End Date Tiffanie Mcgovern NP [address] [address] PCP - General 07/11/23
--- OUTSIDE RECORDS SUMMARY | 2023-11-17 08:34 | XMS_ITS | Encounter Summary ---
Author Organization [facility] Address [address] [place] [address] Care Team Providers Care Heavy Equipment Field Mechanic Name Role Phone Elsewhere, Pcp Primary Care Provider Unavailabl e Encounter Details Date Type Department Care Team (Late st Contact Info) Description 07/29/2023 Clinical Communication Primary Care on Demand at [facility] [address] [place] [address] Feliciano Robins M.D. [address] [place] [address] Social History Tobacco Use Types [...] often do you attend chur ch or latter day services? More than 4 times per year 06/22/2019 Do you belong to any clubs o r organizations such as denominational groups, unions, fraternal [...] care, and heating? Not very hard 01/15/2023 [facility] [place] of Occupat ional Health - Occupational Stress [...] Sex Assigned at Female 01/15/2023 10:13 AM PHARMACY BENEFITS COORDINATOR Gender Identity Female 01/15/2023 10:13 AM PHARMACY BENEFITS COORDINATOR Sexual Orientation Straight 01/15/2023 10 :13 AM PHARMACY BENEFITS COORDINATOR documented as of this encounter Plan of Treatment Not on file documented as of this encounter Visit Diagnoses Not on filedocumented in this encounter Additional Health Concerns Assessment Noted Time PHQ-9 Depression Total Score: 3 09/15/19 16 2:08 PM CDT documented as of this encounter Care Teams Heavy Equipment Field Mechanic Relationship Specialty Start Date End Date Elsewhere, Pcp PCP - General Internal Medicine 06/18/21 documented as of this encounter
--- OUTSIDE RECORDS SUMMARY | 2023-11-17 08:34 | XMS_ITS | Encounter Summary ---
Author Organization [facility] Address [address] [place] [address] Care Team Providers Care Fresh Food Manager Name Role Phone Tiffanie Mcgovern APRN, CHOCOLATE MAKER Primary Care Provi rajni Encounter Details Date Type Department Care Team (Late st Contact Info) Description 12/06/2019 Telephone [place] [address] [place] [address] Roopa Lopez MD [address] [facility] [address] [place] [address] Social History Tobacco Use Types Packs/Day Years [...] Rule Out 02/18/2020 02/18/2020 02/18/2020 4:41 PM ENERGY DERIVATIVES TRADER COVID-19 Rule Out 02/27/2021 02/27/2021 02/27/2021 10:40 AM ENERGY DERIVATIVES TRADER COVID-19 Confirmed 02/27/2021 02/27/2021 2 8:17 PM CDT documented as of this encounter Care Teams Fresh Food Manager Relationship Specialty Start Date End Date Tiffanie Mcgovern, INFRASTRUCTURE DIRECTOR, CHOCOLATE MAKER [address] [facility] [place] [address] PCP - General Family Medicine 02/27/21 documented as of this encounter
--- OUTSIDE RECORDS SUMMARY | 2023-11-17 08:34 | XMS_ITS | Encounter Summary ---
Author Organization [facility] Address [address] [place] [address] Care Team Providers Care Test Preparer Name Role Phone Elsewhere, Pcp Primary Care Provider Unavailabl e Encounter Details Date Type Department Care Team (Latest Contact Info) Description 09/26/2023 Clinical Communication Division of Endocrinology in [place], [place] [address] [place] [address] Crystal Le M.D. [address] [place] [address] Social History Tobacco Use Types Packs/Day Years [...] care, and heating? Not very hard 01/15/2023 [facility] [place] of Occupat ional Health - Occupational Stress [...] Sex Assigned at Female 01/15/2023 10:13 AM VETERINARY VIROLOGIST Gender Identity Female 01/15/2023 10:13 AM VETERINARY VIROLOGIST Sexual Orientation Straight 01/15/2023 10 :13 AM VETERINARY VIROLOGIST documented as of this encounter Plan of Treatment Not on file documented as of this encounter Visit Diagnoses Not on filedocumented in this encounter Additional Health Concerns Assessment Noted Time PHQ-9 Depression Total Score: 3 09/15/19 16 2:08 PM CDT documented as of this encounter Care Teams Test Preparer Relationship Specialty Start Date End Date Elsewhere, Pcp PCP - General Internal Medicine 06/18/21 documented as of this encounter
--- OUTSIDE RECORDS SUMMARY | 2023-11-17 08:34 | XMS_ITS | Encounter Summary ---
Author Organization [facility] Address [address] [place] [address] Care Team Providers Care Dryer Operator Name Role Phone Elsewhere, Pcp Primary Care Provider Unavailabl e Encounter Details Date Type Department Care Team (Late st Contact Info) Description 09/19/2023 Clinical Communication Primary Care on Demand at [facility] [place] [facility] [address] [place] [address] Feliciano Robins M.D. [address] [place] [address] Social History Tobacco Use Types [...] often do you attend chur ch or baptist services? More than 4 times per year 06/22/2019 Do you belong to any clubs o r organizations such as presybeterian groups, unions, fraternal or athletic groups, or [...] care, and heating? Not very hard 01/15/2023 [facility] [place] of Occupat ional Health - Occupational Stress [...] Sex Assigned at Female 01/15/2023 10:13 AM GUT SNATCHER Gender Identity Female 01/15/2023 10:13 AM GUT SNATCHER Sexual Orientation Straight 01/15/2023 10 :13 AM GUT SNATCHER documented as of this encounter Plan of Treatment Not on file documented as of this encounter Visit Diagnoses Not on filedocumented in this encounter Additional Health Concerns Assessment Noted Time PHQ-9 Depression Total Score: 3 09/15/19 16 2:08 PM CDT documented as of this encounter Care Teams Dryer Operator Relationship Specialty Start Date End Date Elsewhere, Pcp PCP - General Internal Medicine 06/18/21 documented as of this encounter
--- OUTSIDE RECORDS SUMMARY | 2023-11-17 08:34 | XMS_ITS | Encounter Summary ---
Author Organization [facility] Address [address] [place] [address] Care Team Providers Care Cracker Sprayer Name Role Phone Elsewhere, Pcp Primary Care Provider Unavailabl e Encounter Details Date Type Department Care Team (Late st Contact Info) Description 09/26/2023 Orders Only Division of Endocrinology in [place], [place] [address] [place] [phone] ReyCrystal M.D. [address] [place] [address] Graves' Disease (Primary Dx) Social History Tobacco [...] often do you attend chur ch or temple services? More than 4 times per year [...] care, and heating? Not very hard 01/15/2023 [facility] [place] of Occupat ional Health - Occupational Stress [...] Sex Assigned at Female 01/15/2023 10:13 AM MANAGER LAW Gender Identity Female 01/15/2023 10:13 AM MANAGER LAW Sexual Orientation Straight 01/15/2023 10 :13 AM MANAGER LAW documented as of this encounter Plan of Treatment Not on file documented as of this encounter Results * T4 (Thyroxine), Free (09/30/2023 8:15 AM CDT) T4 (Thyroxine), Free, S 1.1 0.9 - 1.7 ng/dL 09/30/2023 9:25 AM CDT DTL Blood (Blood, Venous) 09/30/2023 8:15 AM CDT 09/30/2023 8:53 AM CDT Narrative Authorizing Provider Result Butch Le M.D. LAB BLOOD ADD-ON Performing Organization Address City/[facility]/ZIP Co de Phone Number [facility] [address] [place] [address], [facility] [address] [place] [address] * S-TSH (Thyroid-Stimulating Hormone - Sensitive) (09/30/2023 8:15 AM CDT) TSH, Sensitive 3.2 0.3 - 4.2 mIU/L 09/30/2023 9:25 AM CDT DTL Blood (Blood, Venous) 09/30/2023 8:15 AM CDT 09/30/2023 8:53 AM CDT Narrative Authorizing Provider Result Butch Le M.D. LAB BLOOD ADD-ON Performing Organization Address City/[facility]/ZIP Co de Phone Number [facility] [address] [place] [address], [facility] DTL [facility] [address] [place] [address] documented in this encounter Visit Diagnoses Diagnosis Graves' Disease- Primary documented in this encounter Additional Health Concerns Assessment Noted Time PHQ-9 Depression Total Score: 3 09/15/19 16 2:08 PM CDT documented as of this encounter Care Teams Cracker Sprayer Relationship Specialty Start Date End Date Elsewhere, Pcp PCP - General Internal Medicine 06/18/21 documented as of this encounter
--- OUTSIDE RECORDS SUMMARY | 2023-11-17 08:34 | XMS_ITS | Encounter Summary ---
Author Organization [facility] er Address [address] [place] [address] Care Team Providers Care Movie Operator Name Role Phone Mynor Mcgovern APRN, CARTON STENCILER Primary Care Provi rajni Reason for Visit * Reason Comments Med Refill Encounter Details Date Type Department Care Team (Late st Contact Info) Description 08/20/2021 Refill [place] [address] [address] Roopa Lopez MD 1705 [facility] 20 [place] [address] GUSTAVO (generalized anxiety disorder) Social History Tobacco [...] disorder documented in this encounter Care Teams Movie Operator Relationship Specialty Start Date End Date Mynor Mcgovern APRN, CARTON STENCILER [address] [place] [address] PCP - General Family Medicine 02/27/21 documented as of this encounter
--- OUTSIDE RECORDS SUMMARY | 2023-11-17 08:34 | XMS_ITS | Encounter Summary ---
Author Organization [facility] Address [address] [place] [address] Care Team Providers Care Garde Manger Name Role Phone Frw, None Primary Care Provider Tiffanie Crow NP Primary Care Provider Encounter Details Date Type Department Care Team (Late st Contact Info) Description 06/07/2004 [facility] in [place] CYANIDE FURNACE OPERATOR [address] [place] [phone] Butch [place] MD Social History Tobacco Use [...] on filedocumented in this encounter Care Teams Garde Manger Relationship Specialty Start Date End Date Frw, None PCP - General 04/02/00 11/07/16 Tiffanie Mcgovern NP [address] [address] PCP - General 07/11/23 documented as of this encounter
--- OUTSIDE RECORDS SUMMARY | 2023-11-17 08:34 | XMS_ITS | Encounter Summary ---
Author Organization [facility] er Address [address] [place] [address] Care Team Providers Care Account General Manager Name Role Phone Tiffanie Mcgovern APRN, REGIONAL OPERATIONS MANAGER Primary Care Provi rajni Reason for Visit * Reason Comments Med Refill Encounter Details Date Type Department Care Team (Late st Contact Info) Description 11/22/2021 Refill [place] [address] [address] Roopa Lopez MD 1705 [facility] 20 [place] [address] Postablative hypothyroidism Social History Tobacco Use Types [...] her refill requests to Dennis Mcgovern in [place]. Pt agreed. * Telephone Encounter - Alyce Shah - 11/26/2021 9:01 AM CDT Noted. * Telephone Encounter - Doris Garcia RN - 11/26/2021 8:34 AM CDT Left message on secured line for patient to contact PCP in [place] for refills and to advise pharmacy of [...] documented in this encounter Care Teams Account General Manager Relationship Specialty Start Date End Date Tiffanie Mcgovern, ENGRAVER COPPERPLATE, REGIONAL OPERATIONS MANAGER [address] [place] [address] PCP - General Family Medicine 02/27/21 documented as of this encounter
--- OUTSIDE RECORDS SUMMARY | 2023-11-17 08:34 | XMS_ITS ---
Author Organization [facility] Address [address] [place] [address] Care Team Providers Care Bus Van Driver Name Role Phone Unavailable Unavailable Unavailable Surgery Details Not on file Complications Check Surgery Details section. Procedure Estimated Blood Loss Check Surgery Details section. Procedure Findings Check Surgery Details section. Procedure Specimens Taken Check Surgery Details section.
--- OUTSIDE RECORDS SUMMARY | 2023-11-17 08:34 | XMS_ITS | Encounter Summary ---
Author Organization [facility] er Address [address] [place] [address] Care Team Providers Care Correctional Corporal Name Role Phone Tiffanie Mcgovern FISH FARM LABORER, GIG TENDER Primary Care Provi rajni Reason for Visit * Reason Comments Med Refill Encounter Details Date Type Department Care Team (Late st Contact Info) Description 09/02/2018 Refill [place]el[place] Guerrero [address] [place] [address] Tiffanie Mcgovern, FISH FARM LABORER, GIG TENDER [address] [place] [phone] Hyperlipidemia, unspecified hyperlipidemia type (Primary Dx) Social [...] Rule Out 02/18/2020 02/18/2020 02/18/2020 4:41 PM SHEETING PULLER COVID-19 Rule Out 02/27/2021 02/27/2021 02/27/2021 10:40 AM SHEETING PULLER COVID-19 Confirmed 02/27/2021 02/27/2021 2 8:17 PM CDT documented as of this encounter Care Teams Correctional Corporal Relationship Specialty Start Date End Date Tiffanie Mcgovern APRN, KYLE [address] [facility] [address] PCP - General Family Medicine 02/27/21 documented as of this encounter
--- OUTSIDE RECORDS SUMMARY | 2023-11-17 08:34 | XMS_ITS | Clinical Summary ---
Author Organization [facility] er Address [address] [place] [address] Care Team Providers Care Title One Reading Teacher Name Role Phone Tiffanie Mcgovern APRN, CHIEF YEOMAN Primary Care Provi rajni Allergies Active Allergy [...] tablet 2 12/30/2022 Active Sodium Chloride-Sodium Bicarb ([place] Saline Nasal Neti Rinse) 1.57 g packIndications:Nasal [...] therapy and states her daughter is a [employer] black trainer. Also trying to lose weight and [...] Next Due Hepatitis B 09/27/2002, 3,05/19/2002,1998 Influenza 6mo-64yrs Quad Pre servative Free IM 01/12/2019,12/17/2016 Influenza, Trivalent, PF 12/22/2009 Tdap 08/29/2017,10/24/2005 Family History Medical History Relation [...] week 12/30/2022 How often do you attend [facility] or mu-ism services? 1 to 4 times per year 12/30/2022 Do you belong to any clubs o r organizations such as pentecostalism groups, unions, fraternal [...] Date Recorded PHQ-9 Total Score 4 12/30/2022 [facility] of Occupat ional Health - Occupational [...] place to sleep or slept in a detention (including now)? No 12/30/2022 Sex and Gender [...] COVID-19 Vaccine (3 - 2022-2 4 season) 2023 05/03/2020, 04/05/2020 Influenza Vaccine (#1) 2023 9, [...] Diagnosis Comments COLOGUARD Routine 05/11/2020 6:30 AM LAB CLERK Well adult exam from Last 3 Months or Most Recently Relevant to Health Maintenance Results * Cologuard (05/11/2020 6:30 AM LAB CLERK) Cologuard result Negative Not Applicable [employer] Comment: A negative result indicates a low [...] Gaona et al, N Engl J Med 2014;370(14):0257-3866) The normal value (reference range) for this assay is negative. COLOGUARD RE-SCREENING RECOMMENDATION: Periodic routine colorectal cancer screening is an important part of preventive healthcare for asymptomatic persons at average risk for colorectal cancer. Following a negative Cologuard result, the [place] Cancer Society and U.S. Multi-Society Task Force screening guidelines recommend a Cologuard re-screening interval of 3 years. References: [place] Cancer Society (ACS). Colorectal cancer prevention and early detection. [place], [place]: [place] Cancer Society; [updated 2015Jul 01]. https://www.cancer.org/cancer/euuti-pgyoiv-towpbh/visxndcbo-unbeeywnn-tqbcbiw/ac s-rec ommendations.html. Accessed November 07, 2017; Jake DK, Clarissa CR, Sung GutierrezK, Colorectal Cancer Screening: Recommendations for Physicians and Patients from the U.S. Multi-Society Task Force on Colorectal Cancer Screening, Am J Gastroenterology 2017; 112:3727-7956. TEST TYPE: Composite algorithmic analysis of stool [...] interval of every 3 years by the [place] Cancer Society and U.S. Multi-Society Task Force. [...] can be accessed at the following location: www.[facility]/results. Additional description of the Cologuard test process, warnings and precautions can be found at www.cologuardtest.com. Rx only. [employer], [address] [place], [address], , Clinical Laboratory Group Leader [employer], BRIANNA HANDY, , CLIA NO: [id number] Stool 05/11/2020 6:30 AM LAB CLERK 05/12/2020 12:30 PM LAB CLERK Catalina Pennington APRN, CHIEF YEOMAN LAB BODY FLUIDS AN D STOOLS ORDERABLES [employer] [address] [place] [address], from Last 3 Months or Most Recently Relevant to Health Maintenance Care Teams Title One Reading Teacher Relationship Specialty Start Date End Date Tiffanie Mcgovern APRN, CHIEF YEOMAN [address] [facility] [place] [address] PCP - General Family Medicine 02/27/21
--- OUTSIDE RECORDS SUMMARY | 2023-11-17 08:34 | XMS_ITS | Referral Summary ---
Author Organization [facility] Address [address] [place] [address] Care Team Providers Care Custodial Supervisor Name Role Phone Elsewhere, Pcp Primary Care Provider Unavailabl e Source Comments Patient records contain information from all sites at [facility]. For routine questions regarding patient records, call [phone] during business hours, M-F 8:00 AM - 5:00 PM Central Time. Record requests for emergency care only can be directed to [phone] at any time.[facility] Encounters Date Type Department Care Team Description 09/30/2023 8:01 AM CDT - 09/30/2023 11:59 PM CDT Hospital Encounter Department of Laboratory Medicine and Pathology, [facility] in [place], [place] [address] [place] [phone] Crystal Le M.D. Graves' Disease Discharge Disposition: Home or Self Care 09/30/2023 10:15 AM CDT Office Visit Division of Endocrinology in [place], [place] [address] [place] [phone] Crystal Le M.D. Graves' Disease (Primary Dx) 09/26/2023 Orders Only Division of Endocrinology in [place], [place] [address] [place] [phone] Crystal Le M.D. Graves' Disease (Primary Dx) 09/26/2023 Clinical Communication Division of Endocrinology in [place], [place] [address] [place] [phone] Crystal Le M.D. 09/19/2023 Clinical Communication Primary Care on Demand at [facility] [address] [facility] [place] [phone] Feliciano Robins M.D. from Last 3 Months Allergies Active Allergy [...] 30 mg by mouth every morning. 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 Major Depressive Disorder, Recurrent, Unspecifie d 04/24/2012 Overview (07/30/2016): Major Depressive Disorder, Recurrent Episode, Unspecified Degree unknown date of dx Aftercare Surgery Injury Immunizations Name Administration Dates Next Due HepB (discontinued) adolesce nt/high risk infant 09/27/2002,08/18/2002,05/19/2002,1998 HepB Adult 09/27/2002, 3,05/19/2002,1998 Influenza, Injectable, Mdck, Quadrivalent 12/05/2022 Influenza, Unspecified 12/04/2022 Tdap 08/29/2017,10/24/2005 influenza trivalent vaccine (6 months and older)(PF) 12/22/2009 influenza vaccine quad (FLUZONE/FLUARIX) (6 months and [...] 06/22/2019 How often do you attend chur or anglican services? More than 4 times per year 06/22/2019 Do you belong to any clubs o r organizations such as episcopal groups, unions, fraternal [...] care, and heating? Not very hard 01/15/2023 [facility] of Occupat ional Health - [...] your living situation today? I have a [facility] place to live 01/15/2023 Education Answer Date Recorded What is the highest level of school you have completed or the highest degree you have received? Associate degree: academic program 06/22/2019 Sex and Gender Information Value Date Recorded Sex Assigned at Female 01/15/2023 10:13 AM STAFFING BRANCH MANAGER Gender Identity Female 01/15/2023 10:13 AM STAFFING BRANCH MANAGER Sexual Orientation Straight 01/15/2023 10 :13 AM STAFFING BRANCH MANAGER Last Filed Vital Signs Vital Sign Reading [...] Routine 09/30/2023 8:15 AM CDT Graves' Disease COMPREHENSIVE METABOLIC PANEL, S/P STAT 06/18/2021 10:34 AM CDT BI BREAST SCREENING BILATERAL RAD - Routine (most inpatients and all outpatients) 11/08/2019 1:20 PM CDT Screening Mammogram Breast Cancer LIPID PANEL, S Routine 06/17/2013 7:55 AM CDT from Last 3 Months or Most Recently Relevant to Health Maintenance Results * S-TSH (Thyroid-Stimulating Hormone - Sensitive) (09/30/2023 8:15 AM CDT) [facility] TSH, Sensitive 3.2 0.3 - 4.2 mIU/L 09/30/2023 9:25 AM CDT DTL Blood (Blood, Venous) 09/30/2023 8:15 AM CDT 09/30/2023 8:53 AM CDT Crystal Le M.D. LAB BLOOD ADD-ON [facility] [address] [place] [address], [facility] [address] [place] [address] * T4 (Thyroxine), Free (09/30/2023 8:15 AM CDT) [facility] T4 (Thyroxine), Free, S 1.1 0.9 - 1.7 ng/dL 09/30/2023 9:25 AM CDT DT Blood (Blood, Venous) 09/30/2023 8:15 AM CDT 09/30/2023 8:53 AM CDT Crystal Le M.D. LAB BLOOD ADD-ON [facility] [address] [place] [address], [facility] [address] [place] [address] * Comprehensive Metabolic Panel (06/18/2021 10:34 AM CDT) [facility] Potassium, P 4.2 3.6 - 5.2 mmol/L 06/18/2021 11:03 AM CDT CNFL Sodium, P 137 135 - 145 mmol/L 06/18/2021 11:03 AM CDT CNFL Chloride, P 102 98 - 107 mmol/L 06/18/2021 11:03 AM CDT CNFL Bicarbonate, P 22 22 - 29 mmol/L 06/18/2021 11:03 AM CDT CNFL Anion Gap, P 13 7 - 15 06/18/2021 11:03 AM CDT CN[facility] BUN (Blood Urea Nitrogen), P 12 6 - 21 mg/dL 06/18/2021 11:03 AM CDT CNFL Creatinine 0.66 0.59 - 1.04 mg/dL 06/18/2021 11:03 AM CDT CNFL eGFR-Black/ >90 >=60 mL/min/BS A 06/18/2021 11:03 AM CDT CNFL Comment: ----ADDITIONAL INFORMATION---- Estimated GFR calculated using the 2009 CKD_EPI creatinine equation. eGFR Non-Black/ >90 >=60 mL/min/BS A 06/18/2021 11:03 AM CDT CNFL Comment: ----ADDITIONAL INFORMATION---- Estimated GFR calculated using the 2009 CKD_EPI creatinine equation. Calcium, Total, P 9.4 8.6 - 10.0 mg/dL 06/18/2021 11:03 AM CDT CNFL Glucose, P 98 70 - 140 mg/dL 06/18/2021 11:03 AM CDT CNFL Protein, Total, P 7.3 6.3 - 7.9 g/dL 06/18/2021 11:03 AM CDT CNFL Albumin, P 4.3 3.5 - 5.0 g/dL 06/18/2021 11:03 AM CDT [facility] Aspartate Aminotransferase (AST), P 24 8 - 43 U/L 06/18/2021 11:03 AM CDT CNFL Alkaline Phosphatase, P 61 35 - 104 U/L 06/18/2021 11:03 AM CDT CNFL Alanine Aminotransferase (ALT), P 19 7 - 45 U/L 06/18/2021 11:03 AM CDT CNFL Bilirubin, Total, P 0.6 <=1.2 mg/dL 06/18/2021 11:03 AM CDT CNFL Blood (Blood, Venous) 06/18/2021 10:34 AM CDT 06/18/2021 10:36 AM CDT Sr N Shanice DEL TORO C.N.P., M.S.N. LAB BLOO D ADD-ON [facility] [address] [place] [address], [facility] CNFL [facility] in [address] [address] * BI Breast Screening Bilateral (11/08/2019 1:20 [...] BI-RADS: 1: Negative. Paul Abarca M.D., Ph.D. G BI ALEXIS FRIED * (ABNORMAL) Lipid Panel (06/17/2013 7:55 AM [...] Recently Relevant to Health Maintenance Care Teams Custodial Supervisor Relationship Specialty Start Date End Date Elsewhere, Pcp PCP - General Internal Medicine 06/18/21
--- OUTSIDE RECORDS SUMMARY | 2023-11-17 08:34 | XMS_ITS | Encounter Summary ---
Author Organization [facility] Address [address] [place] [address] Care Team Providers Care Private Duty Lpn Name Role Phone Elsewhere, Pcp Primary Care Provider Unavailabl e Reason for Referral * Outpatient (Routine) - Authorized Specialty Diagnoses / Procedures Referred By Tyrone ogden Referred To Contact Ophthalmology Diagnoses Graves' Disease Crystal Le M.D. [address] [place] [phone] [facility] Referral ID Status Reason Start Date Expiration Date V isits Requested Visits Authorized [id number] Authorized 09/30/2023 03/31/2025 1 1 Scheduling Instructions Please bunch when she is here for Rheum appts in Jan 2024. 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 [address] [place] [address] [place] [phone] Referral ID Status Reason Start Date Expiration Date Visits Re quested Visits Authorized [id number] Closed 09/02/2023 09/01/2024 1 1 Encounter Details Date Type Department Care Team (Latest Contact Info) Description 09/30/2023 10:15 AM CDT Office Visit Division of Endocrinology in [place], [place] [address] [place] [phone] Crystal Le M.D. [address] [place] [address] Graves' Disease (Primary Dx) Social History Tobacco [...] often do you attend chur ch or spiritism services? More than 4 times per year 06/22/2019 Do you belong to any clubs o r organizations such as yazidi groups, unions, fraternal [...] care, and heating? Not very hard 01/15/2023 [facility] [place] of Occupat ional Health - Occupational Stress [...] your living situation today? I have a [facility] place to live 01/15/2023 Education Answer Date Recorded What is the highest level of school you have completed or the highest degree you have received? Associate degree: academic program 06/22/2019 Sex and Gender Information Value Date Recorded Sex Assigned at Female 01/15/2023 10:13 AM LOGISTICS MANAGER Gender Identity Female 01/15/2023 10:13 AM LOGISTICS MANAGER Sexual Orientation Straight 01/15/2023 10 :13 AM LOGISTICS MANAGER documented as of this encounter Last Filed [...] and plan. She is a 52yof from [place], [place]. She has h/o Graves treated c [...] documented as of this encounter Care Teams Private Duty Lpn Relationship Specialty Start Date End Date Elsewhere, Pcp PCP - General Internal Medicine 06/18/21 documented as of this encounter
--- OUTSIDE RECORDS SUMMARY | 2023-11-17 08:34 | XMS_ITS | Encounter Summary ---
Author Organization [facility] Address [address] [place] [address] Care Team Prov[address] Care [address] Scientist Name Role Phone Elsewhere, Pcp Primary Care Provider Unavailabl e Encounter Details Date Type Department Care Team (Latest Contact Info) Description 09/30/2023 8:01 AM CDT - 09/30/2023 11:59 PM CDT Hospital Encounter Department of Laboratory Medicine and Pathology, [facility] in [place], [place] [address] [place] [address] Rey, Crystal Butts M.D. [address] [place] [address] Graves' Disease Discharge Disposition: Home or Self [...] often do you attend chur ch or bahai services? More than 4 times per year [...] care, and heating? Not very hard 01/15/2023 [facility] - Occupational [...] Sex Assigned at Female 01/15/2023 10:13 AM STRING CUTTER Gender Identity Female 01/15/2023 10:13 AM STRING CUTTER Sexual Orientation Straight 01/15/2023 10 :13 AM STRING CUTTER documented as of this encounter Medications at [...] Result Butch Le M.D. LAB BLOOD ADD-ON [facility] [address] [place] [address], [facility] [address] [place] [address] * S-TSH (Thyroid-Stimulating Hormone - Sensitive) (09/30/2023 8:15 AM CDT) TSH, Sensitive 3.2 0.3 - 4.2 mIU/L 09/30/2023 9:25 AM CDT DTL Blood (Blood, Venous) 09/30/2023 8:15 AM CDT 09/30/2023 8:53 AM CDT Crystal Le M.D. LAB BLOOD ADD-ON [facility] [address] [place] [address], [facility] DTL [facility] [address] [place] [address] documented in this encounter Visit Diagnoses Diagnosis Graves' Disease documented in this encounter Additional Health Concerns Assessment Noted Time PHQ-9 Depression Total Score: 3 09/15/19 16 2:08 PM CDT documented as of this encounter Care Teams Rd Scientist Relationship Specialty Start Date End Date Elsewhere, Pcp PCP - General Internal Medicine 06/18/21 documented as of this encounter
--- OUTSIDE RECORDS SUMMARY | 2023-11-17 08:34 | XMS_ITS | Clinical Summary ---
Author Organization [facility] Address [address] [place] [address] Care Team Providers Care Plasterer Apprentice Name Role Phone Elsewhere, Pcp Primary Care Provider Unavailabl e Source Comments Patient records contain information from all sites at [facility]. For routine questions regarding patient records, call [phone] during business hours, M-F 8:00 AM - 5:00 PM Central Time. Record requests for emergency care only can be directed to [phone] at any time.[facility] Allergies Active Allergy Reactions Criticality Noted Date [...] CDT Office Visit Division of Endocrinology in [place], [place] [address] [place] [phone] Crystal Le M.D. Graves' Disease (Primary Dx) 09/30/2023 8:01 AM CDT - 09/30/2023 11:59 PM CDT Hospital Encounter Department of Laboratory Medicine and Pathology, [facility], in [place], [place] [address] [place] [address] Crystal Le M.D. Graves' Disease Discharge Disposition: Home or Self Care 09/26/2023 Orders Only Division of Endocrinology in [place], [place] [address] [place] [address] Crystal Le M.D. Graves' Disease (Primary Dx) 09/26/2023 Clinical Communication Division of Endocrinology in [place], [place] [address] [place] [address] Crystal Le M.D. 09/19/2023 Clinical Communication Primary Care on Demand at [address] [facility] [place] [place] [phone] Feliciano Robins M.D. from Last 3 Months Immunizations Name Administration [...] Status Comments Brother 1 Spencer Brother 2 Conradodena Machadoek Cousin Other Father Carlos Miller Mother Shelia Miller Sister 1 Sister 2 Nuria Jurtiffanie Social History Tobacco Use Types Packs/Day Years [...] How often do you attend chur or christian services? More than 4 times per year 06/22/2019 Do you belong to any clubs o r organizations such as alevism groups, unions, fraternal [...] care, and heating? Not very hard 01/15/2023 [facility] - Occupational Stress Questionnaire Answer Date [...] your living situation today? I have a [facility] place to live 01/15/2023 Education Answer Date Recorded What is the highest level of school you have completed or the highest degree you have received? Associate degree: academic program 06/22/2019 Sex and Gender Information Value Date Recorded Sex Assigned at Female 01/15/2023 10:13 AM LUGGAGE MAKER Gender Identity Female 01/15/2023 10:13 AM LUGGAGE MAKER Sexual Orientation Straight 01/15/2023 10 :13 AM LUGGAGE MAKER Last Filed Vital Signs Vital Sign Reading [...] 11/07/2020 11/08/2019, 10/09, 10/27/2018, Additional history exists Cologuard 05/12/2023 05/11/2020 Colorectal Cancer Screening 05/12/2023 COVID-19 Vaccine ( season) 2023 05/03/2020, 04/05/2020 Influenza Vaccine (#1) 2023 , 12/04/2022, 01/12/2019, [...] Hormone - Sensitive) (09/30/2023 8:15 AM CDT) [facility] TSH, Sensitive 3.2 0.3 - 4.2 mIU/L 09/30/2023 9:25 AM CDT DT Blood (Blood, Venous) 09/30/2023 8:15 AM CDT 09/30/2023 8:53 AM CDT Crystal Le M.D. LAB BLOOD ADD-ON Performing Organization Address City/[facility]/ZIP Co de Phone Number [facility] [address] [place] [address] * T4 (Thyroxine), Free (09/30/2023 8:15 AM CDT) [facility] T4 (Thyroxine), Free, S 1.1 0.9 - 1.7 ng/dL 09/30/2023 9:25 AM CDT DT Blood (Blood, Venous) 09/30/2023 8:15 AM CDT 09/30/2023 8:53 AM CDT Crystal Le M.D. LAB BLOOD ADD-ON [facility] [address] [place] [address] * Comprehensive Metabolic Panel (06/18/2021 10:34 AM CDT) [facility] Potassium, P 4.2 3.6 - 5.2 mmol/L [...] 10:34 AM CDT 06/18/2021 10:36 AM CDT Remberto Prasad APRN, C.N.P., M.SMargaret. LAB BLOO D ADD-ON [facility] [address] [place] [id number], [facility] CNFL in [address] [address] * BI Breast Screening Bilateral (11/08/2019 1:20 [...] Negative. Paul Abarca M.D., Ph.D. G BI PROCEDUR ES * (ABNORMAL) Lipid Panel [...] Recently Relevant to Health Maintenance Care Teams Plasterer Apprentice Relationship Specialty Start Date End Date Elsewhere, Pcp PCP - General Internal Medicine 06/18/21
--- OUTSIDE RECORDS SUMMARY | 2023-11-17 08:34 | XMS_ITS | Encounter Summary ---
Author Organization [facility] er Address [address] [place] [address] Care Team Providers Care Structural Steel Painter Name Role Phone Tiffanie Mcgovern APRN, PICKING SUPERVISOR Primary Care Provi rajni Reason for Visit * Reason Comments Med Refill Encounter Details Date Type Department Care Team (Late st Contact Info) Description 12/28/2019 Refill [facility]ology [address] [place] [address] Valerie Major MD [address] [place] [phone] Edema, unspecified type Social History Tobacco Use [...] Rule Out 02/18/2020 02/18/2020 02/18/2020 4:41 PM PROFESSIONAL ATHLETES COACH COVID-19 Rule Out 02/27/2021 02/27/2021 02/27/2021 10:40 AM PROFESSIONAL ATHLETES COACH COVID-19 Confirmed 02/27/2021 02/27/2021 2 8:17 PM CDT documented as of this encounter Care Teams Structural Steel Painter Relationship Specialty Start Date End Date Tiffanie Mcgovern, CITRIX ADMINISTRATOR, PICKING SUPERVISOR [address] [place] [address] PCP - General Family Medicine 02/27/21 documented as of this encounter
== END 2023-11-17 08:31 | disposition home or self-care (01) ==
PROVIDERS: PCP Nurse Practitioner Family; Visit Provider Nurse Practitioner Family
DX: Z00.00 Encounter for general adult medical examination without abnormal findings (principal); E03.9 Hypothyroidism, unspecified; I10 Essential (primary) hypertension; E66.9 Obesity, unspecified; Z13.6 Encounter for screening for cardiovascular disorders; Z13.21 Encounter for screening for nutritional disorder
CPT/HCPCS: 80053; 80061; 82306; 84443; 85025

== ENCOUNTER 2024-04-12 15:19 | Outpatient (CLI) | payer OTHER, SELFPAY | END 2024-04-12 15:20 | disposition home or self-care (01) | PROVIDERS: PCP Nurse Practitioner Family; Visit Provider Nurse Practitioner Family | DX: R19.7 Diarrhea, unspecified (principal); R53.83 Other fatigue; Z13.1 Encounter for screening for diabetes mellitus | CPT/HCPCS: 80053; 81001; 85025; 85651; 86140; 87045; 87046; 87086; 87177; 87209; 87425; 87427; 87493 ==

== ENCOUNTER 2024-05-06 15:09 | Outpatient (CLI) | payer OTHER, SELFPAY | END 2024-05-06 15:10 | disposition home or self-care (01) | PROVIDERS: PCP Nurse Practitioner Family; Visit Provider Nurse Practitioner Family | DX: R19.7 Diarrhea, unspecified (principal) | CPT/HCPCS: 80053; 85025; 86231; 86258; 86364 ==